=== PATIENT | female | born 1955 | race Caucasian/White ===

== ENCOUNTER 2018-01-06 14:58 | Outpatient (REF) | payer MEDICARE, SELFPAY ==
[2018-01-06 20:01] LABS: Cholesterol 143 mg/dL (50-200); HDL Cholesterol 53 mg/dL (40-60); LDL CHOLESTEROL 66 mg/dL (<100); TSH (W/Ref FT4) 0.36 uIU/mL (0.358-3.74); Triglyceride 160 mg/dL (30-150)
== END 2018-01-06 15:18 ==
LOC: NCHCN 14:58
PROVIDERS: PCP Family Medicine; Visit Provider Family Medicine
DX: E10.65 Type 1 diabetes mellitus with hyperglycemia (principal); E78.5 Hyperlipidemia, unspecified; E03.9 Hypothyroidism, unspecified
CPT/HCPCS: 80061; 83721; 84443

== ENCOUNTER 2018-04-26 16:31 | Outpatient (REF) | payer MEDICARE, SELFPAY ==
--- NOTE | 2018-04-26 14:45 | PAPFT_PTH ---
PATIENT: Roxann Baxter LOC: [facility] U#:[id number] AGE/SX: 62/F ROOM: RE04/26/[address]: Nayla Miramontes : 1955 BED: DIS: 04/26/2018 SPEC #: [id number] RECD: 04/26/18 18:27 STATUS: STAN RERajeev #: [id number] VINCE: 04/26/18 14:[address]: Nayla Miramontes [facility] Cytology RECD BY: Gale Funk Tissues: 1 - CX/ENDOCX FOR PAP SMEARS Procedures: PAP THIN PREP/UVM Screening HPV DNA PROBE Comments: [id number]
[2018-04-26 19:37] LABS: HCT 41.3 % (36.0-46.0); HGB 13.7 g/dL (12.0-15.5); Mean Corp. HGB Concentration 33.2 g/dL (32.0-36.0); Mean Corpuscular Hemoglobin 30.4 pg (27.0-33.0); Mean Corpuscular Volume 91.8 fL (80-95); Mean Platelet Volume 9.7 fL (8.0-11.0); Platelet Count 239 x1000/uL (130-400); White Blood Cell Count 5.14 k/cumm (4.4-10.8)
[2018-04-26 20:08] LABS: ALT 24 U/L (12-78); AST 19 U/L (15-37); Albumin 3.8 g/dL (3.4-5.0); Alkaline Phosphatase 52 U/L (46-116); Anion Gap 3.8 mmol/L (3-11); BUN 10 mg/dL (7-18); Bilirubin, Total 0.8 mg/dL (0.2-1.0); CO2 32.2 mmol/L (21.0-32.0); CREATININE 0.87 mg/dL (0.55-1.02); Calcium 8.8 mg/dL (8.5-10.1); Chloride 100 mmol/L (98-107); Ferritin 62 ng/mL (8-388); Folate 12.4 ng/mL (8.6-20.0); Glucose 245 mg/dL (70-100); Potassium 4.1 mmol/L (3.5-5.1); Sodium 136 mmol/L (136-145); TSH (W/Ref FT4) 1.43 uIU/mL (0.358-3.74); Total Protein 7.5 g/dL (6.4-8.2); Vitamin B12 714 pg/mL (193-986)
== END 2018-04-26 16:51 ==
LOC: NCHCN 16:31
PROVIDERS: PCP Family Medicine; Visit Provider Family Medicine
DX: I10 Essential (primary) hypertension (principal); D64.9 Anemia, unspecified; E10.65 Type 1 diabetes mellitus with hyperglycemia; G25.81 Restless legs syndrome; E03.9 Hypothyroidism, unspecified; Z12.4 Encounter for screening for malignant neoplasm of cervix; Z11.51 Encounter for screening for human papillomavirus (HPV)
CPT/HCPCS: 80053; 85027; 88142; 82607; 82728; 82746; 84443; 87624

== ENCOUNTER 2018-05-11 00:34 | Outpatient (CLI) | payer MEDICARE, SELFPAY ==
--- NOTE | 2018-05-11 16:32 | DI.MAMMO_ITS ---
SYMPTOM/DIAGNOSIS: SCREENING, Z12.39 MAMMOGRAMS: Mammograms were interpreted according to the usual protocol including computer analysis with CAD system, tomosynthesis and C view imaging. Comparison is made with exams from [id number]. The breasts are composed of scattered fibroglandular densities, breast density, Category B. No suspicious masses or suspicious microcalcifications are seen. There has been no significant change. IMPRESSION: Category 1, negative mammogram. Yearly screening mammography is recommended. [facility] ASSESSMENT OF FINDINGS: Negative. Category 1. Patient will receive a letter notifying them of these results. BI-RADS category B. There are scattered areas of fibroglandular density.
== END 2018-05-11 00:54 ==
PROVIDERS: PCP Family Medicine; Visit Provider Family Medicine
DX: Z12.31 Encounter for screening mammogram for malignant neoplasm of breast (principal)
CPT/HCPCS: 77063; 77067

== ENCOUNTER 2018-08-16 12:11 | Outpatient (REF) | payer MEDICARE, SELFPAY ==
[2018-08-16 13:50] LABS: COMMENT (LAB VIEW ONLY) 187.61 mg/dL; Microalb ug/mg Crea 6.3 ug/mg Cr
== END 2018-08-16 12:31 ==
LOC: NCHCN 12:11
PROVIDERS: PCP Family Medicine; Visit Provider Family Medicine
DX: E10.65 Type 1 diabetes mellitus with hyperglycemia (principal)
CPT/HCPCS: 82043; 82570

== ENCOUNTER 2019-04-05 18:25 | Outpatient (REF) | payer MEDICARE, SELFPAY ==
[2019-04-05 19:07] LABS: ALT 30 U/L (14-59); AST 23 U/L (15-37)
[2019-04-05 19:40] LABS: Hemoglobin A1C 8.8 % (3.8-5.6)
== END 2019-04-05 18:45 ==
LOC: NCHCN 18:25
PROVIDERS: PCP Family Medicine; Visit Provider Nurse Practitioner Psychiatric/Mental Health
DX: E10.65 Type 1 diabetes mellitus with hyperglycemia (principal); Z51.81 Encounter for therapeutic drug level monitoring
CPT/HCPCS: 83036; 84450; 84460

== ENCOUNTER 2019-11-04 18:05 | Outpatient (REF) | payer MEDICARE, SELFPAY ==
[2019-11-04 19:58] LABS: ALT 20 U/L (14-59); AST 18 U/L (15-37); Albumin 3.5 g/dL (3.4-5.0); Alkaline Phosphatase 49 U/L (46-116); Anion Gap 4.8 mmol/L (3-11); BUN 12 mg/dL (7-18); Bilirubin, Total 0.8 mg/dL (0.2-1.0); CO2 32.2 mmol/L (21.0-32.0); CREATININE 0.87 mg/dL (0.55-1.02); Chloride 102 mmol/L (98-107); Glucose 278 mg/dL (74-106); Potassium 4.9 mmol/L (3.5-5.1); Sodium 139 mmol/L (136-145); TSH (W/Ref FT4) 1.43 uIU/mL (0.36-3.74); Total Protein 6.5 g/dL (6.4-8.2)
[2019-11-04 19:59] LABS: COMMENT (LAB VIEW ONLY) 124.42 mg/dL; Microalb ug/mg Crea 15.8 ug/mg Cr
[2019-11-07 05:25] LABS: Vitamin D 25 Total 56.9 ng/ml (30-100)
== END 2019-11-04 18:25 ==
LOC: NCHCN 18:05
PROVIDERS: PCP Family Medicine; Visit Provider Family Medicine
DX: E10.65 Type 1 diabetes mellitus with hyperglycemia (principal); M54.5 Low back pain; E03.9 Hypothyroidism, unspecified; E55.9 Vitamin D deficiency, unspecified
CPT/HCPCS: 80053; 82306; 82043; 82570; 84443

== ENCOUNTER 2019-12-03 15:24 | Emergency (ER) | payer MEDICARE, SELFPAY ==
[2019-12-03 15:31] VITALS: BP 142/50; PULSE 72; RESP 16; TEMP 36.9; O2SAT 6
--- NOTE | 2019-12-03 15:49 | ED.GENADUL_ITS ---
Discharge Plan Disposition Patient Disposition: HOME Condition: Stable Discharge Details Chief Complaint: Orthopedic Clinical Impression: Sprain of fifth toe of right foot Primary Care Provider: Nayla Miramontes ED Provider: Albert Hurtado Home Meds and New Rx's Prescriptions: Continued polyethylene glycol 3350 [Miralax] 17 GM powder in packet 17 gm PO PRN PRNRF: 0 magnesium hydroxide [Milk of Magnesia] 400 MG/5 ML suspension 30 ml PO DAILY RF: 0 bisacodyl 10 MG suppository 10 mg RC PRN PRNRF: 0 celecoxib [Celebrex] 100 MG capsule 100 mg PO BID RF: 0 trimethobenzamide [Tigan] 300 MG capsule 300 mg PO QID RF: 0 Humalog U-100 Insulin 100 UNIT/1 ML cartridge RF: 0 cholecalciferol (vitamin D3) [Vitamin D3] 2,000 UNIT capsule 2,000 unit PO DAILY RF: 0 levothyroxine [Synthroid] 50 MCG tablet 175 mcg PO DAILY RF: 0 lisinopril 5 MG tablet 10 mg PO DAILY RF: 0 (DME) subcutaneous insulin pump [Insulin Pump OF1996] 1 EACH misc 1 units SQ DIRECTED RF: 0 gabapentin 400 MG capsule 600 mg PO DAILY RF: 0 Humalog U-100 Insulin 100 UNIT/ML cartridge 0 - 50 units SQ DIRECTED RF: 0 Glucagon Emergency Kit (human) 1 MG kit 1 mg IV PRN PRNRF: 0 Vitamin D3 (calcium cit-phos) 1 EACH tablet 2,000 units PO DAILY RF: 0 melatonin 3 MG tablet 9 mg PO HS RF: 0 ondansetron [Zofran ODT] 4 MG tablet,disintegrating 4 mg PO PRN PRNRF: 0 albuterol sulfate [ProAir HFA] 8.5 GM HFA aerosol inhaler 2 inh Inhalation Q4H PRN PRN (Reason: Wheezing) Qty: 1 RF: 0 Discharge Instructions Additional Instructions: Keep injured toe frida taped to adjacent toe to provide splinting. Minimize activities that cause pain. Please contact your primary care physician to arrange follow-up. Be sure to discuss results of your x-ray including incidentally noted peripheral arterial disease. Return to the ER for any worsening or new concerning symptoms. Referrals: Nayla Miramontes MD [Primary Care Provider] - Medical Decision Making 64-year-old female presents 1 day after stubbing her right fifth toe with pain and swelling. Tender at [facility]TP with bruising noted. Consider toe fracture versus sprain. Offered analgesic and patient declined. X-ray of the toe was reviewed and interpreted by radiology: No fracture or acute abnormality. Incidentally noted peripheral arterial disease. Results reviewed with the patient. Patient instructed to follow-up with PCP. Toe was frida taped to adjacent toe to provide splinting. HPI General Mode of arrival: ambulatory . Date/Time Provider Initiated Documentation: 12/03/19 15:45 . Limitations to Documentation: no limitations . Information obtained by: patient . HPI Narrative: 64-year-old female presents with chief complaint of toe pain. Pain is localized to right fifth toe. Patient notes yesterday she stubbed her toe when her foot slipped and impacted her car tire. Toe was throbbing this morning. She has associated discoloration of the toe and swelling. Pain is not worse with ambulation. Related Data Home Medications Medication Instructions Recorded Confirmed levothyroxine [Synthroid] 175 mcg PO DAILY 01/14/13 12/03/19 lisinopril 10 mg PO DAILY 01/14/13 12/03/19 subcutaneous insulin pump [Insulin 01/14/13 07/08/16 Pump [id number]] Glucagon Emergency Kit (human) 1 mg IV PRN PRN 01/18/13 12/03/19 Humalog U-100 Insulin 0 - 50 units SQ DIRECTED 01/18/13 12/03/19 Vitamin D3 (calcium cit-phos) 2,000 units PO DAILY 01/18/13 12/03/19 gabapentin 600 mg PO DAILY 01/18/13 12/03/19 melatonin 9 mg PO HS 09/27/13 12/03/19 ondansetron [Zofran ODT] 4 mg PO PRN PRN 09/27/13 12/03/19 Humalog U-100 Insulin 08/08/15 bisacodyl 10 mg RC PRN PRN supp.rect 08/08/15 12/03/19 celecoxib [Celebrex] 100 mg PO BID tab-cap 08/08/15 12/03/19 cholecalciferol (vitamin D3) 2,000 unit PO DAILY 08/08/15 12/03/19 [Vitamin D3] magnesium hydroxide [Milk of 30 ml PO DAILY ml 08/08/15 12/03/19 Magnesia] polyethylene glycol 3350 [Miralax] 17 gm PO PRN PRN gm 08/08/15 12/03/19 trimethobenzamide [Tigan] 300 mg PO QID tab-cap 08/08/15 12/03/19 albuterol sulfate [ProAir HFA] 2 inh INHALATION Q4H PRN PRN #1 07/12/16 12/03/19 [email or web address] Previous Rx's Medication Instructions Recorded albuterol sulfate [ProAir HFA] 2 inh INHALATION Q4H PRN PRN #1 07/12/16 [email or web address] Allergies Allergy/AdvReac Type Severity Reaction Status Date / Time No Known Allergies Allergy Unverified 12/03/19 15:34 General Stated Complaint: Orthopedic OLINDA: 4 Review of Systems Musculoskeletal Musculoskeletal: Reports as per HPI Integumentary/Breasts Skin/Breast: Reports other (No laceration) [facility] Surgical History section Social History Smoking/Tobacco Use Status: Former Tobacco Use Alcohol Intake: current Alcohol Intake frequency: holidays/special occasions only Drug use: Never Do you feel safe at home: Yes Do you feel safe in your relationship?: Yes Exam Const General: cooperative and no acute distress Neuro General: patient alert, patient awake and tone normal Extrem Right lower extremity: normal capillary refill and foot (Bruising 5th toe, mild swelling, no deformity) Details: tenderness Location: of another digit Location: the 5th digit (At [facility]TP and distally) Other: Right fifth: distal sensation intact distal motor intact Course Vital Signs Vital signs: Vital Signs Temperature 36.9 C 12/03/19 15:31 Pulse 72 12/03/19 15:31 Respiratory Rate 16 12/03/19 15:31 Blood Pressure 142/50 H 12/03/19 15:31 Pulse Oximetry 6 L 12/03/19 15:31 Temperature 36.9 C 12/03/19 15:31 Temperature Source Skin 12/03/19 15:31 Pulse 72 12/03/19 15:31 Respiratory Rate 16 12/03/19 15:31 Respiratory Effort Non-Labored 12/03/19 15:33 Blood Pressure 142/50 H 08/29/20 15:31 Blood Pressure Position Sitting 12/03/19 15:31 Pulse Oximetry 6 L 12/03/19 15:31 Oxygen Delivery Method Room Air 12/03/19 15:31 Oxygen Flow Rate 0 12/03/19 15:31 Pain Level 7 12/03/19 15:38
--- NOTE | 2019-12-03 15:55 | DI.RAD_ITS ---
EXAM: XR FOOT RT COMPLETE CLINICAL HISTORY: 5th toe. TECHNIQUE: 2D digital imaging was performed. COMPARISON: No exams were available for comparison FINDINGS: BONES: No acute fracture is present. No bony destructive lesion is seen. JOINTS: No dislocation present. SOFT TISSUE: Vascular calcification. IMPRESSION: No acute fracture or dislocation. DATA REPOSITORY: RADIATION DOSE DELIVERED:
--- NOTE | 2019-12-03 16:08 | DI.VRAD_ITS ---
PROCEDURE INFORMATION: Exam: XR Right Foot Complete Exam date and time: 12/03/2019 3:55 PM Age: 64 years old Clinical indication: Other: 5th toe; Additional info: Patient stubbed 5th toe on tire late yesterday. Pain, red and bruising on 5th toe TECHNIQUE: Imaging protocol: XR Right foot. Views: 3 or more views. COMPARISON: No relevant prior studies available. FINDINGS: Bones/joints: Normal mineralization and alignment. No fracture, degenerative spur, osseous erosion or other deformity. Soft tissues: Normal. Vasculature: Peripheral vascular calcification. IMPRESSION: No fracture or acute abnormality. Incidentally noted peripheral arterial disease. Dictated and Authenticated by: Gregg Boo MD. Ordering:LULA Price MD
== END 2019-12-03 16:36 | disposition home or self-care (01) ==
PROVIDERS: Emergency Provider Student in an Organized Health Care Education/Training Program; PCP Family Medicine
DX: S93.524A Sprain of metatarsophalangeal joint of right lesser toe(s), initial encounter (principal); W22.09XA Striking against other stationary object, initial encounter
CPT/HCPCS: 99283; 73630

== ENCOUNTER 2020-03-14 18:12 | Outpatient (REF) | payer MEDICARE, SELFPAY ==
[2020-03-17 10:00] LABS: COVID-19 RT-PCR Result NEGATIVE (Negative)
== END 2020-03-14 18:32 ==
LOC: NCHCN 18:12
PROVIDERS: PCP Family Medicine; Visit Provider Physician Assistant
DX: Z20.828 Contact with and (suspected) exposure to other viral communicable diseases (principal)
CPT/HCPCS: U0003

== ENCOUNTER 2020-05-02 16:36 | Outpatient (REF) | payer MEDICARE, SELFPAY ==
[2020-05-02 20:19] LABS: TSH (W/Ref FT4) 4.75 uIU/mL (0.36-3.74)
[2020-05-02 20:42] LABS: FREE T4 1.02 ng/dL (0.76-1.46)
== END 2020-05-02 16:56 ==
LOC: NCHCN 16:36
PROVIDERS: PCP Family Medicine; Visit Provider Family Medicine
DX: E03.9 Hypothyroidism, unspecified (principal)
CPT/HCPCS: 84439; 84443

== ENCOUNTER 2021-02-06 15:26 | Outpatient (REF) | payer MEDICARE, SELFPAY ==
[2021-02-08 14:24] LABS: COVID-19 RT-PCR UVMMC Result Negative (Negative)
== END 2021-02-06 15:27 | disposition home or self-care (01) ==
LOC: NCHCN 15:26
PROVIDERS: PCP Family Medicine; Visit Provider Family Medicine
DX: Z20.822 Contact with and (suspected) exposure to COVID-19 (principal); J06.9 Acute upper respiratory infection, unspecified
CPT/HCPCS: U0003; U0005

== ENCOUNTER → 2021-06-27 02:35 | Outpatient (CLI) | payer MEDICARE, SELFPAY | PROVIDERS: PCP Family Medicine; Visit Provider Family Medicine ==

== ENCOUNTER → 2021-09-06 00:02 | Outpatient (CLI) | payer MEDICARE, SELFPAY | PROVIDERS: PCP Family Medicine; Visit Provider Family Medicine ==

== ENCOUNTER 2021-11-01 17:48 | Outpatient (REF) | payer MEDICARE, SELFPAY | END 2021-11-01 17:49 | disposition home or self-care (01) | LOC: LBN 17:48 | PROVIDERS: PCP Family Medicine; Visit Provider Family Medicine ==

== ENCOUNTER → 2021-12-19 02:23 | Outpatient (CLI) | payer MEDICARE, SELFPAY ==
--- NOTE | 2021-12-19 | DI.DEXA_ITS ---
Exam(s) XR DEXA BONE DENSITY W/WO DAYANA EXAM: XR DEXA BONE DENSITY W/WO DAYANA CLINICAL HISTORY: SCREENING FOR OSTEOPOROSIS IN POSTMENOPAUSAL WOMAN, Z78.0 TECHNIQUE: COMPARISON: No exams were available for comparison FINDINGS: Lateral Spine Image: Unremarkable. No compression deformities identified. Left hip: Total T-Score: -0.4 Total Z-Score: 0.9 T- and Z-scores: Within normal limits. Lumbar Spine: Total T-Score: 0.2 Total Z-Score: 2.1 T- and Z-scores: Within normal limits. IMPRESSION: No evidence of osteoporosis.
== END ==
PROVIDERS: PCP Family Medicine; Visit Provider Family Medicine
DX: Z78.0 Asymptomatic menopausal state (principal); Z13.820 Encounter for screening for osteoporosis
CPT/HCPCS: 77080

== ENCOUNTER → 2021-12-20 00:45 | Outpatient (CLI) | payer MEDICARE, SELFPAY ==
--- NOTE | 2021-12-20 14:45 | DI.MAMMO_ITS ---
Exam(s) MAMMO SCREENING EXAM: MAMMO SCREENING CLINICAL HISTORY: SCREENING, Z12.39. TECHNIQUE: Bilateral full field digital CC and MLO mammographic images were obtained with 3D tomosyn thesis and utilizing computer aided detection (CAD). COMPARISON: Prior mammograms were reviewed, the most recent being May 2018. FINDINGS: There has been no significant change appearance and distribution of the fibroglandular tissue. Asymmetric tissue in both breasts remains unchanged from prior studies. There are no new spiculated masses nor malignant appearing microcalcification groups. There is no significant architectural distortion nor skin thickening-retraction. IMPRESSION: No radiographic evidence of malignancy. BI-RADS Category 1 - Negative Breast Density - Category B - Scattered areas of fibroglandular density Breast density Category C or D implies that the patient has dense breast tissue. Dense breast tissue can make it harder to find cancer on a mammogram. Dense breast tissue is also associated with an incr eased risk of breast cancer. This information about the result of the mammogram report was provided to the patient to raise their awareness. Use this report when you speak with the patient about their risks for breast cancer, which includes their family history. At that time, you may recommend additional screening tests (Ultrasoun d or MRI) as these tests may add significant information. A negative radiographic report should not delay biopsy if a dominant or clinically suspicious mass is present. Up to ten percent of cancers are not identified on mammography. A negative report may reinforce clinical impression. Adenosis and dense breasts may obscure an underlying neoplasm. False positive reports average 6 to 10%. Patient will receive a letter notifying them of these results.
== END ==
PROVIDERS: PCP Family Medicine; Visit Provider Family Medicine
DX: Z12.31 Encounter for screening mammogram for malignant neoplasm of breast (principal); R92.8 Other abnormal and inconclusive findings on diagnostic imaging of breast; Z78.0 Asymptomatic menopausal state
CPT/HCPCS: 77063; 77067

== ENCOUNTER 2022-01-03 15:18 | Outpatient (REF) | payer MEDICARE, SELFPAY ==
[2022-01-03 20:35] LABS: TSH (W/Ref FT4) 0.04 uIU/mL (0.36-3.74)
[2022-01-03 21:31] LABS: FREE T4 1.37 ng/dL (0.76-1.46)
[2022-01-06 10:20] LABS: HIV-1/2 Ag & Ab Screen Negative (Negative)
== END 2022-01-03 15:19 | disposition home or self-care (01) ==
LOC: NCHCN 15:18
PROVIDERS: PCP Family Medicine; Visit Provider Family Medicine
DX: E03.9 Hypothyroidism, unspecified (principal); Z11.4 Encounter for screening for human immunodeficiency virus [HIV]
CPT/HCPCS: 87389; 84439; 84443

== ENCOUNTER 2022-01-26 14:40 | Emergency (ER) | payer MEDICARE, SELFPAY ==
[2022-01-26 14:46] VITALS: BP 185/61; PULSE 78; RESP 22; TEMP 36.4; O2SAT 99
[2022-01-26 15:13] VITALS: RESP 20
[2022-01-26 15:14] LABS: Bilirubin Negative (Negative); Blood Negative (Negative); Clarity Clear (Clear); Glucose Negative (Negative); Ketones Negative (Negative); Leukocyte Esterase Negative (Negative); Nitrite Negative (Negative); Specific Gravity >= 1.030 (1.005-1.025); Urobilinogen 0.2 EU/dL (Up TO 0.2); pH 6.5 (5-8)
--- NOTE | 2022-01-26 15:15 | DI.RAD_ITS ---
Exam(s) XR PORTABLE CHEST AP EXAM: XR PORTABLE CHEST AP CLINICAL HISTORY: cough, confusion, + COv19. TECHNIQUE: 2D digital imaging was performed. COMPARISON: CR CHEST 2 VIEWS PA,LAT from 07/08/2016 FINDINGS: Single AP portable view. Heart size is upper normal. The mediastinum is not widened. Lungs are clear. No infiltrates nor obvious pleural effusions. Scoliosis again noted. IMPRESSION: No acute pulmonary findings on this single AP portable view of the chest. DATA REPOSITORY: RADIATION DOSE DELIVERED:
--- NOTE | 2022-01-26 15:18 | ED.GENADUL_ITS ---
Discharge Plan Disposition Patient Disposition: HOME Condition: Improving Discharge Details Clinical Impression: Viral syndrome, Acute dehydration Primary Care Provider: Nayla Miramontes ED Provider: Darryl Hope Home Meds and New Rx's Prescriptions: Continued polyethylene glycol 3350 [Miralax] 17 GM powder in packet 17 gm PO PRN PRN magnesium hydroxide [Milk of Magnesia] 400 MG/5 ML suspension 30 ml PO DAILY bisacodyl 10 MG suppository 10 mg RC PRN PRN Label Comments: pt has not used in a while 06/13/16 celecoxib [Celebrex] 100 MG capsule 100 mg PO BID trimethobenzamide [Tigan] 300 MG capsule 300 mg PO QID Label Comments: takes as PRN Humalog U-100 Insulin 100 UNIT/1 ML cartridge Label Comments: on pump cholecalciferol (vitamin D3) [Vitamin D3] 2,000 UNIT capsule 2,000 unit PO DAILY levothyroxine [Synthroid] 50 MCG tablet 175 mcg PO DAILY Label Comments: 01/18/13 per pt takes 150mcg mon,fri.JW lisinopril 5 MG tablet 10 mg PO DAILY (DME) subcutaneous insulin pump [Insulin Pump [id number]] 1 EACH misc 1 units SQ DIRECTED Label Comments: humalog insulin in pump- basal rate varies t/o the day. continous infusion with bolus based on sliding. gabapentin 400 MG capsule 600 mg PO DAILY Humalog U-100 Insulin 100 UNIT/ML cartridge 0 - 50 units SQ DIRECTED Label Comments: insulin is on a pump Glucagon Emergency Kit (human) 1 MG kit 1 mg IV PRN PRN Label Comments: 06/13/16- pt has never used. Vitamin D3 (calcium cit-phos) 1 EACH tablet 2,000 units PO DAILY melatonin 3 MG tablet 9 mg PO HS ondansetron [Zofran ODT] 4 MG tablet,disintegrating 4 mg PO PRN PRN albuterol sulfate [ProAir HFA] 8.5 GM HFA aerosol inhaler 2 inh Inhalation Q4H PRN PRN (Reason: Wheezing) Qty: 1 0RF Discharge Instructions Instructions: Dehydration (ED), Viral Syndrome (ED) Additional Instructions: Home to rest. Small, frequent sips of fluids to maintain hydration. May use the provided Zofran as needed for persistent nausea. Return to the ER for any acute concern Medical Decision Making This is a 66-year-old female who presents from home with greater than 1 week of cough, congestion, malaise, generalized weakness. She was diagnosed with COVID- 19 at home. She completed a 5 course of Paxlovid yesterday. Today she felt ge nerally confused and weak. She did not have any syncope but felt lightheadedness when arising from a seated position. She arrives to the ER with blood pressure 185/60, pulse of 78, 99% on room air a nd afebrile. Cough and few scattered rhonchi are noted during her exam. Differential diagnosis includes dehydration, electrolyte abnormalities, pneumonitis, recurrent COVID. Patient IV access established, given fluid bolus, antiemetic, acetaminophen. Laboratories noted white count 6, hematocrit 39, platelets 326. Chemistries reassuring, glucose 123, urinalysis shows specific gravity of 1.03. Chest x-ray without pulmonary infiltrate. Following fluids and medications patient has significant improvement. Her bedside COVID test was negative. Discussed with her findings and her improvement and response to therapy. She states that Zofran helped her nausea she would wish to have some for home. She is stable and improved HPI General Mode of arrival: ambulatory . Date/Time Provider Initiated Documentation: 01/26/22 14:48 . Limitations to Documentation: no limitations . Information obtained by: patient . History of Present Illness 66 year old F presents to the emergency department with the chief complaint of Can confused, weakness, persistent cough with COVID diagnosis last week, described as mild and moderate, and is localized to the head and chest. Patient reports no radiation. Patient started experiencing this day(s) and it has been intermittent. No relieving factors improve symptom(s), No exacerbating factors reported . Patient notes confusion, cough, fever/chills, loss of appetite, malaise, weakness and other (Diarrhea). Patient did receive the following treatments prior to arrival, none Related Data Home Medications Medication Instructions Recorded Confirmed levothyroxine 50 mcg tablet 175 mcg PO DAILY 01/14/13 12/03/19 (Synthroid) lisinopril 5 mg tablet 10 mg PO DAILY 01/14/13 12/03/19 subcutaneous insulin pump (Insulin 01/14/13 07/08/16 Pump [id number]) calcium b no.1-vit [id number] 2,000 units PO DAILY 01/18/13 12/03/19 120 mg-1,000 unit-10 mg tablet (Vitamin D3 (with calcium cit-phos)) gabapentin 400 mg capsule 600 mg PO DAILY 01/18/13 12/03/19 glucagon (human recombinant) 1 mg 1 mg IV PRN PRN 01/18/13 12/03/19 injection kit (Glucagon Emergency Kit (human-recomb)) insulin lispro 100 unit/mL 0 - 50 units SQ DIRECTED 01/18/13 12/03/19 subcutaneous cartridge (Humalog U-100 Insulin) melatonin 3 mg tablet 9 mg PO HS 09/27/13 12/03/19 ondansetron 4 mg disintegrating 4 mg PO PRN PRN 09/27/13 12/03/19 tablet (Zofran ODT) bisacodyl 10 mg rectal suppository 10 mg RC PRN PRN 08/08/15 12/03/19 celecoxib 100 mg capsule (Celebrex) 100 mg PO BID 08/08/15 12/03/19 cholecalciferol (vitamin D3) 50 2,000 unit PO DAILY 08/08/15 12/03/19 mcg (2,000 unit) capsule (Vitamin D3) insulin lispro 100 unit/mL 08/08/15 subcutaneous cartridge (Humalog U-100 Insulin) magnesium hydroxide 400 mg/5 mL 30 ml PO DAILY 08/08/15 12/03/19 oral suspension (Milk of Magnesia) polyethylene glycol 3350 17 gram 17 gm PO PRN PRN 08/08/15 12/03/19 oral powder packet (Miralax) trimethobenzamide 300 mg capsule 300 mg PO QID 08/08/15 12/03/19 (Tigan) albuterol sulfate 90 mcg/actuation 2 inh inhalation Q4H PRN PRN 07/12/16 12/03/19 aerosol inhaler (ProAir HFA) Wheezing ##1 Previous Rx's Medication Instructions Recorded albuterol sulfate 90 mcg/actuation 2 inh inhalation Q4H PRN PRN 07/12/16 aerosol inhaler (ProAir HFA) Wheezing ##1 Allergies Allergy/AdvReac Type Severity Reaction Status Date / Time No Known Allergies Allergy Unverified 01/26/22 14:57 General Stated Complaint: GenMedical OLINDA: 3 Review of Systems Narrative: See HPI, positive cough, malaise, weakness, lightheaded. No syncope. Nauseated without vomiting. [place] mildly confused at home. Sick systems were reviewed and otherwise negative. Patient finished a course of antiviral for her COVID. PFSH All Active Problems (Updated 01/26/22 @ 16:58 by Darryl Hope MD) Diabetic ketoacidosis (Acute) Type 1 diabetes mellitus (Acute) Psoriatic arthritis (Acute) Hypertension (Acute) Community acquired pneumonia (Acute) Depression (Acute) Microcytosis (Acute) Neuropathy (Acute) Acute purulent bronchitis (Acute) Viral syndrome (Acute) Acute dehydration (Acute) Surgical History section Social History Smoking/Tobacco Use Status: Never Smoking risk assessment performed?: Yes Alcohol Intake: current Alcohol Intake frequency: holidays/special occasions only Drug use: Never Do you feel safe at home: Yes Do you feel safe in your relationship?: Yes Exam Narrative Exam Narrative: GEN: awake, alert, oriented 3. Pleasant, well groomed, interactive. HEAD: Normocephalic, atraumatic ENT: Mucous membranes moist, oropharynx unremarkable, External ear exam unremarkable EYES: PERRL, EOMI NECK: Full ROM, no LISBETH, no menigismus CHEST/RESP: Nontender, few scattered rhonchi at the bases, otherwise clear to auscultation bilaterally, cough is noted during exam. CARDIOVASCULAR: RRR, no murmur, rub haydee. 2+ Rad pulse bilateral ABDOMEN: Soft, nontender, no mass. +Bowel sounds EXT: Full ROM, no edema, no rash Neuro: Grossly normal neurologic exam, conversant, interactive. Psych: Speech fluent, thoughts congruent, affect normal Course Vital Signs Vital signs: Vital Signs Temperature 36.4 C L 01/26/22 14:46 Pulse 78 01/26/22 14:46 Respiratory Rate 22 01/26/22 14:46 Blood Pressure 185/61 H 01/26/22 14:46 Pulse Oximetry 99 01/26/22 14:46 Temperature 36.4 C L 01/26/22 14:46 Temperature Source Temporal Artery Scan 01/26/22 14:46 Pulse 78 01/26/22 14:46 Respiratory Rate 20 01/26/22 15:13 Respiratory Effort 01/26/22 15:13 Respiratory Depth Normal 01/26/22 15:13 Respiratory Pattern Normal 01/26/22 15:13 Blood Pressure 185/61 H 01/26/22 14:46 Pulse Oximetry 99 01/26/22 14:46 Oxygen Delivery Method Room Air 01/26/22 14:46 Oxygen Flow Rate 0 01/26/22 14:46 Pain Level 5 01/26/22 14:46 Lab/Test Results Lab/Test Results: Laboratory Tests Range/Units 01/26/22 15:00 Urine Color (Yellow) Yellow Urine Clarity (Clear) Clear Urine pH (5-8) 6.5 Ur Specific [place] (1.005-1.025) >= 1.030 H Urine Protein (Negative) mg/dL 100 H Urine Ketones (Negative) mg/dL Negative Urine Blood (Negative) Negative Urine Nitrite (Negative) Negative Urine Bilirubin (Negative) Negative Urine Urobilinogen (Up TO 0.2) EU/dL 0.2 Ur Leukocyte Esterase (Negative) Negative Urine Glucose (Negative) mg/dL Negative
[2022-01-26 15:38] LABS: Abs Immature Grans 0.02 10^3/uL (0.0-0.06); Absolute Basophil Count 0.02 10^3/uL (0.0-0.2); Absolute Eosinophil Count 0.09 10^3/uL (0.0-0.7); Absolute Lymphocyte Count 1.51 10^3/uL (1.2-3.4); Absolute Neutrophil Count 4.13 10^3/uL (1.2-6.7); Basophils % 0.3; Eosinophils % 1.5; HCT 39.7 % (36.0-46.0); HGB 13.2 g/dL (11.2-15.7); Immature Grans % 0.3; Lymphocytes % 24.5; MCH 29.1 pg (27.0-33.0); MCHC 33.2 % (32.0-36.0); MCV 87 fL (80-95); MPV 8.7 fL (8.0-11.0); Monocytes % 6.5; Neutrophils % 66.9; Platelet Count 326 10^3/uL (130-400); RBC 4.54 10^6/uL (3.93-5.22); RDW 12.4 % (11.7-14.6); RDW-SD 39.5 fL; WBC 6.17 10^3/uL (4.4-10.8)
[2022-01-26] MEDS: Ondansetron 4 MG/2 ML VIAL IVP (15:50)
[2022-01-26 15:51] LABS: Bacteria Few HPF (Negative); C & S Indicated? No; Crystals Negative HPF (Negative); Epithelial Cells Few HPF (Negative); Mucus Negative (Negative); RBC 0-2 HPF (0-2); WBC 0-2 HPF (0-5)
[2022-01-26] MEDS: ACETAMINOPHEN 1,000 MG/100 ML BTL 400 MG IVPB (15:55)
[2022-01-26 16:04] LABS: ALT 36 U/L (14-59); AST 24 U/L (15-37); Albumin 3.7 g/dL (3.4-5.0); Alkaline Phosphatase 62 U/L (46-116); Anion Gap 6.7 mmol/L (3-11); BUN 18 mg/dL (7-18); Bilirubin, Total 0.3 mg/dL (0.2-1.0); CO2 31.3 mmol/L (21.0-32.0); CREATININE 0.8 mg/dL (0.55-1.02); Chloride 104 mmol/L (98-107); Estimated GFR 81.21 (mL/min/1.73m2); Glucose 123 mg/dL (74-106); Magnesium 1.8 mg/dL (1.8-2.4); Potassium 3.9 mmol/L (3.5-5.1); Sodium 142 mmol/L (136-145); Total Protein 7.3 g/dL (6.4-8.2)
[2022-01-26] MEDS: Normal Saline 1,000 ML 1000 ML IV (16:18)
--- NOTE | 2022-01-26 16:38 | DI.VRAD_ITS ---
PROCEDURE INFORMATION: Exam: XR Chest Exam date and time: 01/26/2022 3:49 PM Age: 66 years old Clinical indication: Patient HX: Cough, confusion, + cov19 TECHNIQUE: Imaging protocol: Radiologic exam of the chest. Views: 1 view. COMPARISON: CR CHEST 2 VIEWS PA,LAT 07/08/2016 9:37 PM FINDINGS: Lungs: Minor right lower lobe and left mid lung field ill-defined increased interstitial markings. Possibility of a mild interstitial pneumonitis such as that caused by COVID-19 can not be excluded. A CT chest without contrast would provide higher sensitivity evaluation if there is clinical indication for additional imaging. Pleural spaces: No pleural effusion. Heart/Mediastinum: Normal heart size. Bones/joints: Thoracic spine degeneration and moderate dextroscoliosis IMPRESSION: 1. Ill-defined mild increased interstitial markings right lower lobe and left mid lung field. Can not exclude vague ground-glass infiltrative features related to COVID-19 pneumonia. 2. No pleural effusion. 3. Dextroscoliosis of the thoracic spine. Dictated and Authenticated by: Jorgito Escobar MD. Ordering:JANICE Andrews MD
[2022-01-26 17:06] VITALS: BP 169/52; PULSE 96; RESP 12; O2SAT 98
== END 2022-01-26 17:18 | disposition home or self-care (01) ==
PROVIDERS: Emergency Provider Emergency Medicine; PCP Family Medicine
DX: B34.9 Viral infection, unspecified (principal); E86.0 Dehydration; Z86.16 Personal history of COVID-19; Z20.822 Contact with and (suspected) exposure to COVID-19
CPT/HCPCS: 36416; 80053; 82962; 96361; 96374; 96375; 99284; 71045; 81003; 81015; 83735; 85025; J0131; J2405

== ENCOUNTER 2022-05-12 15:51 | Outpatient (REF) | payer MEDICARE, SELFPAY ==
[2022-05-13 08:33] LABS: TSH (W/Ref FT4) 0.06 uIU/mL (0.36-3.74)
[2022-05-13 08:50] LABS: FREE T4 1.29 ng/dL (0.76-1.46)
== END 2022-05-12 15:52 | disposition home or self-care (01) ==
LOC: NCHCN 15:51
PROVIDERS: PCP Family Medicine; Visit Provider Family Medicine
DX: E03.9 Hypothyroidism, unspecified (principal)
CPT/HCPCS: 84439; 84443

== ENCOUNTER 2022-07-25 16:33 | Outpatient (REF) | payer MEDICARE, SELFPAY ==
[2022-07-25 18:16] LABS: Hemoglobin A1C 8.4 % (<5.7)
[2022-07-25 18:18] LABS: COMMENT (LAB VIEW ONLY) 102.13 mg/dL; Microalb ug/mg Crea 22.3 ug/mg Cr
[2022-07-25 18:24] LABS: FREE T4 1.02 ng/dL (0.76-1.46); TSH (W/Ref FT4) 3.53 uIU/mL (0.36-3.74)
== END 2022-07-25 16:34 | disposition home or self-care (01) ==
LOC: NCHCN 16:33
PROVIDERS: PCP Family Medicine; Visit Provider Family Medicine
DX: E03.9 Hypothyroidism, unspecified (principal); E10.65 Type 1 diabetes mellitus with hyperglycemia
CPT/HCPCS: 82043; 82570; 83036; 84439; 84443

== ENCOUNTER 2023-09-16 16:27 | Outpatient (REF) | payer MEDICARE, SELFPAY ==
[2023-09-16 19:56] LABS: HCT 42.9 % (36.0-46.0); MCH 29.9 pg (27.0-33.0); MCHC 32.6 % (32.0-36.0); MCV 92 fL (80-95); MPV 9.5 fL (8.0-11.0); Platelet Count 304 10^3/uL (130-400); RBC 4.68 10^6/uL (3.93-5.22); RDW 12.7 % (11.7-14.6); RDW-SD 42.3 fL; WBC 5.33 10^3/uL (4.4-10.8)
[2023-09-16 20:18] LABS: Anion Gap 4.8 mmol/L (3-11); BUN 19 mg/dL (7-18); CO2 34.2 mmol/L (21.0-32.0); CREATININE 1.1 mg/dL (0.55-1.02); Calcium 9.5 mg/dL (8.5-10.1); Chloride 104 mmol/L (98-107); Estimated GFR 54.73 (mL/min/1.73m2); Glucose 107 mg/dL (74-106); Potassium 4.7 mmol/L (3.5-5.1); Sodium 143 mmol/L (136-145); TSH (W/Ref FT4) 2.26 uIU/mL (0.36-3.74)
== END 2023-09-16 16:28 | disposition home or self-care (01) ==
LOC: NCHCN 16:27
PROVIDERS: PCP Family Medicine; Visit Provider Family Medicine
DX: E03.9 Hypothyroidism, unspecified (principal); I10 Essential (primary) hypertension
CPT/HCPCS: 80048; 85027; 84443

== ENCOUNTER → 2023-09-17 11:44 | Outpatient (CLI) | payer MEDICARE, SELFPAY ==
--- NOTE | 2023-09-17 | DI.US_ITS ---
Exam(s) US LOWER EXTREMITY VENOUS LT EXAM: US LOWER EXTREMITY VENOUS LT CLINICAL HISTORY: SWELLING LT LOWER LEG,R22.42 TECHNIQUE: Left lower extremity venous ultrasound performed using grayscale, color-flow, and spectra l Doppler analysis. COMPARISON: No exams were available for comparison FINDINGS: The left common femoral, femoral and popliteal veins demonstrate normal compressibility, augmentation , and color Doppler. The posterior tibial and peroneal veins are patent. The saphenofemoral junction is unremarkable. There is no evidence of a [place] cyst. The soft tissues are unremarkable. IMPRESSION: No evidence of a left lower extremity DVT. DATA REPOSITORY:
== END ==
PROVIDERS: PCP Family Medicine; Visit Provider Family Medicine
DX: R22.42 Localized swelling, mass and lump, left lower limb (principal)
CPT/HCPCS: 93971

== ENCOUNTER → 2023-09-28 20:01 | Outpatient (CLI) | payer MEDICARE, SELFPAY ==
--- NOTE | 2023-09-28 | DI.RAD_ITS ---
Exam(s) XR CHEST 2V PA LATERAL EXAM: XR CHEST 2V PA LATERAL CLINICAL HISTORY: COUGH X 11 DAYS, R05.9, SUBJECTIVE FEVERS, SHORTNESS OF BREATH TECHNIQUE: 2D digital imaging was performed of the chest. Two images were obtained. PA and lateral views were obtained. COMPARISON: CR,XR XR PORTABLE CHEST AP from 01/26/2022 FINDINGS: MEDIASTINUM: Normal. HEART: Normal. PULMONARY VASCULATURE: Normal. LUNGS: Clear. PLEURAL SPACE: No pleural effusion or pneumothorax. BONE:Within normal limits for the patient's age. There is a right convex thoracic scoliosis. OTHER FINDINGS:Normal. IMPRESSION: No acute pulmonary findings. DATA REPOSITORY: RADIATION DOSE DELIVERED:
== END ==
PROVIDERS: PCP Family Medicine; Visit Provider Nurse Practitioner Family
DX: R05.9 Cough, unspecified (principal); R06.02 Shortness of breath
CPT/HCPCS: 71046

== ENCOUNTER 2024-03-07 18:53 | Outpatient (REF) | payer MEDICARE, SELFPAY ==
--- OUTSIDE RECORDS SUMMARY | 2024-03-07 18:55 | XMS_ITS | Encounter Summary ---
Author Organization [facility] [place] [address] Care Team Providers Care Potato Peeler Name Role Phone Nayla Miramontes MD Primary Care Provider [phone] Encounter Details Date Type Department Care Team (Late Contact Info) Description 09/16/2022 Telephone [place] [phone] Alcides Bonilla MD [facility] [place] [address] Social History Tobacco Use Types Packs/Day Years Used Date Smoking Tobacco: Former Cigarettes Q uit: 05/06/1984 Smokeless Tobacco: Never Alcohol Use Standard Drinks/Week Comments Yes 3 (1 standard drink = 0.6 oz pur e alcohol) Sex and Gender Information Value Date Recorded Sex Assigned at Not on file Gender Identity Not on file Sexual Orientation Not on file documented as of this encounter Miscellaneous Notes * Telephone Encounter - Alcides Bonilla MD - 09/16/2022 10:54 AM EDT Called to go over scope results - left message documented in this encounter Plan of Treatment Upcoming Encounters Date Type Department Care Team (Late Contact Info) Description 05/17/2024 2:30 PM EST Office Visit [place] [phone] Alcides Bonilla MD [facility] [place] [address] 04/06/2049 9:00 AM EST Hospital Encounter [place] [phone] Harry Guerrero MD [facility] [place] [address] documented as of this encounter Visit Diagnoses Not on filedocumented in this encounter Care Teams Potato Peeler Relationship Specialty Start Date End Date Nayla Miramontes MD [facility] ANABELLA LÓPEZ [facility] [address] [place] [address] PCP - General Family Medicine 05/11/21 documented as of this encounter
--- OUTSIDE RECORDS SUMMARY | 2024-03-07 18:55 | XMS_ITS | Encounter Summary ---
Author Organization [facility] [place] [address] Care Team Providers Care Det[employer]er [employer]aceuticals Name Role Phone Nayla Miramontes MD Primary Care Provider [phone] Encounter Details Date Type Department Care Team (Late st Contact Info) Description 01/22/2024 3:00 PM EDT Office [place] [address] Lianet Price APRN [facility] [place] [address] Type 1 diabetes mellitus with hyperglycemia; Insulin pump in place Social History Tobacco Use Types Packs/Day Years Used Date Smoking Tobacco: Former Cigarettes Q uit: 05/06/1984 Smokeless Tobacco: Never Alcohol Use Standard Drinks/Week Comments Yes 3 (1 standard drink = 0.6 oz pur e alcohol) Sex and Gender Information Value Date Recorded Sex Assigned at Not on file Gender Identity Not on file Sexual Orientation Not on file documented as of this encounter Last Filed Vital Signs Vital Sign Reading Time Taken Comments Blood Pressure 150/48 01/22/2024 2:32 PM EDT Pulse 85 01/22/2024 2:32 PM EDT Temperature 36.3 ??C (97.4 ??F) 01/22/2024 2:32 PM ED T Respiratory Rate 16 01/22/2024 2:32 PM EDT Oxygen Saturation 97% 01/22/2024 2:32 PM EDT Inhaled Oxygen Concentration - - Weight 95.1 kg (209 lb 9.6 oz) 01/22/2024 2:32 P M EDT Height 167.6 cm (5' 6) 01/22/2024 2:32 PM EDT Body Mass Index 33.83 01/22/2024 2:32 PM EDT documented in this encounter Patient Instructions * Patient Instructions* Lianet Price APRN - 01/22/2024 3:00 PM EDT Current pump - change carb ratio at lunch to reduce lows post lunch 8 to 9. Dexcom G6 reordered again today. Gives flexibility for pump devices. Tandem Tslim with control IQ is tubing - contact company to re-start process - I will reach out to them and see if I can have someone walk you through the process. mail line [phone]. The traincarmencita Myers and she will train you when it arrive. Plan a visit with me 1-2 weeks after starting. Thyroid-125mcg on m, w, f, sat. 150 sun, Thursday, . Your PCP has been helping manage this. Talk with Dr. Hernandez about your weight and options. Go get labs 3L today or right before alyssa. Schedule 3 month follow-up to continue to work on pump start. documented in this encounter Progress Notes * Lianet Price APRN - 01/22/2024 3:00 PM EDT Images from the original note were not included. Name: Roxann Baxter : 1955 PCP: Nayla Miramontes MD Date: 01/22/24 Reason for visit: Roxann Baxter is a 68 y.o. year old female with Diabetes for follow-up [facility] endocrine clinic for diabetes services. This is a 68 yo female with type 1 diabetes Diagnosed age 16 and A1c generally above target. Notable medical comorbidities: hypothyroid (TSH currently in range with treatment), gastroparesis, proliferative retinopathy, HTN, psoriatic arthritis, BMI >30, depression. Last visit one year ago -She has been managing with samia and medtronic (warranty up) and she wouldlike to shift and we spent the visit looking at each of the devices and determining best fit. Prescribed dexcom today and may need durable medical good company but will wait to hear from pharmacy. Also provided tandem info for her to start process of new pump order. She plan to go on a tandem control IQ tslim pump. In the meantime, changes were made to her current settings to get more insulin with meals and less for correction. Patient was seen one year ago with me and no showed for November. Seen with Dr. Hernandez prior. Today Dexcom 6 getting [facility] drugs. Off for one month and using samia in between. Still interested in tandem pump. She says she Needs to figure out how to get it paid for. But she really wants to shift. She is interested in weight loss but has avoided GLP drugs in past with gastroporesis. Last 3 Hemoglobin A1Cs Lab Results Component Value Date HA1C 8.2 (H) 12/05/2022 HA1C 8.2 (H) 08/26/2022 HA1C 7.6 (H) 08/01/2021 Diabetes Diagnosis Date: 1972 Medication Regimen for Diabetes Care: Humalog in pump Pump Medtronic 630G pump. Started: she is unsure of date - several years ago She reports on a pump since 1997 or 1998 Using [employer] for supplies Sites: Basal rates: Midnight-4am: 0.6 units/hr 4am- 930am: 0.6 units/hr 930am-15:30 : 1.0 unit/hr 15:30-19:00: 1.2 units/hr 19:00-midnight: 1.2 units/hr Total basal- 21.9 Bolus doses: Sensitivity factor 35, insulin to carb 1: 8 Target- 100-130 Duration - 4hr TDD-45 50% in range Glucose Monitoring: Samia 2 Continous or 4 times daily Hypoglycemia Severe Hypoglycemia in Past: no Nasal glucagon some lows with pump site changes Hyperglycemia History of DKA: yes - [facility] in 2011. Flu. Induced coma. Diet Following type of diet: she says she needsto be 60 lbs overweight she reports Carb counting: Last visit with motion picture set grip:none reported Diet Recall: B- 2 pieces of toast No snack L- sandwhiches - cheese D-chicken noodle soup from scratch and salad GASTROPORESIS Exercise Used to work out in gym and free weights in . Arthritis after that and difficult. She reports knees hurt with walking. History of Diabetes Related Complications and Prevention Eyes: Last Eye Exam: 2023 and has another Mar 2024 History of Diabetes Retinopathy: yes proliferative retinopathy. Lasor done. She has glacoma now. Hypothyroidism -125mcg on m, w, f, sat. 150 sun, Thursday, . Managed by PCP. Latest Reference Range & Units 08/13/20 09:38 08/01/21 10:35 08/26/22 15:49 TSH 0.27 - 4.20 mcIU/mL 2.30 0.01 (L) 2.17 (L): Data is abnormally low Kidney function: Last urine microalbumin: Latest Reference Range & Units 02/06/20 09:33 08/01/21 10:37 08/26/22 16:12 Alb/Cr Ratio, Random 0 - 29 mcg/mg Cr 4 38 (H) 19 (H): Data is abnormally high Cardio: Patient heart attack in past: not reviewed Patient Vitals for the past 24 hrs: Last cholesterol: Latest Reference Range & Units 08/26/22 15:49 Chol, Total mg/dL 226 HDL mg/dL 99 Chol/HDL Ratio ratio 2.3 Triglycerides mg/dL 90 LDL Cholesterol mg/dL 109 Lipid Interpretation See Note Cholesterol medication: 40 mg statin GASTROPORESIS Feet: History of Neuropathy: no Flu shot - not available yet COVID Vaccination: yes. COVID positive in 2021 and plaxovid and helped. Past Medical History: Diagnosis Date Anxiety Arthritis Asthma Cortical cataract 05/05/2011 Diabetes mellitus GERD (gastroesophageal reflux disease) Hyperlipidemia Hypertension PDR (proliferative diabetic retinopathy) 05/25/2011 Skin disease Thyroid disease Medications 12/05/22 1121 Medication Sig Taking? meclizine (Antivert) 25 mg tablet glucagon (Baqsimi) 3 mg/actuation Steens, Non-Aerosol 1 each by Nasal route as needed (if uncocnsicous or seizure). Dexcom G6 Transmitter Device 1 each by Misc.(Non-Drug; Combo Route) route continuous. Change every 90 days. Dexcom G6 Sensor Device 1 each by Misc.(Non-Drug; Combo Route) route continuous. To be changed every 10 days. b complex vitamins Capsule Take 1 capsule by mouth daily. irbesartan (Avapro) 150 mg tablet levothyroxine (Synthroid) 150 mcg Tablet Take 1 tablet by mouth daily. Patient taking differently: Take 150 mcg by mouth daily. 125 mg on Mon, Wed, Fri and Sat 150 mg on , , and Thursday. desvenlafaxine succinate (PRISTIQ ORAL) Take 200 mg by mouth daily. trimethobenzamide (TIGAN) 300 mg Capsule Take by mouth 4 times daily as needed. Symbicort 160-4.5 mcg/actuation HFA Aerosol Inhaler as needed. gabapentin (Neurontin) 300 mg Capsule TK 2 CS PO TID mirtazapine (Remeron) 15 mg Tablet 45 mg as needed. busPIRone (BUSPAR) 5 mg Tablet Take 10 mg by mouth 3 times daily. Adalimumab (HUMIRA PEN) 40 mg/0.8 mL Pen Injector Kit Inject 0.8 mLs subcutaneously every 14 days. Patient not taking: Reported on 08/01/2021 insulin lispro (HUMALOG) Solution Inject 65 Units subcutaneously continuous. Continuous Via insulinpump melatonin 5 mg Tablet Take 10 mg by mouth nightly. magnesium citrate Solution Take 295 mLs by mouth 2 times daily as needed. Diabetic Supplies, Miscellan. [facility] DWO for Infusion sets faxed to [employer] insulin glargine (LANTUS) Solution Inject 10 Units subcutaneously 2 times daily. Needed for insulinpump failure Indications: type 1 diabetes mellitus atorvastatin (LIPITOR) 40 mg Tablet Take 40 mg by mouth daily. celecoxib (CELEBREX) 100 mg Capsule Take 100 mg by mouth 2 times daily. nefazodone (SERZONE) 100 mg Tablet Take 1 tablet by mouth 2 times daily. Patient not taking: Reported on 08/13/2020 Diabetic Supplies, Miscellan. [facility] Inject 1 each subcutaneously 4 times daily. Faxed pump and supply order to [employer] at [phone]. Dx Code: 250.01 Diabetic Supplies, Miscellan. [facility] faxed to [facility] bisacodyl (DULCOLAX) [address] 1 suppository rectally daily. Patient not taking: Reported on 08/13/2020 ondansetron (ZOFRAN-ODT) 8 mg Tablet, Rapid Dissolve Take 1 tablet by mouth every 8 hours as neededfor Nausea. Patient not taking: Reported on 08/26/2022 lisinopril (PRINIVIL;ZESTRIL) 20 mg Tablet Take 1 tablet by mouth daily. Patient not taking: Reported on 08/26/2022 MULTI-VITAMIN ORAL Take 1 tablet by mouth daily. Reported on 05/26/2016 Allergies Allergen Reactions Codeine Phosphate Nausea Only Propoxyphene N-Acetaminophen Nausea Only Family History Problem Relation Age of Onset Depression Father Mental Illness Father Alcohol Use Disorder Father Dementia Father Depression Sister Anxiety Disorder Sister Mental Illness Sister Alcohol Use Disorder Sister Alcohol Use Disorder Brother Diabetes Neg Hx Glaucoma Neg Hx Macular Degeneration Neg Hx Retinal Detachment Neg Hx Amblyopia Neg Hx Strabismus Neg Hx Colorectal Cancer Neg Hx Social History Social History Narrative Lives with , grandchild, great grandchild and Has 2 children she birthed. She has another child that is her grandchild - age 23. Son has diabetes also. College was pre-law. 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 ROS: General: Weight overweight BMI 33. HEENT: Vision as outlined above. Respiratory: Denies shortness of breath at rest. Cardiac: Denies recent chest pain. Gastrointestinal: ongoing gastroporesis. Urinary: Denies UTIs. No change in urinary symptoms. Extremities: Outlined in HPI. Endocrine: Outlined in HPI. Psych: she reports challenges at one point needing hospitalization but no hospitization of recent. OBJECTIVE BP 150/48 (BP Location (NBP): Right arm, Patient Position: Sitting, BP Cuff Sizes: Large Adult (32-43 cm)) Pulse 85 Temp 36.3 ??C (97.4 ??F) (Temporal) Resp 16 Ht 167.6 cm (5' 6) Wt 95.1 kg (209 lb 9.6 oz) LMP (LMP Unknown) SpO2 97% BMI 33.83 kg/m?? PHYSICAL EXAM: General: Alert and cooperative. Skin: No hypertrophy at sites. Skin normal texture and temperature. No results found for this or any previous visit (from the past 24 hour(s)). ASSESSMENT: 1. Type 1 diabetes mellitus with hyperglycemia Hemoglobin A1c U Albumin/Cre Ratio Comprehensive metabolic panel Non-fasting Lipid Panel (Reflex Direct LDL) TSH Vitamin D, 25-Hydroxy 2. Insulin pump in place This is a 68 yo female with type 1 diabetes Diagnosed age 16 and A1c generally above target. Notable medical comorbidities: hypothyroid (TSH currently in range with treatment), gastroparesis, proliferative retinopathy, HTN, psoriatic arthritis, BMI >30, depression. Today we re-prescribed her dexcom 6 so she is ready to shift pumps. She reports issues with understanding next steps and payment with new pump which she is trying to get tandem and now has been over one year since executing. Sent message to [employer] for helping her navigate the process. Additionally, she wants to loose weight and is intersted in GLP. She is meeting with Dr. Hernandez next week and we are focusing on pump today. Concerns of gastroporesis and use. I requested she talk with Dr. Hernandez. She will get her labs at that time also. PLAN: Current pump - change carb ratio at lunch to reduce lows post lunch 8 to 9. Dexcom G6 reordered again today. Gives flexibility for pump devices. [employer] with control IQ is tubing - contact company to re-start process - I will reach out to them and see if I can have someone walk you through the process. mail line [phone]. The olegcaden Lucia and she will train you when it arrive. Plan a visit with me 1-2 weeks after starting. Thyroid-125mcg on m, w, f, sat. 150 sun, Thursday, . Your PCP has been helping manage this. Talk with Dr. Hernandez about your weight and options. Go get labs 3L today or right before alyssa. Schedule 3 month follow-up to continue to work on pump start. Total time associated with visit: 45 min Lab order, prescriptions, face to face diabetes pump education, exam and documentation. CGM and interpretation completed today. Lianet Price, DNP, BEHAVIORAL INSTRUCTOR-BC, CDE Section of Endocrinology * Lianet Price APRN - 01/22/2024 3:00 PM EDT Images from the original note were not included. Patient: Roxann Baxter CGM 01/22/24 14 days of Continuous Glucose monitoring data was reviewed and interpreted today. Data was used to make recommendations to the diabetes regimen and care plan. Not at >70% goal. Most highs later inday.but she reports daily lows leading to higher numbers. documented in this encounter Plan of Treatment Upcoming Encounters Date Type Department Care Team (Late st Contact Info) Description 05/17/2024 2:30 PM EST Office [place] [address] Alcides Bonilla MD [facility] [place] [address] 04/06/2049 9:00 AM EST Hospital Encounter [place] [phone] Harry Guerrero MD [facility] [place] [address] Scheduled Orders Name Type Priority Associated Diagnoses Orde r Schedule Hemoglobin A1c Lab Routine Type 1 diabetes mellitus with hyperglycemia Expected: 01/22/2024, Expires: 04/23/2024 U Albumin/Cre Ratio Lab Routine Type 1 diabetes mellitus with hyperglycemia Expected: 01/22/2024 (Approximate), Expires: 04/23/2024 Comprehensive metabolic panel Non-fasting Lab Routine Type 1 diabetes mellitus with hyperglycemia Expected: 01/22/2024, Expires: 04/23/2024 Lipid Panel (Reflex Direct LDL) Lab Routine Type 1 diabetes mellitus with hyperglycemia Expected: 01/22/2024 (Approximate), Expires: 04/23/2024 TSH Lab Routine Type 1 diabetes mellitus with hyperglycemia Expected: 01/22/2024 (Approximate), Expires: 04/23/2024 Vitamin D, 25-Hydroxy Lab Routine Type 1 diabetes mellitus with hyperglycemia Expected: 01/22/2024, Expires: 07/22/2024 documented as of this encounter Visit Diagnoses Diagnosis Type 1 diabetes mellitus with hyperglycemia Type I (juvenile type) diabetes mellitus without mention of complication, not stated as uncontrolled Insulin pump in place Insulin pump status documented in this encounter Care Teams Detailer Pharmaceuticals Relationship Specialty Start Date End Date Nayla Miramontes MD [facility] ANABELLA LÓPEZ [address] [place] [address] PCP - General Family Medicine 05/11/21 documented as of this encounter
--- OUTSIDE RECORDS SUMMARY | 2024-03-07 18:55 | XMS_ITS | Encounter Summary ---
Author Organization [facility] [place] [address] Care Team Providers Care Supervisor Poultry Hatchery Name Role Phone Nayla Miramontes MD Primary Care Provider Encounter Details Date Type Department Care Team (Latest Contact Info) Description 12/05/2022 Travel Social History Tobacco Use Types Packs/Day Years Used Date Smoking Tobacco: Former Cigarettes Q uit: 05/06/1984 Smokeless Tobacco: Never Alcohol Use Standard Drinks/Week Comments Yes 3 (1 standard drink = 0.6 oz pur e alcohol) Sex and Gender Information Value Date Recorded Sex Assigned at Not on file Gender Identity Not on file Sexual Orientation Not on file documented as of this encounter Plan of Treatment Upcoming Encounters Date Type Department Care Team (Late st Contact Info) Description 05/17/2024 2:30 PM EST Office [place] [phone] Alcides Bonilla MD [facility] [place] [address] 04/06/2049 9:00 AM EST Hospital Encounter [place] [phone] Harry Guerrero MD [facility] [place] [address] documented as of this encounter Visit Diagnoses Not on filedocumented in this encounter Care Teams Supervisor Poultry Hatchery Relationship Specialty Start Date End Date Nayla Miramontes MD [address] ANABELLA LÓPEZ [facility] [address] [place] [address] PCP - General Family Medicine 05/11/21 documented as of this encounter
--- OUTSIDE RECORDS SUMMARY | 2024-03-07 18:55 | XMS_ITS | Encounter Summary ---
[place] [address] Care Team Providers Care Animal Taxonomist Name Role Phone Nayla Miramontes MD Primary Care Provider [phone] Reason for Visit * Reason Comments Specialty Pharmacy Review Humira Encounter Details Date Type Department Care Team (Late Contact Info) Description 12/31/2022 Specialty [place] [address] Keiry Arnett, GOLF BALL INSPECTOR Social History Tobacco Use Types Packs/Day Years Used Date Smoking Tobacco: Former Cigarettes Q uit: 05/06/1984 Smokeless Tobacco: Never Alcohol Use Standard Drinks/Week Comments Yes 3 (1 standard drink = 0.6 oz pur e alcohol) Sex and Gender Information Value Date Recorded Sex Assigned at Not on file Gender Identity Not on file Sexual Orientation Not on file documented as of this encounter Progress Notes * Keiry Arnett - 12/31/2022 11:59 PM EDT The [facility] has completed a benefits investigation for Roxann Baxter to review theireligibility to fill at [facility]. Per patient's medication list they are prescribed Humira and the patient's eligibility to fill at [facility] is pending further review at this time. Patient reported no longer taking. documented in this encounter Plan of Treatment Upcoming Encounters Date Type Department Care Team (Late st Contact Info) Description 05/17/2024 2:30 PM EST Office [place] [phone] Alcides Bonilla MD [facility] [place] [address] 04/06/2049 9:00 AM EST Hospital [place] [phone] Harry Guerrero MD [facility] [place] [address] documented as of this encounter Visit Diagnoses Not on filedocumented in this encounter Care Teams Animal Taxonomist Relationship Specialty Start Date End Date Nayla Miramontes MD [facility] ANABELLA LÓPEZ [facility] [address] [place] [address] PCP - General Family Medicine 05/11/21 documented as of this encounter
--- OUTSIDE RECORDS SUMMARY | 2024-03-07 18:55 | XMS_ITS | Encounter Summary ---
[place] [address] Care Team Providers Care Psychiatric Nurse Name Role Phone Nayla Miramontes MD Primary Care Provider [phone] Reason for Visit * Reason Onset Date Comments Pump/sensor 03/02/2024 Encounter Details Date Type Department Care Team (Late Contact Info) Description 03/02/2024 [place] [address] Rachna Espinosa Pump/sensor Social History Tobacco Use Types Packs/Day Years [...] encounter Miscellaneous Notes * Telephone Encounter - Rachna Espinosa - 03/02/2024 7:53 AM EST Documentation request received from [facility]. 01/22/24 office notes routed Fax number: [phone] documented in this encounter Plan of Treatment Upcoming Encounters Date Type Department Care Team (Late st Contact Info) Description 05/17/2024 2:30 PM EST Office [place] [address] Alcides Bonilla MD [facility] [place] [address] 04/06/2049 9:00 AM EST Hospital [place] [address] Harry Guerrero MD [facility] [place] [address] documented as of this encounter Visit Diagnoses Not on filedocumented in this encounter Care Teams Psychiatric Nurse Relationship Specialty Start Date End Date Nayla Miramontes MD [facility] ANABELLA LÓPEZ [address] [address] PCP - General Family Medicine 05/11/21 documented as of this encounter
--- OUTSIDE RECORDS SUMMARY | 2024-03-07 18:55 | XMS_ITS | Encounter Summary ---
Author Organization [facility] [place] [address] Care Team Providers Care Mechanical Design Technician Name Role Phone Nayla Miramontes MD Primary Care Provider [phone] Encounter Details Date Type Department Care Team (Late st Contact Info) Description 09/18/2022 Telephone [place] [phone] Alcides Bonilla MD [facility] [place] [address] Social History Tobacco Use Types Packs/Day Years [...] Telephone Encounter - Alcides Bonilla MD - 09/18/2022 9:42 AM EDT Left message documented in this encounter Plan of Treatment Upcoming Encounters Date Type Department Care Team (Late st Contact Info) Description 05/17/2024 2:30 PM EST Office [place] [phone] Alcides Bonilla MD [facility] [place] [address] 04/06/2049 9:00 AM EST Hospital Encounter [place] [address] Harry Guerrero MD [facility] [place] [address] documented as of this encounter Visit Diagnoses Not on filedocumented in this encounter Care Teams Mechanical Design Technician Relationship Specialty Start Date End Date Nayla Miramontes MD [facility] ANABELLA LÓPEZ [facility] [address] [place] [address] PCP - General Family Medicine 05/11/21 documented as of this encounter
--- OUTSIDE RECORDS SUMMARY | 2024-03-07 18:55 | XMS_ITS | Clinical Summary ---
Author Organization [facility] Address [facility] [place] [address] Care Team Providers Care Manager Pmo Name Role Phone Nayla Miramontes MD Primary Care Provider [phone] Allergies Active Allergy Reactions Criticality Noted Date Comments Codeine Phosphate Nausea Only Propoxyphene N-Acetaminophen Nausea Only Medications Medication Sig Dispensed Refills Start Date End Date Status MULTI-VITAMIN ORAL Take 1 tablet by mouth daily. Reported on 05/26/2016 Active lisinopril (PRINIVIL;ZESTRIL ) 20 mg Tablet Take 1 tablet by mouth daily. 30 tablet 12/08/2013 Active bisacodyl (DULCOLAX) 10 mg SuppositoryIndica tions:Other constipation Place 1 suppository rectally daily. 60 suppository 3 03/20/2015 Active Additional Information Patient not taking.Reported on 08/21/2022 Diabetic Supplies, Miscellan. [facility] faxed to [facility] 100 each 12 10/30/2015 Active Diabetic Supplies, Miscellan. [facility] Inject 1 each subcutaneously 4 times daily. Faxed pump and supply order to [employer] at [phone]. Dx Code: 250.01 100 each 12/21/2015 Active atorvastatin (LIPITOR) 40 mg Tablet Take 40 mg by mouth daily. 04/28/2016 Active celecoxib (CELEBREX) 100 mg Capsule Take 100 mg by mouth 2 times daily. 04/28/2016 Active insulin glargine (LANTUS) SolutionIndicatio ns:type 1 diabetes mellitus Inject 10 Units subcutaneously 2 times daily. Needed for insulin pump failure Indications: type 1 diabetes mellitus 10 mL 01/23/2017 Active Diabetic Supplies, 20/20 [employer]cellan. [facility] DWO for Infusion sets faxed to [facility]ne 100 each 12 02/01/2017 Active melatonin 5 mg Tablet Take 10 mg by mouth nightly. Active magnesium citrate Solution Take 295 mLs by mouth 2 times daily as needed. 590 mL 5 03/06/2017 Active insulin lispro (HUMALOG) Solution Inject 65 Units subcutaneously continuous. Continuous Via insulin pump 60 mL 3 06/23/2017 Active Adalimumab (HUMIRA PEN) 40 mg/0.8 mL Pen Injector Kit Inject 0.8 mLs subcutaneously every 14 days. 3 kit 3 05/14/2018 Active Additional Information Patient not taking.Reported on 08/01/2021 busPIRone (BUSPAR) 5 mg Tablet Take 10 mg by mouth 3 times daily. Active gabapentin (Neurontin) 300 mg Capsule TK 2 CS PO TID 01/18/2020 Active trimethobenzamide (TIGAN) 300 mg Capsule Take by mouth 4 times daily as needed. 08/08/2015 Active Symbicort 160-4.5 mcg/actuation HFA Aerosol Inhaler as needed. 05/02/2020 Active desvenlafaxine succinate (PRISTIQ ORAL) Take 200 mg by mouth daily. Active levothyroxine (Synthroid) 150 mcg Tablet Take 1 tablet by mouth daily. 90 tablet 3 08/05/2021 Active Additional Information Patient taking differently:150 mcg Oral DAILY,125 mg on Mon, Wed, Fri and Sat 150 mg on , , and Thursday., Reported on 12/05/2022 b complex vitamins Capsule Take 1 capsule by mouth daily. Active irbesartan (Avapro) 150 mg tablet 06/20/2022 Active meclizine (Antivert) 25 mg tablet 07/28/2022 Active glucagon (Baqsimi) 3 mg/actuation [place], Non-Aerosol 1 each by Nasal route as needed (if uncocnsicous or seizure). 2 each 1 12/05/2022 Active latanoprost (Xalatan) 0.005 % Drops 01/20/2024 Active Dexcom G6 Sensor Device 1 each by [facility].(Non-Drug; Combo Route) route continuous. To be changed every 10 days. 9 each 3 01/22/2024 Active Dexcom G6 Transmitter Device 1 each by Mis.(Non-Drug; Combo Route) route continuous. Change every 90 days. 1 each 3 01/22/2024 Active Active Problems Problem Noted Date Diagnosed Date Chronic pain of both knees 05/12/2018 Pain in both hands 05/12/2018 Osteoarthritis 05/12/2018 Chronic pain of both shoulders 05/12/2018 Morning joint stiffness 05/12/2018 Bilateral hip pain 05/12/2018 Fecal incontinence 03/09/2017 Morbid obesity 05/08/2016 MDD (major depressive disord er), recurrent episode, moderate 02/11/[address] 11/08/2015 Overview (11/08/2015): [employer] Pseudophakia of both eyes (OD - 10/17/14, OS - ) 11/01/2014 Urinary incontinence 08/22/2014 Diabetic retinopathy 05/19/2014 Vitreous hemorrhage of right eye 05/19/2014 IDDM (insulin dependent diabetes mellitus) 05/19 Dysphagia 07/25/2013 Chronic constipation 07/25/2013 PDR (proliferative diabetic retinopathy) 014 Scoliosis 08/13/2012 Chronic bilateral low back pain without sciatica 08/13/2012 Seborrheic keratosis 05/03/2012 Solar lentigo 05/03/2012 Xerosis cutis 05/03/2012 Pruritus 05/03/2012 Nuclear sclerosis 04/13/2012 Proliferative diabetic retin opathy of both eyes.-mild resolving bilateral vitreous hemorrhages.No traction. Good PRP. 04/13/2012 Psoriatic arthritis.currentl y on Hydroxychloroquine. No signs of hydroxychloroquine retinopathy. Recommend close followup. 04/13/2012 PDR (proliferative diabetic retinopathy) 012 Cortical cataract 05/05/2011 Retinal neovascularization of right eye 05/05/19 12 Vitreous hemorrhage of left eye 05/05/2011 PSC (posterior subcapsular cataract), bilateral 05/05/2011 Type 1 diabetes mellitus 05/05/2011 Reflux esophagitis 04/26/2011 Gastritis 04/26/2011 Anasarca 04/26/2011 DKA (diabetic ketoacidoses) 04/20/2011 Hypertension 03/08/2011 Hyperlipidemia 03/08/2011 Hypothyroidism 03/08/2011 Psoriasis 03/08/2011 Depression 03/08/2011 Iron deficiency 03/08/2011 Asthma 03/08/2011 Microcytic anemia 03/08/2011 GERD (gastroesophageal reflux disease) 1 Giron's esophagus 03/08/2011 Diabetic retinopathy associa rahul with type 1 diabetes mellitus 03/08/2011 Diabetes mellitus Overview (01/11/2011): Dx replacement utility run on deactivated IMO Dx [id number] Resolved Problems Problem Noted Date Diagnosed Date Resolved Date Shock 04/19/2011 04/25/2011 Psoriatic arthritis 03/08/2011 04/19/19 12 Encounters Date Type Department Care Team Description 03/02/2024 Telephone [place] [address] Espinosa, Rachna K Pump/sensor 02/26/2024 [place] [address] Lianet Price APRN 02/26/2024 Telephone Endocrinology [place] [address] Espinosa, Rachna K Pump/sensor 02/16/2024 Telephone Endocr[place]ology [place] [address] Espinosa, Rachna K Pump/sensor 02/02/2024 Telephone Endocrinology [place] [address] Espinosa, Rachna K Pump/sensor 01/22/2024 3:00 PM EDT Office Visit Endocr[place]ology [place] [address] Lianet Price, CYLINDER DEVALVER Type 1 diabetes mellitus with hyperglycemia; Insulin pump in place 01/22/2024 Travel from Last 3 Months Immunizations Name Administration Dates Next Due Influenza PF, Split 01/27/2017,01/04/2015 Influenza Trivalent w/Preservative 03/07/2014, Influenza Vaccine, Whole 02/17/2009 Family History Medical History Relation Comments Alcohol Use Disorder Brother Alcohol Use Disorder Father Dementia Father Depression Father Mental Illness Father Alcohol Use Disorder Sister Anxiety Disorder Sister Depression Sister Mental Illness Sister Amblyopia Neg Hx Colorectal Cancer Neg Hx Diabetes Neg Hx Glaucoma Neg Hx Macular Degeneration Neg Hx Retinal Detachment Neg Hx Strabismus Neg Hx Relation Status Comments Brother Father Sister Social History Tobacco Use Types Packs/Day Years Used Date Smoking Tobacco: Former Cigarettes Q uit: 05/06/1984 Smokeless Tobacco: Never Tobacco Cessation:Counseling Given: No Alcohol Use Standard Drinks/Week Comments Yes 3 (1 standard drink = 0.6 oz pur e alcohol) Sex and Gender Information Value Date Recorded Sex Assigned at Not on file Gender Identity Not on file Sexual Orientation Not on file Last Filed Vital Signs Vital Sign Reading [...] Mass Index 33.83 01/22/2024 2:32 PM EDT Plan of Treatment Upcoming Encounters Date Type Department Care Team (Late st Contact Info) Description 05/17/2024 2:30 PM EST Office [place] [address] Alcides Bonilla MD [facility] [place] [address] 04/06/2049 9:00 AM EST Hospital Encounter [place] [phone] Harry Guerrero MD [facility] [place] [address] Health Maintenance Due Date Last Done Comments CT Colonography 1955 FIT DNA 1955 FIT 1955 Sigmoidoscopy 1955 Pneumoccocal Vaccine: 65+ (1 of 2 - PCV) 09/02/1961 Tetanus/Diphtheria/Pertussis Vaccines (1 - Tdap) 09/02/1974 Breast Cancer Share Decision Needed 1995 Breast Cancer screening 1995 Zoster vaccine (1 of 2) 09/02/2005 Advance Directive 09/02/2010 RSV Vaccine (1 - Risk 60-74 years 1-dose series) 2015 DM Opthalmology Exam 02/13/2016 02/12/2015, 11/01/2014, 10/04/2014, Additional history exists Bone Density Scan 09/02/2020 DM Hemoglobin A1c 03/06/2023 12/05/2022, , 08/01/2021, Additional history exists DM Urine Microalbumin yearly 08/27/2023, 08/01/2021, 02/06/2020, Additional history exists Covid-19 Vaccine (1 - 2023-2 5 season) 2023 DM Creatinine yearly 12/06/2023 12/05/2022, 08/26/2022, 08/01/2021, Additional history exists Influenza (Flu) vaccine (1 o f 1 - Influenza standard series) 12/06/2023 01/27/2017, 01/04/2015, 03/07/2014, Additional history exists Colonoscopy 08/22/2027 08/21/2022, 08/04, 01/01/2018, Additional history exists Colorectal Cancer Screening 08/22/2027 Sigmoidoscopy (10 year) with FIT yearly 08/21/2032 08/21/2022, 08/21/2022, 01/01/2018, Additional history exists Hepatitis C Screening Completed 05/31/2018 Medical Devices Implanted Type Area Insole And Outsole Splitter Device Identifier Shelf Expiration Date Model / Serial / Lot Iol,[id number],21. 0 ([id number]) ([employer]) - [id number] Implanted:Qty: 1 on 09/26/2014 by Alexis Villalba MD at [facility] IMPLANTS Left: [employer] - [id number] 06/04/2019 SN60WF 21.0 / [id number] / Iol,Sn60wf,21. 0 ([id number]) ([employer]) - [id number] Implanted:Qty: 1 on 01/17/2015 by Alexis Villalba MD at [facility] IMPLANTS Right: [employer] - [id number] 11/04/2019 SN60WF 21.0 / [id number] / Procedures Procedure Name Priority Date/Time Associated Diagnosis Comments HEMOGLOBIN A1C Routine 12/05/2022 12:55 PM EDT Type 1 diabetes mellitus with hyperglycemia COMPREHENSIVE METABOLIC PANEL Routine 12/05/2022 12:55 PM EDT Type 1 diabetes mellitus with hyperglycemia U ALBUMIN/CRE RATIO Routine 08/26/2022 4 :12 PM EDT 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 COLONOSCOPY Routine 08/21/2022 11:19 AM EDT HEPATITIS C ANTIBODY Routine 05/31/2018 8:51 AM EST Chronic pain of both shoulders Osteoarthritis, unspecified osteoarthritis type, unspecified site Pain in both hands Morning joint stiffness Chronic pain of both knees Psoriatic arthritis.currently on Hydroxychloroquine. No signs of hydroxychloroquine retinopathy. Recommend close followup. Psoriasis from Last 3 Months or Most Recently Relevant to Health Maintenance Results * (ABNORMAL) Hemoglobin A1c (12/05/2022 12:55 PM EDT) Hemoglobin A1c 8.2(H) 4.3 - 5.6 % [facility] Comment: Reference Range: 4.3 - 5.6% 5.7 - 6.4% - Increased Risk of Developing Diabetes Mellitus >= 6.5% - Consistent with diagnosis of Diabetes Mellitus In the absence of hyperglycemia (i.e. plasma glucose > 200 mg/dL) or classic symptoms of hyperglycemia a repeat measurement of HbA1c should be performed on a separate sample to confirm the diagnosis. Diagnosis and Classification of Diabetes Mellitus, Diabetes Care 2013; 36: Suppl. 1, I23-35 Estimated Average Glucose 189 mg/dL [facility] Comment: eAG equivalents for HbA1c percentages: HbA1c(%) ?eAG(mg/dL) 6.0 ?126 6.5 ?140 7.0 ?154 7.5 ?169 8.0 ?183 8.5 ?197 9.0 ?212 9.5 ?226 10.0 ? 240 Limitations: The eAG calculation has not been validated on women, individuals below 18 years old and above 70 years old, and individuals with hemoglobinopathies. Additional resources are available on the ADA website. Rich MCDANIEL, Brenda J, Wallace R, et al. ??Translating the A1C assay into estimated average glucose values. ??Diabetes Care 2008:31(8):1767-5121. Blood 12/05/2022 12:5 5 PM EDT 12/05/2022 1:06 PM EDT Narrative Resulting Agency Comment Spec In Lab Lianet Price CYLINDER DEVALVER CHEMISTRY ORDER DAKSHA [facility] [place] [address] * (ABNORMAL) Comprehensive metabolic panel (non-fasting) (12/05/2022 12:55 PM EDT) Glucose 247(H) 65 - 199 mg/dL [facility] Comment:Diabetes: >=200 mg/d L plus symptoms Blood Urea Nitrogen 17 8 - 18 mg/dL [facility] Creatinine 0.76 0.70 - 1.20 mg/dL [facility] Sodium 141 135 - 145 mmol/L [facility] Potassium 5.5(H) 3.5 - 5.0 mmol/L [facility] Comment: Please note: ??Patients with WBC >100,000 may have falsely elevated Potassium levels. ??For accurate Potassium quantification in these patients send serum separator tube (gold top) for subsequent determinations. ??Contact the Clinical Chemistry Laboratory if there are any questions. Chloride 103 98 - 107 mmol/L [facility] Carbon Dioxide 30 22 - 31 mmol/L [facility] Anion Gap 8 5 - 15 mmol/L [facility] Calcium 9.6 8.5 - 10.5 mg/dL [facility] Protein, Total 7.4 6.1 - 8.0 g/dL [facility] Albumin 4.4 3.2 - 5.2 g/dL [facility] Aspartate Aminotransferase 16 0 - 30 unit/L [facility] Alanine Aminotransferase 17 0 - 30 unit/L [facility] Alkaline Phosphatase 71 35 - 105 unit/L [facility] Bilirubin, Total 0.4 0.2 - 1.3 mg/dL [facility] Est Glomerular Filtration Rate 86 >=60 mL/min/1. 73 m?? [facility] Comment: This patient's estimated GFR was calculated using the 2020 CKD-EPI equation. The estimated GFR can vary from the measured GFR by up to 30% in the absence of rapidly changing kidney function. Assessment of the estimated GFR is not appropriate when creatinine concentrations are rapidly changing. For clinical situations in which a more precise estimate of GFR is necessary, consider alternative methods of GFR estimation such as a 24-hour urine creatinine clearance. Assignment of CKD stage 1-5 for patients with an eGFR near the transition point between stages may be based on clinical assessment of muscle mass and symptoms in addition to eGFR. Blood 12/05/2022 12:5 5 PM EDT 12/05/2022 1:06 PM EDT Narrative Resulting Agency Comment Spec In Lab Lianet Price CYLINDER DEVALVER CHEMISTRY ORDER DAKSHA [facility] [place] [address] * U Albumin/Cre Ratio (08/26/2022 4:12 PM EDT) Albumin / Creatinin Ratio, Urine 19 0 - 29 mcg/mg Cr [facility] Comment: Reference Ranges: <30 mcg/mg: Normal 30-300 mcg/mg: Moderately increased albuminuria.* >300 mcg/mg: Severely increased albuminuria. * ACEI or ARB recommended if diabetic; suggested if BP>130/80 without diabetes ACEI or ARB strongly recommended if diabetic; recommended if BP>130/80 without diabetes Two of three specimens collected within a 3 to 6 month period should be abnormal before considering a patient to have albuminuria. Transient causes: exercise, fever, infection, CHF, marked hyperglycemia or hypertension. Persistent albuminuria indicates CKD and is an independent risk factor for ASCVD. ADA Standards of Medical Care in Diabetes-2016; KDIGO: Kidney International Supplements (2012) 2, 357? 362 Albumin, Urine 13.2 mg/L [facility] Creatinine, Urine 71 mg/dL [facility] Urine 08/26/2022 4:12 PM EDT 08/26/2022 5:01 PM EDT Narrative Resulting Agency Comment Spec In Lab Ariel Hernandez MD URINE ORDERABLES Performing Organization Address City/State/[facility] Co de Phone Number [facility] [place] [address] * COLONOSCOPY (08/21/2022 11:19 AM EDT) COLONOSCOPY [facility] Endoscopy Procedure Date: 08/21/2022 11:19 AM ? Patient Name: Roxann Baxter ? Date of : 1955 ? Age: 66 ? Order #: [id number] ? Instrument Name: Fanny Chan Scope ? Procedure: ? Colonoscopy Indications: ? Diarrhea Providers: ? Kayley Spence MD, Marilee Herbert, ? Bob Thacker MD: ?Nayla Miramontes MD Medicines: ? Midazolam 2.5 mg IV, Fentanyl 50 ? micrograms IV Complications: ? No immediate complications. Procedure: ? Pre-Anesthesia Assessment: ? - Prior to the procedure, a History ? and Physical was performed, and ? patient medications, allergies and ? sensitivities were reviewed. The ? patient's tolerance of previous ? anesthesia was reviewed. ? - The risks and benefits of the ? procedure and the sedation options ? and risks were discussed with the ? patient. All questions were ? answered and informed consent was ? obtained. ? The procedure, indications, ? benefits, risks and alternatives ? were explained to the patient. ? Specifically discussed were ? potential complications including, ? but not limited to, bleeding, ? perforation, infection, missing a ? cancer, and adverse medication ? reactions. The patient was placed ? in the left lateral decubitus ? position, and a digital rectal exam ? was performed. The Endoscope was ? inserted in the anus and under ? direct visualization, advanced to ? the terminal ileum. Careful ? inspection was made as the ? colonoscope was withdrawn. The ? colonoscopy was performed without ? difficulty. The patient tolerated ? the procedure well. The quality of ? the bowel preparation was fair. ? Findings: ? Multiple small and large-mouthed diverticula were ? found in the sigmoid colon and descending colon. ? Normal mucosa was found in the entire colon. Biopsies ? were taken with a cold forceps for histology. ? The terminal ileum appeared normal. ? Moderate Sedation: ? I was present during the intraservice time as ? documented by the sedation RN. Impression: ?- Preparation of the colon was fair. ? - Diverticulosis in the sigmoid ? colon and in the descending colon. ? - Normal mucosa in the entire ? examined colon. Biopsied. ? - The examined portion of the ileum ? was normal. Recommendation: ?Follow up in clinic as planned. ? Colonoscopy in 2018 had a better ? prep and was normal, based on that ? next screening would be in 2027 at ? which time one could consider ? screening colonoscopy or stool ? based colon cancer screening. ? Suggest propofol for future ? colonoscopy as she had signifcant ? discomfort with conscious sedation ? today and in 2018. ? Suggest Golytely for future preps. ? Attending Participation: ? I personally performed the entire procedure. ? I was present during the intraservice time as ? documented by the sedation RN. ? Kayley Spence MD 08/21/2022 12:11:43 PM This report has been signed electronically. Number of Addenda: 0 Note Initiated On: 08/21/2022 11:19 AM PROVATION 08/21/2022 11:1 9 AM EDT Nayla Miramontes MD GENERAL SURGICAL ORD ERABLES Performing Organization Address [facility] de Phone Number PROVATION * Hepatitis C Antibody (05/31/2018 8:51 AM EST) Hepatitis C Antibody Negative Negative [facility] Blood specimen (specimen) 05/31/2018 8:51 AM EST 05/31/2018 9:34 AM EST Narrative Resulting Agency Comment Spec In Lab Luis Haywood MD CHEMISTRY ORDERABLES Performing Organization Address [facility]/[place]IP [place] Number [place] [address] from Last 3 Months or Most Recently Relevant to Health Maintenance Advance Directives * Full Code (Latest Code Status on File) Date Activated Date Inactivated Comments 05/08/2016 2:05 PM 05/16/2016 4:59 PM Question Answer Comments Does patient have capacity to make decision: Yes * Full Code Date Activated Date Inactivated Comments 02/11/2016 9:02 PM 02/14/2016 3:23 PM Question Answer Comments Does patient have capacity to make decision: Yes * Full Code Date Activated Date Inactivated Comments 04/19/2011 8:06 PM 04/29/2011 4:51 PM Question Answer Comments Order Status: Initial Order Does patient have decision m aking capacity? Yes, Order is based on Patients wishes. Care Teams Manager Pmo Relationship Specialty Start Date End Date Nayla Miramontes MD [address] [place] [address] PCP - General Family Medicine 05/11/21
--- OUTSIDE RECORDS SUMMARY | 2024-03-07 18:55 | XMS_ITS | Encounter Summary ---
Author Organization [facility] [place] [address] Care Team Providers Care County Program Technician Name Role Phone Nayla Miramontes MD Primary Care Provider [phone] Reason for Visit * Reason Comments Specialty Pharmacy Review Humira Encounter Details Date Type Department Care Team (Late st Contact Info) Description 02/24/2023 Specialty [place] [address] Keiry Arnett, THERAPEUTIC SPECIALIST Social History Tobacco Use Types Packs/Day Years [...] as of this encounter Progress Notes * Kiery Arnett - 02/24/2023 11:59 PM EST [facility] has completed a benefits investigation for Roxann Baxter to review theireligibility to fill at [facility]. Per patient's medication list they are prescribed Humira and the patient's eligibility to fill at [facility] is pending further review at this time. Patient is no longer on targeted therapy. documented in this encounter Plan of Treatment Upcoming Encounters Date Type Department Care Team (Late st Contact Info) Description 05/17/2024 2:30 PM EST Office [place] [phone] Alcides Bonilla MD [facility] [place] [address] 04/06/2049 9:00 AM EST Hospital En[place] [phone] Harry Guerrero MD [facility] [place] [address] documented as of this encounter Visit Diagnoses Not on filedocumented in this encounter Care Teams County Program Technician Relationship Specialty Start Date End Date Nayla Miramontes MD [facility] [address] [facility] [address] [place] [address] PCP - General Family Medicine 05/11/21 documented as of this encounter
--- OUTSIDE RECORDS SUMMARY | 2024-03-07 18:55 | XMS_ITS | Encounter Summary ---
Author Organization [facility] [place] [address] Care Team Providers Care On Air Announcer Name Role Phone Nayla Miramontes MD Primary Care Provider [phone] Encounter Details Date Type Department Care Team (Latest Contact Info) Description 01/22/2024 Travel Social History Tobacco Use Types Packs/Day [...] 2:30 PM EST Office [place] [phone] Alcides Bonilla MD [facility] [place] [address] 04/06/2049 9:00 AM EST Hospital Encounter [place] [phone] Harry Guerrero MD [facility] [place] [address] documented as of this encounter Visit Diagnoses Not on filedocumented in this encounter Care Teams On Air Announcer Relationship Specialty Start Date End Date Nayla Miramontes MD [address] [facility] [address] [place] [address] PCP - General Family Medicine 05/11/21 documented as of this encounter
--- OUTSIDE RECORDS SUMMARY | 2024-03-07 18:55 | XMS_ITS | Encounter Summary ---
[place] [address] Care Team Providers Care Deputy Grand Jury Name Role Phone Nayla Miramontes MD Primary Care Provider [phone] Reason for Visit * Reason Onset Date Comments Pump/sensor 02/26/2024 Encounter Details Date Type Department Care Team (Late st Contact Info) Description 02/26/2024 [place] [phone] Rachna Espinosa Pump/sensor Social History Tobacco Use [...] encounter Miscellaneous Notes * Telephone Encounter - Velma Vargas - 03/01/2024 8:54 AM EST Statement of medical necessity and prescription order from [employer]. Filled out. 12/05/22 & 01/22/24 office notes routed Lianet Price will sign. Secretaries faxed and confirmed signed copy 02-26-24 * Telephone Encounter - Rachna Espinosa - 02/29/2024 9:31 AM EST Statement of medical necessity and prescription order from [employer]. Filled out. 12/05/22 & 01/22/24 office notes routed Lianet Price will sign. Secretaries will fax. * Telephone Encounter - Rachna Espinosa - 02/26/2024 10:18 AM EST Received SMN from [employer] Will complete as soon as possible documented in this encounter Plan of Treatment Upcoming Encounters Date Type Department Care Team (Late st Contact Info) Description 05/17/2024 2:30 PM EST Office [place] [address] Alcides Bonilla MD [facility] [place] [address] 04/06/2049 9:00 AM EST Hospital [place] [address] Harry Guerrero MD [facility] [place] [address] documented as of this encounter Visit Diagnoses Not on filedocumented in this encounter Care Teams Deputy Grand Jury Relationship Specialty Start Date End Date Nayla Miramontes MD [address] [place] [address] PCP - General Family Medicine 05/11/21 documented as of this encounter
--- OUTSIDE RECORDS SUMMARY | 2024-03-07 18:55 | XMS_ITS | Encounter Summary ---
Author Organization [facility] [place] [address] Care Team Providers Care Drill Runner Helper Name Role Phone Nayla Miramontes MD Primary Care Provider [phone] Encounter Details Date Type Department Care Team (Late st Contact Info) Description 09/18/2022 Telephone [place] [address] Alcides Bonilla MD [facility] [place] [address] Social History Tobacco Use Types Packs/Day Years [...] Encounter - Alcides Bonilla MD - 09/18/2022 9:54 AM EDT I called Roxann to go over recent test results. Her EGD colonoscopy did not show anything worrisome visually. Biopsies of the esophagus and stomachshowed mild nonspecific irritation Biopsies of the colon showed a few scattered lymphocytes but nothing indicative of microscopic colitis. She does take NSAIDs occasionally which could contribute to this finding and I told her that I do not think that she needs any specific follow-up for this finding unless a change in symptoms warrant this (such as onset of dramatic diarrhea that would be suggestive of microscopic colitis) Her esophageal manometry shows EGJ outflow obstruction. There is no evidence of intrinsic obstruction on the recent EGD. A prior fundoplication could cause this finding. I we will make arrangements for esophageal barium studies for further assessment We also reviewed the results of her recent anorectal manometry. This showed dyssynergic defecation and she is been referred to a local pelvic floor physical therapist We have plan follow-up in February If there are any questions in the interim please feel free to contact me Your sincerely Alcides Bonilla MD, FRCPC Section of Gastroenterology and Hepatology [facility] [place] [address] V: [phone] F: [phone] documented in this encounter Plan of Treatment Upcoming Encounters Date Type Department Care Team (Late st Contact Info) Description 05/17/2024 2:30 PM EST Office Visit [place] [address] Alcides Bonilla MD [facility] [place] [address] 04/06/2049 9:00 AM EST Hospital Encounter [place] [address] Harry Guerrero MD [facility] [place] [address] documented as of this encounter Visit Diagnoses Diagnosis Dysphagia, unspecified type documented in this encounter Care Teams Drill Runner Helper Relationship Specialty Start Date End Date Nayla Miramontes MD [address] [place] [address] PCP - General Family Medicine 05/11/21 documented as of this encounter
--- OUTSIDE RECORDS SUMMARY | 2024-03-07 18:55 | XMS_ITS | Encounter Summary ---
Author Organization [facility] [place] [address] Care Team Providers Care Contract Post Office Clerk Name Role Phone Nayla Miramontes MD Primary Care Provider [phone] Encounter Details Date Type Department Care Team (Late Contact Info) Description 12/11/2022 Orders [place] [phone] Lianet Price APRN [facility] [place] [address] Type 1 diabetes mellitus with hyperglycemia Social History Tobacco Use Types Packs/Day Years [...] 2:30 PM EST Office [place] [phone] Alcides Bonilla MD [facility] [place] [address] 04/06/2049 9:00 AM EST Hospital Encounter [place] [address] Harry Guerrero MD [facility] [place] [address] documented as of this encounter Visit Diagnoses Diagnosis Type 1 diabetes mellitus with hyperglycemia Type I (juvenile type) diabetes mellitus without mention of complication, not stated as uncontrolled documented in this encounter Care Teams Contract Post Office Clerk Relationship Specialty Start Date End Date Nayla Miramontes MD [address] [place] [address] [facility] [address] [place] [address] PCP - General Family Medicine 05/11/21 documented as of this encounter
--- OUTSIDE RECORDS SUMMARY | 2024-03-07 18:55 | XMS_ITS | Encounter Summary ---
Author Organization [facility] [place] [address] Care Team Providers Care Multi Sensor Operator Name Role Phone Nayla Miramontes MD Primary Care Provider [phone] Encounter Details Date Type Department Care Team (Late st Contact Info) Description 02/26/2024 Telephone [place] [address] Lianet Price APRN [facility] [place] [address] Social History Tobacco Use Types Packs/Day Years [...] encounter Miscellaneous Notes * Telephone Encounter - Payton Blanton RN - 02/26/2024 10:49 AM EST Copied from [facility] #[id number]. Topic: Specialty Dept CRMs - Generic Call >> Feb 25, 2024 10:28 AM Jn Valladares wrote: Specialist: Dr. Hernandez Relationship (if other than patient-full name): Annel[facility] Reason for Call: Annel states that they need the documentation and office notes that were faxed [employer] as well. Please fax to [phone] documented in this encounter Plan of Treatment Upcoming Encounters Date Type Department Care Team (Late st Contact Info) Description 05/17/2024 2:30 PM EST Office [place] [address] Alcides Bonilla MD [facility] [place] [address] 04/06/2049 9:00 AM EST Hospital Encounter [place] [address] Harry Guerrero MD [facility] [place] [address] documented as of this encounter Visit Diagnoses Not on filedocumented in this encounter Care Teams Multi Sensor Operator Relationship Specialty Start Date End Date Nayla Miramontes MD [facility] [address] [place] [address] PCP - General Family Medicine 05/11/21 documented as of this encounter
--- OUTSIDE RECORDS SUMMARY | 2024-03-07 18:55 | XMS_ITS | Encounter Summary ---
[place] [address] Care Team Providers Care Wire Insulator Name Role Phone Nayla Miramontes MD Primary Care Provider [phone] Reason for Visit * Reason Onset Date Comments Pump/sensor 02/16/2024 Encounter Details Date Type Department Care Team (Late st Contact Info) Description 02/16/2024 Telephone [place] [phone] Rachna Espinosa Pump/sensor Social History Tobacco Use [...] * Telephone Encounter - Rachna Espinosa - 02/16/2024 8:25 AM EST 01/22/24 office notes routed to [facility] Fax number: [phone] * Telephone Encounter - Rachna Espinosa - 02/16/2024 8:24 AM EST Copied from [facility] #[id number]. Topic: Specialty Dept CRMs - Form Status >> Feb 09, 2024 10:13 AM Shefali Herrera wrote: Form Status Request Specialist David Relationship (if other than patient-full name): Asley with [facility] Type of Form/Paperwork: Request for office notes and an Rx for a tandem pump How Was Form/Paperwork Given to Office: Faxed Date Form/Paperwork was Sent to Office: 02/04/2024 Patient Informed, completion of this request can take 5-7 business days. documented in this encounter Plan of Treatment Upcoming Encounters Date Type Department Care Team (Late st Contact Info) Description 05/17/2024 2:30 PM EST Office Visit [place] [phone] Alcides Bonilla MD [facility] [place] [address] 04/06/2049 9:00 AM EST Hospital Encounter [place] [address] Harry Guerrero MD [facility] [place] [address] documented as of this encounter Visit Diagnoses Not on filedocumented in this encounter Care Teams Wire Insulator Relationship Specialty Start Date End Date Nayla Miramontes MD [address] [place] [address] PCP - General Family Medicine 05/11/21 documented as of this encounter
--- OUTSIDE RECORDS SUMMARY | 2024-03-07 18:55 | XMS_ITS | Encounter Summary ---
[place] [address] Care Team Providers Care Journeyman Operator Assistant Name Role Phone Nayla Miramontes MD Primary Care Provider [phone] Reason for Visit * Reason Onset Date Comments Pump/sensor 02/02/2024 Encounter Details Date Type Department Care Team (Late st Contact Info) Description 02/02/2024 Telephone [place] [phone] Rachna Espinosa Pump/sensor Social History Tobacco Use [...] * Telephone Encounter - Rachna Espinosa - 02/15/2024 12:46 PM EST Statement of medical necessity and prescription order from [employer]. Filled out. C-peptide & glucose routed Lianet Price will sign. Secretaries will fax. * Telephone Encounter - Rachna Espinosa - 02/02/2024 10:28 AM EDT Received SMN from [employer] Will complete as soon as possible documented in this encounter Plan of Treatment Upcoming Encounters Date Type Department Care Team (Late st Contact Info) Description 05/17/2024 2:30 PM EST Office Visit [place] [address] Alcides Bonilla MD [facility] [place] [address] 04/06/2049 9:00 AM EST Hospital Encounter [place] [address] Harry Guerrero MD [facility] [place] [address] documented as of this encounter Visit Diagnoses Not on filedocumented in this encounter Care Teams Journeyman Operator Assistant Relationship Specialty Start Date End Date Nayla Miramontes MD [address] [place] [address] PCP - General Family Medicine 05/11/21 documented as of this encounter
--- OUTSIDE RECORDS SUMMARY | 2024-03-07 18:55 | XMS_ITS | Encounter Summary ---
Author Organization [facility] Address [facility] [place] [address] Care Team Providers Care Ad Terminal Makeup Operator Name Role Phone Nayla Miramontes MD Primary Care Provider [phone] Reason for Referral * Physical Therapy (Routine) - Closed Specialty Diagnoses / Procedures Referred By Franklin laird Referred To Contact Physical Medicine and Rehab Diagnoses Incontinence of feces, unspecified fecal incontinence type Alcides Bonilla MD [facility] [place] [address] Denis Amaya, PT [address] [address] Referral ID Status Reason Start Date Expiration Date V isits Requested Visits Authorized [id number] Closed Evaluate and Treat 09/05/2022 03/04/2023 12 12 Encounter Details Date Type Department Care Team (Late st Contact Info) Description 09/05/2022 Orders Only [place] [address] Alcides Bonilla MD [facility] [place] [address] Incontinence of feces, unspecified fecal incontinence type Social History Tobacco Use Types Packs/Day Years [...] 2:30 PM EST Office Visit [place] [address] Alcides Bonilla MD [facility] [place] [address] 04/06/2049 9:00 AM EST Hospital Encounter [place] [phone] Harry Guerrero MD [facility] [place] [address] Scheduled Referrals Name Type Priority Associated Diagnoses Orde r Schedule Referral to Physical Therapy Outpatient Referral Routine Incontinence of feces, unspecified fecal incontinence type Ordered: 09/05/2022 documented as of this encounter Visit Diagnoses Diagnosis Incontinence of feces, unspecified fecal incontinence type documented in this encounter Care Teams Ad Terminal Makeup Operator Relationship Specialty Start Date End Date Nayla Miramontes MD [address] [place] [address] PCP - General Family Medicine 05/11/21 documented as of this encounter
--- OUTSIDE RECORDS SUMMARY | 2024-03-07 18:55 | XMS_ITS | Encounter Summary ---
Author Organization [facility] [place] [address] Care Team Providers Care Web Development Instructor Name Role Phone Nayla Miramontes MD Primary Care Provider [phone] Encounter Details Date Type Department Care Team (Late Contact Info) Description 09/15/2022 Telephone [place] [address] Courtney Houston RN Social History Tobacco Use Types Packs/Day Years [...] encounter Miscellaneous Notes * Telephone Encounter - Courtney Houston RN - 09/15/2022 11:48 AM EDT Called pt back to discuss how she would order the Dexcom G7 system. Nurse explained [facility] then [facility] will contact us. documented in this encounter Plan of Treatment Upcoming Encounters Date Type Department Care Team (Late Contact Info) Description 05/17/2024 2:30 PM EST Office [place] [address] Alcides Bonilla MD [facility] [place] [address] 04/06/2049 9:00 AM EST Hospital En[place] [address] Harry Guerrero MD [facility] DR [place] [address] documented as of this encounter Visit Diagnoses Not on filedocumented in this encounter Care Teams Web Development Instructor Relationship Specialty Start Date End Date Nayla Miramontes MD [facility] [address] L[address] [facility] [address] [place] [address] PCP - General Family Medicine 05/11/21 documented as of this encounter
--- OUTSIDE RECORDS SUMMARY | 2024-03-07 18:55 | XMS_ITS | Encounter Summary ---
Author Organization [facility] [place] [address] Care Team Providers Care Harp Action Assembler Name Role Phone Nayla Miramontes MD Primary Care Provider [phone] Encounter Details Date Type Department Care Team (Late st Contact Info) Description 12/05/2022 11:20 AM EDT Office [place] [address] Lianet Price APRN [facility] [place] [address] Type 1 diabetes mellitus with hyperglycemia (Primary Dx); Hypothyroidism, unspecified type; Insulin pump in place Social History Tobacco [...] Sign Reading Time Taken Comments Blood Pressure 154/68 12/05/2022 11:09 AM EDT Pulse 82 12/05/2022 11:09 AM EDT Temperature 36.3 ??C (97.3 ??F) 12/05/2022 11:09 AM E DT Respiratory Rate 20 12/05/2022 11:09 AM EDT Oxygen Saturation 97% 12/05/2022 11:09 AM EDT Inhaled Oxygen Concentration - - Weight 92.7 kg (204 lb 6.4 oz) 12/05/2022 11:09 AM EDT Height 167.6 cm (5' 6) 12/05/2022 11:09 AM EDT Body Mass Index 32.99 12/05/2022 11:09 AM EDT documented in this encounter Patient Instructions * Patient Instructions* Lianet Price APRN - 12/05/2022 11:20 AM EDT Nice to meet you today. Setting changes- Carb ratio change from 10 to 8 - to help not goe as high post meal Change Sensitivity/correction from 25 to 35 - help not drop as much from high Continue Gastroporesis work-up. As far as pump and sensor- Tandem Tslim with control [employer] is tubing - contact company to start process - Madeline is the supervisor ticket sales [phone] or mail line [phone]. The color strainer is Lucia and she will train you when it arrive. Plan a visit with me 1-2 weeks after starting. We will order Dexcom G6 today. You may need to use supplier. We will send to pharmacy. Maybe we use[facility]park if needed. Get flu shot Get Lab done. Schedule routine follow-up in 3 months and sooner for pump start. Message me when you have a start date. documented in this encounter Progress Notes * Lianet Price APRN - 12/05/2022 11:20 AM EDT Images from the original note were not included. Name: Roxann Baxter : 1955 PCP: Nayla Miramontes MD Date: 12/05/22 Reason for visit: Roxann Baxter is a 67 y.o. year old female with Diabetes TYPE 1 referred by Nayla Miramontes for VISIT/FOLLOW UP to the [facility] endocrine clinic for diabetes services. Diagnosed with DM1 age 16 Notable medical comorbidities: hypothyroid, gastroparesis, proliferative retinopathy, HTN, psoriatic arthritis, BMI >30, depression. Would like new pump. Currently on medtronic and warranty is up. Using Samia and wants Dexcom- she reports there are many defective ones and she is tired of this. Tried Dexcom 7 and likes. Reports lows post correcting But some highs after meal. Issues with digestion. Last 3 Hemoglobin A1Cs Lab Results Component Value Date HA1C 8.2 (H) 12/05/2022 HA1C 8.2 (H) 08/26/2022 HA1C 7.6 (H) 08/01/2021 Diabetes Diagnosis Date: 1972 Medication Regimen for Diabetes Care: Humalog in pump Pump Medtronic 630G pump. Started: she is unsure of date - several years ago She reports on a pump since 1997 or 1998 Using [employer] for supplies Sites: Basal rates: Midnight-4am: 0.6 units/hr 4am- 930am: 0.6 units/hr 930am-15:30 : 1.0 unit/hr 15:30-19:00: 1.2 units/hr 19:00-midnight: 1.2 units/hr Total basal- 21.9 Bolus doses: Sensitivity factor 25, insulin to carb 1: 10 Target- 100-130 Glucose Monitoring: Samia 2 Continous or 4 times daily Hypoglycemia Severe Hypoglycemia in Past: no Has not had glucagona nd ordered nasal toay. Hyperglycemia [facility] of [facility]: [facility]. Flu. Induced coma. Diet Following type of diet: she says she needsto be 60 lbs overweight she reports Carb counting: Last visit with ironer hand:none reported Diet Recall: B-2 eggs, slice of toast with smart balance, L- tuna sandwich D-crackers with hummus Exercise Used to work out in gym and free weights in s. Arthritis after that and difficult. She reports knees hurt with walking. History of Diabetes Related Complications and Prevention Eyes: Last Eye Exam: History of Diabetes Retinopathy: yesproliferative retinopathy Hypothyroidism Latest Reference Range & Units 08/13/20 09:38 [...] Patient Vitals for the past 24 hrs: Temp Pulse Resp BP SpO2 12/05/22 1109 36.3 ??C (97.3 ??F) 82 20 154/68 97 % Last cholesterol: Latest Reference Range & Units [...] Sig Taking? meclizine (Antivert) 25 mg tablet Yes b complex vitamins Capsule Take 1 capsule by mouth daily. Yes irbesartan (Avapro) 150 mg tablet Yes levothyroxine (Synthroid) 150 mcg Tablet Take 1 tablet by mouth daily. Patient taking differently: Take 150 mcg by mouth daily. 125 mg on Mon, Thu, Thu and Sat 150 mg on , , and Thursday. Yes desvenlafaxine succinate (PRISTIQ ORAL) Take 200 mg by mouth daily. Yes gabapentin (Neurontin) 300 mg Capsule TK 2 CS PO TID Yes busPIRone (BUSPAR) 5 mg Tablet Take 10 mg by mouth 3 times daily. Yes insulin lispro (HUMALOG) Solution Inject 65 Units subcutaneously continuous. Continuous Via insulinpump Yes melatonin 5 mg Tablet Take 10 mg by mouth nightly. Yes magnesium citrate Solution Take 295 mLs by mouth 2 times daily as needed. Yes Diabetic Supplies, Miscellan. [facility] for Infusion sets faxed to [facility] Yes insulin glargine (LANTUS) Solution Inject 10 Units subcutaneously 2 times daily. Needed for insulinpump failure Indications: type 1 diabetes mellitus Yes atorvastatin (LIPITOR) 40 mg Tablet Take 40 mg by mouth daily. Yes Diabetic Supplies, Miscellan. [facility] Inject 1 each subcutaneously 4 times daily. Faxed pump and supply order to [employer] at [phone]. Dx Code: 250.01 Yes Diabetic Supplies, Miscellan. [facility] Yes MULTI-VITAMIN ORAL Take 1 tablet by mouth daily. Reported on 05/26/2016 Yes trimethobenzamide (TIGAN) 300 mg Capsule Take by mouth 4 times daily as needed. Symbicort 160-4.5 mcg/actuation HFA Aerosol Inhaler as needed. mirtazapine (Remeron) 15 mg Tablet 45 mg as needed. Adalimumab (HUMIRA PEN) 40 mg/0.8 mL Pen Injector Kit Inject 0.8 mLs subcutaneously every 14 days. Patient not taking: Reported on 08/01/2021 celecoxib (CELEBREX) 100 mg Capsule Take 100 mg by mouth 2 times daily. nefazodone (SERZONE) 100 mg Tablet Take 1 tablet by mouth 2 times daily. Patient not taking: Reported on 08/13/2020 bisacodyl (DULCOLAX) [address] 1 suppository rectally daily. Patient not taking: Reported on 08/13/2020 ondansetron (ZOFRAN-ODT) 8 mg Tablet, Rapid Dissolve Take 1 tablet by mouth every 8 hours as neededfor Nausea. Patient not taking: Reported on 08/26/2022 lisinopril (PRINIVIL;ZESTRIL) 20 mg Tablet Take 1 tablet by mouth daily. 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 ROS: General: Weight unchanged HEENT: Vision as outlined above. Respiratory: Denies shortness of breath at rest. Cardiac: Denies recent chest pain. Gastrointestinal: ongoing issues with bowel movements. Urinary: Denies UTIs. No change in urinary symptoms. Extremities: Outlined in HPI. Endocrine: Outlined in HPI. OBJECTIVE BP 154/68 (BP Location (NBP): Right arm, Patient Position: Sitting, BP Cuff Sizes: Large Adult (32-43 cm)) Pulse 82 Temp 36.3 ??C (97.3 ??F) (Temporal) Resp 20 Ht 167.6 cm (5' 6) Wt 92.7 kg (204 lb 6.4 oz) LMP (LMP Unknown) SpO2 97% BMI 32.99 kg/m?? PHYSICAL EXAM: General: Alert and cooperative. Skin: No hypertrophy at injection sites. Skin normal texture and temperature. LABS: Recent Results (from the past 24 hour(s)) Comprehensive metabolic panel (non-fasting) Result Value Ref Range Glucose Lvl 247 (H) 65 - 199 mg/dL BUN 17 8 - 18 mg/dL Creatinine 0.76 0.70 - 1.20 mg/dL Sodium 141 135 - 145 mmol/L Potassium 5.5 (H) 3.5 - 5.0 mmol/L Chloride 103 98 - 107 mmol/L CO2 30 22 - 31 mmol/L Anion Gap 8 5 - 15 mmol/L Calcium 9.6 8.5 - 10.5 mg/dL Total Protein 7.4 6.1 - 8.0 g/dL Albumin 4.4 3.2 - 5.2 g/dL AST 16 0 - 30 unit/L ALT 17 0 - 30 unit/L Alk Phos 71 35 - 105 unit/L Total Bilirubin 0.4 0.2 - 1.3 mg/dL Estimated GFR 86 >=60 mL/min/1.73 m?? TSH Result Value Ref Range TSH 1.64 0.27 - 4.20 mcIU/mL Hemoglobin A1c Result Value Ref Range Hemoglobin A1C 8.2 (H) 4.3 - 5.6 % Est Avg Gluc 189 mg/dL ASSESSMENT: 1. Type 1 diabetes mellitus with hyperglycemia Hemoglobin A1c Comprehensive metabolic panel (non-fasting) Comprehensive metabolic panel (non-fasting) Hemoglobin A1c 2. Hypothyroidism, unspecified type TSH TSH 3. Insulin pump in place This is a 67 yo female with type 1 diabetes Diagnosed age 16 and A1c is above target at 8.2%. Notable medical comorbidities: hypothyroid (TSH currently in range with treatment), gastroparesis, proliferative retinopathy, HTN, psoriatic arthritis, BMI >30, depression. She has been managing with Profilepasser and Easy Pairings (warranty up) and she would like to shift and we spent the visit looking at each of the devices and determining best fit. Prescribed dexcom today and may need durable medical good company but will wait to hear from pharmacy. Also provided tandem info for her to start process of newpump order. She plan to go on a tandem control IQ tslim pump. In the meantime, changes were made toher current settings to get more insulin with meals and less for correction. I am recommending this patient get get new Dexcom device G6 compatible with tandem pump . Patient is on an insulin pump: Diagnosis: Diabetes Mellitus Patient performs SMBG at least 4x per day Patient administers insulin via an insulin pump Patient frequently adjusts meal time insulin doses Patient needs a therapeutic CGM I plan to see this pt every 6 months following this initial prescription of the CGM to assess adherence to their CGM regimen and diabetes treatment plan. PLAN: Nice to meet you today. Setting changes- Carb ratio change from 10 to 8 - to help not goe as high post meal Change Sensitivity/correction from 25 to 35 - help not drop as much from high Continue Gastroporesis work-up. As far as pump and sensor- Tandem Tslim with control [employer] is tubing - contact company to start process - Madeline is the supervisor ticket sales [phone] or mail line [phone]. The color strainer is Lucia and she will train you when it arrive. Plan a visit with me 1-2 weeks after starting. We will order Dexcom G6 today. You may need to use supplier. We will send to pharmacy. Maybe we use[employer] if needed. Get flu shot Get Lab done. Schedule routine follow-up in 3 months and sooner for pump start. Message me when you have a start date. POST VISIT FOLLOW-up - requested patient repeat pottasium. Restrict high pottasium foods. Total time associated with visit: 50 min This includes review of all pumps and CGM and pump process in our clinic, exam, time with patient in exam room, lab order, lab review and documentation, prescriptions. CGM interpretation completed in this visit. Lianet Price, BRAN, INDUSTRIAL GREEN SYSTEMS DESIGNER-BC, CDE Section of Endocrinology * Lianet Price APRN - 12/05/2022 11:20 AM EDT Images from the original note were not included. Patient: Roxann Baxter Date of interpretation: 12/05/2022 CGM 14 days of Continuous Glucose monitoring data was reviewed and interpreted today. Data was used to make recommendations to the diabetes regimen and care plan. Higher post meals and low post corrections. documented in this encounter Plan of Treatment Upcoming Encounters Date Type Department Care Team (Late st Contact Info) Description 05/17/2024 2:30 PM EST Office [place] [address] Alcides Bonilla MD [facility] [place] [address] 04/06/2049 9:00 AM EST Hospital Encounter [place] [address] Harry Guerrero MD [facility] DR GASTROENTER[place] [address] documented as of this encounter Procedures Procedure Name Priority Date/Time Associated Diagnosis Comments TSH Routine 12/05/2022 12:55 PM EDT Hypothyroidism, unspecified type HEMOGLOBIN A1C Routine 12/05/2022 12:55 PM EDT Type 1 diabetes mellitus with hyperglycemia COMPREHENSIVE METABOLIC PANEL Routine 12/05/2022 12:55 PM EDT Type 1 diabetes mellitus with hyperglycemia documented in this encounter Results * (ABNORMAL) Comprehensive metabolic panel (non-fasting) (12/05/2022 12:55 PM EDT) Glucose 247(H) 65 - 199 mg/dL [facility] Comment:Diabetes: >=200 mg/d L plus symptoms Blood Urea Nitrogen 17 8 - 18 mg/dL [facility] Creatinine 0.76 0.70 - 1.20 mg/dL [facility] Sodium 141 135 - 145 mmol/L [facility] Potassium 5.5(H) 3.5 - 5.0 mmol/L [facility] Comment: Please note: ??Patients with WBC >100,000 may have falsely elevated Potassium levels. ??For accurate Potassium quantification in these patients send serum separator tube (gold top) for subsequent determinations. ??Contact the Clinical Chemistry Laboratory if there are any questions. Chloride 103 98 - 107 mmol/L [facility] Carbon Dioxide 30 22 - 31 mmol/L [facility] Anion Gap 8 5 - 15 mmol/L [facility] Calcium 9.6 8.5 - 10.5 mg/dL [facility] Protein, Total 7.4 6.1 - 8.0 g/dL [facility] Albumin 4.4 3.2 - 5.2 g/dL [facility] Aspartate Aminotransferase 16 0 - 30 unit/L [facility] Alanine Aminotransferase 17 0 - 30 unit/L [facility] Alkaline Phosphatase 71 35 - 105 unit/L [facility] Bilirubin, Total 0.4 0.2 - 1.3 mg/dL [facility] Est Glomerular Filtration Rate 86 >=60 mL/min/1. 73 m?? [facility] Comment: This patient's estimated GFR [...] Agency Comment Spec In Lab Lianet Price JEEPER OPERATOR CHEMISTRY ORDER DAKSHA Performing Organization Address [facility] Co de Phone Number [facility] [place] [address] * TSH (12/05/2022 12:55 PM EDT) Thyroid Stimulating Hormone 1.64 0.27 - 4.20 mcIU/mL [facility] Comment: Reference Interval (mcIU/mL): Females: ??First Trimester: 0.23-3.88 ??Second Trimester: 0.22-3.90 ??Third Trimester: 0.44-4.66 Blood 12/05/2022 12:5 5 PM EDT 12/05/2022 1:06 PM EDT Narrative Resulting Agency Comment Spec In Lab Lianet Price JEEPER OPERATOR CHEMISTRY ORDER DAKSHA Performing Organization Address [facility] de Phone Number [facility] [place] [address] * (ABNORMAL) Hemoglobin A1c (12/05/2022 12:55 PM EDT) Hemoglobin A1c 8.2(H) 4.3 - 5.6 % [facility] Comment: Reference Range: 4.3 - [...] Mellitus, Diabetes Care 2013; 36: Suppl. 1, S67-74 Estimated Average Glucose 189 mg/dL [facility] Comment: eAG equivalents for HbA1c [...] into estimated average glucose values. ??Diabetes Care 2008:31(8):6478-7727. Blood 12/05/2022 12:5 5 PM EDT 12/05/2022 1:06 PM EDT Narrative Resulting Agency Comment Spec In Lab Lianet Price JEEPER OPERATOR CHEMISTRY ORDER DAKSHA [facility] [place] [address] documented in this encounter Visit Diagnoses Diagnosis Type 1 diabetes mellitus with hyperglycemia- Primary Type I (juvenile type) diabetes mellitus without mention of complication, not stated as uncontrolled Hypothyroidism, unspecified type Insulin pump in place Insulin pump status documented in this encounter Care Teams Harp Action Assembler Relationship Specialty Start Date End Date Nayla Miramontes MD [address] [place] [address] PCP - General Family Medicine 05/11/21 documented as of this encounter
--- OUTSIDE RECORDS SUMMARY | 2024-03-07 18:55 | XMS_ITS | Encounter Summary ---
Author Organization [facility] [place] [address] Care Team Providers Care Global Head Advertiser Solutions Name Role Phone Nayla Miramontes MD Primary Care Provider [phone] Reason for Visit * Reason Comments Specialty Pharmacy Review Humira Encounter Details Date Type Department Care Team (Late st Contact Info) Description 10/08/2022 Specialty [place] [phone] Keiyr Arnett, THERMAL CUTTING TRACER MACHINE OPERATOR Social History Tobacco Use Types Packs/Day Years [...] 2:30 PM EST [place] [phone] Alcides Bonilla MD [facility] [place] [address] 04/06/2049 9:00 AM EST Hospital [place] [phone] Harry Guerrero MD [facility] [place] [address] documented as of this encounter Visit Diagnoses Not on filedocumented in this encounter Care Teams Global Head Advertiser Solutions Relationship Specialty Start Date End Date Nayla Miramontes MD [address] [facility] [address] [place] [address] PCP - General Family Medicine 05/11/21 documented as of this encounter
--- OUTSIDE RECORDS SUMMARY | 2024-03-07 18:56 | XMS_ITS | Encounter Summary ---
Author Organization [facility] [place] [address] Care Team Providers Care Computer Application Developer Name Role Phone Nayla Miramontes MD Primary Care Provider [phone] Reason for Visit * Reason Onset Date Comments Bumped Appointment 08/12/2019 Encounter Details Date Type Department Care Team (Late st Contact Info) Description 08/12/2019 [place] [address] Ary Huston [facility] [place] [address] Bumped Appointment Social History Tobacco Use Types Packs/Day Years Used Date Smoking Tobacco: Former Cigarettes Q uit: 05/06/1984 Smokeless Tobacco: Never Alcohol Use Standard Drinks/Week Comments No 0 (1 standard drink = 0.6 oz pur e alcohol) once a year Sex and Gender Information Value Date Recorded Sex Assigned at Not on file Gender Identity Not on file Sexual Orientation Not on file documented as of this encounter Miscellaneous Notes * Telephone Encounter - Vesna Martínez - 08/16/2019 12:11 PM EDT RSC 09/01/19. * Telephone Encounter - Vesna Martínez - 08/12/2019 3:32 PM EDT Appt BMP 2x due to PHC. Pt to call [facility] appt on 08/22/19 appt emilie Huston for a RADHA. Appts avail Wk of 08/14 and 08/22-Sat 08/27/19 per pt choice. documented in this encounter Plan of Treatment Upcoming Encounters Date Type Department Care Team (Late st Contact Info) Description 05/17/2024 2:30 PM EST Office [place] [phone] Alcides Bonilla MD [facility] [place] [address] 04/06/2049 9:00 AM EST Hospital Encounter [place] [phone] Harry Guerrero MD [facility] [address] [place] [address] documented as of this encounter Visit Diagnoses Not on filedocumented in this encounter Care Teams Computer Application Developer Relationship Specialty Start Date End Date Nayla Miramontes MD [facility] [address] [place] [address] PCP - General 05/21/11 05/10/21 documented as of this encounter
--- OUTSIDE RECORDS SUMMARY | 2024-03-07 18:56 | XMS_ITS | Encounter Summary ---
Author Organization [facility] Address [facility] [place] [address] Care Team Providers Care Can Filling Machine Operator Name Role Phone Nayla Miramontes MD Primary Care Provider [phone] Reason for Visit * Reason Comments Specialty Pharmacy Review Humira 40mg/0. 8ml PNKT Encounter Details Date Type Department Care Team (Late st Contact Info) Description 08/01/2021 Specialty [place] [phone] Briana Coleman, [facility] Social History Tobacco Use Types Packs/Day Years [...] 2:30 PM EST Office [place] [phone] Alcides Bonilla MD [facility] [place] [address] 04/06/2049 9:00 AM EST Hospital Encounter [place] [address] Harry Guerrero MD [facility] [address] [place] [address] documented as of this encounter Visit Diagnoses Not on filedocumented in this encounter Care Teams Can Filling Machine Operator Relationship Specialty Start Date End Date Nayla Miramontes MD [facility] [address] [facility] [address] [place] [address] PCP - General Family Medicine 05/11/21 documented as of this encounter
--- OUTSIDE RECORDS SUMMARY | 2024-03-07 18:56 | XMS_ITS | Encounter Summary ---
Author Organization [facility] [place] [address] Care Team Providers Care Network Intelligence Analyst Name Role Phone Nayla Miramontes MD Primary Care Provider [phone] Encounter Details Date Type Department Care Team (Latest Contact Info) Description 08/26/2022 Travel Social History Tobacco Use Types Packs/Day [...] 2:30 PM EST Office [place] [phone] Alcides Bonilla MD [facility] [place] [place] [address] 04/06/2049 9:00 AM EST Hospital En[place] [phone] Harry Guerrero MD [facility] [place] [address] documented as of this encounter Visit Diagnoses Not on filedocumented in this encounter Care Teams Network Intelligence Analyst Relationship Specialty Start Date End Date Nayla Miramontes MD [address] [facility] 1 [place] [address] PCP - General Family Medicine 05/11/21 documented as of this encounter
--- OUTSIDE RECORDS SUMMARY | 2024-03-07 18:56 | XMS_ITS | Encounter Summary ---
Author Organization [facility] [place] [address] Care Team Providers Care Form Carpenter Name Role Phone Nayla Miramontes MD Primary Care Provider [phone] Encounter Details Date Type Department Care Team (Late st Contact Info) Description 03/10/2022 Notes [place] [address] Radha Decker APRN [facility] [place] [address] Social History Tobacco Use Types Packs/Day Years [...] as of this encounter Progress Notes * Radha Decker APRN - 03/10/2022 11:33 AM EST Endoscopy Triage Review Please schedule as ordered by Dr. Irene Decker APRN documented in this encounter Plan of Treatment Upcoming Encounters Date Type Department Care Team (Late st Contact Info) Description 05/17/2024 2:30 PM EST Office [place] [address] Alicdes Bonilla MD [facility] [place] [address] 04/06/2049 9:00 AM EST Hospital Encounter Gastroenterology at [place] [phone] Harry Guerrero MD [facility] [place] [address] documented as of this encounter Visit Diagnoses Not on filedocumented in this encounter Care Teams Form Carpenter Relationship Specialty Start Date End Date Nayla Miramontes MD [facility] [address] [facility] [address] [place] [address] PCP - General Family Medicine 05/11/21 documented as of this encounter
--- OUTSIDE RECORDS SUMMARY | 2024-03-07 18:56 | XMS_ITS | Encounter Summary ---
[place] [address] Care Team Providers Care Storage Specialist Name Role Phone Nayla Miramontes MD Primary Care Provider [phone] Reason for Referral * Consultation (Routine) - Closed Specialty Diagnoses / Procedures Referred By Franklin t Referred To Contact Endocrinology Diagnoses Poor control type I diabetes mellitus Nayla Miramontes MD [address] [place] [address] [facility] [address] [place] [phone] Referral ID Status Reason Start Date Expiration Date V isits Requested Visits Authorized [id number] Closed Consult, Test & Treat PCP Updated and/or Approved 01/09/2022 01/09/2023 6 6 Encounter Details Date Type Department Care Team (Latest Contact Info) Description 01/09/2022 Transcribe Orders eDH Incoming Referrals [phone] Nayla Miramontes MD [address] [place] [address] Poor control type I diabetes mellitus Social History Tobacco Use Types Packs/Day Years [...] 2:30 PM EST Office [place] [phone] Alcides Bonilla MD [facility] [place] [address] 04/06/2049 9:00 AM EST Hospital Encounter Gastroenterology at [place] [phone] Harry Guerrero MD [facility] [place] [address] Scheduled Referrals Name Type Priority Associated Diagnoses Order Schedule Referral to Endocrinology Outpatient Referral Routine Poor control type I diabetes mellitus Ordered: 01/09/2022 documented as of this encounter Visit Diagnoses Diagnosis Poor control type I diabetes mellitus Type I (juvenile type) diabetes mellitus without mention of complication, uncontrolled documented in this encounter Care Teams Storage Specialist Relationship Specialty Start Date End Date Nayla Miramontes MD [address] [place] [address] PCP - General Family Medicine 05/11/21 documented as of this encounter
--- OUTSIDE RECORDS SUMMARY | 2024-03-07 18:56 | XMS_ITS | Encounter Summary ---
Author Organization Formerly [facility] [place] [address] Care Team Providers Care Management Liaison Name Role Phone Nayla Miramontes MD Primary Care Provider [phone] Encounter Details Date Type Department Care Team (Late st Contact Info) Description 07/22/2022 Telephone [place] [phone] Gage July Social History Tobacco Use Types Packs/Day Years [...] encounter Miscellaneous Notes * Telephone Encounter - Gage July - 07/22/2022 11:14 AM EDT Roxann Baxter [id number] Diagnosis/Indication: diarrhea and dyspepsia - needs pediatric colonoscope Please review patient chart to confirm if previous Endoscopy procedure was performed within system. If yes, take note of Anesthesia type used. If previous procedure found, and with MAC/propofol Anesthesia support was used, schedule this procedure with Anesthesia and skip the Anesthesia portion of questions. If not performed within system, not performed at all, or performed with IVCS, ask Anesthesia questions. SCHEDULING QUESTIONS (ask all patient these questions) 1. Have you ever had a/an Upper Endoscopy & Colonoscopy before? Yes: Date 01/01/2018 If yes, did you have any problems with the procedure (such as waking up during the procedure, pain or difficulties afterwards, etc.)? No What type of sedation was used: IV Conscious Sedation 2. Do you take any blood thinners or have you been diagnosed with a bleeding disorder that increases your risk of bleeding with procedures? No 3. Do you have a Pacemaker or Defibrillator device? If yes, send pool message to Cardiology with patient information and date or procedure. No 4. Are you a diabetic? If yes, call PCP/managing provider to discuss use of prep and any questions or concerns related to. Yes: Controlled by diet or medication? Both 5. Do you take any iron supplements or vitamins that contain iron? No 6. Do you have a preference regarding the gender of your provider? No ANESTHESIA QUESTIONS (YES to any question, please book with Anesthesia support) 7. Have you ever been diagnosed with Pulmonary Hypertension and/or Congential Heart Disease? No 8. Have you been diagnosed with A-Fib (atrial fibrillation) that is NOT being well controled with medications? No 9. Have you ever had an allergic or adverse reaction to Fentanyl or Versed? No 10. Have you had a problem with sedation or anesthesia? (Waking up during procedure, extreme confusion after, etc.) No 11. Do you have a diagnosis of Obstructive Sleep Apnea that requires the use of a c-pap machine? No 12. Do you use an oxygen tank at home? No 13. Do you use a rescue inhaler more than twice per day? (COPD, severe asthma) No 14. Do you experience breathing problems when you lay flat for a period of time? No 15. Do you take prescription narcotic pain medications, including suboxone or methodone? No SCHEDULING CONFIRMATIONS: Please note any and all parts of your conversation with the patient here. 16. We offer all new patients an opportunity to have an appointment with one of our associate care providers to learn more about your upcoming procedure, ask questions and get answers. These appointments are offered via telehealth. Would you be interested in scheduling this appointment? (Only ask if NEW referral patient; skip this question if [facility] provider ordered the procedure.) No 17. Is there any other information or concerns you would like to us to share with your care team inrelation to your upcoming scheduled procedure? No 18. You must have a responsible green party who will drive you to your procedure, stay on campus for the entire duration of your procedure, and drive you home from your procedure. Who will likely be your courtesy car driver for the procedure? Estimated body mass index is 31.62 kg/m?? as calculated from the following: Height as of 08/01/21: 167.6 cm (5' 6). Weight as of 08/01/21: 88.9 kg (195 lb 14.4 oz). Age:66 y.o. documented in this encounter Plan of Treatment Upcoming Encounters Date Type Department Care Team (Late st Contact Info) Description 05/17/2024 2:30 PM EST Office [place] [phone] Alcides Bonilla MD [facility] [place] [address] 04/06/2049 9:00 AM EST Hospital Encounter [place] [address] Harry Guerrero MD [facility] [place] [address] documented as of this encounter Visit Diagnoses Not on filedocumented in this encounter Care Teams Management Liaison Relationship Specialty Start Date End Date Nayla Miramontes MD [address] [place] [address] PCP - General Family Medicine 05/11/21 documented as of this encounter
--- OUTSIDE RECORDS SUMMARY | 2024-03-07 18:56 | XMS_ITS | Encounter Summary ---
Author Organization [facility] [place] [address] Care Team Providers Care Carousel Operator Name Role Phone Nayla Miramontes MD Primary Care Provider [phone] Reason for Visit * Reason Onset Date Comments Bumped Appointment 06/22/2019 Encounter Details Date Type Department Care Team (Late st Contact Info) Description 06/22/2019 [place] [address] Ary Huston OD [facility] [address] Bumped Appointment Social History Tobacco Use Types [...] * Telephone Encounter - Vesna Martínez - 07/07/2019 10:55 AM EDT Called pt: RSC BMP due to PHC appt on 06/29/19 RADHA appt w Robel to 08/22/19. Pt to RSC if uncomfortable w date when time grows closer. * Telephone Encounter - Kimmy Thompson COA - 06/22/2019 3:56 PM EDT Left msg canceled appt for Thu06/29/2019 documented in this encounter Plan of Treatment Upcoming Encounters Date Type Department Care Team (Late st Contact Info) Description 05/17/2024 2:30 PM EST Office [place] [address] Alcides Bonilla MD [facility] [place] [address] 04/06/2049 9:00 AM EST Hospital En[place] [phone] Harry Guerrero MD [facility] [place] [address] documented as of this encounter Visit Diagnoses Not on filedocumented in this encounter Care Teams Carousel Operator Relationship Specialty Start Date End Date Nayla Miramontes MD [facility] [address] [place] [address] PCP - General 05/21/11 05/10/21 documented as of this encounter
--- OUTSIDE RECORDS SUMMARY | 2024-03-07 18:56 | XMS_ITS | Encounter Summary ---
Author [facility] [place] [address] Care Team Providers Care Clip Baker Name Role Phone Nayla Miramontes MD Primary Care Provider [phone] Reason for Visit * Diagnostic Test (Routine) - Closed Specialty Diagnoses / Procedures Referred By Franklin laird Referred To Contact Gastroenterology Diagnoses Dysphagia, unspecified type BUMP 18 HREM dysphagia Procedures High Resolution Esophageal Manometry PRG UNLISTED DIAGNOSTIC GASTROENTEROLOGY PROCEDURE PRG ESOPHAGEAL MOTILITY STUDY PRG GERD TST W NASAL IMPEDENCE ELECTROD BUMP 11/21 HREM dysphagia Alcides Bonilla MD [facility] [place] [address] [facility] [address] [place] [address] Referral ID Status Reason Start Date Expiration Date V isits Requested Visits Authorized [id number] Closed Test Only 08/01/2021 08/01/2022 1 1 Encounter Details Date Type Department Care Team (Latest Contact Info) Description 08/04/2022 2:00 PM EDT Procedure [place] [address] Dysphagia, unspecified type Social History Tobacco Use Types Packs/Day [...] as of this encounter Progress Notes * Dionna Richard RN - 08/04/2022 2:00 PM EDT A description of the esophageal manometry procedure was provided to the patient. All questions wereanswered and the patient verbalized understanding. The HREM catheter was placed via the left naris without difficulty. The esophageal manometry procedure was performed and the catheter was removed. The patient tolerated the procedure well. * Alcides Bonilla MD - 08/04/2022 2:00 PM EDT Images from the original note were not included. HIGH-RESOLUTION ESOPHAGEAL MANOMETRY PROCEDURE NOTE Patient: Roxann Baxter [address]: [address] [place] [id number] : 1955 Date of service: 08/04/2022 Indication: Dysphagia Procedure: The patient arrived after an overnight fast. After verbal consent, a Ginny motility catheter with 36 circumferential sensors on 1 cm spacing with impedance sensors was inserted transnasally after application of topical anesthesia to the nasal passage. The catheter was positioned so that at least 2distal sensors were in the stomach and 2 proximal sensors were located above the UES. A 3-5 minute a cclimation period was provided followed by 10 wet swallows of 5 cc of water while supine. Normal values while supine: Upper esophageal sphincter residual pressure: < 12 mmHg Upper esophageal sphincter relaxation duration: > 480 msec Distal contractile integral (DCI): > 450 and < 8,000 mmHg x cm x s Distal latency time: > 4.5 sec Integrated EGJ relaxation pressure (IRP): < 15 mmHg Normal EGJ resting pressure (respiratory mean): 15-34 mmHg Findings: - Upper Esophageal Sphincter: normal mean residual pressure and relaxation duration - Body: 0% of swallows failed. 0% of swallows had premature contractions with shortened distal latency time. The remaining 100% of swallows were peristaltic, includin% of swallows with hypercontractility, 40% of swallows with weak peristalsis, and 10% of swallows with large breaks (>5 cm) in the 20mmHg isocontour line. - Esophagogastric Junction: Midpoint located 38 cm from the nares, and proximal extent located at 36 cm. The lower esophageal sphincter is located at the same level as the crural diaphragm. Normal resting pressure (mean 40 mmHg) and elevated IRP in 70% of swallows (median 17.8 mmHg). - Bolus transit: Liquid boluses cleared in 50% of swallows. - Five subsequent upright swallows: Integrated relaxation pressure: 13 mmHg (normal <12 mmHg) - Multiple rapid swallows: Peristaltic reserve: reduced (ratio of post-multiple rapid swallow DCI to median DCI on 10 supine swallows is <1.0) Deglutitive inhibition: normal deglutitive inhibition (DCI <100 mmHg*s*cm) during the maneuver Integrated relaxation pressure: 7 mmHg (normal <12 mmHg) - Rapid drink challenge: Esophageal body contractility: normal deglutitive inhibition (DCI <100 mmHg*s*cm) during the maneuver Integrated relaxation pressure: 0 mmHg (normal <12 mmHg) Outreach Specialist swallow: Impressions based on Houston Classification v4.0: EGJ outflow obstruction as a manometry finding of unclear significance without evidence of esophageal dysmotility, per Houston 4.0. There are no features of hypercontractility or compartmental pressurization to support clinically significant EGJ outflow obstruction on this otherwise normal study. and The IRP normalizes to 0 mmHg on at least one provocative maneuver, thereby not consistent with clinically significant EGJ outflow obstruction. If the patient has dysphagia and/or chest pain, consider upper endoscopy and/or double contrast barium esophagram to exclude structural causes such as subtle peptic stricture or Schatzki ring or eosinophilic esophagitis, if not already performed. In the a bsence of dysphagia and/or chest pain, this is not a clinically significant finding per Houston 4.0. *These findings assume that mechanical obstruction has been ruled out. Alcides Bonilla MD, [facility] Section of Gastroenterology and Hepatology [facility] [place] [address] [address] V: [phone] F: [phone] CC/EC: Nayla Miramontes MD [facility] [address] [address] documented in this encounter Plan of Treatment Upcoming Encounters Date Type Department Care Team (Late st Contact Info) Description 05/17/2024 2:30 PM EST Office [place] [address] Alcides Bonilla MD [facility] DR [place] [address] 04/06/2049 9:00 AM EST Hospital Encounter [place] [phone] Harry Guerrero MD [facility] DR GASTROENTEROLOGY [place] [address] documented as of this encounter Visit Diagnoses Diagnosis Dysphagia, unspecified type documented in this encounter Care Teams Clip Baker Relationship Specialty Start Date End Date Nayla Miramontes MD [address] [place] [address] PCP - General Family Medicine 05/11/21 documented as of this encounter
--- OUTSIDE RECORDS SUMMARY | 2024-03-07 18:56 | XMS_ITS | Encounter Summary ---
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 ??For accurate Potassium quantification in these patients send serum separator tube (gold top) for subsequent determinations. ??Contact the Clinical Chemistry Laboratory if there are any questions. Chloride 104 98 - 107 mmol/L [facility] Carbon Dioxide 30 22 - 31 mmol/L [facility] Anion Gap 7 5 - 15 mmol/L [facility] Calcium 9.3 8.5 - 10.5 mg/dL [facility] Est Glomerular Filtration Rate 75 >=60 mL/min/1. 73 m?? [facility] Comment: This patient? s estimated glomerular filtration rate (eGFR) is between 75 mL/min/1.73 m2 (patients with less muscle mass) and 86 mL/min/1.73 m2 (patients with more muscle mass) as determined by the CKD-EPI equation. Assessment of eGFR is not appropriate when creatinine concentrations are rapidly changing. For clinical decisions where creatinine clearance will affect therapy, a 24-hour urine creatinine clearance may be advised. Assignment of CKD stage 1 - 5 for patients with an eGFR near the transition point between stages may be based on clinical assessment of muscle mass and symptoms in addition to eGFR. Blood specimen (specimen) 08/13/2020 9:34 AM EDT 08/13/2020 9:46 AM EDT Narrative Resulting Agency Comment Spec In Lab Gloria Pimentel MD CHEMISTRY ORDERABLES [facility] [place] [address] * (ABNORMAL) Hemoglobin A1c (08/13/2020 9:34 AM EDT) Hemoglobin A1c 9.4(H) 4.3 - 5.6 % [facility] Comment: Reference Range: 4.3 - 5.6% [...] Mellitus, Diabetes Care 2013; 36: Suppl. 1, X68-75 Estimated Average Glucose 223 mg/dL [facility] Comment: eAG equivalents for HbA1c percentages: [...] into estimated average glucose values. ??Diabetes Care 2008:31(8):8378-9258. 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
--- OUTSIDE RECORDS SUMMARY | 2024-03-07 18:56 | XMS_ITS | Encounter Summary ---
Author Organization [facility] [place] [address] Care Team Providers Care Operations Planner Name Role Phone Nayla Miramontes MD Primary Care Provider [phone] Encounter Details Date Type Department Care Team (Latest Contact Info) Description 07/08/2021 1:45 PM EDT Office [place] [address] Ariel Hernandez MD [facility] [place] [address] Type 1 diabetes mellitus with proliferative retinopathy [...] Sign Reading Time Taken Comments Blood Pressure 134/67 07/08/2021 1:37 PM EDT Pulse 90 07/08/2021 1:37 PM EDT Temperature 36.3 ??C (97.4 ??F) 07/08/2021 1:37 PM ED T Respiratory Rate - - Oxygen Saturation 99% 07/08/2021 1:37 PM EDT Inhaled Oxygen Concentration - - Weight 86.8 kg (191 lb 6.4 oz) 07/08/2021 1:37 P M EDT Height 167.6 cm (5' 6) 07/08/2021 1:37 PM EDT Body Mass Index 30.89 07/08/2021 1:37 PM EDT documented in this encounter Patient Instructions * Patient Instructions* Ariel Hernandez MD - 07/08/2021 2:05 PM EDT Fasting labs at [facility] Increase carb ratio with dinner (4p-8pm) documented in this encounter Progress Notes * Ariel Hernandez MD - 07/08/2021 1:45 PM EDT Ms. Roxann Baxter is an 65 y.o. female who presents for ongoing care of Diabetes type [address] Pimentel, has also seen Molly Funez CLIP WRAPPER in past Last A1c 08/2020 was 9.4% Interval history: Diagnosed with DM1 age 40 Notable medical comorbidities: hypothyroid, gastroparesis, proliferative retinopathy, HTN, psoriatic arthritis, BMI >30 Unfortunately today she tells me that she had to leave her home quickly and actually forgot her pump. She has not upgraded her pump since the last visit and believes it is the 630G. She uses the freestyle samia CGM system and checks glucose 5 times daily or more. When she arrived, her glucose on samia was 320 mg/dL she feels well. She has not taken insulin in 2-3 hours She believes that her overall glycemic control is usually fairly good. She does note a problem withpost dinner hypergylcemia (she eats an early dinner) that might be worsened to some extent by a bedtime snack (strawberries, triscuit). She does cover the snack with insulin but tells me the snack/insulin administration is done with a some nervousness about overnight hypoglycemia. She typicaly boluses after a meal given her known gastroparesis. She is not familiar with using the extended bolus function. She believes her pump settings are unchanged since the last visit: Current DM meds Regimen: Medtronic 630G pump. ?? Basal rates: ?? 12 AM 0.575 ?? 4 AM 0.575 ?? 9:30a 0.700 ?? 3:30p 0.825 19:00 0.775 Bolus doses: Sensitivity factor 30, insulin to carb 1: 12 changes sets every 3 days. Eye doctor: being seen soon at [facility] for known retinopathy Feet: No problems Covid vaccine status: getting second booster soon Current Outpatient Medications: ??? trimethobenzamide (TIGAN) 300 mg Capsule, Take by mouth 4 times daily as needed., Disp: , Rfl: ??? Symbicort 160-4.5 mcg/actuation HFA Aerosol Inhaler, as needed., Disp: , Rfl: ??? levothyroxine (SYNTHROID) 175 mcg Tablet, Take 175 mcg by mouth daily., Disp: , Rfl: ??? gabapentin (Neurontin) 300 mg Capsule, TK 2 CS PO TID, Disp: , Rfl: ??? mirtazapine (Remeron) 15 mg Tablet, 45 mg nightly., Disp: , Rfl: ??? busPIRone (BUSPAR) 5 mg Tablet, Take 10 mg by mouth 3 times daily., Disp: , Rfl: ??? Adalimumab (HUMIRA PEN) 40 mg/0.8 mL Pen Injector Kit, Inject 0.8 mLs subcutaneously every 14 days. (Patient not taking: Reported on 05/31/2018), Disp: 3 kit, Rfl: 3 ??? insulin lispro (HUMALOG) Solution, Inject 65 Units subcutaneously continuous. Continuous Via insulin pump, Disp: 60 mL, Rfl: 3 ??? melatonin 5 mg Tablet, Take 5 mg by mouth nightly., Disp: , Rfl: ??? magnesium citrate Solution, Take 295 mLs by mouth 2 times daily as needed. (Patient not taking:Reported on 08/13/2020), Disp: 590 mL, Rfl: 5 ??? sodium phosphates (FLEET) Enema, Place 1 Bottle rectally once as needed for Constipation for upto 1 dose. (Patient not taking: Reported on 08/13/2020), Disp: 135 mL, Rfl: 3 ??? Diabetic Supplies, Miscellan. Misc, [facility] for Infusion sets faxed to [facility], Disp: 100 each, Rfl: 12 ??? insulin glargine (LANTUS) Solution, Inject 10 Units subcutaneously 2 times daily. Needed for insulin pump failure Indications: type 1 diabetes mellitus (Patient not taking: Reported on 05/12/2018),Disp: 10 mL, Rfl: 0 ??? atorvastatin (LIPITOR) 40 mg Tablet, Take 40 mg by mouth daily., Disp: , Rfl: ??? celecoxib (CELEBREX) 100 mg Capsule, Take 100 mg by mouth 2 times daily., Disp: , Rfl: ??? nefazodone (SERZONE) 100 mg Tablet, Take 1 tablet by mouth 2 times daily. (Patient not taking: Reported on 08/13/2020), Disp: 30 tablet, Rfl: 0 ??? Diabetic Supplies, Miscellan. [facility], Inject 1 each subcutaneously 4 times daily. [phone]. Dx Code: 250.01, Disp: 100 each, Rfl: 12 ??? Diabetic Supplies, Miscellan. [facility] faxed to [facility], Disp: 100 each, Rfl: 12 ??? bisacodyl (DULCOLAX) 10 mg Suppository, Place 1 suppository rectally daily. (Patient not taking: Reported on 08/13/2020), Disp: 60 suppository, Rfl: 3 ??? ondansetron (ZOFRAN-ODT) 8 mg Tablet, Rapid Dissolve, Take 1 tablet by mouth every 8 hours as needed for Nausea. (Patient not taking: Reported on 08/13/2020), Disp: 20 tablet, Rfl: 11 ??? lisinopril (PRINIVIL;ZESTRIL) 20 mg Tablet, Take 1 tablet by mouth daily., Disp: 30 tablet, Rfl: ??? MULTI-VITAMIN ORAL, Take 1 tablet by mouth daily. Reported on 05/26/2016, Disp: , Rfl: Past Medical History: Diagnosis Date ??? Anxiety ??? Arthritis ??? Asthma ??? Cortical cataract 05/05/2011 ??? Diabetes mellitus ??? GERD (gastroesophageal reflux disease) ??? Hyperlipidemia ??? Hypertension ??? PDR (proliferative diabetic retinopathy) 05/25/2011 ??? Skin disease ??? Thyroid disease Patient Active Problem List Diagnosis ??? Chronic pain of both knees ??? Pain in both hands ??? Osteoarthritis ??? Chronic pain of both shoulders ??? Morning joint stiffness ??? Bilateral hip pain ??? Fecal incontinence ??? Morbid obesity ??? MDD (major depressive disorder), recurrent episode, moderate ??? Presence of insulin pump Overview Note: Medtronic ??? Pseudophakia of both eyes (OD - 10/17/14, OS - 09/26/14) ??? Urinary incontinence ??? Diabetic retinopathy ??? Vitreous hemorrhage of right eye ??? IDDM (insulin dependent diabetes mellitus) ??? Dysphagia ??? Chronic constipation ??? PDR (proliferative diabetic retinopathy) ??? Scoliosis ??? Chronic bilateral low back pain without sciatica ??? Seborrheic keratosis ??? Solar lentigo ??? Xerosis cutis ??? Pruritus ??? Nuclear sclerosis ??? Proliferative diabetic retinopathy of both eyes.-mild resolving bilateral vitreous hemorrhages.No traction. Good PRP. ??? Psoriatic arthritis.currently on Hydroxychloroquine. No signs of hydroxychloroquine retinopathy. Recommend close followup. ??? PDR (proliferative diabetic retinopathy) Overview Note: ??? Cortical cataract ??? Retinal neovascularization of right eye ??? Vitreous hemorrhage of left eye ??? PSC (posterior subcapsular cataract), bilateral Overview Note: ??? Type 1 diabetes mellitus ??? Reflux esophagitis Overview Note: ??? Gastritis ??? Anasarca Overview Note: ??? DKA (diabetic ketoacidoses) Overview Note: ??? Hypertension Overview Note: ??? Hyperlipidemia ??? Hypothyroidism ??? Psoriasis ??? Depression ??? Iron deficiency ??? Asthma ??? Microcytic anemia ??? GERD (gastroesophageal reflux disease) Overview Note: ??? Giron's esophagus ??? Diabetic retinopathy associated with type 1 diabetes mellitus ??? Diabetes mellitus Overview Note: Dx replacement utility run on deactivated IMO Dx [id number] Physical Exam: BP 134/67 Pulse 90 Temp 36.3 ??C (97.4 ??F) Ht 167.6 cm (5' 6) Wt 86.8 kg (191 lb 6.4 oz) LMP (LMP Unknown) SpO2 99% BMI 30.89 kg/m?? General: no acute distress, pleasant, sitting comfortably Face: wearing mask Neck: no supraclavicular fat pads; trachea midline Respiratory: symmetrical chest expansion, breathing comfortably on room air Cardiovascular: 2+ DP pulses, regular rhythm Musculoskeletal: moving all 4 extremities normally; normal female musculature Skin: normal temperature/texture, no foot wounds Neurological: no tremors; normal sensation on feet to 10g monofilament Psychological: alert/oriented to person, place, time; normal affect; memory intact; normal judgement/insight Radiology Studies: Laboratory Data: Assessment / Plan: 1) Diabetes Mellitus Type 1, uncontrolled with hyperglycemia We discussed that it is critically important that patients with DM1 have insulin at all times to prevent DKA which was especially a danger given her glucose >300. I recommended a one time shot of lantus in clinic, and restarting her pump the next day. She strongly wished to avoid this so she could restart her pump when she got home. I therefore recommended a shot of humalog before leaving the clinic. Based on her reported ISF, 8 units should be sufficient to lower the glucose <200. She was made aware that she would need to resume the pump before the 4 hour action time of humalog wears off. She did have a ride home in case her glycemic control was to worsen during that timeframe. Unfortunately, I did not have the pump data in front of me to suggest significant changes but it appeared clear to me based on the samia that her CR with dinner is insufficient. I suggested intensifying this from 1:12 to 1:10 and she was agreeable to this. I also suggested that she consider upgrading her pump because it is >4 years old.She strongly prefers staying with [employer] so I recommended contacting the rep to discuss this and also reviewing how to use the extended bolus feature on the pump to better account for her gastroparesis Labs: she will get routine labs drawn soon at [facility] 2) hypothyroid: check TSH soon at [facility] to see if levothyroxine dose is adequate Please do not hesitate to contact me with questions Time statement: I spent 30 total minutes on this visit today. The time was spent face to face with the patient, on chart review and documentation, ordering labs/studies and coordination of care Return to clinic 3-4 months to see Lianet Price NP. She is does not have availability then (bryanna had staff departures recently making every 3 month visits difficult to schedule), it may be necessary for her to see her PCP at that time for medicare pump check in visit, and either or Lianet in 6 months Ariel Hernandez MD [employer] Tube Cutterweight loss counselor Endocrinology Section [facility] * Airel Hernandez MD - 07/08/2021 1:45 PM EDT Continuous Glucose Monitoring (CGM) Interpretation I reviewed 72 hours + of 265 [employer] Samia CGM data. There is a trend for postdinner hyperglycemia that is recurrent Last 14 days averages: MN-6a 174 [id number] Noon-6 188 6p-MN 223 * Courtney Houston RN - 07/08/2021 1:45 PM EDT Nurse gave pt 8 units Humalog to left arm. Out of clinic stock documented in this encounter Plan of Treatment Upcoming Encounters Date Type Department Care Team (Late st Contact Info) Description 05/17/2024 2:30 PM EST Office [place] [address] Alcides Bonilla MD [facility] [place] [address] 04/06/2049 9:00 AM EST Hospital [place] [address] Harry Guerrero MD [facility] [place] [address] documented as of this encounter Results * (ABNORMAL) U Albumin/Cre Ratio (08/01/2021 10:37 AM EDT) Albumin / Creatinin Ratio, Urine 38(H) 0 - 29 mcg/mg Cr [facility] Comment: Reference Ranges: <30 mcg/mg: [...] Supplements (2012) 2, 357? 362 Albumin, Urine 15.8 mg/L [facility] Creatinine, Urine 42 mg/dL [facility] Urine 08/01/2021 10:3 7 AM EDT 08/01/2021 10:55 AM EDT Narrative Resulting Agency Comment Spec In Lab Ariel Hernandez MD URINE ORDERABLES [facility] [place] [address] * Lipid Panel (Reflex Direct LDL) (08/01/2021 10:35 AM EDT) Cholesterol, Total 220 mg/dL [facility] Comment: Lower Risk: <200 mg/dL Average Risk: 200-239 mg/dL Higher Risk: >lr=839 mg/dL Triglyceride 112 mg/dL [facility] Comment: Average Risk/Lower Risk: <150 mg/dL Borderline High Risk: 150-199 mg/dL High Risk: 200-499 mg/dL Very High Risk: >eh=697 mg/dL HDL Cholesterol 86 mg/dL [facility] Comment: Males: ?? Higher Risk: <40 mg/dL Females: ?? Higher Risk: <50 mg/dL LDL Cholesterol 112 mg/dL [facility] Comment: Lowest Risk: <100 mg/dL Lower Risk: 100-129 mg/dL Borderline High Risk: 130-159 mg/dL High Risk: 160-189 mg/dL Very High Risk: >ic=580 mg/dL Cholesterol/HDL Ratio 2.6 ratio [facility] Lipid Interpretation See Note [facility] Comment: Lipid management should be guided by a patient? s ASCVD risk, goals and preferences. ACC/AHA Guidelines recommend high intensity statin if clinical ASCVD or LDL greater than or equal to 190 mg/dL. http://[email or web address].com.com/EAK-FRV-Fyyexivqt Adults aged 40-75 with LDL 70-189 mg/dL should have their 10 year ASCVD risk estimated with the ACC/AHA ASCVD risk jewelry estimator http://tools.acc.org/KFOPA-Ibha-Lxansaedk/ Statin should be discussed if risk greater than or equal to 7.5% in non-diabetics. With diabetes, moderate intensity statin is recommended if risk less than 7.5%, high intensity if risk greater than or equal to 7.5%. Annual lipid monitoring on statins is not necessary. Evaluate secondary causes of Triglycerides greater than 500 mg/dL or LDL greater than 190 mg/dL: See table 6 of ACC/AHA Guideline. Lifestyle modification is a critical component of ASCVD risk reduction. Blood 08/01/2021 10:3 5 AM EDT 08/01/2021 10:53 AM EDT Narrative Resulting Agency Comment Spec In Lab Ariel Hernandez MD CHEMISTRY ORDERABLE S [facility] [place] [address] * Creatinine (08/01/2021 10:35 AM EDT) Creatinine 0.73 0.70 - 1.20 mg/dL [facility] Est Glomerular Filtration Rate 86 >=60 mL/min/1. 73 m?? [facility] Comment: This patient? s estimated glomerular filtration rate (eGFR) is between 86 mL/min/1.73 m2 (patients with less muscle mass) and 100 mL/min/1.73 m2 (patients with more muscle mass) [...] and symptoms in addition to eGFR. Blood 08/01/2021 10:3 5 AM EDT 08/01/2021 10:53 AM EDT Narrative Resulting Agency Comment Spec In Lab Ariel Hernandez MD CHEMISTRY ORDERABLE S Performing Organization Address [facility] Co de Phone Number [facility] [place] [address] * Potassium (08/01/2021 10:35 AM EDT) Potassium 4.2 3.5 - 5.0 mmol/L [facility] Comment: Please note: ??Patients with WBC >100,000 may have falsely elevated Potassium levels. ??For accurate Potassium quantification in these patients send serum separator tube (gold top) for subsequent determinations. ??Contact the Clinical Chemistry Laboratory if there are any questions. Blood 08/01/2021 10:3 5 AM EDT 08/01/2021 10:53 AM EDT Narrative Resulting Agency Comment Spec In Lab Ariel Hernandez MD CHEMISTRY ORDERABLE S Performing Organization Address [facility] Co de Phone Number [facility] [place] [address] * (ABNORMAL) Hemoglobin A1c (08/01/2021 10:35 AM EDT) Hemoglobin A1c 7.6(H) 4.3 - 5.6 % [facility] Comment: Reference Range: 4.3 - [...] Mellitus, Diabetes Care 2013; 36: Suppl. 1, V35-53 Estimated Average Glucose 171 mg/dL [facility] Comment: eAG equivalents for HbA1c [...] into estimated average glucose values. ??Diabetes Care 2008:31(8):3367-1399. Blood 08/01/2021 10:3 5 AM EDT 08/01/2021 10:53 AM EDT Narrative Resulting Agency Comment Spec In Lab Ariel Hernandez MD CHEMISTRY ORDERABLE S [facility] [place] [address] documented in this encounter Visit Diagnoses Diagnosis 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 documented in this encounter Administered Medications Inactive Administered Medications - up to 3 most recent administrations Medication Order MAR Action Action Date Dose Rate Site insulin lispro (HumaLOG;Admelog) (100 unit/mL) subcutaneous injection vial 8 Units 8 Units, Subcutaneous, ONCE, 1 dose, On Thu07/08/21 at 1415, Routine Given 07/08/2021 2:06 PM EDT 8 Units Left Arm documented in this encounter Care Teams Operations Planner Relationship Specialty Start Date End Date Nayla Miramontes MD [facility] [address] [place] [address] PCP - General Family Medicine 05/11/21 documented as of this encounter
--- OUTSIDE RECORDS SUMMARY | 2024-03-07 18:56 | XMS_ITS | Encounter Summary ---
Author Organization [facility] Address [facility] [place] [address] Care Team Providers Care Fleet Salesperson Name Role Phone Nayla Miramontes MD Primary Care Provider [phone] Reason for Visit * Diagnostic Test (Routine) - Closed Specialty Diagnoses / Procedures Referred By Franklin laird Referred To Contact Gastroenterology Diagnoses Incontinence of feces, unspecified fecal incontinence type BUMP 11/21 ARM for fecal incontinence Procedures High Definition Anal Manometry ARM for fecal incontinence Alcides Bonilla MD [facility] [place] [address] [facility] [place] [address] [place] [address] Referral ID Status Reason Start Date Expiration Date V isits Requested Visits Authorized [id number] Closed Consult, Test & Treat 08/01/2021 08/01/2022 1 1 Encounter Details Date Type Department Care Team (Latest Contact Info) Description 08/04/2022 3:00 PM EDT Procedure [place] [address] Incontinence of feces, unspecified fecal incontinence type [...] as of this encounter Progress Notes * Pamela Saleh RN - 08/04/2022 3:00 PM EDT A description of the anal manometry procedure was provided to the patient. All questions were answered and the patient verbalized understanding. After performing a digital rectal exam, the HRAM probe was placed in the rectum without difficulty and the procedure was performed. After removal of the probe, an anorectal balloon expulsion catheterwas placed in the rectum for continuation of the study. Patient is unable to expel balloon in 2 minutes while in sitting position. Balloon is removed, study ends. The patient tolerated the procedure well. * Alcides Bonilla MD - 08/04/2022 3:00 PM EDT Re: Roxann Baxter Reg No:[id number] : 1955 Date of Service: 08/04/2022 ANORECTAL MANOMETRY w/BALLOON EXPULSION Referring provider:Alcides Bonilla Dear: Dr. Bonilla We had the pleasure of performing a high resolution anorectal manometry on your patient in the GI Motility Laboratory at [facility]. CLINICAL HISTORY AND INDICATION As you know, she is a 66 y.o. female with complaints of fecal incontinence RESULTS Resting sphincter pressure (NL Value: Males 70-100, Females 70-90) : 19 mmHg Max squeeze pressure (NL Value: Males 240-300, Females 160-200) : 144 mmHg Squeeze duration: poor (sustaining at least 50% of the difference between maximum squeeze and resting pressures for fewer than 5 seconds). Rectoanal inhibitory reflex: present at 60 ccs balloon distention Response to coughing: normal (cough elicits a pressure greater than or equal to double the resting pressure). Dyssynergia evident on push maneuvers. 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 Resting anal sphincter pressure reflecting internal sphincter function was weak. Maximum squeeze pressures reflecting external sphincter function were weak. Rectal sensation was normal. Alcides Bonilla MD, FRCPC Section of Gastroenterology and Hepatology [facility] [place] [address] V: [phone] F: [phone] CC/EC: MD [address] [place] [address] documented in this encounter Plan of Treatment Upcoming Encounters Date Type Department Care Team (Late st Contact Info) Description 05/17/2024 2:30 PM EST Office Visit [place] [address] Alcides Bonilla MD [facility] [place] [address] 04/06/2049 9:00 AM EST Hospital Encounter [place] [address] Harry Guerrero MD [facility] [place] [address] documented as of this encounter Visit Diagnoses Diagnosis Incontinence of feces, unspecified fecal incontinence type documented in this encounter Care Teams Fleet Salesperson Relationship Specialty Start Date End Date Nayla Miramontes MD [address] [place] [address] PCP - General Family Medicine 05/11/21 documented as of this encounter
--- OUTSIDE RECORDS SUMMARY | 2024-03-07 18:56 | XMS_ITS | Encounter Summary ---
Author Organization [facility] [place] [address] Care Team Providers Care Pharmacy Innovation Assistant Name Role Phone Nayla Miramontes MD Primary Care Provider [phone] Encounter Details Date Type Department Care Team (Late Contact Info) Description 05/02/2019 Telephone Endocrinology at [facility] [place] [place] [address] Tyler Self RN Social History Tobacco Use Types Packs/Day [...] encounter Miscellaneous Notes * Telephone Encounter - Tyler Self RN - 05/02/2019 3:32 PM EST Received voicemail from [employer] wanting to confirm that we are the correct office to send [employer] fax requests to. Presumably they want to send us a request. Return phone: [phone]. [phone] Acct#: [id number] documented in this encounter Plan of Treatment Upcoming Encounters Date Type Department Care Team (Late Contact Info) Description 05/17/2024 2:30 PM EST Office Visit [place] [address] Alcides Bonilla MD [facility] [place] [address] 04/06/2049 9:00 AM EST Hospital Encounter [place] [address] Harry Guerrero MD [facility] DR [place]STROENTER[place] [address] documented as of this encounter Visit Diagnoses Not on filedocumented in this encounter Care Teams Pharmacy Innovation Assistant Relationship Specialty Start Date End Date Nayla Miramontes MD [address] [facility] [address] [place] [address] PCP - General 05/21/11 05/10/21 documented as of this encounter
--- OUTSIDE RECORDS SUMMARY | 2024-03-07 18:56 | XMS_ITS | Encounter Summary ---
[place] [address] Care Team Providers Care House Mother Name Role Phone Nayla Miramontes MD Primary Care Provider [phone] Reason for Visit * Reason Onset Date Comments Bumped Appointment 09/05/2019 Encounter Details Date Type Department Care Team (Late Contact Info) Description 09/05/2019 Telephone [place] [phone] Marry Cedeño Bumped Appointment Social History Tobacco Use Types [...] encounter Miscellaneous Notes * Telephone Encounter - Marry Crow - 09/05/2019 1:47 PM EDT Left message to reschedule bumped appointment. documented in this encounter Plan of Treatment Upcoming Encounters Date Type Department Care Team (Late st Contact Info) Description 05/17/2024 2:30 PM EST Office [place] [phone] Alcides Bonilla MD [facility] [place] [address] 04/06/2049 9:00 AM EST Hospital Encounter [place] [address] Harry Guerrero MD [facility] [place] [address] documented as of this encounter Visit Diagnoses Not on filedocumented in this encounter Care Teams House Mother Relationship Specialty Start Date End Date Nayla Miramontes MD [facility] ANABELLA LÓPEZ [facility] [address] [place] [address] PCP - General 05/21/11 05/10/21 documented as of this encounter
--- OUTSIDE RECORDS SUMMARY | 2024-03-07 18:56 | XMS_ITS | Encounter Summary ---
Author Organization [facility] [place] [address] Care Team Providers Care Replanting Machine Crew Name Role Phone Nayla Miramontes MD Primary Care Provider [phone] Reason for Visit * Reason Comments Follow-up Encounter Details Date Type Department Care Team (Late st Contact Info) Description 11/29/2018 10:30 AM EDT Office [place] [address] Roseanne Kay APRN [facility] [address] 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, unspecified retinopathy severity Social History Tobacco Use Types Packs/Day Years [...] Sign Reading Time Taken Comments Blood Pressure 122/57 11/29/2018 11:19 AM EDT Pulse 73 11/29/2018 11:19 AM EDT Temperature - - Respiratory Rate 18 11/29/2018 11:19 AM EDT Oxygen Saturation 95% 11/29/2018 11:19 AM EDT Inhaled Oxygen Concentration - - Weight 78 kg (172 lb) 11/29/2018 11:19 AM EDT Height 167.6 cm (5' 6) 11/29/2018 11:19 AM EDT Body Mass Index 27.76 11/29/2018 11:19 AM EDT documented in this encounter Patient Instructions * Patient Instructions* Roseanne Kay APRN - 11/29/2018 10:30 AM EDT Baqsimi Is nasal glucagon Dr Deleon , payment collector in [facility] Schedule dilated eye exam documented in this encounter Progress Notes * Roseanne Kay APRN - 11/29/2018 10:30 AM EDT Office visit note from Roxann Baxter. Date of visit 11/29/2018 Reason for visit: Follow-up type I DM with complication of retinopathy. Also, depression, hypothyroidism, hypertension, hyperlipidemia. Brief history: States she is having trouble with managing her depression. Takes medication and has counseling. Diabetes regimen: Medtronic 630G pump. Basal rates: 12 AM 0.675, 4 AM 0.675, 9:30=.7, 15:30=.825, 19:00=.75 total basal 17.25 bolus doses: Sensitivity factor 30, insulin to carb 12 changes sets every 3 days. States glucose levels have been high recently and was disappointed that hemoglobin A1c was 9% recently at PCP office Date of diagnosis of diabetes: At age 40 SBGM: 4 times a day. Reason for higher frequency testing is that patient has hypoglycemia unawareness Past Medical History: Diagnosis Date ??? Anxiety ??? Arthritis ??? Asthma ??? Cortical cataract 05/05/2011 ??? Diabetes mellitus ??? GERD (gastroesophageal reflux disease) ??? Hyperlipidemia ??? Hypertension ??? PDR (proliferative diabetic retinopathy) 05/25/2011 ??? Skin disease ??? Thyroid disease Review of systems: Takes medication for her emotional health. Has counseling. States her 44-year-old son will be moving back in with them for a short while. Discusses some higher stress with her 19-year-old granddaughter and 3-year-old great grandson who live with them. Is followed by affiliate marketing coordinator for GI symptoms. States she needs to wear depends. Has joint pains. All 12 systems reviewed and negative except as noted Physical exam: Appearance: She appears in good health. Blood pressure 122/57. Weight 172 pounds. She has lost 15 pounds since previous visit with this provider. Eyes: Scars noted with greenlight exam. Neck: No thyromegaly or lymphadenopathy. Heart: Regular rate and rhythm. Lungs are clear to auscult ation. Feet: Skin is normal, pulses are normal. Neuro: Normal sensation to 10 G's of pressure No labs were done today since hemoglobin A1c was done recently at PCP office Impression and plan: DM type I in suboptimal control with hypoglycemia unawareness and retinopathy.Gave her Medicare durable medical equipment numbers to call for refills of [employer] marquise CGMS sensor kits. Using CGMS will help her manage glucose levels without increasing frequency of hypoglycemia. Hypothyroidism: Will check TSH at next visit. She states she would like to be able to alternate appointments with endocrinology and with Dr. Miramontes. She knows that Medicare requires office visits every 90 days related to using an insulin pump. Will schedule an appointment in 90 days at endocrinology but if she follows up with PCP and PCP manages the pump for the next visit, that may be acceptable. [facility]. This was a 34-minute office visit with 24 minutes spent counseling [id number] with patientin the management of glucose levels, reviewing prevention and treatment of hypoglycemia and discussing the importance of taking care of her emotional health. documented in this encounter Plan of Treatment Upcoming Encounters Date Type Department Care Team (Late st Contact Info) Description 05/17/2024 2:30 PM EST Office [place] [address] Alcides Bonilla MD [facility] [place] [address] 04/06/2049 9:00 AM EST Hospital Encounter [place] [address] Harry Guerrero MD [facility] 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
--- OUTSIDE RECORDS SUMMARY | 2024-03-07 18:56 | XMS_ITS | Encounter Summary ---
Author Organization [facility] [place] [address] Care Team Providers Care Temporary Office Assistant Name Role Phone Nayla Miramontes MD Primary Care Provider [phone] Encounter Details Date Type Department Care Team (Late st Contact Info) Description 08/12/2021 Telephone [place] [phone] Celia Bellamy Social History Tobacco Use Types Packs/Day Years [...] encounter Miscellaneous Notes * Telephone Encounter - Celia Bellamy - 08/20/2021 9:27 AM EDT GES scheduled for 09/11/21 * Telephone Encounter - Celia Bellamy - 08/12/2021 11:12 AM EDT Left message for patient to contact the office for scheduling. Dr Bonilla would like the patient scheduled for a GES and stool studies per his EOD list 08/01/21. Orders in for an EGD/Baylis ARM/HREM scheduled for 11/21/21 HBT scheduled for 08/28/21 documented in this encounter Plan of Treatment Upcoming Encounters Date Type Department Care Team (Late st Contact Info) Description 05/17/2024 2:30 PM EST Office Visit [place] [phone] Alcides Bonilla MD [facility] [place] [address] 04/06/2049 9:00 AM EST Hospital Encounter [place] [phone] Harry Guerrero MD [facility] DR [place] [address] documented as of this encounter Visit Diagnoses Not on filedocumented in this encounter Care Teams Temporary Office Assistant Relationship Specialty Start Date End Date Nayla Miramontes MD [facility] ANABELLA PEARSON [address] [place] [address] PCP - General Family Medicine 05/11/21 documented as of this encounter
--- OUTSIDE RECORDS SUMMARY | 2024-03-07 18:56 | XMS_ITS | Encounter Summary ---
[place] [address] Care Team Providers Care Market Research Assistant Name Role Phone Nayla Miramontes MD Primary Care Provider [phone] Reason for Visit * Reason Onset Date Comments Pump/sensor 06/24/2018 Encounter Details Date Type Department Care Team (Late st Contact Info) Description 06/24/2018 Telephone [place] [phone] Rachna Espinosa Pump/sensor Social History Tobacco Use [...] * Telephone Encounter - Rachna Espinosa - 07/30/2018 9:07 AM EDT Confirmed 07/12 * Telephone Encounter - Rachna Espinosa - 06/24/2018 3:21 PM EDT CGM with physician's order received from [facility]. Filled out. Office note printed Dr. Pimentel will sign in Roseanne Kay's absence. I will fax. documented in this encounter Plan of Treatment Upcoming Encounters Date Type Department Care Team (Late st Contact Info) Description 05/17/2024 2:30 PM EST Office [place] [phone] Alcides Bonilla MD [facility] [place] [address] 04/06/2049 9:00 AM EST Hospital En[place] [address] Harry Guerrero MD [facility] [place] [address] documented as of this encounter Visit Diagnoses Not on filedocumented in this encounter Care Teams Market Research Assistant Relationship Specialty Start Date End Date Nayla Miramontes MD [facility] [address] [place] [address] PCP - General 05/21/11 05/10/21 documented as of this encounter
--- OUTSIDE RECORDS SUMMARY | 2024-03-07 18:56 | XMS_ITS | Encounter Summary ---
Author Organization [facility] [place] [address] Care Team Providers Care Jet Inspector Name Role Phone Nayla Miramontes MD Primary Care Provider [phone] Encounter Details Date Type Department Care Team (Late st Contact Info) Description 05/24/2019 Telephone [place] [phone] Brionna Ballard RN Social History Tobacco Use Types Packs/Day [...] encounter Miscellaneous Notes * Telephone Encounter - Miller Agustin RN - 05/26/2019 2:[address] Castanon I would definitely recommend she push the fiber. Metamucil (psyllium). The no sugar added version without artifical sweeteners (such as Metamucil Free). Start at 1 teaspoon daily for 1 week, then 2 teaspoons daily for one week, then maintain one Tablespoon (3 teaspoons) daily afterward. Can slowly increase to 2 tablespoons daily. Agree with imodium in the morning, starting with 1 to 2 tablets Happy to see her back Called patient and relayed above. Patient says she stopped fiber supplement completely and started imodium and it's working. Confirmed that the fiber tablets she's taking are store brand psyllium capsules with no sugar or artificial sweeteners. Recommended she restart fiber capsules at a low dose and titrate upwards again with the goal of notneeding imodium. She Can call us with an update if diarrhea returns. Will have secretaries call herto schedule f/u with Dr. Castanon. The patient indicates understanding of these issues and agrees with the plan. * Telephone Encounter - Brionna Ballard RN - 05/24/2019 2:56 PM EST TC from pt requesting call back. TC to pt. Spoke with pt. Pt reports that she has stool incontinence; however, the last few weeks she has noted that her stool incontinence does not involve urgency sensation; I can't even tell it's happening until it's happening. Pt is concerned because amount of stool is more copious. Stool ranges from liquid to formed. Pt continues to take 10 x fiber tablets a day. Pt DENIES: bloody stool. Pt reports no other symptoms. Reviewed pt's chart and related exert from pt's last office visit with Dr. Castanon on 06/23/2019: (4) If symptoms persist after a few weeks, try adding 1 or 2 imodium the first bowel movement of the day; Pt states that she has not tried Immodium yet and so she will have her pick some up and shewill try it. She will update us to let us know if this helps her symptoms. Pt would like to have an appointment with Dr. Castanon to discuss further. (this encounter forwarded to secretaries (high priority) to contact pt and schedule for Dr. Castanon's next available. This encounter also forwarded to Dr. Castanon to review and advise). documented in this encounter Plan of Treatment Upcoming Encounters Date Type Department Care Team (Late st Contact Info) Description 05/17/2024 2:30 PM EST Office [place] [address] Alcides Bonilla MD [facility] [place] [address] 04/06/2049 9:00 AM EST Hospital Encounter [place] [address] Harry Guerrero MD [facility] [place] [address] documented as of this encounter Visit Diagnoses Not on filedocumented in this encounter Care Teams Jet Inspector Relationship Specialty Start Date End Date Nayla Miramontes MD [facility]Z [facility] [address] [place] [address] PCP - General 05/21/11 05/10/21 documented as of this encounter
--- OUTSIDE RECORDS SUMMARY | 2024-03-07 18:56 | XMS_ITS | Encounter Summary ---
Author Organization [facility] Address [facility] [place] [address] Care Team Providers Care French Folding Machine Operator Name Role Phone Nayla Miramontes MD Primary Care Provider Encounter Details Date Type Department Care Team (Late Contact Info) Description 08/13/2020 9:45 AM EDT Laboratory Appointment Lab [address] [place] [phone] Social History Tobacco Use Types Packs/Day Years [...] 2:30 PM EST Office [place] [phone] Alcides Bonilla MD [facility] [place] [address] 04/06/2049 9:00 AM EST Hospital [place] [phone] Harry Guerrero MD [facility] [place] [address] documented as of this encounter Procedures Procedure Name Priority Date/Time Associated Diagnosis Comments TSH CASCADE Routine 08/13/2020 9:38 AM EDT documented in this encounter Results * TSH [place] (08/13/2020 9:38 AM EDT) Thyroid Stimulating Hormone 2.30 0.27 - 4.20 mcIU/mL [facility] Blood specimen (specimen) Venous Draw / Unknown 08/13/2020 9:38 AM EDT 08/13/2020 9:46 AM EDT Narrative Resulting Agency Comment Spec In Lab Nayla Miramontes MD CHEMISTRY ORDERABLES [facility] [place] [address] documented in this encounter Visit Diagnoses Not on filedocumented in this encounter Care Teams French Folding Machine Operator Relationship Specialty Start Date End Date Nayla Miramontes MD [facility] ANABELLA PEARSON [address] [place] [address] PCP - General 05/21/11 05/10/21 documented as of this encounter
--- OUTSIDE RECORDS SUMMARY | 2024-03-07 18:56 | XMS_ITS | Encounter Summary ---
Author Organization [facility] [place] [address] Care Team Providers Care Dressmaker Or Tailor Name Role Phone Nayla Miramontes MD Primary Care Provider [phone] Encounter Details Date Type Department Care Team (Latest Contact Info) Description 08/26/2022 2:15 PM EDT Office [place] [address] Ariel Hernandez MD [facility] [place] [address] Hypothyroidism, unspecified type; Type 1 diabetes mellitus [...] Sign Reading Time Taken Comments Blood Pressure 141/65 08/26/2022 2:34 PM EDT Pulse 76 08/26/2022 2:05 PM EDT Temperature 36.4 ??C (97.5 ??F) 08/26/2022 2:05 PM ED T Respiratory Rate - - Oxygen Saturation 99% 08/26/2022 2:05 PM EDT Inhaled Oxygen Concentration - - Weight 90.9 kg (200 lb 6.4 oz) 08/26/2022 2:05 P M EDT Height 167.6 cm (5' 6) 08/26/2022 2:05 PM EDT Body Mass Index 32.35 08/26/2022 2:05 PM EDT documented in this encounter Patient Instructions * Patient Instructions* Ariel Hernandez MD - 08/26/2022 2:15 PM EDT Pump changes Midnight-4am: 0.6 units/hr 4am- 930am: 0.6 units/hr 930am-15:30 : 1.0 unit/hr 15:30-19:00: 1.2 units/hr 19:00-midnight: 1.2 units/hr We placed the dexcom today, please download the kimi and clarity kimi documented in this encounter Progress Notes * Ariel Hernandez MD - 08/26/2022 2:15 PM EDT Ms. Roxann Baxter is an 66 y.o. female who presents for ongoing care of Diabetes type [address] Pimentel, has also seen Molly Funez NP in past. Saw me last in July 2021 Plan at last visit: 1) Diabetes Mellitus Type 1, uncontrolled with hyperglycemia ?? We discussed that it is critically important [...] control was to worsen during that timeframe. ?? Unfortunately, I did not have the pump data in front of me to suggest significant changes but it appeared clear to me based on the samia that her CR with dinner is insufficient. I suggested intensifying this from 1:12 to 1:10 and she was agreeable to this. ?? I also suggested that she consider upgrading her pump because it is >4 years old.She strongly prefers staying with medtronic so I recommended contacting the rep to discuss this and also reviewing how to use the extended bolus feature on the pump to better account for her gastroparesis ?? Labs: she will get routine labs drawn soon at [facility] ? 2) hypothyroid: check TSH soon at [facility] to see if levothyroxine dose is adequate ?? Interval history: Diagnosed with DM1 age 40 Notable medical comorbidities: hypothyroid, gastroparesis, proliferative retinopathy, HTN, psoriatic arthritis, BMI >30 Today she tells me that she was not able to upgrade to a new pump. She is interested in exploring this option, and also getting new sensor because of adhesive problems with Samia 2.0. She notices hyperglycemia that typically is a bigger issue as the day goes on, not so much with fasting. She did intensify her CR but this did not substantially improve her sugars She has been dealing with chronic depression as well that has been difficult to control. She is notsuicidal, and has no plans for self harm. She does not miss insulin boluses with meals. She generally has three meals daily Breakfast: toast, 2 eggs, all bran cereal. [place] milk Lunch: tuna Dinner: chicken breast and salad She is concerned about weight gain and difficulty losing weight despite efforts of increased physical activity and diet optimization Current DM meds Regimen: Medtronic 630G pump. ?? Basal rates: ?? 12 AM 0.575 ?? 4 AM 0.575 ?? 9:30a 0.800 ?? 3:30p 0.9 19:00 0.9 Bolus doses: Sensitivity factor 30, insulin to carb 1: 10 Eye doctor: has known retinopathy. Being seen in September for followup Feet: No problems other than nail fungus. She plans to see podiatry consult to address this. Takes gabapentin for peripheral neuropathy CV risk reduction: takes atorvastatin, irbesartan Current Outpatient Medications: ??? levothyroxine (Synthroid) 150 mcg Tablet, Take 1 tablet by mouth daily., Disp: 90 tablet, Rfl: 3 ??? desvenlafaxine succinate (PRISTIQ ORAL), Take 75 mg by mouth daily., Disp: , Rfl: ??? trimethobenzamide (TIGAN) 300 mg Capsule, Take by mouth 4 times daily as needed., Disp: , Rfl: ??? Symbicort 160-4.5 mcg/actuation HFA Aerosol Inhaler, as needed., Disp: , Rfl: ??? gabapentin (Neurontin) 300 [...] 14 days. (Patient not taking: Reported on 08/01/2021), Disp: 3 kit, Rfl: 3 ??? insulin lispro (HUMALOG) Solution, Inject 65 Units subcutaneously continuous. Continuous Via insulin pump, Disp: 60 mL, Rfl: 3 ??? melatonin 5 mg Tablet, Take 5 mg by mouth nightly., Disp: , Rfl: ??? magnesium citrate Solution, Take 295 mLs by mouth 2 times daily as needed. (Patient not taking:Reported on 07/08/2021), Disp: 590 mL, Rfl: 5 ??? sodium phosphates (FLEET) Enema, Place 1 Bottle rectally once as needed for Constipation for upto 1 dose. (Patient not taking: Reported on 08/13/2020), Disp: 135 mL, Rfl: 3 ??? Diabetic Supplies, [facility] for Infusion sets faxed to [facility], Disp: 100 each, Rfl: 12 ??? insulin [...] tablet, Rfl: 0 ??? Diabetic Supplies, [facility], Inject 1 each subcutaneously 4 times daily. [facility] [phone]. Dx Code: 250.01, Disp: 100 each, Rfl: 12 ??? Diabetic Supplies, [facility]. [facility] faxed to [facility], Disp: 100 each, Rfl: 12 ??? bisacodyl (DULCOLAX) 10 mg Suppository, Place 1 suppository rectally daily. (Patient not taking: Reported on 08/13/2020), Disp: 60 suppository, Rfl: 3 ??? ondansetron (ZOFRAN-ODT) 8 mg Tablet, Rapid Dissolve, Take 1 tablet by mouth every 8 hours as needed for Nausea., Disp: 20 tablet, Rfl: 11 ??? lisinopril [...] ??? Presence of insulin pump [facility] ??? Pseudophakia of both eyes (OD - [...] Note: Dx replacement utility run on deactivated [employer] Dx [id number] Physical Exam: BP 141/65 Pulse 76 Temp 36.4 ??C (97.5 ??F) (Temporal) Ht 167.6 cm (5' 6) Wt 90.9 kg (200 lb 6.4 oz) LMP (LMP Unknown) SpO2 99% BMI 32.35 kg/m?? BP improved with recheck General: no acute distress, pleasant, sitting comfortably Face: wearing mask Neck: no supraclavicular fat pads; trachea midline Respiratory: symmetrical chest expansion, breathing comfortably on room air Cardiovascular: 2+ DP pulses Musculoskeletal: moving all 4 extremities normally; normal female musculature Skin: normal temperature/texture, no foot wounds Neurological: no tremors; normal sensation on feet to 10g monofilament Psychological: alert/oriented to person, place, time; normal affect; memory intact; normal judgement/insight Radiology Studies: Laboratory Data: Assessment / Plan: 1) Diabetes Mellitus Type 1, uncontrolled with hyperglycemia Her basal rates as discordant with her CR and ISF which are more intensive. I recommended basal rate increases to bring the total daily dose closer to 24 units total. Changes were: Pump changes Midnight-4am: 0.6 units/hr 4am- 930am: 0.6 units/hr 930am-15:30 : 1.0 unit/hr 15:30-19:00: 1.2 units/hr 19:00-midnight: 1.2 units/hr We placed the dexcom today, please download the kimi and clarity kimi. Provided dexcom G7 sample. Rod let us know if she would like Rx to be switched from samia to these Provided information for her to start looking into ominpod and t slim pump options BP improved significantly on recheck, continue to monitor Check routine labs today Orders Placed This Encounter Procedures ??? TSH ??? Hemoglobin A1c ??? Lipid Panel (Reflex Direct LDL) ??? Creatinine ??? U Albumin/Cre Ratio 2) hypothyroid: check TSH now to ensure levothyroxine dose is appropriate 3) BMI >30: we discussed possibly starting GLP1r agonist but this would carry risk of worsening her known gastroparesis. Also discussed metformin to improve insulin sensitivity and facilitate weight loss, but this would carry side effect possibly of GI upset. Defer possibly starting these medicines for right now, until her followup with GI later this year for reassessment of gastroparesis. Please do not hesitate to contact me with questions Time statement: I spent 50 total minutes on this visit today. The time was spent face to face with the patient, on chart review and documentation, ordering labs/studies and coordination of care Followup: 3-4 months with Fannie Hernandez MD Gallery Or Museum Attendantsynthetic resin operator Endocrinology Section [facility] documented in this encounter Plan of Treatment Upcoming Encounters Date Type Department Care Team (Late st Contact Info) Description 05/17/2024 2:30 PM EST Office [place] [address] Alcides Bonilla MD [facility] [place] [address] 04/06/2049 9:00 AM EST Hospital Encounter Gastroenterology at [facility] [place] [address] Harry Guerrero MD [facility] 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 362 Albumin, Urine 13.2 mg/L [facility] Creatinine, Urine 71 mg/dL [facility] Urine 08/26/2022 4:12 PM EDT 08/26/2022 5:01 PM EDT Narrative Resulting Agency Comment Spec In Lab Ariel Hernandez MD URINE ORDERABLES Performing Organization Address City/[facility] Co de Phone Number [facility] [place] [address] * Creatinine (08/26/2022 3:49 PM EDT) Creatinine 0.78 0.70 - 1.20 mg/dL [facility] Est Glomerular Filtration Rate 84 >=60 mL/min/1. 73 m?? [facility] Comment: This patient's estimated GFR [...] and symptoms in addition to eGFR. Blood 08/26/2022 3:49 PM EDT 08/26/2022 4:28 PM EDT Narrative Resulting Agency Comment Spec In Lab Ariel Hernandez MD CHEMISTRY ORDERABLE S Performing Organization Address City/[facility]/ZIP Co de Phone Number [facility] [place] [address] * Lipid Panel (Reflex Direct LDL) (08/26/2022 3:49 PM EDT) Cholesterol, Total 226 mg/dL [facility] Comment: Lower Risk: <200 mg/dL Average Risk: 200-239 mg/dL Higher Risk: >pk=713 mg/dL Triglyceride 90 mg/dL [facility] Comment: Average Risk/Lower Risk: <150 mg/dL Borderline High Risk: 150-199 mg/dL High Risk: 200-499 mg/dL Very High Risk: >re=031 mg/dL HDL Cholesterol 99 mg/dL [facility] Comment: Males: ?? Higher Risk: <40 mg/dL Females: ?? Higher Risk: <50 mg/dL LDL Cholesterol 109 mg/dL [facility] Comment: Lowest Risk: <100 mg/dL Lower Risk: 100-129 mg/dL Borderline High Risk: 130-159 mg/dL High Risk: 160-189 mg/dL Very High Risk: >cw=489 mg/dL Cholesterol/HDL Ratio 2.3 ratio [facility] Lipid Interpretation See Note [facility] Comment: Lipid management should be guided by a patient? s ASCVD risk, goals and preferences. ACC/AHA Guidelines recommend high intensity statin if clinical ASCVD or LDL greater than or equal to 190 mg/dL. [email or web address] Adults aged 40-75 with LDL 70-189 mg/dL should have their 10 year ASCVD risk estimated with the ACC/AHA ASCVD risk construction cost estimator http://tools.acc.org/RMLMQ-Kipq-Yvjqzssex/ Statin should be discussed if risk greater [...] critical component of ASCVD risk reduction. Blood 08/26/2022 3:49 PM EDT 08/26/2022 4:28 PM EDT Narrative Resulting Agency Comment Spec In Lab Ariel Hernandez MD CHEMISTRY ORDERABLE S [facility] [place] [address] * (ABNORMAL) Hemoglobin A1c (08/26/2022 3:49 PM EDT) Hemoglobin A1c 8.2(H) 4.3 - 5.6 % [facility] Comment: Reference Range: 4.3 - [...] Mellitus, Diabetes Care 2013; 36: Suppl. 1, S77-67 Estimated Average Glucose 190 mg/dL [facility] Comment: eAG equivalents for HbA1c [...] into estimated average glucose values. ??Diabetes Care 2008:31(8):9620-7230. Blood 08/26/2022 3:49 PM EDT 08/26/2022 4:28 PM EDT Narrative Resulting Agency Comment Spec In Lab Ariel Hernandez MD CHEMISTRY ORDERABLE S [facility] [place] [address] * TSH (08/26/2022 3:49 PM EDT) Thyroid Stimulating Hormone 2.17 0.27 - 4.20 mcIU/mL [facility] Comment: Reference Interval (mcIU/mL): Females: ??First Trimester: 0.23-3.88 ??Second Trimester: 0.22-3.90 ??Third Trimester: 0.44-4.66 Blood 08/26/2022 3:49 PM EDT 08/26/2022 4:28 PM EDT Narrative Resulting Agency Comment Spec In Lab Ariel Hernandez MD CHEMISTRY ORDERABLE S [facility] [place] [address] documented in this encounter Visit Diagnoses Diagnosis Hypothyroidism, unspecified type 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
--- OUTSIDE RECORDS SUMMARY | 2024-03-07 18:56 | XMS_ITS | Encounter Summary ---
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, unspecified retinopathy severity; Hypothyroidism, unspecified type Social History Tobacco Use Types [...] Sign Reading Time Taken Comments Blood Pressure 117/57 02/06/2020 9:53 AM EST Pulse 67 02/06/2020 9:53 AM EST Temperature 37.1 ??C (98.8 ??F) 02/06/2020 9:53 AM ES T Respiratory Rate - - Oxygen Saturation 98% 02/06/2020 9:53 AM EST Inhaled Oxygen Concentration - - Weight 77.8 kg (171 lb 9.6 oz) 02/06/2020 9:53 A M EST Height 167.6 cm (5' 6) 02/06/2020 9:53 AM EST Body Mass Index 27.7 02/06/2020 9:53 AM EST documented in this encounter Patient Instructions * Patient Instructions* Molly Funez APRN - 02/06/2020 10:00 AM EST Follow up to make your eye appointment Call to set up podiatry exam with Dr. Merida in [place] -Monitoring: to check BGs fasting in am, before each meal and at bedtime. Target FBG 90-140 pre-meal during daytime 90-150 1-2 h post meal below 180 Target A1c 7% for this patient. --Diet and exercise: low fat/controlled carb diet & exercise as tolerated to keep weight down. --Prevention: follow up with eye exam --F/U lab for: A1C in 3 months --RTC: Next visit in 3 months. (Quick draw lab before visit with us on the same day). documented in this encounter Progress Notes * Molly Funez APRN - 02/06/2020 10:00 AM EST Date of Visit: 02/06/2020 Reason for Visit: Follow-up diabetes Brief History: Roxann Baxter is a 64 y.o. female with PMH significant for T1DM with complication ofretinopathy, hypothyroidism, HTN, HLD, and depression. Diabetes managed with Medtronic 630G pump. She reports she has made some adjustments to pump settings due to continuity manager lows to 49, these do wake her. She does not use CGM, too expensive. She presents today for diabetes follow up management and to provide a review of residential diabetes care. She reports her fasting BGs 125 -130, she feels she is not always managing her diabetes well due to her depression. Under a lot of stress with election, currently changing psych meds, still cares for her grandaughter and great grand child in her home, remains in counseling. Diabetes History: Roxann Baxter diabetes diagnosed age 40. Most recent A1C: Recent Labs 02/06/20 0933 HA1C 8.7* Regimen: Medtronic 630G pump. Previous Basal rates: 12 AM 0.675, (decreased today to 0.575) 4 AM 0.675, (decreased today to 0.575) 9:30=0.700 15:30=0.825, (increased to 0.850) 19:00=0.750 ( increased to 0.775) total basal 16.51 bolus doses: Sensitivity factor 30, insulin to carb 1: 12 changes sets every 3 days. Glucose Monitoring: Glucose test strip brand:Contour Number tests prescribed per day:3 to 4 x a day when she is functioning well Justification for testing > 3x a day prevent severe hyperglycemia, widely fluctuating BS, overnight hypoglycemia Insulin administration site: abdomen, pump Compliance with insulin: good Hypoglycemia awareness: had a period of unawareness though the last few years has awareness Warning signs: wakes, I can just tell BG testing > than 5 if having hypoglycemia occurrances Episodes of hypoglycemia 3 - 4 times a week. Frequency of episodes needing assistance: 3 to 4 years ago Medical Alert bracelet: Duration of need: lifetime Pump/Sensor information: Model: MM 670, Frequency of set changes: Every 3 Days Sensor: no CGM Plan from previous visit note: 11/29/2018 Impression and plan: DM type I in suboptimal control with hypoglycemia unawareness and retinopathy.Gave her Medicare durable medical equipment numbers to call for refills of [employer] CGMS sensor kits. Using CGMS will help her manage glucose levels without increasing frequency of hypoglycemia. ?? Hypothyroidism: Will check TSH at next visit. ?? She states she would like to be [...] need to send office visit notes to Yvonne. This was a 34-minute office visit with 24 minutes spent counseling [id number] with patientin the management of glucose levels, reviewing prevention and treatment of hypoglycemia and discussing the importance of taking care of her emotional health. Current Medications: Medications 02/06/20 0955 Medication Sig Taking? gabapentin (Neurontin) 300 mg Capsule TK 2 CS PO TID Yes mirtazapine (Remeron) 15 mg Tablet TAKE 1 2 (ONE HALF) TABLET BY MOUTH EVERY DAY AT BEDTIME FOR 3 DAYS THEN INCREASE TO 1 FULL TABLET AT BEDTIME Yes busPIRone (BUSPAR) 5 mg Tablet Take 5 mg by mouth. 5 mg am/ 10 mg qhs Yes levothyroxine (SYNTHROID) 150 mcg Tablet Take 150 mcg by mouth daily. Yes insulin lispro (HUMALOG) Solution Inject 65 Units subcutaneously continuous. Continuous Via insulinpump Yes melatonin 5 mg Tablet Take 5 mg by mouth nightly. Yes magnesium citrate Solution Take 295 mLs by mouth 2 times daily as needed. Yes sodium phosphates (FLEET) Enema Place 1 Bottle rectally once as needed for Constipation for up to 1dose. Yes Diabetic Supplies, [facility]. [facility] [place] for Infusion sets faxed to [facility] Yes atorvastatin (LIPITOR) 40 mg Tablet Take 40 mg by mouth daily. Yes nefazodone (SERZONE) 100 mg Tablet Take 1 tablet by mouth 2 times daily. Patient taking differently: Take 250 mg by mouth 2 times daily. Yes Diabetic Supplies, [facility]. [facility] Inject 1 each subcutaneously 4 times daily. Faxed pump and supply order to [employer] at [phone]. Dx Code: 250.01 Yes Diabetic Supplies, Miscellan. [facility] [place] faxed to [facility] Yes bisacodyl (DULCOLAX) [address] 1 suppository rectally daily. Yes ondansetron (ZOFRAN-ODT) 8 mg Tablet, Rapid Dissolve Take 1 tablet by mouth every 8 hours as neededfor Nausea. Yes lisinopril (PRINIVIL;ZESTRIL) 20 mg Tablet Take 1 tablet by mouth daily. Yes MULTI-VITAMIN ORAL Take 1 tablet by mouth daily. Reported on 05/26/2016 Yes Adalimumab (HUMIRA PEN) 40 mg/0.8 mL Pen Injector Kit Inject 0.8 mLs subcutaneously every 14 days. Patient not taking: Reported on 05/31/2018 insulin glargine (LANTUS) Solution Inject 10 Units subcutaneously 2 times daily. Needed for insulinpump failure Indications: type 1 diabetes mellitus Patient not taking: Reported on 05/12/2018 celecoxib (CELEBREX) 100 mg Capsule Take 100 mg by mouth 2 times daily. Has met with RD? Carb counts Counts carbs 3 meals/day * Breakfast: none today, normally special K with almond milk, coffee * Lunch soup sometimes with bread, sometimes 1/2 a peanut butter sandwich * Dinner: This is the biggest meal, crock pot roast, carrots, potatoes mushrooms * Drinks: rare * snacks: trouble with this Exercises: not a lot, does some walking Diabetes Prevention: Last eye exam: Not up to date with Covid, has not been rescheduled Last urine protein measurement: Lab Results Component Value Date MICROALBUR 6.5 02/06/2020 Last Kidney function: Lab Results Component Value Date CREATININE 1.14 02/06/2020 Last lipid panel: Lipid Panel Lab Results Component Value Date CHLPL 161 05/16/2015 HDL 69 05/16/2015 CHOLHDL 2.3 05/16/2015 LDLDIRECT 81 02/06/2020 Regular camp director: would like a referral Special shoes: no Flu vaccine: up to date Pneumovax and Prevnar: Kidney protection On RYAN-I or ARB: yes Heart protection On low dose ASA: On Statin: yes Dental visits regular: not up to date Diabetes Complications Review: Eyes: + retinopathy, no history of laser therapy and/or injections Kidneys: No history of microalbuminuria, proteinuria, decreased kidney function, CKD, dialysis or kidney transplant Feet: Normal shape, no history of foot ulcers, positive for numbness/tingling, no previous decreased sensation to monofilament testing, no prior amputations, no prescription inserts or shoes Autonomic: No history of gastroparesis, problems emptying bladder, inability to detect hypoglycemia, or tachycardia Cardiac: No chest pain with exertion, no SOB with walking one flight of stairs or at rest, No history of CAD, cardiac stents, cardiac bypass surgery,CHF, PVD, CVA ROS: (+) for (-) for Constitutional: + intentional weight changes, no fevers, chills, fatigue, never has slept well Endocrine: No increased thirst or urination, heat/cold intolerance Eyes: No recent vision changes ENT: No dysphagia, dental issues Cardiovascular: No chest pain, palpitations Respiratory: No wheezing , shortness of breath GI: No nausea, vomiting, diarrhea, constipation : No frequent urinary tract infections, dysuria, hematuria Neurological: No weakness or numbness, dizziness Skin/Feet: No current diabetic foot ulcers/open area, no darkening of skin or skin changes Allergies Allergies Allergen Reactions ??? Codeine Phosphate Nausea Only ??? Propoxyphene N-Acetaminophen Nausea Only Social History: Social History Tobacco Use ??? Smoking status: Former Smoker Types: Cigarettes Quit date: 05/06/1984 Years since quittin.7 ??? Smokeless tobacco: Never Used Substance Use Topics ??? Alcohol use: No Comment: once a year ??? Drug use: No Family History: Family History Problem Relation Age of Onset ??? Depression Father ??? Mental Illness Father ??? Alcohol Use Disorder Father ??? Dementia Father ??? Depression Sister ??? Anxiety Disorder Sister ??? Mental Illness Sister ??? Alcohol Use Disorder Sister ??? Alcohol Use Disorder Brother ??? Diabetes Neg Hx ??? Glaucoma Neg Hx ??? Macular Degeneration Neg Hx ??? Retinal Detachment Neg Hx ??? Amblyopia Neg Hx ??? Strabismus Neg Hx ??? Colorectal Cancer Neg Hx Physical Exam: BP 117/57 Pulse 67 Temp 37.1 ??C (98.8 ??F) Ht 167.6 cm (5' 6) Wt 77.8 kg (171 lb 9.6 oz) LMP (LMP Unknown) SpO2 98% BMI 27.70 kg/m?? Appearance: pleasant, NAD, AAOx3, speaking in clear sentences HEENT: PERRLA Respiratory: breathing non-labored on RA Skin: No acanthosis nigricans, no rashes or bruising, no open areas or redness bilateral feet Lower extremities: No peripheral edema Feet: shape is normal, skin is dry, nails are painted though she states they have fungus, distal cap refill wnl pulses in feet : dorsalis pedis-weak posterior tibial-yes Neuro: appreciation of 10 g of pressure is present, gait is normal, moving all extremities. Grosslynon-focal Labs: Recent Results (from the past 24 hour(s)) U Albumin/Cre Ratio Result Value Ref Range Alb/Cr Ratio, Random 4 0 - 29 mcg/mg Cr U Albumin Conc, Random 6.5 mg/L U Creatinine 152 mg/dL Basic Metabolic Panel (non-fasting) Result Value Ref Range Glucose Lvl 61 (L) 65 - 199 mg/dL BUN 14 8 - 18 mg/dL Creatinine 1.14 0.70 - 1.20 mg/dL Sodium 142 135 - 145 mmol/L Potassium 4.1 3.5 - 5.0 mmol/L Chloride 104 98 - 107 mmol/L CO2 29 22 - 31 mmol/L Anion Gap 9 5 - 15 mmol/L Calcium 9.0 8.5 - 10.5 mg/dL eGFR 51 (L) >=60 mL/min/1.73 m?? eGFR 59 (L) >=60 mL/min/1.73 m?? Hemoglobin A1c Result Value Ref Range Hemoglobin A1C 8.7 (H) 4.3 - 5.6 % Est Avg Gluc 204 mg/dL TSH Result Value Ref Range TSH 0.91 0.27 - 4.20 mcIU/mL LDL Cholesterol, Direct Result Value Ref Range LDL Chol Direct 81 mg/dL Assessment: Patient is a 64 y.o. female with PMH significant for T1DM, A1C today 8.7%. Diabetes is currently suboptimally controlled. Other labs reviewed with patient today, TSH wnl. Patient has a good understanding of diabetes and potential complications of poor blood glucose control though fears her depression interferes with her ability to manage her blood sugars well. Review of her basal rates today indicates that she has actually not made any changes to her pump since her visit last year. Changes weremade today to her basal settings to prevent the morning low blood sugars that she reports. Decreased insulin 0.575 u/hr between MN and 0930, increased to 0.85 u/hr 3129-0119 and 0.775 1900 to [place], where she seems to consistently have elevated blood sugars. Review of her [employer] report indicates that she does not log her blood sugars frequently, checking on average 1.3X a day and is not bolusing on certain days to cover her meals. This is evident in the disparity noted in her daily basal dosing(65%) vs bolus dosing (35%). It is clear that she would benefit from the addition of CGM if this isfinancially possible. She agrees to follow up in 3 months to repeat A1C, sooner with any concerns. Plan: --Medications: --Monitoring: to check BGs fasting in am, before each meal and at bedtime. Log these BGs for reviewso that we can make changes to pump settings for better control. Target FBG 90-140 pre-meal during daytime 90-150 1-2 h post meal below 180 Target A1c 7% for this patient. --Patient will bring pump for download to next visit --Diet and exercise: low fat/controlled carb diet & exercise as tolerated to keep weight down. --Prevention: update eye exam and schedule with podiatry as discussed. --F/U lab for: A1C in 3 months --RTC: Next visit in 3 months. (Quick draw lab before visit with us on the same day). This was a 40 minute appointment. I have reviewed the plan outlined above with the patient and patient has verbalized understanding. All questions were answered with greater than 35 minutes of this 40 minute appointment spent in counseling on medications, proper use of insulin and changes to her pump settings, exercise recommendations, recognition and management of hypoglycemia, and the benefits of CGM. documented in this encounter Plan of Treatment Upcoming Encounters Date Type Department Care Team (Late st Contact Info) Description 05/17/2024 2:30 PM EST Office Visit [place] [address] Alcides Bonilla MD [facility] [place] [address] 04/06/2049 9:00 AM EST Hospital Encounter [place] [address] Harry Guerrero MD [facility] [place] [address] documented as of this encounter Results * U Albumin/Cre Ratio (02/06/2020 9:33 AM EST) Albumin / Creatinin Ratio, Urine 4 0 - 29 mcg/mg Cr [facility] Comment: Reference Ranges: <30 mcg/mg: [...] Supplements (2012) 2, 357? 362 Albumin, Urine 6.5 mg/L [facility] Creatinine, Urine 152 mg/dL [facility] Urine specimen (specimen) 02/06/2020 9:33 AM EST 02/06/2020 9:39 AM EST Narrative Resulting Agency Comment Spec In Lab Gloria Pimentel MD URINE ORDERABLES [facility] [place] [address] * (ABNORMAL) Basic Metabolic Panel (non-fasting) (02/06/2020 9:33 AM EST) Glucose 61(L) 65 - 199 mg/dL [facility] Comment:Diabetes: >=200 mg/d L plus symptoms Blood Urea Nitrogen 14 8 - 18 mg/dL [facility] Creatinine 1.14 0.70 - 1.20 mg/dL [facility] Sodium 142 135 - 145 mmol/L [facility] Potassium 4.1 3.5 - 5.0 mmol/L [facility] Comment: Please note: ??Patients with WBC >100,000 may have falsely elevated Potassium levels. ??For accurate Potassium quantification in these patients send serum separator tube (gold top) for subsequent determinations. ??Contact the Clinical Chemistry Laboratory if there are any questions. Chloride 104 98 - 107 mmol/L [facility] Carbon Dioxide 29 22 - 31 mmol/L [facility] Anion Gap 9 5 - 15 mmol/L [facility] Calcium 9.0 8.5 - 10.5 mg/dL [facility] Est Glomerular Filtration Rate 51(L) >=60 mL/min/1. 73 m?? [facility] Comment: The eGFR was calculated using the CKD-EPI equation. As with all creatinine based estimates of kidney function, eGFR values calculated with the CKD-EPI equation are not accurate in patients with acute kidney failure, extremes of body mass or the acutely ill. [email or web address] eGFR 59(L) >=60 mL/min/1. 73 m?? [facility] Comment: The eGFR was calculated using the CKD-EPI equation. As with all creatinine based estimates of kidney function, eGFR values calculated with the CKD-EPI equation are not accurate in patients with acute kidney failure, extremes of body mass or the acutely ill. [email or web address] Blood specimen (specimen) 02/06/2020 9:33 AM EST 02/06/2020 9:38 AM EST Narrative Resulting Agency Comment Spec In Lab Gloria Pimentel MD CHEMISTRY ORDERABLES [facility] [place] [address] * (ABNORMAL) Hemoglobin A1c (02/06/2020 9:33 AM EST) Hemoglobin A1c 8.7(H) 4.3 - 5.6 % [facility] Comment: Reference Range: 4.3 - [...] Mellitus, Diabetes Care 2013; 36: Suppl. 1, L67-72 Estimated Average Glucose 204 mg/dL [facility] Comment: eAG equivalents for HbA1c [...] into estimated average glucose values. ??Diabetes Care 2008:31(8):8727-2471. Blood specimen (specimen) 02/06/2020 9:33 AM EST 02/06/2020 9:38 AM EST Narrative Resulting Agency Comment Spec In Lab Gloria Pimentel MD CHEMISTRY ORDERABLES Performing Organization Address [facility] de Phone Number [facility] [place] [address] * TSH (02/06/2020 9:33 AM EST) Thyroid Stimulating Hormone 0.91 0.27 - 4.20 mcIU/mL [facility] Blood specimen (specimen) 02/06/2020 9:33 AM EST 02/06/2020 9:38 AM EST Narrative Resulting Agency Comment Spec In Lab Gloria Pimentel MD CHEMISTRY ORDERABLES Performing Organization Address [facility] de Phone Number [facility] [place] [address] * LDL Cholesterol, Direct (02/06/2020 9:33 AM EST) LDL Cholesterol, Direct 81 mg/dL [facility] Comment: Lowest Risk: <100 mg/dL Lower Risk: 100-129 mg/dL Borderline High Risk: 130-159 mg/dL High Risk: 160-189 mg/dL Very High Risk: >dt=214 mg/dL Blood specimen (specimen) 02/06/2020 9:33 AM EST 02/06/2020 9:38 AM EST Narrative Resulting Agency Comment Spec In Lab Gloria Pimentel MD CHEMISTRY ORDERABLES [facility] [place] [address] documented in this encounter Visit Diagnoses Diagnosis 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
--- OUTSIDE RECORDS SUMMARY | 2024-03-07 18:56 | XMS_ITS | Encounter Summary ---
[place] [address] Care Team Providers Care Jewel Staker Name Role Phone Nayla Miramontes MD Primary Care Provider Reason for Visit * Reason Onset Date Comments Pump/sensor 06/07/2018 Encounter Details Date Type Department Care Team (Late st Contact Info) Description 06/07/2018 [place] [phone] Rachna Espinosa Pump/sensor Social History Tobacco Use [...] * Telephone Encounter - Rachna Espinosa - 06/16/2018 12:56 PM EDT Confirmed / * Telephone Encounter - Rachna Espinosa - 06/07/2018 8:07 AM EST Medicare DWO order form for Anshul Gracia will send to [facility] Medical 2 office notes and insurance/demp page printed Roseanne Kay signed documented in this encounter Plan of Treatment Upcoming Encounters Date Type Department Care Team (Late st Contact Info) Description 05/17/2024 2:30 PM EST Office [place] [address] Alcides Bonilla MD [facility] [place] [address] 04/06/2049 9:00 AM EST Hospital [place] [phone] Harry Guerrero MD [facility] [place] [address] documented as of this encounter Visit Diagnoses Not on filedocumented in this encounter Care Teams Jewel Staker Relationship Specialty Start Date End Date Nayla Miramontes MD [facility] ANABELLA [address] [place] [address] PCP - General 05/21/11 05/10/21 documented as of this encounter
--- OUTSIDE RECORDS SUMMARY | 2024-03-07 18:56 | XMS_ITS | Encounter Summary ---
Author Organization [facility] [place] [address] Care Team Providers Care Director Of Medical Staff Services Name Role Phone Nayla Miramontes MD Primary Care Provider [phone] Encounter Details Date Type Department Care Team (Late st Contact Info) Description 06/22/2019 [place] [phone] Ary Huston OD [facility] [place] [address] Social History Tobacco Use Types Packs/Day Years [...] 2:30 PM EST Office [place] [phone] Alcides Bonilla MD [facility] [place] [address] 04/06/2049 9:00 AM EST Hospital Encounter [place] [address] Harry Guerrero MD [facility] [place] [address] documented as of this encounter Visit Diagnoses Not on filedocumented in this encounter Care Teams Director Of Medical Staff Services Relationship Specialty Start Date End Date Nayla Miramontes MD [facility] ANABELLA LÓPEZ [facility] [address] [place] [address] PCP - General 05/21/11 05/10/21 documented as of this encounter
--- OUTSIDE RECORDS SUMMARY | 2024-03-07 18:56 | XMS_ITS | Encounter Summary ---
[place] [address] Care Team Providers Care Dust Sampler Name Role Phone Nayla Miramontes MD Primary Care Provider [phone] Reason for Visit * Reason Onset Date Comments Pump/sensor 08/23/2018 Encounter Details Date Type Department Care Team (Late st Contact Info) Description 08/23/2018 Telephone [place] [phone] Rachna Espinosa Pump/sensor Social History Tobacco Use [...] * Telephone Encounter - Rachna Espinosa - 08/26/2018 4:21 PM EDT Confirmed 08/24 * Telephone Encounter - Rachna Espinosa - 08/23/2018 9:59 AM EDT CGM with physician's order received from [facility] Medical. Filled out. Roseanne Kay will sign. I will fax. documented in this encounter Plan of Treatment Upcoming Encounters Date Type Department Care Team (Late st Contact Info) Description 05/17/2024 2:30 PM EST Office [place] [address] Alcides Bonilla MD [facility] [place] [address] 04/06/2049 9:00 AM EST Hospital Encounter [place] [phone] Harry Guerrero MD [facility] [place] [address] documented as of this encounter Visit Diagnoses Not on filedocumented in this encounter Care Teams Dust Sampler Relationship Specialty Start Date End Date Nayla Miramontes MD [facility] ANABELLA LÓPEZ [facility] [address] [place] [address] PCP - General 05/21/11 05/10/21 documented as of this encounter
--- OUTSIDE RECORDS SUMMARY | 2024-03-07 18:56 | XMS_ITS | Encounter Summary ---
Author Organization [facility] [place] [address] Care Team Providers Care Major Account Representative Name Role Phone Nayla Miramontes MD Primary Care Provider [phone] Encounter Details Date Type Department Care Team (Late Contact Info) Description 05/24/2019 Telephone [place] [address] Rosa Elena Dodd Social History Tobacco Use Types Packs/Day Years [...] encounter Miscellaneous Notes * Telephone Encounter - Rosa Elena Dodd - 05/24/2019 1:55 PM EST Roxann is a former patient of Dr Boston. She saw Dr. Haywood once, last 2018. She does not want to see him again but would like to see someone else. Okay to schedule with anyone else? documented in this encounter Plan of Treatment Upcoming Encounters Date Type Department Care Team (Late st Contact Info) Description 05/17/2024 2:30 PM EST Office Visit [place] [address] Alcides Bonilla MD [facility] [place] [address] 04/06/2049 9:00 AM EST Hospital Encounter [place] [address] Harry Guerrero MD [facility] [place] [address] documented as of this encounter Visit Diagnoses Not on filedocumented in this encounter Care Teams Major Account Representative Relationship Specialty Start Date End Date Nayla Miramontes MD [facility] ANABELLA LÓPEZ [address] [address] PCP - General 05/21/11 05/10/21 documented as of this encounter
--- OUTSIDE RECORDS SUMMARY | 2024-03-07 18:56 | XMS_ITS | Encounter Summary ---
Author Organization [facility] Romel [facility] [address] Care Team Providers Care Ditch Repairer Name Role Phone Nayla Miramontes MD Primary Care Provider [phone] Encounter Details Date Type Department Care Team (Late Contact Info) Description 11/11/2019 Telephone [place] [address] Pollo Bryan Social History Tobacco Use Types Packs/Day Years [...] encounter Miscellaneous Notes * Telephone Encounter - Pollo Bryan - 11/11/2019 9:51 AM EDT Left vm to flor a f/u appt with a new provider. Please attach new referral. documented in this encounter Plan of Treatment Upcoming Encounters Date Type Department Care Team (Late st Contact Info) Description 05/17/2024 2:30 PM EST Office [place] [address] [facility] [place] [address] 04/06/2049 9:00 AM EST Hospital Encounter [place] [address] [facility] [place] [address] documented as of this encounter Visit Diagnoses Not on filedocumented in this encounter Care Teams Ditch Repairer Relationship Specialty Start Date End Date Nayla Miramontes MD [facility] ANABELLA LÓPEZ [facility] [address] [place] [address] PCP - General 05/21/11 05/10/21 documented as of this encounter
--- OUTSIDE RECORDS SUMMARY | 2024-03-07 18:56 | XMS_ITS | Encounter Summary ---
Author Organization [facility] [place] [address] Care Team Providers Care Registered Radiologic Technologist Name Role Phone Nayla Miramontes MD Primary Care Provider [phone] Encounter Details Date Type Department Care Team (Latest Contact Info) Description 08/13/2020 10:30 AM EDT Office Visit [place] [address] 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; Hypothyroidism, unspecified type Social History Tobacco Use [...] Sign Reading Time Taken Comments Blood Pressure 127/51 08/13/2020 9:55 AM EDT Pulse 67 08/13/2020 9:55 AM EDT Temperature 36.1 ??C (97 ??F) 08/13/2020 9:55 AM EDT Respiratory Rate - - Oxygen Saturation 99% 08/13/2020 9:55 AM EDT Inhaled Oxygen Concentration - - Weight 86.8 kg (191 lb 6.4 oz) 08/13/2020 9:55 A M EDT Height 167.6 cm (5' 6) 08/13/2020 9:55 AM EDT Body Mass Index 30.89 08/13/2020 9:55 AM EDT documented in this encounter Progress Notes * Gloria Pimentel MD - 08/13/2020 10:30 AM EDT Date of Visit: 08/13/20 Reason for Visit: DM type 1 HPI: Roxann Baxter is a 64 y.o. female with hypothyroidism and type 1 diabetes mellitus c/b retinopathy, presenting for follow-up of these issues. She uses a Medtronic 630G insulin pump. Her last diabetes visit in our clinic was in Feb 2020 with Molly Funez APRN, who adjusted her basal rates as follows: MN 0.675 --> 0.575 4:00a 0.675 --> 0.575 9:30a 0.700 --> no change 3:30p 0.825 --> 0.850 7:00p 0.750 --> 0.775 Plan was for follow-up in 3 months; she is here today for this planned visit. Diabetes History: DM type 1 diagnosed age 40. Most recent A1c: 9.4% (08/13/20), 8.7% (Feb 2020) Regimen: Medtronic 630G pump. Basal rates: 12 AM 0.575 4 AM 0.575 9:30a 0.700 3:30p 0.825 19:00 0.775 Bolus doses: Sensitivity [...] testing > than 5 if having hypoglycemia occurrences Episodes of hypoglycemia 3 - 4 times a week. Frequency of episodes needing assistance: 3 to 4 years ago Duration of need: lifetime Pump/Sensor information: Model: MM 670, Frequency of set changes: Every 3 Days Sensor: no CGM Diet: Has met with RD? Carb counts Counts carbs 3 meals/day * Breakfast: none today, normally special K with almond milk, coffee * Lunch soup sometimes with bread, sometimes 1/2 a peanut butter sandwich * Dinner: This is the biggest meal, crock pot roast, carrots, potatoes mushrooms * Drinks: rare * snacks: trouble with this Exercises: not a lot, does some walking Diabetes Complications Review: Eyes: + retinopathy, no history of laser therapy and/or injections, overdue for eye exam due to covid pandemic Kidneys: No history of microalbuminuria, proteinuria, decreased kidney function, CKD, dialysis or kidney transplant Component Latest Ref Rng & Units 02/06/2020 Alb/Cr Ratio, Random 0 - 29 mcg/mg Cr 4 U Albumin Conc, Random mg/L 6.5 U Creatinine mg/dL 152 Component Latest Ref Rng & Units 02/06/2020 Estimated GFR >=60 mL/min/1.73 m?? 51 (L) Feet: Normal shape, no history of foot ulcers, positive for numbness/tingling,no prior amputations,no prescription inserts or shoes. Sensation to monofilament intact (last checked Feb 2020) Autonomic: No history of gastroparesis, problems emptying bladder, inability to detect hypoglycemia, or tachycardia Cardiac: No chest pain with exertion, no SOB with walking one flight of stairs or at rest, No history of CAD, cardiac stents, cardiac bypass surgery,CHF, PVD, CVA. On statin. Lipid Panel Lab Results Component Value Date CHLPL 161 05/16/2015 HDL 69 05/16/2015 CHOLHDL 2.3 05/16/2015 LDLDIRECT 81 02/06/2020 Physical Exam: Gen: NAD, AAOx3, speaking full sentences, calm very pleasant demeanor Eyes: EOMI, anicteric sclerae ENT: no hoarseness Neck: no visible thyromegaly Pulm: good air movement, easy respirations MSK: 5/5 strength in upper and lower extremities Neuro: normal gait, no tremor, no focal findings Component Latest Ref Rng & Units 08/13/2020 Glucose Lvl 65 - 199 mg/dL 196 BUN 8 - 18 mg/dL 20 (H) Creatinine 0.70 - 1.20 mg/dL 0.83 Sodium 135 - 145 mmol/L 141 Potassium 3.5 - 5.0 mmol/L 4.4 Chloride 98 - 107 mmol/L 104 CO2 22 - 31 mmol/L 30 Anion Gap 5 - 15 mmol/L 7 Calcium 8.5 - 10.5 mg/dL 9.3 Estimated GFR >=60 mL/min/1.73 m?? 75 Hemoglobin A1C 4.3 - 5.6 % 9.4 (H) Est Avg Gluc mg/dL 223 TSH 0.27 - 4.20 mcIU/mL 2.30 Assessment: 64 y.o. female with DM type 1, although goal A1c would be 7.0% ideally, realistically her gastroparesis will make it difficult to achieve such tight control, aiming for 8.0% range. She is above goal today, and pump download is showing BG in the high 100s - mid 200s mostly, occasional 300-400s. She seems to be fairly compliant with boluses, but has gained weight, in part because of her relatively new anti-depressant (mirtazapine) which is well known to be an appetite stimulant. This has likely increased her insulin requirement a bit, and also likely has some mismatching due to gastroparesis, which will inevitably need to be handled with correction. H Plan: 1. DM type 1 - increased insulin requirement, likely related to weight gain. Her antidepressant mirtazapine is a notorious appetite stimulant. Unfortunately cannot add a GLP-1 agonist to her insulin regimen because she has gastroparesis and GLP-1 agonist would make it worse. Basal rates: 12 AM 0.575 --> 0.625 4 AM 0.575 --> 0.625 9:30a 0.700 --> 0.750 3:30p 0.825 --> 0.875 19:00 0.775 --> 0.825 Bolus CR 1:12 --> 1:10g SF 1:30 --> 1:25 mg/dL above 120 mg/dL --to see rheumatology nurse in the near future, overdue. 2. Hypothyroidism - TSH is euthyroid today on LT4 175 mcg daily. 3. Follow-up - 3 months, will transition to Dr. Darryl Barrera since I am leaving [facility] soon. Labs 1 hour prior. Total time spent on visit Including face to face time with patient, documentation and placing orders was 40 minutes. GLORIA PIMENTEL MD Website Designerbatch room technician Section of Endocrinology [facility] documented in this encounter Plan of Treatment Upcoming Encounters Date Type Department Care Team (Late st Contact Info) Description 05/17/2024 2:30 PM EST Office Visit [place] [phone] [facility] [place] [address] 04/06/2049 9:00 AM EST Hospital Encounter [place] [phone] [facility] [place] [address] documented as of this encounter Results * (ABNORMAL) Basic Metabolic Panel (non-fasting) (08/13/2020 9:34 AM EDT) [facility] Signature Glucose 196 65 - 199 mg/dL [facility] Comment:Diabetes: >=200 mg/d L plus symptoms Blood Urea Nitrogen 20(H) 8 - 18 mg/dL [facility] Creatinine 0.83 0.70 - 1.20 mg/dL [facility] Sodium 141 135 - 145 mmol/L [facility] Potassium 4.4 3.5 - 5.0 mmol/L [facility] Comment: Please note: ??Patients with WBC >100,000 may have falsely elevated Potassium levels. ??For accurate Potassium quantification in these patients send serum separator tube (gold top) for subsequent determinations. ??Contact the Clinical Chemistry Laboratory if there are any questions. Chloride 104 98 - 107 mmol/L [facility] Carbon Dioxide 30 22 - 31 mmol/L [facility] Anion Gap 7 5 - 15 mmol/L [facility] Calcium 9.3 8.5 - 10.5 mg/dL [facility] Est Glomerular Filtration Rate 75 >=60 mL/min/1. 73 m?? [facility] Comment: This patient? s estimated [...] In Lab Gloria Pimentel MD CHEMISTRY ORDERABLES [facility] [place] [id number] * (ABNORMAL) Hemoglobin A1c (08/13/2020 9:34 AM EDT) Hemoglobin A1c 9.4(H) 4.3 - 5.6 % [facility] Comment: Reference Range: 4.3 - [...] 36: Suppl. 1, S67-74 Estimated Average Glucose 223 mg/dL [facility] Comment: eAG equivalents for HbA1c [...] into estimated average glucose values. ??Diabetes Care 2008:31(8):1341-4877. 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
--- OUTSIDE RECORDS SUMMARY | 2024-03-07 18:56 | XMS_ITS | Encounter Summary ---
Author Organization [facility] [place] [address] Care Team Providers Care Game Warden Name Role Phone Nayla Miramontes MD Primary Care Provider [phone] Reason for Visit * Reason Onset Date Comments Appointment 03/08/2021 Encounter Details Date Type Department Care Team (Late Contact Info) Description 03/08/2021 Tele[place] [phone] Toña Morse I Appointment Social History Tobacco Use Types Packs/Day [...] encounter Miscellaneous Notes * Telephone Encounter - Toña Brothers I - 03/08/2021 8:50 AM EST Unable to contact patient to schedule from referral. Letter sent and referral closed documented in this encounter Plan of Treatment Upcoming Encounters Date Type Department Care Team (Late Contact Info) Description 05/17/2024 2:30 PM EST Office [place] [phone] Alcides Bonilla MD [facility] [place] [address] 04/06/2049 9:00 AM EST Hospital [place] [address] Harry Guerrero MD [facility] DR [place] [address] documented as of this encounter Visit Diagnoses Not on filedocumented in this encounter Care Teams Game Warden Relationship Specialty Start Date End Date Nayla Miramontes MD [facility] ANABELLA LÓPEZ [facility] [address] [place] [address] PCP - General 05/21/11 05/10/21 documented as of this encounter
--- OUTSIDE RECORDS SUMMARY | 2024-03-07 18:56 | XMS_ITS | Encounter Summary ---
Author Organization [facility] Address [facility] [place] [address] Care Team Providers Care Chief Scientist Name Role Phone Nayla Miramontes MD Primary Care Provider [phone] Reason for Visit * Reason Comments Follow-up Encounter Details Date Type Department Care Team (Late st Contact Info) Description 06/22/2018 9:00 AM EDT Office Visit [place] [address] Anastasiia Castanon MD [facility] [place] [address] Incontinence of feces, unspecified fecal incontinence type; Chronic diarrhea Social History Tobacco Use Types Packs/Day Years [...] Sign Reading Time Taken Comments Blood Pressure 132/61 06/22/2018 9:12 AM EDT Pulse 67 06/22/2018 9:12 AM EDT Temperature - - Respiratory Rate - - Oxygen Saturation - - Inhaled Oxygen Concentration - - Weight 84.6 kg (186 lb 9.6 oz) 06/22/2018 9:12 A M EDT Height 167.6 cm (5' 6) 06/22/2018 9:12 AM EDT Body Mass Index 30.12 06/22/2018 9:12 AM EDT documented in this encounter Patient Instructions * Patient Instructions* Anastasiia Castanon MD - 06/22/2018 9:00 AM EDT (1) Start Psyllium this helps bind water: If you buy the capsules (Equate brand), start with 2 per day for 1 week. Then increase to 4 per day. Alternative - powder. Similar, start with one serving and then increase gradually to minimize gas. (2) Eliminate lactose (3) Cut back coffee to 1 per day (4) If after a few weeks, you are still having troubles with loose stools and leakage, start 1 or 2imodium after your first bowel movement. Adjust this as needed to reduce diarrhea and leakage during the day (5) If needed, try a suppository in the morning after breakfast to help get all the stool out Send me a note via portal in 4 weeks ! 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 She is s/p a fundoplication and paraesophageal hernia repair in May 2016. She is from [place] and [facility] in [place], [place]. See visit note 03/2017 for full hx. Interval follow-up Bowels are so messed up. Wearing depends. Has a BM in diaper and doesn't realize it, variable to small amounts (tbsp) to larger amount. Consistency is semi-formed/loose, mushy. Has the urge to go sometimes and can make it but will have some incontinence. She is having daily bowel movements. 4x/time rough estimate. [place] type 6. Sensation of incomplete emptying. No straining. Small amounts come out only. Has lots of abdominal pain around the time she's having bowel movements. No incontinence overnight with bowels. Similar problems with urination; better with this than her bowels, however, No bowel routine. Gets up around 8:30-9:00am. Has cereal with milk (whole), a croissant & fake butter. Turns on the news - this is aggravating. Coffee (2 cups/day) in the AM. Not necessarily after eating. No blood in the stools. No change in weight. No change in DM meds. A1c ~ 8 juvencio. Off Humira - can't afford it. No insurance for meds. Not on fiber at this point. Caused a lot of bloating in the past when constipated. ROS: Constitutional: weight stable Psych: depression PAST MEDICAL HISTORY: ?? Psoriatic arthritis ?? Psoriasis ?? Diabetes mellitus I, on insulin pump, poorly controlled (Hba1c = 9.3) ?? Diabetic ketoacidosis ?? Diabetic gastroparesis ?? Proliferative diabetic retinopathy ?? Vitreous hemorrhage of both eyes ?? Hypothyroidism ?? GERD ?? Hypertension ?? Hyperlipidemia ?? Severe esophageal dilatation with non emptying of the esophagus (07/2013) Esophageal dysmotility (07/2013) ?? Large hiatal hernia (07/2013), s/p laparoscopic repair with fundoplasty (05/2016) Asthma ?? Severe iron deficiency ?? Microcytic anemia ?? Vitamin D deficiency ?? H/o gastric ulcer with perforation ?? Severe leftward lumbar scoliosis at L2-L3 (26 degrees) (05/2012) ?? Giron's esophagus ?? Large hiatus hernia (04/2011) ?? Reflux esophagitis (04/2011) ?? Proliferative diabetic retinopathy (L worse than R) ?? 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 Major depressive disorder with suicidal ideation ?? S/p x once ?? S/p laser treatment of diabetic retinopathy ?? RECENT TESTING 1. EGD 04/27/12: revealed a 5 cm hiatal hernia, food in the stomach, irregular Z- line at 33 cm. Giron's identified in biopsies; no dysplasia. 2. Small bowel follow-through 08/03/13: esophageal dilation; poor emptying of the esophagus; large hiatal hernia, otherwise normal. 3. Gastric emptying study 09/01/13: revealed that 50% remained at two hours, 17% remained at four hours. 4. Colonoscopy 09/23/13: poor preparation of the colon. 5. Colonoscopy 01/10/14: normal terminal ileum, no polyps, biopsies showed evidence of melanosis coli. Multiple large and small left-sided diverticula. 6. Barium swallow 01/17/14: poor emptying of the esophagus at one, two and five minutes. 7. High-resolution esophageal manometry 02/01/14: normal LES resting pressure, incomplete LES relaxation, normal UES resting pressure and relaxation, severe, ineffective esophageal motility given that only 2 of 11 swallows were peristaltic. 8. High-resolution esophageal manometry 09/05/14: hypotensive LES, normal LES relaxation, normal UES resting pressure and relaxation, severe ineffective esophageal motility. 9. EGD 01/01/16: tortuous esophagus, normal duodenum. Biopsies did not show evidence of celiac disease. Approximately 8 cm hiatal hernia; severe esophagitis. Biopsies of GE junction showed inflammation but no evidence of Giron's. 10. Barium swallow 02/13/16: tortuous esophagus, no evidence of obstruction, large hiatal hernia without evidence of paraesophageal component. Some reflux noted. Thirteen-mm barium tablet passed easily into the stomach. 11. Colonoscopy 12/2017 - diverticulosis in the sigmoid colon, no source for iron deficiency ?? MEDICATION/DIET TRIALS 1. Nexium - helps reflux. 2. Zofran - some help with nausea. 3. Tigan - some help with nausea. 4. MiraLAX - some help with constipation. 5. Amitiza - helps constipation. 6. Linaclotide - caused severe diarrhea. 7. Bethanechol - no significant help with dysphagia. Current Outpatient Medications: ??? busPIRone (BUSPAR) 5 mg Tablet, Take 5 mg by mouth. 5 mg am/ 10 mg qhs, Disp: , Rfl: ??? levothyroxine (SYNTHROID) 150 mcg Tablet, Take 150 mcg by mouth daily., Disp: , Rfl: ??? insulin lispro (HUMALOG) Solution, Inject 65 Units subcutaneously continuous. Continuous Via insulin pump, Disp: 60 mL, Rfl: 3 ??? melatonin 5 mg Tablet, Take 5 mg by mouth nightly., Disp: , Rfl: ??? Diabetic Supplies, [facility]fusion sets faxed to [facility], Disp: 100 each, Rfl: 12 ??? atorvastatin (LIPITOR) 40 mg Tablet, Take 40 mg by mouth daily., Disp: , Rfl: ??? celecoxib (CELEBREX) 100 mg Capsule, Take 100 mg by mouth 2 times daily., Disp: , Rfl: ??? nefazodone (SERZONE) 100 mg Tablet, Take 1 tablet by mouth 2 times daily. (Patient taking differently: Take 250 mg by mouth 2 times daily.), Disp: 30 tablet, Rfl: 0 ??? Diabetic Supplies, [facility] Inject 1 each subcutaneously 4 times daily. Faxed pump and supply order to [facility] at [phone]. Dx Code: 250.01, Disp: 100 each, Rfl: 12 ??? Diabetic Supplies, Miscellan. [facility] faxed to [facility], Disp: 100 each, Rfl: 12 ??? bisacodyl (DULCOLAX) 10 mg Suppository, Place 1 suppository rectally daily. (Patient taking differently: Place 10 mg rectally as needed.), Disp: 60 suppository, Rfl: 3 ??? ondansetron (ZOFRAN-ODT) 8 mg Tablet, Rapid Dissolve, Take 1 tablet by mouth every 8 hours as needed for Nausea., Disp: 20 tablet, Rfl: 11 ??? lisinopril (PRINIVIL;ZESTRIL) 20 mg Tablet, Take 1 tablet by mouth daily., Disp: 30 tablet, Rfl: ??? MULTI-VITAMIN ORAL, Take 1 tablet by mouth daily. Reported on 05/26/2016, Disp: , Rfl: ??? Adalimumab (HUMIRA PEN) 40 mg/0.8 mL Pen Injector Kit, Inject 0.8 mLs subcutaneously every 14 days. (Patient not taking: Reported on 05/31/2018), Disp: 3 kit, Rfl: 3 ??? magnesium citrate Solution, Take 295 mLs by mouth 2 times daily as needed. (Patient not taking:Reported on 05/31/2018), Disp: 590 mL, Rfl: 5 ??? sodium phosphates (FLEET) Enema, Place 1 Bottle rectally once as needed for Constipation for upto 1 dose. (Patient not taking: Reported on 05/31/2018), Disp: 135 mL, Rfl: 3 ??? insulin glargine (LANTUS) Solution, Inject 10 Units subcutaneously 2 times daily. Needed for insulin pump failure Indications: type 1 diabetes mellitus (Patient not taking: Reported on 05/12/2018),Disp: 10 mL, Rfl: 0 Allergies Allergen Reactions ??? Codeine Phosphate Nausea Only ??? Propoxyphene N-Acetaminophen Nausea Only Past Surgical History: Procedure Laterality Date ??? CATARACT REMOVAL Left 09/26/2014 Dr Villalba ??? CATARACT REMOVAL 01/17/2015 OD - Dr Villalba ??? FINGER SURGERY ??? PRO COLONOSCOPY, DIAGNOSTIC 09/13/2013 COLONOSCOPY, DIAGNOSTIC performed by Marie Zamora MD at [facility] ENDOSCOPY ??? PRO COLONOSCOPY, DIAGNOSTIC 01/10/2014 COLONOSCOPY, DIAGNOSTIC performed by Marie Zamora MD at [facility] ENDOSCOPY ??? PRO COLONOSCOPY, DIAGNOSTIC N/A 01/01/2018 COLONOSCOPY, DIAGNOSTIC performed by Anastasiia Castanon MD at [facility] ENDOSCOPY ??? PRO LAPAROSCOPY, SURG, REPAIR PARAESOPHAGEAL HERNIA, W/O IMPLANTATION OF MESH N/A 05/08/2016 LAPAROSCOPIC PARAESOPHAGEAL HERNIA REPAIR W/FUNDOPLASTY, W/O MESH (WRVU 26.6) performed by Sonja Chavez MD at [facility] MAIN OR ??? PRO UPPER GI ENDOSCOPY, BIOPSY 04/27/2012 UPPER GASTROINTESTINAL ENDOSCOPY,WITH BIOPSY SINGLE OR MULTIPLE performed by Luis Bucio MD [facility] ENDOSCOPY ??? PRO UPPER GI ENDOSCOPY, BIOPSY N/A 01/01/2016 EGD WITH BIOPSY performed by Giuseppe Caban MD at [facility] ENDOSCOPY ??? PRO UPPER GI ENDOSCOPY, DIAGNOSTIC N/A 04/24/2014 EGD, UPPER GI ENDOSCOPY performed by Harry Guerrero MD at [facility] ENDOSCOPY ??? PRO VITRECTOMY,FOCAL LASER RX RETINA 05/16/2013 OS VITRECTOMY, PARS PLANA, LASER performed by Dany Young MD at [facility] MAIN OR ??? RETINAL LASER SURGERY ??? UPPER GI ENDOSCOPY, EXAM 04/25/2011 UPPER GI ENDOSCOPY performed by MARIA DEL CARMEN BOB at [facility] ENDOSCOPY Social History Socioeconomic History ??? Marital status: Spouse name: Not on file ??? Number of children: Not on file ??? Years of education: Not on file ??? Highest education level: Not on file Occupational History ??? Not on file Social Needs ??? Financial resource strain: Not on file ??? Food insecurity: Worry: Not on file Inability: Not on file ??? Transportation needs: Medical: Not on file Non-medical: Not on file Tobacco Use ??? Smoking status: Former Smoker Types: Cigarettes Last attempt to quit: 05/06/1984 Years since quittin.1 ??? Smokeless tobacco: Never Used Substance and Sexual Activity ??? Alcohol use: No Comment: once a year ??? Drug use: No ??? Sexual activity: Not Currently Partners: Male control/protection: Abstinence Lifestyle ??? Physical activity: Days per week: Not on file Minutes per session: Not on file ??? Stress: Not on file Relationships ??? Social connections: Talks on phone: Not on file Gets together: Not on file Attends hinduism service: Not on file Active member of club or organization: Not on file Attends meetings of clubs or organizations: Not on file Relationship status: Not on file ??? Intimate partner violence: Fear of current or ex partner: Not on file Emotionally abused: Not on file Physically abused: Not on file Forced sexual activity: Not on file Other Topics Concern ??? Do You live alone? Not Asked ??? Tobacco in Home Not Asked Social History Narrative ??? Not on file Family History Problem Relation Age of Onset ??? Depression Father ??? Mental Illness Father ??? Alcohol Abuse Father ??? Dementia Father ??? Depression Sister ??? Anxiety Disorder Sister ??? Mental Illness Sister ??? Alcohol Abuse Sister ??? Alcohol Abuse Brother ??? Diabetes Neg Hx ??? Glaucoma Neg Hx ??? Macular Degeneration Neg Hx ??? Retinal Detachment Neg Hx ??? Amblyopia Neg Hx ??? Strabismus Neg Hx ??? Colorectal Cancer Neg Hx BP 132/61 Pulse 67 Ht 167.6 cm (5' 6) Wt 84.6 kg (186 lb 9.6 oz) LMP (LMP Unknown) BMI 30.12 kg/m?? Physical exam: Constitutional: Well appearing, NAD, AAO x 3 Gastrointestinal: soft, NT, ND Rectal exam: stool around opening and in vault that is loose; moderately weak resting tone Data: As above Impression: 62 yo female with IDDM type 1 x 40+ years c/b retinopathy and neuropathy, psoriasis with psoriatic arthritis, refractory GERD with esophagitis and esophageal dysmotility s/p fundoplication with repair of paraesophageal hernia 05/2016, mild gastroparesis and chronic constipation kindly presents for follow-up. Symptoms are having a significant impact on her QOL and contributing to depression. I tried to be supportive and let her know we would continue to work on this. She's dealing with non-bloody diarrheal stools and fecal incontinence that is both passive and urge-related. Very weak IAS likely 2/2 to diabetes. Suspect dysmotility (overflow from constipation/functional), possible diabetic diarrhea 2/2to this and autonomic neuropathy as well as bacterial imbalance (overgrowth). Emphasized bulking the stools/trying to improve consistency to maximize control. Plan discussed with patient: (1) Start Psyllium: 2 per day for 1 week. Then increase to 4 per day. Alternative - powder. Similar, start with one serving and then increase gradually. If too much gas/bloating, we can try an alternate fiber (Citrucel or Benefiber) (2) Eliminate lactose (3) Cut back coffee to 1 per day (4) If symptoms persist after a few weeks, try adding 1 or 2 imodium the first bowel movement of the day; consider lomotil (5) If needed, try a suppository in the morning after breakfast to help evacuation (7) Consider course abx; limited by cost but may try flagyl (8) Consider 10 to 20mg of dicyclomine TID given associated cramps (9) She asked about surgery/procedures; I think we need to address her bowel habits and stool consistency prior to considering these options. Further evaluation of the pelvic floor with ARM-BET or MRI pelvis may be helpful at some point if no improvement. Encouraged her to follow-up with me via portal in 4 weeks and schedule office visit for 3-6 mo. Total visit time: 30 minutes Counseling time: Greater than 15 minutes of this 30 minute face to face visit were spent in direct counseling and coordination of care for the above issues. The risks, benefits and alternatives were discussed with the patient who understands and agrees with above. Anastasiia Castanon MD 06/22/18 documented in this encounter Plan of Treatment Upcoming Encounters Date Type Department Care Team (Late st Contact Info) Description 05/17/2024 2:30 PM EST Office Visit [place] [address] Alcides Bonilla MD [facility] [place] [address] 04/06/2049 9:00 AM EST Hospital Encounter [place] [phone] Harry Guerrero MD [facility] [place] [address] documented as of this encounter Visit Diagnoses Diagnosis Incontinence of feces, unspecified fecal incontinence type Chronic diarrhea Diarrhea documented in this encounter Care Teams Chief Scientist Relationship Specialty Start Date End Date Nayla Miramontes MD [facility] [address] [place] [address] PCP - General 05/21/11 05/10/21 documented as of this encounter
--- OUTSIDE RECORDS SUMMARY | 2024-03-07 18:56 | XMS_ITS | Encounter Summary ---
Author Organization [facility] [place] [address] Care Team Providers Care Condenser Setter Name Role Phone Nayla Miramontes MD Primary Care Provider [phone] Encounter Details Date Type Department Care Team (Late st Contact Info) Description 04/25/2019 Telephone Endocrinology at [facility] [place] [phone] Tyler Self RN Social History Tobacco Use [...] Telephone Encounter - Tyler Self RN - 04/25/2019 11:21 AM EST Returned call to Tamanna and left voicemail relaying message from Dr Antonio. * Telephone Encounter - Tyler Self RN - 04/25/2019 11:08 AM EST Received voicemail from Tamanna at [facility]. Pt is waiting on order for insulin pump infusion sets. They would like to bridge with Lantus insulin and wonder how many units she should take per day. Pt seems to think she should be taking 15 units. Tamanna return phone: [phone] ext. [phone] documented in this encounter Plan of Treatment Upcoming Encounters Date Type Department Care Team (Late st Contact Info) Description 05/17/2024 2:30 PM EST Office [place] [phone] Alcides Bonilla MD [facility] [place] [address] 04/06/2049 9:00 AM EST Hospital Encounter [place] [phone] Harry Guerrero MD [facility] [place] [address] documented as of this encounter Visit Diagnoses Not on filedocumented in this encounter Care Teams Condenser Setter Relationship Specialty Start Date End Date Nayla Miramontes MD [facility] A[address]BELLA L[address]PEZ [facility] [address] [place] [address] PCP - General 05/21/11 05/10/21 documented as of this encounter
--- OUTSIDE RECORDS SUMMARY | 2024-03-07 18:56 | XMS_ITS | Encounter Summary ---
Author Organization [facility] [place] [address] Care Team Providers Care Jewel Lathe Operator Name Role Phone Nayla Miramontes MD Primary Care Provider [phone] Encounter Details Date Type Department Care Team (Late Contact Info) Description 12/06/2020 [place] [phone] Janessa Piper RN Social History Tobacco Use Types Packs/Day [...] encounter Miscellaneous Notes * Telephone Encounter - Janessa Piper RN - 12/06/2020 1:48 PM EDT Left 2nd message on secure nurse triage line stating that lantus would be an appropriate alternative for long acting insulin levemir due to insurance coverage issues. I also asked for the PCP office to return our call to let us know if the patient is only receiving This prescription as back-up insulin for pump failure or if the patient is not using their insulin pump. documented in this encounter Plan of Treatment Upcoming Encounters Date Type Department Care Team (Late st Contact Info) Description 05/17/2024 2:30 PM EST [place] [phone] Alcides Bonilla MD [facility] [place] [address] 04/06/2049 9:00 AM EST Hospital [place] [phone] Harry Guerrero MD [facility] [place] [address] documented as of this encounter Visit Diagnoses Not on filedocumented in this encounter Care Teams Jewel Lathe Operator Relationship Specialty Start Date End Date Nayla Miramontes MD [facility] ANABELLA LÓPEZ [facility] [address] [place] [address] PCP - General 05/21/11 05/10/21 documented as of this encounter
--- OUTSIDE RECORDS SUMMARY | 2024-03-07 18:56 | XMS_ITS | Encounter Summary ---
Author Organization [facility] [place] [address] Care Team Providers Care Devulcanizer Charger Name Role Phone Nayla Miramontes MD Primary Care Provider [phone] Encounter Details Date Type Department Care Team (Latest Contact Info) Description 08/03/2022 Travel Social History Tobacco Use Types Packs/Day [...] 2:30 PM EST Office [place] [phone] Alcides Bonilla MD [facility] [place] [address] 04/06/2049 9:00 AM EST Hospital Encounter [place] [phone] Harry Guerrero MD [facility] [place] [address] documented as of this encounter Visit Diagnoses Not on filedocumented in this encounter Care Teams Devulcanizer Charger Relationship Specialty Start Date End Date Nayla Miramontes MD [facility] ANABELLA LÓPEZ [facility] [address] [place] [address] PCP - General Family Medicine 05/11/21 documented as of this encounter
--- OUTSIDE RECORDS SUMMARY | 2024-03-07 18:56 | XMS_ITS | Encounter Summary ---
Author Organization [facility] [place] [address] Care Team Providers Care College Dean Name Role Phone Nayla Miramontes MD Primary Care Provider [phone] Reason for Visit * Auth/Cert (Routine) Specialty Diagnoses / Procedures Referred By Franklin laird Referred To Contact Diagnoses diarrhea and dyspepsia - needs pediatric colonoscope Procedures PRO UPPER GI ENDOSCOPY, DIAGNOSTIC PRO COLONOSCOPY, DIAGNOSTIC EGD, UPPER GI ENDOSCOPY (WRVU 2.09) COLONOSCOPY, DIAGNOSTIC (WRVU 3.26) Giuseppe Caban MD [facility] [place] [address] [facility] Referral ID Status Reason Start Date Expiration Date Visits Re quested Visits Authorized [id number] 1 1 Encounter Details Date Type Department Care Team (Late st Contact Info) Description 08/21/2022 11:00 AM EDT - 08/21/2022 12:00 PM EDT Surgery [place] [address] Kayley Spence MD [facility] [place] [address] EGD WITH BIOPSY (WRVU 2.39) Social History Tobacco Use Types Packs/Day Years [...] Sign Reading Time Taken Comments Blood Pressure 185/105 08/21/2022 12:00 PM EDT Pulse 71 08/21/2022 12:00 PM EDT Temperature 36.5 ??C (97.7 ??F) 08/21/2022 10:30 AM E DT Respiratory Rate 15 08/21/2022 12:00 PM EDT Oxygen Saturation 96% 08/21/2022 12:00 PM EDT Inhaled Oxygen Concentration - - Weight 90.7 kg (200 lb) 08/21/2022 10:30 AM EDT Height 167.6 cm (5' 6) 08/21/2022 10:30 AM EDT Body Mass Index 32.28 08/21/2022 10:30 AM EDT documented in this encounter Medications at Time of Discharge Medication Sig Dispensed Refills Start Date End Date meclizine (Antivert) 25 mg tablet 07/28/2022 irbesartan (Avapro) 150 mg tablet 06/20/2022 levothyroxine (Synthroid) 150 mcg Tablet Take 1 tablet by mouth daily. 90 tablet 3 08/05/2021 desvenlafaxine succinate (PRISTIQ ORAL) Take 200 mg by mouth daily. trimethobenzamide (TIGAN) 300 mg Capsule Take by mouth 4 times daily as needed. 08/08/2015 Symbicort 160-4.5 mcg/actuation HFA Aerosol Inhaler as needed. 05/02/2020 gabapentin (Neurontin) 300 mg Capsule TK 2 CS PO TID 01/18/2020 busPIRone (BUSPAR) 5 mg Tablet Take 10 mg by mouth 3 times daily. Adalimumab (HUMIRA PEN) 40 mg/0.8 mL Pen Injector Kit Inject 0.8 mLs subcutaneously every 14 days. 3 kit 3 05/14/2018 insulin lispro (HUMALOG) Solution Inject 65 Units subcutaneously continuous. Continuous Via insulin pump 60 mL 3 06/23/2017 melatonin 5 mg Tablet Take 10 mg by mouth nightly. magnesium citrate Solution Take 295 mLs by mouth 2 times daily as needed. 590 mL 5 03/06/2017 Diabetic Supplies, Miscellan. [facility] DWO for Infusion sets faxed to [employer] 100 each 12 02/01/2017 insulin glargine (LANTUS) SolutionIndications :type 1 diabetes mellitus Inject 10 Units subcutaneously 2 times daily. Needed for insulin pump failure Indications: type 1 diabetes mellitus 10 mL 01/23/2017 atorvastatin (LIPITOR) 40 mg Tablet Take 40 mg by mouth daily. 04/28/2016 celecoxib (CELEBREX) 100 mg Capsule Take 100 mg by mouth 2 times daily. 04/28/2016 Diabetic Supplies, Miscellan. [facility] Inject 1 each subcutaneously 4 times daily. Faxed pump and supply order to [employer] at [phone]. Dx Code: 250.01 100 each 12 12/21/2015 Diabetic Supplies, Miscellan. [facility] MNF faxed to [facility] 100 each 12 10/30/2015 bisacodyl (DULCOLAX) 10 mg SuppositoryIndicati ons:Other constipation Place 1 suppository rectally daily. 60 suppository 3 03/20/2015 lisinopril (PRINIVIL;ZESTRIL) 20 mg Tablet Take 1 tablet by mouth daily. 30 tablet 12/08/2013 MULTI-VITAMIN ORAL Take 1 tablet by mouth daily. Reported on 05/26/2016 mirtazapine (Remeron) 15 mg Tablet 45 mg as needed. 02/01/2020 01/22/2024 sodium phosphates (FLEET) Enema Place 1 Bottle rectally once as needed for Constipation for up to 1 dose. 135 mL 3 03/06/2017 08/26/2022 nefazodone (SERZONE) 100 mg Tablet Take 1 tablet by mouth 2 times daily. 30 tablet 02/14/2016 01/22/2024 ondansetron (ZOFRAN-ODT) 8 mg Tablet, Rapid DissolveIndications :N&V (nausea and vomiting) Take 1 tablet by mouth every 8 hours as needed for Nausea. 20 tablet 11 11/15/2014 01/22/2024 documented as of this encounter H&P Notes * Kayley Spence MD - 08/21/2022 10:53 AM EDT Gastroenterology and Hepatology Pre-Procedure History and Physical Exam Procedure: Colonoscopy: EGD Indication: diarrhea, hx Giron's, dyspepsia Patient Active Problem List Diagnosis Code ??? Diabetes mellitus E11.9 ??? Hypertension I10 ??? Hyperlipidemia E78.5 ??? Hypothyroidism E03.9 ??? Psoriasis L40.9 ??? Depression F32.A ??? Iron deficiency E61.1 ??? Asthma J45.909 ??? Microcytic anemia D50.9 ??? GERD (gastroesophageal reflux disease) K21.9 ??? Giron's esophagus K22.70 ??? Diabetic retinopathy associated with type 1 diabetes mellitus E10.319 ??? DKA (diabetic ketoacidoses) E11.10 ??? Reflux esophagitis K21.00 ??? Gastritis K29.70 ??? Anasarca R60.1 ??? Cortical cataract H26.9 ??? 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 Vitreous hemorrhage of left eye H43.12 ??? PSC (posterior subcapsular cataract), bilateral [id number] ??? Type 1 diabetes mellitus E10.9 ??? PDR (proliferative diabetic retinopathy) E11.3599 ??? Nuclear sclerosis H25.10 ??? Proliferative diabetic retinopathy of both eyes.-mild resolving bilateral vitreous hemorrhages.No traction. Good PRP. E11.3593 ??? Psoriatic arthritis.currently on Hydroxychloroquine. No signs of hydroxychloroquine retinopathy. Recommend close followup. L40.50 ??? Seborrheic keratosis L82.1 ??? Solar lentigo L81.4 ??? Xerosis cutis L85.3 ??? Pruritus L29.9 ??? Scoliosis M41.9 ??? Chronic bilateral low back pain without sciatica M54.50, G89.29 ??? Dysphagia R13.10 ??? Chronic constipation K59.09 ??? PDR (proliferative diabetic retinopathy) E11.3599 ??? Diabetic retinopathy E11.319 ??? Vitreous hemorrhage of right eye H43.11 ??? IDDM (insulin dependent diabetes mellitus) [id number] ??? Urinary incontinence R32 ??? Pseudophakia of both eyes (OD - 15, OS - 09/26/14) Z96.1 ??? Presence of insulin pump Z96.41 ??? MDD (major depressive disorder), recurrent episode, moderate F33.1 ??? Morbid obesity E66.01 ??? Fecal incontinence R15.9 ??? Chronic pain of both knees M25.561, M25.562, G89.29 ??? Pain in both hands M79.641, M79.642 ??? Osteoarthritis M19.90 ??? Chronic pain of both shoulders M25.511, G89.29, M25.512 ??? Morning joint stiffness M25.60 ??? Bilateral hip pain M25.551, M25.552 EXAM: HEENT: Airway examined, oropharynx clear Mallampati Score: II (soft palate, uvula, fauces visible) LUNGS: Clear to auscultation HEART: Regular rate and rhythm, normal S1, S2 ABDOMEN: Normal bowel sounds, soft, non tender, non distended, A/P Proceed with the planned endoscopic procedure. ASA 2 - Patient with mild systemic disease with no functional limitations Sedation Plan: moderate (conscious sedation) Risks and benefits of the procedure explained to the patient. Consent signed. documented in this encounter Plan of Treatment Upcoming Encounters Date Type Department Care Team (Late st Contact Info) Description 05/17/2024 2:30 PM EST Office Visit [place] [address] Alcides Bonilla MD [facility] [place] [address] 04/06/2049 9:00 AM EST Hospital Encounter [place] [address] Harry Guerrero MD [facility] DR GASTROENTER[place] [address] documented as of this encounter Procedures Procedure Name Priority Date/Time Associated Diagnosis Comments POCT GLUCOSE Routine 08/21/2022 12:12 PM EDT SPECIMEN TO PATHOLOGY Routine 08/21/2022 12:06 PM EDT SPECIMEN TO PATHOLOGY Routine 08/21/2022 11:46 AM EDT SPECIMEN TO PATHOLOGY Routine 08/21/2022 11:42 AM EDT SURGICAL PATHOLOGY REPORT Routine 08/21/2022 11:40 AM EDT Colonoscopy, Biopsy ([id number]) 08/21/2022 11:27 AM EDT Irritable bowel syndrome with both constipation and diarrhea Functional dyspepsia Upper Gi Endoscopy, Biopsy ([id number]) 08/21/2022 11:27 AM EDT Irritable bowel syndrome with both constipation and diarrhea Functional dyspepsia POCT GLUCOSE Routine 08/21/2022 10:51 AM EDT POCT GLUCOSE Routine 08/21/2022 10:40 AM EDT documented in this encounter Results * POCT Glucose (08/21/2022 12:12 PM EDT) Glucose, POC 184 65 - 199 mg/dL [facility] Comment: Supplemental ranges: <140 mg/dL before meals <180 mg/dL all other times of the day Blood 08/21/2022 12:1 2 PM EDT 08/21/2022 12:12 PM EDT Kayley Spence MD POINT OF CARE TEST O RDERARADHA [facility] [place] [address] * Specimen to Pathology (08/21/2022 12:06 PM EDT) AP Specimen 08/21/2022 12:0 6 PM EDT 08/21/2022 12:06 PM EDT Narrative [facility] - 08/21/2022 12:06 PM EDT Specimen requisition ordered. ??Separate Pathology report to follow Kayley Spence MD PATHOLOGY/[place] [address] * Specimen to Pathology (08/21/2022 11:46 AM EDT) AP Specimen 08/21/2022 11:4 6 AM EDT 08/21/2022 11:46 AM EDT Narrative [facility] - 08/21/2022 11:46 AM EDT Specimen requisition ordered. ??Separate Pathology report to follow Kayley Spence MD PATHOLOGY/CYTOLOGY O JESSICA Performing Organization Address [facility] [place] [place] [address] * Specimen to Pathology (08/21/2022 11:42 AM EDT) AP Specimen 08/21/2022 11:4 2 AM EDT 08/21/2022 11:42 AM EDT Narrative [facility] - 08/21/2022 11:42 AM EDT Specimen requisition ordered. ??Separate Pathology report to follow Kayley Spence MD PATHOLOGY/CYTOLOGY O JESSICA Performing Organization Address [facility] [place] [address] * Surgical Pathology Report (08/21/2022 11:40 AM EDT) Final Diagnosis [id number] ? Location: 4T; EA10; A The signing pathologist has (i) examined the relevant preparation(s) for the specimen(s) and (ii) rendered or confirmed the diagnosis(es). . ?Surgical Pathology DIAGNOSIS A - Gastric ??biopsies, biopsy: - Gastric antral and body type mucosa with chronic inactive gastritis. - No h. pylori like microorganisms seen. B - Distal esophagus biopsies, biopsy (Multiple): - ??Squamocolumnar junctional mucosa (cardia type) with mild chronic inflammation. There is no evidence of intestinal metaplasia. Note: Deep levels are examined. C - Non targeted biopsies, biopsy (Multiple): - ??Colonic mucosa with focal increased intraepithelial lymphocytes, see comment. Comment: Current biopsies are characterized by an inflammatory cell infiltrate in the lamina propria and focally increased intraepithelial lymphocytes, therefore still fall short of fulfilling ?? morphologic criteria for lymphocytic colitis. Clinical follow up is ??recommended. Electronically signed by: ?Neftali GUO, Regulo Verified: ??09/05/2022 9:38 ?? Pathologist Performed at: ??-[facility] [place]ology, [place] [address] Doping Supervisor: Delbert Faye MD, FCAP, ??CLIA Certificate: [id number] SPECIMEN(S) SUBMITTED A - Gastric ??biopsies, biopsy (1) B - Distal esophagus biopsies, biopsy (Multiple) C - Non targeted biopsies, biopsy (Multiple) CLINICAL INFORMATION 66-year-old Hx of Giron's and gastroparesis. SPECIMEN PROCESSING A - Labeled/Fixative: Gastric biopsies, formalin. Quantity/Size: Six, ranging from 0.2-0.3 cm. Tissue Description: Soft, brandon-pink tissues. Sections/Processin g: Submitted en toto ??in 2 cassettes labeled A1-A2. B - Labeled/Fixative: Distal esophagus biopsies, formalin. Quantity/Size: Two, each 0.3 cm. Tissue Description: Soft, brandon-pink tissues. Sections/Processin g: Submitted en toto ??in 1 cassette labeled B1. C - Labeled/Fixative: Non-targeted biopsies, formalin. Quantity/Size: Multiple, ranging from 0.2-0.4 cm. Tissue Description: Soft, brandon-pink tissues. Sections/Processin g: Submitted en toto ??in 2 cassettes labeled C1-C2. ??jnr 09/05/2022 9:38 AM EDT [facility] GI Biopsy 08/21/2022 11:4 0 AM EDT 08/21/2022 11:40 AM EDT GI Biopsy 08/21/2022 11:4 0 AM EDT 08/21/2022 11:40 AM EDT GI Biopsy 08/21/2022 11:4 0 AM EDT 08/21/2022 11:40 AM EDT Kayley Spence MD PATHOLOGY/CYTOLOGY O RDKATHY Performing Organization Address [facility] Co de Phone Number [facility] [place] [address] [facility] [place] [address] * POCT Glucose (08/21/2022 10:51 AM EDT) Glucose, POC 99 65 - 199 mg/dL [facility] Comment: Supplemental ranges: <140 mg/dL before meals <180 mg/dL all other times of the day Blood 08/21/2022 10:5 1 AM EDT 08/21/2022 10:51 AM EDT Kayley Spence MD POINT OF CARE TEST O RDERARADHA Performing Organization Address [facility] Co de Phone Number [facility] [place] [address] * (ABNORMAL) POCT Glucose (08/21/2022 10:40 AM EDT) Glucose, POC 59(L) 65 - 199 mg/dL [facility] Comment: Supplemental ranges: <140 mg/dL before meals <180 mg/dL all other times of the day Blood 08/21/2022 10:4 0 AM EDT 08/21/2022 10:40 AM EDT Kayley Spence MD POINT OF CARE TEST O JESSICA Performing Organization Address [facility] Co de Phone Number [facility] [place] [address] documented in this encounter Visit Diagnoses Diagnosis Irritable bowel syndrome with both constipation and diarrhea Functional dyspepsia Dyspepsia and other specified disorders of function of stomach documented in this encounter Administered Medications Inactive Administered Medications - up to 3 most recent administrations Medication Order MAR Action Action Date Dose Rate Site benzocaine (Hurricane One) 20% spray (restricted to katherin-procedural use) ONCE PRN, Starting on Cristina 08/21/22 at 1129, Until Cristina 08/21/22 at 1614, Intra-Operative (Intra-Procedure) Given 08/21/2022 11:29 AM EDT 1 spray fentaNYL (pf) (50 mcg/mL) multi-dose injection ONCE PRN, Starting on Cristina 08/21/22 at 1131, Until Cristina 08/21/22 at 1614, Intra-Operative (Intra-Procedure), Routine Given 08/21/2022 11:54 AM EDT 25 mcg Given 08/21/2022 11:51 AM EDT 25 mcg Given 08/21/2022 11:34 AM EDT 50 mcg midazolam (pf) (Versed) (1 mg/mL) multi-dose injection ONCE PRN, Starting on Cristina 08/21/22 at 1131, Until Cristina 08/21/22 at 1614, Intra-Operative (Intra-Procedure), Routine Given 08/21/2022 12:00 PM EDT 0.5 mg Given 08/21/2022 11:54 AM EDT 1 mg Given 08/21/2022 11:48 AM EDT 1 mg documented in this encounter Active and Recently Administered Medications Times are shown in EDT. PRN Medication Order 08/19/2022 08/20/2022 08/21/2022 benzocaine (Hurricane One) 20% spray (restricted to katherin-procedural use) (CANCELED) ONCE PRN, Starting on Cristina 08/21/22 at 1129, Until Cristina 08/21/22 at 1614, Intra-Operative (Intra-Procedure) 1129 (Given - Provid er: Marilee Herbert RN) fentaNYL (pf) (50 mcg/mL) multi-dose injection (CANCELED) ONCE PRN, Starting on Cristina 08/21/22 at 1131, Until Cristina 08/21/22 at 1614, Intra-Operative (Intra-Procedure), Routine 1131 (Given - Provid er: Marilee Herbert RN)1134 (Given - Provider: Marilee Herbert RN)1151 (Given - Provider: Marilee Herbert RN)1154 (Given - Provider: Marilee Herbert RN) midazolam (pf) (Versed) (1 mg/mL) multi-dose injection (CANCELED) ONCE PRN, Starting on Cristina 08/21/22 at 1131, Until Cristina 08/21/22 at 1614, Intra-Operative (Intra-Procedure), Routine 1131 (Given - Provid er: Marilee Herbert, ELSA)1134 (Given - Provider: Marilee Herbert RN)1138 (Given - Provider: Marilee Herbert RN)1148 (Given - Provider: Marilee Herbert RN - Comment: 1st colo dose)1154 (Given - Provider: Marilee Herbert RN)1200 (Given - Provider: Marilee Herbert RN) documented in this encounter Care Teams College Dean Relationship Specialty Start Date End Date Nayla Miramontes MD [facility] [address] [address] PCP - General Family Medicine 05/11/21 documented as of this encounter
--- OUTSIDE RECORDS SUMMARY | 2024-03-07 18:56 | XMS_ITS | Encounter Summary ---
[place] [address] Care Team Providers Care Steam And Power Supervisor Name Role Phone Nayla Miramontes MD Primary Care Provider [phone] Reason for Visit * Reason Onset Date Comments Pump/sensor 05/09/2019 Encounter Details Date Type Department Care Team (Late st Contact Info) Description 05/09/2019 Telephone [place] [phone] Rachna Espinosa Pump/sensor Social History Tobacco Use [...] * Telephone Encounter - Rachna Espinosa - 05/27/2019 3:38 PM EST Confirmed 05/09 * Telephone Encounter - Rachna Espinosa - 05/09/2019 12:04 PM EST Received DWO for CGM for Yvonne from patient's PCP. 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 Will fax to Yvonne documented in this encounter Plan of Treatment Upcoming Encounters Date Type Department Care Team (Late st Contact Info) Description 05/17/2024 2:30 PM EST Office Visit [place] [phone] Alcides Bonilla MD [facility] [place] [address] 04/06/2049 9:00 AM EST Hospital Encounter [place] [phone] Harry Guerrero MD [facility] DR [place] [address] documented as of this encounter Visit Diagnoses Not on filedocumented in this encounter Care Teams Steam And Power Supervisor Relationship Specialty Start Date End Date Nayla Miramontes MD [facility] [address] [place] [address] PCP - General 05/21/11 05/10/21 documented as of this encounter
--- OUTSIDE RECORDS SUMMARY | 2024-03-07 18:56 | XMS_ITS | Encounter Summary ---
Author Organization [facility] [address] Care Team Providers Care Truss Driver Helper Name Role Phone Nayla Miramontes MD Primary Care Provider [phone] Encounter Details Date Type Department Care Team (Late st Contact Info) Description 12/05/2020 Telephone [place] [phone] Janessa Piper RN Social History Tobacco Use [...] encounter Miscellaneous Notes * Telephone Encounter - aJnessa Piper RN - 12/05/2020 10:[address] Miramontes office to relay message from Dr. Funez that lantus would be a proper substitutionfor levemir for insurance purposes. Asked if this is just for backup as the patient is using an insulin pump or if the patient is currently using pens, and left our return number for the nurse to letus know. * Telephone Encounter - Janessa Piper RN - 12/05/2020 10:19 AM EDT Images from the original note were not included. Molly Funez, Janessa Li, RN Caller: Unspecified (Today, 9:17 AM) I think this patient is on a pump? So long acting is only for back up? Will you confirm? Lantus would be fine. If she is using injections we may need to do a little education but it seems this might only be back up? - thanks for checking on this - gk * Telephone Encounter - Janessa Piper RN - 12/05/2020 9:40 AM EDT Cristhian HUNTER for Nayla Miramontes called stating Dr. Miramontes wants to double check with endocrinology to see ifit is OK for patient to take a different long acting insulin as they received a letter stating the patients insurance will not cover levemir. Covered medications include lantus solostar and toujeo. Looking for a call back with guidance on insulin. Cristhian's phone number: [phone] ext [phone] documented in this encounter Plan of Treatment Upcoming Encounters Date Type Department Care Team (Late st Contact Info) Description 05/17/2024 2:30 PM EST Office [place] [phone] Alcides Bonilla MD [facility] [place] [address] 04/06/2049 9:00 AM EST Hospital Encounter [place] [phone] Harry Guerrero MD [facility] [place] [address] documented as of this encounter Visit Diagnoses Not on filedocumented in this encounter Care Teams Truss Driver Helper Relationship Specialty Start Date End Date Nayla Miramontes MD [address] [facility] [address] [place] [address] PCP - General 05/21/11 05/10/21 documented as of this encounter
--- OUTSIDE RECORDS SUMMARY | 2024-03-07 18:56 | XMS_ITS | Encounter Summary ---
Author Organization [facility] Address [facility] [place] [address] Care Team Providers Care Oil Refiner Name Role Phone Nayla Miramontes MD Primary Care Provider [phone] Reason for Visit * Auth/Cert (Routine) Specialty Diagnoses / Procedures Referred By Franklin laird Referred To Contact Diagnoses diarrhea and dyspepsia - needs pediatric colonoscope Procedures PRO UPPER GI ENDOSCOPY, DIAGNOSTIC PRO COLONOSCOPY, DIAGNOSTIC EGD, UPPER GI ENDOSCOPY (WRVU 2.09) COLONOSCOPY, DIAGNOSTIC (WRVU 3.26) Giuseppe Caban MD [facility] [place] [address] [facility] Referral ID Status Reason Start Date Expiration Date Visits Re quested Visits Authorized [id number] 1 1 Encounter Details Date Type Department Care Team (Latest Contact Info) Description 08/21/2022 9:46 AM EDT - 08/21/2022 2:14 PM EDT Hospital [place] [address] Kayley Spence MD [facility] [place] [place] [address] Discharge Disposition: Home Social History Tobacco Use Types Packs/Day Years [...] Sign Reading Time Taken Comments Blood Pressure 130/57 08/21/2022 12:30 PM EDT Pulse 71 08/21/2022 12:05 PM EDT Temperature 36.5 ??C (97.7 ??F) 08/21/2022 10:30 AM E DT Respiratory Rate 19 08/21/2022 12:30 PM EDT Oxygen Saturation 99% 08/21/2022 12:30 PM EDT Inhaled Oxygen Concentration - - [...] 590 mL 5 03/06/2017 Diabetic Supplies, Miscellan. [facility] DWO for Infusion sets faxed to [employer] each 12 02/01/2017 insulin glargine (LANTUS) SolutionIndications :type 1 diabetes mellitus Inject 10 Units subcutaneously 2 times daily. Needed for insulin pump failure Indications: type 1 diabetes mellitus 10 mL 01/23/2017 atorvastatin (LIPITOR) 40 mg Tablet Take 40 mg by mouth daily. 04/28/2016 celecoxib (CELEBREX) 100 mg Capsule Take 100 mg by mouth 2 times daily. 04/28/2016 Diabetic Supplies, Miscellan. [facility] Inject 1 each subcutaneously 4 times daily. Faxed pump and supply order to [employer] at [phone]. Dx Code: 250.01 100 each 12 12/21/2015 Diabetic Supplies, Miscellan. [facility] MNF [facility] 100 each 12 10/30/2015 bisacodyl (DULCOLAX) [...] H43.12 ??? PSC (posterior subcapsular cataract), bilateral [id number] ??? Type 1 diabetes mellitus E10.9 ??? [...] H43.11 ??? IDDM (insulin dependent diabetes mellitus) [id number] ??? Urinary incontinence R32 ??? Pseudophakia of [...] 2:30 PM EST Office [place] [address] Alcides Bonilla MD [facility] [place] [address] 04/06/2049 9:00 AM EST Hospital [place] [address] Harry Guerrero MD [facility] DR GASTROENTER[place] [address] documented as of this encounter Procedures Procedure Name Priority Date/Time Associated Diagnosis Comments POCT GLUCOSE Routine 08/21/2022 12:12 PM EDT SPECIMEN TO PATHOLOGY Routine 08/21/2022 12:06 PM EDT SPECIMEN TO PATHOLOGY Routine 08/21/2022 11:46 AM EDT SPECIMEN TO PATHOLOGY Routine 08/21/2022 11:42 AM EDT SURGICAL PATHOLOGY REPORT Routine 08/21/2022 11:40 AM EDT Colonoscopy, Biopsy ([id number]) 08/21/2022 11:27 AM EDT Irritable bowel syndrome with both constipation and diarrhea Functional dyspepsia Upper Gi Endoscopy, Biopsy ([id number]) 08/21/2022 11:27 AM EDT Irritable bowel syndrome with both constipation and diarrhea Functional dyspepsia POCT GLUCOSE Routine 08/21/2022 10:51 AM EDT POCT GLUCOSE Routine 08/21/2022 10:40 AM EDT documented in this encounter Results * POCT Glucose (08/21/2022 12:12 PM EDT) Glucose, POC 184 65 - 199 mg/dL [facility] Comment: Supplemental ranges: <140 mg/dL before meals <180 mg/dL all other times of the day Blood 08/21/2022 12:1 2 PM EDT 08/21/2022 12:12 PM EDT Kayley Spence MD POINT OF CARE TEST O RDERABLES [facility] [place] [address] * Specimen to Pathology (08/21/2022 12:06 PM EDT) AP Specimen 08/21/2022 12:0 6 PM EDT 08/21/2022 12:06 PM EDT Narrative [facility] - 08/21/2022 12:06 PM EDT Specimen requisition ordered. ??Separate Pathology report to follow Kayley Spence MD PATHOLOGY/CYTOLOGY O RDERABLES [facility] [place] [address] * Specimen to Pathology (08/21/2022 11:46 AM EDT) AP Specimen 08/21/2022 11:4 6 AM EDT 08/21/2022 11:46 AM EDT Narrative [facility] - 08/21/2022 11:46 AM EDT Specimen requisition ordered. ??Separate Pathology report to follow Kayley Spence MD PATHOLOGY/CYTOLOGY O JESSICA Performing Organization Address [facility] de Phone Number [facility] [place] [address] * Specimen to Pathology (08/21/2022 11:42 AM EDT) AP Specimen 08/21/2022 11:4 2 AM EDT 08/21/2022 11:42 AM EDT Narrative [facility] - 08/21/2022 11:42 AM EDT Specimen requisition ordered. ??Separate Pathology report to follow Kayley Spence MD PATHOLOGY/CYTOLOGY O JESSICA Performing Organization Address [facility] de Phone Number [facility] [place] [address] * Surgical Pathology Report (08/21/2022 11:40 AM EDT) Final Diagnosis [id number] ? Location: 4T; EA10; A The signing [...] follow up is ??recommended. Electronically signed by: ?Regulo Lindsay MD Verified: ??09/05/2022 9:38 ?? Pathologist Performed at: ??-[facility] Dept. of Pathology, [place] [address] Internal Medicine Veterinary Technician: Delbert Faye MD, FCAP, ??CLIA Certificate: [id number] SPECIMEN(S) SUBMITTED A - Gastric ??biopsies, biopsy [...] labeled C1-C2. ??jnr 09/05/2022 9:38 AM EDT [facility] GI Biopsy 08/21/2022 11:4 0 AM EDT 08/21/2022 11:40 AM EDT GI Biopsy 08/21/2022 11:4 0 AM EDT 08/21/2022 11:40 AM EDT GI Biopsy 08/21/2022 11:4 0 AM EDT 08/21/2022 11:40 AM EDT Kayley Spence MD PATHOLOGY/CYTOLOGY O RDERABLES Performing Organization Address City/[facility] Co de Phone Number [facility] [place] [address] [facility] [place] [address] * POCT Glucose (08/21/2022 10:51 AM EDT) Glucose, POC 99 65 - 199 mg/dL [facility] Comment: Supplemental ranges: <140 mg/dL before meals <180 mg/dL all other times of the day Blood 08/21/2022 10:5 1 AM EDT 08/21/2022 10:51 AM EDT Kayley Spence MD POINT OF CARE TEST O RDERABLES Performing Organization Address [facility] Co de Phone Number [facility] [place] [address] * (ABNORMAL) POCT Glucose (08/21/2022 10:40 AM EDT) Glucose, POC 59(L) 65 - 199 mg/dL [facility] Comment: Supplemental ranges: <140 mg/dL before meals <180 mg/dL all other times of the day Blood 08/21/2022 10:4 0 AM EDT 08/21/2022 10:40 AM EDT Kayley Spence MD POINT OF CARE TEST O RDERARADHA Performing Organization Address [facility] Co de Phone Number [facility] [place] [address] documented in this encounter Visit Diagnoses Not on filedocumented in this encounter Active and Recently Administered Medications Times are shown in EDT. PRN Medication Order 08/19/2022 08/20/2022 08/21/2022 benzocaine (Hurricane One) 20% spray (restricted to katherin-procedural use) (CANCELED) ONCE PRN, Starting on Cristina 08/21/22 at 1129, Until Cristina 08/21/22 at 1614, Intra-Operative (Intra-Procedure) 1129 (Given - Provid er: Marilee P Putorti, RN) fentaNYL (pf) (50 mcg/mL) multi-dose injection [...] Herbert RN)1134 (Given - Provider: Marilee Herbert RN)1138 (Given - Provider: Marilee Herbert RN)1148 (Given - Provider: Marilee Herbert RN - Comment: 1st colo dose)1154 (Given - Provider: Marilee Herbert RN)1200 (Given - Provider: Marilee Herbert RN) documented in this encounter Care Teams Oil Refiner Relationship Specialty Start Date End Date Nayla Miramontes MD [address] [place] [address] PCP - General Family Medicine 05/11/21 documented as of this encounter
--- OUTSIDE RECORDS SUMMARY | 2024-03-07 18:56 | XMS_ITS | Encounter Summary ---
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 HC TISSUE TRANSGLUTAMINASE AB Routine 08/01/2021 10:35 AM EDT Irritable bowel syndrome with both constipation and diarrhea T4, FREE Routine 08/01/2021 10:35 AM EDT HC POTASSIUM Routine 08/01/2021 10:35 AM EDT 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 HC HEMOGLOBIN A1C Routine 08/01/2021 10: 35 AM EDT 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 362 Albumin, Urine 15.8 mg/L [facility] Creatinine, Urine 42 mg/dL [facility] Urine 08/01/2021 10:3 7 AM EDT 08/01/2021 10:55 AM EDT Narrative Resulting Agency Comment Spec In Lab Ariel Hernandez MD URINE ORDERABLES [facility] [place] [address] * T4, free (08/01/2021 10:35 AM EDT) Free T4 1.52 0.93 - 1.70 ng/dL [facility] Comment: Reference Interval (ng/dL): Females: ??First Trimester: 0.97-1.68 ??Second Trimester: 0.77-1.51 ??Third Trimester: 0.77-1.49 Blood 08/01/2021 10:3 5 AM EDT 08/01/2021 11:10 AM EDT Narrative Resulting Agency Comment Spec In Lab Alcides Bonilla MD CHEMISTRY ORDERABLES [facility] [place] [address] * (ABNORMAL) TSH [place] (08/01/2021 10:35 AM EDT) Thyroid Stimulating Hormone 0.01(L) 0.27 - 4.20 mcIU/mL [facility] Comment: Reference Interval (mcIU/mL): Females: ??First Trimester: 0.23-3.88 ??Second Trimester: 0.22-3.90 ??Third Trimester: 0.44-4.66 Blood 08/01/2021 10:3 5 AM EDT 08/01/2021 10:53 AM EDT Narrative Resulting Agency Comment Spec In Lab Alcides Bonilla MD CHEMISTRY ORDERABLES Performing Organization Address City/[facility]/ZIP Co de Phone Number [facility] [place] [address] * IgA (08/01/2021 10:35 AM EDT) IgA 285 70 - 400 mg/dL [facility] Blood 08/01/2021 10:3 5 AM EDT 08/01/2021 10:53 AM EDT Narrative Resulting Agency Comment Spec In Lab Alcides Bonilla MD CHEMISTRY ORDERABLES Performing Organization Address City/[facility]/ZIP Co de Phone Number [facility] [place] [address] * IgG (08/01/2021 10:35 AM EDT) Immunoglobulin G 1,084 700 - 1,600 mg/dL [facility] Comment: Pediatric Reference Intervals obtained from the Caliper Reference Interval project. http://www.sickkids.ca/caliperproject/index.html Blood 08/01/2021 10:3 5 AM EDT 08/01/2021 10:53 AM EDT Narrative Resulting Agency Comment Spec In Lab Alcides Bonilla MD CHEMISTRY ORDERABLES Performing Organization Address City/[facility]/ZIP Co de Phone Number [facility] [place] [address] * Tissue transglutaminase, IgA (08/01/2021 10:35 AM EDT) TTG IgA Ab 0.8 0.1 - 10.0 u/ml [facility] Comment: Negative = <7 U/mL Equivocal = 7-10 U/mL Positive = >10 U/mL Blood 08/01/2021 10:3 5 AM EDT 08/01/2021 1:58 PM EDT Narrative Resulting Agency Comment Spec In Lab Alcides Bonilla MD IMMUNOLOGY ORDERABLE S [facility] [address] * (ABNORMAL) Hemoglobin A1c (08/01/2021 10:35 AM EDT) Pathologist [facility] Hemoglobin A1c 7.6(H) 4.3 - 5.6 % [facility] Comment: Reference Range: 4.3 - [...] Mellitus, Diabetes Care 2013; 36: Suppl. 1, S67-30 Estimated Average Glucose 171 mg/dL [facility] Comment: eAG equivalents for HbA1c [...] into estimated average glucose values. ??Diabetes Care 2008:31(8):2200-8764. Blood 08/01/2021 10:3 5 AM EDT 08/01/2021 10:53 AM EDT Narrative Resulting Agency Comment Spec In Lab Ariel Hernandez MD CHEMISTRY ORDERABLE S Performing Organization Address [facility] Co de Phone Number [facility] [address] * Potassium (08/01/2021 10:35 AM EDT) Potassium 4.2 3.5 - 5.0 mmol/L [facility] Comment: Please note: ??Patients with [...] MD CHEMISTRY ORDERABLE S Performing Organization Address [facility] Co de Phone Number [facility] [place] [address] * Creatinine (08/01/2021 10:35 AM EDT) Creatinine 0.73 0.70 - 1.20 mg/dL [facility] Est Glomerular Filtration Rate 86 >=60 mL/min/1. 73 m?? [facility] Comment: This patient? s estimated [...] Lab Ariel Hernandez MD CHEMISTRY ORDERABLE S [facility] [place] [address] * Lipid Panel (Reflex Direct LDL) (08/01/2021 10:35 AM EDT) Cholesterol, Total 220 mg/dL [facility] Comment: Lower Risk: <200 mg/dL Average Risk: 200-239 mg/dL Higher Risk: >lx=898 mg/dL Triglyceride 112 mg/dL [facility] Comment: Average Risk/Lower Risk: <150 mg/dL Borderline High Risk: 150-199 mg/dL High Risk: 200-499 mg/dL Very High Risk: >hd=365 mg/dL HDL Cholesterol 86 mg/dL [facility] Comment: Males: ?? Higher Risk: <40 mg/dL Females: ?? Higher Risk: <50 mg/dL LDL Cholesterol 112 mg/dL [facility] Comment: Lowest Risk: <100 mg/dL Lower Risk: 100-129 mg/dL Borderline High Risk: 130-159 mg/dL High Risk: 160-189 mg/dL Very High Risk: >ir=104 mg/dL Cholesterol/HDL Ratio 2.6 ratio [facility] Lipid Interpretation See Note [facility] Comment: Lipid management should be guided by a patient? s ASCVD risk, goals and preferences. ACC/AHA Guidelines recommend high intensity statin if clinical ASCVD or LDL greater than or equal to 190 mg/dL. 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
--- OUTSIDE RECORDS SUMMARY | 2024-03-07 18:56 | XMS_ITS | Encounter Summary ---
Author Organization [facility] Address [facility] [place] [address] Care Team Providers Care Hand Stonecutter Name Role Phone Nayla Miramontes MD Primary Care Provider [phone] Encounter Details Date Type Department Care Team (Latest Contact Info) Description 02/06/2020 9:05 AM EST Laboratory Appointment Lab [address] [place] [phone] Type 1 diabetes mellitus with retinopathy of [...] 2:30 PM EST Office [place] [address] [facility] [place] [address] 04/06/2049 9:00 AM EST Hospital [place] [address] [facility] [place] [address] documented as of this encounter Procedures Procedure Name Priority Date/Time Associated Diagnosis Comments HC CREATININE - NON BLOOD Routine 02/06/2020 9:33 AM EST Type 1 diabetes mellitus with retinopathy of both eyes without macular edema, unspecified retinopathy severity HC THYROID STIMULATING HORMONE, SERUM STAT 02/06/2020 9:33 AM EST Hypothyroidism, unspecified type HC LDL CHOLESTEROL, DIRECT STAT 02/06/2020 9:33 AM EST Type 1 diabetes mellitus with retinopathy of both eyes without macular edema, unspecified retinopathy severity HC HEMOGLOBIN A1C STAT 02/06/2020 9:3 3 AM EST Type 1 diabetes mellitus with retinopathy of both eyes without macular edema, unspecified retinopathy severity HC VENIPUNCTURE STAT 02/06/2020 9:33 AM EST Type 1 diabetes mellitus with retinopathy of both eyes without macular edema, unspecified retinopathy severity documented in this encounter Results * LDL Cholesterol, Direct (02/06/2020 9:33 AM EST) LDL Cholesterol, Direct 81 mg/dL [facility] Comment: Lowest Risk: <100 mg/dL Lower Risk: 100-129 mg/dL Borderline High Risk: 130-159 mg/dL High Risk: 160-189 mg/dL Very High Risk: >hr=034 mg/dL Blood specimen (specimen) 02/06/2020 9:33 AM EST 02/06/2020 9:38 AM EST Narrative Resulting Agency Comment Spec In Lab Gloria Pimentel MD CHEMISTRY ORDERABLES [facility] [place] [address] * TSH (02/06/2020 9:33 AM EST) Thyroid Stimulating Hormone 0.91 0.27 - 4.20 mcIU/mL [facility] Blood specimen (specimen) 02/06/2020 9:33 AM EST 02/06/2020 9:38 AM EST Narrative Resulting Agency Comment Spec In Lab Gloria Pimentel MD CHEMISTRY ORDERABLES [facility] [place] [address] * (ABNORMAL) Hemoglobin A1c (02/06/2020 9:33 AM EST) Hemoglobin A1c 8.7(H) 4.3 - 5.6 % [facility] Comment: Reference Range: 4.3 [...] Mellitus, Diabetes Care 2013; 36: Suppl. 1, S67-71 Estimated Average Glucose 204 mg/dL [facility] Comment: eAG equivalents for [...] into estimated average glucose values. ??Diabetes Care 2008:31(8):1748-6003. Blood specimen (specimen) 02/06/2020 9:33 AM EST 02/06/2020 9:38 AM EST Narrative Resulting Agency Comment Spec In Lab Gloria Pimentel MD CHEMISTRY ORDERABLES [facility] [place] [address] * (ABNORMAL) Basic Metabolic Panel (non-fasting) (02/06/2020 9:33 AM EST) Glucose 61(L) 65 - 199 mg/dL [facility] Comment:Diabetes: >=200 mg/d L plus symptoms Blood Urea Nitrogen 14 8 - 18 mg/dL [facility] Creatinine 1.14 0.70 - 1.20 mg/dL [facility] Sodium 142 135 - 145 mmol/L [facility] Potassium 4.1 3.5 - 5.0 mmol/L [facility] Comment: Please note: ??Patients with WBC >100,000 may have falsely elevated Potassium levels. ??For accurate Potassium quantification in these patients send serum separator tube (gold top) for subsequent determinations. ??Contact the Clinical Chemistry Laboratory if there are any questions. Chloride 104 98 - 107 mmol/L [facility] Carbon Dioxide 29 22 - 31 mmol/L [facility] Anion Gap 9 5 - 15 mmol/L [facility] Calcium 9.0 8.5 - 10.5 mg/dL [facility] Est Glomerular Filtration Rate 51(L) >=60 mL/min/1. 73 m?? [facility] Comment: The eGFR was calculated using the CKD-EPI equation. As with all creatinine based estimates of kidney function, eGFR values calculated with the CKD-EPI equation are not accurate in patients with acute kidney failure, extremes of body mass or the acutely ill. http://Go!Foton/DHnkf eGFR 59(L) >=60 mL/min/1. 73 m?? [facility] Comment: The eGFR was calculated using the CKD-EPI equation. As with all creatinine based estimates of kidney function, eGFR values calculated with the CKD-EPI equation are not accurate in patients with acute kidney failure, extremes of body mass or the acutely ill. http://Go!Foton/DHnkf Blood specimen (specimen) 02/06/2020 9:33 AM EST 02/06/2020 9:38 AM EST Narrative Resulting Agency Comment Spec In Lab Gloria Pimentel MD CHEMISTRY ORDERABLES [facility] [place] [address] * U Albumin/Cre Ratio (02/06/2020 9:33 AM EST) Albumin / Creatinin Ratio, Urine 4 0 - 29 mcg/mg Cr [facility] Comment: Reference Ranges: <30 mcg/mg: Normal [...] 2, 357? 362 Albumin, Urine 6.5 mg/L [facility] Creatinine, Urine 152 mg/dL [facility] Urine specimen (specimen) 02/06/2020 9:33 AM EST 02/06/2020 9:39 AM EST Narrative Resulting Agency Comment Spec In Lab Gloria Pimentel MD URINE ORDERABLES [facility] [place] [address] documented in this encounter Visit Diagnoses Diagnosis Type 1 diabetes mellitus with retinopathy of both eyes without macular edema, unspecified retinopathy severity Hypothyroidism, unspecified type documented in this encounter Care Teams Hand Stonecutter Relationship Specialty Start Date End Date Nayla Miramontes MD [facility] ANABELLA [address] [place] [address] PCP - General 05/21/11 05/10/21 documented as of this encounter
--- OUTSIDE RECORDS SUMMARY | 2024-03-07 18:56 | XMS_ITS | Encounter Summary ---
Author Organization Counts Include [facility] Address [facility] [place] [address] Care Team Providers Care Curb Setter Name Role Phone Nayla Miramontes MD Primary Care Provider [phone] Reason for Visit * Consultation (Routine) - Closed Specialty Diagnoses / Procedures Referred By Franklin laird Referred To Contact Gastroenterology Diagnoses Type 2 diabetes mellitus with diabetic autonomic (poly)neuropathy Hough's esophagus without dysplasia ,Motility- GERD /hough's esophagus w/o dysplasia -gastroparesis- Last EGD ws 2015 (saw Dr. Guerrero previously) Nayla Miramontes MD [facility] ANABELLA LÓPEZ [address] [address] [facility] [address] [place] [address] Referral ID Status Reason Start Date Expiration Date V isits Requested Visits Authorized [id number] Closed Consult, Test & Treat Connection Center PCP Updated and/or Approved 05/08/2021 11/05/2021 1 1 Encounter Details Date Type Department Care Team (Late st Contact Info) Description 08/01/2021 9:00 AM EDT Office [place] [address] Alcides Bonilla MD [facility] [place] [address] Irritable bowel syndrome with both constipation and diarrhea; Incontinence of feces, unspecified fecal incontinence type; Gastroparesis; Functional dyspepsia; Dysphagia, unspecified type; Gastroesophageal reflux disease, unspecified whether esophagitis present Social History Tobacco Use Types Packs/Day Years [...] Sign Reading Time Taken Comments Blood Pressure 169/94 08/01/2021 9:02 AM EDT Pulse 84 08/01/2021 9:02 AM EDT Temperature - - Respiratory Rate - - Oxygen Saturation - - Inhaled Oxygen Concentration - - Weight 88.9 kg (195 lb 14.4 oz) 08/01/2021 9:02 AM EDT Height 167.6 cm (5' 6) 08/01/2021 9:02 AM EDT Body Mass Index 31.62 08/01/2021 9:02 AM EDT documented in this encounter Progress Notes * Alcides Bonilla MD - 08/01/2021 9:00 AM EDT Chief Complaint: Roxann Baxter is a 65 y.o. patient referred for consultation by Dr. Miramontes for Hough's esophagus and gastroparesis. Referred for specialized motility evaluation. History of Present Illness: 65 y.o. female with past medical history of diabetes mellitus type 1 with known peripheral neuropathy and retinopathy depression with prior suicide attempt, migraine, lap toupee paraesophageal hernia repair May 2016, anxiety disorder, alcohol abuse in remission, hypertension insomnia, dyslipidemia, psoriatic arthritis, hypothyroidism, restless leg syndrome, gastric ulcer with perforation, , She has been followed by a variety of [facility] GI providers in the past. Last seen by Dr. Castanon in June 2018 History of diabetes mellitus type 1 diagnosed 49 years ago with history of poor glycemic control. Known peripheral neuropathy and retinopathy. She is followed by endocrinology (Dr. Hernandez). A1c's are still very elevated (usually above 9) -last A1c 9.07 Aug 2020 Her main concern is her gastroparesis and the challenges adjusting her insulin dosage due to unpredictable gastric emptying. Chronic dyspepsia symptoms with early satiety and post-prandial fullness. Symptoms pretty minimal and not progressive. Minimal bloating and upper abdominal pain. Rare nausea but no vomiting or dry heaves/retching. Chronic intermittent esophageal dysphagia for solids including transient obstruction sensation - worsened with fundoplication. Possibly slowly progressive. Typically a few times per week. No heartburn or regurgitation since fundoplication. Chronically altered bowel movements - predominantly diarrhea now. Prior constipation and prior alternating BM. Currently 4-6 loose bowel movements per day, associated urgency, generalized lower abdominal pain and bloating. Episodic urge incontinence and fecal leakage - 4x per week - she wears protective undergarments. No blood in stools or melena. Appetite stable and weight increasing over time by 25 lbs Rare NSAID usage She has had considerable GI evaluation in the past. Summary of testing as per Dr. Castanon's notes asfollows: 1. EGD 04/27/12: revealed a 5 cm hiatal hernia, food in the stomach, irregular Z-line at 33 cm. ??Hough's identified in biopsies; no dysplasia. 2. Small bowel follow-through 08/03/13: esophageal dilation; poor emptying of the esophagus; large hiatal hernia, otherwise normal. 3. Gastric emptying study 09/01/13: revealed that 50% remained at two hours, 17% remained at four hours. 4. Colonoscopy 09/23/13: poor preparation of the colon. 5. Colonoscopy 01/10/14: normal terminal ileum, no polyps, biopsies showed evidence of melanosis coli. ??Multiple large and small left-sided diverticula. 6. Barium [...] severe ineffective esophageal motility. 9. EGD 01/01/16: ??tortuous esophagus, normal duodenum. ??Biopsies did not show evidence of celiac disease. ??Approximately 8 cm hiatal hernia; severe esophagitis. ??Biopsies of GE junction showed inflammation but no evidence of Hough's. 10. Barium swallow 02/13/16: tortuous esophagus, no evidence of obstruction, large hiatal hernia without evidence of paraesophageal component. ??Some reflux noted. ??Thirteen-mm barium tablet passed easily into the stomach. 11. Colonoscopy 12/2017 - diverticulosis in the sigmoid colon, no source for iron deficiency Current Regimen: Buspirone 10 mg in a.m. and 5 mg in p.m. (for depression) Gabapentin for neuropathy Zofran prn Psyllium husk capsules 12 per day Imodium 2 mg OD Past Therapies: 1. Nexium -??helps reflux. 2. Zofran -??some help with nausea. 3. Tigan -??some help with nausea. 4. MiraLAX -??some help with constipation. 5. Amitiza -??helps constipation. 6. Linaclotide -??caused severe diarrhea. 7. Bethanechol -??no significant help with dysphagia.?? 8. Bisacodyl as needed 9. Mirtazapine for depression - weight gain 10. Meclizine 25 mg as needed Review of systems: 14-system ROS reviewed and negative except as above Medications: Outpatient Medications Prior to Visit Medication Sig Dispense Refill ??? desvenlafaxine succinate (PRISTIQ ORAL) Take 75 mg by mouth daily. ??? Symbicort 160-4.5 mcg/actuation HFA Aerosol Inhaler as needed. ??? levothyroxine (SYNTHROID) 175 mcg Tablet Take 175 mcg by mouth daily. ??? gabapentin (Neurontin) 300 mg Capsule TK 2 CS PO TID ??? busPIRone (BUSPAR) 5 mg Tablet Take 10 mg by mouth 3 times daily. ??? insulin lispro (HUMALOG) Solution Inject 65 Units subcutaneously continuous. Continuous Via insulin pump 60 mL 3 ??? melatonin 5 mg Tablet Take 5 mg by mouth nightly. ??? Diabetic Supplies, Miscellan. [facility] for Infusion sets faxed to [facility] 100 each 12 ??? atorvastatin (LIPITOR) 40 mg Tablet Take 40 mg by mouth daily. ??? Diabetic Supplies, Miscellan. [facility] Inject 1 each subcutaneously 4 times daily. Faxed pump and supply order to [employer] at [phone]. Dx Code: 250.01 100 each 12 ??? Diabetic Supplies, Miscellan. [facility] MNF faxed to [facility] 100 each 12 ??? ondansetron (ZOFRAN-ODT) 8 mg Tablet, Rapid Dissolve Take 1 tablet by mouth every 8 hours as needed for Nausea. 20 tablet 11 ??? lisinopril (PRINIVIL;ZESTRIL) 20 mg Tablet Take 1 tablet by mouth daily. 30 tablet ??? MULTI-VITAMIN ORAL Take 1 tablet by mouth daily. Reported on 05/26/2016 ??? trimethobenzamide (TIGAN) 300 mg Capsule Take by mouth 4 times daily as needed. ??? mirtazapine (Remeron) 15 mg Tablet 45 mg nightly. ??? Adalimumab (HUMIRA PEN) 40 mg/0.8 mL Pen Injector Kit Inject 0.8 mLs subcutaneously every 14 days. (Patient not taking: Reported on 08/01/2021) 3 kit 3 ??? magnesium citrate Solution Take 295 mLs by mouth 2 times daily as needed. (Patient not taking: No sig reported) 590 mL 5 ??? sodium phosphates (FLEET) Enema Place 1 Bottle rectally once as needed for Constipation for up to 1 dose. (Patient not taking: No sig reported) 135 mL 3 ??? insulin glargine (LANTUS) Solution Inject 10 Units subcutaneously 2 times daily. Needed for insulin pump failure Indications: type 1 diabetes mellitus (Patient not taking: No sig reported) 10 mL 0 ??? celecoxib (CELEBREX) 100 mg Capsule Take 100 mg by mouth 2 times daily. ??? nefazodone (SERZONE) 100 mg Tablet Take 1 tablet by mouth 2 times daily. (Patient not taking: No sig reported) 30 tablet 0 ??? bisacodyl (DULCOLAX) [address] 1 suppository rectally daily. (Patient not taking:No sig reported) 60 suppository 3 No facility-administered medications prior to visit. Allergies: is allergic to codeine phosphate and propoxyphene n-acetaminophen. Past Medical History: has a past medical history of Anxiety, Arthritis, Asthma, Cortical cataract (05/05/2011), Diabetes mellitus, GERD (gastroesophageal reflux disease), Hyperlipidemia, Hypertension,PDR (proliferative diabetic retinopathy) (05/25/2011), Skin disease, and Thyroid disease. Past Surgical History: has a past surgical history that includes Upper Gi Endoscopy, Exam (27947) (04/25/2011); Upper Gi Endoscopy, Biopsy (40266) (04/27/2012); retinal laser surgery; Vitrectomy, FocalLaser Rx Retina (54900) (05/16/2013); Finger surgery; Colonoscopy, Diagnostic (60078) (09/13/2013); Co lonoscopy, Diagnostic (35162) (01/10/2014); Upper GI Endoscopy, Diagnostic (20095) (N/A, 04/24/2014);Cataract removal (Left, 09/26/2014); Cataract removal (01/17/2015); Upper Gi Endoscopy, Biopsy (87140) (N/A, 01/01/2016); Laparscopy Repair Paraesophageal Hernia Incl Fundoplasty W/O Mesh (63245) (N/A,05/08/2016); and Colonoscopy, Diagnostic (83312) (N/A, 01/01/2018). Family History: family history includes Alcohol Use Disorder in her brother, father, and sister; Anxiety Disorder in her sister; Dementia in her father; Depression in her father and sister; Mental Illness in her father and sister. denies family history of colon cancer, IBD, or celiac disease in mother father or other family members Social History: reports that she quit smoking about 37 years ago. Her smoking use included cigarettes. She has never used smokeless tobacco. She reports that she does not drink alcohol and does not use drugs. Physical Exam: VITAL SIGNS: BP (!) 169/94 (BP Location (NBP): Left arm, Patient Position: Sitting, BP Cuff Sizes: Adult (25-34 cm)) Pulse 84 Ht 167.6 cm (5' 6) Wt 88.9 kg (195 lb 14.4 oz) LMP (LMP Unknown) BMI 31.62 kg/m?? BMI: Body mass index is 31.62 kg/m??. Gen: nad, normal body habitus Eyes: no scleral icterus CV: rrr, no m/r/g, radial pulse 2+, no pedal edema Pulm: ctab, normal respiratory effort GI: soft without masses, nontender, nondistended, normoactive bowel sounds, no hernias Skin: warm, dry, no rashes, no induration Neurologic: intact to light touch Psych: appropriate affect, a+ox3 Questionnaire: GI New Clinic Responses 08/01/2021 In general, health is: Poor Physical health 14 Mental health 20 Poor physical and mental health kept from usual activities 14 CDC Healthy Day Score 30 FBDSI Score 106 (Moderate illness) Days absent from work 3 Days worked shorter hours 3 Days less productive No Typical hours scheduled to work 40 Hours worked per week 40 IBS Severity Score 130 (Mild IBS) VSI Score 65 (Within normal range) GAD7 Total Score 7 (Mild Anxiety) PHQ-9 Total Score 16 (Moderately Severe Depression) Minutes to fall asleep 60 # of hours of sleep per night 6 BRIDGETTE Score 13 (Subthreshold insomnia) Overall relief from GI symptoms No Laboratory studies, imaging, and procedures (my review of prior records): See above Assessment/Plan: Ms. Baxter is a 65 y.o. patient with past medical history of diabetes mellitus type 1 with known peripheral neuropathy and retinopathy depression with prior suicide attempt, migraine, lap toupee paraesophageal hernia repair May 2016, anxiety disorder, alcohol abuse in remission, hypertension insomnia, dyslipidemia psoriatic arthritis, hypothyroidism, restless leg syndrome, gastric ulcer withperforation, Her GI issues are as follows: #Chronic heartburn and regurgitation consistent with GERD. Controlled since fundoplication #Chronic esophageal dysphagia -unclear if this is due to structural cause such as stricture versus esophageal motility disorder. Fundoplication likely contributing but was present prior to surgery. Possible element of diabetic autonomic neuropathy contributing. #Chronic dyspepsia symptoms consistent with functional dyspepsia postprandial distress subtype (PDS). Documented element of delayed gastric emptying on GES in 2013. Likely element of diabetic autonomic neuropathy contributing. Ongoing suboptimal glycemic control but appreciate difficulties adjusting insulin with variable gastric emptying. No weight loss. #Chronic altered bowel pattern with associated abdominal discomfort and bloating consistent with IBS - historically constipation predominant (IBS-C) but diarrhea predominant (IBS-D) for at least last3 years. Associated incontinence - urge and fecal leakage. Likely element of diabetic autonomic neuropathy contributing. Possible SIBO. Note that last colonoscopy preceded diarrhea and no random biops ies taken at that time. We should rule out microscopic colitis. No recent celiac testing. Recommendations: We discussed GI functional/motility disorders in depth today including pathophysiology, expected course, impact and treatment categories We also discussed realistic goals (with emphasis on improved quality of life) and patient responsibilities. Please see the patient handout for recommendations on general treatment measures including lifestyle, dietary, and non-prescription pharmacologic options. We discussed diabetic gastroparesis/diabetic autonomic neuropathy including pathogenesis, prognosis, and lifestyle, dietary and pharmacologic treatment options. I emphasized the importance of glycemic control. Continue to work with endocrinology for glycemic control. I will arrange a comprehensive evaluation of the structure and function of the patient's GI tract including the following investigations +/- referrals: EGD and Colonoscopy with esophageal, gastric, duodenal, and colonic biopsies Bloodwork - anti-TTG, TSH Stool studies - O+P, C.difficile, fecal elastase Esophageal high resolution manometry Anorectal manometry Hydrogen breath test GES I will arrange a follow-up appointment with motility DIRECT SALES CONSULTANT after the above investigations to review the results and consolidate the diagnosis. Please note that generally specific treatment recommendations will not be discussed at that time. An additional follow-up appointment with a motility DIRECT SALES CONSULTANT will be scheduled after this appointment to discuss specific recommendations for management. Patients should continue to work on general measures provided in our handout while awaiting this appointment. We also discussed the consultative nature of the [facility] GI motility program. The patient should continue to work with their PCP +/- local GI as the primary point(s) of contact for urgent issues, medication refills and adjustments as needed for continuity of care purposes in between visits to ourcenter based on the recommendations above. Recommend PCP to refer to local GI if patient does not have a local GI currently. Yearly or bi-yearly visits with a member of the motility team may be available for co-management purposes depending upon the specific circumstances of the patient's medical condition. Alcides Bonilla MD [facility] [place] [address] documented in this encounter Plan of Treatment Upcoming Encounters Date Type Department Care Team (Late st Contact Info) Description 05/17/2024 2:30 PM EST Office [place] [address] Alcides Bonilla MD [facility] [place] [address] 04/06/2049 9:00 AM EST Hospital [place] [address] Harry Guerrero MD [facility] [address] [place] [address] Scheduled Orders Name Type Priority Associated Diagnoses Orde r Schedule ENDOSCOPY CASE REQUEST: EGD, UPPER GI ENDOSCOPY, COLONOSCOPY, DIAGNOSTIC Procedures Routine Irritable bowel syndrome with both constipation and diarrhea Functional dyspepsia Ordered: 08/01/2021 documented as of this encounter Results * Tissue transglutaminase, IgA (08/01/2021 10:35 AM EDT) [facility] TTG IgA Ab 0.8 0.1 - 10.0 u/ml [facility] Comment: Negative = <7 U/mL Equivocal = 7-10 U/mL Positive = >10 U/mL Blood 08/01/2021 10:3 5 AM EDT 08/01/2021 1:58 PM EDT Narrative Resulting Agency Comment Spec In Lab Alcides Bonilla MD IMMUNOLOGY ORDERABLE S [facility] [place] [address] * IgG (08/01/2021 10:35 AM EDT) [facility] Immunoglobulin G 1,084 700 - 1,600 mg/dL [facility] Comment: Pediatric Reference Intervals obtained from the Caliper Reference Interval project. http://www.sickkids.ca/caliperproject/index.html Blood 08/01/2021 10:3 5 AM EDT 08/01/2021 10:53 AM EDT Narrative Resulting Agency Comment Spec In Lab Alcides Bonilla MD CHEMISTRY ORDERABLES [facility] [place] [address] * IgA (08/01/2021 10:35 AM EDT) IgA 285 70 - 400 mg/dL [facility] Blood 08/01/2021 10:3 5 AM EDT 08/01/2021 10:53 AM EDT Narrative Resulting Agency Comment Spec In Lab Alcides Bonilla MD CHEMISTRY ORDERABLES Performing Organization Address [facility] Co de Phone Number [facility] [place] [address] * (ABNORMAL) TSH [place] (08/01/2021 10:35 AM EDT) Thyroid Stimulating Hormone 0.01(L) 0.27 - 4.20 mcIU/mL [facility] Comment: Reference Interval (mcIU/mL): Females: ??First Trimester: 0.23-3.88 ??Second Trimester: 0.22-3.90 ??Third Trimester: 0.44-4.66 Blood 08/01/2021 10:3 5 AM EDT 08/01/2021 10:53 AM EDT Narrative Resulting Agency Comment Spec In Lab Alcides Bonilla MD CHEMISTRY ORDERABLES Performing Organization Address [facility] Co de Phone Number [facility] [place] [address] documented in this encounter Visit Diagnoses Diagnosis Irritable bowel syndrome with both constipation and diarrhea Incontinence of feces, unspecified fecal incontinence type Gastroparesis Functional dyspepsia Dyspepsia and other specified disorders of function of stomach Dysphagia, unspecified type Gastroesophageal reflux disease, unspecified whether esophagitis present documented in this encounter Care Teams Curb Setter Relationship Specialty Start Date End Date Nayla Miramontes MD [address] [place] [address] PCP - General Family Medicine 05/11/21 documented as of this encounter
--- OUTSIDE RECORDS SUMMARY | 2024-03-07 18:56 | XMS_ITS | Encounter Summary ---
Author Organization [facility] [place] [address] Care Team Providers Care Contract Implementation Analyst Name Role Phone Nayla Miramontes MD Primary Care Provider [phone] Encounter Details Date Type Department Care Team (Late st Contact Info) Description 09/04/2022 Telephone [place] [phone] Nick Ayoub RN Social History Tobacco Use Types Packs/Day [...] encounter Miscellaneous Notes * Telephone Encounter - Nick Ayoub RN - 09/04/2022 4:32 PM EDT Notified by principal secretary, Nadiya, that patient was in the line returning this writers call. Discussed below with patient who is agreeable. Patient states that she would want to have the Pelvic Floor PT done in [facility], patient will call that office to make sure that they have a Pelvic senior design engineering specialist and will then call our office or send a [employer] message with the name of the office that she would like us to send the referral to. * Telephone Encounter - Nick Ayoub RN - 09/04/2022 2:08 PM EDT Call made to patient after receiving below message from Dr. Bonilla. Was unable to reach patient viaphone, left a generic message asking patient to return call to the office. Alcides Bonilla MD sent to [facility] Gastro Motility Progress Clerk; [facility] Gastro Motility Nurse This patient had abnormalities on their recent anorectal manometry testing but does not have scheduled follow-up with me in the near future Can we please touch base with them to see if they would be interested in a referral to pelvic floorphysiotherapy and if so where would they prefer? I can put the referral in for them. Can we arrange routine follow-up with me too? Thank you Alcides documented in this encounter Plan of Treatment Upcoming Encounters Date Type Department Care Team (Late st Contact Info) Description 05/17/2024 2:30 PM EST Office [place] [address] Alcides Bonilla MD [facility] [place] [address] 04/06/2049 9:00 AM EST Hospital En[place] [address] Harry Guerrero MD [facility] [place] [address] documented as of this encounter Visit Diagnoses Not on filedocumented in this encounter Care Teams Contract Implementation Analyst Relationship Specialty Start Date End Date Nayla Miramontes MD [address] [place] [address] PCP - General Family Medicine 05/11/21 documented as of this encounter
--- OUTSIDE RECORDS SUMMARY | 2024-03-07 18:57 | XMS_ITS | Encounter Summary ---
Author Organization [facility] Address [facility] [place] [address] Care Team Providers Care Sales Hunter Name Role Phone Nayla Miramontes MD Primary Care Provider [phone] Reason for Visit * Reason Onset Date Comments Medication Refill 01/30/2017 Encounter Details Date Type Department Care Team (Late st Contact Info) Description 01/30/2017 [place] [phone] Alyssa Brown LNA Social History Tobacco Use Types Packs/Day Years [...] 2:30 PM EST Office [place] [address] Alcides Bonilla MD [facility] [place] [address] 04/06/2049 9:00 AM EST Hospital [place] [address] Harry Guerrero MD [facility] [place] [address] documented as of this encounter Visit Diagnoses Not on filedocumented in this encounter Care Teams Sales Hunter Relationship Specialty Start Date End Date Nayla Miramontes MD [facility] ANABELLA LÓPEZ [facility] [address] [place] [address] PCP - General 05/21/11 05/10/21 documented as of this encounter
--- OUTSIDE RECORDS SUMMARY | 2024-03-07 18:57 | XMS_ITS | Encounter Summary ---
Author Organization Formerly [facility] [place] [address] Care Team Providers Care Mender Hand Name Role Phone Nayla Miramontes MD Primary Care Provider [phone] Encounter Details Date Type Department Care Team (Late st Contact Info) Description 10/13/2016 Telephone [place] [address] Gloria Pimentel MD [facility] [place] [address] Social History Tobacco Use Types Packs/Day Years [...] encounter Miscellaneous Notes * Telephone Encounter - Gloria Pimentel MD - 10/13/2016 12:25 PM EDT Contacted by Dr. Maloney from outside hospital regarding pt having presented with BG in the 400s this AM and mild DKA. She was treated with an insulin gtt for a few hours, and BG down to 98, now off gtt, but has + serum ketones and Ag in 16. Dr. Maloney wondered if she needs to be admitted considering how good she looks and pH WNL at 7.3. I advised that considering that she still has an AG and +seru m ketones, admitting her for additional treatment on the insulin gtt until the AG closes would be the safest course of action, as she does not appear to be out of DKA at present and it could worsen. He will proceed with admitting the patient. GLORIA PIMENTEL MD Geriatric Case Managerinsulation foreman Section of Endocrinology [facility] [place] documented in this encounter Plan of Treatment Upcoming Encounters Date Type Department Care Team (Late st Contact Info) Description 05/17/2024 2:30 PM EST Office [place] [address] Alcides Bonilla MD [facility] [place] [address] 04/06/2049 9:00 AM EST Hospital [place]counter [place] [address] Harry Guerrero MD [facility] [place] [address] documented as of this encounter Visit Diagnoses Not on filedocumented in this encounter Care Teams Mender Hand Relationship Specialty Start Date End Date Nayla Miramontes MD [facility] [address] [place] [address] PCP - General 05/21/11 05/10/21 documented as of this encounter
--- OUTSIDE RECORDS SUMMARY | 2024-03-07 18:57 | XMS_ITS | Encounter Summary ---
Author Organization [facility] Address [facility] [place] [address] Care Team Providers Care Advanced Solutions Architect Name Role Phone Nayla Miramontes MD Primary Care Provider [phone] Reason for Visit * Reason Comments Arthritis Encounter Details Date Type Department Care Team (Latest Contact Info) Description 05/12/2018 12:30 PM EST Office [place] [address] Luis Haywood MD [facility] [place] [address] Chronic pain of both shoulders; Osteoarthritis, unspecified osteoarthritis type, unspecified site; Pain in both hands; Morning joint stiffness; Chronic pain of both knees; Psoriatic arthritis.currently on Hydroxychloroquine. No signs of hydroxychloroquine retinopathy. Recommend close followup.; Psoriasis; Chronic bilateral low back pain without sciatica; Bilateral hip pain; Ankylosing spondylitis of multiple sites in spine Social History Tobacco Use Types Packs/Day Years [...] Sign Reading Time Taken Comments Blood Pressure 140/62 05/12/2018 12:03 PM EST Pulse 83 05/12/2018 12:03 PM EST Temperature 37.4 ??C (99.4 ??F) 05/12/2018 12:[address] Respiratory Rate - - Oxygen Saturation 97% 05/12/2018 12:03 PM EST Inhaled Oxygen Concentration - - Weight 83.9 kg (185 lb) 05/12/2018 12:03 PM EST Height 167.6 cm (5' 6) 05/12/2018 12:03 PM EST Body Mass Index 29.86 05/12/2018 12:03 PM EST documented in this encounter Progress Notes * Luis Haywood MD - 05/12/2018 12:30 PM EST Rheumatology Follow-Up Note Rheumatology History: ?? Ps and PsA ?? She had elevated blood sugar from steroids ?? She is taking just tylenol 1000 at night and celebrex ?? Last on humara 18 months ago ?? She has been of mtx will ing to try Interval History: Roxann Baxter is a 62 y.o. female who presents today for evaluation of PsA. Reports bilateral shoulder pain worse on the right > left. Possible swelling warmth, worse at night when laying on the side. It wakes her up in the middle of the night. She had injections of th left shoulder int he past that cause demarcus Blood sugar to rise and had to be admitted. She has bilateral knee pain daily. Chronic lower back pain that does not wakes her up at night, worsens through out the day, no red flags and does not alternate side. She has been referred to PT but has not gone yet. Recentchange in her right pinky duputyne like contracture. No other swollen, red or warm joint She is on gabapentin 4tabs Qpm Pm and 2 tabs AM and lunch. She tylenol as needed with Celebrex daily Denies , fatigue, fever, weight loss, Achilles tendonitis, plantar fasciitis, diffuse tendonitis, hip pain, chest wall pain and eye pain and gi symptoms ROS: General (-)fevers, (-)chills, (-)night sweats, (-)wt loss/gain. HEENT (-)head trauma, (-)vision change, (-)tinnitus, (-)epistaxis, (-)sore throat, (-)bleeding gums, (-)oral ulcers, (-)dry eyes, (-)dry mouth, (- )dysphagia, (-)GERD, (-)photo sensitivity, (-)Hair loss, (-)vertigo CVS (-)chest pain, (-)palpitations, (-)pedal edema, (-)PND, (-)orthopnea. Pulm (-)shortness of breath, (-)ARAMBULA, (-)wheezes, (-)cough, (-)pleuritic pain GI (-)N/V, (-)abdominal pain, (-)emesis, (-)hematemesis, (-)hematochezia, (- )change in appetite (-)hematuria, (-)dysuria, (-)frequency, (-)nocturia, (-)genital ulcers MS (-)muscle weakness, (-)paralysis, (-)joint pain, (-)hx of arthritis Endo (-)thyroid disorders, (-)diabetes, (-)temperature intolerance. Neuro (-)focal weakness, (-)paresthesias, (-)gait instability. Skin (-)Raynaud's, ulcers Psych (-) mood disorder. Past Medical History: Diagnosis Date ??? Anxiety ??? Arthritis ??? Asthma ??? Cortical cataract 05/05/2011 ??? Diabetes mellitus ??? GERD (gastroesophageal reflux disease) ??? Hyperlipidemia ??? Hypertension ??? PDR (proliferative diabetic retinopathy) 05/25/2011 ??? Skin disease ??? Thyroid disease Patient Active Problem List Diagnosis Date Noted ??? Chronic pain of both knees 05/12/2018 ??? Pain in both hands 05/12/2018 ??? Osteoarthritis 05/12/2018 ??? Chronic pain of both shoulders 05/12/2018 ??? Morning joint stiffness 05/12/2018 ??? Bilateral hip pain 05/12/2018 ??? Fecal incontinence 03/09/2017 ??? Morbid obesity 05/08/2016 ??? MDD (major depressive disorder), recurrent episode, moderate 02/11/2016 ??? Presence of insulin pump 11/08/2015 ??? Pseudophakia of both eyes (OD - 10/17/14, OS - 09/26/14) 11/01/2014 ??? Urinary incontinence 08/22/2014 ??? Diabetic retinopathy 05/19/2014 ??? Vitreous hemorrhage of right eye 05/19/2014 ??? IDDM (insulin dependent diabetes mellitus) 05/19/2014 ??? Dysphagia 07/25/2013 ??? Chronic constipation 07/25/2013 ??? PDR (proliferative diabetic retinopathy) 07/25/2013 ??? Scoliosis 08/13/2012 ??? Chronic bilateral low back pain without sciatica 08/13/2012 ??? Seborrheic keratosis 05/03/2012 ??? Solar lentigo 05/03/2012 ??? Xerosis cutis 05/03/2012 ??? Pruritus 05/03/2012 ??? Nuclear sclerosis 04/13/2012 ??? Proliferative diabetic retinopathy of both eyes.-mild resolving bilateral vitreous hemorrhages.No traction. Good PRP. 04/13/2012 ??? Psoriatic arthritis.currently on Hydroxychloroquine. No signs of hydroxychloroquine retinopathy. Recommend close followup. 04/13/2012 ??? PDR (proliferative diabetic retinopathy) 05/25/2011 ??? Cortical cataract 05/05/2011 ??? Retinal neovascularization of right eye 05/05/2011 ??? Vitreous hemorrhage of left eye 05/05/2011 ??? PSC (posterior subcapsular cataract), bilateral 05/05/2011 ??? Type 1 diabetes mellitus 05/05/2011 ??? Reflux esophagitis 04/26/2011 ??? Gastritis 04/26/2011 ??? Anasarca 04/26/2011 ??? DKA (diabetic ketoacidoses) 04/20/2011 ??? Hypertension 03/08/2011 ??? Hyperlipidemia 03/08/2011 ??? Hypothyroidism 03/08/2011 ??? Psoriasis 03/08/2011 ??? Depression 03/08/2011 ??? Iron deficiency 03/08/2011 ??? Asthma 03/08/2011 ??? Microcytic anemia 03/08/2011 ??? GERD (gastroesophageal reflux disease) 03/08/2011 ??? Giron's esophagus 03/08/2011 ??? Diabetic retinopathy associated with type 1 diabetes mellitus 03/08/2011 ??? Diabetes mellitus Past Surgical History: Procedure Laterality Date ??? CATARACT REMOVAL Left 09/26/2014 Dr Villalba ??? CATARACT REMOVAL 01/17/2015 OD - Dr Villalba ??? FINGER SURGERY ??? PRO COLONOSCOPY, DIAGNOSTIC 09/13/2013 COLONOSCOPY, DIAGNOSTIC performed by Marie Zamora MD at [facility] ENDOSCOPY ??? PRO COLONOSCOPY, DIAGNOSTIC 01/10/2014 COLONOSCOPY, DIAGNOSTIC performed by Marie Zamora MD at [facility] ENDOSCOPY ??? PRO COLONOSCOPY, DIAGNOSTIC N/A 01/01/2018 COLONOSCOPY, DIAGNOSTIC performed by Anastasiia Castanon MD at [facility] ENDOSCOPY ??? PRO LAPAROSCOPY, SURG, REPAIR PARAESOPHAGEAL HERNIA, W/O IMPLANTATION OF MESH N/A 05/08/2016 LAPAROSCOPIC PARAESOPHAGEAL HERNIA REPAIR W/FUNDOPLASTY, W/O MESH (WRVU 26.6) performed by Sonja Chavez MD at [facility] MAIN OR ??? PRO UPPER GI ENDOSCOPY, BIOPSY 04/27/2012 UPPER GASTROINTESTINAL ENDOSCOPY,WITH BIOPSY SINGLE OR MULTIPLE performed by Luis Bucio MD formerly [facility] ENDOSCOPY ??? PRO UPPER GI ENDOSCOPY, BIOPSY N/A 01/01/2016 EGD WITH BIOPSY performed by Giuseppe Caban MD at [facility] ENDOSCOPY ??? PRO UPPER GI ENDOSCOPY, DIAGNOSTIC N/A 04/24/2014 EGD, UPPER GI ENDOSCOPY performed by Harry Guerrero MD at [facility] ENDOSCOPY ??? PRO VITRECTOMY,FOCAL LASER RX RETINA 05/16/2013 OS VITRECTOMY, PARS PLANA, LASER performed by Dany Young MD at [facility] MAIN OR ??? RETINAL LASER SURGERY ??? UPPER GI ENDOSCOPY, EXAM 04/25/2011 UPPER GI ENDOSCOPY performed by MARIA DEL CARMEN BOB at [facility] ENDOSCOPY Family History Problem Relation Age of Onset [...] Neg Hx ??? Colorectal Cancer Neg Hx Social History Socioeconomic History ??? Marital status: Spouse name: None ??? Number of children: None ??? Years of education: None ??? Highest education level: None Social Needs ??? Financial resource strain: None ??? Food insecurity - worry: None ??? Food insecurity - inability: None ??? Transportation needs - medical: None ??? Transportation needs - non-medical: None Occupational History ??? None Tobacco Use ??? Smoking status: Former Smoker Types: Cigarettes Last attempt to quit: 05/06/1984 Years since quittin.0 ??? Smokeless tobacco: Never Used Substance and Sexual Activity ??? Alcohol use: No Comment: once a year ??? Drug use: No ??? Sexual activity: Not Currently Partners: Male control/protection: Abstinence Other Topics Concern ??? Do You live alone? Not Asked ??? Tobacco in Home Not Asked Social History Narrative ??? None Current Outpatient Medications Medication Sig Dispense Refill ??? levothyroxine (SYNTHROID) 150 mcg Tablet Take 150 mcg by mouth daily. ??? insulin lispro (HUMALOG) Solution Inject 65 Units subcutaneously continuous. Continuous Via insulin pump 60 mL 3 ??? melatonin 5 mg Tablet Take 15 mg by mouth nightly. ??? sodium phosphates (FLEET) Enema Place 1 Bottle rectally once as needed for Constipation for up to 1 dose. 135 mL 3 ??? Diabetic Supplies, [facility] [place] sets faxed to [employer] 100 each 12 ??? atorvastatin (LIPITOR) 40 mg Tablet Take 40 mg by mouth daily. ??? nefazodone (SERZONE) 100 mg Tablet Take 1 tablet by mouth 2 times daily. (Patient taking differently: Take 250 mg by mouth 2 times daily.) 30 tablet 0 ??? Diabetic Supplies, [facility] [place]ject 1 each subcutaneously 4 times daily. Faxed pump and supply order to [employer] at [phone]. Dx Code: 250.01 100 each 12 ??? Diabetic Supplies, Miscellan. [facility] faxed to [facility] 100 each 12 ??? bisacodyl (DULCOLAX) [address] 1 suppository rectally daily. (Patient taking differently: Place 10 mg rectally as needed.) 60 suppository 3 ??? ondansetron (ZOFRAN-ODT) 8 mg Tablet, Rapid Dissolve Take 1 tablet by mouth every 8 hours as needed for Nausea. 20 tablet 11 ??? lisinopril (PRINIVIL;ZESTRIL) 20 mg Tablet Take 1 tablet by mouth daily. 30 tablet ??? MULTI-VITAMIN ORAL Take 1 tablet by mouth daily. Reported on 05/26/2016 ??? Adalimumab (HUMIRA PEN) 40 mg/0.8 mL Pen Injector Kit Inject 0.8 mLs subcutaneously every 14 days. (Patient not taking: Reported on 05/12/2018) 6 kit 3 ??? magnesium citrate Solution Take 295 mLs by mouth 2 times daily as needed. (Patient not taking: Reported on 05/12/2018) 590 mL 5 ??? insulin glargine (LANTUS) Solution Inject 10 Units subcutaneously 2 times daily. Needed for insulin pump failure Indications: type 1 diabetes mellitus (Patient not taking: Reported on 05/12/2018) 10 mL 0 ??? celecoxib (CELEBREX) 100 mg Capsule Take 100 mg by mouth 2 times daily. No current facility-administered medications for this visit. Current Outpatient Medications on File Prior to Visit Medication Sig Dispense Refill ??? levothyroxine (SYNTHROID) 150 mcg Tablet Take 150 mcg by mouth daily. ??? insulin lispro (HUMALOG) Solution Inject 65 Units subcutaneously continuous. Continuous Via insulin pump 60 mL 3 ??? melatonin 5 mg Tablet Take 15 mg by mouth nightly. ??? sodium phosphates (FLEET) Enema Place 1 Bottle rectally once as needed for Constipation for up to 1 dose. 135 mL 3 ??? Diabetic Supplies, [facility] [place]fusion sets faxed to [employer] 100 each 12 ??? atorvastatin (LIPITOR) 40 mg Tablet Take 40 mg by mouth daily. ??? nefazodone (SERZONE) 100 mg Tablet Take 1 tablet by mouth 2 times daily. (Patient taking differently: Take 250 mg by mouth 2 times daily.) 30 tablet 0 ??? Diabetic Supplies, [facility] [place]ject 1 each subcutaneously 4 times daily. Faxed pump and supply order to [employer] at [phone]. Dx Code: 250.01 100 each 12 ??? Diabetic Supplies, [facility]. [facility] faxed to [facility] 100 each 12 ??? bisacodyl (DULCOLAX) [address] 1 suppository rectally daily. (Patient taking differently: Place 10 mg rectally as needed.) 60 suppository 3 ??? ondansetron (ZOFRAN-ODT) 8 mg Tablet, Rapid Dissolve Take 1 tablet by mouth every 8 hours as needed for Nausea. 20 tablet 11 ??? lisinopril (PRINIVIL;ZESTRIL) 20 mg Tablet Take 1 tablet by mouth daily. 30 tablet ??? MULTI-VITAMIN ORAL Take 1 tablet by mouth daily. Reported on 05/26/2016 ??? Adalimumab (HUMIRA PEN) 40 mg/0.8 mL Pen Injector Kit Inject 0.8 mLs subcutaneously every 14 days. (Patient not taking: Reported on 05/12/2018) 6 kit 3 ??? magnesium citrate Solution Take 295 mLs by mouth 2 times daily as needed. (Patient not taking: Reported on 05/12/2018) 590 mL 5 ??? [DISCONTINUED] busPIRone (BUSPAR) 10 mg Tablet Take 10 mg by mouth 2 times daily. ??? insulin glargine (LANTUS) Solution Inject 10 Units subcutaneously 2 times daily. Needed for insulin pump failure Indications: type 1 diabetes mellitus (Patient not taking: Reported on 05/12/2018) 10 mL 0 ??? celecoxib (CELEBREX) 100 mg Capsule Take 100 mg by mouth 2 times daily. ??? [DISCONTINUED] levothyroxine (SYNTHROID) 175 mcg Tablet Take 150 mcg by mouth daily. ??? [DISCONTINUED] polyethylene glycol (MIRALAX) 17 gram/dose Powder Take 34 g by mouth 2 times daily. (Patient not taking: Reported on 05/12/2018) 255 g 3 No current facility-administered medications on file prior to visit. Allergies Allergen Reactions ??? Codeine Phosphate Nausea Only ??? Propoxyphene N-Acetaminophen Nausea Only PAST MEDICAL HISTORY:? Psoriatic arthritis ?? Psoriasis ?? Diabetes mellitus [...] ?? S/p laser treatment of diabetic retinopathy ? MEDICATIONS:? I reviewed pt's medication entries on electronic record. ? ALLERGIES:? Codeine (vomiting) ?? Propoxyphene N-acetaminophen (ulcer) ? SOCIAL HISTORY:? Cigarettes: 2 ppd x 12 years (quit in 1984). ??Alcohol: Rare alcohol use. ??Pt denied any use of illicit drugs. ??She was , with two children. ??Her granddaughter of leukemia in June 2010. ??She was living with her family. 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 ??She was currently applying for disability. ? FAMILY HISTORY:?Mother - Hypertension, hyperlipidemia, hypothyroidism; of cardiac aneurysm at the age of 48. ?? Father - Stroke x two; of a brain tumor at the age of 82. ? PHYSICAL EXAMINATION:? Physical Exam: BP 140/62 Pulse 83 Temp 37.4 ??C (99.4 ??F) Ht 167.6 cm (5' 6) Wt 83.9 kg (185 lb) LMP (LMP Unknown) SpO2 97% BMI 29.86 kg/m?? 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 Cardiovascular: RR, (-)murmurs, rubs, or gallops. Lungs: Clear to auscultation bilaterally. (-)R/R/W Abdomen: Soft, non tender, non distended, + bowel sounds, no hepatosplenomegaly. Neuro: Alert and oriented x3. Cranial nerves II through XII grossly intact. - Strength 5/5 throughout, -Sensation to light touch is grossly normal throughout. DTRs are 2+ throughout. Toes down going bilaterally. Skin: (-)ulcers, (-)rash \ Vascular: Pulses are equal in all extremities. MSK Back: Non tender over the spine and costovertebral angles bilaterally. (+)Ledy lRight Extremities Shoulders :reduced ROM Elbows:FROM, (-)pain, (-)nodules Wrists: FROM, no swelling, non-tender Hands: No synovitis, no MCP compression tenderness, full claw and fist Hips: FROM, (-) fader (-ledy) Knees: (-)effusions, non-tender ROM Ankles: FROM, non-tender, no swelling Feet: no MTP compression tenderness Spine, shoulders, elbows, wrists, fingers, hips, knees and ankles; no active swelling, tenderness or synovitis at any joint. No soft tissue nodules. Labs: Studies: Assessment: Roxann Baxter is a 62 y.o. female who presents today with Ps and Psoriatic arthritis off humara for18 months reports some inflammatory like joint symtoms. Could not afford Humara will consider MTX for the interim and reapply to or pharmacy to see if we get better coverage. Shoulder pain OA, inflam arthritis such as PsA or adheisve capsulitis steriod sensative do to DM resulting in high BS. Plan or Recommendations: Cont clebrex,, Tylenol, and gabapentin We will get x-rays and blood work to evaluate for worsening plantar arthropathy. We will communicate with our pharmacy team about getting patient back on Humira she is failed to NSAIDs and based on history may have inflammatory back disease which DMARD have no clinical indicationfor such as methotrexate. Orders Placed This Encounter Procedures ??? XR Shoulder Bilat (Generic) ??? XR Knee 3 Views Bilat ??? XR Hand Min 3 views Bilat (Generic) ? ? XR Pelvis w AP & Lat Hip Bilat ??? XR Lumbar Spine 2 Or 3 Views (Generic) ??? CRP, acute inflammation ??? Comprehensive metabolic panel (non-fasting) ??? Sedimentation rate ??? CBC (with Diff) ??? HIV Screen, 4th Generation ??? QuantiFERON-TB Gold ??? Hepatitis B Surface Antibody ??? Hepatitis C Antibody ??? Hepatitis B Surface Antigen ??? Hepatitis B Core Antibody, Total ??? HLA-B27 documented in this encounter Plan of Treatment Upcoming Encounters Date Type Department Care Team (Late st Contact Info) Description 05/17/2024 2:30 PM EST Office [place] [id number] Alcides Bonilla MD [facility] [place] [address] 04/06/2049 9:00 AM EST Hospital [place] [address] Harry Guerrero MD [facility] [place] [address] documented as of this encounter Results * HLA-B27 (05/31/2018 8:51 AM EST) HLA-B27 Negative [facility] HLA B27 Interpretation HLA B27 antigen was not detected. Method: Flow Cytometry Reference: 1.Mickey DA, Juarez FD, Angelina Jimenez, et al: Ankylosing spondylitis and HLA-27. Lancet 1973;1:904-907 2.Faye J, Kim EM: HLA-B27 typing by use of flow cytofluorometr y. Clin Chem 1987;33:1619-1 623 [facility] White Blood Cell 4.8 4.0 - 9.5 x10(3)/m cL [facility] Blood specimen (specimen) 05/31/2018 8:51 AM EST 05/31/2018 9:34 AM EST Narrative Resulting Agency Comment Spec In Lab Luis Haywood MD HEMATOLOGY ORDERABLE S [facility] [place] [address] * Hepatitis B Core Antibody, Total (05/31/2018 8:51 AM EST) Hepatitis B Core Antibody Negative Negative [facility] Blood specimen (specimen) 05/31/2018 8:51 AM EST 05/31/2018 9:34 AM EST Narrative Resulting Agency Comment Spec In Lab Luis Haywood MD CHEMISTRY ORDERABLES Performing Organization Address [facility] Co de Phone Number [facility] [place] [address] * Hepatitis B Surface Antigen (05/31/2018 8:51 AM EST) Hepatitis B Surface Antigen Negative Negative [facility] Blood specimen (specimen) 05/31/2018 8:51 AM EST 05/31/2018 9:34 AM EST Narrative Resulting Agency Comment Spec In Lab Luis Haywood MD CHEMISTRY ORDERABLES Performing Organization Address [facility] Co de Phone Number [facility] [place] [address] * Hepatitis C Antibody (05/31/2018 8:51 AM EST) Hepatitis C Antibody Negative Negative [facility] Blood specimen (specimen) 05/31/2018 8:51 AM EST 05/31/2018 9:34 AM EST Narrative Resulting Agency Comment Spec In Lab Luis Haywood MD CHEMISTRY ORDERABLES Performing Organization Address [facility] de Phone Number [facility] [place] [address] * Hepatitis B Surface Antibody (05/31/2018 8:51 AM EST) Hepatitis B Surface Antibody, Quantitative 3.5 IU/L [facility] Comment: HepB Surface Ab Quant: Unvaccinated: < 8.5 IU/L Vaccinated: > 11.5 IU/L Hepatitis B Surface Antibody Negative [facility] Comment: Patient is presumed to be not vaccinated or immune to HBV infection. Expected Results: Vaccinated: Positive Unvaccinated: Negative Blood specimen (specimen) 05/31/2018 8:51 AM EST 05/31/2018 9:34 AM EST Narrative Resulting Agency Comment Spec In Lab Luis Haywood MD CHEMISTRY ORDERABLES [facility] [place] [address] * QuantiFERON-TB Gold (05/31/2018 8:51 AM EST) Quantiferon Nil 0.140 IU/mL [facility] QFT TB Ag1-Nil -0.020 IU/mL [facility] QFT TB Ag2-Nil -0.010 IU/mL [facility] Quantiferon Mitogen-Nil 9.980 IU/mL [facility] Quantiferon-TB Gold Negative Negative [facility] Quantiferon Tb Interp M. tuberculosis infection NOT likely A negative specimen should have a TB1 Ag minus Nil value and TB2 Ag minus Nil value of less than 0.35 IU/mL OR a TB1 Ag minus Nil or TB2 Ag minus Nil value greater than or equal to 0.35 IU/mL AND a TB Ag minus Nil value from the same tube of less than 25% of the Nil value. A negative specimen must also have a mitogen minus Nil value greater than or equal to 0.5 IU/mL. A negative QFT-Plus result does not preclude the possibility of M. tuberculosis infection. False negative results can occur due to stage of infection (specimen obtained prior to the development of immune response), co-morbid conditions which affect immune function, or other immunological factors. [facility] Comment: The performance of the QFT-Plus assay has not been extensively evaluated with specimens from the following individuals: Individuals who have impaired or altered immune functions, such as those who have HIV infection or AIDS, those who have transplantation managed with immunosuppressive treatment or others who receive immunosuppressive drugs (e.g., corticosteroids, methotrexate, azathioprine, cancer chemotherapy), those who have other clinical conditions, such as diabetes, silicosis, chronic renal failure, and hematological disorders (e.g., leukemia and lymphomas), or those with other specific malignancies (e.g., carcinoma of the head or neck and lung). Individuals younger than age 17 years women. Diagnosis of, or the exclusion of tuberculosis disease, and assessment of Latent Tuberculosis Infection (LTBI) requires a combination of epidemiological, historical, Medical and diagnostic findings that should be taken into account when interpreting QFT-Plus results. Blood specimen (specimen) 05/31/2018 8:51 AM EST 06/01/2018 7:19 AM EST Narrative Resulting Agency Comment Spec In Lab Luis Haywood MD CHEMISTRY ORDERABLES Performing Organization Address [facility] Co de Phone Number [facility] [place] [address] * HIV Screen, 4th Generation (05/31/2018 8:51 AM EST) Pathologist [facility] HIV Ab/Ag Screen Negative Negative [facility] Comment: This 4th Generation HIV test screens for the presence of the HIV-1 p24 antigen as well as antibodies reactive against HIV-1 and HIV-2. A negative screen does not rule out an acute HIV infection. If acute HIV infection is suspected, testing should be repeated in 2 - 3 weeks or HIV nucleic acid testing performed. Blood specimen (specimen) 05/31/2018 8:51 AM EST 05/31/2018 9:34 AM EST Narrative Resulting Agency Comment Spec In Lab Luis Haywood MD CHEMISTRY ORDERABLES Performing Organization Address [facility] Co de Phone Number [facility] [place] [address] * Sedimentation rate (05/31/2018 8:51 AM EST) Sedimentation Rate Automated 7 0 - 20 mm/hr [facility] Blood specimen (specimen) 05/31/2018 8:51 AM EST 05/31/2018 9:34 AM EST Narrative Resulting Agency Comment Spec In Lab Luis Haywood MD HEMATOLOGY ORDERABLE S Performing Organization Address City/[facility] Co de Phone Number [facility] [place] [address] * (ABNORMAL) Comprehensive metabolic panel (non-fasting) (05/31/2018 8:51 AM EST) Glucose 251(H) 65 - 199 mg/dL [facility] Comment:Diabetes: >=200 mg/d L plus symptoms Blood Urea Nitrogen 10 8 - 18 mg/dL [facility] Creatinine 0.69(L) 0.70 - 1.20 mg/dL [facility] Sodium 139 135 - 145 mmol/L [facility] Potassium 4.4 3.5 - 5.0 mmol/L [facility] Comment: Please note: ??Patients with WBC >100,000 may have falsely elevated Potassium levels. ??For accurate Potassium quantification in these patients send serum separator tube (gold top) for subsequent determinations. ??Contact the Clinical Chemistry Laboratory if there are any questions. Chloride 101 98 - 107 mmol/L [facility] Carbon Dioxide 26 22 - 31 mmol/L [facility] Anion Gap 12 5 - 15 mmol/L [facility] Calcium 8.6 8.5 - 10.5 mg/dL [facility] Protein, Total 6.3 6.1 - 8.0 gm/dL [facility] Albumin 3.8 3.2 - 5.2 gm/dL [facility] Aspartate Aminotransferase 14 0 - 30 unit/L [facility] Alanine Aminotransferase 12 0 - 30 unit/L [facility] Alkaline Phosphatase 40 40 - 104 unit/L [facility] Bilirubin, Total 0.6 0.2 - 1.3 mg/dL [facility] Est Glomerular Filtration Rate 93 >=60 mL/min/1. 73 m?? [facility] Comment: The eGFR was calculated using the CKD-EPI equation. As with all creatinine based estimates of kidney function, eGFR values calculated with the CKD-EPI equation are not accurate in patients with acute kidney failure, extremes of body mass or the acutely ill. http://xPeerient/DHMCnkf eGFR 108 >=60 mL/min/1. 73 m?? [facility] Comment: The eGFR was calculated using the CKD-EPI equation. As with all creatinine based estimates of kidney function, eGFR values calculated with the CKD-EPI equation are not accurate in patients with acute kidney failure, extremes of body mass or the acutely ill. http://[email or web address]/DHMCnkf Blood specimen (specimen) 05/31/2018 8:51 AM EST 05/31/2018 9:34 AM EST Narrative Resulting Agency Comment Spec In Lab Luis Haywood MD CHEMISTRY ORDERABLES Performing Organization Address City/[facility] Co de Phone Number [facility] [place] [address] * CRP, acute inflammation (05/31/2018 8:51 AM EST) C-Reactive Protein 0.6 <=4.9 mg/L [facility] Blood specimen (specimen) 05/31/2018 8:51 AM EST 05/31/2018 9:34 AM EST Narrative Resulting Agency Comment Spec In Lab Luis Haywood MD CHEMISTRY ORDERABLES Performing Organization Address [facility] Co de Phone Number [facility] [place] [address] documented in this encounter Visit Diagnoses Diagnosis Chronic pain of both shoulders Pain in joint, shoulder region Osteoarthritis, unspecified osteoarthritis type, unspecified site Pain in both hands Morning joint stiffness Stiffness of joint, not elsewhere classified, unspecified site Chronic pain of both knees Psoriatic arthritis.currently on Hydroxychloroquine. No signs of hydroxychloroquine retinopathy. Recommend close followup. Psoriatic arthropathy Psoriasis Other psoriasis Chronic bilateral low back pain without sciatica Bilateral hip pain Pain in joint, pelvic region and thigh Ankylosing spondylitis of multiple sites in spine Ankylosing spondylitis documented in this encounter Care Teams Advanced Solutions Architect Relationship Specialty Start Date End Date Nayla Miramontes MD [address] [place] [address] PCP - General 05/21/11 05/10/21 documented as of this encounter
--- OUTSIDE RECORDS SUMMARY | 2024-03-07 18:57 | XMS_ITS | Encounter Summary ---
Author Organization Counts Include [facility] Address [facility] [place] [address] Care Team Providers Care Dental Hygienist Name Role Phone Nayla Miramontes MD Primary Care Provider [phone] Encounter Details Date Type Department Care Team (Latest Contact Info) Description 01/01/2018 12:28 PM EDT - 01/01/2018 3:53 PM EDT Hospital En[place] [address] Anastasiia Castanon MD [facility] [place] [address] Discharge Disposition: Home Social History Tobacco Use [...] Sign Reading Time Taken Comments Blood Pressure 130/95 01/01/2018 3:20 PM EDT Pulse 73 01/01/2018 2:35 PM EDT Temperature - - Respiratory Rate 16 01/01/2018 3:28 PM EDT Oxygen Saturation 100% 01/01/2018 2:35 PM EDT Inhaled Oxygen Concentration - - Weight - - Height - - Body Mass Index - - documented in this encounter Discharge Instructions * Discharge Instructions* Qi Villa, RN - 01/01/2018 3:04 PM EDT Colonoscopy What to expect after the procedure You may feel a little more gassy or bloated than usual. This is normal. You should expect the return of normal bowel function in the 2 to 3 days. Activity Because of the sedation that you received your judgement and reaction time are effected ?? Go home and rest quietly for the remainder of the day. You may resume your normal activities tomorrow. ?? Change from one position to the next slowly. You may lose your balance unexpectedly ?? Be careful on stairs, as you may be unsteady on your feet FOR THE NEXT 24 HRS ?? DO NOT DRIVE OR OPERATE ANY MACHINERY ?? DO NOT DRINK ALCOHOLIC BEVERAGES ?? DO NOT SIGN LEGAL DOCUMENTS ?? If you are a smoker: DO NOT SMOKE WHILE YOU ARE ALONE Diet ?? Start by eating small portions of foods that ordinarily will not upset your stomach . Avoid gas producing foods for the next few days ?? Be gentle with what you choose to start with ?? Drink plenty of fluids ( unless your doctor has told you not to). IV SITE-- slight redness, or tenderness is normal. You can use warm compresses if you become concerned. If the tenderness +/or redness increases or foul drainage and a red streak occurs, please contact your PCP immediately When shoud you call for help? Call 911 anytime you think you may need emergency care. For example If you pass out ( loss of consciousness) If you pass maroon or bloody stools If you have severe belly pain Call your doctor now or seek immediate medical care If your stools are black and tarlike If your stools have streaks of blood, but you did not have a biopsy or any polyps removed If you have belly pain, or your belly is swollen and firm If you vomit If you have a fever If you are very dizzy Watch closely for changes in your health, and be sure to contact your doctor if you have any problems Your doctor will let you know when you will need your next colonoscopy. The results of your test and your risk for colorectal cancer will help your doctor decide how often you need to be checked. Thursday-Thursday Same Day Endo [phone] 7a-8p Otherwise contact [phone] and ask to speak to the nursing tech leather production worker Follow up care is a metcalf part of your treatment and safety. Be sure to make and go to all appointments, and call your doctor if you are having problems. Discharge instructions reviewed with patient who expresses understanding documented in this encounter Medications at Time of Discharge Medication Sig Dispensed Refills Start Date End Date trimethobenzamide (TIGAN) 300 mg Capsule Take by mouth 4 times daily as needed. 08/08/2015 insulin lispro (HUMALOG) Solution Inject 65 Units subcutaneously continuous. Continuous Via insulin pump 60 mL 3 06/23/2017 melatonin 5 mg Tablet Take 10 mg by mouth nightly. magnesium citrate Solution Take 295 mLs by mouth 2 times daily as needed. 590 mL 5 03/06/2017 Diabetic Supplies, Miscellan. [facility] DWO for Infusion sets faxed to [employer] 100 each 12 02/01/2017 insulin glargine (LANTUS) SolutionIndications :type 1 diabetes mellitus Inject 10 Units subcutaneously 2 times daily. Needed for insulin pump failure Indications: type 1 diabetes mellitus 10 mL 01/23/2017 atorvastatin (LIPITOR) 40 mg Tablet Take 40 mg by mouth daily. 04/28/2016 celecoxib (CELEBREX) 100 mg Capsule Take 100 mg by mouth 2 times daily. 04/28/2016 Diabetic Supplies, Miscellan. [facility] Inject 1 each subcutaneously 4 times daily. Faxed pump and supply order to [employer] at [phone]. Dx Code: 250.01 100 each 12 12/21/2015 Diabetic Supplies, Miscellan. [facility] MNF faxed to [facility] 100 each 12 10/30/2015 bisacodyl (DULCOLAX) 10 mg SuppositoryIndicati ons:Other constipation Place 1 suppository rectally daily. 60 suppository 3 03/20/2015 lisinopril (PRINIVIL;ZESTRIL) 20 mg Tablet Take 1 tablet by mouth daily. 30 tablet 12/08/2013 MULTI-VITAMIN ORAL Take 1 tablet by mouth daily. Reported on 05/26/2016 Adalimumab (HUMIRA PEN) 40 mg/0.8 mL Pen Injector Kit Inject 0.8 mLs subcutaneously every 14 days. 6 kit 3 03/13/2017 05/12/2018 sodium phosphates (FLEET) Enema Place 1 Bottle rectally once as needed for Constipation for up to 1 dose. 135 mL 3 03/06/2017 08/26/2022 busPIRone (BUSPAR) 10 mg Tablet Take 10 mg by mouth 2 times daily. 05/12/2018 nefazodone (SERZONE) 100 mg Tablet Take 1 tablet by mouth 2 times daily. 30 tablet 02/14/2016 01/22/2024 levothyroxine (SYNTHROID) 175 mcg Tablet Take 150 mcg by mouth daily. 05/12/2018 polyethylene glycol (MIRALAX) 17 gram/dose Powder Take 34 g by mouth 2 times daily. 255 g 3 07/24/2015 05/12/2018 ondansetron (ZOFRAN-ODT) 8 mg Tablet, Rapid DissolveIndications :N&V (nausea and vomiting) Take 1 tablet by mouth every 8 hours as needed for Nausea. 20 tablet 11 11/15/2014 01/22/2024 documented as of this encounter H&P Notes * Anastasiia Castanon MD - 01/01/2018 1:48 PM EDT Patient Name: Roxann Baxter Patient Age: 62 y.o. Birthdate: 1955 Admit date: 01/01/2018 Attending Physician: Anastasiia Castanon MD Gastroenterology and Hepatology Pre-Procedure History and Physical Exam Procedure: Colonoscopy: Indication: iron deficiency, constipation and fecal incontinence Patient Active Problem List Diagnosis Code ??? Diabetes mellitus E11.9 ??? Hypertension I10 ??? Hyperlipidemia E78.5 ??? Hypothyroidism E03.9 ??? Psoriasis L40.9 ??? Depression F32.9 ??? Iron deficiency E61.1 ??? Asthma J45.909 ??? Microcytic anemia D50.9 ??? GERD (gastroesophageal reflux disease) K21.9 ??? Giron's esophagus K22.70 ??? Diabetic retinopathy associated with type 1 diabetes mellitus E10.319 ??? DKA (diabetic ketoacidoses) E13.10 ??? Reflux esophagitis K21.0 ??? Gastritis K29.70 ??? Anasarca R60.1 ??? Cortical cataract H26.9 ??? 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 Vitreous hemorrhage of left eye H43.12 ??? PSC (posterior subcapsular cataract), bilateral [id number] ??? Type 1 diabetes mellitus E10.9 ??? [...] Pruritus L29.9 ??? Scoliosis M41.9 ??? Chronic low back pain M54.5, G89.29 ??? Dysphagia R13.10 ??? Chronic constipation K59.09 ??? PDR (proliferative diabetic retinopathy) E11.3599 ??? Diabetic retinopathy E11.319 ??? Vitreous hemorrhage of right eye H43.11 ??? IDDM (insulin dependent diabetes mellitus) E11.9, Z79.4 ??? Urinary incontinence R32 ??? Pseudophakia of both eyes (OD - 15, OS - 15) Z96.1 ??? Presence of insulin pump Z96.41 ??? MDD (major depressive disorder), recurrent episode, moderate F33.1 ??? Morbid obesity E66.01 ??? Fecal incontinence R15.9 EXAM: HEENT: Airway examined, oropharynx clear Mallampati [...] 2:30 PM EST Office [place] [id number] Alcides Bonilla MD [facility] [place] [address] 04/06/2049 9:00 AM EST Hospital En[place] [address] Harry Guerrero MD [facility] [place] [address] documented as of this encounter Procedures Procedure Name Priority Date/Time Associated Diagnosis Comments COLONOSCOPY, DIAGNOSTIC (WRVU 3.26) 01/01/2018 1:55 PM EDT Iron deficiency Incontinence of feces, unspecified fecal incontinence type COLONOSCOPY Routine 01/01/2018 1:40 PM EDT POCT FINGERSTICK GLUCOSE Routine 01/01/2018 documented in this encounter Results * COLONOSCOPY (01/01/2018 1:40 PM EDT) COLONOSCOPY [facility] Endoscopy Procedure Date: 01/01/2018 1:40 PM ? Patient Name: Roxann Baxter ? Date of : 1955 ? Age: 62 ? Order #: [id number] ? Instrument Name: [id number] ? Procedure: ? Colonoscopy Indications: ? Iron deficiency anemia Providers: ? Anastasiia Castanon MD, Alcides Alexis ? ELSA Resendiz, Mana Frenchar Referring : ?Nayla Miramontes MD Medicines: ? Midazolam 4 mg IV, Fentanyl 150 ? micrograms IV Complications: ? No immediate complications. Procedure: ? The procedure, indications, benefits, ? risks and alternatives were explained ? to the patient. Specifically ? discussed were potential ? complications including, but not ? limited to, bleeding, perforation, ? infection, missing a cancer, and ? adverse medication reactions. The ? patient was placed in the left ? lateral decubitus position, and a ? digital rectal exam was performed. ? The Colonoscope was inserted in the ? anus and under direct visualization, ? advanced to the terminal ileum, with ? identification of the appendiceal ? orifice and IC valve. Careful ? inspection was made as the ? colonoscope was withdrawn. The ? colonoscopy was somewhat difficult ? due to multiple diverticula in the ? colon. Successful completion of the ? procedure was aided by increasing the ? dose of sedation medication. The ? patient tolerated the procedure well. ? The quality of the bowel preparation ? was good after extensive washing. The ? quality of the bowel preparation was ? evaluated using the BBPS ([place] ? Bowel Preparation Scale) with scores ? of: Right Colon = 2 (minor amount of ? residual staining, small fragments of ? stool and/or opaque liquid, but ? mucosa seen well), Transverse Colon = ? 2 (minor amount of residual staining, ? small fragments of stool and/or ? opaque liquid, but mucosa seen well) ? and Left Colon = 2 (minor amount of ? residual staining, small fragments of ? stool and/or opaque liquid, but ? mucosa seen well). The total BBPS ? score equals 6. Withdrawal time was ? 21 minutes. ? Findings: ? The perianal and digital rectal examinations were ? normal. ? The terminal ileum appeared normal. ? A few small-mouthed diverticula were found in the ? sigmoid colon. There was significant hypertrophy of ? the mucosal folds with mild loss of vascularity and ? erythema in this segment . ? The retroflexed view of the distal rectum and anal ? verge was normal and showed no anal or rectal ? abnormalities. ? Moderate Sedation: ? Moderate (conscious) sedation was administered by the ? endoscopy nurse and supervised by the endoscopist. ? The following parameters were monitored: oxygen ? saturation, heart rate, blood pressure, and response ? to care. Impression: ?- The examined portion of the ileum ? was normal. ? - Diverticulosis in the sigmoid colon ? with hypertrophic mucosal folds. ? - The distal rectum and anal verge ? are normal on retroflexion view. ? - No specimens collected. ? - No source for iron deficiency seen. Recommendation: ?- Resume bowel regimen: High fiber. ? Citrucel (fiber) daily. ? - Consider a repeat colonoscopy in 10 ? years for screening (would use ? pediatric colonoscope). ? - Follow-up with PCP per routine and ? in GI clinic as planned. ? Attending Participation: ? I personally performed the entire procedure. ? Dr. Anastasiia Castanon __ Anastasiia Castanon MD 01/01/2018 2:50:32 PM Number of Addenda: 0 Note Initiated On: 01/01/2018 1:40 PM [facility] 01/01/2018 1:40 PM EDT Nayla Miramontes MD GENERAL SURGICAL ORD ERABLES [facility] * POCT Fingerstick Glucose (01/01/2018) Glucose, POC 146 60 - 199 mg/dl 01/01/2018 Anastasiia Csatanon MD POINT OF CARE TEST O RDERABLES documented in this encounter Visit Diagnoses Not on filedocumented in this encounter Active and Recently Administered Medications Times are shown in EDT. PRN Medication Order 12/30/2017 12/31/2017 01/01/2018 fentaNYL 50 mcg/mL multi-dose injection (CANCELED) ONCE PRN, Starting on Thu01/01/18 at 1400, Until Thu01/01/18 at 1753, Intra-Operative (Intra-Procedure), Routine 1400 (Given - Provid er: Alcides Resendiz RN)1404 (Given - Provider: Alcides Resendiz RN)1406 (Given - Provider: Alcides Resendiz RN)1411 (Given - Provider: Alcides Resendiz RN)1417 (Given - Provider: Alcides Resendiz RN) midazolam (PF) (VERSED) 1 mg/mL multi-dose injection (CANCELED) ONCE PRN, Starting on Thu01/01/18 at 1400, Until Thu01/01/18 at 1753, Intra-Operative (Intra-Procedure), Routine 1400 (Given - Provid er: Alcides Resendiz RN)1401 (Given - Provider: Alcides Resendiz RN)1404 (Given - Provider: Alcides Resendiz RN)1406 (Given - Provider: Alcides Resendiz RN)1411 (Given - Provider: Alcides Resendiz RN)1417 (Given - Provider: Alcides Resendiz RN) documented in this encounter Care Teams Dental Hygienist Relationship Specialty Start Date End Date Nayla Miramontes MD [facility] [address] [place] [address] PCP - General 05/21/11 05/10/21 documented as of this encounter
--- OUTSIDE RECORDS SUMMARY | 2024-03-07 18:57 | XMS_ITS | Encounter Summary ---
[place] [address] Care Team Providers Care Sodder Name Role Phone Nayla Miramontes MD Primary Care Provider [phone] Reason for Visit * Reason Onset Date Comments Pump/sensor 07/14/2017 Encounter Details Date Type Department Care Team (Late st Contact Info) Description 07/14/2017 Telephone [place] [address] Kaya Capps RN Pump/sensor Social History Tobacco Use Types Packs/Day [...] encounter Miscellaneous Notes * Telephone Encounter - Kaya Capps RN - 07/14/2017 12:34 PM EDT Chart notes from recent visit faxed to [facility] with confirmation receipt received documented in this encounter Plan of Treatment Upcoming Encounters Date Type Department Care Team (Late Contact Info) Description 05/17/2024 2:30 PM EST Office [place] [address] Alcides Bonilla MD [facility] [place] [place] [address] 04/06/2049 9:00 AM EST Hospital Encounter [place] [address] Harry Guerrero MD [facility] [place] [address] documented as of this encounter Visit Diagnoses Not on filedocumented in this encounter Care Teams Sodder Relationship Specialty Start Date End Date Nayla Miramontes MD [facility] ANABELLA L[address]PEZ [facility] [address] [place] [address] PCP - General 05/21/11 05/10/21 documented as of this encounter
--- OUTSIDE RECORDS SUMMARY | 2024-03-07 18:57 | XMS_ITS | Encounter Summary ---
Author Organization [facility] Address [facility] [place] [address] Care Team Providers Care Delivery Person Name Role Phone Nayla Miramontes MD Primary Care Provider [phone] Encounter Details Date Type Department Care Team (Latest Contact Info) Description 06/12/2016 1:54 PM EST - 06/12/2016 11:59 PM [facility] Hospital Encounter XRay at [address] [place] [address] Darryl Burgos MD [facility] [address] Chronic pain in left shoulder Discharge Disposition: Home Social History Tobacco Use [...] on file documented as of this encounter Medications at Time of Discharge Medication Sig Dispensed Refills Start Date End Date trimethobenzamide (TIGAN) 300 mg Capsule Take by mouth 4 times daily as needed. 08/08/2015 atorvastatin (LIPITOR) 40 mg Tablet Take 40 mg by mouth daily. 04/28/2016 celecoxib (CELEBREX) 100 mg Capsule Take 100 mg by mouth 2 times daily. 04/28/2016 Diabetic Supplies, Miscellan. Misc Inject 1 each subcutaneously 4 times daily. Faxed pump and supply order to [employer] at [phone]. Dx Code: 250.01 100 each 12 12/21/2015 Diabetic Supplies, Trendslidecellan. [facility] MNF faxed to [facility] 100 each 12 10/30/2015 bisacodyl (DULCOLAX) 10 mg SuppositoryIndicati ons:Other constipation Place 1 suppository rectally daily. 60 suppository 3 03/20/2015 lisinopril (PRINIVIL;ZESTRIL) 20 mg Tablet Take 1 tablet by mouth daily. 30 tablet 12/08/2013 MULTI-VITAMIN ORAL Take 1 tablet by mouth daily. Reported on 05/26/2016 gabapentin (NEURONTIN) 300 mg Capsule Take 1 capsule by mouth 3 times daily. 90 capsule 11 03/04/2016 03/04/2017 Adalimumab (HUMIRA PEN) 40 mg/0.8 mL Pen Injector Kit Inject 0.8 mLs subcutaneously every 14 days. 4 kit 1 02/26/2016 01/27/2017 nefazodone (SERZONE) 100 mg Tablet Take 1 tablet by mouth 2 times daily. 30 tablet 02/14/2016 01/22/2024 Diabetic Supplies, Miscellan. [facility] C[facility] faxed to [employer]. 600 each 3 12/21/2015 01/27/2017 levothyroxine (SYNTHROID) 175 mcg Tablet Take 150 mcg by mouth daily. 05/12/2018 polyethylene glycol (MIRALAX) 17 gram/dose Powder Take 34 g by mouth 2 times daily. 255 g 3 07/24/2015 05/12/2018 ondansetron (ZOFRAN-ODT) 8 mg Tablet, Rapid DissolveIndications :N&V (nausea and vomiting) Take 1 tablet by mouth every 8 hours as needed for Nausea. 20 tablet 11 11/15/2014 01/22/2024 insulin lispro (HUMALOG) injection Inject 65 Units subcutaneously continuous. Via insulin pump 06/23/2017 insulin glargine (LANTUS) 100 unit/mL vial injectionIndication s:type 1 diabetes mellitus Inject 18 Units subcutaneously daily. 1 vial = 10ml = 1,000 units Indications: Type 1 Diabetes Mellitus 10 mL 5 04/29/2011 01/23/2017 melatonin 3 mg Tab Take 9 mg by mouth nightly. 03/06/2017 documented as of this encounter Plan of Treatment Upcoming Encounters Date Type Department Care Team (Late st Contact Info) Description 05/17/2024 2:30 PM EST Office [place] [phone] Alcides Bonilla MD [facility] [place] [address] 04/06/2049 9:00 AM EST Hospital Encounter [place] [phone] Harry Guerrero MD [facility] [place] [address] documented as of this encounter Procedures Procedure Name Priority Date/Time Associated Diagnosis Comments XR JOINT ASPIRATION - LARGE JOINT LEFT Routine 06/12/2016 3:45 PM EST Chronic pain in left shoulder documented in this encounter Results * XR Fluoro Guided Joint Injection Large Left (06/12/2016 3:45 PM EST) Anatomical Region Laterality Modality Left Radio Fluoroscop y Impressions 06/12/2016 4:13 PM EST Uneventful left glenohumeral joint injection under fluoroscopy. Resident/ Fellow: None present Attending: Dr. Tunde Davidson Procedure performed by Marcia Thornton APRN. There was no radiology attending present for this procedure. Narrative 06/12/2016 4:13 PM EST HISTORY: persistent left shoulder pain. ??Please perform IA steroid injection of the left shoulder LEFT SHOULDER JOINT INJECTION UNDER FLUOROSCOPY TECHNIQUE: After an extensive conversation with the patient regarding risks and benefits, oral and written consent were obtained. ??A pre- procedural time-out was performed as per [facility] protocol. The patient was placed supine on the fluoroscopic table. ??The skin overlying the left shoulder joint was prepped and draped in the usual aseptic manner. 1% Lidocaine was used to achieve local anesthesia. Under fluoroscopic guidance, 22 gauge spinal needle was advanced into the joint space. ??Small amount of contrast (Omnipaque 300, 2 mL) injected to document needle placement. ??A mixture of Ropivacaine and triamcinolone acetonide was injected. All needles removed at end of procedure. FINDINGS: 1. ??Small amount of injected contrast in the glenohumeral joint space. 2. ??PAIN SCORE: ??Before: 10/13 ??After: 04/15 3. Fluoroscopy time: 0.28 minutes 4. Medications: ??Lidocaine 1% - <5 ml, for subcutaneous anesthesia ??Ropivacaine HCL ??0.5% - 3 ml ??Triamciolone Acetonide ??- 40 mg COMPLICATIONS: ??None immediate. POST-PROCEDURE CARE: Information regarding monitor of infection, post- procedural pain and management of steroid flare were reviewed with patient. Procedure Note Marcia Thornton APRN - 06/12/2016 HISTORY: persistent left shoulder pain. Please perform IA steroidinjection of the left shoulder LEFT SHOULDER JOINT INJECTION UNDER FLUOROSCOPY TECHNIQUE: After an extensive conversation with the patient regardingrisks and benefits, oral and written consent were obtained. A pre- proceduraltime-out was performed as per [facility] protocol. The patient was placed supine on the fluoroscopic table. The skinoverlying the left shoulder joint was prepped and draped in the usual aseptic manner.1% Lidocaine was used to achieve local anesthesia. Under fluoroscopicguidance, 22 gauge spinal needle was advanced into the joint space. Small amount ofcontrast (Omnipaque 300, 2 mL) injected to document needle placement. A mixtureof Ropivacaine and triamcinolone acetonide was injected. All needles removedat end of procedure. FINDINGS: 1. Small amount of injected contrast in the glenohumeral joint space. 2. PAIN SCORE: Before: 10 After: 04/15 3. Fluoroscopy time: 0.28 minutes 4. Medications: Lidocaine 1% - <5 ml, for subcutaneous anesthesia Ropivacaine HCL 0.5% - 3 ml Triamciolone Acetonide - 40 mg COMPLICATIONS: None immediate. POST-PROCEDURE CARE: Information regarding monitor of infection, post- procedural pain and management of steroid flare were reviewed withpatient. IMPRESSION Uneventful left glenohumeral joint injection under fluoroscopy. Resident/ Fellow: None present Attending: Dr. Tunde Davidson Procedure performed by Marcia Thornton APRN. There was no radiologyattending present for this procedure. Darryl Burgos MD IMG FLUORO ORDERABLE S documented in this encounter Visit Diagnoses Diagnosis Chronic pain in left shoulder Pain in joint, shoulder region documented in this encounter Administered Medications Inactive Administered Medications - up to 3 most recent administrations Medication Order MAR Action Action Date Dose Rate Site iohexol (OMNIPAQUE) 300 mg/mL solution 3 mL 3 mL, Intra-articular, ONCE, 1 dose, On Cristina 06/12/16 at 1600, Warning Vesicant/Irritant Medication , Routine Given 06/12/2016 3:30 PM EST 3 mLs ROpivacaine (PF) 5 mg/mL (0.5 %) 4 mL with triamcinolone acetonide 40 mg injection Intra-articular, ONCE, 1 dose, On Cristina 06/12/16 at 1545 Given 06/12/2016 3:35 PM EST documented in this encounter Care Teams Delivery Person Relationship Specialty Start Date End Date Nayla Miramontes MD [address] [place] [address] PCP - General 05/21/11 05/10/21 documented as of this encounter
--- OUTSIDE RECORDS SUMMARY | 2024-03-07 18:57 | XMS_ITS | Encounter Summary ---
Author Organization [facility] [place] [address] Care Team Providers Care Caramel Candy Maker Name Role Phone Nayla Miramontes MD Primary Care Provider [phone] Reason for Visit * Reason Onset Date Comments Other 03/16/2017 MAP - Applicatio n to Patient Encounter Details Date Type Department Care Team ([facility] Contact Info) Description 03/16/2017 [place] [address] Esha Morse Other (MAP - Application to Patient) Social History Tobacco Use Types Packs/Day Years [...] encounter Miscellaneous Notes * Telephone Encounter - Esha Morse - 03/16/2017 9:54 AM EST MAP - Application to Patient Per patient request I mailed letter with the application for Nancy [employer]) to Ms. Baxter for her to complete, sign, and return to me with proof of income. I will follow through with the applicationonce everything is returned to me. [phone] documented in this encounter Plan of Treatment Upcoming Encounters Date Type Department Care Team ([facility] Contact Info) Description 05/17/2024 2:30 PM EST Office [place] [address] Alcides Bonilla MD [facility] [place] [address] 04/06/2049 9:00 AM EST Hospital Encounter [place] [phone] Harry Guerrero MD [facility] [place] [address] documented as of this encounter Visit Diagnoses Not on filedocumented in this encounter Care Teams Caramel Candy Maker Relationship Specialty Start Date End Date Nayla Miramontes MD [address] [facility] [address] [place] [address] PCP - General 05/21/11 05/10/21 documented as of this encounter
--- OUTSIDE RECORDS SUMMARY | 2024-03-07 18:57 | XMS_ITS | Encounter Summary ---
Author Organization [facility] Address [facility] [place] [address] Care Team Providers Care Disk Grinder Name Role Phone Nayla Miramontes MD Primary Care Provider [phone] Encounter Details Date Type Department Care Team (Latest Contact Info) Description 03/09/2017 2:37 PM EST - 03/09/2017 11:59 PM [facility] Hospital Encounter XRay at [address] [place] [address] Anastasiia Castanon MD [facility] [place] [address] Chronic constipation; Incontinence of feces, unspecified fecal incontinence type; Iron deficiency Discharge Disposition: Home Social History Tobacco Use [...] mouth 4 times daily as needed. 08/08/2015 melatonin 5 mg Tablet Take 10 mg by mouth nightly. magnesium citrate Solution Take 295 mLs by mouth 2 times daily as needed. 590 mL 5 03/06/2017 Diabetic Supplies, Miscellan. [facility] DWO for Infusion sets faxed to [employer] 100 each 12 02/01/2017 insulin glargine (LANTUS) SolutionIndications :type 1 diabetes mellitus Inject 10 Units subcutaneously 2 times daily. Needed for insulin pump failure Indications: type 1 diabetes mellitus 10 mL 01/23/2017 atorvastatin (LIPITOR) 40 mg Tablet Take 40 mg by mouth daily. 04/28/2016 celecoxib (CELEBREX) 100 mg Capsule Take 100 mg by mouth 2 times daily. 04/28/2016 Diabetic Supplies, Miscellan. [facility] Inject 1 each subcutaneously 4 times daily. Faxed pump and supply order to [employer] at [phone]. Dx Code: 250.01 100 each 12 12/21/2015 Diabetic Supplies, Miscellan. [facility] [place] faxed to [facility] 100 each 12 10/30/2015 bisacodyl (DULCOLAX) 10 mg SuppositoryIndicati ons:Other constipation Place 1 suppository rectally daily. 60 suppository 3 03/20/2015 lisinopril (PRINIVIL;ZESTRIL) 20 mg Tablet Take 1 tablet by mouth daily. 30 tablet 12/08/2013 MULTI-VITAMIN ORAL Take 1 tablet by mouth daily. Reported on 05/26/2016 polyethylene glycol-electrolytes (PEG 3350-ELECTROLYTES) 420 gram Recon SolnIndications:Inc ontinence of feces, unspecified fecal incontinence type,Iron deficiency Take 4,000 mLs by mouth once for 1 dose. 4000 mL 03/10/2017 03/10/2017 sodium phosphates (FLEET) Enema Place 1 Bottle [...] Units subcutaneously continuous. Via insulin pump 06/23/2017 documented as of this encounter Plan of Treatment Upcoming Encounters Date Type Department Care Team (Late st Contact Info) Description 05/17/2024 2:30 PM EST Office [place] [phone] Alcides Bonilla MD [facility] [place] [address] 04/06/2049 9:00 AM EST Hospital Encounter [place] [phone] Harry Guerrero MD [facility] [place] [address] documented as of this encounter Procedures Procedure Name Priority Date/Time Associated Diagnosis Comments XR ABDOMEN 1 VIEW Routine 03/09/2017 3:1 0 PM EST Chronic constipation Incontinence of feces, unspecified fecal incontinence type Iron deficiency documented in this encounter Results * XR Abdomen 1 view (Generic) (03/09/2017 3:10 PM EST) Anatomical Region Laterality Modality Abdomen N/A Digital Radiogra phy Impressions 03/09/2017 5:23 PM EST Small to moderate stool burden. No evidence of obstruction. Narrative 03/09/2017 5:23 PM EST EXAMINATION: XR ABDOMEN 1 VIEW (GENERIC) CLINICAL HISTORY: diabetes with hx of constipation, now with diarrhea - evaluate for stool burden ? of overflow diarrhea TECHNIQUE: 2 views of the abdomen COMPARISON: Facility Practice Specialist from 02/11/2016 FINDINGS: There is a small to moderate amount of contrast seen in the ascending and transverse colon and a very small amount seen in the region of descending colon. Scattered small bowel air is seen. There is no evidence of obstruction. Free air cannot be excluded on this supine film. Rotoscoliosis and degenerative changes seen. Procedure Note Rae Riddle MD - 03/09/2017 EXAMINATION: XR ABDOMEN 1 VIEW (GENERIC) CLINICAL HISTORY: diabetes with hx of constipation, now with diarrhea -evaluate for stool burden ? of overflow diarrhea TECHNIQUE: 2 views of the abdomen COMPARISON: Facility Practice Specialist from 02/11/2016 FINDINGS: There is a small to moderate amount of contrast seen in the ascendingand transverse colon and a very small amount seen in the region of descendingcolon. Scattered small bowel air is seen. There is no evidence of obstruction.Free air cannot be excluded on this supine film. Rotoscoliosis and degenerativechanges seen. IMPRESSION Small to moderate stool burden. No evidence of obstruction. 5:23 PM Anastasiia Castanon MD IMG DX ORDERABLES documented in this encounter Visit Diagnoses Diagnosis Chronic constipation Unspecified constipation Incontinence of feces, unspecified fecal incontinence type Iron deficiency Iron deficiency anemia, unspecified documented in this encounter Care Teams Disk Grinder Relationship Specialty Start Date End Date Nayla Miramontes MD [facility] [address] [place] [address] PCP - General 05/21/11 05/10/21 documented as of this encounter
--- OUTSIDE RECORDS SUMMARY | 2024-03-07 18:57 | XMS_ITS | Encounter Summary ---
Author Organization [facility] Address [facility] [place] [address] Care Team Providers Care Transplant Rn Name Role Phone Nayla Miramontes MD Primary Care Provider [phone] Reason for Visit * Reason Comments Follow-up Encounter Details Date Type Department Care Team (Late st Contact Info) Description 05/26/2016 3:20 PM EST Office Visit [place] [address] Darryl Burgos MD [facility] [place] [address] Chronic pain in left shoulder Social History Tobacco Use Types Packs/Day Years [...] Sign Reading Time Taken Comments Blood Pressure 120/55 05/26/2016 2:58 PM EST Pulse 71 05/26/2016 2:58 PM EST Temperature 36.7 ??C (98 ??F) 05/26/2016 2:58 PM EST Respiratory Rate 18 05/26/2016 2:58 PM EST Oxygen Saturation 98% 05/26/2016 2:58 PM EST Inhaled Oxygen Concentration - - Weight 86.6 kg (191 lb) 05/26/2016 2:58 PM EST Height 167.6 cm (5' 5.98) 05/26/2016 2:58 PM ES T Body Mass Index 30.85 05/26/2016 2:58 PM EST documented in this encounter Patient Instructions * Patient Instructions* Darryl Burgos MD - 05/26/2016 3:20 PM EST 1) Resume every other week Humira, 40 mg for now. ?? 2) Continue twice daily Celebrex for now. 3) Refer to Interventional Radiology for left shoulder injection. 4) Return to follow up in three months. documented in this encounter Progress Notes * Darryl Burgos MD - 05/26/2016 3:20 PM EST REASON FOR VISIT: Follow up for psoriatic arthritis and psoriasis. ? INTERVAL HISTORY: ?? The pt was a 60-year-old female, who returned for a follow up of psoriatic arthritis and psoriasis. The pt noted that since her last visit on February 11, 2016, she was off every other week adalimumab for immunosuppression of her psoriatic arthritis and psoriasis due to her recent hiatal hernia repair surgery on May 082016. She had not resumed adalimumab since the surgery. She felt that her overall neck pain, back pain, and joint pain remained stable while off adalimumab. She did complain of worsening left shoulder pain and decreased range of motion of the left shoulder. Otherwise, she had no fever, chest pain, dyspnea, dysuria, headache, easy bruising, rash, nausea, or richard ydipsia. Her depression had significantly improved after she was put on trazodone during her hospitalization at [facility] on February 102015. ? PAST MEDICAL HISTORY: ?? Psoriatic arthritis ?? [...] S/p laser treatment of diabetic retinopathy ? MEDICATIONS: ?? I reviewed pt's medication entries on electronic record. ? ALLERGIES: ?? Codeine (vomiting) ?? Propoxyphene N-acetaminophen (ulcer) ? SOCIAL HISTORY: ?? Cigarettes: 2 ppd x 12 years (quit in 1984). Alcohol: Rare alcohol use. Pt denied any use of illicit drugs. She was , with two children. Her granddaughter of leukemia in June 2010. She was living with her family. 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 She was currently applying for disability. ? FAMILY HISTORY: ?? ?Mother - Hypertension, hyperlipidemia, hypothyroidism; of cardiac aneurysm at the age of 48. ?? Father - Stroke x two; of a brain tumor at the age of 82. ?? ? PHYSICAL EXAMINATION: ?? Vitals 05/26/2016 SYSTOLIC 120 DIASTOLIC 55 PULSE 71 TEMPERATURE 98 RESPIRATIONS 18 Height (Northern Irish) 5' 5.98 Height (Metric) 167.6 cm Weight (Northern Irish) 191 lbs Weight (Metric) 86.637 kg BODY MASS INDEX 30.85 kg/m2 Pulse Oximetry 98 General - Alert, co-operative, no apparent distress, oriented x 3. ?? HEENT - PERRL, EOMI bilaterally, conjunctiva pink, no sclerae icterus or malar rash. Skin - Smooth and intact, + dysmorphic toe nails, + mild psoriatic lesions on both forearms; no telangiectasia on skin or at all nail margins, sclerodactyly, or bruises. ?? Neuro - + Left eye blind; no motor function deficit. ?? Psych - Affect normal. ? IMPRESSION : ?? 1) Psoriatic arthritis and 2) psoriasis in a 60-year-old female. The pt's psoriatic arthritis and psoriasis was under poor control when she was off adalimumab and Celebrex. She previously failed methotrexate due to inadequate efficacy and worsening nausea. The pt will resume every other week adalimumab injection for immunosuppression. She will be referred to the Interventional Radiologyfor an intra-articular joint injection of the left shoulder with corticosteroid. ? 3) Severe leftward lumbar scoliosis at L2-L3 (26 degrees). The pt's back pain is related to both severe leftward lumbar scoliosis at L2-L3 (26 degrees) and inflammatory back disease. She will focus on symptomatic control with Celebrex for now. She will also need to resume adalimumab for immunosuppression. ? RECOMMENDATIONS: ?? 1) Resume every other week Humira, 40 mg for now. ?? 2) Continue twice daily Celebrex for now. 3) Refer to Interventional Radiology for left shoulder injection. 4) Return to follow up in three months. ? Darryl Burgos MD, PhD documented in this encounter Plan of Treatment Upcoming Encounters Date Type Department Care Team (Late st Contact Info) Description 05/17/2024 2:30 PM EST Office Visit [place] [address] Alcides Bonilla MD [facility] [place] [address] 04/06/2049 9:00 AM EST Hospital Encounter [place] [phone] Harry Guerrero MD [facility] DR [place] [address] documented as of this encounter Results * XR Fluoro Guided [...] pre- procedural time-out was performed as per [facility] protocol. The patient was placed supine on [...] glenohumeral joint space. 2. ??PAIN SCORE: ??Before: 10 ??After: 04/15 3. Fluoroscopy time: 0.28 minutes [...] A pre- proceduraltime-out was performed as per [facility] protocol. The patient was placed supine on [...] glenohumeral joint space. 2. PAIN SCORE: Before: 7/10 After: 04/15 3. Fluoroscopy time: 0.28 minutes [...] left shoulder Pain in joint, shoulder region Chronic pain in left shoulder Pain in joint, shoulder region documented in this encounter Care Teams Transplant Rn Relationship Specialty Start Date End Date Nayla Miramontes MD [address] [place] [address] PCP - General 05/21/11 05/10/21 documented as of this encounter
--- OUTSIDE RECORDS SUMMARY | 2024-03-07 18:57 | XMS_ITS | Encounter Summary ---
Author Organization [facility] [place] [address] Care Team Providers Care Wax Ball Knock Out Worker Name Role Phone Nayla Miramontes MD Primary Care Provider [phone] Encounter Details Date Type Department Care Team (Late st Contact Info) Description 10/17/2016 1:30 PM EDT Office [place] [address] Gloria Pimentel MD [facility] [place] [address] Uncontrolled type 1 diabetes mellitus with other specified complication Social History Tobacco Use Types Packs/Day Years [...] Sign Reading Time Taken Comments Blood Pressure 139/57 10/17/2016 1:20 PM EDT Pulse 73 10/17/2016 1:20 PM EDT Temperature - - Respiratory Rate - - Oxygen Saturation - - Inhaled Oxygen Concentration - - Weight 82.1 kg (181 lb) 10/17/2016 1:20 PM EDT Height 165.1 cm (5' 5) 10/17/2016 1:20 PM EDT Body Mass Index 30.12 10/17/2016 1:20 PM EDT documented in this encounter Progress Notes * Gloria Pimentel MD - 10/17/2016 1:30 PM EDT Endocrinology Clinic Follow-up Visit Reason for Visit: DM type 1, urgent post-hospital follow-up s/p episode of mild DKA HISTORY OF PRESENT ILLNESS: Ms. Roxann Baxter is a 61 y.o. year old lady with history significant for psoriatic arthritis and DM type 1 whom I recently saw for diabetes follow-up 2 weeks ago, at which time she was having variable BG level, sometimes at goal but sometimes spiking to 500-600s, not having hypoglycemia however. She had had a POCT A1c 1 month ago in the 7% range, but in the last couple of weeks has had more frequent BG spikes into the 200s and as high as >600 one time, for reasons unclear to her, but she was feeling like perhaps a psoriatic arthritis flare may be coming on, which has resulted in worsened diabetes control in the past. Also, she struggles with gastroparesis and it was possible that mismatching of her insulin bolus and food transit/absorption may be playing a role. 5 days ago, on 10/13/16, she was admitted to [facility] with a bout of mild DKA which was treated briefly with an insulin gtt and some insulin pump settings were changed. At time of discharge from the hospital, she was arranged for an urgent follow-up with me, which is why she presents today. She was doing fine, but all of the sudden on Thu evening and Thursday BG started getting high to the 500s no apparent reason, had nausea, occasional loose stools but didn't seem to be an illness. Checked ketones which were positive. She tried to used injectable insulin (15 units of short acting at a time). In addition, used pump, changed insulin vial, changed insulin in the reservoir, changed pump site, changed set. Was able to get her BG down this way, but needed to andre it with the injectable short acting insulin and kept rising. Had eaten nonsweetened cottage cheese, tomato throughout all of this. During the hospital stay upon contact with me, i advised increasing her CF from 1:30 to 1:15, and her basal rates were also increased as follows. CR was not changed. Current pump settings MN 0.75 4a 0.875 9:30a 0.900 3:30p 0.950 7p 0.725 CR 1:12 CF 1:15 (increased from 1:30 at my suggestion during hospialization) Since being back at home her FSBG have been as follows: Noon today 281 (has not yet eaten lunch) Pre-B today 92 (only ate cheese for breakfast - 75% fat free [place]) 3h post-D yest 134 Pre-D test 215 Fasting yest 101 11:30p 2d ago 167 Bedtime 9p 214 (corrected with insulin) immed post-D 2d ago 168 Pre-dinner 118 Post lunch 156 Pre-lunch 144 PAST MEDICAL HISTORY: Patient Active Problem List Diagnosis Date Noted ??? Morbid obesity 05/08/2016 ??? MDD (major depressive disorder), recurrent episode, moderate 02/11/2016 ??? Presence of insulin pump 11/08/2015 ??? Pseudophakia of both eyes (OD - 10/17/14, OS - 09/26/14) 11/01/2014 ??? Urinary incontinence 08/22/2014 ??? Diabetic retinopathy 05/19/2014 ??? Vitreous hemorrhage of right eye 05/19/2014 ??? IDDM (insulin dependent diabetes mellitus) 05/19/2014 ??? Dysphagia 07/25/2013 ??? Constipation 07/25/2013 ??? PDR (proliferative diabetic retinopathy) 07/25/2013 ??? Scoliosis 08/13/2012 ??? Chronic low back pain 08/13/2012 ??? Seborrheic keratosis 05/03/2012 ??? Solar [...] 1 diabetes mellitus 03/08/2011 ??? Diabetes mellitus MEDICATIONS: Medications 10/17/16 1332 Medication Sig Taking? atorvastatin (LIPITOR) 40 mg Tablet Yes celecoxib (CELEBREX) 100 mg Capsule Yes gabapentin (NEURONTIN) 300 mg Capsule Take 1 capsule by mouth 3 times daily. Yes Adalimumab (HUMIRA PEN) 40 mg/0.8 mL Pen Injector Kit Inject 0.8 mLs subcutaneously every 14 days. Yes nefazodone (SERZONE) 100 mg Tablet Take 1 tablet by mouth 2 times daily. Yes Diabetic Supplies, [facility]iscellan. [facility] Inject 1 each subcutaneously 4 times daily. [facility] [phone]. Dx Code: 250.01 Yes Diabetic Supplies, Miscellan. [facility] faxed to [employer]. Yes levothyroxine (SYNTHROID) 175 mcg Tablet Take 175 mcg by mouth daily. Yes Diabetic Supplies, Miscellan. [facility] Yes polyethylene glycol (MIRALAX) 17 gram/dose Powder Take 34 g by mouth 2 times daily. Yes bisacodyl (DULCOLAX) [address] 1 suppository rectally daily. Patient taking differently: Place 10 mg rectally as needed. Yes ondansetron (ZOFRAN-ODT) 8 mg Tablet, Rapid Dissolve Take 1 tablet by mouth every 8 hours as neededfor Nausea. Yes lisinopril (PRINIVIL;ZESTRIL) 20 mg Tablet Take 1 tablet by mouth daily. Yes insulin lispro (HUMALOG) injection Inject 65 Units subcutaneously continuous. Via insulin pump Yes insulin glargine (LANTUS) 100 unit/mL vial injection Inject 18 Units subcutaneously daily. 1 vial =10ml = 1,000 units Indications: Type 1 Diabetes Mellitus Yes melatonin 3 mg Tab Take 9 mg by mouth nightly. Yes MULTI-VITAMIN ORAL Take 1 tablet by mouth daily. Reported on 05/26/2016 Yes ALLERGIES: Allergies Allergen Reactions ??? Codeine Phosphate Nausea Only ??? Propoxyphene N-Acetaminophen Nausea Only SOCIAL HISTORY: History Smoking Status ??? Former Smoker ??? Types: Cigarettes ??? Quit date: 05/06/1984 Smokeless Tobacco ??? Never Used FAMILY HISTORY: Family History Relation Problem Age of Onset ??? Father Alcohol Abuse Dementia Depression Mental Illness ??? Sister Alcohol Abuse Anxiety Disorder Depression Mental Illness ??? Brother Alcohol Abuse ??? Neg Hx Amblyopia Diabetes Glaucoma Macular Degeneration Retinal Detachment Strabismus REVIEW OF SYSTEMS: All 12 systems reviewed and negative except as noted per HPI. PHYSICAL EXAM: Vitals Office Visit from 10/17/2016 in Endocrinology Weight - Scale 82.1 kg (181 lb) Height 165.1 cm (5' 5) BSA (Calculated - sq m) 1.94 sq meters BMI (Calculated) 30.2 Heart Rate 73 BP 139/57 Gen: NAD, AAOx3, speaking full sentences, calm pleasant demeanor, mildly overweight habitus ASSESSMENT: 61 yo F with DM type 1 s/p recent bout of mild DKA, basal rates and CF increased following that and seems to be controlling her BG much better. PLAN: --continue current pump settings - seem to be working better. --has tried CGM in the past - insurance has not covered it however. 25 min of this 40 min face to face visit was spent in counseling the patient on DM mgmt. GLORIA PIMENTEL MD [employer] training coordinator Section of Endocrinology [facility] documented in this encounter Plan of Treatment Upcoming Encounters Date Type Department Care Team (Late st Contact Info) Description 05/17/2024 2:30 PM EST Office [place] [address] Alcides Bonilla MD [facility] [place] [address] 04/06/2049 9:00 AM EST Hospital Encounter [place] [address] Harry Guerrero MD [facility] DR [place] [address] documented as of this encounter Visit Diagnoses Diagnosis Uncontrolled type 1 diabetes mellitus with other specified complication documented in this encounter Care Teams Wax Ball Knock Out Worker Relationship Specialty Start Date End Date Nayla Miramontes MD [facility] ANABELLA LÓPEZ [address] [place] [address] PCP - General 05/21/11 05/10/21 documented as of this encounter
--- OUTSIDE RECORDS SUMMARY | 2024-03-07 18:57 | XMS_ITS | Encounter Summary ---
Author Organization [facility] [place] [address] Care Team Providers Care Mailing Machine Assistant Name Role Phone Nayla Miramontes MD Primary Care Provider [phone] Encounter Details Date Type Department Care Team (Late st Contact Info) Description 02/20/2017 [place] [address] Lili Simmons LPN Social History Tobacco Use Types Packs/Day Years [...] encounter Miscellaneous Notes * Telephone Encounter - Lili Simmons LPN - 02/20/2017 9:51 AM EST RTC to Roxann who reports that she is having flare in shoulder. She does want to have a steroid injection in her shoulder as recommended by Dr Burgos. States that the last steroid injection that she had made her blood sugar go up and she landed in the hospital. In the meantime she is wondering if there is something else she can take for the pain. She is also scheduled to see Dr Burgos on March 06. Please advise. +++++++++++++++++++++++++ Claire, Please advise her to either use Tylenol or ibuprofen because she is allergic to different narcotics. I need to know which shoulder before I can write a referral for her to get the injection. ??Since she is on two different insulin, she will need to check her sugar level after her shoulder injection and adjust lispro accordingly. Thanks ++++++++++++++++++++++++++ I have called and left the above message. documented in this encounter Plan of Treatment Upcoming Encounters Date Type Department Care Team (Late st Contact Info) Description 05/17/2024 2:30 PM EST Office Visit Gastroenterology at [place] [phone] Alcides Bonilla MD [facility] [place] [address] 04/06/2049 9:00 AM EST Hospital En[place] [address] Harry Guerrero MD [facility] [place] [address] documented as of this encounter Visit Diagnoses Not on filedocumented in this encounter Care Teams Mailing Machine Assistant Relationship Specialty Start Date End Date Nayla Miramontes MD J[address] [place] [address] PCP - General 05/21/11 05/10/21 documented as of this encounter
--- OUTSIDE RECORDS SUMMARY | 2024-03-07 18:57 | XMS_ITS | Encounter Summary ---
Author Organization [facility] [place] [address] Care Team Providers Care Cephalometric Technician Name Role Phone Nayla Miramontes MD Primary Care Provider [phone] Reason for Visit * Reason Comments Follow Up Surgery Encounter Details Date Type Department Care Team (Latest Contact Info) Description 06/09/2016 3:00 PM EST Office [place] [address] Sonja Chavez MD [facility] GENERAL [place] [address] Gastroesophageal reflux disease, esophagitis presence not specified Social History Tobacco Use Types Packs/Day Years [...] Sign Reading Time Taken Comments Blood Pressure - - Pulse - - Temperature - - Respiratory Rate - - Oxygen Saturation - - Inhaled Oxygen Concentration - - Weight 85 kg (187 lb 8 oz) 06/09/2016 2:59 PM ES T Height - - Body Mass Index 30.28 05/26/2016 2:58 PM EST documented in this encounter Progress Notes * Lou Maxwell MD - 06/09/2016 3:00 PM EST Clinic Note CHIEF COMPLAINT: Post-op follow up HPI: Roxann Baxter, 60 y.o. female, with HTN, HLD, hypothyroidism, and type I DM who is s/p lap toupet paraesophageal hernia repair and here for her one month follow up. Her recovery has gone well. She has no more heartburn and stopped taking PPI. This is a big change since surgery. She has had heartburn for 12 years. She has no issues with swallowing, however she is still very cautious with what she eats. Since surgery, she has continued on a liquid and soft diet. She denies nausea, vomiting, fever, chills, chest pain, or diarrhea. REVIEW OF SYSTEMS: complete 10 system ROS performed with pertinent findings below. PMH/PSH: Past Medical History: Diagnosis Date ??? Anxiety ??? Arthritis ??? Asthma ??? Cortical cataract 05/05/2011 ??? Diabetes mellitus ??? GERD (gastroesophageal reflux disease) ??? Hyperlipidemia ??? Hypertension ??? PDR (proliferative diabetic retinopathy) 05/25/2011 ??? Skin disease ??? Thyroid disease Past Surgical History: Procedure Laterality Date ??? CATARACT REMOVAL Left 09/26/2014 Dr Villalba ??? CATARACT REMOVAL 01/17/2015 OD - Dr Villalba ??? FINGER SURGERY ??? PRO COLONOSCOPY, DIAGNOSTIC 09/13/2013 COLONOSCOPY, DIAGNOSTIC performed by Marie Zamora MD at [facility] ENDOSCOPY ??? PRO COLONOSCOPY, DIAGNOSTIC 01/10/2014 COLONOSCOPY, DIAGNOSTIC performed by Marie Zamora MD at [facility] ENDOSCOPY ??? PRO LAPAROSCOPY, SURG, REPAIR PARAESOPHAGEAL HERNIA, W/O IMPLANTATION OF MESH N/A 05/08/2016 LAPAROSCOPIC PARAESOPHAGEAL HERNIA REPAIR W/FUNDOPLASTY, W/O MESH (WRVU 26.6) performed by Sonja Chavez MD at [facility] MAIN OR ??? PRO UPPER GI ENDOSCOPY, BIOPSY 04/27/2012 UPPER GASTROINTESTINAL ENDOSCOPY,WITH BIOPSY SINGLE OR MULTIPLE performed by Luis Bucio MD [facility] ENDOSCOPY ??? PRO UPPER GI ENDOSCOPY, BIOPSY N/A 01/01/2016 EGD WITH BIOPSY performed by Giuseppe Caban MD at [facility] ENDOSCOPY ??? PRO UPPER GI ENDOSCOPY, DIAGNOSTIC N/A 04/24/2014 EGD, UPPER GI ENDOSCOPY performed by Harry Guerrero MD at [facility] ENDOSCOPY ??? PRO VITRECTOMY,FOCAL LASER RX RETINA 05/16/2013 OS VITRECTOMY, PARS PLANA, LASER performed by Dany Young MD at [facility] MAIN OR ??? RETINAL LASER SURGERY ??? UPPER GI ENDOSCOPY, EXAM 04/25/2011 UPPER GI ENDOSCOPY performed by MARIA DEL CARMEN BOB at [facility] ENDOSCOPY MEDICATIONS: Current Outpatient Prescriptions on File Prior to Visit Medication Sig Dispense Refill ??? atorvastatin (LIPITOR) 40 mg Tablet ??? celecoxib (CELEBREX) 100 mg Capsule ??? gabapentin (NEURONTIN) 300 mg Capsule Take 1 capsule by mouth 3 times daily. 90 capsule 11 ??? Adalimumab (HUMIRA PEN) 40 mg/0.8 mL Pen Injector Kit Inject 0.8 mLs subcutaneously every 14 days. 4 kit 1 ??? nefazodone (SERZONE) 100 mg Tablet Take 1 tablet by mouth 2 times daily. 30 tablet 0 ??? Diabetic Supplies, Miscellan. [facility] Inject 1 each subcutaneously 4 times daily. Faxed pump and supply order to [employer] at [phone]. Dx Code: 250.01 100 each 12 ??? Diabetic Supplies, Miscellan. [facility] CGM faxed to [employer]. 600 each 3 ??? levothyroxine (SYNTHROID) 175 mcg Tablet Take 175 mcg by mouth daily. ??? Diabetic Supplies, Miscellan. [facility] faxed to [facility] 100 each 12 ??? polyethylene glycol (MIRALAX) 17 gram/dose Powder Take 34 g by mouth 2 times daily. 255 g 3 ??? bisacodyl (DULCOLAX) [address] 1 suppository rectally daily. (Patient taking differently: Place 10 mg rectally as needed.) 60 suppository 3 ??? ondansetron (ZOFRAN-ODT) 8 mg Tablet, Rapid Dissolve Take 1 tablet by mouth every 8 hours as needed for Nausea. 20 tablet 11 ??? lisinopril (PRINIVIL;ZESTRIL) 20 mg Tablet Take 1 tablet by mouth daily. 30 tablet ??? insulin lispro (HUMALOG) injection Inject 65 Units subcutaneously continuous. Via insulin pump ??? insulin glargine (LANTUS) 100 unit/mL vial injection Inject 18 Units subcutaneously daily. 1 vial = 10ml = 1,000 units Indications: Type 1 Diabetes Mellitus 10 mL 5 ??? melatonin 3 mg Tab Take 9 mg by mouth nightly. ??? MULTI-VITAMIN ORAL Take 1 tablet by mouth daily. Reported on 05/26/2016 No current facility-administered medications on file prior to visit. ALLERGIES: Allergies Allergen Reactions ??? Codeine Phosphate Nausea Only ??? Propoxyphene N-Acetaminophen Nausea Only FAMILY HISTORY: Family History Problem Relation Age of Onset [...] Amblyopia Neg Hx ??? Strabismus Neg Hx SOCIAL HISTORY: Social History Social History ??? Marital status: Spouse name: N/A ??? Number of children: N/A ??? Years of education: N/A Occupational History ??? Not on file. Social History Main Topics ??? Smoking status: Former Smoker Types: Cigarettes Quit date: 05/06/1984 ??? Smokeless tobacco: Never Used ??? Alcohol use No Comment: once a year ??? Drug use: No ??? Sexual activity: Not Currently Partners: Male control/ protection: Abstinence Other Topics Concern ??? Not on file Social History Narrative PHYSICAL EXAM: VITALS: There were no vitals filed for this visit. Physical Exam Constitutional: She is oriented to person, place, and time. She appears well- developed and well-nourished. No distress. Eyes: Conjunctivae are normal. Pupils are equal, round, and reactive to light. No scleral icterus. Cardiovascular: Normal rate, regular rhythm and normal heart sounds. Pulmonary/Chest: Effort normal and breath sounds normal. Abdominal: Soft. She exhibits no distension and no mass. There is no tenderness. There is no rebound and no guarding. Port sites well healed Neurological: She is alert and oriented to person, place, and time. Skin: Skin is warm and dry. Psychiatric: She has a normal mood and affect. LABS: None IMAGING: Xr Fluoro Barium SwallowResult Date: 05/13/2016 FINDINGS: Logistics Tech radiograph demonstrates partially imaged nonobstructive bowel gas pattern. There isairless lung in the left base, likely representing atelectasis and postsurgical change. The esophagus distends well. No contrast extravasation is seen with water-soluble contrast or thin barium. The g astroesophageal junction is narrow, compatible with fundoplication wrap. Primary and secondary peristaltic waves do not clear the esophagus. Tertiary waves are noted throughout the esophagus. The esophagus clears slowly in upright positioning via gravity The airless lung in the left lung base limits identification of the exact position of the gastroesophageal junction, however no recurrent hiatalhernia is identified. Impression: 1. No evidence of leak. 2. Marked esophageal dysmotility. ASSESSMENT: 60 y.o., female, with HTN, HLD, hypothyroidism, and type I DM who is s/p lap toupet paraesophageal hernia repair. She returns one month following lap toupet paraesophageal hernia repair. Overall, she has recovered well. Her heartburn and regurgitation are completely gone and she is off medications. She has no significant problems with dysphagia or inability to belch. Her wound sites are well healed without signs of infection or hernia. Overall, she is doing very well and she knows to contact us if further problems develop. Lou Maxwell MD 06/09/2016 * Sonja Chavez MD - 06/09/2016 3:00 PM EST Ms. Baxter returns one month following her laparoscopic paraesophageal hernia repair and fundoplication. Overall, she has recovered well. Her heartburn and regurgitation are completely gone and she is off medications. She has no significant problems with dysphagia or inability to belch. Her wound sites are well healed without signs of infection or hernia. Overall, she is doing very well and she knows to contact me if further problems develop. documented in this encounter Plan of Treatment Upcoming Encounters Date Type Department Care Team (Late st Contact Info) Description 05/17/2024 2:30 PM EST Office [place] [address] Alcides Bonilla MD [facility] DR GASTROENTER[place] [address] 04/06/2049 9:00 AM EST Hospital En[place] [address] Harry Guerrero MD [facility] DR GASTROENTEROLOGY [place] [address] documented as of this encounter Visit Diagnoses Diagnosis Gastroesophageal reflux disease, esophagitis presence not specified documented in this encounter Care Teams Cephalometric Technician Relationship Specialty Start Date End Date Nayla Miramontes MD [employer] ANABELLA LÓPEZ [facility] [address] [place] [address] PCP - General 05/21/11 05/10/21 documented as of this encounter
--- OUTSIDE RECORDS SUMMARY | 2024-03-07 18:57 | XMS_ITS | Encounter Summary ---
Author Organization [facility] [place] [address] Care Team Providers Care Speech Pathologist Name Role Phone Nayla Miramontes MD Primary Care Provider [phone] Encounter Details Date Type Department Care Team (Late st Contact Info) Description 03/13/2017 Orders Only Rheumatology at [place] [phone] Darryl Burgos MD [facility] RHEUMATOLOGY DEPT. [place], [place] [id number] Social History Tobacco Use Types Packs/Day Years [...] 2:30 PM EST Office [place] [address] Alcides Bonilla MD [facility] [place] [address] 04/06/2049 9:00 AM EST Hospital [place] [address] Harry Guerrero MD [facility] DR [place] [address] documented as of this encounter Visit Diagnoses Not on filedocumented in this encounter Care Teams Speech Pathologist Relationship Specialty Start Date End Date Nayla Miramontes MD [address] [place] [address] [facility] [address] [place] [address] PCP - General 05/21/11 05/10/21 documented as of this encounter
--- OUTSIDE RECORDS SUMMARY | 2024-03-07 18:57 | XMS_ITS | Encounter Summary ---
Author Organization [facility] [place] [address] Care Team Providers Care Drawer Liner Name Role Phone Nayla Miramontes MD Primary Care Provider [phone] Reason for Visit * Reason Onset Date Comments Other 05/25/2017 Medication Sisi tance Program-Walk IN-Appl to pt, Appl to , Appl to Co Encounter Details Date Type Department Care Team (Late st Contact Info) Description 05/25/2017 Telephone Care Management [facility] [place] [phone] Ann Barr Other (Medication Assistance Program-Walk IN-Appl to pt, Appl to , Appl to Co) Social History Tobacco Use Types Packs/Day Years [...] encounter Miscellaneous Notes * Telephone Encounter - Ann Barr - 05/25/2017 4:10 PM EST Medication Assistance Program-Walk IN-Appl to pt, Appl to , Appl to Co Roxann came into [facility] today-requested assistance with cost of Humira. Pt completed her section. Pt brought Dr section to Darryl Burgos and returned it to our office. I received the application and prescription for a 90-day supply of Humira. I had them faxed to [employer]. [id number] documented in this encounter Plan of Treatment Upcoming Encounters Date Type Department Care Team (Late st Contact Info) Description 05/17/2024 2:30 PM EST Office Visit [place] [phone] [facility] [place] [address] 04/06/2049 9:00 AM EST Hospital Encounter [place] [phone] [facility] [place] [address] documented as of this encounter Visit Diagnoses Not on filedocumented in this encounter Care Teams Drawer Liner Relationship Specialty Start Date End Date Nayla Miramontes MD [facility] ANABELLA LÓPEZ [address] [place] [address] PCP - General 05/21/11 05/10/21 documented as of this encounter
--- OUTSIDE RECORDS SUMMARY | 2024-03-07 18:57 | XMS_ITS | Encounter Summary ---
Author Organization [facility] Address [facility] [place] [address] Care Team Providers Care Principal Gifts Officer Name Role Phone Nayla Miramontes MD Primary Care Provider [phone] Reason for Visit * Reason Comments Follow-up Encounter Details Date Type Department Care Team (Late st Contact Info) Description 03/09/2017 1:00 PM EST Office [place] [address] Anastasiia Castanon MD [facility] [place] [address] Chronic constipation; Incontinence of feces, unspecified fecal incontinence type; Iron deficiency Social History Tobacco Use Types Packs/Day Years [...] Sign Reading Time Taken Comments Blood Pressure 118/98 03/09/2017 12:41 PM EST Pulse 76 03/09/2017 12:41 PM EST Temperature - - Respiratory Rate - - Oxygen Saturation - - Inhaled Oxygen Concentration - - Weight 84.2 kg (185 lb 9.6 oz) 03/09/2017 12:41 PM EST Height 167.6 cm (5' 6) 03/09/2017 12:41 PM EST Body Mass Index 29.96 03/09/2017 12:41 PM EST documented in this encounter Patient Instructions * Patient Instructions* Anastasiia Castanon MD - 03/09/2017 1:00 PM EST (1) Blood tests today (2) Abdominal X ray ---> I will send you a message in my DH (if constipated will do a clean out and try to get amitiza again) (3) Start fiber: Citrucel (use the regular) start 1 serving in the morning to try bulk up the stool (4) Possible test for bacterial balance (overgrowth) - breath test breathing into a tube - try an antibiotic like flagyl (5) Possible test of the muscles of the pelvic floor (6) Possible colonoscopy repeat documented in this encounter Progress Notes * Anastasiia Castanon MD - 03/09/2017 1:00 PM EST GI New Patient Visit PCP: Nayla Miramontes MD Referring provider: same as above Last GI visit date: 03/04/2016 Reason for visit: Patient's primary concern today: HPI This is a 61 year old female with a PMHx of GERD with erosive esophagitis, 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 She is s/p a fundoplication and paraesophageal hernia repair in May 2016. She is from [place] and [facility] in [place], [place]. Patient Active Problem List Diagnosis Code ??? [...] H43.12 ??? PSC (posterior subcapsular cataract), bilateral [id number] ??? Type 1 diabetes mellitus E10.9 ??? [...] ??? Pseudophakia of both eyes (OD - 10/17/15, OS - 09/26/15) Z96.1 ??? Presence of insulin pump Z96.41 ??? MDD (major depressive disorder), recurrent episode, moderate F33.1 ??? Morbid obesity E66.01 ??? Fecal incontinence R15.9 I have been constipated for 1 month. Was on Amitiza, but lost her insurance. Currently on Medicare. Tried to get part D but spend down was very high. Getting medication through [facility]. Amitiza did help; switched to 2 tablets in the AM and BID miralax, better evacuation. In February 2016 had to start cutting back due to insurance loss, but was still having a BM every day or every other day, bristol type 3-4. Easy to pass; not straining. About a month ago bowel sx changed. Had about 10 days without a BM. Lower abdomen pain, cramping. Camped out on the toilet, but no BM. Unclear trigger. No travel, change in routine, diet or new medications Around this time had a psoriatic arthritis flare; was taking higher doses of NSAIDs. Then started laxatives, 2 bottles of Mg citrate - resulted in brown liquid. Has used MOM, suppositories, Mg citrate. Not sure what to do. Tried an enema and Mg citrate x 1 over the weekend. This resulted in diarrhea for a few hours. Paoli type 5 to 7 stools. No melena or hematochezia currently. One episode of BRBPR in November x 1 when having diarrhea/fever/nausea x 2 days, has not had any since. Worried about fecal impaction. Taking miralax once a day in the morning C/o fecal incontinence x 2 years, worsening. Clear liquid, copious amounts, throughout the day and overnight. Depends get soaked. No incontinence of formed stool. Sometimes has awareness (urge), but often times just comes out. Has passive fecal incontinence, overnight. Also has urinary incontinence. Thyroid function monitored by endocrine Debi on med list - rarely uses this Drinks coffee day No metformin Grandfather with? Stomach ca With respect to her reflux problems, she has been doing great. No heartburn or acid reflux. No medications. Dysphagia is better, but still a chronic problem. She has to chew her food very well and keep food moist. Eats slowly. If she eats too fast, food has gotten stuck. Some nausea; infrequent retching. No vomiting. Feels she needs a psychiatrist. Meds aren't working as well as when they first started. Helping to raise her grandson. DIET Coffee- 1-2 cups in the morning Breakfast/Lunch - cream of wheat Lunch - crackers/cheese Dinner - pork chop, potatoes, spinach Snacks - popcorn, lays No sorbitol Rare soda RECENT TESTING 1. EGD 04/27/12: revealed a [...] barium tablet passed easily into the stomach. ?? MEDICATION/DIET TRIALS 1. Nexium - helps reflux. 2. Zofran - some help with nausea. 3. Tigan - some help with nausea. 4. MiraLAX - some help with constipation. 5. Amitiza - helps constipation. 6. Linaclotide - caused severe diarrhea. 7. Bethanechol - no significant help with dysphagia. Current Outpatient Prescriptions: ??? melatonin 5 mg Tablet, Take 15 mg by mouth nightly., Disp: , Rfl: ??? magnesium citrate Solution, Take 295 mLs by mouth 2 times daily as needed., Disp: 590 mL, Rfl: 5 ??? sodium phosphates (FLEET) Enema, Place 1 Bottle rectally once as needed for Constipation for upto 1 dose., Disp: 135 mL, Rfl: 3 ??? Diabetic Supplies, Miscellan. [facility], O for Infusion sets faxed to Yvonne, Disp: 100 each, Rfl: 12 ??? busPIRone (BUSPAR) 10 mg Tablet, Take 10 mg by mouth 2 times daily., Disp: , Rfl: ??? insulin glargine (LANTUS) Solution, Inject 10 Units subcutaneously 2 times daily. Needed for insulin pump failure Indications: type 1 diabetes mellitus, Disp: 10 mL, Rfl: 0 ??? atorvastatin (LIPITOR) 40 mg Tablet, Take 40 mg by mouth daily., Disp: , Rfl: ??? celecoxib (CELEBREX) 100 mg Capsule, Take 100 mg by mouth 2 times daily., Disp: , Rfl: ??? nefazodone (SERZONE) 100 mg Tablet, Take 1 tablet by mouth 2 times daily., Disp: 30 tablet, Rfl: 0 ??? Diabetic Supplies, Miscellan. [facility], Inject 1 each subcutaneously 4 times daily. Faxed pump and supply order to [employer] at [phone]. Dx Code: 250.01, Disp: 100 each, Rfl: 12 ??? levothyroxine (SYNTHROID) 175 mcg Tablet, Take 175 mcg by mouth daily., Disp: , Rfl: ??? Diabetic Supplies, Miscellan. [facility] faxed to [facility], Disp: 100 each, Rfl: 12 ??? polyethylene glycol (MIRALAX) 17 gram/dose Powder, Take 34 g by mouth 2 times daily. (Patient taking differently: Take by mouth 3 times daily.), Disp: 255 g, Rfl: 3 ??? bisacodyl (DULCOLAX) 10 mg Suppository, Place [...] mouth daily., Disp: 30 tablet, Rfl: ??? insulin lispro (HUMALOG) injection, Inject 65 Units subcutaneously continuous. Via insulin pump, Disp: , Rfl: ??? MULTI-VITAMIN ORAL, Take 1 tablet by mouth daily. Reported on 05/26/2016, Disp: , Rfl: ??? Adalimumab (HUMIRA PEN) 40 mg/0.8 mL Pen Injector Kit, Inject 0.8 mLs subcutaneously every 14 days., Disp: 6 kit, Rfl: 3 Allergies Allergen Reactions ??? Codeine Phosphate Nausea Only ??? Propoxyphene N-Acetaminophen Nausea Only PAST MEDICAL HISTORY: ?? Psoriatic arthritis ?? [...] S/p laser treatment of diabetic retinopathy ?? Past Surgical History: Procedure Laterality Date ??? CATARACT REMOVAL Left 09/26/2014 Dr Villalba ??? CATARACT REMOVAL 01/17/2015 OD - Dr Villalba ??? FINGER SURGERY ??? PRO COLONOSCOPY, DIAGNOSTIC 09/13/2013 COLONOSCOPY, DIAGNOSTIC performed by Marie Zamora MD at [facility] ENDOSCOPY ??? PRO COLONOSCOPY, DIAGNOSTIC 01/10/2014 COLONOSCOPY, DIAGNOSTIC performed by Marie Zamora MD at [facility] ENDOSCOPY ??? PRO LAPAROSCOPY, SURG, REPAIR PARAESOPHAGEAL HERNIA, W/O IMPLANTATION OF MESH N/A 05/08/2016 LAPAROSCOPIC PARAESOPHAGEAL HERNIA REPAIR W/FUNDOPLASTY, W/O MESH (WRVU 26.6) performed by Sonja Chavez MD at [facility] MAIN OR ??? PRO UPPER GI ENDOSCOPY, BIOPSY 04/27/2012 UPPER GASTROINTESTINAL ENDOSCOPY,WITH BIOPSY SINGLE OR MULTIPLE performed by Luis Bucio MD [facility] ENDOSCOPY ??? PRO UPPER GI ENDOSCOPY, BIOPSY N/A 01/01/2016 EGD WITH BIOPSY performed by Giuseppe Caban MD at [facility] ENDOSCOPY ??? PRO UPPER GI ENDOSCOPY, DIAGNOSTIC N/A 04/24/2014 EGD, UPPER GI ENDOSCOPY performed by Harry Guerrero MD at [facility] ENDOSCOPY ??? PRO VITRECTOMY,FOCAL LASER RX RETINA 05/16/2013 OS VITRECTOMY, PARS PLANA, LASER performed by Dany Young MD at [facility] MAIN OR ??? RETINAL LASER SURGERY ??? UPPER GI ENDOSCOPY, EXAM 04/25/2011 UPPER GI ENDOSCOPY performed by MARIA DEL CARMEN BOB at [facility] ENDOSCOPY Social History Social History ??? Marital status: [...] ??? Not on file Social History Narrative Family History Problem Relation Age of Onset [...] Neg Hx ??? Colorectal Cancer Neg Hx Review of Systems Constitutional: No fevers/chills, night sweats; c/o poor appetite and fatigue Eyes: No scleral icterus; no vision in left eye Ears/Nose/Throat: No oral ulcers, sore throat, hoarseness, dysphagia or odynophagia Cardiovascular: No chest pain, palpitations or lower extremity edema Respiratory: No cough, wheezing or shortness of breath Gastrointestinal: See HPI Genitourinary: C/o urinary incontinence Neurologic: C/o numbness or tingling, poor insomnia Psychiatric: C/o severe depression Skin/Integumentary: Psoriasis Musculoskeletal: H/o chronic joint pain Endocrine: No cold or heat intolerance Hematologic/Lymphatic: No easy bleeding, bruising, lumps or bumps The remainder of ROS are negative except as above. BP (!) 118/98 Pulse 76 Ht 167.6 cm (5' 6) Wt 84.2 kg (185 lb 9.6 oz) LMP (LMP Unknown) BMI 29.96 kg/m2 Physical exam: Constitutional: Well appearing, NAD, AAO x 3 Eyes: anicteric sclera Mouth/Throat: MMM, no erythema, oral ulcers, exudates or lesions Neck: supple, no cervical LAD, no thyromegaly Cardiovascular: S1, S2, RRR no m/r/g, no peripheral edema Respiratory: CTABL no w/r/r Gastrointestinal: soft, diffuse mild abdominal tenderness, ND, +BS, insulin pump present Rectal exam: grossly intact sensation, mild to moderately weak resting tone, able to augment squeeze voluntarily, no visible hemorrhoids or fissures or tenderness, no stool in the vault, adequate push maneuver with relaxation of the external sphincter Neurologic: CN 2-12 grossly intact Psychiatric: pleasant, judgement and insight intact Skin: no jaundice Data: As above Impression: 61 yo female with IDDM type 1 x 40+ years c/b retinopathy and neuropathy, psoriasis with psoriatic arthritis, refractory GERD with esophagitis and esophageal dysmotility s/p fundoplication with repair of paraesophageal hernia 05/2016, mild gastroparesis and chronic constipation kindly presents for follow-up. Fortunately she has had great results from anti-reflux surgery and her primaryproblem at this time is with changes in her bowel habits described as constipation (by which she means infrequent stools requiring laxative use that results in loose stools) along with progressive fecal incontinence of loose, watery stool and clear liquid that is often passive. Rectal exam shows weakness of the IAS but no fecal impaction. She is up to date with screening colonoscopy (3 years ago)but prep was only fair. Possible overflow diarrhea and incontinence. Consider diabetic diarrhea 2/2 to autonomic neuropathy, dysmotility and bacterial imbalance (overgrowth). Also consider pancreatic exocrine insufficiency,though this is much less common. Prior testing negative for celiac disease. Suspect weakness of IASand decreased sensation 2/2 to diabetes. Plan: (1) Blood tests today: CBC, CRP, ferritin, iron/TIBC, folate, B12 (2) Abdominal X ray to evaluate stool burden: Likely plan for bowel clean-out before resuming a bowel regimen (3) Start fiber: Citrucel (use the regular) start 1 serving in the morning to try bulk up the stool (4) If incontinence persists, will try daily suppository or enema after breakfast (5) Consider breath test for SIBO (6) Consider colonoscopy (7) Anticipate we will proceed with ARM + BET depending on response to the above Follow up in 3 months. The risks, benefits and alternatives were discussed with the patient who understands and agrees with above. Anastasiia Castanon MD 03/14/17 documented in this encounter Plan of Treatment Upcoming Encounters Date Type Department Care Team (Late st Contact Info) Description 05/17/2024 2:30 PM EST Office [place] [address] Alcides Bonilla MD [facility] [place] [address] 04/06/2049 9:00 AM EST Hospital Encounter [place] [address] Harry Guerrero MD [facility] [place] [address] Scheduled Orders Name Type Priority Associated Diagnoses Orde r Schedule COLONOSCOPY Procedures Routine Incontinence of feces, unspecified fecal incontinence type Iron deficiency Ordered: 03/10/2017 documented as of this encounter Procedures Procedure Name Priority Date/Time Associated Diagnosis Comments CRP, ACUTE INFLAMMATION Routine 03/09/2017 2:27 PM EST Chronic constipation Incontinence of feces, unspecified fecal incontinence type Iron deficiency HEMOGRAM Routine 03/09/2017 2:27 PM EST Chronic constipation Incontinence of feces, unspecified fecal incontinence type Iron deficiency DIFFERENTIAL, AUTOMATED Routine 03/09/2017 2:27 PM EST Chronic constipation Incontinence of feces, unspecified fecal incontinence type Iron deficiency IRON AND TIBC Routine 03/09/2017 2:27 PM EST Chronic constipation Incontinence of feces, unspecified fecal incontinence type Iron deficiency CBC (WITH DIFF) Routine 03/09/2017 2:27 PM EST Chronic constipation Incontinence of feces, unspecified fecal incontinence type Iron deficiency FOLATE, SERUM Routine 03/09/2017 2:27 PM EST Chronic constipation Incontinence of feces, unspecified fecal incontinence type Iron deficiency FERRITIN Routine 03/09/2017 2:27 PM EST Chronic constipation Incontinence of feces, unspecified fecal incontinence type Iron deficiency VITAMIN B12 Routine 03/09/2017 2:27 PM EST Chronic constipation Incontinence of feces, [...] TECHNIQUE: 2 views of the abdomen COMPARISON: [employer] from 02/11/2016 FINDINGS: There is a small [...] TECHNIQUE: 2 views of the abdomen COMPARISON: [employer] from 02/11/2016 FINDINGS: There is a small [...] PM Anastasiia Castanon MD IMG DX ORDERABLES * Differential, Automated (03/09/2017 2:27 PM EST) Neutrophil % 44.5 % [facility] Neutrophil Absolute 2.23 1.70 - 6.10 x10(3)/[facility] Lymph % 46.3 % [facility] Lymphocytes Abs 2.3 0.9 - 3.2 x10(3)/[facility] Monocyte % 5.6 % [facility] Monocyte Abs 0.3 0.3 - 0.9 x10(3)/[facility] Eos % 2.6 % [facility] Eosinophils Abs 0.1 0.0 - 0.4 x10(3)/[facility] Basophil % 0.8 % [facility] Baso Absolute 0.0 0.0 - 0.1 x10(3)/[facility] Immature Gran % 0.20 % [facility] Comment: Immature granulocytes(IG's)percentage and absolute count will include metamyelocytes, myelocytes, and promyelocytes. Blood smears from CBCs yielding IG's will be scanned manually for concordance. If this scan disagrees with the automated IG or if promyelocytes are noted, a manual differential will be performed. Immature Gran Absolute 0.01 0.00 - 0.04 x10(3)/[facility] Blood specimen (specimen) 03/09/2017 2:27 PM EST 03/09/2017 2:31 PM EST Narrative Resulting Agency Comment Spec In Lab Anastasiia Castanon MD HEMATOLOGY ORDERABLE S [facility] [place] [address] * Hemogram (03/09/2017 2:27 PM EST) [facility] White Blood Cell 5.0 4.0 - 9.5 x10(3)/[facility] Red Blood Cell 4.37 4.00 - 5.21 x10(6)/[facility] Hemoglobin 12.7 11.7 - 15.5 gm/dL [facility] Hematocrit 38.6 35.7 - 45.8 % [facility] Mean Cell Volume 88.3 82.6 - 94.4 fL [facility] Mean Cell Hemoglobin 29.1 27.1 - 32.0 pg [facility] Mean Cell Hemoglobin Concentration 32.9 31.7 - 35.0 gm/dL [facility] Platelet 242 145 - 357 x10(3)/[facility] RDW Standard Deviation 42.5 37.0 - 46.0 [facility] RDW coefficient of variation 13.0 11.5 - 14.1 % [facility] Mean Platelet Volume 8.8 7.6 - 12.9 fL [facility] NRBC% auto 0.0 % [facility] NRBC Absolute 0.000 0.000 - 0.000 x10(3)/[facility] Blood specimen (specimen) 03/09/2017 2:27 PM EST 03/09/2017 2:31 PM EST Narrative Resulting Agency Comment Spec In Lab Anastasiia Castanon MD HEMATOLOGY ORDERABLE S [facility] [place] [address] * CRP, acute inflammation (03/09/2017 2:27 PM EST) [facility] C-Reactive Protein 2.0 <=4.9 mg/L [facility] Blood specimen (specimen) 03/09/2017 2:27 PM EST 03/09/2017 2:31 PM EST Narrative Resulting Agency Comment Spec In Lab Anastasiia Castanon MD CHEMISTRY ORDERABLES Performing Organization Address [facility] Co de Phone Number [facility] [place] [address] * Folate, serum (03/09/2017 2:27 PM EST) [facility] Folate 7.9 4.8 - 24.2 ng/mL [facility] Blood specimen (specimen) 03/09/2017 2:27 PM EST 03/09/2017 2:31 PM EST Narrative Resulting Agency Comment Spec In Lab Anastasiia Castanon MD CHEMISTRY ORDERABLES Performing Organization Address [facility] Co de Phone Number [facility] [place] [address] * Vitamin B12 (03/09/2017 2:27 PM EST) [facility] Vitamin B12 406 232 - 1,245 pg/mL [facility] Comment: Please note: Effective 03/04/2017, the reference interval and the lower limit of detection for Vitamin B12 have been updated due to a new reagent formulation. Blood specimen (specimen) 03/09/2017 2:27 PM EST 03/09/2017 2:31 PM EST Narrative Resulting Agency Comment Spec In Lab Anastasiia Castanon MD CHEMISTRY ORDERABLES Performing Organization Address City/[facility] Co de Phone Number [facility] [place] [address] * Iron and TIBC (03/09/2017 2:27 PM EST) [facility] Iron 61 30 - 150 mcg/dL [facility] TIBC 258 250 - 450 mcg/dL [facility] Iron Saturation 24 20 - 50 % [facility] Blood specimen (specimen) 03/09/2017 2:27 PM EST 03/09/2017 2:31 PM EST Narrative Resulting Agency Comment Spec In Lab Anastasiia Castanon MD CHEMISTRY ORDERABLES Performing Organization Address [facility] Co de Phone Number [facility] [place] [address] * (ABNORMAL) Ferritin (03/09/2017 2:27 PM EST) Ferritin 26(L) 30 - 400 ng/mL [facility] Comment: Pediatric reference ranges not verified at [facility], interpret with caution. Reference ranges for females greater than 50 years of age approach values for men, i.e., 30-400 ng/mL. Blood specimen (specimen) 03/09/2017 2:27 PM EST 03/09/2017 2:31 PM EST Narrative Resulting Agency Comment Spec In Lab Anastasiia Castanon MD CHEMISTRY ORDERABLES Performing Organization Address [facility] Co de Phone Number [facility] [place] [address] documented in this encounter Visit Diagnoses Diagnosis Chronic constipation Unspecified constipation Incontinence of feces, unspecified fecal incontinence type Iron deficiency Iron deficiency anemia, unspecified Chronic constipation Unspecified constipation Incontinence of feces, unspecified fecal incontinence type Iron deficiency Iron deficiency anemia, unspecified documented in this encounter Care Teams Principal Gifts Officer Relationship Specialty Start Date End Date Nayla Miramontes MD [facility] [address] [place] [address] PCP - General 05/21/11 2 documented as of this encounter
--- OUTSIDE RECORDS SUMMARY | 2024-03-07 18:57 | XMS_ITS | Encounter Summary ---
Author Organization [facility] [place] [address] Care Team Providers Care X Ray Service Technician Name Role Phone Nayla Miramontes MD Primary Care Provider [phone] Encounter Details Date Type Department Care Team (Late st Contact Info) Description 01/27/2017 Notes Only Endocrinology at [facility] [place] [id number] Alyssa Brown LNA Social History Tobacco Use [...] as of this encounter Progress Notes * Alyssa Brown CMA - 01/27/2017 10:46 AM EDT Called [facility] to get the prescription for this patient taken care of they informed me the order was canceled due to non visit and I gave them a verbal letting them know that that was not the case and to fax us the paperwork for her since she was in the office today.paperwork should be faxed to today. documented in this encounter Plan of Treatment Upcoming Encounters Date Type Department Care Team (Late st Contact Info) Description 05/17/2024 2:30 PM EST Office Visit [place] [address] Alcides Bonilla MD [facility] [place] [place] [address] 04/06/2049 9:00 AM EST Hospital Encounter [place] [address] Harry Guerrero MD [facility] [place] [address] documented as of this encounter Visit Diagnoses Not on filedocumented in this encounter Care Teams X Ray Service Technician Relationship Specialty Start Date End Date Nayla Miramontes MD [facility] ANABELLA LÓPEZ [facility] [address] [place] [address] PCP - General 05/21/11 05/10/21 documented as of this encounter
--- OUTSIDE RECORDS SUMMARY | 2024-03-07 18:57 | XMS_ITS | Encounter Summary ---
Author Organization [facility] [place] [address] Care Team Providers Care Composite Boat Builder Name Role Phone Nayla Miramontes MD Primary Care Provider [phone] Encounter Details Date Type Department Care Team (Late Contact Info) Description 03/06/2017 [place]phone [place] [address] Lili Simmons LPN Social History [...] Telephone Encounter - Lili Simmons LPN - 03/06/2017 12:53 PM EST RX's sent to pt's PCP per Dr Burgos. documented in this encounter Plan of Treatment Upcoming Encounters Date Type Department Care Team (Late Contact Info) Description 05/17/2024 2:30 PM EST Office [place] [address] Alcides Bonilla MD [facility] [place] [address] 04/06/2049 9:00 AM EST Hospital Encounter [place] [address] Harry Guerrero MD [facility] [place] [address] documented as of this encounter Visit Diagnoses Not on filedocumented in this encounter Care Teams Composite Boat Builder Relationship Specialty Start Date End Date Nayla Miramontes MD [facility] [address] [facility] [address] [place] [address] PCP - General 05/21/11 05/10/21 documented as of this encounter
--- OUTSIDE RECORDS SUMMARY | 2024-03-07 18:57 | XMS_ITS | Encounter Summary ---
Author Organization [facility] [place] [address] Care Team Providers Care Hris Analyst Name Role Phone Nayla Miramontes MD Primary Care Provider [phone] Encounter Details Date Type Department Care Team (Latest Contact Info) Description 05/31/2018 8:30 AM EST Laboratory Appointment Lab [address] [place] [id number] Osteoarthritis, unspecified osteoarthritis type, unspecified site; Morning joint stiffness; Psoriatic arthritis.currently on Hydroxychloroquine. No signs of hydroxychloroquine retinopathy. Recommend close followup.; Psoriasis; Ankylosing spondylitis of multiple sites in spine ; Chronic pain of both shoulders; Pain in both hands; Chronic pain of both knees; Chronic bilateral low back pain without sciatica; Bilateral hip pain; Type 1 diabetes mellitus with proliferative retinopathy [...] [place] [address] Alcides Bonilla MD [facility] [place] [address] 04/06/2049 9:00 AM EST Hospital Encounter Gastroenterology at [address] [place] [address] Harry Guerrero MD [facility] [place] [address] documented as of this encounter Procedures Procedure Name Priority Date/Time Associated Diagnosis Comments CRP, ACUTE INFLAMMATION Routine 05/31/2018 8:51 AM EST Osteoarthritis, unspecified osteoarthritis type, unspecified site Morning joint stiffness Psoriatic arthritis.currently on Hydroxychloroquine. No signs of hydroxychloroquine retinopathy. Recommend close followup. Psoriasis QUANTIFERON-TB GOLD Routine 05/31/2018 8 :51 AM EST Chronic pain of both shoulders Osteoarthritis, unspecified osteoarthritis type, unspecified site Pain in both hands Morning joint stiffness Chronic pain of both knees Psoriatic arthritis.currently on Hydroxychloroquine. No signs of hydroxychloroquine retinopathy. Recommend close followup. Psoriasis HEMOGRAM Routine 05/31/2018 8:51 AM EST Osteoarthritis, unspecified osteoarthritis type, unspecified site Morning joint stiffness Psoriatic arthritis Psoriasis DIFFERENTIAL, AUTOMATED Routine 05/31/2018 8:51 AM EST Osteoarthritis, unspecified osteoarthritis type, unspecified site Morning joint stiffness Psoriatic arthritis Psoriasis HLA-B27 Routine 05/31/2018 8:51 AM EST Ankylosing spondylitis of multiple sites in spine Chronic pain of both shoulders Osteoarthritis, unspecified osteoarthritis type, unspecified site Pain in both hands Morning joint stiffness Chronic pain of both knees Psoriatic arthritis.currently on Hydroxychloroquine. No signs of hydroxychloroquine retinopathy. Recommend close followup. Psoriasis Chronic bilateral low back pain without sciatica Bilateral hip pain HEPATITIS C ANTIBODY Routine 05/31/2018 8:51 AM EST Chronic pain of both shoulders Osteoarthritis, unspecified osteoarthritis type, unspecified site Pain in both hands Morning joint stiffness Chronic pain of both knees Psoriatic arthritis.currently on Hydroxychloroquine. No signs of hydroxychloroquine retinopathy. Recommend close followup. Psoriasis HEPATITIS B CORE ANTIBODY, TOTAL Routine 05/31/2018 8:51 AM EST Chronic pain of both shoulders Osteoarthritis, unspecified osteoarthritis type, unspecified site Pain in both hands Morning joint stiffness Chronic pain of both knees Psoriatic arthritis.currently on Hydroxychloroquine. No signs of hydroxychloroquine retinopathy. Recommend close followup. Psoriasis HIV SCREEN, 4TH GENERATION ([facility]/CGP/APD/NLH) Routine 05/31/2018 8:51 AM EST Chronic pain of both shoulders Osteoarthritis, unspecified osteoarthritis type, unspecified site Pain in both hands Morning joint stiffness Chronic pain of both knees Psoriatic arthritis.currently on Hydroxychloroquine. No signs of hydroxychloroquine retinopathy. Recommend close followup. Psoriasis HEPATITIS B SURFACE ANTIBODY Routine 05/31/2018 8:51 AM EST Chronic pain of both shoulders Osteoarthritis, unspecified osteoarthritis type, unspecified site Pain in both hands Morning joint stiffness Chronic pain of both knees Psoriatic arthritis.currently on Hydroxychloroquine. No signs of hydroxychloroquine retinopathy. Recommend close followup. Psoriasis HEPATITIS B SURFACE ANTIGEN Routine 05/31/2018 8:51 AM EST Chronic pain of both shoulders Osteoarthritis, unspecified osteoarthritis type, unspecified site Pain in both hands Morning joint stiffness Chronic pain of both knees Psoriatic arthritis.currently on Hydroxychloroquine. No signs of hydroxychloroquine retinopathy. Recommend close followup. Psoriasis SEDIMENTATION RATE Routine 05/31/2018 8: 51 AM EST Osteoarthritis, unspecified osteoarthritis type, unspecified site Morning joint stiffness Psoriatic arthritis.currently on Hydroxychloroquine. No signs of hydroxychloroquine retinopathy. Recommend close followup. Psoriasis CBC (WITH DIFF) Routine 05/31/2018 8:51 AM EST Osteoarthritis, unspecified osteoarthritis type, unspecified site Morning joint stiffness Psoriatic arthritis.currently on Hydroxychloroquine. No signs of hydroxychloroquine retinopathy. Recommend close followup. 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 No signs of hydroxychloroquine retinopathy. Recommend close followup. 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 documented in this encounter Results * Differential, Automated (05/31/2018 8:51 AM EST) Neutrophil % 36.9 % [facility] Neutrophil Absolute 1.79 1.70 - 6.10 x10(3)/[facility] Lymph % 52.8 % [facility] Lymphocytes Abs 2.6 0.9 - 3.2 x10(3)/[facility] Monocyte % 6.8 % [facility] Monocyte Abs 0.3 0.3 - 0.9 x10(3)/[facility] Eos % 2.5 % [facility] Eosinophils Abs 0.1 0.0 - 0.4 x10(3)/[facility] Basophil % 0.8 % [facility] Baso Absolute 0.0 0.0 - 0.1 x10(3)/[facility] Immature Gran % 0.20 % [facility] Comment: Immature granulocytes(IG's)percentage and absolute count will include metamyelocytes, myelocytes, and promyelocytes. Blood smears from CBCs yielding IG's will be scanned manually for concordance. If this scan disagrees with the automated IG or if promyelocytes are noted, a manual differential will be performed. Immature Gran Absolute 0.01 0.00 - 0.04 x10(3)/[facility] Blood specimen (specimen) 05/31/2018 8:51 AM EST 05/31/2018 9:34 AM EST Narrative Resulting Agency Comment Spec In Lab Luis Haywood MD HEMATOLOGY ORDERABLE S [facility] [place] [address] * Hemogram (05/31/2018 8:51 AM EST) White Blood Cell 4.8 4.0 - 9.5 x10(3)/[facility] Red Blood Cell 4.08 4.00 - 5.21 x10(6)/[facility] Hemoglobin 12.3 11.7 - 15.5 gm/dL [facility] Hematocrit 37.5 35.7 - 45.8 % [facility] Mean Cell Volume 91.9 82.6 - 94.4 fL [facility] Mean Cell Hemoglobin 30.1 27.1 - 32.0 pg [facility] Mean Cell Hemoglobin Concentration 32.8 31.7 - 35.0 gm/dL [facility] Platelet 255 145 - 357 x10(3)/[facility] RDW Standard Deviation 41.5 37.0 - [address].0 [facility] RDW coefficient of variation 12.3 11.5 - 14.1 % [facility] Mean Platelet Volume 9.0 7.6 - 12.9 [facility] NRBC% auto 0.0 % [facility] NRBC Absolute 0.000 0.000 - 0.000 x10(3)/[facility] Blood specimen (specimen) 05/31/2018 8:51 AM EST 05/31/2018 9:34 AM EST Narrative Resulting Agency Comment Spec In Lab Luis Haywood MD HEMATOLOGY ORDERABLE S [facility] [place] [address] * (ABNORMAL) Hemoglobin A1c (05/31/2018 8:51 AM EST) Hemoglobin A1c 8.3(H) 4.3 - 5.6 % [facility] Comment: Reference Range: [...] 36: Suppl. 1, S67-74 Estimated Average Glucose 192 mg/dL [facility] Comment: eAG equivalents [...] into estimated average glucose values. ??Diabetes Care 2008:31(8):8680-3583. Blood specimen (specimen) 05/31/2018 8:51 AM EST 05/31/2018 9:34 AM EST Narrative Resulting Agency Comment Spec In Lab Roseanne E Bilotta TRAVEL MANAGER CHEMISTRY ORDERABLE S Performing Organization Address City/[facility] Co de Phone Number [facility] [place] [address] * LDL Cholesterol, Direct (05/31/2018 8:51 AM EST) LDL Cholesterol, Direct 81 mg/dL [facility] Comment: Lowest Risk: <100 mg/dL Lower Risk: 100-129 mg/dL Borderline High Risk: 130-159 mg/dL High Risk: 160-189 mg/dL Very High Risk: >qe=486 mg/dL Blood specimen (specimen) 05/31/2018 8:51 AM EST 05/31/2018 9:34 AM EST Narrative Resulting Agency Comment Spec In Lab Roseanne E Bilotta TRAVEL MANAGER CHEMISTRY ORDERABLE S Performing Organization Address [facility] Co de Phone Number [facility] [place] [address] * TSH (05/31/2018 8:51 AM EST) Thyroid Stimulating Hormone 1.27 0.27 - 4.20 mlU/ML [facility] Blood specimen (specimen) 05/31/2018 8:51 AM EST 05/31/2018 9:34 AM EST Narrative Resulting Agency Comment Spec In Lab Roseanne E Bilotta TRAVEL MANAGER CHEMISTRY ORDERABLE S Performing Organization Address [facility] Co de Phone Number [facility] [place] [address] * CRP, acute inflammation (05/31/2018 8:51 AM EST) C-Reactive Protein 0.6 <=4.9 mg/L [facility] Blood specimen (specimen) 05/31/2018 8:51 AM EST 05/31/2018 9:34 AM EST Narrative Resulting Agency Comment Spec In Lab Luis Haywood MD CHEMISTRY ORDERABLES [facility] [place] [address] * (ABNORMAL) Comprehensive metabolic panel (non-fasting) (05/31/2018 8:51 AM EST) Glucose 251(H) 65 - 199 mg/dL [facility] Comment:Diabetes: >=200 mg/d L plus symptoms Blood Urea Nitrogen 10 8 - 18 mg/dL [facility] Creatinine 0.69(L) 0.70 - 1.20 mg/dL [facility] Sodium 139 135 - 145 mmol/L [facility] Potassium 4.4 3.5 - 5.0 mmol/L [facility] Comment: Please note: ??Patients with WBC >100,000 may have falsely elevated Potassium levels. ??For accurate Potassium quantification in these patients send serum separator tube (gold top) for subsequent determinations. ??Contact the Clinical Chemistry Laboratory if there are any questions. Chloride 101 98 - 107 mmol/L [facility] Carbon Dioxide 26 22 - 31 mmol/L [facility] Anion Gap 12 5 - 15 mmol/L [facility] Calcium 8.6 8.5 - 10.5 mg/dL [facility] Protein, Total 6.3 6.1 - 8.0 gm/dL [facility] Albumin 3.8 3.2 - 5.2 gm/dL [facility] Aspartate Aminotransferase 14 0 - 30 unit/L [facility] Alanine Aminotransferase 12 0 - 30 unit/L [facility] Alkaline Phosphatase 40 40 - 104 unit/L [facility] Bilirubin, Total 0.6 0.2 - 1.3 mg/dL [facility] Est Glomerular Filtration Rate 93 >=60 mL/min/1. 73 m?? [facility] Comment: The eGFR was calculated using the CKD-EPI equation. As with all creatinine based estimates of kidney function, eGFR values calculated with the CKD-EPI equation are not accurate in patients with acute kidney failure, extremes of body mass or the acutely ill. http://[employer]/[facility] eGFR 108 >=60 mL/min/1. 73 m?? [facility] Comment: The eGFR was calculated using the CKD-EPI equation. As with all creatinine based estimates of kidney function, eGFR values calculated with the CKD-EPI equation are not accurate in patients with acute kidney failure, extremes of body mass or the acutely ill. http://[employer]/[facility] Blood specimen (specimen) 05/31/2018 8:51 AM EST 05/31/2018 9:34 AM EST Narrative Resulting Agency Comment Spec In Lab Luis Haywood MD CHEMISTRY ORDERABLES Performing Organization Address [facility] Co de Phone Number [facility] [place] [address] * Sedimentation rate (05/31/2018 8:51 AM EST) Pathologist [facility] Sedimentation Rate Automated 7 0 - 20 mm/hr [facility] Blood specimen (specimen) 05/31/2018 8:51 AM EST 05/31/2018 9:34 AM EST Narrative Resulting Agency Comment Spec In Lab Luis Haywood MD HEMATOLOGY ORDERABLE S Performing Organization Address [facility] Co de Phone Number [facility] [place] [address] * HIV Screen, 4th Generation (05/31/2018 8:51 AM EST) Pathologist [facility] HIV Ab/Ag Screen Negative Negative [facility] Comment: This 4th Generation HIV test [...] In Lab Luis Haywood MD CHEMISTRY ORDERABLES [facility] [place] [address] * QuantiFERON-TB Gold (05/31/2018 8:51 AM EST) Quantiferon Nil 0.140 IU/mL [facility] QFT TB Ag1-Nil -0.020 IU/mL [facility] QFT TB Ag2-Nil -0.010 IU/mL [facility] Quantiferon Mitogen-Nil 9.980 IU/mL [facility] Quantiferon-TB Gold Negative Negative [facility] Quantiferon Tb Interp M. tuberculosis infection [...] affect immune function, or other immunological factors. [facility] Comment: The performance of the QFT-Plus [...] Haywood MD CHEMISTRY ORDERABLES Performing Organization Address [facility] de Phone Number [facility] [place] [address] * Hepatitis B Surface Antibody (05/31/2018 8:51 AM EST) Hepatitis B Surface Antibody, Quantitative 3.5 IU/L [facility] Comment: HepB Surface Ab Quant: Unvaccinated: < 8.5 IU/L Vaccinated: > 11.5 IU/L Hepatitis B Surface Antibody Negative [facility] Comment: Patient is presumed to be not vaccinated or immune to HBV infection. Expected Results: Vaccinated: Positive Unvaccinated: Negative Blood specimen (specimen) 05/31/2018 8:51 AM EST 05/31/2018 9:34 AM EST Narrative Resulting Agency Comment Spec In Lab Luis Haywood MD CHEMISTRY ORDERABLES Performing Organization Address [facility] Co de Phone Number [facility] [place] [address] * Hepatitis C Antibody (05/31/2018 8:51 AM EST) Hepatitis C Antibody Negative Negative [facility] Blood specimen (specimen) 05/31/2018 8:51 AM EST 05/31/2018 9:34 AM EST Narrative Resulting Agency Comment Spec In Lab Luis Haywood MD CHEMISTRY ORDERABLES Performing Organization Address [facility] Co de Phone Number [facility] [place] [address] * Hepatitis B Surface Antigen (05/31/2018 8:51 AM EST) Hepatitis B Surface Antigen Negative Negative [facility] Blood specimen (specimen) 05/31/2018 8:51 AM EST 05/31/2018 9:34 AM EST Narrative Resulting Agency Comment Spec In Lab Luis Haywood MD CHEMISTRY ORDERABLES Performing Organization Address [facility] Co de Phone Number [facility] [place] [address] * Hepatitis B Core Antibody, Total (05/31/2018 8:51 AM EST) Hepatitis B Core Antibody Negative Negative [facility] Blood specimen (specimen) 05/31/2018 8:51 AM EST 05/31/2018 9:34 AM EST Narrative Resulting Agency Comment Spec In Lab Luis Haywood MD CHEMISTRY ORDERABLES Performing Organization Address [facility] de Phone Number [facility] [place] [address] * HLA-B27 (05/31/2018 8:51 AM EST) HLA-B27 Negative [facility] HLA B27 Interpretation HLA B27 antigen was not detected. Method: Flow Cytometry Reference: 1.Mickey DA, Larry VARGAS, Angelina A, et al: Ankylosing spondylitis and HLA-27. Lancet 1973;1:904-907 2.Faye J, Kim EM: HLA-B27 typing by use of flow cytofluorometr y. Clin Chem 1987;33:1619-1 623 [facility] White Blood Cell 4.8 4.0 - 9.5 x10(3)/m cL [facility] Blood specimen (specimen) 05/31/2018 8:51 AM EST 05/31/2018 9:34 AM EST Narrative Resulting Agency Comment Spec In Lab Luis Haywood MD HEMATOLOGY ORDERABLE S Performing Organization Address [facility] Co de Phone Number [facility] [place] [phone] * U Albumin/Cre Ratio (05/31/2018 8:49 AM EST) Albumin / Creatinin Ratio, Urine 13 0 - 29 mcg/mg Cr [facility] Comment: Reference Ranges: [...] Supplements (2012) 2, 357? 362 Albumin, Urine 13.9 mg/L [facility] Creatinine, Urine 106 mg/dL [facility] Urine specimen (specimen) 05/31/2018 8:49 AM EST 05/31/2018 9:31 AM EST Narrative Resulting Agency Comment Spec In Lab Roseanne Kay APRN URINE ORDERABLES Performing Organization Address [facility] Co de Phone Number [facility] [place] [phone] documented in this encounter Visit Diagnoses Diagnosis Osteoarthritis, unspecified osteoarthritis type, unspecified site Morning joint stiffness Stiffness of joint, not elsewhere classified, unspecified site Psoriatic arthritis.currently on Hydroxychloroquine. No signs of hydroxychloroquine retinopathy. Recommend close followup. 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
--- OUTSIDE RECORDS SUMMARY | 2024-03-07 18:57 | XMS_ITS | Encounter Summary ---
Author Organization Formerly [facility] [place] [address] Care Team Providers Care Construction Trades Contractor Name Role Phone Nayla Miramontes MD Primary Care Provider [phone] Encounter Details Date Type Department Care Team (Late st Contact Info) Description 02/20/2017 [place] [phone] Nadiya Montalvo LPN Social History Tobacco Use Types Packs/Day [...] Telephone Encounter - Gloria Pimentel MD - 02/26/2017 6:26 PM EST If her BG are still running under 80 after cutting back a notch on her basal rates, she should cut back another notch on all her basal rates. * Telephone Encounter - Nadiya Montalvo LPN - 02/25/2017 11:33 AM EST No response from patient. Nurse called again at which time message from Dr Pimentel was read to her. Patient agrees with plan of care and states FBG's have been 45-70 * Telephone Encounter - Nadiya Montalvo LPN - 02/20/2017 4:27 PM EST Images from the original note were not included. Roxann Baxter?? Female, 61 y.o., 1955 Weight: 83 kg (183 lb) Home: PCP: Nayla Miramontes MD myD-H: Active Next Appt: 03/06/2017 ?? Message Received: Today ? Gloria Pimentel MD Isham, Gail, LPN ? Hi Nadiya, may you give Roxann a call to find out how low her morning blood sugars have been? Please also let her know to cut back a notch on her overnight and morning basal rates on her pump (sounds like she is back to using it since seeing Roseanne a couple weeks ago). Thanks so much! Gloria ? Previous Messages ?? ----- Message ----- ? From: Rachna Espinosa ? Sent: 02/18/2017 ?? 3:37 PM ? To: Gloria Pimentel MD, [facility] Nurse Dr. Graham - [phone] A1c 8.5 Patient's morning blood sugars have been very low. ??So eats a lot and takes glucose replacements. ??She was wondering if there needed to be changes in her basal rates. ? Called patient. No answer. Message left on home v/m for patient to r/c to nurse at which time abovemessage from Dr Pimentel will be read to her. documented in this encounter Plan of Treatment Upcoming Encounters Date Type Department Care Team (Late st Contact Info) Description 05/17/2024 2:30 PM EST Office Visit Gastroenterology at [place] [phone] Alcides Bonilla MD [facility] [place] [address] 04/06/2049 9:00 AM EST Hospital Encounter Gastroenterology at [place] [phone] Harry Guerrero MD [facility] [place] [address] documented as of this encounter Visit Diagnoses Not on filedocumented in this encounter Care Teams Construction Trades Contractor Relationship Specialty Start Date End Date Nayla Miramontes MD [facility] [address] [place] [address] PCP - General 05/21/11 05/10/21 documented as of this encounter
--- OUTSIDE RECORDS SUMMARY | 2024-03-07 18:57 | XMS_ITS | Encounter Summary ---
Author Organization [facility] Address [facility] [place] [address] Care Team Providers Care Strawberry Grower Name Role Phone Nayla Miramontes MD Primary Care Provider [phone] Reason for Visit * Reason Comments Follow-up Encounter Details Date Type Department Care Team ([facility] st Contact Info) Description 05/25/2017 9:20 AM EST Office [place] [address] Darryl Burgos MD [facility] [place] [address] Psoriasis; Psoriatic arthritis Social History Tobacco Use Types Packs/Day Years [...] Sign Reading Time Taken Comments Blood Pressure 139/59 05/25/2017 9:25 AM EST Pulse 62 05/25/2017 9:25 AM EST Temperature 36.6 ??C (97.9 ??F) 05/25/2017 9:25 AM ES T Respiratory Rate - - Oxygen Saturation 99% 05/25/2017 9:25 AM EST Inhaled Oxygen Concentration - - Weight 85.8 kg (189 lb 3.2 oz) 05/25/2017 9:25 A M EST Height 167.6 cm (5' 6) 05/25/2017 9:25 AM EST Body Mass Index 30.54 05/25/2017 9:25 AM EST documented in this encounter Patient Instructions * Patient Instructions* Darryl Burgos MD - 05/25/2017 9:20 AM EST 1) Resume??every other week Humira, 40 mg. ?? 2) Continue twice daily Celebrex for now. 3) Return to follow up in three months. documented in this encounter Progress Notes * Darryl Burgos MD - 05/25/2017 9:20 AM EST REASON FOR VISIT: Follow up for psoriatic arthritis and psoriasis. ? INTERVAL HISTORY:? The pt was a 61-year-old female, who returned for a follow up of psoriatic arthritis and psoriasis. ??The pt noted that since her last visit on March 06, 2017, she had not resumed adalimumab for immunosuppression of her psoriatic arthritis and psoriasis due to insurance issues. ??She felt that her overall neck pain, back pain, and joint pain remained largely stable??while off??adalimumab. ??She did complain of worsening left shoulder pain and decreased range of motion of the left shoulder. ??Otherwise, she had no fever, chest pain, dyspnea, dysuria, nausea, headache, easy bruising, rash, or polydipsia. She did complain of persistent and difficult to treat depression. PAST MEDICAL HISTORY:? Psoriatic arthritis ?? Psoriasis [...] her family. 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 ??She was currently applying for disability. ? FAMILY HISTORY:?Mother - Hypertension, hyperlipidemia, hypothyroidism; of cardiac aneurysm at the age of 48. ?? Father - Stroke x two; of a brain tumor at the age of 82. ? PHYSICAL EXAMINATION:? Vitals 05/25/2017 SYSTOLIC 139 DIASTOLIC 59 PULSE 62 TEMPERATURE 97.9 Height (Vincentian) 5' 6 Height (Metric) 167.6 cm Weight (Vincentian) 189 lbs 3 oz Weight (Metric) 85.821 kg BODY MASS INDEX 30.54 kg/m2 Pulse Oximetry 99 General - Alert, co-operative, no apparent distress, oriented x 3. ?? HEENT - Conjunctiva pink and non-injected, no sclerae icterus or malar rash. Neuro - + Left eye blind; no motor function deficit. ?? Psych - Affect normal. ? IMPRESSION??:? 1) Psoriatic arthritis and 2) psoriasis in a 61-year-old female. ??The pt's psoriatic arthritis and psoriasis was under poor control when she was off adalimumab and Celebrex. ??She previously failed methotrexate due to inadequate efficacy and worsening nausea. ??She is not an ideal candidate for intra- articular joint injection of the left shoulder with corticosteroid due to her [id number]. She will continue Celebrex for symptomatic control for now. The pt was instructed to follow up with Patient Care Management about seeking help for resuming every other week adalimumab injection. ? 3) Severe leftward lumbar scoliosis at L2-L3 (26 degrees). ??The pt's back pain is related to both severe leftward lumbar scoliosis at L2-L3 (26 degrees) and inflammatory back disease. ??She will focus on symptomatic control with Celebrex for now. ??She will also need to resume adalimumab for immunosuppression. ? RECOMMENDATIONS:? 1) Resume??every other week Humira, 40 mg. ?? 2) Continue twice daily Celebrex for now. 3) Return to follow up in three months. ? Darryl Burgos MD, PhD documented in this encounter Plan of Treatment Upcoming Encounters Date Type Department Care Team (Late st Contact Info) Description 05/17/2024 2:30 PM EST Office Visit Gastroenterology at [place] [phone] Alcides Bonilla MD [facility] [place] [address] 04/06/2049 9:00 AM EST Hospital En[place] [address] Harry Guerrero MD [facility] DR GASTROENTER[place] [address] documented as of this encounter Visit Diagnoses Diagnosis Psoriasis Other psoriasis Psoriatic arthritis Psoriatic arthropathy documented in this encounter Care Teams Strawberry Grower Relationship Specialty Start Date End Date Nayla Miramontes MD [facility] [address] [place] [address] PCP - General 05/21/11 05/10/21 documented as of this encounter
--- OUTSIDE RECORDS SUMMARY | 2024-03-07 18:57 | XMS_ITS | Encounter Summary ---
Author Organization [facility] [place] [address] Care Team Providers Care Academic Support Assistant Name Role Phone Nayla Miramontes MD Primary Care Provider [phone] Encounter Details Date Type Department Care Team (Latest Contact Info) Description 05/31/2018 9:30 AM EST Office [place] [address] Roseanne Kay [facility] [place] [address] Type 1 diabetes mellitus with proliferative retinopathy [...] Sign Reading Time Taken Comments Blood Pressure 134/40 05/31/2018 9:05 AM EST Pulse 98 05/31/2018 9:05 AM EST Temperature - - Respiratory Rate - - Oxygen Saturation - - Inhaled Oxygen Concentration - - Weight 84.9 kg (187 lb 3.2 oz) 05/31/2018 9:05 A M EST Height 167.6 cm (5' 6) 05/31/2018 9:05 AM EST Body Mass Index 30.21 05/31/2018 9:05 AM EST documented in this encounter Patient Instructions * Patient Instructions* Roseanne Kay APRN - 05/31/2018 9:30 AM EST Lowered basal rates at 12AM & 4AM to 0.625 If still having low glucose fasting in AM then loweragain to 0.60 Skin cream to feet documented in this encounter Progress Notes * Roseanne Kay APRN - 05/31/2018 9:30 AM EST Office visit note for Roxann Baxter. Date of visit 05/31/2018 Reason for visit: Follow-up type I DM with complication of retinopathy. Also, hypothyroidism, hypertension, depression, hyperlipidemia Brief history: Discusses some emotional stress with her social situation. Takes care of her great grandchild. Diabetes regimen: Medtronic 630G pump. Basal rates: 12 AM 0.675, 4 AM 0.675, 9:30, 0.7, 3:30 PM 0.825, 7 PM 0.75 total basal 17.25 Bolus settings: SF=30 Target glucose 150 Has been having some hypoglycemia reactions overnight and fasting in AM Date of diagnosis of diabetes: At age 40 SBGM: 4 times a day for the previous 60 days and years before that. Reason for higher frequency testing is that patient has hypoglycemia unawareness Past Medical History: Diagnosis Date ??? Anxiety ??? Arthritis ??? Asthma ??? Cortical cataract 05/05/2011 ??? Diabetes mellitus ??? GERD (gastroesophageal reflux disease) ??? Hyperlipidemia ??? Hypertension ??? PDR (proliferative diabetic retinopathy) 05/25/2011 ??? Skin disease ??? Thyroid disease Review of systems: Takes medication for depression. Is followed by building superintendent for GI symptoms. Extremities has joint pains. Has urinary incontinence and bowel incontinence Physical exam: Appearance: She appears in good health. Blood pressure 134/40. Weight is the same 187 pounds. Eyes: Scars noted with greenlight exam. Neck: No thyromegaly or lymphadenopathy. Heart: Regular rate and rhythm. Lungs are clear to auscultation. Feet: Skin is normal, pulses are normal. Neuro: Normal sensation to 10 G's of pressure She agrees to go to the lab for hemoglobin A1c. At time of dictation hemoglobin A1c 8.3% Impression and plan: DM type I with complication of retinopathy. Advised to lower basal rate at 12 AM To .625 and at 4 AM to .625. Gave her freestyle marquise CGMS system. Taught sensor kit insertion technique which patient did correctly to right upper arm. Will send order for 14-day sensor kits to [facility] where she gets her pump supplies. Hypothyroidism: She is at the correct hormone replacement dose. 24-hour meal plan was reviewed. Breakfast was yogurt and a half a banana evening meal was meatloaf, a third of a cup of potato and broccoli. Return to office in 90 days. Will check hemoglobin A1c. This was a 39-minute office visit with 28 minutes spent counseling [id number] with patient management glucose levels, starting freestyle marquise CGM S which will be helpful to avoid hypoglycemia and avoid severe hyperglycemia and lowered to basal rates to avoid hypoglycemia Recent Results (from the past 72 hour(s)) U Albumin/Cre Ratio Result Value Ref Range Alb/Cr Ratio, Random 13 0 - 29 mcg/mg Cr U Albumin Conc, Random 13.9 mg/L U Creatinine 106 mg/dL HLA-B27 Result Value Ref Range HLA-B27 Negative HLA-B27 Interp HLA B27 antigen was not detected. Method: Flow Cytometry Reference: 1.Mickey DA, Larry VARGAS, Angelina Jimenez, et al: Ankylosing spondylitis and HLA-27. Lancet 1973;1:904-907 2.Faye J, Kim EM: HLA-B27 typing by use of flow cytofluorometry. Clin Chem 1987;33:0672-1288 WBC 4.8 4.0 - 9.5 x10(3)/mcL Hepatitis B Core Antibody, Total Result Value Ref Range Hep B Core Ab Negative Negative Hepatitis B Surface Antigen Result Value Ref Range HepB Surface Ag Negative Negative Hepatitis C Antibody Result Value Ref Range Hepatitis C Ab Negative Negative Hepatitis B Surface Antibody Result Value Ref Range HepB Surface Ab Quant 3.5 IU/L HepB Surface Ab Negative HIV Screen, 4th Generation Result Value Ref Range HIV-1/2 Ab and Ag Negative Negative Sedimentation rate Result Value Ref Range Sed Rate 7 0 - 20 mm/hr Comprehensive metabolic panel (non-fasting) Result Value Ref Range Glucose Lvl 251 (H) 65 - 199 mg/dL BUN 10 8 - 18 mg/dL Creatinine 0.69 (L) 0.70 - 1.20 mg/dL Sodium 139 135 - 145 mmol/L Potassium 4.4 3.5 - 5.0 mmol/L Chloride 101 98 - 107 mmol/L CO2 26 22 - 31 mmol/L Anion Gap 12 5 - 15 mmol/L Calcium 8.6 8.5 - 10.5 mg/dL Total Protein 6.3 6.1 - 8.0 gm/dL Albumin 3.8 3.2 - 5.2 gm/dL AST 14 0 - 30 unit/L ALT 12 0 - 30 unit/L Alk Phos 40 40 - 104 unit/L Total Bilirubin 0.6 0.2 - 1.3 mg/dL eGFR 93 >=60 mL/min/1.73 m?? eGFR 108 >=60 mL/min/1.73 m?? CRP, acute inflammation Result Value Ref Range CRP 0.6 <=4.9 mg/L TSH Result Value Ref Range TSH 1.27 0.27 - 4.20 mlU/ML LDL Cholesterol, Direct Result Value Ref Range LDL Chol Direct 81 mg/dL Hemoglobin A1c Result Value Ref Range Hemoglobin A1C 8.3 (H) 4.3 - 5.6 % Est Avg Gluc 192 mg/dL Hemogram Result Value Ref Range WBC 4.8 4.0 - 9.5 x10(3)/mcL RBC 4.08 4.00 - 5.21 x10(6)/mcL Hemoglobin 12.3 11.7 - 15.5 gm/dL Hematocrit 37.5 35.7 - 45.8 % MCV 91.9 82.6 - 94.4 fL MCH 30.1 27.1 - 32.0 pg MCHC 32.8 31.7 - 35.0 gm/dL Platelets 255 145 - 357 x10(3)/mcL RDWSD 41.5 37.0 - 46.0 fL RDWCV 12.3 11.5 - 14.1 % MPV 9.0 7.6 - 12.9 fL nRBC % Auto 0.0 % nRBC Abs Auto 0.000 0.000 - 0.000 x10(3)/mcL Differential, Automated Result Value Ref Range Neutrophils % 36.9 % Neutr Abs (ANC) 1.79 1.70 - 6.10 x10(3)/mcL Lymphocytes % 52.8 % Lymphocytes Abs 2.6 0.9 - 3.2 x10(3)/mcL Monocytes % 6.8 % Monocyte Abs 0.3 0.3 - 0.9 x10(3)/mcL Eosinophils % 2.5 % Eosinophils Abs 0.1 0.0 - 0.4 x10(3)/mcL Basophils % 0.8 % Basophils Abs 0.0 0.0 - 0.1 x10(3)/mcL Immature Gran % 0.20 % Ros Gran Abs 0.01 0.00 - 0.04 x10(3)/mcL documented in this encounter Plan of Treatment Upcoming Encounters Date Type Department Care Team (Late st Contact Info) Description 05/17/2024 2:30 PM EST Office [place] [phone] Alcides Bonilla MD [facility] [place] [address] 04/06/2049 9:00 AM EST Hospital En[place] [phone] Harry Guerrero MD [facility] [place] [address] documented as of this encounter Results * TSH (05/31/2018 8:51 AM EST) Thyroid Stimulating Hormone 1.27 0.27 - 4.20 mlU/ML [facility] Blood specimen (specimen) 05/31/2018 8:51 AM EST 05/31/2018 9:34 AM EST Narrative Resulting Agency Comment Spec In Lab Roseanne Kay APRN CHEMISTRY ORDERABLE S [facility] [place] [address] * LDL Cholesterol, Direct (05/31/2018 8:51 AM EST) LDL Cholesterol, Direct 81 mg/dL [facility] Comment: Lowest Risk: <100 mg/dL Lower Risk: 100-129 mg/dL Borderline High Risk: 130-159 mg/dL High Risk: 160-189 mg/dL Very High Risk: >eq=720 mg/dL Blood specimen (specimen) 05/31/2018 8:51 AM EST 05/31/2018 9:34 AM EST Narrative Resulting Agency Comment Spec In Lab Roseanne Kay APRN CHEMISTRY ORDERABLE S [facility] [place] [address] * (ABNORMAL) Hemoglobin A1c (05/31/2018 8:51 AM EST) Hemoglobin A1c 8.3(H) 4.3 - 5.6 % [facility] Comment: Reference Range: 4.3 - [...] Mellitus, Diabetes Care 2013; 36: Suppl. 1, S67-89 Estimated Average Glucose 192 mg/dL [facility] Comment: eAG equivalents for HbA1c [...] into estimated average glucose values. ??Diabetes Care 2008:31(8):7006-5253. Blood specimen (specimen) 05/31/2018 8:51 AM EST 05/31/2018 9:34 AM EST Narrative Resulting Agency Comment Spec In Lab Roseanne Kay APRN CHEMISTRY ORDERABLE S [facility] [place] [address] * U Albumin/Cre Ratio (05/31/2018 8:49 AM EST) Albumin / Creatinin Ratio, Urine 13 0 - 29 mcg/mg Cr [facility] Comment: Reference Ranges: <30 mcg/mg: [...] 2, 357? 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
--- OUTSIDE RECORDS SUMMARY | 2024-03-07 18:57 | XMS_ITS | Encounter Summary ---
Author Organization [facility] [place] [address] Care Team Providers Care Suspension Cord Tier Name Role Phone Nayla Miramontes MD Primary Care Provider [phone] Reason for Visit * Reason Onset Date Comments Medication Refill 01/23/2017 Encounter Details Date Type Department Care Team (Late st Contact Info) Description 01/23/2017 [place] [address] Gloria Pimentel MD [facility] [place] [address] Social History Tobacco Use Types Packs/Day Years [...] 2:30 PM EST Office [place] [phone] Alcides Bonilla MD [facility] [place] [address] 04/06/2049 9:00 AM EST Hospital En[place] [address] Harry Guerrero MD [facility] [place] [address] documented as of this encounter Visit Diagnoses Not on filedocumented in this encounter Care Teams Suspension Cord Tier Relationship Specialty Start Date End Date Nayla Miramontes MD [facility] [address] L[address]PE[address] [facility] [address] [place] [address] PCP - General 05/21/11 05/10/21 documented as of this encounter
--- OUTSIDE RECORDS SUMMARY | 2024-03-07 18:57 | XMS_ITS | Encounter Summary ---
Author Organization [facility] [place] [address] Care Team Providers Care Human Services Case Manager Name Role Phone Nayla Miramontes MD Primary Care Provider [phone] Encounter Details Date Type Department Care Team (Late st Contact Info) Description 01/23/2017 Telephone [place] [phone] Nadiya Montalvo LPN Social History Tobacco Use [...] encounter Miscellaneous Notes * Telephone Encounter - Nadiya Montalvo LPN - 01/23/2017 3:51 PM EDT R/c to patient for the last 2 months been trying to get infusion sets Has been off pump for 72 Is taking Novolog and Lantus 10U twice that she was taking prior to going on pump. Per patient she now needs to get pump supplies from [employer] who she spoke to 72 hours ago and again today. Per Barbara Brown she has not received fax from [employer]. Patient agrees to call [employer] again and also asked that Rx for lantus go to [facility]. Call transferred to legal administrative secretary to schedule f/u as she is now on Medicare. documented in this encounter Plan of Treatment Upcoming Encounters Date Type Department Care Team (Late st Contact Info) Description 05/17/2024 2:30 PM EST Office Visit [place] [phone] Alcides Bonilla MD [facility] [place] [place] [address] 04/06/2049 9:00 AM EST Hospital Encounter [place] [address] Harry Guerrero MD [facility] [place] [address] documented as of this encounter Visit Diagnoses Not on filedocumented in this encounter Care Teams Human Services Case Manager Relationship Specialty Start Date End Date Nayla Miramontes MD [address] [place] [address] PCP - General 05/21/11 05/10/21 documented as of this encounter
--- OUTSIDE RECORDS SUMMARY | 2024-03-07 18:57 | XMS_ITS | Encounter Summary ---
Author Organization [facility] [place] [address] Care Team Providers Care Equestrian Trainer Name Role Phone Nayla Miramontes MD Primary Care Provider [phone] Reason for Visit * Reason Comments Diabetes Encounter Details Date Type Department Care Team ([facility] st Contact Info) Description 06/23/2017 11:00 AM EDT Office [place] [address] Roseanne Kay [facility] [place] [address] Type 1 diabetes mellitus with retinopathy of [...] Sign Reading Time Taken Comments Blood Pressure 107/66 06/23/2017 10:53 AM EDT Pulse 74 06/23/2017 10:53 AM EDT Temperature - - Respiratory Rate - - Oxygen Saturation - - Inhaled Oxygen Concentration - - Weight 85.4 kg (188 lb 3.2 oz) 06/23/2017 10:53 AM EDT Height 167.6 cm (5' 6) 06/23/2017 10:53 AM EDT Body Mass Index 30.38 06/23/2017 10:53 AM EDT documented in this encounter Patient Instructions * Patient Instructions* Roseanne Kay APRN - 06/23/2017 11:00 AM EDT Due for annual dilated eye exam Call [facility] for supplies documented in this encounter Progress Notes * Roseanne Kay APRN - 06/23/2017 11:00 AM EDT Office visit note from Roxann Baxter. Date of visit 06/23/2017 Reason for visit follow-up type I DM with complication of retinopathy. Also, depression, hypothyroidism, hypertension, hyperlipdemia. Brief history: Presents and states she is frustrated with the Medicare requirement that she has to have an appointment every 90 days. States she is tired of having diabetes for 45 years which is evenmore of a struggle because of the depression. Diabetes regimen: MiniMed 630G pump. Basal rates: 12 AM 0.675 4 AM 0.725 9:30 =.9 7 PM 0.725 total basal 19.05 Bolus doses insulin to carb 1-12, correction factor 15, target glucose 100-130. Active insulin 4 hours SBGM. 4 times a day. Reason for higher frequency testing is to avoid severe hypoglycemia and avoid severe hyperglycemia. She has hypoglycemia unawareness Past medical history: Depression, urinary incontinence, diabetic retinopathy, vitreous hemorrhage of right eye, dysphagia, constipation, scoliosis, chronic low back pain, seborrheic keratosis, psoriatic arthritis, type I DM diagnosed at age 16, DKA, reflux esophagitis, gastritis, hypertension, hyperlipidemia, hypothyroidism, psoriasis, iron deficiency, asthma, Giron's esophagus. Review of systems: Takes medication for depression. At home is her , granddaughter and greatgrandson. Eyes: She is due for a follow-up appointment with nursing associate. No recent headaches orchest pain or shortness of breath. GI symptoms vary. Has follow-up with forming tube selector. Extremities: Has some joint pains. Other: Wears depends for urinary incontinence and bowel incontinence. Physical exam: Appearance: She appears in good health. Blood pressure 107/66. Weight 188 pounds. Eyes: Scars noted with greenlight exam. Neck: No thyromegaly or lymphadenopathy. Heart: Regular rate rhythm. Lungs are clear to auscultation. Feet: Skin is normal, pulses are normal. Neuro: Normal sensation to 10 G's of pressure Impression and plan: DM type I with complication of retinopathy. Will change sensitivity factor to 30 to avoid low glucose levels after giving a bolus. Requested refill of insulin. Prescription was done and printed and given to her for her local pharmacy. Hypothyroidism :she is at the correct hormone replacement dose. Family history: Sister has had cervical, skin and breast cancer. Return to office in 90 days. Will check hemoglobin A1c and other labs that she is due for. This wasa 38 minute office visit with 27 minutes spent counseling [id number] with patient in the management of glucose levels, reviewing prevention and treatment of hypoglycemia, changing sensitivity factor to 30. Patient will call her pump supplier today. Patient did not go to lab today. Called patient and advised to go to lab before endocrinology appointments. Will fax lab orders for today's visit to PCP office documented in this encounter Plan of Treatment Upcoming Encounters Date Type Department Care Team (Late st Contact Info) Description 05/17/2024 2:30 PM EST Office [place] [address] Alcides Bonilla MD [facility] [place] [address] 04/06/2049 9:00 AM EST Hospital En[place] [address] Harry Guerrero MD [facility] [place] [address] documented as of this encounter Visit Diagnoses Diagnosis Type 1 diabetes mellitus with retinopathy of both eyes without macular edema, unspecified retinopathy severity documented in this encounter Care Teams Equestrian Trainer Relationship Specialty Start Date End Date Nayla Miramontes MD [address] [place] [address] PCP - General 05/21/11 05/10/21 documented as of this encounter
--- OUTSIDE RECORDS SUMMARY | 2024-03-07 18:57 | XMS_ITS | Encounter Summary ---
Author Organization [facility] [place] [address] Care Team Providers Care Fiber Optic Technician Name Role Phone Nayla Miramontes MD Primary Care Provider [phone] Encounter Details Date Type Department Care Team (Late Contact Info) Description 06/23/2017 Notes [place] [address] Roxann Han, ELSA Social History Tobacco Use Types Packs/Day Years [...] as of this encounter Progress Notes * Roxann Han, ELSA - 06/23/2017 1:18 PM EDT Faxed lab orders to Dr. Miramontes' office per Roseanne Kay's request 06/23/17. documented in this encounter Plan of Treatment Upcoming Encounters Date Type Department Care Team (Late st Contact Info) Description 05/17/2024 2:30 PM EST Office [place] [address] Alcides Bonilla MD [facility] [place] [address] 04/06/2049 9:00 AM EST Hospital En[place] [address] Harry Guerrero MD [facility] [place] [address] documented as of this encounter Visit Diagnoses Not on filedocumented in this encounter Care Teams Fiber Optic Technician Relationship Specialty Start Date End Date Nayla Miramontes MD [facility] [address] [facility] [address] [place] [address] PCP - General 05/21/11 05/10/21 documented as of this encounter
--- OUTSIDE RECORDS SUMMARY | 2024-03-07 18:57 | XMS_ITS | Encounter Summary ---
Author Organization [facility] [place] [address] Care Team Providers Care Brewery Worker Name Role Phone Nayla Miramontes MD Primary Care Provider [phone] Encounter Details Date Type Department Care Team (Late st Contact Info) Description 05/17/2016 Telephone [place] [phone] Jen Lester MD [facility] [place] [address] Social History Tobacco Use Types Packs/Day Years [...] encounter Miscellaneous Notes * Telephone Encounter - Jen Lester - 05/17/2016 5:33 PM EST Called by Ms. Baxter's home pharmacy. Her erythromycin script will cost $700, and the pharmacy alsoexpressed concerns about interactions with various meds, including her statin. She did tolerate themedication while in house but as she had not yet picked up the prescription she has not taken it for >24H. Discussed with team. Will defer recommendations for reglan or other pro-motility agent. documented in this encounter Plan of Treatment Upcoming Encounters Date Type Department Care Team (Late st Contact Info) Description 05/17/2024 2:30 PM EST Office [place] [address] Alcides Bonilla MD [facility] [place] [address] 04/06/2049 9:00 AM EST Hospital [place] [address] Harry Guerrero MD [facility] [place] [address] documented as of this encounter Visit Diagnoses Not on filedocumented in this encounter Care Teams Brewery Worker Relationship Specialty Start Date End Date Nayla Miramontes MD [facility] [address] [place] [address] PCP - General 05/21/11 05/10/21 documented as of this encounter
--- OUTSIDE RECORDS SUMMARY | 2024-03-07 18:57 | XMS_ITS | Encounter Summary ---
Author Organization [facility] Address [facility] [place] [address] Care Team Providers Care Imaging Scheduler Name Role Phone Nayla Miramontes MD Primary Care Provider [phone] Encounter Details Date Type Department Care Team (Late st Contact Info) Description 01/01/2018 2:00 PM EDT - 01/01/2018 3:00 PM EDT Surgery [place] [address] Anastasiia Castanon MD [facility] [place] [address] COLONOSCOPY, DIAGNOSTIC (WRVU 3.26) Social History Tobacco Use Types Packs/Day Years [...] Sign Reading Time Taken Comments Blood Pressure 158/129 01/01/2018 2:35 PM EDT Pulse 73 01/01/2018 2:35 PM EDT Temperature - - Respiratory Rate 11 01/01/2018 2:35 PM EDT Oxygen Saturation 100% 01/01/2018 2:35 PM EDT Inhaled Oxygen Concentration - - Weight - - Height - - Body Mass Index - - documented in this encounter Discharge Instructions * Discharge Instructions* Qi Villa RN - 01/01/2018 3:04 PM EDT Colonoscopy [...] to be checked. Thursday-Thursday Same Day Endo [phone] Otherwise contact [phone] and ask to speak to the creative specialist director of public relations Follow up care is a metcalf part [...] 590 mL 5 03/06/2017 Diabetic Supplies, Miscellan. [facility] DWO for Infusion sets faxed to [employer] 100 each 12 02/01/2017 insulin glargine (LANTUS) SolutionIndications :type 1 diabetes mellitus Inject 10 Units subcutaneously 2 times daily. Needed for insulin pump failure Indications: type 1 diabetes mellitus 10 mL 01/23/2017 atorvastatin (LIPITOR) 40 mg Tablet Take 40 mg by mouth daily. 04/28/2016 celecoxib (CELEBREX) 100 mg Capsule Take 100 mg by mouth 2 times daily. 04/28/2016 Diabetic Supplies, Miscellan. [facility] Inject 1 each subcutaneously 4 times daily. Faxed pump and supply order to [employer] at [phone]. Dx Code: 250.01 100 each 12 12/21/2015 Diabetic Supplies, Miscellan. [facility] MNF faxed to [employer] 100 each 12 10/30/2015 bisacodyl (DULCOLAX) 10 [...] H43.12 ??? PSC (posterior subcapsular cataract), bilateral [id number] ??? Type 1 diabetes mellitus E10.9 ??? [...] 2:30 PM EST Office [place] [address] Alcides Bonilla MD [facility] [place] [address] 04/06/2049 9:00 AM EST Hospital Encounter [place] [address] Harry Guerrero MD [facility] [place] [address] documented as of this encounter Procedures Procedure Name Priority Date/Time Associated Diagnosis Comments COLONOSCOPY, DIAGNOSTIC (WRVU 3.26) 01/01/2018 1:55 PM EDT Iron deficiency Incontinence of feces, unspecified fecal incontinence type COLONOSCOPY Routine 01/01/2018 1:40 PM EDT POCT FINGERSTICK GLUCOSE Routine 01/01/2018 documented in this encounter Results * COLONOSCOPY (01/01/2018 1:40 PM EDT) [facility] Signature COLONOSCOPY [facility] Endoscopy Procedure Date: 01/01/2018 1:40 PM ? Patient Name: Roxann Baxter ? Date of : 1955 ? Age: 62 ? Order #: [id number] ? Instrument Name: [id number] ? Procedure: ? Colonoscopy Indications: ? Iron [...] preparation was ? evaluated using the BBPS ([place]ubero ? Bowel Preparation Scale) with scores ? [...] 146 60 - 199 mg/dl 01/01/2018 Anastasiia Castanon MD POINT OF CARE TEST O RDERABLES documented in this encounter Visit Diagnoses Diagnosis Iron deficiency Iron deficiency anemia, unspecified Incontinence of feces, unspecified fecal incontinence type documented in this encounter Administered Medications Inactive Administered Medications - up to 3 most recent administrations Medication Order MAR Action Action Date Dose Rate Site fentaNYL 50 mcg/mL multi-dose injection ONCE PRN, Starting on Thu01/01/18 at 1400, Until Thu01/01/18 at 1753, Intra-Operative (Intra-Procedure), Routine Given 01/01/2018 2:17 PM EDT 25 mcg Right Arm Given 01/01/2018 2:11 PM EDT 25 mcg Ri ght Arm Given 01/01/2018 2:06 PM EDT 25 mcg Ri ght Arm midazolam (PF) (VERSED) 1 mg/mL multi-dose injection ONCE PRN, Starting on Thu01/01/18 at 1400, Until Thu01/01/18 at 1753, Intra-Operative (Intra-Procedure), Routine Given 01/01/2018 2:17 PM EDT 0.5 mg Right Arm Given 01/01/2018 2:11 PM EDT 0.5 mg Ri ght Arm Given 01/01/2018 2:06 PM EDT 0.5 mg Ri ght Arm documented in this encounter Active and Recently [...] RN) documented in this encounter Care Teams Imaging Scheduler Relationship Specialty Start Date End Date Nayla Miramontes MD [facility] [address] [facility] [address] [place] [address] PCP - General 05/21/11 05/10/21 documented as of this encounter
--- OUTSIDE RECORDS SUMMARY | 2024-03-07 18:57 | XMS_ITS | Encounter Summary ---
Author Organization [facility] Address [facility] [place] [address] Care Team Providers Care Bill Peddler Name Role Phone Nayla Miramontes MD Primary Care Provider Reason for Visit * Reason Comments Follow-up Encounter Details Date Type Department Care Team ([facility] st Contact Info) Description 03/06/2017 9:40 AM EST Office [place] [address] Darryl Burgos MD [facility] [place] [address] Psoriasis; Psoriatic arthritis Social History Tobacco Use [...] Sign Reading Time Taken Comments Blood Pressure 135/55 03/06/2017 9:07 AM EST Pulse 71 03/06/2017 9:07 AM EST Temperature 36.9 ??C (98.5 ??F) 03/06/2017 9:07 AM ES T Respiratory Rate - - Oxygen Saturation 95% 03/06/2017 9:07 AM EST Inhaled Oxygen Concentration - - Weight 82.6 kg (182 lb) 03/06/2017 9:07 AM EST Height 167.6 cm (5' 6) 03/06/2017 9:07 AM EST Body Mass Index 29.38 03/06/2017 9:07 AM EST documented in this encounter Patient Instructions * Patient Instructions* Darryl Burgos MD - 03/06/2017 9:40 AM EST 1) Resume every other week Humira, 40 mg. ?? 2) Continue twice daily Celebrex for now. 3) Return to follow up in three months. ?? documented in this encounter Progress Notes * Darryl Burgos MD - 03/06/2017 9:40 AM EST REASON FOR VISIT: Follow up for psoriatic arthritis and psoriasis. ? INTERVAL HISTORY: ?? The pt was a 61-year-old female, who returned for a follow up of psoriatic arthritis and psoriasis. The pt noted that since her last visit on March 25, 2017, she had not resumed adalimumab for immunosuppression of her psoriatic arthritis and psoriasis due to insurance issues. She felt that her overall neck pain, back pain, and joint pain remained largely stable while off adalimumab. She did complain of worsening left shoulder pain and decreased range of motion of the left shoulder.Otherwise, she had no fever, chest pain, dyspnea, dysuria, headache, easy bruising, rash, polydipsia, or psychosis. She did complain of severe constipation and mucus in stool. PAST MEDICAL HISTORY: ?? Psoriatic arthritis ?? [...] with her family. 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 She was currently applying for disability. ? FAMILY HISTORY: ?? ?Mother - Hypertension, hyperlipidemia, hypothyroidism; of cardiac aneurysm at the age of 48. ?? Father - Stroke x two; of a brain tumor at the age of 82. ?? ? PHYSICAL EXAMINATION: ?? Vitals 03/06/2017 SYSTOLIC 135 DIASTOLIC 55 PULSE 71 TEMPERATURE 98.5 Height (Monegasque) 5' 6 Height (Metric) 167.6 cm Weight (Monegasque) 182 lbs Weight (Metric) 82.555 kg BODY MASS INDEX 29.38 kg/m2 Pulse Oximetry 99 General - Alert, co-operative, no apparent distress, oriented x 3. ?? HEENT - PERRL, EOMI bilaterally, conjunctiva pink, no sclerae icterus or malar rash. Extremities - Upper extremities: + Decrease in range of motion of the left shoulder on abduction due to pain; no signs of synovitis, soft tissue swelling, or joint effusion; no clubbing, cyanosis, oredema. Skin - Smooth and intact, + dysmorphic toe nails, + mild psoriatic lesions on both forearms; no telangiectasia on skin or at all nail margins, sclerodactyly, or bruises. ?? Neuro - + Left eye blind; no motor function deficit. ?? Psych - Affect normal. ? IMPRESSION : ?? 1) Psoriatic arthritis and 2) psoriasis in a 61-year-old female. The pt's psoriatic arthritis and psoriasis was under poor control when she was off adalimumab and Celebrex. She previously failed methotrexate due to inadequate efficacy and worsening nausea. The pt was instructed to follow up [...] 1) Resume every other week Humira, 40 mg. ?? 2) Continue twice daily Celebrex for now. 3) Return to follow up in three months. ? Darryl Burgos MD, PhD documented in this encounter Plan of Treatment Upcoming Encounters Date Type Department Care Team (Late st Contact Info) Description 05/17/2024 2:30 PM EST Office Visit Gastroenterology at [place] [phone] Alcides Bonilla MD [facility] [place] [address] 04/06/2049 9:00 AM EST Hospital Encounter [place] [address] Harry Guerrero MD [facility] [place] [address] documented as of this encounter Visit Diagnoses Diagnosis Psoriasis Other psoriasis Psoriatic arthritis Psoriatic arthropathy documented in this encounter Care Teams Bill Peddler Relationship Specialty Start Date End Date Nayla Miramontes MD [facility] [address] [address] PCP - General 05/21/11 05/10/21 documented as of this encounter
--- OUTSIDE RECORDS SUMMARY | 2024-03-07 18:57 | XMS_ITS | Encounter Summary ---
Author Organization [facility] [place] [address] Care Team Providers Care Green Pipefitter Name Role Phone Nayla Miramontes MD Primary Care Provider [phone] Reason for Visit * Reason Comments Diabetes Encounter Details Date Type Department Care Team ([facility] st Contact Info) Description 01/27/2017 10:00 AM EDT Office [place] [address] Roseanne Kay [facility] [place] [address] Type 1 diabetes mellitus with retinopathy of [...] Sign Reading Time Taken Comments Blood Pressure 133/54 01/27/2017 9:47 AM EDT Pulse 73 01/27/2017 9:47 AM EDT Temperature - - Respiratory Rate - - Oxygen Saturation - - Inhaled Oxygen Concentration - - Weight 83 kg (183 lb) 01/27/2017 9:47 AM EDT Height 167.6 cm (5' 6) 01/27/2017 9:47 AM EDT Body Mass Index 29.54 01/27/2017 9:47 AM EDT documented in this encounter Patient Instructions * Patient Instructions* Roseanne Kay APRN - 01/27/2017 10:00 AM EDT Call [employer] Then call [phone] if endocrinology has to do something Other supply co is [facility] [phone] documented in this encounter Progress Notes * Roseanne Kay APRN - 01/27/2017 10:00 AM EDT REASON FOR VISIT: Followup type 1 DM. BRIEF HISTORY: Presents and states she has been removed from medicaid. Has medicare. Pump supplier is [employer], which is new to patient. States she is having a lot of trouble getting her supplies. Has run out of Quick-sets and is here to see what she needs to do to be able to get her supplies from [employer]. Has had to stop using the pump. DIABETES REGIMEN: Lantus 8-10 units twice a day, Humalog up to 8 units 3 times a day. When she resumes the pump she plans to use the pump settings that were reviewed from October 17, [address] Gloria Pimentel. SBGM 6 times a day. Reason for higher frequency testing is to avoid severe hypoglycemia and avoid severe hyperglycemia. She has hypoglycemia unawareness. PAST MEDICAL HISTORY: Depression, urinary incontinence, diabetic retinopathy, vitreus hemorrhage of right eye, dysphagia, constipation, scoliosis, chronic low back pain, seborrheic keratosis, psoriatic arthritis, type 1 DM diagnosed at age 16, DKA, reflux esophagitis, gastritis, hypertension, hyperlipidemia, hypothyroidism, psoriasis, iron deficiency, asthma, Giron's esophagus. REVIEW OF SYSTEMS: Depression and mood: Is very frustrated with having to stop the pump because of lack of Quick-sets. Eyes followed closely by hearing aid technician. No recent headaches or chest pain or shortness of breath. GI: Symptoms vary. Extremities: Has some joint pains. Takes celebrex. Other: States she is getting more forgetful. PHYSICAL EXAM: Appearance: She appears in good health. Eyes: Scars noted with green light exam. Neck: No thyromegaly or lymphadenopathy. Heart: Regular rate, rhythm. Lungs are clear to auscultation. Feet: Skin is normal. Pulses are normal. Neuro: Normal sensation to 10 g of pressure. Blood pressure 133/54. Weight 183 pounds. She had a hospital admission earlier this year for mild DKA. IMPRESSION AND PLAN: DM type 1 with complication of retinopathy. COMMERCIAL CONSTRUCTION ESTIMATOR spoke with Violeta and she is going to call [employer] again today. She called them yesterday. Advised patient to call [employer] today to determine what is the problem with filling her pump supplies. Needs to have followup visits every 90 days per medicare while using an insulin pump. Return to office in 90 days. Will check hemoglobin A1c. Hypothyroidism. Will recheck TSH in 90 days. This was a 38 minute office visit with 27 minutes spent counseling [id number] with patient in the management of glucose levels, trying to determine if endocrinology can help patient get pump supplies in a timely manner. Reviewed the importance of rotating injection sites. Immunization up date, flu vaccine given. Patient could not remember if she has had a flu vaccine yet this fall. documented in this encounter Plan of Treatment Upcoming Encounters Date Type Department Care Team (Late st Contact Info) Description 05/17/2024 2:30 PM EST Office [place] [address] Alcides Bonilla MD [facility] [place] [address] 04/06/2049 9:00 AM EST Hospital En[place] [address] Harry Guerrero MD [facility] [place] [address] documented as of this encounter Visit Diagnoses Diagnosis Type 1 diabetes mellitus with retinopathy of both eyes without macular edema, unspecified retinopathy severity documented in this encounter Care Teams Green Pipefitter Relationship Specialty Start Date End Date Nayla Miramontes MD [address] [place] [address] PCP - General 05/21/11 05/10/21 documented as of this encounter
--- OUTSIDE RECORDS SUMMARY | 2024-03-07 18:57 | XMS_ITS | Encounter Summary ---
[place] [address] Care Team Providers Care Media Producer Name Role Phone Nayla Miramontes MD Primary Care Provider [phone] Reason for Visit * Reason Onset Date Comments Results 03/17/2017 Encounter Details Date Type Department Care Team ([facility] Contact Info) Description 03/17/2017 Telephone [place] [phone] Miller Agustin, RN Results Social History Tobacco Use Types Packs/Day Years [...] Telephone Encounter - Miller Agustin RN - 03/17/2017 2:38 PM EST Patient sent two [employer] messages by Dr. Castanon. Message unread. Left patient message to check her [employer] account or call clinic to discuss recent test results and recommendations. documented in this encounter Plan of Treatment Upcoming Encounters Date Type Department Care Team (Late Contact Info) Description 05/17/2024 2:30 PM EST Office Visit [place] [address] Alcides Bonilla MD [facility] [place] [address] 04/06/2049 9:00 AM EST Hospital Encounter [place] [address] Harry Guerrero MD [facility] [address] [place] [address] documented as of this encounter Visit Diagnoses Not on filedocumented in this encounter Care Teams Media Producer Relationship Specialty Start Date End Date Nayla Miramontes MD [facility] ANABELLA LÓPEZ [address] [place] [address] PCP - General 05/21/11 05/10/21 documented as of this encounter
--- OUTSIDE RECORDS SUMMARY | 2024-03-07 18:57 | XMS_ITS | Encounter Summary ---
Author Organization [facility] [place] [address] Care Team Providers Care Solar Process Engineer Name Role Phone Nayla Miramontes MD Primary Care Provider [phone] Encounter Details Date Type Department Care Team (Late st Contact Info) Description 05/12/2018 [place] [phone] Luis Haywood MD [facility] [place] [address] Social History Tobacco Use Types Packs/Day Years [...] 2:30 PM EST Office [place] [address] Alcides Bonilla MD [facility] [place] [address] 04/06/2049 9:00 AM EST Hospital Encounter [place] [address] Harry Guerrero MD [facility] DR [place] [address] documented as of this encounter Visit Diagnoses Not on filedocumented in this encounter Care Teams Solar Process Engineer Relationship Specialty Start Date End Date Nayla Miramontes MD [facility] ANABELLA LÓPEZ [address] [address] PCP - General 05/21/11 05/10/21 documented as of this encounter
--- OUTSIDE RECORDS SUMMARY | 2024-03-07 18:57 | XMS_ITS | Encounter Summary ---
Author Organization [facility] [place] [address] Care Team Providers Care Process Manufacturing Engineer Name Role Phone Nayla Miramontes MD Primary Care Provider [phone] Reason for Visit * Reason Comments Diabetes Encounter Details Date Type Department Care Team (Latest Contact Info) Description 06/12/2016 10:00 AM EST Office Visit Endocrinology at [facility] [place] [address] Hazel Calderon, [facility] [place] [address] Uncontrolled type 1 diabetes mellitus with hyperglycemia Social History [...] Sign Reading Time Taken Comments Blood Pressure 156/60 06/12/2016 9:54 AM EST Pulse 66 06/12/2016 9:54 AM EST Temperature - - Respiratory Rate - - Oxygen Saturation 99% 06/12/2016 9:54 AM EST Inhaled Oxygen Concentration - - Weight 84.8 kg (187 lb) 06/12/2016 9:54 AM EST Height 167.6 cm (5' 5.98) 06/12/2016 9:54 AM ES T Body Mass Index 30.2 06/12/2016 9:54 AM EST documented in this encounter Patient Instructions * Patient Instructions* Hazel Oshea LD - 06/12/2016 10:00 AM EST Goals Test BG fasting right when you wake up. Breakfast: 2 days per week- oatmeal 2 days per week 2 eggs with toast 2 days per week yogurt with cinnamon and applesauce 1 day per week special k with protein Lunch: consider making more of your own soup Dinner: Meat, veg and protein Consider adding a vegetable at both lunch and dinner to avoid over eating other food groups 5 veg per day 2 fruits per day 3oz protein at lunch and dinner Consider Feng'Chi or Yoga classes for beginners Treatment of Low Blood Sugar (Hypoglycemia) If your BG is lower than 70, you are likely to feel shaky, sweaty and lightheaded. This is a signalthat your body needs more sugar. The RULE of 15: Check BG, if it is lower than 70 mg/dL treat with 15 grams of carb quickly by eating or drinking a straight sugar carb, such as: 4 ounces fruit juice or regular (not diet) soda 6 lifesavers 1 small box of raisins 4 glucose tablets (~15 gm of glucose) Sit and rest and you should feel better within 15 minutes. After waiting 15 minutes recheck BG. If your BG is still not >70 mg/dL repeat the treatment. Drinking too much juice at once can then cause hyperglycemia. If your BG is very low <50, you can double the amount above or take 30 gm of glucose gel/tablets. *Avoid having a candy bar or cookie for treatment of a low as the other ingredients will take a longer time to bring the BG up. Once you are feeling better, try to determine why your BG was so low. Common causes of hypoglycemiainclude skipping a meal, lots of exercise, too much insulin or any combination of these things. Understanding the cause my help you to avoid another low BG in the future. Call your doctor for blood sugars less than 80 or greater than 300 twice in one day to have your insulin doses adjusted. [facility] Endocrine clinic office documented in this encounter Progress Notes * Hazel Oshea LD - 06/12/2016 10:00 AM EST Images from the original note were not included. Diabetes and Nutrition Note Goals Goals Test BG fasting right when you wake up. Breakfast: 2 days per week- oatmeal 2 days per week 2 eggs with toast 2 days per week yogurt with cinnamon and applesauce 1 day per week special k with protein Lunch: consider making more of your own soup Dinner: Meat, veg and protein Consider adding a vegetable at both lunch and dinner to avoid over eating other food groups 5 veg per day 2 fruits per day 3oz protein at lunch and dinner Consider Feng'Chi or Yoga classes for beginners Treatment of Low Blood Sugar (Hypoglycemia) If your BG is lower than 70, you are likely to feel shaky, sweaty and lightheaded. This is a signalthat your body needs more sugar. The RULE of 15: Check BG, if it is lower than 70 mg/dL treat with 15 grams of carb quickly by eating or drinking a straight sugar carb, such as: 4 ounces fruit juice or regular (not diet) soda 6 lifesavers 1 small box of raisins 4 glucose tablets (~15 gm of glucose) Sit and rest and you should feel better within 15 minutes. After waiting 15 minutes recheck BG. If your BG is still not >70 mg/dL repeat the treatment. Drinking too much juice at once can then cause hyperglycemia. If your BG is very low <50, you can double the amount above or take 30 gm of glucose gel/tablets. *Avoid having a candy bar or cookie for treatment of a low as the other ingredients will take a longer time to bring the BG up. Once you are feeling better, try to determine why your BG was so low. Common causes of hypoglycemiainclude skipping a meal, lots of exercise, too much insulin or any combination of these things. Understanding the cause my help you to avoid another low BG in the future. Call your doctor for blood sugars less than 80 or greater than 300 twice in one day to have your insulin doses adjusted. [facility] Endocrine clinic office Assessment Roxann Baxter is a 60 y.o. female here today with T1DM. Pt still struggling with BGs. Recent Labs 02/13/16 0702 10/30/15 1039 HA1C 9.4* 10.2* BP 156/60 Pulse 66 Ht 167.6 cm (5' 5.98) Wt 84.8 kg (187 lb) LMP (LMP Unknown) SpO2 99% BMI 30.2 kg/m2 Pt lost 30 pounds over time Pt hasn't had heart burn in a long time Pt has gastroparesis Pt says when she eats something it gets in stomach and slows down or even stops and therefor she has to time her insulin just right to avoid a high and low BG after eating. Pt recently released from hospital. Pt had a surgery for hyatal hernia Pt will feel hungry but when she goes to eat something she won't eat that much. Pt is watching fats and fried foods. Diet: Breakfast: Hot cereal-multigrain oatmeal type cereal pt puts salt and smart balance Lunch: Soup- tomato soup, pacific organic Dunner: snuff grinder, mac and cheese 3/4 cup, Has trouble getting around and standing for a long period of time Bread is hard for her Pt drinks smoothies - gives a bolus for that yogurt and fruit, glucerna shakes with yogurt Will start cooking for family again Not eating veggies Discussed carb counting and proper use of insulin pump, discussed exercise, treating hypo and controlin BG Pt needs to test BG more and change infusion site as orderd. 30 min MNT documented in this encounter Plan of Treatment Upcoming Encounters Date Type Department Care Team (Late st Contact Info) Description 05/17/2024 2:30 PM EST Office [place] [address] Alcides Bonilla MD [facility] [place] [address] 04/06/2049 9:00 AM EST Hospital [place] [phone] Harry Guerrero MD [facility] [place] [address] documented as of this encounter Visit Diagnoses Diagnosis Uncontrolled type 1 diabetes mellitus with hyperglycemia documented in this encounter Care Teams Process Manufacturing Engineer Relationship Specialty Start Date End Date Nayla Miramontes MD Jale[facility] [address] [place] [address] PCP - General 05/21/11 05/10/21 documented as of this encounter
--- OUTSIDE RECORDS SUMMARY | 2024-03-07 18:57 | XMS_ITS | Encounter Summary ---
Author Organization [facility] [place] [address] Care Team Providers Care Pasteurizing Supervisor Name Role Phone Nayla Miramontes MD Primary Care Provider [phone] Encounter Details Date Type Department Care Team (Late st Contact Info) Description 10/01/2016 4:00 PM EDT Office [place] [address] Gloria Pimentel MD [facility] [place] [address] Uncontrolled type 1 diabetes mellitus with retinopathy, macular edema presence unspecified, unspecified laterality, unspecified retinopathy severity; Hypothyroidism, unspecified type Social [...] Sign Reading Time Taken Comments Blood Pressure 119/42 10/01/2016 3:43 PM EDT Pulse 80 10/01/2016 3:43 PM EDT Temperature - - Respiratory Rate - - Oxygen Saturation - - Inhaled Oxygen Concentration - - Weight 81.2 kg (179 lb) 10/01/2016 3:43 PM EDT Height 165.1 cm (5' 5) 10/01/2016 3:43 PM EDT Body Mass Index 29.79 10/01/2016 3:43 PM EDT documented in this encounter Progress Notes * Gloria Pimentel MD - 10/01/2016 4:00 PM EDT Endocrinology Clinic Follow-up Visit Reason for Visit: Follow-up of Diabetes Mellitus Type 1 HISTORY OF PRESENT ILLNESS: Ms. Roxann Baxter is a 61 y.o. year old lady with history significant for psoriatic arthritis [place]. Burgos's [place] [facility] DM type 1 and hypothyroidism Had fundoplication in May [address] [facility]. Had a good weight loss recently, in part due to a soft dietpost-op, lost 3 pant sizes. Also still has gastroparesis issues, but better than prior to her surgery. Acid reflex is better. Went into DKA after getting steroid injection into L shoulder - was hospitalized at [facility] for that. Was hospitalized again in early July 2016 with DKA in the setting of a febrile URI. For the past 1 week, BG have been high despite bolusing for everything she eats. Had a BG of 600 a couple days ago, managed to bring it down, didn't have ketones at the time. Fasting this AM was 200s, which is unusual for her. Just changed her pump set, insulin in reservoir is fresh, keeps them in the fridge. Has been feeling more achy this week as well - she is worried she might be starting to mendoza ve a psoriatic arthritis flare. Pain has been interfering with her sleep as well. PCP checked TFTs 1 month ago - she reports she was told it was WNL. I do not have these results today. Date of Diagnosis: 43 years ago (dx age 16). ?? Last HgbA1c: reports 7%-range at PCP office 1 month ago, 9.4% (today, 05/16/15), 10.0% (01/2015) ?? Current Diabetes Medication regimen: humalog insulin pump - now has the Medtronic 630G, but without the CGM due to insurance not covering. Basal - MN 0.600 4a 0.650 --> 0.675 9:30a 0.825 3:30p 0.850 7p 0.750 Bolus - CR 1:12g, CF 1:25 above 130 mg/dL. ?? FSBG regimen: 4-7x/day 10/01 200 9a 356 11a 09/30 cheerios 321 11a (2h p) 222 10p 09/29 278 9a 331 4p 09/28 Omelet + toast 105 12p 279 8p 09/27 Cream of wheat 174 12p 116 5p 201 10p 09/26 277 12p 279 2p 87 6p 93 9p 09/25 168 11a 532 2p 600 4p 545 5p 417 7p 305 8p 103 11p Hypoglycemia: frequent, last was a couple days ago 52 mg/dL. Has been as low as 40mg/dL. No syncopefor the past year though. ?? Diet Smoking: quit in 1984. ?? History of complications 1) Nephropathy - Um:cr <3 (05/16/15) , sCr 0.9 (today, 05/16/15) 2) Neuropathy - no n/t in feet. 3) Retinopathy - Last ophtho evaluation 4) CV disease - LDL 88 (06/2014) PAST MEDICAL HISTORY: Patient Active Problem List [...] mellitus 03/08/2011 ??? Diabetes mellitus MEDICATIONS: Medications 10/01/16 1549 Medication Sig Taking? atorvastatin (LIPITOR) 40 mg Tablet Yes celecoxib (CELEBREX) 100 mg Capsule Yes gabapentin (NEURONTIN) 300 mg Capsule Take 1 capsule by mouth 3 times daily. Yes Adalimumab (HUMIRA PEN) 40 mg/0.8 mL Pen Injector Kit Inject 0.8 mLs subcutaneously every 14 days. Yes nefazodone (SERZONE) 100 mg Tablet Take 1 tablet by mouth 2 times daily. Yes Diabetic Supp[place] [facility] [place] 1 each subcutaneously 4 times daily. [phone]. Dx Code: 250.01 Yes Diabetic Supplies, [place]. [facility] [place] [employer]. Yes levothyroxine (SYNTHROID) 175 mcg Tablet Take 175 mcg by mouth daily. Yes Diabetic Supplies, Miscellan. [facility] Yes polyethylene glycol (MIRALAX) 17 gram/dose Powder [...] HPI. PHYSICAL EXAM: Vitals Office Visit from 10/01/2016 in Endocrinology Weight - Scale 81.2 kg (179 lb) Height 165.1 cm (5' 5) BSA (Calculated - sq m) 1.93 sq meters BMI (Calculated) 29.8 Heart Rate 80 BP 119/42 Gen: NAD, AAOx3, speaking full sentences, calm pleasant demeanor, slightly overweight habitus Foot exam: no wounds or sores ASSESSMENT: 61 yo F with DM type 1 and hypothyroidism, BG levels have been variable lately, sometimes at goal but sometimes spiking to 500-600s, not having hypoglycemia however. Reports a POCT A1c 1 month ago in the 7% range, but in the last couple of weeks has had more frequent BG spikes into the 200s and as high as >600 one time, for reasons unclear to her. She feels like a psoriatic arthritis flare may be coming on, which could be a reason for the worsened control. Also, gastroparesis-related mismatching of her insulin bolus and food transit/absorption may be playing a role here. Sometimes her bolus works very well, however, as recently as 3-4 days ago, and her correction factor seemsto fix her high blood sugars fairly effectively, so changing her bolus settings does not seem appropriate. For her fasting blood sugars, we are missing some checks, but for the ones that she has done, she has seemed to run in the 200s lately, so I will go ahead and increase her 4a-9:30am basal rateby one notch (0.650 --> 0.675 units/hr) today. I do think she needs more frequent diabetes follow-up; she got a bit lost to follow-up for some reason since her last visit with me over a year ago. I will have her follow-up every 3 months in the near future, until we get her diabetes under better control. In regards to her hypothyroidism, she reports a recent TFT check by her PCP 1 month ago being WNL, but that result is not currently available to me. She is clinically euthyroid-appearing however, so she can continue on her current LT4 dose, but I will plan to check a TSH level at her next appointment with us. PLAN: 1. DM type 1 MN 0.600 --> no change 4a 0.650 --> 0.675 9:30a 0.825 --> no change 3:30p 0.850 --> no change 7p 0.750 --> no change Continue CR 1:12g and CF 1:25mg/dL above 130. 2. Hypothyroidism - continue current LT4 dose. Will check TSH next visit 3. Follow-up - in 3 months with Roseanne Kay APRN and in 6 months with myself. Labs 1 hour prior to each appt. 25 min of this 40 min face to face visit was spent in counseling the patient on DM mgmt. GLORIA PIMENTEL MD Lead Mechanical Engineercuff folder Section of Endocrinology [facility] documented in this encounter Plan of Treatment Upcoming Encounters Date Type Department Care Team (Late st Contact Info) Description 05/17/2024 2:30 PM EST Office [place] [address] Alcides Bonilla MD [facility] [place] [address] 04/06/2049 9:00 AM EST Hospital En[place] [address] Harry Guerrero MD [facility] [place] [address] documented as of this encounter Visit Diagnoses Diagnosis Uncontrolled type 1 diabetes mellitus with retinopathy, macular edema presence unspecified, unspecified laterality, unspecified retinopathy severity Hypothyroidism, unspecified type documented in this encounter Care Teams Pasteurizing Supervisor Relationship Specialty Start Date End Date Nayla Miramontes MD [facility] ANABELLA LÓPEZ [facility] [address] [place] [address] PCP - General 05/21/11 05/10/21 documented as of this encounter
--- OUTSIDE RECORDS SUMMARY | 2024-03-07 18:57 | XMS_ITS | Encounter Summary ---
[place] [address] Care Team Providers Care Automatic Dispenser Mechanic Name Role Phone Nayla Miramontes MD Primary Care Provider [phone] Encounter Details Date Type Department Care Team (Late st Contact Info) Description 05/17/2018 Notes [place] [phone] Esha Morse Social History Tobacco Use Types Packs/Day Years [...] as of this encounter Progress Notes * Esha Morse - 05/17/2018 3:14 PM EST MAP - Application to Patient Per specialty pharmacy referral, I mailed letter with the application for Humira (Abbvie) to Ms. Baxter for her to complete, sign, and return to me with proof of income. I will follow through with the application once everything is returned to me. [phone] documented in this encounter Plan of Treatment Upcoming Encounters Date Type Department Care Team (Late st Contact Info) Description 05/17/2024 2:30 PM EST Office [place] [address] Alcides Bonilla MD [facility] [place] [address] 04/06/2049 9:00 AM EST Hospital [place] [address] Harry Guerrero MD [facility] DR [place]STRO[place] [address] documented as of this encounter Visit Diagnoses Not on filedocumented in this encounter Care Teams Automatic Dispenser Mechanic Relationship Specialty Start Date End Date Nayla Miramontes MD [facility] ANABELLA LÓPEZ [facility] [address] [place] [address] PCP - General 05/21/11 05/10/21 documented as of this encounter
--- OUTSIDE RECORDS SUMMARY | 2024-03-07 18:58 | XMS_ITS | Encounter Summary ---
Author Organization [facility] Address [facility] [place] [address] Care Team Providers Care Customer Associate Name Role Phone Nayla Miramontes MD Primary Care Provider [phone] Reason for Visit * Auth/Cert Specialty Diagnoses / Procedures Referred By Franklin laird Referred To Contact Diagnoses Morbid obesity PARAESOPHAGEAL HERNIA Procedures PRO LAPAROSCOPY, SURG, REPAIR PARAESOPHAGEAL HERNIA, W/O IMPLANTATION OF MESH LAPAROSCOPIC PARAESOPHAGEAL HERNIA REPAIR W/FUNDOPLASTY, W/O MESH MODIFIER, HIATAL HERNIA Referral ID Status Reason Start Date Expiration Date Visits Re quested Visits Authorized [id number] 1 1 Encounter Details Date Type Department Care Team (Latest Contact Info) Description 05/08/2016 8:54 AM [facility] - 05/16/2016 2:59 PM [facility] Encounter [address] [place] [address] Sonja Perez MD [facility] [place] [address] Morbid obesity due to excess calories Discharge Disposition: Home with VNA Social History Tobacco Use Types Packs/Day Years [...] Sign Reading Time Taken Comments Blood Pressure 107/56 05/16/2016 11:22 AM EST Pulse 65 05/12/2016 3:49 AM EST Temperature 36.9 ??C (98.4 ??F) 05/16/2016 1 1:22 AM EST Respiratory Rate 18 05/16/2016 11:2 2 AM EST Oxygen Saturation 95% 05/16/2016 11: 22 AM EST Inhaled Oxygen Concentration - - Weight 87.5 kg (192 lb 12.8 oz) 05/08/2016 9:11 AM EST Height 167.6 cm (5' 6) 05/08/2016 9:11 AM EST Body Mass Index 31.12 05/08/2016 9:11 AM EST documented in this encounter Discharge Summaries * Kristina Wood MD - 05/16/2016 10:42 AM EST Inpatient - Discharge Summary Patient Name: Roxann Baxter Patient Age: 60 y.o. Birthdate: 1955 Admit date: 05/08/2016 Discharge date and time: 05/16/2016 Attending Physician: Sonja Perez MD Primary Diagnosis: Morbid obesity Secondary Diagnosis: Active Hospital Problems Diagnosis ??? Morbid obesity Resolved Hospital Problems Diagnosis Date Resolved No resolved problems to display. Active Non-Hospital Problems Diagnosis ??? MDD (major depressive disorder), recurrent episode, moderate ??? Presence of insulin pump ??? Pseudophakia of both eyes (OD - 10/17/14, OS - 09/26/14) ??? Urinary incontinence ??? Diabetic retinopathy ??? Vitreous hemorrhage of right eye ??? IDDM (insulin dependent diabetes mellitus) ??? Dysphagia ??? Constipation ??? PDR (proliferative diabetic retinopathy) ??? Scoliosis ??? Chronic low back pain ??? Seborrheic keratosis ??? Solar lentigo ??? Xerosis cutis ??? Pruritus ??? Nuclear sclerosis ??? Proliferative diabetic retinopathy of both eyes.-mild resolving bilateral vitreous hemorrhages.No traction. Good PRP. ??? Psoriatic arthritis.currently on Hydroxychloroquine. No signs of hydroxychloroquine retinopathy. Recommend close followup. ??? PDR (proliferative diabetic retinopathy) ??? Cortical cataract ??? Retinal neovascularization of right eye ??? Vitreous hemorrhage of left eye ??? PSC (posterior subcapsular cataract), bilateral ??? Type 1 diabetes mellitus ??? Reflux esophagitis ??? Gastritis ??? Anasarca ??? DKA (diabetic ketoacidoses) ??? Hypertension ??? Hyperlipidemia ??? Hypothyroidism ??? Psoriasis ??? Depression ??? Iron deficiency ??? Asthma ??? Microcytic anemia ??? GERD (gastroesophageal reflux disease) ??? Giron's esophagus ??? Diabetic retinopathy associated with type 1 diabetes mellitus ??? Diabetes mellitus HPI: From Dr. Perez H&P: 60 y.o. female, Body mass index is 33.27 kg/(m^2)., with Type I DM on continuous insulin via pump,who is known to Dr. Perez since 2013. She initially presented for evaluation of severe GERD with esophagitis, as well as a moderate sized Hiatal Hernia, and her extensive workup and symptomatology aresuggestive of both severe GERD (with esophagitis, non-dysplastic Giron's, and Type I HH, possibleparaesophageal component), as well as esophageal dysmotility and mild gastroparesis. ? Her surgical options were reviewed at her last visits, including anti-reflux surgery (fundoplication) with hiatal hernia repair, or gastric bypass surgery. She has since attended the introductory Bariatric Information session to explore the scope of the bariatric program and the lifestyle alterations that are involved after gastric bypass surgery. She returns to us for further discussion of her clinical picture and to finalize surgical decision making regarding her GERD. ? At this visit she endorses continous symptoms of acid reflux despite sleeping on a ramp and BID PPI. She is interested in surgical intervention and after attending the Bariatric Information session, feels like the discussion often does not pertain to her because her reasons for choosing a laparoscopic gastric bypass would be different (GERD v obesity). Operations/Major Procedures: Operations: 05/08/2016 Surgeon(s) and Role: * Sonja Perez MD - Primary * TemoMinerva jin MD: Procedure(s): LAPAROSCOPIC PARAESOPHAGEAL HERNIA REPAIR W/FUNDOPLASTY, W/O MESH (WRVU 26.6) MODIFIER, HIATAL HERNIA Operative Findings: Approximately one-third of the stomach was in the chest, which was reduced with gentle traction. Hospital Course: Roxann Baxter was taken to the operating room where the above procedures were performed. She tolerated the operation well and without complication. She was admitted post-operatively for clinical monitoring and further management. She was slow to progress post-operatively and had issues with controlling her blood glucose levels (she is a type I diabetic). She also had persistent nausea and at one point dysphagia. A barium swallow revealed no leak and evidence of dysmotility. She was started on erythromycin which improved her motility and nausea. She also was restarted on a home psychiatric medication and this significantly improved her affect. By POD 8, she was back on her insulin pump with adequate control, tolerating her post-asia diet, having bowel movements, voiding spontaneously and otherwise stable for discharge to home. Pending Lab Data at Discharge: None Condition at Discharge: Stable Important Studies and Lab Data: Labs: Recent Results (from the past 24 hour(s)) POCT Glucose Result Value Ref Range POC Glucose 239 (H) 65 - 199 mg/dL POCT Glucose Result Value Ref Range POC Glucose 182 65 - 199 mg/dL POCT Glucose Result Value Ref Range POC Glucose 140 65 - 199 mg/dL POCT Glucose Result Value Ref Range POC Glucose 98 65 - 199 mg/dL POCT Glucose Result Value Ref Range POC Glucose 92 65 - 199 mg/dL POCT Glucose Result Value Ref Range POC Glucose 183 65 - 199 mg/dL Studies: Xr Fluoro Barium Swallow Result Date: 05/13/2016 EXAMINATION: XR FLUORO BARIUM SWALLOW CLINICAL HISTORY: Pt is s/p paraesophageal hernia repair withtoupet fundoplicaion now c/o dysphagia TECHNIQUE: Computer Systems Software Architect radiograph of the upper abdomen was obtained. Single contrast esophagram was performed with water-soluble contrast (Omnipaque 300) followed by thin barium. Fluoroscopic spot images and radiographs were obtained in multiple projections. Fluoroscopic time: 1.63 minutes COMPARISON: Multiple prior exams, most recently 02/11/2016 esophagram FINDINGS: Computer Systems Software Architect radiograph demonstrates partially imaged nonobstructive bowel gas pattern. There is airless lung in the left base, likely representing atelectasis and postsurgical change. The esophagus distends well. No contrast extravasation is seen with water-soluble contrast or thin barium. The gastroesophageal junction is narrow, compatible with fundoplication wrap. Primary and secondary peristalticwaves do not clear the esophagus. Tertiary waves are noted throughout the esophagus. The esophagus clears slowly in upright positioning via gravity The airless lung in the left lung base limits identi fication of the exact position of the gastroesophageal junction, however no recurrent hiatal herniais identified. 1. No evidence of leak. 2. Marked esophageal dysmotility. I have personally reviewed the image(s) and the residents interpretation and agree with the findings, Jorgito Jones at 05/13/2016 3:01 PM Exam: Temp: [36.9 ??C (98.4 ??F)-37.4 ??C (99.3 ??F)] Heart Rate: -- Resp: [16-18] BP: (107-139)/(45-95) SpO2: [93 %-97 %] Heart Rate from SPO2: [72 bpm-84 bpm] I/O last 3 completed shifts: In: 2660 [P.O.:2660] Out: 1900 [Urine:1900] I/O this shift: In: 320 [P.O.:320] Out: 300 [Urine:300] Physical Exam: General: NAD, A&Ox3, resting in bed HEENT: NC/AT CVS: RRR, no m/r/g Pulm: CTAB, no wheezes or rhonchi, breathing comfortably on RA Abd: soft, appropriately tender, port sites c/d/i with steri-strips and bandaids, obese, non-distended Ext: warm and well perfused Neuro: Grossly intact, nonfocal, moving all four extremities spontaneously. Discharge to: Home Discharge Conditions/Prognosis: Stable Discharge Medications: Your Medications New Medications Dose Details erythromycin 200 mg/5 mL Susr Commonly known as: EES Take 5 mLs by mouth 3 times daily (with meals). 200 mg Quantity: 500 mL Refills: 0 oxyCODONE 5 mg/5 mL Soln Commonly known as: ROXICODONE Take 5-10 mLs by mouth every 4 hours as needed for Pain. 5-10 mg Quantity: 200 mL Refills: 0 Continued medications with new dosing Dose Details bisacodyl 10 mg Supp Commonly known as: DULCOLAX Place 1 suppository rectally daily. What changed: - when to take this - reasons to take this 10 mg Quantity: 60 suppository Refills: 3 celecoxib 100 mg Cap Commonly known as: CeleBREX What changed: Another medication with the same name was removed. Continue taking this medication, and follow the directions you see here. Refills: 0 esomeprazole 40 mg Cpdr Commonly known as: NexIUM Take 1 capsule by mouth daily for 7 days. What changed: when to take this 40 mg Quantity: 7 capsule Refills: 0 Continued medications, unchanged Dose Details Adalimumab 40 mg/0.8 mL Pnkt Commonly known as: HUMIRA PEN Inject 0.8 mLs subcutaneously every 14 days. 40 mg Quantity: 4 kit Refills: 1 atorvastatin 40 mg Tab Commonly known as: LIPITOR Refills: 0 bethanechol 10 mg Tab Commonly known as: URECHOLINE Take 1 tablet by mouth 3 times daily. 10 mg Quantity: 90 tablet Refills: 3 * Diabetic Supplies, Miscellan. Misc [place] MNF faxed to [facility] Quantity: 100 each Refills: 12 * Diabetic Supplies, Miscellan. Misc Inject 1 each subcutaneously 4 times daily. Faxed pump and supply order to [employer] at [phone]. Dx Code: 250.01 1 each Quantity: 100 each Refills: 12 * Diabetic Supplies, Miscellan. Misc CGM faxed to [employer]. Quantity: 600 each Refills: 3 gabapentin 300 mg Cap Commonly known as: NEURONTIN Take 1 capsule by mouth 3 times daily. 300 mg Quantity: 90 capsule Refills: 11 insulin glargine Soln Commonly known as: LANTUS Inject 18 Units subcutaneously daily. 1 vial = 10ml = 1,000 units Indications: Type 1 Diabetes Mellitus 18 Units Quantity: 10 mL Refills: 5 insulin lispro Soln Commonly known as: humaLOG Inject 65 Units subcutaneously continuous. Via insulin pump 65 Units Refills: 0 levothyroxine 175 mcg Tab Commonly known as: SYNTHROID Take 175 mcg by mouth daily. 175 mcg Refills: 0 lisinopril 20 mg Tab Commonly known as: PRINIVIL;ZESTRIL Take 1 tablet by mouth daily. 20 mg Quantity: 30 tablet Refills: 0 melatonin 3 mg Tab Take 9 mg by mouth nightly. 9 mg Refills: 0 MULTI-VITAMIN ORAL Take 1 tablet by mouth daily. 1 tablet Refills: 0 nefazodone 100 mg Tab Commonly known as: SERZONE Take 1 tablet by mouth 2 times daily. 100 mg Quantity: 30 tablet Refills: 0 ondansetron 8 mg Tbdl Commonly known as: ZOFRAN-ODT Take 1 tablet by mouth every 8 hours as needed for Nausea. 8 mg Quantity: 20 tablet Refills: 11 polyethylene glycol 17 gram/dose Powd Commonly known as: MIRALAX Take 34 g by mouth 2 times daily. 34 g Quantity: 255 g Refills: 3 * Notice: This list has 3 medication(s) that are the same as other medications prescribed for you. Read the directions carefully, and ask your doctor or other care provider to review them with you. STOPPED Medications lubiprostone 24 mcg Cap Commonly known as: AMITIZA metoclopramide 10 mg Tab Commonly known as: REGLAN Updated Allergies/ADRs: Allergies Allergen Reactions ??? Codeine Phosphate Nausea Only ??? Propoxyphene N-Acetaminophen Nausea Only Follow-up Recommendations for Providers: Please see Ms. Baxter within 1 week post-operatively to assess glucose management as she is now on a full liquid diet in her immediate post-operative period s/p a toupet fundoplication. PCP: Nayla Miramontes MD Scheduled Appointments: Future Appointments Date Time Provider Department Center 06/02/2016 11:00 AM Darryl Burgos MD [facility] 06/09/2016 3:00 PM Sonja Perez MD [facility] 06/12/2016 10:00 AM Hazel Oshea LD [facility] End[facility] Outpatient Services/Studies: Referral to Home Health - at DISCHARGE Scheduling Instructions: DOCUMENTATION FOR VNA SERVICES (INCLUDING THOSE PATIENTS WITH MEDICARE COVERAGE REQUIRING HOME VNA SERVICES AND/OR HOSPICE SERVICES) PATIENT'S LOCATION: Roxann Baxter [address] [place] [id number] (home) Cell: No relevant phone numbers on file. Solar Photovoltaic Electrician's Name: Self In discussion with the attending physician, it is certified that this patient is under their care and that they, or a Nurse Practitioner,Clinical Nurse specialist or Physician Refrigeration Repair Supervisor who is working directly with them, had a face to face encounter that meets the physician face to face encounter requirements with this patient on 05/16/2016 The encounter with the patient was in whole, or in part, for the following medical condition, whichis the primary reason for home health care services: Morbid obesity In discussion with the provider, it is certified that, based on their findings, the following services are medically necessary for home health services. To provide the following care/treatments with the clinical findings supporting the need for services as follows: HOME CARE ORDERS: RN ORDERS:Assess wound or incision, vital signs, cardiopulmonary status, nutrition, hydration, elimination, meds effectiveness and management; reinforce education re health issues PT ORDERS: Continue rehab for endurance, gait stability and strength with mobility and transfers. Home safety evaluation. Home exercise program if appropriate. OT: assess and continue rehab for managing ADL's. HOME HEALTH CARE AGENCY: [facility]. PHONE: [phone] FAX: [phone] Start of care: 05/19/16 FOR MEDICARE ONLY: (please delete this section if not Medicare) In discussion with the attending physician, it is certified that the clinical findings support thatthis patient is homebound because absences from home require considerable and taxing effort due to:deconditioned due to surgery Please note that any additional orders needs or changes will need to be obtained from this patient's PCP: MD Jaleel Dooley [address] / [facility] [id number] All [facility] agencies which cover the area of patient's residence have been reviewed, either verbally constantine writing, and patient/family have chosen the home health care agency noted Question Response Notes Agency name and contact information [facility] Patient location post discharge home What services are requested Registered Nurse What services are requested Physical Therapy Start date 05/19/2016 Responsible MD post discharge contact info PCP & Dr Perez Instructions Given to Patient at Discharge: An After Visit Summary was printed and given to the patient. Patient Instructions Discharge Instructions CALL YOUR PHYSICIAN IF: ??? You have a fever greater than 101 degrees F, or you have shaking chills ? ? You have diarrhea or vomiting for >24 hours ??? You have had no bowel movements or have difficulty passing flatus ??? You have worsening pain, not controlled with your pain medication. ??? You develop redness, swelling, or new drainage from your wound. PHONE NUMBERS ?? [phone] during normal business hours - identify yourself and your surgeon. ?? [phone] outside normal business hours - Ask for General Surgery resident furniture rental consultant. ?? [phone] on weekends/holidays - Ask for General Surgery resident furniture rental consultant. Follow up: You will have a surgical followup appointment with SONJA Luz in 4 weeks at the [facility] Outpatient [facility] ([address], [facility]). The appointment details scheduled will be mailed to you. If you do not hear from [facility] within 5 daysof your discharge, Please call [phone] to confirm your appointment. Future Appointments Date Time Provider Department Center 06/02/2016 11:00 AM Darryl Burgos MD [facility] 06/09/2016 3:00 PM Sonja Perez [facility] 06/12/2016 10:00 AM Hazel Oshea LD [facility] Diet: Please stick to your post-Asia full liquid diet. Wound Care: You may shower as per usual and let water run over your incision. You may remove the band-aids. Do not scrub the wound vigorously. You may wash the incision area gently with soap that does not contain chemical fragrance or dyes. Pat the incision area dry with a clean, dry towel. You should keep the wound open to air if there is no drainage. Leave steri strips in place until they fall off, usually in 7-14 days. If they do not fall off by then, please remove manually. Do not soak your wound or submerge under water (no baths, pools or hot tubs) until the incision hashealed, as this may lead to infection. Do not use creams, lotions or ointments on the wound, as this can interfere with proper wound healing. See follow-up appointments below for removal of sutures/mariano. Activity: Take it easy for two weeks. Remember, If it hurts, don't do it. Restrain from heavy lifting (>15 lbs) for at least 4 weeks. You may lift what is comfortable to lift with one arm. Walking is always beneficial after abdominal surgery. You should be walking every day after surgery. Take several slow, short walks each day for the first two weeks, and gradually increase your distance. We recommend walking at least 4 times daily. Discuss return to work or school with your surgeon at your followup visit. Driving Restrictions: No driving a vehicle or operating heavy machinery if you are too sore from surgery to enter or exit your vehicle comfortably, or if you are too sore to easily check your blind spot. No driving a vehicle or operating heavy machinery while using prescription pain medications which can cloud your judgment and slow your response time. Constipation Surgery and anesthesia can cause constipation. Narcotic pain medications also contribute to constipation. Notify your doctor if you have not had a bowel movement for 5days after surgery. Natural constipation remedies include increasing dietary fiber as well as prune and prune juice consumption. Stool softeners, such as Colace or mild laxatives, such as Milk of Magnesia, Sennakot, or Ducolax tabs can also help with your constipation. Pain Management: Some incisional soreness can be expected. Take your pain medication only as needed and as prescribed. Taper the use of pain medication as pain lessens. You may take Tylenol and/or Ibuprofen for pain, and you may also use these over the counter medication to adjunct your prescription pain medications. However, you must be aware of the following important precautions. If you are taking Tylenol, you should not take more than 4000mg of acetaminophen (Tylenol) in 24 hours. If you have been given a prescription containing acetaminophen, please be aware that this is the active drug in Tylenol. You cannot take more than 4000mg of acetaminophen in 24 hours. If you have been given a prescription for Toradol, be aware that this is an NSAID, the same class of drugs as ibuprofen. These medications are cumulative, and can erode the stomach lining when taken in excess. Do not take NSAIDs on an empty stomach. If you have been given a prescription for narcotic pain medication, please use this medication as prescribed. While taking narcotic pain medications, you should not drive as these medications may slow your reaction time. *It is important to heed the following when taking narcotic pain medication: Using narcotic pain medications (such as Percocet, Vicodin, Oxycodone or Dilaudid) may cause addiction. Addiction can occur in anyone. Read all instructions that come with your medication. Take your medication exactly as prescribed. Taking more than the prescribed amount or combining narcotics with alcohol or other drugs can causeyou to stop breathing resulting in coma, brain damage, or . Narcotic pain medication can slow reaction time, cause drowsiness, or cloud judgment. Do not drive or operative heavy machinery while taking narcotic pain medication. Narcotic pain medications are at risk of being diverted by anyone with access to your home. Narcotics should be stored in a secure manner, such as a locked cabinet. Unused opioids should be disposed of according to the label or patient information. CALL YOUR PHYSICIAN IF: ??? You have a fever greater than 101 degrees F, or you have shaking chills ? ? You have diarrhea or vomiting for >24 hours ??? You have had no bowel movements or have difficulty passing flatus ??? You have worsening pain, not controlled with your pain medication. ??? You develop redness, swelling, or new drainage from your wound. PHONE NUMBERS [phone] during normal business hours - identify yourself and your surgeon. [phone] outside normal business hours - Ask for General Surgery resident furniture rental consultant. [phone] on weekends and all holidays - Ask for General Surgery resident furniture rental consultant. Your surgeon may not be Direct Service Professional, especially during the night or on weekends, so be ready to describe yourself and your surgery when you call. CC: Nayla Miramontes MD General Instructions 1) CONTINUE TAKING NEXIUM with intention to taper to OFF. ?? Take Nexium 40mg by mouth once a day (open capsule onto slippery food like apple sauce, or mix with warm water) for 1 week ?? Take Nexium 40mg by mouth every other day for 1 week ?? Stop taking Nexium altogether by 2 weeks after discharge from hospital. 2) CONTINUE TAKING ERYTHROMYCIN SOLUTION. ?? Take 200mg (1 packet - dissolve in water or pour over a slippery food like apple sauce) before every meal. ?? Continue this every day until you see your SURGEON in follow up ~ approximately two weeks from Discharge Insulin pump to be managed by patient. Please make an appointment to see your PCP within the next week to check in on your glucose management. Signed: KRISTINA WOOD MD 05/16/2016 documented in this encounter Discharge Instructions * Discharge Instructions* Kristina Wood MD - 05/16/2016 10:42 AM EST 1) CONTINUE TAKING NEXIUM with intention to taper to OFF. ?? Take Nexium 40mg by mouth once a day (open capsule onto slippery food like apple sauce, or mix with warm water) for 1 week ?? Take Nexium 40mg by mouth every other day for 1 week ?? Stop taking Nexium altogether by 2 weeks after discharge from hospital. 2) CONTINUE TAKING ERYTHROMYCIN SOLUTION. ?? Take 200mg (1 packet - dissolve in water or pour over a slippery food like apple sauce) before every meal. ?? Continue this every day until you see your SURGEON in follow up ~ approximately two weeks from Discharge Insulin pump to be managed by patient. Please make an appointment to see your PCP within the next week to check in on your glucose management. * Patient Instructions* Kristina Wood MD - 05/15/2016 6:05 AM EST Discharge Instructions CALL YOUR PHYSICIAN IF: ??? You have a fever greater than 101 degrees F, or you have shaking chills ? ? You have diarrhea or vomiting for >24 hours ??? You have had no bowel movements or have difficulty passing flatus ??? You have worsening pain, not controlled with your pain medication. ??? You develop redness, swelling, or new drainage from your wound. PHONE NUMBERS ?? [phone] during normal business hours - identify yourself and your surgeon. ?? [phone] outside normal business hours - Ask for General Surgery resident furniture rental consultant. ?? [phone] on weekends/holidays - Ask for General Surgery resident furniture rental consultant. Follow up: You will have a surgical followup appointment with SONJA Luz in 4 weeks at the [facility] ([address], [facility]). The appointment details scheduled will be mailed to you. If you do not hear from [facility] within 5 daysof your discharge, Please call [phone] to confirm your appointment. Future Appointments Date Time Provider Department Center 06/02/2016 11:00 AM Darryl Burgos MD [facility] 06/09/2016 3:00 PM Sonja Perez MD [facility] Surg [facility] 06/12/2016 10:00 AM Hazel Oshea LD [facility] Endo [facility] Diet: Please stick to your post-Asia full liquid diet. Wound Care: You may shower as per usual and let water run over your incision. You may remove the band-aids. Do not scrub the wound vigorously. You may wash the incision area gently with soap that does not contain chemical fragrance or dyes. Pat the incision area dry with a clean, dry towel. You should keep the wound open to air if there is no drainage. Leave steri strips in place until they fall off, usually in 7-14 days. If they do not fall off by then, please remove manually. Do not soak your wound or submerge under water (no baths, pools or hot tubs) until the incision hashealed, as this may lead to infection. Do not use creams, lotions or ointments on the wound, as this can interfere with proper wound healing. See follow-up appointments below for removal of sutures/mariano. Activity: Take it easy for two weeks. Remember, If it hurts, don't do it. Restrain from heavy lifting (>15 lbs) for at least 4 weeks. You may lift what is comfortable to lift with one arm. Walking is always beneficial after abdominal surgery. You should be walking every day after surgery. Take several slow, short walks each day for the first two weeks, and gradually increase your distance. We recommend walking at least 4 times daily. Discuss return to work or school with your surgeon at your followup visit. Driving Restrictions: No driving a vehicle or operating heavy machinery if you are too sore from surgery to enter or exit your vehicle comfortably, or if you are too sore to easily check your blind spot. No driving a vehicle or operating heavy machinery while using prescription pain medications which can cloud your judgment and slow your response time. Constipation Surgery and anesthesia can cause constipation. Narcotic pain medications also contribute to constipation. Notify your doctor if you have not had a bowel movement for 5days after surgery. Natural constipation remedies include increasing dietary fiber as well as prune and prune juice consumption. Stool softeners, such as Colace or mild laxatives, such as Milk of Magnesia, Sennakot, or Ducolax tabs can also help with your constipation. Pain Management: Some incisional soreness can be expected. Take your pain medication only as needed and as prescribed. Taper the use of pain medication as pain lessens. You may take Tylenol and/or Ibuprofen for pain, and you may also use these over the counter medication to adjunct your prescription pain medications. However, you must be aware of the following important precautions. If you are taking Tylenol, you should not take more than 4000mg of acetaminophen (Tylenol) in 24 hours. If you have been given a prescription containing acetaminophen, please be aware that this is the active drug in Tylenol. You cannot take more than 4000mg of acetaminophen in 24 hours. If you have been given a prescription for Toradol, be aware that this is an NSAID, the same class of drugs as ibuprofen. These medications are cumulative, and can erode the stomach lining when taken in excess. Do not take NSAIDs on an empty stomach. If you have been given a prescription for narcotic pain medication, please use this medication as prescribed. While taking narcotic pain medications, you should not drive as these medications may slow your reaction time. *It is important to heed the following when taking narcotic pain medication: Using narcotic pain medications (such as Percocet, Vicodin, Oxycodone or Dilaudid) may cause addiction. Addiction can occur in anyone. Read all instructions that come with your medication. Take your medication exactly as prescribed. Taking more than the prescribed amount or combining narcotics with alcohol or other drugs can causeyou to stop breathing resulting in coma, brain damage, or . Narcotic pain medication can slow reaction time, cause drowsiness, or cloud judgment. Do not drive or operative heavy machinery while taking narcotic pain medication. Narcotic pain medications are at risk of being diverted by anyone with access to your home. Narcotics should be stored in a secure manner, such as a locked cabinet. Unused opioids should be disposed of according to the label or patient information. CALL YOUR PHYSICIAN IF: ??? You have a fever greater than 101 degrees F, or you have shaking chills ? ? You have diarrhea or vomiting for >24 hours ??? You have had no bowel movements or have difficulty passing flatus ??? You have worsening pain, not controlled with your pain medication. ??? You develop redness, swelling, or new drainage from your wound. PHONE NUMBERS [phone] during normal business hours - identify yourself and your surgeon. [phone] outside normal business hours - Ask for General Surgery resident furniture rental consultant. [phone] on weekends and all holidays - Ask for General Surgery resident furniture rental consultant. Your surgeon may not be Direct Service Professional, especially during the night or on weekends, so be ready to describe yourself and your surgery when you call. CC: Nayla Miramontes MD documented in this encounter Medications at Time of Discharge Medication Sig Dispensed Refills Start Date End Date trimethobenzamide (TIGAN) 300 mg Capsule Take by mouth 4 times daily as needed. 08/08/2015 atorvastatin (LIPITOR) 40 mg Tablet Take 40 mg by mouth daily. 04/28/2016 celecoxib (CELEBREX) 100 mg Capsule Take 100 mg by mouth 2 times daily. 04/28/2016 Diabetic Supplies, Miscellan. [facility] Inject 1 each subcutaneously 4 times daily. Faxed pump and supply order to [employer] at [phone]. Dx Code: 250.01 100 each 12/21/2015 Diabetic Supplies, Miscellan. [facility] faxed to [facility] 100 each 12 10/30/2015 bisacodyl (DULCOLAX) 10 mg SuppositoryIndicatio ns:Other constipation Place 1 suppository rectally daily. 60 suppository 3 03/20/2015 lisinopril (PRINIVIL;ZESTRIL) 20 mg Tablet Take 1 tablet by mouth daily. 30 tablet 12/08/2013 MULTI-VITAMIN ORAL Take 1 tablet by mouth daily. Reported on 05/26/2016 esomeprazole (NEXIUM) 40 mg Capsule, Delayed Release(E.C.) Take 1 capsule by mouth daily for 7 days. 7 capsule 05/16/2016 7 oxyCODONE (ROXICODONE) 5 mg/5 mL Solution Take 5-10 mLs by mouth every 4 hours as needed for Pain. 200 mL 05/16/2016 7 erythromycin (EES) 200 mg/5 mL Suspension for Reconstitution Take 5 mLs by mouth 3 times daily (with meals). 500 mL 05/16/2016 7 gabapentin (NEURONTIN) 300 mg Capsule Take 1 capsule by mouth 3 times daily. 90 capsule 11 03/04/2016 7 Adalimumab (HUMIRA PEN) 40 mg/0.8 mL Pen Injector Kit Inject 0.8 mLs subcutaneously every 14 days. 4 kit 1 02/26/2016 7 nefazodone (SERZONE) 100 mg Tablet Take 1 tablet by mouth 2 times daily. 30 tablet 02/14/2016 4 Diabetic Supplies, Miscellan. Misc [facility]GM faxed to [employer]. 600 each 3 12/21/2015 7 levothyroxine (SYNTHROID) 175 mcg Tablet Take 150 mcg by mouth daily. 9 polyethylene glycol (MIRALAX) 17 gram/dose Powder Take 34 g by mouth 2 times daily. 255 g 3 07/24/2015 9 bethanechol (URECHOLINE) 10 mg Tablet Take 1 tablet by mouth 3 times daily. 90 tablet 3 07/12/2015 7 ondansetron (ZOFRAN-ODT) 8 mg Tablet, Rapid DissolveIndications: N&V (nausea and vomiting) Take 1 tablet by mouth every 8 hours as needed for Nausea. 20 tablet 11 11/15/2014 4 insulin lispro (HUMALOG) injection Inject 65 Units subcutaneously continuous. Via insulin pump 8 insulin glargine (LANTUS) 100 unit/mL vial injectionIndications :type 1 diabetes mellitus Inject 18 Units subcutaneously daily. 1 vial = 10ml = 1,000 units Indications: Type 1 Diabetes Mellitus 10 mL 5 04/29/2011 7 melatonin 3 mg Tab Take 9 mg by mouth nightly. 7 documented as of this encounter Progress Notes * Kaya Alexander RN - 05/16/2016 1:28 PM EST Office of Care Management (OCM) / Wind Power Project Manager(CM) Plan for patient to go home today with VNA with PT. CM will have human resources officer send referral to [facility]. PHONE: [phone] FAX: [phone] for VNA & PT services. Kaya Alexander RN Case Manager Pager [phone] * Ignacio Marquis PT - 05/16/2016 12:32 PM EST Physical Therapy Note Patient profile: 60 y.o. female with HTN, HLD, hypothyroidism, and type I DM who is s/p lap toupet paraesophageal hernia repair on y.o. female with HTN, HLD, hypothyroidism, and type I DM who iss/p lap toupet paraesophageal hernia repair on 05/08 Interval History: pt going home today. All dressed. Precautions/Special Considerations: none Subjective: I'll do the stairs. Yes, I feel weak but I think I just need to move more. My will be with me when I am on the stairs. Objective: Treatment today included stairs as described below. Pt was able to walk with walker independently. Ind with all transfers. She is slow, but safe on level. Up and down 6 steps with rail and close cg. Her will be with her on the stairs until sheis stronger. Recommend VNA PT at home to progress strength. All inpt PT goals met. Patient status, treatment, and mobility recommendations discussed with nursing. Discharge Recommendations: Home with and VNA PT. Total time spent with patient: 15 minutes fm Total timed interventions: 15 minutes IGNACIO MARQUIS PT Pager: [phone] Physical Therapy Rehabilitation Department * Danyelle James RN - 05/16/2016 11:02 AM EST Pt d/c to home per md order. Patient AOx4 hrr, lung sounds clear, no n/v sob or chest pain at time of discharge. +bs, 05/16/16, voiding clear yellow urine. Patient ambulating independently with walkerat this time. Pain well controlled with oxycodone. All LDA's removed. All belongings home with patient. Prescriptions given to patient, all discharge instructions reviewed with patient. All questionsanswered. Please see flowsheet for full assessment. Danyelle James RN * Kristina Wood MD - 05/16/2016 10:25 AM EST INPATIENT DAILY PROGRESS NOTE Patient Name: Roxann Baxter Patient Age: 60 y.o. Birthdate: 1955 Admit date: 05/08/2016 Attending Physician: Sonja Perez MD ID: Roxann Baxter is a 60 y.o. female with HTN, HLD, hypothyroidism, and type I DM who is 8 Days Post-Op s/p lap toupet paraesophageal hernia repair Recent events/symptoms: - Pt managing insulin pump well - No reported nausea in past 24hours O: Last value Range last 24hrs Temperature Temp: 37.4 ??C (99.3 ??F) Temp: [36.9 ??C (98.4 ??F)-37.4 ??C (99.3 ??F)] Heart Rate Heart Rate: 65 Heart Rate: -- Blood Pressure BP: (!) 124/95 (RN notified) BP: (113-139)/(45-95) Respiratory Rate Resp: 16 Resp: [16-18] SpO2 SpO2: 94 % SpO2: [93 %-97 %] Body mass index is 31.12 kg/(m^2). BMI diagnosis: obese 05/15 0701 - 05/16 0700 In: 2420 [P.O.:2420] Out: 1300 [Urine:1300] Post-[place] Full Liquid diet Full Liquid; 60/60/75 CHO counting level 2 Intake/Output Summary (Last 24 hours) at 05/16/16 1025 Last data filed at 05/16/16 0934 Gross per 24 hour Intake 1940 ml Output 850 ml Net 1090 ml Physical Exam: General: NAD, A&Ox3, resting in bed HEENT: NC/AT CVS: RRR, no m/r/g Pulm: CTAB, no wheezes or rhonchi, breathing comfortably on RA Abd: soft, appropriately tender, port sites c/d/i with steri-strips and bandaids, obese, non-distended Ext: warm and well perfused Neuro: Grossly intact, nonfocal, moving all four extremities spontaneously. Recent Labs 05/15/1651905/14/16 0530 WBC 4.6 5.3 HGB 8.9* 9.2* HCT 29.0* 29.6* PLATELET 354 344 Recent Labs 05/15/1651905/14/16 0530 NA 142 142 K 4.2 4.5 CL 102 101 CO2 32* 32* BUN 9 8 CREATININE 0.79 0.73 GLUCOSE 82 112 CALCIUM 8.6 8.6 MAGNESIUM 0.87 0.89 PHOS 3.5 3.3 New Studies: None Consults: Endo: PLAN: BG checks every 4 hours on [facility] POC monitor. ? Patient managed insulin pump Medications: Mini med insulin pump Total daily basal: 19.375 units 0000 0.700 units/hour 0400 0.750 units/hour 0930 0.825 units/hour 1530 0.850 units/hour 1900 0.850 units/hour ? I:C of 1u:12grams of cars CF: 25 PT/OT: Ok for home w/ assist ASSESSMENT: Roxann Baxter is a 60 y.o. female 8 Days Post-Op s/p lap toupet paraesophageal hernia repair with slow progression post-operatively, however has significantly improved once restarted homepsych medication and started erythromycin. Pt is meeting criteria for discharge to home. PLAN BY SYSTEM - Will plan for discharge early this afternoon: - ALL meds crushed or liquid - Insulin pump to be managed by patient - will need close follow up with PCP Code status: Full KRISTINA WOOD MD 05/16/2016 General Surgery p.[phone] * Gonsalo Yanez RN - 05/16/2016 12:10 AM EST Pt did not administer coverage for BG at 1933 for 182 Pt did not administer coverage for BG At 0000 for 140 * Sidra Luzmaria L, STEEL RIGGER - 05/15/2016 10:15 AM EST Follow Up Diabetes Consult Patient Interview Roxann's BG levels were on the low side overnight. She reports she is feeling better She has had no difficulty with her pump. Objective Temp: [36.7 ??C (98.1 ??F)-37.2 ??C (99 ??F)] Heart Rate: -- Resp: [18] BP: (104-141)/(64-66) SpO2: [90 %-98 %] Heart Rate from SPO2: [69 bpm-73 bpm] Current Regimen BG checks every 4 hours on [facility] POC monitor. ?? Patient managed insulin pump Medications: Mini med insulin pump Total daily basal: 19.375 units 0000 0.700 units/hour 0400 0.750 units/hour 0930 0.825 units/hour 1530 0.850 units/hour 1900 0.850 units/hour ? I:C of 1u:12grams of cars CF: 25 Recent Glucose Levels Recent Labs 05/15/16 0815 05/15/16 0731 05/15/16 0331 05/15/16 0028 05/15/16 0000 05/14/16 2337 05/14/16 1902 05/14/16 1555 05/14/16 1349 05/14/16 1129 05/14/16 0715 05/14/16 0342 POCGLU 88 63* 86 79 65 68 95 166 294* 256* 80 171 ASSESSMENT Patient is a 60 y.o. female with PMH significant for DM-1 (Last A1C of 9.4%) who was admitted on 05/08/2016 for POD 2 s/p laparoscopic Toupet fundoplication and paraesophageal hernia repair. Diabetes suboptimally controlled and complicated by recent surgery and current hospitalization. Currently withvariability of blood glucose levels while hospitalized requiring adjustment of insulin regimen and DM medications. Her low BG levels indicates her basal setting are too high covering more than her basal requirements. I have decreased her midnight, 4 am and 7 PM settings. PLAN BG checks every 4 hours on [facility] POC monitor. ?? Patient managed insulin pump Medications: Mini med insulin pump 0000 0.65 units/hour 0400 0.70 units/hour 0930 0.825 units/hour 1530 0.850 units/hour 1900 0.75 units/hour ? I:C of 1u:12grams of cars CF: 25 Luzmaria Valente APRN [facility] Endocrinology Diabetes Management Pager [phone] 20 minutes of this 35 minute visit was spent with the patient in counseling on diabetes and treatment plan, reviewing all glucose and insulin data as well as relevant laboratory results with the patient, and coordination of care on the inpatient unit including nursing and primary team. * Kristina Wood MD - 05/15/2016 7:36 AM EST INPATIENT DAILY PROGRESS NOTE Patient Name: Roxann Baxter Patient Age: 60 y.o. Birthdate: 1955 Admit date: 05/08/2016 Attending Physician: Sonja Perez MD ID: Roxann Baxter is a 60 y.o. female with HTN, HLD, hypothyroidism, and type I DM who is 7 Days Post-Op s/p lap toupet paraesophageal hernia repair Recent events/symptoms: - Restarted on insulin pump - did well managing independently - Restarted on home nefazodone with improvement in affect and nausea - Improvement in nausea w/ erythromycin O: Last value Range last 24hrs Temperature Temp: 36.7 ??C (98.1 ??F) Temp: [36.7 ??C (98.1 ??F)-37.2 ??C (99 ??F)] Heart Rate Heart Rate: 65 Heart Rate: -- Blood Pressure BP: 141/66 BP: (104-146)/(64-80) Respiratory Rate Resp: 18 Resp: [18] SpO2 SpO2: 98 % SpO2: [90 %-98 %] Body mass index is 31.12 kg/(m^2). BMI diagnosis: obese 05/14 0701 - 05/15 07 In: 1140 [P.O.:1140] Out: 1125 [Urine:1125] Post-[place] Full Liquid diet Full Liquid; 60/60/75 CHO counting level 2 Intake/Output Summary (Last 24 hours) at 05/15/16 0736 Last data filed at 05/15/16 0004 Gross per 24 hour Intake 1140 ml Output 1125 ml Net 15 ml Physical Exam: General: NAD, A&Ox3, resting in bed HEENT: NC/AT CVS: RRR, no m/r/g Pulm: CTAB, no wheezes or rhonchi, breathing comfortably on RA Abd: soft, appropriately tender, port sites c/d/i with steri-strips, obese, non-distended Ext: warm and well perfused Neuro: Grossly intact, nonfocal, moving all four extremities spontaneously. Recent Labs 05/15/16 0520 05/14/16 0530 05/13/16 0522 WBC 4.6 5.3 4.7 HGB 8.9* 9.2* 9.1* HCT 29.0* 29.6* 29.9* PLATELET 354 344 308 Recent Labs 05/15/16 0520 05/14/16 0530 05/13/16 0522 NA 142 142 143 K 4.2 4.5 4.2 CL 102 101 103 CO2 32* 32* 33* BUN 9 8 6* CREATININE 0.79 0.73 0.63* GLUCOSE 82 112 69 CALCIUM 8.6 8.6 8.7 MAGNESIUM 0.87 0.89 0.76 PHOS 3.5 3.3 3.8 New Studies: None Consults: Endo: PLAN: Pt to start using insulin pump independently 1. Lantus 12 units - keep afternoon dosing to help with transition back to pump 2. Novolog custom sliding scale for BG>140 with CF 30 3. Meal-associated Novolog 0-7 units tid ac (or 1unit: 12 gm carb ratio for each meal PT/OT: pending - will need input for dispo planning ASSESSMENT: Roxann Baxter is a 60 y.o. female 7 Days Post-Op s/p lap toupet paraesophageal hernia repair with slow progression post-operatively, however with significant improvements in past 24hours since restarting home nefazodone and starting erythromycin. Pt is now starting to meet criteria for discharge and so we will order PT/OT eval as she is deconditioned. PLAN BY SYSTEM N: Gabapentin 300mg TID, Toradol 15mg Q6, melatonin PRN, ativan PRN, zofran PRN, compazine/phenergan PRN, oxycodone PRN, home nefazodone. CV: Labetalol PRN, lisinopril 20mg QD Pulm: IS GI: Post-[place] Full liquid diet w/ CCII, erythromycin for motility /FE: MARVIN, will discontinue labs as they have been stable, adding magnesium supplementation ID: Nystatin s/s Heme: SQH, SCDs Endo: synthroid 175mcg Qam, type I DM - managed by DM team - pt is now managing pump independently DISPO: Floor, will need inpatient services for at least 24hours anticipate discharge earliest tomorrow Code status: Full KRISTINA WOOD MD 05/15/2016 General Surgery p.[phone] ER * Roxann Bustos RN - 05/14/2016 6:50 PM EST Diabetes Clinical Nurse Specialist Mrs. Baxter reports ~ 45 year Hx type 1 diabetes, treated with an insulin pump for the last ~ 20 years. She resumed the use of her pump this afternoon and her glucose initially climbed to the high-200's but now is back to the mid-100's. She voices an excellent understanding of her diabetes and her other health conditions that have an effect on her glycemic control. She was most generous in sharing her story and answering questions of my PA student. ER * Kristina Wood MD - 05/14/2016 12:38 PM EST INPATIENT DAILY PROGRESS NOTE Patient Name: Roxann Baxter Patient Age: 60 y.o. Birthdate: 1955 Admit date: 05/08/2016 Attending Physician: Sonja Perez MD ID: Roxann Baxter is a 60 y.o. female with HTN, HLD, hypothyroidism, and type I DM who is 6 Days Post-Op s/p lap toupet paraesophageal hernia repair Recent events/symptoms: - Hyperglycemic o/n - Swallow study - dysmotility, no leak O: Last value Range last 24hrs Temperature Temp: (Q8 hour vitals) Temp: [37 ??C (98.6 ??F)-37.2 ??C (99 ??F)] Heart Rate Heart Rate: 65 Heart Rate: -- Blood Pressure BP: 146/80 BP: (110-146)/(64-80) Respiratory Rate Resp: 18 Resp: [16-18] SpO2 SpO2: 100 % SpO2: [94 %-100 %] Body mass index is 31.12 kg/(m^2). BMI diagnosis: obese 05/13 700 - 05/14 07 In: 240 [P.O.:240] Out: 1500 [Urine:1500] [place] Full Liquid diet Full Liquid; 60/60/75 CHO counting level 2 Intake/Output Summary (Last 24 hours) at 05/14/16 1238 Last data filed at 05/14/16 1200 Gross per 24 hour Intake 480 ml Output 1500 ml Net -1020 ml Physical Exam: General: NAD, A&Ox3, resting in bed HEENT: NC/AT CVS: RRR, no m/r/g Pulm: CTAB, no wheezes or rhonchi, breathing comfortably on RA Abd: soft, appropriately tender, port sites c/d/i with steri-strips, obese, non-distended Ext: warm and well perfused Neuro: Grossly intact, nonfocal, moving all four extremities spontaneously. Recent Labs 05/14/16 0530 05/13/16 0522 05/12/16 0508 WBC 5.3 4.7 4.6 HGB 9.2* 9.1* 9.3* HCT 29.6* 29.9* 31.0* PLATELET 344 308 284 Recent Labs 05/14/16 0530 05/13/16 0522 05/12/16 0508 NA 142 143 143 K 4.5 4.2 4.0 CL 101 103 102 CO2 32* 33* 32* BUN 8 6* 7* CREATININE 0.73 0.63* 0.65* GLUCOSE 112 69 64* CALCIUM 8.6 8.7 8.6 MAGNESIUM 0.89 0.76 0.87 PHOS 3.3 3.8 4.4 New Studies: Barium swallow: 1. No evidence of leak. 2. Marked esophageal dysmotility. Consults: Endo: PLAN: Pt to start using insulin pump independently 1. Lantus 12 units - keep afternoon dosing to help with transition back to pump 2. Novolog custom sliding scale for BG>140 with CF 30 3. Meal-associated Novolog 0-7 units tid ac (or 1unit: 12 gm carb ratio for each meal ASSESSMENT: Roxann Baxter is a 60 y.o. female 6 Days Post-Op s/p lap toupet paraesophageal hernia repair with slow progression post-operatively. Pt has continued nausea but this seems to be improvingwith erythromicin. Also, we will restart home psych medication - nefazodone. PLAN BY SYSTEM N: Gabapentin 300mg TID, Toradol 15mg Q6, melatonin PRN, ativan PRN, zofran PRN, oxycodone PRN, restart nefazodone. CV: Labetalol PRN, lisinopril 20mg QD Pulm: IS GI: [place] Full liquid diet w/ CCII, erythromicin for motility /FE: MARVIN ID: Nystatin s/s Heme: SQH, SCDs Endo: synthroid 175mcg Qam, type I DM - managed by DM team DISPO: Floor, will need inpatient services for at least 24hours Code status: Full KRISTINA WOOD MD 05/14/2016 General Surgery p.[phone] * Luzmaria Valente, STEEL RIGGER - 05/14/2016 11:42 AM EST Follow Up Diabetes Consult Patient Interview Roxann ate breakfast around 10 am, tolerated well. Objective Temp: [37 ??C (98.6 ??F)-37.2 ??C (99 ??F)] Heart Rate: -- Resp: [16-18] BP: (110-146)/(64-80) SpO2: [94 %-100 %] Heart Rate from SPO2: [71 bpm-85 bpm] Current Regimen 1. Lantus 12 units - keep afternoon dosing to help with transition back to pump 2. Novolog custom sliding scale for BG>140 with CF 30 3. Meal-associated Novolog 0-7 units tid ac (or 1unit: 12 gm carb ratio for each meal ?? Recent Glucose Levels Recent Labs 05/14/16 1129 05/14/16 0715 05/14/16 0342 05/14/16 0209 05/14/16 0011 05/13/16 1903 05/13/16 1601 05/13/16 1116 05/13/16 0717 05/13/16 0408 05/13/16 0112 05/12/16 2352 POCGLU 256* 80 171 195 303* 204* 174 143 88 71 83 79 ASSESSMENT Patient is a 60 y.o. female with PMH significant for DM-1 (Last A1C of 9.4%) who was admitted on 05/08/2016 for POD 2 s/p laparoscopic Toupet fundoplication and paraesophageal hernia repair. Diabetes suboptimally controlled and complicated by recent surgery and current hospitalization. Currently withvariability of blood glucose levels while hospitalized requiring adjustment of insulin regimen and DM medications. Roxann is ready to use her own insulin pump. Last dose of lantus was 2/7 at 12 noon at 11 AM we resumed her pump. The only change made was to decrease her basal rate to 0.750 from 0.800 from 4 am to 9:30 am since she had been waking in the 50s around 7 am when she was using her pump. PLAN BG checks every 4 hours on [facility] POC monitor. Patient managed insulin pump Medications: Mini med insulin pump Total daily basal: 19.375 units 0000 0.700 units/hour 0400 0.750 units/hour 0930 0.825 units/hour 1530 0.850 units/hour 1900 0.850 units/hour ?? I:C of 1u:12grams of cars CF: 25 Luzmaria Valente APRN [facility] Endocrinology Diabetes Management Pager [phone] minutes of this 35 minute visit was spent with the patient in counseling on diabetes and treatment plan, reviewing all glucose and insulin data as well as relevant laboratory results with the patient, and coordination of care on the inpatient unit including nursing and primary team. * Tico Pool Barbara - 05/14/2016 10:23 AM EST Nutrition Services - Follow-up Note Roxann Baxter : 1955 AGE: 60 y.o. Patient Active Problem List Diagnosis Date Noted ??? Hospital-Morbid obesity 05/08/2016 ??? MDD (major depressive disorder), recurrent episode, moderate 02/11/2016 ??? Presence of insulin pump 11/08/2015 ??? Pseudophakia of both eyes (OD - 10/17/14, OS - 09/26/14) 11/01/2014 Chronic ??? Urinary incontinence 08/22/2014 ??? Diabetic retinopathy 05/19/2014 ??? Vitreous hemorrhage of right eye 05/19/2014 ??? IDDM (insulin dependent diabetes mellitus) 05/19/2014 ??? Dysphagia 07/25/2013 ??? Constipation 07/25/2013 ??? PDR (proliferative diabetic retinopathy) 07/25/2013 ??? Scoliosis 08/13/2012 ??? Chronic low back pain 08/13/2012 ??? Seborrheic keratosis 05/03/2012 Chronic ??? Solar lentigo 05/03/2012 ??? Xerosis cutis 05/03/2012 ??? Pruritus 05/03/2012 ??? Nuclear sclerosis 04/13/2012 ??? Proliferative diabetic retinopathy of both eyes.-mild resolving bilateral vitreous hemorrhages.No traction. Good PRP. 04/13/2012 Chronic ??? Psoriatic arthritis.currently on Hydroxychloroquine. No signs of hydroxychloroquine retinopathy. Recommend close followup. 04/13/2012 Chronic ??? PDR (proliferative diabetic retinopathy) 05/25/2011 ??? [...] 1 diabetes mellitus 03/08/2011 ??? Diabetes mellitus Reason for Nutrition Intervention: Follow-up Diet Order: Full liquid, [place], CHO2 Appetite: Fair Food allergies: NKFA Chewing/Swallowing difficulty: none Ht Readings from Last 3 Encounters: 05/08/16 167.6 cm (5' 6) 03/04/16 167.6 cm (5' 5.98) 02/11/16 167.6 cm (5' 5.98) Wt Readings from Last 3 Encounters: 05/08/16 87.5 kg (192 lb 12.8 oz) 03/11/16 93.4 kg (206 lb) 03/04/16 92.8 kg (204 lb 9.6 oz) Body mass index is 31.12 kg/(m^2). Assessment: Patient denies further need for nutrition education. She reported a fair appetite without difficulty chewing or swallowing. Pt stated that she had woken up late this morning, reordered pt's breakfast. She is tolerating current diet without nausea or vomiting. Added boost glucose shakes with meals, per requested chocolate flavor. Pt had no further questions at this time. Contact information has been provided. Encouraged pt to contact Food and Nutrition services with any questions that may arise. Nutrition Plan: Continue current diet. Recommend Daily Multi Vitamins. Boost Glucose Control 3x/day. Encourage good po intake. Monitor weight. Support and encouragement provided. Nutrition services to follow weekly thru hospital course unless consulted in the interim. ANETA Viramontes * Minerva Plascencia MD - 05/13/2016 5:07 PM EST MIS SERVICE - DAILY PROGRESS NOTE DOA: 05/08/2016 : 1955 LOS: 5 BED: [id number] ATTG: Sonja Perez MD SUBJECTIVE Roxann Baxter is a 60 y.o. female who is 5 Days Post-Op from laparoscopic Toupet fundoplication andparaesophageal hernia repair 24 Hour Interval Events / Pt Complaints ?? Severe episode of PONV yesterday afternoon ?? Hypoglycemic in AM - basal rate decreased again per DM consult Active Hospital Problems ?? IDDM, type I ?? Postop as above Relevant PMH / PSH ?? DM I, IDDM ?? Hypothyroidism ?? HTN, HLD, asthma, anxiety OBJECTIVE VITALS Vitals: 05/12/16 2307 05/13/16 0410 05/13/16 0801 05/13/16 1104 BP: 147/61 150/66 148/68 176/82 BP Location (NBP): Left arm Left arm Pulse: Resp: 18 18 17 Temp: 37.2 ??C (99 ??F) 36.9 ??C (98.4 ??F) 36.8 ??C (98.2 ??F) 36.6 ??C (97.9 ??F) TempSrc: Oral Oral Oral Oral SpO2: 95% 100% 98% 98% Weight: Height: 05/12 0701 - 05/13 0700 In: 480 [P.O.:480] Out: 2300 [Urine:2300] EXAM AOx3, NAD S1S2+, RRR CTAB, no WRR Abdomen - Incisions cdi x5 lap Soft, nd, mildly ttp Extremities - no edema bilaterally DIET Post-Asia Full Liquid diet Full Liquid LABS Last 3 wbc, hgb, hct plt Recent Labs 05/13/16 0522 05/12/16 0508 05/11/16 0554 WBC 4.7 4.6 4.4 HGB 9.1* 9.3* 8.5* HCT 29.9* 31.0* 27.6* PLATELET 308 284 255 Last 3 Lytes Recent Labs 05/13/16 0522 05/12/16 0508 05/11/16 0554 NA 143 143 139 K 4.2 4.0 4.2 CL 103 102 99 CO2 33* 32* 32* BUN 6* 7* 11 CREATININE 0.63* 0.65* 0.72 Last 3 LFTs Recent Labs 02/12/16 1606 10/30/15 1039 07/24/15 1117 AST 26 28 18 ALT 26 40* 14 ALKPHOS 60 61 69 BILITOT 0.5 0.5 0.5 BILIDIR 0.1 0.1 0.1 Last Ca, Mg, Phos Recent Labs 05/13/16 0522 CALCIUM 8.7 PHOS 3.8 Last 3 HgbA1C Recent Labs 02/13/16 0702 10/30/15 1039 07/24/15 1117 HA1C 9.4* 10.2* 9.7* STUDIES No results found. MEDS/IVF/DIET ??? insulin glargine 12 Units Subcutaneous Q24H ??? insulin lispro 1-5 Units Subcutaneous Q4H NAYANA ? ? erythromycin 250 mg Oral 4 Times Daily WC & HS ??? pantoprazole 20 mg Intravenous BID ??? insulin lispro 0-7 Units Subcutaneous TID WC ??? ketorolac 15 mg Intravenous Q6H NAYANA ??? nystatin 500,000 Units Oral 4 Times Daily ??? gabapentin 300 mg Oral TID ??? lisinopril 20 mg Oral Daily ??? melatonin 9 mg Oral Nightly ??? levothyroxine 175 mcg Oral Daily ??? sodium chloride 0.9 % 5 mL Intravenous BID ??? heparin (porcine) 5,000 Units Subcutaneous Q8H NAYANA dextrose 50% 12.5-25 g Q1H PRN Or glucagon (human recombinant) 1 mg Q1H PRN labetalol 20 mg Q2H PRN BUpivacaine-EPINEPHrine Once PRN sodium chloride 0.9 % 5-20 mL Q1 Min PRN lidocaine 0.3 mL Once PRN ondansetron 4 mg Q8H PRN Or ondansetron 4 mg Q8H PRN LORazepam 0.5 mg Q4H PRN oxyCODONE 5-10 mg Q4H PRN ASSESSMENT/PLAN Roxann Baxter is a 60 y.o. female who is 5 Days Post-Op s/p Toupet fundoplication and large paraesophageal hernia repair ?? Continued PONV ?? NPO for barium study this AM ?? Continue nystatin for possible candidal esophageal irritation ?? Continue RISS; defer to Endo / Diabetes team recommendations ?? Will start 1) erythromycin 2) protonix for acid rebound phenomenon as well * Toydonita Luzmaria L, [employer]GER - 05/13/2016 12:01 PM EST Images from the original note were not included. Follow Up Diabetes Consult Patient Interview Roxann is still nauseas and having some vomiting. She is NPO for barium swallow today. She would liketo wait until she is feeling better to resume her insulin pump. She had low fasting BG this AM and late last night. Objective Temp: [36.6 ??C (97.9 ??F)-37.2 ??C (99 ??F)] Heart Rate: -- Resp: [16-19] BP: (136-176)/(61-82) SpO2: [95 %-100 %] Heart Rate from SPO2: [69 bpm-75 bpm] Current Regimen 1. Lantus 15 units now - keep afternoon dosing to help with transition back to pump 2. Novolog custom sliding scale for BG>140 with CF 30 3. Meal-associated Novolog 0-7 units tid ac (or 1unit: 12 gm carb ratio for each meal Recent Glucose Levels Recent Labs 05/13/16 1116 05/13/16 0717 05/13/16 0408 05/13/16 0112 05/12/16 2352 05/12/16 2312 05/12/16 1913 05/12/16 1537 05/12/16 1127 05/12/16 0727 05/12/16 0653 05/12/16 0625 POCGLU 143 88 71 83 79 52* 182 221* 226* 125 68 57* ASSESSMENT Patient is a 60 y.o. female with PMH significant for DM-1 (Last A1C of 9.4%) who was admitted on 05/08/2016 for POD 2 s/p laparoscopic Toupet fundoplication and paraesophageal hernia repair. Diabetes suboptimally controlled and complicated by recent surgery and current hospitalization. Currently withvariability of blood glucose levels while hospitalized requiring adjustment of insulin regimen and DM medications. We discussed decreasing her basal insulin. In addition will decrease her sliding scale as her low BG was just 3 hours after correction given. PLAN 1. Lantus 12 units - keep afternoon dosing to help with transition back to pump 2. Novolog custom sliding scale for BG>140 with CF 30 3. Meal-associated Novolog 0-7 units tid ac (or 1unit: 12 gm carb ratio for each meal Luzmaria Valente APRN [facility] Endocrinology Diabetes Management Pager [phone] minutes of this 35 minute visit was spent with the patient in counseling on diabetes and treatment plan, reviewing all glucose and insulin data as well as relevant laboratory results with the patient, and coordination of care on the inpatient unit including nursing and primary team. * Kristina Wood MD - 05/13/2016 8:39 AM EST INPATIENT DAILY PROGRESS NOTE Patient Name: Roxann Baxter Patient Age: 60 y.o. Birthdate: 1955 Admit date: 05/08/2016 Attending Physician: Sonja Perez MD ID: Roxann Baxter is a 60 y.o. female with HTN, HLD, hypothyroidism, and type I DM who is 5 Days Post-Op s/p lap toupet paraesophageal hernia repair Recent events/symptoms: - Hypoglycemic again o/n - Continues to have dysphagia O: Last value Range last 24hrs Temperature Temp: 36.6 ??C (97.9 ??F) Temp: [36.6 ??C (97.9 ??F)-37.2 ??C (99 ??F)] Heart Rate Heart Rate: 65 Heart Rate: -- Blood Pressure BP: 176/82 BP: (137-176)/(61-82) Respiratory Rate Resp: 19 Resp: [17-19] SpO2 SpO2: 98 % SpO2: [95 %-100 %] Body mass index is 31.12 kg/(m^2). BMI diagnosis: obese 05/12 07 - 05/13 07 In: 480 [P.O.:480] Out: 2300 [Urine:2300] Post-Asia Full Liquid diet Full Liquid; 60/60/75 CHO counting level 2 Intake/Output Summary (Last 24 hours) at 05/13/16 1839 Last data filed at 05/13/16 1600 Gross per 24 hour Intake 240 ml Output 2400 ml Net -2160 ml Physical Exam: General: NAD, A&Ox3, resting in bed, appears anxious HEENT: NC/AT CVS: RRR, no m/r/g Pulm: CTAB, no wheezes or rhonchi, breathing comfortably on 2LNC Abd: soft, appropriately tender, port sites c/d/i with bandaids over steri- strips, obese, non-distended Ext: warm and well perfused Neuro: Grossly intact, nonfocal, moving all four extremities spontaneously. Recent Labs 05/13/16 0522 05/12/16 0508 05/11/16 0554 WBC 4.7 4.6 4.4 HGB 9.1* 9.3* 8.5* HCT 29.9* 31.0* 27.6* PLATELET 308 284 255 Recent Labs 05/13/16 0522 05/12/16 0508 05/11/16 0554 NA 143 143 139 K 4.2 4.0 4.2 CL 103 102 99 CO2 33* 32* 32* BUN 6* 7* 11 CREATININE 0.63* 0.65* 0.72 GLUCOSE 69 64* 99 CALCIUM 8.7 8.6 8.3* MAGNESIUM 0.76 0.87 0.74 PHOS 3.8 4.4 3.5 New Studies: Barium swallow: 1. No evidence of leak. 2. Marked esophageal dysmotility. Consults: Endo: PLAN 1. Lantus 12 units - keep afternoon dosing to help with transition back to pump 2. Novolog custom sliding scale for BG>140 with CF 30 3. Meal-associated Novolog 0-7 units tid ac (or 1unit: 12 gm carb ratio for each meal ASSESSMENT: Roxann Baxter is a 60 y.o. female 5 Days Post-Op s/p lap toupet paraesophageal hernia repair with slow progression post-operatively. Pt has continued pain and dysphagia with barium swallow showing dysmotility. PLAN BY SYSTEM N: Gabapentin 300mg TID, Toradol 15mg Q6, melatonin PRN, ativan PRN, zofran PRN, oxycodone PRN CV: Labetalol PRN, lisinorip 20mg QD Pulm: IS GI: Post-Saia Full liquid diet w/ CCII /FE: MARVIN ID: Nystatin s/s Heme: SQH, SCDs Endo: synthroid 175mcg Qam, type I DM - managed by DM team DISPO: Floor, will need inpatient services for at least 24hours Code status: Full KRISTINA WOOD MD 05/13/2016 General Surgery [phone] * Kristina Wood MD - 05/12/2016 5:19 PM EST INPATIENT DAILY PROGRESS NOTE Patient Name: Roxann Baxter Patient Age: 60 y.o. Birthdate: 1955 Admit date: 05/08/2016 Attending Physician: Sonja Perez MD ID: Roxann Baxter is a 60 y.o. female with HTN, HLD, hypothyroidism, and type I DM who is 4 Days Post-Op s/p lap toupet paraesophageal hernia repair Recent events/symptoms: - Hypoglycemic episode this am with concomitant nausea - Decreased PO intake - says she feels things are getting 'stuck' O: Last value Range last 24hrs Temperature Temp: 37.1 ??C (98.8 ??F) Temp: [36.9 ??C (98.4 ??F)-37.2 ??C (99 ??F)] Heart Rate Heart Rate: 65 Heart Rate: [65-71] Blood Pressure BP: 136/63 BP: (136-172)/(63-79) Respiratory Rate Resp: 16 Resp: [16-20] SpO2 SpO2: 95 % SpO2: [95 %-98 %] Body mass index is 31.12 kg/(m^2). BMI diagnosis: obese 05/11 0701 - 05/12 0700 In: 960 [P.O.:960] Out: 1525 [Urine:1525] Post-Asia Full Liquid diet Full Liquid; 60/60/75 CHO counting level 2 Intake/Output Summary (Last 24 hours) at 05/12/16 1720 Last data filed at 05/12/16 1605 Gross per 24 hour Intake 840 ml Output 1425 ml Net -585 ml Physical Exam: General: NAD, A&Ox3, resting in bed, appears anxious HEENT: NC/AT CVS: RRR, no m/r/g Pulm: CTAB, no wheezes or rhonchi, breathing comfortably on 2LNC Abd: soft, appropriately tender, port sites c/d/i with bandaids over steri- strips, obese, non-distended Ext: warm and well perfused Neuro: Grossly intact, nonfocal, moving all four extremities spontaneously. Recent Labs 05/12/16 0508 05/11/16 0554 05/10/16 1122 WBC 4.6 4.4 4.4 HGB 9.3* 8.5* 8.7* HCT 31.0* 27.6* 28.6* PLATELET 284 255 240 Recent Labs 05/12/16 0508 05/11/16 0554 05/10/16 1122 NA 143 139 138 K 4.0 4.2 3.9 CL 102 99 99 CO2 32* 32* 27 BUN 7* 11 11 CREATININE 0.65* 0.72 0.68* GLUCOSE 64* 99 125 CALCIUM 8.6 8.3* 7.7* MAGNESIUM 0.87 0.74 0.76 PHOS 4.4 3.5 2.7 Consults: Endo: PLAN 1. Lantus 15 units now - keep afternoon dosing to help with transition back to pump 2. Novolog custom sliding scale for BG>140 with CF 30 3. Meal-associated Novolog 0-7 units tid ac (or 1unit: 12 gm carb ratio for each meal ASSESSMENT: Roxann Baxter is a 60 y.o. female 4 Days Post-Op s/p lap toupet paraesophageal hernia repair with slow progression post-operatively. Pt has continued pain and dysphagia with swallowing and having difficulty managing insulin (endocrine actively involved). PLAN BY SYSTEM N: Gabapentin 300mg TID, Toradol 15mg Q6, melatonin PRN, ativan PRN, zofran PRN, oxycodone PRN CV: Labetalol PRN, lisinorip 20mg QD Pulm: IS GI: Post-Asia Full liquid diet, may consider swallow study if symptoms persist /FE: MARVIN ID: Nystatin s/s Heme: SQH, SCDs Endo: synthroid 175mcg Qam, type I DM - managed by DM team DISPO: Floor, will need inpatient services for at least 24hours Code status: Full KRISTINA WOOD MD 05/12/2016 General Surgery [phone] * Luzmaria Valente, STEEL [employer]GER - 05/12/2016 9:05 AM EST Images from the original note were not included. Follow Up Diabetes Consult Patient Interview Roxann is still not feeling well, would like to stay on basal bolus today. Had some lows on current plan. Objective Temp: [36.9 ??C (98.4 ??F)-37.3 ??C (99.1 ??F)] Heart Rate: [65-71] Resp: [16-20] BP: (138-172)/(68-82) SpO2: [77 %-98 %] Heart Rate from SPO2: [65 bpm-79 bpm] Current Regimen 1. Lantus 18 units now - please note that this was ordered around 11:30 am -but primary team for some reason had discontinued all my orders and now I have reordered this -->scheduled to be given at 1:45pm. 2. Novolog custom sliding scale for BG>140 with CF 15 3. Meal-associated Novolog 0-7 units tid ac (or 1unit: 12 gm carb ratio for each meal Recent Glucose Levels Recent Labs 05/12/16 0727 05/12/16 0653 05/12/16 0625 05/12/16 0347 05/11/16 2345 05/11/16 1901 05/11/16 1541 05/11/16 1353 05/11/16 1142 05/11/16 0758 05/11/16 0349 05/10/16 2358 POCGLU 125 68 57* 79 79 83 176 220* 255* 90 71 109 ASSESSMENT Patient is a 60 y.o. female with PMH significant for DM-1 (Last A1C of 9.4%) who was admitted on 05/08/2016 for POD 2 s/p laparoscopic Toupet fundoplication and paraesophageal hernia repair. Diabetes suboptimally controlled and complicated by recent surgery and current hospitalization. Currently withvariability of blood glucose levels while hospitalized requiring adjustment of insulin regimen and DM medications. Hypoglycemia clearly due to basal insulin as no rapid acting given >12 hours before lows. A correction factor of 15 is quite strong for someone sensitive to insulin so will reduce both. PLAN 1. Lantus 15 units now - keep afternoon dosing to help with transition back to pump 2. Novolog custom sliding scale for BG>140 with CF 30 3. Meal-associated Novolog 0-7 units tid ac (or 1unit: 12 gm carb ratio for each meal Luzmaria Valente APRN [facility] Endocrinology Diabetes Management Pager [phone] minutes of this 35 minute visit was spent with the patient in counseling on diabetes and treatment plan, reviewing all glucose and insulin data as well as relevant laboratory results with the patient, and coordination of care on the inpatient unit including nursing and primary team. * Sabra Ash MD - 05/11/2016 1:51 PM EST Images from the original note were not included. Diabetes Management Team - Inpatient Progress Note Patient is doing ok this morning. She had an episode with BG of 71mg/dl and had felt symptoms of hypoglcyemia with some vision changes. She does not feel ready today to restart her pump. She is on full liquid diet but as per nurse, it is hard for them to give her meal-associated insulin coverages as she tends to graze off of certain foods available on the floors (juices/pudding, etc). FSBG: Diet: Post Asia full liquid diet Current inpatient DM meds: Lantus 20 units x 1 dose yesterday Sensitive SSI Meal associated insulin 1:12 g Exam: BP 171/82 (BP Location (NBP): Left arm) Pulse 73 Temp 37.3 ??C (99.1 ??F) (Oral) Resp 16 Ht 167.6 cm (5' 6) Wt 87.5 kg (192 lb 12.8 oz) LMP (LMP Unknown) SpO2 (!) 84% BMI 31.12 kg/m2 Pleasant, conversant, NAD Labs: Lab Results Component Value Date Sodium 139 05/11/2016 Potassium 4.2 05/11/2016 Chloride 99 05/11/2016 CO2 32 (H) 05/11/2016 BUN 11 05/11/2016 Creatinine 0.72 05/11/2016 Glucose Lvl 99 05/11/2016 CBC Lab Results Component Value Date WBC 4.4 05/11/2016 Hemoglobin 8.5 (L) 05/11/2016 Hematocrit 27.6 (L) 05/11/2016 Platelets 255 05/11/2016 Assessment: Patient is a 60 y.o. female with PMH significant for DM-1 (Last A1C of 9.4%) who was admitted on 05/08/2016 for POD 2 s/p laparoscopic Toupet fundoplication and paraesophageal hernia repair. Diabetes suboptimally controlled and complicated by recent surgery and current hospitalization. Currently withvariability of blood glucose levels while hospitalized requiring adjustment of insulin regimen and DM medications. Patient does not wish to resume her home insulin pump regimen today, will hold off until tomorrow. She was symptomatic with a fasting BG of 71 this AM, thus we will decrease her Lantus dose to 18 units today and continue all else. ?? She will likely have some high BG as her meal-associated insulin has been difficult to cover as nurse gives report that patient has been grazing off of foods that can be found on the floor - such as pudding/juices, etc. Plan: 1. Lantus 18 units now (one time order again as tomorrow we will likely transition her onto her insulin pump). 2. Novolog sensitive sliding scale 3. Meal-associated Novolog 0-7 units tid ac (or 1unit: 12 gm carb ratio for each meal. ?? FDC diabetes care: Medications - Outpatient treatment regimen recommendations pending based on the hospital course. Monitoring - continue BG tid ac & hs Diet - low fat/low carb diet Exercise - weight-bearing exercise 30 min/day, as tolerated ?? I have discussed this case with the attending physician, Dr. Pimentel, who was fully involved in the formulation of the plan mentioned above. ?? Thank you, Sabra Ash MD Endocrinology Fellow, PGY-4 05/11/2016 Associated attestation - Archie Pimentel MD - 05/11/2016 3:00 PM EST I saw this patient with Dr. Ash. I reviewed the metcalf portions of the history and physical exam, and reviewed pertinent lab data. I answered all patient questions. I was involved in all medical decision making and agree with this plan. ARCHIE PIMENTEL MD Customer Account Administratorcork slabs sawyer Section of Endocrinology [facility] * Nereyda Ha RN - 05/11/2016 12:00 PM EST Reports received from ELSA Balbuena from [facility]. Patient transferred to floor via wheelchair. A&O X4, VSS, Assessment complete, see doc flow. Alarms on and activated, call mills within reach. Will continue to monitor. * Minerva Plascencia MD - 05/10/2016 12:06 PM EST MIS SERVICE - DAILY PROGRESS NOTE DOA: 05/08/2016 : 1955 LOS: 2 BED: 503/503-A ATTG: Sonja Perez MD LEAH Baxter is a 60 y.o. female who is 2 Days Post-Op from laparoscopic Toupet fundoplication andparaesophageal hernia repair 24 Hour Interval Events / Pt Complaints ?? Significant PONV, improving ?? BS well controlled on moderate RISS Active Hospital Problems ?? IDDM, type I ?? Postop as above Relevant PMH / PSH ?? DM I, IDDM ?? Hypothyroidism ?? HTN, HLD, asthma, anxiety OBJECTIVE VITALS Vitals: 05/09/16 2000 05/10/16 0000 05/10/16 0400 05/10/16 0831 BP: 121/51 105/45 122/47 117/49 BP Location (NBP): Right arm Right arm Right arm Right arm Pulse: 72 61 68 75 Resp: 18 20 20 18 Temp: 36.7 ??C (98.1 ??F) 36.9 ??C (98.4 ??F) 37.1 ??C (98.8 ??F) 37.3 ??C (99.1 ??F) TempSrc: Tympanic Tympanic Tympanic Tympanic SpO2: 98% 97% 97% 90% Weight: Height: 05/09 0701 - 05/10 0700 In: 48 [I.V.:48] Out: 350 [Urine:350] EXAM AOx3, NAD S1S2+, RRR CTAB, no WRR Abdomen - Incisions cdi x5 lap Soft, nd, mildly ttp Extremities - no edema bilaterally DIET Post-Asia Full Liquid diet Full Liquid LABS Last 3 wbc, hgb, hct plt Recent Labs 05/10/16 1122 05/09/16 0534 02/11/16 2157 WBC 4.4 5.1 6.7 HGB 8.7* 9.5* 11.0* HCT 28.6* 30.6* 36.7 PLATELET 240 230 338 Last 3 Lytes Recent Labs 05/10/16 1122 05/09/16 0534 02/11/16 2157 NA 138 136 139 K 3.9 3.9 4.3 CL 99 98 97* CO2 27 26 27 BUN 11 15 16 CREATININE 0.68* 0.72 0.98 Last 3 LFTs Recent Labs 02/12/16 1606 10/30/15 1039 07/24/15 1117 AST 26 28 18 ALT 26 40* 14 ALKPHOS 60 61 69 BILITOT 0.5 0.5 0.5 BILIDIR 0.1 0.1 0.1 Last Ca, Mg, Phos Recent Labs 05/10/16 1122 CALCIUM 7.7* PHOS 2.7 Last 3 HgbA1C Recent Labs 02/13/16 0702 10/30/15 1039 07/24/15 1117 HA1C 9.4* 10.2* 9.7* STUDIES No results found. MEDS/IVF/DIET ??? insulin lispro 1-4 Units Subcutaneous Q4H NAYANA ??? insulin lispro 0-7 Units Subcutaneous TID WC ??? insulin glargine 20 Units Subcutaneous Once ??? ketorolac 15 mg Intravenous Q6H NAYANA ??? magnesium oxide 400 mg Oral BID ??? nystatin 500,000 Units Oral 4 Times Daily ??? gabapentin 300 mg Oral TID ??? lisinopril 20 mg Oral Daily ??? melatonin 9 mg Oral Nightly ??? levothyroxine 175 mcg Oral Daily ??? sodium chloride 0.9 % 5 mL Intravenous BID ??? heparin (porcine) 5,000 Units Subcutaneous Q8H NAYANA dextrose 50% 12.5-25 g Q1H PRN Or glucagon (human recombinant) 1 mg Q1H PRN BUpivacaine-EPINEPHrine Once PRN sodium chloride 0.9 % 5-20 mL Q1 Min PRN lidocaine 0.3 mL Once PRN ondansetron 4 mg Q8H PRN Or ondansetron 4 mg Q8H PRN LORazepam 0.5 mg Q4H PRN oxyCODONE 5-10 mg Q4H PRN ASSESSMENT/PLAN Roxann Baxter is a 60 y.o. female who is 2 Days Post-Op s/p Toupet fundoplication and large paraesophageal hernia repair ?? Doing well with PONV improvement ?? Encourage [place] full liquids and PO hydration ?? Continue nystatin for possible candidal esophageal irritation ?? Continue RISS; change to postprandial corrections * Jen Lester - 05/09/2016 2:03 PM EST INPATIENT DAILY PROGRESS NOTE Patient Name: Roxann Baxter Patient Age: 60 y.o. Birthdate: 1955 Admit date: 05/08/2016 Attending Physician: Sonja Perez MD ID: Roxann Baxter is a 60 y.o. female 1 Day Post-Op s/p lap paraesophageal hernia repair. 24hr events/Subjective: -ESTEBAN overnight -Pain well controlled with dPCA -Blood sugars well controlled on Q2H SS -Voiding adequately O: Last value Range last 24hrs Temperature Temp: 36.8 ??C (98.2 ??F) Temp: [36.3 ??C (97.3 ??F)-37.7 ??C (99.9 ??F)] Heart Rate Heart Rate: 73 Heart Rate: [67-79] Blood Pressure BP: 91/46 BP: (91-167)/(46-68) Respiratory Rate Resp: 18 Resp: [10-18] SpO2 SpO2: 90 % SpO2: [90 %-100 %] 2L NC BMI Body mass index is 31.12 kg/(m^2). 05/08 0701 - 05/09 0700 In: 2178.2 [I.V.:2178.2] Out: 468 [Urine:450] Post-Asia Clear Liquid diet Clear Liquid Post-Asia Full Liquid diet Full Liquid Physical Exam: General: NAD, A&Ox3, resting in bed, cooperative HEENT: EOMI, anicteric sclerae CVS: RRR, no m/r/g Pulm: CTAB, no wheezes or rhonchi Abd: soft, non-tender, non-distended. Lap incision sites c/d/i. Skin: warm, dry Ext: well perfused, no edema Neuro: Grossly intact, nonfocal, moving all four extremities spontaneously. Recent Labs 05/09/16 0534 WBC 5.1 HGB 9.5* HCT 30.6* PLATELET 230 Recent Labs 05/09/16 0534 NA 136 K 3.9 CL 98 CO2 26 BUN 15 CREATININE 0.72 GLUCOSE 189 CALCIUM 7.9* MAGNESIUM 0.60* PHOS 3.8 ASSESSMENT: Roxann Baxter is a 60 y.o. female s/p lap paraesophageal hernia repair. She was somewhat tired this AM but HDS. Throughout the morning she has increased PO intake slowly. Will attempt to advance along the pathway today. PLAN -Home gabapentin, synthroid, lisinopril -Toradol, Oxycodone PRN -Stage I CLD --> Stage II Fulls -HLIV (resume IVF if poor PO intake) -[facility] DISPO: Floor status Code status: Full code JEN LESTER MD PGY 2 General Surgery MIS [id number] * Tico Pool - 05/09/2016 10:00 AM EST Nutrition Services - Education Note Roxann Baxter : 1955 AGE: 60 y.o. MedDx/PMHx: [place] Reason for Nutrition Intervention: Consult Diet Order: [place] Appetite: poor Food allergies: NKFA Ht Readings from Last 3 Encounters: 05/08/16 167.6 cm (5' 6) 03/04/16 167.6 cm (5' 5.98) 02/11/16 167.6 cm (5' 5.98) Wt Readings from Last 3 Encounters: 05/08/16 87.5 kg (192 lb 12.8 oz) 03/11/16 93.4 kg (206 lb) 03/04/16 92.8 kg (204 lb 9.6 oz) Body mass index is 31.12 kg/(m^2). Education: [place] dietary guidelines. Verbalized good understanding. Education material, with means of contact provided. Assessment: Patient verbalized good understanding of [place] guidelines. Highly recommended to follow foods allowed/foods not allowed list. Encouraged pt to include a supplement drink into diet onceat home for additional calories and protein Pt stated that she will be doing Glucerna shakes at home, coupons provided. I have provided contact information in case any further questions should arise. Nutrition Plan: Diet: [place] Encourage good po intake. Monitor weight. Support and encouragement provided. Nutrition services to follow weekly thru hospital course unless consulted in the interim. ANETA Viramontes * Elham Randhawa RN - 05/08/2016 6:44 PM EST Tool Trouble Shooter assumed care of pt upon transfer from PACU. Pt with active nausea and small <5mL emesis upon arrival to floor. Ativan given per JUN for nausea. Pt with some relief. Assessment and vitals done per doc flow. Pt orientated to room and call light. Per MD would like finger sticks checked Q2 hours and will update insulin orders as well. 1845: Pt with increased nausea and after attempting to take in some PO. Nausea meds given per JUN. Pt requesting to wait on PO meds until nausea has passed. Please see MAR and doc flow for additional information. * Ann Keating RN - 05/08/2016 3:38 PM EST S/p lap hernia repair for GERD fs covered with 8 units SQ q 2 hour Blood sugars due at 1630 has pnt's insulin pump Will remain on coverage q 2 hrs until seen by endocrine Began post op retching Resolved with scop patch Compazine IV And repositoning FACILITY MANAGER for pain Shoulders more than surgical pain Incontinent of urine Twice in OR Once post op Residual was 275 * Yanira Chavez RN - 05/08/2016 1:51 PM EST 1340: Pt arrived from OR s/p paraesophageal hernia repair. Pt placed on monitor and all alarms set per pt needs, ID band all safety checks completed. Report received from anes and surgical service. Airway unsupported and stable on simplemask 6L. Pt remains somnolent, arouses easily to voice. Pt reports some nausea on arrival. Blood glucose checked, pt will have to re access insulin pump. 5x lap sites, all c/d/i with bandaids. 1400: nausea increased, phenergan given. Report to Dalila HUNTER documented in this encounter H&P Notes * Sonja Perez MD - 05/08/2016 10:20 AM EST Patient Name: Roxann Baxter Patient Age: 60 y.o. Birthdate: 1955 Admit date: 05/08/2016 Attending Physician: Sonja Perez MD Roxann Baxter is a 60 y.o. female, Body mass index is 33.27 kg/(m^2)., with Type I DM on continuous insulin via pump, who is known to Dr. Perez since 2013. She initially presented for evaluation of severe GERD with esophagitis, as well as a moderate sized Hiatal Hernia, and her extensive workup and symptomatology are suggestive of both severe GERD (with esophagitis, non-dysplastic Giron's, and Type I HH, possible paraesophageal component), as well as esophageal dysmotility and mild gastroparesis. ?? Her surgical options were reviewed at her last visits, including anti-reflux surgery (fundoplication) with hiatal hernia repair, or gastric bypass surgery. She has since attended the introductory Bariatric Information session to explore the scope of the bariatric program and the lifestyle alterations that are involved after gastric bypass surgery. She returns to us for further discussion of her clinical picture and to finalize surgical decision making regarding her GERD. ?? At this visit she endorses continous symptoms of acid reflux despite sleeping on a ramp and BID PPI. She is interested in surgical intervention and after attending the Bariatric Information session, feels like the discussion often does not pertain to her because her reasons for choosing a laparoscopic gastric bypass would be different (GERD v obesity). ?? Symptoms: ?? Hx of reflux x20+ years, of which she has been on a PPI [id number], ?? Reflux symptoms breath through often, despite taking omeprazole currently 40mg BID and sleeping with ramp ?? Hx of waking up with acid in the mouth, now sleeps on a ramp but still is awoken at night with reflux ?? Chronic cough, stimulated by acid ?? Hx of dysphagia, with globus, feeling of sticking in the throat, now takes small bites, chews them fine, multi small meals ?? Hx of regurgitation of ingested foodstuffs ?? Early satiety and post-prandial fullness ?? Denies: SOB, formal emesis, hemetemesis ?? Workup ?? 02/2016 - Barium - Moderately large hiatal hernia with a paraesophageal component; GE junction above diaphragm. There is no obstruction between the herniated portion and the remainder of the stomach. ?? 12/2015 - EGD - Tortuous esophagus, mod severe reflux and erosive esophagitis (BX = nondysplastic Barretts, active and chronic inflammation, foveolar hyperplasia), Large 8-10cm HH, poss twist/para component. Erythema antrum (BX = gastritis, foveolar hyperplasia).Duodenal mucosa (BX = no celiac disease, nl villous architecture). High-resolution esophageal manometry 09/05/14: hypotensive LES, normal LES relaxation, normal UES resting pressure and relaxation, severe ineffective esophageal motility. ? PMHx DM I, with PDretinopathy; hx of DKA Poorly controlled glucose, A1C = 9.4 (02/2016); 10.2 (10/2015); 9.7 (07/2015) HTN, HLD Hypothyroidism GERD with esophagitis and Barretts Fecal incontinence and constipation Iron deficiency anemia Diabetic retinopathy, cataracts, retinal neovascularization, vitreous hemorrhage of eye, Anxiety, depression ?? PSHx EGD (multiple) Retinal surgery Vitrectomy Finger surgery Cataract removal ?? Exam: Mildly obese No apparent distress. PERRLA, EOMI Supple neck Chest clear, no WRR S1S2 no MRG Abdomen soft ND NT Extremity and Neuro exams are grossly normal. documented in this encounter Miscellaneous Notes * Plan of Care - Christy Rawls OT - 05/16/2016 1:08 PM EST Problem: Patient Care Overview Goal: Plan of Care Review Outcome: Ongoing (Interventions Implemented as Appropriate) 05/16/16 1258 Plan of Care Review Progress improving Coping/Psychosocial Plan Of Care Reviewed With patient Occupational Therapy Evaluation Subjective: I have concerns about how I am going to manage at home, my and 16 year old daughter are useless. Pertinent History of Current Problem: 60 y.o. female with HTN, HLD, hypothyroidism, and type I DM who is s/p lap toupet paraesophageal hernia repair on y.o. female with HTN, HLD, hypothyroidism,and type I DM who is s/p lap toupet paraesophageal hernia repair on 05/08 Active Non-Hospital Problems Diagnosis ??? MDD (major depressive disorder), recurrent episode, moderate ??? Presence of insulin pump ??? Pseudophakia of both eyes (OD - 10/17/14, OS - 09/26/14) ??? Urinary incontinence ??? Diabetic retinopathy ??? Vitreous hemorrhage of right eye ??? IDDM (insulin dependent diabetes mellitus) ??? Dysphagia ??? Constipation ??? PDR (proliferative diabetic retinopathy) ??? Scoliosis ??? Chronic low back pain ??? Seborrheic keratosis ??? Solar lentigo ??? Xerosis cutis ??? Pruritus ??? Nuclear sclerosis ??? Proliferative diabetic retinopathy of both eyes.-mild resolving bilateral vitreous hemorrhages.No traction. Good PRP. ??? Psoriatic arthritis.currently on Hydroxychloroquine. No signs of hydroxychloroquine retinopathy. Recommend close followup. ??? PDR (proliferative diabetic retinopathy) ??? Cortical cataract ??? Retinal neovascularization of right eye ??? Vitreous hemorrhage of left eye ??? PSC (posterior subcapsular cataract), bilateral ??? Type 1 diabetes mellitus ??? Reflux esophagitis ??? Gastritis ??? Anasarca ??? DKA (diabetic ketoacidoses) ??? Hypertension ??? Hyperlipidemia ??? Hypothyroidism ??? Psoriasis ??? Depression ??? Iron deficiency ??? Asthma ??? Microcytic anemia ??? GERD (gastroesophageal reflux disease) ??? Giron's esophagus ??? Diabetic retinopathy associated with type 1 diabetes mellitus ??? Diabetes mellitus Precautions/Restrictions: fall Precautions Comments: insulin pump Social History: Lives with her and 16 year old daughter (who has an ). 2 story home, walk in shower with seat main floor. Functional status prior to admit: ADLs: Independent Functional mobility: Independent but history offalls. Assessment: Patient presents with impaired ability to perform daily activities and functional mobility secondary to surgical incision, pain, history of falls, has history of psoriatic arthritis, an insulin pump with difficulty managing intake. and daughter are unable to provide the assist patient may need. While patient was able to dress herself with supervision, her mobility appears a bit unsteady, advised PT. Discussed having a home safety evaluation and home health aid upon dischargehome, anticipates discharge today. Therapy Frequency: evaluation only (Patient anticipates being discharged today) Anticipated Equipment Needs at Discharge: shower chair Anticipated Discharge Disposition: home with home health, home safety evaluation, home health aid. Staff Recommendations: ?? Encourage out of bed activity and participation in daily self-care tasks Christy Rawls OT/L Pager [phone] Occupational Therapist Rehabilitation Department Goal: Discharge Needs Assessment Outcome: Ongoing (Interventions Implemented as Appropriate) 05/16/16 7278 Discharge Needs Assessment Concerns To Be Addressed basic needs concerns;coping/stress concerns Community Agency Name(s) Recommend home safety evaluation, home health aide. * Plan of Care - Gonsalo Yanez RN - 05/16/2016 6:31 AM EST Problem: Patient Care Overview Goal: Plan of Care Review Outcome: Ongoing (Interventions Implemented as Appropriate) ?? 05/09/16 0407 05/14/161953 Plan of Care Review Progress progress towards functional goals is fair -- Coping/Psychosocial Plan Of Care Reviewed With -- patient ? OUTCOME EVALUATION NOTE: ? OUTCOME SUMMARY: ? No complaints throughout night. 1 dose of oxycodone needed before bed with great affect. Slept wellthroughout night. Incisions are CDI with steristrips. ? PLAN MOVING FORWARD: ? Increased mobility ? INDIVIDUALIZED FALL PREVENTION INTERVENTIONS: ? Patient-specific fall risk factors per assessment: [current deficits]: Lightheaded, narcotic ? Assistance [level of assistance required for transfers and ambulation]: Standby ? Supervision [direct monitoring required during toileting and ADLs]: Standby ? Surveillance [continuous indirect monitoring]: Masimo, purposeful rounding ? Patient-specific fall prevention interventions for sensory deficits provided, if applicable: [X] Yes ? CPG GOAL OUTCOME EVALUATION: ? Goal: Individualization & Mutuality Outcome: Ongoing (Interventions Implemented as Appropriate) ?? 05/11/16 1800 Mutuality/Individual Preferences What Anxieties, Fears or Concerns Do You Have About Your Health or Care? not really What Questions Do You Have About Your Health or Care? nope What Information Would Help Us Give You More Personalized Care? nope ?? Goal: Fall Prevention-Safe Patient Handling Outcome: Ongoing (Interventions Implemented as Appropriate) ?? 05/11/16 1446 05/14/161953 Musculoskeletal Interventions Muscle Strengthening activity/mobility promoted;mobility in bed promoted -- Daily Care Interventions Self-Care Promotion -- independence encouraged;BADL personal objects within reach [place] Fall Risk History of Falling -- 0 Secondary Diagnosis -- 15 Ambulatory Aids -- 0 Intravenous Therapy/Heparin/Saline Lock -- 20 Gait/Transferring -- 0 Mental Status -- 0 Score -- 35 OTHER [place] Fall Risk -- Med Restraint Interventions Safety Promotion/Fall Prevention -- nonskid shoes/slippers when out of bed;muscle strengthening facilitated;fall prevention program maintained;safety round/check completed Positioning Body Position -- independent ?? Goal: Infection Control Outcome: Ongoing (Interventions Implemented as Appropriate) ?? 05/14/16 195 Safety Interventions Isolation Precautions standard precautions maintained Infection Prevention environmental surveillance performed;rest/sleep promoted Coping Strategies Supportive Measures active listening utilized ?? Goal: Discharge Needs Assessment Outcome: Ongoing (Interventions Implemented as Appropriate) ?? 05/09/16 0407 05/11/16 1800 Discharge Needs Assessment Concerns To Be Addressed no discharge needs identified -- Readmission Within The Last 30 Days no previous admission in last 30 days -- Equipment Needed After Discharge none -- Discharge Disposition home or self-care -- Current Health Anticipated Changes Related to Illness none -- Activity/Self Care Review of Systems Equipment Currently Used at Home none -- Living Environment Transportation Available -- car;family or friend will provide ?? Goal: Interdisciplinary Rounds/Family Conf Outcome: Ongoing (Interventions Implemented as Appropriate) ?? 05/14/16 0526 Interdisciplinary Rounds/Family Conf Participants nursing;patient;physician * Plan of Care - Luis Alvarado - 05/15/2016 2:00 PM EST Problem: Patient Care Overview Goal: Plan of Care Review Outcome: Ongoing (Interventions Implemented as Appropriate) Physical Therapy Assessment Treatment Number: 1 Pt seen for skilled PT session, including evaluation. Please see the Rehab Evaluation Summaries report for objective data and specifics of today???s session. Pt tolerated today's session well. Generally comes across as not confident she can do much, but in actuality did well. She will need to demons trate ability to performs stairs which I do NOT anticipate will be a problem. She already has a walker at home and could be indep using it today if she were at home. Patient presents with decreased activity tolerance/willingness, and will benefit from PT to address his/her deficits. Anticipate homewith general support of family and no ongoing PT needs at d/c. Pertinent History of Current Problem: 60 y.o. female with HTN, HLD, hypothyroidism, and type I DM who is s/p lap toupet paraesophageal hernia repair on 2 Staff Mobility Recommendations: OOB and amb with assist while here, using walker Precautions/Restrictions: other (see comments) Precautions Comments: insulin pump Anticipated Physical Therapy Frequency: 2-3 times/wk Anticipated Discharge Disposition: home with assist Luis Alvarado PT Pager [phone] Inpatient Physical Therapy Problem: Acute Rehab Services Goal & Intervention Plan Goal: Gait Training Goal Stand Alone Therapy Goal Outcome: Ongoing (Interventions Implemented as Appropriate) 05/15/16 1356 Gait Training Goal Gait Training Goal, Date Established 05/15/16 Gait Training Goal, Time to Achieve 2 days Gait Training Goal, Hettinger Level independent Gait Training Goal, Assist Device walker, rolling (if necessary) Gait Training Goal, Distance to Achieve 150 ft Goal: Physical Therapy Goal Stand Alone Therapy Goal Outcome: Ongoing (Interventions Implemented as Appropriate) 05/15/16 1356 Physical Therapy Goal PT Goal, Date Established 05/15/16 PT Goal, Time to Achieve 2 days PT Goal, Het[place]er Level supervision required PT Goal, Additional Goal negotiate flight of stairs with rail Goal: Goal Transfer Training Stand Alone Therapy Goal Outcome: Ongoing (Interventions Implemented as Appropriate) 05/15/16 1356 Goal Transfer Training Transfer Training Goal, Date Established 05/15/16 Transfer Training Goal, Time to Achieve 2 days Transfer Training Goal, Activity Type all transfers Transfer Train Goal, Hettinger Level independent * Plan of Care - Luis Orourke RN - 05/15/2016 4:11 AM EST Problem: Patient Care Overview Goal: Plan of Care Review Outcome: Ongoing (Interventions Implemented as Appropriate) 05/09/16 0407 05/14/16 1954 Plan of Care Review Progress progress towards functional goals is fair -- Coping/Psychosocial Plan Of Care Reviewed With -- patient OUTCOME EVALUATION NOTE: OUTCOME SUMMARY: Roxann had a better night. Nausea much better this shift, has not needed any PRN medications for nausea. Monitoring glucose q4 - needed juice x2 for hypoglycemia at midnight. Denies pain. PLAN MOVING FORWARD: Activity as tolerated. Monitor for pain/nausea. Monitor glucose. INDIVIDUALIZED FALL PREVENTION INTERVENTIONS: Patient-specific fall risk factors per assessment: [current deficits]: Lightheaded Assistance [level of assistance required for transfers and ambulation]: Standby Supervision [direct monitoring required during toileting and ADLs]: Standby Surveillance [continuous indirect monitoring]: Masimo, purposeful rounding, call mills in reach Patient-specific fall prevention interventions for sensory deficits provided, if applicable: [X] Yes CPG GOAL OUTCOME EVALUATION: Goal: Individualization & Mutuality Outcome: Ongoing (Interventions Implemented as Appropriate) 05/11/16 1800 Mutuality/Individual Preferences What Anxieties, Fears or Concerns Do You Have About Your Health or Care? not really What Questions Do You Have About Your Health or Care? nope What Information Would Help Us Give You More Personalized Care? nope Goal: Fall Prevention-Safe Patient Handling Outcome: Ongoing (Interventions Implemented as Appropriate) 05/11/16 1446 05/14/16 1954 Musculoskeletal Interventions Muscle Strengthening activity/mobility promoted;mobility in bed promoted -- Daily Care Interventions Self-Care Promotion -- independence encouraged;BADL personal objects within reach [place] Fall Risk History of Falling -- 0 Secondary Diagnosis -- 15 Ambulatory Aids -- 0 Intravenous Therapy/Heparin/Saline Lock -- 20 Gait/Transferring -- 0 Mental Status -- 0 Score -- 35 OTHER [place] Fall Risk -- Med Restraint Interventions Safety Promotion/Fall Prevention -- nonskid shoes/slippers when out of bed;muscle strengthening facilitated;fall prevention program maintained;safety round/check completed Positioning Body Position -- independent Goal: Infection Control Outcome: Ongoing (Interventions Implemented as Appropriate) 05/14/16 1954 Safety Interventions Isolation Precautions standard precautions maintained Infection Prevention environmental surveillance performed;rest/sleep promoted Coping Strategies Supportive Measures active listening utilized Goal: Discharge Needs Assessment Outcome: Ongoing (Interventions Implemented as Appropriate) 05/09/16 0407 05/11/16 1800 Discharge Needs Assessment Concerns To Be Addressed no discharge needs identified -- Readmission Within The Last 30 Days no previous admission in last 30 days -- Equipment Needed After Discharge none -- Discharge Disposition home or self-care -- Current Health Anticipated Changes Related to Illness none -- Activity/Self Care Review of Systems Equipment Currently Used at Home none -- Living Environment Transportation Available -- car;family or friend will provide Goal: Interdisciplinary Rounds/Family Conf Outcome: Ongoing (Interventions Implemented as Appropriate) 05/14/16 0526 Interdisciplinary Rounds/Family Conf Participants nursing;patient;physician * Plan of Care - Luis Orourke RN - 05/14/2016 5:35 AM EST Problem: Patient Care Overview Goal: Plan of Care Review Outcome: Ongoing (Interventions Implemented as Appropriate) 05/09/16 0407 05/13/162000 Plan of Care Review Progress progress towards functional goals is fair -- Coping/Psychosocial Plan Of Care Reviewed With -- patient OUTCOME EVALUATION NOTE: OUTCOME SUMMARY: Roxann had another shift plagued with nausea, despite zofran and ativan use. MD Cruz notified, added phenergan which provided relief. Continues to desat on RA while sleeping, needing 2L NC to maintain O2. PLAN MOVING FORWARD: Nausea control. Encourage activity/IS use. INDIVIDUALIZED FALL PREVENTION INTERVENTIONS: Patient-specific fall risk factors per assessment: [current deficits]: Nausea with activity Assistance [level of assistance required for transfers and ambulation]: Standby Supervision [direct monitoring required during toileting and ADLs]: Standby Surveillance [continuous indirect monitoring]: Masimo, purposeful rounding, call mills in reach Patient-specific fall prevention interventions for sensory deficits provided, if applicable: [X] Yes CPG GOAL OUTCOME EVALUATION: Goal: Individualization & Mutuality Outcome: Ongoing (Interventions Implemented as Appropriate) 05/11/16 1800 Mutuality/Individual Preferences What Anxieties, Fears or Concerns Do You Have About Your Health or Care? not really What Questions Do You Have About Your Health or Care? nope What Information Would Help Us Give You More Personalized Care? nope Goal: Fall Prevention-Safe Patient Handling Outcome: Ongoing (Interventions Implemented as Appropriate) 05/11/16 1446 05/12/16 0332 05/13/162000 Musculoskeletal Interventions Muscle Strengthening activity/mobility promoted;mobility in bed promoted -- -- Daily Care Interventions Self-Care Promotion -- independence encouraged -- [place] Fall Risk History of Falling -- -- 0 Secondary Diagnosis -- -- 15 Ambulatory Aids -- -- 0 Intravenous Therapy/Heparin/Saline Lock -- -- 20 Gait/Transferring -- -- 0 Mental Status -- -- 0 Score -- -- 35 OTHER [place] Fall Risk -- -- Med Restraint Interventions Safety Promotion/Fall Prevention -- -- fall prevention program maintained;nonskid shoes/slippers when out of bed;safety round/check completed Positioning Body Position -- -- -- 05/14/16 0344 Musculoskeletal Interventions Muscle Strengthening -- Daily Care Interventions Self-Care Promotion -- [place] Fall Risk History of Falling -- Secondary Diagnosis -- Ambulatory Aids -- Intravenous Therapy/Heparin/Saline Lock -- Gait/Transferring -- Mental Status -- Score -- OTHER [place] Fall Risk -- Restraint Interventions Safety Promotion/Fall Prevention -- Positioning Body Position independent Goal: Infection Control Outcome: Ongoing (Interventions Implemented as Appropriate) 05/13/162000 Safety Interventions Isolation Precautions standard precautions maintained Infection Prevention environmental surveillance performed;rest/sleep promoted Coping Strategies Supportive Measures active listening utilized Goal: Discharge Needs Assessment Outcome: Ongoing (Interventions Implemented as Appropriate) 05/09/16 04005/11/16 1800 Discharge Needs Assessment Concerns To Be Addressed no discharge needs identified -- Readmission Within The Last 30 Days no previous admission in last 30 days -- Equipment Needed After Discharge none -- Discharge Disposition home or self-care -- Current Health Anticipated Changes Related to Illness none -- Activity/Self Care Review of Systems Equipment Currently Used at Home none -- Living Environment Transportation Available -- car;family or friend will provide Goal: Interdisciplinary Rounds/Family Conf Outcome: Ongoing (Interventions Implemented as Appropriate) 05/14/16 0526 Interdisciplinary Rounds/Family Conf Participants nursing;patient;physician * Plan of Care - Nereyda Ha RN - 05/13/2016 3:27 PM EST Problem: Patient Care Overview Goal: Plan of Care Review Outcome: Ongoing (Interventions Implemented as Appropriate) 05/09/1640605/13/16 0900 Plan of Care Review Progress progress towards functional goals is fair -- Coping/Psychosocial Plan Of Care Reviewed With -- patient OUTCOME EVALUATION NOTE: OUTCOME SUMMARY: Roxann had a busy day. Pain managed with current regimen. Ambulated to bathroom a couple times, but reports nausea with movement; zofran and ativan given with good relief; continues to ask when she won't be nauseous anymore. NPO this morning for a barium swallow, patient asked why she couldn't have anything to eat or drink, education given. Dressings c/d/i. In good spirits, will continue to monitor. PLAN MOVING FORWARD: Pain management, Nausea management, Blood glucose management, Ambulation, Encourage IS, NPO INDIVIDUALIZED FALL PREVENTION INTERVENTIONS: Patient-specific fall risk factors per assessment: [current deficits]: Pain, Narcotics, Intermittent nausea, Generalized weakness Assistance [level of assistance required for transfers and ambulation]: SBA Supervision [direct monitoring required during toileting and ADLs]: Eyes on Surveillance [continuous indirect monitoring]: Purposeful rounding, Call mills within reach Patient-specific fall prevention interventions for sensory deficits provided, if applicable: Yes CPG GOAL OUTCOME EVALUATION: Goal: Individualization & Mutuality Outcome: Ongoing (Interventions Implemented as Appropriate) 05/11/16 1800 Mutuality/Individual Preferences What Anxieties, Fears or Concerns Do You Have About Your Health or Care? not really What Questions Do You Have About Your Health or Care? nope What Information Would Help Us Give You More Personalized Care? nope Goal: Fall Prevention-Safe Patient Handling Outcome: Ongoing (Interventions Implemented as Appropriate) 05/11/16 1446 05/12/16 0332 05/13/16 0900 Musculoskeletal Interventions Muscle Strengthening activity/mobility promoted;mobility in bed promoted -- -- Daily Care Interventions Self-Care Promotion -- independence encouraged -- Newberry Fall Risk History of Falling -- -- 0 Secondary Diagnosis -- -- 15 Ambulatory Aids -- -- 0 Intravenous Therapy/Heparin/Saline Lock -- -- 20 Gait/Transferring -- -- 0 Mental Status -- -- 0 Score -- -- 35 OTHER Newberry Fall Risk -- -- Med Restraint Interventions Safety Promotion/Fall Prevention -- -- activity supervised;fall prevention program maintained;muscle strengthening facilitated;nonskid shoes/slippers when out of bed;safety round/check completed Positioning Body Position -- -- independent Goal: Infection Control Outcome: Ongoing (Interventions Implemented as Appropriate) 05/13/16 0900 Safety Interventions Isolation Precautions standard precautions maintained Infection Prevention rest/sleep promoted Coping Strategies Supportive Measures active listening utilized;relaxation techniques promoted;self-care encouraged;verbalization of feelings encouraged Goal: Discharge Needs Assessment Outcome: Ongoing (Interventions Implemented as Appropriate) 05/09/16 0407 05/11/16 1800 Discharge Needs Assessment Concerns To Be Addressed no discharge needs identified -- Readmission Within The Last 30 Days no previous admission in last 30 days -- Equipment Needed After Discharge none -- Discharge Disposition home or self-care -- Current Health Anticipated Changes Related to Illness none -- Activity/Self Care Review of Systems Equipment Currently Used at Home none -- Living Environment Transportation Available -- car;family or friend will provide Goal: Interdisciplinary Rounds/Family Conf Outcome: Ongoing (Interventions Implemented as Appropriate) 05/13/16 1518 Interdisciplinary Rounds/Family Conf Participants patient;nursing * Plan of Care - Marybeth Panda RN - 05/12/2016 11:20 PM EST 80ml of orange juice given for CBG of 52-pt. Asymptomatic 100ml of apple juice given for CBG of 71 * Plan of Care - Luis Orourke RN - 05/12/2016 4:34 PM EST Problem: Patient Care Overview Goal: Plan of Care Review Outcome: Ongoing (Interventions Implemented as Appropriate) 05/09/16 0407 05/12/16 0917 Plan of Care Review Progress progress towards functional goals is fair -- Coping/Psychosocial Plan Of Care Reviewed With -- patient OUTCOME EVALUATION NOTE: OUTCOME SUMMARY: Roxann had a rough morning and afternoon. Frequent nausea but only dry heaving as a result. See MAR for med administration for nausea control. BP this morning was 172/68. Team made aware, added PRN IV options for BP control due to inability to take PO meds. Nausea improved late afternoon/early evening, pt was able to get OOB and ambulate to the bathroom without return of symptoms. Appetite has been poor today, no breakfast and minimal lunch eaten. Hypoglycemic this morning, drank juice and improved. Seen by endocrinology, see their note regarding care and recommendations. PLAN MOVING FORWARD: Pain and nausea control. Monitor tolerance of diet. Activity as tolerated. INDIVIDUALIZED FALL PREVENTION INTERVENTIONS: Patient-specific fall risk factors per assessment: [current deficits]: Pain, narcotics Assistance [level of assistance required for transfers and ambulation]: Standby Supervision [direct monitoring required during toileting and ADLs]: Standby Surveillance [continuous indirect monitoring]: Masimo, purposeful rounding, call mills in reach Patient-specific fall prevention interventions for sensory deficits provided, if applicable: [X] Yes - glasses CPG GOAL OUTCOME EVALUATION: Goal: Fall Prevention-Safe Patient Handling Outcome: Ongoing (Interventions Implemented as Appropriate) 05/11/16 1446 05/12/16 0332 05/12/16 0917 Musculoskeletal Interventions Muscle Strengthening activity/mobility promoted;mobility in bed promoted -- -- Daily Care Interventions Self-Care Promotion -- independence encouraged -- Newberry Fall Risk History of Falling -- -- 0 Secondary Diagnosis -- -- 15 Ambulatory Aids -- -- 0 Intravenous Therapy/Heparin/Saline Lock -- -- 20 Gait/Transferring -- -- 10 Mental Status -- -- 0 Score -- -- 45 OTHER Newberry Fall Risk -- -- High Restraint Interventions Safety Promotion/Fall Prevention -- -- activity supervised;fall prevention program maintained;muscle strengthening facilitated;nonskid shoes/slippers when out of bed;safety round/check completed Positioning Body Position -- -- -- 05/12/16 1539 Musculoskeletal Interventions Muscle Strengthening -- Daily Care Interventions Self-Care Promotion -- Newberry Fall Risk History of Falling -- Secondary Diagnosis -- Ambulatory Aids -- Intravenous Therapy/Heparin/Saline Lock -- Gait/Transferring -- Mental Status -- Score -- OTHER Newberry Fall Risk -- Restraint Interventions Safety Promotion/Fall Prevention -- Positioning Body Position independent Goal: Infection Control Outcome: Ongoing (Interventions Implemented as Appropriate) 05/12/16 0917 Safety Interventions Isolation Precautions standard precautions maintained Infection Prevention environmental surveillance performed;rest/sleep promoted Coping Strategies Supportive Measures active listening utilized Goal: Discharge Needs Assessment Outcome: Ongoing (Interventions Implemented as Appropriate) 05/09/16 0407 05/11/16 1800 Discharge Needs Assessment Concerns To Be Addressed no discharge needs identified -- Readmission Within The Last 30 Days no previous admission in last 30 days -- Equipment Needed After Discharge none -- Discharge Disposition home or self-care -- Current Health Anticipated Changes Related to Illness none -- Activity/Self Care Review of Systems Equipment Currently Used at Home none -- Living Environment Transportation Available -- car;family or friend will provide Goal: Interdisciplinary Rounds/Family Conf Outcome: Ongoing (Interventions Implemented as Appropriate) 05/12/16 1626 Interdisciplinary Rounds/Family Conf Participants nursing;patient;physician * Plan of Care - Lou Martell RN - 05/12/2016 3:35 AM EST Problem: Skin Integrity Impairment, Risk/Actual (Adult) Goal: Identify Related Risk Factors and Signs and Symptoms Related risk factors and signs and symptoms are identified upon initiation of Human Response Clinical Practice Guideline (CPG) Outcome: Outcome (s) achieved Date Met: 05/12/16 05/09/16 0407 Skin Integrity Impairment, Risk/Actual Skin Integrity Impairment, Risk/Actual: Related Risk Factors surgery/procedure Goal: Skin Integrity/Wound Healing Patient will demonstrate the desired outcomes by discharge/transition of care. Outcome: Ongoing (Interventions Implemented as Appropriate) 05/11/16 0749 Skin Integrity Impairment, Risk/Actual (Adult) Skin Integrity/Wound Healing making progress toward outcome Problem: Patient Care Overview Goal: Plan of Care Review Outcome: Ongoing (Interventions Implemented as Appropriate) 05/09/16 0407 05/11/16 193 Plan of Care Review Progress progress towards functional goals is fair -- Coping/Psychosocial Plan Of Care Reviewed With -- patient OUTCOME EVALUATION NOTE: OUTCOME SUMMARY: Roxann had an OK night. Pain adequately controlled, pt reporting increased pain with activity. Deniesnausea, tolerating full liquid diet. IS use encouraged, pt reaching between 500-700. Sleeping between care PLAN MOVING FORWARD: Encourage activity, pain control, monitor blood sugars INDIVIDUALIZED FALL PREVENTION INTERVENTIONS: Patient-specific fall risk factors per assessment: [current deficits]: Pain, narcotics, general weakness Assistance [level of assistance required for transfers and ambulation]: 1 assist Supervision [direct monitoring required during toileting and ADLs]: Arms reach Surveillance [continuous indirect monitoring]: Purposeful rounding, call mills within reach, room near unit station, bed alarm Patient-specific fall prevention interventions for sensory deficits provided, if applicable: Nonskid footwear, lights adjusted, room free from clutter CPG GOAL OUTCOME EVALUATION: Goal: Individualization & Mutuality Outcome: Ongoing (Interventions Implemented as Appropriate) 05/11/16 1800 Mutuality/Individual Preferences What Anxieties, Fears or Concerns Do You Have About Your Health or Care? not really What Questions Do You Have About Your Health or Care? nope What Information Would Help Us Give You More Personalized Care? nope Goal: Fall Prevention-Safe Patient Handling Outcome: Ongoing (Interventions Implemented as Appropriate) 05/11/16 1446 05/11/16 1933 05/12/16 0332 Musculoskeletal Interventions Muscle Strengthening activity/mobility promoted;mobility in bed promoted -- -- Daily Care Interventions Self-Care Promotion -- -- independence encouraged Newberry Fall Risk History of Falling -- 0 -- Secondary Diagnosis -- 15 -- Ambulatory Aids -- 0 -- Intravenous Therapy/Heparin/Saline Lock -- 20 -- Gait/Transferring -- 10 -- Mental Status -- 0 -- Score -- 45 -- OTHER Newberry Fall Risk -- High -- Restraint Interventions Safety Promotion/Fall Prevention -- activity supervised;nonskid shoes/slippers when out of bed;safety round/check completed -- Positioning Body Position -- independent -- Goal: Infection Control Outcome: Ongoing (Interventions Implemented as Appropriate) 05/11/16 1933 Safety Interventions Isolation Precautions standard precautions maintained Infection Prevention rest/sleep promoted Coping Strategies Supportive Measures active listening utilized;counseling provided;verbalization of feelings encouraged;self-care encouraged;problem solving facilitated;positive reinforcement provided Goal: Discharge Needs Assessment Outcome: Ongoing (Interventions Implemented as Appropriate) 05/09/16 0407 05/11/16 1800 Discharge Needs Assessment Concerns To Be Addressed no discharge needs identified -- Readmission Within The Last 30 Days no previous admission in last 30 days -- Equipment Needed After Discharge none -- Discharge Disposition home or self-care -- Current Health Anticipated Changes Related to Illness none -- Activity/Self Care Review of Systems Equipment Currently Used at Home none -- Living Environment Transportation Available -- car;family or friend will provide * Plan of Care - Nereyda Ha RN - 05/11/2016 3:32 PM EST Problem: Patient Care Overview Goal: Plan of Care Review Outcome: Ongoing (Interventions Implemented as Appropriate) 05/09/16 0407 05/11/16 1200 Plan of Care Review Progress progress towards functional goals is fair -- Coping/Psychosocial Plan Of Care Reviewed With -- patient OUTCOME EVALUATION NOTE: OUTCOME SUMMARY: Roxann had an okay day. Pain managed with current regimen and states that her pain is minimal at rest. Patient reported nausea upon arrival to floor, stating the wheelchair ride made her feel sick, zofran given X1 with good effect. She reported more nausea around 1400, compazine ordered and given X1 with good effect. Resting between care. Family supportive and attentive to patient this afternoon. In good spirits, will continue to monitor. PLAN MOVING FORWARD: Pain management, Encourage ambulation, Encourage IS, Blood glucose management, Transition to insulin pump tomorrow INDIVIDUALIZED FALL PREVENTION INTERVENTIONS: Patient-specific fall risk factors per assessment: [current deficits]: Pain, Narcotics, Nausea, Generalized weakness Assistance [level of assistance required for transfers and ambulation]: SBA Supervision [direct monitoring required during toileting and ADLs]: Eyes on Surveillance [continuous indirect monitoring]: Purposeful rounding, Call mills within reach Patient-specific fall prevention interventions for sensory deficits provided, if applicable: Yes CPG GOAL OUTCOME EVALUATION: Goal: Fall Prevention-Safe Patient Handling Outcome: Ongoing (Interventions Implemented as Appropriate) 05/11/16 1200 05/11/16 1446 Musculoskeletal Interventions Muscle Strengthening -- activity/mobility promoted;mobility in bed promoted Newberry Fall Risk History of Falling 0 -- Secondary Diagnosis 15 -- Ambulatory Aids 0 -- Intravenous Therapy/Heparin/Saline Lock 20 -- Gait/Transferring 0 -- Mental Status 0 -- Score 35 -- OTHER Newberry Fall Risk Med -- Restraint Interventions Safety Promotion/Fall Prevention activity supervised;fall prevention program maintained;muscle strengthening facilitated;nonskid shoes/slippers when out of bed;safety round/check completed -- Positioning Body Position independent -- Goal: Infection Control Outcome: Ongoing (Interventions Implemented as Appropriate) 05/11/16 1200 Safety Interventions Isolation Precautions standard precautions maintained Infection Prevention rest/sleep promoted Coping Strategies Supportive Measures active listening utilized;relaxation techniques promoted;self-care encouraged;verbalization of feelings encouraged Goal: Discharge Needs Assessment Outcome: Ongoing (Interventions Implemented as Appropriate) 05/09/16 0407 Discharge Needs Assessment Concerns To Be Addressed no discharge needs identified Readmission Within The Last 30 Days no previous admission in last 30 days Equipment Needed After Discharge none Discharge Disposition home or self-care Current Health Anticipated Changes Related to Illness none Activity/Self Care Review of Systems Equipment Currently Used at Home none Living Environment Transportation Available car;family or friend will provide Goal: Interdisciplinary Rounds/Family Conf Outcome: Ongoing (Interventions Implemented as Appropriate) 05/11/16 1446 Interdisciplinary Rounds/Family Conf Participants patient;nursing * Plan of Care - Delaney Morse RN - 05/11/2016 8:05 AM EST Problem: Patient Care Overview Goal: Plan of Care Review Outcome: Ongoing (Interventions Implemented as Appropriate) 05/09/16 0407 05/10/166 Plan of Care Review Progress progress towards functional goals is fair -- Coping/Psychosocial Plan Of Care Reviewed With -- patient OUTCOME EVALUATION NOTE: OUTCOME SUMMARY: Vital signs for past 24 H Temp: [36.7 ??C (98.1 ??F)-37.6 ??C (99.7 ??F)] Heart Rate: [68-78] Resp: [16-20] BP: (116-144)/(46-65) SpO2: [89 %-98 %] Heart Rate from SPO2: [71 bpm-76 bpm] A&O x4, strengths 5/5 for all, PERRL, VSS, pain managed moderately effectively per pt report with oxycodone and Toradol. Systems WNL. Patient is talkative and frequently c/o severe pain and requests medications. Patient mobilizing well OOB to BR. Patient sleeping between care. PLAN MOVING FORWARD: Continue to monitor patient progress with treatment. INDIVIDUALIZED FALL PREVENTION INTERVENTIONS : Pt at RISK OF FALLS. Patient-specific fall risk factors per assessment: [current deficits]: Mobility : standby assist Diagnosis: lap paraesophageal hernia repair Restrictions: clear liquid diet to be full liquid today. Problems: arthritis, GERD Assistance [level of assistance required for transfers and ambulation]: SBA Supervision [direct monitoring required during toileting and ADLs]: Monitoring during toileting andADLs eyes on Surveillance [continuous indirect monitoring]: Bed locked in low position, call mills within reach, Hourly rounding by RN/BROKER ASSISTANT. Close to nurse's station. Bed alarm / Chair alarm. Patient-specific fall prevention interventions for sensory deficits provided, if applicable: [X] Yes CPG GOAL OUTCOME EVALUATION: * Consult Note - Sabra Ash MD - 05/10/2016 1:03 PM EST Images from the original note were not included. Diabetes Management Team Inpatient Consult Date of Consultation: 05/10/2016 Consult Requested by: Surgery Reason for Consultation: Roxann Baxter is a 60 y.o. female with PMH significant for type 1 DM and hypothyroidism who was admitted on 05/08/2016 currently POD 2 s/p laparoscopic Toupet fundoplication and paraesophageal hernia repair. We are being consulted to assist with diabetes management and to provide a review of [facility] diabetes care. Diabetes History: Roxann Baxter has had diabetes since 1973, she was 16 years old. Has history of DKA in the past Current outpatient diabetes regimen: Medications: Mini med insulin pump Total daily basal: 19.375 units 0000 0.700 units/hour 0400 0.800 units/hour 0930 0.825 units/hour 1530 0.850 units/hour 1900 0.850 units/hour I:C of 1u:12grams of cars CF: 25 Monitoring is done 4-5 times a day Most recent HA1c was done on 02/13/16 and was 9.4%, suggesting an average glucose of 223 mg/dL for the past 6-8 weeks. Trouble with hypoglycemia She states that in the mornings, she has been waking up with low BG around low 50s otherwise during the day time, she is fine. Diabetes Complications Status: Eyes: retinopathy Kidneys: None Feet: None Sensory: None Autonomic: Gastroparesis Cardiac: None Current Hospital Diabetes Care: Medications: Humalog sliding scale q 4 hrs Monitoring: q 4 hrs Diet: [place] full liquid diet ROS: Constitutional: No recent weight change Endocrine: No increased thirst or urination Eyes: No recent vision change ENT: No dysphagia, dental issues Cardiovascular: No chest pain Respiratory: No wheezing , shortness of breath GI: +reflux : No frequent urinary tract infections Neurological: No weakness or numbness PMH Past Medical History Diagnosis Date ??? Anxiety ??? Arthritis ??? Asthma ??? Cortical cataract 05/05/2011 ??? Diabetes mellitus ??? GERD (gastroesophageal reflux disease) ??? Hyperlipidemia ??? Hypertension ??? PDR (proliferative diabetic retinopathy) 05/25/2011 ??? Skin disease ??? Thyroid disease Current Hospital Medications: ??? insulin lispro 2-8 Units Subcutaneous TID AC ??? ketorolac 15 mg Intravenous Q6H NAYANA ??? magnesium oxide 400 mg Oral BID ??? nystatin 500,000 Units Oral 4 Times Daily ??? gabapentin 300 mg Oral TID ??? lisinopril 20 mg Oral Daily ??? melatonin 9 mg Oral Nightly ??? levothyroxine 175 mcg Oral Daily ??? sodium chloride 0.9 % 5 mL Intravenous BID ??? heparin (porcine) 5,000 Units Subcutaneous Q8H NAYANA Allergy: Allergies Allergen Reactions ??? Codeine Phosphate Nausea Only ??? Propoxyphene N-Acetaminophen Nausea Only Social history: Social History Substance Use Topics ??? Smoking status: Former Smoker Types: Cigarettes Quit date: 05/06/1984 ??? Smokeless tobacco: Never Used ??? Alcohol use No Comment: once a year Family history: Family History Problem Relation Age of Onset [...] Amblyopia Neg Hx ??? Strabismus Neg Hx Vitals Last value Range last 24 hrs Temperature Temp: 36.7 ??C (98.1 ??F) Temp: [36.7 ??C (98.1 ??F)-37.3 ??C (99.1 ??F)] Heart Rate Heart Rate: 78 Heart Rate: [61-78] Blood Pressure BP: 123/49 BP: (98-123)/(45-51) Respiratory Rate Resp: 18 Resp: [16-20] SpO2 SpO2: 98 % SpO2: [90 %-98 %] Physical Exam: Gen: Pleasant, female, NAD, lying comfortably in bed HEENT- PERRLA, EOMi b/l Neck- supple, no goiter, no lymphadenopathy Lungs - CTAB Heart - +s1, s2 Extremities - no c/c/e b/l LE Neuro- AAOX4, sensation intact FSBG: Assessment: Patient is a 60 y.o. female with PMH significant for DM-1 (Last A1C of 9.4%) who was admitted on 05/08/2016 for POD 2 s/p laparoscopic Toupet fundoplication and paraesophageal hernia repair. Diabetes suboptimally controlled and complicated by recent surgery and current hospitalization. Currently withvariability of blood glucose levels while hospitalized requiring adjustment of insulin regimen and DM medications. Patients with type 1 diabetes should always have a basal insulin on board (a true basal insulin regimen would NOT change dependent on whether or not patient is NPO). She was left without a basal insulin which lead her to receive correctional insulin almost 4 hours, totaling 24 units yesterday. At home, she is on insulin pump with mini med with settings as outlined in HPI. She is too tired to handle her pump today and so we will place her on a basal/bolus regimen as per her pump settings. I haveonly ordered a one time Lantus dose as I do not want her to receive her next Lantus dose until we have evaluated her in the morning tomorrow as we may be able to switch her to insulin pump therapy mid- afternoon time. Plan: 1. Lantus 20 units now - please note that this was ordered around 11:30 am -but primary team for some reason had discontinued all my orders and now I have reordered this -->scheduled to be given at 1:45pm. 2. Novolog custom sliding scale for BG>140 with CF 15 3. Meal-associated Novolog 0-7 units tid ac (or 1unit: 12 gm carb ratio for each meal) I have taken the liberty of placing these above orders twice now, if it becomes discontinued again, I will leave it up to primary team's discretion on reordering as these are our recommendations. 4. Spoke to Dr. Plascencia regarding above recommendations. [facility] diabetes care: Medications - Outpatient treatment regimen recommendations pending based on the hospital course. Monitoring - continue BG tid ac & hs Diet - low fat/low carb diet Exercise - weight-bearing exercise 30 min/day, as tolerated I have discussed this case with the attending physician, Dr. Pimentel, who was fully involved in the formulation of the plan mentioned above. Thank you for allowing us to provide care for your patient Sabra Ash MD Endocrinology Fellow, PGY-4 05/10/2016 Associated attestation - Archie Pimentel MD - 05/10/2016 5:50 PM EST I saw this patient with Dr. Ash. I reviewed the metcalf portions of the history and physical exam, and reviewed pertinent lab data. I answered all patient questions. I was involved in all medical decision making and agree with this plan. ARCHIE PIMENTEL MD Customer Account Administratorcork slabs sawyer Section of Endocrinology [facility] [place] * Plan of Care - Delaney Morse RN - 05/10/2016 7:49 AM EST Problem: Patient Care Overview Goal: Plan of Care Review Outcome: Ongoing (Interventions Implemented as Appropriate) 05/09/16 0407 05/09/162044 Plan of Care Review Progress progress towards functional goals is fair -- Coping/Psychosocial Plan Of Care Reviewed With -- patient OUTCOME EVALUATION NOTE: OUTCOME SUMMARY: Vital signs for past 24 H Temp: [36.7 ??C (98.1 ??F)-37.7 ??C (99.9 ??F)] Heart Rate: [61-79] Resp: [16-20] BP: (91-130)/(45-51) SpO2: [90 %-98 %] Heart Rate from SPO2: -- A&O x4, strengths 5/5 for all, PERRL, VSS, pain managed well with scheduled toradol and prn oxycodone. Patient sleeping lightly between care during night. Systems WNL. Patient needs encouragementto get OOB. PLAN MOVING FORWARD: Continue to monitor patient progress with treatment. Monitor patient response to pain management. INDIVIDUALIZED FALL PREVENTION INTERVENTIONS : Pt at RISK OF FALLS. Patient-specific fall risk factors per assessment: [current deficits]: Mobility : one assist, Diagnosis: lap paraesophageal hernia repair Restrictions: clear liquid diet to be full liquid today. Problems: arthritis, GERD Assistance [level of assistance required for transfers and ambulation]: 1 assist, Supervision [direct monitoring required during toileting and ADLs]: Monitoring during toileting andADLs arms reach Surveillance [continuous indirect monitoring]: Bed locked in low position, call mills within reach, Hourly rounding by RN/BROKER ASSISTANT. Close to nurse's station. Bed alarm / Chair alarm. Patient-specific fall prevention interventions for sensory deficits provided, if applicable: [X] Yes CPG GOAL OUTCOME EVALUATION: * Plan of Care - Delaney Morse RN - 05/10/2016 7:40 AM EST Problem: Patient Care Overview Goal: Interdisciplinary Rounds/Family Conf 05/10/16 0739 Interdisciplinary Rounds/Family Conf Participants nursing;patient;physician * Initial Assessments - Rosa Arreaga RN - 05/09/2016 9:09 AM EST Office of Care Management Initial Assessment Rosa Arreaga RN reviewed record and discussed patient with Care Team. Source of Information: Patient Introduced self/reviewed role; services accepted. Reason for Hospitalization: Postoperative diagnosis: PARAESOPHAGEAL HERNIA ?? Procedure(s): LAPAROSCOPIC PARAESOPHAGEAL HERNIA REPAIR W/FUNDOPLASTY, W/O MESH (WRVU 26.6) MODIFIER, HIATAL HERNIA ?? Past Medical History Diagnosis Date ??? Anxiety ??? Arthritis ??? Asthma ??? Cortical cataract 05/05/2011 ??? Diabetes mellitus ??? GERD (gastroesophageal reflux disease) ??? Hyperlipidemia ??? Hypertension ??? PDR (proliferative diabetic retinopathy) 05/25/2011 ??? Skin disease ??? Thyroid disease Hospitalizations Within the Past 30 Days: No Anticipated Length Of Stay (If known): 2 days Current Decision-Making Capacity: A/O X4 Advance Care Planning: None on file in [facility] Current Coping/Education/Information Needs: Doing well and questions being answered. Does not want to fill out at this time. Current Functional Ability: standby assist Functional Status Prior to Admission: Independent Home Environment: House Social & Family Supports/Community Resources: Lives with and brother Behavioral Health History: Yes- hospitalized here for pysch in February Substance Use/Abuse: rarely, non-smoker no illicit drugs Other Pertinent/Service Specific Information: No Health/Prescription Coverage: Primary Insurance: Medicare Secondary Insurance: no Prescription Coverage: Express scripts [facility] Other: Primary Care Provider: aNyla Miramontes MD [phone] Patient/Caregiver Goals of Treatment: Unsure Potential Needs for Transition of Care: Rehab/SNF: No Home Health: No DME: No Dialysis: No Community Resources: No Transportation: to transport Other: Anticipated Barriers to Discharge/Special Considerations: No Plan: DC home when medically ready for discharge. A member of the Care Management team will continue to monitor progress, follow for continuity of care and assist with transition of care planning. Rosa Arreaga RN, BSN, [facility] [employer] Project Manager [facility] pager#[phone] * Plan of Care - Wilian Zafar RN - 05/09/2016 4:16 AM EST Problem: Skin Integrity Impairment, Risk/Actual (Adult) Goal: Identify Related Risk Factors and Signs and Symptoms Related risk factors and signs and symptoms are identified upon initiation of Human Response Clinical Practice Guideline (CPG) Outcome: Ongoing (Interventions Implemented as Appropriate) 05/09/16406 Skin Integrity Impairment, Risk/Actual Skin Integrity Impairment, Risk/Actual: Related Risk Factors surgery/procedure OUTCOME EVALUATION NOTE: OUTCOME SUMMARY: Patient somewhat sleepy at start of shift but was easy to arouse. Patient stated pain well controlled with FACILITY MANAGER. Patient was able to ambulate later from bed to bathroom with one assist and minimal concerns. Blood sugar levels also improved from previous shift and continue q2hr coverage. Patient surgical sites are CDI and otherwise benign. Patient is otherwise stable and VS within acceptable limits. PLAN MOVING FORWARD: Continue to monitor patient post operatively, treat pain with FACILITY MANAGER and prn meds, discharge home whenmedically cleared. INDIVIDUALIZED FALL PREVENTION INTERVENTIONS: Patient-specific fall risk factors per assessment: [current deficits]: Weakness, medical devices. Assistance [level of assistance required for transfers and ambulation]: Patient is one assist out of bed. Supervision [direct monitoring required during toileting and ADLs]: Patient may be left unsupervised for ADLs. Surveillance [continuous indirect monitoring]: Purposeful rounding and continuous pulse oximetry (Maismo). Patient-specific fall prevention interventions for sensory deficits provided, if applicable: [X] N/A CPG GOAL OUTCOME EVALUATION: Goal: Skin Integrity/Wound Healing Patient will demonstrate the desired outcomes by discharge/transition of care. Outcome: Ongoing (Interventions Implemented as Appropriate) 05/09/16406 Skin Integrity Impairment, Risk/Actual (Adult) Skin Integrity/Wound Healing making progress toward outcome Problem: Patient Care Overview Goal: Plan of Care Review Outcome: Ongoing (Interventions Implemented as Appropriate) 05/08/16 1843 02/03/17 0407 Plan of Care Review Progress -- progress towards functional goals is fair Coping/Psychosocial Plan Of Care Reviewed With patient -- Goal: Fall Prevention-Safe Patient Handling Outcome: Ongoing (Interventions Implemented as Appropriate) 05/08/16 1843 05/09/16 0300 [place] Fall Risk History of Falling 0 -- Secondary Diagnosis 15 -- Ambulatory Aids 0 -- Intravenous Therapy/Heparin/Saline Lock 20 -- Gait/Transferring 0 -- Mental Status 0 -- Score 35 -- OTHER [place] Fall Risk Med -- Restraint Interventions Safety Promotion/Fall Prevention activity supervised;safety round/check completed;nonskid shoes/slippers when out of bed;fall prevention program maintained;toileting scheduled -- Positioning Body Position -- independent Goal: Infection Control Outcome: Ongoing (Interventions Implemented as Appropriate) 05/08/16 184 Safety Interventions Isolation Precautions standard precautions maintained Infection Prevention rest/sleep promoted Coping Strategies Supportive Measures active listening utilized;problem solving facilitated Goal: Discharge Needs Assessment Outcome: Ongoing (Interventions Implemented as Appropriate) 05/09/16 040 Discharge Needs Assessment Concerns To Be Addressed no discharge needs identified Readmission Within The Last 30 Days no previous admission in last 30 days Equipment Needed After Discharge none Discharge Disposition home or self-care Current Health Anticipated Changes Related to Illness none Activity/Self Care Review of Systems Equipment Currently Used at Home none Living Environment Transportation Available car;family or friend will provide Goal: Interdisciplinary Rounds/Family Conf 05/09/16406 Interdisciplinary Rounds/Family Conf Participants patient;nursing * Op Note - Sonja Perez MD - 05/08/2016 1:32 PM EST [facility] Operative Note Patient Name: Roxann Baxter : [id number] MR#: [id number] Case Date: 05/08/2016 Surgeon: Surgeon(s) and Role: * Sonja Perez MD - Primary * Minerva Plascencia MD No qualified resident available to assist Preoperative diagnosis: PARAESOPHAGEAL HERNIA Postoperative diagnosis: PARAESOPHAGEAL HERNIA Procedure(s): LAPAROSCOPIC PARAESOPHAGEAL HERNIA REPAIR W/FUNDOPLASTY, W/O MESH (WRVU 26.6) MODIFIER, HIATAL HERNIA Anesthesia: General Estimated Blood Loss: 4 ml Specimens removed during surgery: None Drains: Surgical Closure: Primary Closure - closure of ALL tissue levels during the original surgery regardless of wires, wickes, drains, or other devices extruding through the incision Disposition: awakened from anesthesia, extubated and taken to the recovery room in a stable condition, having suffered no apparent untoward event. Condition: doing well without problems (Please see the Surgical Encounter Summary for any Implant and Specimen details pertinent to this patient.) Indications: This 60 y.o. female presented with a history of gastroesophageal reflux symptoms and investigations revealed a large paraesophageal hernia. We discussed in the office the risks and benefits of surgical repair and also the small, but significant risk of gastric volvulus, etc., with a paraesophageal hernia. The patient agreed to have this done laparoscopically with informed consent. Procedure: Under general anesthesia and endotracheal intubation, the patient was prepped and drapedin the supine position with the legs abducted. After team time out, the abdomen was entered with anOptiview trocar approximately 15.0-cm below the xiphoid to the left of midline. The abdominal cavity was insufflated with CO2 to a pressure of 15 mmHg. A 45-degree telescope was inserted and under direct vision 2 5.0-mm ports were placed in the left upper quadrant and 2 in the right upper quadrant at 10.0-cm along the costal margin, at 15.0-cm along the right costal margin, and 25.0-cm along the left costal margin. Approximately one-third of the stomach was in the chest, which was reduced with gentle traction. The dissection was started along the left vin and the sac was from the crural edge and inverted. Sharp and blunt dissection was used to completely invert the sac and eventually the posterior aspect of the esophagus was identified and encircled with a [place] drain. This was used for furthertraction in the entire crura and the paraesophageal area was freed of any adhesions in the sac. Thesac was removed using the harmonic scalpel. The short gastric vessels were then divided along the greater curve starting at a point approximately 10.0-cm along the greater curve and working upwards. Several posterior branches were also taken down. The defect was then closed with multiple interrupted pledgetted 0 Surgilon sutures placed behind the esophagus. A 60 [place] bougie was placed and the mobilized fundus was brought around the esophagus posteriorly. A 2.0-cm loose, floppy 280 degree fundoplication was created using interrupted 2-0 Surgilon sutures on the esophagus and fundus. Full-thickness bites of the fundus on both sides of the esophagus were taken, as well as partial- thickness bites of the esophageal wall anteriorly. Care was taken not to entrap the vagus nerve. The 60 [place] bougie was then removed and the [place] removed. All areas were copiously irrigated with saline to ensure adequate hemostasis. The ports were then removed under direct vision and skin sites were all closed with running subcuticular 4-0 suture followed by Steri-Strips and Band-Aids. The patient returned to the recovery room in stable condition. Sponge and instrument counts were correct. Specimen sent to pathology: Attestation: Case Date: 05/08/2016 I performed this procedure without the involvement of a resident. SONJA PEREZ MD 05/08/2016 documented in this encounter Plan of Treatment Upcoming Encounters Date Type Department Care Team (Late st Contact Info) Description 05/17/2024 2:30 PM EST Office [place] [address] Alcides Bonilla MD [facility] [place] [address] 04/06/2049 9:00 AM EST Hospital [place] [address] Harry Guerrero MD [facility] [address] [facility]STR[facility] [address] documented as of this encounter Procedures Procedure Name Priority Date/Time Associated Diagnosis Comments OPERATIONS SUPPORT COORDINATOR SCAN 05/17/2016 12:00 AM EST POCT GLUCOSE Routine 05/16/2016 11:20 AM EST POCT GLUCOSE Routine 05/16/2016 7:12 AM EST POCT GLUCOSE Routine 05/16/2016 3:52 AM EST POCT GLUCOSE Routine 05/16/2016 12:05 AM EST POCT GLUCOSE Routine 05/15/2016 7:33 PM EST POCT GLUCOSE Routine 05/15/2016 4:25 PM EST POCT GLUCOSE Routine 05/15/2016 11:27 AM EST POCT GLUCOSE Routine 05/15/2016 8:15 AM EST POCT GLUCOSE Routine 05/15/2016 7:31 AM EST HEMOGRAM Routine 05/15/2016 5:20 AM EST PHOSPHORUS Routine 05/15/2016 5:20 AM EST MAGNESIUM Routine 05/15/2016 5:20 AM EST BASIC METABOLIC PANEL Routine 05/15/2016 5:20 AM EST POCT GLUCOSE Routine 05/15/2016 3:31 AM EST POCT GLUCOSE Routine 05/15/2016 12:28 AM EST POCT GLUCOSE Routine 05/15/2016 12:00 AM EST POCT GLUCOSE Routine 05/14/2016 11:37 PM EST POCT GLUCOSE Routine 05/14/2016 7:02 PM EST POCT GLUCOSE Routine 05/14/2016 3:55 PM EST POCT GLUCOSE Routine 05/14/2016 1:49 PM EST POCT GLUCOSE Routine 05/14/2016 11:29 AM EST POCT GLUCOSE Routine 05/14/2016 7:15 AM EST HEMOGRAM Routine 05/14/2016 5:30 AM EST PHOSPHORUS Routine 05/14/2016 5:30 AM EST MAGNESIUM Routine 05/14/2016 5:30 AM EST BASIC METABOLIC PANEL Routine 05/14/2016 5:30 AM EST POCT GLUCOSE Routine 05/14/2016 3:42 AM EST POCT GLUCOSE Routine 05/14/2016 2:09 AM EST POCT GLUCOSE Routine 05/14/2016 12:11 AM EST POCT GLUCOSE Routine 05/13/2016 7:03 PM EST POCT GLUCOSE Routine 05/13/2016 4:01 PM EST XR FLUORO BARIUM SWALLOW (SINGLE CONTRAST) Routine 05/13/2016 2:08 PM EST POCT GLUCOSE Routine 05/13/2016 11:16 AM EST POCT GLUCOSE Routine 05/13/2016 7:17 AM EST HEMOGRAM Routine 05/13/2016 5:22 AM EST PHOSPHORUS Routine 05/13/2016 5:22 AM EST MAGNESIUM Routine 05/13/2016 5:22 AM EST BASIC METABOLIC PANEL Routine 05/13/2016 5:22 AM EST POCT GLUCOSE Routine 05/13/2016 4:08 AM EST POCT GLUCOSE Routine 05/13/2016 1:12 AM EST POCT GLUCOSE Routine 05/12/2016 11:52 PM EST POCT GLUCOSE Routine 05/12/2016 11:12 PM EST POCT GLUCOSE Routine 05/12/2016 7:13 PM EST POCT GLUCOSE Routine 05/12/2016 3:37 PM EST POCT GLUCOSE Routine 05/12/2016 11:27 AM EST POCT GLUCOSE Routine 05/12/2016 7:27 AM EST POCT GLUCOSE Routine 05/12/2016 6:53 AM EST POCT GLUCOSE Routine 05/12/2016 6:25 AM EST HEMOGRAM Routine 05/12/2016 5:08 AM EST PHOSPHORUS Routine 05/12/2016 5:08 AM EST MAGNESIUM Routine 05/12/2016 5:08 AM EST BASIC METABOLIC PANEL Routine 05/12/2016 5:08 AM EST POCT GLUCOSE Routine 05/12/2016 3:47 AM EST POCT GLUCOSE Routine 05/11/2016 11:45 PM EST POCT GLUCOSE Routine 05/11/2016 7:01 PM EST POCT GLUCOSE Routine 05/11/2016 3:41 PM EST POCT GLUCOSE Routine 05/11/2016 1:53 PM EST POCT GLUCOSE Routine 05/11/2016 11:42 AM EST POCT GLUCOSE Routine 05/11/2016 7:58 AM EST HEMOGRAM Routine 05/11/2016 5:54 AM EST PHOSPHORUS Routine 05/11/2016 5:54 AM EST MAGNESIUM Routine 05/11/2016 5:54 AM EST BASIC METABOLIC PANEL Routine 05/11/2016 5:54 AM EST POCT GLUCOSE Routine 05/11/2016 3:49 AM EST POCT GLUCOSE Routine 05/10/2016 11:58 PM EST POCT GLUCOSE Routine 05/10/2016 7:58 PM EST POCT GLUCOSE Routine 05/10/2016 6:07 PM EST POCT GLUCOSE Routine 05/10/2016 4:28 PM EST POCT GLUCOSE Routine 05/10/2016 11:45 AM EST HEMOGRAM STAT 05/10/2016 11:22 AM EST PHOSPHORUS STAT 05/10/2016 11:22 AM EST MAGNESIUM STAT 05/10/2016 11:22 AM EST BASIC METABOLIC PANEL STAT 05/10/2016 11:22 AM EST POCT GLUCOSE Routine 05/10/2016 9:53 AM EST POCT GLUCOSE Routine 05/10/2016 7:39 AM EST POCT GLUCOSE Routine 05/10/2016 6:02 AM EST POCT GLUCOSE Routine 05/10/2016 4:07 AM EST POCT GLUCOSE Routine 05/10/2016 2:13 AM EST POCT GLUCOSE Routine 05/10/2016 12:09 AM EST POCT GLUCOSE Routine 05/09/2016 10:13 PM EST POCT GLUCOSE Routine 05/09/2016 7:59 PM EST POCT GLUCOSE Routine 05/09/2016 5:10 PM EST POCT GLUCOSE Routine 05/09/2016 4:29 PM EST POCT GLUCOSE Routine 05/09/2016 2:16 PM EST POCT GLUCOSE Routine 05/09/2016 11:20 AM EST POCT GLUCOSE Routine 05/09/2016 8:07 AM EST POCT GLUCOSE Routine 05/09/2016 6:05 AM EST SCAN, PERIPHERAL BLOOD Routine 7 5:34 AM EST HEMOGRAM Routine 05/09/2016 5:34 AM EST PHOSPHORUS Routine 05/09/2016 5:34 AM EST MAGNESIUM Routine 05/09/2016 5:34 AM EST BASIC METABOLIC PANEL Routine 05/09/2016 5:34 AM EST POCT GLUCOSE Routine 05/09/2016 4:28 AM EST POCT GLUCOSE Routine 05/09/2016 2:09 AM EST POCT GLUCOSE Routine 05/09/2016 12:12 AM EST POCT GLUCOSE Routine 05/08/2016 10:07 PM EST POCT GLUCOSE Routine 05/08/2016 8:16 PM EST POCT GLUCOSE Routine 05/08/2016 6:55 PM EST POCT GLUCOSE Routine 05/08/2016 4:30 PM EST POCT GLUCOSE Routine 05/08/2016 1:42 PM EST POCT GLUCOSE Routine 05/08/2016 11:46 AM EST MODIFIER, HIATAL HERNIA 05/08/19 10:48 AM EST PARAESOPHAGEAL HERNIA LAPAROSCOPIC PARAESOPHAGEAL HERNIA REPAIR W/FUNDOPLASTY, W/O MESH (WRVU 26.6) 05/08/2016 10:48 AM EST PARAESOPHAGEAL HERNIA documented in this encounter Results * SCAN DOC: OPERATIONS SUPPORT COORDINATOR (05/17/2016 12:00 AM EST) Anatomical Region Laterality Modality Other Scanning Provider MEDIA MGR SCAN EXT O RDR/RSLT * POCT Glucose (05/16/2016 11:20 AM EST) Glucose, POC 183 65 - 199 mg/dL [facility] Comment: Supplemental ranges: <140 mg/dL before meals <180 mg/dL all other times of the day Blood specimen (specimen) 05/16/2016 11:20 AM EST 05/16/2016 11:20 AM EST Sonja Perez MD POINT OF CARE TEST O RDERARADHA Performing Organization Address City/[facility]/ZIP Co de Phone Number [facility] [place] [address] * POCT Glucose (05/16/2016 7:12 AM EST) Glucose, POC 92 65 - 199 mg/dL [facility] Comment: Supplemental ranges: <140 mg/dL before meals <180 mg/dL all other times of the day Blood specimen (specimen) 05/16/2016 7:12 AM EST 05/16/2016 7:12 AM EST Sonja Perez MD POINT OF CARE TEST O RDERARADHA Performing Organization Address City/[facility]/ZIP Co de Phone Number [facility] [place] [address] * POCT Glucose (05/16/2016 3:52 AM EST) Glucose, POC 98 65 - 199 mg/dL [facility] Comment: Supplemental ranges: <140 mg/dL before meals <180 mg/dL all other times of the day Blood specimen (specimen) 05/16/2016 3:52 AM EST 05/16/2016 3:52 AM EST Sonja Perez MD POINT OF CARE TEST O JESSICA Performing Organization Address [facility] Co de Phone Number [facility] [place] [address] * POCT Glucose (05/16/2016 12:05 AM EST) Glucose, POC 140 65 - 199 mg/dL [facility] Comment: Supplemental ranges: <140 mg/dL before meals <180 mg/dL all other times of the day Blood specimen (specimen) 05/16/2016 12:05 AM EST 05/16/2016 12:05 AM EST Sonja Perez MD POINT OF CARE TEST Renetta LOPEZ Performing Organization Address [facility] Co de Phone Number [facility] [place] [address] * POCT Glucose (05/15/2016 7:33 PM EST) Glucose, POC 182 65 - 199 mg/dL [facility] Comment: Supplemental ranges: <140 mg/dL before meals <180 mg/dL all other times of the day Blood specimen (specimen) 05/15/2016 7:33 PM EST 05/15/2016 7:33 PM EST Sonja Perez MD POINT OF CARE TEST Renetta LOPEZ Performing Organization Address [facility] Co de Phone Number [facility] [place] [address] * (ABNORMAL) POCT Glucose (05/15/2016 4:25 PM EST) Glucose, POC 239(H) 65 - 199 mg/dL [facility] Comment: Supplemental ranges: <140 mg/dL before meals <180 mg/dL all other times of the day Blood specimen (specimen) 05/15/2016 4:25 PM EST 05/15/2016 4:25 PM EST Sonja Perez MD POINT OF CARE TEST O JESSICA Performing Organization Address [facility] Co de Phone Number [facility] [place] [address] * POCT Glucose (05/15/2016 11:27 AM EST) Glucose, POC 198 65 - 199 mg/dL [facility] Comment: Supplemental ranges: <140 mg/dL before meals <180 mg/dL all other times of the day Blood specimen (specimen) 05/15/2016 11:27 AM EST 05/15/2016 11:27 AM EST Sonja Perez MD POINT OF CARE TEST O JESSICA Performing Organization Address [facility] Co de Phone Number [facility] [place] [address] * POCT Glucose (05/15/2016 8:15 AM EST) Glucose, POC 88 65 - 199 mg/dL [facility] Comment: Supplemental ranges: <140 mg/dL before meals <180 mg/dL all other times of the day Blood specimen (specimen) 05/15/2016 8:15 AM EST 05/15/2016 8:15 AM EST Sonja Perez MD POINT OF CARE TEST O JESSICA Performing Organization Address [facility] Co de Phone Number [facility] [place] [address] * (ABNORMAL) POCT Glucose (05/15/2016 7:31 AM EST) Glucose, POC 63(L) 65 - 199 mg/dL [facility] Comment: Supplemental ranges: <140 mg/dL before meals <180 mg/dL all other times of the day Blood specimen (specimen) 05/15/2016 7:31 AM EST 05/15/2016 7:31 AM EST Sonja Perez MD POINT OF CARE TEST O RDERABLES Performing Organization Address [facility] Phone Number [facility] [place] [address] * Phosphorus (05/15/2016 5:20 AM EST) Phosphorus 3.5 2.5 - 4.5 mg/dL [facility] Blood specimen (specimen) 05/15/2016 5:20 AM EST 05/15/2016 5:28 AM EST Narrative Resulting Agency Comment Spec In Lab Minerva Plascencia MD CHEMISTRY ORDERABL ES Performing Organization Address [facility] Phone Number [facility] [place] [address] * Magnesium (05/15/2016 5:20 AM EST) Magnesium 0.87 0.69 - 1.07 mmol/L [facility] Blood specimen (specimen) 05/15/2016 5:20 AM EST 05/15/2016 5:28 AM EST Narrative Resulting Agency Comment Spec In Lab Minerva Plascencia MD CHEMISTRY ORDERABL ES Performing Organization Address [facility] Phone Number [facility] [place] [address] * (ABNORMAL) Basic Metabolic Panel (non-fasting) (05/15/2016 5:20 AM EST) Glucose 82 65 - 199 mg/dL [facility] Comment:Diabetes: >=200 mg/d L plus symptoms Blood Urea Nitrogen 9 8 - 18 mg/dL [facility] Creatinine 0.79 0.70 - 1.20 mg/dL [facility] Comment: Please note that the pediatric reference intervals supplied above were not validated at [facility]. Results from pediatric patients should be interpreted in conjunction to the patient's age, height and muscle mass. Sodium 142 135 - 145 mmol/L [facility] Potassium 4.2 3.5 - 5.0 mmol/L [facility] Comment: Please note: ??Patients with WBC >100,000 may have falsely elevated Potassium levels. ??For accurate Potassium quantification in these patients send serum separator tube (gold top) for subsequent determinations. ??Contact the Clinical Chemistry Laboratory if there are any questions. Chloride 102 98 - 107 mmol/L [facility] Carbon Dioxide 32(H) 22 - 31 mmol/L [facility] Anion Gap 8 5 - 15 mmol/L [facility] Calcium 8.6 8.5 - 10.5 mg/dL [facility] Est Glomerular Filtration Rate >60 >=60 [facility] Comment: This estimated GFR (eGFR) value was calculated using the MDRD equation which has been validated on patients between the ages of 18 and 70. The MDRD should not be used to assess kidney function in patients < 18 years of age or in patients with extremes of body mass, or in patients with acute kidney failure. This value should be multiplied by 1.2 for patients. For further information please copy and paste the following links into your internet browser. [email or web address] Blood specimen (specimen) 05/15/2016 5:20 AM EST 05/15/2016 5:28 AM EST Narrative Resulting Agency Comment Spec In Lab Minerva Plascencia MD CHEMISTRY ORDERABL ES [facility] [place] [address] * (ABNORMAL) Hemogram (05/15/2016 5:20 AM EST) White Blood Cell 4.6 4.0 - 9.5 x10(3)/mc L [facility] Red Blood Cell 3.85(L) 4.00 - 5.21 x10(6)/mc L [facility] Hemoglobin 8.9(L) 11.7 - 15.5 gm/dL [facility] LABORATORY Hematocrit 29.0(L) 35.7 - 45.8 % [facility] Mean Cell Volume 75.3(L) 82.6 - 94.4 fL [facility] Mean Cell Hemoglobin 23.1(L) 27.1 - 32.0 pg [facility] Mean Cell Hemoglobin Concentration 30.7(L) 31.7 - 35.0 gm/dL [facility] Platelet 354 145 - 357 x10(3)/mc L [facility] RDW Standard Deviation 46.9(H) 37.0 - 46.0 [facility] LABORATORY RDW coefficient of variation 17.4(H) 11.5 - 14.1 % [facility] Mean Platelet Volume 9.5 7.6 - 12.9 [facility] LABORATORY NRBC% auto 0.0 % [facility] NRBC Absolute 0.000 0.000 - 0.000 x10(3)/mc L [facility] Blood specimen (specimen) 05/15/2016 5:20 AM EST 05/15/2016 5:28 AM EST Narrative Resulting Agency Comment Spec In Lab Minerva Plascencia MD HEMATOLOGY ORDERAB LES [facility] [place] [address] * POCT Glucose (05/15/2016 3:31 AM EST) Glucose, POC 86 65 - 199 mg/dL [facility] Comment: Supplemental ranges: <140 mg/dL before meals <180 mg/dL all other times of the day Blood specimen (specimen) 05/15/2016 3:31 AM EST 05/15/2016 3:31 AM EST Sonja Perez MD POINT OF CARE TEST O JESSICA Performing Organization Address [facility] Co de Phone Number [facility] [place] [address] * POCT Glucose (05/15/2016 12:28 AM EST) Glucose, POC 79 65 - 199 mg/dL [facility] Comment: Supplemental ranges: <140 mg/dL before meals <180 mg/dL all other times of the day Blood specimen (specimen) 05/15/2016 12:28 AM EST 05/15/2016 12:28 AM EST Sonja Perez MD POINT OF CARE TEST O JESSICA Performing Organization Address [facility] Co de Phone Number [facility] [place] [address] * POCT Glucose (05/15/2016 12:00 AM EST) Glucose, POC 65 65 - 199 mg/dL [facility] Comment: Supplemental ranges: <140 mg/dL before meals <180 mg/dL all other times of the day Blood specimen (specimen) 05/15/2016 05/15/2016 12:00 AM EST Sonja Perez MD POINT OF CARE TEST Renetta LOPEZ Performing Organization Address [facility] Co de Phone Number [facility] [place] [address] * POCT Glucose (05/14/2016 11:37 PM EST) Glucose, POC 68 65 - 199 mg/dL [facility] Comment: Supplemental ranges: <140 mg/dL before meals <180 mg/dL all other times of the day Blood specimen (specimen) 05/14/2016 11:37 PM EST 05/14/2016 11:37 PM EST Sonja Perez MD POINT OF CARE TEST O RDERARADHA Performing Organization Address [facility] de Phone Number [facility] [place] [address] * POCT Glucose (05/14/2016 7:02 PM EST) Glucose, POC 95 65 - 199 mg/dL [facility] Comment: Supplemental ranges: <140 mg/dL before meals <180 mg/dL all other times of the day Blood specimen (specimen) 05/14/2016 7:02 PM EST 05/14/2016 7:02 PM EST Sonja Perez MD POINT OF CARE TEST O JESSICA Performing Organization Address [facility] Phone Number [facility] [place] [address] * POCT Glucose (05/14/2016 3:55 PM EST) Glucose, POC 166 65 - 199 mg/dL [facility] Comment: Supplemental ranges: <140 mg/dL before meals <180 mg/dL all other times of the day Blood specimen (specimen) 05/14/2016 3:55 PM EST 05/14/2016 3:55 PM EST Sonja Perez MD POINT OF CARE TEST O JESSICA Performing Organization Address [facility] de Phone Number [facility] [place] [address] * (ABNORMAL) POCT Glucose (05/14/2016 1:49 PM EST) Glucose, POC 294(H) 65 - 199 mg/dL [facility] Comment: Supplemental ranges: <140 mg/dL before meals <180 mg/dL all other times of the day Blood specimen (specimen) 05/14/2016 1:49 PM EST 05/14/2016 1:49 PM EST Sonja Perez MD POINT OF CARE TEST O RDERARADHA Performing Organization Address [facility]/ZIP Co de Phone Number [facility] [place] [address] * (ABNORMAL) POCT Glucose (05/14/2016 11:29 AM EST) Glucose, POC 256(H) 65 - 199 mg/dL [facility] Comment: Supplemental ranges: <140 mg/dL before meals <180 mg/dL all other times of the day Blood specimen (specimen) 05/14/2016 11:29 AM EST 05/14/2016 11:29 AM EST Sonja Perez MD POINT OF CARE TEST O RDERABLES Performing Organization Address [facility] Phone Number [facility] [place] [address] * POCT Glucose (05/14/2016 7:15 AM EST) Glucose, POC 80 65 - 199 mg/dL [facility] Comment: Supplemental ranges: <140 mg/dL before meals <180 mg/dL all other times of the day Blood specimen (specimen) 05/14/2016 7:15 AM EST 05/14/2016 7:15 AM EST Sonja Perez MD POINT OF CARE TEST O RDERABLES Performing Organization Address [facility] de Phone Number [facility] [place] [address] * Phosphorus (05/14/2016 5:30 AM EST) Phosphorus 3.3 2.5 - 4.5 mg/dL [facility] Blood specimen (specimen) 05/14/2016 5:30 AM EST 05/14/2016 5:40 AM EST Narrative Resulting Agency Comment Spec In Lab Minerva Plascencia MD CHEMISTRY ORDERABL ES Performing Organization Address [facility] Co de Phone Number [facility] [place] [address] * Magnesium (05/14/2016 5:30 AM EST) Magnesium 0.89 0.69 - 1.07 mmol/L [facility] Blood specimen (specimen) 05/14/2016 5:30 AM EST 05/14/2016 5:40 AM EST Narrative Resulting Agency Comment Spec In Lab Minerva Plascencia MD CHEMISTRY ORDERABL ES [facility] [place] [address] * (ABNORMAL) Basic Metabolic Panel (non-fasting) (05/14/2016 5:30 AM EST) Pathologist [facility] Glucose 112 65 - 199 mg/dL [facility] Comment:Diabetes: >=200 mg/d L plus symptoms Blood Urea Nitrogen 8 8 - 18 mg/dL [facility] Creatinine 0.73 0.70 - 1.20 mg/dL [facility] Comment: Please note that the pediatric reference intervals supplied above were not validated at [facility]. Results from pediatric patients should be interpreted in conjunction to the patient's age, height and muscle mass. Sodium 142 135 - 145 mmol/L [facility] Potassium 4.5 3.5 - 5.0 mmol/L [facility] Comment: Please note: ??Patients with WBC >100,000 may have falsely elevated Potassium levels. ??For accurate Potassium quantification in these patients send serum separator tube (gold top) for subsequent determinations. ??Contact the Clinical Chemistry Laboratory if there are any questions. Chloride 101 98 - 107 mmol/L [facility] Carbon Dioxide 32(H) 22 - 31 mmol/L [facility] Anion Gap 9 5 - 15 mmol/L [facility] Calcium 8.6 8.5 - 10.5 mg/dL [facility] Est Glomerular Filtration Rate >60 >=60 [facility] Comment: This estimated GFR (eGFR) value was calculated using the MDRD equation which has been validated on patients between the ages of 18 and 70. The MDRD should not be used to assess kidney function in patients < 18 years of age or in patients with extremes of body mass, or in patients with acute kidney failure. This value should be multiplied by 1.2 for patients. For further information please copy and paste the following links into your internet browser. [email or web address] Blood specimen (specimen) 05/14/2016 5:30 AM EST 05/14/2016 5:40 AM EST Narrative Resulting Agency Comment Spec In Lab Minerva Plascencia MD CHEMISTRY ORDERABL ES [facility] [place] [address] * (ABNORMAL) Hemogram (05/14/2016 5:30 AM EST) White Blood Cell 5.3 4.0 - 9.5 x10(3)/mc L [facility] Red Blood Cell 3.97(L) 4.00 - 5.21 x10(6)/mc L [facility] Hemoglobin 9.2(L) 11.7 - 15.5 gm/dL [facility] Hematocrit 29.6(L) 35.7 - 45.8 % [facility] Mean Cell Volume 74.6(L) 82.6 - 94.4 fL [facility] Mean Cell Hemoglobin 23.2(L) 27.1 - 32.0 pg [facility] Mean Cell Hemoglobin Concentration 31.1(L) 31.7 - 35.0 gm/dL [facility] Platelet 344 145 - 357 x10(3)/mc L [facility] RDW Standard Deviation 45.9 37.0 - 46.0 fL [facility] RDW coefficient of variation 17.2(H) 11.5 - 14.1 % [facility] Mean Platelet Volume 9.5 7.6 - 12.9 fL [facility] NRBC% auto 0.0 % [facility] NRBC Absolute 0.000 0.000 - 0.000 x10(3)/mc L [facility] Blood specimen (specimen) 05/14/2016 5:30 AM EST 05/14/2016 5:40 AM EST Narrative Resulting Agency Comment Spec In Lab Minerva Plascencia MD HEMATOLOGY ORDERAB LES Performing Organization Address City/[facility]/ZIP Co de Phone Number [facility] [place] [address] * POCT Glucose (05/14/2016 3:42 AM EST) Glucose, POC 171 65 - 199 mg/dL [facility] Comment: Supplemental ranges: <140 mg/dL before meals <180 mg/dL all other times of the day Blood specimen (specimen) 05/14/2016 3:42 AM EST 05/14/2016 3:42 AM EST Sonja Perez MD POINT OF CARE TEST O RDERARADHA Performing Organization Address [facility] Co de Phone Number [facility] [place] [address] * POCT Glucose (05/14/2016 2:09 AM EST) Glucose, POC 195 65 - 199 mg/dL [facility] Comment: Supplemental ranges: <140 mg/dL before meals <180 mg/dL all other times of the day Blood specimen (specimen) 05/14/2016 2:09 AM EST 05/14/2016 2:09 AM EST Sonja Perez MD POINT OF CARE TEST O RDERABLES Performing Organization Address City/[facility] Co de Phone Number [facility] [place] [address] * (ABNORMAL) POCT Glucose (05/14/2016 12:11 AM EST) Glucose, POC 303(H) 65 - 199 mg/dL [facility] Comment: Supplemental ranges: <140 mg/dL before meals <180 mg/dL all other times of the day Blood specimen (specimen) 05/14/2016 12:11 AM EST 05/14/2016 12:11 AM EST Sonja Perez MD POINT OF CARE TEST O JESSICA Performing Organization Address [facility] Co de Phone Number [facility] [place] [address] * (ABNORMAL) POCT Glucose (05/13/2016 7:03 PM EST) Glucose, POC 204(H) 65 - 199 mg/dL [facility] Comment: Supplemental ranges: <140 mg/dL before meals <180 mg/dL all other times of the day Blood specimen (specimen) 05/13/2016 7:03 PM EST 05/13/2016 7:03 PM EST Sonja Perez MD POINT OF CARE TEST Renetta LOPEZ Performing Organization Address [facility] Co de Phone Number [facility] [place] [address] * POCT Glucose (05/13/2016 4:01 PM EST) Glucose, POC 174 65 - 199 mg/dL [facility] Comment: Supplemental ranges: <140 mg/dL before meals <180 mg/dL all other times of the day Blood specimen (specimen) 05/13/2016 4:01 PM EST 05/13/2016 4:01 PM EST Sonja Perez MD POINT OF CARE TEST Renetta LOPEZ Performing Organization Address [facility] Co de Phone Number [facility] [place] [address] * XR Fluoro Barium Swallow (05/13/2016 2:08 PM EST) Anatomical Region Laterality Modality N/A Radio Fluoroscop y Impressions 05/13/2016 3:01 PM EST 1. ??No evidence of leak. 2. ??Marked esophageal dysmotility. I have personally reviewed the image(s) and the residents interpretation and agree with the findings, Jorgito Jones at 05/13/2016 3:01 PM Narrative 05/13/2016 3:01 PM EST EXAMINATION: XR FLUORO BARIUM SWALLOW CLINICAL HISTORY: Pt is s/p paraesophageal hernia repair with toupet fundoplicaion now c/o dysphagia TECHNIQUE: Computer Systems Software Architect radiograph of the upper abdomen was obtained. Single contrast esophagram was performed with water-soluble contrast (Omnipaque 300) followed by thin barium. Fluoroscopic spot images and radiographs were obtained in multiple projections. Fluoroscopic time: 1.63 minutes COMPARISON: Multiple prior exams, most recently 02/11/2016 esophagram FINDINGS: Computer Systems Software Architect radiograph demonstrates partially imaged nonobstructive bowel gas pattern. There is airless lung in the left base, likely representing atelectasis and postsurgical change. The esophagus distends well. No contrast extravasation is seen with water-soluble contrast or thin barium. The gastroesophageal junction is narrow, compatible with fundoplication wrap. Primary and secondary peristaltic waves do not clear the esophagus. Tertiary waves are noted throughout the esophagus. The esophagus clears slowly in upright positioning via gravity The airless lung in the left lung base limits identification of the exact position of the gastroesophageal junction, however no recurrent hiatal hernia is identified. Procedure Note Jorgito Jones MD - 05/13/2016 EXAMINATION: XR FLUORO BARIUM SWALLOW CLINICAL HISTORY: Pt is s/p paraesophageal hernia repair with toupet fundoplicaion now c/o dysphagia TECHNIQUE: Computer Systems Software Architect radiograph of the upper abdomen was obtained. Singlecontrast esophagram was performed with water-soluble contrast (Omnipaque 300)followed by thin barium. Fluoroscopic spot images and radiographs were obtained inmultiple projections. Fluoroscopic time: 1.63 minutes COMPARISON: Multiple prior exams, most recently 02/11/2016 esophagram FINDINGS: Computer Systems Software Architect radiograph demonstrates partially imaged nonobstructive bowel gaspattern. There is airless lung in the left base, likely representing atelectasisand postsurgical change. The esophagus distends well. No contrast extravasation is seen with water-soluble contrast or thin barium. The gastroesophageal junction isnarrow, compatible with fundoplication wrap. Primary and secondary peristalticwaves do not clear the esophagus. Tertiary waves are noted throughout theesophagus. The esophagus clears slowly in upright positioning via gravity The airless lung in the left lung base limits identification of theexact position of the gastroesophageal junction, however no recurrent hiatalhernia is identified. IMPRESSION 1. No evidence of leak. 2. Marked esophageal dysmotility. I have personally reviewed the image(s) and the residents interpretationand agree with the findings, Jorgito Jones at 05/13/2016 3:01 PM Sonja Perez MD IMG FLUORO ORDERABLE S * POCT Glucose (05/13/2016 11:16 AM EST) Glucose, POC 143 65 - 199 mg/dL [facility] Comment: Supplemental ranges: <140 mg/dL before meals <180 mg/dL all other times of the day Blood specimen (specimen) 05/13/2016 11:16 AM EST 05/13/2016 11:16 AM EST Sonja Perez MD POINT OF CARE TEST O RDERABLES Performing Organization Address [facility]/ZIP Co de Phone Number [facility] [place] [address] * POCT Glucose (05/13/2016 7:17 AM EST) Glucose, POC 88 65 - 199 mg/dL [facility] Comment: Supplemental ranges: <140 mg/dL before meals <180 mg/dL all other times of the day Blood specimen (specimen) 05/13/2016 7:17 AM EST 05/13/2016 7:17 AM EST Sonja Perez MD POINT OF CARE TEST O RDERABLES Performing Organization Address City/[facility]/ZIP Co de Phone Number [facility] [place] [address] * Phosphorus (05/13/2016 5:22 AM EST) Phosphorus 3.8 2.5 - 4.5 mg/dL [facility] Blood specimen (specimen) 05/13/2016 5:22 AM EST 05/13/2016 5:33 AM EST Narrative Resulting Agency Comment Spec In Lab Minerva Plascencia MD CHEMISTRY ORDERABL ES Performing Organization Address [facility] Co de Phone Number [facility] [address] * Magnesium (05/13/2016 5:22 AM EST) Magnesium 0.76 0.69 - 1.07 mmol/L [facility] Blood specimen (specimen) 05/13/2016 5:22 AM EST 05/13/2016 5:33 AM EST Narrative Resulting Agency Comment Spec In Lab Minerva Plascencia MD CHEMISTRY ORDERABL ES Performing Organization Address [facility] Co de Phone Number [facility] [place] [address] * (ABNORMAL) Basic Metabolic Panel (non-fasting) (05/13/2016 5:22 AM EST) Glucose 69 65 - 199 mg/dL [facility] Comment:Diabetes: >=200 mg/d L plus symptoms Blood Urea Nitrogen 6(L) 8 - 18 mg/dL [facility] Creatinine 0.63(L) 0.70 - 1.20 mg/dL [facility] Comment: Please note that the pediatric reference intervals supplied above were not validated at [facility]. Results from pediatric patients should be interpreted in conjunction to the patient's age, height and muscle mass. Sodium 143 135 - 145 mmol/L [facility] Potassium 4.2 3.5 - 5.0 mmol/L [facility] Comment: Please note: ??Patients with WBC >100,000 may have falsely elevated Potassium levels. ??For accurate Potassium quantification in these patients send serum separator tube (gold top) for subsequent determinations. ??Contact the Clinical Chemistry Laboratory if there are any questions. Chloride 103 98 - 107 mmol/L [facility] Carbon Dioxide 33(H) 22 - 31 mmol/L [facility] Anion Gap 7 5 - 15 mmol/L [facility] Calcium 8.7 8.5 - 10.5 mg/dL [facility] Est Glomerular Filtration Rate >60 >=60 [facility] Comment: This estimated GFR (eGFR) value was calculated using the MDRD equation which has been validated on patients between the ages of 18 and 70. The MDRD should not be used to assess kidney function in patients < 18 years of age or in patients with extremes of body mass, or in patients with acute kidney failure. This value should be multiplied by 1.2 for patients. For further information please copy and paste the following links into your internet browser. [email or web address] Blood specimen (specimen) 05/13/2016 5:22 AM EST 05/13/2016 5:33 AM EST Narrative Resulting Agency Comment Spec In Lab Minerva Plascencia MD CHEMISTRY ORDERABL ES [facility] [place] [address] * (ABNORMAL) Hemogram (05/13/2016 5:22 AM EST) White Blood Cell 4.7 4.0 - 9.5 x10(3)/mc L [facility] Red Blood Cell 3.98(L) 4.00 - 5.21 x10(6)/mc L [facility] Hemoglobin 9.1(L) 11.7 - 15.5 gm/dL [facility] Hematocrit 29.9(L) 35.7 - 45.8 % [facility] Mean Cell Volume 75.1(L) 82.6 - 94.4 fL [facility] Mean Cell Hemoglobin 22.9(L) 27.1 - 32.0 pg [facility] Mean Cell Hemoglobin Concentration 30.4(L) 31.7 - 35.0 gm/dL [facility] Platelet 308 145 - 357 x10(3)/mc L [facility] RDW Standard Deviation 45.8 37.0 - 46.0 fL [facility] RDW coefficient of variation 17.2(H) 11.5 - 14.1 % [facility] Mean Platelet Volume 9.5 7.6 - 12.9 fL [facility] NRBC% auto 0.0 % [facility] NRBC Absolute 0.000 0.000 - 0.000 x10(3)/mc L [facility] Blood specimen (specimen) 05/13/2016 5:22 AM EST 05/13/2016 5:33 AM EST Narrative Resulting Agency Comment Spec In Lab Minerva Plascencia MD HEMATOLOGY ORDERAB LES Performing Organization Address City/[facility]/ZIP Co de Phone Number [facility] [place] [address] * POCT Glucose (05/13/2016 4:08 AM EST) Glucose, POC 71 65 - 199 mg/dL [facility] Comment: Supplemental ranges: <140 mg/dL before meals <180 mg/dL all other times of the day Blood specimen (specimen) 05/13/2016 4:08 AM EST 05/13/2016 4:08 AM EST Sonja Perez MD POINT OF CARE TEST O RDERABLES Performing Organization Address City/[facility]/ZIP Co de Phone Number [facility] [place] [address] * POCT Glucose (05/13/2016 1:12 AM EST) Glucose, POC 83 65 - 199 mg/dL [facility] Comment: Supplemental ranges: <140 mg/dL before meals <180 mg/dL all other times of the day Blood specimen (specimen) 05/13/2016 1:12 AM EST 05/13/2016 1:12 AM EST Sonja Perez MD POINT OF CARE TEST O RDKATHY Performing Organization Address [facility] Co de Phone Number [facility] [place] [address] * POCT Glucose (05/12/2016 11:52 PM EST) Glucose, POC 79 65 - 199 mg/dL [facility] Comment: Supplemental ranges: <140 mg/dL before meals <180 mg/dL all other times of the day Blood specimen (specimen) 05/12/2016 11:52 PM EST 05/12/2016 11:52 PM EST Sonja Perez MD POINT OF CARE TEST O JESSICA Performing Organization Address [facility] Co de Phone Number [facility] [place] [address] * (ABNORMAL) POCT Glucose (05/12/2016 11:12 PM EST) Glucose, POC 52(Critica l) 65 - 199 mg/dL [facility] Comment: Supplemental ranges: <140 mg/dL before meals <180 mg/dL all other times of the day Blood specimen (specimen) 05/12/2016 11:12 PM EST 05/12/2016 11:12 PM EST Sonja Perez MD POINT OF CARE TEST O LUPISERARADHA Performing Organization Address [facility] Co de Phone Number [facility] [place] [address] * POCT Glucose (05/12/2016 7:13 PM EST) Glucose, POC 182 65 - 199 mg/dL [facility] Comment: Supplemental ranges: <140 mg/dL before meals <180 mg/dL all other times of the day Blood specimen (specimen) 05/12/2016 7:13 PM EST 05/12/2016 7:13 PM EST Sonja Perez MD POINT OF CARE TEST O JESSICA Performing Organization Address [facility] Co de Phone Number [facility] [place] [address] * (ABNORMAL) POCT Glucose (05/12/2016 3:37 PM EST) Glucose, POC 221(H) 65 - 199 mg/dL [facility] Comment: Supplemental ranges: <140 mg/dL before meals <180 mg/dL all other times of the day Blood specimen (specimen) 05/12/2016 3:37 PM EST 05/12/2016 3:37 PM EST Sonja Perez MD POINT OF CARE TEST Renetta LOPEZ Performing Organization Address [facility] de Phone Number [facility] [place] [address] * (ABNORMAL) POCT Glucose (05/12/2016 11:27 AM EST) Glucose, POC 226(H) 65 - 199 mg/dL [facility] Comment: Supplemental ranges: <140 mg/dL before meals <180 mg/dL all other times of the day Blood specimen (specimen) 05/12/2016 11:27 AM EST 05/12/2016 11:27 AM EST Sonja Perez MD POINT OF CARE TEST O JESSICA Performing Organization Address [facility] Phone Number [facility] [place] [address] * POCT Glucose (05/12/2016 7:27 AM EST) Glucose, POC 125 65 - 199 mg/dL [facility] Comment: Supplemental ranges: <140 mg/dL before meals <180 mg/dL all other times of the day Blood specimen (specimen) 05/12/2016 7:27 AM EST 05/12/2016 7:27 AM EST Sonja Perez MD POINT OF CARE TEST O JESSICA Performing Organization Address [facility] Co de Phone Number [facility] [place] [address] * POCT Glucose (05/12/2016 6:53 AM EST) Glucose, POC 68 65 - 199 mg/dL [facility] Comment: Supplemental ranges: <140 mg/dL before meals <180 mg/dL all other times of the day Blood specimen (specimen) 05/12/2016 6:53 AM EST 05/12/2016 6:53 AM EST Sonja Perez MD POINT OF CARE TEST O JESSICA Performing Organization Address [facility] Co de Phone Number [facility] [place] [address] * (ABNORMAL) POCT Glucose (05/12/2016 6:25 AM EST) Glucose, POC 57(L) 65 - 199 mg/dL [facility] Comment: Supplemental ranges: <140 mg/dL before meals <180 mg/dL all other times of the day Blood specimen (specimen) 05/12/2016 6:25 AM EST 05/12/2016 6:25 AM EST Sonja Perez MD POINT OF CARE TEST O JESSICA Performing Organization Address [facility] Co de Phone Number [facility] [place] [address] * Phosphorus (05/12/2016 5:08 AM EST) Phosphorus 4.4 2.5 - 4.5 mg/dL [facility] Blood specimen (specimen) 05/12/2016 5:08 AM EST 05/12/2016 5:19 AM EST Narrative Resulting Agency Comment Spec In Lab Minerva Plascencia MD CHEMISTRY ORDERABL ES Performing Organization Address [facility] Co de Phone Number [facility] [place] [address] * Magnesium (05/12/2016 5:08 AM EST) Magnesium 0.87 0.69 - 1.07 mmol/L [facility] Blood specimen (specimen) 05/12/2016 5:08 AM EST 05/12/2016 5:19 AM EST Narrative Resulting Agency Comment Spec In Lab Minerva Plascencia MD CHEMISTRY ORDERABL ES Performing Organization Address [facility] Co de Phone Number [facility] [place] [place] [address] * (ABNORMAL) Basic Metabolic Panel (non-fasting) (05/12/2016 5:08 AM EST) Pathologist [facility] Glucose 64(L) 65 - 199 mg/dL [facility] Comment:Diabetes: >=200 mg/d L plus symptoms Blood Urea Nitrogen 7(L) 8 - 18 mg/dL [facility] Creatinine 0.65(L) 0.70 - 1.20 mg/dL [facility] Comment: Please note that the pediatric reference intervals supplied above were not validated at [facility]. Results from pediatric patients should be interpreted in conjunction to the patient's age, height and muscle mass. Sodium 143 135 - 145 mmol/L [facility] Potassium 4.0 3.5 - 5.0 mmol/L [facility] Comment: Please note: ??Patients with WBC >100,000 may have falsely elevated Potassium levels. ??For accurate Potassium quantification in these patients send serum separator tube (gold top) for subsequent determinations. ??Contact the Clinical Chemistry Laboratory if there are any questions. Chloride 102 98 - 107 mmol/L [facility] Carbon Dioxide 32(H) 22 - 31 mmol/L [facility] Anion Gap 9 5 - 15 mmol/L [facility] Calcium 8.6 8.5 - 10.5 mg/dL [facility] Est Glomerular Filtration Rate >60 >=60 [facility] Comment: This estimated GFR (eGFR) value was calculated using the MDRD equation which has been validated on patients between the ages of 18 and 70. The MDRD should not be used to assess kidney function in patients < 18 years of age or in patients with extremes of body mass, or in patients with acute kidney failure. This value should be multiplied by 1.2 for patients. For further information please copy and paste the following links into your internet browser. [email or web address] Blood specimen (specimen) 05/12/2016 5:08 AM EST 05/12/2016 5:19 AM EST Narrative Resulting Agency Comment Spec In Lab Minerva Plascencia MD CHEMISTRY ORDERABL ES [facility] [place] [id number] * (ABNORMAL) Hemogram (05/12/2016 5:08 AM EST) White Blood Cell 4.6 4.0 - 9.5 x10(3)/mc L [facility] Red Blood Cell 4.17 4.00 - 5.21 x10(6)/mc L [facility] Hemoglobin 9.3(L) 11.7 - 15.5 gm/dL [facility] Hematocrit 31.0(L) 35.7 - 45.8 % [facility] Mean Cell Volume 74.3(L) 82.6 - 94.4 fL [facility] Mean Cell Hemoglobin 22.3(L) 27.1 - 32.0 pg [facility] Mean Cell Hemoglobin Concentration 30.0(L) 31.7 - 35.0 gm/dL [facility] Platelet 284 145 - 357 x10(3)/mc L [facility] RDW Standard Deviation 45.5 37.0 - 46.0 fL [facility] RDW coefficient of variation 17.0(H) 11.5 - 14.1 % [facility] Mean Platelet Volume 9.0 7.6 - 12.9 fL [facility] NRBC% auto 0.0 % [facility] NRBC Absolute 0.000 0.000 - 0.000 x10(3)/mc L [facility] Blood specimen (specimen) 05/12/2016 5:08 AM EST 05/12/2016 5:19 AM EST Narrative Resulting Agency Comment Spec In Lab Minerva Plascencia MD HEMATOLOGY ORDERAB LES Performing Organization Address [facility] Co de Phone Number [facility] [place] [place] [address] * POCT Glucose (05/12/2016 3:47 AM EST) Glucose, POC 79 65 - 199 mg/dL [facility] Comment: Supplemental ranges: <140 mg/dL before meals <180 mg/dL all other times of the day Blood specimen (specimen) 05/12/2016 3:47 AM EST 05/12/2016 3:47 AM EST Sonja Perez MD POINT OF CARE TEST O RDERABLES Performing Organization Address City/[facility]/ZIP Co de Phone Number [facility] [place] [place] [address] * POCT Glucose (05/11/2016 11:45 PM EST) Glucose, POC 79 65 - 199 mg/dL [facility] Comment: Supplemental ranges: <140 mg/dL before meals <180 mg/dL all other times of the day Blood specimen (specimen) 05/11/2016 11:45 PM EST 05/11/2016 11:45 PM EST Sonja Perez MD POINT OF CARE TEST O JESSICA Performing Organization Address [facility] Co de Phone Number [facility] [place] [address] * POCT Glucose (05/11/2016 7:01 PM EST) Glucose, POC 83 65 - 199 mg/dL [facility] Comment: Supplemental ranges: <140 mg/dL before meals <180 mg/dL all other times of the day Blood specimen (specimen) 05/11/2016 7:01 PM EST 05/11/2016 7:01 PM EST Sonja Perez MD POINT OF CARE TEST O JESSICA Performing Organization Address [facility] de Phone Number [facility] [place] [address] * POCT Glucose (05/11/2016 3:41 PM EST) Glucose, POC 176 65 - 199 mg/dL [facility] Comment: Supplemental ranges: <140 mg/dL before meals <180 mg/dL all other times of the day Blood specimen (specimen) 05/11/2016 3:41 PM EST 05/11/2016 3:41 PM EST Sonja Perez MD POINT OF CARE TEST Renetta LOPEZ Performing Organization Address [facility] de Phone Number [facility] [place] [address] * (ABNORMAL) POCT Glucose (05/11/2016 1:53 PM EST) Glucose, POC 220(H) 65 - 199 mg/dL [facility] Comment: Supplemental ranges: <140 mg/dL before meals <180 mg/dL all other times of the day Blood specimen (specimen) 05/11/2016 1:53 PM EST 05/11/2016 1:53 PM EST Sonja Perez MD POINT OF CARE TEST O RDERABLES Performing Organization Address [facility] Co de Phone Number [facility] [place] [address] * (ABNORMAL) POCT Glucose (05/11/2016 11:42 AM EST) Glucose, POC 255(H) 65 - 199 mg/dL [facility] Comment: Supplemental ranges: <140 mg/dL before meals <180 mg/dL all other times of the day Blood specimen (specimen) 05/11/2016 11:42 AM EST 05/11/2016 11:42 AM EST Sonja Perez MD POINT OF CARE TEST O RDERABLES Performing Organization Address [facility] Phone Number [facility] [place] [address] * POCT Glucose (05/11/2016 7:58 AM EST) Glucose, POC 90 65 - 199 mg/dL [facility] Comment: Supplemental ranges: <140 mg/dL before meals <180 mg/dL all other times of the day Blood specimen (specimen) 05/11/2016 7:58 AM EST 05/11/2016 7:58 AM EST Sonja Perez MD POINT OF CARE TEST O RDERABLES Performing Organization Address [facility] de Phone Number [facility] [place] [address] * Phosphorus (05/11/2016 5:54 AM EST) Phosphorus 3.5 2.5 - 4.5 mg/dL [facility] Blood specimen (specimen) Venous Draw / Unknown 05/11/2016 5:54 AM EST 05/11/2016 5:58 AM EST Narrative Resulting Agency Comment Spec In Lab Minerva Plascencia MD CHEMISTRY ORDERABL ES Performing Organization Address [facility] Co de Phone Number [facility] [place] [address] * Magnesium (05/11/2016 5:54 AM EST) Magnesium 0.74 0.69 - 1.07 mmol/L [facility] Blood specimen (specimen) Venous Draw / Unknown 05/11/2016 5:54 AM EST 05/11/2016 5:58 AM EST Narrative Resulting Agency Comment Spec In Lab Minerva Plascencia MD CHEMISTRY ORDERABL ES [facility] [place] [address] * (ABNORMAL) Basic Metabolic Panel (non-fasting) (05/11/2016 5:54 AM EST) Glucose 99 65 - 199 mg/dL [facility] Comment:Diabetes: >=200 mg/d L plus symptoms Blood Urea Nitrogen 11 8 - 18 mg/dL [facility] Creatinine 0.72 0.70 - 1.20 mg/dL [facility] Comment: Please note that the pediatric reference intervals supplied above were not validated at [facility]. Results from pediatric patients should be interpreted in conjunction to the patient's age, height and muscle mass. Sodium 139 135 - 145 mmol/L [facility] Potassium 4.2 3.5 - 5.0 mmol/L [facility] Comment: Please note: ??Patients with WBC >100,000 may have falsely elevated Potassium levels. ??For accurate Potassium quantification in these patients send serum separator tube (gold top) for subsequent determinations. ??Contact the Clinical Chemistry Laboratory if there are any questions. Chloride 99 98 - 107 mmol/L [facility] Carbon Dioxide 32(H) 22 - 31 mmol/L [facility] Anion Gap 8 5 - 15 mmol/L [facility] Calcium 8.3(L) 8.5 - 10.5 mg/dL [facility] Est Glomerular Filtration Rate >60 >=60 [facility] Comment: This estimated GFR (eGFR) value was calculated using the MDRD equation which has been validated on patients between the ages of 18 and 70. The MDRD should not be used to assess kidney function in patients < 18 years of age or in patients with extremes of body mass, or in patients with acute kidney failure. This value should be multiplied by 1.2 for patients. For further information please copy and paste the following links into your internet browser. [email or web address] Blood specimen (specimen) 05/11/2016 5:54 AM EST 05/11/2016 5:58 AM EST Narrative Resulting Agency Comment Spec In Lab Minerva Plascencia MD CHEMISTRY ORDERABL ES [facility] [place] [id number] * (ABNORMAL) Hemogram (05/11/2016 5:54 AM EST) White Blood Cell 4.4 4.0 - 9.5 x10(3)/mc L [facility] Red Blood Cell 3.73(L) 4.00 - 5.21 x10(6)/mc L [facility] Hemoglobin 8.5(L) 11.7 - 15.5 gm/dL [facility] Hematocrit 27.6(L) 35.7 - 45.8 % [facility] Mean Cell Volume 74.0(L) 82.6 - 94.4 fL [facility] Mean Cell Hemoglobin 22.8(L) 27.1 - 32.0 pg [facility] Mean Cell Hemoglobin Concentration 30.8(L) 31.7 - 35.0 gm/dL [facility] Platelet 255 145 - 357 x10(3)/mc L [facility] RDW Standard Deviation 45.8 37.0 - 46.0 fL [facility] RDW coefficient of variation 17.1(H) 11.5 - 14.1 % [facility] Mean Platelet Volume 9.3 7.6 - 12.9 fL [facility] NRBC% auto 0.0 % [facility] NRBC Absolute 0.000 0.000 - 0.000 x10(3)/mc L [facility] Blood specimen (specimen) 05/11/2016 5:54 AM EST 05/11/2016 5:58 AM EST Narrative Resulting Agency Comment Spec In Lab Minerva Plascencia MD HEMATOLOGY ORDERAB LES Performing Organization Address City/[facility]/ZIP Co de Phone Number [facility] [place] [address] * POCT Glucose (05/11/2016 3:49 AM EST) Glucose, POC 71 65 - 199 mg/dL [facility] Comment: Supplemental ranges: <140 mg/dL before meals <180 mg/dL all other times of the day Blood specimen (specimen) 05/11/2016 3:49 AM EST 05/11/2016 3:49 AM EST Sonja Perez MD POINT OF CARE TEST O RDERABLES Performing Organization Address [facility]/ZIP Co de Phone Number [facility] [place] [address] * POCT Glucose (05/10/2016 11:58 PM EST) Glucose, POC 109 65 - 199 mg/dL [facility] Comment: Supplemental ranges: <140 mg/dL before meals <180 mg/dL all other times of the day Blood specimen (specimen) 05/10/2016 11:58 PM EST 05/10/2016 11:58 PM EST Sonja Perez MD POINT OF CARE TEST O RDERABLES Performing Organization Address City/[facility]/ZIP Co de Phone Number [facility] [place] [address] * POCT Glucose (05/10/2016 7:58 PM EST) Glucose, POC 181 65 - 199 mg/dL [facility] Comment: Supplemental ranges: <140 mg/dL before meals <180 mg/dL all other times of the day Blood specimen (specimen) 05/10/2016 7:58 PM EST 05/10/2016 7:58 PM EST Sonja Perez MD POINT OF CARE TEST O JESSICA Performing Organization Address [facility] Co de Phone Number [facility] [place] [address] * (ABNORMAL) POCT Glucose (05/10/2016 6:07 PM EST) Glucose, POC 241(H) 65 - 199 mg/dL [facility] Comment: Supplemental ranges: <140 mg/dL before meals <180 mg/dL all other times of the day Blood specimen (specimen) 05/10/2016 6:07 PM EST 05/10/2016 6:07 PM EST Sonja Perez MD POINT OF CARE TEST O JESSICA Performing Organization Address [facility] Phone Number [facility] [place] [address] * (ABNORMAL) POCT Glucose (05/10/2016 4:28 PM EST) Glucose, POC 268(H) 65 - 199 mg/dL [facility] Comment: Supplemental ranges: <140 mg/dL before meals <180 mg/dL all other times of the day Blood specimen (specimen) 05/10/2016 4:28 PM EST 05/10/2016 4:28 PM EST Sonja Perez MD POINT OF CARE TEST Renetta LOPEZ Performing Organization Address [facility] Co de Phone Number [facility] [place] [address] * POCT Glucose (05/10/2016 11:45 AM EST) Pathologist [facility] Glucose, POC 138 65 - 199 mg/dL [facility] Comment: Supplemental ranges: <140 mg/dL before meals <180 mg/dL all other times of the day Blood specimen (specimen) 05/10/2016 11:45 AM EST 05/10/2016 11:45 AM EST Sonja Perez MD POINT OF CARE TEST O RDERABLES Performing Organization Address [facility] Co de Phone Number [facility] [place] [address] * Phosphorus (05/10/2016 11:22 AM EST) [facility] Phosphorus 2.7 2.5 - 4.5 mg/dL [facility] Blood specimen (specimen) 05/10/2016 11:22 AM EST 05/10/2016 11:34 AM EST Narrative Resulting Agency Comment Spec In Lab Minerva Plascencia MD CHEMISTRY ORDERABL ES Performing Organization Address [facility] Phone Number [facility] [place] [address] * Magnesium (05/10/2016 11:22 AM EST) [facility] Magnesium 0.76 0.69 - 1.07 mmol/L [facility] Blood specimen (specimen) 05/10/2016 11:22 AM EST 05/10/2016 11:34 AM EST Narrative Resulting Agency Comment Spec In Lab Minerva Plascencia MD CHEMISTRY ORDERABL ES Performing Organization Address [facility] Phone Number [facility] [place] [address] * (ABNORMAL) Basic Metabolic Panel (non-fasting) (05/10/2016 11:22 AM EST) [facility] Glucose 125 65 - 199 mg/dL [facility] Comment:Diabetes: >=200 mg/d L plus symptoms Blood Urea Nitrogen 11 8 - 18 mg/dL [facility] Creatinine 0.68(L) 0.70 - 1.20 mg/dL [facility] Comment: Please note that the pediatric reference intervals supplied above were not validated at [facility]. Results from pediatric patients should be interpreted in conjunction to the patient's age, height and muscle mass. Sodium 138 135 - 145 mmol/L [facility] Potassium 3.9 3.5 - 5.0 mmol/L [facility] Comment: Please note: ??Patients with WBC >100,000 may have falsely elevated Potassium levels. ??For accurate Potassium quantification in these patients send serum separator tube (gold top) for subsequent determinations. ??Contact the Clinical Chemistry Laboratory if there are any questions. Chloride 99 98 - 107 mmol/L [facility] Carbon Dioxide 27 22 - 31 mmol/L [facility] Anion Gap 12 5 - 15 mmol/L [facility] Calcium 7.7(L) 8.5 - 10.5 mg/dL [facility] Est Glomerular Filtration Rate >60 >=60 [facility] Comment: This estimated GFR (eGFR) value was calculated using the MDRD equation which has been validated on patients between the ages of 18 and 70. The MDRD should not be used to assess kidney function in patients < 18 years of age or in patients with extremes of body mass, or in patients with acute kidney failure. This value should be multiplied by 1.2 for patients. For further information please copy and paste the following links into your internet browser. [email or web address] Blood specimen (specimen) 05/10/2016 11:22 AM EST 05/10/2016 11:34 AM EST Narrative Resulting Agency Comment Spec In Lab Minerva Plascencia MD CHEMISTRY ORDERABL ES [facility] [place] [address] * (ABNORMAL) Hemogram (05/10/2016 11:22 AM EST) Pathologist [facility] White Blood Cell 4.4 4.0 - 9.5 x10(3)/[facility] Red Blood Cell 3.85(L) 4.00 - 5.21 x10(6)/[facility] Hemoglobin 8.7(L) 11.7 - 15.5 gm/dL [facility] Hematocrit 28.6(L) 35.7 - 45.8 % [facility] Mean Cell Volume 74.3(L) 82.6 - 94.4 [facility] Mean Cell Hemoglobin 22.6(L) 27.1 - 32.0 pg [facility] Mean Cell Hemoglobin Concentration 30.4(L) 31.7 - 35.0 gm/dL [facility] Platelet 240 145 - 357 x10(3)/[facility] RDW Standard Deviation 46.5(H) 37.0 - 46.0 [facility] RDW coefficient of variation 17.3(H) 11.5 - 14.1 % [facility] Mean Platelet Volume 9.1 7.6 - 12.9 [facility] NRBC% auto 0.0 % [facility] NRBC Absolute 0.000 0.000 - 0.000 x10(3)/[facility] Blood specimen (specimen) 05/10/2016 11:22 AM EST 05/10/2016 11:34 AM EST Narrative Resulting Agency Comment Spec In Lab Minerva Plascencia MD HEMATOLOGY ORDERAB LES [facility] [place] [address] * POCT Glucose (05/10/2016 9:53 AM EST) Pathologist [facility] Glucose, POC 125 65 - 199 mg/dL [facility] Comment: Supplemental ranges: <140 mg/dL before meals <180 mg/dL all other times of the day Blood specimen (specimen) 05/10/2016 9:53 AM EST 05/10/2016 9:53 AM EST Sonja Perez MD POINT OF CARE TEST O JESSICA Performing Organization Address [facility] Co de Phone Number [facility] [place] [address] * POCT Glucose (05/10/2016 7:39 AM EST) Glucose, POC 160 65 - 199 mg/dL [facility] Comment: Supplemental ranges: <140 mg/dL before meals <180 mg/dL all other times of the day Blood specimen (specimen) 05/10/2016 7:39 AM EST 05/10/2016 7:39 AM EST Sonja Perez MD POINT OF CARE TEST O JESSICA Performing Organization Address [facility] Co de Phone Number [facility] [place] [address] * POCT Glucose (05/10/2016 6:02 AM EST) Glucose, POC 186 65 - 199 mg/dL [facility] Comment: Supplemental ranges: <140 mg/dL before meals <180 mg/dL all other times of the day Blood specimen (specimen) 05/10/2016 6:02 AM EST 05/10/2016 6:02 AM EST Sonja Perez MD POINT OF CARE TEST O JESSIAC Performing Organization Address [facility] Co de Phone Number [facility] [place] [address] * POCT Glucose (05/10/2016 4:07 AM EST) Glucose, POC 129 65 - 199 mg/dL [facility] Comment: Supplemental ranges: <140 mg/dL before meals <180 mg/dL all other times of the day Blood specimen (specimen) 05/10/2016 4:07 AM EST 05/10/2016 4:07 AM EST Sonja Perez MD POINT OF CARE TEST Renetta LOPEZ Performing Organization Address [facility] Co de Phone Number [facility] [place] [address] * POCT Glucose (05/10/2016 2:13 AM EST) Glucose, POC 78 65 - 199 mg/dL [facility] Comment: Supplemental ranges: <140 mg/dL before meals <180 mg/dL all other times of the day Blood specimen (specimen) 05/10/2016 2:13 AM EST 05/10/2016 2:13 AM EST Sonja Perez MD POINT OF CARE TEST Renetta LOPEZ Performing Organization Address [facility] Co de Phone Number [facility] [place] [address] * POCT Glucose (05/10/2016 12:09 AM EST) Glucose, POC 106 65 - 199 mg/dL [facility] Comment: Supplemental ranges: <140 mg/dL before meals <180 mg/dL all other times of the day Blood specimen (specimen) 05/10/2016 12:09 AM EST 05/10/2016 12:09 AM EST Sonja Perez MD POINT OF CARE TEST Renetta LOPEZ Performing Organization Address [facility] Co de Phone Number [facility] [place] [address] * POCT Glucose (05/09/2016 10:13 PM EST) Glucose, POC 172 65 - 199 mg/dL [facility] Comment: Supplemental ranges: <140 mg/dL before meals <180 mg/dL all other times of the day Blood specimen (specimen) 05/09/2016 10:13 PM EST 05/09/2016 10:13 PM EST Sonja Perez MD POINT OF CARE TEST O JESSICA Performing Organization Address [facility] de Phone Number [facility] [place] [address] * POCT Glucose (05/09/2016 7:59 PM EST) Glucose, POC 181 65 - 199 mg/dL [facility] Comment: Supplemental ranges: <140 mg/dL before meals <180 mg/dL all other times of the day Blood specimen (specimen) 05/09/2016 7:59 PM EST 05/09/2016 7:59 PM EST Sonja Perez MD POINT OF CARE TEST O JESSICA Performing Organization Address [facility] Phone Number [facility] [place] [address] * POCT Glucose (05/09/2016 5:10 PM EST) Glucose, POC 114 65 - 199 mg/dL [facility] Comment: Supplemental ranges: <140 mg/dL before meals <180 mg/dL all other times of the day Blood specimen (specimen) 05/09/2016 5:10 PM EST 05/09/2016 5:10 PM EST Sonja Perez MD POINT OF CARE TEST O JESSICA Performing Organization Address [facility] Phone Number [facility] [place] [address] * POCT Glucose (05/09/2016 4:29 PM EST) Glucose, POC 125 65 - 199 mg/dL [facility] Comment: Supplemental ranges: <140 mg/dL before meals <180 mg/dL all other times of the day Blood specimen (specimen) 05/09/2016 4:29 PM EST 05/09/2016 4:29 PM EST Sonja Perez MD POINT OF CARE TEST O JESSICA Performing Organization Address [facility] Co de Phone Number [facility] [place] [address] * POCT Glucose (05/09/2016 2:16 PM EST) Glucose, POC 188 65 - 199 mg/dL [facility] Comment: Supplemental ranges: <140 mg/dL before meals <180 mg/dL all other times of the day Blood specimen (specimen) 05/09/2016 2:16 PM EST 05/09/2016 2:16 PM EST Sonja Perez MD POINT OF CARE TEST O JESSICA Performing Organization Address [facility] Co de Phone Number [facility] [place] [address] * POCT Glucose (05/09/2016 11:20 AM EST) Glucose, POC 176 65 - 199 mg/dL [facility] Comment: Supplemental ranges: <140 mg/dL before meals <180 mg/dL all other times of the day Blood specimen (specimen) 05/09/2016 11:20 AM EST 05/09/2016 11:20 AM EST Sonja Perez MD POINT OF CARE TEST Renetta LOPEZ Performing Organization Address [facility] Co de Phone Number [facility] [place] [address] * POCT Glucose (05/09/2016 8:07 AM EST) Glucose, POC 132 65 - 199 mg/dL [facility] Comment: Supplemental ranges: <140 mg/dL before meals <180 mg/dL all other times of the day Blood specimen (specimen) 05/09/2016 8:07 AM EST 05/09/2016 8:07 AM EST Sonja Perez MD POINT OF CARE TEST O RDERABLES Performing Organization Address [facility] Co de Phone Number [facility] [place] [address] * POCT Glucose (05/09/2016 6:05 AM EST) Glucose, POC 164 65 - 199 mg/dL [facility] Comment: Supplemental ranges: <140 mg/dL before meals <180 mg/dL all other times of the day Blood specimen (specimen) 05/09/2016 6:05 AM EST 05/09/2016 6:05 AM EST Sonja Perez MD POINT OF CARE TEST O RDERABLES Performing Organization Address [facility] de Phone Number [facility] [place] [address] * Scan, Peripheral Blood (05/09/2016 5:34 AM EST) Plat estimate Normal [facility] RBC Morphology Abnormal [facility] Microcyte 1-5 /HPF [facility] Blood specimen (specimen) 05/09/2016 5:34 AM EST 05/09/2016 6:07 AM EST Narrative Resulting Agency Comment Spec In Lab Minerva Plascencia MD HEMATOLOGY ORDERAB LES Performing Organization Address [facility] Co de Phone Number [facility] [place] [address] * Phosphorus (05/09/2016 5:34 AM EST) Phosphorus 3.8 2.5 - 4.5 mg/dL [facility] Blood specimen (specimen) 05/09/2016 5:34 AM EST 05/09/2016 6:07 AM EST Narrative Resulting Agency Comment Spec In Lab Minerva Plascencia MD CHEMISTRY ORDERABL ES Performing Organization Address [facility] Co de Phone Number [facility] [place] [address] * (ABNORMAL) Magnesium (05/09/2016 5:34 AM EST) Magnesium 0.60(L) 0.69 - 1.07 mmol/L [facility] Blood specimen (specimen) 05/09/2016 5:34 AM EST 05/09/2016 6:07 AM EST Narrative Resulting Agency Comment Spec In Lab Minerva Plascencia MD CHEMISTRY ORDERABL ES [facility] [address] [place] [address] * (ABNORMAL) Basic Metabolic Panel (non-fasting) (05/09/2016 5:34 AM EST) Glucose 189 65 - 199 mg/dL [facility] Comment:Diabetes: >=200 mg/d L plus symptoms Blood Urea Nitrogen 15 8 - 18 mg/dL [facility] Creatinine 0.72 0.70 - 1.20 mg/dL [facility] Comment: Please note that the pediatric reference intervals supplied above were not validated at [facility]. Results from pediatric patients should be interpreted in conjunction to the patient's age, height and muscle mass. Sodium 136 135 - 145 mmol/L [facility] Potassium 3.9 3.5 - 5.0 mmol/L [facility] Comment: Please note: ??Patients with WBC >100,000 may have falsely elevated Potassium levels. ??For accurate Potassium quantification in these patients send serum separator tube (gold top) for subsequent determinations. ??Contact the Clinical Chemistry Laboratory if there are any questions. Chloride 98 98 - 107 mmol/L [facility] Carbon Dioxide 26 22 - 31 mmol/L [facility] Anion Gap 12 5 - 15 mmol/L [facility] Calcium 7.9(L) 8.5 - 10.5 mg/dL [facility] Est Glomerular Filtration Rate >60 >=60 [facility] Comment: This estimated GFR (eGFR) value was calculated using the MDRD equation which has been validated on patients between the ages of 18 and 70. The MDRD should not be used to assess kidney function in patients < 18 years of age or in patients with extremes of body mass, or in patients with acute kidney failure. This value should be multiplied by 1.2 for patients. For further information please copy and paste the following links into your internet browser. [email or web address] Blood specimen (specimen) 05/09/2016 5:34 AM EST 05/09/2016 6:07 AM EST Narrative Resulting Agency Comment Spec In Lab Minerva Plascencia MD CHEMISTRY ORDERABL ES [facility] [place] [address] * (ABNORMAL) Hemogram (05/09/2016 5:34 AM EST) White Blood Cell 5.1 4.0 - 9.5 x10(3)/mc L [facility] Red Blood Cell 4.16 4.00 - 5.21 x10(6)/mc L [facility] Hemoglobin 9.5(L) 11.7 - 15.5 gm/dL [facility] Hematocrit 30.6(L) 35.7 - 45.8 % [facility] Mean Cell Volume 73.6(L) 82.6 - 94.4 fL [facility] Mean Cell Hemoglobin 22.8(L) 27.1 - 32.0 pg [facility] Mean Cell Hemoglobin Concentration 31.0(L) 31.7 - 35.0 gm/dL [facility] Platelet 230 145 - 357 x10(3)/mc L [facility] RDW Standard Deviation 46.0 37.0 - 46.0 fL [facility] RDW coefficient of variation 17.4(H) 11.5 - 14.1 % [facility] Mean Platelet Volume 9.8 7.6 - 12.9 fL [facility] NRBC% auto 0.0 % [facility] NRBC Absolute 0.000 0.000 - 0.000 x10(3)/mc L [facility] Blood specimen (specimen) 05/09/2016 5:34 AM EST 05/09/2016 6:07 AM EST Narrative Resulting Agency Comment Spec In Lab Minerva Plascencia MD HEMATOLOGY ORDERAB LES [facility] [place] [place] [address] * POCT Glucose (05/09/2016 4:28 AM EST) Glucose, POC 171 65 - 199 mg/dL [facility] Comment: Supplemental ranges: <140 mg/dL before meals <180 mg/dL all other times of the day Blood specimen (specimen) 05/09/2016 4:28 AM EST 05/09/2016 4:28 AM EST Sonja Perez MD POINT OF CARE TEST O RDERARADHA Performing Organization Address [facility]/ZIP Co de Phone Number [facility] [place] [address] * POCT Glucose (05/09/2016 2:09 AM EST) Glucose, POC 95 65 - 199 mg/dL [facility] Comment: Supplemental ranges: <140 mg/dL before meals <180 mg/dL all other times of the day Blood specimen (specimen) 05/09/2016 2:09 AM EST 05/09/2016 2:09 AM EST Sonja Perez MD POINT OF CARE TEST O RDERARADHA Performing Organization Address City/[facility]/ZIP Co de Phone Number [facility] [place] [address] * POCT Glucose (05/09/2016 12:12 AM EST) Glucose, POC 127 65 - 199 mg/dL [facility] Comment: Supplemental ranges: <140 mg/dL before meals <180 mg/dL all other times of the day Blood specimen (specimen) 05/09/2016 12:12 AM EST 05/09/2016 12:12 AM EST Sonja Perez MD POINT OF CARE TEST Renetta LOPEZ Performing Organization Address [facility] Co de Phone Number [facility] [place] [address] * POCT Glucose (05/08/2016 10:07 PM EST) Glucose, POC 142 65 - 199 mg/dL [facility] Comment: Supplemental ranges: <140 mg/dL before meals <180 mg/dL all other times of the day Blood specimen (specimen) 05/08/2016 10:07 PM EST 05/08/2016 10:07 PM EST Sonja Perez MD POINT OF CARE TEST O JESSICA Performing Organization Address [facility] Co de Phone Number [facility] [place] [address] * POCT Glucose (05/08/2016 8:16 PM EST) Glucose, POC 156 65 - 199 mg/dL [facility] Comment: Supplemental ranges: <140 mg/dL before meals <180 mg/dL all other times of the day Blood specimen (specimen) 05/08/2016 8:16 PM EST 05/08/2016 8:16 PM EST Sonja Perez MD POINT OF CARE TEST O JESSICA Performing Organization Address [facility] Co de Phone Number [facility] [place] [address] * POCT Glucose (05/08/2016 6:55 PM EST) Glucose, POC 158 65 - 199 mg/dL [facility] Comment: Supplemental ranges: <140 mg/dL before meals <180 mg/dL all other times of the day Blood specimen (specimen) 05/08/2016 6:55 PM EST 05/08/2016 6:55 PM EST Sonja Perez MD POINT OF CARE TEST O JESSICA Performing Organization Address [facility]/ZIP Co de Phone Number [facility] [place] [address] * (ABNORMAL) POCT Glucose (05/08/2016 4:30 PM EST) Glucose, POC 235(H) 65 - 199 mg/dL [facility] Comment: Supplemental ranges: <140 mg/dL before meals <180 mg/dL all other times of the day Blood specimen (specimen) 05/08/2016 4:30 PM EST 05/08/2016 4:30 PM EST Sonja Perez MD POINT OF CARE TEST Renetta LOPEZ Performing Organization Address [facility] Co de Phone Number [facility] [place] [address] * (ABNORMAL) POCT Glucose (05/08/2016 1:42 PM EST) Glucose, POC 245(H) 65 - 199 mg/dL [facility] Comment: Supplemental ranges: <140 mg/dL before meals <180 mg/dL all other times of the day Blood specimen (specimen) 05/08/2016 1:42 PM EST 05/08/2016 1:42 PM EST Sonja Perez MD POINT OF CARE TEST O JESSICA Performing Organization Address [facility] Co de Phone Number [facility] [place] [address] * POCT Glucose (05/08/2016 11:46 AM EST) Glucose, POC 143 65 - 199 mg/dL [facility] Comment: Supplemental ranges: <140 mg/dL before meals <180 mg/dL all other times of the day Blood specimen (specimen) 05/08/2016 11:46 AM EST 05/08/2016 11:46 AM EST Sonja Perez MD POINT OF CARE TEST O JESSICA [facility] [place] [address] documented in this encounter Visit Diagnoses Diagnosis Morbid obesity- Primary Morbid obesity due to excess calories documented in this encounter Admitting Diagnoses Diagnosis Morbid obesity documented in this encounter Administered Medications Inactive Administered Medications - up to 3 most recent administrations Medication Order MAR Action Action Date Dose Rate Site atorvastatin (LIPITOR) tablet 40 mg 40 mg, Oral, EVERY EVENING, First dose on Thu05/14/16 at 1700, Until Discontinued, Routine Given 05/15/2016 5:39 PM EST 40 mg Given 05/14/2016 5:03 PM EST 40 mg barium sulfate (EZPAQUE) oral suspension 30 mL 30 mL, Oral, ONCE, 1 dose, On Thu05/13/16 at 1430, Routine Given 05/13/2016 1:45 PM EST 30 mLs calcium gluconate 1g in sodium chloride 0.9% 100mL 1 g, Intravenous, EVERY HOUR, 2 doses, First dose on Thu05/09/16 at 1530, Last dose on Thu05/09/16 at 1600, Administer over 60 Minutes, Warning Vesicant/Irritant Medication Given 05/09/2016 3:30 PM EST 1 g 100 mL/hr celecoxib (CeleBREX) capsule 100 mg 100 mg, Oral, 2 TIMES DAILY, First dose (after last reorder) on Thu05/16/16 at 1115, Until Discontinued, Routine Given 05/16/2016 12:37 PM EST 100 mg dextrose 50% injection 25-50 mL 25-50 mL (12.5-25 g), Intravenous, EVERY 1 HOUR PRN, Starting on Thu05/14/16 at 1122, Until Thu05/16/16 at 1659, Low blood sugar, For BG 50-70: 120 mL Juice or Regular (not diet) soda OR 12.5 gram (25 mL) Dextrose 50% IV OR, if no IV access, 1 mg Glucagon IM. Recheck BG in 30 minutes. May repeat juice, dextrose or glucagon once per episode For BG less than 50: 240 mL Juice or Regular (not diet) soda OR 25 grams (50 mL) Dextrose 50% IV OR, if no IV access, 1 mg Glucagon IM. Recheck BG in 30 minutes. May repeat juice, dextrose, or glucagon once per episode. To avoid extravasation, push Dextrose 50% SLOWLY (3 mL over 1 minute) in a patent, running IV, preferably a central line. For persistent hypoglycemia, consider longer-acting treatment for the duration of the active insulin., Routine erythromycin (EES) 250 mg/6.25 mL oral suspension 250 mg 250 mg, Oral, 4 TIMES DAILY WITH MEALS & NIGHTLY, First dose on Thu05/13/16 at 1730, Until Discontinued, STAT Given 05/13/2016 9:54 PM EST 250 mg Given 05/13/2016 6:30 PM EST 250 mg erythromycin (EES) 250 mg/6.25 mL oral suspension 250 mg 250 mg, Oral, 3 TIMES DAILY WITH MEALS, First dose (after last modification) on Thu05/14/16 at 1200, Until Discontinued, Please give BEFORE MEALS, Routine Given 05/16/2016 11:40 AM EST 250 mg Given 05/16/2016 8:53 AM EST 250 mg Given 05/15/2016 5:39 PM EST 250 mg gabapentin (NEURONTIN) capsule 300 mg 300 mg, Oral, 3 TIMES DAILY, First dose on Thu05/08/16 at 1630, Until Discontinued, Routine Given 05/16/2016 8:53 AM EST 300 mg Given 05/15/2016 9:41 PM EST 300 mg Given 05/15/2016 2:52 PM EST 300 mg glucagon (human recombinant) injection 1 mg 1 mg, Intramuscular, EVERY 1 HOUR PRN, Low blood sugar, Starting on Thu05/14/16 at 1122, Until Thu05/16/16 at 1659, For BG 50-70: 120 mL Juice or Regular (not diet) soda OR 12.5 gram (25 mL) Dextrose 50% IV OR, if no IV access, 1 mg Glucagon IM. Recheck BG in 30 minutes. May repeat juice, dextrose or glucagon once per episode For BG less than 50: 240 mL Juice or Regular (not diet) soda OR 25 grams (50 mL) Dextrose 50% IV OR, if no IV access, 1 mg Glucagon IM. Recheck BG in 30 minutes. May repeat juice, dextrose, or glucagon once per episode. To avoid extravasation, push Dextrose 50% SLOWLY (3 mL over 1 minute) in a patent, running IV, preferably a central line. For persistent hypoglycemia, consider longer-acting treatment for the duration of the active insulin. heparin (porcine) subcutaneous injection 5,000 Units 5,000 Units, Subcutaneous, EVERY 8 HOURS SCHEDULED, First dose on Thu05/08/16 at 1630, Until Discontinued, Routine Given 05/16/2016 5:55 AM EST 5,000 Units Right Lower Quadrant Given 05/15/2016 9:41 PM EST 5,000 Units L eft Lower Quadrant Given 05/15/2016 2:52 PM EST 5,000 Units HYDROmorphone (DILAUDID) 1 mg/mL FACILITY MANAGER 50 mL Intravenous, FACILITY MANAGER ONLY, Starting on Thu05/08/16 at 1430, Until Thu05/09/16 at 1437, Recovery (Recovery-Hospital Unit) New Syringe/Cartridge 05/08/2016 2:14 PM EST 50 mg HYDROmorphone (DILAUDID) syringe 0.2-0.4 mg 0.2-0.4 mg, Intravenous, EVERY 5 MIN PRN, Pain, Starting on Thu05/08/16 at 1323, Until Cristina 05/08/16 at 1554, For moderate pain (4-6) give: 0.2 mg every 5 minute prn For severe pain (7-10) give: 0.4 mg every 5 minutes prn Maximum dose: 4 mg per hour Hold for respiratory rate less than 10 per minute., PACU Recovery Given 05/08/2016 2:13 PM EST 0.4 mg insulin glargine (LANTUS) VIAL injection 12 Units 12 Units, Subcutaneous, EVERY 24 HOURS, First dose (after last modification) on Thu05/13/16 at 1230, Until Discontinued, Routine Given 05/13/2016 12:11 PM EST 12 Units insulin glargine (LANTUS) VIAL injection 15 Units 15 Units, Subcutaneous, EVERY 24 HOURS, First dose on Thu05/12/16 at 1230, Until Discontinued, Routine Given 05/12/2016 12:36 PM EST 15 Units insulin glargine (LANTUS) VIAL injection 18 Units 18 Units, Subcutaneous, ONCE, 1 dose, On Thu05/11/16 at 1400, Routine Given 05/11/2016 1:56 PM EST 18 Units insulin glargine (LANTUS) VIAL injection 20 Units 20 Units, Subcutaneous, ONCE, 1 dose, On Thu05/10/16 at 1345, Routine Given 05/10/2016 2:32 PM EST 20 Units insulin lispro (humaLOG) VIAL injection 0-7 Units 0-7 Units, Subcutaneous, 3 TIMES DAILY WITH MEALS, First dose (after last reorder) on Thu05/10/16 at 1700, Until Discontinued, MEAL ASSOCIATED Give 1 unit for every 12 grams carbohydrate. Hold if not eating, Routine Given 05/12/2016 6:04 PM EST 1 Units insulin lispro (humaLOG) VIAL injection 1-4 Units 1-4 Units, Subcutaneous, EVERY 4 HOURS SCHEDULED, First dose (after last reorder) on Thu05/10/16 at 1600, Until Discontinued, CORRECTION BOLUS Sensitive to insulin lean patient or total daily dose of all insulin needed to achieve glycemic control less than 30 units BG 140 - 160 Give 1 unit BG 161 - 200 Give 2 units BG 201 - 240 Give 3 units BG greater than 240, give 4 units and recheck BG in 2 hours. If BG remains greater than 240, repeat 4 units (no more than three times) & call for new basal insulin orders. If less than 240 after two hours, give no insulin and resume prior schedule., Routine Given 05/12/2016 8:03 PM EST 2 Units Given 05/12/2016 3:52 PM EST 3 Units Given 05/12/2016 11:50 AM EST 3 Units insulin lispro (humaLOG) VIAL injection 1-5 Units 1-5 Units, Subcutaneous, EVERY 4 HOURS SCHEDULED, First dose (after last modification) on Thu05/13/16 at 1215, Until Discontinued, CORRECTION BOLUS Custom BG 150 - 180 Give 1 units BG 181 - 210 Give 2 units BG 211 - 240 Give 3 units BG 241 - 270 Give 4 units BG greater than 270, give 5 units and recheck BG in 2 hours. If BG remains GREATER THAN 270, GIVE 5 units (no more than two times) & call for new basal insulin orders. If less than 270 after two hours, give no insulin and resume prior schedule., Routine Given 05/14/2016 3:45 AM EST 1 Units Given 05/14/2016 12:14 AM EST 5 Units Given 05/13/2016 7:57 PM EST 2 Units insulin lispro (humaLOG) VIAL injection 2-8 Units 2-8 Units, Subcutaneous, 3 TIMES DAILY BEFORE MEALS, First dose on Cristina 05/08/16 at 1420, Until Discontinued, CORRECTION BOLUS Moderate BG 140 - 160 Give 2 units BG 161 - 200 Give 4 units BG 201 - 240 Give 6 units BG greater than 240, give 8 units and recheck BG in 2 hours. If BG remains greater than 240, repeat 8 units (no more than three times) & call for new basal insulin orders. If less than 240 after two hours, give no insulin and resume prior schedule., Routine Given 05/08/2016 2:24 PM EST 8 Units insulin lispro (humaLOG) VIAL injection 2-8 Units 2-8 Units, Subcutaneous, EVERY 2 HOURS, First dose (after last modification) on [facility] 05/08/16 at 2000, Until Discontinued, CORRECTION BOLUS Moderate BG 140 - 160 Give 2 units BG 161 - 200 Give 4 units BG 201 - 240 Give 6 units BG greater than 240, give 8 units and recheck BG in 2 hours. If BG remains greater than 240, repeat 8 units (no more than three times) & call for new basal insulin orders. If less than 240 after two hours, give no insulin and resume prior schedule., Routine Given 05/10/2016 7:56 AM EST 2 Units Given 05/10/2016 6:13 AM EST 4 Units Given 05/09/2016 10:15 PM EST 4 Units INSULIN PUMP (PATIENT OWN) Subcutaneous, ONCE PRN, Other, No Documentation Needed on JUN. This is Placeholder Medication., Starting on Thu05/14/16 at 1122, 1 dose, Until Thu05/16/16 at 1659, Patient to administer per own pump. Before discontinuing the pump, obtain an order for an administer subcutaneous basal insulin., Medication Name: lispro (Humalog) iohexol (OMNIPAQUE) 300 mg/mL solution 80 mL 80 mL, Oral, ONCE, 1 dose, On Thu05/13/16 at 1430, Warning Vesicant/Irritant Medication , Routine Given 05/13/2016 1:45 PM EST 80 mLs ketorolac (TORADOL) injection 15 mg 15 mg, Intravenous, EVERY 6 HOURS SCHEDULED, 34 doses, First dose on Thu05/09/16 at 0830, Last dose on 05/17/16 at 1500, Routine Given 05/16/2016 8:53 AM EST 15 mg Given 05/15/2016 9:41 PM EST 15 mg Given 05/15/2016 2:52 PM EST 15 mg labetalol (NORMODYNE,TRANDATE) injection 20 mg 20 mg, Intravenous, ONCE, 1 dose, On Thu05/12/16 at 0930, Routine Given 05/12/2016 9:54 AM EST 20 mg lactated ringers infusion 1,000 mL 1,000 mL, at 100 mL/hr, Intravenous, CONTINUOUS, Starting on Cristina 05/08/16 at 1430, Until Thu05/09/16 at 1437, Recovery (Recovery-Hospital Unit) New Bag 05/09/2016 1:36 AM EST 1,000 mLs 100 mL/hr New Bag 05/08/2016 2:23 PM EST 1,000 mLs 100 mL/hr lactated ringers infusion 1,000 mL 1,000 mL, at 100 mL/hr, Intravenous, CONTINUOUS, Starting on Cristina 05/08/16 at 0945, Until Cristina 05/08/16 at 1554, Day of Surgery (Day of Procedure) New Bag 05/08/2016 9:31 AM EST 1,000 mLs 100 mL/hr levothyroxine (SYNTHROID) tablet 175 mcg 175 mcg, Oral, DAILY, First dose on Thu05/09/16 at 0600, Until Discontinued, Routine Given 05/16/2016 5:52 AM EST 175 mcg Given 05/15/2016 6:12 AM EST 175 mcg Given 05/14/2016 6:04 AM EST 175 mcg lisinopril (PRINIVIL;ZESTRIL) tablet 20 mg 20 mg, Oral, DAILY, First dose on Cristina 05/08/16 at 1800, Until Discontinued, Routine Given 05/16/2016 8:53 AM EST 20 mg Given 05/15/2016 8:20 AM EST 20 mg Given 05/14/2016 10:04 AM EST 20 mg LORazepam (ATIVAN) injection 0.5 mg 0.5 mg, Intravenous, EVERY 4 HOURS PRN, Starting on Thu05/08/16 at 1607, Until Thu05/16/16 at 0909, Anxiety, Nausea, Vomiting, HOLD FOR RR <12; HOLD FOR SOMNOLENCE, Routine Given 05/13/2016 9:3 1 PM EST 0.5 mg Given 05/13/2016 10:54 AM EST 0.5 mg Given 05/12/2016 7:52 PM EST 0.5 mg LORazepam (ATIVAN) injection 0.5 mg 0.5 mg, Intravenous, ONCE, 1 dose, On Thu05/13/16 at 1100, Prior to barium swallow study, Routine Given 05/13/2016 1:14 PM EST 0.5 mg magnesium oxide (MAG-OX) tablet 400 mg 400 mg, Oral, 2 TIMES DAILY, 2 doses, First dose on Thu05/09/16 at 2100, Last dose on Thu05/10/16 at 0900, CRUSH WELL, Routine Given 05/10/2016 9:29 AM EST 400 mg magnesium oxide (MAG-OX) tablet 400 mg 400 mg, Oral, 2 TIMES DAILY, First dose on Thu05/15/16 at 0900, Until Discontinued, Routine Given 05/16/2016 8:53 AM EST 400 mg Given 05/15/2016 9:41 PM EST 400 mg Given 05/15/2016 11:07 AM EST 400 mg magnesium sulfate 2 g in sterile water 50 mL 2 g, Intravenous, ONCE, 1 dose, On Thu05/09/16 at 0700, Administer over 120 Minutes Given 05/09/2016 7:48 AM EST 2 g 25 mL/hr L eft Arm magnesium sulfate 2 g in sterile water 50 mL 2 g, Intravenous, ONCE, 1 dose, On Thu05/13/16 at 0800, Administer over 120 Minutes Given 05/13/2016 9:35 AM EST 2 g 25 mL/hr melatonin tablet 9 mg 9 mg, Oral, NIGHTLY, First dose on Thu05/08/16 at 2100, Until Discontinued, Routine Given 05/15/2016 9:41 PM EST 9 mg Given 05/14/2016 9:18 PM EST 9 mg Given 05/13/2016 9:37 PM EST 9 mg nefazodone (SERZONE) tablet 100 mg 100 mg, Oral, 2 TIMES DAILY, First dose on Thu05/14/16 at 0900, Until Discontinued, Routine Given 05/16/2016 8:54 AM EST 100 mg Given 05/15/2016 9:41 PM EST 100 mg Given 05/15/2016 8:20 AM EST 100 mg nystatin (MYCOSTATIN) 100,000 unit/mL oral suspension 500,000 Units 500,000 Units, Oral, 4 TIMES DAILY, First dose on Thu05/09/16 at 1700, Until Discontinued, Routine Given 05/13/2016 9:54 PM EST 500,000 Units Given 05/13/2016 4:02 PM EST 500,000 Units Given 05/13/2016 12:11 PM EST 500,000 Units ondansetron (ZOFRAN) injection 4 mg 4 mg, Intravenous, EVERY 8 HOURS PRN, Starting on Cristina 05/08/16 at 1607, Until Thu05/16/16 at 0908, Nausea, May repeat times one in 30 minutes if ineffective. If multiple antiemetics are ordered, use ondanstron first, Recovery (Recovery-Hospital Unit) Given 05/14/2016 1:40 PM EST 4 mg Given 05/13/2016 5:48 PM EST 4 mg Given 05/13/2016 9:58 AM EST 4 mg ondansetron (ZOFRAN) tablet 4 mg 4 mg, Oral, EVERY 8 HOURS PRN, Starting on Cristina 05/08/16 at 1607, Until Thu05/16/16 at 0908, Nausea, Vomiting, If multiple antiemetics are ordered, use ondansetron first. PO Preferred. If patient unable to take PO, may give IV if ordered. May repeat times one in 45 minutes if ineffective., Recovery (Recovery-Hospital Unit), Routine Given 05/10/2016 12:50 PM EST 4 mg oxyCODONE (ROXICODONE) 5 mg/5 mL solution 5-10 mg 5-10 mg, Oral, EVERY 4 HOURS PRN, Starting on Cristina 05/08/16 at 1607, Until Thu05/16/16 at 1659, Pain, Routine Given 05/15/2016 9:41 PM EST 5 mg Given 05/13/2016 8:03 PM EST 10 mg Given 05/13/2016 5:11 AM EST 5 mg pantoprazole (PROTONIX) injection 20 mg 20 mg, Intravenous, 2 TIMES DAILY, First dose on Thu05/13/16 at 2100, Until Discontinued Given 05/15/2016 8:19 AM EST 20 mg Given 05/14/2016 9:17 PM EST 20 mg Given 05/14/2016 10:07 AM EST 20 mg pantoprazole (PROTONIX) injection 20 mg 20 mg, Intravenous, 2 TIMES DAILY, First dose on Cristina 05/15/16 at 2200, Until Discontinued Given 05/15/2016 9:56 PM EST 20 mg prochlorperazine (COMPAZINE) injection 10 mg 10 mg, Intravenous, EVERY 6 HOURS PRN, Starting on Cristina 05/08/16 at 1607, Until 05/10/16 at 1015, Nausea, Vomiting, If multiple antiemetics are ordered, use ondansetron first. If ondansetron ineffective use prochlorperazine. , Recovery (Recovery-Hospital Unit), Routine Given 05/08/2016 6:40 PM EST 10 mg prochlorperazine (COMPAZINE) injection 10 mg 10 mg, Intravenous, ONCE PRN, 1 dose, Starting on 05/11/16 at 1328, Until 05/11/16 at 1332, Nausea, Routine Given 05/11/2016 1:32 PM EST 10 mg prochlorperazine (COMPAZINE) injection 10 mg 10 mg, Intravenous, ONCE PRN, 1 dose, Starting on 05/12/16 at 0952, Until 05/12/16 at 1149, Nausea, Routine Given 05/12/2016 11:49 AM EST 10 mg prochlorperazine (COMPAZINE) injection 10 mg 10 mg, Intravenous, EVERY 6 HOURS PRN, Starting on 05/14/16 at 0754, Until Thu05/16/16 at 0908, Nausea, Routine Given 05/14/2016 3:18 PM EST 10 mg promethazine (PHENERGAN) injection 12.5 mg 12.5 mg, Intravenous, EVERY 30 MIN PRN, Nausea, Starting on Cristina 05/08/16 at 1348, 2 doses, Until Cristina 05/08/16 at 1554, VESICANT - Dilute with a minimum of 10 mL saline. LARGE VEIN only. Inject over 10 minutes into the farthest port of a running IV infusion. Remain with the patient and STOP infusion immediately if patient reports burning. Avoid extravasation. If multiple antiemetics are ordered, use ondansetron first and if ineffective use prochlorperazine second and if ineffective use promethazine., PACU Recovery Given 05/08/2016 2:07 PM EST 12.5 mg promethazine (PHENERGAN) injection 6.25 mg 6.25 mg, Intravenous, EVERY 6 HOURS PRN, Nausea, Starting on Thu05/13/16 at 2320, Until Thu05/14/16 at 0754, VESICANT - Dilute with a minimum of 10 mL saline. LARGE VEIN only. Inject over 10 minutes into the farthest port of a running IV infusion. Remain with the patient and STOP infusion immediately if patient reports burning. Avoid extravasation. Given 05/13/2016 11:39 PM EST 6.25 mg scopolamine (TRANSDERM-SCOP) 1.5 mg (1 mg over 3 days) patch 1 patch 1 patch, Transdermal, ONCE, 1 dose, On Cristina 05/08/16 at 1430, Recovery (Recovery-Hospital Unit), Routine Patch Applied 05/08/2016 2:30 PM EST 1 patch 01- Ear Behind (Left) sodium chloride 0.9 % flush 5 mL 5 mL, Intravenous, 2 TIMES DAILY, First dose on Cristina 05/08/16 at 2100, Until Discontinued, Recovery (Recovery-Hospital Unit), Routine Given 05/16/2016 8:57 AM EST 5 mLs Given 05/15/2016 9:52 PM EST 5 mLs Given 05/15/2016 9:00 AM EST 5 mLs sodium chloride 0.9 % flush 5-20 mL 5-20 mL, Intravenous, EVERY 1 MIN PRN, Starting on Cristina 05/08/16 at 1607, Until Thu05/16/16 at 1659, flush, Flush pertains to all indwelling lines. Flush per protocol found in the job aid using the link provided on this medication record., Recovery (Recovery-Hospital Unit), Routine Given 05/10/2016 9:27 PM EST 20 mLs Given 05/09/2016 9:14 PM EST 20 mLs Given 05/09/2016 8:59 PM EST 8 mLs documented in this encounter Active and Recently Administered Medications Times are shown in EST. Scheduled Medication Order 05/14/2016 05/15/2016 05/16/2016 atorvastatin (LIPITOR) tablet 40 mg 40 mg, Oral, EVERY EVENING, First dose on Thu05/14/16 at 1700, Until Discontinued, Routine 1703 (Given - Provider: Delaney Feng RN) 1739 (Given - Provider: Delaney Feng RN) celecoxib (CeleBREX) capsule 100 mg 100 mg, Oral, 2 TIMES DAILY, First dose (after last reorder) on Thu05/16/16 at 1115, Until Discontinued, Routine 1237 (Given - Provider: Danyelle James, ELSA) erythromycin (EES) 250 mg/6.25 mL oral suspension 250 mg 250 mg, Oral, 3 TIMES DAILY WITH MEALS, First dose (after last modification) on Thu05/14/16 at 1200, Until Discontinued, Please give BEFORE MEALS, Routine 1150 (Given - Provider: Delaney Feng RN)1703 (Given - Provider: Delaney Feng RN) 0820 (Given - Provider: Delaney Feng RN)1216 (Given - Provider: Delaney Feng RN)1739 (Given - Provider: Delaney Feng RN) 0853 (Given - Provider: Danyelle James, ELSA)1140 (Given - Provider: Danyelle James, ELSA) gabapentin (NEURONTIN) capsule 300 mg 300 mg, Oral, 3 TIMES DAILY, First dose on Thu05/08/16 at 1630, Until Discontinued, Routine 1006 (Given - Provider: Delaney Feng RN)1517 (Given - Provider: Delaney Feng RN)2118 (Given - Provider: Luis Orourke, ELSA) 0820 (Given - Provider: Delaney Feng, ELSA)1452 (Given - Provider: Delaney Feng, ELSA)2141 (Given - Provider: Gonsalo Yanez RN) 0853 (Given - Provider: Danyelle James RN) heparin (porcine) subcutaneous injection 5,000 Units 5,000 Units, Subcutaneous, EVERY 8 HOURS SCHEDULED, First dose on Thu05/08/16 at 1630, Until Discontinued, Routine 0604 (Given - Provider: Luis Orourke RN)1400 (Given - Provider: Delaney Feng RN - Comment: not reading multiple barcodes.)211 (Given - Provider: Luis Orourke RN) 0613 (Given - Provider: Luis Orourke RN)1452 (Given - Provider: Delaney Feng, ELSA)2141 (Given - Provider: Gonsalo Yanez, RN) 0555 (Given - Provider: Gonsalo Yanez, RN)1400 (Due) insulin lispro (humaLOG) VIAL injection 1-5 Units (CANCELED)(Linked Group 1) 1-5 Units, Subcutaneous, EVERY 4 HOURS SCHEDULED, First dose (after last modification) on Thu05/13/16 at 1215, Until Discontinued, CORRECTION BOLUS Custom BG 150 - 180 Give 1 units BG 181 - 210 Give 2 units BG 211 - 240 Give 3 units BG 241 - 270 Give 4 units BG greater than 270, give 5 units and recheck BG in 2 hours. If BG remains GREATER THAN 270, GIVE 5 units (no more than two times) & call for new basal insulin orders. If less than 270 after two hours, give no insulin and resume prior schedule., Routine 0014 (Given - Provider: Luis Orourke RN - Comment: cbg 303)0345 (Given - Provider: Luis Orourke RN - Comment: cbg 171)0800 (Not Given - Provider: Delaney Feng RN - Reason: Order parameters not met - Comment: FS 80) ketorolac (TORADOL) injection 15 mg (CANCELED) 15 mg, Intravenous, EVERY 6 HOURS SCHEDULED, 34 doses, First dose on Thu05/09/16 at 0830, Last dose on Thu05/17/16 at 1500, Routine 0345 (Not Given - Provider: Luis Orourke RN - Reason: Patient/family refused)1005 (Given - Provider: Delaney Feng, ELSA - Comment: lower back, upper back, shoulder area improving)1500 (Given - Provider: Delaney Feng, ELSA)2118 (Given - Provider: Luis Orourke RN) 0300 (Not Given - Provider: Luis Orourke RN - Reason: See comment - Comment: pt sleeping)0819 (Given - Provider: Delaney Feng RN)1452 (Given - Provider: Delaney Feng RN)2141 (Given - Provider: Gonsalo Yanez RN) 0300 (Not Given - Provider: Gonsalo Yanez RN - Reason: Patient/family refused)0853 (Given - Provider: Danyelle James RN) levothyroxine (SYNTHROID) tablet 175 mcg 175 mcg, Oral, DAILY, First dose on Thu05/09/16 at 0600, Until Discontinued, Routine 0604 (Given - Provider: Luis Orourke RN) 0612 (Given - Provider: Luis Orourke RN) 0552 (Given - Provider: Gonsalo Yanez RN) lisinopril (PRINIVIL;ZESTRIL) tablet 20 mg 20 mg, Oral, DAILY, First dose on Thu05/08/16 at 1800, Until Discontinued, Routine 1004 (Given - Provider: Delaney Feng RN) 08 (Given - Provider: Delaney Feng RN) 0853 (Given - Provider: Danyelle James RN) magnesium oxide (MAG-OX) tablet 400 mg 400 mg, Oral, 2 TIMES DAILY, First dose on Thu05/15/16 at 0900, Until Discontinued, Routine 1107 (Given - Provider: Delaney Feng RN - Comment: med not available)214 (Given - Provider: Gonsalo Yanez RN) 0853 (Given - Provider: Danyelle James RN) melatonin tablet 9 mg 9 mg, Oral, NIGHTLY, First dose on Thu05/08/16 at 2100, Until Discontinued, Routine 211 (Given - Provider: Luis Orourke RN) 214 (Given - Provider: Gonsalo Yanez RN) nefazodone (SERZONE) tablet 100 mg 100 mg, Oral, 2 TIMES DAILY, First dose on Thu05/14/16 at 0900, Until Discontinued, Routine 1006 (Given - Provider: Delaney Feng RN)2118 (Given - Provider: Luis Orourke RN) 0820 (Given - Provider: Delaney Feng RN)214 (Given - Provider: Gonsalo Yanez RN) 0854 (Given - Provider: Danyelle James RN) pantoprazole (PROTONIX) injection 20 mg (CANCELED) 20 mg, Intravenous, 2 TIMES DAILY, First dose on Thu05/13/16 at 2100, Until Discontinued 1007 (Given - Provider: Delaney Feng RN)2117 (Given - Provider: Luis Orourke, ELSA) 0819 (Given - Provider: Delaney Feng RN)2100 (Not Given - Provider: Gonsalo Yanez, ELSA - Reason: Contraindicated) pantoprazole (PROTONIX) injection 20 mg (CANCELED) 20 mg, Intravenous, 2 TIMES DAILY, First dose on Cristina 05/15/16 at 2200, Until Discontinued 2155 (Given - Provider: Gonsalo Yanez, ELSA) sodium chloride 0.9 % flush 5 mL 5 mL, Intravenous, 2 TIMES DAILY, First dose on Thu05/08/16 at 2100, Until Discontinued, Recovery (Recovery-Hospital Unit), Routine 1007 (Given - Provider: Delaney Feng RN)212 (Given - Provider: Luis Orourke RN) 0900 (Given - Provider: Delaney Feng RN)215 (Given - Provider: Gonsalo Yanez, ELSA) 0857 (Given - Provider: Danyelle James, ELSA) PRN Medication Order 05/14/2016 05/15/2016 05/16/2016 dextrose 50% injection 25-50 mL(Linked Group 2) 25-50 mL (12.5-25 g), Intravenous, EVERY 1 HOUR PRN, Starting on Thu05/14/16 at 1122, Until Thu05/16/16 at 1659, Low blood sugar, For BG 50-70: 120 mL Juice or Regular (not diet) soda OR 12.5 gram (25 mL) Dextrose 50% IV OR, if no IV access, 1 mg Glucagon IM. Recheck BG in 30 minutes. May repeat juice, dextrose or glucagon once per episode For BG less than 50: 240 mL Juice or Regular (not diet) soda OR 25 grams (50 mL) Dextrose 50% IV OR, if no IV access, 1 mg Glucagon IM. Recheck BG in 30 minutes. May repeat juice, dextrose, or glucagon once per episode. To avoid extravasation, push Dextrose 50% SLOWLY (3 mL over 1 minute) in a patent, running IV, preferably a central line. For persistent hypoglycemia, consider longer-acting treatment for the duration of the active insulin., Routine glucagon (human recombinant) injection 1 mg(Linked Group 2) 1 mg, Intramuscular, EVERY 1 HOUR PRN, Low blood sugar, Starting on Thu05/14/16 at 1122, Until Thu05/16/16 at 1659, For BG 50-70: 120 mL Juice or Regular (not diet) soda OR 12.5 gram (25 mL) Dextrose 50% IV OR, if no IV access, 1 mg Glucagon IM. Recheck BG in 30 minutes. May repeat juice, dextrose or glucagon once per episode For BG less than 50: 240 mL Juice or Regular (not diet) soda OR 25 grams (50 mL) Dextrose 50% IV OR, if no IV access, 1 mg Glucagon IM. Recheck BG in 30 minutes. May repeat juice, dextrose, or glucagon once per episode. To avoid extravasation, push Dextrose 50% SLOWLY (3 mL over 1 minute) in a patent, running IV, preferably a central line. For persistent hypoglycemia, consider longer-acting treatment for the duration of the active insulin. INSULIN PUMP (PATIENT OWN) Subcutaneous, ONCE PRN, Other, No Documentation Needed on JUN. This is Placeholder Medication., Starting on Thu05/14/16 at 1122, 1 dose, Until Thu05/16/16 at 1659, Patient to administer per own pump. Before discontinuing the pump, obtain an order for an administer subcutaneous basal insulin., Medication Name: lispro (Humalog) lidocaine (XYLOCAINE) 10 mg/mL (1 %) injection 3 mg 3 mg (0.3 mL), Subcutaneous, ONCE PRN, 1 dose, Starting on Cristina 05/08/16 at 1607, Until Thu05/16/16 at 1659, for discomfort with PIV insertion, Recovery (Recovery-Hospital Unit), Routine ondansetron (ZOFRAN) injection 4 mg (CANCELED)(Linked Group 3) 4 mg, Intravenous, EVERY 8 HOURS PRN, Starting on Thu05/08/16 at 1607, Until Thu05/16/16 at 0908, Nausea, May repeat times one in 30 minutes if ineffective. If multiple antiemetics are ordered, use ondanstron first, Recovery (Recovery-Hospital Unit) 1340 (Given - Provider: Delaney Feng, ELSA) ondansetron (ZOFRAN-ODT) oral disintegrating tablet 8 mg 8 mg, Oral, EVERY 8 HOURS PRN, Starting on Thu05/16/16 at 0849, Until Thu05/16/16 at 1659, Nausea, Routine oxyCODONE (ROXICODONE) 5 mg/5 mL solution 5-10 mg 5-10 mg, Oral, EVERY 4 HOURS PRN, Starting on Thu05/08/16 at 1607, Until Thu05/16/16 at 1659, Pain, Routine 2141 (Given - Provider: Gonsalo Yanez RN) prochlorperazine (COMPAZINE) injection 10 mg (CANCELED) 10 mg, Intravenous, EVERY 6 HOURS PRN, Starting on Thu05/14/16 at 0754, Until Thu05/16/16 at 0908, Nausea, Routine 1518 (Given - Provider: Delaney Feng RN) sodium chloride 0.9 % flush 5-20 mL 5-20 mL, Intravenous, EVERY 1 MIN PRN, Starting on Thu05/08/16 at 1607, Until Thu05/16/16 at 1659, flush, Flush pertains to all indwelling lines. Flush per protocol found in the job aid using the link provided on this medication record., Recovery (Recovery-Hospital Unit), Routine Linked Groups Order Group 1: POCT Fingerstick Glucose (CANCELED) Routine, EVERY 4 HOURS, First occurrence on Thu05/13/16 at 1200, Until Specified, Consider choosing EVERY 4 HOURS as frequency for: - Type 1 Diabetes - At least 24 hours after coming off an insulin drip - At least 24 hours after admission for DKA - Hypoglycemia unawareness - Patients who are otherwise unstable Select the same frequency for the correction bolus insulin order And insulin lispro (humaLOG) VIAL injection 1-5 Units (CANCELED)Jump to med 1-5 Units, Subcutaneous, EVERY 4 HOURS SCHEDULED, First dose (after last modification) on Thu05/13/16 at 1215, Until Discontinued, CORRECTION BOLUS Custom BG 150 - 180 Give 1 units BG 181 - 210 Give 2 units BG 211 - 240 Give 3 units BG 241 - 270 Give 4 units BG greater than 270, give 5 units and recheck BG in 2 hours. If BG remains GREATER THAN 270, GIVE 5 units (no more than two times) & call for new basal insulin orders. If less than 270 after two hours, give no insulin and resume prior schedule., Routine Group 2: dextrose 50% injection 25-50 mLJump to med 25-50 mL (12.5-25 g), Intravenous, EVERY 1 HOUR PRN, Starting on Thu05/14/16 at 1122, Until Thu05/16/16 at 1659, Low blood sugar, For BG 50-70: 120 mL Juice or Regular (not diet) soda OR 12.5 gram (25 mL) Dextrose 50% IV OR, if no IV access, 1 mg Glucagon IM. Recheck BG in 30 minutes. May repeat juice, dextrose or glucagon once per episode For BG less than 50: 240 mL Juice or Regular (not diet) soda OR 25 grams (50 mL) Dextrose 50% IV OR, if no IV access, 1 mg Glucagon IM. Recheck BG in 30 minutes. May repeat juice, dextrose, or glucagon once per episode. To avoid extravasation, push Dextrose 50% SLOWLY (3 mL over 1 minute) in a patent, running IV, preferably a central line. For persistent hypoglycemia, consider longer-acting treatment for the duration of the active insulin., Routine Or glucagon (human recombinant) injection 1 mgJump to med 1 mg, Intramuscular, EVERY 1 HOUR PRN, Low blood sugar, Starting on Thu05/14/16 at 1122, Until Thu05/16/16 at 1659, For BG 50-70: 120 mL Juice or Regular (not diet) soda OR 12.5 gram (25 mL) Dextrose 50% IV OR, if no IV access, 1 mg Glucagon IM. Recheck BG in 30 minutes. May repeat juice, dextrose or glucagon once per episode For BG less than 50: 240 mL Juice or Regular (not diet) soda OR 25 grams (50 mL) Dextrose 50% IV OR, if no IV access, 1 mg Glucagon IM. Recheck BG in 30 minutes. May repeat juice, dextrose, or glucagon once per episode. To avoid extravasation, push Dextrose 50% SLOWLY (3 mL over 1 minute) in a patent, running IV, preferably a central line. For persistent hypoglycemia, consider longer-acting treatment for the duration of the active insulin. Group 3: ondansetron (ZOFRAN) tablet 4 mg (CANCELED) 4 mg, Oral, EVERY 8 HOURS PRN, Starting on Cristina 05/08/16 at 1607, Until Thu05/16/16 at 0908, Nausea, Vomiting, If multiple antiemetics are ordered, use ondansetron first. PO Preferred. If patient unable to take PO, may give IV if ordered. May repeat times one in 45 minutes if ineffective., Recovery (Recovery-Hospital Unit), Routine Or ondansetron (ZOFRAN) injection 4 mg (CANCELED)Jump to med 4 mg, Intravenous, EVERY 8 HOURS PRN, Starting on Cristina 05/08/16 at 1607, Until Thu05/16/16 at 0908, Nausea, May repeat times one in 30 minutes if ineffective. If multiple antiemetics are ordered, use ondanstron first, Recovery (Recovery- Hospital Unit) documented in this encounter Care Teams Customer Associate Relationship Specialty Start Date End Date Nayla Miramontes MD [facility] ANABELLA [address] [place] [address] PCP - General 05/21/11 05/10/21 documented as of this encounter
[2024-03-07 18:59] LABS: ALT 32 U/L (14-59); AST 25 U/L (15-37); Albumin 3.5 g/dL (3.4-5.0); Alkaline Phosphatase 97 U/L (46-116); BUN 16 mg/dL (7-18); Bilirubin, Total 0.37 mg/dL (0.2-1.0); CREATININE 1.1 mg/dL (0.55-1.02); Calcium 8.6 mg/dL (8.5-10.1); Chloride 102 mmol/L (98-107); Estimated GFR 54.73 (mL/min/1.73m2); Glucose 315 mg/dL (74-106); Sodium 140 mmol/L (136-145); Total Protein 7.4 g/dL (6.4-8.2)
--- OUTSIDE RECORDS SUMMARY | 2024-03-07 18:59 | XMS_ITS | Encounter Summary ---
[facility] Address [facility] [place] [address] Care Team Providers Care Film And Video Graphics Designer Name Role Phone Nayla Miramontes MD Primary Care Provider [phone] Reason for Visit * Reason Onset Date Comments Medication Refill 02/26/2016 Encounter Details Date Type Department Care Team (Late st Contact Info) Description 02/26/2016 Refill [place] [phone] Lili Simmons, WANG Social History Tobacco Use Types Packs/Day Years [...] 2:30 PM EST Office Visit [place] [address] Alcides Bonilla MD [facility] [address] 04/06/2049 9:00 AM EST Hospital Encounter [place] [address] Harry Guerrero MD [facility] [place] [address] documented as of this encounter Visit Diagnoses Not on filedocumented in this encounter Care Teams Film And Video Graphics Designer Relationship Specialty Start Date End Date Nayla Miramontes MD [facility] ANABELLA LÓPEZ [facility] [address] [place] [address] PCP - General 05/21/11 05/10/21 documented as of this encounter
--- OUTSIDE RECORDS SUMMARY | 2024-03-07 18:59 | XMS_ITS | Encounter Summary ---
Author Organization [facility] [place] [address] Care Team Providers Care Racking Technician Name Role Phone Nayla Miramontes MD Primary Care Provider [phone] Encounter Details Date Type Department Care Team (Late st Contact Info) Description 11/23/2015 Telephone Endocrinology at [facility] [place] [phone] Hazel Calderon [facility] [place] [address] Social History Tobacco Use Types Packs/Day Years [...] encounter Miscellaneous Notes * Telephone Encounter - Hazel Oshea LD - 11/23/2015 4:24 PM EDT Called pt to see who she dropped sensor off with? There was an envelope in my mailbox and i'm not sure who put it there. The pt was instructed to mail the device back but it ended up in my mailbox. Device is very expensive so i'm trying to trouble shoot to see who she gave the envelope to and how it got in my mailbox outside my door to avoid devices being lost. Looking for a call back from pt explaining so we can make things better in the future. documented in this encounter Plan of Treatment Upcoming Encounters Date Type Department Care Team (Late st Contact Info) Description 05/17/2024 2:30 PM EST Office [place] [phone] Alcides Bonilla MD [facility] [place] [address] 04/06/2049 9:00 AM EST Hospital En[place] [phone] Harry Guerrero MD [facility] [place] [address] documented as of this encounter Visit Diagnoses Not on filedocumented in this encounter Care Teams Racking Technician Relationship Specialty Start Date End Date Nayla Miramontes MD [facility] [address] [place] [address] PCP - General 05/21/11 05/10/21 documented as of this encounter
--- OUTSIDE RECORDS SUMMARY | 2024-03-07 18:59 | XMS_ITS | Encounter Summary ---
[place] [address] Care Team Providers Care Manager Of Distribution Name Role Phone Nayla Miramontes MD Primary Care Provider [phone] Reason for Visit * Reason Onset Date Comments Other 11/01/2015 Follow Up Encounter Details Date Type Department Care Team (Late st Contact Info) Description 11/01/2015 [place] [id number] Lyubov Hutton RN Other (Follow Up) Social History Tobacco Use Types Packs/Day Years [...] encounter Miscellaneous Notes * Telephone Encounter - Lyubov Hutton RN - 11/01/2015 3:48 PM EDT I spoke with Roxann and she states she is seeing Endocrinology next week. Will forward message to Endocrinology as well. * Telephone Encounter - Lyubov Hutton RN - 11/01/2015 3:46 PM EDT ----- Message from Darryl Burgos MD sent at 10/31/2015 2:35 PM EDT ----- Hi, Could you please let this pt know that her Hba1c is actually getting worse, and has increased to 10.2? She needs to f/u with her vest front presser for better managing her diabetes? Thanks Darryl documented in this encounter Plan of Treatment Upcoming Encounters Date Type Department Care Team (Late st Contact Info) Description 05/17/2024 2:30 PM EST Office [place] [address] Alcides Bonilla MD [facility] [place] [address] 04/06/2049 9:00 AM EST Hospital Encounter [place] [phone] Harry Guerrero MD [facility] [place] [address] documented as of this encounter Visit Diagnoses Not on filedocumented in this encounter Care Teams Manager Of Distribution Relationship Specialty Start Date End Date Nayla Miramontes MD [facility] [address] [place] [address] PCP - General 05/21/11 05/10/21 documented as of this encounter
--- OUTSIDE RECORDS SUMMARY | 2024-03-07 18:59 | XMS_ITS | Encounter Summary ---
Author Organization [facility] Address [facility] [place] [address] Care Team Providers Care Cashier Assistant Name Role Phone Nayla Miramontes MD Primary Care Provider [phone] Encounter Details Date Type Department Care Team (Late st Contact Info) Description 01/01/2016 11:30 AM EDT - 01/01/2016 12:00 PM EDT Surgery [place] [address] Giuseppe Caban MD [facility] [place] [address] EGD WITH BIOPSY (WRVU 2.39) Social History [...] Sign Reading Time Taken Comments Blood Pressure 78/54 01/01/2016 12:00 PM EDT Pulse 62 01/01/2016 12:00 PM EDT Temperature - - Respiratory Rate 11 01/01/2016 12:00 PM EDT Oxygen Saturation 100% 01/01/2016 12:00 PM EDT Inhaled Oxygen Concentration - - Weight 93.9 kg (207 lb) 01/01/2016 11:24 AM EDT Height 167.6 cm (5' 6) 01/01/2016 11:24 AM EDT Body Mass Index 33.41 01/01/2016 11:24 AM EDT documented in this encounter Discharge Instructions * Discharge Instructions* Dread Cerna, RN - 01/01/2016 12:34 PM EDT You may have received medication before and/or during your procedure which effects judgement and reaction time. Do not drive, operate machinery, drink alcoholic beverages, or make important decisions for 24 hours. Be careful on stairs, as you may be unsteady on your feet. You may eat a regular diet as tolerated. Do not smoke if you are alone. IV site -- slight redness or tenderness is normal. You may use a warm compress. If tenderness and redness increases or foul drainage occurs please contact your M.D. Please call [phone] before 5 pm with problems, questions or concerns. After 5pm call [phone] and ask to speak with the nipping machine operator regional liaison. Discharge instructions reviewed with patient who expresses understanding. * Attachments The following attachments cannot be sent through Care Everywhere. * EGD (UPPER ENDOSCOPY) : POST-OP (YORUBA) documented in this encounter Medications at Time of Discharge Medication Sig Dispensed Refills Start Date End Date trimethobenzamide (TIGAN) 300 mg Capsule Take by mouth 4 times daily as needed. 08/08/2015 Diabetic Supplies, Miscellan. [facility] Inject 1 each subcutaneously 4 times daily. Faxed pump and supply order to [employer] at [phone]. Dx Code: 250.01 100 each 12 12/21/2015 Diabetic Supplies, Miscellan. [facility] faxed to [facility] 100 each 12 10/30/2015 bisacodyl (DULCOLAX) 10 mg SuppositoryIndicati ons:Other constipation Place 1 suppository rectally daily. 60 suppository 3 03/20/2015 lisinopril (PRINIVIL;ZESTRIL) 20 mg Tablet Take 1 tablet by mouth daily. 30 tablet 12/08/2013 MULTI-VITAMIN ORAL Take 1 tablet by mouth daily. Reported on 05/26/2016 CELECOXIB (CELEBREX ORAL) Take by mouth. 05/14/2016 Diabetic Supplies, Miscellan. [facility] CGM faxed to [employer]. 600 each 3 12/21/2015 01/27/2017 levothyroxine (SYNTHROID) 175 mcg Tablet Take 150 mcg by mouth daily. 05/12/2018 Adalimumab (HUMIRA PEN) 40 mg/0.8 mL Pen Injector Kit Inject 0.8 mLs subcutaneously every 14 days. 1 kit 5 07/26/2015 02/26/2016 metoclopramide (REGLAN) 10 mg TabletIndications:G astroparesis due to secondary diabetes Take 1 tablet by mouth every 6 hours. 120 tablet 1 07/24/2015 05/16/2016 polyethylene glycol (MIRALAX) 17 gram/dose Powder Take 34 g by mouth 2 times daily. 255 g 3 07/24/2015 05/12/2018 bethanechol (URECHOLINE) 10 mg Tablet Take 1 tablet by mouth 3 times daily. 90 tablet 3 07/12/2015 05/26/2016 lubiprostone (AMITIZA) 24 mcg Capsule Take 1 capsule by mouth 2 times daily (with meals). 60 capsule 11 07/12/2015 05/16/2016 esomeprazole (NEXIUM) 40 mg Capsule, Delayed Release(E.C.) Take 1 capsule by mouth 2 times daily (before meals). 60 capsule 11 06/06/2015 05/16/2016 trimethobenzamide (TIGAN) 300 mg CapsuleIndications: N&V (nausea and vomiting) Take 1 capsule by mouth 4 times daily as needed. 90 capsule 12 11/15/2014 02/11/2016 ondansetron (ZOFRAN-ODT) 8 mg Tablet, Rapid DissolveIndications :N&V (nausea and vomiting) Take 1 tablet by mouth every 8 hours as needed for Nausea. 20 tablet 11 11/15/2014 01/22/2024 imipramine (TOFRANIL) 10 mg Tablet Take 1 tablet by mouth nightly. After one week, take one tablet twice per day and increase to three times per day if not too tiring. 90 tablet 1 08/22/2014 02/14/2016 busPIRone (BUSPAR) 5 mg Tablet Take 5 mg by mouth 2 times daily. 02/11/2016 escitalopram oxalate (LEXAPRO) 20 mg Tablet Take 60 mg by mouth daily. 02/11/2016 insulin lispro (HUMALOG) injection Inject 65 Units subcutaneously continuous. Via insulin pump 06/23/2017 insulin glargine (LANTUS) 100 unit/mL vial injectionIndication s:type 1 diabetes mellitus Inject 18 Units subcutaneously daily. 1 vial = 10ml = 1,000 units Indications: Type 1 Diabetes Mellitus 10 mL 5 04/29/2011 01/23/2017 melatonin 3 mg Tab Take 9 mg by mouth nightly. 03/06/2017 documented as of this encounter H&P Notes * Giuseppe Caban MD - 01/01/2016 11:49 AM EDT Patient Name: Roxann Baxter Patient Age: 60 y.o. Birthdate: 1955 Admit date: 01/01/2016 Attending Physician: Giuseppe Caban MD Gastroenterology & Hepatology Pre-Procedure History and Physical Planned Procedure: EGD: Indication: follow-up of Huogh's from 2012 Patient Active Problem List Diagnosis Code ??? Diabetes mellitus E11.9 ??? Hypertension I10 ??? Hyperlipidemia E78.5 ??? Hypothyroidism E03.9 ??? Psoriasis L40.9 ??? Depression F32.9 ??? Iron deficiency E61.1 ??? Asthma J45.909 ??? Microcytic anemia D50.9 ??? GERD (gastroesophageal reflux disease) K21.9 ??? Hough's esophagus K22.70 ??? Diabetic retinopathy associated with type 1 diabetes mellitus E10.319 ??? DKA (diabetic ketoacidoses) E13.10 ??? Reflux esophagitis K21.0 ??? Gastritis K29.70 ??? Anasarca R60.1 ??? Cortical cataract H26.9 ??? 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 Vitreous hemorrhage of left eye H43.12 ??? PSC (posterior subcapsular cataract), bilateral H26.8 ??? Type 1 diabetes mellitus E10.9 ??? PDR (proliferative diabetic retinopathy) E11.359 ??? Nuclear sclerosis H25.10 ??? Proliferative diabetic retinopathy of both eyes.-mild resolving bilateral vitreous hemorrhages.No traction. Good PRP. E11.359 ??? Psoriatic arthritis.currently on Hydroxychloroquine. No signs of hydroxychloroquine retinopathy. Recommend close followup. L40.50 ??? Seborrheic keratosis L82.1 ??? Solar lentigo L81.4 ??? Xerosis cutis L85.3 ??? Pruritus L29.9 ??? Scoliosis M41.9 ??? Chronic low back pain M54.5, G89.29 ??? Dysphagia R13.10 ??? Constipation K59.00 ??? PDR (proliferative diabetic retinopathy) E11.359 ??? Diabetic retinopathy E11.319 ??? Vitreous hemorrhage of right eye H43.11 ??? IDDM (insulin dependent diabetes mellitus) E11.9, Z79.4 ??? Urinary incontinence R32 ??? Pseudophakia of both eyes (OD - 10/17/14, OS - 09/26/14) Z96.1 ??? Presence of insulin pump Z96.41 Medications: Reviewed in EDH Allergies Allergen Reactions ??? Codeine Phosphate Nausea Only ??? Propoxyphene N-Acetaminophen Nausea Only Social History/Family History: Reviewed in EDH. No changes Exam: Vitals: 01/01/16 1124 BP: 147/65 Pulse: 66 Resp: 16 GEN: NAD, AAOX3 HEENT: NC/AT dryMM, anicteric Chest: CTAB Heart: RRR, nl s1, s2 Abdomen: normal bowel sounds, soft, non tender Assessment and Plan: Proceed with EGD: ASA Grade: ASA 2 - Patient with mild systemic disease with no functional limitations Mallampati: II (soft palate, uvula, fauces visible) Sedation plan: Moderate Conscious sedation Risks and benefits of the procedure were discussed with the patient. Consent has been signed. documented in this encounter Plan of Treatment Upcoming Encounters Date Type Department Care Team (Late st Contact Info) Description 05/17/2024 2:30 PM EST Office Visit [place] [address] Alcides Bonilla MD [facility] [place] [address] 04/06/2049 9:00 AM EST Hospital Encounter [place] [address] Harry Guerrero MD [facility] [place] [address] documented as of this encounter Procedures Procedure Name Priority Date/Time Associated Diagnosis Comments SURGICAL PATHOLOGY REPORT Routine 01/01/2016 12:37 PM EDT SPECIMEN TO PATHOLOGY Routine 01/01/2016 12:37 PM EDT SPECIMEN TO PATHOLOGY Routine 01/01/2016 12:37 PM EDT SPECIMEN TO PATHOLOGY Routine 01/01/2016 12:37 PM EDT EGD WITH BIOPSY (WRVU 2.39) 01/01/2016 11:56 AM EDT BARRETTS FOLLOW UP POCT GLUCOSE Routine 01/01/2016 11:48 AM EDT documented in this encounter Results * Surgical Pathology Report (01/01/2016 12:37 PM EDT) Final Diagnosis [id number] ? Location: 4T; EA12; A The signing pathologist has (i) examined the relevant preparation(s) for the specimen(s) and (ii) rendered or confirmed the diagnosis(es). . ?Surgical Pathology DIAGNOSIS A - Duodenum, biopsy: Duodenal mucosa within normal limits, including preserved villous architecture. B - Gastric erythema, biopsy: Gastric fundic and antral gland mucosa with chronic nonspecific gastritis and foveolar hyperplasia. No H. pylori-like microorganism is seen. C - GE junction, biopsy: Squamous esophageal and cardiac mucosa with rare metaplastic goblet cells, active and chronic inflammation and foveolar hyperplasia. No dysplasia is seen. Electronically signed by: ??Ag GUO, Mariella Verified: ??01/03/2016 ?Pathologist CLINICAL INFORMATION Specimen Submitted: A - Duodenum, villous blunting rule out celiac B - gastric erythema and scattered erosions C - GE junction, ulcer and short tongue of hough ?? 's Clinical History: Reflux and the GERD, F/U of Hough ??'s Clinical Diagnosis: Same SPECIMEN PROCESSING A - Labeled/Fixative: Duodenum, formalin. Quantity/Size: Four, averaging 0.4 cm. Tissue Description: ??Soft, brandon-pink tissue ??. Sections/Processi ng: (T1) B - Labeled/Fixative: Gastric erythema, formalin. Quantity/Size: Five, 0.3-0.4 cm. Tissue Description: ??Soft, brandon-pink tissue ??. Sections/Processi ng: (T1) C - Labeled/Fixative: GE junction, formalin. Quantity/Size: Three, 0.2-0.3 cm. Tissue Description: ??Soft, brandon-pink tissue ??. Sections/Processi ng: (T1) ??ejr 01/03/2016 10:01 PM EDT [facility] GI Biopsy 01/01/2016 12:3 7 PM EDT 01/01/2016 12:37 PM EDT GI Biopsy 01/01/2016 12:3 7 PM EDT 01/01/2016 12:37 PM EDT GI Biopsy 01/01/2016 12:3 7 PM EDT 01/01/2016 12:37 PM EDT Giuseppe Caban MD PATHOLOGY/CYTOLOG Y ORDERABLES [facility] [place] [address] * Specimen to Pathology (surgical or derm) (01/01/2016 12:37 PM EDT) AP Specimen 01/01/2016 12:3 7 PM EDT 01/01/2016 12:37 PM EDT Narrative [facility] - 01/01/2016 12:37 PM EDT Specimen requisition ordered. ??Separate Pathology report to follow Giuseppe Caban MD PATHOLOGY/CYTOLOG Y ORDERABLES Performing Organization Address [facility] Co de Phone Number [facility] [place] [address] * Specimen to Pathology (surgical or derm) (01/01/2016 12:37 PM EDT) AP Specimen 01/01/2016 12:3 7 PM EDT 01/01/2016 12:37 PM EDT Narrative [facility] - 01/01/2016 12:37 PM EDT Specimen requisition ordered. ??Separate Pathology report to follow Giuseppe Caban MD PATHOLOGY/CYTOLOG Y ORDERABLES Performing Organization Address [facility] Co de Phone Number [facility] [place] [address] * Specimen to Pathology (surgical or derm) (01/01/2016 12:37 PM EDT) AP Specimen 01/01/2016 12:3 7 PM EDT 01/01/2016 12:37 PM EDT Narrative [facility] - 01/01/2016 12:37 PM EDT Specimen requisition ordered. ??Separate Pathology report to follow Giuseppe Caban MD PATHOLOGY/CYTOLOG Y ORDERABLES Performing Organization Address [facility] Co de Phone Number [facility] [place] [address] * POCT Glucose (01/01/2016 11:48 AM EDT) Glucose, POC 127 65 - 199 mg/dL [facility] Comment: Supplemental ranges: <140 mg/dL before meals <180 mg/dL all other times of the day Blood specimen (specimen) Capillary / Unknown 01/01/2016 11:48 AM EDT 01/01/2016 11:48 AM EDT Narrative Resulting Agency Comment Spec In Lab Giuseppe Caban MD POINT OF CARE DONN T ORDERABLES Performing Organization Address City/[facility]/ZIP Co de Phone Number [facility] [place] [address] documented in this encounter Visit Diagnoses Not on filedocumented in this encounter Administered Medications Inactive Administered Medications - up to 3 most recent administrations Medication Order MAR Action Action Date Dose Rate Site benzocaine (TOPEX) 20 % oral spray ONCE PRN, Starting on Thu01/01/16 at 1200, Until Thu01/01/16 at 1518, Intra-Operative (Intra-Procedure) Given 01/01/2016 12:00 PM EDT 2 each fentaNYL 50 mcg/mL multi-dose injection ONCE PRN, Starting on Thu01/01/16 at 1158, Until Thu01/01/16 at 1518, Intra-Operative (Intra-Procedure), Routine Given 01/01/2016 12:04 PM EDT 25 mcg Given 01/01/2016 12:01 PM EDT 50 mcg Given 01/01/2016 11:58 AM EDT 50 mcg midazolam (PF) (VERSED) 1 mg/mL multi-dose injection ONCE PRN, Starting on Thu01/01/16 at 1158, Until Thu01/01/16 at 1518, Intra-Operative (Intra-Procedure), Routine Given 01/01/2016 12:04 PM EDT 0.5 mg Given 01/01/2016 12:01 PM EDT 1 mg Given 01/01/2016 11:58 AM EDT 1 mg documented in this encounter Active and Recently Administered Medications Times are shown in EDT. PRN Medication Order 12/30/2015 12/31/2015 01/01/2016 benzocaine (TOPEX) 20 % oral spray (CANCELED) ONCE PRN, Starting on Thu01/01/16 at 1200, Until Thu01/01/16 at 1518, Intra-Operative (Intra-Procedure) 1200 (Given - Provid er: Dany Garnett RN) fentaNYL 50 mcg/mL multi-dose injection (CANCELED) ONCE PRN, Starting on Thu01/01/16 at 1158, Until Thu01/01/16 at 1518, Intra-Operative (Intra-Procedure), Routine 1158 (Given - Provid er: Dany Garnett RN)1201 (Given - Provider: Dany Garnett RN)1204 (Given - Provider: Dany Garnett RN) midazolam (PF) (VERSED) 1 mg/mL multi-dose injection (CANCELED) ONCE PRN, Starting on Thu01/01/16 at 1158, Until Thu01/01/16 at 1518, Intra-Operative (Intra-Procedure), Routine 1158 (Given - Provid er: Dany Garnett RN)1201 (Given - Provider: Dany Garnett RN)1204 (Given - Provider: Dany Garnett RN) documented in this encounter Care Teams Cashier Assistant Relationship Specialty Start Date End Date Nayla Miramontes MD [address] [facility] [address] [place] [address] PCP - General 05/21/11 05/10/21 documented as of this encounter
--- OUTSIDE RECORDS SUMMARY | 2024-03-07 18:59 | XMS_ITS | Encounter Summary ---
Author Organization [facility] Address [facility] [place] [address] Care Team Providers Care Golf [employer] Weigher Name Role Phone Nayla Miramontes MD Primary Care Provider [phone] Reason for Referral * Diagnostic Test (Routine) - Closed Specialty Diagnoses / Procedures Referred By Franklin laird Referred To Contact Radiology Diagnoses Dysphagia, unspecified type Hiatal hernia Procedures XR Fluoro Barium Swallow Giuseppe Caban MD [facility] [address] Referral ID Status Reason Start Date Expiration Date V isits Requested Visits Authorized [id number] Closed Specialty Service Requested 01/25/2016 01/24/2017 1 1 Encounter Details Date Type Department Care Team (Late st Contact Info) Description 01/25/2016 Orders [place] [address] Giuseppe Caban MD [facility] [address] Dysphagia, unspecified type; Hiatal hernia Social History Tobacco Use Types Packs/Day Years [...] 2:30 PM EST Office [place] [address] Alcides Bonilla MD [facility] [place] [address] 04/06/2049 9:00 AM EST Hospital En[place] [phone] Harry Guerrero MD [facility] [place] [address] documented as of this encounter Results * XR Fluoro Barium Swallow (02/11/2016 12:12 PM EST) Anatomical Region Laterality Modality N/A Radio Fluoroscop y Impressions 02/13/2016 11:25 AM EST 1. Moderately large hiatal hernia with no paraesophageal component and the GE junction above the level of the diaphragm. There is no obstruction between the herniated portion and the remainder of the stomach. I have personally reviewed the image(s) and the residents interpretation and agree with the findings, Jorgito Jones at 02/13/2016 11:25 AM Narrative 02/13/2016 11:25 AM EST EXAMINATION: XR FLUORO BARIUM SWALLOW CLINICAL HISTORY: dysphagia, hiatal hernia on EGD, rule out torsion or paraesophageal hernia TECHNIQUE: Double contrast barium swallow per the department protocol. Multiple fluoroscopic spot images of the esophagus and stomach were obtained after administration of thick and thin barium. A 13 mm barium pill was administered in the upright position. Fluoroscopy time 1 minute 24 seconds. COMPARISON: None FINDINGS: The patient was able to swallow barium without difficulty. The esophagus is tortuous but normal in caliber, no mass or stricture is seen. There is normal esophageal motility. A large hiatal hernia is visualized without a paraesophageal component. The gastroesophageal junction is above the diaphragm and patent. ??No obstruction is seen between the herniated portion and the remainder of the stomach. Intermittent gastroesophageal reflux is seen. Rapid sequence imaging of the pharynx shows prompt emptying of the barium from the oral cavity to the hypopharynx into the esophagus without narrowing or focal compression from the cricopharyngeus. No evidence of aspiration. A 13 mm barium tablet passes readily into the distal stomach. Procedure Note Jorgito Jones MD - 02/13/2016 EXAMINATION: XR FLUORO BARIUM SWALLOW CLINICAL HISTORY: dysphagia, hiatal hernia on EGD, rule out torsion or paraesophageal hernia TECHNIQUE: Double contrast barium swallow per the department protocol.Multiple fluoroscopic spot images of the esophagus and stomach were obtainedafter administration of thick and thin barium. A 13 mm barium pill wasadministered in the upright position. Fluoroscopy time 1 minute 24 seconds. COMPARISON: None FINDINGS: The patient was able to swallow barium without difficulty. The esophagusis tortuous but normal in caliber, no mass or stricture is seen. There isnormal esophageal motility. A large hiatal hernia is visualized without a paraesophageal component. The gastroesophageal junction is above thediaphragm and patent. No obstruction is seen between the herniated portion andthe remainder of the stomach. Intermittent gastroesophageal reflux is seen. Rapid sequence imaging of the pharynx shows prompt emptying of the bariumfrom the oral cavity to the hypopharynx into the esophagus without narrowing orfocal compression from the cricopharyngeus. No evidence of aspiration. A 13 mmbarium tablet passes readily into the distal stomach. IMPRESSION 1. Moderately large hiatal hernia with no paraesophageal component and theGE junction above the level of the diaphragm. There is no obstruction betweenthe herniated portion and the remainder of the stomach. I have personally reviewed the image(s) and the residents interpretationand agree with the findings, Jorgito Jones at 02/13/2016 11:25 AM Giuseppe Caban MD IMG FLUORO ORDERA BLES documented in this encounter Visit Diagnoses Diagnosis Dysphagia, unspecified type Hiatal hernia Diaphragmatic hernia without mention of obstruction or gangrene Dysphagia, unspecified type Hiatal hernia Diaphragmatic hernia without mention of obstruction or gangrene documented in this encounter Care Teams Golf [employer] Weigher Relationship Specialty Start Date End Date Nayla Miramontes MD [facility] [address] [place] [address] PCP - General 05/21/11 2 documented as of this encounter
--- OUTSIDE RECORDS SUMMARY | 2024-03-07 18:59 | XMS_ITS | Encounter Summary ---
Author Organization Replaced By [facility] Address [facility] Romel lantigua [place] [id number] Care Team Providers Care Social Media Developer Name Role Phone Nayla Miramontes MD Primary Care Provider [phone] Reason for Visit * Reason Comments Follow-up * Consultation (Routine) - Closed Specialty Diagnoses / Procedures Referred By Franklin laird Referred To Contact General Surgery Diagnoses hiatal hernia Procedures f/u to discuss surgery Giuseppe Caban MD [facility] [place] [address] Sonja Chavez MD [facility] [place] [address] Referral ID Status Reason Start Date Expiration Date Visits Re quested Visits Authorized [id number] Closed 01/25/2016 01/24/2017 1 1 Encounter Details Date Type Department Care Team (Late st Contact Info) Description 03/11/2016 10:40 AM EST Office [place] [address] Sonja Chavez MD [facility] [place] [address] Reflux esophagitis Social History Tobacco Use Types Packs/Day Years [...] - Inhaled Oxygen Concentration - - Weight 93.4 kg (206 lb) 03/11/2016 10:28 AM EST Height - - Body Mass Index 33.27 03/04/2016 3:09 PM EST documented in this encounter Progress Notes * Minerva Plascencia MD - 03/11/2016 10:40 AM EST Roxann Baxter is a 60 y.o. female, Body mass index is 33.27 kg/(m^2)., with Type I DM on continuous insulin via pump, who is known to Dr. Chavez since 2013. She initially presented for evaluation of severe GERD with esophagitis, as well as a moderate sized Hiatal Hernia, and her extensive workup and symptomatology are suggestive of both severe GERD (with esophagitis, non-dysplastic Giron's, and Type I HH, possible paraesophageal component), as well as esophageal dysmotility and mild gastroparesis. Her surgical options were reviewed at her [...] finalize surgical decision making regarding her GERD. At this visit she endorses continous symptoms of acid reflux despite sleeping on a ramp and BID PPI. She is interested in surgical intervention and after attending the Bariatric Information session, feels like the discussion often does not pertain to her because her reasons for choosing a laparoscopic gastric bypass would be different (GERD v obesity). Symptoms: ?? Hx of reflux x20+ years, of which she has been on a PPI [id number], ?? Reflux symptoms breath through often, despite [...] foodstuffs ?? Early satiety and post-prandial fullness Denies: SOB, formal emesis, hemetemesis Workup 02/2016 - Barium - Moderately large hiatal hernia with no paraesophageal component; GE junction above diaphragm. There is no obstruction between the herniated portion and the remainder of the stomach. 12/2015 - EGD - Tortuous esophagus, mod severe reflux and erosive esophagitis (BX = nondysplastic Barretts, active and chronic inflammation, foveolar hyperplasia), Large 8-10cm HH, poss twist/para component. Erythema antrum (BX = gastritis, foveolar hyperplasia).Duodenal mucosa (BX = no celiac disease, nl villous architecture). 09/2014 - HROEM- Hypotensive LES, severe esophagal motility using both standard and Haywood v 3.0 classification. 01/2014 - Barium - increasing height barium column 1min => 2min => 5min, demonstrative of reflux. Incomplete emptying of esophagus, air-fluid level, tapered narrowing at GE junction. Suggestive of achalasia. 01/2014 - HROEM - Incomplete relaxation of LES; severe esophogeal motility bordering on motor failure (2/11 swallows were partially peristaltic) - evolving achalasia ? 08/2013 - GES - 58% after 1hr, 17% at 4 hours (delayed emptying mildly) 07/2013 - HROEM - Unable to identify LES pressure / relaxation. Motor failure of body of the esophagus. 07/2013 - SBFT Severe dilation of esophagus, non emptying of esophagus, esophageal dysmotility, and large hiatal hernia. Findings compatible with esophageal achalasia 04/2012 - EGD - [place] Bar[place] (BX= non dysplastic Barretts ), hiatal hernia, multiple gastric polyps (BX = gastric fundic gland polyps) Food in the stomach likely due to diabetic gastroparesis PMHx DM I, with PDretinopathy; hx of DKA Poorly controlled glucose, A1C = 9.4 (02/2016); 10.2 (10/2015); 9.7 (07/2015) HTN, HLD Hypothyroidism GERD with esophagitis and Barretts Fecal incontinence and constipation Iron deficiency anemia Diabetic retinopathy, cataracts, retinal neovascularization, vitreous hemorrhage of eye, Anxiety, depression PSHx EGD (multiple) Retinal surgery Vitrectomy Finger surgery Cataract removal Exam: Mildly obese No apparent distress. PERRLA, EOMI Supple neck Chest clear, no WRR S1S2 no MRG Abdomen soft ND NT Extremity and Neuro exams are grossly normal. Assessment: Roxann Baxter is a 60 y.o. female Body mass index is 33.27 kg/(m^2). with longstanding history of progressive GERD and document dysmotility as well as a moderate sized HH, type I, possible paraesophageal component. While there was mention of achalasia during past workup, most recent barium swallow Feb 2016 reveals normal esophageal motility and a large hiatal hernia. Gastroesophageal reflux is alsoseen. A tablet passes readily into the distal stomach. We discussed both surgical options (fundiplication with HH repair) and rouxY gastric bypass in great detail and explained how each procedure reaches the goal of acid control and treatment of GERD. Given these findings, and given the fact there is no added advantage of a gastric bypass (BMI <35; no type II DM - she is type I), the patient, in concordance with our opinion seemed to prefer optingfor a laparoscopic fundoplication anti-reflux procedure with hiatal hernia repair. She understands that she is at higher risk for dysphagia post fundoplication given her documented dysmotility. Her gastroparesis was quantified as relatively mild in 2014 GES, however, this may also complicate her postoperative success, and we discussed what our approach would be to address this should be a problem. She was consented for anti-reflux surgery and will schedule the operation. Dr. Chavez was present for evaluation and counseling and formulation of this plan. * Sonja Chavez MD - 03/11/2016 10:40 AM EST I have seen the patient and reviewed Dr. Plascencia's above history and I agree with the details as written. The assessment and plan were formulated in discussion with me and I agree with them as documented. documented in this encounter Plan of Treatment Upcoming Encounters Date Type Department Care Team (Late st Contact Info) Description 05/17/2024 2:30 PM EST Office [place] [address] Alcides Bonilla MD [facility] [place] [address] 04/06/2049 9:00 AM EST Hospital [place] [address] Harry Guerrero MD [facility] [place] [address] documented as of this encounter Visit Diagnoses Diagnosis Reflux esophagitis documented in this encounter Care Teams Social Media Developer Relationship Specialty Start Date End Date Nayla Miramontes MD [facility] [address] [facility] [address] [place] [address] PCP - General 05/21/11 05/10/21 documented as of this encounter
--- OUTSIDE RECORDS SUMMARY | 2024-03-07 18:59 | XMS_ITS | Encounter Summary ---
Author Organization [facility] Address [facility] [place] [address] Care Team Providers Care Pediatric Clinical Nurse Specialist Name Role Phone Nayla Miramontes MD Primary Care Provider [phone] Encounter Details Date Type Department Care Team (Late Contact Info) Description 11/02/2015 Telephone Endocrinology at [place] [phone] Alyssa Brown LNA Social History Tobacco Use [...] 2:30 PM EST Office [place] [phone] Alcides Bonilla MD [facility] [address] 04/06/2049 9:00 AM EST Hospital Encounter [place] [phone] Harry Guerrero MD [facility] [place] [address] documented as of this encounter Visit Diagnoses Not on filedocumented in this encounter Care Teams Pediatric Clinical Nurse Specialist Relationship Specialty Start Date End Date Nayla Miramontes MD [address] [address] [place] [address] PCP - General 05/21/11 05/10/21 documented as of this encounter
--- OUTSIDE RECORDS SUMMARY | 2024-03-07 18:59 | XMS_ITS | Encounter Summary ---
Author Organization [facility] [place] [address] Care Team Providers Care Concrete Pipe Maker Name Role Phone Nayla Miramontes MD Primary Care Provider [phone] Reason for Visit * Auth/Cert Specialty Diagnoses / Procedures Referred By Franklin laird Referred To Contact Diagnoses Morbid obesity PARAESOPHAGEAL HERNIA Procedures PRO LAPAROSCOPY, SURG, REPAIR PARAESOPHAGEAL HERNIA, W/O IMPLANTATION OF MESH LAPAROSCOPIC PARAESOPHAGEAL HERNIA REPAIR W/FUNDOPLASTY, W/O MESH MODIFIER, HIATAL HERNIA Referral ID Status Reason Start Date Expiration Date Visits Re quested Visits Authorized [id number] 1 1 Encounter Details Date Type Department Care Team (Late st Contact Info) Description 05/08/2016 10:48 AM EST Anesthesia Event [place] [address] Jeanette Barajas MD [facility] [place] [address] Puma Maurice CRNA [facility] [place] [address] Anesthesia Record Procedure Summary Procedure Name Responsible Anesthesiologist Anesthesia Start Time Anesthesia Stop Time LAPAROSCOPIC PARAESOPHAGEAL HERNIA REPAIR W/FUNDOPLASTY, W/O MESH (WRVU 26.6) (Abdomen) Jeanette Barajas MD 05/08/16 1048 05/08/16 1348 Events Date Time Event Comment 05/08/2016 1012 1048 AN Verify 1048 Start 1049 An Start Data 1055 An Induction 1057 An Intubation 1100 Anesthesia Ready 1125 Procedure Start 1159 Break/Relief In SIERRA COLES MD 1222 Break/Relief Out 1246 Quick Note 60 Lithuanian bougi e passed orally under direct surgical observation. No complications noted. 1333 Extubation/LMA Out 1333 an stop data 1348 Recovery or ICU Handoff Lynda ent care was transferred to the destination unit staff after review of the patient's medical history, current anesthetic/surgical status and plan, according to the Provider Handoff Checklist. 1348 Stop Meds Name Total Midazolam 2 mg fentaNYL 200 mcg Propofol 150 mg Rocuronium 60 mg ePHEDrine 10 mg Ondansetron 8 mg Neostigmine 4 mg Glycopyrrolate 0.6 mg Succinylcholine 120 mg ceFAZolin (ANCEF) 2g in dextrose 5% 50 m L 2 g heparin (porcine) subcutaneous injection 5,000 Units 5,000 Units Ketorolac 15 mg Lactated Ringers 700 mL * Agents Name O2 Air N2O Sevoflurane (et) * Blood No blood administrations on file. Lines, Drains, and Airways Type Details Placement Removal Incision 05/16/13; eye; still in system from 2013; 05/15/16; 22505/16/13 0000 by Roxann Ridley RN 05/15/16 2253 by Gonsalo Yanez RN Incision 09/26/14; eye; 12/02 (LDA cleanup utility RA#[id number]); 1715 (LDA cleanup utility RA#[id number]) 09/26/14 0000 by Sarika Ryder 12/02/21 1715 by Marcellus Alvarez Incision 05/08/16; abdomen; laparoscopic punctures (specify); Multiple trocar sites.; 12/02/21 (LDA cleanup utility RA#[id number]); 1715 (LDA cleanup utility RA#[id number]) 05/08/16 0000 by Sierra Calderon RN 12/02/21 1715 by Marcellus Alvarez (RETIRED) Peripheral IV Line - Single Lumen 05/08/16; 0854; metacarpal vein (top of hand), right; outside hospital; lumen/catheter not patent; 05/10/16; 204505/08/1654 by Delaney Morse RN 05/10/162045 by Delaney Morse, ELSA (RETIRED) Peripheral IV Line - Single Lumen 05/08/16; 929; metacarpal vein (top of hand), left; [id number] catheter system; 20 gauge, 1 in length; intradermal injection, tolerated well, age-appropriate response; 1; metacarpal vein (top of hand), right; red; 05/10/16; 211905/08/16929 by Nadya Phillips RN 05/10/162119 by Dalila Kaba RN ETT Mask Ventilation: Ea sy (1); ETT Type: Cuffed, Oral; ETT Size: 7 mm; Mac Blade: 3; Indirect: Video; Notes: Asleep, Pre-O2, Cricoid Pressure, Stylette, RSI; Attempts: 1; Laryngoscopy Grade: 1; ETT Placement Verified By: Auscultation, Capnometry, Visual; Secured at Teeth: 22 cm; Inserted by: HERON HUNTER under supervision of JOHNNY Maurice and MD Karl; Removal Date: 05/08/16; Removal Time: 1333 05/08/16 1102 by Puma Maurice CRNA 05/08/16 1333 by Puma Maurice CRNA documented in this encounter Social History Tobacco Use Types Packs/Day Years [...] on file documented as of this encounter OR Notes * Anesthesia Postprocedure Evaluation - Jeanette Barajas MD - 05/08/2016 3:02 PM EST [facility] [place]esthesiology Post-procedure Note Patient: Roxann Baxter Procedure Summary Date Anesthesia Start Anesthesia Stop Room / Location 05/08/16 1048 1348 [facility] OR 12 / [facility] OR Procedure Diagnosis Surgeon Responsible Provider LAPAROSCOPIC PARAESOPHAGEAL HERNIA REPAIR W/FUNDOPLASTY, W/O MESH (WRVU 26.6) (N/A Abdomen); MODIFIER, HIATAL HERNIA (N/A Abdomen) (PARAESOPHAGEAL HERNIA ) Sonja Chavez MD Procopio, Marcia A, MD All Anesthesia Providers: Anesthesiologist: Jeanette Barajas MD AUTOMOTIVE LOT ATTENDANT: Puma Maurice CRNA Last (1hr) Vitals: BP 144/46 (05/08/16 1410) Temp Pulse 67 (05/08/16 1410) Resp 12 (05/08/16 1410) SpO2 99 % (05/08/16 1410) [facility] Level of Consciousness: Awake and Alert Pain Management: Satisfactory Analgesia PONV: None Cardiovascular Status: At Baseline and Hemodynamically Stable Respiratory Status: Supplemental O2 (NC or FM) Postoperative Fluid Status: Intravascular EUvolemia Possible Anesthetic Complications: NONE apparent at time of evaluation Final Primary Anesthesia Type: General (The anesthetic type performed was the same as planned.) Comments: Initially vomiting was an issue and we treated it with phenergan and scop patch with goodresult. JEANETTE BARAJAS MD * Anesthesia Preprocedure Evaluation - Jeanette Barajas MD - 05/08/2016 10:08 AM EST Pre-Anesthesia Evaluation for: Roxann Baxter a 60 y.o. female. Procedure(s): LAPAROSCOPIC PARAESOPHAGEAL HERNIA REPAIR W/FUNDOPLASTY, W/O MESH (WRVU 26.6) MODIFIER, HIATAL HERNIA Patient Active Problem List Diagnosis ??? MDD (major depressive disorder), recurrent episode, moderate ??? Presence of insulin pump [employer] ??? Pseudophakia of both eyes (OD [...] type 1 diabetes mellitus ??? Diabetes mellitus Dx replacement utility run on deactivated IMO Dx [id number] Past Medical History Diagnosis Date ??? Anxiety ??? Arthritis ??? Asthma ??? Cortical cataract 05/05/2011 ??? Diabetes mellitus ??? GERD (gastroesophageal reflux disease) ??? Hyperlipidemia ??? Hypertension ??? PDR (proliferative diabetic retinopathy) 05/25/2011 ??? Skin disease ??? Thyroid disease Past Surgical History Procedure Laterality Date ??? Upper gi endoscopy, exam 04/25/2011 UPPER GI ENDOSCOPY performed by MARIA DEL CARMEN BOB at [facility] ENDOSCOPY ??? Pro upper gi endoscopy, biopsy 04/27/2012 UPPER GASTROINTESTINAL ENDOSCOPY,WITH BIOPSY SINGLE OR MULTIPLE performed by Luis Bucio MD [facility] ENDOSCOPY ??? Retinal laser surgery ??? Pro vitrectomy,focal laser rx retina 05/16/2013 OS VITRECTOMY, PARS PLANA, LASER performed by Dany Young MD at [facility] MAIN OR ??? Finger surgery ??? Pro colonoscopy, diagnostic 09/13/2013 COLONOSCOPY, DIAGNOSTIC performed by Marie Zamora MD at [facility] ENDOSCOPY ??? Pro colonoscopy, diagnostic 01/10/2014 COLONOSCOPY, DIAGNOSTIC performed by Marie Zamora MD at [facility] ENDOSCOPY ??? Pro upper gi endoscopy, diagnostic N/A 04/24/2014 EGD, UPPER GI ENDOSCOPY performed by Harry Guerrero MD at [facility] ENDOSCOPY ??? Cataract removal Left 09/26/2014 Dr Villalba ??? Cataract removal 01/17/2015 OD - Dr Villalba ??? Pro upper gi endoscopy, biopsy N/A 01/01/2016 EGD WITH BIOPSY performed by Giuseppe Caban MD at [facility] ENDOSCOPY Social History Substance Use Topics ??? Smoking status: Former Smoker Types: Cigarettes Quit date: 05/06/1984 ??? Smokeless tobacco: Never Used ??? Alcohol use No Comment: once a year History Drug Use No Allergies Allergen Reactions ??? Codeine Phosphate Nausea Only ??? Propoxyphene N-Acetaminophen Nausea Only Medications: MAR and/or home medications have been reviewed. Physical Exam: Vitals: 05/08/16 0911 BP: 113/53 Pulse: 65 Temp: 36.8 ??C (98.2 ??F) There is no height or weight on file to calculate BMI. Height: 167.6 cm (5' 6) Airway Assessment: Mallampati: II TM distance: >3 FB Neck ROM: full Cardiovascular Assessment: Pulmonary Assessment: Dental Assessment: - normal exam Misc Assessment: Patient is wearing No contact(s). IV access: Peripheral line Anesthesia Plan: ASA 3 general, with a(n) intravenous induction 60 year old female with multiple medical problems presents for lap paraesophageal hernia repair. DM1 for 40 years with retinopathy, gastroparesis. Insulin pump in place with basal rate .82u per hour. Plan to remove pump prior to surgery and use insulin pump with frequent BS checks intra-op HTN. No history of IL or stroke Asthma well controlled and not on meds GERD poorly controlled Major depressive disorder in the past NPO after MN Allergies as listed above FS this morning 177 Plan RSI/GETA. Grade 1 intubation with glide last time. Region - Other Informed Consent: Anesthetic plan and risks discussed with patient. Plan discussed with AUTOMOTIVE LOT ATTENDANT. PAT Staff Note documented in this encounter Plan of Treatment Upcoming Encounters Date Type Department Care Team (Late st Contact Info) Description 05/17/2024 2:30 PM EST Office [place] [address] Alcides Bonilla MD [facility] [place] [address] 04/06/2049 9:00 AM EST Hospital Encounter Gastroenterology at [facility] [place] [phone] Harry Guerrero MD [facility] [place] [address] documented as of this encounter Visit Diagnoses Not on filedocumented in this encounter Administered Medications Inactive Administered Medications - up to 3 most recent administrations Medication Order MAR Action Action Date Dose Rate Site ceFAZolin (ANCEF) 2g in dextrose 5% 50 mL 2 g, Intravenous, EVERY 3 HOURS, 1 dose, First dose on Cristina 05/08/16 at 0945, Administer over 30 Minutes, Day of Surgery (Day of Procedure), Indication for (Active or Suspected): Prophylaxis Given 05/08/2016 11:00 AM EST 2 g ePHEDrine 5 mg/mL multi-dose injection PRN, Starting on Cristina 05/08/16 at 1112, Until Cristina 17 at 1348, Anesthesia Intra-op, Routine Given 05/08/2016 11:12 AM EST 10 mg fentaNYL 50 mcg/mL multi-dose injection PRN, Starting on Cristina 17 at 1055, Until Cristina 217 at 1348, Pain, Anesthesia Intra-op, Routine Given 05/08/2016 11:50 AM EST 50 mcg Given 05/08/2016 11:30 AM EST 50 mcg Given 05/08/2016 11:22 AM EST 50 mcg glycopyrrolate (ROBINUL) multi-dose injection PRN, Starting on Cristina 17 at 1323, Until Cristina 217 at 1348, Anesthesia Intra-op, Routine Given 05/08/2016 1:23 PM EST 0.6 mg heparin (porcine) subcutaneous injection 5,000 Units 5,000 Units, Subcutaneous, ONCE, 1 dose, On Cristina 17 at 0945, Day of Surgery (Day of Procedure), Routine Given 05/08/2016 11:00 AM EST 5,000 U nits ketorolac (TORADOL) injection PRN, Starting on Cristina 05/08/16 at 1343, Until Cristina 17 at 1349, Pain, Anesthesia Intra-op, Routine Given 05/08/2016 1:43 PM EST 15 mg lactated ringers infusion CONTINUOUS PRN, Starting on Cristina 217 at 1048, Until Cristina 17 at 1348, Anesthesia Intra-op New Bag 05/08/2016 10:48 AM EST midazolam (PF) (VERSED) 1 mg/mL multi-dose injection PRN, Starting on Cristina 217 at 1048, Until Cristina 05/08/16 at 1348, Sleep, Anesthesia Intra-op, Routine Given 05/08/2016 10:48 AM EST 2 mg neostigmine (PROSTIGMINE) multi-dose injection PRN, Starting on Cristina 217 at 1323, Until Cristina 05/08/16 at 1348, Anesthesia Intra-op, Routine Given 05/08/2016 1:23 PM EST 4 mg ondansetron (ZOFRAN) injection PRN, Starting on Cristina 217 at 1323, Until Cristina 05/08/16 at 1348, Nausea, Anesthesia Intra-op, Routine Given 05/08/2016 1:23 PM EST 8 mg propofol (DIPRIVAN) 10 mg/mL bolus injection (Anesthesia) PRN, Starting on Cristina 217 at 1055, Until Cristina 17 at 1348, Anesthesia Intra-op Given 05/08/2016 10:55 AM EST 150 mg rocuronium (ZEMURON) multi-dose injection PRN, Starting on Cristina 17 at 1055, Until Cristina 17 at 1348, Anesthesia Intra-op, Routine Given 05/08/2016 11:32 AM EST 10 mg Given 05/08/2016 11:22 AM EST 20 mg Given 05/08/2016 10:55 AM EST 30 mg succinylcholine (ANECTINE) injection PRN, Starting on Cristina 17 at 1055, Until Cristina 17 at 1348, Anesthesia Intra-op, Routine Given 05/08/2016 10:55 AM EST 120 mg documented in this encounter Care Teams Concrete Pipe Maker Relationship Specialty Start Date End Date Nayla Miramontes MD [address] [place] [address] PCP - General 05/21/11 05/10/21 documented as of this encounter
--- OUTSIDE RECORDS SUMMARY | 2024-03-07 18:59 | XMS_ITS | Encounter Summary ---
Author Organization [facility] Address [facility] [place] [address] Care Team Providers Care Roller Helper Name Role Phone Nayla Miramontes MD Primary Care Provider [phone] Reason for Referral * Diagnostic Test (Routine) - Closed Specialty Diagnoses / Procedures Referred By Franklin laird Referred To Contact Radiology Diagnoses Dysphagia, unspecified type Hiatal hernia Procedures XR Fluoro Barium Swallow Giuseppe Caban MD [facility] [place] [address] Referral ID Status Reason Start Date Expiration Date V isits Requested Visits Authorized [id number] Closed Specialty Service Requested 01/25/2016 01/24/2017 1 1 Reason for Visit * Auth/Cert Specialty Diagnoses / Procedures Referred By Franklin laird Referred To Contact Diagnoses MDD (major depressive disorder), recurrent episode, moderate MDD Referral ID Status Reason Start Date Expiration Date Visits Re quested Visits Authorized [id number] 1 1 Encounter Details Date Type Department Care Team (Late st Contact Info) Description 02/11/2016 10:42 AM EST - 02/11/2016 4:44 PM EST Hospital Encounter XRay at [address] [place] [address] Giuseppe Caban MD [facility] [place] [address] Dysphagia, unspecified type; Hiatal hernia Discharge Disposition: Home Social History Tobacco Use [...] daily as needed. 08/08/2015 Diabetic Supplies, [facility]. [facility] [place] 1 each subcutaneously 4 times daily. Faxed pump and supply order to [employer] at [phone]. Dx Code: 250.01 100 each 12 12/21/2015 Diabetic Supplies, Miscellan. [facility] MNF faxed to [facility] 100 each 12 10/30/2015 bisacodyl (DULCOLAX) 10 mg SuppositoryIndicati ons:Other constipation Place 1 suppository rectally daily. 60 suppository 3 03/20/2015 lisinopril (PRINIVIL;ZESTRIL) 20 mg Tablet Take 1 tablet by mouth daily. 30 tablet 12/08/2013 MULTI-VITAMIN ORAL Take 1 tablet by mouth daily. Reported on 05/26/2016 nefazodone (SERZONE) 100 mg Tablet Take 1 tablet by mouth 2 times daily. 30 tablet 02/14/2016 01/22/2024 CELECOXIB (CELEBREX ORAL) Take by mouth. 05/14/2016 Diabetic Supplies, [facility]isc[facility]an. [facility] each 3 12/21/2015 01/27/2017 levothyroxine (SYNTHROID) [...] (before meals). 60 capsule 11 06/06/2015 05/16/2016 ondansetron (ZOFRAN-ODT) 8 mg Tablet, Rapid DissolveIndications [...] too tiring. 90 tablet 1 08/22/2014 02/14/2016 insulin lispro (HUMALOG) injection Inject 65 Units [...] 2:30 PM EST Office [place] [address] Alcides Bonilla MD [facility] [address] 04/06/2049 9:00 AM EST Hospital Encounter [place] [address] Harry Guerrero MD [facility] [place] [address] documented as of this encounter Procedures Procedure Name Priority Date/Time Associated Diagnosis Comments XR FLUORO BARIUM SWALLOW (SINGLE CONTRAST) Routine 02/11/2016 12:12 PM EST Dysphagia, unspecified type Hiatal hernia documented in this encounter Results * XR Fluoro Barium [...] obstruction or gangrene documented in this encounter Administered Medications Inactive Administered Medications - up to 3 most recent administrations Medication Order MAR Action Action Date Dose Rate Site barium sulfate (E-Z DISK) tablet 700 mg 700 mg, Oral, ONCE, 1 dose, On Thu02/11/16 at 1245, Routine Given 02/11/2016 12:45 PM EST 700 mg barium sulfate (E-Z-HD) 98 % oral suspension 50 mL 50 mL, Oral, ONCE, 1 dose, On 02/11/16 at 1245, Routine Given 02/11/2016 12:45 PM EST 50 mLs barium sulfate (EZPAQUE) oral suspension 50 mL 50 mL, Oral, ONCE, 1 dose, On 02/11/16 at 1245, Routine Given 02/11/2016 12:45 PM EST 50 mLs documented in this encounter Care Teams Roller Helper Relationship Specialty Start Date End Date Nayla Miramontes MD [address] [facility] 1 [place] [address] PCP - General 05/21/11 05/10/21 documented as of this encounter
--- OUTSIDE RECORDS SUMMARY | 2024-03-07 18:59 | XMS_ITS | Encounter Summary ---
Author Organization [facility] [place] [address] Care Team Providers Care Commercial Loan Officer Name Role Phone Nayla Miramontes MD Primary Care Provider [phone] Reason for Visit * Reason Comments Diabetes Encounter Details Date Type Department Care Team ([facility] st Contact Info) Description 11/08/2015 8:00 AM EDT Office Visit Endocrinology at [place] [address] Hazel Calderon, [facility] [address] Diabetes mellitus type 1, uncontrolled; Presence of insulin pump Social History Tobacco Use Types Packs/Day Years [...] Sign Reading Time Taken Comments Blood Pressure 126/58 11/08/2015 7:55 AM EDT Pulse 63 11/08/2015 7:55 AM EDT Temperature - - Respiratory Rate - - Oxygen Saturation - - Inhaled Oxygen Concentration - - Weight 94.1 kg (207 lb 6.4 oz) 11/08/2015 7:55 A M EDT Height 167.6 cm (5' 6) 11/08/2015 7:55 AM EDT Body Mass Index 33.48 11/08/2015 7:55 AM EDT documented in this encounter Patient Instructions * Patient Instructions* Hazel Oshea LD - 11/08/2015 8:00 AM EDT Mail back ipro sensor and transmitter documented in this encounter Progress Notes * Hazel Oshea LD - 11/08/2015 8:00 AM EDT Diabetes Education and iPro2 Continuous Glucose Monitoring System Education Visit High [employer] Mathematics Teacher/Dietitian: ANNIKA Wright RDN Roxann Baxter is a 60 y.o. female with type 1 diabetes in poor control. Has Retinopathy, gastroparesis, arthritis. The trial today is to help the pt have better control of diabetes to lower her A1c. Recent Labs 10/30/15 1039 07/24/15 1117 05/16/15 1335 HA1C 10.2* 9.7* 9.4* Date of diagnosis: 1972 DIABETES REGIMEN: Medtronic Pump- Pt reminded to change infusion set every 3 days- pt is not currently doing this. Pt is here for a 30 minute diabetes education session. The Pt will be trialing an iPro2 Continuous Glucose Monitoring System. The sensor was inserted and the transmitter was placed. S/N: [id number] Pt agrees to keep track of food intake, insulin doses and blood sugars on a written log while wearing the sensor continuously for seven days. Pt will return the iPro2 Sensor kit by mailing it in and the information will be downloaded and given to the Endocrinology diabetes provider. We reviewed: ??? iPro2 CGM measures Interstitial Fluid Glucose monitoring which is not the same as blood glucosemonitoring ??? How to calibrate glucose sensor with 4 x per day BG monitoring ??? Need to do calibration no further apart than 12 hours for accuracy ??? Need to use consistent BG meter for all calibrations Pt needs these results for insurance. This was a 30 minute education session. documented in this encounter Plan of Treatment Upcoming Encounters Date Type Department Care Team (Late st Contact Info) Description 05/17/2024 2:30 PM EST Office [place] [address] Alcides Bonilla MD [facility] [place] [address] 04/06/2049 9:00 AM EST Hospital Encounter Gastroenterology at [place] [phone] Harry Guerrero MD [facility] [place] [address] documented as of this encounter Visit Diagnoses Diagnosis Diabetes mellitus type 1, uncontrolled Type I (juvenile type) diabetes mellitus without mention of complication, uncontrolled Presence of insulin pump Insulin pump status documented in this encounter Care Teams Commercial Loan Officer Relationship Specialty Start Date End Date Nayla Miramontes MD [facility] [address] L[address]PEZ [facility] 1 [place] [address] PCP - General 05/21/11 05/10/21 documented as of this encounter
--- OUTSIDE RECORDS SUMMARY | 2024-03-07 18:59 | XMS_ITS | Encounter Summary ---
Author Organization [facility] [place] [address] Care Team Providers Care Teacher Early Childhood Development Name Role Phone Nayla Miramontes MD Primary Care Provider [phone] Encounter Details Date Type Department Care Team (Late st Contact Info) Description 11/08/2015 8:30 AM EDT Procedure [place] [address] Lianet Betancourt, [facility] [place] [address] Psoriatic arthritis Social History Tobacco Use Types [...] as of this encounter Progress Notes * Lianet Betancourt, - 11/08/2015 8:30 AM EDT Pt referred from Dr Burgos for evaluation ongoing disease activity. P twith psoriatic arthritis on Humira and celebrex. She feels her hands occ bother her, and shoulders/upper back/knees are the worst. Rheumatology Musculoskeletal Ultrasound Report Date of service: 11/08/2015 Indication for Exam: Assess for ongoing disease activity in patient with PsA B-mode ultrasound is performed utilizing an 8-18 mHz linear probe. Static real- time views in longitudinal and transverse (short axis) orientation were obtained. Images are available on the Rheumatology Image Tobacco Drier Operator Archive. Images were completed of the 2nd, 3rd and 5th mcps and pips bl according to USSONAR protocol. The 2nd mcps bl showed very mild synovial thickening without doppler signal, the 3rd mcp on the left was normal and the right showed chronic synovial thickening. She had small osteophytes present in pips of the 2nd and 3rd. the r 5th pip was difficult to assess given deformity, but showed no effusion, but had joint space narrowing and possible erosion (but was unable to confirm in two perpendicular views due to the deformity.). Flexor tendons are intact with no tenosynovial fluid or distension. Dynamic testing shows normal motion of the flexor tendon. No evidence of dactylitis. Impression: synovial hypertrophy without active synovitis documented in this encounter Plan of Treatment Upcoming Encounters Date Type Department Care Team (Late st Contact Info) Description 05/17/2024 2:30 PM EST Office [place] [address] Alcides Bonilla MD [facility] [place] [address] 04/06/2049 9:00 AM EST Hospital Encounter [place] [address] Harry Guerrero MD [facility] [place] [address] documented as of this encounter Visit Diagnoses Diagnosis Psoriatic arthritis Psoriatic arthropathy documented in this encounter Care Teams Teacher Early Childhood Development Relationship Specialty Start Date End Date Nayla Miramontes MD [address] [place] [address] PCP - General 05/21/11 05/10/21 documented as of this encounter
--- OUTSIDE RECORDS SUMMARY | 2024-03-07 18:59 | XMS_ITS | Encounter Summary ---
Author Organization [facility] Address [facility] [place] [address] Care Team Providers Care Heel Builder Machine Name Role Phone Nayla Miramontes MD Primary Care Provider [phone] Reason for Visit * Reason Onset Date Comments Medication Refill 12/20/2015 Encounter Details Date Type Department Care Team (Late st Contact Info) Description 12/20/2015 Refill [place] [phone] Alyssa Brown LNA Social History Tobacco Use [...] 2:30 PM EST Office Visit [place] [phone] Alcides Bonilla MD [facility] [place] [address] 04/06/2049 9:00 AM EST Hospital Encounter [place] [address] Harry Guerrero MD [facility] [place] [address] documented as of this encounter Visit Diagnoses Not on filedocumented in this encounter Care Teams Heel Builder Machine Relationship Specialty Start Date End Date Nayla Miramontes MD [facility] [address] L[address] [facility] 1 [place] [address] PCP - General 05/21/11 05/10/21 documented as of this encounter
--- OUTSIDE RECORDS SUMMARY | 2024-03-07 18:59 | XMS_ITS | Encounter Summary ---
Author Organization [facility] Address [facility] [place] [address] Care Team Providers Care Heavy Duty Press Operator Name Role Phone Nayla Miramontes MD Primary Care Provider [phone] Encounter Details Date Type Department Care Team (Latest Contact Info) Description 11/08/2015 7:50 AM EDT Laboratory [place] [phone] Diabetes mellitus with background retinopathy Social History Tobacco Use Types Packs/Day Years [...] 2:30 PM EST Office [place] [phone] Alcides Bonilla MD [facility] [place] [address] 04/06/2049 9:00 AM EST Hospital Encounter [place] [address] Harry Guerrero MD [facility] [place] [address] documented as of this encounter Procedures Procedure Name Priority Date/Time Associated Diagnosis Comments C-PEPTIDE Routine 11/08/2015 7:52 AM EDT Diabetes mellitus with background retinopathy GLUCOSE, FASTING Routine 11/08/2015 7:52 AM EDT Diabetes mellitus with background retinopathy documented in this encounter Results * (ABNORMAL) Glucose, fasting (11/08/2015 7:52 AM EDT) Glucose Fasting 153(H) 65 - 99 mg/dL [facility] Comment: ?Fasting* Glucose Interpretive Criteria Normal ?65-99 mg/dL Impaired Fasting glucose ?100-125 mg/dL Consistent with Diabetes Mellitus ? >or= 126 mg/dL *Fasting is defined as no caloric intake for at least 8 hours In the absence of unequivocal hyperglycemia a plasma glucose value of >or= 126 mg/dL should be repeated on a subsequent day. Diagnosis and Classification of Diabetes Mellitus, Position Statement from the [place] [employer]. ??Diabetes Care, Volume 33, Supplement 1, Apr 2009 Blood specimen (specimen) 11/08/2015 7:52 AM EDT 11/08/2015 7:55 AM EDT Narrative Resulting Agency Comment Spec In Lab Darryl Barrera MD CHEMISTRY ORDERABLES [facility] [place] [address] * (ABNORMAL) C-peptide (11/08/2015 7:52 AM EDT) Pathologist [facility] C-Peptide <0.1(L) 1.1 - 4.4 ng/mL [facility] Comment: Test Performed by: [address] [address] [employer] Developer: Sean Jiménez II, M.D., Ph.D. Blood specimen (specimen) 11/08/2015 7:52 AM EDT 11/08/2015 9:18 AM EDT Narrative Resulting Agency Comment Spec In Lab Darryl Barrera MD CHEMISTRY ORDERABLES Performing Organization Address City/State/RUST Co de Phone Number [facility] [place] [address] documented in this encounter Visit Diagnoses Diagnosis Diabetes mellitus with background retinopathy documented in this encounter Care Teams Heavy Duty Press Operator Relationship Specialty Start Date End Date Nayla Miramontes MD [facility] [address] [place] [address] PCP - General 05/21/11 05/10/21 documented as of this encounter
--- OUTSIDE RECORDS SUMMARY | 2024-03-07 18:59 | XMS_ITS | Encounter Summary ---
Author Organization [facility] [place] [address] Care Team Providers Care Hot Baller Name Role Phone Nayla Miramontes MD Primary Care Provider [phone] Reason for Visit * Reason Comments Follow-up * Auth/Cert Specialty Diagnoses / Procedures Referred By Franklin laird Referred To Contact Diagnoses MDD (major depressive disorder), recurrent episode, moderate MDD Referral ID Status Reason Start Date Expiration Date Visits Re quested Visits Authorized [id number] 1 1 Encounter Details Date Type Department Care Team (Late st Contact Info) Description 02/11/2016 3:00 PM EST Office [place] [phone] Darryl Burgos MD [facility] [place] [address] Psoriatic arthritis; Severe episode of recurrent major depressive disorder, without psychotic features Social History Tobacco Use Types Packs/Day Years [...] Sign Reading Time Taken Comments Blood Pressure 134/55 02/11/2016 2:36 PM EST Pulse 83 02/11/2016 2:36 PM EST Temperature 36.8 ??C (98.2 ??F) 02/11/2016 2:36 PM ES T Respiratory Rate 18 02/11/2016 2:36 PM EST Oxygen Saturation 99% 02/11/2016 2:36 PM EST Inhaled Oxygen Concentration - - Weight 94.8 kg (209 lb) 02/11/2016 2:36 PM EST Height 167.6 cm (5' 6) 02/11/2016 2:36 PM EST Body Mass Index 33.73 02/11/2016 2:36 PM EST documented in this encounter Patient Instructions * Patient Instructions* Darryl Burgos MD - 02/11/2016 3:00 PM EST 1) Continue every other week Humira, 40 mg for now. ?? 2) Continue twice daily Celebrex for now. 3) Transfer to ED at [facility] now. 4) Return to follow up in three months. documented in this encounter Progress Notes * Darryl Burgos MD - 02/11/2016 3:00 PM EST REASON FOR VISIT: Follow up for psoriatic arthritis and psoriasis. ? INTERVAL HISTORY: ?? The pt was a 60-year-old female, who returned for a follow up of psoriatic arthritis and psoriasis. The pt noted that since her last visit on October 30, 2015, she continued to be on every other week adalimumab for immunosuppression of her psoriatic arthritis and psoriasis. She felt that her overall neck pain, back pain, and joint pain was stable while on adalimumab. She denied any joint swelling or significant stiffness. Otherwise, she had no chest pain, dyspnea, dysuria, headache, easybruising, rash, nausea, or polydipsia. She did complain of acid reflux and chronic fatigue. She also felt that her depression had significantly progressed after she ran out of the script for Lexapro about two months ago. She felt that Lexapro had lost its efficacy even before she ran of the script for it. She had an appointment with her primary care physician to discuss about treatment options for her poorly controlled depression in ten days. ?? PAST MEDICAL HISTORY: ?? Psoriatic arthritis ?? Psoriasis ?? Diabetes mellitus I, on insulin pump, poorly controlled (Hba1c = 9.3) ?? Diabetic ketoacidosis ?? Diabetic gastroparesis ?? Proliferative diabetic retinopathy ?? Vitreous hemorrhage of both eyes ?? Hypothyroidism ?? GERD ?? Hypertension ?? Hyperlipidemia ?? Severe esophageal dilatation with non emptying of the esophagus (07/2013) ?? Esophageal dysmotility (07/2013) ?? Large hiatal hernia (07/2013) ?? Asthma ?? Severe iron deficiency ?? Microcytic [...] with her family. 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 She was currently applying for disability. ? FAMILY HISTORY: ?? ?Mother - Hypertension, hyperlipidemia, hypothyroidism; of cardiac aneurysm at the age of 48. ?? Father - Stroke x two; of a brain tumor at the age of 82. ?? ? PHYSICAL EXAMINATION: ?? Vitals 02/11/2016 SYSTOLIC 134 DIASTOLIC 61 PULSE 84 TEMPERATURE 98.8 RESPIRATIONS 16 Height (Yemeni) 5' 5.984 Height (Metric) 167.6 cm Weight (Yemeni) 203 lbs Weight (Metric) 92.08 kg BODY MASS INDEX 32.78 kg/m2 Pulse Oximetry 99 General - Alert, [...] motor function deficit. ?? Psych - Affect depressed, labile, and teary. ? IMPRESSION : ?? 1) Psoriatic arthritis and 2) psoriasis in a 60-year-old female. The pt's psoriatic arthritis and psoriasis was under poor control when she was off adalimumab and Celebrex. S he previously failed methotrexate due to inadequate efficacy and worsening nausea. The pt will continue every other week adalimumab injection and twice daily Celebrex for immunosuppression for now. She will be considered to increase the dose of adalimumab. ? 3) Severe leftward lumbar scoliosis at L2-L3 (26 degrees). The pt's back pain is related to both severe leftward lumbar scoliosis at L2-L3 (26 degrees) and inflammatory back disease. She will focus on symptomatic control with Celebrex for now. She will also need to resume adalimumab for immunosuppression. ?? 4) Poorly controlled major depressive disorder. The pt's major depressive disorder was under poor control after she ran out of a script for Lexapro two months ago. On the day of visit, the pt's affect reflected her poorly controlled depression. I had a discussion with the pt about immediate psychiatric attention at the ED at [facility]. The pt agreed to be transferred to the ED at [facility] for further evaluation. ? RECOMMENDATIONS: ?? 1) Continue every other week Humira, 40 mg for now. ?? 2) Continue twice daily Celebrex for now. 3) Transfer to ED at [facility] now. 4) Return to follow up in three months. ? Darryl Burgos MD, PhD documented in this encounter Plan of Treatment Upcoming Encounters Date Type Department Care Team (Late st Contact Info) Description 05/17/2024 2:30 PM EST Office [place] [address] Alcides Bonilla MD [facility] [place] [address] 04/06/2049 9:00 AM EST Hospital Encounter [place] [address] Harry Guerrero MD [facility] DR [place] [address] documented as of this encounter Visit Diagnoses Diagnosis Psoriatic arthritis Psoriatic arthropathy Severe episode of recurrent major depressive disorder, without psychotic features documented in this encounter Care Teams Hot Baller Relationship Specialty Start Date End Date Nayla Miramontes MD [facility] A[address]BELLA LÓPEZ [facility] 1 [place] [address] PCP - General 05/21/11 05/10/21 documented as of this encounter
--- OUTSIDE RECORDS SUMMARY | 2024-03-07 18:59 | XMS_ITS | Encounter Summary ---
Author Organization [facility] [place] [address] Care Team Providers Care Director Trade Name Role Phone Nayla Miramontes MD Primary Care Provider [phone] Encounter Details Date Type Department Care Team (Late Contact Info) Description 04/30/2016 Telephone [place] [phone] Hazel Calderon [place] [facility] [place] [address] Social History Tobacco Use Types Packs/Day Years [...] Telephone Encounter - Hazel Oshea LD - 04/30/2016 1:58 PM EST Calling pt to check in from when we previously did the cgm download to see if it cost her any moneyto have the procedure. Pt says she never received a bill because she had medicare and medicaid. documented in this encounter Plan of Treatment Upcoming Encounters Date Type Department Care Team (Late Contact Info) Description 05/17/2024 2:30 PM EST Office [place] [address] Alcides Bonilla MD [facility] [place] [address] 04/06/2049 9:00 AM EST Hospital Encounter [place] [address] Harry Guerrero MD [facility] [place] [address] documented as of this encounter Visit Diagnoses Not on filedocumented in this encounter Care Teams Director Trade Relationship Specialty Start Date End Date Nayla Miramontes MD [facility] A[address]LLA L[address]PEZ [address] [place] [address] PCP - General 05/21/11 05/10/21 documented as of this encounter
--- OUTSIDE RECORDS SUMMARY | 2024-03-07 18:59 | XMS_ITS | Encounter Summary ---
Author Organization [facility] [place] [address] Care Team Providers Care Resource Manager Name Role Phone Nayla Miramontes MD Primary Care Provider [phone] Encounter Details Date Type Department Care Team (Late Contact Info) Description 01/31/2016 Telephone [place] [address] Nadiya Montalvo LPN Social History Tobacco Use [...] Telephone Encounter - Nadiya Montalvo LPN - 01/31/2016 10:47 AM EDT Message on endo nurse line from [facility] signed by Ebony Quintero was not dated. Will fax form back that needs to be dated and initialed. documented in this encounter Plan of Treatment Upcoming Encounters Date Type Department Care Team (Late st Contact Info) Description 05/17/2024 2:30 PM EST Office [place] [address] Alcides Bonilla MD [facility] [place] [address] 04/06/2049 9:00 AM EST Hospital [place] [phone] Harry Guerrero MD [facility] [address] [place] [address] documented as of this encounter Visit Diagnoses Not on filedocumented in this encounter Care Teams Resource Manager Relationship Specialty Start Date End Date Nayla Miramontes MD [facility]NABELLA LÓPEZ [facility] [address] [place] [address] PCP - General 05/21/11 05/10/21 documented as of this encounter
--- OUTSIDE RECORDS SUMMARY | 2024-03-07 18:59 | XMS_ITS | Encounter Summary ---
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 EVALUATION: Goal: Individualization & Mutuality Outcome: Ongoing (Interventions Implemented as Appropriate) 02/12/16 1335 Individualization Patient Specific Goals MEDICATION REVIEW, START ON ANTIDEPRESSENT Mutuality/Individual Preferences What Anxieties, Fears or Concerns Do You Have About Your Health or Care? HAS PRIOR EXPERIENCE WITH IMR What Questions Do You Have About Your Health or Care? WORRIED ABOUT ELEVATED BLOOD SUGARS What Information Would Help Us Give You More Personalized Care? I DON'T KNOW Goal: Fall Prevention-Safe Patient Handling Outcome: Ongoing (Interventions Implemented as Appropriate) 02/12/16 2300 02/13/16 0003 Restraint Interventions Safety Promotion/Fall Prevention -- fall prevention program maintained;nonskid shoes/slippers when out of bed Positioning Body Position -- independent Activity and Safety Assistive Device -- None Newberry Fall Risk History of Falling 0 -- Secondary Diagnosis 15 -- Ambulatory Aids 0 -- Intravenous Therapy/Heparin/Saline Lock 0 -- Gait/Transferring 0 -- Mental Status 0 -- Score 15 -- OTHER Newberry Fall Risk Low -- Musculoskeletal Interventions Muscle Strengthening -- activity/mobility promoted Goal: Infection Control Outcome: Ongoing (Interventions Implemented as Appropriate) 02/13/16 0003 Safety Interventions Isolation Precautions standard precautions maintained Infection Prevention rest/sleep promoted Coping Strategies Supportive Measures verbalization of feelings encouraged;active listening utilized Goal: Discharge Needs Assessment Outcome: Ongoing (Interventions Implemented as Appropriate) 02/13/16 0003 Discharge Needs Assessment Concerns To Be Addressed mental health concerns;coping/stress concerns Problem: Depression (Adult,Obstetrics,Pediatric) Goal: Identify Related Risk Factors and Signs and Symptoms Related risk factors and signs and symptoms are identified upon initiation of Human Response Clinical Practice Guideline (CPG) Outcome: Ongoing (Interventions Implemented as Appropriate) 02/13/162 Depression Related Risk Factors (Depression) history of depression;medical comorbidity;psychosocial factor Signs and Symptoms (Depression) overwhelmed Goal: Establish/Maintain Self-Care Routine Patient will demonstrate the desired outcomes by discharge/transition of care. Outcome: Ongoing (Interventions Implemented as Appropriate) 02/13/162 Depression (Adult,Obstetrics,Pediatric) Establish/Maintain Self-Care Routine making progress toward outcome Goal: Improved/Stable Mood Patient will demonstrate the desired outcomes by discharge/transition of care. Outcome: Ongoing (Interventions Implemented as Appropriate) 02/13/162 Depression (Adult,Obstetrics,Pediatric) Improved/Stable Mood making progress toward outcome * Plan of Care - Nitish Ruiz RN - 02/12/2016 1:58 PM EST Problem: Patient Care Overview Goal: Plan of Care Review Outcome: Ongoing (Interventions Implemented as Appropriate) OUTCOME EVALUATION NOTE: OUTCOME SUMMARY: PT AWAKE AT THE START OF SHIFT BS 312 BEFORE BREAKFAST AT 07:30 RECEIVED 12 UNITS LISPRO COVERAGE WELL 12 UNIT SCHEDULED DOSE. ATE MEAL OFFERED VARIOUS COMPLAINTS CONCERNING THE FOOD. PT MET WITH DIABETIC NURSE AND DIABETIC APNP. BS RECHECKED AT 272 AT 0930 . PT BACK ON HER INSULIN PUMP AT 1000 . MET WITH TREATMENT TEAM, REVIEWED GOALS FOR ADMISSION ,AGREES TO START SERZONE. BS 166 AT 1130 .PT DENIES S/I, DEPRESSION 7, ANXIETY 7,DENIES PAIN, S/I,H/I, ENCOURAGED TO ATTEND AFTERNOON GROUPS. PLAN MOVING FORWARD: Discharge planning, medication management/ education, goal setting, groups , INDIVIDUALIZED FALL PREVENTION INTERVENTIONS: Patient-specific fall risk factors per assessment: [current deficits]: LOW Assistance [level of assistance required for transfers and ambulation]: INDEPENDENT Supervision [direct monitoring required during toileting and ADLs]: INDEPENDENT Surveillance [continuous indirect monitoring]: 30 minute safety checks, purposeful rounding Patient-specific fall prevention interventions for sensory deficits provided, if applicable: [X] N/A CPG GOAL OUTCOME EVALUATION: * Consult Note - Toydonita Luzmariaemily Sharma APRN - 02/12/2016 10:01 AM EST Diabetes Management Team Inpatient Consult Date of Consultation: 02/12/2016 Consult Requested by: Dr Mathis psychiatry Reason for Consultation: Roxann Alexandre is a 60 y.o. female with PMH significant for type 1 DM, vitreous hemorrhage OU, psoriatic arthritis, MDD, hypothyroidism, HTN, HLD and gastroparesis who was admitted on 02/11/2016 currently being treated for depression with suicidal ideation. We are being consulted to assist with diabetes management and to provide a review of [facility] diabetes care. Diabetes History: Roxann Alexandre has had diabetes since 1972. She was 16 years old at diagnosis, states she recalls having difficulty seeing, went to the hospital and was diagnosed with Type 1 diabetes and was in DKA, spent 2 days in the hospital. She has used an insulin pump for many years. She gives meal associated bolus after she eats due to slowed absorption of food due to gastroparesis. She was recently treated for bronchitis (3 weeks duration) and her BG levels were all over the place when she was sick. Prior to her illness she reports good control of BG levels. Current outpatient diabetes regimen: Medications: Medtronic Insulin Pump Pump: Insulin Type humalog Basal Settings: 00:00 0.70 units per hour 04:00 0.80 units per hour 09:30 0.825 units per hour 15:30 0.85 units per hour 19:00 0.85 units per hour Total Daily Basal 19.375 Bolus Settings: I:C ratio 12 Correction Factor 25 Monitoring is done 4-6 times a day Most recent HA1c was done on 10/30/15 and was 10.2%, suggesting an average glucose of 246 mg/dL for the previous 6-8 weeks.Will recheck Typical diet is: frequent small meals and 1-2 snacks a day Breakfast- 1/2 cup grits or oatmeal Lunch- 1/2 sandwich or salad Supper- yogurt or fruit Snacks- triscuit crackers Typical exercise regimen is none Trouble with hypoglycemia had been good until 3 weeks of bronchitis then had both highs and lows Diabetes Complications Status: Eyes: retinopathy Kidneys: None Feet: None Sensory: None Autonomic: Gastroparesis Cardiac: None Current Hospital Diabetes Care: Medications: Novolog resistant sliding scale both q 4 hrs and 2 times daily Monitoring: q 4 hrs Diet: level 3 carb control ROS: Constitutional: No recent weight change Endocrine: No increased thirst or urination Eyes: No recent vision change ENT: No dysphagia, dental issues Cardiovascular: No chest pain Respiratory: No wheezing , shortness of breath GI: No nausea, vomiting, diarrhea, constipation : No frequent urinary tract infections Neurological: No weakness or numbness Skin/Feet: No current diabetic foot ulcers/open area PMH Past Medical History Diagnosis Date ??? Anxiety ??? Arthritis ??? Asthma ??? Cortical cataract 05/05/2011 ??? Diabetes mellitus ??? GERD (gastroesophageal reflux disease) ??? Hyperlipidemia ??? Hypertension ??? PDR (proliferative diabetic retinopathy) 05/25/2011 ??? Skin disease ??? Thyroid disease Current Hospital Medications: ??? bethanechol 10 mg Oral TID ??? pantoprazole 40 mg Oral BID AC ??? levothyroxine 175 mcg Oral Daily ??? lisinopril 20 mg Oral Daily ??? melatonin 9 mg Oral Nightly ??? insulin lispro 3-12 Units Subcutaneous TID AC ??? insulin lispro 3-12 Units Subcutaneous Q4H NAYANA ??? multivitamin 1 tablet Oral Daily Infusions: PRN: hydrOXYzine, traZODone, dextrose 50% OR glucagon (human recombinant) Allergy: Allergies Allergen Reactions ??? Codeine Phosphate [...] value Range last 24 hrs Temperature Temp: 36.6 ??C (97.9 ??F) Temp: [36.6 ??C (97.9 ??F)-37.1 ??C (98.8 ??F)] Heart Rate Heart Rate: 92 Heart Rate: [83-92] Blood Pressure BP: 125/64 BP: (125-135)/(55-73) Respiratory Rate Resp: 16 Resp: [16-18] SpO2 SpO2: 98 % SpO2: [94 %-100 %] Physical Exam: Gen: NAD, talking in clear sentences. Sitting on bed comfortably HEENT: no LAD, oral mucus membranes moist no obvious inflammation Heart: RRR, no murmurs. Radial pulses +2. Lungs: CTAB, breathing non-labored. No wheezes or rhonchi. Good aeration Abd: Soft, non-distended, non-tender x4 quadrants, +bs SKIN: No open areas or redness to both feet Neuro: Moving all extremities. Grossly non-focal Labs: Recent Labs 02/11/162156 WBC 6.7 HGB 11.0* HCT 36.7 PLATELET 338 NEUTROABS 3.06 Recent Labs 02/11/162156 NA 139 K 4.3 CL 97* CO2 27 BUN 16 CREATININE 0.98 GLUCOSE 251* Recent Labs 02/11/167 CALCIUM 9.2 No results for input(s): PROT, ALBUMIN, AST, ALT, ALKPHOS, BILITOT, BILIDIR in the last 168 hours. No results for input(s): INR, PT, PTT in the last 72 hours. No results for input(s): TROPONINT, CK in the last 168 hours. Recent Labs 02/11/16 2157 GLUCOSE 251* Assessment: Patient is a 60 y.o. years old female with PMH significant for DM (Last A1C of 10.2) who was admitted on 02/11/2016 for depression and suicidal ideation . Diabetes suboptimally controlled and complicated by recent illness, depression and hospitalization. Currently with variability of blood glucose levels while hospitalized requiring adjustment of insulin regimen and DM medications. She is at high risk for DKA with no basal insulin on board. Please give minimum of 1/2 basal dose (currently 19) 2 - 4 hours prior to removing insulin pump in the future. Another option would be initiating insulin IV infusion at time of pump removal. Since a person with Type 1 diabetes is unable toproduce endogenous insulin a basal insulin is required at all times to prevent DKA. We resumed her insulin pump this AM. She states she has no intentions of using insulin or her pump to commit suicide. Discussed with primary team who are in agreement. Plan: Patient managed insulin Pump settings are above. [facility] diabetes care: Medications - Outpatient treatment regimen recommendations pending based on the hospital course. Monitoring - continue BG tid ac & hs Diet - low fat/low carb diet Exercise - weight-bearing exercise 30 min/day, as tolerated Thank you for allowing us to provide care for your patient Luzmaria Valente APRN Endocrinology Pager [phone] * Initial Assessments - Ade Hollins - 02/12/2016 7:57 AM EST Initial Patient Assessment ADE HOLLINS RN reviewed record and discussed patient with Care Team on 02/12/2016. Introduced/reviewed role; services accepted. Roxann Alexandre is a 60 y.o. year old female (1955) presenting to [address] [place] [address] for treatment with MDD (major depressive disorder), recurrent episode, moderate [F33.1] Anticipated Length Of Stay (If known): unknown Patient/Caregiver Goals of Treatment: get on something that will help me cope Source of Information: Pt supplied/corraborated REASON for HOSPITALIZATION: stabilization in context of multiple medical and psychosocial stressors Medical/Behavioral Health History: has Diabetes mellitus; Hypertension; Hyperlipidemia; Hypothyroidism; Psoriasis; Depression; Iron deficiency; Asthma; Microcytic anemia; GERD (gastroesophageal reflux disease); Giron's esophagus; Diabetic retinopathy associated with type 1 diabetes mellitus; DKA (diabetic ketoacidoses); Reflux esophagitis; Gastritis; Anasarca; Cortical cataract; Retinal neovascularization of right eye; Vitreous hemorrhage of left eye; PSC (posterior subcapsular cataract), bilateral; Type 1 diabetes mellitus; PDR (proliferative diabetic retinopathy); Nuclear sclerosis; Proliferative diabetic retinopathy of both eyes.-mild resolving bilateral vitreous hemorrhages.No traction. Good PRP.; Psoriatic arthritis.currently on Hydroxychloroquine. No signs of hydroxychloroquine retinopathy. Recommend close followup.; Seborrheic keratosis; Solar lentigo; Xerosis cutis; Pruritus; Scoliosis; Chronic low back pain; Dysphagia; Constipation; PDR (proliferative diabetic retinopathy);Diabetic retinopathy; Vitreous hemorrhage of right eye; IDDM (insulin dependent diabetes mellitus);Urinary incontinence; Pseudophakia of both eyes (OD - 10/17/14, OS - 09/26/14); Presence of insulin pump; and MDD (major depressive disorder), recurrent episode, moderate on her problem list. Current treaters: Wilmer in private practice Hospitalizations Within the Past 30 Days: none known PERTINENT INFO FROM H & P: Roxann Alexandre is a 60yo woman [facility] with worsening depression and SI. She has been seen by a psychiatrist in the past, but recently has been covered by her PCP. She was being treated with escitalopram 60mg that worked for a while, but she stopped it a few months ago due to decreased benefit. She feels that by coming off the me dication, and new life stressors her depression is getting worse. When asked about her PTSD, she became tearful retelling the story about her granddaughter passing due to leukemia. Her other granddaughter that lives with her also recently had a child, and she stated that with that, and financial stress things are becoming more difficult for her. She believes she would not act on her thoughts of suicide, but is experiencing more distress from these thoughts. Her who is here with her alsofeels that things have been getting worse for her. They both feel that she would benefit from inpatient hospitalization to help with her mood, and to re-establish with a psychiatrist. She has been on multiple medications in the past for her mood, and has been seen by the mood disorder clinic. Lab work will be collected, but could consider starting a nefazodone, or retrying sertraline to help withher depression and PTSD. ADVANCE DIRECTIVES: <no information> Information provided as needed HEALTH /PRESCRIPTION COVERAGE: Current Effective Coverage: Payor/Plan Subscr Sex Relation Sub. Ins. ID Effective Group Num 1. [place]ARE - [place]* ROXANN ALEXANDRE 1955 Female [id number] [birth year][address] [place] [address] [facility] 2. MEDICAID [place] -* ROXANN ALEXANDRE 1955 Female Self [id number] [birth year] [address], [place] [employer] Prescription Coverage: [place] Medicaid Confirmed Preferred Pharmacy: [facility] - [place], [place] - [address] [facility] [address] [facility] [id number] [facility] - [place], [place] - [address] [facility] [address] [facility] [address] HOME ENVIRONMENT / SOCIAL & FAMILY SUPPORTS/COMMUNITY RESOURCES:(living situation, family constellation, Caregivers, current use & knowledge of community resources, etc.) Extended Emergency Contact Information Primary Emergency Contact: Eyal Garner Address: [address] [place] [phone] [place] [address] Relation: Spouse With current and granddaughter and great granddaughter PRIMARY CARE PHYSICIAN: MD Jaleel Dooley DR LILI 1 / [facility] [id number] MENTAL HEALTH PRESCRIBER: PCP at this time Current Decision-Making Capacity: (Level of Alertness/Orientation, dementia/ cognitive deficit, if patient is a minor - assess parent/guardian, etc.) Able to consent to or refuse care. CURRENT PATIENT & FAMILY EDUCATION, COPING NEEDS: (Address patient/family satisfaction with care to date, understanding of current status and plan of care, need for family meeting, need for building architectural designer, etc.) Pt has coping skills, reports having difficulty applying them. Functional Status Prior to Admission: Able to perform ADLs/IADLs independently Current Functional Ability: (use of assistive devices, working with PT/OT, etc.) Able to perform ADLs/IADLs independently Anticipated Barriers to Discharge/Special Considerations: (Financial/underinsured, behavioral, lackof needed support/access to community resources, current substance abuse, homelessness, etc.) None noted Potential Needs for Transition of Care: Home Health: na Any special transportation needed at D/C to [address] [place] [phone]? no Rehab/SNF: na New community resources referrals needed? Unclear at this time PLAN: PCM will continue to monitor progress, follow for continuity of care and assist with transition of care planning while hospitalized. ADE HOLLINS RN BSN [facility] PAGER: [phone] * Plan of Care - Ade Hollins - 02/12/2016 7:53 AM EST MULTIDISCIPLINARY TREATMENT PLAN Todays Date: 02/12/2016 Patient: Roxann Alexandre Admit Date: 02/11/2016 8:37 PM CODE STATUS:Full Code Initial date of care plan. __02/12/16_ Update Q7 days Next Kin:Extended Emergency Contact Information Primary Emergency Contact: Eyal Garner Address: [address] [place] [phone] [facility] Relation: Spouse Working Diagnosis: MDD (major depressive disorder), recurrent episode, moderate [F33.1] PATIENT'S REASON FOR HOSPITALIZATION (his or her own words) 1. is disturbed by suicidal thoughts, and wants help.?? STRENGTHS STRESSORS TARGET SYMPTOMS 1. Supportive Medical comorbidities SI 2. Parenting a grandchild anger 3. Medication inefficacy GOALS 1 Stabilize target symptoms and improve understanding of illness 2 Work with Patient Developer Advocate to create and implement aftercare plan 3 Medication optimization 4 Groups for education, skill building and support 5 Complete Relapse Plan prior to discharge PHYSICIAN INTERVENTIONS ACTIVITY INTERVENTIONS 1. Continued psychiatric evaluation 1. Behavioral Activation Communication Program 2. Med management/Brief therapy 2. Therapeutic groups & activities 3. Diagnostic/Medical testing/Labs 3. NURSING INTERVENTIONS PCM & SW INTERVENTIONS 1. Purposeful rounding 1. Facilitate communication with family 2. See Nursing care plan 2. Facilitate communication with providers 3. 3. Assist with discharge planning The multidisciplinary team reviewed falls prevention plan with me. I have worked with my treatment team and agree with the plan above. PATIENT SIGNATURE DATE: Roxann Alexandre PRINT NAME: SIGNATURE: DATE: RESIDENT PHYSICIAN ATTENDING PHYSICIAN LAURIE AYOUB NURSING PATIENT GAS PUMPING STATION SUPERVISOR Ade PATEN [facility] THERAPIST INDUSTRIAL RELATIONS SPECIALIST Lili Esparza [facility] * Plan of Care - Blayne Islas RN - 02/11/2016 9:51 PM EST Problem: Patient Care Overview Goal: Plan of Care Review 02/11/16 2151 Coping/Psychosocial Plan Of Care Reviewed With patient Plan of Care Review Progress no change Comments: . OUTCOME EVALUATION NOTE: OUTCOME SUMMARY: Pt expressed that she is here to manage her depression and suicidal tendencies. Rates Anxiety 4, Depression 8 and denies SI/HI d/t not having an active plan but considers her thoughts on shooting herself to be invasive and common this week. FSBG 210. PLAN MOVING FORWARD: Medical management. INDIVIDUALIZED FALL PREVENTION INTERVENTIONS: Patient-specific fall risk factors per assessment: [current deficits]: Stable gait Assistance [level of assistance required for transfers and ambulation]: indep Supervision [direct monitoring required during toileting and ADLs]: indep Surveillance [continuous indirect monitoring]: Q30 min checks Patient-specific fall prevention interventions for sensory deficits provided, if applicable: [X] N/A CPG GOAL OUTCOME EVALUATION: documented in this encounter Plan of Treatment Upcoming Encounters Date Type Department Care Team (Late st Contact Info) Description 05/17/2024 2:30 PM EST Office [place] [phone] Alcides Bonilla MD [facility] [place] [address] 04/06/2049 9:00 AM EST Hospital En[place] [phone] Harry Guerrero MD [facility] [address] [place] [address] Scheduled Referrals Name Type Priority Associated Diagnoses Orde r Schedule Referral to Endocrinology Outpatient Referral Routine 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 Ordered: 02/14/2016 documented as of this encounter Procedures Procedure Name Priority Date/Time Associated Diagnosis Comments POCT GLUCOSE Routine 02/14/2016 12:13 PM EST POCT GLUCOSE Routine 02/14/2016 7:36 AM EST POCT GLUCOSE Routine 02/13/2016 8:06 PM EST POCT GLUCOSE Routine 02/13/2016 4:35 PM EST POCT GLUCOSE Routine 02/13/2016 12:08 PM EST POCT GLUCOSE Routine 02/13/2016 7:38 AM EST HEMOGLOBIN A1C Routine 02/13/2016 7:02 AM EST POCT GLUCOSE Routine 02/13/2016 5:09 AM EST POCT GLUCOSE Routine 02/13/2016 12:09 AM EST POCT GLUCOSE Routine 02/12/2016 7:49 PM EST HEPATIC FUNCTION PANEL Routine 02/12/2016 4:06 PM EST POCT GLUCOSE Routine 02/12/2016 3:37 PM EST POCT GLUCOSE Routine 02/12/2016 11:32 AM EST POCT GLUCOSE Routine 02/12/2016 9:31 AM EST POCT GLUCOSE Routine 02/12/2016 7:47 AM EST POCT GLUCOSE Routine 02/12/2016 2:29 AM EST URINALYSIS WITH REFLEX CULTURE Routine 02/11/2016 10:09 PM EST URINE CULTURE Routine 02/11/2016 10:09 PM EST SCAN, PERIPHERAL BLOOD Routine 02/11/2016 9:57 PM EST HEMOGRAM Routine 02/11/2016 9:57 PM EST DIFFERENTIAL, AUTOMATED Routine 02/11/2016 9:57 PM EST VITAMIN D, 25-HYDROXY Routine 02/11/2016 9:57 PM EST CBC (WITH DIFF) Routine 02/11/2016 9:57 PM EST TSH Routine 02/11/2016 9:57 PM EST FOLATE, SERUM Routine 02/11/2016 9:57 PM EST VITAMIN B12 Routine 02/11/2016 9:57 PM EST BASIC METABOLIC PANEL Routine 02/11/2016 9:57 PM EST POCT GLUCOSE Routine 02/11/2016 9:33 PM EST documented in this encounter Results * (ABNORMAL) POCT Glucose (02/14/2016 12:13 PM EST) Glucose, POC 226(H) 65 - 199 mg/dL [facility] Comment: Supplemental ranges: <140 mg/dL before meals <180 mg/dL all other times of the day Blood specimen (specimen) 02/14/2016 12:13 PM EST 02/14/2016 12:13 PM EST Laurie Ayoub MD POINT OF CARE TEST O RDERABLES [facility] [place] [address] * POCT Glucose (02/14/2016 7:36 AM EST) Glucose, POC 137 65 - 199 mg/dL [facility] Comment: Supplemental ranges: <140 mg/dL before meals <180 mg/dL all other times of the day Blood specimen (specimen) 02/14/2016 7:36 AM EST 02/14/2016 7:36 AM EST Laurie Ayoub MD POINT OF CARE TEST O RDERABLES Performing Organization Address [facility] Co de Phone Number [facility] [place] [address] * (ABNORMAL) POCT Glucose (02/13/2016 8:06 PM EST) Glucose, POC 251(H) 65 - 199 mg/dL [facility] Comment: Supplemental ranges: <140 mg/dL before meals <180 mg/dL all other times of the day Blood specimen (specimen) 02/13/2016 8:06 PM EST 02/13/2016 8:06 PM EST Laurie Ayoub MD POINT OF CARE TEST O RDERARADHA Performing Organization Address [facility] Co de Phone Number [facility] [place] [address] * (ABNORMAL) POCT Glucose (02/13/2016 4:35 PM EST) Glucose, POC 297(H) 65 - 199 mg/dL [facility] Comment: Supplemental ranges: <140 mg/dL before meals <180 mg/dL all other times of the day Blood specimen (specimen) 02/13/2016 4:35 PM EST 02/13/2016 4:35 PM EST Laurie Ayoub MD POINT OF CARE TEST O RDERARADHA Performing Organization Address [facility] Co de Phone Number [facility] [place] [place] [address] * POCT Glucose (02/13/2016 12:08 PM EST) Glucose, POC 165 65 - 199 mg/dL [facility] Comment: Supplemental ranges: <140 mg/dL before meals <180 mg/dL all other times of the day Blood specimen (specimen) 02/13/2016 12:08 PM EST 02/13/2016 12:08 PM EST Laurie Ayoub MD POINT OF CARE TEST O RDERARADHA Performing Organization Address City/[facility]/ZIP Co de Phone Number [facility] [place] [place] [address] * (ABNORMAL) POCT Glucose (02/13/2016 7:38 AM EST) Glucose, POC 208(H) 65 - 199 mg/dL [facility] Comment: Supplemental ranges: <140 mg/dL before meals <180 mg/dL all other times of the day Blood specimen (specimen) 02/13/2016 7:38 AM EST 02/13/2016 7:38 AM EST Laurie Ayoub MD POINT OF CARE TEST O JESSICA Performing Organization Address [facility] Co de Phone Number [facility] [place] [address] * (ABNORMAL) Hemoglobin A1c (02/13/2016 7:02 AM EST) Pathologist [facility] Hemoglobin A1c 9.4(H) 4.3 - 5.6 % [facility] Comment: Reference Range: 4.3 [...] Mellitus, Diabetes Care 2013; 36: Suppl. 1, U87-38 Estimated Average Glucose 223 mg/dL [facility] Comment: eAG equivalents for HbA1c percentages: HbA1c(%) ?eAG(mg/dL) 6.0 ?126 6.5 ?140 7.0 ?154 7.5 ?169 8.0 ?183 8.5 ?197 9.0 ?212 9.5 ?226 10.0 ? 240 Limitations: The eAG calculation has not been validated on women, individuals below 18 years old and above 70 years old, and individuals with hemoglobinopathies. Additional resources are available on the ADA website: http://[employer]/DHMCadacalc Rich MCDANIEL, Brenda J, Wallace R, et al. ??Translating the A1C assay into estimated average glucose values. ??Diabetes Care 2008:31(8):2782-1230. Blood specimen (specimen) 02/13/2016 7:02 AM EST 02/13/2016 7:12 AM EST Narrative Resulting Agency Comment Spec In Lab Shreyas Pollack MD CHEMISTRY ORDERAB LES Performing Organization Address [facility] de Phone Number [facility] [place] [address] * POCT Glucose (02/13/2016 5:09 AM EST) Glucose, POC 188 65 - 199 mg/dL [facility] Comment: Supplemental ranges: <140 mg/dL before meals <180 mg/dL all other times of the day Blood specimen (specimen) 02/13/2016 5:09 AM EST 02/13/2016 5:09 AM EST Laurie Ayoub MD POINT OF CARE TEST O RDERABLES Performing Organization Address [facility] Co de Phone Number [facility] [place] [address] * POCT Glucose (02/13/2016 12:09 AM EST) Glucose, POC 171 65 - 199 mg/dL [facility] Comment: Supplemental ranges: <140 mg/dL before meals <180 mg/dL all other times of the day Blood specimen (specimen) 02/13/2016 12:09 AM EST 02/13/2016 12:09 AM EST Laurie Ayoub MD POINT OF CARE TEST O JESSICA Performing Organization Address [facility] de Phone Number [facility] [place] [address] * POCT Glucose (02/12/2016 7:49 PM EST) Glucose, POC 181 65 - 199 mg/dL [facility] Comment: Supplemental ranges: <140 mg/dL before meals <180 mg/dL all other times of the day Blood specimen (specimen) 02/12/2016 7:49 PM EST 02/12/2016 7:49 PM EST Laurie Ayoub MD POINT OF CARE TEST O JESSICA Performing Organization Address [facility] Co de Phone Number [facility] [place] [address] * Hepatic Function Panel (02/12/2016 4:06 PM EST) Pathologist [facility] Protein, Total 7.0 6.1 - 8.0 gm/dL [facility] Albumin 3.9 3.2 - 5.2 gm/dL [facility] Aspartate Aminotransferase 26 0 - 30 unit/L [facility] Alanine Aminotransferase 26 0 - 30 unit/L [facility] Alkaline Phosphatase 60 40 - 104 unit/L [facility] Bilirubin, Total 0.5 0.2 - 1.3 mg/dL [facility] Bilirubin, Direct 0.1 0.0 - 0.3 mg/dL [facility] Blood specimen (specimen) 02/12/2016 4:06 PM EST 02/12/2016 4:11 PM EST Narrative Resulting Agency Comment Spec In Lab Laurie Ayoub MD CHEMISTRY ORDERABLES Performing Organization Address [facility] de Phone Number [facility] [place] [address] * POCT Glucose (02/12/2016 3:37 PM EST) Glucose, POC 178 65 - 199 mg/dL [facility] Comment: Supplemental ranges: <140 mg/dL before meals <180 mg/dL all other times of the day Blood specimen (specimen) 02/12/2016 3:37 PM EST 02/12/2016 3:37 PM EST Laurie Ayoub MD POINT OF CARE TEST O RDERARADHA Performing Organization Address [facility] Phone Number [facility] [place] [address] * POCT Glucose (02/12/2016 11:32 AM EST) Glucose, POC 166 65 - 199 mg/dL [facility] Comment: Supplemental ranges: <140 mg/dL before meals <180 mg/dL all other times of the day Blood specimen (specimen) 02/12/2016 11:32 AM EST 02/12/2016 11:32 AM EST Narrative Authorizing Provider Result Flavia Ayoub MD POINT OF CARE TEST O RDERARADHA Performing Organization Address [facility] Phone Number [facility] [place] [address] * (ABNORMAL) POCT Glucose (02/12/2016 9:31 AM EST) Glucose, POC 272(H) 65 - 199 mg/dL [facility] Comment: Supplemental ranges: <140 mg/dL before meals <180 mg/dL all other times of the day Blood specimen (specimen) 02/12/2016 9:31 AM EST 02/12/2016 9:31 AM EST Narrative Authorizing Provider Result Flavia Ayoub MD POINT OF CARE TEST O RDERARADHA Performing Organization Address [facility]/State/ZIP Co de Phone Number [facility] [place] [address] * (ABNORMAL) POCT Glucose (02/12/2016 7:47 AM EST) Glucose, POC 312(H) 65 - 199 mg/dL [facility] Comment: Supplemental ranges: <140 mg/dL before meals <180 mg/dL all other times of the day Blood specimen (specimen) 02/12/2016 7:47 AM EST 02/12/2016 7:47 AM EST Laurie Ayoub MD POINT OF CARE TEST O RDERABLES Performing Organization Address [facility]/ZIP Co de Phone Number [facility] [place] [address] * POCT Glucose (02/12/2016 2:29 AM EST) Glucose, POC 122 65 - 199 mg/dL [facility] Comment: Supplemental ranges: <140 mg/dL before meals <180 mg/dL all other times of the day Blood specimen (specimen) 02/12/2016 2:29 AM EST 02/12/2016 2:29 AM EST Sean Taylor MD POINT OF CARE TEST ORDERABLES Performing Organization Address [facility] Co de Phone Number [facility] [place] [place] [address] * Urine culture (02/11/2016 10:09 PM EST) Urine Culture No growth (Less than 1,000 cfu/ml). [facility] Urine specimen obtained by clean catch procedure (specimen) 02/11/2016 10:09 PM EST 02/11/2016 11:01 PM EST Narrative Resulting Agency Comment Spec In Lab Sean Taylor MD MICROBIOLOGY - GENERAL ORDERABLES Performing Organization Address City/[facility]/ZIP Co de Phone Number [facility] [place] [address] * (ABNORMAL) Urinalysis with reflex Culture (02/11/2016 10:09 PM EST) Glucose, Urine Dipstick >=500(Critic al) Negative mg/dL [facility] Comment: Urinalysis result NOT critical without a combination of Glucose greater than or equal to 500mg/dl AND Ketones greater than or equal to 80mg/dl. Protein, Urine Dipstick Negative Negative mg/dL [facility] Bilirubin, Urine Dipstick Negative Negative mg/dL [facility] Comment: Clinical correlation required for positive Urine Bilirubin results as false positive may occur with some drugs and drug related products. If a false positive is suspected a serum total bilirubin should be considered if clinically indicated. Urobilinogen, Urine Dipstick Normal Normal mg/dL [facility] pH, Urn (dipstick) 6.0 5.0 - 8.0 [facility] Blood, Urine Dipstick Negative Negative mg/dL [facility] Ketone, Urine Dipstick 5(A) Negative mg/dL [facility] Nitrite, Urine Dipstick Negative Negative [facility] Leukocytes, Urine Dipstick Small(A) Negative [facility] Appearance, Urine Dipstick Clear Clear [facility] Specific [place] Urine Automated 1.026 1.002 - 1.030 [facility] Color, Urine Dipstick Yellow Yellow [facility] RBC, Urine 3 0 - 4 /HPF [facility] WBC, Urine 13(H) 0 - 5 /HPF [facility] Bacteria, Urine Rare(A) None /HPF [facility] Squamous Epithelial Cells, Urine 8(H) <=4 /HPF [facility] Reflex to Culture Yes [facility] Urine specimen obtained by clean catch procedure (specimen) 02/11/2016 10:09 PM EST 02/11/2016 10:14 PM EST Narrative Resulting Agency Comment Spec In Lab Sean Taylor MD URINE ORDERAB LES Performing Organization Address City/[facility]/ZIP Co de Phone Number [facility] [place] [address] * Scan, Peripheral Blood (02/11/2016 9:57 PM EST) Pathologist [facility] Plat estimate Normal [facility] RBC Morphology Abnormal [facility] Microcyte 1-5 /HPF [facility] Blood specimen (specimen) 02/11/2016 9:57 PM EST 02/11/2016 10:17 PM EST Narrative Resulting Agency Comment Spec In Lab Sean Taylor MD HEMATOLOGY OR DERABLES Performing Organization Address City/[facility]/ZIP Co de Phone Number [facility] [place] [address] * Differential, Automated (02/11/2016 9:57 PM EST) [facility] Neutrophil % 45.5 % [facility] Neutrophil Absolute 3.06 1.70 - 6.10 x10(3)/[facility] Lymph % 44.3 % [facility] Lymphocytes Abs 3.0 0.9 - 3.2 x10(3)/[facility] Monocyte % 6.9 % [facility] Monocyte Abs 0.5 0.3 - 0.9 x10(3)/[facility] Eos % 2.4 % [facility] Eosinophils Abs 0.2 0.0 - 0.4 x10(3)/[facility] Basophil % 0.6 % [facility] Baso Absolute 0.0 0.0 - 0.1 x10(3)/[facility] Immature Gran % 0.30 % [facility] Comment: Immature granulocytes(IG's)percentage and absolute count will include metamyelocytes, myelocytes, and promyelocytes. Blood smears from CBCs yielding IG's will be scanned manually for concordance. If this scan disagrees with the automated IG or if promyelocytes are noted, a manual differential will be performed. Immature Gran Absolute 0.02 0.00 - 0.04 x10(3)/[facility] Blood specimen (specimen) 02/11/2016 9:57 PM EST 02/11/2016 10:17 PM EST Narrative Resulting Agency Comment Spec In Lab Sean Taylor MD HEMATOLOGY OR DERABLES Performing Organization Address City/State/[facility] Co de Phone Number [facility] [place] [address] * (ABNORMAL) Hemogram (02/11/2016 9:57 PM EST) White Blood Cell 6.7 4.0 - 9.5 x10(3)/[facility] Red Blood Cell 4.95 4.00 - 5.21 x10(6)/[facility] Hemoglobin 11.0(L) 11.7 - 15.5 gm/dL [facility] Hematocrit 36.7 35.7 - 45.8 % [facility] Mean Cell Volume 74.1(L) 82.6 - 94.4 fL [facility] Mean Cell Hemoglobin 22.2(L) 27.1 - 32.0 pg [facility] Mean Cell Hemoglobin Concentration 30.0(L) 31.7 - 35.0 gm/dL [facility] Platelet 338 145 - 357 x10(3)/[facility] LAB[facility] RDW Standard Deviation 46.1(H) 37.0 - 46.0 [facility] RDW coefficient of variation 17.2(H) 11.5 - 14.1 % [facility] Mean Platelet Volume 9.4 7.6 - 12.9 fL [facility] NRBC% auto 0.0 % [facility] NRBC Absolute 0.000 0.000 - 0.000 x10(3)/[facility] Blood specimen (specimen) 02/11/2016 9:57 PM EST 02/11/2016 10:17 PM EST Narrative Resulting Agency Comment Spec In Lab Sean Taylor MD HEMATOLOGY OR DERABLES Performing Organization Address [facility] Co de Phone Number [facility] [place] [address] * (ABNORMAL) Vitamin D, 25-Hydroxy (02/11/2016 9:57 PM EST) Vitamin D Total 25 OH 27(L) 30 - 100 ng/mL [facility] Comment: Deficient <10 ng/mL Insufficient 10 to 29 ng/mL Sufficient 30 to 100 ng/mL Potential Intoxication >100 ng/mL According to the [place] National Osteoporosis Foundation, Vitamin D concentrations >30 ng/mL are sufficient to protect bone health. ??The National Kidney Foundation has similarly stated that patients with Vitamin D concentrations <30ng/mL should be considered to be insufficient or deficient. http://[employer]/[facility] – SHAWNEEnatlkidneyfoundation http://[employer]/DHVitD [employer] Vitamin D Immunoassay detects both 25-OH Vitamin D2 and 25-OH Vitamin D3, but only a total Vitamin D concentration is reported. Blood specimen (specimen) 02/11/2016 9:57 PM EST 02/11/2016 10:17 PM EST Narrative Resulting Agency Comment Spec In Lab Sean Taylor MD CHEMISTRY ORD ERABLES Performing Organization Address [facility] Co de Phone Number [facility] [place] [address] * Vitamin B12 (02/11/2016 9:57 PM EST) Vitamin B12 899 207 - 974 pg/mL [facility] Blood specimen (specimen) 02/11/2016 9:57 PM EST 02/11/2016 10:17 PM EST Narrative Resulting Agency Comment Spec In Lab Sean Taylor MD CHEMISTRY ORD ERABLES Performing Organization Address City/[facility]/ZIP Co de Phone Number [facility] [place] [address] * Folate, serum (02/11/2016 9:57 PM EST) [facility] Folate 8.5 4.8 - 24.2 ng/mL [facility] Blood specimen (specimen) 02/11/2016 9:57 PM EST 02/11/2016 10:17 PM EST Narrative Resulting Agency Comment Spec In Lab Sean Taylor MD CHEMISTRY ORD ERABLES Performing Organization Address [facility] Co de Phone Number [facility] [place] [address] * TSH (02/11/2016 9:57 PM EST) [facility] Thyroid Stimulating Hormone 1.49 0.27 - 4.20 mcIU/mL [facility] Blood specimen (specimen) 02/11/2016 9:57 PM EST 02/11/2016 10:17 PM EST Narrative Resulting Agency Comment Spec In Lab Sean Taylor MD CHEMISTRY ORD ERABLES Performing Organization Address [facility] Co de Phone Number [facility] [place] [address] * (ABNORMAL) Basic Metabolic Panel (non-fasting) (02/11/2016 9:57 PM EST) [facility] Glucose 251(H) 65 - 199 mg/dL [facility] Comment:Diabetes: >=200 mg/d L plus symptoms Blood Urea Nitrogen 16 8 - 18 mg/dL [facility] Creatinine 0.98 0.70 - 1.20 mg/dL [facility] Comment: Please note that the pediatric reference intervals supplied above were not validated at [facility]. Results from pediatric patients should be interpreted in conjunction to the patient's age, height and muscle mass. Sodium 139 135 - 145 mmol/L [facility] Potassium 4.3 3.5 - 5.0 mmol/L [facility] Comment: Please note: ??Patients with WBC >100,000 may have falsely elevated Potassium levels. ??For accurate Potassium quantification in these patients send serum separator tube (gold top) for subsequent determinations. ??Contact the Clinical Chemistry Laboratory if there are any questions. Chloride 97(L) 98 - 107 mmol/L [facility] Carbon Dioxide 27 22 - 31 mmol/L [facility] Anion Gap 15 5 - 15 mmol/L [facility] Calcium 9.2 8.5 - 10.5 mg/dL [facility] Est Glomerular Filtration Rate 58(L) >=60 [facility] Comment: This estimated GFR (eGFR) [...] the following links into your internet browser. http://[employer]/DHnkdep http://[employer]/DHMCnkf Blood specimen (specimen) 02/11/2016 9:57 PM EST 02/11/2016 10:17 PM EST Narrative Resulting Agency Comment Spec In Lab Sean Taylor MD CHEMISTRY ORD ERABLES [facility] [place] [address] * (ABNORMAL) POCT Glucose (02/11/2016 9:33 PM EST) Glucose, POC 210(H) 65 - 199 mg/dL [facility] Comment: Supplemental ranges: <140 mg/dL before meals <180 mg/dL all other times of the day Blood specimen (specimen) 02/11/2016 9:33 PM EST 02/11/2016 9:33 PM EST Sean Taylor MD POINT OF CARE TEST ORDERABLES [facility] [place] [place] [address] documented in this encounter Visit Diagnoses Diagnosis 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 MDD (major depressive disorder), recurrent episode, moderate Major depressive disorder, recurrent episode, moderate documented in this encounter Admitting Diagnoses Diagnosis MDD (major depressive disorder), recurrent episode, moderate Major depressive disorder, recurrent episode, moderate documented in this encounter Administered Medications Inactive Administered Medications - up to 3 most recent administrations Medication Order MAR Action Action Date Dose Rate Site bethanechol (URECHOLINE) tablet 10 mg 10 mg, Oral, 3 TIMES DAILY, First dose on Thu02/11/16 at 2200, Until Discontinued, Routine Given 02/14/2016 8:50 AM EST 10 mg Given 02/13/2016 8:13 PM EST 10 mg Given 02/13/2016 2:46 PM EST 10 mg calcium carbonate (TUMS) chewable tablet 500 mg 500 mg, Oral, DAILY PRN, Starting on Thu02/12/16 at 1642, Until Thu02/13/16 at 0944, Heartburn, Routine Given 02/12/2016 8:36 PM EST 500 mg calcium carbonate (TUMS) chewable tablet 500 mg 500 mg, Oral, 2 TIMES DAILY PRN, Starting on Thu02/13/16 at 0945, Until Thu02/14/16 at 1523, Heartburn, Routine dextrose 50% injection 25-50 mL 25-50 mL (12.5-25 g), Intravenous, EVERY 1 HOUR PRN, Starting on Thu02/12/16 at 1004, Until Thu02/14/16 at 1523, Low blood sugar, For BG 50-70: 120 [...] insulin., Routine glucagon (human recombinant) injection 1 mg 1 mg, Intramuscular, EVERY 1 HOUR PRN, Low blood sugar, Starting on Thu02/12/16 at 1004, Until Thu02/14/16 at 1523, For BG 50-70: 120 mL Juice or [...] for the duration of the active insulin. hydrOXYzine (ATARAX) tablet 25 mg 25 mg, Oral, 3 TIMES DAILY PRN, Starting on Thu02/11/16 at 2105, Until Thu02/14/16 at 1523, Anxiety, Routine Given 02/13/2016 8:00 AM EST 25 mg insulin lispro (humaLOG) VIAL injection 20-40 Units 20-40 Units, Subcutaneous, DAILY, First dose on Thu02/12/16 at 1030, Until Discontinued, Patient to administer per own pump. Before discontinuing the pump, obtain an order for an administer subcutaneous basal insulin., Routine Given 02/14/2016 9:00 AM EST 40 Units Given 02/13/2016 9:00 AM EST 40 Units Given 02/12/2016 10:30 AM EST 40 Units insulin lispro (humaLOG) VIAL injection 3-12 Units 3-12 Units, Subcutaneous, 3 TIMES DAILY BEFORE MEALS, First dose on Thu02/11/16 at 2130, Until Discontinued, CORRECTION BOLUS Resistant to insulin obese patient and TDD (total daily dose of all insulin needed to achieve glycemic control) greater than 60 units BG 140 - 160 Give 3 units BG 161 - 200 Give 6 units BG 201 - 240 Give 9 units BG greater than 240, give 12 units and recheck BG in 2 hours. If BG remains greater than 240, repeat 12 units (no more than three times) & call for new basal insulin orders. If less than 240 after two hours, give no insulin and resume prior schedule., Routine Given 02/12/2016 7:59 AM EST 12 Units Given 02/11/2016 10:30 PM EST 9 Units insulin lispro (humaLOG) VIAL injection 3-12 Units 3-12 Units, Subcutaneous, EVERY 4 HOURS SCHEDULED, First dose on Thu02/11/16 at 2130, Until Discontinued, CORRECTION BOLUS Resistant to insulin obese patient and TDD (total daily dose of all insulin needed to achieve glycemic control) greater than 60 units BG 140 - 160 Give 3 units BG 161 - 200 Give 6 units BG 201 - 240 Give 9 units BG greater than 240, give 12 units and recheck BG in 2 hours. If BG remains greater than 240, repeat 12 units (no more than three times) & call for new basal insulin orders. If less than 240 after two hours, give no insulin and resume prior schedule., Routine Given 02/12/2016 7:58 AM EST 12 Units levothyroxine (SYNTHROID) tablet 175 mcg 175 mcg, Oral, DAILY, First dose on Thu02/12/16 at 0900, Until Discontinued, Routine Given 02/14/2016 8:50 AM EST 175 mcg Given 02/13/2016 8:00 AM EST 175 mcg Given 02/12/2016 9:12 AM EST 175 mcg lisinopril (PRINIVIL;ZESTRIL) tablet 20 mg 20 mg, Oral, DAILY, First dose on Thu02/12/16 at 0900, Until Discontinued, Routine Given 02/14/2016 8:51 AM EST 20 mg Given 02/13/2016 8:31 AM EST 20 mg Given 02/12/2016 9:12 AM EST 20 mg melatonin tablet 9 mg 9 mg, Oral, NIGHTLY, First dose on Thu02/11/16 at 2130, Until Discontinued, Routine Given 02/13/2016 8:13 PM EST 9 mg Given 02/12/2016 8:35 PM EST 9 mg Given 02/11/2016 10:05 PM EST 9 mg multivitamin (THERAGRAN) tablet 1 tablet 1 tablet, Oral, DAILY, First dose on Thu02/12/16 at 0900, Until Discontinued Given 02/14/2016 8:51 AM EST 1 tablet Given 02/13/2016 8:00 AM EST 1 tablet Given 02/12/2016 9:12 AM EST 1 tablet nefazodone (SERZONE) tablet 100 mg 100 mg, Oral, 2 TIMES DAILY, First dose (after last modification) on Thu02/14/16 at 0900, Until Discontinued, Routine Given 02/14/2016 8:52 AM EST 100 mg nefazodone (SERZONE) tablet 50 mg 50 mg, Oral, 2 TIMES DAILY, First dose on Thu02/12/16 at 2100, Until Discontinued, Routine Given 02/13/2016 8:14 PM EST 50 mg Given 02/13/2016 8:01 AM EST 50 mg Given 02/12/2016 8:36 PM EST 50 mg pantoprazole (PROTONIX) tablet 40 mg 40 mg, Oral, 2 TIMES DAILY BEFORE MEALS, First dose on Thu02/12/16 at 0730, Until Discontinued, Please convert to formulary, , Therapeutic interchange from esomprazole, Routine Given 02/14/2016 8:52 AM EST 40 mg Given 02/13/2016 4:21 PM EST 40 mg Given 02/13/2016 8:00 AM EST 40 mg senna-docusate (PERICOLACE) 8.6-50 mg per tablet 1 tablet 1 tablet, Oral, 2 TIMES DAILY PRN, Starting on Thu02/12/16 at 1642, Until Thu02/14/16 at 1523, Constipation, Routine Given 02/12/2016 8:38 PM EST 1 tablet traZODone (DESYREL) tablet 50 mg 50 mg, Oral, NIGHTLY PRN, Starting on Thu02/11/16 at 2105, Until Thu02/14/16 at 1523, Sleep, Routine Given 02/13/2016 8:13 PM EST 50 mg documented in this encounter Active and Recently Administered Medications Times are shown in EST. Scheduled Medication Order 02/12/2016 02/13/2016 02/14/2016 bethanechol (URECHOLINE) tablet 10 mg 10 mg, Oral, 3 TIMES DAILY, First dose on Thu02/11/16 at 2200, Until Discontinued, Routine 0912 (Given - Provider: Nitish Ruiz RN)1408 (Given - Provider: Nitish Ruiz RN)2035 (Given - Provider: Nahed Shields RN) 0800 (Given - Provider: Nayla Pillai)1446 (Given - Provider: Nayla Pillai)2013 (Given - Provider: Nayla Pillai) 0850 (Given - Provider: Adi Addison, ELSA) insulin lispro (humaLOG) VIAL injection 20-40 Units 20-40 Units, Subcutaneous, DAILY, First dose on Thu02/12/16 at 1030, Until Discontinued, Patient to administer per own pump. Before discontinuing the pump, obtain an order for an administer subcutaneous basal insulin., Routine 1030 (Given - Provider: Nahed Shields RN - Comment: via pt's pump. Pump restarted 1000) 0900 (Given - Provider: Nayla Pillai - Comment: patient administerds own via pump) 0900 (Given - Provider: Adi Addison RN) insulin lispro (humaLOG) VIAL injection 3-12 Units (CANCELED)(Linked Group 1) 3-12 Units, Subcutaneous, 3 TIMES DAILY BEFORE MEALS, First dose on Thu02/11/16 at 2130, Until Discontinued, CORRECTION BOLUS Resistant to insulin obese patient and TDD (total daily dose of all insulin needed to achieve glycemic control) greater than 60 units BG 140 - 160 Give 3 units BG 161 - 200 Give 6 units BG 201 - 240 Give 9 units BG greater than 240, give 12 units and recheck BG in 2 hours. If BG remains greater than 240, repeat 12 units (no more than three times) & call for new basal insulin orders. If less than 240 after two hours, give no insulin and resume prior schedule., Routine 0759 (Given - Provider: Nitish Ruiz RN) insulin lispro (humaLOG) VIAL injection 3-12 Units (CANCELED)(Linked Group 2) 3-12 Units, Subcutaneous, EVERY 4 HOURS SCHEDULED, First dose on Thu02/11/16 at 2130, Until Discontinued, CORRECTION BOLUS Resistant to insulin obese patient and TDD (total daily dose of all insulin needed to achieve glycemic control) greater than 60 units BG 140 - 160 Give 3 units BG 161 - 200 Give 6 units BG 201 - 240 Give 9 units BG greater than 240, give 12 units and recheck BG in 2 hours. If BG remains greater than 240, repeat 12 units (no more than three times) & call for new basal insulin orders. If less than 240 after two hours, give no insulin and resume prior schedule., Routine 0000 (Not Given - Provider: Gab Rolon RN - Reason: See comment - Comment: Duplicate order)0234 (Not Given - Provider: Gab Rolon RN - Reason: Order parameters not met)0400 (Not Given - Provider: Gab Rolon RN - Reason: See comment - Comment: Duplicate order)0758 (Given - Provider: Nitish Ruiz RN) levothyroxine (SYNTHROID) tablet 175 mcg 175 mcg, Oral, DAILY, First dose on Thu02/12/16 at 0900, Until Discontinued, Routine 911 (Given - Provider: Nitish Ruiz RN) 0800 (Given - Provider: Nayla iPllai) 0850 (Given - Provider: Adi Addison RN) lisinopril (PRINIVIL;ZESTRIL) tablet 20 mg 20 mg, Oral, DAILY, First dose on Thu02/12/16 at 0900, Until Discontinued, Routine 911 (Given - Provider: Nitish Ruiz RN) 0831 (Given - Provider: Nayla Pillai) 0851 (Given - Provider: Adi Addison RN) melatonin tablet 9 mg 9 mg, Oral, NIGHTLY, First dose on Thu02/11/16 at 2130, Until Discontinued, Routine 2034 (Given - Provider: Nahed Shields RN) 2012 (Given - Provider: Nayla Pillai) multivitamin (THERAGRAN) tablet 1 tablet 1 tablet, Oral, DAILY, First dose on Thu02/12/16 at 0900, Until Discontinued 911 (Given - Provider: Nitish Ruiz RN) 0800 (Given - Provider: Nayla Pillai) 0851 (Given - Provider: Adi Addison RN) nefazodone (SERZONE) tablet 100 mg 100 mg, Oral, 2 TIMES DAILY, First dose (after last modification) on Thu02/14/16 at 0900, Until Discontinued, Routine 08 (Given - Provider: Adi Addison, ELSA) nefazodone (SERZONE) tablet 50 mg (CANCELED) 50 mg, Oral, 2 TIMES DAILY, First dose on Thu02/12/16 at 2100, Until Discontinued, Routine 2035 (Given - Provider: Nahed Shields RN) 08 (Given - Provider: Nayla Pillai)2013 (Given - Provider: Nayla Pillai) pantoprazole (PROTONIX) tablet 40 mg 40 mg, Oral, 2 TIMES DAILY BEFORE MEALS, First dose on Thu02/12/16 at 0730, Until Discontinued, Please convert to formulary, , Therapeutic interchange from esomprazole, Routine 0811 (Given - Provider: Nitish Ruiz RN)1636 (Given - Provider: Nahed Shields RN) 0800 (Given - Provider: Nayla Pillai)1621 (Given - Provider: Nayla Pillai) 0852 (Given - Provider: Adi Addison RN) PRN Medication Order 02/12/2016 02/13/2016 02/14/2016 calcium carbonate (TUMS) chewable tablet 500 mg (CANCELED) 500 mg, Oral, DAILY PRN, Starting on Thu02/12/16 at 1642, Until Thu02/13/16 at 0944, Heartburn, Routine 2035 (Given - Provider: Nahed Shields RN) calcium carbonate (TUMS) chewable tablet 500 mg 500 mg, Oral, 2 TIMES DAILY PRN, Starting on Thu02/13/16 at 0945, Until Thu02/14/16 at 1523, Heartburn, Routine dextrose 50% injection 25-50 mL(Linked Group 3) 25-50 mL (12.5-25 g), Intravenous, EVERY 1 HOUR PRN, Starting on Thu02/12/16 at 1004, Until Thu02/14/16 at 1523, Low blood sugar, For BG 50-70: 120 [...] glucagon (human recombinant) injection 1 mg(Linked Group 3) 1 mg, Intramuscular, EVERY 1 HOUR PRN, Low blood sugar, Starting on Thu02/12/16 at 1004, Until Thu02/14/16 at 1523, For BG 50-70: 120 mL Juice or [...] for the duration of the active insulin. hydrOXYzine (ATARAX) tablet 25 mg 25 mg, Oral, 3 TIMES DAILY PRN, Starting on 02/11/16 at 2105, Until Cristina 02/14/16 at 1523, Anxiety, Routine 0800 (Given - Provider: Nayla Pillai) senna-docusate (PERICOLACE) 8.6-50 mg per tablet 1 tablet 1 tablet, Oral, 2 TIMES DAILY PRN, Starting on Thu02/12/16 at 1642, Until Thu02/14/16 at 1523, Constipation, Routine 2038 (Given - Provider: Nahed Shields RN) traZODone (DESYREL) tablet 50 mg 50 mg, Oral, NIGHTLY PRN, Starting on Thu02/11/16 at 2105, Until Thu02/14/16 at 1523, Sleep, Routine 2012 (Given - Provider: Nayla Pillai) Linked Groups Order Group 1: POCT Fingerstick Glucose (CANCELED) Routine, 4 TIMES DAILY BEFORE MEALS & AT BEDTIME, First occurrence on Thu02/11/16 at 2200, Until Specified, Consider choosing FOUR TIMES A DAY BEFORE MEALS AND AT BEDTIME as frequency for: Patients who have a good hypoglycemia awareness. And insulin lispro (humaLOG) VIAL injection 3-12 Units (CANCELED)Jump to med 3-12 Units, Subcutaneous, 3 TIMES DAILY BEFORE MEALS, First dose on Thu02/11/16 at 2130, Until Discontinued, CORRECTION BOLUS Resistant to insulin obese patient and TDD (total daily dose of all insulin needed to achieve glycemic control) greater than 60 units BG 140 - 160 Give 3 units BG 161 - 200 Give 6 units BG 201 - 240 Give 9 units BG greater than 240, give 12 units and recheck BG in 2 hours. If BG remains greater than 240, repeat 12 units (no more than three times) & call for new basal insulin orders. If less than 240 after two hours, give no insulin and resume prior schedule., Routine Group 2: POCT Fingerstick Glucose (CANCELED) Routine, EVERY 4 HOURS, First occurrence on Thu02/12/16 at 0000, Until Specified, Consider choosing EVERY 4 HOURS as frequency for: - Type 1 Diabetes - At least 24 hours after coming off an insulin drip - At least 24 hours after admission for DKA - Hypoglycemia unawareness - Patients who are otherwise unstable Select the same frequency for the correction bolus insulin order And insulin lispro (humaLOG) VIAL injection 3-12 Units (CANCELED)Jump to med 3-12 Units, Subcutaneous, EVERY 4 HOURS SCHEDULED, First dose on Thu02/11/16 at 2130, Until Discontinued, CORRECTION BOLUS Resistant to insulin obese patient and TDD (total daily dose of all insulin needed to achieve glycemic control) greater than 60 units BG 140 - 160 Give 3 units BG 161 - 200 Give 6 units BG 201 - 240 Give 9 units BG greater than 240, give 12 units and recheck BG in 2 hours. If BG remains greater than 240, repeat 12 units (no more than three times) & call for new basal insulin orders. If less than 240 after two hours, give no insulin and resume prior schedule., Routine Group 3: dextrose 50% injection 25-50 mLJump to med 25-50 mL (12.5-25 g), Intravenous, EVERY 1 HOUR PRN, Starting on Thu02/12/16 at 1004, Until Cristina 02/14/16 at 1523, Low blood sugar, For BG 50-70: 120 [...] HOUR PRN, Low blood sugar, Starting on Thu02/12/16 at 1004, Until Cristina 02/14/16 at 1523, For BG 50-70: 120 mL Juice or [...] for the duration of the active insulin. documented in this encounter Care Teams Waxer Floor Relationship Specialty Start Date End Date Nayla Miramontes MD [facility] [address] [place] [address] PCP - General 05/21/11 05/10/21 documented as of this encounter
--- OUTSIDE RECORDS SUMMARY | 2024-03-07 18:59 | XMS_ITS | Encounter Summary ---
Author Organization Formerly [facility] [place] [address] Care Team Providers Care Manager Bakery Name Role Phone Nayla Miramontes MD Primary Care Provider [phone] Encounter Details Date Type Department Care Team (Latest Contact Info) Description 11/23/2015 Unscheduled Encounter Endocrinology at [facility] [place] [address] Hazel Calderon [facility] [place] [address] Diabetes mellitus type 1, uncontrolled Social History Tobacco Use Types Packs/Day Years [...] as of this encounter Progress Notes * Hazel Oshea LD - 11/23/2015 6:34 PM EDT Images from the original note were not included. Medtronic Continuous Glucose Monitoring System CGMS iPro2 Evaluation Pt dropped off sensor Below is the results and interpretation for the 7 day trial wear of the iPro2 CGM Diagnosis: Type 1 DM Endocrinology Team: Roseanne Simon APRN and Dr. Gloria Pimentel Diabetes Medications: pump medtronic paradigm revel 523 Reason for Evaluation: pt needs the CGM in order to get a new pump and possibly sensor Date of study: nov 07- nov 13 2015 Trial snapshot: Daily Overlay: SICK BOTH DAYS ABOVE AND 1 DAY BELOW Nov, , Problems Identified: 1) Pt on occasion tests her BG and then 30 mins - 1 hr later she will eat but not test her BG again. Wonder why she isn't testing right before eating? Pt does go high twice after eating on these occasions 2) On 2 occasions pt treated a low BG with frosting and went from 58 to 254 the other time 50- 349 3) Looks like pt has a high peak from 4pm - 3am slowly starts to rise in the afternoon and over night and then comes back to normal right before 3am. On two occasions pt does have low SG overnight 4) in general pt is not eating very healthy: a lot of pasta type dishes, grain type foods, glucernaand dessert type foods. I didn't see much mention of fruit, protein and veggies. Looks like grains are her main portion of her meal for breakfast lunch and dinner: cereal or pancakes at breakfast, mac and cheese, crackers or pasta at lunch/dinner Basal/Bolus split: 50/50 Eating habits: poor- see above Exercise: none documented in her log Illness: sick first 3 days Recent Labs 10/30/15 1039 07/24/15 1117 05/16/15 1335 HA1C 10.2* 9.7* 9.4* Reviewed By: ANNIKA Wright RDN Time Spent: 1 hour * Roseanne Simon APRN - 11/23/2015 6:34 PM EDT Recommend to lower basal rate at 12 AM to .7 units to avoid glucose levels below 110 during night. Try your best not to over treat low glucose levels. Try to keep 15gm of carbohydrates available such as 4 glucose tablets and try to wait 15 min to recheck glucose level. Try to test glucose right before eating to match insulin bolus with food intake better (and correction dose) documented in this encounter Miscellaneous Notes * Addendum Note - Roseanne Simon APRN - 11/28/2015 1:09 PM EDTAddended by: ROSEANNE SIMON on: 11/28/2015 01:09 PM Modules accepted: Level of Service documented in this encounter Plan of Treatment Upcoming Encounters Date Type Department Care Team (Late st Contact Info) Description 05/17/2024 2:30 PM EST Office Visit Gastroenterology at [place] [phone] Alcides Bonilla MD [facility] [place] [address] 04/06/2049 9:00 AM EST Hospital En[place] [phone] Harry Guerrero MD [facility] [place] [address] documented as of this encounter Visit Diagnoses Diagnosis Diabetes mellitus type 1, uncontrolled Type I (juvenile type) diabetes mellitus without mention of complication, uncontrolled documented in this encounter Care Teams Manager Bakery Relationship Specialty Start Date End Date Nayla Miramontes MD [facility] [address] [place] [address] PCP - General 05/21/11 05/10/21 documented as of this encounter
--- OUTSIDE RECORDS SUMMARY | 2024-03-07 18:59 | XMS_ITS | Encounter Summary ---
Author Organization [facility] Address [facility] [place] [address] Care Team Providers Care Stone Setter Apprentice Name Role Phone Nayla Miramontes MD Primary Care Provider [phone] Reason for Visit * Reason Comments Follow-up Encounter Details Date Type Department Care Team (Latest Contact Info) Description 03/04/2016 3:00 PM EST Office [place] [address] Harry Guerrero MD [facility] [place] [address] Gastroesophageal reflux disease, esophagitis presence not specified; Dysphagia, unspecified type; DM gastroparesis; Chronic constipation Social History Tobacco Use Types Packs/Day Years [...] Sign Reading Time Taken Comments Blood Pressure 149/65 03/04/2016 3:09 PM EST Pulse 78 03/04/2016 3:09 PM EST Temperature - - Respiratory Rate - - Oxygen Saturation - - Inhaled Oxygen Concentration - - Weight 92.8 kg (204 lb 9.6 oz) 03/04/2016 3:09 P M EST Height 167.6 cm (5' 5.98) 03/04/2016 3:09 PM ES T Body Mass Index 33.04 03/04/2016 3:09 PM EST documented in this encounter Progress Notes * Harry Guerrero MD - 03/04/2016 3:00 PM EST NEW GI CONSULTATION Roxann Baxter Female, 60 y.o., 1955 , SR None PCP: Nayla Miramontes MD DIRECTOR FIELD SERVICES: NONE TIME SPENT WITH PATIENT I spent 65 minutes reviewing extensive medical and surgical notes at the time of the patient's visit. The entire 65-minute visit was spent in [id number] counseling and coordination of care regarding the issue outlined below. HISTORY OF PRESENT ILLNESS This is a very nice 60-year-old woman whom I am asked to see in consultation regarding a variety ofGI issues. The first issue is that of NALINI. The patient has had reflux symptoms for more than 10 years. She wason prescription medications in the past, although apparently her insurance company will no longer pay for prescription PPIs. She is currently using [id number] Prevacid or Nexium or Prilosec twice daily taken correctly before breakfast and before dinner. A recent upper endoscopy on 01/01/16 revealed a slightly irregular Z-line and evidence of severe esophagitis. Biopsies showed evidence of inflammation, but no evidence of Giron's esophagus. The second issue is that of a history of balloon expulsion study; this was diagnosed on upper endoscopy in April 2012. There was no evidence of dysplasia. However, recent endoscopy with biopsies did not confirm this diagnosis. The third issue is that of dysphagia. She describes difficulty with solid foods, especially if theyare dry. Liquids and soft foods go down easily; her weight is stable. We reviewed her last two endoscopies showing a tortuous esophagus but no evidence of obstruction. A recent barium swallow did notshow any evidence of obstruction. Two separate high-resolution esophageal manometry studies have been shown clear evidence of severe, ineffective esophageal motility bordering on motor failure. I suspect that this is due to her diabetes. She currently is taking bethanechol, which has been shown to help some patients in two small studies; however, she is not quite sure if it has improved any of her symptoms. The next issue is that of gastroparesis. A four-hour, solid-phase gastric emptying scan showed a mild delay in gastric emptying with 17% remaining in the stomach two years ago. Recently, she has not had any problems with nausea or vomiting. In the past, she has used Zofran on a p.r.n. basis and Tigan on a p.r.n. basis with good benefit. The last issue is that of constipation; she has struggled with this off and on for years. She is currently taking 2 full capfuls of MiraLAX twice daily along with 24 mcg of Amitiza twice daily. On this regimen, she is having loose, liquid, mucousy stools throughout the day. A trial of linaclotide caused severe diarrhea. Smooth Move tea did not help. A colonoscopy approximately two years ago did not show any evidence of obstruction. We reviewed some ways to improve her symptoms today. ON FURTHER GI REVIEW She has never had documented hepatitis or pancreatitis. Her weight is stable. OVERALL HEALTH A 10-point review of systems was performed and pertinent positives include her diabetes, which dates back to 1972; she has known hypothyroidism; she has psoriasis; psoriatic arthritis; and osteoarthritis. She was recently hospitalized for severe depression. She has hypertension and elevated lipids.She suffers from anxiety. ALLERGIES/ADR 1. Codeine. 2. Propoxyphene. MEDICATIONS See eD-H; reviewed. PAST MEDICAL HISTORY 1. Diabetes; onset 1972. On insulin since 1972; associated retinopathy. 2. Obesity. 3. Hypertension. 4. Elevated lipids. 5. Asthma. 6. Depression. 7. Anxiety. 8. Hypothyroidism. 9. Vitamin D deficiency. 10. Lumbar scoliosis. 11. NALINI. 12. Severe, ineffective esophageal motility. 13. Constipation. 14. Chronic back pain. 15. Restless legs syndrome. PAST SURGICAL HISTORY section. SOCIAL HISTORY for 25 years. 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 Daughter age 16. Grandson age 8 months. HABITS No tobacco, no alcohol. FAMILY HISTORY Noncontributory. RECENT TESTING 1. EGD 04/27/12: revealed a [...] barium tablet passed easily into the stomach. MEDICATION/DIET TRIALS 1. Nexium - helps reflux. 2. Zofran - some help with nausea. 3. Tigan - some help with nausea. 4. MiraLAX - some help with constipation. 5. Amitiza - helps constipation. 6. Linaclotide - caused severe diarrhea. 7. Bethanechol - no significant help with dysphagia. PHYSICAL EXAM See eD-H for vital signs and weight. IMPRESSION/RECOMMENDATIONS 1. Follow up with PCP as scheduled as scheduled. 2. Follow up with systems support specialist as scheduled. 3. Follow up with psychiatrist and counselor as scheduled, especially given recent hospital stay for depression. 4. For dysphagia due to ineffective esophageal motility, lifestyle modifications emphasized. Stop bethanechol, as she is not convinced it is helping. No other medication trials for this, as no medication helps the esophagus work well in all patients. In addition, bethanechol may be worsening her constipation. 5. Mild gastroparesis. Focus on small, frequent, low-fat meals. Use Zofran or Tigan on a p.r.n. basis. 6. NALINI. Lifestyle modifications. Use OTC PPI one-half hour before breakfast and one-half hour before dinner. 7. Constipation. Use 2 full capfuls of MiraLAX between dinner and bedtime. The following morning after coffee, take 2 Amitiza at once (48 mcg) followed by breakfast and 30 to 45 minutes later, routine, scheduled bathroom time. 8. No specialized tests have been scheduled. 9. The patient has a followup appointment with Dr. Chavez in approximately seven days to discuss surgery for her large hiatal hernia. 10. Although not mentioned above, she describes intermittent back pain and restless legs symptoms. This was better on gabapentin in the past. This was stopped recently, although she has noted that off the gabapentin both symptoms are worse. I have faxed in a prescription to have her start gabapentin at 300 mg each night and, over the next month, slowly increase to a 300 mg t.i.d. schedule. I willlet her follow up with her PCP for her restless legs syndrome and back pain. Harry Guerrero, PhD, MD senior sql database developer, [employer] Chief, Section of Gastroenterology and Hepatology Former[facility] [place] [id number] V: [phone] F: [phone] FLEX/meenakshi EC/CC: PCP - staff msg copy 03/12/16 [facility] Ui Designer - staff msg copy 03/12/16 documented in this encounter Plan of Treatment Upcoming Encounters Date Type Department Care Team (Late st Contact Info) Description 05/17/2024 2:30 PM EST Office [place] [address] Alcides Bonilla MD [facility] [place] [id number] 04/06/2049 9:00 AM EST Hospital Encounter [place] [address] Harry Guerrero MD [facility] [place] [address] documented as of this encounter Visit Diagnoses Diagnosis Gastroesophageal reflux disease, esophagitis presence not specified Dysphagia, unspecified type DM gastroparesis Type II or unspecified type diabetes mellitus with neurological manifestations, not stated as uncontrolled Chronic constipation Unspecified constipation documented in this encounter Care Teams Stone Setter Apprentice Relationship Specialty Start Date End Date Nayla Miramontes MD [address] [place] [address] [facility] [address] [place] [address] PCP - General 05/21/11 05/10/21 documented as of this encounter
--- OUTSIDE RECORDS SUMMARY | 2024-03-07 18:59 | XMS_ITS | Encounter Summary ---
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 [place] [address] Uncontrolled type 1 diabetes mellitus with hyperglycemia [...] on file documented as of this encounter Patient Instructions * Patient Instructions* Hazel Oshea LD - 03/10/2016 9:00 AM EST Congratulations on getting started with the 630G Medtronic Pump. Please let us know if you have any questions. As always you can call the Medtronic help line to ask any questions regarding the pump You can always call this office 24 hours a day there is an technical professional acquisition cost estimator Please call me Thursday of this week and Thursday as a part of the pump protocol documented in this encounter Progress Notes * Hazel Oshea LD - 03/10/2016 9:00 AM EST Images from the original note were not included. 630G Medtronic Pump Start Group/Individual Training Instructions: Congratulations on getting started with the 630G Medtronic Pump. Please let us know if you have any questions. As always you can call the Medtronic help line to ask any questions regarding the pump You can always call this office 24 hours a day there is an technical professional acquisition cost estimator Please call me Thursday of this and Thursday as a part of the pump protocol [employer] Present: Daysi Holliday Roxann Baxter is a 60 y.o. female is here today to start a new insulin pump therapy regimen. Pt formerly on last version of the medtronic pump. Pt has Type 1 DM in poor control. Recent Labs 02/13/16 0702 10/30/15 1039 07/24/15 1117 HA1C 9.4* 10.2* 9.7* Lipid Panel Lab Results Component Value Date CHLPL 161 05/16/2015 HDL 69 05/16/2015 CHOLHDL 2.3 05/16/2015 LDLDIRECT 88 06/19/2014 Pump Training: Basic Features Pt demonstrated understanding of: Button functions, battery type/insertion, startup wizard, home screen, pump unlock/sleep mode, status bar icons, status screens, menu review, audio options, display options, used device options to connect pump and meter. Basal Set up Pt has demonstrated ability to: Setup a basal pattern, review and save, set multiple basal rates within a pattern, change basal rates within a pattern, set max basal: units, start temp basal (if needed), suspend delivery, resume delivery, appropriate times to manually suspend. Bolus Set up Pt verbalized understanding of: Bolus Wizard calculator and set up, active insulin, using bolus wizard calculator (BG and Carb, BG only, Carb only), Max Bolus ____ units, using manual bolus. Infusion Set: Pt Demonstrated the ability to: Fill and change infusion set with minimal assistance. Pt verbalized understanding of infusion set change frequency 3 days and why. Verbalized importance of site rotation. Checking Blood Glucose: Pt instructed and verbalized BG needs to be checked a minimum of 4x per day. Reviewed importance ofusing Contour Next Link meter as the meter. Safety Pt has verbalized understanding of: Hypoglycemia, hyperglycemia, DKA prevention, treating BGs that are above 250mg/dL, treating hypoglycemia (RULE of 15 reviewed) Alerts and Alarms Pt has verbalized understanding of: Notification light, audio indication, display icon, steps to take to address and alert or alarm [employer] Discussed value of using [employer] Personal software at home and the ability to connect to our office. Pt referred to instructions for sign-up and upload Additional Topics: Discussed removal for X-ray, CT scan and MRI. Discussed back up plan, discussed belt clip and skins. Discussed sick day guidelines. Settings: Were taken from pts pump see copy of pts report below. Verified all settings entered were correct, all settings entered on settings guide for pts reference. Alarms Set: none Low reservoir: 15 units Set change: 3 days Dual/Square wave bolus: on Bolus Speed: Standard Active insulin from practice bolus has been cleared. Training Time: 3 hours No Charge Visit documented in this encounter Plan of Treatment Upcoming Encounters Date Type Department Care Team (Late st Contact Info) Description 05/17/2024 2:30 PM EST Office [place] [address] Alcides Bonilla MD [facility] [place] [address] 04/06/2049 9:00 AM EST Hospital [place] [address] Harry Guerrero MD [facility] 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
--- OUTSIDE RECORDS SUMMARY | 2024-03-07 18:59 | XMS_ITS | Encounter Summary ---
Author Organization [facility] Address [facility] [place] [address] Care Team Providers Care Wafer Fab Technician Name Role Phone Nayla Miramontes MD Primary Care Provider [phone] Encounter Details Date Type Department Care Team (Late st Contact Info) Description 01/01/2016 10:26 AM EDT - 01/01/2016 1:18 PM EDT Hospital Encounter [place] [address] Giuseppe Caban MD [facility] [place] [address] Discharge Disposition: Home Social History Tobacco Use [...] Sign Reading Time Taken Comments Blood Pressure 116/61 01/01/2016 12:33 PM EDT Pulse 68 01/01/2016 12:33 PM EDT Temperature - - Respiratory Rate 16 01/01/2016 12:33 PM EDT Oxygen Saturation 91% 01/01/2016 12:33 PM EDT Inhaled Oxygen Concentration - - Weight 93.9 kg (207 lb) 01/01/2016 11:24 AM EDT Height 167.6 cm (5' 6) 01/01/2016 11:24 AM EDT Body Mass Index 33.41 01/01/2016 11:24 AM EDT documented in this encounter Discharge Instructions * Discharge Instructions* Dread Cerna RN - 01/01/2016 12:34 PM EDT You [...] occurs please contact your M.D. Please call [phone] before 5 pm with problems, questions or concerns. After 5pm call [phone] and ask to speak with the special day class teacher field identification specialist. Discharge instructions reviewed with patient who expresses understanding. * Attachments The following attachments cannot be sent through Care Everywhere. * EGD (UPPER ENDOSCOPY) : POST-OP (MONGOLIAN) documented in this encounter Medications at Time of Discharge Medication Sig Dispensed Refills Start Date End Date trimethobenzamide (TIGAN) 300 mg Capsule Take by mouth 4 times daily as needed. 08/08/2015 Diabetic Supplies, Miscellan. [facility] Inject 1 each subcutaneously 4 times daily. Faxed pump and supply order to [employer] at [phone]. Dx Code: 250.01 100 each 12 12/21/2015 Diabetic Supplies, Miscellan. [facility] faxed to [facility] 100 each 12 10/30/2015 bisacodyl (DULCOLAX) 10 mg SuppositoryIndicati ons:Other constipation Place 1 suppository rectally daily. 60 suppository 3 03/20/2015 lisinopril (PRINIVIL;ZESTRIL) 20 mg Tablet Take 1 tablet by mouth daily. 30 tablet 12/08/2013 MULTI-VITAMIN ORAL Take 1 tablet by mouth daily. Reported on 05/26/2016 CELECOXIB (CELEBREX ORAL) Take by mouth. 05/14/2016 Diabetic Supplies, Miscellan. [facility] CGM faxed to [employer]. 600 each 3 12/21/2015 01/27/2017 levothyroxine (SYNTHROID) [...] Physical Planned Procedure: EGD: Indication: follow-up of [facility] from 2012 Patient Active Problem List Diagnosis [...] 2:30 PM EST Office [place] [address] Alcides Bonilla MD [facility] [place] [address] 04/06/2049 9:00 AM EST Hospital En[place] [address] Harry Guerrero MD [facility] [place] [address] documented as of this encounter Procedures Procedure [...] Report (01/01/2016 12:37 PM EDT) Final Diagnosis [id number] ? Location: 4T; EA12; A The signing [...] ng: (T1) ??ejr 01/03/2016 10:01 PM EDT [facility] GI Biopsy 01/01/2016 12:3 7 PM EDT 01/01/2016 12:37 PM EDT GI Biopsy 01/01/2016 12:3 7 PM EDT 01/01/2016 12:37 PM EDT GI Biopsy 01/01/2016 12:3 7 PM EDT 01/01/2016 12:37 PM EDT Giuseppe Caban MD PATHOLOGY/CYTOLOG Y ORDERABLES [facility] [place] [address] * Specimen to Pathology (surgical or derm) (01/01/2016 12:37 PM EDT) AP Specimen 01/01/2016 12:3 7 PM EDT 01/01/2016 12:37 PM EDT Narrative [facility] - 01/01/2016 12:37 PM EDT Specimen requisition ordered. ??Separate Pathology report to follow Giuseppe Caban MD PATHOLOGY/CYTOLOG Y ORDERABLES Performing Organization Address [facility]/ZIP Co de Phone Number [facility] [place] [address] * Specimen to Pathology (surgical or derm) (01/01/2016 12:37 PM EDT) AP Specimen 01/01/2016 12:3 7 PM EDT 01/01/2016 12:37 PM EDT Narrative [facility] - 01/01/2016 12:37 PM EDT Specimen requisition ordered. ??Separate Pathology report to follow Giuseppe Caban MD PATHOLOGY/CYTOLOG Y ORDERABLES Performing Organization Address [facility] Co de Phone Number [facility] [place] [address] * Specimen to Pathology (surgical or derm) (01/01/2016 12:37 PM EDT) AP Specimen 01/01/2016 12:3 7 PM EDT 01/01/2016 12:37 PM EDT Narrative [facility] - 01/01/2016 12:37 PM EDT Specimen requisition ordered. ??Separate Pathology report to follow Giuseppe Caban MD PATHOLOGY/CYTOLOG Y ORDERABLES Performing Organization Address [facility] Co de Phone Number [facility] [place] [address] * POCT Glucose (01/01/2016 11:48 AM EDT) Glucose, POC 127 65 - 199 mg/dL [facility] Comment: Supplemental ranges: <140 mg/dL before meals <180 mg/dL all other times of the day Blood specimen (specimen) Capillary / Unknown 01/01/2016 11:48 AM EDT 01/01/2016 11:48 AM EDT Narrative Resulting Agency Comment Spec In Lab Giuseppe Caban MD POINT [place] [address] documented in this encounter Visit Diagnoses Not [...] RN) documented in this encounter Care Teams Wafer Fab Technician Relationship Specialty Start Date End Date Nayla Miramontes MD [facility] [address] [place] [address] PCP - General 05/21/11 05/10/21 documented as of this encounter
--- OUTSIDE RECORDS SUMMARY | 2024-03-07 18:59 | XMS_ITS | Encounter Summary ---
Author Organization [facility] Address [facility] [place] [address] Care Team Providers Care Restaurant District Manager Name Role Phone Nayla Miramontes MD Primary Care Provider [phone] Reason for Visit * Auth/Cert Specialty Diagnoses / Procedures Referred By Franklin laird Referred To Contact Diagnoses Morbid obesity PARAESOPHAGEAL HERNIA Procedures PRO LAPAROSCOPY, SURG, REPAIR PARAESOPHAGEAL HERNIA, W/O IMPLANTATION OF MESH LAPAROSCOPIC PARAESOPHAGEAL HERNIA REPAIR W/FUNDOPLASTY, W/O MESH MODIFIER, HIATAL HERNIA Referral ID Status Reason Start Date Expiration Date Visits Re quested Visits Authorized [id number] 1 1 Encounter Details Date Type Department Care Team (Late st Contact Info) Description 05/08/2016 10:28 AM EST - 05/08/2016 1:26 PM EST Surgery [place] [address] Sonja Perez MD [facility] [place] [address] LAPAROSCOPIC PARAESOPHAGEAL HERNIA REPAIR W/FUNDOPLASTY, W/O MESH (WRVU 26.6) Social History Tobacco Use Types Packs/Day Years [...] Perez MD - Primary * Minerva Plascencia MD: Procedure(s): LAPAROSCOPIC PARAESOPHAGEAL HERNIA REPAIR W/FUNDOPLASTY, [...] repair withtoupet fundoplicaion now c/o dysphagia TECHNIQUE: Federal Appellate Clerk radiograph of the upper abdomen was obtained. Single contrast esophagram was performed with water-soluble contrast (Omnipaque 300) followed by thin barium. Fluoroscopic spot images and radiographs were obtained in multiple projections. Fluoroscopic time: 1.63 minutes COMPARISON: Multiple prior exams, most recently 02/11/2016 esophagram FINDINGS: Federal Appellate Clerk radiograph demonstrates partially imaged nonobstructive bowel gas [...] tablet Refills: 3 * Diabetic Supplies, Miscellan. [facility] MNF faxed to [facility] Quantity: 100 each Refills: 12 * Diabetic Supplies, Miscellan. [facility] Inject 1 each subcutaneously 4 times daily. Faxed pump and supply order to [employer] at [phone]. Dx Code: 250.01 1 each Quantity: 100 each Refills: 12 * Diabetic Supplies, Miscellan. [facility] CGM faxed to [employer]. Quantity: 600 each Refills: 3 gabapentin 300 [...] AND/OR HOSPICE SERVICES) PATIENT'S LOCATION: Roxann Baxter [address] [place] [phone] (home) Cell: No relevant phone numbers on file. Stapler Coil Unit's Name: Self In discussion with the attending physician, it is certified that this patient is under their care and that they, or a Nurse Practitioner,Clinical Nurse specialist or Physician Business Intern who is working directly with them, had [...] for managing ADL's. HOME HEALTH CARE AGENCY: [facility]. PHONE: [phone] FAX: [phone] Start of care: 05/19/16 FOR MEDICARE ONLY: [...] this patient's PCP: MD Jaleel Dooley DR / [facility] [address] All [facility] agencies which cover the area of patient's residence have been reviewed, either verbally constantine writing, and patient/family have chosen the home health care agency noted Question Response Notes Agency name and contact information [facility] Patient location post discharge home What [...] drainage from your wound. PHONE NUMBERS ?? [phone] during normal business hours - identify yourself and your surgeon. ?? [phone] outside normal business hours - Ask for General Surgery resident women's health care nurse practitioner. ?? [phone] on weekends/holidays - Ask for General Surgery resident women's health care nurse practitioner. Follow up: You will have a surgical followup appointment with SONJA Luz in 4 weeks at the General Surgery Outpatient Clinic ([address], [facility]). The appointment details scheduled will be mailed to you. If you do not hear from [facility] within 5 daysof your discharge, Please call [phone] to confirm your appointment. Future Appointments Date Time Provider Department Center 06/02/2016 11:00 AM Darryl Burgos MD [facility] 06/09/2016 3:00 PM Sonja Perez MD [facility] 06/12/2016 10:00 AM [facility] [...] new drainage from your wound. PHONE NUMBERS [phone] during normal business hours - identify yourself and your surgeon. [phone] outside normal business hours - Ask for General Surgery resident women's health care nurse practitioner. [phone] on weekends and all holidays - Ask for General Surgery resident women's health care nurse practitioner. Your surgeon may not be Sales Representative Facility Services, especially during the night or on weekends, [...] drainage from your wound. PHONE NUMBERS ?? [phone] during normal business hours - identify yourself and your surgeon. ?? [phone] outside normal business hours - Ask for General Surgery resident women's health care nurse practitioner. ?? [phone] on weekends/holidays - Ask for General Surgery resident women's health care nurse practitioner. Follow up: You will have a surgical followup appointment with SONJA Luz in 4 weeks at the General Surgery Outpatient Clinic ([address], [facility]). The appointment details scheduled will be mailed to you. If you do not hear from [facility] within 5 daysof your discharge, Please call [phone] to confirm your appointment. Future Appointments Date [...] new drainage from your wound. PHONE NUMBERS [phone] during normal business hours - identify yourself and your surgeon. [phone] outside normal business hours - Ask for General Surgery resident women's health care nurse practitioner. [phone] on weekends and all holidays - Ask for General Surgery resident women's health care nurse practitioner. Your surgeon may not be Sales Representative Facility Services, especially during the night or on weekends, [...] 2 times daily. 04/28/2016 Diabetic Supplies, Miscellan. [facility] Inject 1 each subcutaneously 4 times daily. Faxed pump and supply order to [employer] at [phone]. Dx Code: 250.01 100 each 12 12/21/2015 Diabetic Supplies, Miscellan. [facility] faxed to [facility] 100 each 12 10/30/2015 bisacodyl (DULCOLAX) 10 [...] Diabetic Supplies, Miscellan. Misc CGM faxed to [employer]. 600 each 3 12/21/2015 7 levothyroxine (SYNTHROID) [...] of this encounter Progress Notes * Kaya Alexander, RN - 05/16/2016 1:28 PM EST Office of Care Management (OCM) / Manager Distribution Center(CM) Plan for patient to go home today with VNA with PT. CM will have resource conservationist send referral to [facility]. PHONE: [phone] FAX: [phone] for VNA & PT services. Kaya Alexander RN Case Manager Pager [phone] * Ignacio Marquis PT - 05/16/2016 12:32 [...] interventions: 15 minutes IGNACIO MARQUIS PT Pager: [phone] Physical Therapy Rehabilitation Department * Danyelle James [...] is 31.12 kg/(m^2). BMI diagnosis: obese 05/15 700 - 05/16 07 In: 2420 [P.O.:2420] Out: 1300 [Urine:1300] Post-Asia [...] moving all four extremities spontaneously. Recent Labs 05/15/1651905/14/16529 WBC 4.6 5.3 HGB 8.9* 9.2* HCT 29.0* 29.6* PLATELET 354 344 Recent Labs 05/15/1651905/14/16529 NA 142 142 K 4.2 4.5 CL 102 101 CO2 32* 32* BUN 9 8 CREATININE 0.79 0.73 GLUCOSE 82 112 CALCIUM 8.6 8.6 MAGNESIUM 0.87 0.89 PHOS 3.5 3.3 New Studies: None Consults: Endo: PLAN: BG checks every 4 hours on [facility] POC monitor. ? Patient managed insulin pump [...] Full KRISTINA WOOD MD 05/16/2016 General Surgery p.3180 * Gonsalo Yanez RN - 05/16/2016 12:10 AM EST Pt did not administer coverage for BG at 1933 for 182 Pt did not administer coverage for BG At 0000 for 140 * Luzmaria Valente APRN - 05/15/2016 10:15 AM EST Follow Up [...] Regimen BG checks every 4 hours on [facility] POC monitor. ?? Patient managed insulin pump [...] PLAN BG checks every 4 hours on [facility] POC monitor. ?? Patient managed insulin pump Medications: Mini med insulin pump 0000 0.65 units/hour 0400 0.70 units/hour 0930 0.825 units/hour 1530 0.850 units/hour 1900 0.75 units/hour ? I:C of 1u:12grams of cars CF: 25 Luzmaria Valente APRN [facility] Endocrinology Diabetes Management Pager [phone] 20 minutes of this 35 minute visit [...] is 31.12 kg/(m^2). BMI diagnosis: obese 05/14 700 - 05/15 07 In: 1140 [P.O.:1140] Out: 1125 [Urine:1125] Post-Asai Full Liquid diet Full Liquid; 60/60/75 CHO [...] moving all four extremities spontaneously. Recent Labs 05/14/1630 05/13/16 0522 05/12/16 0508 WBC 5.3 4.7 [...] 05/14/2016 General Surgery p.3180 * Luzmaria Valente, STUDENT SERVICES REPRESENTATIVE - 05/14/2016 11:42 AM EST Follow Up [...] PLAN BG checks every 4 hours on [facility] POC monitor. Patient managed insulin pump Medications: Mini med insulin pump Total daily basal: 19.375 units 0000 0.700 units/hour 0400 0.750 units/hour 0930 0.825 units/hour 1530 0.850 units/hour 1900 0.850 units/hour ?? I:C of 1u:12grams of cars CF: 25 Luzmaria Valente APRN [facility] Endocrinology Diabetes Management Pager [phone] 20 minutes of this 35 minute visit was spent with the patient in counseling on diabetes and treatment plan, reviewing all glucose and insulin data as well as relevant laboratory results with the patient, and coordination of care on the inpatient unit including nursing and primary team. * Tico Pool - 05/14/2016 10:23 AM EST Nutrition Services [...] Left arm Pulse: Resp: 18 18 17 19 Temp: 37.2 ??C (99 ??F) 36.9 ??C [...] for acid rebound phenomenon as well * Sidra Luzmaria L, STUDENT SERVICES REPRESENTATIVE - 05/13/2016 12:01 PM EST Images from [...] ratio for each meal Luzmaria Valente APRN [facility] Endocrinology Diabetes Management Pager [phone] 20 minutes of this 35 minute visit [...] is 31.12 kg/(m^2). BMI diagnosis: obese 05/12 0701 - 05/13 0700 In: 480 [P.O.:480] Out: 2300 [Urine:2300] Post-Asia [...] IS GI: Post-Asia Full liquid diet w/ CCII /FE: MARVIN [...] is 31.12 kg/(m^2). BMI diagnosis: obese 05/11 700 - 05/12 07 In: 960 [P.O.:960] Out: 1525 [Urine:1525] Post-Asia [...] 05/12/2016 General Surgery p.3180 * Luzmaria Valente, STUDENT SERVICES REPRESENTATIVE - 05/12/2016 9:05 AM EST Images from [...] ratio for each meal Luzmaria Valente APRN [facility] Endocrinology Diabetes Management Pager [phone] 20 minutes of this 35 minute visit [...] (!) 84% BMI 31.12 kg/m2 Pleasant, conversant, NILESH Labs: Lab Results Component Value Date Sodium [...] gm carb ratio for each meal. ?? assisted diabetes care: Medications - Outpatient treatment regimen [...] agree with this plan. ARCHIE PIMENTEL MD Rigger Helpercompany truck driver Section of Endocrinology [facility] * Nereyda Ha RN - 05/11/2016 12:00 PM EST Reports received from ELSA Balbuena from [facility]. Patient transferred to floor via wheelchair. A&O X4, VSS, Assessment complete, see doc flow. Alarms on and activated, call mills within reach. Will continue to monitor. * Minerva Plascencia MD - 05/10/2016 12:06 PM EST MIS SERVICE - DAILY PROGRESS NOTE DOA: 05/08/2016 : 1955 LOS: 2 BED: 503/503-A ATTG: Sonja Perez MD SUBJECTIVE Roxann Baxter [...] -HLIV (resume IVF if poor PO intake) -[facility] DISPO: Floor status Code status: Full code [...] Randhawa RN - 05/08/2016 6:44 PM EST Emergency Care Attendant assumed care of pt upon transfer from [...] with scop patch Compazine IV And repositoning INDUSTRIAL REGISTERED NURSE for pain Shoulders more than surgical pain [...] which she has been on a PPI [id number], ?? Reflux symptoms breath through often, despite [...] 16 year old daughter (who has an infant). 2 story home, walk in shower with [...] daily self-care tasks Christy Rawls OT/L Pager [phone] Occupational Therapist Rehabilitation Department Goal: Discharge Needs Assessment Outcome: Ongoing (Interventions Implemented as Appropriate) 05/16/16 1258 Discharge Needs Assessment Concerns To Be Addressed [...] Ongoing (Interventions Implemented as Appropriate) ?? 05/14/16 1954 Safety Interventions Isolation Precautions standard [...] s/p lap toupet paraesophageal hernia repair on 2/ Staff Mobility Recommendations: OOB and amb with assist while here, using walker Precautions/Restrictions: other (see comments) Precautions Comments: insulin pump Anticipated Physical Therapy Frequency: 2-3 times/wk Anticipated Discharge Disposition: home with assist Luis Alvarado, JEVON Pager [phone] Inpatient Physical Therapy Problem: Acute Rehab Services Goal & Intervention Plan Goal: Gait Training Goal Stand Alone Therapy Goal Outcome: Ongoing (Interventions Implemented as Appropriate) 05/15/16 1356 Gait Training Goal Gait Training Goal, Date Established 05/15/16 Gait Training Goal, Time to Achieve 2 days Gait Training Goal, [place] Level independent Gait Training Goal, Assist Device walker, rolling (if necessary) Gait Training Goal, Distance to Achieve 150 ft Goal: Physical Therapy Goal Stand Alone Therapy Goal Outcome: Ongoing (Interventions Implemented as Appropriate) 05/15/16 1356 Physical Therapy Goal PT Goal, Date Established 05/15/16 PT Goal, Time to Achieve 2 days PT Goal, [place] Level supervision required PT Goal, Additional Goal negotiate flight of stairs with rail Goal: Goal Transfer Training Stand Alone Therapy Goal Outcome: Ongoing (Interventions Implemented as Appropriate) 05/15/16 1356 Goal Transfer Training Transfer Training Goal, Date Established 05/15/16 Transfer Training Goal, Time to Achieve 2 days Transfer Training Goal, Activity Type all transfers Transfer Train Goal, [place] Level independent * Plan of Care - [...] Ongoing (Interventions Implemented as Appropriate) 05/09/16 0407 05/10/162125 Plan of Care Review Progress progress towards [...] call mills within reach, Hourly rounding by RN/DRIVE TESTER. Close to nurse's station. Bed alarm / [...] management and to provide a review of [facility] diabetes care. Diabetes History: Roxann Baxter has had diabetes since 1972, she was 16 years old. Has history [...] tract infections Neurological: No weakness or numbness [facility] Past Medical History Diagnosis Date ??? Anxiety [...] Spoke to Dr. Plascencia regarding above recommendations. oil heaterman diabetes care: Medications - Outpatient treatment regimen recommendations pending based on the hospital course. Monitoring - continue BG tid ac & hs Diet - low fat/low carb diet Exercise - weight-bearing exercise 30 min/day, as tolerated I have discussed this case with the attending physician, Dr. Pimentle, who was fully involved in the formulation [...] agree with this plan. ARCHIE PIMENTEL MD Rigger Helpercompany truck driver Section of Endocrinology [facility] * Plan of Care - Delaney Morse [...] call mills within reach, Hourly rounding by RN/DRIVE TESTER. Close to nurse's station. Bed alarm / [...] no Prescription Coverage: Express scripts [facility] Other: Primary Care Provider: Nayla Miramontes MD [phone] Patient/Caregiver Goals of Treatment: Unsure Potential Needs [...] of care planning. Rosa Arreaga RN, BSN, [facility] Manager Distribution Center [facility] [phone] pager#[phone] * Plan of Care - Wilian Zafar RN - 05/09/2016 4:16 AM EST Problem: Skin Integrity Impairment, Risk/Actual (Adult) Goal: Identify Related Risk Factors and Signs and Symptoms Related risk factors and signs and symptoms are identified upon initiation of Human Response Clinical Practice Guideline (CPG) Outcome: Ongoing (Interventions Implemented as Appropriate) 05/09/16 0407 Skin Integrity Impairment, Risk/Actual Skin Integrity Impairment, Risk/Actual: Related Risk Factors surgery/procedure OUTCOME EVALUATION NOTE: OUTCOME SUMMARY: Patient somewhat sleepy at start of shift but was easy to arouse. Patient stated pain well controlled with INDUSTRIAL REGISTERED NURSE. Patient was able to ambulate later from bed to bathroom with one assist and minimal concerns. Blood sugar levels also improved from previous shift and continue q2hr coverage. Patient surgical sites are CDI and otherwise benign. Patient is otherwise stable and VS within acceptable limits. PLAN MOVING FORWARD: Continue to monitor patient post operatively, treat pain with INDUSTRIAL REGISTERED NURSE and prn meds, discharge home whenmedically cleared. [...] care. Outcome: Ongoing (Interventions Implemented as Appropriate) 05/09/16 0407 Skin Integrity Impairment, Risk/Actual (Adult) Skin Integrity/Wound Healing making progress toward outcome Problem: Patient Care Overview Goal: Plan of Care Review Outcome: Ongoing (Interventions Implemented as Appropriate) 02184205/09/16406 Plan of Care Review Progress -- progress towards functional goals is fair Coping/Psychosocial Plan Of Care Reviewed With patient -- Goal: Fall Prevention-Safe Patient Handling Outcome: Ongoing (Interventions Implemented as Appropriate) 05/08/16184205/09/16 0300 [place] Fall Risk History of Falling [...] Control Outcome: Ongoing (Interventions Implemented as Appropriate) 05/08/161842 Safety Interventions Isolation Precautions standard precautions maintained Infection Prevention rest/sleep promoted Coping Strategies Supportive Measures active listening utilized;problem solving facilitated Goal: Discharge Needs Assessment Outcome: Ongoing (Interventions Implemented as Appropriate) 05/09/16406 Discharge Needs Assessment Concerns To Be Addressed [...] Perez MD - 05/08/2016 1:32 PM EST [facility] Operative Note Patient Name: Roxann Baxter : [id number] MR#: [id number] Case Date: 05/08/2016 Surgeon: Surgeon(s) and Role: [...] esophagus was identified and encircled with a Shala drain. This was used for furthertraction in [...] sutures placed behind the esophagus. A 60 Burmese bougie was placed and the mobilized fundus [...] to entrap the vagus nerve. The 60 Burmese bougie was then removed and the [place] removed. All areas were copiously irrigated with [...] 2:30 PM EST Office [place] [address] Alcides Bonilla MD [facility] [place] [address] 04/06/2049 9:00 AM EST Hospital Encounter [place] [address] Harry Guerrero MD [facility] [place] [address] documented as of this encounter Procedures Procedure Name Priority Date/Time Associated Diagnosis Comments SAW MAKER SCAN 05/17/2016 12:00 AM EST POCT GLUCOSE [...] in this encounter Results * SCAN DOC: SAW MAKER (05/17/2016 12:00 AM EST) Anatomical Region Laterality Modality Other Scanning Provider MEDIA MGR SCAN EXT O RDR/RSLT * POCT Glucose (05/16/2016 11:20 AM EST) Glucose, POC 183 65 - 199 mg/dL [facility] Comment: Supplemental ranges: <140 mg/dL before meals <180 mg/dL all other times of the day Blood specimen (specimen) 05/16/2016 11:20 AM EST 05/16/2016 11:20 AM EST Sonja Perez MD POINT OF CARE TEST O JESSICA [facility] [place] [address] * POCT Glucose (05/16/2016 7:12 AM EST) Glucose, POC 92 65 - 199 mg/dL [facility] Comment: Supplemental ranges: <140 mg/dL before meals <180 mg/dL all other times of the day Blood specimen (specimen) 05/16/2016 7:12 AM EST 05/16/2016 7:12 AM EST Sonja Perez MD POINT OF CARE TEST O JESSICA [facility] [place] [address] * POCT Glucose (05/16/2016 3:52 AM EST) Glucose, POC 98 65 - 199 mg/dL [facility] Comment: Supplemental ranges: <140 mg/dL before meals <180 mg/dL all other times of the day Blood specimen (specimen) 05/16/2016 3:52 AM EST 05/16/2016 3:52 AM EST Sonja Perez MD POINT OF CARE TEST Renetta LOPEZ Performing Organization Address [facility] Co de Phone Number [facility] [place] [address] * POCT Glucose (05/16/2016 12:05 AM EST) Glucose, POC 140 65 - 199 mg/dL [facility] Comment: Supplemental ranges: <140 mg/dL before meals <180 mg/dL all other times of the day Blood specimen (specimen) 05/16/2016 12:05 AM EST 05/16/2016 12:05 AM EST Sonja Perez MD POINT OF CARE TEST Renetta LOPEZ Performing Organization Address [facility] Co de Phone Number [facility] [place] [address] * POCT Glucose (05/15/2016 7:33 PM EST) Glucose, POC 182 65 - 199 mg/dL [facility] Comment: Supplemental ranges: <140 mg/dL before meals <180 mg/dL all other times of the day Blood specimen (specimen) 05/15/2016 7:33 PM EST 05/15/2016 7:33 PM EST Sonja Perez MD POINT OF CARE TEST Renetta LOPEZ Performing Organization Address [facility] Co de Phone Number [facility] [place] [address] * (ABNORMAL) POCT Glucose (05/15/2016 4:25 PM EST) Glucose, POC 239(H) 65 - 199 mg/dL [facility] Comment: Supplemental ranges: <140 mg/dL before meals <180 mg/dL all other times of the day Blood specimen (specimen) 05/15/2016 4:25 PM EST 05/15/2016 4:25 PM EST Sonja Perez MD POINT OF CARE TEST O JESSICA Performing Organization Address [facility] Co de Phone Number [facility] [place] [address] * POCT Glucose (05/15/2016 11:27 AM EST) Glucose, POC 198 65 - 199 mg/dL [facility] Comment: Supplemental ranges: <140 mg/dL before meals <180 mg/dL all other times of the day Blood specimen (specimen) 05/15/2016 11:27 AM EST 05/15/2016 11:27 AM EST Sonja Perez MD POINT OF CARE TEST O JESSICA Performing Organization Address [facility] Co de Phone Number [facility] [place] [address] * POCT Glucose (05/15/2016 8:15 AM EST) Glucose, POC 88 65 - 199 mg/dL [facility] Comment: Supplemental ranges: <140 mg/dL before meals <180 mg/dL all other times of the day Blood specimen (specimen) 05/15/2016 8:15 AM EST 05/15/2016 8:15 AM EST Sonja Perze MD POINT OF CARE TEST O JESSICA Performing Organization Address [facility] de Phone Number [facility] [place] [address] * (ABNORMAL) POCT Glucose (05/15/2016 7:31 AM EST) Glucose, POC 63(L) 65 - 199 mg/dL [facility] Comment: Supplemental ranges: <140 mg/dL before meals <180 mg/dL all other times of the day Blood specimen (specimen) 05/15/2016 7:31 AM EST 05/15/2016 7:31 AM EST Sonja Perez MD POINT OF CARE TEST O RDERABLES Performing Organization Address [facility] Co de Phone Number [facility] [place] [address] * Phosphorus (05/15/2016 5:20 AM EST) Phosphorus 3.5 2.5 - 4.5 mg/dL [facility] Blood specimen (specimen) 05/15/2016 5:20 AM EST 05/15/2016 5:28 AM EST Narrative Resulting Agency Comment Spec In Lab Minerva Plascencia MD CHEMISTRY ORDERABL ES Performing Organization Address [facility] de Phone Number [facility] [place] [address] * Magnesium (05/15/2016 5:20 AM EST) Magnesium 0.87 0.69 - 1.07 mmol/L [facility] Blood specimen (specimen) 05/15/2016 5:20 AM EST 05/15/2016 5:28 AM EST Narrative Resulting Agency Comment Spec In Lab Minerva Plascencia MD CHEMISTRY ORDERABL ES Performing Organization Address [facility] Phone Number [facility] [place] [address] * (ABNORMAL) Basic Metabolic Panel (non-fasting) (05/15/2016 5:20 AM EST) Glucose 82 65 - 199 mg/dL [facility] Comment:Diabetes: >=200 mg/d L plus symptoms Blood Urea Nitrogen 9 8 - 18 mg/dL [facility] Creatinine 0.79 0.70 - 1.20 mg/dL [facility] Comment: Please note that the pediatric reference intervals supplied above were not validated at [facility]. Results from pediatric patients should be interpreted in conjunction to the patient's age, height and muscle mass. Sodium 142 135 - 145 mmol/L [facility] Potassium 4.2 3.5 - 5.0 mmol/L [facility] Comment: Please note: ??Patients with WBC >100,000 may have falsely elevated Potassium levels. ??For accurate Potassium quantification in these patients send serum separator tube (gold top) for subsequent determinations. ??Contact the Clinical Chemistry Laboratory if there are any questions. Chloride 102 98 - 107 mmol/L [facility] Carbon Dioxide 32(H) 22 - 31 mmol/L [facility] Anion Gap 8 5 - 15 mmol/L [facility] Calcium 8.6 8.5 - 10.5 mg/dL [facility] Est Glomerular Filtration Rate >60 >=60 [facility] Comment: This estimated GFR (eGFR) value [...] the following links into your internet browser. [email or web address] Blood specimen (specimen) 05/15/2016 5:20 AM EST 05/15/2016 5:28 AM EST Narrative Resulting Agency Comment Spec In Lab Minerva Plascencia MD CHEMISTRY ORDERABL ES [facility] [place] [address] * (ABNORMAL) Hemogram (05/15/2016 5:20 AM EST) White Blood Cell 4.6 4.0 - 9.5 x10(3)/mc L [facility] Red Blood Cell 3.85(L) 4.00 - 5.21 x10(6)/[facility] LABORATORY Hemoglobin 8.9(L) 11.7 - 15.5 gm/dL [facility] Hematocrit 29.0(L) 35.7 - 45.8 % [facility] Mean Cell Volume 75.3(L) 82.6 - 94.4 fL [facility] Mean Cell Hemoglobin 23.1(L) 27.1 - 32.0 pg [facility] Mean Cell Hemoglobin Concentration 30.7(L) 31.7 - 35.0 gm/dL [facility] Platelet 354 145 - 357 x10(3)/[facility] LABORATORY RDW Standard Deviation 46.9(H) 37.0 - 46.0 fL [facility] RDW coefficient of variation 17.4(H) 11.5 - 14.1 % [facility] Mean Platelet Volume 9.5 7.6 - 12.9 [facility] LABORATORY NRBC% auto 0.0 % [facility] NRBC Absolute 0.000 0.000 - 0.000 x10(3)/[facility] LABORATORY Blood specimen (specimen) 05/15/2016 5:20 AM EST 05/15/2016 5:28 AM EST Narrative Resulting Agency Comment Spec In Lab Minerva Plascencia MD HEMATOLOGY ORDERAB LES [facility] [place] [address] * POCT Glucose (05/15/2016 3:31 AM EST) Glucose, POC 86 65 - 199 mg/dL [facility] Comment: Supplemental ranges: <140 mg/dL before meals <180 mg/dL all other times of the day Blood specimen (specimen) 05/15/2016 3:31 AM EST 05/15/2016 3:31 AM EST Sonja Perez MD POINT OF CARE TEST O JESSICA Performing Organization Address [facility] de Phone Number [facility] [place] [address] * POCT Glucose (05/15/2016 12:28 AM EST) Glucose, POC 79 65 - 199 mg/dL [facility] Comment: Supplemental ranges: <140 mg/dL before meals <180 mg/dL all other times of the day Blood specimen (specimen) 05/15/2016 12:28 AM EST 05/15/2016 12:28 AM EST Sonja Perez MD POINT OF CARE TEST Renetta LOPEZ Performing Organization Address [facility] Phone Number [facility] [place] [address] * POCT Glucose (05/15/2016 12:00 AM EST) Glucose, POC 65 65 - 199 mg/dL [facility] Comment: Supplemental ranges: <140 mg/dL before meals <180 mg/dL all other times of the day Blood specimen (specimen) 05/15/2016 05/15/2016 12:00 AM EST Sonja Perez MD POINT OF CARE TEST Renetta LOPEZ Performing Organization Address [facility] de Phone Number [facility] [place] [address] * POCT Glucose (05/14/2016 11:37 PM EST) Glucose, POC 68 65 - 199 mg/dL [facility] Comment: Supplemental ranges: <140 mg/dL before meals <180 mg/dL all other times of the day Blood specimen (specimen) 05/14/2016 11:37 PM EST 05/14/2016 11:37 PM EST Sonja Perez MD POINT OF CARE TEST O JESSICA Performing Organization Address [facility] Co de Phone Number [facility] [place] [address] * POCT Glucose (05/14/2016 7:02 PM EST) Glucose, POC 95 65 - 199 mg/dL [facility] Comment: Supplemental ranges: <140 mg/dL before meals <180 mg/dL all other times of the day Blood specimen (specimen) 05/14/2016 7:02 PM EST 05/14/2016 7:02 PM EST Sonja Perez MD POINT OF CARE TEST Renetta LOPEZ Performing Organization Address [facility] Co de Phone Number [facility] [place] [address] * POCT Glucose (05/14/2016 3:55 PM EST) Glucose, POC 166 65 - 199 mg/dL [facility] Comment: Supplemental ranges: <140 mg/dL before meals <180 mg/dL all other times of the day Blood specimen (specimen) 05/14/2016 3:55 PM EST 05/14/2016 3:55 PM EST Sonja Perez MD POINT OF CARE TEST Renetta LOPEZ Performing Organization Address [facility] Co de Phone Number [facility] [place] [address] * (ABNORMAL) POCT Glucose (05/14/2016 1:49 PM EST) Glucose, POC 294(H) 65 - 199 mg/dL [facility] Comment: Supplemental ranges: <140 mg/dL before meals <180 mg/dL all other times of the day Blood specimen (specimen) 05/14/2016 1:49 PM EST 05/14/2016 1:49 PM EST Sonja Perez MD POINT OF CARE TEST O RDERABLES Performing Organization Address [facility] Co de Phone Number [facility] [place] [address] * (ABNORMAL) POCT Glucose (05/14/2016 11:29 AM EST) Glucose, POC 256(H) 65 - 199 mg/dL [facility] Comment: Supplemental ranges: <140 mg/dL before meals <180 mg/dL all other times of the day Blood specimen (specimen) 05/14/2016 11:29 AM EST 05/14/2016 11:29 AM EST Sonja Perez MD POINT OF CARE TEST O RDERARADHA Performing Organization Address [facility] de Phone Number [facility] [place] [address] * POCT Glucose (05/14/2016 7:15 AM EST) Glucose, POC 80 65 - 199 mg/dL [facility] Comment: Supplemental ranges: <140 mg/dL before meals <180 mg/dL all other times of the day Blood specimen (specimen) 05/14/2016 7:15 AM EST 05/14/2016 7:15 AM EST Sonja Perez MD POINT OF CARE TEST O RDERABLES Performing Organization Address [facility] de Phone Number [facility] [place] [address] * Phosphorus (05/14/2016 5:30 AM EST) Phosphorus 3.3 2.5 - 4.5 mg/dL [facility] Blood specimen (specimen) 05/14/2016 5:30 AM EST 05/14/2016 5:40 AM EST Narrative Resulting Agency Comment Spec In Lab Minerva Plascencia MD CHEMISTRY ORDERABL ES Performing Organization Address [facility] Co de Phone Number [facility] [place] [address] * Magnesium (05/14/2016 5:30 AM EST) Magnesium 0.89 0.69 - 1.07 mmol/L [facility] Blood specimen (specimen) 05/14/2016 5:30 AM EST 05/14/2016 5:40 AM EST Narrative Resulting Agency Comment Spec In Lab Minerva Plascencia MD CHEMISTRY ORDERABL ES [facility] [place] [address] * (ABNORMAL) Basic Metabolic Panel (non-fasting) (05/14/2016 5:30 AM EST) Glucose 112 65 - 199 mg/dL [facility] Comment:Diabetes: >=200 mg/d L plus symptoms Blood Urea Nitrogen 8 8 - 18 mg/dL [facility] Creatinine 0.73 0.70 - 1.20 mg/dL [facility] Comment: Please note that the pediatric reference intervals supplied above were not validated at [facility]. Results from pediatric patients should be interpreted in conjunction to the patient's age, height and muscle mass. Sodium 142 135 - 145 mmol/L [facility] Potassium 4.5 3.5 - 5.0 mmol/L [facility] Comment: Please note: ??Patients with WBC >100,000 may have falsely elevated Potassium levels. ??For accurate Potassium quantification in these patients send serum separator tube (gold top) for subsequent determinations. ??Contact the Clinical Chemistry Laboratory if there are any questions. Chloride 101 98 - 107 mmol/L [facility] Carbon Dioxide 32(H) 22 - 31 mmol/L [facility] Anion Gap 9 5 - 15 mmol/L [facility] Calcium 8.6 8.5 - 10.5 mg/dL [facility] Est Glomerular Filtration Rate >60 >=60 [facility] Comment: This estimated GFR (eGFR) value [...] the following links into your internet browser. [email or web address] Blood specimen (specimen) 05/14/2016 5:30 AM EST 05/14/2016 5:40 AM EST Narrative Resulting Agency Comment Spec In Lab Minerva Plascencia MD CHEMISTRY ORDERABL ES [facility] [place] [address] * (ABNORMAL) Hemogram (05/14/2016 5:30 AM EST) White Blood Cell 5.3 4.0 - 9.5 x10(3)/mc L [facility] Red Blood Cell 3.97(L) 4.00 - 5.21 x10(6)/mc L [facility] Hemoglobin 9.2(L) 11.7 - 15.5 gm/dL [facility] Hematocrit 29.6(L) 35.7 - 45.8 % [facility] Mean Cell Volume 74.6(L) 82.6 - 94.4 fL [facility] Mean Cell Hemoglobin 23.2(L) 27.1 - 32.0 pg [facility] Mean Cell Hemoglobin Concentration 31.1(L) 31.7 - 35.0 gm/dL [facility] Platelet 344 145 - 357 x10(3)/mc L [facility] RDW Standard Deviation 45.9 37.0 - 46.0 fL [facility] RDW coefficient of variation 17.2(H) 11.5 - 14.1 % [facility] Mean Platelet Volume 9.5 7.6 - 12.9 fL [facility] NRBC% auto 0.0 % [facility] NRBC Absolute 0.000 0.000 - 0.000 x10(3)/mc L [facility] Blood specimen (specimen) 05/14/2016 5:30 AM EST 05/14/2016 5:40 AM EST Narrative Resulting Agency Comment Spec In Lab Minerva Plascencia MD HEMATOLOGY ORDERAB LES [facility] [place] [address] * POCT Glucose (05/14/2016 3:42 AM EST) Glucose, POC 171 65 - 199 mg/dL [facility] Comment: Supplemental ranges: <140 mg/dL before meals <180 mg/dL all other times of the day Blood specimen (specimen) 05/14/2016 3:42 AM EST 05/14/2016 3:42 AM EST Sonja Perez MD POINT OF CARE TEST O RDERARADHA Performing Organization Address [facility]/ZIP Co de Phone Number [facility] [place] [address] * POCT Glucose (05/14/2016 2:09 AM EST) Glucose, POC 195 65 - 199 mg/dL [facility] Comment: Supplemental ranges: <140 mg/dL before meals <180 mg/dL all other times of the day Blood specimen (specimen) 05/14/2016 2:09 AM EST 05/14/2016 2:09 AM EST Sonja Perez MD POINT OF CARE TEST O RDERARADHA Performing Organization Address City/[facility]/ZIP Co de Phone Number [facility] [place] [address] * (ABNORMAL) POCT Glucose (05/14/2016 12:11 AM EST) Glucose, POC 303(H) 65 - 199 mg/dL [facility] Comment: Supplemental ranges: <140 mg/dL before meals <180 mg/dL all other times of the day Blood specimen (specimen) 05/14/2016 12:11 AM EST 05/14/2016 12:11 AM EST Sonja Perez MD POINT OF CARE TEST O JESSICA Performing Organization Address City/[facility] Co de Phone Number [facility] [place] [address] * (ABNORMAL) POCT Glucose (05/13/2016 7:03 PM EST) Glucose, POC 204(H) 65 - 199 mg/dL [facility] Comment: Supplemental ranges: <140 mg/dL before meals <180 mg/dL all other times of the day Blood specimen (specimen) 05/13/2016 7:03 PM EST 05/13/2016 7:03 PM EST Sonja Perez MD POINT OF CARE TEST O JESSICA Performing Organization Address [facility] Co de Phone Number [facility] [place] [address] * POCT Glucose (05/13/2016 4:01 PM EST) Glucose, POC 174 65 - 199 mg/dL [facility] Comment: Supplemental ranges: <140 mg/dL before meals <180 mg/dL all other times of the day Blood specimen (specimen) 05/13/2016 4:01 PM EST 05/13/2016 4:01 PM EST Sonja Perez MD POINT OF CARE TEST O JESSICA Performing Organization Address [facility] Co de Phone Number [facility] [place] [address] * XR Fluoro Barium Swallow (05/13/2016 2:08 [...] with toupet fundoplicaion now c/o dysphagia TECHNIQUE: [employer] radiograph of the upper abdomen was obtained. Single contrast esophagram was performed with water-soluble contrast (Omnipaque 300) followed by thin barium. Fluoroscopic spot images and radiographs were obtained in multiple projections. Fluoroscopic time: 1.63 minutes COMPARISON: Multiple prior exams, most recently 02/11/2016 esophagram FINDINGS: [employer] radiograph demonstrates partially imaged nonobstructive bowel gas [...] with toupet fundoplicaion now c/o dysphagia TECHNIQUE: [employer] radiograph of the upper abdomen was obtained. Singlecontrast esophagram was performed with water-soluble contrast (Omnipaque 300)followed by thin barium. Fluoroscopic spot images and radiographs were obtained inmultiple projections. Fluoroscopic time: 1.63 minutes COMPARISON: Multiple prior exams, most recently 02/11/2016 esophagram FINDINGS: [employer] Clerk radiograph demonstrates partially imaged nonobstructive bowel gaspattern. [...] Glucose, POC 143 65 - 199 mg/dL [facility] Comment: Supplemental ranges: <140 mg/dL before meals <180 mg/dL all other times of the day Blood specimen (specimen) 05/13/2016 11:16 AM EST 05/13/2016 11:16 AM EST Sonja Perez MD POINT OF CARE TEST O JESSICA Performing Organization Address [facility]/ZIP Co de Phone Number [facility] [place] [address] * POCT Glucose (05/13/2016 7:17 AM EST) Glucose, POC 88 65 - 199 mg/dL [facility] Comment: Supplemental ranges: <140 mg/dL before meals <180 mg/dL all other times of the day Blood specimen (specimen) 05/13/2016 7:17 AM EST 05/13/2016 7:17 AM EST Sonja Perez MD POINT OF CARE TEST O RDERARADHA [facility] [place] [address] * Phosphorus (05/13/2016 5:22 AM EST) Phosphorus 3.8 2.5 - 4.5 mg/dL [facility] Blood specimen (specimen) 05/13/2016 5:22 AM EST 05/13/2016 5:33 AM EST Narrative Resulting Agency Comment Spec In Lab Minerva Plascencia MD CHEMISTRY ORDERABL ES Performing Organization Address [facility] Co de Phone Number [facility] [place] [address] * Magnesium (05/13/2016 5:22 AM EST) Pathologist [facility] Magnesium 0.76 0.69 - 1.07 mmol/L [facility] Blood specimen (specimen) 05/13/2016 5:22 AM EST 05/13/2016 5:33 AM EST Narrative Resulting Agency Comment Spec In Lab Minerva Plascencia MD CHEMISTRY ORDERABL ES Performing Organization Address [facility] Co de Phone Number [facility] [place] [address] * (ABNORMAL) Basic Metabolic Panel (non-fasting) (05/13/2016 5:22 AM EST) Glucose 69 65 - 199 mg/dL [facility] Comment:Diabetes: >=200 mg/d L plus symptoms Blood Urea Nitrogen 6(L) 8 - 18 mg/dL [facility] Creatinine 0.63(L) 0.70 - 1.20 mg/dL [facility] Comment: Please note that the pediatric reference intervals supplied above were not validated at [facility]. Results from pediatric patients should be interpreted in conjunction to the patient's age, height and muscle mass. Sodium 143 135 - 145 mmol/L [facility] Potassium 4.2 3.5 - 5.0 mmol/L [facility] Comment: Please note: ??Patients with WBC >100,000 may have falsely elevated Potassium levels. ??For accurate Potassium quantification in these patients send serum separator tube (gold top) for subsequent determinations. ??Contact the Clinical Chemistry Laboratory if there are any questions. Chloride 103 98 - 107 mmol/L [facility] Carbon Dioxide 33(H) 22 - 31 mmol/L [facility] Anion Gap 7 5 - 15 mmol/L [facility] Calcium 8.7 8.5 - 10.5 mg/dL [facility] Est Glomerular Filtration Rate >60 >=60 [facility] Comment: This estimated GFR (eGFR) value [...] the following links into your internet browser. [email or web address] Blood specimen (specimen) 05/13/2016 5:22 AM EST 05/13/2016 5:33 AM EST Narrative Resulting Agency Comment Spec In Lab Minerva Plascencia MD CHEMISTRY ORDERABL ES [facility] [place] [address] * (ABNORMAL) Hemogram (05/13/2016 5:22 AM EST) White Blood Cell 4.7 4.0 - 9.5 x10(3)/mc L [facility] Red Blood Cell 3.98(L) 4.00 - 5.21 x10(6)/mc L [facility] Hemoglobin 9.1(L) 11.7 - 15.5 gm/dL [facility] Hematocrit 29.9(L) 35.7 - 45.8 % [facility] Mean Cell Volume 75.1(L) 82.6 - 94.4 fL [facility] Mean Cell Hemoglobin 22.9(L) 27.1 - 32.0 pg [facility] Mean Cell Hemoglobin Concentration 30.4(L) 31.7 - 35.0 gm/dL [facility] Platelet 308 145 - 357 x10(3)/mc L [facility] RDW Standard Deviation 45.8 37.0 - 46.0 fL [facility] RDW coefficient of variation 17.2(H) 11.5 - 14.1 % [facility] Mean Platelet Volume 9.5 7.6 - 12.9 [facility] LABORATORY NRBC% auto 0.0 % [facility] NRBC Absolute 0.000 0.000 - 0.000 x10(3)/mc L [facility] Blood specimen (specimen) 05/13/2016 5:22 AM EST 05/13/2016 5:33 AM EST Narrative Resulting Agency Comment Spec In Lab Minerva Plascencia MD HEMATOLOGY ORDERAB LES [facility] [place] [address] * POCT Glucose (05/13/2016 4:08 AM EST) Glucose, POC 71 65 - 199 mg/dL [facility] Comment: Supplemental ranges: <140 mg/dL before meals <180 mg/dL all other times of the day Blood specimen (specimen) 05/13/2016 4:08 AM EST 05/13/2016 4:08 AM EST Sonja Perez MD POINT OF CARE TEST O RDERABLES [facility] [place] [address] * POCT Glucose (05/13/2016 1:12 AM EST) Glucose, POC 83 65 - 199 mg/dL [facility] Comment: Supplemental ranges: <140 mg/dL before meals <180 mg/dL all other times of the day Blood specimen (specimen) 05/13/2016 1:12 AM EST 05/13/2016 1:12 AM EST Sonja Perez MD POINT OF CARE TEST O JESSICA Performing Organization Address [facility]/ZIP Co de Phone Number [facility] [place] [address] * POCT Glucose (05/12/2016 11:52 PM EST) Glucose, POC 79 65 - 199 mg/dL [facility] Comment: Supplemental ranges: <140 mg/dL before meals <180 mg/dL all other times of the day Blood specimen (specimen) 05/12/2016 11:52 PM EST 05/12/2016 11:52 PM EST Sonja Perez MD POINT OF CARE TEST O JESSICA Performing Organization Address [facility] Co de Phone Number [facility] [place] [address] * (ABNORMAL) POCT Glucose (05/12/2016 11:12 PM EST) Glucose, POC 52(Critica l) 65 - 199 mg/dL [facility] Comment: Supplemental ranges: <140 mg/dL before meals <180 mg/dL all other times of the day Blood specimen (specimen) 05/12/2016 11:12 PM EST 05/12/2016 11:12 PM EST Sonja Perez MD POINT OF CARE TEST O JESSICA Performing Organization Address [facility] Co de Phone Number [facility] [place] [address] * POCT Glucose (05/12/2016 7:13 PM EST) Glucose, POC 182 65 - 199 mg/dL [facility] Comment: Supplemental ranges: <140 mg/dL before meals <180 mg/dL all other times of the day Blood specimen (specimen) 05/12/2016 7:13 PM EST 05/12/2016 7:13 PM EST Sonja Perez MD POINT OF CARE TEST O JESSICA Performing Organization Address [facility] Co de Phone Number [facility] [place] [address] * (ABNORMAL) POCT Glucose (05/12/2016 3:37 PM EST) Glucose, POC 221(H) 65 - 199 mg/dL [facility] Comment: Supplemental ranges: <140 mg/dL before meals <180 mg/dL all other times of the day Blood specimen (specimen) 05/12/2016 3:37 PM EST 05/12/2016 3:37 PM EST Sonja Perez MD POINT OF CARE TEST Renetta LOPEZ Performing Organization Address [facility] Co de Phone Number [facility] [place] [address] * (ABNORMAL) POCT Glucose (05/12/2016 11:27 AM EST) Glucose, POC 226(H) 65 - 199 mg/dL [facility] Comment: Supplemental ranges: <140 mg/dL before meals <180 mg/dL all other times of the day Blood specimen (specimen) 05/12/2016 11:27 AM EST 05/12/2016 11:27 AM EST Sonja Perez MD POINT OF CARE TEST O JESSICA Performing Organization Address [facility] Co de Phone Number [facility] [place] [address] * POCT Glucose (05/12/2016 7:27 AM EST) Glucose, POC 125 65 - 199 mg/dL [facility] Comment: Supplemental ranges: <140 mg/dL before meals <180 mg/dL all other times of the day Blood specimen (specimen) 05/12/2016 7:27 AM EST 05/12/2016 7:27 AM EST Sonja Perez MD POINT OF CARE TEST O JESSICA Performing Organization Address [facility] Co de Phone Number [facility] [place] [address] * POCT Glucose (05/12/2016 6:53 AM EST) Glucose, POC 68 65 - 199 mg/dL [facility] Comment: Supplemental ranges: <140 mg/dL before meals <180 mg/dL all other times of the day Blood specimen (specimen) 05/12/2016 6:53 AM EST 05/12/2016 6:53 AM EST Sonja Perez MD POINT OF CARE TEST O JESSICA Performing Organization Address [facility] Co de Phone Number [facility] [place] [address] * (ABNORMAL) POCT Glucose (05/12/2016 6:25 AM EST) Glucose, POC 57(L) 65 - 199 mg/dL [facility] Comment: Supplemental ranges: <140 mg/dL before meals <180 mg/dL all other times of the day Blood specimen (specimen) 05/12/2016 6:25 AM EST 05/12/2016 6:25 AM EST Sonja Perez MD POINT OF CARE TEST O JESSICA Performing Organization Address [facility] Co de Phone Number [facility] [place] [address] * Phosphorus (05/12/2016 5:08 AM EST) Phosphorus 4.4 2.5 - 4.5 mg/dL [facility] Blood specimen (specimen) 05/12/2016 5:08 AM EST 05/12/2016 5:19 AM EST Narrative Resulting Agency Comment Spec In Lab Minerva Plascencia MD CHEMISTRY ORDERABL ES Performing Organization Address [facility] Co de Phone Number [facility] [place] [address] * Magnesium (05/12/2016 5:08 AM EST) Pathologist [facility] Magnesium 0.87 0.69 - 1.07 mmol/L [facility] Blood specimen (specimen) 05/12/2016 5:08 AM EST 05/12/2016 5:19 AM EST Narrative Resulting Agency Comment Spec In Lab Minerva Plascencia MD CHEMISTRY ORDERABL ES Performing Organization Address [facility] de Phone Number [facility] [place] [address] * (ABNORMAL) Basic Metabolic Panel (non-fasting) (05/12/2016 5:08 AM EST) Glucose 64(L) 65 - 199 mg/dL [facility] Comment:Diabetes: >=200 mg/d L plus symptoms Blood Urea Nitrogen 7(L) 8 - 18 mg/dL [facility] Creatinine 0.65(L) 0.70 - 1.20 mg/dL [facility] Comment: Please note that the pediatric reference intervals supplied above were not validated at [facility]. Results from pediatric patients should be interpreted in conjunction to the patient's age, height and muscle mass. Sodium 143 135 - 145 mmol/L [facility] Potassium 4.0 3.5 - 5.0 mmol/L [facility] Comment: Please note: ??Patients with WBC >100,000 may have falsely elevated Potassium levels. ??For accurate Potassium quantification in these patients send serum separator tube (gold top) for subsequent determinations. ??Contact the Clinical Chemistry Laboratory if there are any questions. Chloride 102 98 - 107 mmol/L [facility] Carbon Dioxide 32(H) 22 - 31 mmol/L [facility] Anion Gap 9 5 - 15 mmol/L [facility] Calcium 8.6 8.5 - 10.5 mg/dL [facility] Est Glomerular Filtration Rate >60 >=60 [facility] Comment: This estimated GFR (eGFR) value [...] the following links into your internet browser. [email or web address] Blood specimen (specimen) 05/12/2016 5:08 AM EST 05/12/2016 5:19 AM EST Narrative Resulting Agency Comment Spec In Lab Minerva Plascencia MD CHEMISTRY ORDERABL ES [facility] [place] [address] * (ABNORMAL) Hemogram (05/12/2016 5:08 AM EST) White Blood Cell 4.6 4.0 - 9.5 x10(3)/mc L [facility] Red Blood Cell 4.17 4.00 - 5.21 x10(6)/mc L [facility] Hemoglobin 9.3(L) 11.7 - 15.5 gm/dL [facility] Hematocrit 31.0(L) 35.7 - 45.8 % [facility] Mean Cell Volume 74.3(L) 82.6 - 94.4 fL [facility] Mean Cell Hemoglobin 22.3(L) 27.1 - 32.0 pg [facility] Mean Cell Hemoglobin Concentration 30.0(L) 31.7 - 35.0 gm/dL [facility] Platelet 284 145 - 357 x10(3)/mc L [facility] RDW Standard Deviation 45.5 37.0 - 46.0 fL [facility] RDW coefficient of variation 17.0(H) 11.5 - 14.1 % [facility] Mean Platelet Volume 9.0 7.6 - 12.9 fL [facility] NRBC% auto 0.0 % [facility] NRBC Absolute 0.000 0.000 - 0.000 x10(3)/mc L [facility] Blood specimen (specimen) 05/12/2016 5:08 AM EST 05/12/2016 5:19 AM EST Narrative Resulting Agency Comment Spec In Lab Minerva Plascencia MD HEMATOLOGY ORDERAB LES Performing Organization Address [facility] Co de Phone Number [facility] [place] [address] * POCT Glucose (05/12/2016 3:47 AM EST) Glucose, POC 79 65 - 199 mg/dL [facility] Comment: Supplemental ranges: <140 mg/dL before meals <180 mg/dL all other times of the day Blood specimen (specimen) 05/12/2016 3:47 AM EST 05/12/2016 3:47 AM EST Sonja Perez MD POINT OF CARE TEST O RDERABLES Performing Organization Address [facility]/ZIP Co de Phone Number [facility] [place] [address] * POCT Glucose (05/11/2016 11:45 PM EST) Glucose, POC 79 65 - 199 mg/dL [facility] Comment: Supplemental ranges: <140 mg/dL before meals <180 mg/dL all other times of the day Blood specimen (specimen) 05/11/2016 11:45 PM EST 05/11/2016 11:45 PM EST Sonja Perez MD POINT OF CARE TEST O JESSICA Performing Organization Address [facility] Co de Phone Number [facility] [place] [address] * POCT Glucose (05/11/2016 7:01 PM EST) Glucose, POC 83 65 - 199 mg/dL [facility] Comment: Supplemental ranges: <140 mg/dL before meals <180 mg/dL all other times of the day Blood specimen (specimen) 05/11/2016 7:01 PM EST 05/11/2016 7:01 PM EST Sonja Perez MD POINT OF CARE TEST O JESSICA Performing Organization Address [facility] Co de Phone Number [facility] [place] [address] * POCT Glucose (05/11/2016 3:41 PM EST) Glucose, POC 176 65 - 199 mg/dL [facility] Comment: Supplemental ranges: <140 mg/dL before meals <180 mg/dL all other times of the day Blood specimen (specimen) 05/11/2016 3:41 PM EST 05/11/2016 3:41 PM EST Sonja Perez MD POINT OF CARE TEST O JESSICA Performing Organization Address [facility] Co de Phone Number [facility] [place] [address] * (ABNORMAL) POCT Glucose (05/11/2016 1:53 PM EST) Glucose, POC 220(H) 65 - 199 mg/dL [facility] Comment: Supplemental ranges: <140 mg/dL before meals <180 mg/dL all other times of the day Blood specimen (specimen) 05/11/2016 1:53 PM EST 05/11/2016 1:53 PM EST Sonja Perez MD POINT OF CARE TEST O RDERABLES Performing Organization Address [facility] de Phone Number [facility] [place] [address] * (ABNORMAL) POCT Glucose (05/11/2016 11:42 AM EST) Glucose, POC 255(H) 65 - 199 mg/dL [facility] Comment: Supplemental ranges: <140 mg/dL before meals <180 mg/dL all other times of the day Blood specimen (specimen) 05/11/2016 11:42 AM EST 05/11/2016 11:42 AM EST Sonja Perez MD POINT OF CARE TEST O RDERABLES Performing Organization Address [facility] Phone Number [facility] [place] [address] * POCT Glucose (05/11/2016 7:58 AM EST) Glucose, POC 90 65 - 199 mg/dL [facility] Comment: Supplemental ranges: <140 mg/dL before meals <180 mg/dL all other times of the day Blood specimen (specimen) 05/11/2016 7:58 AM EST 05/11/2016 7:58 AM EST Sonja Perez MD POINT OF CARE TEST O RDERABLES Performing Organization Address [facility] Phone Number [facility] [place] [address] * Phosphorus (05/11/2016 5:54 AM EST) Phosphorus 3.5 2.5 - 4.5 mg/dL [facility] Blood specimen (specimen) Venous Draw / Unknown 05/11/2016 5:54 AM EST 05/11/2016 5:58 AM EST Narrative Resulting Agency Comment Spec In Lab Minerva Plascencia MD CHEMISTRY ORDERABL ES Performing Organization Address [facility]/ZIP Co de Phone Number [facility] [place] [address] * Magnesium (05/11/2016 5:54 AM EST) [facility] Magnesium 0.74 0.69 - 1.07 mmol/L [facility] Blood specimen (specimen) Venous Draw / Unknown 05/11/2016 5:54 AM EST 05/11/2016 5:58 AM EST Narrative Resulting Agency Comment Spec In Lab Minerva Plascencia MD CHEMISTRY ORDERABL ES [facility] [place] [address] * (ABNORMAL) Basic Metabolic Panel (non-fasting) (05/11/2016 5:54 AM EST) [facility] Glucose 99 65 - 199 mg/dL [facility] Comment:Diabetes: >=200 mg/d L plus symptoms Blood Urea Nitrogen 11 8 - 18 mg/dL [facility] Creatinine 0.72 0.70 - 1.20 mg/dL [facility] Comment: Please note that the pediatric reference intervals supplied above were not validated at [facility]. Results from pediatric patients should be interpreted in conjunction to the patient's age, height and muscle mass. Sodium 139 135 - 145 mmol/L [facility] Potassium 4.2 3.5 - 5.0 mmol/L [facility] Comment: Please note: ??Patients with WBC >100,000 may have falsely elevated Potassium levels. ??For accurate Potassium quantification in these patients send serum separator tube (gold top) for subsequent determinations. ??Contact the Clinical Chemistry Laboratory if there are any questions. Chloride 99 98 - 107 mmol/L [facility] Carbon Dioxide 32(H) 22 - 31 mmol/L [facility] Anion Gap 8 5 - 15 mmol/L [facility] Calcium 8.3(L) 8.5 - 10.5 mg/dL [facility] Est Glomerular Filtration Rate >60 >=60 [facility] Comment: This estimated GFR (eGFR) value [...] the following links into your internet browser. [email or web address] Blood specimen (specimen) 05/11/2016 5:54 AM EST 05/11/2016 5:58 AM EST Narrative Resulting Agency Comment Spec In Lab Minerva Plascencia MD CHEMISTRY ORDERABL ES [facility] [place] [address] * (ABNORMAL) Hemogram (05/11/2016 5:54 AM EST) White Blood Cell 4.4 4.0 - 9.5 x10(3)/mc L [facility] Red Blood Cell 3.73(L) 4.00 - 5.21 x10(6)/mc L [facility] Hemoglobin 8.5(L) 11.7 - 15.5 gm/dL [facility] Hematocrit 27.6(L) 35.7 - 45.8 % [facility] Mean Cell Volume 74.0(L) 82.6 - 94.4 fL [facility] Mean Cell Hemoglobin 22.8(L) 27.1 - 32.0 pg [facility] Mean Cell Hemoglobin Concentration 30.8(L) 31.7 - 35.0 gm/dL [facility] Platelet 255 145 - 357 x10(3)/mc L [facility] RDW Standard Deviation 45.8 37.0 - 46.0 fL [facility] RDW coefficient of variation 17.1(H) 11.5 - 14.1 % [facility] Mean Platelet Volume 9.3 7.6 - 12.9 fL [facility] NRBC% auto 0.0 % [facility] NRBC Absolute 0.000 0.000 - 0.000 x10(3)/mc L [facility] Blood specimen (specimen) 05/11/2016 5:54 AM EST 05/11/2016 5:58 AM EST Narrative Resulting Agency Comment Spec In Lab Minerva Plascencia MD HEMATOLOGY ORDERAB LES [facility] [place] [address] * POCT Glucose (05/11/2016 3:49 AM EST) Glucose, POC 71 65 - 199 mg/dL [facility] Comment: Supplemental ranges: <140 mg/dL before meals <180 mg/dL all other times of the day Blood specimen (specimen) 05/11/2016 3:49 AM EST 05/11/2016 3:49 AM EST Sonja Perez MD POINT OF CARE TEST O RDERARADHA Performing Organization Address City/[facility]/ZIP Co de Phone Number [facility] [place] [address] * POCT Glucose (05/10/2016 11:58 PM EST) Glucose, POC 109 65 - 199 mg/dL [facility] Comment: Supplemental ranges: <140 mg/dL before meals <180 mg/dL all other times of the day Blood specimen (specimen) 05/10/2016 11:58 PM EST 05/10/2016 11:58 PM EST Sonja Perez MD POINT OF CARE TEST O RDERARADHA [facility] [place] [address] * POCT Glucose (05/10/2016 7:58 PM EST) Glucose, POC 181 65 - 199 mg/dL [facility] Comment: Supplemental ranges: <140 mg/dL before meals <180 mg/dL all other times of the day Blood specimen (specimen) 05/10/2016 7:58 PM EST 05/10/2016 7:58 PM EST Sonja Perez MD POINT OF CARE TEST O JESSICA Performing Organization Address City/[facility]/ZIP Co de Phone Number [facility] [place] [address] * (ABNORMAL) POCT Glucose (05/10/2016 6:07 PM EST) Glucose, POC 241(H) 65 - 199 mg/dL [facility] Comment: Supplemental ranges: <140 mg/dL before meals <180 mg/dL all other times of the day Blood specimen (specimen) 05/10/2016 6:07 PM EST 05/10/2016 6:07 PM EST Sonja Perez MD POINT OF CARE TEST O JESSICA Performing Organization Address [facility] Co de Phone Number [facility] [place] [address] * (ABNORMAL) POCT Glucose (05/10/2016 4:28 PM EST) Glucose, POC 268(H) 65 - 199 mg/dL [facility] Comment: Supplemental ranges: <140 mg/dL before meals <180 mg/dL all other times of the day Blood specimen (specimen) 05/10/2016 4:28 PM EST 05/10/2016 4:28 PM EST Sonja Perez MD POINT OF CARE TEST O JESSICA Performing Organization Address City/[facility] Co de Phone Number [facility] [place] [address] * POCT Glucose (05/10/2016 11:45 AM EST) Glucose, POC 138 65 - 199 mg/dL [facility] Comment: Supplemental ranges: <140 mg/dL before meals <180 mg/dL all other times of the day Blood specimen (specimen) 05/10/2016 11:45 AM EST 05/10/2016 11:45 AM EST Sonja Perez MD POINT OF CARE TEST O RDERABLES Performing Organization Address [facility] Co de Phone Number [facility] [place] [address] * Phosphorus (05/10/2016 11:22 AM EST) Pathologist [facility] Phosphorus 2.7 2.5 - 4.5 mg/dL [facility] Blood specimen (specimen) 05/10/2016 11:22 AM EST 05/10/2016 11:34 AM EST Narrative Resulting Agency Comment Spec In Lab Minerva Plascencia MD CHEMISTRY ORDERABL ES Performing Organization Address [facility] Phone Number [facility] [place] [address] * Magnesium (05/10/2016 11:22 AM EST) Magnesium 0.76 0.69 - 1.07 mmol/L [facility] Blood specimen (specimen) 05/10/2016 11:22 AM EST 05/10/2016 11:34 AM EST Narrative Resulting Agency Comment Spec In Lab Minerva Plascencia MD CHEMISTRY ORDERABL ES Performing Organization Address [facility] Phone Number [facility] [place] [address] * (ABNORMAL) Basic Metabolic Panel (non-fasting) (05/10/2016 11:22 AM EST) Glucose 125 65 - 199 mg/dL [facility] Comment:Diabetes: >=200 mg/d L plus symptoms Blood Urea Nitrogen 11 8 - 18 mg/dL [facility] Creatinine 0.68(L) 0.70 - 1.20 mg/dL [facility] Comment: Please note that the pediatric reference intervals supplied above were not validated at [facility]. Results from pediatric patients should be interpreted in conjunction to the patient's age, height and muscle mass. Sodium 138 135 - 145 mmol/L [facility] Potassium 3.9 3.5 - 5.0 mmol/L [facility] Comment: Please note: ??Patients with WBC >100,000 may have falsely elevated Potassium levels. ??For accurate Potassium quantification in these patients send serum separator tube (gold top) for subsequent determinations. ??Contact the Clinical Chemistry Laboratory if there are any questions. Chloride 99 98 - 107 mmol/L [facility] Carbon Dioxide 27 22 - 31 mmol/L [facility] Anion Gap 12 5 - 15 mmol/L [facility] Calcium 7.7(L) 8.5 - 10.5 mg/dL [facility] Est Glomerular Filtration Rate >60 >=60 [facility] Comment: This estimated GFR (eGFR) value [...] the following links into your internet browser. [email or web address] Blood specimen (specimen) 05/10/2016 11:22 AM EST 05/10/2016 11:34 AM EST Narrative Resulting Agency Comment Spec In Lab Minerva Plascencia MD CHEMISTRY ORDERABL ES [facility] [place] [address] * (ABNORMAL) Hemogram (05/10/2016 11:22 AM EST) Pathologist [facility] White Blood Cell 4.4 4.0 - 9.5 x10(3)/[facility] LABORATORY Red Blood Cell 3.85(L) 4.00 - 5.21 x10(6)/[facility]ORY Hemoglobin 8.7(L) 11.7 - 15.5 gm/dL [facility] Hematocrit 28.6(L) 35.7 - 45.8 % [facility] Mean Cell Volume 74.3(L) 82.6 - 94.4 fL [facility] Mean Cell Hemoglobin 22.6(L) 27.1 - 32.0 pg [facility] Mean Cell Hemoglobin Concentration 30.4(L) 31.7 - 35.0 gm/dL [facility] Platelet 240 145 - 357 x10(3)/[facility] LABORATORY RDW Standard Deviation 46.5(H) 37.0 - 46.0 [facility] LABORATORY RDW coefficient of variation 17.3(H) 11.5 - 14.1 % [facility] Mean Platelet Volume 9.1 7.6 - 12.9 [facility] LABORATORY NRBC% auto 0.0 % [facility] NRBC Absolute 0.000 0.000 - 0.000 x10(3)/[facility] LAB[facility]ATORY Blood specimen (specimen) 05/10/2016 11:22 AM EST 05/10/2016 11:34 AM EST Narrative Resulting Agency Comment Spec In Lab Minerva Plascencia MD HEMATOLOGY ORDERAB LES [facility] [place] [address] * POCT Glucose (05/10/2016 9:53 AM EST) Pathologist [facility] Glucose, POC 125 65 - 199 mg/dL [facility] Comment: Supplemental ranges: <140 mg/dL before meals <180 mg/dL all other times of the day Blood specimen (specimen) 05/10/2016 9:53 AM EST 05/10/2016 9:53 AM EST Sonja Perez MD POINT OF CARE TEST O JESSICA Performing Organization Address [facility] Co de Phone Number [facility] [place] [address] * POCT Glucose (05/10/2016 7:39 AM EST) Glucose, POC 160 65 - 199 mg/dL [facility] Comment: Supplemental ranges: <140 mg/dL before meals <180 mg/dL all other times of the day Blood specimen (specimen) 05/10/2016 7:39 AM EST 05/10/2016 7:39 AM EST Sonja Perez MD POINT OF CARE TEST O JESSICA Performing Organization Address [facility] Co de Phone Number [facility] [place] [address] * POCT Glucose (05/10/2016 6:02 AM EST) Glucose, POC 186 65 - 199 mg/dL [facility] Comment: Supplemental ranges: <140 mg/dL before meals <180 mg/dL all other times of the day Blood specimen (specimen) 05/10/2016 6:02 AM EST 05/10/2016 6:02 AM EST Sonja Perez MD POINT OF CARE TEST O JESSICA Performing Organization Address [facility] Co de Phone Number [facility] [place] [address] * POCT Glucose (05/10/2016 4:07 AM EST) Glucose, POC 129 65 - 199 mg/dL [facility] Comment: Supplemental ranges: <140 mg/dL before meals <180 mg/dL all other times of the day Blood specimen (specimen) 05/10/2016 4:07 AM EST 05/10/2016 4:07 AM EST Sonja Perez MD POINT OF CARE TEST O JESSICA Performing Organization Address [facility] Co de Phone Number [facility] [place] [address] * POCT Glucose (05/10/2016 2:13 AM EST) Glucose, POC 78 65 - 199 mg/dL [facility] Comment: Supplemental ranges: <140 mg/dL before meals <180 mg/dL all other times of the day Blood specimen (specimen) 05/10/2016 2:13 AM EST 05/10/2016 2:13 AM EST Sonja Perez MD POINT OF CARE TEST O JESSICA Performing Organization Address [facility] Co de Phone Number [facility] [place] [address] * POCT Glucose (05/10/2016 12:09 AM EST) Glucose, POC 106 65 - 199 mg/dL [facility] Comment: Supplemental ranges: <140 mg/dL before meals <180 mg/dL all other times of the day Blood specimen (specimen) 05/10/2016 12:09 AM EST 05/10/2016 12:09 AM EST Sonja Perez MD POINT OF CARE TEST O JESSICA Performing Organization Address [facility] Co de Phone Number [facility] [place] [address] * POCT Glucose (05/09/2016 10:13 PM EST) Glucose, POC 172 65 - 199 mg/dL [facility] Comment: Supplemental ranges: <140 mg/dL before meals <180 mg/dL all other times of the day Blood specimen (specimen) 05/09/2016 10:13 PM EST 05/09/2016 10:13 PM EST Sonja Perez MD POINT OF CARE TEST Renetta LOPEZ Performing Organization Address [facility] Co de Phone Number [facility] [place] [address] * POCT Glucose (05/09/2016 7:59 PM EST) Glucose, POC 181 65 - 199 mg/dL [facility] Comment: Supplemental ranges: <140 mg/dL before meals <180 mg/dL all other times of the day Blood specimen (specimen) 05/09/2016 7:59 PM EST 05/09/2016 7:59 PM EST Sonja Perez MD POINT OF CARE TEST Renetta LOPEZ Performing Organization Address [facility] Co de Phone Number [facility] [place] [address] * POCT Glucose (05/09/2016 5:10 PM EST) Glucose, POC 114 65 - 199 mg/dL [facility] Comment: Supplemental ranges: <140 mg/dL before meals <180 mg/dL all other times of the day Blood specimen (specimen) 05/09/2016 5:10 PM EST 05/09/2016 5:10 PM EST Sonja Perez MD POINT OF CARE TEST Renetta LOPEZ Performing Organization Address [facility] Co de Phone Number [facility] [place] [address] * POCT Glucose (05/09/2016 4:29 PM EST) Glucose, POC 125 65 - 199 mg/dL [facility] Comment: Supplemental ranges: <140 mg/dL before meals <180 mg/dL all other times of the day Blood specimen (specimen) 05/09/2016 4:29 PM EST 05/09/2016 4:29 PM EST Sonja Perez MD POINT OF CARE TEST O RDKATHY Performing Organization Address [facility] de Phone Number [facility] [place] [address] * POCT Glucose (05/09/2016 2:16 PM EST) Glucose, POC 188 65 - 199 mg/dL [facility] Comment: Supplemental ranges: <140 mg/dL before meals <180 mg/dL all other times of the day Blood specimen (specimen) 05/09/2016 2:16 PM EST 05/09/2016 2:16 PM EST Sonja Perez MD POINT OF CARE TEST O JESSICA Performing Organization Address [facility] Phone Number [facility] [place] [address] * POCT Glucose (05/09/2016 11:20 AM EST) Glucose, POC 176 65 - 199 mg/dL [facility] Comment: Supplemental ranges: <140 mg/dL before meals <180 mg/dL all other times of the day Blood specimen (specimen) 05/09/2016 11:20 AM EST 05/09/2016 11:20 AM EST Sonja Perez MD POINT OF CARE TEST O JESSICA Performing Organization Address [facility] de Phone Number [facility] [place] [address] * POCT Glucose (05/09/2016 8:07 AM EST) Glucose, POC 132 65 - 199 mg/dL [facility] Comment: Supplemental ranges: <140 mg/dL before meals <180 mg/dL all other times of the day Blood specimen (specimen) 05/09/2016 8:07 AM EST 05/09/2016 8:07 AM EST Sonja Perez MD POINT OF CARE TEST O RDERABLES Performing Organization Address [facility] de Phone Number [facility] [place] [address] * POCT Glucose (05/09/2016 6:05 AM EST) Glucose, POC 164 65 - 199 mg/dL [facility] Comment: Supplemental ranges: <140 mg/dL before meals <180 mg/dL all other times of the day Blood specimen (specimen) 05/09/2016 6:05 AM EST 05/09/2016 6:05 AM EST Sonja Perez MD POINT OF CARE TEST O RDERABLES Performing Organization Address [facility] Number [facility] [place] [address] * Scan, Peripheral Blood (05/09/2016 5:34 AM EST) Plat estimate Normal [facility] RBC Morphology Abnormal [facility] Microcyte 1-5 /HPF [facility] Blood specimen (specimen) 05/09/2016 5:34 AM EST 05/09/2016 6:07 AM EST Narrative Resulting Agency Comment Spec In Lab Minerva Plascencia MD HEMATOLOGY ORDERAB LES Performing Organization Address [facility] Phone Number [facility] [place] [address] * Phosphorus (05/09/2016 5:34 AM EST) Phosphorus 3.8 2.5 - 4.5 mg/dL [facility] Blood specimen (specimen) 05/09/2016 5:34 AM EST 05/09/2016 6:07 AM EST Narrative Resulting Agency Comment Spec In Lab Minerva Plascencia MD CHEMISTRY ORDERABL ES Performing Organization Address [facility] Co de Phone Number [facility] [place] [address] * (ABNORMAL) Magnesium (05/09/2016 5:34 AM EST) Pathologist [facility] Magnesium 0.60(L) 0.69 - 1.07 mmol/L [facility] Blood specimen (specimen) 05/09/2016 5:34 AM EST 05/09/2016 6:07 AM EST Narrative Resulting Agency Comment Spec In Lab Minerva Plascencia MD CHEMISTRY ORDERABL ES [facility] [place] [address] * (ABNORMAL) Basic Metabolic Panel (non-fasting) (05/09/2016 5:34 AM EST) Pathologist [facility] Glucose 189 65 - 199 mg/dL [facility] Comment:Diabetes: >=200 mg/d L plus symptoms Blood Urea Nitrogen 15 8 - 18 mg/dL [facility] Creatinine 0.72 0.70 - 1.20 mg/dL [facility] Comment: Please note that the pediatric reference intervals supplied above were not validated at [facility]. Results from pediatric patients should be interpreted in conjunction to the patient's age, height and muscle mass. Sodium 136 135 - 145 mmol/L [facility] Potassium 3.9 3.5 - 5.0 mmol/L [facility] Comment: Please note: ??Patients with WBC >100,000 may have falsely elevated Potassium levels. ??For accurate Potassium quantification in these patients send serum separator tube (gold top) for subsequent determinations. ??Contact the Clinical Chemistry Laboratory if there are any questions. Chloride 98 98 - 107 mmol/L [facility] Carbon Dioxide 26 22 - 31 mmol/L [facility] Anion Gap 12 5 - 15 mmol/L [facility] Calcium 7.9(L) 8.5 - 10.5 mg/dL [facility] Est Glomerular Filtration Rate >60 >=60 [facility] Comment: This estimated GFR (eGFR) value [...] the following links into your internet browser. [email or web address] Blood specimen (specimen) 05/09/2016 5:34 AM EST 05/09/2016 6:07 AM EST Narrative Resulting Agency Comment Spec In Lab Minerva Plascencia MD CHEMISTRY ORDERABL ES [facility] [place] [address] * (ABNORMAL) Hemogram (05/09/2016 5:34 AM EST) White Blood Cell 5.1 4.0 - 9.5 x10(3)/mc L [facility] Red Blood Cell 4.16 4.00 - 5.21 x10(6)/mc L [facility] Hemoglobin 9.5(L) 11.7 - 15.5 gm/dL [facility] Hematocrit 30.6(L) 35.7 - 45.8 % [facility] Mean Cell Volume 73.6(L) 82.6 - 94.4 fL [facility] Mean Cell Hemoglobin 22.8(L) 27.1 - 32.0 pg [facility] Mean Cell Hemoglobin Concentration 31.0(L) 31.7 - 35.0 gm/dL [facility] Platelet 230 145 - 357 x10(3)/mc L [facility] RDW Standard Deviation 46.0 37.0 - 46.0 fL [facility] RDW coefficient of variation 17.4(H) 11.5 - 14.1 % [facility] Mean Platelet Volume 9.8 7.6 - 12.9 fL [facility] NRBC% auto 0.0 % [facility] NRBC Absolute 0.000 0.000 - 0.000 x10(3)/mc L [facility] Blood specimen (specimen) 05/09/2016 5:34 AM EST 05/09/2016 6:07 AM EST Narrative Resulting Agency Comment Spec In Lab Minerva Plascencia MD HEMATOLOGY ORDERAB LES Performing Organization Address City/[facility]/ZIP Co de Phone Number [facility] [place] [address] * POCT Glucose (05/09/2016 4:28 AM EST) Glucose, POC 171 65 - 199 mg/dL [facility] Comment: Supplemental ranges: <140 mg/dL before meals <180 mg/dL all other times of the day Blood specimen (specimen) 05/09/2016 4:28 AM EST 05/09/2016 4:28 AM EST Sonja Perez MD POINT OF CARE TEST O RDERABLES Performing Organization Address [facility]/ZIP Co de Phone Number [facility] [place] [address] * POCT Glucose (05/09/2016 2:09 AM EST) Glucose, POC 95 65 - 199 mg/dL [facility] Comment: Supplemental ranges: <140 mg/dL before meals <180 mg/dL all other times of the day Blood specimen (specimen) 05/09/2016 2:09 AM EST 05/09/2016 2:09 AM EST Sonja Perez MD POINT OF CARE TEST O RDERABLES Performing Organization Address City/[facility]/ZIP Co de Phone Number [facility] [place] [address] * POCT Glucose (05/09/2016 12:12 AM EST) Glucose, POC 127 65 - 199 mg/dL [facility] Comment: Supplemental ranges: <140 mg/dL before meals <180 mg/dL all other times of the day Blood specimen (specimen) 05/09/2016 12:12 AM EST 05/09/2016 12:12 AM EST Sonja Perez MD POINT OF CARE TEST O JESSICA Performing Organization Address City/[facility]/ZIP Co de Phone Number [facility] [place] [address] * POCT Glucose (05/08/2016 10:07 PM EST) Glucose, POC 142 65 - 199 mg/dL [facility] Comment: Supplemental ranges: <140 mg/dL before meals <180 mg/dL all other times of the day Blood specimen (specimen) 05/08/2016 10:07 PM EST 05/08/2016 10:07 PM EST Sonja Perez MD POINT OF CARE TEST O JESSICA Performing Organization Address [facility]/ZIP Co de Phone Number [facility] [place] [address] * POCT Glucose (05/08/2016 8:16 PM EST) Glucose, POC 156 65 - 199 mg/dL [facility] Comment: Supplemental ranges: <140 mg/dL before meals <180 mg/dL all other times of the day Blood specimen (specimen) 05/08/2016 8:16 PM EST 05/08/2016 8:16 PM EST Sonja Perez MD POINT OF CARE TEST O JESSICA Performing Organization Address City/[facility]/ZIP Co de Phone Number [facility] [place] [address] * POCT Glucose (05/08/2016 6:55 PM EST) Glucose, POC 158 65 - 199 mg/dL [facility] Comment: Supplemental ranges: <140 mg/dL before meals <180 mg/dL all other times of the day Blood specimen (specimen) 05/08/2016 6:55 PM EST 05/08/2016 6:55 PM EST Sonja Perez MD POINT OF CARE TEST O JESSICA Performing Organization Address City/[facility] Co de Phone Number [facility] [place] [address] * (ABNORMAL) POCT Glucose (05/08/2016 4:30 PM EST) Glucose, POC 235(H) 65 - 199 mg/dL [facility] Comment: Supplemental ranges: <140 mg/dL before meals <180 mg/dL all other times of the day Blood specimen (specimen) 05/08/2016 4:30 PM EST 05/08/2016 4:30 PM EST Sonja Perez MD POINT OF CARE TEST O JESSICA Performing Organization Address [facility] Co de Phone Number [facility] [place] [address] * (ABNORMAL) POCT Glucose (05/08/2016 1:42 PM EST) Glucose, POC 245(H) 65 - 199 mg/dL [facility] Comment: Supplemental ranges: <140 mg/dL before meals <180 mg/dL all other times of the day Blood specimen (specimen) 05/08/2016 1:42 PM EST 05/08/2016 1:42 PM EST Sonja Perez MD POINT OF CARE TEST O JESSICA Performing Organization Address [facility] Co de Phone Number [facility] [place] [address] * POCT Glucose (05/08/2016 11:46 AM EST) Glucose, POC 143 65 - 199 mg/dL [facility] Comment: Supplemental ranges: <140 mg/dL before meals <180 mg/dL all other times of the day Blood specimen (specimen) 05/08/2016 11:46 AM EST 05/08/2016 11:46 AM EST Sonja Perez MD POINT OF CARE TEST O RDERABLES [facility] [place] [address] documented in this encounter Visit Diagnoses Not on filedocumented in this encounter Admitting Diagnoses Diagnosis Morbid [...] Given 05/14/2016 5:03 PM EST 40 mg BUpivacaine-EPINEPHrine 0.25 %-1:200,000 injection ONCE PRN, Starting on Thu05/08/16 at 1323, Until Thu05/16/16 at 1659, Intra-Operative (Intra-Procedure), Routine Given 05/08/2016 1:23 PM EST 15 mLs 19- Surgical Site celecoxib (CeleBREX) capsule 100 mg 100 mg, [...] Given 05/15/2016 2:52 PM EST 5,000 Units INSULIN PUMP (PATIENT OWN) Subcutaneous, ONCE PRN, Other, No Documentation Needed on JUN. This is Placeholder Medication., Starting on Thu05/14/16 at 1122, 1 dose, Until Thu05/16/16 at 1659, Patient to administer per own pump. Before discontinuing the pump, obtain an order for an administer subcutaneous basal insulin., Medication Name: lispro (Humalog) levothyroxine (SYNTHROID) tablet 175 mcg 175 mcg, Oral, DAILY, First dose on Thu05/09/16 at 0600, Until Discontinued, Routine Given 05/16/2016 5:52 AM EST 175 mcg Given 05/15/2016 6:12 AM EST 175 mcg Given 05/14/2016 6:04 AM EST 175 mcg lisinopril (PRINIVIL;ZESTRIL) tablet 20 mg 20 mg, Oral, DAILY, First dose on Thu05/08/16 at 1800, Until Discontinued, Routine Given 05/16/2016 8:53 AM EST 20 mg Given 05/15/2016 8:20 AM EST 20 mg Given 05/14/2016 10:04 AM EST 20 mg magnesium oxide (MAG-OX) tablet 400 mg 400 mg, Oral, 2 TIMES DAILY, First dose on Thu05/15/16 at 0900, Until Discontinued, Routine Given 05/16/2016 8:53 AM EST 400 mg Given 05/15/2016 9:41 PM EST 400 mg Given 05/15/2016 11:07 AM EST 400 mg melatonin tablet 9 mg 9 mg, [...] Given 05/15/2016 8:20 AM EST 100 mg oxyCODONE (ROXICODONE) 5 mg/5 mL solution 5-10 mg 5-10 mg, Oral, EVERY 4 HOURS PRN, Starting on Cristina 05/08/16 at 1607, Until Thu05/16/16 at 1659, Pain, Routine Given 05/15/2016 9:41 PM EST 5 mg Given 05/13/2016 8:03 PM EST 10 mg Given 05/13/2016 5:11 AM EST 5 mg sodium chloride 0.9 % flush 5 mL [...] Discontinued, Routine 1237 (Given - Provider: Danyelle James RN) erythromycin (EES) 250 mg/6.25 mL oral suspension [...] RN) 0820 (Given - Provider: Delaney Feng RN)1452 (Given - Provider: Delaney Feng, ELSA)2141 (Given - Provider: Gonsalo Yanez, ELSA) 0853 (Given - Provider: Danyelle James, ELSA) heparin (porcine) subcutaneous injection 5,000 Units 5,000 Units, Subcutaneous, EVERY 8 HOURS SCHEDULED, First dose on Thu05/08/16 at 1630, Until Discontinued, Routine 0604 (Given - Provider: Luis Orourke RN)1400 (Given - Provider: Delaney Feng RN - Comment: not reading multiple barcodes.)211 (Given - Provider: Luis Orourke RN) 0613 (Given - Provider: Luis Orourke RN)1452 (Given - Provider: Delaney Feng RN)2141 (Given - Provider: Gonsalo Yanez, ELSA) 0555 (Given - Provider: Gonsalo Yanez, ELSA)1400 (Due) insulin lispro (humaLOG) VIAL injection 1-5 [...] Reason: Patient/family refused)1005 (Given - Provider: Delaney Feng RN - Comment: lower back, upper back, shoulder area improving)1500 (Given - Provider: Delaney Feng RN)2118 (Given - Provider: Luis Orourke RN) 0300 (Not Given - Provider: Luis Orourke RN - Reason: See comment - Comment: pt sleeping)0819 (Given - Provider: Delaney Feng RN)1452 (Given - Provider: Delaney Feng RN)2141 (Given - Provider: Gonsalo Yanez, ELSA) 0300 (Not Given - Provider: Gonsalo Yanez, ELSA - Reason: Patient/family refused)0853 (Given - Provider: [...] 1004 (Given - Provider: Delaney Feng RN) 0820 (Given - Provider: Delaney Feng RN) 0853 (Given - Provider: Danyelle James, ELSA) magnesium oxide (MAG-OX) tablet 400 mg 400 mg, Oral, 2 TIMES DAILY, First dose on Thu05/15/16 at 0900, Until Discontinued, Routine 1107 (Given - Provider: Delaney Feng RN - Comment: med not available)214 (Given - Provider: Gonsalo Yanez RN) 0853 (Given - Provider: Danyelle James RN) melatonin tablet 9 mg 9 mg, Oral, NIGHTLY, First dose on Thu05/08/16 at 2100, Until Discontinued, Routine 2117 (Given - Provider: Luis Orourke RN) 214 [...] Delaney Feng RN)2117 (Given - Provider: Luis Orourke RN) 0819 (Given - Provider: Delaney Feng RN)2099 (Not Given - Provider: Gonsalo Yanez RN - Reason: Contraindicated) pantoprazole (PROTONIX) injection 20 mg (CANCELED) 20 mg, Intravenous, 2 TIMES DAILY, First dose on Thu05/15/16 at 2200, Until Discontinued 2155 (Given - Provider: Gonsalo Yanez, RN) sodium chloride 0.9 % flush 5 mL 5 mL, Intravenous, 2 TIMES DAILY, First dose on Cristina 05/08/16 at 2100, Until Discontinued, Recovery (Recovery-Hospital Unit), Routine 1007 (Given - Provider: Delaney Feng, RN)2123 (Given - Provider: Luis Orourke, RN) 0900 (Given - Provider: Delaney Feng, RN)215 (Given - Provider: Gonsalo Yanez, RN) 0857 (Given - Provider: Danyelle James, ELSA) [...] Subcutaneous, ONCE PRN, 1 dose, Starting on Thu05/08/16 at 1607, Until Thu05/16/16 at 1659, for [...] (Recovery-Hospital Unit) 1340 (Given - Provider: Delaney Feng RN) ondansetron (ZOFRAN-ODT) oral disintegrating tablet 8 mg 8 mg, Oral, EVERY 8 HOURS PRN, Starting on Thu05/16/16 at 0849, Until Thu05/16/16 at 1659, Nausea, Routine oxyCODONE (ROXICODONE) 5 mg/5 mL solution 5-10 mg 5-10 mg, Oral, EVERY 4 HOURS PRN, Starting on Thu05/08/16 at 1607, Until Thu05/16/16 at 1659, Pain, Routine 2141 (Given - Provider: Gonsalo Yanez, ELSA) prochlorperazine (COMPAZINE) injection 10 mg (CANCELED) 10 [...] HOUR PRN, Low blood sugar, Starting on 05/14/16 at 1122, Until Thu05/16/16 at 1659, For [...] Unit) documented in this encounter Care Teams Restaurant District Manager Relationship Specialty Start Date End Date Nayla Miramontes MD [facility] ANABELLA [address]AR[address] [place] [address] PCP - General 05/21/11 05/10/21 documented as of this encounter
--- OUTSIDE RECORDS SUMMARY | 2024-03-07 18:59 | XMS_ITS | Encounter Summary ---
Author Organization [facility] [place] [address] Care Team Providers Care Business Process Analyst Name Role Phone Nayla Miramontes MD Primary Care Provider [phone] Reason for Visit * Reason Comments Depression * Auth/Cert Specialty Diagnoses / Procedures Referred By Contac t Referred To Contact Diagnoses MDD (major depressive disorder), recurrent episode, moderate MDD Referral ID Status Reason Start Date Expiration Date Visits Re quested Visits Authorized [id number] 1 1 Encounter Details Date Type Department Care Team (Late st Contact Info) Description 02/11/2016 4:45 PM EST - 02/11/2016 8:22 PM [facility] Emergency [place] [address] Fer Sparrow MD [facility] [address] [place] [address] Other depression; Depression with suicidal ideation Discharge Disposition: Psych Hospital/Distinct Part of Hospital Social History Tobacco Use Types Packs/Day Years [...] Sign Reading Time Taken Comments Blood Pressure 134/61 02/11/2016 3:57 PM EST Pulse 84 02/11/2016 3:57 PM EST Temperature 37.1 ??C (98.8 ??F) 02/11/2016 3:57 PM ES T Respiratory Rate 16 02/11/2016 3:57 PM EST Oxygen Saturation 100% 02/11/2016 3:57 PM EST Inhaled Oxygen Concentration - - Weight - - Height - - Body Mass Index - - documented in this encounter Medications at Time of Discharge Medication Sig Dispensed Refills Start Date End Date trimethobenzamide (TIGAN) 300 mg Capsule Take by mouth 4 times daily as needed. 08/08/2015 Diabetic Supplies, [facility]. [facility] Inject 1 each subcutaneously 4 times daily. Faxed pump and supply order to [employer] at [phone]. Dx Code: 250.01 100 each 12 12/21/2015 Diabetic Supplies, [facility]. [facility] MNF faxed to [facility] 100 each 12 10/30/2015 bisacodyl (DULCOLAX) 10 [...] Take by mouth. 05/14/2016 Diabetic Supplies, [facility]. [facility] CGM faxed to [employer]. 600 each 3 12/21/2015 01/27/2017 levothyroxine (SYNTHROID) [...] nightly. 03/06/2017 documented as of this encounter ED Notes * Rosa Elena Thompson RN - 02/11/2016 6:54 PM EST Patient is sitting with at bedside. Denies any current needs. Pending plan to see Psych forfurther evaluation. * Fer Sparrow MD - 02/11/2016 5:58 PM EST Chief Complaint Patient presents with ??? Depression HPI : Presents to the emergency department because of worsening depression. He has been worsening over the past month. His a long history of depression and had been on Lexapro. She stopped this approximately a month ago. The patient's usual psychiatrist has left her area and she currently has no psychiatric follow-up. The patient has been having increasing difficulties with her granddaughter who s he is raised as her daughter. She has a 7-month-old great-granddaughter. The patient has been having increasing suicidal thoughts although she has no specific plan. She states that if she had access to a gun she would probably use it. She has significant medical problems including diabetes, severe Giron's esophagus, hypertension and asthma. She had a severe bronchitis last month but that appears to have resolved. She has no recent fever, chills, vomiting, urinary symptoms or abdominal pain. Allergies Allergen Reactions ??? Codeine Phosphate Nausea Only ??? Propoxyphene N-Acetaminophen Nausea Only Review of Systems Constitutional: Positive for activity change and fatigue. Negative for appetite change, chills, diaphoresis, fever and unexpected weight change. HENT: Negative for congestion and rhinorrhea. Eyes: Negative. Respiratory: Negative for cough and shortness of breath. Cardiovascular: Positive for leg swelling. Negative for chest pain. Gastrointestinal: Negative for abdominal pain, diarrhea, nausea and vomiting. Genitourinary: Negative. Musculoskeletal: Positive for arthralgias. Skin: Negative. Neurological: Negative for headaches. Hematological: Does not bruise/bleed easily. Psychiatric/Behavioral: Positive for decreased concentration, dysphoric mood, sleep disturbance andsuicidal ideas. Negative for agitation, behavioral problems, confusion, hallucinations and self-injury. The patient is nervous/anxious. The patient is not hyperactive. Physical Exam Constitutional: She is oriented to person, place, and time. She appears well- developed and well-nourished. No distress. HENT: Head: Normocephalic. Mouth/Throat: No oropharyngeal exudate. Eyes: Conjunctivae and EOM are normal. Pupils are equal, round, and reactive to light. Neck: Normal range of motion. Neck supple. No thyromegaly present. Cardiovascular: Normal rate, regular rhythm and normal heart sounds. Exam reveals no gallop and no friction rub. No murmur heard. Pulmonary/Chest: Effort normal and breath sounds normal. Abdominal: Soft. She exhibits no distension. There is no tenderness. Musculoskeletal: She exhibits no edema or tenderness. Lymphadenopathy: She has no cervical adenopathy. Neurological: She is alert and oriented to person, place, and time. Skin: Skin is warm and dry. No rash noted. She is not diaphoretic. Psychiatric: Her speech is normal and behavior is normal. Her mood appears anxious. Thought contentis not paranoid and not delusional. She exhibits a depressed mood. She expresses suicidal ideation.She expresses no homicidal ideation. She expresses no suicidal plans and no homicidal plans. Nursing note and vitals reviewed. Procedures MDM ED Course: The patient presents to the emergency department because of worsening depression. We have asked the psychiatry service to evaluate the patient. They felt the patient warranted admission totir service. The patient has no acute medical issues. ED Course Fer Sparrow MD 02/11/162055 * Mara Lea RN - 02/11/2016 5:14 PM EST MD at bedside evaluating patient currently. Pt offered food and water. Blankets also offered for optimum comfort documented in this encounter Miscellaneous Notes * ED Triage - Gale Jorge RN - 02/11/2016 3:58 PM EST Depression, gradual onset over the past couple of weeks Denies any precipitating event Lexapro was stopped about a month ago because it wasn't working and patient has not taken any otherantidepressant Feeling suicidal in the past week and worse over the weekend Does not have a specific plan, but has thoughts of overdosing and shooting herself if she could afford to buy a gun Minimal eye contact documented in this encounter Plan of Treatment Upcoming Encounters Date Type Department Care Team (Late st Contact Info) Description 05/17/2024 2:30 PM EST Office [place] [address] Alcides Bonilla MD [facility] [place] [address] 04/06/2049 9:00 AM EST Hospital [place] [address] Harry Guerrero MD [facility] DR GASTROENTER[place] [address] documented as of this encounter Visit Diagnoses Diagnosis Other depression Depression with suicidal ideation documented in this encounter Care Teams Business Process Analyst Relationship Specialty Start Date End Date Nayla Miramontes MD [facility] ANABELLA LÓPEZ [facility] [address] [place] [address] PCP - General 05/21/11 05/10/21 documented as of this encounter
--- OUTSIDE RECORDS SUMMARY | 2024-03-07 19:00 | XMS_ITS | Encounter Summary ---
Author Organization [facility] [place] [address] Care Team Providers Care Shingle Cutter Name Role Phone Nayla Miramontes MD Primary Care Provider [phone] Reason for Visit * Reason Onset Date Comments Medication Refill 05/22/2015 Encounter Details Date Type Department Care Team (Late st Contact Info) Description 05/22/2015 Ref[place] [address] Gloria Pimentel MD [facility] [place] [address] Social History Tobacco Use Types Packs/Day Years [...] 2:30 PM EST Office [place] [phone] Alcides Bonilla MD [facility] [place] [address] 04/06/2049 9:00 AM EST Hospital Encounter [place] [address] Harry Guerrero MD [facility] DR [place] [address] documented as of this encounter Visit Diagnoses Not on filedocumented in this encounter Care Teams Shingle Cutter Relationship Specialty Start Date End Date Nayla Miramontes MD [facility] [address] [facility] [address] [place] [address] PCP - General 05/21/11 05/10/21 documented as of this encounter
--- OUTSIDE RECORDS SUMMARY | 2024-03-07 19:00 | XMS_ITS | Encounter Summary ---
Author Organization [facility] [place] [address] Care Team Providers Care Beer Runner Name Role Phone Nayla Miramontes MD Primary Care Provider [phone] Encounter Details Date Type Department Care Team (Late st Contact Info) Description 10/30/2015 Orders [place] [phone] Roseanne Kay APRN [facility] [place] [address] Diabetes mellitus with background retinopathy Social History [...] 2:30 PM EST Office [place] [phone] Alcides Bonilla MD [facility] [place] [address] 04/06/2049 9:00 AM EST Hospital Encounter [place] [address] Harry Guerrero MD [facility] DR [place] [address] documented as of this encounter Results * (ABNORMAL) Glucose, fasting (11/08/2015 7:52 AM EDT) [facility] Glucose Fasting 153(H) 65 - 99 mg/dL [facility] Comment: ?Fasting* Glucose Interpretive Criteria [...] of Diabetes Mellitus, Position Statement from the [place] [employer]. ??Diabetes Care, Volume 33, Supplement 1, Apr 2009 Blood specimen (specimen) 11/08/2015 7:52 AM EDT 11/08/2015 7:55 AM EDT Narrative Resulting Agency Comment Spec In Lab Darryl Barrera MD CHEMISTRY ORDERABLES [facility] [place] [address] * (ABNORMAL) C-peptide (11/08/2015 7:52 AM EDT) [facility] C-Peptide <0.1(L) 1.1 - 4.4 ng/mL [facility] Comment: Test Performed by: [address] [address] Newsperson: Sean Jiménez II, M.D., Ph.D. Blood specimen (specimen) 11/08/2015 7:52 AM EDT 11/08/2015 9:18 AM EDT Narrative Resulting Agency Comment Spec In Lab Darryl Barrera MD CHEMISTRY ORDERABLES [facility] [place] [address] documented in this encounter Visit Diagnoses Diagnosis Diabetes mellitus with background retinopathy documented in this encounter Care Teams Beer Runner Relationship Specialty Start Date End Date Nayla Miramontes MD [facility] [address] [place] [address] PCP - General 05/21/11 05/10/21 documented as of this encounter
--- OUTSIDE RECORDS SUMMARY | 2024-03-07 19:00 | XMS_ITS | Encounter Summary ---
Author Organization [facility] [place] [address] Care Team Providers Care Founder & Ceo Name Role Phone Nayla Miramontes MD Primary Care Provider [phone] Reason for Visit * Reason Comments Hiatal Hernia Encounter Details Date Type Department Care Team (Latest Contact Info) Description 12/05/2014 11:00 AM EDT Follow-[place] [address] Sonja Chavez MD [facility] [place] [address] Gastroesophageal reflux disease with esophagitis Discharge Disposition: Home Social History Tobacco Use [...] Sign Reading Time Taken Comments Blood Pressure 128/64 12/05/2014 11:09 AM EDT Pulse 83 12/05/2014 11:09 AM EDT Temperature 36.7 ??C (98.1 ??F) 12/05/2014 11:09 AM E DT Respiratory Rate 20 12/05/2014 11:09 AM EDT Oxygen Saturation 100% 12/05/2014 11:09 AM EDT Inhaled Oxygen Concentration - - Weight 93 kg (205 lb) 12/05/2014 11:09 AM EDT Height 162.6 cm (5' 4) 12/05/2014 11:09 AM EDT Body Mass Index 35.19 12/05/2014 11:09 AM EDT documented in this encounter Progress Notes * Sonja Chavez MD - 12/05/2014 6:25 PM EDT Seen in follow up after her repeat manometry which is more suggestive of reflux with esophageal motor failure. Her LES is hypotensive with relaxation. She continues to have both heartburn as well as dysphagia. I am a bit reluctant to give her a fundoplication with so much dysphagia. I think this is best treated by gastric bypass for the following reasons: 1. It will give her very good reflux control without significantly affecting her ability to swallow. 2. It will result in some weight loss which will likely benefit her diabetes to some extent but also improve her hypertension, hyperlipidemia and GERD. 3. She sounds by history like she may have sleep apnea which if shown to be true on further testingshould also improve. 4. Her current BMI is almost 36, given these co-morbidities, she qualifies for this procedure basedon NIH criteria even though the main indication is to treat her GERD I have asked her to attend an educational seminar this week to get her started towards this surgerybetter informed. documented in this encounter Plan of Treatment Upcoming Encounters Date Type Department Care Team (Late st Contact Info) Description 05/17/2024 2:30 PM EST Office [place] [address] Alcides Bonilla MD [facility] [place] [address] 04/06/2049 9:00 AM EST Hospital Encounter [place] [phone] Harry Guerrero MD [facility] [place] [address] documented as of this encounter Visit Diagnoses Diagnosis Gastroesophageal reflux disease with esophagitis documented in this encounter Care Teams Founder & Ceo Relationship Specialty Start Date End Date Nayla Miramontes MD [address] [facility] [address] [place] [address] PCP - General 05/21/11 05/10/21 documented as of this encounter
--- OUTSIDE RECORDS SUMMARY | 2024-03-07 19:00 | XMS_ITS | Encounter Summary ---
Author Organization [facility] [place] [address] Care Team Providers Care Pulper Operator Name Role Phone Nayla Mriamontes MD Primary Care Provider Encounter Details Date Type Department Care Team (Late st Contact Info) Description 06/06/2015 Refill Gastroenterology at [facility] [place] [phone] Qi Britton RN Social History Tobacco Use Types Packs/Day [...] encounter Miscellaneous Notes * Telephone Encounter - Qi Britton RN - 06/06/2015 4:29 PM EST Patient called to report that she has been constipated for 5 days. Has not had a bowel movement for4 days. Taking Miralax BID, Amitiza 24 BID. Only using MOM prn, and did not get her domperidone filled yet as prescribed. Instructed her to take the MOM as advised by Tamanna Nguyen 30-60cc per day. She will start that today and look into getting her Domperidone. Will call next week with an update. documented in this encounter Plan of Treatment Upcoming Encounters Date Type Department Care Team (Late st Contact Info) Description 05/17/2024 2:30 PM EST Office Visit Gastroenterology at [place] [phone] Alcides Bonilla MD [facility] [place] [address] 04/06/2049 9:00 AM EST Hospital Encounter [place] [phone] Harry Guerrero MD [facility] [place] [address] documented as of this encounter Visit Diagnoses Not on filedocumented in this encounter Care Teams Pulper Operator Relationship Specialty Start Date End Date Nayla Miramontes MD [facility] [address] [facility] [address] [place] [address] PCP - General 05/21/11 05/10/21 documented as of this encounter
--- OUTSIDE RECORDS SUMMARY | 2024-03-07 19:00 | XMS_ITS | Encounter Summary ---
Author Organization [facility] [place] [address] Care Team Providers Care Community Health Program Coordinator Name Role Phone Nayla Miramontes MD Primary Care Provider [phone] Encounter Details Date Type Department Care Team (Late st Contact Info) Description 08/20/2015 Telephone [place] [phone] Jaye Sanchez Social History Tobacco Use Types Packs/Day Years [...] encounter Miscellaneous Notes * Telephone Encounter - Jaye Sanchez - 08/20/2015 1:14 PM EDT PA for celecoxib approved from 08/20/2015 to 11/20/2015. PA #[id number] Continued approvals are contingent upon a positive response. Include office notes re: positive response with next PA. * Telephone Encounter - Jaye Sanchez - 08/20/2015 11:32 AM EDT PA for Celbrex sent via [facility] to [place] [employer]. documented in this encounter Plan of Treatment Upcoming Encounters Date Type Department Care Team (Late st Contact Info) Description 05/17/2024 2:30 PM EST Office [place] [address] Alcides Bonilla MD [facility] [place] [address] 04/06/2049 9:00 AM EST Hospital Encounter [place] [phone] Harry Guerrero MD [facility] [place] [address] documented as of this encounter Visit Diagnoses Not on filedocumented in this encounter Care Teams Community Health Program Coordinator Relationship Specialty Start Date End Date Nayla Miramontes MD [facility] [address] [place] [address] PCP - General 05/21/11 05/10/21 documented as of this encounter
--- OUTSIDE RECORDS SUMMARY | 2024-03-07 19:00 | XMS_ITS | Encounter Summary ---
Author Organization [facility] [place] [address] Care Team Providers Care Business Development Consultant Name Role Phone Nayla Miramontes MD Primary Care Provider [phone] Reason for Visit * Reason Comments Follow-up Encounter Details Date Type Department Care Team ([facility] st Contact Info) Description 11/15/2014 9:00 AM EDT Follow-Up Gastroenterology at [facility] [place] [address] Tamanna Nguyen, RONNIE [facility] [address] Gastroparesis; N&V (nausea and vomiting) Discharge Disposition: Home Social History Tobacco Use [...] Sign Reading Time Taken Comments Blood Pressure 133/61 11/15/2014 9:13 AM EDT Pulse 82 11/15/2014 9:13 AM EDT Temperature - - Respiratory Rate - - Oxygen Saturation - - Inhaled Oxygen Concentration - - Weight 93 kg (205 lb) 11/15/2014 9:13 AM EDT Height 165.1 cm (5' 5) 11/15/2014 9:13 AM EDT Body Mass Index 34.11 11/15/2014 9:13 AM EDT documented in this encounter Patient Instructions * Patient Instructions* Tamanna Nguyen APRN - 11/15/2014 9:25 AM EDT 1. Gastroparesis: Domperidone 10 mg every 8 hour before meals. Refer to Domperidone instruction sheet to order the medication 2. Zofran ODT 8 mg every 8 hours as needed 3. Tigan 300 mg every 8 hours as needed 4. Nexium 40 mg twice a day 5. Difficulty swallowing~ineffective esophageal motility: Bethanechol 10 mg every 8 hours before meals 6. Constipation: Amitiza 24 mcg twice a day 7. Constipation: MiraLax 17 grams twice a day 8. Constipation: Milk of magnesia 30-60 ml daily as needed 9. Call or email with an update in 2-3 weeks 10. Schedule a follow up appointment with Dr Chavez 11. Follow up 4-6 months Tamanna Nguyen APRN [phone] documented in this encounter Progress Notes * Tamanna Nguyen APRN - 11/15/2014 9:02 AM EDT Subjective: Patient ID: Roxann Baxter is a 59 y.o. woman who presents for follow up of her gastrointestinal symptoms. Of note, patient was 10 minutes for 30 minute follow up appointment and did my best within the remaining time frame. GI Problem List: 1. GERD/Giron's esophagus: --EGD 04/27/2012:The Z-line was variable and was found 33 cm from the incisors; a 5 cm hiatus herniawas present; multiple pedunculated and sessile polyps with no stigmata of recent bleeding were found in the gastric body; duodenum was normal; food (residue) was found in the gastric body. Bx: gastric fundic gland polyp. Esophagus: Giron's esophagus but no dysplasia. 2. Gastroparesis: --GES 09/01/2013: two hours: 58% remains in the stomach (normal <60%); four hours: 17% remains inthe stomach (normal <10%) --SBFT 08/03/2013: Severe esophageal dilatation with non emptying of the esophagus, esophageal dysmotility with large hiatal hernia. 3. Dysphagia: --HROEM 09/05/14: 1. Hypotensive LES. 2. Normal LES relaxation. 3. Normal UES resting pressure. 4. Normal UES relaxation. 5. Severe, ineffective esophageal motility using both standard classification and [place] v3.0 classification. --HROEM 02/01/2014: 1. Normal LES resting pressure. 2. Incomplete LES relaxation. 3. Normal UES resting pressure. 4. Normal UES relaxation. 5. Severe, ineffective esophageal motility bordering on motor failure given that only 2 of 11 swallows were partially peristaltic. --Barium swallow 01/17/14: 1. Incomplete emptying of the esophagus at 1,2,5 mins, persistent air-fluid level within the esophagus in the upright position and tapered narrowing of the GE junction; these findings are consistent with achalasia. 2. Unwitnessed, but probable gastroesophageal reflux, given the increasing amounts of barium within the esophagus on the 1, 2, 5 minute films. --OEM 08/02/2013: 1. Unable to accurately identify LES resting pressure and relaxation; normal UES resting pressure and motor failure in the body of the esophagus. 4. Constipation: --Colonoscopy 01/10/14: Perianal examination was normal.Multiple small and large- mouthed diverticulawere found in the recto-sigmoid colon, in the sigmoid colon and in the descending colon. The mucosa vascular pattern in the entire colon was decreased throughout the colon. There was also lack of colonic folds seen. The terminal ileum appeared normal. No additional abnormalities were found on retroflexion. Bx: Colonic mucosa with melanosis coli. --Colonoscopy 09/13/2013: preparation of the colon was inadequate. The rectum, sigmoid colon, descending colon, transverse colon, ascending colon and cecum are normal. HPI Comments: Her HROEM showed1. Hypotensive LES; 2. Normal LES relaxation; 3. Normal UES resting pressure; 4. Normal UES relaxation; 5. Severe, ineffective esophageal motility using both standard classification and [place] v3.0 classification. She was started on Bethanechol 5 mg TID but has noted no benefit. She reports that the dysphagia remains unchanged. It occurs with both solids or liquids. She is tolerating solid foods but will drinkGlucerna shake x 1 per day. She tries to not eat too late since it exacerbates her reflux symptoms and will wake up at night secondary to regurgitation. Intermittent cough when she lays down. No sore throat or hoarseness. She reports that GERD symptoms are predominantly controlled on Nexium 40 mg BID. Admits to periodicbreakthrough symptoms, which tends to be worse at night. Intermittent nausea and vomiting. States that symptoms are worse when in the car. Will use Zofran or Tigan prn. She reports that gastroparesis remains unchanged despite dietary modifications. She continues to experience early satiety and postprandial fullness. She did not order Domperidone. She reports having a bowel movement every day but stools are small pellet like. States that bowel habits are more regular when she uses Amitiza 24 mcg BID and MiraLax 17 grams qhs. She would like to schedule a f/u appt with Dr Chavez to discuss gastric bypass. Weight gain of 5 lbs. Remainder of ROS unremarkable. Review of Systems Respiratory: Negative. Cardiovascular: Negative. Gastrointestinal: Positive for nausea, vomiting and constipation. Negative for abdominal pain, diarrhea, blood in stool, abdominal distention, anal bleeding and rectal pain. See HPI Endocrine: Negative. H/o DM I and hypothyroidism. Allergic/Immunologic: Negative. Neurological: Negative. Hematological: Negative. Psychiatric/Behavioral: Negative. Allergies Allergen Reactions ??? Codeine Phosphate Nausea Only ??? Propoxyphene N-Acetaminophen Nausea Only Current Outpatient Prescriptions on File Prior to Visit Medication Sig Dispense Refill ??? esomeprazole (NEXIUM) 40 mg Capsule, Delayed Release(E.C.) Take 40 mg by mouth 2 times daily (before meals). ??? lubiprostone (AMITIZA) 24 mcg Capsule Take 1 capsule by mouth 2 times daily (with meals). 60 capsule 6 ??? imipramine (TOFRANIL) 10 mg Tablet Take 1 tablet by mouth nightly. After one week, take one tablet twice per day and increase to three times per day if not too tiring. 90 tablet 1 ??? Domperidone, Bulk, Powder 10 mg by [facility].(Non-Drug; Combo Route) route 3 times daily (before meals). 500 g 11 ??? prazosin (MINIPRESS) 1 mg Capsule Take 1 capsule nightly. While nightmares persist and you do NOT have symptoms of low blood pressure, increase dose by 1 capsule every 1-2 nights, up to a maximumof 8 capsules nightly. 60 capsule 0 ??? Diabetic Supplies, Miscellan. Misc Form faxed to [employer] for pump/diabetic supplies. 600 each3 ??? levothyroxine (SYNTHROID) 175 mcg Tablet Take 175 mcg by mouth daily. Takes 1 tablet 2 days/week ??? busPIRone (BUSPAR) 5 mg Tablet Take 5 mg by mouth 2 times daily. ??? Adalimumab (HUMIRA PEN) 40 mg/0.8 mL Pen Injector Kit Inject 0.8 mLs subcutaneously every 14 days. 3 kit 3 ??? diphenhydrAMINE/aluminum-magnesium hydroxide/lidocaine (BMX) 1:1:1 Oral Suspension Take 5-10 mLs by mouth 3 times daily as needed. 250 mL 2 ??? escitalopram oxalate (LEXAPRO) 20 mg Tablet Take 60 mg by mouth daily. ??? lisinopril (PRINIVIL;ZESTRIL) 20 mg Tablet Take 1 tablet by mouth daily. 30 tablet ??? insulin lispro (HUMALOG) injection Inject 65 Units subcutaneously continuous. Via insulin pump ??? gabapentin (NEURONTIN) 300 mg capsule Take 3 capsules by mouth nightly. Take 300 mg every morning and 600 mg at bedtime 180 capsule 3 ??? bisacodyl (DULCOLAX) [address] 1 suppository rectally daily. 60 suppository 3 ??? Diabetic Supplies, Miscellan. Misc Inject 1 each subcutaneously 4 times daily. Faxed pump and supply order to [employer] at [phone]. Dx Code: 250.01 100 each 12 ??? cyclobenzaprine (FLEXERIL) 5 mg tablet Take 5 mg in the morning and 10 mg at bedtime. 270 tablet 4 ??? celecoxib (CELEBREX) 100 mg capsule Take 1 capsule by mouth 2 times daily. 120 capsule 3 ??? levothyroxine (SYNTHROID) 150 mcg tablet Take 150 mcg by mouth. 5 times a week. ??? tolterodine (DETROL) 2 mg tablet Take 2 mg by mouth 2 times daily. ??? insulin glargine (LANTUS) 100 unit/mL vial injection Inject 18 Units subcutaneously daily. 1 vial = 10ml = 1,000 units Indications: Type 1 Diabetes Mellitus 10 mL 5 ??? melatonin 3 mg Tab Take 3 mg by mouth nightly. ??? MULTI-VITAMIN ORAL Take 1 tablet by mouth daily. No current facility-administered medications on file prior to visit. Past Medical History Diagnosis Date ??? Diabetes mellitus ??? Thyroid disease ??? Skin disease ??? GERD (gastroesophageal reflux disease) ??? Hyperlipidemia ??? Hypertension ??? Anxiety ??? Asthma ??? Cortical cataract 05/05/2011 ??? PDR (proliferative diabetic retinopathy) 05/25/2011 Past Surgical History Procedure Laterality Date ??? Upper gi endoscopy, exam 04/25/2011 UPPER GI ENDOSCOPY performed by MARIA DEL CARMEN BOB at [facility] ENDOSCOPY ??? Pro upper gi endoscopy, biopsy 04/27/2012 UPPER GASTROINTESTINAL ENDOSCOPY,WITH BIOPSY SINGLE OR MULTIPLE performed by Luis Bucio MD [facility] ENDOSCOPY ??? Retinal laser surgery ??? Vitrectomy,focal laser rx retina 05/16/2013 OS VITRECTOMY, PARS PLANA, LASER performed by Dany Young MD at [facility] MAIN OR ??? Finger surgery ??? Pro colonoscopy, diagnostic 09/13/2013 COLONOSCOPY, DIAGNOSTIC performed by Marie Zamora MD at [facility] ENDOSCOPY ??? Pro colonoscopy, diagnostic 01/10/2014 COLONOSCOPY, DIAGNOSTIC performed by Marie Zamora MD at [facility] ENDOSCOPY ??? Pro upper gi endoscopy, diagnostic N/A 04/24/2014 EGD, UPPER GI ENDOSCOPY performed by Harry Guerrero MD at [facility] ENDOSCOPY ??? Remv cataract extracap,insert lens Left 09/26/2014 CATARACT EXTRACTION, EXTRACAPSULAR, W/ LENS INSERTION performed by Alexis Villalba MD at [facility] OSC ??? Cataract removal Left 09/26/2014 Dr Villalba Vital Signs: BP 133/61; P 82; Wt 205 lbs; Ht 5'6; BMI: 34.2 Objective: Physical Exam Constitutional: She is oriented to person, place, and time. She appears well- developed and well-nourished. No distress. Eyes: Pupils are equal, round, and reactive to light. Neurological: She is alert and oriented to person, place, and time. Skin: Skin is warm and dry. No rash noted. She is not diaphoretic. No erythema. No pallor. Psychiatric: She has a normal mood and affect. Her behavior is normal. Judgment and thought contentnormal. Vitals reviewed. Assessment and Plan: 1. Dysphagia: increase Bethanechol to 10 mg TID before meals. Instructed patient to call or email with an update in 2-3 weeks. 2. Gastroparesis: re-discussed starting Domperidone 10 mg TID before meals and instruction sheet provided to patient with numbers to order the medication. She can use Zofran ODT and/or Tigan 300 mg QID prn. Continue with gastroparesis diet and eating smaller more frequent 5-6 low fat meals per day. 3. Giron's esophagus/GERD: continue Nexium 40 mg BID. GERD diet and lifestyle modifications. Consider Briones ph study. 4. Constipation: Amitiza 24 mcg BID and MiraLax 17 grams BID. She can use MOM 30-60 ml qd prn. Consider anal manometry. Consider PT referral pending oam results. Consider Linaclotide 145-290 mcg qam. I did my best to answer all of her questions. The following plan was formulated. Plan: 1. Domperidone 10 mg TID before meals 2. Zofran ODT 8 mg TID prn 3. Tigan 300 mg TID prn; consider Marinol 2.5-5 mg BID-TID 4. Nexium 40 mg BID 5. Bethanechol 10 mg TID before meals 6. Amitiza 24 mcg BID; consider Linaclotide 145-290 mcg qam 7. MiraLax 17 grams BID 8. MOM 30-60 ml qd prn 9. Call or email with an update in 2-3 weeks 10. Schedule a follow up appointment with Dr Chavez 11. Follow up 4-6 months Patient understands and is agreeable to the above plan. Written instructions provided. Tamanna Nguyen APRN Section of Gastroenterology [place] [address] documented in this encounter Plan of Treatment Upcoming Encounters Date Type Department Care Team (Late st Contact Info) Description 05/17/2024 2:30 PM EST Office Visit [place] [address] Alcides Bonilla MD [facility] [place] [place] [address] 04/06/2049 9:00 AM [facility] Hospital Encounter [place] [phone] Harry Guerrero MD [facility] [place] [address] documented as of this encounter Visit Diagnoses Diagnosis Gastroparesis N&V (nausea and vomiting) Nausea with vomiting documented in this encounter Care Teams Business Development Consultant Relationship Specialty Start Date End Date Nayla Miramontes MD [address] [place] [address] PCP - General 05/21/11 05/10/21 documented as of this encounter
--- OUTSIDE RECORDS SUMMARY | 2024-03-07 19:00 | XMS_ITS | Encounter Summary ---
Author Organization [facility] [place] [address] Care Team Providers Care Satellite Tv Technician Name Role Phone Nayla Miramontes MD Primary Care Provider [phone] Reason for Visit * Reason Onset Date Comments Medication Refill 07/26/2015 Encounter Details Date Type Department Care Team (Late st Contact Info) Description 07/26/2015 Refill [place] [phone] Darryl Burgos MD [facility] [place] [address] Social History Tobacco Use Types Packs/Day Years [...] 2:30 PM EST Office Visit [place] [phone] Alcides Bonilla MD [facility] [place] [address] 04/06/2049 9:00 AM EST Hospital Encounter [place] [address] Harry Guerrero MD [facility] [place] [address] documented as of this encounter Visit Diagnoses Not on filedocumented in this encounter Care Teams Satellite Tv Technician Relationship Specialty Start Date End Date Nayla Miramontes MD [facility] [address] [facility] [address] [place] [address] PCP - General 05/21/11 05/10/21 documented as of this encounter
--- OUTSIDE RECORDS SUMMARY | 2024-03-07 19:00 | XMS_ITS | Encounter Summary ---
Author Organization [facility] Address [facility] [place] [address] Care Team Providers Care Digital Camera Technician Name Role Phone Nayla Miramontes MD Primary Care Provider [phone] Reason for Visit * Reason Comments Diabetes Encounter Details Date Type Department Care Team ([facility] st Contact Info) Description 01/04/2015 1:00 PM EDT Office [place] [address] Radha Booker MD [facility] [place] [address] Diabetes mellitus type 1, uncontrolled Social History [...] Sign Reading Time Taken Comments Blood Pressure 126/59 01/04/2015 1:54 PM EDT Pulse 84 01/04/2015 1:54 PM EDT Temperature - - Respiratory Rate - - Oxygen Saturation - - Inhaled Oxygen Concentration - - Weight 93.9 kg (207 lb) 01/04/2015 1:54 PM EDT Height 162.6 cm (5' 4) 01/04/2015 1:54 PM EDT Body Mass Index 35.53 01/04/2015 1:54 PM EDT documented in this encounter Progress Notes * Radha Booker MD - 01/02/2015 3:35 PM EDT PRIMARY CARE PROVIDER: Nayla Miramontes MD CC: Here for type 1 DM Date of Dx: 1970 Dx Code: 250.03 Regimen ____ oral agents only ____ basal insulin _x___ insulin/pump Diagnosis codes 250.03 _x__ Type 1 250.02 ____Type 2 Glucose test strip brand: bayer contour Number of Tests prescribed per day ___ 2 ___ 3 ___ 4 _x__ 5-8 ___>8 Prescriber: _ MD vladislav Dove_BARBARA Tenorio _ Jamey Quinonez MD _ Corinne Pollack MD _ Aric Booker MD Justification for more than 3 tests a day ____ prevent severe hypoglycemia ____ prevent severe hyperglycemia ____ widely fluctuating blood sugars ____ overnight hypoglycemia Duration of need ___ lifetime until ___/___/___ Last Hga1c 10, 01/18; 9.5, 06/18; 9.3, 11/17 Regimen: MiniMed pump basal rates 12 a.m., 0.725; 4 a.m., 0.775; 9:30 0.725; 3:30 0.75; 7 p.m., 0.75; total basal 17.9, total daily doses range from 39 to 55 units. Bolus: 1:12 insulin to carb ratio for breakfast, lunch and dinner. Insulin sensitivity 30. BG target 100-130. Insulin action 4hrs. Complications: dentist-yrs; eyes-PDR, s/p PDR- last visit spring 2014, cataract left 09/18; Cr-0.94,06/18; ma- 15, 06/18; neuropathy-gastroparesis- Plastic And Reconstructive Surgeon considering gastric bypass, no peripheral neuropathy ; CAD- no; lipids- TChol- 163 , HDL- 67, LDL-88, 06/18 DM health maintenance: beta ron- no; ASA- no ; RYAN/ARB-lisinopril 10 ; statin-no ; flu shot-2014; pneomovax- ; smoking-no ; TSH-2.72, 11/17 on levothyroxine 150 x 5 days, 75 x 2 days It has been about a year since her last visit. Ms. Baxter has continued to have problems with her gastroparesis and is in the midst of GI evaluation and they are considering a gastric bypass to help with the gastroparesis. She does have type 1 diabetes, so even after gastric bypass she will need to continue on daily insulin and she understands that. Currently, blood sugars are running high, fastings 150 to 200, after breakfast about the same, by lunch 200 to 210, after lunch 300, by after supper 200 to 250. No hypoglycemia. Exercise is limited. She has arthritis, osteoarthritis, and psoriatic arthritis with a lot of back pain and knee pain, so does not exercise regularly. DIET: For breakfast, she usually has cereal, for lunch half a sandwich and some soup, in the afternoon chips or Pretzels, and for supper usually meat and vegetable meal and evening snack a cheese steak or some cereal. Complication evaluation is up-to-date. PAST MEDICAL HISTORY: Type 1 diabetes complicated by autonomic neuropathy with gastroparesis and proliferative diabetic retinopathy, psoriatic arthritis on Humira, hypertension, hyperlipidemia, depression, asthma, iron deficiency anemia, GERD, stress urinary bladder incontinence, hiatal hernia, constipation, and hypothyroidism. PAST SURGICAL HISTORY: Vitrectomy. Current Outpatient Prescriptions Medication Sig Dispense Refill ??? bethanechol (URECHOLINE) 10 mg Tablet Take 1 tablet by mouth 3 times daily. 90 tablet 3 ??? trimethobenzamide (TIGAN) 300 mg Capsule Take 1 capsule by mouth 4 times daily as needed. 90 capsule 12 ??? ondansetron (ZOFRAN-ODT) 8 mg Tablet, Rapid Dissolve Take 1 tablet by mouth every 8 hours as needed for Nausea. 20 tablet 11 ??? esomeprazole (NEXIUM) 40 mg Capsule, Delayed [...] ??? Domperidone, Bulk, Powder 10 mg by [facility].(Non-Drug; Combo Route) route 3 times daily (before meals). 500 g 11 ??? Diabetic Supplies, Miscellan. [facility] Form faxed to [employer] for pump/diabetic supplies. 600 each3 ??? levothyroxine [...] 60 suppository 3 ??? Diabetic Supplies, Miscellan. [facility] Inject 1 each subcutaneously 4 times daily. Faxed pump and supply order to [employer] at [phone]. Dx Code: 250.01 100 each 12 ??? [...] by mouth daily. No current facility-administered medications for this visit. Allergies Allergen Reactions ??? Codeine Phosphate Nausea Only ??? Propoxyphene N-Acetaminophen Nausea Only SOCIAL HISTORY: Unemployed, . Her is retired. She is on disability. She quit smoking in 1984, nondrinker. COMPLETE REVIEW OF SYSTEMS: She had some palpitations in November, was seen in the emergency room. Symptoms resolved and felt some might be related to her gastric reflux. She continues to have a lot of nausea and vomiting and occasional constipation. She has arthritis with pain, particularly in the knees and low back. The remainder of the review of systems is negative. On physical exam, blood pressure 126/59, pulse 84, and weight 207. In general, she is a well-developed woman, in no acute distress. Her skin is smooth, warm, and dry. On neurologic exam, she has good light touch sensation to the monofilament. Psych: Mood and affect appropriate. LABORATORY TESTS: Hemoglobin A1c 10%. IMPRESSION/PLAN: Roxann Baxter is a 59-year-old woman with long-standing type 1 diabetes whose blood sugar is poorly controlled. She takes a lot more bolus insulin than basal insulin and overall blood sugars are just running high. We are going to increase her basal rates, midnight 0.725, 4:00 a.m. 0.875, 9:30 a.m. 0.825, 3:30 p.m. 0.85, 7:00 p.m. 0.85 and we will adjust her insulin sensitivity to 25 since her correction does not always seem to work for her. We will have her return to see Dr. Pimentel in about four months. She will get hemoglobin A1c, creatinine, microalbumin, lipids, and TSH in the [facility] lab. documented in this encounter Plan of Treatment Upcoming Encounters Date Type Department Care Team (Late st Contact Info) Description 05/17/2024 2:30 PM EST Office [place] [phone] Alcides Bonilla MD [facility] [place] [address] 04/06/2049 9:00 AM EST Hospital Encounter [place] [phone] Harry Guerrero MD [facility] DR GASTROENTEROLOGY DEPT. [place], [place] [address] documented as of this encounter Results * Microalbumin, urine, random (05/16/2015 2:08 PM EST) Creatinine, Urine 95 mg/dL ARANZA MOON MILLENNIUM Albumin, Urine <3.0 mg/L ISABEL R MILLENNIUM Albumin / Creatinin Ratio, Urine <3 mcg/mg Cr CERNER MILLENNIUM Comment: Reference Range* Random collection (mcg/mg creatinine) Normal ?<30 Microalbuminuria ?? 30 - 300 Clinical Albuminuria ?? >300 *[place] Diabetes Association. Diabetic Nephropathy. Diabetes Care 1997;(Suppl 1):S24-S27 Exercise within 24 hour, infection, fever, CHF, marked hyperglycemia, and marked hypertension may elevate urinary albumin excretion over baseline values. Urine specimen (specimen) 05/16/2015 2:08 PM EST 05/16/2015 2:14 PM EST Narrative Resulting Agency Comment Spec In Lab Radha Booker MD URINE ORDERABLES [facility]ERMAGDALENA EVANSI[facility] * HDL/Cholesterol Profile (05/16/2015 1:35 PM EST) Cholesterol, Total 161 <=199 mg/dL CERNER MILLENNIUM Comment: Recommendations of the NCEP Adult Treatment Panel for the following risk cutoff thresholds for the [place] population: Desirable: <200 mg/dL Borderline High: 200-239 mg/dL High: > or = 240 mg/dL HDL Cholesterol 69 >=40 mg/dL CER NER MILLENNIUM Comment: Reference range: ??Low HDL: ?? < 40 mg/dL ??Normal: ?40-60 mg/dL ??Desirable: > 60 mg/dL MARIANA 2001; 285(19):4374-5237 Cholesterol/HDL Ratio 2.3 ratio CERNER MILLENNIUM Comment: A Cholesterol to HDL ratio below 4:1 is desirable. ??Studies suggest that increased CAD risk occurs at ratios above 5 for females and above 6 for men. ? [place] Heart Association ??(http://www.americanheart.org) ? Uma Int Med, 1994; 121:641 ? AM J Med, 1998; 105(1A):48S Blood specimen (specimen) 05/16/2015 1:35 PM EST 05/16/2015 1:42 PM EST Narrative Resulting Agency Comment Spec In Lab Radha Booker MD CHEMISTRY ORDERAB LES Performing Organization Address [facility] Co de Phone Number [facility] * (ABNORMAL) TSH (05/16/2015 1:35 PM EST) Thyroid Stimulating Hormone 16.77(H) 0.27 - 4.20 mcIU/mL [facility] Blood specimen (specimen) 05/16/2015 1:35 PM EST 05/16/2015 1:42 PM EST Narrative Resulting Agency Comment Spec In Lab Radha Booker MD CHEMISTRY ORDERAB LES Performing Organization Address [facility] Co de Phone Number [facility] * Creatinine (05/16/2015 1:35 PM EST) Creatinine 0.90 0.70 - 1.20 mg/dL CERNER MILLENNIUM Comment: Please note that the pediatric reference intervals supplied above were not validated at [facility]. Results from pediatric patients should be interpreted in conjunction to the patient's age, height and muscle mass. Est Glomerular Filtration Rate >60 >=60 CERNER MILLENNIUM Comment: This estimated GFR (eGFR) value was [...] the following links into your internet browser. [email or web address] Blood specimen (specimen) 05/16/2015 1:35 PM EST 05/16/2015 1:42 PM EST Narrative Resulting Agency Comment Spec In Lab Radha Booker MD CHEMISTRY ORDERAB LES [facility] * (ABNORMAL) Hemoglobin A1c (05/16/2015 1:35 PM EST) Hemoglobin A1c 9.4(H) 4.3 - 5.6 % [facility] Comment: Reference Range: 4.3 - 5.6% 5.7 - 6.4% - Increased Risk of Developing Diabetes Mellitus 6.5% - Consistent with diagnosis of Diabetes Mellitus In the absence of hyperglycemia (i.e. plasma glucose > 200 mg/dL) or classic symptoms of hyperglycemia a repeat measurement of HbA1c should be performed on a separate sample to confirm the diagnosis. Diagnosis and Classification of Diabetes Mellitus, Diabetes Care 2013; 36: Suppl. 1, S67-74 Estimated Average Glucose 223 mg/dL [facility] Comment: eAG equivalents for HbA1c percentages: HbA1c(%) ?eAG(mg/dL) 6.0 ?126 6.5 ?140 7.0 ?154 7.5 ?169 8.0 ?183 8.5 ?197 9.0 ?212 9.5 ?226 10.0 ? 240 Limitations: The eAG calculation has not been validated on women, individuals below 18 years old and above 70 years old, and individuals with hemoglobinopathies. Additional resources are available on the ADA website: [email or web address].charming [email or web address] Rich MCDANIEL, Brenda J, aWllace R, et al. ??Translating the A1C assay into estimated average glucose values. ??Diabetes Care 2008:31(8):6535-3788. Blood specimen (specimen) 05/16/2015 1:35 PM EST 05/16/2015 1:42 PM EST Narrative Resulting Agency Comment Spec In Lab Radha Booker MD CHEMISTRY ORDERAB LES [facility] documented in this encounter Visit Diagnoses Diagnosis Diabetes mellitus type 1, uncontrolled Type I (juvenile type) diabetes mellitus without mention of complication, uncontrolled documented in this encounter Care Teams Digital Camera Technician Relationship Specialty Start Date End Date Nayla Miramontes MD [address] [place] [address] PCP - General 05/21/11 05/10/21 documented as of this encounter
--- OUTSIDE RECORDS SUMMARY | 2024-03-07 19:00 | XMS_ITS | Encounter Summary ---
Author Organization [facility] Address [facility] [place] [address] Care Team Providers Care Dismantler Name Role Phone Nayla Miramontes MD Primary Care Provider [phone] Reason for Visit * Reason Comments Post Op 1 mo ck s/p CE/IOL O D Encounter Details Date Type Department Care Team (Late st Contact Info) Description 02/12/2015 2:30 PM EST [place] [address] Alexis Villalba MD [facility] [place] [address] S/P cataract extraction and insertion of intraocular lens, right; Pseudophakia of both eyes (OD - 01/17/15, OS - 09/26/14) Social History Tobacco Use Types Packs/Day Years [...] as of this encounter Progress Notes * Alexis Villalba MD - 02/12/2015 2:05 PM EST Assessment/Plan: 1. 1 month s/p CE/IOL OD Doing well with normal post-op appearance, off drops 2. PCIOL OS 3. IDDM with involuted PDR s/p PRP [facility] [employer] Rx written. Counselled re safety and possible PCO in future. Follow up: With Dr. Herrera in 3 months. documented in this encounter Plan of Treatment Upcoming Encounters Date Type Department Care Team (Late st Contact Info) Description 05/17/2024 2:30 PM EST Office Visit Gastroenterology at [place] [phone] Alcides Bonilla MD [facility] [place] [address] 04/06/2049 9:00 AM EST Hospital Encounter Gastroenterology at [place] [phone] Harry Guerrero MD [facility] [place] [address] documented as of this encounter Visit Diagnoses Diagnosis S/P cataract extraction and insertion of intraocular lens, right Pseudophakia of both eyes (OD - 01/17/15, OS - 09/26/14) Lens replaced by other means documented in this encounter Care Teams Dismantler Relationship Specialty Start Date End Date Nayla Miramontes MD [address] [place] [address] PCP - General 05/21/11 05/10/21 documented as of this encounter
--- OUTSIDE RECORDS SUMMARY | 2024-03-07 19:00 | XMS_ITS | Encounter Summary ---
[place] [address] Care Team Providers Care Neonatal Nurse Name Role Phone Nayla Miramontes MD Primary Care Provider [phone] Reason for Visit * Reason Onset Date Comments Other 07/26/2015 results Encounter Details Date Type Department Care Team (Late st Contact Info) Description 07/26/2015 Telephone [place] [address] Carmela Hyde RN Other (results) Social History Tobacco Use Types Packs/Day Years [...] encounter Miscellaneous Notes * Telephone Encounter - Carmela Hyde RN - 07/26/2015 3:02 PM EDT ) Could you please let the pt know that her Hb a1c is still 9.7, so she needs to increase her insulin pump? 2) Her TSH level is still very high, so if she is taking the doses according to our medication record, she would increase the dose to daily 175 mcg. ? 3) Please confirm that she has started Humira. ? Thanks ? Darryl Called Roxann and let her know Dr. Burgos would like her to follow up with Endocrinology regarding elevated A1c and TSH. Asked if she has started Humira, she says she has not. She says last time she was on it rx had to go through a specialty pharmacy. Told her Dr. Burgos sent rx to [facility], but [facility]. documented in this encounter Plan of Treatment Upcoming Encounters Date Type Department Care Team (Late st Contact Info) Description 05/17/2024 2:30 PM EST Office Visit [place] [address] Alcides Bonilla MD [facility] [place] [address] 04/06/2049 9:00 AM EST Hospital Encounter [place] [address] Harry Guerrero MD [facility] [place] [address] documented as of this encounter Visit Diagnoses Not on filedocumented in this encounter Care Teams Neonatal Nurse Relationship Specialty Start Date End Date Nayla Miramontes MD [facility] [address] [place] [address] PCP - General 05/21/11 05/10/21 documented as of this encounter
--- OUTSIDE RECORDS SUMMARY | 2024-03-07 19:00 | XMS_ITS | Encounter Summary ---
Author Organization [facility] [place] [address] Care Team Providers Care Internet Marketing Manager Name Role Phone Nayla Miramontes MD Primary Care Provider [phone] Encounter Details Date Type Department Care Team (Late st Contact Info) Description 05/16/2015 2:30 PM EST Office [place] [address] Gloria Pimentel MD [facility] [place] [address] Hypothyroidism, unspecified type Social History Tobacco Use [...] Sign Reading Time Taken Comments Blood Pressure 130/59 05/16/2015 2:34 PM EST Pulse 90 05/16/2015 2:34 PM EST Temperature - - Respiratory Rate - - Oxygen Saturation - - Inhaled Oxygen Concentration - - Weight 95.7 kg (211 lb) 05/16/2015 2:34 PM EST Height 167.6 cm (5' 6) 05/16/2015 2:34 PM EST Body Mass Index 34.06 05/16/2015 2:34 PM EST documented in this encounter Progress Notes * Gloria Pimentel MD - 05/16/2015 2:57 PM EST Endocrinology Clinic Follow-up Visit Reason for Visit: Follow-up of Diabetes Mellitus Type 1 and hypothyroidism HISTORY OF PRESENT ILLNESS: Ms. Roxann Baxter is a 59 y.o. year old lady with history significant for DM type 1 c/b retinopathy, gastroparesis and achalasia, and hypothyroidism Was in ER 2.5 weeks ago for severe constipation (no bm for 2 weeks). TSH 16.77 today Weight has fluctuated in relation to stool issues. No salt cravings. Date of Diagnosis: 43 years ago (dx age 16). Last HgbA1c: 9.4% (today, 05/16/15), 10.0% (01/2015) Current Diabetes Medication regimen: humalog insulin pump Basal - MN - 4a 0.725, 4a - 9:30am 0.875, 9:30am - 3:30p 0.825, 3:30p - MN 0.850. 19.5 units/24hr. Bolus - CR 1:12g, CF 1:25 above 130 mg/dL. FSBG regimen: 4-7x/day -- running 160s-170s pre meal. Fasting 130s. Highest BG early evening couple hours after meal. Often mismatches meal due to gastroparesis. Hypoglycemia: frequent, last was a couple days ago 52 mg/dL. Has been as low as 40mg/dL. No syncopefor the past year though. Smoking: quit in 1984. History of complications 1) Nephropathy - Um:cr <3 (05/16/15) , sCr 0.9 (today, 05/16/15) 2) Neuropathy - no n/t in feet. 3) Retinopathy - Last ophtho evaluation 4) CV disease - LDL 88 (06/2014) PAST MEDICAL HISTORY: Patient Active Problem List Diagnosis Date Noted ??? Pseudophakia of both eyes (OD - [...] mellitus 03/08/2011 ??? Diabetes mellitus MEDICATIONS: Medications 05/16/15 1456 Medication Sig Taking? linaclotide (LINZESS) 145 mcg Capsule Take 1 capsule by mouth daily. Yes esomeprazole (NEXIUM) 40 mg Capsule, Delayed Release(E.C.) Take 1 capsule by mouth 2 times daily (before meals). Yes bisacodyl (DULCOLAX) [address] 1 suppository rectally daily. Yes bethanechol (URECHOLINE) 10 mg Tablet Take 1 tablet by mouth 3 times daily. Yes imipramine (TOFRANIL) 10 mg Tablet Take 1 tablet by mouth nightly. After one week, take one tablet twice per day and increase to three times per day if not too tiring. Yes Domperidone, Bulk, Powder 10 mg by Misc.(Non-Drug; Combo Route) route 3 times daily (before meals).Yes Diabetic Supplies, Miscellan. Misc Form faxed to [facility] for pump/diabetic supplies. Yes levothyroxine (SYNTHROID) 175 mcg Tablet Take 175 mcg by mouth daily. Takes 1 tablet 2 days/week Yes busPIRone (BUSPAR) 5 mg Tablet Take 5 mg by mouth 2 times daily. Yes escitalopram oxalate (LEXAPRO) 20 mg Tablet Take 60 mg by mouth daily. Yes lisinopril (PRINIVIL;ZESTRIL) 20 mg Tablet Take 1 tablet by mouth daily. Yes insulin lispro (HUMALOG) injection Inject 65 Units subcutaneously continuous. Via insulin pump Yes gabapentin (NEURONTIN) 300 mg capsule Take 3 capsules by mouth nightly. Take 300 mg every morning and 600 mg at bedtime Yes Diabetic Supplies, Miscellan. Misc Inject 1 each subcutaneously 4 times daily. Faxed pump and supply order to [facility] at [phone]. Dx Code: 250.01 Yes cyclobenzaprine (FLEXERIL) 5 mg tablet Take 5 mg in the morning and 10 mg at bedtime. Yes levothyroxine (SYNTHROID) 150 mcg tablet Take 150 mcg by mouth. 5 times a week. Yes melatonin 3 mg Tab Take 9 mg by mouth nightly. Yes MULTI-VITAMIN ORAL Take 1 tablet by mouth daily. Yes Adalimumab (HUMIRA PEN) 40 mg/0.8 mL Pen Injector Kit Inject 0.8 mLs subcutaneously every 14 days. trimethobenzamide (TIGAN) 300 mg Capsule Take 1 capsule by mouth 4 times daily as needed. ondansetron (ZOFRAN-ODT) 8 mg Tablet, Rapid Dissolve Take 1 tablet by mouth every 8 hours as neededfor Nausea. diphenhydrAMINE/aluminum-magnesium hydroxide/lidocaine (BMX) 1:1:1 Oral Suspension Take 5-10 mLs bymouth 3 times daily as needed. insulin glargine (LANTUS) 100 unit/mL vial injection Inject 18 Units subcutaneously daily. 1 vial =10ml = 1,000 units Indications: Type 1 Diabetes Mellitus ALLERGIES: Allergies Allergen Reactions ??? Codeine Phosphate Nausea Only ??? Propoxyphene N-Acetaminophen Nausea Only SOCIAL HISTORY: History Smoking status ??? Former Smoker ??? Quit date: 05/06/1984 Smokeless tobacco ??? Never Used FAMILY HISTORY: Family History [...] HPI. PHYSICAL EXAM: Vitals Office Visit from 05/16/2015 in Endocrinology Weight - Scale 95.709 kg (211 lb) Height 167.6 cm (5' 6) BSA (Calculated - sq m) 2.11 sq meters BMI (Calculated) 34.1 Heart Rate 90 BP 130/59 mmHg Gen: NAD, AAOx3, speaking full sentences, calm pleasant demeanor, truncally obese habitus Skin: warm and dry Eyes: PERRL, EOMI, anicteric sclerae without injection, no proptosis or lid lag ENT: moist oral mucosa Neck: no thyromegaly, no thyroid nodules, no lymphadenopathy Pulm: CTAB, no stridor Cardiac: reg s1s2, no m/r/g GI: abdomen soft, NT, ND, normoactive bowel sounds, no hepatomegaly MSK: 5/5 strength in all muscle groups of the upper and lower extremities, no LE edema Neuro: 2+ biceps and patellar DTRs, no clonus, no delay of the relaxation phase, no tremor. Foot exam: normal sensation to monofilament, very dry skin ASSESSMENT/PLAN: 1. DM type 1 - A1c is better, but having mismatches of prandial insulin with meals due to severe gastroparesis, which probably accounts for the high a1c and hypoglycemic episodes. She says her glucose excursions have not gotten any worse since her basal rates were increased by Dr. Booker 3 months ago, so I willhave her continue those settings. To try to ameliorate her glucose control i advised her to take boluses after she eats and try to see how long she should wait after eating before taking her insulin. Already under the care of a fly rail operator for the gastroparesis; may have a gastric bypass forthis in the near future. She has used a CGM in the past; she didn't like it, she felt the timing was off. Lotion on feet nightly. 2. Gretchen's hypothyroidism - --free t4 added on to today's specimen was WNL at 1.01, so her elevated TSH may be elevated from malabsorption of LT4 during constpiation episode. Will plan to recheck TFTs in another 4-6 weeks, which would be 6-8 weeks since her hospitalization (ie resolution of the episode), which would allow her levothyroxine to have re-equilibrated in her system. 3. Follow-up - [id number]. 25 min of this 40 min face to face visit was spent in counseling the patient about diabetes management. GLORIA PIMENTEL MD Production Administrative Assistantcigar maker Section of Endocrinology [facility] documented in this encounter Plan of Treatment Upcoming Encounters Date Type Department Care Team (Late st Contact Info) Description 05/17/2024 2:30 PM EST Office [place] [address] Alcides Bonilla MD [facility] [place] [address] 04/06/2049 9:00 AM EST Hospital Encounter [place] [address] Harry Guerrero MD [facility] DR [place] [address] documented as of this encounter Visit Diagnoses Diagnosis Hypothyroidism, unspecified type documented in this encounter Care Teams Internet Marketing Manager Relationship Specialty Start Date End Date Nayla Miramontes MD Jale[facility] PEARSON [address] [place] [address] PCP - General 2/15/12 2/4/22 documented as of this encounter
--- OUTSIDE RECORDS SUMMARY | 2024-03-07 19:00 | XMS_ITS | Encounter Summary ---
Author Organization [facility] [place] [address] Care Team Providers Care Nurse'S Assistant Name Role Phone Nayla Miramontes MD Primary Care Provider [phone] Reason for Visit * Reason Onset Date Comments Advice Only 04/17/2015 Encounter Details Date Type Department Care Team (Late st Contact Info) Description 04/17/2015 Telephone [place] [phone] Miller Agustin, top taper machine Only Social History Tobacco Use Types Packs/Day Years [...] Miscellaneous Notes * Telephone Encounter - Miller Agusitn, RN - 04/17/2015 1:40 PM EST Patient reports that she was in the ED yesterday (04/16/15) for what she thought might be the flu. States that she had nausea, lower back pain, and diarrhea starting on Friday 04/14 and went to [facility] ED. States that she had a CT and an x-ray and was told that she was nearly impacted. Was put on a liquid diet and was advised to call her dramatic director. Last BM was on 04/14, but this wasa small liquid amount. Last real bowel movement was on 04/12/15 I don't know how that happened. I thought I was going to the bathroom. Per Tamanna Nguyen's last f/u note Constipation: Amitiza 24 mcg BID and restart MiraLax 17 grams qd-BID. She can use MOM 30-60 ml qd prn. Consider anal manometry. Consider PT referral pending oam results. Consider Linaclotide 145- 290 mcg qam. Previously to ED visit was having a bowel movement daily or every other day. Was taking Amitiza 24 mcg BID daily, but no miralax. Has not taken any MOM in the last week. Did take 2 caps miralax yesterday and 1 cap so far today along with regular Amitiza. Advised patient to continue with Amitiza 24 mcg BID and miralax 17 g BID. Patient should take 60 mlMOM today and again tomorrow if no bowel movement in morning. Advised patient to call tomorrow afternoon with an update. The patient indicates understanding of these issues and agrees with the plan. documented in this encounter Plan of Treatment Upcoming Encounters Date Type Department Care Team (Late st Contact Info) Description 05/17/2024 2:30 PM EST Office [place] [address] Alcides Bonilla MD [facility] [place] [address] 04/06/2049 9:00 AM EST Hospital En[place] [address] Harry Guerrero MD [facility] [place] [address] documented as of this encounter Visit Diagnoses Not on filedocumented in this encounter Care Teams Nurse'S Assistant Relationship Specialty Start Date End Date Nayla Miramontes MD [facility] ANABELLA PEARSON [address] [place] [id number] PCP - General 05/21/11 05/10/21 documented as of this encounter
--- OUTSIDE RECORDS SUMMARY | 2024-03-07 19:00 | XMS_ITS | Encounter Summary ---
Author Organization [facility] [address] Care Team Providers Care Community Placement Worker Name Role Phone Nayla Miramontes MD Primary Care Provider [phone] Encounter Details Date Type Department Care Team (Late Contact Info) Description 12/20/2014 Telephone [place] [phone] Tahira Villanueva, RN Social History Tobacco Use Types Packs/Day [...] encounter Miscellaneous Notes * Telephone Encounter - Tahira Villanueva RN - 12/20/2014 8:52 AM EDT Received paperwork form [employer] that patient is now medicare part B eligible meaning that in order to continue to get her pump supplies she must have a c- peptide with fasting blood glucose drawn. Chart reviewed and no c-peptide done previously. Placed call to Roxann to let her know, no answer left message to call back. documented in this encounter Plan of Treatment Upcoming Encounters Date Type Department Care Team (Late Contact Info) Description 05/17/2024 2:30 PM EST Office Visit [place] [address] Alcides Bonilla MD [facility] [place] [address] 04/06/2049 9:00 AM EST Hospital Encounter [place] [address] Harry Guerrero MD [facility] DR GASTROENTER[place] [address] documented as of this encounter Visit Diagnoses Not on filedocumented in this encounter Care Teams Community Placement Worker Relationship Specialty Start Date End Date Nayla Miramontes MD [facility] ANABELLA LÓPEZ [address] [place] [address] PCP - General 05/21/11 05/10/21 documented as of this encounter
--- OUTSIDE RECORDS SUMMARY | 2024-03-07 19:00 | XMS_ITS | Encounter Summary ---
Author Organization [facility] [place] [address] Care Team Providers Care Organisation And Methods Analyst Name Role Phone Nayla Miramontes MD Primary Care Provider [phone] Reason for Visit * Reason Onset Date Comments Medication Refill 10/30/2015 Encounter Details Date Type Department Care Team (Late st Contact Info) Description 10/30/2015 Ref[place] [phone] Alyssa Brown LNA Social History Tobacco Use [...] 2:30 PM EST Office [place] [phone] Alcides Bonilla MD [facility] [place] [address] 04/06/2049 9:00 AM EST Hospital En[place] [address] Harry Guerrero MD [facility] [place] [address] documented as of this encounter Visit Diagnoses Not on filedocumented in this encounter Care Teams Organisation And Methods Analyst Relationship Specialty Start Date End Date Nayla Miramontes MD [facility] ANABELLA LÓPEZ [facility] [address] [place] [address] PCP - General 05/21/11 05/10/21 documented as of this encounter
--- OUTSIDE RECORDS SUMMARY | 2024-03-07 19:00 | XMS_ITS | Encounter Summary ---
Author Organization [facility] [place] [address] Care Team Providers Care Nursing Information Systems Coordinator Name Role Phone Nayla Miramontes MD Primary Care Provider [phone] Reason for Visit * Reason Onset Date Comments Medication Refill 07/12/2015 Amitiza and Be thanechol Encounter Details Date Type Department Care Team (Late Contact Info) Description 07/10/2015 Refill [place] [address] Laila Flores MA GASTROENTEROLOGY DEPT Social History Tobacco Use Types Packs/Day Years [...] encounter Miscellaneous Notes * Telephone Encounter - Laila Flores MA - 07/12/2015 10:19 AM EDT Received voicemail refill request for Amitiza and Bethanechol. Left voicemail requesting medication verification. (Our records indicate Ms. Baxter is taking Linzess not Amitiza.) documented in this encounter Plan of Treatment Upcoming Encounters Date Type Department Care Team (Late Contact Info) Description 05/17/2024 2:30 PM EST Office [place] [phone] Alcides Bonilla MD [facility] DR GASTROENTER[place] [address] 04/06/2049 9:00 AM EST Hospital Encounter [place] [phone] Harry Guerrero MD [facility] DR GASTROENTEROLOGY [place] [address] documented as of this encounter Visit Diagnoses Not on filedocumented in this encounter Care Teams Nursing Information Systems Coordinator Relationship Specialty Start Date End Date Nayla Miramontes MD [facility] ANABELLA LÓPEZ [facility] [address] [place] [address] PCP - General 05/21/11 05/10/21 documented as of this encounter
--- OUTSIDE RECORDS SUMMARY | 2024-03-07 19:00 | XMS_ITS | Encounter Summary ---
Author Organization [facility] [place] [address] Care Team Providers Care Extraction Supervisor Name Role Phone Nayla Miramontes MD Primary Care Provider [phone] Encounter Details Date Type Department Care Team (Late st Contact Info) Description 11/01/2015 [place] [phone] Nadiya Montalvo LPN Social History Tobacco Use [...] Telephone Encounter - Nadiya Montalvo LPN - 11/01/2015 2:54 PM EDT Message on endo nurse line from Dionna culp [facility] diabetes still need current office note within 90 days, C-peptide with FBG, 72 hour CGM trial and form needs to be refaxed with medicaid ID# for Machelle Kay APRN. ext [phone] Forward to Kaya Capps RN documented in this encounter Plan of Treatment Upcoming Encounters Date Type Department Care Team (Late st Contact Info) Description 05/17/2024 2:30 PM EST Office [place] [address] Alcides Bonilla MD [facility] [place] [address] 04/06/2049 9:00 AM EST Hospital En[place] [phone] Harry Guerrero MD [facility] [place] [address] documented as of this encounter Visit Diagnoses Not on filedocumented in this encounter Care Teams Extraction Supervisor Relationship Specialty Start Date End Date Nayla Miramontes MD [facility] ANABELLA LÓPEZ [facility] [address] [place] [address] PCP - General 05/21/11 05/10/21 documented as of this encounter
--- OUTSIDE RECORDS SUMMARY | 2024-03-07 19:00 | XMS_ITS | Encounter Summary ---
Author Organization [facility] [place] [address] Care Team Providers Care Manager Membership Name Role Phone Nayla Miramontes MD Primary Care Provider [phone] Encounter Details Date Type Department Care Team (Late st Contact Info) Description 05/01/2015 Telephone Rheumatology at [place] [phone] Daysi Page Social History Tobacco Use Types Packs/Day Years [...] encounter Miscellaneous Notes * Telephone Encounter - Daysi Page - 05/01/2015 2:26 PM EST FAXED NEFTALI PA * Telephone Encounter - Daysi Page - 05/01/2015 2:22 PM EST FAXED PA FOR STELARA TO [facility] documented in this encounter Plan of Treatment Upcoming Encounters Date Type Department Care Team (Late st Contact Info) Description 05/17/2024 2:30 PM EST Office [place] [address] Alcides Bonilla MD [facility] [place] [address] 04/06/2049 9:00 AM EST Hospital En[place] [phone] Harry Guerrero MD [facility] [place] [address] documented as of this encounter Visit Diagnoses Not on filedocumented in this encounter Care Teams Manager Membership Relationship Specialty Start Date End Date Nayla Miramontes MD [facility] ANABELLA LÓPEZ [email or web address] [address] [place] [address] PCP - General 05/21/11 05/10/21 documented as of this encounter
--- OUTSIDE RECORDS SUMMARY | 2024-03-07 19:00 | XMS_ITS | Encounter Summary ---
Author Organization [facility] [place] [address] Care Team Providers Care Casing Splitter Name Role Phone Nayla Miramontes MD Primary Care Provider [phone] Reason for Visit * Reason Comments Follow-up Encounter Details Date Type Department Care Team (Latest Contact Info) Description 07/24/2015 11:30 AM EDT Office Visit Gastroenterology at [facility] [place] [address] Tamanna Nguyen, TRANSPORTATION MAINTENANCE SPECIALIST [facility] [place] [address] Gastroparesis due to secondary diabetes Social History Tobacco Use Types Packs/Day Years [...] Sign Reading Time Taken Comments Blood Pressure 137/69 07/24/2015 11:28 AM EDT Pulse 78 07/24/2015 11:28 AM EDT Temperature - - Respiratory Rate - - Oxygen Saturation - - Inhaled Oxygen Concentration - - Weight 96.6 kg (213 lb) 07/24/2015 11:28 AM EDT Height 167.6 cm (5' 6) 07/24/2015 11:28 AM EDT Body Mass Index 34.38 07/24/2015 11:28 AM EDT documented in this encounter Patient Instructions * Patient Instructions* Tamanna Nguyen APRN - 07/24/2015 11:49 AM EDT 1. Reglan 10 mg every 6 hours and contact the office if any side effects experienced. Call the office or your primary care provider with an update in 2 weeks 2. Recommend eating smaller more frequent 5-6 low fat meals per day 3. Tigan 300 mg every 6 hours as needed 4. Zofran ODT 8 mg every 8 hours as needed 5. Amitiza 24 mcg twice a day 6. Miralax 34 grams twice a day 7. Smooth Move Tea before bedtime 8. Consider Meclizine 12.5-25 mg every 8 hours as needed; use for treatment of your motion sickness 9. Nexium 40 mg twice a day 10. Transfer care to Dr Yolanda Nguyen TRANSPORTATION MAINTENANCE SPECIALIST [phone] documented in this encounter Progress Notes * Tamanna Nguyen APRN - 07/23/2015 9:18 PM EDT Subjective: Patient ID: Roxann Baxter is a 59 y.o. woman who presents for follow up of her gastrointestinal symptoms. GI Problem List: 1. GERD/Giron's esophagus: --EGD [...] esophageal motility using both standard classification and [place] v3.0 classification. --HROEM 02/01/2014: 1. Normal LES [...] colon and cecum are normal. HPI Comments: She reports no change with regards to symptoms. She admits to not purchasing the Domperidone as instructed at last GI visits. She endorses intermittent nausea and vomiting. It is unpredictable and worse if she overeats. She takes Zofran or Tigan as needed with some benefit. She reports early satiety and postprandial fullness after every meal. Intermittent upper abdominal discomfort. She reports that GERD symptoms are predominantly controlled on Nexium 40 mg BID but admits to breakthrough GERD symptoms at night a few times per week. She continues to avoid eating late at night since it exacerbates her reflux symptoms. She admits to waking up at night secondary to regurgitation. She reports having to sleep upright. She reports that the dysphagia to both solids and liquids remains unchanged. She has not noted muchbenefit with taking Bethanechol 10 mg TID. She reports intermittent cough but no sore throat or hoarseness. She reports present to local ER for evaluation of her constipation. She had gone without a bowel movement for 2 weeks. She underwent a bowel clean out per GI recommendations with improvement. She reports no further episodes of severe constipation. She is currently having a formed to hard formed bowel movement every 3-4 days. She takes Amitiza 24mcg BID and Miralax 17 grams qam and 34 grams qhs. She takes MOM 2 tbsp 3-4 times per week with good results. She reports intermittent straining and incomplete evacuation. No melena, hematochezia, rectal or anal pain. Weight 213 lbs. Remainder of ROS unremarkable. Review of [...] to Visit Medication Sig Dispense Refill ??? bethanechol (URECHOLINE) 10 mg Tablet Take 1 tablet by mouth 3 times daily. 90 tablet 3 ??? lubiprostone (AMITIZA) 24 mcg Capsule Take 1 capsule by mouth 2 times daily (with meals). 60 capsule 11 ??? esomeprazole (NEXIUM) 40 mg Capsule, Delayed Release(E.C.) Take 1 capsule by mouth 2 times daily (before meals). 60 capsule 11 ??? Diabetic Supplies, [facility]. [facility] [employer] for pump/diabetic supplies. 600 each3 ??? Adalimumab (HUMIRA PEN) 40 mg/0.8 mL Pen Injector Kit Inject 0.8 mLs subcutaneously every 14 days. 6 kit 3 ??? linaclotide (LINZESS) 145 mcg Capsule Take 1 capsule by mouth daily. 30 capsule 6 ??? bisacodyl (DULCOLAX) [address] 1 suppository rectally daily. 60 suppository 3 ??? trimethobenzamide (TIGAN) 300 mg Capsule Take 1 capsule by mouth 4 times daily as needed. 90 capsule 12 ??? ondansetron (ZOFRAN-ODT) 8 mg Tablet, Rapid Dissolve Take 1 tablet by mouth every 8 hours as needed for Nausea. 20 tablet 11 ??? imipramine (TOFRANIL) 10 mg Tablet Take 1 tablet by mouth nightly. After one week, take one tablet twice per day and increase to three times per day if not too tiring. 90 tablet 1 ??? Domperidone, Bulk, Powder 10 mg by [facility].(Non-Drug; Combo Route) route 3 times daily (before meals). 500 g 11 ??? levothyroxine (SYNTHROID) 175 mcg Tablet Take 175 mcg by mouth daily. Takes 1 tablet 2 days/week ??? busPIRone (BUSPAR) 5 mg Tablet Take 5 mg by mouth 2 times daily. ??? diphenhydrAMINE/aluminum-magnesium hydroxide/lidocaine (BMX) 1:1:1 Oral Suspension [...] mg at bedtime 180 capsule 3 ??? Diabetic Supplies, Miscellan. [facility] Inject 1 each subcutaneously 4 times daily. Faxed pump and supply order to [employer] at [phone]. Dx Code: 250.01 100 each 12 ??? cyclobenzaprine (FLEXERIL) 5 mg tablet Take 5 mg in the morning and 10 mg at bedtime. 270 tablet 4 ??? levothyroxine (SYNTHROID) 150 mcg tablet Take 150 mcg by mouth. 5 times a week. ??? insulin glargine (LANTUS) 100 unit/mL vial [...] by MARIA DEL CARMEN BOB at [facility] ENDOSCOPY ??? Pro upper gi endoscopy, biopsy 04/27/2012 UPPER GASTROINTESTINAL ENDOSCOPY,WITH BIOPSY SINGLE OR MULTIPLE performed by Luis Bucio MD [facility] ENDOSCOPY ??? Retinal laser surgery ??? Pro vitrectomy,focal laser rx retina 05/16/2013 OS VITRECTOMY, PARS PLANA, LASER performed by Dany Young MD at [facility] MAIN OR ??? Finger surgery ??? Pro colonoscopy, diagnostic 09/13/2013 COLONOSCOPY, DIAGNOSTIC performed by Marie Zamora MD at [facility] ENDOSCOPY ??? Pro colonoscopy, diagnostic 01/10/2014 COLONOSCOPY, DIAGNOSTIC performed by Marie Zamora MD at [facility] ENDOSCOPY ??? Pro upper gi endoscopy, diagnostic N/A 04/24/2014 EGD, UPPER GI ENDOSCOPY performed by Harry Guerrero MD at [facility] ENDOSCOPY ??? Cataract removal Left 09/26/2014 Dr Villalba ??? Cataract removal 01/17/2015 OD - Dr Villalba Vital Signs: BP 137/69; P 78; Wt 213 lbs; Ht 5'6; BMI: 34.5 Objective: Physical Exam Constitutional: She is oriented to person, place, and time. She appears well- developed and well-nourished. No distress. Eyes: Pupils are equal, round, and reactive to light. Abdominal: Soft. Bowel sounds are normal. She exhibits no distension and no mass. There is no tenderness. There is no rebound and no guarding. No hepatosplenomegaly. No succussion splash. No epigastric bruit. Genitourinary: Rectal exam deferred. Neurological: She is alert and oriented to person, place, and time. Skin: Skin is warm and dry. No rash noted. She is not diaphoretic. No erythema. No pallor. Psychiatric: She has a normal mood and affect. Her behavior is normal. Judgment and thought contentnormal. Vitals reviewed. Assessment and Plan: 1. Dysphagia: she has noted no benefit with taking Bethanechol 10 mg TID before meals and recommendstopping. If symptoms worsen then consider repeating the HROEM. 2. Gastroparesis: she has not ordered the Domperidone as recommended at several GI appointments. Recommend Reglan 10 mg QID. Reviewed the side effects and mechanism of action of Reglan. If she experiences side effects then consider Erythromycin or Domperidone. She can use Zofran ODT and/or Tigan 300 mg QID prn. Continue with gastroparesis diet and eating smaller more frequent 5-6 low fat meals per day. 3. Giron's esophagus/GERD: her breakthrough reflux symptoms are most likely d/t severe ineffective esophageal motility and mild gastroparesis. Discussed working on gastroparesis and hopefully her symptoms will improve. If no benefit then recommend Briones ph study on Nexium 40 mg qd and repeat HROEM. Continue Nexium 40 mg BID. GERD diet and lifestyle modifications. 4. Constipation: recommend Amitiza 24 mcg BID, Miralax 34 grams BID and Smooth Move Tea qhs. She can use MOM 30-60 ml qd prn. Consider anal manometry. Consider PT referral pending oam results. Consider Linaclotide 145-290 mcg qam. I did my best to answer all of her questions. The following plan was formulated. Plan: 1. Reglan 10 mg every 6 hours and contact the office if any side effects experienced. 2. Instructed patient the GI office or Dr Miramontes with an update in 2 weeks since I will not be able to f/u with her 3. Recommend eating smaller more frequent 5-6 low fat meals per day 4. Tigan 300 mg every 6 hours prn 5. Zofran ODT 8 mg every 8 hours prn 6. Amitiza 24 mcg BID 7. Miralax 34 grams BID 8. Smooth Move Tea qhs 9. Consider Meclizine 12.5-25 mg TID prn; use for treatment of motion sickness 10. Nexium 40 mg BID 11. Follow up with PCP in 2-3 months re: evaluate Reglan and gastroparesis. 12. Transfer care to Dr Guerrero and schedule GIF with his next available appointment Patient understands and is agreeable to the above plan. Written instructions provided. Tamanna Nguyen APRN Section of Gastroenter[place] [address] documented in this encounter Plan of Treatment Upcoming Encounters Date Type Department Care Team (Late st Contact Info) Description 05/17/2024 2:30 PM EST Office [place] [phone] [facility] [place] [place] [address] 04/06/2049 9:00 AM EST Hospital Encounter [place] [address] [facility] [place] [address] documented as of this encounter Visit Diagnoses Diagnosis Gastroparesis due to secondary diabetes Secondary diabetes mellitus with neurological manifestations, not stated as uncontrolled, or unspecified documented in this encounter Care Teams Casing Splitter Relationship Specialty Start Date End Date Nayla Miramontes MD [facility] ANABELLA [address] [place] [address] PCP - General 05/21/11 05/10/21 documented as of this encounter
--- OUTSIDE RECORDS SUMMARY | 2024-03-07 19:00 | XMS_ITS | Encounter Summary ---
[place] [address] Care Team Providers Care Surface Lay Out Technician Name Role Phone Nayla Miramontes MD Primary Care Provider [phone] Reason for Visit * Reason Onset Date Comments Prior Authorization 05/01/2015 Celebrex Encounter Details Date Type Department Care Team (Late Contact Info) Description 05/01/2015 Tele[place] [address] Lyubov Hutton vice president talent management (Celebrex ) Social History Tobacco Use Types Packs/Day Years [...] Telephone Encounter - Lyubov Hutton RN - 05/01/2015 11:43 AM EST PA received and clinical portion filled in and last office notes and labs provided to be submitted with PA. documented in this encounter Plan of Treatment Upcoming Encounters Date Type Department Care Team (Late Contact Info) Description 05/17/2024 2:30 PM EST Office [place] [address] Alcides Bonilla MD [facility] [place] [address] 04/06/2049 9:00 AM EST Hospital En[place] [phone] Harry Guerrero MD [facility] DR [place] [address] documented as of this encounter Visit Diagnoses Not on filedocumented in this encounter Care Teams Surface Lay Out Technician Relationship Specialty Start Date End Date Nayla Miramontes MD [facility] ANABELLA LÓPEZ [facility] [address] [place] [address] PCP - General 05/21/11 05/10/21 documented as of this encounter
--- OUTSIDE RECORDS SUMMARY | 2024-03-07 19:00 | XMS_ITS | Encounter Summary ---
Author Organization [facility] [place] [address] Care Team Providers Care Director Of Sustainable Design Name Role Phone Nayla Miramontes MD Primary Care Provider [phone] Encounter Details Date Type Department Care Team (Late st Contact Info) Description 03/20/2015 10:00 AM EST Office Visit Gastroenterology at [facility] [place] [address] Tamanna Nguyen, [employer] [place] [address] Other constipation Social History Tobacco Use Types Packs/Day [...] Sign Reading Time Taken Comments Blood Pressure 125/59 03/20/2015 10:06 AM EST Pulse 83 03/20/2015 10:06 AM EST Temperature - - Respiratory Rate - - Oxygen Saturation - - Inhaled Oxygen Concentration - - Weight 99.3 kg (219 lb) 03/20/2015 10:06 AM EST Height 167.6 cm (5' 6) 03/20/2015 10:06 AM EST Body Mass Index 35.35 03/20/2015 10:06 AM EST documented in this encounter Patient Instructions * Patient Instructions* Tamanna Nguyen APRN - 03/20/2015 10:20 AM EST 1. Domperidone 10 mg TID before meals 2. Zofran ODT 8 mg TID prn 3. Tigan 300 mg TID prn; consider Marinol 2.5-5 mg BID-TID 4. Nexium 40 mg BID 5. Bethanechol 10 mg TID before meals 6. Amitiza 24 mcg BID; consider Linaclotide 145-290 mcg qam 7. MiraLax 17 grams qd-BID 8. MOM 30-60 ml qd prn 9. Call or email with an update in 2-3 weeks 10. Instructed patient to contact Dr Chavez regarding the next stop re: gastric bypass 11. Follow up 4-6 months Tamanna Nguyen APRN [phone] documented in this encounter Progress Notes * Tamanna Nguyen APRN - 03/20/2015 7:53 AM EST Subjective: Patient ID: Roxann Baxter is a [...] esophageal motility using both standard classification and [place] v3.0 classification. --HROEM 02/01/2014: 1. Normal LES [...] cecum are normal. HPI Comments: She reports that the dysphagia to both solids and liquids remains unchanged. She finds Bethanechol 10 mg TID somewhat effective but symptoms are not completely improved. She is tolerating solid foods but will drink Glucerna shake x 1-2 per day. She continues to avoid eating late at night since it exacerbates her reflux symptoms. She admits towaking up at night secondary to regurgitation. She reports that GERD symptoms are predominantly controlled on Nexium 40 mg BID but admits to breakthrough GERD symptoms at night a few times per week. She meet with Dr Chavez who recommend bariatric surgery for treatment of her GERD symptoms given her severe IEM and co-morbities. She reports constant cough. No sore throat or hoarseness. Intermittent nausea and vomiting qod. It is unpredictable. She reports taking Zofran or Tigan prn with some benefit. She follows the gastroparesis diet. Early satiety and postprandial fullness remainunchanged. She has not ordered the Domperidone. She reports having a bowel movement every day. Some days stools are formed and other days they are will be pellet like. She uses Amitiza 24 mcg BID. She reports intermittent straining and incomplete evacuation. Weight gain of 9 lbs over the past 2 months. Remainder of ROS unremarkable. Review of Systems [...] ??? Domperidone, Bulk, Powder 10 mg by Misc.(Non-Drug; Combo Route) route 3 times daily (before meals). 500 g 11 ??? Diabetic Supplies, Miscellan. Misc Form faxed to [employer] for pump/diabetic supplies. 600 each3 ??? levothyroxine [...] daily. Faxed pump and supply order to [employer] at [phone]. Dx Code: 250.01 100 each 12 ??? [...] performed by MARIA DEL CARMEN BOB at [facility] ENDOSCOPY ??? Pro upper gi endoscopy, biopsy 04/27/2012 UPPER GASTROINTESTINAL ENDOSCOPY,WITH BIOPSY SINGLE OR MULTIPLE performed by Luis Bucio MD [facility] ENDOSCOPY ??? Retinal laser surgery ??? Pro vitrectomy,focal laser rx retina 05/16/2013 OS VITRECTOMY, PARS PLANA, LASER performed by Dany Young MD at [facility] MAIN OR ??? Finger surgery ??? Pro colonoscopy, diagnostic 09/13/2013 COLONOSCOPY, DIAGNOSTIC performed by Marie Zamora MD at [facility] ENDOSCOPY ??? Pro colonoscopy, diagnostic 01/10/2014 COLONOSCOPY, DIAGNOSTIC performed by Marie Zamora MD at [facility] ENDOSCOPY ??? Pro upper gi endoscopy, diagnostic N/A 04/24/2014 EGD, UPPER GI ENDOSCOPY performed by Harry Guerrero MD at [facility] ENDOSCOPY ??? Cataract removal Left 09/26/2014 Dr Villalba ??? Cataract removal 01/17/2015 OD - Dr Villalba Vital Signs: BP 125/59; P 83; Wt 219 lbs; Ht 5'6; BMI: 35.4 Objective: Physical Exam Constitutional: She is oriented [...] Vitals reviewed. Assessment and Plan: 1. Dysphagia: Bethanechol to 10 mg TID before meals. Warm liquids before meals. 2. Gastroparesis: recommend she order and start Domperidone 10 mg QID before meals. Instruction sheet provided to patient with numbers to order the medication. She can use Zofran ODT and/or Tigan 300mg QID prn. Continue with gastroparesis diet and eating smaller more frequent 5-6 low fat meals perday. 3. Giron's esophagus/GERD: continue Nexium 40 mg BID. Recommend Zantac 300 mg qhs but consider stopping once she start Domperidone. Recommend she contact Dr Farias's office regarding gastric bypass. GERD diet and lifestyle modifications. Consider Briones ph study. 4. Constipation: Amitiza 24 mcg BID and restart [...] 145-290 mcg qam 7. MiraLax 17 grams qd-BID 8. MOM 30-60 ml qd prn 9. Call or email with an update in 2-3 weeks 10. Instructed patient to contact Dr Chavez regarding the next stop re: gastric bypass 11. Follow up 3 months Patient understands and is agreeable to the above plan. Written instructions provided. Tamanna Nguyen APRN Section of Gastroenterology and Hepatology [place], [place] [phone] documented in this encounter Plan of Treatment Upcoming Encounters Date Type Department Care Team (Late st Contact Info) Description 05/17/2024 2:30 PM EST Office [place] [address] Alcides Bonilla MD [facility] [place] [address] 04/06/2049 9:00 AM EST Hospital [place] [address] Harry Guerrero MD [facility] [place] [address] documented as of this encounter Visit Diagnoses Diagnosis Other constipation documented in this encounter Care Teams Director Of Sustainable Design Relationship Specialty Start Date End Date Nayla Miramontes MD [facility] ANABELLA LÓPEZ [facility] [address] [place] [address] PCP - General 05/21/11 05/10/21 documented as of this encounter
--- OUTSIDE RECORDS SUMMARY | 2024-03-07 19:00 | XMS_ITS | Encounter Summary ---
[place] [address] Care Team Providers Care Weasand Trimmer Name Role Phone Nayla Miramontes MD Primary Care Provider Reason for Visit * Reason Onset Date Comments Prior Authorization 04/20/2015 Encounter Details Date Type Department Care Team (Late st Contact Info) Description 04/20/2015 Telephone [place] [phone] Lluvia Dey CMA GASTROENTEROLOGY DEPT Prior Authorization Social History Tobacco Use Types Packs/Day Years [...] encounter Miscellaneous Notes * Telephone Encounter - Lluvia Dey CMA - 04/20/2015 2:55 PM EST Prior Auth Medication name/dose/directions: inzess 145 mcg QD Pharmacy Name and phone number: [facility] pharmacy [phone] Insurance name and phone number: [place] [phone] Insurance ID number: [id number] Faxed to health plan on: 04/20/2014 Medications tried and failed: amitiza, miralax, dulcolax, benefiber Health plan decision: Pending documented in this encounter Plan of Treatment Upcoming Encounters Date Type Department Care Team (Late st Contact Info) Description 05/17/2024 2:30 PM EST Office [place] [address] Alcides Bonilla MD [facility] [place] [address] 04/06/2049 9:00 AM EST Hospital Encounter [place] [phone] Harry Guerrero MD [facility] [place] [address] documented as of this encounter Visit Diagnoses Not on filedocumented in this encounter Care Teams Weasand Trimmer Relationship Specialty Start Date End Date Nayla Miramontes MD [facility] ANABELLA PEAR[address] [place] [address] PCP - General 05/21/11 05/10/21 documented as of this encounter
--- OUTSIDE RECORDS SUMMARY | 2024-03-07 19:00 | XMS_ITS | Encounter Summary ---
[place] [address] Care Team Providers Care Computerized Table Cutter Name Role Phone Nayla Miramontes MD Primary Care Provider [phone] Reason for Visit * Reason Onset Date Comments Prior Authorization 09/13/2015 Encounter Details Date Type Department Care Team (Late st Contact Info) Description 09/13/2015 Telephone [place] [address] Lluvia Dey CMA GASTROENTEROLOGY DEPT Prior Authorization [...] Telephone Encounter - Lluvia Dey CMA - 09/13/2015 2:31 PM EDT Medication Prior Authorization 4L Gastroenterology / [place] [address] Subscriber Insurance: [place] Physician: Harry Guerrero Return Pharmacy: [facility] Medication Requested: Amitiza Strength: 24 mcg Frequency: BID Disp.: 60 Refills: 11 Currently taking: yes Diagnosis for this medication: Chronic constipation ICD-10 code: K59.09 Prior medications trialed in this patient: Benefiber, miralax, metamucil, citracel, milk of magnesia, amitiza 8 mcg, ex-lax Medication: Outcome/Adverse Reactions: treatment failure Decision: Approved Tracking number/ Effective date: Start: 09/13/2015 End: 09/12/2016 documented in this encounter Plan of Treatment Upcoming Encounters Date Type Department Care Team (Late st Contact Info) Description 05/17/2024 2:30 PM EST Office Visit [place] [address] Alcides Bonilla MD [facility] [place] [address] 04/06/2049 9:00 AM EST Hospital Encounter Gastroenterology at [place] [phone] Harry Guerrero MD [facility] [place] [address] documented as of this encounter Visit Diagnoses Not on filedocumented in this encounter Care Teams Computerized Table Cutter Relationship Specialty Start Date End Date Nayla Miramontes MD [facility] [address] [place] [address] PCP - General 05/21/11 05/10/21 documented as of this encounter
--- OUTSIDE RECORDS SUMMARY | 2024-03-07 19:00 | XMS_ITS | Encounter Summary ---
[place] [address] Care Team Providers Care Continuous Still Operator Name Role Phone Nayla Miramontes MD Primary Care Provider [phone] Reason for Visit * Reason Onset Date Comments Prior Authorization 05/01/2015 CELISAIAHREX PA FAXED TO [facility] Encounter Details Date Type Department Care Team (Late st Contact Info) Description 05/01/2015 [place] [address] Daysi Page Prior Authorization (CELEBREX PA FAXED TO [facility]) Social History Tobacco Use Types Packs/Day Years [...] * Telephone Encounter - Daysi Page - 05/02/2015 10:17 AM EST [place] MEDICAID DENIED CELECOXIB - PATIENT TO GET INFORMATION ON OTHER INSURANCE (MEDICARE) documented in this encounter Plan of Treatment Upcoming Encounters Date Type Department Care Team (Late st Contact Info) Description 05/17/2024 2:30 PM EST Office [place] [address] Alcides Bonilla MD [facility] [place] [address] 04/06/2049 9:00 AM EST Hospital Encounter [place] [phone] Harry Guerrero MD [facility] DR GASTROENTER[place] [address] documented as of this encounter Visit Diagnoses Not on filedocumented in this encounter Care Teams Continuous Still Operator Relationship Specialty Start Date End Date Nayla Miramontes MD [facility] [address] [facility] [place] [address] [place] [address] PCP - General 05/21/11 05/10/21 documented as of this encounter
--- OUTSIDE RECORDS SUMMARY | 2024-03-07 19:00 | XMS_ITS | Encounter Summary ---
Author Organization [facility] [place] [address] Care Team Providers Care Assignment Clerk Name Role Phone Nayla Miramontes MD Primary Care Provider [phone] Reason for Visit * Reason Comments Follow-up Encounter Details Date Type Department Care Team (Late st Contact Info) Description 07/24/2015 10:00 AM EDT Office [place] [address] Darryl Burgos MD [facility] [place] [address] Psoriatic arthritis; Other specified hypothyroidism; Vitamin D deficiency; Diabetes mellitus type 2, uncontrolled Social History Tobacco Use Types Packs/Day [...] * Patient Instructions* Darryl Burgos MD - 07/25/2015 8:51 PM EDT 1) Resume every other week Humira, 40 mg. 2) Resume twice daily Celebrex. 3) Check labs today. 4) Return to follow up in three months. documented in this encounter Progress Notes * Darryl Burgos MD - 07/24/2015 10:31 AM EDT REASON FOR VISIT: Follow up for psoriatic arthritis and psoriasis. INTERVAL HISTORY: The pt was a 59-year-old female, who returned for a follow up of psoriatic arthritis and psoriasis. The pt noted that since her last visit on Apr 30, 2015, she continued to be off adalimumab and Celebrex for immunosuppression of her psoriatic arthritis and psoriasis due to insurance issues. She felt that her overall neck pain, back pain, and joint pain had deteriorated significantly since she was off adalimumab and Celebrex. Overall, the joint pain was worst in her knees. She also complained of bilateral knee joint swelling, particularly the left knee. Otherwise, she had no fever, chest pain, dyspnea, dysuria, headache, easy bruising, rash, or polydipsia. She did complain of a multitude of gastrointestinal symptoms due to diabetic gastroparesis and chronic constipation. PAST MEDICAL HISTORY: Psoriatic arthritis Psoriasis Diabetes mellitus I, on insulin pump, poorly controlled (Hba1c = 9.3) Diabetic ketoacidosis Diabetic gastroparesis Proliferative diabetic retinopathy Vitreous hemorrhage of both eyes Hypothyroidism GERD Hypertension Hyperlipidemia Severe esophageal dilatation with non emptying of the esophagus (07/2013) Esophageal dysmotility (07/2013) Large hiatal hernia (07/2013) Asthma Severe iron deficiency Microcytic anemia Vitamin D deficiency H/o gastric ulcer with perforation Severe leftward lumbar scoliosis at L2-L3 (26 degrees) (05/2012) Giron's esophagus Large hiatus hernia (04/2011) Reflux esophagitis (04/2011) Proliferative diabetic retinopathy (L worse than R) 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 ALLERGIES: Codeine (vomiting) Propoxyphene N-acetaminophen (ulcer) SOCIAL HISTORY: Cigarettes: 2 ppd x 12 years (quit in 1984). Alcohol: Rare alcohol use. Pt denied any use of illicit drugs. She was , with two children. Her granddaughter of leukemia in June 2010. She was living with her family. 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 She was currently applying for disability. FAMILY HISTORY: ?Mother - Hypertension, hyperlipidemia, hypothyroidism; of cardiac aneurysm at the age of 48. Father - Stroke x two; of a brain tumor at the age of 82. ? PHYSICAL EXAMINATION: Vitals 07/24/2015 SYSTOLIC 137 DIASTOLIC 69 PULSE 78 Height (Sierra Leonean) 5' 6 Height (Metric) 167.6 cm Weight (S[place] Leonean) 213 lbs Weight (Metric) 96.616 kg BODY MASS INDEX 34.4 kg/m2 General - Alert, co-operative, no apparent distress, oriented x 3. HEENT - PERRL, EOMI bilaterally, conjunctiva pink, no sclerae icterus or malar rash. Neck - + Decrease in range of motion of the neck on flexion and lateral rotation to both sides; + posterior cervical spinal tenderness on palpation. Heart - Regular rate and rhythm, normal S1 and S2; no murmurs, rubs, and gallop. Lungs - Symmetric, no respiratory distress; clear to auscultation bilaterally. Abdomen - Soft, non-tender, non-distended, bowel sound present; + insulin pump in place. Back - Erect, FROM; + diffuse lumbosacral spinal tenderness; no paraspinal tenderness on palpation. Extremities - Upper extremities: FROM of all joints, + right fifth finger in permanent flexion position; + joint tenderness of both shoulders at the acromioclavicular areas on palpation and range of motion; + bilateral 2nd and 3rd MCP and PIP joint discomfort on palpation; + synovitis of bilateral 2nd and 3rd MCP and PIP joints; no joint effusion; + soft tissue swelling of right 5th finger; no clubbing, cyanosis, or edema. Lower extremities: Slight decrease in range of motion of left knee due to pain and swelling; + bilateral knee joint tenderness on palpation; no signs of synovitis or soft tissue swelling; + small right knee joint effusion; + moderate size right knee joint effusion; no clubbing or cyanosis, + trace pitting edema of the left lower leg. Skin - Smooth and intact, + dysmorphic toe nails, + mild psoriatic lesions on both forearms; no telangiectasia on skin or at all nail margins, sclerodactyly, or bruises. Neuro - + Left eye blind; no motor function deficit. Psych - Normal affect. PROCEDURE NOTE: A verbal consent was obtained from the pt for an aspiration of the left knee and intra-articular joint injection of bilateral knees with corticosteroid. The risks and benefits of the procedure were explained to the pt prior to the procedure. The pt's identity was confirmed by asking the pt to repeat her name and date of . The pt was prepped in a sterile manner. A total of 5 c.c. of clear yellow fluid was aspirated from the left knee by the lateral approach. A total of 40 mg of medrol and 1ml of 1% xylocaine was injected into both knees by lateral approach via 25-gauge needles. The sitesof the needle insertion was covered with a sterile band aid at the end of the procedure. There wereno complications associated with the procedure. IMPRESSION : 1) Psoriatic arthritis and 2) psoriasis in a 59-year-old female. The pt's psoriatic arthritis and psoriasis was under poor control since she discontinued adalimumab and Celebrex. She previously failed methotrexate due to inadequate efficacy and worsening nausea. On the day of visit, she received an intra-articular joint injection of both knees with corticosteroid. The pt will resume every other week adalimumab injection and twice daily Celebrex for immunosuppression. She will check labs today. 3) Right knee osteoarthritis and instability. The pt's worsening right knee pain and instability ismultifactorial, i.e. Poorly controlled psoriatic arthritis, osteoarthritis, and multiple structuraldefects. She will be considered for a orthopedic consult after she optimizes immunosuppressive therapy for her psoriatic arthritis. Meanwhile, she will focus on symptomatic pain control with adalimumab and Celebrex. 4) Severe leftward lumbar scoliosis at L2-L3 (26 degrees). The pt's severe back pain is related to both severe leftward lumbar scoliosis at L2-L3 (26 degrees) and inflammatory back disease. She will focus on symptomatic control with Celebrex for now. She will also need to resume adalimumab for immunosuppression. RECOMMENDATIONS: 1) Resume every other week Humira, 40 mg. 2) Resume twice daily Celebrex. 3) Check labs today. 4) Return to follow up in three months. ? Darryl Burgos MD, PhD documented in this encounter Plan of Treatment Upcoming Encounters Date Type Department Care Team (Late st Contact Info) Description 05/17/2024 2:30 PM EST Office [place] [address] Alcides Bonilla MD [facility] [place] [address] 04/06/2049 9:00 AM EST Hospital Encounter [place] [phone] Harry Guerrero MD [facility] [place] [address] documented as of this encounter Procedures Procedure Name Priority Date/Time Associated Diagnosis Comments VITAMIN D, 25-HYDROXY Routine 07/24/2015 11:17 AM EDT Vitamin D deficiency SEDIMENTATION RATE Routine 07/24/2015 11 :17 AM EDT Psoriatic arthritis CRP, CARDIAC RISK (HS CRP) Routine 07/24/2015 11:17 AM EDT Psoriatic arthritis TSH Routine 07/24/2015 11:17 AM EDT Psoriatic arthritis Other specified hypothyroidism HEMOGLOBIN A1C Routine 07/24/2015 11:17 AM EDT Diabetes mellitus type 2, uncontrolled COMPREHENSIVE METABOLIC PANEL Routine 07/24/2015 11:17 AM EDT Psoriatic arthritis documented in this encounter Results * (ABNORMAL) Hemoglobin A1c (07/24/2015 11:17 AM EDT) Hemoglobin A1c 9.7(H) 4.3 - 5.6 % [facility] Mellitus, Diabetes Care 2013; 36: Suppl. 1, O77-23 Estimated Average Glucose 232 mg/dL [facility] [...] resources are available on the ADA website: http://Soup.io.com/DHMCadacalc Rich MCDANIEL, Brenda J, Wallace R, et al. ??Translating the A1C assay into estimated average glucose values. ??Diabetes Care 2008:31(8):3507-6038. Blood specimen (specimen) 07/24/2015 11:17 AM EDT 07/24/2015 11:34 AM EDT Narrative Resulting Agency Comment Spec In Lab Darryl Burgos MD CHEMISTRY ORDERABLES [facility] [place] [address] * High Sensitivity CRP (07/24/2015 11:17 AM EDT) C-Reactive Protein High Sensitivity 3.5 mg/L [facility] Comment: Interpretations: 1) For accurate cardiac risk assessment, the average of 2 values >2 weeks apart should be obtained (ref 1&2). A value >10 mg/L indicates an inflammatory condition, concentrations >10 mg/L should not be used for cardiac risk assessment. ?<1.0 mg/L: low risk ?1.0 - 3.0 mg/L: moderate risk ?>3.0 mg/L: high risk groups for future cardiovascular events 2) The general reference range of apparently healthy individuals using this test is <5.0 mg/L (derived from the test package insert) References: 1. Shiva CHEEMA et. al. ??AHA/CDC Scientific Statement: Markers of Inflammation and Cardiovascular Disease. ??Circulation 2003; 107:499-511 2. Leif PM. ??Clinical applications of C-reactive protein for cardiovascular disease detection and prevention. ??Circulation 2003; 107:363-369 Blood specimen (specimen) 07/24/2015 11:17 AM EDT 07/24/2015 11:34 AM EDT Narrative Resulting Agency Comment Spec In Lab Darryl Burgos MD CHEMISTRY ORDERABLES [facility] [place] [place] [address] * (ABNORMAL) VIT D Total Evaluation (07/24/2015 11:17 AM EDT) Vitamin D Total 25 OH 28(L) 30 - 100 ng/mL [facility] Comment: Deficient <10 ng/mL Insufficient 10 to 29 ng/mL Sufficient 30 to 100 ng/mL Potential Intoxication >100 ng/mL According to the US National Osteoporosis Foundation, Vitamin D concentrations >30 ng/mL are sufficient to protect bone health. ??The National Kidney Foundation has similarly stated that patients with Vitamin D concentrations <30ng/mL should be considered to be insufficient or deficient. http://Soup.io.AlgEvolve/DHnatlkidneyfoundation http://Dromadaire.com/DHCooperation TechnologyVitD The IDS iSYS Vitamin D Immunoassay detects both 25-OH Vitamin D2 and 25-OH Vitamin D3, but only a total Vitamin D concentration is reported. Blood specimen (specimen) 07/24/2015 11:17 AM EDT 07/24/2015 11:34 AM EDT Narrative Resulting Agency Comment Spec In Lab Darryl Burgos MD CHEMISTRY ORDERABLES Performing Organization Address [facility] Co de Phone Number [facility] [place] [place] [address] * (ABNORMAL) TSH (07/24/2015 11:17 AM EDT) Thyroid Stimulating Hormone 9.84(H) 0.27 - 4.20 mcIU/mL [facility] Blood specimen (specimen) 07/24/2015 11:17 AM EDT 07/24/2015 11:34 AM EDT Narrative Resulting Agency Comment Spec In Lab Darryl Burgos MD CHEMISTRY ORDERABLES Performing Organization Address [facility] Co de Phone Number [facility] [place] [place] [address] * Sedimentation rate (07/24/2015 11:17 AM EDT) Sedimentation Rate Automated 18 0 - 20 mm/hr [facility] Blood specimen (specimen) 07/24/2015 11:17 AM EDT 07/24/2015 11:34 AM EDT Narrative Resulting Agency Comment Spec In Lab Darryl Burgos MD HEMATOLOGY ORDERABLE S Performing Organization Address [facility] Co de Phone Number [facility] [place] [address] * (ABNORMAL) Comprehensive metabolic panel (non-fasting) (07/24/2015 11:17 AM EDT) Glucose 219(H) 65 - 199 mg/dL [facility] Comment:Diabetes: >=200 mg/d L plus symptoms Blood Urea Nitrogen 17 8 - 18 mg/dL [facility] Creatinine 0.97 0.70 - 1.20 mg/dL [facility] Comment: Please note that the pediatric reference intervals supplied above were not validated at [facility]. Results from pediatric patients should be interpreted in conjunction to the patient's age, height and muscle mass. Sodium 141 135 - 145 mmol/L [facility] Potassium 4.8 3.5 - 5.0 mmol/L [facility] Comment: Please note: ??Patients with WBC >100,000 may have falsely elevated Potassium levels. ??For accurate Potassium quantification in these patients send serum separator tube (gold top) for subsequent determinations. ??Contact the Clinical Chemistry Laboratory if there are any questions. Chloride 101 98 - 107 mmol/L [facility] Carbon Dioxide 31 22 - 31 mmol/L [facility] Anion Gap 9 5 - 15 mmol/L [facility] Calcium 9.2 8.5 - 10.5 mg/dL [facility] Protein, Total 7.1 6.1 - 8.0 gm/dL [facility] Albumin 4.0 3.2 - 5.2 gm/dL [facility] Aspartate Aminotransferase 18 0 - 30 unit/L [facility] Alanine Aminotransferase 14 0 - 30 unit/L [facility] Alkaline Phosphatase 69 40 - 104 unit/L [facility] Bilirubin, Total 0.5 0.2 - 1.3 mg/dL [facility] Bilirubin, Direct 0.1 0.0 - 0.3 mg/dL [facility] Est Glomerular Filtration Rate 59(L) >=60 [facility] Comment: This estimated GFR [...] the following links into your internet browser. http://Dromadaire.com/DHnkdep http://Dromadaire.com/DHMCnkf Blood specimen (specimen) 07/24/2015 11:17 AM EDT 07/24/2015 11:34 AM EDT Narrative Resulting Agency Comment Spec In Lab Darryl Burgos MD CHEMISTRY ORDERABLES Performing Organization Address City/State/[facility] Co de Phone Number [facility] [place] [address] documented in this encounter Visit Diagnoses Diagnosis Psoriatic arthritis Psoriatic arthropathy Other specified hypothyroidism Vitamin D deficiency Unspecified vitamin D deficiency Diabetes mellitus type 2, uncontrolled Type II or unspecified type diabetes mellitus without mention of complication, uncontrolled documented in this encounter Care Teams Assignment Clerk Relationship Specialty Start Date End Date Nayla Miramontes MD [address] [place] [address] PCP - General 05/21/11 2 documented as of this encounter
--- OUTSIDE RECORDS SUMMARY | 2024-03-07 19:00 | XMS_ITS | Encounter Summary ---
Author Organization [facility] Address [facility] [place] [address] Care Team Providers Care Bag Making Machine Tender Name Role Phone Nayla Miramontes MD Primary Care Provider [phone] Reason for Visit * Reason Comments Follow-up Encounter Details Date Type Department Care Team (Late st Contact Info) Description 04/30/2015 11:00 AM EST [place] [address] Darryl Burgos MD [facility] [place] [address] Psoriasis; Psoriatic arthritis Social History Tobacco Use [...] Sign Reading Time Taken Comments Blood Pressure 115/64 04/30/2015 10:54 AM EST Pulse 78 04/30/2015 10:54 AM EST Temperature 36.9 ??C (98.5 ??F) 04/30/2015 10:[address] Respiratory Rate - - Oxygen Saturation 99% 04/30/2015 10:54 AM EST Inhaled Oxygen Concentration - - Weight 94.8 kg (209 lb) 04/30/2015 10:54 AM EST Height 167.6 cm (5' 6) 04/30/2015 10:54 AM EST Body Mass Index 33.73 04/30/2015 10:54 AM EST documented in this encounter Patient Instructions * Patient Instructions* Darryl Burgos MD - 04/30/2015 8:33 PM EST 1) Resume every other week Humira, 40 mg. 2) Resume twice daily Celebrex. 3) Discontinue Neurontin and Flexeril. 4) Return to follow up in three months. documented in this encounter Progress Notes * Darryl Burgos MD - 04/30/2015 11:13 AM EST REASON FOR VISIT: Follow up for psoriatic arthritis and psoriasis. INTERVAL HISTORY: The pt was a 59-year-old female, who returned for a follow up of psoriatic arthritis and psoriasis. The pt noted that since her last visit on Nov 30, 2013, she was no longer on adalimumab and Celebrex for immunosuppression of her psoriatic arthritis and psoriasis. She had some issues withshipping of adalimumab to her, resulting in discontinuation of her adalimumab shipments. She was also no longer on Celebrex after she ran out of her last script. She felt that her overall neck pain, back pain, and joint pain had deteriorated significantly since she was off adalimumab and Celebrex. She was currently on bedtime Flexeril, 10 mg and daytime Flexeril, 5 mg for symptomatic control of he r muscle spasms. Otherwise, she had no fever, chest pain, dyspnea, dysuria, headache, easy bruising, rash, or polydipsia. She did complain of a multitude of gastrointestinal symptoms due to diabetic gastroparesis and chronic constipation. She was evaluated at the Neurology Clinic at [facility] for her memory deficit on Feb 09, 2014, and it was thought that her memory deficit was likely caused by multiple factors, including Flexeril and Neurontin use. PAST MEDICAL HISTORY: Psoriatic arthritis Psoriasis Diabetes [...] family. 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 She was currently applying for disability. FAMILY HISTORY: ?Mother - Hypertension, hyperlipidemia, hypothyroidism; of cardiac aneurysm at the age of 48. Father - Stroke x two; of a brain tumor at the age of 82. ? PHYSICAL EXAMINATION: Vitals 04/30/2015 SYSTOLIC 115 DIASTOLIC 64 PULSE 78 TEMPERATURE 98.5 Height (Martiniquais) 5' 6 Height (Metric) 167.6 cm Weight (Martiniquais) 209 lbs Weight (Metric) 94.802 kg BODY MASS INDEX 33.75 kg/m2 Pulse Oximetry 99 General - Alert, [...] Abdomen - Soft, non-tender, non-distended, bowel sound present. Back - Erect, FROM; + diffuse lumbosacral [...] 5th finger; no clubbing, cyanosis, or edema. Skin - Smooth and intact, + dysmorphic toe nails, + mild psoriatic lesions on both forearms; no telangiectasia on skin or at all nail margins, sclerodactyly, or bruises. Neuro - + Left eye blind; no motor function deficit. Psych - Normal affect. IMPRESSION : 1) Psoriatic arthritis and 2) psoriasis in a 59-year-old female. The pt's psoriatic arthritis and psoriasis was under poor control since she discontinued adalimumab and Celebrex. She previously failed methotrexate due to inadequate efficacy and worsening nausea. The pt will resume every other week adalimumab injection and twice daily Celebrex for immunosuppression. 3) Right knee osteoarthritis and instability. The pt's right knee pain and instability is related to osteoarthritis and multiple structural defects. She will be considered for a orthopedic consult after she optimizes immunosuppressive therapy for her psoriatic arthritis. Meanwhile, she will focus on symptomatic pain control with Celebrex. 4) Severe leftward lumbar scoliosis at L2-L3 (26 degrees). The pt's severe back pain is related to both severe leftward lumbar scoliosis at L2-L3 (26 degrees) and inflammatory back disease. She will focus on symptomatic control with Celebrex for now. She will also need to resume adalimumab for immunosuppression. 5) Frontotemporal and subcortical systems dysfunction. The pt was noted to have severe deficits in her memory, attention, executive function, and motor skills, suggestive of frontotemporal and subcortical systems dysfunction by neuropsychiatric evaluation. She will discontinue Flexeril and Neurontin per neurology recommendation. RECOMMENDATIONS: 1) Resume every other week Humira, 40 mg. 2) Resume twice daily Celebrex. 3) Discontinue Neurontin and Flexeril. 4) Return to follow up in three months. ? Darryl Burgos MD, PhD documented in this encounter Plan of Treatment Upcoming Encounters Date Type Department Care Team (Late st Contact Info) Description 05/17/2024 2:30 PM EST Office Visit Gastroenterology at [place] [phone] Alcides Bonilla MD [facility] [place] [address] 04/06/2049 9:00 AM EST Hospital Encounter Gastroenterology at [place] [phone] Harry Guerrero MD [facility] [place] [address] documented as of this encounter Visit Diagnoses Diagnosis Psoriasis Other psoriasis Psoriatic arthritis Psoriatic arthropathy documented in this encounter Care Teams Bag Making Machine Tender Relationship Specialty Start Date End Date Nayla Miramontes MD [address] [facility] [address] [place] [address] PCP - General 05/21/11 05/10/21 documented as of this encounter
--- OUTSIDE RECORDS SUMMARY | 2024-03-07 19:00 | XMS_ITS | Encounter Summary ---
Author Organization Formerly [facility] [place] [address] Care Team Providers Care Treatment Manager Name Role Phone Nayla Miramontes MD Primary Care Provider [phone] Reason for Visit * Reason Comments Follow-up Encounter Details Date Type Department Care Team (Late st Contact Info) Description 10/30/2015 9:40 AM EDT [place] [address] Darryl Burgos MD [facility] [place] [address] Psoriatic arthritis; Vitamin D deficiency; Other specified hypothyroidism; Diabetes mellitus type 2, uncomplicated; Gastroesophageal reflux disease without esophagitis Social History Tobacco Use Types Packs/Day [...] Sign Reading Time Taken Comments Blood Pressure 106/40 10/30/2015 9:35 AM EDT Pulse 67 10/30/2015 9:35 AM EDT Temperature 36.8 ??C (98.3 ??F) 10/30/2015 9:35 AM ED T Respiratory Rate 18 10/30/2015 9:35 AM EDT Oxygen Saturation 94% 10/30/2015 9:35 AM EDT Inhaled Oxygen Concentration - - Weight 94.8 kg (209 lb) 10/30/2015 9:35 AM EDT Height 167.6 cm (5' 6) 10/30/2015 9:35 AM EDT Body Mass Index 33.73 10/30/2015 9:35 AM EDT documented in this encounter Patient Instructions * Patient Instructions* Darryl Burgos MD - 10/30/2015 9:40 AM EDT 1) Continue every other week Humira, 40 mg. ?? 2) Continue twice daily Celebrex. ?? 3) Check labs today. 4) Return to follow up in three months. ?? documented in this encounter Progress Notes * Darryl Burgos MD - 10/30/2015 9:40 AM EDT REASON FOR VISIT: Follow up for psoriatic arthritis and psoriasis. ? INTERVAL HISTORY: ?? The pt was a 60-year-old female, who returned for a follow up of psoriatic arthritis and psoriasis. The pt noted that since her last visit on July 24, 2015, she had resumed every other week adalimumab for immunosuppression of her psoriatic arthritis and psoriasis. She felt that her overall neck pain, back pain, and joint pain had improved somewhat after she resumed adalimumab. Overall,the joint pain remained worst in her knees. The intra-articular joint injection of both knees with corticosteroid that she received after her last visit provided limited relief. Otherwise, she had chest pain, dyspnea, dysuria, headache, easy bruising, rash, or polydipsia. She did complain of diarrhea for the past five days, acid reflux, and chronic fatigue. ?? PAST MEDICAL HISTORY: ?? Psoriatic arthritis [...] with her family. 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 She was currently applying for disability. ? FAMILY HISTORY: ?? ?Mother - Hypertension, hyperlipidemia, hypothyroidism; of cardiac aneurysm at the age of 48. ?? Father - Stroke x two; of a brain tumor at the age of 82. ?? ? PHYSICAL EXAMINATION: ?? Vitals 10/30/2015 SYSTOLIC 106 DIASTOLIC 40 PULSE 67 TEMPERATURE 98.3 RESPIRATIONS 18 Height (Cypriot) 5' 6 Height (Metric) 167.6 cm Weight (Cypriot) 209 lbs Weight (Metric) 94.802 kg BODY MASS INDEX 33.73 kg/m2 Pulse Oximetry 94 General - Alert, co-operative, no apparent distress, [...] no motor function deficit. ?? Psych - Normal affect. ?? IMPRESSION : ?? 1) Psoriatic arthritis and 2) psoriasis in a 60-year-old female. The pt's psoriatic arthritis and psoriasis was under poor control when she was off adalimumab and Celebrex. She previously failed methotrexate due to inadequate efficacy and worsening nausea. The pt will continue every otherweek adalimumab injection and twice daily Celebrex for immunosuppression for now. She will be considered to increase the dose of adalimumab. She will check labs today. ?? 3) Severe leftward lumbar scoliosis at L2-L3 (26 degrees). The pt's back pain is related to both severe leftward lumbar scoliosis at L2-L3 (26 degrees) and inflammatory back disease. She will focus on symptomatic control with Celebrex for now. She will also need to resume adalimumab for immunosuppression. 4) GI symptoms. The pt has a history of multiple GI symptoms. She will undergo laboratory studies today. Treatment will focus on optimizing medical treatment for her underlying conditions, including diabetes mellitus I and hypothyroidism, etc. ?? RECOMMENDATIONS: ?? 1) Continue every other week Humira, 40 mg. ?? 2) Continue twice daily Celebrex. ?? 3) Check labs today. 4) Return to follow up in three months. ? Darryl Burgos MD, PhD documented in this encounter Plan of Treatment Upcoming Encounters Date Type Department Care Team (Late st Contact Info) Description 05/17/2024 2:30 PM EST [place] [address] Alcides Bonilla MD [facility] [place] [address] 04/06/2049 9:00 AM EST Hospital [place] [id number] Harry Guerrero MD [facility] [place]STROENTER[place] [address] documented as of this encounter Procedures Procedure Name Priority Date/Time Associated Diagnosis Comments URINALYSIS WITH REFLEX CULTURE Routine 10/30/2015 11:14 AM EDT Psoriatic arthritis URINE CULTURE Routine 10/30/2015 11:14 AM EDT HEMOGRAM Routine 10/30/2015 10:39 AM EDT Psoriatic arthritis DIFFERENTIAL, AUTOMATED Routine 10/30/2015 10:39 AM EDT Psoriatic arthritis VITAMIN D, 25-HYDROXY Routine 10/30/2015 10:39 AM EDT Vitamin D deficiency SEDIMENTATION RATE Routine 10/30/2015 10 :39 AM EDT Psoriatic arthritis CBC (WITH DIFF) Routine 10/30/2015 10:39 AM EDT Psoriatic arthritis H. PYLORI ANTIBODY, IGG Routine 10/30/2015 10:39 AM EDT Gastroesophageal reflux disease without esophagitis CRP, CARDIAC RISK (HS CRP) Routine 10/30/2015 10:39 AM EDT Psoriatic arthritis TSH Routine 10/30/2015 10:39 AM EDT Other specified hypothyroidism HEMOGLOBIN A1C Routine 10/30/2015 10:39 AM EDT Diabetes mellitus type 2, uncomplicated COMPREHENSIVE METABOLIC PANEL Routine 10/30/2015 10:39 AM EDT Psoriatic arthritis documented in this encounter Results * (ABNORMAL) Urine culture (10/30/2015 11:14 AM EDT) Urine Culture 10,000-49,000 cfu/ml mixed mucosal vania Note: Culture shows multiple bacterial species suggesting mucosal contamination. If symptoms continue to indicate urinary tract infection, submit a new specimen. (A) [facility] Urine specimen obtained by clean catch procedure (specimen) 10/30/2015 11:14 AM EDT 10/30/2015 12:23 PM EDT Narrative Resulting Agency Comment Spec In Lab Darryl Burgos MD MICROBIOLOGY - GENER AL ORDERABLES [facility] [place] [address] * (ABNORMAL) Urinalysis with reflex Culture (10/30/2015 11:14 AM EDT) Glucose, Urine Dipstick Negative Negative mg/dL [facility] Protein, Urine Dipstick Negative Negative mg/dL [facility] Bilirubin, Urine Dipstick Negative Negative mg/dL [facility] Comment: Clinical correlation required for positive Urine Bilirubin results as false positive may occur with some drugs and drug related products. If a false positive is suspected a serum total bilirubin should be considered if clinically indicated. Urobilinogen, Urine Dipstick Normal Normal mg/dL [facility] pH, Urn (dipstick) 5.0 5.0 - 8.0 [facility] Blood, Urine Dipstick Negative Negative mg/dL [facility] Ketone, Urine Dipstick Negative Negative mg/dL [facility] Nitrite, Urine Dipstick Negative Negative [facility] Leukocytes, Urine Dipstick Large(A) Negative [facility] Appearance, Urine Dipstick Hazy(A) Clear [facility] Specific [place] Urine Automated 1.018 1.002 - 1.030 [facility] Color, Urine Dipstick Yellow Yellow [facility] RBC, Urine <1 0 - 4 /HPF [facility] WBC, Urine 1 0 - 5 /HPF [facility] Bacteria, Urine Rare(A) None /HPF [facility] Squamous Epithelial Cells, Urine 3 <=4 /HPF [facility] Reflex to Culture Yes [facility] Urine specimen obtained by clean catch procedure (specimen) 10/30/2015 11:14 AM EDT 10/30/2015 11:28 AM EDT Narrative Resulting Agency Comment Spec In Lab Darryl Burgos MD URINE ORDERABLES [facility] [place] [address] * Differential, Automated (10/30/2015 10:39 AM EDT) Pathologist [facility] Neutrophil % 47.4 % [facility] Neutrophil Absolute 2.16 1.50 - 6.30 x10(3)/[facility] [place] [facility] Lymph % 39.0 % [facility] Lymphocytes Abs 1.8 1.0 - 3.6 x10(3)/[facility] Monocyte % 7.9 % [facility] Monocyte Abs 0.4 0.2 - 1.0 x10(3)/[facility] Eos % 4.6 % [facility] Eosinophils Abs 0.2 0.0 - 0.5 x10(3)/[facility] Basophil % 0.9 % [facility] Baso Absolute 0.0 0.0 - 0.2 x10(3)/[facility] Immature Gran % 0.20 % [facility] Comment: Immature granulocytes(IG's)percentage and absolute count will include metamyelocytes, myelocytes, and promyelocytes. Blood smears from CBCs yielding IG's will be scanned manually for concordance. If this scan disagrees with the automated IG or if promyelocytes are noted, a manual differential will be performed. Immature Gran Absolute 0.01 0.00 - 0.05 x10(3)/[facility] [place] [facility] Blood specimen (specimen) 10/30/2015 10:39 AM EDT 10/30/2015 10:47 AM EDT Narrative Resulting Agency Comment Spec In Lab Darryl Burgos MD HEMATOLOGY ORDERABLE S [facility] [place] [address] * (ABNORMAL) Hemogram (10/30/2015 10:39 AM EDT) [facility] White Blood Cell 4.6 4.0 - 10.0 x10(3)/ L [facility] Red Blood Cell 4.35 3.93 - 5.22 x10(6)/ L [facility] Hemoglobin 10.2(L) 11.2 - 15.7 gm/dL [facility] Hematocrit 33.8(L) 34.0 - 45.0 % [facility] Mean Cell Volume 77.7(L) 79.0 - 94.0 fL [facility] Mean Cell Hemoglobin 23.4(L) 26.6 - 32.2 pg [facility] Mean Cell Hemoglobin Concentration 30.2(L) 32.0 - 36.5 gm/dL [facility] Platelet 331 145 - 370 x10(3)/[facility] RDW Standard Deviation 41.7 35.0 - 46.0 fL [facility] RDW coefficient of variation 14.9(H) 10.9 - 14.4 % [facility] Mean Platelet Volume 9.8 9.0 - 12.0 fL [facility] NRBC% auto 0.0 % [facility] NRBC Absolute 0.000 0.000 - 0.012 x10(3)/[facility] Blood specimen (specimen) 10/30/2015 10:39 AM EDT 10/30/2015 10:47 AM EDT Narrative Resulting Agency Comment Spec In Lab Darryl Burgos MD HEMATOLOGY ORDERABLE S [facility] [place] [address] * H. pylori Antibody, IgG (10/30/2015 10:39 AM EDT) H pylori Ab Neg Neg [facility] Blood specimen (specimen) 10/30/2015 10:39 AM EDT 10/30/2015 1:59 PM EDT Narrative Resulting Agency Comment Spec In Lab Darryl Burgos MD IMMUNOLOGY ORDERABLE S [facility] [place] [address] * (ABNORMAL) Hemoglobin A1c (10/30/2015 10:39 AM EDT) Hemoglobin A1c 10.2(H) 4.3 - 5.6 % [facility] Comment: Reference Range: 4.3 - 5.6% 5.7 - 6.4% - Increased Risk of Developing Diabetes Mellitus >=6.5% - Consistent with diagnosis of Diabetes Mellitus In the absence of hyperglycemia (i.e. plasma glucose > 200 mg/dL) or classic symptoms of hyperglycemia a repeat measurement of HbA1c should be performed on a separate sample to confirm the diagnosis. Diagnosis and Classification of Diabetes Mellitus, Diabetes Care 2013; 36: Suppl. 1, S67-11 Estimated Average Glucose 246 mg/dL [facility] Comment: eAG equivalents for HbA1c percentages: HbA1c(%) ?eAG(mg/dL) 6.0 ?126 6.5 ?140 7.0 ?154 7.5 ?169 8.0 ?183 8.5 ?197 9.0 ?212 9.5 ?226 10.0 ? 240 Limitations: The eAG calculation has not been validated on women, individuals below 18 years old and above 70 years old, and individuals with hemoglobinopathies. Additional resources are available on the ADA website: [email or web address] Rich MCDANIEL, Brenda Ramirez, Wallace R, et al. ??Translating the A1C assay into estimated average glucose values. ??Diabetes Care 2008:31(8):7856-0846. Blood specimen (specimen) 10/30/2015 10:39 AM EDT 10/30/2015 10:47 AM EDT Narrative Resulting Agency Comment Spec In Lab Darryl Burgos MD CHEMISTRY ORDERABLES Performing Organization Address [facility] Co de Phone Number [facility] [place] [address] * High Sensitivity CRP (10/30/2015 10:39 AM EDT) C-Reactive Protein High Sensitivity 1.6 mg/L [facility] Comment: Interpretations: 1) For accurate [...] prevention. ??Circulation 2003; 107:363-369 Blood specimen (specimen) 10/30/2015 10:39 AM EDT 10/30/2015 10:47 AM EDT Narrative Resulting Agency Comment Spec In Lab Darryl Burgos MD CHEMISTRY ORDERABLES Performing Organization Address [facility] Co de Phone Number [facility] [place] [address] * TSH (10/30/2015 10:39 AM EDT) Thyroid Stimulating Hormone 2.63 0.27 - 4.20 mcIU/mL [facility] Blood specimen (specimen) 10/30/2015 10:39 AM EDT 10/30/2015 10:47 AM EDT Narrative Resulting Agency Comment Spec In Lab Darryl Burgos MD CHEMISTRY ORDERABLES Performing Organization Address City/[facility]/ZIP Co de Phone Number [facility] [place] [address] * (ABNORMAL) VIT D Total Evaluation (10/30/2015 10:39 AM EDT) Vitamin D Total 25 OH 28(L) 30 - 100 ng/mL [facility] Comment: Deficient <10 ng/mL Insufficient 10 to 29 ng/mL Sufficient 30 to 100 ng/mL Potential Intoxication >100 ng/mL According to the [place] National Osteoporosis Foundation, Vitamin D concentrations >30 ng/mL are sufficient to protect bone health. ??The National Kidney Foundation has similarly stated that patients with Vitamin D concentrations <30ng/mL should be considered to be insufficient or deficient. [email or web address] CITYnatlkidneyfoundation [email or web address] The [employer] iSYS Vitamin D Immunoassay detects both 25-OH Vitamin D2 and 25-OH Vitamin D3, but only a total Vitamin D concentration is reported. Blood specimen (specimen) 10/30/2015 10:39 AM EDT 10/30/2015 10:47 AM EDT Narrative Resulting Agency Comment Spec In Lab Darryl Burgos MD CHEMISTRY ORDERABLES Performing Organization Address City/[facility]/ZIP Co de Phone Number [facility] [place] [address] * Sedimentation rate (10/30/2015 10:39 AM EDT) Sedimentation Rate Automated 11 0 - 20 mm/hr [facility] Blood specimen (specimen) 10/30/2015 10:39 AM EDT 10/30/2015 10:47 AM EDT Narrative Resulting Agency Comment Spec In Lab Darryl Burgos MD HEMATOLOGY ORDERABLE S [facility] [place] [address] * (ABNORMAL) Comprehensive metabolic panel (non-fasting) (10/30/2015 10:39 AM EDT) Glucose 196 65 - 199 mg/dL [facility] Comment:Diabetes: >=200 mg/d L plus symptoms Blood Urea Nitrogen 14 8 - 18 mg/dL [facility] Creatinine 0.72 0.70 - 1.20 mg/dL [facility] Comment: Please note that the pediatric reference intervals supplied above were not validated at [facility]. Results from pediatric patients should be interpreted in conjunction to the patient's age, height and muscle mass. Sodium 139 135 - 145 mmol/L [facility] Potassium 4.7 3.5 - 5.0 mmol/L [facility] Comment: Please note: ??Patients with WBC >100,000 may have falsely elevated Potassium levels. ??For accurate Potassium quantification in these patients send serum separator tube (gold top) for subsequent determinations. ??Contact the Clinical Chemistry Laboratory if there are any questions. Chloride 100 98 - 107 mmol/L [facility] Carbon Dioxide 27 22 - 31 mmol/L [facility] Anion Gap 12 5 - 15 mmol/L [facility] Calcium 8.8 8.5 - 10.5 mg/dL [facility] Protein, Total 6.7 6.1 - 8.0 gm/dL [facility] Albumin 3.9 3.2 - 5.2 gm/dL [facility] Aspartate Aminotransferase 28 0 - 30 unit/L [facility] Alanine Aminotransferase 40(H) 0 - 30 unit/L [facility] Alkaline Phosphatase 61 40 - 104 unit/L [facility] Bilirubin, Total 0.5 0.2 - 1.3 mg/dL [facility] Bilirubin, Direct 0.1 0.0 - 0.3 mg/dL [facility] Est Glomerular Filtration Rate >60 >=60 [facility] Comment: This estimated GFR (eGFR) [...] the following links into your internet browser. [email or web address] [email or web address] Blood specimen (specimen) 10/30/2015 10:39 AM EDT 10/30/2015 10:47 AM EDT Narrative Resulting Agency Comment Spec In Lab Darryl Burgos MD CHEMISTRY ORDERABLES Performing Organization Address City/State/[facility] Co de Phone Number [facility] [place] [phone] documented in this encounter Visit Diagnoses Diagnosis Psoriatic arthritis Psoriatic arthropathy Vitamin D deficiency Unspecified vitamin D deficiency Other specified hypothyroidism Diabetes mellitus type 2, uncomplicated Type II or unspecified type diabetes mellitus without mention of complication, not stated as uncontrolled Gastroesophageal reflux disease without esophagitis Esophageal reflux documented in this encounter Care Teams Treatment Manager Relationship Specialty Start Date End Date Nayla Miramontes MD Jale[address] [place] [address] PCP - General 05/21/11 05/10/21 documented as of this encounter
--- OUTSIDE RECORDS SUMMARY | 2024-03-07 19:00 | XMS_ITS | Encounter Summary ---
Author Organization [facility] [place] [address] Care Team Providers Care Supervisor Fur Dressing Name Role Phone Nayla Miramontes MD Primary Care Provider [phone] Reason for Visit * Auth/Cert - Closed Specialty Diagnoses / Procedures Referred By Franklin laird Referred To Contact Diagnoses Cataract Procedures PRO REMV CATARACT EXTRACAP,INSERT LENS CATARACT EXTRACTION, EXTRACAPSULAR, W/ LENS INSERTION Referral ID Status Reason Start Date Expiration Date Visits Re quested Visits Authorized [id number] Closed 1 1 Encounter Details Date Type Department Care Team (Latest Contact Info) Description 01/17/2015 10:47 AM EDT - 01/17/2015 1:07 PM EDT Hospital Encounter [place] [address] Alexis iVllalba MD [facility] [place] [address] Age-related nuclear cataract of right eye Discharge Disposition: Home Social History Tobacco Use [...] Sign Reading Time Taken Comments Blood Pressure 126/63 01/17/2015 12:46 PM EDT Pulse 75 01/17/2015 12:46 PM EDT Temperature 36.3 ??C (97.3 ??F) 01/17/2015 12:46 PM E DT Respiratory Rate 16 01/17/2015 12:46 PM EDT Oxygen Saturation 100% 01/17/2015 12:46 PM EDT Inhaled Oxygen Concentration - - Weight 95.3 kg (210 lb) 01/17/2015 10:59 AM EDT Height 167.6 cm (5' 6) 01/17/2015 10:59 AM EDT Body Mass Index 33.89 01/17/2015 10:59 AM EDT documented in this encounter Discharge Instructions * Discharge Instructions* Judy Salazar RN - 01/17/2015 10:49 AM EDT Home Care Instructions after Cataract Surgery Do not remove the eye patch or shield, unless instructed to do so. Take it easy today. Avoid strenuous activities. Bring your eye drops and the Eye Care Kit with you to each visit after your surgery. Resume all your regular medicines. It is normal to have a scratchy sensation or mild pain in your eye. If you develop vomiting or severe pain not relieved with medication please call. Your appointment with Dr. Villalba is in the Eye Clinic Desk 4B tomorrow. You may have received medication before and/or during your procedure, which affect your judgement and reaction time therefore for the next 24 hours: You may be unsteady on your feet, be careful on stairs. Do not smoke if you are alone. Do not drink alcoholic beverages. Do not drive or operate any type of machinery. Do not make important legal decisions. If you are having any problems or additional concerns or questions please call: [phone] 8am to5pm. After 5pm, please call [phone] and ask for opthalmology MD convenience store manager. documented in this encounter Medications at Time of Discharge Medication Sig Dispensed Refills Start Date End Date lisinopril (PRINIVIL;ZESTRIL) 20 mg Tablet Take 1 tablet by mouth daily. 30 tablet 12/08/2013 MULTI-VITAMIN ORAL Take 1 tablet by mouth daily. Reported on 05/26/2016 CELECOXIB (CELEBREX ORAL) Take by mouth. 05/14/2016 bethanechol (URECHOLINE) 10 mg Tablet Take 1 tablet by mouth 3 times daily. 90 tablet 3 11/15/2014 07/12/2015 trimethobenzamide (TIGAN) 300 mg CapsuleIndications: N&V (nausea and vomiting) Take 1 capsule by mouth 4 times daily as needed. 90 capsule 12 11/15/2014 02/11/2016 ondansetron (ZOFRAN-ODT) 8 mg Tablet, Rapid DissolveIndications :N&V (nausea and vomiting) Take 1 tablet by mouth every 8 hours as needed for Nausea. 20 tablet 11 11/15/2014 01/22/2024 esomeprazole (NEXIUM) 40 mg Capsule, Delayed Release(E.C.) Take 40 mg by mouth 2 times daily (before meals). 03/20/2015 lubiprostone (AMITIZA) 24 mcg CapsuleIndications: Slow transit constipation Take 1 capsule by mouth 2 times daily (with meals). 60 capsule 6 09/13/2014 04/17/2015 imipramine (TOFRANIL) 10 mg Tablet Take 1 tablet by mouth nightly. After one week, take one tablet twice per day and increase to three times per day if not too tiring. 90 tablet 1 08/22/2014 02/14/2016 Domperidone, Bulk, PowderIndications:G astroparesis 10 mg by Misc.(Non-Drug; Combo Route) route 3 times daily (before meals). 500 g 11 08/01/2014 07/24/2015 Diabetic Supplies, Miscellan. Misc Form faxed to [employer] for pump/diabetic supplies. 600 each 3 07/03/2014 05/22/2015 levothyroxine (SYNTHROID) 175 mcg Tablet Take 175 mcg by mouth daily. Takes 1 tablet 2 days/week 10/30/2015 busPIRone (BUSPAR) 5 mg Tablet Take 5 mg by mouth 2 times daily. 02/11/2016 Adalimumab (HUMIRA PEN) 40 mg/0.8 mL Pen Injector Kit Inject 0.8 mLs subcutaneously every 14 days. 3 kit 3 03/14/2014 04/30/2015 diphenhydrAMINE/alu minum-magnesium hydroxide/lidocaine (BMX) 1:1:1 Oral SuspensionIndicatio ns:Dysphagia Take 5-10 mLs by mouth 3 times daily as needed. 250 mL 2 02/09/2014 11/08/2015 escitalopram oxalate (LEXAPRO) 20 mg Tablet Take 60 mg by mouth daily. 02/11/2016 insulin lispro (HUMALOG) injection Inject 65 Units subcutaneously continuous. Via insulin pump 06/23/2017 gabapentin (NEURONTIN) 300 mg capsule Take 3 capsules by mouth nightly. Take 300 mg every morning and 600 mg at bedtime 180 capsule 3 10/25/2013 07/25/2015 bisacodyl (DULCOLAX) 10 mg suppositoryIndicati ons:Constipation Place 1 suppository rectally daily. 60 suppository 3 08/15/2013 03/20/2015 Diabetic Supplies, Miscellan. MiscIndications:Typ e I (juvenile type) diabetes mellitus without mention of complication, not stated as uncontrolled Inject 1 each subcutaneously 4 times daily. Faxed pump and supply order to [employer] at [phone]. Dx Code: 250.01 100 each 12 08/08/2013 12/20/2015 cyclobenzaprine (FLEXERIL) 5 mg tablet Take 5 mg in the morning and 10 mg at bedtime. 270 tablet 4 07/25/2013 07/25/2015 celecoxib (CELEBREX) 100 mg capsule Take 1 capsule by mouth 2 times daily. 120 capsule 3 02/23/2013 04/30/2015 levothyroxine (SYNTHROID) 150 mcg tablet Take 150 mcg by mouth. 5 times a week. 11/08/2015 tolterodine (DETROL) 2 mg tablet Take 2 mg by mouth 2 times daily. 05/16/2015 insulin glargine (LANTUS) 100 unit/mL vial injectionIndication s:type 1 diabetes mellitus Inject 18 Units subcutaneously daily. 1 vial = 10ml = 1,000 units Indications: Type 1 Diabetes Mellitus 10 mL 5 04/29/2011 01/23/2017 melatonin 3 mg Tab Take 9 mg by mouth nightly. 03/06/2017 documented as of this encounter H&P Notes * Alexis Villalba MD - 01/17/2015 12:05 PM EDT Roxann Baxter reports no new symptoms or other change in her health since her preoperative history and physical exam was performed less than 30 days ago. Her exam reveals no significant changes. She isbreathing comfortably, without cyanosis or use of accessory muscles. Vital signs are within acceptable parameters. The eyes are quiet without discharge or other signs of active infection. The sedation plan was reviewed with Roxann Baxter and she expressed understanding and agreement. * Alexis Villalba MD - 01/17/2015 12:04 PM EDT See H&P from Nayla Miramontes documented in this encounter Miscellaneous Notes * Op Note - Alexis Villalba MD - 01/17/2015 12:44 PM EDT Pre-op diagnosis: Nuclear sclerotic cataract, right eye Post-op diagnosis: Same Surgeon: Alexis Villalba MD Name of procedure: Phacoemulsification of cataract with posterior chamber intraocular lens implant,right eye Anesthesia: Subtenons retrobulbar block, IV sedation Description of procedure: The right eye was marked preoperatively. A latex-free procedure was performed. The patient was brought into the operating suite, positioned in the supine position, and the patient's identity was verified by the surgeon and operative team. Monitors were placed by the brush maker machine. Topical anaesthetic was placed in the right eye. The patient's right eye was prepped with Betadine, including a drop of Betadine in the cul-de-sac. The eye was draped in the usual fashion for intraocular surgery, isolating the eyelashes from the surgical field. An open wire lid speculum was placed. The operating microscope was positioned. A buttonhole incision was made in conjunctiva and tenons capsule in the inferonasal quadrant. Bleeders cauterized. Subtenons retrobulbar anesthesia was administered through a cannula with 2.5cc of 2%lidocaine mixed with 0.75% bupivicaine. Adequate anesthesia was obtained. A superior conjunctival peritomy was made, followed by gentle hemostasis with eraser-tip bipolar cautery. A half-thickness scleral groove incision was made 1mm posterior to the limbus. The eye was entered at the 95 degree meridian with a 2.4mm keratome. A limbal stab incision was made at 2:00. Aqueous was exchanged for Provisc. A continuous curvilinear capsulorhexis was made with a cystotome. Thelens was loosened with hydrodissection. Viscoat was instilled to coat the corneal endothelium. The nucleus was emulsified with the phacoemulsification handpiece in a olnjeu-qhy-mojfljr fashion. Residual cortical material was removed with the automated irrigation/aspiration unit. The posterior capsule was polished. The capsular bag was inflated with viscoelastic. An Lenny Model SN60WF posterior chamber lens with a 6mm acrylic optic was inspected and found to be without defects, placed in the [place] III principal gifts officer cartridge, and injected into the capsular bag without difficulty. The lens was secure and well-centered. Viscoelastic was thoroughly removed with the irrigation/aspiration handpiece.The anterior chamber was filled with BSS to normal intraocular pressure. The wounds were checked for leakage and there was none. Conjunctiva was closed with cautery. One drop of Vigamox, Cosopt, and Maxitrol ointment were instilled, followed by a patch and shield over the operated eye. The patient was taken to [facility] in stable condition. Lens: Lenny SN60WF +21.0 diopter PCIOL EBL <1cc Specimen Removed: None (cataract emulsified, not saved as specimen) Drains: None Surgical Closure: Primary Complications: None Attestation: I performed this procedure without the involvement of a resident. documented in this encounter Plan of Treatment Upcoming Encounters Date Type Department Care Team (Late st Contact Info) Description 05/17/2024 2:30 PM EST Office Visit [place] [address] Alcides Bonilla MD [facility] [place] [address] 04/06/2049 9:00 AM EST Hospital Encounter [place] [phone] Harry Guerrero MD [facility] [place] [address] documented as of this encounter Procedures Procedure Name Priority Date/Time Associated Diagnosis Comments CATARACT EXTRACTION, EXTRACAPSULAR, W/ LENS INSERTION (WRVU 7.35) 01/17/2015 12:17 PM EDT Age-related nuclear cataract of right eye documented in this encounter Visit Diagnoses Diagnosis Age-related nuclear cataract of right eye Senile nuclear sclerosis documented in this encounter Administered Medications Inactive Administered Medications - up to 3 most recent administrations Medication Order MAR Action Action Date Dose Rate Site cyclopentolate (CYCLODRYL) 1 % ophthalmic solution 1 drop 1 drop, Right Eye, EVERY 5 MIN, 3 doses, First dose on Thu01/17/15 at 1115, Last dose on Thu01/17/15 at 1125, 1 drop to the operative eye every 5 minutes times 3. Start day of surgery, Day of Surgery (Day of Procedure), Routine Given 01/17/2015 11:29 AM EDT 1 drop Given 01/17/2015 11:23 AM EDT 1 drop Given 01/17/2015 11:12 AM EDT 1 drop ketorolac tromethamine (ACULAR) 0.5 % ophthalmic solution 1 drop 1 drop, Right Eye, ONCE, 1 dose, On Thu01/17/15 at 1115, 1 drop to the operative eye once, start on day of surgery, Day of Surgery (Day of Procedure), Routine Given 01/17/2015 11:20 AM EDT 1 drop lactated ringers infusion 1,000 mL 1,000 mL, at 100 mL/hr, Intravenous, CONTINUOUS, Starting on Thu01/17/15 at 1115, Until Thu01/17/15 at 1251, Day of Surgery (Day of Procedure) New Bag 01/17/2015 11:44 AM EDT 1,000 mLs 100 mL/hr moxifloxacin (VIGAMOX) 0.5 % ophthalmic solution 1 drop 1 drop, Right Eye, EVERY 5 MIN, 3 doses, First dose on Thu01/17/15 at 1115, Last dose on Thu01/17/15 at 1125, 1 drop to the operative eye every 5 minutes times 3. Start on the day of surgery., Day of Surgery (Day of Procedure), Routine Given 01/17/2015 11:43 AM EDT 1 drop Given 01/17/2015 11:26 AM EDT 1 drop Given 01/17/2015 11:14 AM EDT 1 drop PHENYLephrine (MYDFRIN) 2.5 % ophthalmic solution 1 drop 1 drop, Right Eye, EVERY 5 MIN, 3 doses, First dose on Thu01/17/15 at 1115, Last dose on Thu01/17/15 at 1125, 1 drop to the operative eye every 5 minutes times 3. Start on the day of surgery., Day of Surgery (Day of Procedure), Routine Given 01/17/2015 11:28 AM EDT 1 drop Given 01/17/2015 11:19 AM EDT 1 drop Given 01/17/2015 11:11 AM EDT 1 drop prednisoLONE acetate (PRED FORTE) 1 % ophthalmic suspension 1 drop 1 drop, Right Eye, ONCE, 1 dose, On Thu01/17/15 at 1115, 1 drop to the operative eye once, start on day of surgery, Day of Surgery (Day of Procedure), Routine Given 01/17/2015 11:17 AM EDT 1 drop documented in this encounter Active and Recently Administered Medications Times are shown in EDT. Scheduled Medication Order 01/15/2015 01/16/2015 01/17/2015 cyclopentolate (CYCLODRYL) 1 % ophthalmic solution 1 drop () 1 drop, Right Eye, EVERY 5 MIN, 3 doses, First dose on Thu01/17/15 at 1115, Last dose on Thu01/17/15 at 1125, 1 drop to the operative eye every 5 minutes times 3. Start day of surgery, Day of Surgery (Day of Procedure), Routine 1112 (Given - Provid er: Judy Salazar RN)1123 (Given - Provider: Judy Salazar RN)1129 (Given - Provider: Judy Salazar, ELSA) ketorolac tromethamine (ACULAR) 0.5 % ophthalmic solution 1 drop (COMPLETED) 1 drop, Right Eye, ONCE, 1 dose, On Thu01/17/15 at 1115, 1 drop to the operative eye once, start on day of surgery, Day of Surgery (Day of Procedure), Routine 1120 (Given - Provid er: Judy Salazar RN) moxifloxacin (VIGAMOX) 0.5 % ophthalmic solution 1 drop (COMPLETED) 1 drop, Right Eye, EVERY 5 MIN, 3 doses, First dose on Thu01/17/15 at 1115, Last dose on Thu01/17/15 at 1125, 1 drop to the operative eye every 5 minutes times 3. Start on the day of surgery., Day of Surgery (Day of Procedure), Routine 1114 (Given - Provid er: Judy Salazar RN)1126 (Given - Provider: Judy Salazar RN)1143 (Given - Provider: Judy Salazar RN) PHENYLephrine (MYDFRIN) 2.5 % ophthalmic solution 1 drop (COMPLETED) 1 drop, Right Eye, EVERY 5 MIN, 3 doses, First dose on Thu01/17/15 at 1115, Last dose on Thu01/17/15 at 1125, 1 drop to the operative eye every 5 minutes times 3. Start on the day of surgery., Day of Surgery (Day of Procedure), Routine 1111 (Given - Provid er: Judy Salazar RN)1119 (Given - Provider: Judy Salazar RN)1128 (Given - Provider: Judy Salazar RN) prednisoLONE acetate (PRED FORTE) 1 % ophthalmic suspension 1 drop (COMPLETED) 1 drop, Right Eye, ONCE, 1 dose, On Thu01/17/15 at 1115, 1 drop to the operative eye once, start on day of surgery, Day of Surgery (Day of Procedure), Routine 1117 (Given - Provid er: Judy Salazar RN) Continuous Medication Order 01/15/2015 01/16/2015 01/17/2015 lactated ringers infusion 1,000 mL (CANCELED) 1,000 mL, at 100 mL/hr, Intravenous, CONTINUOUS, Starting on Thu01/17/15 at 1115, Until Thu01/17/15 at 1251, Day of Surgery (Day of Procedure) 1144 (New Bag - Prov ider: Judy Salazar RN) PRN Medication Order 01/15/2015 01/16/2015 01/17/2015 midazolam (PF) (VERSED) 1 mg/mL multi-dose injection 0.5-2 mg (CANCELED) 0.5-2 mg, Intravenous, EVERY 5 MIN PRN, Starting on Thu01/17/15 at 1049, Until 10/14/15 at 1251, Sleep, Anxiety, Hold for delirium/agitation. (Maximum dose 5 mg)., Intra-Operative (Intra-Procedure), Routine 1218 (Given - Provid er: Judy Salazar, ELSA)1222 (Given - Provider: Judy Salazar, ELSA)1225 (Given - Provider: Judy Salazar, ELSA) documented in this encounter Care Teams Supervisor Fur Dressing Relationship Specialty Start Date End Date Nayla Miramontes MD [facility] [address] [facility] [address] [place] [address] PCP - General 05/21/11 05/10/21 documented as of this encounter
--- OUTSIDE RECORDS SUMMARY | 2024-03-07 19:00 | XMS_ITS | Encounter Summary ---
[facility] [place] [address] Care Team Providers Care Bessemer Regulator Name Role Phone Nayla Miramontes MD Primary Care Provider [phone] Reason for Visit * Auth/Cert - Closed Specialty Diagnoses / Procedures Referred By Franklin laird Referred To Contact Diagnoses Cataract Procedures PRO REMV CATARACT EXTRACAP,INSERT LENS CATARACT EXTRACTION, EXTRACAPSULAR, W/ LENS INSERTION Referral ID Status Reason Start Date Expiration Date Visits Re quested Visits Authorized [id number] Closed 1 1 Encounter Details Date Type Department Care Team (Late st Contact Info) Description 01/17/2015 12:00 PM EDT - 01/17/2015 12:40 PM EDT Surgery Out[place] [address] Alexis Villalba MD [facility] [place] [address] CATARACT EXTRACTION, EXTRACAPSULAR, W/ LENS INSERTION (WRVU 7.35) Social History Tobacco Use Types Packs/Day Years [...] Sign Reading Time Taken Comments Blood Pressure 125/62 01/17/2015 12:38 PM EDT Pulse 74 01/17/2015 12:38 PM EDT Temperature 36.3 ??C (97.3 ??F) 01/17/2015 10:59 AM E DT Respiratory Rate 12 01/17/2015 12:38 PM EDT Oxygen Saturation 100% 01/17/2015 12:38 PM EDT Inhaled Oxygen Concentration - - [...] or additional concerns or questions please call: [phone] 8am to5pm. After 5pm, please call [phone] and ask for opthalmology MD convenience recycle center tech. documented in this encounter Medications at Time [...] Diabetic Supplies, Miscellan. Misc Form faxed to [employer] for pump/diabetic supplies. 600 each 3 07/03/2014 [...] daily. Faxed pump and supply order to [employer] at [phone]. Dx Code: 250.01 100 each 12 08/08/2013 [...] operative team. Monitors were placed by the roll examiner. Topical anaesthetic was placed in the right [...] emulsified with the phacoemulsification handpiece in a [id number] fashion. Residual cortical material was removed with the automated irrigation/aspiration unit. The posterior capsule was polished. The capsular bag was inflated with viscoelastic. An Lenny Model SN60WF posterior chamber lens with a 6mm acrylic optic was inspected and found to be without defects, placed in the [place] III day worker cartridge, and injected into the capsular bag [...] 2:30 PM EST Office [place] [address] Alcides Bonilla MD [facility] [place] [address] 04/06/2049 9:00 AM EST Hospital [place] [address] Harry Guerrero MD [facility] [place] [address] documented as of this encounter Procedures Procedure Name Priority Date/Time Associated Diagnosis Comments CATARACT EXTRACTION, EXTRACAPSULAR, W/ LENS INSERTION (WRVU 7.35) 01/17/2015 12:17 PM EDT Age-related nuclear cataract of right eye documented in this encounter Visit Diagnoses Diagnosis Age-related nuclear cataract of right eye Senile nuclear sclerosis Age-related nuclear cataract of right eye Senile [...] 11:44 AM EDT 1,000 mLs 100 mL/hr midazolam (PF) (VERSED) 1 mg/mL multi-dose injection 0.5-2 mg 0.5-2 mg, Intravenous, EVERY 5 MIN PRN, Starting on Thu01/17/15 at 1049, Until Thu01/17/15 at 1251, Sleep, Anxiety, Hold for delirium/agitation. (Maximum dose 5 mg)., Intra-Operative (Intra-Procedure), Routine Given 01/17/2015 12:25 PM EDT 0.5 mg Given 01/17/2015 12:22 PM EDT 0.5 mg Given 01/17/2015 12:18 PM EDT 1 mg moxifloxacin (VIGAMOX) 0.5 % ophthalmic solution 1 [...] Judy Salazar RN)1129 (Given - Provider: Judy Salazar RN) ketorolac tromethamine (ACULAR) 0.5 % ophthalmic solution [...] PRN, Starting on Thu01/17/15 at 1049, Until Thu01/17/15 at 1251, Sleep, Anxiety, Hold for delirium/agitation. (Maximum dose 5 mg)., Intra-Operative (Intra-Procedure), Routine 1218 (Given - Provid er: Judy Salazar RN)1222 (Given - Provider: Judy Salazar RN)1225 (Given - Provider: Judy Salazar RN) documented in this encounter Care Teams Bessemer Regulator Relationship Specialty Start Date End Date Nayla Miramontes MD [address] [place] [address] PCP - General 05/21/11 05/10/21 documented as of this encounter
--- OUTSIDE RECORDS SUMMARY | 2024-03-07 19:00 | XMS_ITS | Encounter Summary ---
Author Organization Formerly [facility], Later [facility] Address [facility] [place] [address] Care Team Providers Care Supervisor Advertising Dispatch Clerks Name Role Phone Nayla Miramontes MD Primary Care Provider [phone] Encounter Details Date Type Department Care Team (Latest Contact Info) Description 05/16/2015 1:45 PM EST Laboratory [place] [phone] Diabetes mellitus type 1, uncontrolled Social History [...] 2:30 PM EST Office [place] [phone] Alcides Bonilla MD [facility] [place] [address] 04/06/2049 9:00 AM EST Hospital Encounter [place] [phone] Harry Guerrero MD [facility] [place] [address] documented as of this encounter Procedures Procedure Name Priority Date/Time Associated Diagnosis Comments U ALBUMIN/CRE RATIO STAT 05/16/2015 2 :08 PM EST Diabetes mellitus type 1, uncontrolled CREATININE STAT 05/16/2015 1:35 PM EST Diabetes mellitus type 1, uncontrolled TSH STAT 05/16/2015 1:35 PM EST Diabetes mellitus type 1, uncontrolled T4, FREE STAT 05/16/2015 1:35 PM EST HDL/CHOL PROFILE STAT 05/16/2015 1:35 PM EST Diabetes mellitus type 1, uncontrolled HEMOGLOBIN A1C STAT 05/16/2015 1:35 PM EST Diabetes mellitus type 1, uncontrolled documented in this encounter Results * Microalbumin, urine, random (05/16/2015 2:08 PM EST) Creatinine, Urine 95 mg/dL CE RED MILLENNIUM Albumin, Urine <3.0 mg/L ISABEL Webber MILLENNIUM Albumin / Creatinin Ratio, Urine <3 mcg/mg Cr JOHN MILLENNIUM Comment: Reference Range* Random collection (mcg/mg creatinine) Normal ?<30 Microalbuminuria ?? 30 - 300 Clinical Albuminuria ?? >300 *[place] Diabetes Association. Diabetic Nephropathy. Diabetes Care 1997;(Suppl 1):S24-S27 Exercise within 24 hour, infection, fever, CHF, marked hyperglycemia, and marked hypertension may elevate urinary albumin excretion over baseline values. Urine specimen (specimen) 05/16/2015 2:08 PM EST 05/16/2015 2:14 PM EST Narrative Resulting Agency Comment Spec In Lab Radha Booker MD URINE ORDERABLES [facility] * T4, free (05/16/2015 1:35 PM EST) Free T4 1.01 0.93 - 1.70 ng/dL [facility] Blood specimen (specimen) Venous Draw / Unknown 05/16/2015 1:35 PM EST 05/16/2015 1:49 PM EST Narrative Resulting Agency Comment Spec In Lab Radha Booker MD CHEMISTRY ORDERAB LES Performing Organization Address [facility] Co de Phone Number JOHN WALLERBANNERKP * HDL/Cholesterol Profile (05/16/2015 1:35 PM EST) Cholesterol, Total 161 <=199 mg/dL [facility] Comment: Recommendations of the NCEP Adult Treatment Panel for the following risk cutoff thresholds for the [place] population: Desirable: <200 mg/dL Borderline High: 200-239 mg/dL High: > or = 240 mg/dL HDL Cholesterol 69 >=40 mg/dL [facility] SRIDHARBANNERIUM Comment: Reference range: ??Low HDL: ?? < 40 mg/dL ??Normal: ?40-60 mg/dL ??Desirable: > 60 mg/dL MARIANA 2001; 285(19):6363-8420 Cholesterol/HDL Ratio 2.3 ratio [facility] SR[facility] Comment: A Cholesterol to HDL ratio below 4:1 is desirable. ??Studies suggest that increased CAD risk occurs at ratios above 5 for females and above 6 for men. ? [place] Heart Association ??(http://www.americanheart.org) ? Uma Int Med, 1994; 121:641 ? AM J Med, 1998; 105(1A):48S Blood specimen (specimen) 05/16/2015 1:35 PM EST 05/16/2015 1:42 PM EST Narrative Resulting Agency Comment Spec In Lab Radha Booker MD CHEMISTRY ORDERAB LES Performing Organization Address [facility] Co de Phone Number JOHN DE LEON * (ABNORMAL) TSH (05/16/2015 1:35 PM EST) Thyroid Stimulating Hormone 16.77(H) 0.27 - 4.20 mcIU/mL CERNER MILLENNIUM Blood specimen (specimen) 05/16/2015 1:35 PM EST 05/16/2015 1:42 PM EST Narrative Resulting Agency Comment Spec In Lab Radha Booker MD CHEMISTRY ORDERAB LES Performing Organization Address [facility] de Phone Number [facility] * Creatinine (05/16/2015 1:35 PM EST) Creatinine 0.90 0.70 - 1.20 mg/dL [facility] Comment: Please note that the pediatric reference intervals supplied above were not validated at [facility]. Results from pediatric patients should be interpreted in conjunction to the patient's age, height and muscle mass. Est Glomerular Filtration Rate >60 >=60 [facility] Comment: This estimated GFR (eGFR) value was [...] the following links into your internet browser. [email or web address] Blood specimen (specimen) 05/16/2015 1:35 PM EST 05/16/2015 1:42 PM EST Narrative Resulting Agency Comment Spec In Lab Radha Booker MD CHEMISTRY ORDERAB LES Performing Organization Address [facility] Co de Phone Number [facility] * (ABNORMAL) Hemoglobin A1c (05/16/2015 1:35 PM EST) Hemoglobin A1c 9.4(H) 4.3 - 5.6 % [facility] Comment: Reference Range: 4.3 - 5.6% [...] 1, S67-74 Estimated Average Glucose 223 mg/dL [facility] Comment: eAG equivalents for HbA1c percentages: HbA1c(%) ?eAG(mg/dL) 6.0 ?126 6.5 ?140 7.0 ?154 7.5 ?169 8.0 ?183 8.5 ?197 9.0 ?212 9.5 ?226 10.0 ? 240 Limitations: The eAG calculation has not been validated on women, individuals below 18 years old and above 70 years old, and individuals with hemoglobinopathies. Additional resources are available on the ADA website: http://[email or web address] [email or web address] Rich MCDANIEL, Brenda J, Wallace R, et al. ??Translating the A1C assay into estimated average glucose values. ??Diabetes Care 2008:31(8):7907-6548. Blood specimen (specimen) 05/16/2015 1:35 PM EST 05/16/2015 1:42 PM EST Narrative Resulting Agency Comment Spec In Lab Radha Booker MD CHEMISTRY ORDERAB LES [facility] documented in this encounter Visit Diagnoses Diagnosis Diabetes mellitus type 1, uncontrolled Type I (juvenile type) diabetes mellitus without mention of complication, uncontrolled documented in this encounter Care Teams Supervisor Advertising Dispatch Clerks Relationship Specialty Start Date End Date Nayla Miramontes MD [address] [place] [address] PCP - General 05/21/11 2 documented as of this encounter
--- OUTSIDE RECORDS SUMMARY | 2024-03-07 19:00 | XMS_ITS | Encounter Summary ---
Author Organization [facility] Address [facility] [place] [address] Care Team Providers Care Die Barber Name Role Phone Nayla Miramontes MD Primary Care Provider [phone] Reason for Visit * Reason Comments Post Op 1 day ck s/p CE/IOL OD Encounter Details Date Type Department Care Team (Late st Contact Info) Description 01/18/2015 12:45 PM EDT Office [place] [address] Alexis Villalba MD [facility] [place] [address] S/P cataract extraction and insertion of intraocular lens, right Social History Tobacco Use Types Packs/Day Years [...] Progress Notes * Alexis Villalba MD - 01/18/2015 11:20 AM EDT Assessment/Plan: 1. 1 day s/p cataract surgery OD Doing well with a normal post operative appearance except microhyphema. - Prednisolone acetate 1% 3x/d in operative eye - Moxifloxicin 3x/d in operative eye - Ketorolac 3x/d in operative eye - cyclogyl 3/0 - Post op precaution sheet reviewed and given to patient - no bend/lift/strain 2. PCIOL OS Follow up: - 1 week DMM, sooner as needed. - Refract (prelim), dilate prn documented in this encounter Plan of Treatment Upcoming Encounters Date Type Department Care Team (Late st Contact Info) Description 05/17/2024 2:30 PM EST Office [place] [phone] Alcides Bonilla MD [facility] [place] [address] 04/06/2049 9:00 AM EST Hospital Encounter Gastroenterology at [place] [phone] Harry Guerrero MD [facility] [address] [place] [address] documented as of this encounter Visit Diagnoses Diagnosis S/P cataract extraction and insertion of intraocular lens, right documented in this encounter Care Teams Die Barber Relationship Specialty Start Date End Date Nayla Miramontes MD [address] [place] [address] PCP - General 05/21/11 05/10/21 documented as of this encounter
--- OUTSIDE RECORDS SUMMARY | 2024-03-07 19:00 | XMS_ITS | Encounter Summary ---
Author Organization [facility] Address [facility] [place] [address] Care Team Providers Care Electric Melt Operator Name Role Phone Nayal Miramontes MD Primary Care Provider [phone] Reason for Visit * Reason Comments Post Op 1 week s/p CE IOL OD Encounter Details Date Type Department Care Team (Late st Contact Info) Description 01/26/2015 1:15 PM EDT Office [place] [address] Alexis Villalba MD [facility] [place] [address] S/P cataract extraction and insertion of intraocular [...] Progress Notes * Alexis Villalba MD - 01/26/2015 12:56 PM EDT Assessment/Plan: 1. 1 week s/p CE/IOL OD Doing well with normal postop appearance except AC cells (RBCs) Stop Vigamox drops Continue prednisolone and ketorolac drops 3x/day for 2 weeks and d/c 2. PCIOL OS 3. IDDM with PDR s/p PRP Presumed activity with VH evident Recommend visit with Dr. Herrera Follow up: 1 month DMM, for final postop visit and glasses Rx documented in this encounter Plan of Treatment Upcoming Encounters Date Type Department Care Team (Late st Contact Info) Description 05/17/2024 2:30 PM EST Office Visit [place] [phone] Alcides Bonilla MD [facility] [place] [address] 04/06/2049 9:00 AM EST Hospital Encounter [place] [phone] Harry Guerrero MD [facility] [place] [address] documented as of this encounter Visit Diagnoses Diagnosis S/P cataract extraction and insertion of intraocular lens, right documented in this encounter Care Teams Electric Melt Operator Relationship Specialty Start Date End Date Nayla Miramontes MD [facility] [address] [place] [address] PCP - General 05/21/11 05/10/21 documented as of this encounter
--- OUTSIDE RECORDS SUMMARY | 2024-03-07 19:00 | XMS_ITS | Encounter Summary ---
[place] [address] Care Team Providers Care Ticket Collector Name Role Phone Nayla Miramontes MD Primary Care Provider [phone] Reason for Visit * Reason Onset Date Comments Prior Authorization 07/06/2015 Encounter Details Date Type Department Care Team (Late st Contact Info) Description 07/06/2015 Telephone [place] [address] Lluvia Dey CMA GASTROENTEROLOGY DEPT Prior Authorization [...] Telephone Encounter - Lluvia Dey CMA - 07/06/2015 10:27 AM EDT Medication Prior Authorization 4L Gastroenterology / [place] [address] Subscriber Insurance: [place] Medicaid Physician: Tamanna Nguyen Return Pharmacy: [facility] Telephone Fax ??[phone] Medication Requested: Linzess Strength: 145 mcg Frequency: Daily Disp.: 30 Refills: 6 Currently taking: yes Diagnosis for this medication: Chronic Constipation ICD-10 code: K59.00 Prior medications trialed in this patient: amitiza, dulcolax, benefiber Medication: Outcome/Adverse Reactions: treatment failure Decision: Medication approved from 3 months. Continued approvals are contingent upon a positive response to therapy. Documented in the medical notes pertaining to the response in therapy documented in this encounter Plan of Treatment Upcoming Encounters Date Type Department Care Team (Late st Contact Info) Description 05/17/2024 2:30 PM EST Office [place] [phone] Alcides Bonilla MD [facility] [place] [address] 04/06/2049 9:00 AM EST Hospital Encounter [place] [phone] Harry Guerrero MD [facility] [place] [address] documented as of this encounter Procedures Procedure Name Priority Date/Time Associated Diagnosis Comments GI SCAN Routine 08/14/2015 documented in this encounter Results * Scan Doc: GI (08/14/2015) Lluvia Dey CMA MEDIA MGR SCAN EXT O RDR/RSLT documented in this encounter Visit Diagnoses Not on filedocumented in this encounter Care Teams Ticket Collector Relationship Specialty Start Date End Date Nayla Miramontes MD [address] [place] [address] PCP - General 05/21/11 05/10/21 documented as of this encounter
--- OUTSIDE RECORDS SUMMARY | 2024-03-07 19:00 | XMS_ITS | Encounter Summary ---
[place] [address] Care Team Providers Care Printing Technician Name Role Phone Nayla Miramontes MD Primary Care Provider [phone] Reason for Visit * Reason Onset Date Comments Prior Authorization 08/08/2015 Encounter Details Date Type Department Care Team (Late st Contact Info) Description 08/08/2015 Telephone [place] [phone] Rachna Espinosa Prior Authorization Social History Tobacco Use Types [...] * Telephone Encounter - Rachna Espinosa - 08/08/2015 8:32 AM EDT Medication Prior Authorization TORRES Medication name/dose/directions: HUMIRA 40MG/0.8ML - INJ 0.8ML SUBQ EVERY 14 DAYS Rationale for request: PSORIAS/PSORIATIC ARTHRITIS Health plan: [place]ICAID Authorizing sales representative rural power name: SARATH/SARAN Faxed to health plan on: 08/08/15 Health plan decision: Quantity approved: Authorization number: Start date: End date: Patient notified? Pharmacy notified? documented in this encounter Plan of Treatment Upcoming Encounters Date Type Department Care Team (Late st Contact Info) Description 05/17/2024 2:30 PM EST Office Visit [place] [address] Alcides Bonilla MD [facility] [place] [address] 04/06/2049 9:00 AM EST Hospital Encounter [place] [phone] Harry Guerrero MD [facility] DR GASTROENTER[place] [address] documented as of this encounter Visit Diagnoses Not on filedocumented in this encounter Care Teams Printing Technician Relationship Specialty Start Date End Date Nayla Miramontes MD [facility] [address] [place] [address] PCP - General 05/21/11 05/10/21 documented as of this encounter
--- OUTSIDE RECORDS SUMMARY | 2024-03-07 19:00 | XMS_ITS | Encounter Summary ---
Author Organization [facility] [place] [address] Care Team Providers Care Estimating Manager Name Role Phone Nayla Miramontes MD Primary Care Provider [phone] Encounter Details Date Type Department Care Team (Late st Contact Info) Description 08/09/2015 Tele[place] [phone] Jaye Sanchez Social History Tobacco Use Types [...] * Telephone Encounter - Jaye Sanchez - 08/14/2015 3:38 PM EDT Humira 40mg /0.8mL approved by [place] Medicaid from 08/13/2015 to 08/12/2016. PA# [id number] * Telephone Encounter - Jaye Sanchez - 08/09/2015 2:06 PM EDT PA [facility] to [employer] [employer] 08/08/15. documented in this encounter Plan of Treatment Upcoming Encounters Date Type Department Care Team (Late st Contact Info) Description 05/17/2024 2:30 PM EST Office [place] [phone] Alcides Bonilla MD [facility] [place] [address] 04/06/2049 9:00 AM EST Hospital Encounter [place] [phone] Harry Guerrero MD [facility] [place] [address] documented as of this encounter Visit Diagnoses Not on filedocumented in this encounter Care Teams Estimating Manager Relationship Specialty Start Date End Date Nayla Miramontes MD [facility] [address] [facility] [address] [place] [address] PCP - General 05/21/11 05/10/21 documented as of this encounter
--- OUTSIDE RECORDS SUMMARY | 2024-03-07 19:00 | XMS_ITS | Encounter Summary ---
Author Organization [facility] [place] [address] Care Team Providers Care Manager Industrial Name Role Phone Nayla Miramontes MD Primary Care Provider [phone] Encounter Details Date Type Department Care Team (Late st Contact Info) Description 04/17/2015 Orders Only [place] [phone] Tamanna Nguyen APRN [facility] [place] [address] Chronic constipation Social History Tobacco Use Types [...] 2:30 PM EST Office Visit [place] [phone] Alcides Bonilla MD [facility] [place] [address] 04/06/2049 9:00 AM EST Hospital Encounter [place] [address] Harry Guerrero MD [facility] DR GASTROENTEROLOG[place] [address] documented as of this encounter Visit Diagnoses Diagnosis Chronic constipation Unspecified constipation documented in this encounter Care Teams Manager Industrial Relationship Specialty Start Date End Date Nayla Miramontes MD [facility] [address] [place] [address] PCP - General 05/21/11 05/10/21 documented as of this encounter
--- OUTSIDE RECORDS SUMMARY | 2024-03-07 19:00 | XMS_ITS | Encounter Summary ---
Author Organization [facility] [address] Care Team Providers Care Car Body Mechanic Name Role Phone Nayla Miramontes MD Primary Care Provider [phone] Encounter Details Date Type Department Care Team (Late Contact Info) Description 10/11/2015 Telephone [place] [address] aThira Villanueva, RN Social History Tobacco Use Types [...] Telephone Encounter - Tahira Villanueva RN - 10/23/2015 4:02 PM EDT Error documented in this encounter Plan of Treatment Upcoming Encounters Date Type Department Care Team (Late Contact Info) Description 05/17/2024 2:30 PM EST Office [place] [phone] Alcides Bonilla MD [facility] [place] [address] 04/06/2049 9:00 AM EST Hospital Encounter [place] [address] Harry Guerrero MD [facility] [place] [address] documented as of this encounter Visit Diagnoses Not on filedocumented in this encounter Care Teams Car Body Mechanic Relationship Specialty Start Date End Date Nayla Miramontes MD [facility] [address] [place] [address] PCP - General 05/21/11 05/10/21 documented as of this encounter
--- OUTSIDE RECORDS SUMMARY | 2024-03-07 19:00 | XMS_ITS | Encounter Summary ---
[place] [address] Care Team Providers Care Computer Methods Analyst Name Role Phone Nayla Miramontes MD Primary Care Provider [phone] Reason for Visit * Reason Onset Date Comments Prior Authorization 04/03/2015 Encounter Details Date Type Department Care Team (Late st Contact Info) Description 04/03/2015 Tele[place] [phone] Lluvia Dey CMA GASTROENTEROLOGY DEPT Prior Authorization [...] Telephone Encounter - Lluvia Dey CMA - 04/03/2015 4:26 PM EST Prior Auth Medication name/dose/directions: esomeprazole 40 mg BID [facility] [phone] Insurance name and phone number: [place]icaid [phone] Insurance ID number: [id number] Faxed to health plan on: 04/03/2015 Medications tried and failed: esomeprazole 20 mg QD esomeprazole 40 mg QD lansoprazole Health plan decision: Awaiting decision documented in this encounter Plan of Treatment Upcoming Encounters Date Type Department Care Team (Late st Contact Info) Description 05/17/2024 2:30 PM EST Office [place] [phone] Alcides Bonilla MD [facility] [place] [address] 04/06/2049 9:00 AM EST Hospital En[place] [phone] Harry Guerrero MD [facility] [place] [address] documented as of this encounter Visit Diagnoses Not on filedocumented in this encounter Care Teams Computer Methods Analyst Relationship Specialty Start Date End Date Nayla Miramontes MD [facility] [address] [place] [address] PCP - General 05/21/11 05/10/21 documented as of this encounter
--- OUTSIDE RECORDS SUMMARY | 2024-03-07 19:00 | XMS_ITS | Encounter Summary ---
Author Organization [facility] [place] [address] Care Team Providers Care Checkering Machine Operator Name Role Phone Nayla Miramontes MD Primary Care Provider [phone] Encounter Details Date Type Department Care Team (Late st Contact Info) Description 10/31/2015 Telephone [place] [phone] Kaya Capps RN Social History Tobacco Use Types Packs/Day [...] Telephone Encounter - Kaya Capps RN - 10/31/2015 3:38 PM EDT T/C to [facility]. Phone message stated mailbox full so message left. * Telephone Encounter - Kaya Capps RN - 10/31/2015 3:38 PM EDT ----- Message from Darryl Burgos MD sent at 10/31/2015 2:35 PM EDT ----- Hi, Could you please let this pt know that her Hba1c is actually getting worse, and has increased to 10.2? She needs to f/u with her automatic centrifugal station operator for better managing her diabetes? Thanks Darryl documented in this encounter Plan of Treatment Upcoming Encounters Date Type Department Care Team (Late st Contact Info) Description 05/17/2024 2:30 PM EST Office Visit [place] [phone] Alcides Bonilla MD [facility] [place] [address] 04/06/2049 9:00 AM EST Hospital Encounter [place] [phone] Harry Guerrero MD [facility] [place] [address] documented as of this encounter Visit Diagnoses Not on filedocumented in this encounter Care Teams Checkering Machine Operator Relationship Specialty Start Date End Date Nayla Miramontes MD [facility] [address] [place] [address] PCP - General 05/21/11 05/10/21 documented as of this encounter
--- OUTSIDE RECORDS SUMMARY | 2024-03-07 19:00 | XMS_ITS | Encounter Summary ---
Author Organization [facility] [place] [address] Care Team Providers Care Workforce Management Manager Name Role Phone Nayla Miramontes MD Primary Care Provider [phone] Encounter Details Date Type Department Care Team (Late Contact Info) Description 08/13/2015 Notes Only Endocrinology at [facility] [place] [address] Hazel Calderon LD [facility] [place] [address] Social History Tobacco Use Types Packs/Day Years [...] Progress Notes * Hazel Oshea LD - 08/13/2015 5:11 PM EDT Received paperwork from [facility] diabetes for pump upgrade out of warranty date July 2015. Pt also has a couple cracks and every thing is worn off the black. Screen is scratched and worn, letteron buttons starting to fade. Will start the paperwork and have tg Kay Sign and Fax. documented in this encounter Plan of Treatment Upcoming Encounters Date Type Department Care Team (Late st Contact Info) Description 05/17/2024 2:30 PM EST Office Visit [place] [phone] Alcides Bonilla MD [facility] [place] [address] 04/06/2049 9:00 AM EST Hospital Encounter [place] [phone] Harry Guerrero MD [facility] [place] [address] documented as of this encounter Visit Diagnoses Not on filedocumented in this encounter Care Teams Workforce Management Manager Relationship Specialty Start Date End Date Nayla Miramontes MD [facility] [address] L[address] [facility] [address] [place] [address] PCP - General 05/21/11 05/10/21 documented as of this encounter
--- OUTSIDE RECORDS SUMMARY | 2024-03-07 19:00 | XMS_ITS | Encounter Summary ---
Author Organization [facility] [address] [place] [id number] Care Team Providers Care Linoleum Layer Apprentice Name Role Phone Nayla Miramontes MD Primary Care Provider [phone] Encounter Details Date Type Department Care Team (Late Contact Info) Description 10/25/2015 Telephone [place] [address] Hazel Calderon LD [facility] [place] [address] Social History Tobacco Use Types Packs/Day Years [...] Telephone Encounter - Hazel Oshea LD - 10/25/2015 2:09 PM EDT Pt would like to come in for 8am on 11/07 for the ipro CGM trial documented in this encounter Plan of Treatment Upcoming Encounters Date Type Department Care Team (Late st Contact Info) Description 05/17/2024 2:30 PM EST Office [place] [address] Alcides Bonilla MD [facility] [place] [address] 04/06/2049 9:00 AM EST Hospital Encounter [place] [address] Harry Guerrero MD [facility] [place] [address] documented as of this encounter Visit Diagnoses Not on filedocumented in this encounter Care Teams Linoleum Layer Apprentice Relationship Specialty Start Date End Date Nayla Miramontes MD [facility] L[facility]PE[address] [facility] [address] [place] [address] PCP - General 05/21/11 05/10/21 documented as of this encounter
--- OUTSIDE RECORDS SUMMARY | 2024-03-07 19:00 | XMS_ITS | Encounter Summary ---
Author Organization [facility] [place] [address] Care Team Providers Care Cooking Instructor Name Role Phone Nayla Miramontes MD Primary Care Provider [phone] Encounter Details Date Type Department Care Team (Late st Contact Info) Description 10/25/2015 Telephone Endocrinology at [facility] [place] [phone] Hazel Calderon LD [facility] [place] [address] Social History Tobacco Use Types Packs/Day Years [...] Encounter - Hazel Oshea LD - 10/25/2015 3:46 PM EDT Schedule for iPro2 CGM trial at 8am November 07 * Telephone Encounter - Hazel Oshea LD - 10/25/2015 1:30 PM EDT Recent Labs 07/24/15 1117 05/16/15 1335 01/04/15 1306 HA1C 9.7* 9.4* 10.0* documented in this encounter Plan of Treatment Upcoming Encounters Date Type Department Care Team (Late st Contact Info) Description 05/17/2024 2:30 PM EST Office [place] [phone] Alcides Bonilla MD [facility] [place] [address] 04/06/2049 9:00 AM EST Hospital Encounter [place] [phone] Harry Guerrero MD [facility] DR [place] [address] documented as of this encounter Visit Diagnoses Not on filedocumented in this encounter Care Teams Cooking Instructor Relationship Specialty Start Date End Date Nayla Miramontes MD [address] [place] [address] PCP - General 05/21/11 05/10/21 documented as of this encounter
--- OUTSIDE RECORDS SUMMARY | 2024-03-07 19:01 | XMS_ITS | Encounter Summary ---
Author Organization [facility] [place] [address] Care Team Providers Care Library Information Technician Name Role Phone Nayla Miramontes MD Primary Care Provider [phone] Encounter Details Date Type Department Care Team (Late st Contact Info) Description 08/21/2014 [place] [phone] Jojo Becker PA [facility] [place] [address] Social History Tobacco Use Types Packs/Day Years [...] EST Office [place] [phone] Alcides Bonilla MD [facility] [place] [address] 04/06/2049 9:00 AM EST Hospital Encounter [place] [address] Harry Guerrero MD [facility] DR [place]STRO[place] [address] documented as of this encounter Procedures Procedure Name Priority Date/Time Associated Diagnosis Comments FILM LIBRARY STORAGE ONLY ULTRASOUND STUDY Routine 08/21/2014 2:18 PM EDT documented in this encounter Results * Film Library- Storage only Ultrasound Study (08/21/2014 2:18 PM EDT) Anatomical Region Laterality Modality Other 08/21/2014 2:18 PM EDT Narrative 08/22/2014 2:18 PM EDT This is a Non-reportable exam Procedure Note LISA, UNSIGNED REPORT - 08/22/2014 This is a Non-reportable exam Jojo CORDOBA IM FILM LIBRARY ORD ERABLES documented in this encounter Visit Diagnoses Not on filedocumented in this encounter Care Teams Library Information Technician Relationship Specialty Start Date End Date Nayla Miramontes MD [facility] A[address]BELLA L[address]PEZ [facility] [address] [place] [address] PCP - General 05/21/11 05/10/21 documented as of this encounter
--- OUTSIDE RECORDS SUMMARY | 2024-03-07 19:01 | XMS_ITS | Encounter Summary ---
Author Organization [facility] [place] [address] Care Team Providers Care Talent Development Director Name Role Phone Nayla Miramontes MD Primary Care Provider [phone] Reason for Visit * Reason Onset Date Comments Medication Refill 07/03/2014 Encounter Details Date Type Department Care Team (Late st Contact Info) Description 07/03/2014 Refill [place] [address] Addie Alcantar MD [facility] [place] [address] Social History Tobacco Use Types Packs/Day Years [...] EST Office Visit [place] [phone] Alcides Bonilla MD [facility] [place] [address] 04/06/2049 9:00 AM EST Hospital Encounter [place] [address] Harry Guerrero MD [facility] [place] [address] documented as of this encounter Visit Diagnoses Not on filedocumented in this encounter Care Teams Talent Development Director Relationship Specialty Start Date End Date Nayla Miramontes MD [facility] [address] [place] [address] PCP - General Family Medicine 05/11/21 documented as of this encounter
--- OUTSIDE RECORDS SUMMARY | 2024-03-07 19:01 | XMS_ITS | Encounter Summary ---
Author Organization [facility] Address [facility] [place] [address] Care Team Providers Care Vp Packaging Name Role Phone Nayla Miramontes MD Primary Care Provider [phone] Reason for Visit * Reason Comments Post Op 1 month s/p CE IOL O S done 09/26/2014 Encounter Details Date Type Department Care Team (Late st Contact Info) Description 11/01/2014 10:30 AM EDT Office [place] [address] Alexis Villalba MD [facility] [place] [address] S/P cataract extraction and insertion of intraocular lens, right; Pseudophakia of both eyes (OD - 10/17/14, OS - 09/26/14) Discharge Disposition: Home Social History Tobacco Use [...] Progress Notes * Alexis Villalba MD - 11/01/2014 10:52 AM EDT Assessment/Plan: 1. 1 month s/p CE/IOL OS Doing well with normal post-op appearance, off drops 2. Cataract OD Surgery pending Jan 2015 Re-reviewed R/B/Alt to LAMBERTO, questions answered. She knows her vision may remain limite by retinopathy. 3. IDDM 4. Involuted PDR s/p PRP OU 5. Hx recurrent VH OD Follow up: Cataract surgery OS documented in this encounter Plan of Treatment Upcoming Encounters Date Type Department Care Team (Late st Contact Info) Description 05/17/2024 2:30 PM EST Office [place] [address] Alcides Bonilla MD [facility] [place] [address] 04/06/2049 9:00 AM EST Hospital Encounter Gastroenterology at [place] [phone] Harry Guerrero MD [facility] [place] [address] documented as of this encounter Visit Diagnoses Diagnosis S/P cataract extraction and insertion of intraocular lens, right Pseudophakia of both eyes (OD - 10/17/14, OS - 09/26/14) Lens replaced by other means documented in this encounter Care Teams Vp Packaging Relationship Specialty Start Date End Date Nayla Miramontes MD [address] [address] [place] [address] PCP - General 05/21/11 05/10/21 documented as of this encounter
--- OUTSIDE RECORDS SUMMARY | 2024-03-07 19:01 | XMS_ITS | Encounter Summary ---
Author Organization [facility] Address [facility] [place] [address] Care Team Providers Care Presetter Operator Name Role Phone Nayla Miramontes MD Primary Care Provider [phone] Reason for Visit * Reason Comments Urinary Incontinence Encounter Details Date Type Department Care Team (Late st Contact Info) Description 08/22/2014 2:00 PM EDT [place] [address] Jojo Becker PA [facility] [address] Unspecified urinary incontinence Discharge Disposition: Home Social History Tobacco Use [...] Sign Reading Time Taken Comments Blood Pressure 134/63 08/22/2014 1:25 PM EDT Pulse 87 08/22/2014 1:25 PM EDT Temperature - - Respiratory Rate 16 08/22/2014 1:25 PM EDT Oxygen Saturation - - Inhaled Oxygen Concentration - - Weight 92.1 kg (203 lb) 08/22/2014 1:25 PM EDT Height 166.4 cm (5' 5.5) 08/22/2014 1:25 PM EDT Body Mass Index 33.27 08/22/2014 1:25 PM EDT documented in this encounter Patient Instructions * Patient Instructions* Jojo Becker PA - 08/22/2014 2:51 PM EDT Behavioral Therapies The following foods may increase bladder overactivity and contribute to your lower urinary tract symptoms, as well as urinary incontinence. Please moderate in your diet: Alcohol, coffee, tea, citrus fruits and juices, tomatoes, spicy foods, sugar, honey, chocolate, onions, artificial sweeteners (especially nutrasweet), vinegar, aged or fermented foods, highly acidic foods Some fruits may contribute as well: apples, cantaloupe, strawberries, cranberries, grapes, guava, peaches, pineapples and plums Chamomile or peppermint teas are ok. Blueberry and pear juice are ok Please limit fluid to 64 oz per day, mostly water. Cut back on fluids after 6 pm (preferrably sips). If you have dry mouth, try sugar free candies, gum, or oral moisurizers (ie. Biotene) Timed void every 2 hours during the day, double void (take time to feel you empty fully) by gettingup and sitting back down, or changing position. Remember, the best time to void is PRIOR to having the urge. Move your bowels daily. Take a fiber supplement like metamucil, or you could try Miralax. Please use these per the recommendations on the back of the package. Kegels: 3 sets of 10, 3 times per day. Consciously tighten your pelvic floor prior to cough, laugh or sneeze to compress the urethra and minimize leakage Quick flicks: quick kegels to counteract urinary urgency and suppress bladder contractions. When you get the sense of urge, kegel 3-4 quick times. Wait for the urge to subside and then walk slowly tothe bathroom. Trial of physical therapy and biofeedback may be helpful for you Weight loss-has been shown to decrease the incidence of urinary incontinence. Tight Diabetes control [place] no more than 3 times per week. Void prior to and at least after intercourse. Keep a voiding diary of your symptoms (please see handout). Further Treatment Options Please see your primary care provider about your ongoing pain or health issues that are not urologic related. Consideration of a pessary and referral to Urogynecology or Gastroenterology. Consideration of medical therapies including: Anticholinergics (Detrol, Ditropan, Oxybutynin, Enablex, Vesicare, Sanctura, Toviaz) Mirabegron or off label use of Imipramine Regular dental care if you are taking anticholinergics We can consider PTNS (percutaneous tibial nerve stimulation) per our discussion. This requires 12 weekly therapies, each 30 minutes, to help minimize urgency and overactive bladder. You should not have a pacemaker/defibrillator or be to consider. We will discuss any neurologic or vascular/anticoagulation issues prior to starting this. You will need to fill out a 3 day voiding diary priorand after, as well as a weekly diary during therapy. You can continue PTNS therapy after the 12 initial therapies once your symptoms recur OFF therapy. We will consider urodynamics (bladder testing) if we are considering surgical therapies for your urgency/frequency of urination, or stress urinary incontinence. Estrogen replacement periurethrally if you do not have a history of estrogen related cancers. Please get a urine culture when you have an increase in urinary symptoms (burning, fever/chills, kidney pain, blood in your urine) so that we may fax an order to your local hospital or have you come here for a urine culture. This allows us to follow your urine culture results. If your cultures remain positive, we will do some additional testing. If you have intermittent infections that clear, we will consider antibiotic prophylaxis daily for 6months, postcoitally or self treatment. If your cultures remain negative, we will treat for presumptive IC or pelvic pain syndrome. Therapies would include amitriptyline, neurontin, atarax, feldene, NSAIDS (motrin), elmiron, elmiron instillations or cysto/hydrodistention Please call us to have a repeat urine culture done 2 days after you finish antibiotic therapy. Call us if you have blood in your urine that you can see at any time. If you have persistent urinary infections, we may onsider cranberry tablets or an antibiotic at bedtime to help prevent infections. documented in this encounter Progress Notes * Jojo Becker PA - 08/22/2014 2:02 PM EDT UROLOGY NEW PATIENT ASSESSMENT Patient Name: Roxann Hebert Patient Primary Care Provider: NAYLA MIRAMONTES MD Referring Provider: Same History of Present Illness: Roxann Hebert is an 58 y.o. year old woman, seen at the requestof Dr. Nayla Miramontes who presents for evaluation and assessment of urinary incontinence. Roxann used to have stress incontinence with URI only, but now wears pads all the time. Noted that inthe last couple of months, urinary incontinence has been getting worse. Has been buying Poise pads since April. Now wears one all of the time, frequently damp without realizing she has leaked. She wears 2 pads per day and 1 per night. She wet through her pad and wet the bed last night. Often wakes with wet pad in morning. No burning with urination. Does feel a pulling sensation in her groin sometimes. Usually feels that she has to push to empty her bladder. During the day urinates every 2-2.5 hours. Not always aware of incontinence. Does have urge incontinence, couple times per week. Drinks coffee in morning, 2 cups black. Drinks two bottles of water per day. Drinks flavored funes, maybe one per day, artificially sweetened. Drinks rare alcohol, 3x/year. Has had type 1 DM x 43 yrs. Worried about renal failure. Hgb A1c is high. No diabetic neuropathy. Normal vaginal sensation. Hypothyroid. Until 40s was only on Synthroid and insulin. Now with diabeticretinopathy, gastroparesis, arthritis and more medical problems including weight gain. She has features of stress incontinence with maneuvers including leakage with coughing, laughing, sneezing, lifting, straining, or bending over. She has features of urge incontinence and leaks without warning, leakage on her way to the toilet, when full. Her JARRED is worse than her UUI. No hx of UTIs x many years. Her bowels are constantly constipated. Taking Amitiza and Miralax which help. Sees [facility] at [facility]. Notes from Dr. Miramontes have been received and reviewed. ROS: Constitutional: No fevers, chills, +weight gain, excessive fatigue. HEENT: Denies new problems with vision or hearing, sore throat, hoarseness. Cardiovascular: Denies chest pain, palpitations, shortness of breath, ankle swelling, claudication. Respiratory: Denies cough, hemoptysis, wheeze. Gastrointestinal: Denies nausea, vomiting, abdominal pain, diarrhea, + constipation, blood per rectum. Neurological: Denies headaches, dizziness, double vision, weakness of one side of the body. Musculoskeletal: Denies bone pain, +joint pain - OA in knees, muscle weakness or myalgias. Heme/Lymph: Denies easy bleeding or bruising. Endocrine: see above Skin: Denies changing moles or rashes. Psych: Denies depression or anxiety. Past Medical History Diagnosis Date ??? Diabetes mellitus ??? Thyroid disease ??? Skin disease ??? GERD (gastroesophageal reflux disease) ??? Hyperlipidemia ??? Hypertension ??? Anxiety ??? Asthma ??? Cortical cataract 05/05/2011 ??? PDR (proliferative diabetic retinopathy) 05/25/2011 Past Surgical History Procedure Laterality Date ??? Upper gi endoscopy, exam 04/25/2011 UPPER GI ENDOSCOPY performed by MARIA DEL CARMEN BOB at [facility] ENDOSCOPY ??? Upper gi endoscopy, biopsy 04/27/2012 UPPER GASTROINTESTINAL ENDOSCOPY,WITH BIOPSY SINGLE OR MULTIPLE performed by Luis Bucio MD [facility] ENDOSCOPY ??? Retinal laser surgery ??? Vitrectomy,focal laser rx retina 05/16/2013 OS VITRECTOMY, PARS PLANA, LASER performed by Dany Young MD at [facility] MAIN OR ??? Finger surgery ??? Colonoscopy, diagnostic 09/13/2013 COLONOSCOPY, DIAGNOSTIC performed by Marie Zamora MD at [facility] ENDOSCOPY ??? Colonoscopy, diagnostic 01/10/2014 COLONOSCOPY, DIAGNOSTIC performed by Marie Zamora MD at [facility] ENDOSCOPY ??? Upper gi endoscopy, diagnostic N/A 04/24/2014 EGD, UPPER GI ENDOSCOPY performed by Harry Guerrero MD at [facility] ENDOSCOPY Family History Problem Relation Age of Onset ??? Diabetes Neg Hx ??? Glaucoma Neg Hx ??? Macular Degeneration Neg Hx ??? Retinal Detachment Neg Hx ??? Amblyopia Neg Hx ??? Strabismus Neg Hx ??? Depression Father ??? Mental Illness Father ??? Alcohol Abuse Father ??? Dementia Father ??? Depression Sister ??? Anxiety Disorder Sister ??? Mental Illness Sister ??? Alcohol Abuse Sister ??? Alcohol Abuse Brother History Social History ??? Marital Status: Spouse Name: N/A Number of Children: N/A ??? Years of Education: N/A Occupational History ??? Not on file. Social History Main Topics ??? Smoking status: Former Smoker Quit date: 05/06/1984 ??? Smokeless tobacco: Never Used ??? Alcohol Use: No Comment: once a year ??? Drug Use: No ??? Sexual Activity: Not on file Other Topics Concern ??? Not on file Social History Narrative OBJECTIVE FINDINGS: Vitals: Blood pressure 134/63, pulse 87, resp. rate 16, height 166.4 cm (5' 5.5), weight 92.08 kg (203 lb). Pleasant woman in no acute distress. Abdomen: The abdomen is soft, non tender with no masses. There is no hepatosplenomegaly. The bladder is not palpable. There is no CV angle tenderness. Pelvic: The external genitalia are normal with normal hair distribution and no lesions. The meatus is in a normal location with a normal configuration. There is/not mobility of the bladder neck. The urethra is nontender. There are no urethral masses. The patient does not leak in the supine positionwith a valsalva and with coughing. There is a Gr.0 cystocele and a Gr. 0 rectocele. There are no pelvic masses. The uterus vault ist well supported. Normal reported vaginal sensation. Rectal: deferred Musculoskeletal: grossly normal, normal gait Neurologic: grossly normal PVR with bladder scanner by my review: 0 cc. U/A by my review: +leuks, + glucose Ultrasound at [facility] 08/21/2014: 5 mm non-obstructing stone in right mid pole Urinalysis and culture sent to rule out UTI. Impression: Mixed urinary incontinence, with uncontrolled diabetes. Plan/Recommendations: ??? Discussed behavioral therapies including timed and double voiding, hydration with water, moderation of bladder irritants, moderation of bowels. Please see the behavioral handout. ??? Advised tighter glucose control. Poor blood sugar control may be contrbuting to her incontinence. ??? Discussed PT for pelvic floor therapy/stengthening exercises. Her PCP can advise her as to whomto use in the [facility] area. ??? Discussed medical therapies including anticholinergics, mirabegron and imipramine. Pros and cons/side effects discussed. ??? We discussed surgical therapies and UDS, including interstim, injectables and sling procedures,including procedures, pros/cons/risks ??? Will see her back in 4-6 weeks after a trial of imipramine 10 mg. Start once at night and titrate up to TID as tolerated. Asked patient to keep a voiding diary. documented in this encounter Plan of Treatment Upcoming Encounters Date Type Department Care Team (Late st Contact Info) Description 05/17/2024 2:30 PM EST Office [place] [address] Alcides Bonilla MD [facility] [place] [address] 04/06/2049 9:00 AM EST Hospital [place] [address] Harry Guerrero MD [facility] [place] [address] documented as of this encounter Procedures Procedure Name Priority Date/Time Associated Diagnosis Comments URINALYSIS WITH REFLEX CULTURE Routine 08/22/2014 3:09 PM EDT Unspecified urinary incontinence URINE CULTURE Routine 08/22/2014 3:09 PM EDT Unspecified urinary incontinence documented in this encounter Results * Urine culture Clean Catch Urine (08/22/2014 3:09 PM EDT) Urine Culture ? Patient Name: ROXANN HEBERT Ordered By: DELMA DENNEY III ? MR#: [id number] ?LOC: ??5B ? /Sex: ??1955 (58 years), ? Female ? PROCEDURE: Urine Culture ?SOURCE: T CC ? COLLECTED: 08/22/2014 15:09 ? STARTED: 08/22/2014 15:29 ? FINAL REPORT ? Final Report ? Verified:2014 15:07 ? 1,000-9,000 cfu/ml Gram Positive organisms , probable contaminant ? CERNER MILLENNIUM Urine specimen obtained by clean catch procedure (specimen) 08/22/2014 3:09 PM EDT 08/22/2014 3:29 PM EDT Narrative Resulting Agency Comment Spec In Lab Delma Denney III, MD MICROBIOLOGY - [facility] ORDERABLES CERMAGDALENA WALLERENNIUM * (ABNORMAL) Urinalysis with microscopic (08/22/2014 3:09 PM EDT) Glucose, Urine Dipstick 50(A) Negative mg/dL CERNER MILLENNIUM Protein, Urine Dipstick Negative Negative mg/dL CERNER MILLENNIUM Bilirubin, Urine Dipstick Negative Negative mg/dL CERNER MILLENNIUM Comment: Clinical correlation required for positive Urine Bilirubin results as false positive may occur with some drugs and drug related products. If a false positive is suspected a serum total bilirubin should be considered if clinically indicated. Urobilinogen, Urine Dipstick Normal Normal mg/dL CERNER MILLENNIUM pH, Urn (dipstick) 6.0 5.0 - 8.0 CERNER MILLENNIUM Blood, Urine Dipstick Negative Negative mg/dL CERNER MILLENNIUM Ketone, Urine Dipstick Negative Negative mg/dL CERNER MILLENNIUM Nitrite, Urine Dipstick Negative Negative CERNER MILLENNIUM Leukocytes, Urine Dipstick Trace(A) Negative mcL CERNER MILLENNIUM Appearance, Urine Dipstick Clear Clear CERNER MILLENNIUM Specific [place] Urine Automated 1.015 1.002 - 1.030 CERNER MILLENNIUM Color, Urine Dipstick Yellow Yellow CERNER MILLENNIUM RBC, Urine <1 0 - 4 /HPF CERNER MILLENNIUM WBC, Urine 1 0 - 5 /HPF CERNER MILLENNIUM Squamous Epithelial Cells, Urine <1 <=4 /HPF CERNER MILLENNIUM Urine specimen (specimen) 08/22/2014 3:09 PM EDT 08/22/2014 3:23 PM EDT Narrative Resulting Agency Comment Spec In Lab Delma Denney III, MD URINE ORDERABLES [facility] documented in this encounter Visit Diagnoses Diagnosis Unspecified urinary incontinence documented in this encounter Care Teams Presetter Operator Relationship Specialty Start Date End Date Nayla Miramontes MD [address] [place] [address] PCP - General 05/21/11 05/10/21 documented as of this encounter
--- OUTSIDE RECORDS SUMMARY | 2024-03-07 19:01 | XMS_ITS | Encounter Summary ---
Author Organization Formerly [facility] [place] [address] Care Team Providers Care Alarm Security Or Surveillance Monitor Name Role Phone Nayla Miramontes MD Primary Care Provider [phone] Encounter Details Date Type Department Care Team (Late st Contact Info) Description 09/26/2014 7:30 AM EDT - 09/26/2014 8:10 AM EDT Surgery [place] [address] Alexis Villalba MD [facility] [place] [address] CATARACT EXTRACTION, EXTRACAPSULAR, W/ LENS INSERTION (WRVU [...] Sign Reading Time Taken Comments Blood Pressure 111/66 09/26/2014 8:07 AM EDT Pulse 74 09/26/2014 8:07 AM EDT Temperature 36.2 ??C (97.2 ??F) 09/26/2014 8:07 AM ED T Respiratory Rate 16 09/26/2014 8:07 AM EDT Oxygen Saturation 94% 09/26/2014 8:07 AM EDT Inhaled Oxygen Concentration - - Weight 90.7 kg (200 lb) 09/26/2014 6:49 AM EDT Height 165.1 cm (5' 5) 09/26/2014 6:49 AM EDT Body Mass Index 33.28 09/26/2014 6:49 AM EDT documented in this encounter Discharge Instructions * Discharge Instructions* Delaney Jeronimo RN - 09/26/2014 6:32 AM EDT Home Care Instructions after Cataract [...] Villalba is in the Eye Clinic Desk tomorrow. You may have received medication before [...] or additional concerns or questions please call: [phone] 8am to5pm. After 5pm, please call [phone] and ask for opthalmology MD continuous improvement black belt. documented in this encounter Medications at Time of Discharge Medication Sig Dispensed Refills Start Date End Date lisinopril (PRINIVIL;ZESTRIL) 20 mg Tablet Take 1 tablet by mouth daily. 30 tablet 12/08/2013 MULTI-VITAMIN ORAL Take 1 tablet by mouth daily. Reported on 05/26/2016 CELECOXIB (CELEBREX ORAL) Take by mouth. 7 esomeprazole (NEXIUM) 40 mg Capsule, Delayed Release(E.C.) Take 40 mg by mouth 2 times daily (before meals). 5 lubiprostone (AMITIZA) 24 mcg CapsuleIndications:S low transit constipation Take 1 capsule by mouth 2 times daily (with meals). 60 capsule 6 09/13/2014 6 bethanechol (URECHOLINE) 5 mg Tablet Take 1 tablet by mouth 3 times daily. 90 tablet 3 09/13/2014 5 imipramine (TOFRANIL) 10 mg Tablet Take 1 tablet by mouth nightly. After one week, take one tablet twice per day and increase to three times per day if not too tiring. 90 tablet 1 08/22/2014 6 Domperidone, Bulk, PowderIndications:Ga stroparesis 10 mg by Misc.(Non-Drug; Combo Route) route 3 times daily (before meals). 500 g 11 08/01/2014 6 prazosin (MINIPRESS) 1 mg Capsule Take 1 capsule nightly. While nightmares persist and you do NOT have symptoms of low blood pressure, increase dose by 1 capsule every 1-2 nights, up to a maximum of 8 capsules nightly. 60 capsule 0 07/12/2014 5 Diabetic Supplies, Miscellan. Misc Form faxed to [employer] for pump/diabetic supplies. 600 each 3 07/03/2014 6 levothyroxine (SYNTHROID) 175 mcg Tablet Take 175 mcg by mouth daily. Takes 1 tablet 2 days/week 6 busPIRone (BUSPAR) 5 mg Tablet Take 5 mg by mouth 2 times daily. 6 Adalimumab (HUMIRA PEN) 40 mg/0.8 mL Pen Injector Kit Inject 0.8 mLs subcutaneously every 14 days. 3 kit 3 03/14/2014 6 diphenhydrAMINE/alum inum-magnesium hydroxide/lidocaine (BMX) 1:1:1 Oral SuspensionIndication s:Dysphagia Take 5-10 mLs by mouth 3 times daily as needed. 250 mL 2 02/09/2014 6 escitalopram oxalate (LEXAPRO) 20 mg Tablet Take 60 mg by mouth daily. 6 insulin lispro (HUMALOG) injection Inject 65 Units subcutaneously continuous. Via insulin pump 8 trimethobenzamide (TIGAN) 300 mg capsuleIndications:N &V (nausea and vomiting) Take 1 capsule by mouth 4 times daily as needed. 90 capsule 12 10/25/2013 5 ondansetron (ZOFRAN-ODT) 4 mg oral disintegrating tabletIndications:N& V (nausea and vomiting) Take 1 tablet by mouth every 8 hours as needed for Nausea. 20 tablet 12 10/25/2013 5 gabapentin (NEURONTIN) 300 mg capsule Take 3 capsules by mouth nightly. Take 300 mg every morning and 600 mg at bedtime 180 capsule 3 10/25/2013 6 bisacodyl (DULCOLAX) 10 mg suppositoryIndicatio ns:Constipation Place 1 suppository rectally daily. 60 suppository 3 08/15/2013 5 Diabetic Supplies, Miscellan. MiscIndications:Type I (juvenile type) diabetes mellitus without mention of complication, not stated as uncontrolled Inject 1 each subcutaneously 4 times daily. Faxed pump and supply order to [employer] at [phone]. Dx Code: 250.01 100 each 12 08/08/2013 6 cyclobenzaprine (FLEXERIL) 5 mg tablet Take 5 mg in the morning and 10 mg at bedtime. 270 tablet 4 07/25/2013 6 celecoxib (CELEBREX) 100 mg capsule Take 1 capsule by mouth 2 times daily. 120 capsule 3 02/23/2013 6 levothyroxine (SYNTHROID) 150 mcg tablet Take 150 mcg by mouth. 5 times a week. 6 tolterodine (DETROL) 2 mg tablet Take 2 mg by mouth 2 times daily. 6 insulin glargine (LANTUS) 100 unit/mL vial injectionIndications :type 1 diabetes mellitus Inject 18 Units subcutaneously daily. 1 vial = 10ml = 1,000 units Indications: Type 1 Diabetes Mellitus 10 mL 5 04/29/2011 7 melatonin 3 mg Tab Take 9 mg by mouth nightly. 7 documented as of this encounter H&P Notes * Alexis Villalba MD - 09/26/2014 7:11 AM EDT Roxann Baxter reports no new symptoms [...] and agreement. * Alexis Villalba MD - 09/26/2014 7:11 AM EDT See H&P from Nancy Abbasi documented in this encounter Miscellaneous Notes * Op Note - Alexis Villalba MD - 09/26/2014 8:04 AM EDT Pre-op diagnosis: Nuclear sclerotic cataract, left eye Post-op diagnosis: Same Surgeon: Alexis Villalba MD Name of procedure: Phacoemulsification of cataract with posterior chamber intraocular lens implant,left eye Anesthesia: Subtenons retrobulbar block, IV sedation Description of procedure: The left eye was marked preoperatively. A latex-free procedure was performed. The patient was brought into the operating suite, positioned in the supine position, and the patient's identity was verified by the surgeon and operative team. Monitors were placed by the heavy equipment service manager. Topical anaesthetic was placed in the left eye. The patient's left eye was prepped with Betadine, including a [...] emulsified with the phacoemulsification handpiece in a neycyy-maf-nnqribe fashion. Residual cortical material was removed with the automated irrigation/aspiration unit. The posterior capsule was polished. The capsular bag was inflated with viscoelastic. An Lenny Model [id number] posterior chamber lens with a 6mm acrylic optic was inspected and found to be without defects, placed in the Talmage III telephone order clerk room service cartridge, and injected into the capsular bag [...] 2:30 PM EST Office [place] [address] Alcides Bonilla MD [facility] [place] [address] 04/06/2049 9:00 AM EST Hospital Encounter [place] [address] Harry Guerrero MD [facility] DR [place] [address] documented as of this encounter Procedures Procedure Name Priority Date/Time Associated Diagnosis Comments CATARACT EXTRACTION, EXTRACAPSULAR, W/ LENS INSERTION (WRVU 7.35) 09/26/2014 7:32 AM EDT Combined forms of age-related cataract of both eyes documented in this encounter Visit Diagnoses Diagnosis Combined forms of age-related cataract of both eyes Other and combined forms of senile cataract Combined forms of age-related cataract of both eyes Other and combined forms of senile cataract documented in this encounter Administered Medications Inactive Administered Medications - up to 3 most recent administrations Medication Order MAR Action Action Date Dose Rate Site cyclopentolate (CYCLODRYL) 1 % ophthalmic solution 1 drop 1 drop, Left Eye, EVERY 5 MIN, 3 doses, First dose on Thu09/26/14 at 0700, Last dose on Thu09/26/14 at 0710, 1 drop to the operative eye every 5 minutes times 3. Start day of surgery, Day of Surgery (Day of Procedure), Routine Given 09/26/2014 7:10 AM EDT 1 drop Given 09/26/2014 7:05 AM EDT 1 drop Given 09/26/2014 7:00 AM EDT 1 drop ketorolac tromethamine (ACULAR) 0.5 % ophthalmic solution 1 drop 1 drop, Left Eye, ONCE, 1 dose, On Thu09/26/14 at 0700, 1 drop to the operative eye once, start on day of surgery, Day of Surgery (Day of Procedure), Routine Given 09/26/2014 7:00 AM EDT 1 drop lactated ringers infusion 1,000 mL 1,000 mL, at 100 mL/hr, Intravenous, CONTINUOUS, Starting on Thu09/26/14 at 0700, Until Thu09/26/14 at 1143, Day of Surgery (Day of Procedure) New Bag 09/26/2014 7:00 AM EDT 1,000 mLs 100 mL/hr midazolam (PF) (VERSED) 1 mg/mL injection 0.5-2 mg 0.5-2 mg, Intravenous, EVERY 5 MIN PRN, Starting on Thu09/26/14 at 0631, Until Thu09/26/14 at 1143, Sleep, Anxiety, For use in the Operating room (OR) or Outpatient Surgery Center (OSC) or Special Procedure room only with direct provider supervision and verbal order. Hold for delirium/agitation. (Maximum dose 5 mg)., Intra-Operative (Intra-Procedure), Routine Given 09/26/2014 7:28 AM EDT 2 mg moxifloxacin (VIGAMOX) 0.5 % ophthalmic solution 1 drop 1 drop, Left Eye, EVERY 5 MIN, 3 doses, First dose on Thu09/26/14 at 0700, Last dose on Thu09/26/14 at 0710, 1 drop to the operative eye every 5 minutes times 3. Start on the day of surgery., Day of Surgery (Day of Procedure), Routine Given 09/26/2014 7:10 AM EDT 1 drop Given 09/26/2014 7:05 AM EDT 1 drop Given 09/26/2014 7:00 AM EDT 1 drop PHENYLephrine (MYDFRIN) 2.5 % ophthalmic solution 1 drop 1 drop, Left Eye, EVERY 5 MIN, 3 doses, First dose on Thu09/26/14 at 0700, Last dose on Thu09/26/14 at 0710, 1 drop to the operative eye every 5 minutes times 3. Start on the day of surgery., Day of Surgery (Day of Procedure), Routine Given 09/26/2014 7:10 AM EDT 1 drop Given 09/26/2014 7:05 AM EDT 1 drop Given 09/26/2014 7:00 AM EDT 1 drop prednisoLONE acetate (PRED FORTE) 1 % ophthalmic suspension 1 drop 1 drop, Left Eye, ONCE, 1 dose, On Thu09/26/14 at 0700, 1 drop to the operative eye once, start on day of surgery, Day of Surgery (Day of Procedure), Routine Given 09/26/2014 7:00 AM EDT 1 drop documented in this encounter Active and Recently Administered Medications Times are shown in EDT. Scheduled Medication Order 09/24/2014 09/25/2014 09/26/2014 cyclopentolate (CYCLODRYL) 1 % ophthalmic solution 1 drop (COMPLETED) 1 drop, Left Eye, EVERY 5 MIN, 3 doses, First dose on Thu09/26/14 at 0700, Last dose on Thu09/26/14 at 0710, 1 drop to the operative eye every 5 minutes times 3. Start day of surgery, Day of Surgery (Day of Procedure), Routine 0700 (Given - Provid er: Delaney Jeronimo RN)0705 (Given - Provider: Delaney Jeronimo RN)0710 (Given - Provider: Delaney Jeronimo RN) ketorolac tromethamine (ACULAR) 0.5 % ophthalmic solution 1 drop (COMPLETED) 1 drop, Left Eye, ONCE, 1 dose, On Thu09/26/14 at 0700, 1 drop to the operative eye once, start on day of surgery, Day of Surgery (Day of Procedure), Routine 0700 (Given - Provid er: Delaney Jeronimo RN) moxifloxacin (VIGAMOX) 0.5 % ophthalmic solution 1 drop (COMPLETED) 1 drop, Left Eye, EVERY 5 MIN, 3 doses, First dose on Thu09/26/14 at 0700, Last dose on Thu09/26/14 at 0710, 1 drop to the operative eye every 5 minutes times 3. Start on the day of surgery., Day of Surgery (Day of Procedure), Routine 0700 (Given - Provid er: Delaney Jeronimo RN)0705 (Given - Provider: Delaney Jeronimo RN)0710 (Given - Provider: Delaney Jeronimo RN) PHENYLephrine (MYDFRIN) 2.5 % ophthalmic solution 1 drop (COMPLETED) 1 drop, Left Eye, EVERY 5 MIN, 3 doses, First dose on Thu09/26/14 at 0700, Last dose on Thu09/26/14 at 0710, 1 drop to the operative eye every 5 minutes times 3. Start on the day of surgery., Day of Surgery (Day of Procedure), Routine 0700 (Given - Provid er: Delaney Jeronimo RN)0705 (Given - Provider: Delaney Jeronimo RN)0710 (Given - Provider: Delaney Jeronimo RN) prednisoLONE acetate (PRED FORTE) 1 % ophthalmic suspension 1 drop (COMPLETED) 1 drop, Left Eye, ONCE, 1 dose, On Thu09/26/14 at 0700, 1 drop to the operative eye once, start on day of surgery, Day of Surgery (Day of Procedure), Routine 0700 (Given - Provid er: Delaney Jeronimo RN) Continuous Medication Order 09/24/2014 09/25/2014 09/26/2014 lactated ringers infusion 1,000 mL (CANCELED) 1,000 mL, at 100 mL/hr, Intravenous, CONTINUOUS, Starting on Thu09/26/14 at 0700, Until Thu09/26/14 at 1143, Day of Surgery (Day of Procedure) 0700 (New Bag - Prov ider: Delaney Jeronimo RN - Comment: kvo in pre op) PRN Medication Order 09/24/2014 09/25/2014 09/26/2014 midazolam (PF) (VERSED) 1 mg/mL injection 0.5-2 mg (CANCELED) 0.5-2 mg, Intravenous, EVERY 5 MIN PRN, Starting on Thu09/26/14 at 0631, Until Thu09/26/14 at 1143, Sleep, Anxiety, For use in the Operating room (OR) or Outpatient Surgery Center (OSC) or Special Procedure room only with direct provider supervision and verbal order. Hold for delirium/agitation. (Maximum dose 5 mg)., Intra-Operative (Intra-Procedure), Routine 0728 (Given - Provid er: Delaney Jeronimo RN) documented in this encounter Care Teams Alarm Security Or Surveillance Monitor Relationship Specialty Start Date End Date Nayla Miramontes MD [address] [place] [address] PCP - General 05/21/11 05/10/21 documented as of this encounter
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
--- OUTSIDE RECORDS SUMMARY | 2024-03-07 19:01 | XMS_ITS | Encounter Summary ---
Author Organization [facility] Address [facility] [place] [address] Care Team Providers Care Store Sales Manager Name Role Phone Nayla Miramontes MD Primary Care Provider [phone] Reason for Visit * Reason Comments Diabetes x 40 years pdr with prp ou, s/p vit hem ou,floaters, Cataract sent by sandra for eval Encounter Details Date Type Department Care Team (Late st Contact Info) Description 05/19/2014 9:30 AM EST Office [place] [address] Alexis Villalba MD [facility] [place] [address] Combined forms of age-related cataract of both eyes; Proliferative diabetic retinopathy of both eyes, without macular edema, associated with type 2 diabetes mellitus; Vitreous hemorrhage of right eye; IDDM (insulin dependent diabetes mellitus); Myopia with astigmatism and presbyopia, bilateral Discharge Disposition: Home Social History Tobacco Use [...] Progress Notes * Alexis Villalba MD - 05/19/2014 11:42 AM EST Assessment/Plan: Roxann Ceja is a 58 y.o. female with the following ophthalmic issues: 1. Cataracts OU - visually significant 2. IDDM with involuted PDR 3. Mild VH OD - followed by [facility] 4. Myopia/astigmatism/presbyopia OU Comment: She understands that her vision is compromised by the retinopathy and the cataracts, and that cataract surgery may improve her vision, but not back to normal. Discussed cataract surgery, process, recovery, Risks/Benefits/Alternatives, and the option of waiting. AAO cataract surgery pamphlet given to patient. Reviewed the chance of WORSE vision, damage to the eye, need for further treatment or surgery, possible need for strong glasses, imbalance between eyes, other problems possible. Lens options and refractive targets reviewed. Questions answered. Ortega Ceja expresses understanding, requests cataract surgery OU, OS first. Discussed option of presbyopic IOL to try to minimize need for glasses (not being used at [facility], butavailable elsewhere). Roxann Ceja declines presbyopic IOL and requests single vision IOL. Amount of astigmatism moderate OD: declines toric IOL Dominant eye: OD Refractive target: distance documented in this encounter Plan of Treatment Upcoming Encounters Date Type Department Care Team (Late st Contact Info) Description 05/17/2024 2:30 PM EST Office [place] [address] Alcides Bonilla MD [facility] [place] [address] 04/06/2049 9:00 AM EST Hospital Encounter [place] [address] Harry Guerrero MD [facility] [place] [address] documented as of this encounter Procedures Procedure Name Priority Date/Time Associated Diagnosis Comments CATARACT EXTRACTION, EXTRACAPSULAR, W/ LENS INSERTION Routine 05/19/2014 11:47 AM EST Combined forms of age-related cataract of both eyes documented in this encounter Results * [id number] CALC BY LASER [id number] EYES (08/09/2014 9:15 AM EDT) Anatomical Region Laterality Modality Other Narrative 08/09/2014 9:16 AM EDT POM reviewed. IOLMaster: ??good quality scans K's: ?? 0.75 D cyl OD, 0.50 D cyl OS See paper POM form for IOL calculations. Avg IOL-M K's ?? OD ?? 42.99 @ 092 / 43.77 @ 002>>>>>> ?OS ?? 43.72 @ 077 / 44.18 @ 167>>>>>> Target ?? OD ??-0.25 ?OS ??-0.25>>>>>> HWTW ?? OD 12.2 ? OS 12.1>>>>>> ACD ? OD 2.38 ? OS 2.47>>>>>> Axial Length ?? OD ??23.87 ??IOL-M ? OS ??23.64 Alexis Villalba MD OPHTHALMOLOGY SERVIC ES ORDERABLES documented in this encounter Visit Diagnoses Diagnosis Combined forms of age-related cataract of both eyes Other and combined forms of senile cataract Proliferative diabetic retinopathy of both eyes, without macular edema, associated with type 2 diabetes mellitus Vitreous hemorrhage of right eye Vitreous hemorrhage IDDM (insulin dependent diabetes mellitus) Type II or unspecified type diabetes mellitus without mention of complication, not stated as uncontrolled Myopia with astigmatism and presbyopia, bilateral Combined forms of age-related cataract of both eyes Other and combined forms of senile cataract documented in this encounter Care Teams Store Sales Manager Relationship Specialty Start Date End Date Nayla Miramontes MD [facility] [address] [place] [address] PCP - General 05/21/11 05/10/21 documented as of this encounter
--- OUTSIDE RECORDS SUMMARY | 2024-03-07 19:01 | XMS_ITS | Encounter Summary ---
Author Organization [facility] [place] [address] Care Team Providers Care Goring Cutter Name Role Phone Nayla Miramontes MD Primary Care Provider [phone] Reason for Visit * Reason Comments Follow-up Encounter Details Date Type Department Care Team ([facility] st Contact Info) Description 01/17/2014 10:40 AM EDT Follow-[place] [address] Sonja Chavez MD [facility] [place] [address] Dysphagia Discharge Disposition: Home Social History Tobacco Use [...] Sign Reading Time Taken Comments Blood Pressure 146/61 01/17/2014 10:09 AM EDT Pulse 81 01/17/2014 10:09 AM EDT Temperature - - Respiratory Rate 16 01/17/2014 10:09 AM EDT Oxygen Saturation 97% 01/17/2014 10:09 AM EDT Inhaled Oxygen Concentration - - Weight 88.5 kg (195 lb) 01/17/2014 10:09 AM EDT Height - - Body Mass Index 31.96 10/25/2013 1:45 PM EDT documented in this encounter Progress Notes * Sonja Chavez MD - 01/17/2014 5:33 PM EDT COPY: Nayla Miramontes M.D. Joy Sanders M.D. Patient's Record Ms. Ceja was seen in followup today with a timed barium swallow. Her result today is increasingly confusing. She complains of both heartburn and dysphagia and certainly on her upper GI there was a suggestion of possible achalasia. Her timed barium swallow today shows that initial passage of contrast at 1 minute but at 2 and 5 minutes there is a higher persistent column despite no further ingestion of barium. This would suggest that she actually refluxed this material and then has poor emptying. We talked further about some of the options for repair and whether manometry may be a feasible option with Toupet fundoplication versus an anterior reflux procedure which I am reluctant to do given her dysphagia. She is due for presentation at conference tomorrow and I will also discuss her case with Dr. Guerrero. I think it may be reasonable to attempt repeat manometry with high resolution to study her lower esophageal sphincter and also consider endoscopy with Botox injection. If she responds dramatically to Botox with an improvement in her symptoms this would suggest a senior care solution may be myotomy versus any other intervention. She is agreeable with this plan and will inform her as to the next step based on the decisions at conference. Thank you for allowing me to participate in her care. Kindest regards. documented in this encounter Plan of Treatment Upcoming Encounters Date Type Department Care Team (Late st Contact Info) Description 05/17/2024 2:30 PM EST Office [place] [address] Alcides Bonilla MD [facility] [place] [address] 04/06/2049 9:00 AM EST Hospital En[place] [address] Harry Guerrero MD [facility] [place] [address] documented as of this encounter Visit Diagnoses Diagnosis Dysphagia Dysphagia, unspecified documented in this encounter Care Teams Goring Cutter Relationship Specialty Start Date End Date Nayla Miramontes MD [employer] ANABELLA LÓPEZ [facility] [address] [place] [address] PCP - General 05/21/11 05/10/21 documented as of this encounter
--- OUTSIDE RECORDS SUMMARY | 2024-03-07 19:01 | XMS_ITS | Encounter Summary ---
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 After 5pm, please call [phone] and ask for opthalmology MD stone fabricator. documented in this encounter Medications at Time [...] Domperidone, Bulk, PowderIndications:Ga stroparesis 10 mg by Mis.(Non-Drug; Combo Route) route 3 times daily (before meals). 500 g 11 08/01/2014 6 prazosin (MINIPRESS) 1 mg Capsule Take 1 capsule nightly. While nightmares persist and you do NOT have symptoms of low blood pressure, increase dose by 1 capsule every 1-2 nights, up to a maximum of 8 capsules nightly. 60 capsule 0 07/12/2014 5 Diabetic Supplies, [facility]. [facility] [employer] for pump/diabetic supplies. 600 each 3 07/03/2014 [...] daily. Faxed pump and supply order to [employer] at [phone]. Dx Code: 250.01 100 each 12 08/08/2013 [...] operative team. Monitors were placed by the ep tech. Topical anaesthetic was placed in the left [...] emulsified with the phacoemulsification handpiece in a [id number] fashion. Residual cortical material was removed with the automated irrigation/aspiration unit. The posterior capsule was polished. The capsular bag was inflated with viscoelastic. An Lenny Model [id number] posterior chamber lens with a 6mm acrylic optic was inspected and found to be without defects, placed in the Freeman III explosive ordnance disposal manager cartridge, and injected into the capsular bag [...] 2:30 PM EST Office [place] [phone] Alcides Bonilla MD [facility] [place] [address] 04/06/2049 9:00 AM EST Hospital Encounter [place] [phone] Harry Guerrero MD [facility] [place] [address] documented as of this encounter Procedures Procedure [...] PRN, Starting on Thu09/26/14 at 0631, Until 6/23/15 at 1143, Sleep, Anxiety, For use in [...] drop, Left Eye, ONCE, 1 dose, On 09/26/14 at 0700, 1 drop to the operative eye once, start on day of surgery, Day of Surgery (Day of Procedure), Routine 0700 (Given - Provid er: Delaney Jeronimo RN) moxifloxacin (VIGAMOX) 0.5 % ophthalmic solution 1 drop (COMPLETED) 1 drop, Left Eye, EVERY 5 MIN, 3 doses, First dose on 09/26/14 at 0700, Last dose on Tu09/26/14 at 0710, 1 drop to the operative [...] 5 MIN, 3 doses, First dose on 09/26/14 at 0700, Last dose on 09/26/14 at 0710, 1 drop to the operative [...] drop, Left Eye, ONCE, 1 dose, On 09/26/14 at 0700, 1 drop to the operative [...] RN) documented in this encounter Care Teams Immersion Metalcleaner Relationship Specialty Start Date End Date Nayla Miramontes MD [facility] ANABELLA PEARSON [address] [place] [address] PCP - General 05/21/11 05/10/21 documented as of this encounter
--- OUTSIDE RECORDS SUMMARY | 2024-03-07 19:01 | XMS_ITS | Encounter Summary ---
Author Organization [facility] [place] [address] Care Team Providers Care Dba Developer Name Role Phone Nayla Miramontes MD Primary Care Provider [phone] Encounter Details Date Type Department Care Team (Late st Contact Info) Description 09/13/[address] [facility] [place] [address] Tamanna Nguyen APRN [facility] [place] [address] Social History Tobacco Use Types Packs/Day Years [...] encounter Miscellaneous Notes * Telephone Encounter - Tamanna Nguyen APRN - 09/13/2014 4:30 PM EDT Contacted Mrs Baxter with the results of her HROEM that revealed hypotensive LES, normal LES relaxation and severe IEM. She is taking Nexium 40 mg BID. Discussed trying Bethanechol 5 mg TID and call or email with an update in 7 days. Consider increasing to 10 mg TID. I did my best to answer all of her questions. documented in this encounter Plan of Treatment Upcoming Encounters Date Type Department Care Team (Late st Contact Info) Description 05/17/2024 2:30 PM EST Office [place] [address] Alcides Bonilla MD [facility] [place] [address] 04/06/2049 9:00 AM EST Hospital [place] [phone] Harry Guerrero MD [facility] [place] [address] documented as of this encounter Visit Diagnoses Diagnosis Slow transit constipation documented in this encounter Care Teams Dba Developer Relationship Specialty Start Date End Date Nayla Miramontes MD [facility] ANABELLA PEARSON [address] [place] [address] PCP - General 05/21/11 05/10/21 documented as of this encounter
--- OUTSIDE RECORDS SUMMARY | 2024-03-07 19:01 | XMS_ITS | Encounter Summary ---
Author Organization [facility] [place] [address] Care Team Providers Care Bar Examiner Name Role Phone Nayla Miramontes MD Primary Care Provider [phone] Reason for Referral * Consultation (Routine) - Closed Specialty Diagnoses / Procedures Referred By Franklin laird Referred To Contact Gastroenterology Diagnoses Dysphagia Tamanna Nguyen [facility] [place] [address] [facility] [address] [place] [address] Referral ID Status Reason Start Date Expiration Date V isits Requested Visits Authorized [id number] Closed Test Only 08/01/2014 08/01/2015 3 3 Reason for Visit * Reason Comments Follow-up Encounter Details Date Type Department Care Team (Late st Contact Info) Description 08/01/2014 1:00 PM EDT Follow-[place] [phone] Tamanna Nguyen [facility] [place] [address] Gastroparesis; Dysphagia Discharge Disposition: Home Social History Tobacco [...] Sign Reading Time Taken Comments Blood Pressure 129/59 08/01/2014 12:34 PM EDT Pulse 94 08/01/2014 12:34 PM EDT Temperature - - Respiratory Rate - - Oxygen Saturation - - Inhaled Oxygen Concentration - - Weight 91.4 kg (201 lb 9.6 oz) 08/01/2014 12:34 PM EDT Height 167.6 cm (5' 6) 08/01/2014 12:34 PM EDT Body Mass Index 32.54 08/01/2014 12:34 PM EDT documented in this encounter Patient Instructions * Patient Instructions* Tamanna Nguyen APRN - 08/01/2014 1:23 PM EDT 1. High resolution esophageal manometry and will contact you with the results 2. Prokinetic/nausea: Domperidone 10 mg every 8 hours before meals 3. Tigan 300 mg every 6 hours as needed 4. Zofran ODT 8 mg every 8 hours as needed 5. Gastroparesis diet and copy provided 6. Recommend eating smaller more frequent 5-6 low fat meals; liquid dinner and no food 4-5 hours before bedtime 7. Nexium 40 mg twice a day; take 30 minutes before breakfast and dinner on an empty stomach 8. MiraLax 17 grams before bedtime 9. Amitiza 24 mcg twice a day; if you run out of Amitiza then try Smooth Move Tea before bedtime 10. Follow up 3-4 months Tamanna Nguyen APRN documented in this encounter Progress Notes * Tamanna Nguyen APRN - 08/01/2014 12:50 PM EDT Subjective: Patient ID: Roxann Ceja is a 58 y.o. woman who presents for follow up [...] with large hiatal hernia. 3. Dysphagia: --HROEM 02/01/2014: 1. Normal LES resting pressure. [...] cecum are normal. HPI Comments: She reports calling this past winter to cancel the upper endoscopy for Botox injection secondary to weather and for some reason never heard back from our department to reschedule. She reports that the dysphagia remains unchanged. It occurs with both solids or liquids. She has been drinking more Glucerna shakes since she finds solid foods difficult to swallow. She tries to not eat too late [...] experience early satiety and postprandial fullness. She reports having a bowel movement every 3-4 days. States that bowel habits are more regular when she uses Amitiza 24 mcg BID, which she does not consistently. Has not used MiraLax. HbA1C 9. Weight gain. Remainder of ROS unremarkable. Review of Systems [...] to Visit Medication Sig Dispense Refill ??? prazosin (MINIPRESS) 1 mg Capsule Take 1 capsule nightly. While nightmares persist and you do NOT have symptoms of low blood pressure, increase dose by 1 capsule every 1-2 nights, up to a maximumof 8 capsules nightly. 60 capsule 0 ??? Diabetic Supplies, Miscellan. Misc Form faxed to [employer] for pump/diabetic supplies. 600 each3 ??? levothyroxine [...] daily. Faxed pump and supply order to [employer] at [phone]. Dx Code: 250.01 100 each 12 ??? [...] performed by MARIA DEL CARMEN BOB at [facility] ENDOSCOPY ??? Upper gi endoscopy, biopsy 04/27/2012 UPPER GASTROINTESTINAL ENDOSCOPY,WITH BIOPSY SINGLE OR MULTIPLE performed by Luis Bucio MD [facility] ENDOSCOPY ??? Retinal laser surgery ??? Vitrectomy,focal laser rx retina 05/16/2013 OS VITRECTOMY, PARS PLANA, LASER performed by Dany Young MD at [facility] MAIN OR ??? Finger surgery ??? Colonoscopy, diagnostic 09/13/2013 COLONOSCOPY, DIAGNOSTIC performed by Marie Zamora MD at [facility] ENDOSCOPY ??? Colonoscopy, diagnostic 01/10/2014 COLONOSCOPY, DIAGNOSTIC performed by Marie Zamora MD at [facility] ENDOSCOPY ??? Upper gi endoscopy, diagnostic N/A 04/24/2014 EGD, UPPER GI ENDOSCOPY performed by Harry Guerrero MD at [facility] ENDOSCOPY Vital Signs: BP129/59; P 94; Wt 201 lbs 9.6 oz; Ht 5'6 Objective: Physical Exam Constitutional: She is oriented to person, place, and time. She appears well- developed and well-nourished. No distress. Eyes: Pupils are equal, round, and reactive to light. Cardiovascular: Normal rate, regular rhythm, normal heart sounds and intact distal pulses. Exam reveals no gallop and no friction rub. No murmur heard. Pulmonary/Chest: Effort normal and breath sounds normal. No respiratory distress. She has no wheezes. She has no rales. She exhibits no tenderness. Abdominal: Soft. Bowel sounds are normal. She exhibits no distension and no mass. There is no tenderness. There is no rebound and no guarding. No hepatosplenomegaly. No succussion splash. No epigastric bruit. Neurological: She is alert and oriented to person, place, and time. No cranial nerve deficit. Skin: Skin is warm and dry. No rash noted. She is not diaphoretic. No erythema. No pallor. Psychiatric: She has a normal mood and affect. Her behavior is normal. Judgment and thought contentnormal. Vitals reviewed. Assessment and Plan: 1. Dysphagia: EGD with Botox was not performed. Discussed with Roxann that it would be reasonable to repeat the HROEM for motor failure of esophagus. She is amenable to this. Await results for further management. 2. Gastroparesis: discussed starting Domperidone 10 mg TID before meals. She can use Zofran ODT and/or Tigan 300 mg QID prn. Continue with gastroparesis diet and eating smaller more frequent 5-6 low fat meals per day. 3. Giron's esophagus/GERD: continue Nexium 40 mg BID. GERD diet and lifestyle modifications. Consider Briones ph study. 4. Constipation: Amitiza 24 mcg BID and MiraLax 17 grams qhs. Consider anal manometry. Consider PT referral pending oam results. Consider Linaclotide 145- 290 mcg qam. I did my best to answer all of her questions. The following plan was formulated. Plan: 1. High resolution esophageal manometry and will contact patient with the results 2. Domperidone 10 mg TID before meals 3. Tigan 300 mg QID prn 4. Zofran ODT 8 mg TID prn 5. Gastroparesis diet and copy provided 6. Recommend eating smaller more frequent 5-6 low fat meals; liquid dinner and no food 4-5 hours before bedtime 7. Nexium 40 mg BID; take 30 minutes before breakfast and dinner on an empty stomach 8. MiraLax 17 grams qhs 9. Amitiza 24 mcg BID 10. Follow up 3-4 months Patient understands and is agreeable to the above plan. Written instructions provided. Tamanna Nguyen APRN Section of Gastroenterology and Hepatology [place] [id number] documented in this encounter Plan of Treatment Upcoming Encounters Date Type Department Care Team (Late st Contact Info) Description 05/17/2024 2:30 PM EST Office [place] [address] Alcides Bonilla MD [facility] [place] [address] 04/06/2049 9:00 AM EST Hospital En[place] [address] Harry Guerrero MD [facility] [place] [address] Scheduled Referrals Name Type Priority Associated Diagnoses Order Schedule Referral to Gastroenterology Outpatient Referral Routine Dysphagia Ordered: 08/01/2014 documented as of this encounter Visit Diagnoses Diagnosis Gastroparesis Dysphagia Dysphagia, unspecified documented in this encounter Care Teams Bar Examiner Relationship Specialty Start Date End Date Nayla Miramontes MD [facility] ANABELLA LÓPEZ [facility] [address] [place] [address] PCP - General 05/21/11 05/10/21 documented as of this encounter
--- OUTSIDE RECORDS SUMMARY | 2024-03-07 19:01 | XMS_ITS | Encounter Summary ---
Author Organization [facility] Address [facility] [place] [address] Care Team Providers Care Medical Diagnostic Radiographer Name Role Phone Nayla Miramontes MD Primary Care Provider [phone] Encounter Details Date Type Department Care Team (Late st Contact Info) Description 01/10/2014 2:15 PM EDT - 01/10/2014 3:15 PM EDT [place] [address] Marie Venegas MD [facility] [place] [address] COLONOSCOPY, DIAGNOSTIC (WRVU 3.26) Social History Tobacco [...] Sign Reading Time Taken Comments Blood Pressure 130/72 01/10/2014 3:35 PM EDT Pulse 79 01/10/2014 3:35 PM EDT Temperature - - Respiratory Rate 18 01/10/2014 3:35 PM EDT Oxygen Saturation 96% 01/10/2014 3:35 PM EDT Inhaled Oxygen Concentration - - Weight - - Height - - Body Mass Index - - documented in this encounter Discharge Instructions * Discharge Instructions* [place], Beryl C, RN - 01/10/2014 3:36 PM EDT Colonoscopy What to expect after [...] often you need to be checked. Thursday-[facility] [phone] 8a-5p Same Day Endo [phone] 7a-8p Otherwise contact [phone] and ask to speak to the wool puller paper cone machine tender Follow up care is a metcalf part [...] 1 capsule by mouth 2 times daily for 90 days. 180 capsule 4 12/08/2013 4 insulin lispro (HUMALOG) injection Inject 65 Units subcutaneously continuous. Via insulin pump 8 trimethobenzamide (TIGAN) 300 mg capsuleIndications:N &V (nausea and vomiting) Take 1 capsule by mouth 4 times daily as needed. 90 capsule 12 10/25/2013 5 lubiprostone (AMITIZA) 24 mcg capsuleIndications:C onstipation Take 1 capsule by mouth 2 times daily (with meals). 60 capsule 6 10/25/2013 5 ondansetron (ZOFRAN-ODT) 4 mg oral [...] daily. Faxed pump and supply order to [employer] at [phone]. Dx Code: 250.01 100 each 12 08/08/2013 6 cyclobenzaprine (FLEXERIL) 5 mg tablet Take 5 mg in the morning and 10 mg at bedtime. 270 tablet 4 07/25/2013 6 adalimumab (HUMIRA) 40 mg/0.8 mL injection Inject 0.8 mLs subcutaneously every 14 days. 3.2 mL 4 07/25/2013 5 celecoxib (CELEBREX) 100 mg capsule Take 1 capsule by mouth 2 times daily. 120 capsule 3 02/23/2013 6 levothyroxine (SYNTHROID) 150 mcg tablet Take 150 mcg by mouth. 5 times a week. 6 levothyroxine (SYNTHROID) 75 mcg tablet Take 75 mcg by mouth. 2 x's a week 5 tolterodine (DETROL) 2 mg tablet Take 2 mg by mouth 2 times daily. 6 Diabetic Supplies, [employer]. MiscIndications:Diab etes mellitus 1 each by Misc.(Non-Drug; Combo Route) route 6 times daily. Diagnosis: 250.91 Change infusion sets every 3 days Manually fax to [employer] Diabetes 600 each 3 05/30/2011 5 insulin glargine (LANTUS) 100 unit/mL vial injectionIndications :type 1 diabetes mellitus Inject 18 Units subcutaneously daily. 1 vial = 10ml = 1,000 units Indications: Type 1 Diabetes Mellitus 10 mL 5 04/29/2011 7 melatonin 3 mg Tab Take 9 mg by mouth nightly. 7 documented as of this encounter H&P Notes * Marie Venegas MD - 01/10/2014 2:51 PM EDT Gastroenterology and Hepatology Pre-Procedure History and Physical Exam Procedure: Colonoscopy Indication: 58F with history of constipation, colonoscopy to rule out structural lesions. Patient Active Problem List Diagnosis Code ??? Diabetes mellitus 250.00 ??? Hypertension 401.9 ??? Hyperlipidemia 272.4 ??? Hypothyroidism 244.9 ??? Psoriasis 696.1 ??? Depression 311 ??? Iron deficiency 280.9 ??? Asthma 493.90 ??? Microcytic anemia 280.9 ??? GERD (gastroesophageal reflux disease) 530.81 ??? Giron's esophagus 530.85 ??? Diabetic retinopathy associated with type 1 diabetes mellitus 250.51, 362.01 ??? DKA (diabetic ketoacidoses) 250.10 ??? Reflux esophagitis 530.11 ??? Gastritis 535.50 ??? Anasarca 782.3 ??? Cortical cataract 366.8 ??? 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 Vitreous hemorrhage of left eye 379.23 ??? PSC (posterior subcapsular cataract), bilateral 366.9 ??? Type 1 diabetes mellitus 250.01 ??? PDR (proliferative diabetic retinopathy) 250.50, 362.02 ??? Nuclear sclerosis 366.16 ??? Proliferative diabetic retinopathy of both eyes.-mild resolving bilateral vitreous hemorrhages.No traction. Good PRP. 250.50, 362.02 ??? Psoriatic arthritis.currently on Hydroxychloroquine. No signs of hydroxychloroquine retinopathy. Recommend close followup. 696.0 ??? Seborrheic keratosis 702.19 ??? Solar lentigo 709.09 ??? Xerosis cutis 706.8 ??? Pruritus 698.9 ??? Scoliosis 737.30 ??? Chronic low back pain 724.2, 338.29 ??? Dysphagia 787.20 ??? Constipation 564.00 ??? PDR (proliferative diabetic retinopathy) 250.50, 362.02 EXAM: HEENT: Airway examined, oropharynx clear Mallampati Score: II (soft palate, uvula, fauces visible) LUNGS: Clear to auscultation HEART: Regular rate and rhythm, normal S1, S2 ABDOMEN: Normal bowel sounds, soft, non tender, non distended, A/P Proceed with the planned endoscopic procedure. ASA 2 - Patient with mild systemic disease with no functional limitations Risks and benefits of the procedure explained to the patient. Consent signed. documented in this encounter Miscellaneous Notes * Miscellaneous - Provider, Scanning - 01/10/2014 9:55 PM EDT * Miscellaneous - Provider, Scanning - 01/10/2014 5:19 PM EDT * OR Attestation - Marie Venegas MD - 01/10/2014 3:27 PM EDT Attestation: Case Date: 01/10/2014 As the attending physician, I personally performed the entire procedure. MARIE VENEGAS MD 01/10/2014 documented in this encounter Plan of Treatment Upcoming Encounters Date Type Department Care Team (Late st Contact Info) Description 05/17/2024 2:30 PM EST Office Visit Gastroenterology at [place] [phone] Alcides Bonilla MD [facility] [place] [address] 04/06/2049 9:00 AM EST Hospital [place] [address] Harry Guerrero MD [facility] [place] [address] documented as of this encounter Procedures Procedure Name Priority Date/Time Associated Diagnosis Comments POCT GLUCOSE Routine 01/10/2014 3:44 PM EDT SURGICAL PATHOLOGY REPORT Routine 01/10/2014 3:28 PM EDT SPECIMEN TO PATHOLOGY Routine 01/10/2014 3:28 PM EDT COLONOSCOPY, DIAGNOSTIC (WRVU 3.26) 01/10/2014 3:[address] scan, colon POCT GLUCOSE Routine 01/10/2014 2:54 PM EDT COLONOSCOPY Routine 01/10/2014 2:49 PM EDT documented in this encounter Results * (ABNORMAL) POCT Glucose (01/10/2014 3:44 PM EDT) Glucose, POC 244(H) 60 - 199 mg/dL [facility] Comment: Supplemental ranges: <140 mg/dL before meals <180 mg/dL all other times of the day Blood specimen (specimen) 01/10/2014 3:44 PM EDT 01/10/2014 3:44 PM EDT Marie Venegas MD POINT OF CARE TEST O RDERABLES [facility] * Surgical Pathology Report (01/10/2014 3:28 PM EDT) Final Diagnosis ? [facility] ? Provider: ?? MARIE VENEGAS ?Pt. Name: ?? ROXANN HEBERT ? Acc #: ?[id number] ?Pt. ? Col Date: ?? 01/10/2014 ? /Sex: ?1955,(58 years),Female ? Rec Date: ?? 01/10/2014 ? LOC: ?4T ? SURGICAL PATHOLOGY ? ---Pathologic Diagnosis--- ? 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 ? Cr-PX ? 01/11/14 ? AAS ? 01/11/14 Verified by: ? SurDelbert abraham MD ? Pathologist ? (Electronic Signature) ? The attending pathologist whose signature appears on this report has ? reviewed all diagnostic slides and has edited the gross and/or ? microscopic portion of the report in rendering the final pathologic ? diagnosis. ? ---Gross Description--- ? A - Labeled/Fixativ e: Colon BX, formalin. ? Quantity/Size: Multiple, ranging from 0.1-0.5 cm. ? Tissue Description: Soft, pink tissues. ? Sections/Proces sing: (T2) ??sns ? ---Clinical Information--- ? Specimen Submitted: ? A - Colon bx ? Clinical History: ? Atrophic appearing colon, decreased folds ? Clinical Diagnosis: ? Same 01/11/2014 10:45 AM EDT [facility] GI Biopsy 01/10/2014 3:28 PM EDT 01/10/2014 3:28 PM EDT Marie Venegas MD PATHOLOGY/CYTOLOGY O JESSICA Performing Organization Address [facility] Co de Phone Number JOHN DE LEON [facility] [place] [address] * Specimen to Pathology (surgical or derm) (01/10/2014 3:28 PM EDT) AP Specimen 01/10/2014 3:28 PM EDT 01/10/2014 3:28 PM EDT Narrative JOHN DE LEON - 01/10/2014 3:28 PM EDT Specimen requisition ordered. ??Separate Pathology report to follow Marie Venegas MD PATHOLOGY/CYTOLOGY O JESSICA Performing Organization Address [facility] Co de Phone Number JOHN DE LEON * (ABNORMAL) POCT Glucose (01/10/2014 2:54 PM EDT) Glucose, POC 247(H) 60 - 199 mg/dL [facility] Comment: Supplemental ranges: <140 mg/dL before meals <180 mg/dL all other times of the day Blood specimen (specimen) 01/10/2014 2:54 PM EDT 01/10/2014 2:54 PM EDT Marie Venegas MD POINT OF CARE TEST O RDERABLES [facility] * COLONOSCOPY (01/10/2014 2:49 PM EDT) COLONOSCOPY [facility] Endoscopy Patient Name: Roxann Hebert ? Procedure Date: 01/10/2014 2:49 PM ? Date of : 1955 ? Age: 58 ? Order #: [id number] ? Procedure: ? Colonoscopy Indications: ? Screening for colorectal malignant ? neoplasm Providers: ? Marie Venegas, Joleen Amor, RN, ? Gregg Anthony ? Reagan, Health Information Tech Referring MD: ?Nayla Miramontes MD Medicines: ? Midazolam 4 mg IV, Fentanyl 200 ? micrograms IV Complications: ? No immediate [...] with the ? patient. All questions were answered ? and informed consent was obtained. ? - Patient identification and proposed ? procedure were verified prior to the ? procedure by the physician and the ? nurse. The procedure was verified in ? the pre-procedure area in the ? procedure room. ? - Pre-procedure physical examination ? revealed no contraindications to ? sedation. ? - ASA Grade Assessment: II - A ? patient with mild systemic disease. ? - After reviewing the risks and ? benefits, the patient was deemed in ? satisfactory condition to undergo the ? procedure. ? - The anesthesia plan was to use ? moderate sedation/analgesia ? (conscious sedation). ? The procedure, indications, benefits, ? risks [...] direct visualization, ? advanced to the terminal ileum. ? Careful inspection was made as the ? colonoscope was withdrawn. The ? colonoscopy was performed without ? difficulty. The patient tolerated the ? procedure well. The quality of the ? bowel preparation was fair. ? Findings: ? Perianal examination was normal. ? Multiple small and large-mouthed diverticula were ? found in the recto-sigmoid colon, in the sigmoid ? colon and in the descending colon. ? The mucosa vascular pattern in the entire colon was ? decreased throughout the colon. There was also lack ? of colonic folds seen. Biopsied. ? The terminal ileum appeared normal. ? No additional abnormalities were found on ? retroflexion. ? Impression: ?- Diverticulosis in the left colon ? - Atrophic, decreased vascular ? pattern throughout the colon. ? Biopsied. ? - Normal terminal ileum. Recommendation: ?Follow up with Tamanna Nguyen to review ? pathology results ? I would repeat her colonoscopy in ? 5yrs given the fact that her right ? colon was not visualized adequately ? even with a lot of irrigation ? She needs a long prep with liquid ? diet and Miralax prep for a few days ? Marie Venegas Marie Venegas, 01/10/2014 3:34 PM This report has been signed electronically. Number of Addenda: 0 Note Initiated On: 01/10/2014 2:49 PM [employer] 01/10/2014 2:49 PM EDT Nayla Miramontes MD GENERAL SURGICAL ORD [facility] [place] [employer] documented in this encounter Visit Diagnoses Diagnosis Abnormal CT scan, colon Nonspecific (abnormal) findings on radiological and other examination of gastrointestinal tract documented in this encounter Administered Medications Inactive Administered Medications - up to 3 most recent administrations Medication Order MAR Action Action Date Dose Rate Site fentaNYL 50mcg/mL injection ONCE PRN, Starting on 01/10/14 at 1502, Until Thu01/10/14 at 1542, Pain, Intra-Operative (Intra-Procedure), Routine Given 01/10/2014 3:12 PM EDT 50 mcg Left Arm Given 01/10/2014 3:09 PM EDT 50 mcg Le ft Arm Given 01/10/2014 3:05 PM EDT 50 mcg Le ft Arm lactated ringers infusion 50 mL/hr, Intravenous, CONTINUOUS, Starting on e 01/10/14 at 1515, Until 01/10/14 at 1542, Endoscopy (Day of Procedure) New Bag 01/10/2014 3:15 PM EDT 50 mL/hr 50 mL/hr midazolam (PF) (VERSED) 1 mg/mL injection ONCE PRN, Starting on e 01/10/14 at 1502, Until 01/10/14 at 1542, Sleep, Intra-Operative (Intra-Procedure), Routine Given 01/10/2014 3:12 PM EDT 1 mg Left Arm Given 01/10/2014 3:09 PM EDT 1 mg Le ft Arm Given 01/10/2014 3:05 PM EDT 1 mg Le ft Arm documented in this encounter Active and Recently Administered Medications Times are shown in EDT. Continuous Medication Order 01/08/2014 01/09/2014 01/10/2014 lactated ringers infusion (CANCELED) 50 mL/hr, Intravenous, CONTINUOUS, Starting on 01/10/14 at 1515, Until 01/10/14 at 1542, Endoscopy (Day of Procedure) 1515 (New Bag - Prov ider: Mellisa Oro RN) PRN Medication Order 01/08/2014 01/09/2014 01/10/2014 fentaNYL 50mcg/mL injection (CANCELED) ONCE PRN, Starting on 01/10/14 at 1502, Until 01/10/14 at 1542, Pain, Intra-Operative (Intra-Procedure), Routine 1502 (Given - Provid er: Joleen Amor RN)1505 (Given - Provider: Joleen Amor RN)1509 (Given - Provider: Joleen Amor RN - Comment: daphnie)1512 (Given - Provider: Joleen Amor RN) midazolam (PF) (VERSED) 1 mg/mL injection (CANCELED) ONCE PRN, Starting on 01/10/14 at 1502, Until 01/10/14 at 1542, Sleep, Intra-Operative (Intra-Procedure), Routine 1502 (Given - Provid er: Joleen Amor RN)1505 (Given - Provider: Joleen Amor RN)1509 (Given - Provider: Joleen Amor RN - Comment: daphnie)1511 (Given - Provider: Joleen Amor RN) documented in this encounter Care Teams Medical Diagnostic Radiographer Relationship Specialty Start Date End Date Nayla Miramontes MD [facility] [address] [place] [address] PCP - General 05/21/11 05/10/21 documented as of this encounter
--- OUTSIDE RECORDS SUMMARY | 2024-03-07 19:01 | XMS_ITS | Encounter Summary ---
Author [facility] [place] [address] Care Team Providers Care Leather Belt Maker Name Role Phone Nayla Miramontes MD Primary Care Provider [phone] Reason for Visit * Reason Comments PDR 6 mo check PDR OU po st PRP OU Diabetes Cataract Encounter Details Date Type Department Care Team (Late st Contact Info) Description 02/17/2014 9:15 AM EST Follow-[place] [address] Sosa Hewitt MD PDR (proliferative diabetic retinopathy), type 2, without macular edema Discharge Disposition: Home Social History Tobacco Use [...] as of this encounter Progress Notes * Sosa Hewitt MD - 02/17/2014 10:57 AM EST 1. Cataracts are significant. Will refer for cataract evaluation to next available cataract surgeon. 2. PDR OU, totally involutional with full PRP. 3. OD resolving tractional vitreous hemorrhage. No therapy indicated. Plan: 1. To cataract MD in [address] Hewitt in 6 months. documented in this encounter Plan of Treatment Upcoming Encounters Date Type Department Care Team (Late st Contact Info) Description 05/17/2024 2:30 PM EST Office [place] [phone] Alcides Bonilla MD [facility] [place] [address] 04/06/2049 9:00 AM EST Hospital Encounter [place] [phone] Harry Guerrero MD [facility] DR [place] [address] documented as of this encounter Visit Diagnoses Diagnosis PDR (proliferative diabetic retinopathy), type 2, without macular edema documented in this encounter Care Teams Leather Belt Maker Relationship Specialty Start Date End Date Nayla Miramontes MD [facility] [address] [place] [address] PCP - General 05/21/11 05/10/21 documented as of this encounter
--- OUTSIDE RECORDS SUMMARY | 2024-03-07 19:01 | XMS_ITS | Encounter Summary ---
Author Organization [facility] [place] [address] Care Team Providers Care Game Tester Name Role Phone Nayla Miramontes MD Primary Care Provider [phone] Reason for Visit * Reason Comments Post Op 1 week s/p CE IOL OS done 09/26/2014 Encounter Details Date Type Department Care Team (Late st Contact Info) Description 10/04/2014 1:00 PM EDT Office [place] [address] Alexis Villalba MD [facility] [place] [address] S/P cataract extraction and insertion of intraocular lens, left; Age-related nuclear cataract of right eye Discharge [...] Progress Notes * Alexis Villalba MD - 10/04/2014 1:08 PM EDT Assessment/Plan: 1. 1 week s/p CE/IOL OS Doing well with normal postop appearance Stop Vigamox drops Continue prednisolone and ketorolac drops 3x/day for 2 weeks and d/c 2. Cataract OD - visually significant Re-reviewed R/B/Alt to cataract surgery, chance of complications, option of waiting. Lens options and refractive target reviewed. Questions answered. Ms. Baxter expresses understanding, requests cataract surgery OD. 3. IDDM with involuted PDR s/p PRP 4. Hx VH OD Follow up: Cataract surgery second eye, 2 weeks (10/17/14) documented in this encounter Plan of Treatment Upcoming Encounters Date Type Department Care Team (Late st Contact Info) Description 05/17/2024 2:30 PM EST Office Visit Gastroenterology at [place] [phone] Alcides Bonilla MD [facility] [place] [address] 04/06/2049 9:00 AM EST Hospital Encounter Gastroenterology at [place] [phone] Harry Guerrero MD [facility] [place] [address] documented as of this encounter Procedures Procedure Name Priority Date/Time Associated Diagnosis Comments CATARACT EXTRACTION, EXTRACAPSULAR, W/ LENS INSERTION Routine 10/04/2014 1:26 PM EDT Age-related nuclear cataract of right eye documented in this encounter Visit Diagnoses Diagnosis S/P cataract extraction and insertion of intraocular lens, left Age-related nuclear cataract of right eye Senile nuclear sclerosis documented in this encounter Care Teams Game Tester Relationship Specialty Start Date End Date Nayla Miramontes MD [facility] [address] [place] [address] PCP - General 05/21/11 05/10/21 documented as of this encounter
--- OUTSIDE RECORDS SUMMARY | 2024-03-07 19:01 | XMS_ITS | Encounter Summary ---
[place] [address] Care Team Providers Care Adult Basic Education Teacher Name Role Phone Nayla Miramontes MD Primary Care Provider [phone] Reason for Visit * Reason Onset Date Comments Medication Problem 07/27/2014 Amitiza Encounter Details Date Type Department Care Team (Late st Contact Info) Description 07/27/2014 Telephone [place] [phone] Laila Flores MA GASTROENTEROLOGY DEPT Medication Problem (Amitiza) Social History Tobacco Use Types Packs/Day Years [...] Telephone Encounter - Laila Flores MA - 07/27/2014 9:19 AM EDT Ms. Ceja called to let us know that Amitiza is no longer covered by her insurance. She asked if something else could be prescribed. Called her pharmacy to ask if they new what is formulary for Mr. Angus Garner's insurance. [facility] told me that her insurance is changing there formulary list every few months, and that we coulddo a prior authorization. I requested a faxed copy of the necessary information. documented in this encounter Plan of Treatment Upcoming Encounters Date Type Department Care Team (Late st Contact Info) Description 05/17/2024 2:30 PM EST Office Visit [place] [address] Alcides Bonilla MD [facility] [place] [address] 04/06/2049 9:00 AM EST Hospital Encounter [place] [phone] Harry Guerrero MD [facility] [place] [address] documented as of this encounter Visit Diagnoses Not on filedocumented in this encounter Care Teams Adult Basic Education Teacher Relationship Specialty Start Date End Date Nayla Miramontes MD [facility] [address] [place] [address] PCP - General 05/21/11 05/10/21 documented as of this encounter
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
--- OUTSIDE RECORDS SUMMARY | 2024-03-07 19:01 | XMS_ITS | Encounter Summary ---
Author Organization [facility] [place] [address] Care Team Providers Care Hat Sprayer Name Role Phone Nayla Miramontes MD Primary Care Provider [phone] Encounter Details Date Type Department Care Team (Latest Contact Info) Description 02/01/2014 10:00 AM EDT Procedure visit [place] [address] Chelsey Carlos APRN [facility] DR [place] [address] Dysphagia (Primary Dx) Social History Tobacco Use Types Packs/Day Years [...] as of this encounter Progress Notes * Chelsey Carlos RN - 02/01/2014 10:48 AM EDT High resolution manometry completed without difficulty. Pt d/c from lab without concerns. documented in this encounter Plan of Treatment Upcoming Encounters Date Type Department Care Team ( Contact Info) Description 05/17/2024 2:30 PM EST Office Visit [place] [address] Alcides Bonilla MD [facility] [place] [address] 04/06/2049 9:00 AM EST Hospital Encounter [place] [address] Harry Guerrero MD [facility] DR [place] [address] documented as of this encounter Visit Diagnoses Diagnosis Dysphagia- Primary Dysphagia, unspecified documented in this encounter Care Teams Hat Sprayer Relationship Specialty Start Date End Date Nayla Miramontes MD [facility] ANABELLA LÓPEZ [facility] [address] [place] [address] PCP - General 05/21/11 05/10/21 documented as of this encounter
--- OUTSIDE RECORDS SUMMARY | 2024-03-07 19:01 | XMS_ITS | Encounter Summary ---
Author Organization [facility] Address [facility] [place] [address] Care Team Providers Care Playroom Attendant Name Role Phone Nayla Miramontes MD Primary Care Provider [phone] Encounter Details Date Type Department Care Team (Latest Contact Info) Description 01/17/2014 9:29 AM EDT - 01/17/2014 11:59 PM EDT Hospital Encounter XRay at [address] [place] [address] CLINIC, Kamala Yang MD [facility] [place] [address] Hiatal hernia Discharge Disposition: Home Social History [...] daily. Faxed pump and supply order to [email or web address] at [phone]. Dx Code: 250.01 100 each 12 08/08/2013 [...] mouth 2 times daily. 6 Diabetic Supplies, Miscellan. MiscIndications:Diab etes mellitus 1 each by Misc.(Non-Drug; Combo Route) route 6 times daily. Diagnosis: 250.91 Change infusion sets every 3 days Manually fax to [email or web address] Diabetes 600 each 3 05/30/2011 5 insulin glargine (LANTUS) 100 unit/mL vial injectionIndications :type 1 diabetes mellitus Inject 18 Units subcutaneously daily. 1 vial = 10ml = 1,000 units Indications: Type 1 Diabetes Mellitus 10 mL 5 04/29/2011 7 melatonin 3 mg Tab Take 9 mg by mouth nightly. 7 documented as of this encounter Plan of Treatment Upcoming Encounters Date Type Department Care Team (Late st Contact Info) Description 05/17/2024 2:30 PM EST Office [place] [address] Alcides Bonilla MD [facility] [place] [address] 04/06/2049 9:00 AM EST Hospital En[place] [address] Harry Guerrero MD [facility] [place] [address] documented as of this encounter Procedures Procedure Name Priority Date/Time Associated Diagnosis Comments XR FLUORO BARIUM SWALLOW (SINGLE CONTRAST) Routine 01/17/2014 10:25 AM EDT Hiatal hernia documented in this encounter Results * XR Fluoro Barium swallow (01/17/2014 10:25 AM EDT) Anatomical Region Laterality Modality N/A Radiographic Michelle ging 01/17/2014 10:2 5 AM EDT Narrative 01/17/2014 11:17 PM EDT Examination BARIUM SWALLOW Clinical History Question of achalasia on SBFT. - Please perform timed barium swallow Comparison Small-bowel follow-through 08/03/2013 Technique Single-contrast barium esophagram was performed with and radiopaque ruler and intermittent fluoroscopic images at 1, 2, and 5 minutes to evaluate the esophagus. Total fluoroscopy time: 3 seconds Findings At 1 minute there was a small air contrast level in the distal esophagus. There was subsequent increasing height of the barium column at 2 and 5 minute spot images which is likely due to gastroesophageal reflux. No esophageal dilatation was noted. However, there was tapered narrowing of the gastroesophageal junction. ?? Impression ? 1. Incomplete emptying of the esophagus at 1,2,5 mins, persistent air-fluid level within the esophagus in the upright position and tapered narrowing of the GE junction; these findings are consistent with achalasia. ? 2. Unwitnessed, but probable gastroesophageal reflux, given the increasing amounts of barium within the esophagus on the 1, 2, 5 minute films. Film and interpretation reviewed by the attending Procedure Note Harika Oneil MD - 01/17/2014 Examination BARIUM SWALLOW Clinical History Question of achalasia on SBFT. - Please perform timed barium swallow Comparison Small-bowel follow-through 08/03/2013 Technique Single-contrast barium esophagram was performed with and radiopaque rulerand intermittent fluoroscopic images at 1, 2, and 5 minutes to evaluate the esophagus. Total fluoroscopy time: 3 seconds Findings At 1 minute there was a small air contrast level in the distal esophagus.There was subsequent increasing height of the barium column at 2 and 5 minutespot images which is likely due to gastroesophageal reflux. No esophagealdilatation was noted. However, there was tapered narrowing of the gastroesophageal junction. Impression 1. Incomplete emptying of the esophagus at 1,2,5 mins, persistent air-fluid level within the esophagus in the upright position and tapered narrowing of the GE junction; these findings are consistent withachalasia. 2. Unwitnessed, but probable gastroesophageal reflux, given theincreasing amounts of barium within the esophagus on the 1, 2, 5 minute films. Film and interpretation reviewed by the attending Kamala Ennis MD IMG FLUORO ORDERABL ES documented in this encounter Visit Diagnoses Diagnosis Hiatal hernia Diaphragmatic hernia without mention of obstruction or gangrene documented in this encounter Care Teams Playroom Attendant Relationship Specialty Start Date End Date Nayla Miramontes MD [address] [place] [address] [address] [place] [address] PCP - General 05/21/11 05/10/21 documented as of this encounter
--- OUTSIDE RECORDS SUMMARY | 2024-03-07 19:01 | XMS_ITS | Encounter Summary ---
Author Organization [facility] [place] [address] Care Team Providers Care Electrode Turner And Finisher Name Role Phone Nayla Miramontes MD Primary Care Provider [phone] Encounter Details Date Type Department Care Team (Latest Contact Info) Description 09/05/2014 9:00 AM EDT Procedure visit [place] [address] CLINIC, Gloria Victoria, RN Dysphagia Discharge Disposition: Home Social History Tobacco [...] as of this encounter Progress Notes * Gloria Haley RN - 09/05/2014 9:25 AM EDT HROEM performed via right nare and was well tolerated. documented in this encounter Plan of Treatment Upcoming Encounters Date Type Department Care Team (Late st Contact Info) Description 05/17/2024 2:30 PM EST Office Visit [place] [address] Alcides Bonilla MD [facility] [place] [address] 04/06/2049 9:00 AM EST Hospital Encounter [place] [address] Harry Guerrero MD [facility] [place] [address] documented as of this encounter Visit Diagnoses Diagnosis Dysphagia Dysphagia, unspecified documented in this encounter Care Teams Electrode Turner And Finisher Relationship Specialty Start Date End Date Nayla Miramontes MD [facility] ANABELLA LÓPEZ [facility] [address] [place] [address] PCP - General 05/21/11 05/10/21 documented as of this encounter
--- OUTSIDE RECORDS SUMMARY | 2024-03-07 19:01 | XMS_ITS | Encounter Summary ---
Author Organization [facility] [place] [address] Care Team Providers Care Advanced Practice Professional Name Role Phone Nayla Miramontes MD Primary Care Provider [phone] Reason for Visit * Reason Comments Medication Refill Encounter Details Date Type Department Care Team (Late st Contact Info) Description 03/13/2014 [place] [address] Darryl Burgos MD [facility] [place] [address] Social History Tobacco Use Types Packs/Day Years [...] 2:30 PM EST Office [place] [phone] Alcides Bonilla MD [facility] [place] [address] 04/06/2049 9:00 AM EST Hospital [place] [address] Harry Guerrero MD [facility] [place] [address] documented as of this encounter Visit Diagnoses Not on filedocumented in this encounter Care Teams Advanced Practice Professional Relationship Specialty Start Date End Date Nayla Miramontes MD [facility] ANABELLA LÓPEZ [facility] [address] [place] [address] PCP - General 05/21/11 05/10/21 documented as of this encounter
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
--- OUTSIDE RECORDS SUMMARY | 2024-03-07 19:01 | XMS_ITS | Encounter Summary ---
[place] [address] Care Team Providers Care Lockstitch Binder Name Role Phone Nayla Miramontes MD Primary Care Provider [phone] Reason for Visit * Reason Onset Date Comments Prior Authorization 08/02/2014 Encounter Details Date Type Department Care Team (Late st Contact Info) Description 08/02/2014 Telephone [place] [phone] Qi Britton RNecommerce analyst Social History Tobacco Use Types Packs/Day Years [...] Telephone Encounter - Lluvia Dey CMA - 08/03/2014 12:10 PM EDT Medication: amitiza 24 mcg BID Pharmacy & Phone#: [facility] [phone] Insurance & Phone #: [place] medicaid [id number] ID #: [id number] Trialed (dosage, frequency): dulcolax Miralax Amitiza 8mcg Benefiber Notes: medication has been approved from 08/02/2014 until 08/03/2015. Tracking# [id number] Prior authorization# [id number] * Telephone Encounter - Qi Britton RN - 08/02/2014 4:41 PM EDT Medication: amitiza 24 mcg BID Pharmacy & Phone#: [facility] [phone] Insurance & Phone #: [place] medicaid [id number] ID #: [id number] Trialed (dosage, frequency): dulcolax Miralax Amitiza 8mcg Benefiber Notes: faxed awaiting decision documented in this encounter Plan of Treatment Upcoming Encounters Date Type Department Care Team (Late st Contact Info) Description 05/17/2024 2:30 PM EST Office Visit [place] [address] Alcides Bonilla MD [facility] [place] [address] 04/06/2049 9:00 AM EST Hospital Encounter [place] [address] Harry Guerrero MD [facility] DR [place] [address] documented as of this encounter Visit Diagnoses Not on filedocumented in this encounter Care Teams Lockstitch Binder Relationship Specialty Start Date End Date Nayla Miramontes MD [facility] [address] [place] [address] PCP - General 05/21/11 05/10/21 documented as of this encounter
--- OUTSIDE RECORDS SUMMARY | 2024-03-07 19:01 | XMS_ITS | Encounter Summary ---
Author Organization [facility] [place] [address] Care Team Providers Care Manager [employer] Name Role Phone Nayla Miramontes MD Primary Care Provider [phone] Reason for Visit * Reason Comments Follow-up Encounter Details Date Type Department Care Team (Late st Contact Info) Description 02/09/2014 1:00 PM EST Follow-Up Gastroenterology at [facility] [place] [address] Tamanna Nguyen, RONNIE [facility] [place] [address] Dysphagia (Primary Dx); GI problem Discharge Disposition: Home Social History Tobacco Use [...] Sign Reading Time Taken Comments Blood Pressure 143/65 02/09/2014 12:35 PM EST Pulse 86 02/09/2014 12:35 PM EST Temperature - - Respiratory Rate - - Oxygen Saturation - - Inhaled Oxygen Concentration - - Weight 91.6 kg (202 lb) 02/09/2014 12:35 PM EST Height 167.6 cm (5' 6) 02/09/2014 12:35 PM EST Body Mass Index 32.6 02/09/2014 12:35 PM EST documented in this encounter Patient Instructions * Patient Instructions* Tamanna Nguyen APRN - 02/09/2014 1:21 PM EST 1. Amitiza 24 mcg twice a day with food 2. Miralax 34 grams (2 cap full) before bedtime 3. Milk of magnesia 30-60 ml daily as needed; use if no bowel movement after 2 days 4. Call or email with an update 3-4 weeks 5. Upper endoscopy with Botox and call with an update in 3-4 weeks 6. Nexium 40 mg twice a day on an empty stomach 30 minutes before breakfast and dinner 7. Gaviscon liquid as needed 8. BMX 5-10 ml every 8 hours as needed; use before meals 9. Soft to liquid diet until upper endoscopy 10. Follow up 3-4 months Tamanna Nguyen APRN [phone] documented in this encounter Progress Notes * Tamanna Nguyen APRN - 02/09/2014 1:06 PM EST Subjective: Patient ID: Roxann Ceja is a 58 y.o. woman who presents for follow up of her gastrointestinal symptoms. HPI Comments: She reports that dysphagia to solids and liquids remains unchanged. Will drink water to relieve the lodged food bolus. She was evaluated by Dr. Chavez on 12/08/13 (refer to notes in ed) who presented her case for review at GI/surgery conference. HROEM repeated to evaluate for evolving achalasia in light of 5 minute timebarium swallow that revealed findings suggestive of achalasia given incomplete emptying of esophagus at 1,2,[address] Chavez recommended EGD with Botox and if symptoms improved then consider surgery. She reports experiencing GERD breakthrough symptoms every other day despite taking Nexium 40 mg twice a day. She takes second Nexium dose before bedtime. Uses Tums prn with some relief. She reports that early satiety and post prandial fullness persist but slightly better with following gastroparesis diet. She reports experiencing nausea 1-2 times per week. Tends to worse when in the car due to motion sickness. Denies vomiting. She reports taking Tigan 300 mg once and may repeat as needed. She has not required Zofran for a while. No nocturnal symptoms. She reports that constipation is not better. She reports having a bowel movement once a week despite taking Amitiza 24 mcg BID and MiraLax 17 grams qhs. Stools are pellet like. No melena, hematochezia, rectal or anal pain. She denies abdominal pain or cramping. Periodic gas and bloating but less intense than it used to be. Weight gain. Remainder of ROS unremarkable. Review of Systems Constitutional: Positive for appetite change (See HPI). Negative for fever, chills, diaphoresis, activity change, fatigue and unexpected weight change. HENT: Positive for trouble swallowing (See HPI). Negative for congestion, dental problem, drooling,ear discharge, ear pain, facial swelling, hearing loss, mouth sores, nosebleeds, postnasal drip, rhinorrhea, sinus pressure, sneezing, sore throat, tinnitus and voice change. Respiratory: Negative. Cardiovascular: Negative. Gastrointestinal: See HPI Endocrine: Negative. H/o hypothyroidism and DM II. Neurological: Negative. Hematological: Negative. Psychiatric/Behavioral: Negative. Allergies Allergen Reactions ??? Codeine Phosphate Nausea Only ??? Propoxyphene N-Acetaminophen Nausea Only Current Outpatient Prescriptions on File Prior to Visit Medication Sig Dispense Refill ??? escitalopram oxalate (LEXAPRO) 20 mg Tablet Take 40 mg by mouth daily. ??? esomeprazole (NEXIUM) 40 mg Capsule, Delayed Release(E.C.) Take 1 capsule by mouth 2 times daily for 90 days. 180 capsule 4 ??? lisinopril (PRINIVIL;ZESTRIL) 20 mg Tablet Take [...] daily. Faxed pump and supply order to [employer] at [phone]. Dx Code: 250.01 100 each 12 ??? cyclobenzaprine (FLEXERIL) 5 mg tablet Take 5 mg in the morning and 10 mg at bedtime. 270 tablet 4 ??? adalimumab (HUMIRA) 40 mg/0.8 mL injection Inject 0.8 mLs subcutaneously every 14 days. 3.2 mL 4 ??? celecoxib (CELEBREX) 100 mg capsule Take 1 capsule by mouth 2 times daily. 120 capsule 3 ??? levothyroxine (SYNTHROID) 150 mcg tablet Take 150 mcg by mouth. 5 times a week. ??? levothyroxine (SYNTHROID) 75 mcg tablet Take 75 mcg by mouth. 2 x's a week ??? tolterodine (DETROL) 2 mg tablet Take 2 mg by mouth 2 times daily. ??? Diabetic Supplies, Miscellan. Misc 1 each by Misc.(Non-Drug; Combo Route) route 6 times daily. Diagnosis: 250.91 Change infusion sets every 3 days Manually fax to [employer] Diabetes 600 each 3 ??? insulin glargine (LANTUS) 100 unit/mL vial [...] performed by MARIA DEL CARMEN BOB at [facility] ENDOSCOPY ??? Upper gi endoscopy, biopsy 04/27/2012 UPPER GASTROINTESTINAL ENDOSCOPY,WITH BIOPSY SINGLE OR MULTIPLE performed by Luis Bucio MD [facility] ENDOSCOPY ??? Retinal laser surgery ??? Vitrectomy,focal laser rx retina 05/16/2013 OS VITRECTOMY, PARS PLANA, LASER performed by Dany Young MD at [facility] MAIN OR ??? Finger surgery ??? Colonoscopy, diagnostic 09/13/2013 COLONOSCOPY, DIAGNOSTIC performed by Marie Zamora MD at [facility] ENDOSCOPY ??? Colonoscopy, diagnostic 01/10/2014 COLONOSCOPY, DIAGNOSTIC performed by Marie Zamora MD at [facility] ENDOSCOPY History Social History ??? Marital Status: Spouse [...] ??? Not on file Social History Narrative Recent tests: HROEM 02/01/2014: 1. Normal LES resting pressure. 2. Incomplete LES relaxation. 3. Normal UES resting pressure. 4. Normal UES relaxation. 5. Severe, ineffective esophageal motility bordering on motor failure given that only 2 of 11 swallows were partially peristaltic. Colonoscopy 01/10/14: Perianal examination was normal.Multiple small and large- mouthed diverticulawere found in the recto-sigmoid colon, in the sigmoid colon and in the descending colon. The mucosa vascular pattern in the entire colon was decreased throughout the colon. There was also lack of colonic folds seen. The terminal ileum appeared normal. No additional abnormalities were found on retroflexion. Bx: Colonic mucosa with melanosis coli. Barium swallow 01/17/14: 1. Incomplete emptying of the esophagus at 1,2,5 mins, persistent air-fluid level within the esophagus in the upright position and tapered narrowing of the GE junction; these findings are consistent with achalasia. 2. Unwitnessed, but probable gastroesophageal reflux, given the increasing amounts of barium within the esophagus on the 1, 2, 5 minute films. Colonoscopy 09/13/2013: preparation of the colon was inadequate. The rectum, sigmoid colon, descending colon, transverse colon, ascending colon and cecum are normal. GES 09/01/2013: two hours: 58% remains in the stomach (normal <60%); four hours: 17% remains inthe stomach (normal <10%) SBFT 08/03/2013: Severe esophageal dilatation with non emptying of the esophagus, esophageal dysmotility with large hiatal hernia. OEM 08/02/2013: 1. Unable to accurately identify LES resting pressure and relaxation; normal UES resting pressure and motor failure in the body of the esophagus. EGD 04/27/2012:The Z-line was variable and was found 33 cm from the incisors, there was a possibleisland of Giron's esophagus; a 5 cm hiatus hernia was present; multiple pedunculated and sessile polyps with no stigmata of recent bleeding were found in the gastric body; duodenum was normal; food(residue) was found in the gastric body. Bx: gastric fundic gland polyp. Esophagus: positive for Giron's esophagus but no dysplasia. Vital Signs: BP 143/65; P 86; Wt 202 lbs; Ht 5'6 Objective: Physical Exam Constitutional: She is oriented to person, place, and time. She appears well- developed and well-nourished. No distress. HENT: Head: Normocephalic and atraumatic. Mouth/Throat: Oropharynx is clear and moist. No oropharyngeal exudate. Eyes: Right eye exhibits no discharge. Left eye exhibits no discharge. No scleral icterus. Cardiovascular: Normal rate, regular rhythm, normal heart sounds and intact distal pulses. Exam reveals no gallop and no friction rub. No murmur heard. Pulmonary/Chest: Effort normal and breath sounds normal. No respiratory distress. She has no wheezes. She has no rales. She exhibits no tenderness. Abdominal: Soft. Bowel sounds are normal. She exhibits no distension and no mass. There is no rebound and no guarding. Genitourinary: Rectal exam deferred. Neurological: She is alert and oriented to person, place, and time. No cranial nerve deficit. Skin: Skin is warm and dry. No rash noted. She is not diaphoretic. No erythema. No pallor. Psychiatric: She has a normal mood and affect. Her behavior is normal. Judgment and thought contentnormal. Vitals reviewed. Assessment and Plan: #Dysphagia: symptoms persist. Reviewed the results of HROEM that revealed normal LES resting pressure, incomplete LES relaxation and Severe, ineffective esophageal motility bordering on motor failuregiven that only 2 of 11 swallows were partially peristaltic. 5 minute timed swallow showed incomplete emptying of the esophagus at 1,2,5 mins, persistent air-fluid level within the esophagus in the upright position and tapered narrowing of the GE junction; these findings are consistent with achalasia. Discussed with Mrs Ceja that these findings raise the issue of evolving achalasia given incomplete LES relaxation and severe IEM bordering on motor failure. Explained to patient that these findings are most likely d/t long standing DM I. Appreciate Dr Chavez's recommendations. Recommend proceeding with EGD with Botox. If this provided relief then consider myotomy and will discuss with Dr. Chavez. She is amenable to this. #Gastroparesis: continue with gastroparesis diet and eat small more frequent 6-8 low fat meals per day. Tigan 300 mg QID prn and Zofran ODT4 mg TID prn. Consider Domperidone 10 mg TID. #GERD/Giron's esophagus: symptoms controlled on Nexium 40 mg BID. GERD diet and lifestyle modifications. Recommend eating smaller more frequent 6-8 low fat meals per day. #Constipation: discussed continuing with Amitiza 24 mcg BID in conjunction with MiraLax 34 grams qhs. Use MOM prn if no BM after two days. Consider trying Linaclotide 145-290 mcg qam. Consider anal manometry for question of pelvic floor dysfunction. Consider PT referral pending oam results. #Gas/bloating: somewhat improved. Consider HBT to r/o SIBO. Will re-evaluate at follow up visit. I did my best to answer all of her questions. The following plan was formulated. Plan: 1. Amitiza 24 mcg BID with food; consider Linaclotide 145-290 mcg qam 2. Miralax 34 grams qhs 3. MOM 30-60 ml qd prn; use if no bowel movement after 2 days 4. Call or email with an update 3-4 weeks 5. Upper endoscopy with Botox 6. Nexium 40 mg BID on an empty stomach 30 minutes before breakfast and dinner 7. Gaviscon liquid prn 8. BMX 5-10 ml TID prn; use before meals 9. Soft to liquid diet until upper endoscopy 10. Follow up 3-4 months Patient understands and is agreeable to the above plan. Written instructions provided. Tamanna Nguyen APRN Section of Gastroenterology [place] [address] documented in this encounter Plan of Treatment Upcoming Encounters Date Type Department Care Team (Late st Contact Info) Description 05/17/2024 2:30 PM EST Office Visit [place] [phone] Alcides Bonilla MD [facility] [place] [address] 04/06/2049 9:00 AM EST Hospital Encounter [place] [phone] Harry Guerrero MD [facility] [place] [address] Scheduled Orders Name Type Priority Associated Diagnoses Orde r Schedule UPPER GI ENDOSCOPY Procedures Routine Dysphagia Ordered: 02/09/2014 documented as of this encounter Visit Diagnoses Diagnosis Dysphagia- Primary Dysphagia, unspecified GI problem Other symptoms involving digestive system documented in this encounter Care Teams Manager University Relationship Specialty Start Date End Date Nayla Miramontes MD [facility] [address] [place] [address] PCP - General 05/21/11 05/10/21 documented as of this encounter
--- OUTSIDE RECORDS SUMMARY | 2024-03-07 19:01 | XMS_ITS | Encounter Summary ---
Author Organization [facility] [place] [address] Care Team Providers Care Weigh And Charge Worker Name Role Phone Nayla Miramontes MD Primary Care Provider [phone] Reason for Visit * Reason Comments Post Op 1 day ck s/p CE/IOL OS Encounter Details Date Type Department Care Team (Late st Contact Info) Description 09/27/2014 9:45 AM EDT Office [place] [address] Alexis Villalba MD [facility] [place] [address] S/P cataract extraction and insertion of intraocular lens, left Discharge Disposition: Home Social History Tobacco Use [...] Progress Notes * Alexis Villalba MD - 09/27/2014 8:19 AM EDT Assessment/Plan: 1. 1 day s/p cataract surgery OS Doing well with a normal post operative appearance. - Prednisolone acetate 1% 3x/d in operative eye - Moxifloxicin 3x/d in operative eye - Ketorolac 3x/d in operative eye - Post op precaution sheet reviewed and given to patient 2. Cataract OD Anticipate CE/IOL 3 weeks 3. IDDM with involuted PDR s/p PRP Follow up: - 1 week DMM, sooner as needed. - Refract (prelim), dilate prn, and consent 2nd eye surgery documented in this encounter Plan of Treatment Upcoming Encounters Date Type Department Care Team (Late st Contact Info) Description 05/17/2024 2:30 PM EST Office [place] [address] Alcides Bonilla MD [facility] [place] [address] 04/06/2049 9:00 AM EST Hospital Encounter [place] [phone] Harry Guerrero MD [facility] [address] [place] [address] documented as of this encounter Visit Diagnoses Diagnosis S/P cataract extraction and insertion of intraocular lens, left documented in this encounter Care Teams Weigh And Charge Worker Relationship Specialty Start Date End Date Nayla Miramontes MD [address] [place] [address] PCP - General 05/21/11 05/10/21 documented as of this encounter
--- OUTSIDE RECORDS SUMMARY | 2024-03-07 19:01 | XMS_ITS | Encounter Summary ---
Author Organization [facility] Romel lantigua [place] [id number] Care Team Providers Care Photographic Equipment Assembler Name Role Phone Nayla Miramontes MD Primary Care Provider [phone] Reason for Referral * Psychiatric (Routine) - Closed Specialty Diagnoses / Procedures Referred By Contac t Referred To Contact Psychiatry Diagnoses Major depressive disorder, recurrent episode, severe, without mention of psychotic behavior Dysthymia JERALD (generalized anxiety disorder) Seasonal affective disorder Daniel Hilario [facility] [place] [address] [facility] [place] [address] Referral ID Status Reason Start Date Expiration Date V isits Requested Visits Authorized [id number] Closed Consult, Test & Treat 01/30/2014 07/29/2014 1 1 Encounter Details Date Type Department Care Team (Late st Contact Info) Description 01/30/2014 11:50 AM EDT Office Visit Psychiatry [place] [address] Daniel Hilario [facility] [place] [address] Major depressive disorder, recurrent episode, severe, without mention of psychotic behavior (Primary Dx); Dysthymia; JERALD (generalized anxiety disorder); Seasonal affective disorder Social History Tobacco Use Types Packs/Day Years [...] Sign Reading Time Taken Comments Blood Pressure 139/62 01/30/2014 12:42 PM EDT Pulse 71 01/30/2014 12:42 PM EDT Temperature - - Respiratory Rate - - Oxygen Saturation - - Inhaled Oxygen Concentration - - Weight 88.5 kg (195 lb) 01/30/2014 12:42 PM EDT Height 166.4 cm (5' 5.5) 01/30/2014 12:42 PM ED T Body Mass Index 31.96 01/30/2014 12:42 PM EDT documented in this encounter Progress Notes * Iron Julien MD - 02/01/2014 4:38 PM EDT I have examined this patient, reviewed the records and discussed the case in detail with the Dr. Hilario. I agree with the findings, diagnoses and plan as described in his note. * Daniel Hilario DO - 01/30/2014 10:56 AM EDT Mood Disorders Service Department of Psychiatry Summary of Evaluation and Recommendations ROXANN CEJA, 1955 Date of Evaluation:01/30/2014 This patient was seen and discussed with teaching faculty Dr. Julien. Please see his note for additional details. IDENTIFYING DATA: ROXANN CEJA (1955) was referred by Nayla Miramontes for evaluation of Depression. HISTORY OF PRESENT ILLNESS: (eg, age of onset, number and duration of episodes, interepisode status, presence of seasonal variation). A 58yo female with a history of diagnoses of depression with psychosis (dx: 1981 at age 25), depression (gave at age 23: 1978) and anxiety presents for the eval of depression. Regarding mood, it's been quite normal until the age of 23 ( and had the first ). Got into a difficult relationship. In , gave a to her second son (no problem with the first child) and then developed depression where she felt like her son was not her son (felt like there was no ruggiero and no control over him). Denies having had any kind of eccentric beliefs (eg. Evil force, etc). Noted that her mood plummeted rapidly since the , which lasted about 6months. Then, everything was fine. Adds that there was a big conflict with the dad of the child; was an alcoholic. Also, pt notes that this was the first time she felt void within her, which has been lasting until these days. Then, 2 years later, pt became psychotic where she became paranoid and catatonic. Describes catatonic that she felt like her arms were tied to a chair. Could not distinguish between thinking or speaking out loud. Also, felt like she was able to read the thoughts of her (oftenbelittling in content). Nothing like towards other people (also very isolated at the time). Mood was very flat. This was when she put a loaded gun to her head threatening to kill herself. Was hospitalized and tried various antipsychotics. Also, turned out to be hypothyroid and started levothyroxine. Got better gradually and got back to euthymia. However, after a failed relationship (relationship after the first divorce), took overdose (no hospitalization). Even these days, admits to intermittent irrational thoughts. Afraid of brushing her teeth or going down to the basement. Denies idea of references, thought insertion/broadcasting, paranoia, hallucinations. PHQ9 today indicates severe depression (20 today). Has been on Lexapro for about 5 years. Believes that it's losing effect. Is interested in getting into psychotherapy (none since 2 years agoby her psychiatrist). Admits to anxiety (7/10 on average), muscle tension (osteoarthirits), sleep disturbance (related toguilt about her son, granddaughter, etc), concentration difficulty (eg. Reading newspaper, watching TV) after DKA coma in 2010, irritability (getting mad over nothing) frequently, restlessness (ashlyn, lately). Pt thinks that the above symptoms are worsened recently in the context of self-injurious act (cutting) of her granddaughter (14yo). Recent stressors include the deaths of granddaughter (leukemia), rarhco-jl-rme, father, disruptive behaviors of her granddaughter, her medical health (diabetes, arthritis, gastroparesis). There are times she just wants to Scream because she has not fully processed the deaths of her granddaughter, [id number], father (all within 3 years). Admits to chronic suicidal ideation, which started in her late 20s. Denies intent but ideation has always been in the background. Admits to chronic emptiness (void), which milka been fluctuating in its intensity since early 20s. Growing up, very little self-esteem. Always high anxiety as a child. Admits to moderate difficulty about relationships ashlyn. in the past. The first marriage was destructive and the relationship after that was toxic. The current relationship (close to 20 years) is comfortable. Denies life-threatening traumas of rape/violence/disaster, sissy, ritualistic behaviors, panic attacks (used to in the past in the context of fear of height, elevator). Denies possession of guns. PSYCHOMETRICS: PHQ9 Questionnaires Data (Clinic and Pt Entered): Today's value PHQ-9 QUESTIONNAIRE (AMB) 01/30/2014 PHQ - 9 Score (Clinic) 20 (Severe Depression) Little interest or pleasure (Clinic) More than half the days Down, depressed, hopeless (Clinic) More than half the days Trouble sleeping (Clinic) Nearly every day Tired or no energy (Clinic) More than half the days Irregular eating habit(Clinic) Nearly every day Feeling like a failure (Clinic) Nearly every day Trouble concentrating (Clinic) More than half the days Moving or speaking slowly (Clinic) Several Days Would be better off (Clinic) More than half the days How difficult are the problems (Clinic) Very difficult PAST PSYCHIATRIC HISTORY Hospitalization: - 1980: depression with psychosis; 1 month long hospitalization Outpatient: - Had 15-20 therapist all her life. Fired many because of no therapeutic alliance. - Were moderately helpful because there was someone who listens. But benefited some from CBT as well. - the most recent therapy was a few years ago. It ended as Dr. Leon Moody (psychiatrist) moved away. ECT: denies Prior medication trials: - Tried amitriptyline, imipramine, nomifensine, clomipramine, sertraline, citalopram, escitalopram,bupropion, quetiapine, venlafaxine, ziprasidone, aripiprazole, lithium since her 20s. - after having been on it for about 5 years, effective (eg. Venlafaxine, citalopram) pooped out - hated bupropion because it made her feel like crap - high blood glucose with antipsychotics Suicide attempts: - suicial gesturing - never physically harm herself but has put a loaded gun (Macka) to her head in . - pill overdose in in the context of relational difficulty; no hospitalization then. Substance abuse: - Denies any use including nicotine. - Tried alcohol, nicotine, cocaine, marijuana, opioid (never heroin), amphetamine, hallucinogens; the most recent one was with marijuana in PAST MEDICAL HISTORY - Patient Active Problem List Diagnosis ??? Dysphagia ??? Constipation ??? PDR (proliferative [...] utility run on deactivated IMO Dx [id number] ALLERGIES: Allergies Allergen Reactions ??? Codeine Phosphate Nausea Only ??? Propoxyphene N-Acetaminophen Nausea Only CURRENT MEDICATIONS: Current Outpatient Prescriptions on File Prior [...] daily. Faxed pump and supply order to [facility] at [phone]. Dx Code: 250.01 100 each 12 ??? adalimumab (HUMIRA) 40 mg/0.8 mL injection [...] sets every 3 days Manually fax to [facility] Diabetes 600 each 3 ??? insulin glargine (LANTUS) 100 unit/mL vial injection Inject 18 Units subcutaneously daily. 1 vial = 10ml = 1,000 units Indications: Type 1 Diabetes Mellitus 10 mL 5 ??? melatonin 3 mg Tab Take 3 mg by mouth nightly. ??? MULTI-VITAMIN ORAL Take 1 tablet by mouth daily. ??? cyclobenzaprine (FLEXERIL) 5 mg tablet Take 5 mg in the morning and 10 mg at bedtime. 270 tablet 4 FAMILY HISTORY: Family History Problem Relation Age [...] Alcohol Abuse Sister ??? Alcohol Abuse Brother SOCIAL HISTORY: - Born in [place] - Living in [facility] for the past 20 years. - - has 2 sons (39 and 34) - Lives with and granddaughter - In the process of applying for disability REVIEW OF SYSTEMS: MENTAL STATUS EXAM: Filed Vitals: 01/30/14 1242 BP: 139/62 Pulse: 71 Height: 166.4 cm (5' 5.5) Weight: 88.451 kg (195 lb) ? General Appearance/Behavior: good hygeine; calm and cooperative with interview ? Speech: coherent; normal rate, tone, and prosody ? Thought Process: linear, logical, and goal-directed ? Associations: intact ? Thought Content: Abnormal Thoughts and Perceptions:Denies Homicidality / Violent Thoughts: Denies Suicidality : Denies Hallucinations: Denies Delusions: Denies Obsessions: Denies ? Judgment and Insight: good judgment with good insight ? Mood & Affect: anxious with congruent, full affect ? Orientation: oriented to person, place, time ? Attention/Concentration: intact ? Memory: grossly intact ? Language: no unusual or inappropriate language ? Fund of Knowledge: appropriate for education IMPRESSIONS A 58yo female with a history of diagnoses of depression with psychosis, anxiety presents for long-term depression. It appears that she's suffering from a severe major depressive disorder without psychosis (PHQ9 of 20 which has been confirmed during the interview today). Given the characteristics ofher depressed mood, it's likely that she also has a persistent depressive disorder and is going thro ugh double depression currently. In addition, admits to seasonal component to her mood, seasonal light therapy is strongly recommended. Meanwhile, her anxiety has been prominent since her teenager years, raising the strong possibility of generalized anxiety disorder. Endorses muscle tension, restlessness, anxiety, irritability, sleepdisturbance, concentration disturbance. It's notable that some of the symptoms overlap with diabetes and its complications. Pt may respond most favorably to the combination treatments of anxiety and diabetes. Also, psychotherapy is strongly encouraged as well. Recent stressors include the deaths of her granddaughter, kklzcu-co-swo, father, disruptive behavior of her granddaughter (living together) and her medical condition. This is another area where psychotherapy is much needed. RECOMMENDATIONS: 1. For medication, 1. Consider further uptitration of escitalopram with QTc monitoring 2. Consider augmenting with buspirone, carbamazepine, lamotrigine, liothyronine, mirtazapine (careful monitoring of metabolic side effects), nefazodone. 3. Consider MAOIs (ideally to be done by psychiatrist) 2. Consider light box therapy/joel simulator for winter (cet.org) 3. Consider trazodone or low-dose doxepin (10mg) for sleep disturbance 4. Referral to psychotherapy 5. Referral to [facility] psychiatry (done by me) 6. Would recommend against benzodiazepines 7. Screening labs to include thyroid panel, B12, folate, CBC, CMP, iron studies if deemed appropriate. 8. We would be happy to see Roxann Ceja again if these recommendations prove not to be helpful, or if there are additional questions. Thank you for this interesting consultation. documented in this encounter Plan of Treatment Upcoming Encounters Date Type Department Care Team (Late st Contact Info) Description 05/17/2024 2:30 PM EST Office [place] [phone] Alcides Bonilla MD [facility] [place] [address] 04/06/2049 9:00 AM EST Hospital Encounter [place] [address] Harry Guerrero MD [facility] [address] [place] [address] Scheduled Referrals Name Type Priority Associated Diagnoses Order Schedule Referral to Psychiatry Outpatient Referral Routine Major depressive disorder, recurrent episode, severe, without mention of psychotic behavior Dysthymia JERALD (generalized anxiety disorder) Seasonal affective disorder Ordered: 01/30/2014 documented as of this encounter Visit Diagnoses Diagnosis Major depressive disorder, recurrent episode, severe, without mention of psychotic behavior- Primary Dysthymia Dysthymic disorder JERALD (generalized anxiety disorder) Generalized anxiety disorder Seasonal affective disorder Other specified episodic mood disorder documented in this encounter Care Teams Photographic Equipment Assembler Relationship Specialty Start Date End Date Nayla Miramontes MD [facility] [address] [place] [address] PCP - General 05/21/11 05/10/21 documented as of this encounter
--- OUTSIDE RECORDS SUMMARY | 2024-03-07 19:01 | XMS_ITS | Encounter Summary ---
Author Organization [facility] Address [facility] [place] [address] Care Team Providers Care Show Jumping Instructor Name Role Phone Nayla Miramontes MD Primary Care Provider Reason for Referral * Physical Therapy (Routine) - Closed by system - Referral Specialty Diagnoses / Procedures Referred By Contac t Referred To Contact Physical Therapy Diagnoses Muscular deconditioning Brenda Willoughby MD [facility] [place] [address] Referral ID Status Reason Start Date Expiration Date Visits Requested Visits Authorized [id number] Closed by system - Referral Evaluate and Treat 02/09/2014 08/08/2014 1 1 Encounter Details Date Type Department Care Team (Late st Contact Info) Description 02/09/2014 10:15 AM EST [place] [address] Brenda Willoughby MD [facility] [place] [address] Muscular deconditioning Discharge Disposition: Home Social History Tobacco Use [...] Time Taken Comments Blood Pressure 143/65 02/09/2014 10:14 AM EST Pulse 86 02/09/2014 10:14 AM EST Temperature - - Respiratory Rate - - Oxygen Saturation - - Inhaled Oxygen Concentration - - Weight 90.3 kg (199 lb) 02/09/2014 10:14 AM EST Height 167.6 cm (5' 6) 02/09/2014 10:14 AM EST Body Mass Index 32.12 02/09/2014 10:14 AM EST documented in this encounter Progress Notes * Brenda Willoughby MD - 02/09/2014 10:26 AM EST History of present illness: The patient is a 58 year old right handed female with a history of multiple medical problems who presents for evaluation of cognitive decline. The patient is seen in consultation at the request of Dr. Darryl Burgos. She reports that since an episode of DKA (during which she was in a diabetic coma for 5 days), she has had a decline in episodic memory: she frequently loses items around the home, demonstrates repetitive questioning, has difficulty following and/or remembering plots of movies, tv shows. No retrograde memory loss. She has frequent lapses in concentration and attention (loses her train of thought,wanders into a room and forgets why). She also notes that speech has become less fluent over the past several years. She frequent word finding difficulty and feels her speech is hesitant. She has difficulty with multitasking because she will get distracted or forget intentions while performing another task. She feels very distractible, has problems with attention and focus. She denies problems with objectrecognition, facial recognition, denies getting lost, difficulties with reasoning/judgement. She ismarkedly depressed and ruminates on the of her grand daughter. No delusions, hallucinations. No history of seizures or head injuries. Denies any fluctuations in consciousness/cognition, gait disturbances, difficulty with bowel or bladder, tremor, rigidity/stiffness, orthostasis, syncope. Denies sleep problems. No snoring, but sleep is very poor: she wakes frequently and has trouble going back to sleep. Feels fatigued, both mentally and physically, thoughout the day. Sleep is not restful. She underwent formal neuropsychological testing several months ago and it revealed difficulty withmemory, attention, executive function, and motor skills, suggestive of frontotemporal and subcortical systems dysfunction. Patient Active Problem List Diagnosis Code ??? [...] ??? PDR (proliferative diabetic retinopathy) 250.50, 362.02 History Social History ??? Marital Status: Spouse Name: N/A Number of Children: N/A ??? Years of Education: N/A Occupational History ??? Not on file. Social History Main Topics ??? Smoking status: Former Smoker Quit date: 05/06/1984 ??? Smokeless tobacco: Never Used ??? Alcohol Use: No Comment: once a year ??? Drug Use: No ??? Sexually Active: Other Topics Concern ??? Not on file Social History Narrative ??? No narrative on file Family History Problem Relation Age [...] Alcohol Abuse Sister ??? Alcohol Abuse Brother Allergies Allergen Reactions ??? Codeine Phosphate Nausea [...] daily. Faxed pump and supply order to [employer] at [phone]. Dx Code: 250.01 100 each 12 ??? [...] sets every 3 days Manually fax to [employer] Diabetes 600 each 3 ??? insulin glargine (LANTUS) 100 unit/mL vial injection Inject 18 Units subcutaneously daily. 1 vial = 10ml = 1,000 units Indications: Type 1 Diabetes Mellitus 10 mL 5 ??? melatonin 3 mg Tab Take 3 mg by mouth nightly. ??? MULTI-VITAMIN ORAL Take 1 tablet by mouth daily. ROS: a 12 pt ROS was conducted and is negative except that mentioned in HPI Physical Examination: General: NAD, well nourished Psychiatry: Mood and affect seemed appropriate today She had a very dry mouth which contributed to the perception of her slurring her words (she takes flexeril) CRANIAL NERVES: Visual marin are intact, extra-ocular movements intact, face and smile are symmetric. CEREBELLAR/COORDINATION/GAIT: gait is normal and steady, Normal fine motor movements in upper and lower extremities bilaterally. Impression and recommendations: 58 year old right handed female with a history of multiple medical problems who presents for evaluation of cognitive decline. Neuropsych testing revealed difficulty with memory, attention, executive function, and motor skills, suggestive of frontotemporal and subcortical systems dysfunction. I personally reviewed the brain MRI and it revealed very mild bilateral hippocampal atrophy, mild bilateral anterior temporal atrophy, mild to moderate bifrontal atrophy, and mild biparietal atrophy. Suspect that there are multiple etiologies for her memory loss, most notably her metabolic abnormalities (poorly controlled diabetes: hyper and hypoglycemia can affect the hippocampus and subcortical structures) and her mood disorder. Additionally, poor sleep, medications(neurontin, flexeril) can affect mentation. Non- pharmacologic methods of memory management and improvement were discussed extensively. We discussed the importance of external aids as memory guides (no tepads, iphones for note taking), the importance of habit and routine, as well as the importance ofdiet, exercise and continued social/cognitive stimulation. I would recommend that she receive physical therapy as she is quite inactive at baseline and has a good deal of pain from psoriatic arthritis that is preventing her from initiating her own exercise regimen. I provided her with an external re ferral so she can have this performed closer to home in [facility]. I also recommend a sleep study (not ordered today) given poor sleep maintenance, 30 lb weight gain, dry mouth in the morning. Recommend that she avoid flexeril. I agree with continued psychiatric care and management of her antidepressant regimen as her mood disorder likely contributes significantly to her cognitive problems. She should have repeat neuropsychological testing at one year to evaluate for further decline. Presently, I see nothing further I can contribute from a neurological perspective, as she is already receiving excellent medical and psychiatric care, but I am happy to see her back should any further questio ns or concerns arise. PCP or referring clinician can heck TSH and B12 with her next blood draw. documented in this encounter Plan of Treatment Upcoming Encounters Date Type Department Care Team (Late st Contact Info) Description 05/17/2024 2:30 PM EST Office [place] [address] Alcides Bonilla MD [facility] [place] [address] 04/06/2049 9:00 AM EST Hospital En[place] [phone] Harry Guerrero MD [facility] DR GASTROENTEROLOGY [place] [address] Scheduled Referrals Name Type Priority Associated Diagnoses Orde r Schedule Referral to Physical Therapy Outpatient Referral Routine Muscular deconditioning Ordered: 02/09/2014 documented as of this encounter Visit Diagnoses Diagnosis Muscular deconditioning Muscular wasting and disuse atrophy, not elsewhere classified documented in this encounter Care Teams Show Jumping Instructor Relationship Specialty Start Date End Date Nayla Miramontes MD [address] [facility] [place] [address] [place] [address] PCP - General 05/21/11 05/10/21 documented as of this encounter
--- OUTSIDE RECORDS SUMMARY | 2024-03-07 19:01 | XMS_ITS | Encounter Summary ---
Author Organization [facility] Address [facility] [place] [address] Care Team Providers Care Electronics Maintenance Technician Name Role Phone Nayla Miramontes MD Primary Care Provider [phone] Encounter Details Date Type Department Care Team (Latest Contact Info) Description 03/13/2014 10:14 AM EST - 03/13/2014 11:59 PM [facility] Hospital [place] [address] Radha Booker MD [facility] [place] [address] Type 1 diabetes mellitus with hypoglycemia and without coma Discharge Disposition: Home Social History Tobacco Use [...] CELECOXIB (CELEBREX ORAL) Take by mouth. 7 Adalimumab (HUMIRA PEN) 40 mg/0.8 mL [...] daily. Faxed pump and supply order to [facility] at [phone]. Dx Code: 250.01 100 each 12 08/08/2013 [...] sets every 3 days Manually fax to [facility] 600 each 3 05/30/2011 5 insulin [...] 2:30 PM EST Office Visit [place] [address] Alcides Bonilla MD [facility] [place] [address] 04/06/2049 9:00 AM EST Hospital Encounter [place] [phone] Harry Guerrero MD [facility] [place] [address] documented as of this encounter Procedures Procedure Name Priority Date/Time Associated Diagnosis Comments HEMOGLOBIN A1C STAT 03/13/2014 10:24 AM EST Type 1 diabetes mellitus with hypoglycemia and without coma documented in this encounter Results * (ABNORMAL) Hemoglobin A1c (03/13/2014 10:24 AM EST) Hemoglobin A1c 8.7(H) <=5.6 % ISABEL Webber [facility] Comment: Reference Range: 4.3 - 5.6% 5.7 [...] Mellitus, Diabetes Care 2013; 36: Suppl. 1, R87-50 Estimated Average Glucose 203 mg/dL [facility] Comment: eAG equivalents for HbA1c percentages: HbA1c(%) ?eAG(mg/dL) 6.0 ?126 6.5 ?140 7.0 ?154 7.5 ?169 8.0 ?183 8.5 ?197 9.0 ?212 9.5 ?226 10.0 ? 240 Limitations: The eAG calculation has not been validated on women, individuals below 18 years old and above 70 years old, and individuals with hemoglobinopathies. Additional resources are available on the ADA website: http://Filao.com/DHMCadacalc Rich MCDANIEL, Brenda J, Wallace R, et al. ??Translating the A1C assay into estimated average glucose values. ??Diabetes Care 2008:31(8):6798-5066. Blood specimen (specimen) 03/13/2014 10:24 AM EST 03/13/2014 10:32 AM EST Narrative Resulting Agency Comment Spec In Lab Radha Booker MD CHEMISTRY ORDERAB LES [facility] documented in this encounter Visit Diagnoses Diagnosis Type 1 diabetes mellitus with hypoglycemia and without coma Type I (juvenile type) diabetes mellitus with other specified manifestations, not stated as uncontrolled documented in this encounter Care Teams Electronics Maintenance Technician Relationship Specialty Start Date End Date Nayla Miramontes MD [address] [place] [address] PCP - General 05/21/11 05/10/21 documented as of this encounter
--- OUTSIDE RECORDS SUMMARY | 2024-03-07 19:01 | XMS_ITS | Encounter Summary ---
Author Organization [facility] [address] Care Team Providers Care Java J2Ee Application Developer Name Role Phone Nayla Fatima MD Primary Care Provider [phone] Encounter Details Date Type Department Care Team (Late st Contact Info) Description 02/01/2014 5:00 PM EDT Office [place] [address] Chelsey Carlos APRN [facility] [address] [place] [address] Harry Guerrero MD [facility] 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 METHODS Stationary esophageal manometry was performed with the ManoScan 360 ([employer])in a supervised setting after verbal consent and after topical anesthesia to the nares. This systemuses 36 individual circumferential solid state sensors spaced 1 cm apart. The outer diameter of theprobe is 4.2 mm. Length, resting pressure, pressure inversion point (PIP),and relaxation of the lower esophageal sphincter (LES) was measured. The high pressure zone of the upper esophageal sphincter(UES) was measured. Water swallows were provided after a 5 minute accommodation period to assess LES function and function of the esophageal body. FINDINGS LES (lower esophageal sphincter) Distal border of LES identified at 41 cm. Proximal border of LES identified at 37.5 cm. Basal pressure 30 mmHg. Water Swallows On 11 swallows, LES relaxation noted; residual pressure was 26 mmHg (normal is less than or equal to 13 mmHg or less). BODY OF ESOPHAGUS Water Swallows: 11 Transmitted (peristaltic): 0 Not Transmitted: 0 Simultaneous: 0 Poorly Propagated: 2 UES (upper esophageal sphincter) Identified at 19 cm and extended to 17 cm. UES resting pressure 41 mmHg; relaxation complete. IMPRESSION 1. Normal LES resting pressure. 2. Incomplete LES relaxation. 3. Normal UES resting pressure. 4. Normal UES relaxation. 5. Severe, ineffective esophageal motility bordering on motor failure given that only 2 of 11 swallows were partially peristaltic. RECOMMENDATION These findings raise the issue of evolving achalasia given incomplete LES relaxation and severe IEMbordering on motor failure. Although 2 swallows were partially peristaltic, they were quite weak. Arecent barium swallow on 01/17/14 showed incomplete emptying of the esophagus with tapering of the GE junction which raises the issue of evolving achalasia. Upper endoscopy in April 2012 did not show any evidence of mechanical obstruction. The patient will be contacted and, per prior discussions with Dr. Chavez and Ms. Tamanna Nguyen APRN, the patient will be scheduled for upper endoscopy with Botox injection of the esophagus. This approach is both therapeutic and diagnostic. Harry Guerrero, PhD, MD social media analyst Section of Gastroenterology and Hepatology [facility] [place] [address] V: [phone] F: [phone] FLEX/meenakshi CC/EC: PCP - staff msg copy 02/06/14 Sonja Chavez MD - staff msg copy 02/06/14 Tamanna Nguyen APRN - staff msg copy 02/06/14 Ning Artis - staff msg copy 02/06/14 documented in this encounter Plan of Treatment Upcoming Encounters Date Type Department Care Team (Late st Contact Info) Description 05/17/2024 2:30 PM EST Office [place] [address] Alcides Bonilla MD [facility] [place] [address] 04/06/2049 9:00 AM EST Hospital Encounter [place] [address] Harry Guerrero MD [facility] [place] [address] documented as of this encounter Visit Diagnoses Diagnosis Difficulty in swallowing- Primary Dysphagia, unspecified documented in this encounter Care Teams Java J2Ee Application Developer Relationship Specialty Start Date End Date Nayla Fatima MD [address] [place] [address] [address] [place] [address] PCP - General 05/21/11 05/10/21 documented as of this encounter
--- OUTSIDE RECORDS SUMMARY | 2024-03-07 19:01 | XMS_ITS | Encounter Summary ---
Author Organization [facility] [place] [address] Care Team Providers Care Network Relay Tester Name Role Phone Nayla Miramontes MD Primary Care Provider [phone] Encounter Details Date Type Department Care Team (Late st Contact Info) Description 02/14/2014 Telephone Gastroenterology at [facility] [place] [address] Tamanna Nguyen APR[place] [facility] [place] [address] Social History Tobacco Use Types Packs/Day Years [...] Telephone Encounter - Tamanna Nguyen APRN - 02/14/2014 3:22 PM EST Contacted Mrs Ceja regarding colonoscopy (refer to ed) and bowel regimen. She reports that bowel habits improved at this time. Having a BM qod. Stools are soft formed. Admits to straining and incomplete evacuation of stool. Recommend Dulcolax 10 mg [place] qod prn. Consider oam and referral to PT. documented in this encounter Plan of Treatment Upcoming Encounters Date Type Department Care Team (Late st Contact Info) Description 05/17/2024 2:30 PM EST Office [place] [address] Alcides Bonilla MD [facility] [place] [address] 04/06/2049 9:00 AM EST Hospital En[place] [address] Harry Guerrero MD [facility] [place] [address] documented as of this encounter Visit Diagnoses Not on filedocumented in this encounter Care Teams Network Relay Tester Relationship Specialty Start Date End Date Nayla Miramnotes MD [facility] [address] [place] [address] PCP - General 05/21/11 05/10/21 documented as of this encounter
--- OUTSIDE RECORDS SUMMARY | 2024-03-07 19:01 | XMS_ITS | Encounter Summary ---
Author Organization [facility] [place] [address] Care Team Providers Care Product Representative Name Role Phone Nayla Miramontes MD Primary Care Provider [phone] Encounter Details Date Type Department Care Team (Late st Contact Info) Description 09/05/2014 6:00 PM EDT Office [place] [address] Harry Guerrero MD [facility] 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 METHODS Stationary anorectal manometry was performed with the ManoScan 360 ([employer]) in a supervised setting after verbal consent. This system uses 256 individual circumferential solid state sensors spaced 1 cm apart. The outer diameter of the probe is 4.2 mm. Length, resting pressure, and relaxation of the lower anal sphincter were measured. The high pressure zone was measured. FINDINGS LES (lower esophageal sphincter) Distal border of LES identified at 35 cm. Proximal border of LES identified at 32 cm. Hiatal hernia present? Y, 3.4 cm Basal pressure respiratory mean pressure 7 mmHg. Residual mean pressure (integrated relaxation pressure) 0 mmHg. BODY OF ESOPHAGUS Water Swallows: 14 Failed: 79%. Panesophageal pressurization 7% Premature: 0% Rapid: 0% Transmitted (peristaltic): 14%. With large breaks: 0 %. With small breaks: 0%. DCI: [id number] (normal is 500 to 5000). Contractile front velocity: 1.9 cm/s. Intrabolus pressure (average maximum): 11.9 mmHg. Distal latency: 5.9. UES (upper esophageal sphincter) Identified at 18 cm and extended to 15.9 cm. UES resting pressure 34 mmHg; residual pressure 6 mmHg. IMPRESSION 1. Hypotensive LES. 2. Normal LES relaxation. 3. Normal UES resting pressure. 4. Normal UES relaxation. 5. Severe, ineffective esophageal motility using both standard classification and Kirkland v3.0 classification. Harry Guerrero, PhD, MD litigation manager, [employer] Chief, Section of Gastroenterology and Hepatology [facility] [place] [address] V: [phone] F: [phone] FLEX/meenakshi CC/EC: PCP - staff msg copy 09/11/14 Tamanna Nguyen APRN - staff msg copy 09/11/14 documented in this encounter Plan of Treatment Upcoming Encounters Date Type Department Care Team (Late st Contact Info) Description 05/17/2024 2:30 PM EST Office Visit G[place]ology [place] [address] Alcides Bonilla MD [facility] [place] [address] 04/06/2049 9:00 AM EST Hospital Encounter [place] [address] Harry Guerrero MD [facility] [place] [address] documented as of this encounter Visit Diagnoses Diagnosis Difficulty in swallowing Dysphagia, unspecified documented in this encounter Care Teams Product Representative Relationship Specialty Start Date End Date Nayla Miramontes MD [facility] [address] [place] [address] PCP - General 05/21/11 05/10/21 documented as of this encounter
--- OUTSIDE RECORDS SUMMARY | 2024-03-07 19:01 | XMS_ITS | Encounter Summary ---
Author Organization [facility] [place] [address] Care Team Providers Care Tattoo Identifier Name Role Phone Nayla Miramontes MD Primary Care Provider [phone] Reason for Visit * Reason Onset Date Comments Procedure 08/09/2014 Encounter Details Date Type Department Care Team (Latest Contact Info) Description 08/04/2014 3:00 PM EDT Clinical Support [place] [address] CLINIC, Ethan Aragon MD [facility] [place] [address] Combined forms of age-related cataract of both [...] as of this encounter Progress Notes * Ethan Rodriguez MD - 08/09/2014 9:17 AM EDT Please see procedure note for details. Ethan Rodriguez MD documented in this encounter Miscellaneous Notes * Addendum Note - Ethan Rodriguez MD - 08/09/2014 9:17 AM EDTAddended by: ETHAN RORDIGUEZ on: 08/09/2014 09:17 AM Modules accepted: Level of Service, SmartSet documented in this encounter Plan of Treatment Upcoming Encounters Date Type Department Care Team (Late st Contact Info) Description 05/17/2024 2:30 PM EST Office Visit [place] [phone] Alcides Bonilla MD [facility] [place] [address] 04/06/2049 9:00 AM EST Hospital Encounter [place] [address] Harry Guerrero MD [facility] DR [place] [address] documented as of this encounter Procedures Procedure Name Priority Date/Time Associated Diagnosis Comments [id number] CALC BY LASER INTERFEROMETRY - OU - BOTH EYES Routine 08/09/2014 9:15 AM EDT Combined forms of age-related cataract of both eyes documented in this encounter Results * [id number] CALC BY LASER [id number] EYES (08/09/2014 9:15 AM EDT) Anatomical Region [...] ?? OD ??23.87 ??IOL-M ? OS ??23.64 Ethan Rodriguez MD OPHTHALMOLOGY SERVIC ES ORDERABLES documented in this encounter Visit Diagnoses Diagnosis Combined forms of age-related cataract of both eyes Other and combined forms of senile cataract documented in this encounter Care Teams Tattoo Identifier Relationship Specialty Start Date End Date Nayla Miramontes MD [address] [place] [address] PCP - General 05/21/11 05/10/21 documented as of this encounter
--- OUTSIDE RECORDS SUMMARY | 2024-03-07 19:01 | XMS_ITS | Encounter Summary ---
Author Organization Formerly [facility] [place] [address] Care Team Providers Care Inspector Screen Printing Name Role Phone Nayla Miramontes MD Primary Care Provider [phone] Reason for Visit * Reason Comments Diabetes Encounter Details Date Type Department Care Team ([facility] st Contact Info) Description 03/13/2014 10:00 AM EST Office [place] [address] Roseanne Kay [facility] [address] ENDO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) Discharge Disposition: Home Social History Tobacco Use [...] Sign Reading Time Taken Comments Blood Pressure 126/55 03/13/2014 10:55 AM EST Pulse 83 03/13/2014 10:55 AM EST Temperature - - Respiratory Rate - - Oxygen Saturation - - Inhaled Oxygen Concentration - - Weight 90.7 kg (200 lb) 03/13/2014 10:55 AM EST Height 167.6 cm (5' 6) 03/13/2014 10:55 AM EST Body Mass Index 32.28 03/13/2014 10:55 AM EST documented in this encounter Patient Instructions * Patient Instructions* Roseanne Kay APRN - 03/13/2014 11:38 AM EST Count calories one day per week And daily physical activity As much as possible documented in this encounter Progress Notes * Roseanne Kay APRN - 03/13/2014 1:17 PM EST DATE OF VISIT: 03/13/2014 REASON FOR VISIT: Followup type 1 DM in continued poor control with widely fluctuating glucose levels. Has complications of retinopathy, neuropathy, and gastroparesis. BRIEF HISTORY: Presents and discusses that her glucose levels continue to be all over the place. States she has a planned Botox injection at the base of her Esophagus. She states the gastroparesis makes it very difficult to try to manage glucose levels. DATE OF DIAGNOSIS OF DIABETES: 1970. DIABETES REGIMEN: MiniMed Paradigm 523 pump. Basal rates 12 a.m., 0.7; 4 a.m., 0.775; 7:30, 0.7; 3:30, 0.75; 7 p.m., 0.75. Total basal 17.5. Target glucose 100 to 130. Insulin to carb 1:12. Correction factor 30. PREVENTION STRATEGIES: She does not take a statin. She is followed closely by the mica builder. Did have a flu vaccine. REVIEW OF SYSTEMS: Depression and Mood: States she will be receiving disability. She is frustrated with her weight. Wonders if she would be a candidate to take Belviq. Eyes: does the driving. Has poor vision, has complication of retinopathy. No recent headaches or chest pain or shortness of breath. GI Symptoms: Has appointment scheduled next month with medical fee clerk. Followed closely for gastroparesis. Extremities: Takes gabapentin for neuropathy. SBGM: Five to six times a day. Total daily dose of insulin, up to 42 units. PHYSICAL EXAMINATION: Appearance: She ambulates somewhat cautiously. She is overweight, pleasant and talkative with good eye contact. Weight 200 pounds, she has gained 5 pounds since January. Blood pressure 126/55. Eyes: Scars noted with green light exam. Neck: No thyromegaly or lymphadenopathy. Heart: Regular rate and rhythm. No murmurs. Lungs are clear to auscultation. Feet: Skin is dry. Pulses are normal. Neuro: Normal sensation to 10 g of pressure. LABORATORY DATA: Hemoglobin A1c 8.7%, previous was 9.3%. IMPRESSION AND PLAN: Diabetes mellitus type 1 with complications. The patient states she has been advised in the past that she most likely would not be able to lower her hemoglobin A1c closer to 7.0% because of the frequency of low glucose levels. She has needed assistance from a family member to manage glucose levels recently related to hypoglycemia. She did not find using the sensor helpful. Reviewed her 24-hour meal plan. She states she is on a soft diet. Breakfast is two slices of white toast with a small amount of Smart Balance margarine and small amount of marmalade. Morning snack is a Glucerna drink. Lunch is soup, occasionally is able to eat some crackers. Afternoon snack is applesauce. Evening meal was a milkshake. She states she makes a lot of milkshakes and yogurt shakes. PHYSICAL ACTIVITY: Not much related to pain in her shoulders. States she will be having physical therapy, which she has had in the past. The patient is frustrated with gaining 5 pounds since January. Unfortunately, she is not a candidate for weight loss medication at this time. She is working with a medical fee clerk for her gastroparesis and constipation. Blood pressure is at goal. Hypothyroidism, she is at the correct hormone replacement dose. Return to office in 90 days, will check hemoglobin A1c, CMP, HDL, DLDL, and microalbumin. She declines another appointment with NIRAV BAUGH at this time. The patient's past medical history is significant for severe DKA that left her Unresponsive. Recent Results (from the past 72 hour(s)) HEMOGLOBIN A1C Result Value Range Hemoglobin A1C 8.7 (*) <=5.6 % Est Avg Gluc 203 documented in this encounter Plan of Treatment Upcoming Encounters Date Type Department Care Team (Late st Contact Info) Description 05/17/2024 2:30 PM EST Office [place] [address] Alcides Bonilla MD [facility] [place] [place] [address] 04/06/2049 9:00 AM EST Hospital [place] [address] Harry Guerrero MD [facility] [address] GASTROENTER[place] [address] documented as of this encounter Results * Microalbumin, urine, random (06/19/2014 10:10 AM EDT) Creatinine, Urine 132 mg/dL CE RNER MILLENNIUM Albumin, Urine 20.4 mg/L CERNE R MILLENNIUM Albumin / Creatinin Ratio, Urine 15 mcg/mg Cr [facility]ILL[facility] Comment: Reference Range* Random collection (mcg/mg creatinine) Normal ?<30 Microalbuminuria ?? 30 - 300 Clinical Albuminuria ?? >300 *[place] Diabetes Association. Diabetic Nephropathy. Diabetes Care 1997;(Suppl 1):S24-S27 Exercise within 24 hour, infection, fever, CHF, marked hyperglycemia, and marked hypertension may elevate urinary albumin excretion over baseline values. Urine specimen (specimen) 06/19/2014 10:10 AM EDT 06/19/2014 10:32 AM EDT Narrative Resulting Agency Comment Spec In Lab Darryl Barrera MD URINE ORDERABLES [facility] * LDL Cholesterol, Direct (06/19/2014 9:55 AM EDT) LDL Cholesterol, Direct 88 <=99 mg/dL CERNER MILLENNIUM Comment: The National Cholesterol Education Program (NCEP) has set the following guidelines for LDL Cholesterol: Reference range: ?? Optimal: ?<100 mg/dL ?? Near Optimal/Above Optimal: ?? 100-129 mg/dL ?? Borderline high: ?130-159 mg/dL ?? High: ? 160-189 mg/dL ?? Very high: ?>au=395 mg/dL MARIANA 2001: 285(19):6653-2169 Blood specimen (specimen) 06/19/2014 9:55 AM EDT 06/19/2014 10:09 AM EDT Narrative Resulting Agency Comment Spec In Lab Darryl Barrera MD CHEMISTRY ORDERABLES [facility] * HDL/Cholesterol Profile (06/19/2014 9:55 AM EDT) Cholesterol, Total 163 <=199 mg/dL [facility] Comment: Recommendations of the NCEP Adult Treatment Panel for the following risk cutoff thresholds for the [place] population: Desirable: <200 mg/dL Borderline High: 200-239 mg/dL High: > or = 240 mg/dL HDL Cholesterol 67 >=40 mg/dL [facility] Comment: Reference range: ??Low HDL: ?? < 40 mg/dL ??Normal: ?40-60 mg/dL ??Desirable: > 60 mg/dL MARIANA 2001; 285(19):2118-7552 Cholesterol/HDL Ratio 2.4 ratio [facility] Comment: A Cholesterol to HDL ratio below 4:1 is desirable. ??Studies suggest that increased CAD risk occurs at ratios above 5 for females and above 6 for men. ? [employer] Association ??(http://www.americanheart.org) ? Uma Int Med, 1994; 121:641 ? AM J Med, 1998; 105(1A):48S Blood specimen (specimen) 06/19/2014 9:55 AM EDT 06/19/2014 10:09 AM EDT Narrative Resulting Agency Comment Spec In Lab Darryl Barrera MD CHEMISTRY ORDERABLES Performing Organization Address [facility] Co de Phone Number [facility] * (ABNORMAL) TSH (06/19/2014 9:55 AM EDT) Thyroid Stimulating Hormone 0.15(L) 0.27 - 4.20 mcIU/mL [facility] Blood specimen (specimen) 06/19/2014 9:55 AM EDT 06/19/2014 10:09 AM EDT Narrative Resulting Agency Comment Spec In Lab Darryl Barrera MD CHEMISTRY ORDERABLES Performing Organization Address [facility] Co de Phone Number [facility] * (ABNORMAL) Hemoglobin A1c (06/19/2014 9:55 AM EDT) Hemoglobin A1c 9.5(H) 4.3 - 5.6 % [facility] Comment: Reference Range: 4.3 - 5.6% [...] Mellitus, Diabetes Care 2013; 36: Suppl. 1, Z77-96 Estimated Average Glucose 226 mg/dL [facility] Comment: eAG equivalents for HbA1c percentages: HbA1c(%) ?eAG(mg/dL) 6.0 ?126 6.5 ?140 7.0 ?154 7.5 ?169 8.0 ?183 8.5 ?197 9.0 ?212 9.5 ?226 10.0 ? 240 Limitations: The eAG calculation has not been validated on women, individuals below 18 years old and above 70 years old, and individuals with hemoglobinopathies. Additional resources are available on the ADA website: [email or web address] Rich MCDANIEL, Bredna J, Wallace R, et al. ??Translating the A1C assay into estimated average glucose values. ??Diabetes Care 2008:31(8):0659-7607. Blood specimen (specimen) 06/19/2014 9:55 AM EDT 06/19/2014 10:09 AM EDT Narrative Resulting Agency Comment Spec In Lab Darryl Barrera MD CHEMISTRY ORDERABLES [facility] * (ABNORMAL) Comprehensive metabolic panel (non-fasting) (06/19/2014 9:55 AM EDT) [facility] Glucose 244(H) 60 - 199 mg/dL [facility] MILLENNI[facility] Comment:Diabetes: >=200 mg/d L plus symptoms Blood Urea Nitrogen 21(H) 8 - 18 mg/dL CERNER MILLENNIUM Creatinine 0.94 0.70 - 1.20 mg/dL [facility] MILLENNIUM Comment: Please note that the pediatric reference intervals supplied above were not validated at [facility]. Results from pediatric patients should be interpreted [...] the following links into your internet browser. 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
--- OUTSIDE RECORDS SUMMARY | 2024-03-07 19:01 | XMS_ITS | Encounter Summary ---
Author Organization [facility] [place] [address] Care Team Providers Care Associate Juvenile Court Judge Name Role Phone Nayla Miramontes MD Primary Care Provider [phone] Encounter Details Date Type Department Care Team (Late st Contact Info) Description 04/24/2014 Surgery [place] [address] Harry Guerrero MD [facility] [place] [address] EGD, UPPER GI ENDOSCOPY (WRVU 2.09) Social History Tobacco Use Types Packs/Day Years [...] of this encounter Progress Notes * Alexis Kincaid RN - 04/21/2014 12:21 PM EST ENDOSCOPY PATIENT HISTORY Name: ROXANN HEBERT : 1955 Age: 58 y.o. [address]: [address] [place] [phone] (home) Mobile: No relevant phone numbers on file. Referring Provider: Tamanna Nguyen Referral Procedure: EGD Sedation type: anesthesia Allergies: Allergies Allergen Reactions ??? Codeine Phosphate Nausea Only ??? Propoxyphene N-Acetaminophen Nausea Only Problem list: Patient Active Problem List Diagnosis Code ??? [...] ??? PDR (proliferative diabetic retinopathy) 250.50, 362.02 Past Medical History: Past Medical History Diagnosis Date ??? Diabetes mellitus ??? Thyroid disease ??? Skin disease ??? GERD (gastroesophageal reflux disease) ??? Hyperlipidemia ??? Hypertension ??? Anxiety ??? Asthma ??? Cortical cataract 05/05/2011 ??? PDR (proliferative diabetic retinopathy) 05/25/2011 Past Surgical History: Past Surgical History Procedure Laterality Date ??? Upper gi endoscopy, exam 04/25/2011 UPPER GI ENDOSCOPY performed by MARIA DEL CARMEN BOB at [facility] ENDOSCOPY ??? Upper gi endoscopy, biopsy 04/27/2012 UPPER GASTROINTESTINAL ENDOSCOPY,WITH BIOPSY SINGLE OR MULTIPLE performed by Luis Bucio MD [facility] ENDOSCOPY ??? Retinal laser surgery ??? Vitrectomy,focal laser rx retina 05/16/2013 OS VITRECTOMY, PARS PLANA, LASER performed by Dany Young MD at [facility] MAIN OR ??? Finger surgery ??? Colonoscopy, diagnostic 09/13/2013 COLONOSCOPY, DIAGNOSTIC performed by Marie Zamora MD at [facility] ENDOSCOPY ??? Colonoscopy, diagnostic 01/10/2014 COLONOSCOPY, DIAGNOSTIC performed by Marie Zamora MD at [facility] ENDOSCOPY Medications: Prior to Admission medications Medication Sig Start Date End Date Taking? Authorizing Provider Adalimumab (HUMIRA PEN) 40 mg/0.8 mL Pen Injector Kit Inject 0.8 mLs subcutaneously every 14 days. 03/14/14 Darryl Burgos MD diphenhydrAMINE/aluminum-magnesium hydroxide/lidocaine (BMX) 1:1:1 Oral Suspension Take 5-10 mLs bymouth 3 times daily as needed. 02/09/14 Tamanna Nguyen APRN escitalopram oxalate (LEXAPRO) 20 mg Tablet Take 60 mg by mouth daily. Provider, Historical lisinopril (PRINIVIL;ZESTRIL) 20 mg Tablet Take 1 tablet by mouth daily. 12/08/13 Radha Booker MD insulin lispro (HUMALOG) injection Inject 65 Units subcutaneously continuous. Via insulin pump Provider, Historical trimethobenzamide (TIGAN) 300 mg capsule Take 1 capsule by mouth 4 times daily as needed. 10/25/13 Tamanna Nguyen APRN lubiprostone (AMITIZA) 24 mcg capsule Take 1 capsule by mouth 2 times daily (with meals). 10/25/13 Tamanna Nguyen APRN ondansetron (ZOFRAN-ODT) 4 mg oral disintegrating tablet Take 1 tablet by mouth every 8 hours as needed for Nausea. 10/25/13 Tamanna Nguyen APRN gabapentin (NEURONTIN) 300 mg capsule Take 3 capsules by mouth nightly. Take 300 mg every morning and 600 mg at bedtime 10/25/13 Tamanna Nguyen APRN bisacodyl (DULCOLAX) [address] 1 suppository rectally daily. 08/15/13 Tamanna Nguyen APRN Diabetic Supplies, Miscellan. Misc Inject 1 each subcutaneously 4 times daily. Faxed pump and supply order to [employer] at [phone]. Dx Code: 250.01 08/08/13 Roseanne Kay APRN cyclobenzaprine (FLEXERIL) 5 mg tablet Take 5 mg in the morning and 10 mg at bedtime. 07/25/13 Darryl Burgos MD adalimumab (HUMIRA) 40 mg/0.8 mL injection Inject 0.8 mLs subcutaneously every 14 days. 07/25/13 Darryl Burgos MD celecoxib (CELEBREX) 100 mg capsule Take 1 capsule by mouth 2 times daily. 02/23/13 Darryl Burgos MD levothyroxine (SYNTHROID) 150 mcg tablet Take 150 mcg by mouth. 5 times a week. Provider, Historical levothyroxine (SYNTHROID) 75 mcg tablet Take 75 mcg by mouth. 2 x's a week Provider, Historical tolterodine (DETROL) 2 mg tablet Take 2 mg by mouth 2 times daily. Provider, Historical Diabetic Supplies, Miscellan. Misc 1 each by Misc.(Non-Drug; Combo Route) route 6 times daily. Diagnosis: 250.91 Change infusion sets every 3 days Manually fax to [employer] Diabetes 05/30/11 Yulisa Feng MD insulin glargine (LANTUS) 100 unit/mL vial injection Inject 18 Units subcutaneously daily. 1 vial =10ml = 1,000 units Indications: Type 1 Diabetes Mellitus 04/29/11 Odalis Ford APRN melatonin 3 mg Tab Take 3 mg by mouth nightly. Provider, Historical MULTI-VITAMIN ORAL Take 1 tablet by mouth daily. Provider, Historical documented in this encounter Plan of Treatment Upcoming Encounters Date Type Department Care Team (Late st Contact Info) Description 05/17/2024 2:30 PM EST Office Visit Gastroenterology at [facility] [place] [address] Alcides Bonilla MD [facility] [place] [place] [address] documented as of this encounter Procedures Procedure Name Priority Date/Time Associated Diagnosis Comments UPPER GI ENDOSCOPY Routine 08/21/2022 11 :19 AM EDT COLONOSCOPY Routine 08/21/2022 11:19 AM EDT UPPER GI ENDOSCOPY Routine 01/01/2016 11 :26 AM EDT EGD, UPPER GI ENDOSCOPY (WRVU 2.09) Dysphagia documented in this encounter Results * UPPER GI ENDOSCOPY (08/21/2022 11:19 AM EDT) UPPER GI ENDOSCOPY [facility] Endoscopy Procedure Date: 08/21/2022 11:19 AM ? Patient Name: Roxann Baxter ? N: [id number] ? Date of : 1955 ? Age: 66 ? Order #: [id number] ? Instrument Name: [id number] ? Procedure: ? Upper GI endoscopy Indications: ? Dyspepsia Providers: ? Kayley Spence MD, Marilee Herbert, ? Amber Yeager, Bob Calvo MD: ?Nayla Miramontes MD Medicines: ? Midazolam 3 mg IV, Fentanyl 100 ? micrograms IV, Benzocaine spray Complications: ? No immediate complications. Procedure: ? [...] cancer, and adverse medication ? reactions. The Endoscope was ? introduced through the mouth, and ? advanced to the third part of ? duodenum The upper GI endoscopy was ? accomplished without difficulty. ? The patient tolerated the procedure ? well. ? Findings: ? The Z-line was irregular. Biopsies were taken with a ? cold forceps for histology. ? Evidence of a Mckinley fundoplication was found in the ? cardia. ? Patchy mildly erythematous mucosa was found in the ? gastric fundus and in the gastric body. Biopsies were ? taken with a cold forceps for histology. ? The examined duodenum was normal. ? Moderate Sedation: ? I was present during the intraservice time as ? documented by the sedation RN. Impression: ?- Z-line irregular. Biopsied. ? - A Mckinley fundoplication was found. ? - Erythematous mucosa in the ? gastric fundus and gastric body. ? Biopsied. ? - Normal examined duodenum. Recommendation: ?- Await pathology results. ? Attending Participation: ? I personally performed the entire procedure. ? I was present during the intraservice time as ? documented by the sedation RN. ? Kayley Spence MD 08/21/2022 11:47:04 AM This report has been signed electronically. Number of Addenda: 0 Note Initiated On: 08/21/2022 11:19 AM PROVATION 08/21/2022 11:1 9 AM EDT Nayla Miramontes MD GENERAL SURGICAL ORD [facility] * COLONOSCOPY (08/21/2022 11:19 AM EDT) COLONOSCOPY [facility] Endoscopy Procedure Date: 08/21/2022 11:19 AM ? Patient Name: Roxann Baxter ? Date of : 1955 ? Age: 66 ? Order #: [id number] ? Instrument Name: Fanny Tacarlos Scope ? Procedure: ? Colonoscopy Indications: ? [...] ? today and in 2018. ? Suggest Nakia for future preps. ? Attending Participation: ? [...] MD GENERAL SURGICAL ORD ERABLES PROVATION * UPPER GI ENDOSCOPY (01/01/2016 11:26 AM EDT) Pathologist [facility] UPPER GI ENDOSCOPY [facility] Endoscopy Procedure Date: 01/01/2016 11:26 AM ? Patient Name: Roxann Baxter ? Date of : 1955 ? Age: 60 ? Order #: [id number] ? Instrument Name: [id number] ? Procedure: ? Upper GI endoscopy Indications: ? Dysphagia, Follow-up of Giron's ? esophagus, Surveillance for ? malignancy due to personal history of ? Giron's esophagus Patient Profile: ? This is a 60 year old female. Refer ? to note in patient chart for ? documentation of history and physical. Providers: ? Dany Richardson ? Cristel Garnett, Client Support Professional Referring MD: ?Nayla Miramontes MD Medicines: ? Midazolam 2.5 mg IV, Fentanyl 125 ? micrograms IV Complications: ? No immediate complications. Procedure: ? Pre-Anesthesia Assessment: ? - Prior to the procedure, a History ? and Physical was performed, and ? patient medications and allergies ? were reviewed. The patient is ? competent. The risks and benefits of ? the procedure and the sedation ? options and risks were discussed with ? the patient. All questions were ? answered and informed consent was ? obtained. Patient identification and ? proposed procedure were verified by ? the physician, the nurse and the ? household appliances service technician in the pre-procedure area ? in the procedure room. Mental Status ? Examination: alert and oriented. ? Airway Examination: normal ? oropharyngeal airway and neck ? mobility. Respiratory Examination: ? clear to auscultation. CV ? Examination: normal. Prophylactic ? Antibiotics: The patient does not ? require prophylactic antibiotics. ? Prior Anticoagulants: The patient has ? taken no previous anticoagulant or ? antiplatelet agents. ASA Grade ? Assessment: II - A patient with mild ? systemic disease. After reviewing the ? risks and benefits, the patient was ? deemed in satisfactory condition to ? undergo the procedure. The anesthesia ? plan was to use moderate sedation / ? analgesia (conscious sedation). ? Immediately prior to administration ? of medications, the patient was ? re-assessed for adequacy to receive ? sedatives. The heart rate, ? respiratory rate, oxygen saturations, ? blood pressure, adequacy of pulmonary ? ventilation, and response to care ? were monitored throughout the ? procedure. The physical status of the ? patient was re-assessed after the ? procedure. ? The procedure, indications, benefits, ? risks and alternatives were explained ? to the patient. Specifically ? discussed were potential ? complications including, but not ? limited to, bleeding, perforation, ? infection, missing a cancer, and ? adverse medication reactions. The ? Endoscope was introduced through the ? mouth, and advanced to the third part ? of duodenum. The patient tolerated ? the procedure well. The upper GI ? endoscopy was accomplished without ? difficulty. The patient tolerated the ? procedure fairly well. ? Findings: ? The examined esophagus was significantly tortuous. ? There is mucosal changes suggestive of Giron's with ? a variable Z-line and one ulcer as well as erythema ? with moderately severe esophagitis and some minimal ? oozing found 32 to 33 cm from the incisors. Biopsies ? were taken with a cold forceps for histology. Passage ? through the Z-line into the gastric cardia is ? tortuous and suggests possible rotation of hiatal ? hernia. ? An 8-10 cm hiatal hernia with tortuous GE junction ? and possible paraesophageal component to hernia was ? found. The proximal extent of the gastric folds (end ? of tubular esophagus) was approximately 32-33 cm from ? the incisors. The hiatal narrowing was 40 cm from the ? incisors. The Z-line was 32 cm from the incisors. ? Diffuse mildly erythematous mucosa without bleeding ? was found in the gastric antrum. Biopsies were taken ? with a cold forceps for histology. ? Decreased folds were found in the entire duodenum and ? flattening was found in the entire duodenum. Biopsies ? for histology were taken with a cold forceps for for ? evaluation of celiac disease. ? Impression: ?- Tortuous esophagus. ? - Moderately severe reflux and ? erosive esophagitis with variable ? Z-line and ulcer. Biopsied. ? - Large 8-10 cm hiatal hernia. Cannot ? exclude a twist or paraesophageal ? component of hernia. ? - Erythematous mucosa in the antrum. ? Biopsied. ? - Duodenal mucosal changes seen, rule ? out celiac disease. Biopsied. Recommendation: ?- Await pathology results. ? - Continue present medications ? including twice daily acid ron ? (Nexium). ? - Do an upper GI series at ? appointment to be scheduled. ? - Follow-up with Dr. Chavez in Surgery ? to discuss hernia repair vs gastric ? by-pass. ? - Follow an antireflux regimen. This ? includes: ? - Do not lie down for at least 3 to 4 ? hours after meals. ? - Raise the head of the bed 4 to 6 ? inches. ? - Decrease excess weight. ? - Avoid citrus juices and other ? acidic foods, alcohol, chocolate, ? mints, coffee and other caffeinated ? beverages, carbonated beverages, ? fatty and fried foods. ? - Avoid tight-fitting clothing. ? - Avoid cigarettes and other tobacco ? products. ? Attending Participation: ? I personally performed the entire procedure. ? _ Giuseppe Arsh, 01/01/2016 12:53:27 PM Number of Addenda: 0 Note Initiated On: 01/01/2016 11:26 AM [facility]ATION 01/01/2016 11:2 6 AM EDT Nayla Miramontes MD GENERAL SURGICAL ORD [facility] documented in this encounter Visit Diagnoses Diagnosis Dysphagia Dysphagia, unspecified documented in this encounter Care Teams Associate Juvenile Court Judge Relationship Specialty Start Date End Date Nayla Miramontes MD [facility] [address] [place] [address] PCP - General 05/21/11 05/10/21 documented as of this encounter
--- OUTSIDE RECORDS SUMMARY | 2024-03-07 19:02 | XMS_ITS | Encounter Summary ---
[place] [address] Care Team Providers Care Human Performance Consultant Name Role Phone Nayla Miramontes MD Primary Care Provider [phone] Reason for Visit * Reason Comments Prior Authorization Encounter Details Date Type Department Care Team (Late st Contact Info) Description 01/02/2014 Telephone [place] [address] Sierra Diaz, RN DEPT OF GASTROENTEROLOGY Prior Authorization Social History Tobacco Use Types [...] encounter Miscellaneous Notes * Telephone Encounter - Sierra Stoner RN - 01/02/2014 2:58 PM EDT Called patient and pharmacy regarding Nexium 40mg BID and Amitiza 24mcg BIDm Prior Authorizations. Both approved until 12/30/2014 documented in this encounter Plan of Treatment Upcoming Encounters Date Type Department Care Team (Late st Contact Info) Description 05/17/2024 2:30 PM EST Office Visit [place] [address] Alcides Bonilla MD [facility] [place] [address] 04/06/2049 9:00 AM EST Hospital Encounter [place] [address] Harry Guerrero MD [facility] [place] [address] documented as of this encounter Visit Diagnoses Not on filedocumented in this encounter Care Teams Human Performance Consultant Relationship Specialty Start Date End Date Nayla Miramontes MD [facility] [address] L[address]PEZ [facility] [address] [place] [address] PCP - General 05/21/11 05/10/21 documented as of this encounter
--- OUTSIDE RECORDS SUMMARY | 2024-03-07 19:02 | XMS_ITS | Encounter Summary ---
Author Organization [facility] [place] [address] Care Team Providers Care Theology Professor Name Role Phone Nayla Miramontes MD Primary Care Provider Encounter Details Date Type Department Care Team (Late Contact Info) Description 08/25/2013 Orders [place] [phone] Roseanne Kay APRN [facility] 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 [address] documented as of this encounter Results * TSH (11/14/2013 9:13 AM EDT) Thyroid Stimulating Hormone 2.72 0.27 - 4.20 mcIU/mL [facility] Blood specimen (specimen) 11/14/2013 9:13 AM EDT 11/14/2013 9:17 AM EDT Narrative Resulting Agency Comment Spec In Lab Darryl Barrera MD CHEMISTRY ORDERABLES [facility] * (ABNORMAL) Hemoglobin A1c (11/14/2013 9:13 AM EDT) Hemoglobin A1c 9.3(H) <=5.6 % ISABEL R MILLENNIUM Comment: Reference Range: 4.3 ? 5.6% 5.7 ? 6.4% - Increased Risk of Developing Diabetes [...] 36: Suppl. 1, S67-74 Estimated Average Glucose 220 mg/dL [facility] Comment: eAG equivalents for HbA1c percentages: HbA1c(%) ?eAG(mg/dL) 6.0 ?126 6.5 ?140 7.0 ?154 7.5 ?169 8.0 ?183 8.5 ?197 9.0 ?212 9.5 ?226 10.0 ? 240 Limitations: The eAG calculation has not been validated on women, individuals below 18 years old and above 70 years old, and individuals with hemoglobinopathies. Additional resources are available on the ADA website: http://Kudarom.Perfusix/DHMCadacalc Rich MCDANIEL, Brenda J, Wallace R, et al. ??Translating the A1C assay into estimated average glucose values. ??Diabetes Care 2008:31(8):6218-8560. 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
--- OUTSIDE RECORDS SUMMARY | 2024-03-07 19:02 | XMS_ITS | Encounter Summary ---
Author Organization [facility] [place] [address] Care Team Providers Care Dial Mounter Name Role Phone Nayla Miramontes MD Primary Care Provider [phone] Encounter Details Date Type Department Care Team (Late st Contact Info) Description 09/04/2013 Telephone Gastroenterology at [facility] [place] [address] Tamanna Nguyen APRN [facility] [place] [address] Social History Tobacco Use Types Packs/Day Years [...] Telephone Encounter - Tamanna Nguyen APRN - 09/04/2013 11:46 AM EDT Attempted to contact Mrs. Ceja regarding GES~mild delay 17%(normal <10%) at four hours. No answer and left a message with call back number. documented in this encounter Plan of Treatment Upcoming Encounters Date Type Department Care Team (Late st Contact Info) Description 05/17/2024 2:30 PM EST Office Visit [place] [address] Alcides Bonilla MD [facility] [place] [address] 04/06/2049 9:00 AM EST Hospital Encounter [place] [phone] Harry Guerrero MD [facility] DR GASTROENTER[place] [address] documented as of this encounter Visit Diagnoses Not on filedocumented in this encounter Care Teams Dial Mounter Relationship Specialty Start Date End Date Nayla Miramontes MD [facility] ANABELLA LÓPEZ [facility] [address] [place] [address] PCP - General 05/21/11 05/10/21 documented as of this encounter
--- OUTSIDE RECORDS SUMMARY | 2024-03-07 19:02 | XMS_ITS | Encounter Summary ---
Author Organization [facility] [place] [address] Care Team Providers Care Global Ceo Name Role Phone Nayla Miramontes MD Primary Care Provider [phone] Encounter Details Date Type Department Care Team (Late Contact Info) Description 12/30/2013 Telephone [place] [phone] Lluvia Dey CMA GASTROENTEROLOGY DEPT Social History Tobacco Use Types [...] 2:30 PM EST Office Visit [place] [phone] Alcides Bonilla MD [facility] [place] [address] 04/06/2049 9:00 AM EST Hospital Encounter [place] [phone] Harry Guerrero MD [facility] [place] [address] documented as of this encounter Visit Diagnoses Not on filedocumented in this encounter Care Teams Global Ceo Relationship Specialty Start Date End Date Nayla Miramontes MD [address] [place] [address] PCP - General 05/21/11 05/10/21 documented as of this encounter
--- OUTSIDE RECORDS SUMMARY | 2024-03-07 19:02 | XMS_ITS | Encounter Summary ---
Author Organization [facility] [place] [address] Care Team Providers Care Honing Machine Set Up Operator Tool Name Role Phone Nayla Miramontes MD Primary Care Provider [phone] Encounter Details Date Type Department Care Team (Late st Contact Info) Description 09/12/2013 Telephone Gastroenterology at [facility] [place] [address] Tamanna Nguyen APRN [facility] [place] [address] Social History Tobacco Use Types Packs/Day Years [...] Telephone Encounter - Tamanna Nguyen APRN - 09/12/2013 7:43 PM EDT Attempted to contact Mrs. Ceja re: GES~mild gastric delay but no answer and left a message with call back number. documented in this encounter Plan of Treatment Upcoming Encounters Date Type Department Care Team (Late st Contact Info) Description 05/17/2024 2:30 PM EST Office [place] [address] Alcides Bonilla MD [facility] [place] [address] 04/06/2049 9:00 AM EST Hospital [place] [address] Harry Guerrero MD [facility] [place] [address] documented as of this encounter Visit Diagnoses Not on filedocumented in this encounter Care Teams Honing Machine Set Up Operator Tool Relationship Specialty Start Date End Date Nayla Miramontes MD [facility] ANABELLA LÓPEZ [facility] [address] [place] [address] PCP - General 05/21/11 05/10/21 documented as of this encounter
--- OUTSIDE RECORDS SUMMARY | 2024-03-07 19:02 | XMS_ITS | Encounter Summary ---
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) Darryl Barrera MD [facility] [place] [address] [facility] [address] [place] [phone] Referral ID Status Reason Start Date Expiration Date V isits Requested Visits Authorized [id number] Closed Specialty Service Requested 08/26/2013 02/22/2014 1 1 Reason for Visit * Reason Comments Diabetes Encounter Details Date Type Department Care Team (Late st Contact Info) Description 08/25/2013 10:30 AM EDT Office [place] [address] Dionna Polanco LD [facility] 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 Is on MiniMed insulin pump - Paradigm 523 - Downloaded today. Had been followed for her pump therapy by Melisa Sales Basals: Mn - 0.7 4 - 0.775 7:30 - had been 0.95 and changed today to 0.8 because she is having lows in the morning 15:30 - 0.7 19:00 0.775 Total is 18.25 M= 12:1 CF= 25 and changed to 30 (many of her lows happen after correcting) Target: 95-130 target and changed to 100 - 130 Insulin Action time changed from 3 hours to 4 hours. She is not using her sensor as this older MiniMed sensor she did not find accurate. TDD is 40 units +/-10 units 49% basal 59% of boluses are for correction Changing infusion set every 5 days (this should be reviewed again at follow up) Nutrition Intake: She has been following a diet for gastroparesis given to her in GI. It is all processed food, low fiber. She is having constipation. I emphasized need for low fat also as this seems to have big impact on stomach emptying. I also gave her Diet Tips Sheet for Gastroparesis. Eating: Breakfast is 2 white toasts or yogurt or smoothie Lunch is cottage cheese and canned no sugar peaches Snack on pretzel and humus Dinner was chicken, asparagus and mashed instant potatoes. Drinking ICE and Glucerna. Weight is up as is HbA1c 9.1% She would benefit from new MiniMed Enlite sensor and 530G insulin pump with threshold suspend. She is checking BG on average 7 x a day with range of 5 - 10 times due to her hypoglycemia unawareness. They do have glucagon at home. I will look into a sensor for her and possible new pump 530G with threshold suspend. She will need more counseling for gastroparesis if diagnosed with more fiber to help eliminate constipation along with a better meal plan for better diabetes control and weight management. I will be in touch with her about this soon. Time Spent Diabetes Education/Medical Nutrition Therapy: 30 minutes documented in this encounter Plan of Treatment Upcoming Encounters Date Type Department Care Team (Late st Contact Info) Description 05/17/2024 2:30 PM EST Office [place] [address] Alcides Bonilla MD [facility] [place] [address] 04/06/2049 9:00 AM EST Hospital Encounter [place] [address] Harry Guerrero MD [facility] 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
--- OUTSIDE RECORDS SUMMARY | 2024-03-07 19:02 | XMS_ITS | Encounter Summary ---
Author Organization [facility] [place] [address] Care Team Providers Care Power And Recovery Supervisor Name Role Phone Nayla Miramontes MD Primary Care Provider [phone] Encounter Details Date Type Department Care Team (Latest Contact Info) Description 09/13/2013 1:54 PM EDT - 09/13/2013 4:30 PM EDT Hospital Encounter [place] [address] Harry Guerrero MD [facility] [place] [address] Kayley Spence MD [facility] [place] [address] Vivian Venegas MD [facility] [place] [address] Discharge Disposition: Home Social History Tobacco Use [...] Sign Reading Time Taken Comments Blood Pressure 131/72 09/13/2013 3:27 PM EDT Pulse 83 09/13/2013 3:27 PM EDT Temperature 36.2 ??C (97.2 ??F) 09/13/2013 2:20 PM ED T Respiratory Rate 14 09/13/2013 3:27 PM EDT Oxygen Saturation 100% 09/13/2013 3:27 PM EDT Inhaled Oxygen Concentration - - Weight 89.4 kg (197 lb) 09/13/2013 2:20 PM EDT Height - - Body Mass Index 32.28 09/01/2013 9:27 AM EDT documented in this encounter Discharge Instructions * Discharge Instructions* Abran Sims RN - 09/13/2013 3:29 PM EDT Colonoscopy What to expect after [...] you need to be checked. [facility] [phone] 8a-5p Same Day Endo [phone] 7a-8p Otherwise contact [phone] and ask to speak to the wool presser family reunification specialist Follow up care is a metcalf part of your treatment and safety. Be sure to make and go to all appointments, and call your doctor if you are having problems. Discharge instructions reviewed with patient who expresses understanding documented in this encounter Medications at Time of Discharge Medication Sig Dispensed Refills Start Date End Date MULTI-VITAMIN ORAL Take 1 tablet by mouth daily. Reported on 05/26/2016 CELECOXIB (CELEBREX ORAL) Take by mouth. 7 esomeprazole (NEXIUM) 40 mg capsule Take 40 mg by mouth 2 times daily. 4 polyethylene glycol (MIRALAX) 17 gram/dose powderIndications:Co nstipation Take 34 g by mouth daily for 30 days. 1020 g 6 08/15/2013 4 lubiprostone (AMITIZA) 24 mcg capsuleIndications:C onstipation Take 1 capsule by mouth 2 times daily (with meals). 60 capsule 6 08/15/2013 4 bisacodyl (DULCOLAX) 10 mg suppositoryIndicatio ns:Constipation Place 1 suppository rectally daily. 60 suppository 3 08/15/2013 5 Diabetic Supplies, Miscellan. MiscIndications:Type I (juvenile type) diabetes mellitus without mention of complication, not stated as uncontrolled Inject 1 each subcutaneously 4 times daily. Faxed pump and supply order to [employer] at [phone]. Dx Code: 250.01 100 each 12 08/08/2013 6 ondansetron (ZOFRAN-ODT) 4 mg oral disintegrating tabletIndications:N& V (nausea and vomiting) Take 1 tablet by mouth every 8 hours as needed for Nausea. 20 tablet 6 07/25/2013 4 trimethobenzamide (TIGAN) 300 mg capsuleIndications:N &V (nausea and vomiting) Take 1 capsule by mouth 3 times daily as needed. 90 capsule 6 07/25/2013 4 cyclobenzaprine (FLEXERIL) 5 mg tablet Take 5 mg in the morning and 10 mg at bedtime. 270 tablet 4 07/25/2013 6 gabapentin (NEURONTIN) 300 mg capsule Take 2 capsules by mouth nightly. 180 capsule 3 07/25/2013 4 adalimumab (HUMIRA) 40 mg/0.8 mL injection Inject [...] sets every 3 days Manually fax to [employer] [facility] 600 each 3 05/30/2011 5 insulin glargine (LANTUS) 100 unit/mL vial injectionIndications :type 1 diabetes mellitus Inject 18 Units subcutaneously daily. 1 vial = 10ml = 1,000 units Indications: Type 1 Diabetes Mellitus 10 mL 5 04/29/2011 7 lisinopril (PRINIVIL;ZESTRIL) 20 mg tablet Take 0.5 tablets by mouth daily. 04/29/2011 4 melatonin 3 mg Tab Take 9 mg by mouth nightly. 7 ESCITALOPRAM OXALATE (LEXAPRO ORAL) Take 40 mg by mouth daily. 4 insulin lispro (HUMALOG) 100 unit/mL injection Inject subcutaneously. 5-16 units 3 times daily and as needed 4 documented as of this encounter H&P Notes * Vivian Venegas MD - 09/13/2013 2:35 PM EDT Gastroenterology and Hepatology Pre-Procedure History and Physical Exam Procedure: Colonoscopy Indication: 58F with new change in her bowel movements, constipation. CT shows a transition point in her descending colon. No unintentional weight loss or anemia. Patient Active Problem List Diagnosis Code ??? [...] 362.02 EXAM: HEENT: Airway examined, oropharynx clear LUNGS: Clear to auscultation HEART: Regular rate and rhythm, normal S1, S2 ABDOMEN: Normal bowel sounds, soft, non tender, non distended, A/P Proceed with the planned endoscopic procedure. Risks and benefits of the procedure explained to the patient. Consent signed. documented in this encounter Miscellaneous Notes * Miscellaneous - Provider, Scanning - 09/13/2013 9:56 PM EDT * Miscellaneous - Provider, Scanning - 09/13/2013 5:42 PM EDT * OR Attestation - Vivian Venegas MD - 09/13/2013 3:11 PM EDT Attestation: Case Date: 09/13/2013 As the attending physician, I personally performed the entire procedure. VIVIAN VENEGAS MD 09/13/2013 documented in this encounter Plan of Treatment Upcoming Encounters Date Type Department Care Team (Late st Contact Info) Description 05/17/2024 2:30 PM EST Office Visit [place] [phone] Alcides Bonilal MD [facility] [place] [address] 04/06/2049 9:00 AM EST Hospital Encounter [place] [phone] Harry Guerrero MD [facility] [place] [address] documented as of this encounter Procedures Procedure Name Priority Date/Time Associated Diagnosis Comments COLONOSCOPY, DIAGNOSTIC (WRVU 3.26) 09/13/2013 2:[address] scan, colon COLONOSCOPY Routine 09/13/2013 2:29 PM EDT documented in this encounter Results * COLONOSCOPY (09/13/2013 2:29 PM EDT) COLONOSCOPY [facility] Endoscopy Patient Name: Roxann Parikh ? Procedure Date: 09/13/2013 2:29 PM ? Date of : 1955 ? Age: 58 ? Order #: [id number] ? Procedure: ? Colonoscopy Indications: ? Constipation Providers: ? Laurence Dumont ? Ethel, ELSA, Kary Dumont, ? Reimbursement Auditor Referring MD: ?Nayla Miramontes MD Medicines: ? [...] under direct visualization, ? advanced to the cecum, identified by ? appendiceal orifice & ileocecal ? valve. Careful inspection was made as ? the colonoscope was withdrawn. The ? patient tolerated the procedure well. ? The quality of the bowel preparation ? was inadequate. ? Findings: ? Perianal examination was normal. ? The rectum, sigmoid colon, descending colon, ? transverse colon, ascending colon and cecum appeared ? normal. ? Impression: ?- Preparation of the colon was ? inadequate. ? - The rectum, sigmoid colon, ? descending colon, transverse colon, ? ascending colon and cecum are normal. Recommendation: ?Cannot rule out mass due to poor ? visibility. ? She needs a repeat colonoscopy with ? prep over 2 days. Clear liquid diet ? day before starting prep. ? Propofol with next procedure ? Procedure Code(s): ?? --- Professional --- ? 23111, Colonoscopy, flexible, ? proximal to splenic flexure; ? diagnostic, with or without ? collection of specimen(s) by brushing ? or washing, with or without colon ? decompression (separate procedure) CPT (R) 2012 [employer]. All Rights Reserved. The codes documented in this report are preliminary and upon toddler nanny review may be revised to meet current compliance requirements. Vivian Venegas Vivian Venegas, 09/13/2013 3:17 PM This report has been signed electronically. Number of Addenda: 0 Note Initiated On: 09/13/2013 2:29 PM [employer]ATION 09/13/2013 2:29 PM EDT Nayla Miramontes MD GENERAL SURGICAL ORD ERABLES [employer]ATION documented in this encounter Visit Diagnoses Not on filedocumented in this encounter Administered Medications Inactive Administered Medications - up to 3 most recent administrations Medication Order MAR Action Action Date Dose Rate Site lactated ringers infusion 50 mL/hr, Intravenous, CONTINUOUS, Starting on Thu09/13/13 at 1430, Until Thu09/13/13 at 1916, Endoscopy (Day of Procedure) New Bag 09/13/2013 2:30 PM EDT 50 mL/hr 50 mL/hr documented in this encounter Active and Recently Administered Medications Times are shown in EDT. Continuous Medication Order 09/11/2013 09/12/2013 09/13/2013 lactated ringers infusion (CANCELED) 50 mL/hr, Intravenous, CONTINUOUS, Starting on Thu09/13/13 at 1430, Until Thu09/13/13 at 1916, Endoscopy (Day of Procedure) 1430 (New Bag - Prov ider: Charley Black RN) PRN Medication Order 09/11/2013 09/12/2013 09/13/2013 fentaNYL 50mcg/mL injection (CANCELED) ONCE PRN, Starting on Thu09/13/13 at 1451, Until Thu09/13/13 at 1916, Pain, Intra-Operative (Intra-Procedure), Routine 1451 (Given - Provid er: Laurence Davenport RN)1459 (Given - Provider: Laurence Davenport RN)1502 (Given - Provider: Laurence Davenport RN)1504 (Given - Provider: Laurence Davenport RN)1507 (Given - Provider: Laurence Davenport RN) midazolam (PF) (VERSED) 1 mg/mL injection (CANCELED) ONCE PRN, Starting on Thu09/13/13 at 1451, Until Thu09/13/13 at 1916, Sleep, Intra-Operative (Intra-Procedure), Routine 1451 (Given - Provid er: Laurence Davenport RN)1459 (Given - Provider: Laurence Davenport RN)1502 (Given - Provider: Laurence Davenport RN)1504 (Given - Provider: Laurence Davenport RN)1507 (Given - Provider: Laurence Davenport RN) documented in this encounter Care Teams Power And Recovery Supervisor Relationship Specialty Start Date End Date Nayla Miramontes MD [facility] A[address] [place] [address] PCP - General 05/21/11 05/10/21 documented as of this encounter
--- OUTSIDE RECORDS SUMMARY | 2024-03-07 19:02 | XMS_ITS | Encounter Summary ---
Author Organization [facility] [place] [address] Care Team Providers Care Haul Truck Driver Name Role Phone Nayla Miramontes MD Primary Care Provider [phone] Reason for Visit * Reason Onset Date Comments Medication Refill 08/08/2013 Encounter Details Date Type Department Care Team (Late st Contact Info) Description 08/08/2013 [place] [address] Roseanne Kay APRN [facility] [place] [address] Type I (juvenile type) diabetes mellitus without mention of complication, not stated as uncontrolled (Primary Dx) Social History Tobacco Use Types [...] encounter Miscellaneous Notes * Telephone Encounter - Garo Quintero RN - 08/08/2013 11:13 AM EDT Faxed refill form for pump and diabetic supplies to [employer]. documented in this encounter Plan of Treatment Upcoming Encounters Date Type Department Care Team (Late st Contact Info) Description 05/17/2024 2:30 PM EST Office [place] [phone] Alcides Bonilla MD [facility] [place] [address] 04/06/2049 9:00 AM EST Hospital En[place] [phone] Harry Guerrero MD [facility] [place] [address] documented as of this encounter Visit Diagnoses Diagnosis Type I (juvenile type) diabetes mellitus without mention of complication, not stated as uncontrolled- Primary documented in this encounter Care Teams Haul Truck Driver Relationship Specialty Start Date End Date Nayla Miramontes MD [facility] ANABELLA LÓPEZ [facility] [address] [place] [address] PCP - General 05/21/11 05/10/21 documented as of this encounter
--- OUTSIDE RECORDS SUMMARY | 2024-03-07 19:02 | XMS_ITS | Encounter Summary ---
Author Organization [facility] [place] [address] Care Team Providers Care Private Equity Associate Name Role Phone Nayla Miramontes MD Primary Care Provider [phone] Encounter Details Date Type Department Care Team (Late st Contact Info) Description 08/12/2013 Telephone [place] [phone] Sierra Diaz, RN DEPT OF GASTROENTEROLOGY Social History Tobacco Use Types Packs/Day Years [...] Telephone Encounter - Sierra Stoner RN - 08/12/2013 4:36 PM EDT Last BM two weeks ago. Nausea zofran SL twice per day Denies vomit,Denies fever Feels fullness, bloat, distention, only passing liquid. Several episodes of incontinence, is wearing adult brief. Has taken amitiza, MOM, exlax without results. Sent to [facility] ER for evalution, r/o obstruction. Pt verbalized understanding. documented in this encounter Plan of Treatment Upcoming Encounters Date Type Department Care Team (Late st Contact Info) Description 05/17/2024 2:30 PM EST Office Visit [place] [address] Alcides Bonilla MD [facility] [place] [address] 04/06/2049 9:00 AM EST Hospital Encounter [place] [phone] Harry Guerrero MD [facility] [place] [address] documented as of this encounter Visit Diagnoses Not on filedocumented in this encounter Care Teams Private Equity Associate Relationship Specialty Start Date End Date Nayla Miramontes MD [facility] ANABELLA LÓPEZ [facility] [address] [place] [address] PCP - General 05/21/11 05/10/21 documented as of this encounter
--- OUTSIDE RECORDS SUMMARY | 2024-03-07 19:02 | XMS_ITS | Encounter Summary ---
Author Organization [facility] [place] [address] Care Team Providers Care Custodial Services Manager Name Role Phone Nayla Miramontes MD Primary Care Provider [phone] Encounter Details Date Type Department Care Team (Late st Contact Info) Description 08/09/2013 Telephone Gastroenterology at [facility] [place] [address] Tamanna Nguyen APRN [facility] [address] Social History Tobacco Use Types Packs/Day Years [...] Telephone Encounter - Tamanna Nguyen APRN - 08/09/2013 9:02 AM EDT Contacted Mrs. 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 Discussed that results raise the possibility of Achalasia or connective tissue disorder. Recommend proceeding with 5 minute timed BS and lab work for connective tissue disorder. Will await results for further management. documented in this encounter Plan of Treatment Upcoming Encounters Date Type Department Care Team (Late st Contact Info) Description 05/17/2024 2:30 PM EST Office [place] [phone] Alcides Bonilla MD [facility] [place] [address] 04/06/2049 9:00 AM EST Hospital [place] [phone] Harry Guerrero MD [facility] [place] [address] documented as of this encounter Results * Hu Antibody (08/25/2013 9:20 AM EDT) HU Ab Neg Neg [facility] Comment: A negative Hu autoantibody does not rule out paraneoplasia as the cause of the sensory neuropathy/neuronopathy. Test performed by [employer], [address] [address] Blood specimen (specimen) 08/25/2013 9:20 AM EDT 08/25/2013 10:08 AM EDT Narrative Resulting Agency Comment Spec In Lab Harry Guerrero MD IMMUNOLOGY ORDERABLE S Performing Organization Address [facility] de Phone Number [facility] * Sedimentation rate (08/25/2013 9:20 AM EDT) Pathologist [facility] Sedimentation Rate Automated 11 0 - 20 mm/hr [facility] Blood specimen (specimen) 08/25/2013 9:20 AM EDT 08/25/2013 9:34 AM EDT Narrative Resulting Agency Comment Spec In Lab Harry Guerrero MD HEMATOLOGY ORDERABLE S Performing Organization Address [facility]/ZIP Co de Phone Number [facility] * Scl 70 Antibody (08/25/2013 9:20 AM EDT) Scl-70 Ab <0.2 <1.0 (Negative) U [facility] Comment: Test Performed by: [place] [address] Forest Fire Prevention Specialist: Gale Alcazar, Ph.D. Blood specimen (specimen) 08/25/2013 9:20 AM EDT 08/25/2013 12:01 PM EDT Narrative Resulting Agency Comment Spec In Lab Harry Guerrero MD LAB SEND OUT ORDERAB LES Performing Organization Address City/[facility]/ZIP Co de Phone Number [facility] * Smooth Muscle Antibody (08/25/2013 9:20 AM EDT) Sm Muscle Ab (AUGUST) Negative Negative [facility] Comment: Test Performed by: [address] [address] Forest Fire Prevention Specialist: Chase Johnson III, M.D. Blood specimen (specimen) 08/25/2013 9:20 AM EDT 08/25/2013 11:59 AM EDT Narrative Resulting Agency Comment Spec In Lab Harry Guerrero MD LAB SEND OUT ORDERAB LES Performing Organization Address City/[facility]/ZIP Co de Phone Number [facility] * Mitochondrial Antibody, M2 (08/25/2013 9:20 AM EDT) Mitochon Ab (AUGUST) <0.1 <0.1 (Negative) U [facility] Comment: Test Performed by: [address] [address] [employer] Prevention Specialist: Chase Johnson III, M.D. Blood specimen (specimen) 08/25/2013 9:20 AM EDT 08/25/2013 11:59 AM EDT Narrative Resulting Agency Comment Spec In Lab Harry Guerrero MD LAB SEND OUT ORDERAB LES Performing Organization Address City/[facility]/ZIP Co de Phone Number JOHN DE LEON * MAIRA (08/25/2013 9:20 AM EDT) MAIRA Neg Neg JOHN DE LEON Blood specimen (specimen) 08/25/2013 9:20 AM EDT 08/25/2013 12:03 PM EDT Narrative Resulting Agency Comment Spec In Lab Harry Guerrero MD LAB SEND OUT ORDERAB LES Performing Organization Address [facility] Co de Phone Number JOHN DE LEON documented in this encounter Visit Diagnoses Diagnosis Esophageal abnormality- Primary Unspecified disorder of esophagus documented in this encounter Care Teams Custodial Services Manager Relationship Specialty Start Date End Date Nayla Miramontes MD [facility] ANABELLA PEARSON [address] [place] [address] PCP - General 05/21/11 05/10/21 documented as of this encounter
--- OUTSIDE RECORDS SUMMARY | 2024-03-07 19:02 | XMS_ITS | Encounter Summary ---
Author Organization [facility] Address [facility] [place] [address] Care Team Providers Care Manager Library Name Role Phone Nayla Miramontes MD Primary Care Provider [phone] Encounter Details Date Type Department Care Team (Latest Contact Info) Description 01/10/2014 1:15 PM EDT - 01/10/2014 4:23 PM EDT Hospital Encounter [place] [address] Marie Venegas MD [facility] [address] [place] [address] Discharge Disposition: Home Social History Tobacco Use [...] this encounter Discharge Instructions * Discharge Instructions* Breyl Wade, RN - 01/10/2014 3:36 PM EDT Colonoscopy [...] you need to be checked. Thursday-Thursday Clinic [phone] 8a-5p Same Day Endo [phone] 7a-8p Otherwise contact [phone] and ask to speak to the draw frame operator rehabilitation caseworker Follow up care is a metcalf part [...] daily. Faxed pump and supply order to [employer] at [phone]. Dx Code: 250.01 100 each 12 08/08/2013 [...] PM EST Office Visit [place] [address] Alcides Bonilla MD [facility] [place] [address] 04/06/2049 9:00 AM EST Hospital Encounter [place] [address] Harry Guerrero MD [facility] [address] [place] [address] documented as of this encounter Procedures Procedure [...] Glucose, POC 244(H) 60 - 199 mg/dL [facility] Comment: Supplemental ranges: <140 mg/dL before meals <180 mg/dL all other times of the day Blood specimen (specimen) 01/10/2014 3:44 PM EDT 01/10/2014 3:44 PM EDT Marie Venegas MD POINT OF CARE TEST O RDERABLES [facility] * Surgical Pathology Report (01/10/2014 3:28 PM EDT) Final Diagnosis ? [facility] ? Provider: ?? MARIE VENEGAS ?Pt. Name: ?? ROXANN HEBERT ? Acc #: ?[id number] ?Pt. ? Col Date: ?? 01/10/2014 ? /Sex: ?1955,(58 years),Female ? Rec Date: ?? 01/10/2014 ? LOC: ?4T ? SURGICAL PATHOLOGY ? ---Pathologic Diagnosis--- ? 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 ? Cr-PX ? 01/11/14 ? AAS ? 01/11/14 Verified by: ? Suriawinata MD, Arief A ? Pathologist ? (Electronic Signature) ? The [...] Diagnosis: ? Same 01/11/2014 10:45 AM EDT [facility] GI Biopsy 01/10/2014 3:28 PM EDT 01/10/2014 3:28 PM EDT Marie Venegas MD PATHOLOGY/CYTOLOGY O JESSICA Performing Organization Address [facility] de Phone Number [facility] [place] [address] * Specimen to Pathology (surgical or derm) (01/10/2014 3:28 PM EDT) AP Specimen 01/10/2014 3:28 PM EDT 01/10/2014 3:28 PM EDT Narrative JOHN DE LEON - 01/10/2014 3:28 PM EDT Specimen requisition ordered. ??Separate Pathology report to follow Marie Venegas MD PATHOLOGY/CYTOLOGY O JESSICA Performing Organization Address [facility] Co de Phone Number JOHN DE LEON * (ABNORMAL) POCT Glucose (01/10/2014 2:54 PM EDT) Glucose, POC 247(H) 60 - 199 mg/dL [facility] Comment: Supplemental ranges: <140 mg/dL before meals <180 mg/dL all other times of the day Blood specimen (specimen) 01/10/2014 2:54 PM EDT 01/10/2014 2:54 PM EDT Marie Venegas MD POINT OF CARE TEST O JESSICA [facility] * COLONOSCOPY (01/10/2014 2:49 PM EDT) COLONOSCOPY [facility] Endoscopy Patient Name: Roxann Hebert ? Procedure Date: 01/10/2014 2:49 PM ? Date of : 1955 ? Age: 58 ? Order #: [id number] ? Procedure: ? Colonoscopy Indications: ? Screening for colorectal malignant ? neoplasm Providers: ? Marie Venegas, Joleen Amor, RN, ? Gregg Anthony ? Reagan, Title Clerk Automobile Referring MD: ?Nayla Miramontes MD Medicines: ? [...] prep for a few days ? Marie Thompson Reinakelly Marie Hrerera Reinakelly, 01/10/2014 3:34 PM This report has been [...] infusion 50 mL/hr, Intravenous, CONTINUOUS, Starting on Thu01/10/14 at 1515, Until Thu01/10/14 at 1542, Endoscopy (Day of Procedure) New Bag 01/10/2014 3:15 PM EDT 50 mL/hr 50 mL/hr documented in this encounter Active and Recently Administered Medications Times are shown in EDT. Continuous Medication Order 01/08/2014 01/09/2014 01/10/2014 lactated ringers infusion (CANCELED) 50 mL/hr, Intravenous, CONTINUOUS, Starting on Thu01/10/14 at 1515, Until Thu01/10/14 at 1542, Endoscopy (Day of Procedure) 1515 (New Bag - Prov ider: Mellisa Oro RN) PRN Medication Order 01/08/2014 01/09/2014 01/10/2014 fentaNYL 50mcg/mL injection (CANCELED) ONCE PRN, Starting on Thu01/10/14 at 1502, Until Thu01/10/14 at 1542, Pain, Intra-Operative (Intra-Procedure), Routine 1502 (Given - Provid er: Joleen Amor RN)1505 (Given - Provider: Joleen Amor RN)1509 (Given - Provider: Joleen Amor RN - Comment: daphnie)1512 (Given - Provider: Joleen Amor RN) midazolam (PF) (VERSED) 1 mg/mL injection (CANCELED) ONCE PRN, Starting on Thu01/10/14 at 1502, Until Thu01/10/14 at 1542, Sleep, Intra-Operative (Intra-Procedure), Routine 1502 (Given - Provid er: Joleen Amor RN)1505 (Given - Provider: Joleen Amor RN)1509 (Given - Provider: Joleen Amor RN - Comment: daphnie)1512 (Given - Provider: Joleen Amor RN) documented in this encounter Care Teams Manager Library Relationship Specialty Start Date End Date Nayla Miramontes MD [facility] [address] [place] [address] PCP - General 05/21/11 05/10/21 documented as of this encounter
--- OUTSIDE RECORDS SUMMARY | 2024-03-07 19:02 | XMS_ITS | Encounter Summary ---
Author Organization [facility] [place] [address] Care Team Providers Care Skating Rink Ice Maker Name Role Phone Nayla Miramontes MD Primary Care Provider [phone] Reason for Visit * Reason Comments Dietary Surveillance/counseling Encounter Details Date Type Department Care Team (Latest Contact Info) Description 09/01/2013 9:00 AM EDT Office Visit Gastroenterology at [facility] [place] [address] Janessa Regan, [place] [address] Gastroparesis (Primary Dx) Discharge Disposition: Home Social History [...] Sign Reading Time Taken Comments Blood Pressure 123/61 09/01/2013 9:27 AM EDT Pulse 87 09/01/2013 9:27 AM EDT Temperature - - Respiratory Rate - - Oxygen Saturation - - Inhaled Oxygen Concentration - - Weight 89.4 kg (197 lb) 09/01/2013 9:27 AM EDT Height 166.4 cm (5' 5.5) 09/01/2013 9:27 AM EDT Body Mass Index 32.28 09/01/2013 9:27 AM EDT documented in this encounter Progress Notes * Janessa Regan LD - 09/01/2013 9:32 AM EDT GI Nutrition-Initial Visi Patient Active Problem List Diagnosis Code ??? [...] (proliferative diabetic retinopathy) 250.50, 362.02 Past Medical History Diagnosis Date ??? Diabetes mellitus ??? Thyroid disease ??? Skin disease ??? GERD (gastroesophageal reflux disease) ??? Hyperlipidemia ??? Hypertension ??? Anxiety ??? Asthma ??? Cortical cataract 05/05/2011 ??? PDR (proliferative diabetic retinopathy) 05/25/2011 No results found for this basename: ALB:3 in the last 168 hours esomeprazole (NEXIUM) 40 mg capsule; lubiprostone (AMITIZA) 24 mcg capsule; bisacodyl (DULCOLAX) 10mg suppository; polyethylene glycol (MIRALAX) 17 gram/dose powder; Diabetic Supplies, Miscellan. Misc; ondansetron (ZOFRAN-ODT) 4 mg oral disintegrating tablet; trimethobenzamide (TIGAN) 300 mg capsule; cyclobenzaprine (FLEXERIL) 5 mg tablet; gabapentin (NEURONTIN) 300 mg capsule; adalimumab (HUMIRA) 40 mg/0.8 mL injection celecoxib (CELEBREX) 100 mg capsule; levothyroxine (SYNTHROID) 150 mcg tablet; levothyroxine (SYNTHROID) 75 mcg tablet; tolterodine (DETROL) 2 mg tablet; Diabetic Supplies, Miscellan. Misc; insulin glargine (LANTUS) 100 unit/mL vial injection; lisinopril (PRINIVIL;ZESTRIL) 20 mg tablet; melatonin 3mg Tab; ESCITALOPRAM OXALATE (LEXAPRO ORAL); insulin lispro (HUMALOG) 100 unit/mL injection; MULTI-VITAMIN ORAL No current facility-administered medications for this visit. lactated ringers infusion Weight history: Vitals 09/01/2013 08/25/2013 Height (Iranian) 5' 5.5 5' 5.984 Height (Metric) 166.4 cm 167.6 cm Weight (Iranian) 197 lbs 197 lbs 13 oz Weight (Metric) 89.359 kg 89.721 kg BODY MASS INDEX 32.27 kg/m2 31.94 kg/m2 Typical Day of Eating: tries to not eat after 7pm. Goes to bed ~11pm. Up at 8am; white toast with margarine spread or marmalade. May have a glucerna mid morning. L:unch is low fat cottage cheese and fruit. May have yogurt and strawberries for a snack. Dinner is a light fish or lean meat, with a carb and veggies. Bowel Habits: Constipation despite multiple laxatives each day-went 3 weeks without having a bowel movement. Social: Cannot work. Ongoing depression. A: Roxann comes today for nutrition management of gastroparesis. She is scheduled to have a gastric emptying study today. She says she had one done back in the 90s, but not since. She is a Type 1 Diabetic, and says she has been for 40 years. She has recently seen Dionna Polanco RD, JOSE ENRIQUEE here for ongoing management of her diabetes. Her typical day of eating is above. She has had to modify her diet to decrease her fiber intake as well as fat intake, both of which she has found very helpful in symptommanagement of gastroparesis. I encouraged her to continue to modify her eating as necessary, also considering small frequent meals and drinking the majority of her fluids between meals (which she currently does). I gave her additional references for eating with gastroparesis and a food shopping list. She would like a referral to Dr. Rich here in GI, as her depression and now fecal incontinence from chronic laxative requirements for chronic constipation are causing her to fear leaving her house. She is feeling overwhelmed by all of this. I told her I would see if Tamanna Nguyen APRN who she sees her in GI will make this referral for Her. 1. Small frequent meals (eat 5-6 small meals/day). 2. Glycemic control is essential. Continue to see Dionna. 3. Consistent carbs at each meal/snack 4. Low fat foods (higher fat liquids may be better tolerated and may help with glycemic control). 5. Low fiber to prevent bezoar formation as well as facilitate gastric emptying. 6. High protein. 7. Remain sitting/standing (don't lay down) for 1-2 hrs after eating or drinking. 8. Drink majority of liquids between meals. 9. Follow up with me prn. 10. Request referral to Dr. Rich. documented in this encounter Plan of Treatment Upcoming Encounters Date Type Department Care Team (Late st Contact Info) Description 05/17/2024 2:30 PM EST Office [place] [address] Alcides Bonilla MD [facility] [place] [address] 04/06/2049 9:00 AM EST Hospital Encounter [place] [address] Harry Guerrero MD [facility] [place] [address] documented as of this encounter Visit Diagnoses Diagnosis Gastroparesis- Primary documented in this encounter Care Teams Skating Rink Ice Maker Relationship Specialty Start Date End Date Nayla Miramontes MD [facility] ANABELLA LÓPEZ [facility] [address] [place] [address] PCP - General 05/21/11 05/10/21 documented as of this encounter
--- OUTSIDE RECORDS SUMMARY | 2024-03-07 19:02 | XMS_ITS | Encounter Summary ---
[place] [address] Care Team Providers Care Splunk Dashboard Developer Name Role Phone Nayla Miramontes MD Primary Care Provider [phone] Reason for Visit * Reason Onset Date Comments Prior Authorization 08/17/2013 Amitiza Encounter Details Date Type Department Care Team (Late st Contact Info) Description 08/17/2013 [place] [phone] Ning Jerome CMA Prior Authorization (Amijaciza) Social History Tobacco Use Types Packs/Day Years [...] encounter Miscellaneous Notes * Telephone Encounter - Ning Jerome CMA - 08/17/2013 3:51 PM EDT Medication: Amitiza Dosage: 24 mcg Frequency & Route: 1 po bid Insurance & Phone #: [place] medicaid [phone] ID #: [id number] Trialed (dosage, frequency): miralax, Amitiza 8 mcg Notes: PA approved for 3 months (11/15/13) documented in this encounter Plan of Treatment Upcoming Encounters Date Type Department Care Team (Late st Contact Info) Description 05/17/2024 2:30 PM EST Office Visit Gastroenterology at [place] [phone] Alcides Bonilla MD [facility] [place] [address] 04/06/2049 9:00 AM EST Hospital [place] [phone] Harry Guerrero MD [facility] DR [place] [address] documented as of this encounter Visit Diagnoses Not on filedocumented in this encounter Care Teams Splunk Dashboard Developer Relationship Specialty Start Date End Date Nayla Miramontes MD [facility] ANABELLA LÓPEZ [facility] [address] [place] [address] PCP - General 05/21/11 05/10/21 documented as of this encounter
--- OUTSIDE RECORDS SUMMARY | 2024-03-07 19:02 | XMS_ITS | Encounter Summary ---
Author Organization [facility] Address [facility] [place] [address] Care Team Providers Care Hard Metals Hand Engraver Name Role Phone Nayla Miramontes MD Primary Care Provider [phone] Encounter Details Date Type Department Care Team (Late st Contact Info) Description 09/13/2013 3:00 PM EDT - 09/13/2013 4:00 PM EDT Surgery [place] [address] Marie Venegas MD [facility] DR [place] [address] COLONOSCOPY, DIAGNOSTIC (WRVU 3.26) Social History Tobacco [...] you need to be checked. Thursday-Thursday Clinic [phone] 8a-5p Same Day Endo [phone] 7a-8p Otherwise contact [phone] and ask to speak to the claims investigator television audio engineer Follow up care is a metcalf part [...] daily. Faxed pump and supply order to [employer] at [phone]. Dx Code: 250.01 100 each 12 08/08/2013 [...] sets every 3 days Manually fax to [employer] Diabetes 600 each 3 05/30/2011 5 insulin [...] units 3 times daily and as needed 08/11/201 4 documented as of this encounter H&P Notes * Marie Venegas MD - 09/13/2013 2:35 PM EDT [...] 5:42 PM EDT * OR Attestation - Maire Venegas MD - 09/13/2013 3:11 PM EDT Attestation: Case Date: 09/13/2013 As the attending physician, I personally performed the entire procedure. MARIE VENEGAS MD 09/13/2013 documented in this encounter Plan of Treatment Upcoming Encounters Date Type Department Care Team (Late st Contact Info) Description 05/17/2024 2:30 PM EST Office Visit Gastroenterology at [place] [phone] Alcides Bonilla MD [facility] [place] [address] 04/06/2049 9:00 AM EST Hospital Encounter [place] [address] Harry Guerrero MD [facility] DR [place] [address] documented as of this encounter Procedures Procedure Name Priority Date/Time Associated Diagnosis Comments COLONOSCOPY, DIAGNOSTIC (WRVU 3.26) 09/13/2013 2:[address] scan, colon COLONOSCOPY Routine 09/13/2013 2:29 PM EDT documented in this encounter Results * COLONOSCOPY (09/13/2013 2:29 PM EDT) COLONOSCOPY [facility] Endoscopy Patient Name: Roxann Parikh ? Procedure Date: 09/13/2013 2:29 PM ? N: [id number] ? Date of : 1955 ? Age: 58 ? Order #: [id number] ? Procedure: ? Colonoscopy Indications: ? Constipation Providers: ? Laurence Dumont ? ELSA Davenport, Kary Dumont, ? Mental Health Director Referring MD: ?Nayla Miramontes MD Medicines: ? [...] Procedure Code(s): ?? --- Professional --- ? 66897, Colonoscopy, flexible, ? proximal to splenic flexure; ? diagnostic, with or without ? collection of specimen(s) by brushing ? or washing, with or without colon ? decompression (separate procedure) CPT (R) 2012 [employer]. All Rights Reserved. The codes documented in this report are preliminary and upon store facility technician review may be revised to meet current compliance requirements. Marie HerreraAddie Venegas Marie M Sera, 09/13/2013 3:17 PM This report has been [...] fentaNYL 50mcg/mL injection ONCE PRN, Starting on Thu09/13/13 at 1451, Until Thu09/13/13 at 1916, Pain, Intra-Operative (Intra-Procedure), Routine Given 09/13/2013 3:07 PM EDT 50 mcg Given 09/13/2013 3:04 PM EDT 25 mcg Given 09/13/2013 3:02 PM EDT 25 mcg lactated ringers infusion 50 mL/hr, Intravenous, CONTINUOUS, Starting on Thu09/13/13 at 1430, Until Thu09/13/13 at 1916, Endoscopy (Day of Procedure) New Bag 09/13/2013 2:30 PM EDT 50 mL/hr 50 mL/hr midazolam (PF) (VERSED) 1 mg/mL injection ONCE PRN, Starting on Thu09/13/13 at 1451, Until Thu09/13/13 at 1916, Sleep, Intra-Operative (Intra-Procedure), Routine Given 09/13/2013 3:07 PM EDT 1 mg Given 09/13/2013 3:04 PM EDT 0.5 mg Given 09/13/2013 3:02 PM EDT 0.5 mg documented in this encounter Active and [...] PRN, Starting on Thu09/13/13 at 1451, Until e 09/13/13 at 1916, Pain, Intra-Operative (Intra-Procedure), Routine 1451 [...] RN) documented in this encounter Care Teams Hard Metals Hand Engraver Relationship Specialty Start Date End Date Nayla Miramontes MD [facility] ANABELLA L[address]PEZ [address] [place] [address] PCP - General 05/21/11 05/10/21 documented as of this encounter
--- OUTSIDE RECORDS SUMMARY | 2024-03-07 19:02 | XMS_ITS | Encounter Summary ---
Author Organization [facility] Address [facility] [place] [address] Care Team Providers Care Potato Chip Sorter Name Role Phone Nayla Miramontes MD Primary Care Provider [phone] Encounter Details Date Type Department Care Team (Latest Contact Info) Description 08/25/2013 9:11 AM EDT - 08/25/2013 11:59 PM EDT [place] [address] Harry Guerrero MD [facility] [place] [address] Abdominal bloating; Constipation; Esophageal abnormality Discharge Disposition: Home Social History Tobacco Use [...] daily. Faxed pump and supply order to [employer] at [phone]. Dx Code: 250.01 100 each 12 08/08/2013 [...] sets every 3 days Manually fax to [employer] Diabetes 600 each 3 05/30/2011 5 insulin [...] needed 4 documented as of this encounter Plan of Treatment Upcoming Encounters Date Type Department Care Team (Late st Contact Info) Description 05/17/2024 2:30 PM EST Office [place] [address] Alcides Bonilla MD [facility] [place] [address] 04/06/2049 9:00 AM EST Hospital [place] [phone] Harry Guerrero MD [facility] [place] [address] documented as of this encounter Procedures Procedure Name Priority Date/Time Associated Diagnosis Comments SCL 70 ANTIBODY Routine 08/25/2013 9:20 AM EDT Esophageal abnormality HU ANTIBODY Routine 08/25/2013 9:20 AM EDT Esophageal abnormality MITOCHONDRIAL ANTIBODY, M2 Routine 08/25/2013 9:20 AM EDT Esophageal abnormality TISSUE TRANSGLUTAMINASE, IGA Routine 08/25/2013 9:20 AM EDT Abdominal bloating Constipation SMOOTH MUSCLE ANTIBODY Routine 4 9:20 AM EDT Esophageal abnormality SEDIMENTATION RATE Routine 08/25/2013 9: 20 AM EDT Esophageal abnormality MAIRA ANTIBODY SCREEN Routine 08/25/2013 9 :20 AM EDT Esophageal abnormality IGA Routine 08/25/2013 9:20 AM EDT Abdominal bloating Constipation documented in this encounter Results * Hu Antibody (08/25/2013 9:20 AM EDT) HU Ab Neg Neg [facility] [employer] [place] [facility] Comment: A negative Hu autoantibody does not rule out paraneoplasia as the cause of the sensory neuropathy/neuronopathy. Test performed by [employer], [place] [address] Blood specimen (specimen) 08/25/2013 9:20 AM EDT 08/25/2013 10:08 AM EDT Narrative Resulting Agency Comment Spec In Lab Harry Guerrero MD IMMUNOLOGY ORDERABLE S Performing Organization Address [facility] Co de Phone Number [employer] * Sedimentation rate (08/25/2013 9:20 AM EDT) Sedimentation Rate Automated 11 0 - 20 mm/hr [facility] Blood specimen (specimen) 08/25/2013 9:20 AM EDT 08/25/2013 9:34 AM EDT Narrative Resulting Agency Comment Spec In Lab Harry Guerrero MD HEMATOLOGY ORDERABLE S Performing Organization Address [facility] Co de Phone Number [facility] [employer] * Scl 70 Antibody (08/25/2013 9:20 AM EDT) Scl-70 Ab <0.2 <1.0 (Negative) U [facility] Comment: Test Performed by: [address], [place] [address] Digital Experience Manager: Gale Alcazar, Ph.D. Blood specimen (specimen) 08/25/2013 9:20 AM EDT 08/25/2013 12:01 PM EDT Narrative Resulting Agency Comment Spec In Lab Harry Guerrero MD LAB SEND OUT ORDERAB LES [facility] * Smooth Muscle Antibody (08/25/2013 9:20 AM EDT) Sm Muscle Ab (AUGUST) Negative Negative [facility] Comment: Test Performed by: [address] [address] Digital Experience Manager: Chase Johnson III, M.D. Blood specimen (specimen) 08/25/2013 9:20 AM EDT 08/25/2013 11:59 AM EDT Narrative Resulting Agency Comment Spec In Lab Harry Guerrero MD LAB SEND OUT ORDERAB LES Performing Organization Address [facility] Co de Phone Number [facility] * Mitochondrial Antibody, M2 (08/25/2013 9:20 AM EDT) Mitochon Ab (AUGUST) <0.1 <0.1 (Negative) U [facility] Comment: Test Performed by: [address] [address] Digital Experience Manager: Chase Johnson III, M.D. Blood specimen (specimen) 08/25/2013 9:20 AM EDT 08/25/2013 11:59 AM EDT Narrative Resulting Agency Comment Spec In Lab Harry Guerrero MD LAB SEND OUT ORDERAB LES Performing Organization Address City/[facility]/ZIP Co de Phone Number [facility] * MAIRA (08/25/2013 9:20 AM EDT) MAIRA Neg Neg [facility] Blood specimen (specimen) 08/25/2013 9:20 AM EDT 08/25/2013 12:03 PM EDT Narrative Resulting Agency Comment Spec In Lab Harry Guerrero MD LAB SEND OUT ORDERAB LES Performing Organization Address [facility] Co de Phone Number [facility] * IgA (08/25/2013 9:20 AM EDT) IgA 229 70 - 400 mg/dL [facility] Blood specimen (specimen) 08/25/2013 9:20 AM EDT 08/25/2013 9:34 AM EDT Narrative Resulting Agency Comment Spec In Lab Harry Guerrero MD CHEMISTRY ORDERABLES Performing Organization Address [facility] de Phone Number [facility] * Tissue transglutaminase, IgA (08/25/2013 9:20 AM EDT) TTG IgA Ab <4.0 <=3.9 u/ml [facility] Comment: Result Interpretation: Negative: ?<4 U/mL Weak Positive: ??4-10 U/mL Positive: ?>10 U/mL Blood specimen (specimen) 08/25/2013 9:20 AM EDT 08/25/2013 12:03 PM EDT Narrative Resulting Agency Comment Spec In Lab Harry Guerrero MD IMMUNOLOGY ORDERABLE S Performing Organization Address [facility] de Phone Number [facility] documented in this encounter Visit Diagnoses Diagnosis Abdominal bloating Flatulence, eructation, and gas pain Constipation Unspecified constipation Esophageal abnormality Unspecified disorder of esophagus documented in this encounter Care Teams Potato Chip Sorter Relationship Specialty Start Date End Date Nayla Miramontes MD [address] [place] [address] PCP - General 05/21/11 05/10/21 documented as of this encounter
--- OUTSIDE RECORDS SUMMARY | 2024-03-07 19:02 | XMS_ITS | Encounter Summary ---
Author Organization [facility] [place] [address] Care Team Providers Care Clinic Charge Nurse Name Role Phone Carmen Miramontes MD Primary Care Provider [phone] Reason for Visit * Reason Comments Establish Care Encounter Details Date Type Department Care Team (Late st Contact Info) Description 12/08/2013 9:20 AM EDT Office [place] [address] Sonja Chavez MD [facility] [place] [address] GERD (gastroesophageal reflux disease) (Primary Dx); Hiatal hernia Discharge Disposition: Home Social History [...] Sign Reading Time Taken Comments Blood Pressure 98/67 12/08/2013 9:50 AM EDT Pulse 74 12/08/2013 9:50 AM EDT Temperature 36.6 ??C (97.9 ??F) 12/08/2013 9:50 AM ED T Respiratory Rate 16 12/08/2013 9:50 AM EDT Oxygen Saturation 99% 12/08/2013 9:50 AM EDT Inhaled Oxygen Concentration - - Weight 88.5 kg (195 lb) 12/08/2013 9:50 AM EDT Height - - Body Mass Index 31.96 10/25/2013 1:45 PM EDT documented in this encounter Progress Notes * Sonja Chavez MD - 12/15/2013 8:16 AM EDT I have seen the patient and reviewed Dr. Ennis's above history and I agree with the details as written. The assessment and plan were formulated in discussion with me and I agree with them as documented. Pertinent History: Very complex history of gastroparesis, GERD and dysphagia. Unclear if this is all motility /achalasia issue or motor failure and GERD. Manometry of LES not obtainable. Timed barium swallow and presentation at multi-disciplinary conference for discussion prior to final decision re surgical repair. * Kamala Ennis MD - 12/08/2013 10:16 AM EDT Roxann Ceja is a 58 y.o. female with type 1 diabetes and gastroparesis referred by CARMEN DING MD for evaluation of symptomatic hiatal hernia and consideration for repair. She describes problems with reflux symptoms and regurgitation for many years. She describes early satiety and post prandial fullness. Her symptoms are the worst at night where she will frequently regurgitate food, vomit and cough, despite sleeping with a ramp. Additionally she frequently experiences heartburn despite taking Nexium once a day. Tums does provide some relief. She was diagnosed with gastroparesis, and does take Zofran periodically, however primarily obtains symptom improvement by vomiting. She takes in frequent small meals, and has particular difficulties if she eats after 5 pm. She describes longstanding difficulties with blood glucose control, with A1c of ~9, despite using an insulin pump. Additionally she has fecal incontinence and constipation. She has undergone multiple studies, including an EGD, Gastric emptying study, SBFT and manometry, results listed below. Past Medical History: Patient Active Problem List Diagnosis Code ??? [...] PDR (proliferative diabetic retinopathy) 250.50, 362.02 Past Surgical History Procedure Date ??? Upper gi endoscopy, exam 04/25/2011 UPPER GI ENDOSCOPY performed by MARIA DEL CARMEN BOB at [facility] ENDOSCOPY ??? Upper gi endoscopy, biopsy 04/27/2012 UPPER GASTROINTESTINAL ENDOSCOPY,WITH BIOPSY SINGLE OR MULTIPLE performed by Luis Bucio MD [facility] ENDOSCOPY ??? Retinal laser surgery ??? Vitrectomy,focal laser rx retina 05/16/2013 OS VITRECTOMY, PARS PLANA, LASER performed by Dany Young MD at [facility] MAIN OR ??? Finger surgery ??? Colonoscopy, diagnostic 09/13/2013 COLONOSCOPY, DIAGNOSTIC performed by Marie Zamora MD at [facility] ENDOSCOPY C section Medications: Current Outpatient Prescriptions on File Prior to Visit Medication Sig Dispense Refill ??? insulin lispro (HUMALOG) injection Inject 65 [...] mg at bedtime 180 capsule 3 ??? esomeprazole (NEXIUM) 40 mg capsule Take 1 capsule by mouth 2 times daily. 60 capsule 6 ??? bisacodyl (DULCOLAX) [address] 1 suppository rectally daily. 60 suppository 3 ??? Diabetic Supplies, Miscellan. Misc Inject 1 each subcutaneously 4 times daily. Faxed pump and supply order to [employer] at [phone]. Dx Code: 250.01 100 each 12 ??? [...] sets every 3 days Manually fax to [employer] Diabetes 600 each 3 ??? insulin glargine (LANTUS) 100 unit/mL vial injection Inject 18 Units subcutaneously daily. 1 vial = 10ml = 1,000 units Indications: Type 1 Diabetes Mellitus 10 mL 5 ??? lisinopril (PRINIVIL;ZESTRIL) 20 mg tablet Take 0.5 tablets by mouth daily. ??? melatonin 3 mg Tab Take 9 mg by mouth nightly. ??? MULTI-VITAMIN ORAL Take 1 tablet by mouth daily. Current Facility-Administered Medications on File Prior to Visit Medication Dose Route Frequency Provider Last Rate Last Dose ??? lactated ringers infusion Continuous PRN Roxann Rolon CRNA Allergies: Codeine phosphate and Propoxyphene n-acetaminophen Family History: Family History Problem Relation Age of Onset ??? Diabetes Neg Hx ??? Glaucoma Neg Hx ??? Macular Degeneration Neg Hx ??? Retinal Detachment Neg Hx ??? Amblyopia Neg Hx ??? Strabismus Neg Hx Social History: reports that she quit smoking about 29 years ago. She has never used smokeless tobacco. She reportsthat she does not drink alcohol or use illicit drugs. Review of systems is negative for any unexplained weight loss or weight gain. She denies any cough,chest pain or shortness on breath on exertion. She has no fevers, chills or night sweats. She denies headaches, dizziness, weakness, numbness or ataxia. Bowel and bladder elimination is normal. All other system reviews are negative. On physical examination, this is an overweight female. There is no scleral or skin icterus. Mucous membranes are moist and her pupils reactive. Her lungs are clear to auscultation. Heart is regular, rate, and rhythm and without murmurs. Her abdomen is obese, nontender and without palpable masses. She has an insulin pump in place. There is a well healed pfannensteil incision. Her extremity and neurological exam are grossly normal. Studies: EGD 04/27/12: Impression: - Z-line variable, 33 cm from the incisors. Possible islands of Giron's, this was biopsied. - Hiatus hernia. - Multiple gastric polyps. This was biopsied. - Food in the stomach likely due to diabetic gastroparesis - Normal examined duodenum. Recommendation: - Await pathology results. - Continue present medications. - Continue tight glucose control. Manometry 08/02/13: METHODS Stationary esophageal manometry was performed with the [employer] esophageal motility system utilizing the Polygram software with a 4-channel solid-state motility probe. The transducers are spaced 5 cm apart, and the distal transducer is circumferential, while the proximal three transducers are placed radially above it. Station pull-through technique is utilized to define the lower esophageal sphincter, whose resting tone is determined by the circumferential transducer. Wet swallows are performed in the body of the esophagus with the distal transducer placed 3 and 8 cm above the lower esophageal sphincter zone. The upper esophageal sphincter zone is discerned by station pull-through technique and measured using the circumferential transducer. LES (lower esophageal sphincter) Lower Border: 37 cm Upper Border: 34 cm We were unable to accurately identify resting pressure and relaxation. BODY OF ESOPHAGUS Water Swallows: 10 Peristaltic: 0 See tracing. UES (upper esophageal sphincter) Identified at 19 cm and extended to 17 cm. UES resting pressure 52 mmHg (normal=30-150 mmHg); relaxation complete. During this portion of the study there was no evidence of peristalsis in the proximal esophagus. IMPRESSION 1. Unable to accurately identify LES resting pressure and relaxation. 2. Normal UES resting pressure. 3. 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 RECOMMENDATION This finding raises the possibility of either achalasia or a connective tissue disorder. Alternatively, very long-standing diabetes can create a similar picture. A five-minute, timed barium swallow should be performed with careful attention paid to the GE junction to look for evidence of a classic ???bird???s beak.?? In addition, if symptoms persist, high-resolution esophageal manometry may be useful. This assumes, of course, that mechanical obstruction has been ruled out by upper endoscopy. SBFT 08/03/13: Impression Severe esophageal dilatation with non emptying of the esophagus, esophageal dysmotility with large hiatal hernia. These findings likely account for the patient's symptoms. Addendum Begins The below findings would be compatible with a esophageal achalasia. GES 09/01/13:Quantitative Analysis Two hours: 58% remains in the stomach (normal <60%) Four hours: 17% remains in the stomach (normal <10%) Impression Mildly delayed gastric emptying as above. CLS 09/13/13: Impression: - Preparation of the colon was inadequate. - The rectum, sigmoid colon, descending colon, transverse colon, ascending colon and cecum are normal. Recommendation: Cannot rule out mass due to poor visibility. She needs a repeat colonoscopy with prep over 2 days. Clear liquid diet day before starting prep. 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 Her SBFT and manometry also raised the possibility of achalasia or a connective tissue disorder, although her global dysmotilitymay instead be due to her longstanding diabetes. We discussed that surgical management in her is not straight forward, but could include a hiatal hernia repair with partial wrap or gastric bypass. Would first obtain timed barium swallow to evaluate the possibility of achalasia and discuss at GI/Surgery conference prior to making final surgical recommendations. -Provided a prescription to increase her Nexium to 40 BID -She will return to clinic after her timed barium swallow Patient seen and examined with Dr. Chavez, who agrees with assessment and plan. documented in this encounter Plan of Treatment Upcoming Encounters Date Type Department Care Team (Late st Contact Info) Description 05/17/2024 2:30 PM EST Office [place] [address] Alcides Bonilla MD [facility] DR [place] [address] 04/06/2049 9:00 AM EST Hospital Encounter [place] [address] Harry Guerrero MD [facility] DR GASTROENTEROLOGY [place] [address] documented as of this encounter Results * [...] documented in this encounter Visit Diagnoses Diagnosis GERD (gastroesophageal reflux disease)- Primary Esophageal reflux Hiatal hernia Diaphragmatic hernia without mention of obstruction or gangrene Hiatal hernia Diaphragmatic hernia without mention of obstruction or gangrene documented in this encounter Care Teams Clinic Charge Nurse Relationship Specialty Start Date End Date Carmen Miramontes MD [facility] [address] [place] [address] PCP - General 05/21/11 05/10/21 documented as of this encounter"
--- OUTSIDE RECORDS SUMMARY | 2024-03-07 19:02 | XMS_ITS | Encounter Summary ---
[place] [address] Care Team Providers Care Temperature Regulator Name Role Phone Nayla Miramontes MD Primary Care Provider [phone] Reason for Visit * Reason Onset Date Comments Prior Authorization 10/26/2013 HUMIRA-APPRO MARTIN Encounter Details Date Type Department Care Team ([facility] st Contact Info) Description 10/26/2013 [place] [address] Carlos Mohamud Prior Authorization (HUMIRA-APPROVED) Social History Tobacco Use Types Packs/Day Years [...] encounter Miscellaneous Notes * Telephone Encounter - Carlos Mckeon - 10/26/2013 11:53 AM EDT Medication Prior Authorization [facility]ATOLOGY [facility] Medication name/dose/directions: HUMIRA 40MG INJECT SQQ EVERY OTHER WEEK Rationale for request: PsA Health plan: [place] MEDICAID ID# [id number] Authorizing sales promotion representative name: APPROVAL FAXED TO OFFICE Faxed to health plan on: 09/26/13 Health plan decision: Approved Quantity approved: 06/03 Authorization number: Start date: 7/23/14 End date: 10/26/14 Patient notified? no Pharmacy notified? no documented in this encounter Plan of Treatment Upcoming Encounters Date Type Department Care Team (Late st Contact Info) Description 05/17/2024 2:30 PM EST Office [place] [address] Alcides Bonilla MD [facility] [place] [address] 04/06/2049 9:00 AM EST Hospital [place] [phone] Harry Guerrero MD [facility] [place] [address] documented as of this encounter Visit Diagnoses Not on filedocumented in this encounter Care Teams Temperature Regulator Relationship Specialty Start Date End Date Nayla Miramontes MD [facility] [address] [place] [address] PCP - General 05/21/11 05/10/21 documented as of this encounter
--- OUTSIDE RECORDS SUMMARY | 2024-03-07 19:02 | XMS_ITS | Encounter Summary ---
Author Organization [facility] [place] [address] Care Team Providers Care Prop Cutter Name Role Phone Nayla Miramonets MD Primary Care Provider [phone] Encounter Details Date Type Department Care Team (Late Contact Info) Description 01/02/2014 Notes Only Gastroenterology at [facility] [place] [address] Lluvia Dey CMA GASTROENTEROLOGY DEPT Social History [...] as of this encounter Progress Notes * Lluvia Dey CMA - 01/02/2014 12:52 PM EDT Prior Auth Medication name/dose/directions: Nexium 40 2x daily Rationale for request: Medication Prior Authorization: Nexium 40 Mg 2x daily Health plan: [place] medicaid Authorizing medical detail representative name: Lluvia Dey Faxed to health plan on: 01/02/2014 Health plan decision: Approved for one year documented in this encounter Plan of Treatment Upcoming Encounters Date Type Department Care Team (Late st Contact Info) Description 05/17/2024 2:30 PM EST Office [place] [address] Alcides Bonilla MD [facility] [place] [address] 04/06/2049 9:00 AM EST Hospital Encounter [place] [address] Harry Guerrero MD [facility] [place] [address] documented as of this encounter Visit Diagnoses Not on filedocumented in this encounter Care Teams Prop Cutter Relationship Specialty Start Date End Date Nayla Miramontes MD [address] [facility] [address] [place] [address] PCP - General 05/21/11 05/10/21 documented as of this encounter
--- OUTSIDE RECORDS SUMMARY | 2024-03-07 19:02 | XMS_ITS | Encounter Summary ---
Author Organization Formerly [facility] [place] [address] Care Team Providers Care Repairer Hairspring Name Role Phone Nayla Miramontes MD Primary Care Provider [phone] Reason for Visit * Reason Comments Diabetes Encounter Details Date Type Department Care Team ([facility] st Contact Info) Description 11/14/2013 9:30 AM EDT Office [place] [address] Radha Booker MD [facility] DR [place]IN[place] [address] Diabetes mellitus (Primary Dx) Discharge Disposition: Home Social History [...] Sign Reading Time Taken Comments Blood Pressure 138/81 11/14/2013 9:59 AM EDT Pulse 80 11/14/2013 9:59 AM EDT Temperature - - Respiratory Rate - - Oxygen Saturation - - Inhaled Oxygen Concentration - - Weight 89.1 kg (196 lb 6.4 oz) 11/14/2013 9:59 A M EDT Height - - Body Mass Index 32.19 10/25/2013 1:45 PM EDT documented in this encounter Patient Instructions * Patient Instructions* Addie Alcantar - 11/14/2013 11:21 AM EDT -We have intensified your blood sugar control from 7am to 7pm. We did not change your night-time insulin to avoid low's overnight -Your insulin to carb ratio is 1:12 for all meals -Make sure you take your meal insulin AFTER you eat. -Follow-up appointment with Adriana Kay in 3months documented in this encounter Progress Notes * Radha Booker MD - 11/14/2013 12:26 PM EDT I saw this patient with Dr. Alcantar . I reviewed the metcalf portions of the history and physical exam, and reviewed pertinent lab data. I answered all patient questions. I was involved in all medical decision making and agree with this plan. * Addie Alcantar - 11/14/2013 9:16 AM EDT Patient Name: Roxann Ceja Date of Appointment: 11/14/2013 Attending Physician: Radha Booker MD History of Presenting Illness: This is a 58 y.o. female patient with DM-1, here for follow-up today. She states she has difficultywith her blood sugars, which is affected by her gastroparesis, last BM 2wks ago. Now needs to wear a diaper because when the laxatives start to work, she develops fecal incontinence. Patient's pump settings haven't changed since last appointment with Adriana Kay. Covers her meals after eating d/t gastroparesis. After meals, does correct for hyperglycemia with bolus wizard. Did have a hypoglycemic episode requiring the assistance of others last night. Diabetes History: Initial diagnosis: DM-1, initially diagnosed at age 16. Has been on an insulin pump since 1998. Current outpatient regime includes: Patient does not know her insulin pump settings, uses her boluswizard. Basal insulin: 12am .7u, 4a .775u, 7:30am .80u, 3:30pm 0.7u, 7pm 0.775u. Total Basal dose 18.25u. Bolus: 1:12 insulin to carb ratio for breakfast, lunch. 1:10 for dinner. Insulin sensitivity 30. BGtarget 100-130. Insulin action 4hrs. Total daily insulin dose is 30-37. CBG monitorin-6 times daily. Averages 150-160. Most recent HA1c: 9.3 today, previously was 9.1 in August Typical diet: Seeing Dionna Polanco for dietary and diabetic education. Currently on a gastroparesis diet. Breakfast= cereal (low fiber). Lunch = cottage cheese, grape tomatoes, crackers. Dinner = salad, chicken or salmon. Snacks = canned fruit, yogurt, crackers. Eats frequent small snacks instead ofmeals. 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, +retinopathy since 1995 s/p photocoagulation Fasting CBG 195, 70, Pre-breakfast: not measured Post-breakfast: 176, 325, 255, Pre-lunch: 196, 73, 63, Post-lunch: 298, 235, 241, Pre-dinner: not measured Post-dinner: 302, 286, 297, 274, 366, 395, 133, Bedtime 99, 44 took a glucose shot then 72, 181, 182, 63 14 day average: 213 Diabetic Health Maintenance: Aspirin: - RYAN-inhibitor: + Beta-ron: - Statin: - Flu shot: + annual Pneumovax: + Smoking: quit Past Medical History: DM-1, as above Psoriatic arthritis HTN Hyperlipidemia Depression Asthma Fe-deficiency anemia GERD Constipation Hypothyroidism Hiatal hernia, now being evaluated for surgical repair. Social History: Alcohol use: - Cigarette use: Quit 1984, previously episodic socially Illicit drug use: - Family History: Mother: d/t [place] Father: d/t brain tumour age 82 Sister: 3 cancers - breast, cervical, skin MGF: pancreatic ca MGM: [place] d/t untreated rheumatic fever Allergies: Allergies Allergen Reactions ??? Codeine Phosphate Nausea Only ??? Propoxyphene N-Acetaminophen Nausea Only ROS: (+) for chronic constipation, +8lb weight gain. +feels hot moreso, (-) for Constitutional: No tiredness, recent weight change, no heat or cold intolerance Endocrine: No thyroid problems. No abnormal sweating or flushing. No galactorrhea or breast tenderness. Normal sexual desire. Integument: No excessive hair growth, balding, acne or oily skin. No ulcerations. No easily bruising. Neurological: No headache or weakness. No seizure, fainting or dizziness Eyes: No recent vision changes ENT: No dysphagia, dental issues Cardiovascular: No chest pain or palpitations Respiratory: No cough, wheezing, shortness of breath GI: Normal appetite. No nausea, vomiting, diarrhea, constipation : No frequent urinary tract infections or polyuria Musculoskeletal: No joint aches, muscle pain. No back pain Psychiatric: No depression, anxiety Vitals Last value Temperature Heart Rate Heart Rate: 80 Blood Pressure BP: 138/81 mmHg Respiratory Rate SpO2 Physical Exam: General appearance: pleasant female pt, appears stated age HEENT: anicteric, EOMI, MINOR, - lymphadenopathy, moist mucus membranes CVS: +S1, S2. - murmurs Pulm: clear to auscultation BL Abd: soft, non-tender, non-distended, +bowel sounds, no rebound or guarding Extremities: 2+ pulses peripherally, - edema, no wounds over feet Neurological: Non-focal Thyroid exam: - Tachycardia, lid lag, stare, proptosis, goiter, resting tremor, hyperreflexia, warm/moist/smooth skin, pre-tibial myxedema, thyroid acropachy(clubbing) Pertinent Laboratory Findings: Ref. Range 05/31/2013 14:26 08/25/2013 09:20 09/26/2013 14:08 11/14/2013 09:13 Hemoglobin A1C Latest Range: <=5.6 % 8.7 (H) 9.1 (H) 9.3 (H) Ref. Range 05/31/2013 14:26 Chol, Total Latest Range: <=199 mg/dL 163 HDL Latest Range: >=40 mg/dL 67 Chol/HDL Ratio No range found 2.4 LDL Chol Direct Latest Range: <=99 mg/dL 83 Ref. Range 05/31/2013 14:35 U Creatinine No range found 83 U Ran Malb Calc No range found 23 Assessment: This is a 58 y.o. year old female patient with Type-1 DM, on an insulin pump, complicated by gastroparesis. She is having predominantly hypergylcemic post- meal, and hypoglycemia appears to occur more-so prior to bed, and while fasting. I was unable to create a pump print-out today due to software issues, which will need to be done at the next appointment. Plan: -Pump settings were changed to increase basal rates as follows: 7:30AM - increase by 0.05 to 0.85u 3:30PM: increase by 0.05 to 0.75u -change to insulin-carb ratio 1:12 for all meals, which will essentially lower control in the evenings, to avoid future hypoglycemia prior to bedtime. -New pump settings are: Basal insulin: 12am .7u, 4a .775u, 7:30am .85u, 3:30pm 0.75u, 7pm 0.775u. Total Basal dose 18.85u. Bolus: 1:12 insulin to carb ratio for breakfast, lunch and dinner. Insulin sensitivity 30. BG target 100-130. Insulin action 4hrs. -Follow-up appointment with Adriana Kay in 3months -Patient has a glucagon pen, family members aware how to use it. This case has been discussed with Dr. Booker of Endocrinology. Addie Alcantar MD Endocrinology Fellow documented in this encounter Plan of Treatment Upcoming Encounters Date Type Department Care Team (Late st Contact Info) Description 05/17/2024 2:30 PM EST Office [place] [address] Alcides Bonilla MD [facility] [place] [address] 04/06/2049 9:00 AM EST Hospital Encounter [place] [phone] Harry Guerrero MD [facility] [place] [address] documented as of this encounter Visit Diagnoses Diagnosis Diabetes mellitus- Primary Type II or unspecified type diabetes mellitus without mention of complication, not stated as uncontrolled documented in this encounter Care Teams Repairer Hairspring Relationship Specialty Start Date End Date Nayla Miramontes MD [address] [place] [address] PCP - General 05/21/11 05/10/21 documented as of this encounter
--- OUTSIDE RECORDS SUMMARY | 2024-03-07 19:02 | XMS_ITS | Encounter Summary ---
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 7 insulin lispro (HUMALOG) injection Inject 65 Units subcutaneously continuous. Via insulin pump 8 polyethylene glycol (MIRALAX) 17 gram/dose powderIndications:Co nstipation Take 34 g by mouth daily for 30 days. 1020 g 6 10/25/2013 4 trimethobenzamide (TIGAN) 300 mg capsuleIndications:N &V [...] at bedtime 180 capsule 3 10/25/2013 6 esomeprazole (NEXIUM) 40 mg capsule Take 1 capsule by mouth 2 times daily. 60 capsule 6 10/25/2013 4 bisacodyl (DULCOLAX) 10 mg suppositoryIndicatio ns:Constipation Place 1 suppository rectally daily. 60 suppository 3 08/15/2013 5 Diabetic Supplies, Miscellan. MiscIndications:Type I (juvenile type) diabetes mellitus without mention of complication, not stated as uncontrolled Inject 1 each subcutaneously 4 times daily. Faxed pump and supply order to [facility] at [phone]. Dx Code: 250.01 100 each 12 08/08/2013 [...] mcg by mouth. 5 times a week. 08/04/201 6 levothyroxine (SYNTHROID) 75 mcg tablet Take 75 mcg by mouth. 2 x's a week 5 tolterodine (DETROL) 2 mg tablet Take 2 mg by mouth 2 times daily. 6 Diabetic Supplies, Miscellan. MiscIndications:Diab etes mellitus 1 each by Misc.(Non-Drug; Combo Route) route 6 times daily. Diagnosis: 250.91 Change infusion sets every 3 days Manually fax to [facility] Diabetes 600 each 3 05/30/2011 5 insulin [...] 2:30 PM EST Office [place] [phone] Alcides Bonilla MD [facility] [place] [place] [address] 04/06/2049 9:00 AM EST Hospital [place] [phone] Harry Guerrero MD [facility] 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 5.6% 5.7 [...] 1, S67-74 Estimated Average Glucose 220 mg/dL [facility] Comment: eAG equivalents for HbA1c percentages: HbA1c(%) ?eAG(mg/dL) 6.0 ?126 6.5 ?140 7.0 ?154 7.5 ?169 8.0 ?183 8.5 ?197 9.0 ?212 9.5 ?226 10.0 ? 240 Limitations: The eAG calculation has not been validated on women, individuals below 18 years old and above 70 years old, and individuals with hemoglobinopathies. Additional resources are available on the ADA website: http://Upverter.AccuNostics/DHMCadacalc Rich MCDANIEL, Brenda J, Wallace R, et al. ??Translating the A1C assay into estimated average glucose values. ??Diabetes Care 2008:31(8):3299-6444. 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
--- OUTSIDE RECORDS SUMMARY | 2024-03-07 19:02 | XMS_ITS | Encounter Summary ---
Author Organization [facility] [place] [address] Care Team Providers Care Ambulatory Care Name Role Phone Nayla Miramontes MD Primary Care Provider [phone] Encounter Details Date Type Department Care Team (Late Contact Info) Description 08/15/2013 Orders [place] [phone] Tamanna Nguyen APRN [facility] [place] [address] scan, colon (Primary Dx); Constipation; N&V (nausea and vomiting); Early satiety Social History Tobacco Use Types Packs/Day Years [...] 2:30 PM EST Office [place] [phone] Alcides Bonilla MD [facility] [place] [address] 04/06/2049 9:00 AM EST Hospital En[place] [address] Harry Guerrero MD [facility] DR GASTROENTEROLOGY [place] [address] Scheduled Orders Name Type Priority Associated Diagnoses Orde r Schedule COLONOSCOPY Procedures Routine Abnormal CT scan, colon Ordered: 08/15/2013 documented as of this encounter Results * NM gastric emptying scan (09/01/2013 3:01 PM EDT) Anatomical Region Laterality Modality Other 09/01/2013 3:01 PM EDT Narrative 09/01/2013 3:26 PM EDT Examination GASTRIC EMPTYING SCAN Clinical History N/V, r/o delayed gastric emptying, DM I Comparison Small-bowel follow-through 08/03/2013. No prior gastric emptying scans available for comparison. Technique A standard meal was labeled with 0.5 mCi of technetium-99m sulfur colloid and ingested. Images of the stomach were obtained in the anterior and posterior projections immediately thereafter and one, two, three, and four hours later. Findings Activity fills the stomach on the initial image. There is a small amount of activity seen in the small bowel at one hour. There is a small amount of activity present in the stomach at four hours. Quantitative Analysis Two hours: 58% remains in the stomach (normal <60%) Four hours: 17% remains in the stomach (normal <10%) Impression Mildly delayed gastric emptying as above. Procedure Note Lianet Calabrese MD - 09/01/2013 Examination GASTRIC EMPTYING SCAN Clinical History N/V, r/o delayed gastric emptying, DM I Comparison Small-bowel follow-through 08/03/2013. No prior gastric emptying scans available for comparison. Technique A standard meal was labeled with 0.5 mCi of technetium-99m sulfur colloidand ingested. Images of the stomach were obtained in the anterior andposterior projections immediately thereafter and one, two, three, and four hourslater. Findings Activity fills the stomach on the initial image. There is a small amountof activity seen in the small bowel at one hour. There is a small amount of activity present in the stomach at four hours. Quantitative Analysis Two hours: 58% remains in the stomach (normal <60%) Four hours: 17% remains in the stomach (normal <10%) Impression Mildly delayed gastric emptying as above. Harry Guerrero MD IMG NM ORDERABLES documented in this encounter Visit Diagnoses Diagnosis Abnormal CT scan, colon- Primary Nonspecific (abnormal) findings on radiological and other examination of gastrointestinal tract Constipation Unspecified constipation N&V (nausea and vomiting) Nausea with vomiting Early satiety N&V (nausea and vomiting) Nausea with vomiting Early satiety documented in this encounter Care Teams Ambulatory Care Relationship Specialty Start Date End Date Nayla Miramontes MD [facility] [address] [place] [address] PCP - General 05/21/11 05/10/21 documented as of this encounter
--- OUTSIDE RECORDS SUMMARY | 2024-03-07 19:02 | XMS_ITS | Encounter Summary ---
Author Organization [facility] [place] [address] Care Team Providers Care Spray Cementer Name Role Phone Nayla Miramontes MD Primary Care Provider [phone] Reason for Referral * Consultation (Routine) - Closed Specialty Diagnoses / Procedures Referred By Franklin laird Referred To Contact Endocrinology Diagnoses Type I (juvenile type) diabetes mellitus with neurological manifestations, uncontrolled(250.63) Radha Booker MD [facility] [place] [address] [facility] [address] [place] [id number] Referral ID Status Reason Start Date Expiration Date V isits Requested Visits Authorized [id number] Closed Specialty Service Requested 12/08/2013 06/06/2014 1 1 Reason for Visit * Reason Comments Diabetes Encounter Details Date Type Department Care Team (Late st Contact Info) Description 12/08/2013 1:00 PM EDT Office [place] [address] Dionna Polanco LD [facility] [place] [address] Type I (juvenile type) diabetes [...] Time Taken Comments Blood Pressure 98/67 12/08/2013 1:09 PM EDT from earlier appointment Pulse 74 12/08/2013 1:09 PM EDT Temperature - - Respiratory Rate - - Oxygen Saturation - - Inhaled Oxygen Concentration - - Weight 88.5 kg (195 lb) 12/08/2013 1:09 PM EDT from earlier appointment Height - - Body Mass Index 31.96 10/25/2013 1:45 PM EDT documented in this encounter Progress Notes * Dionna Polanco LD - 12/08/2013 1:55 PM EDT MiniMed Enlite Continuous Glucose Monitoring System Education Visit Laundry Washer/Dietitian: Dionna ROBLERO, RD, MS, CDE S: Roxann Ceja has 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 She ishere for a diabetes education session and will be trialing the MiniMed Enlite Continuous Glucose Monitoring System. She wears a [employer] MiniMed 523 insulin pump. Downloaded and results given to Dr. Booker O: Shaista inserted the sensor and hooked up the transmitter, started the sensor session, and was taught how to calibrate. Her low alert was set at 80 with repeat alarms. A: She has a good understanding of diabetes management and use of her insulin pump and the CGM. P: Roxann will wear the sensor continuously for six days and return the transmitter and loading checker by mail. She can download her pump/CGM via [employer] and I could give the report to her diabetes provider,Dr. Booker. This was a 30 minute education session. documented in this encounter Plan of Treatment Upcoming Encounters Date Type Department Care Team (Late st Contact Info) Description 05/17/2024 2:30 PM EST Office [place] [address] Alcides Bonilla MD [facility] [place] [address] 04/06/2049 9:00 AM EST Hospital En[place] [address] Harry Guerrero MD [facility] [place] [address] Scheduled Referrals Name Type Priority Associated Diagnoses Orde r Schedule Referral to Diabetic Education Outpatient Referral Routine Type I (juvenile type) diabetes mellitus with neurological manifestations, uncontrolled(250.63) Ordered: 12/08/2013 documented as of this encounter Visit Diagnoses Diagnosis Type I (juvenile type) diabetes mellitus with neurological manifestations, uncontrolled(250.63)- Primary Type I (juvenile type) diabetes mellitus with neurological manifestations, uncontrolled documented in this encounter Care Teams Spray Cementer Relationship Specialty Start Date End Date Nayla Miramontes MD [facility] [address] [facility] [address] [place] [address] PCP - General 05/21/11 05/10/21 documented as of this encounter
--- OUTSIDE RECORDS SUMMARY | 2024-03-07 19:02 | XMS_ITS | Encounter Summary ---
Author Organization [facility] [place] [address] Care Team Providers Care Concrete Mixing Plant Laborer Name Role Phone Nayla Miramontes MD Primary Care Provider [phone] Encounter Details Date Type Department Care Team (Late st Contact Info) Description 11/01/2013 Telephone Gastroenterology at [facility] [place] [address] Tamanna Nguyen APRN [facility] [place] [address] Social History Tobacco Use Types Packs/Day Years [...] Telephone Encounter - Tamanna Nguyen APRN - 11/01/2013 5:31 PM EDT Attempted to contact Mrs Ceja but she was unavailable and left a message with call back number. documented in this encounter Plan of Treatment Upcoming Encounters Date Type Department Care Team (Late st Contact Info) Description 05/17/2024 2:30 PM EST Office [place] [address] Alcides Bonilla MD [facility] [place] [address] 04/06/2049 9:00 AM EST Hospital Encounter Gastroenterology at [place] [phone] Harry Guerrero MD [facility] [place] [address] documented as of this encounter Visit Diagnoses Not on filedocumented in this encounter Care Teams Concrete Mixing Plant Laborer Relationship Specialty Start Date End Date Nayla Miramontes MD [facility] [address] [place] [address] PCP - General 05/21/11 05/10/21 documented as of this encounter
--- OUTSIDE RECORDS SUMMARY | 2024-03-07 19:02 | XMS_ITS | Encounter Summary ---
Author Organization [facility] [place] [address] Care Team Providers Care Endless Track Vehicle Supervisor Name Role Phone Nayla Miramontes MD Primary Care Provider [phone] Encounter Details Date Type Department Care Team (Late st Contact Info) Description 08/12/2013 Orders [place] [phone] Sonja Chavez MD [facility] [place] [address] Social History Tobacco Use Types Packs/Day Years [...] 2:30 PM EST Office [place] [address] Alcides Bonilla MD [facility] [address] 04/06/2049 9:00 AM EST Hospital Encounter [place] [address] Harry Guerrero MD [facility] [place] [address] documented as of this encounter Procedures Procedure Name Priority Date/Time Associated Diagnosis Comments FILM LIBRARY STORAGE ONLY CT ABDOMEN AND PELVIS Routine 08/12/2013 9:05 AM EDT documented in this encounter Results * Film Library- Storage only CT abdomen & pelvis (08/12/2013 9:05 AM EDT) Anatomical Region Laterality Modality Abdomen, Pelvis Other 08/12/2013 9:05 AM EDT Narrative 12/08/2013 9:11 AM EDT This is a Non-reportable exam Procedure Note 12/08/2013 This is a Non-reportable exam Sonja Chavez MD IM FILM LIBRARY ORD ERABLES documented in this encounter Visit Diagnoses Not on filedocumented in this encounter Care Teams Endless Track Vehicle Supervisor Relationship Specialty Start Date End Date Nayla Miramontes MD [facility] ANABELLA LÓPEZ [facility] [address] [place] [address] PCP - General 05/21/11 05/10/21 documented as of this encounter
--- OUTSIDE RECORDS SUMMARY | 2024-03-07 19:02 | XMS_ITS | Encounter Summary ---
Author Organization [facility] Address [facility] [place] [address] Care Team Providers Care Game Designer Name Role Phone Nayla Miramontes MD Primary Care Provider [phone] Encounter Details Date Type Department Care Team (Late st Contact Info) Description 12/08/2013 12:30 PM EDT Office Visit [place] [address] Dionna Polanco LD [facility] [place] [address] Radha Booker MD [facility] [place] [address] Type 1 diabetes mellitus with hypoglycemia and without coma (Primary Dx) Discharge Disposition: Home Social History [...] of this encounter Progress Notes * Radha Booker MD - 12/06/2013 8:32 PM EDT PRIMARY CARE PROVIDER: Valdemar Miramontes MD CC: Here for type 1 DM Date of Dx: 1970 Dx Code: 250.03 Regimen ____ oral agents only ____ basal insulin _x___ insulin/pump Diagnosis codes 250.03 _x__ Type 1 250.02 ____Type 2 Glucose test strip brand: bayer contour Number of Tests prescribed per day ___ 2 ___ 3 ___ 4 _x__ 5-8 ___>8 Prescriber: _ ALBERTINA Barrera MD x_BARBARA Tenorio _ Jamey Quinonez MD _ Corinne Pollack MD _ Aric Booker MD Justification for more than 3 tests a day ____ prevent severe hypoglycemia ____ prevent severe hyperglycemia ____ widely fluctuating blood sugars ____ overnight hypoglycemia Duration of need ___ lifetime until ___/___/___ Last Hga1c 9.3, 11/17 Regimen:Basal insulin: 12am .7u, 4a .775u, 7:30am .85u, 3:30pm 0.75u, 7pm 0.775u. Total Basal dose 18.85u. Bolus: 1:12 insulin to carb ratio for breakfast, lunch and dinner. Insulin sensitivity 30. BG target 100-130. Insulin action 4hrs. Complications: dentist-yrs- upcoming appt! ; eyes-PDR, s/p PDR- last visit spring 2013 ; Cr-0.87, 09/17 ; ma-23, 05/20 ; neuropathy-gastroparesis ; CAD-no ; lipids- TChol- 163 , HDL- 67, LDL-83, 05/20 DM health maintenance: beta ron- no; ASA- no ; RYAN/ARB-lisinopril 10 ; statin-no ; flu shot-2012 ; pneomovax- ; smoking-no ; TSH-2.72, 11/17 on levothyroxine 150 x 5 days, 75 x 2 days Since her last visit, Ms. Ceja has started taking her mealtime insulin after she eats and things are a little better, but blood sugars are still very erratic, range from 40 to 350 at anytime of day. On average, fasting sugars are around 240, after breakfast around 140, lunch about 180, after lunch about 180, supper 200, and evening 230. She does not feel her hypoglycemia, and has had some severe episodes of hypoglycemia unawareness in the past. EXERCISE: She is walking. DIET: For breakfast, she had a cup of cheerios. For lunch, some onion soup and a half chicken salad sandwich. Mid afternoon, Pretzel Thins. For supper, a half cup of Rotini pasta and tomato sauce. Evening snack, a cheese stick. She is trying to eat small amounts more frequently. She is still having a lot of GI symptoms with nausea and vomiting, early satiety, reflux with vomiting when she lies down at night and she has been seen in surgery clinic. They will evaluate to make sure she does not have esophageal stricture and then might consider what sounds like a Mckinley fundoplication to relieve a large hiatal hernia. She also has gastroparesis and is seen regularly in the GI clinic. OTHER COMPLICATIONS: She is status post panretinal photocoagulation for diabetic retinopathy and sees Dr. Hewitt and Dr. Young regularly. Renal function has been good. No symptoms of peripheral neuropathy, has gastroparesis. No cardiac disease. Lipids have been under good control. PAST MEDICAL HISTORY: Type 1 diabetes complicated by autonomic neuropathy with gastroparesis and proliferative diabetic retinopathy, psoriatic arthritis on Humira, hypertension, hyperlipidemia, depression, asthma, iron deficiency anemia, GERD, stress urinary bladder incontinence, hiatal hernia, constipation, and hypothyroidism. PAST SURGICAL HISTORY: Vitrectomy. Current Outpatient Prescriptions Medication Sig Dispense Refill ??? esomeprazole (NEXIUM) [...] daily. Faxed pump and supply order to [employer] at [phone]. Dx Code: 250.01 100 each 12 ??? [...] sets every 3 days Manually fax to [employer] Diabetes 600 each 3 ??? insulin glargine (LANTUS) 100 unit/mL vial injection Inject 18 Units subcutaneously daily. 1 vial = 10ml = 1,000 units Indications: Type 1 Diabetes Mellitus 10 mL 5 ??? melatonin 3 mg Tab Take 9 mg by mouth nightly. ??? MULTI-VITAMIN ORAL Take 1 tablet by mouth daily. Allergies Allergen Reactions ??? Codeine Phosphate Nausea Only ??? Propoxyphene N-Acetaminophen Nausea Only SOCIAL HISTORY: Unemployed, . Her is retired. She is applying for disability. She quit smoking in 1984, nondrinker. COMPLETE REVIEW OF SYSTEMS: Positive for GI symptoms, otherwise negative. PHYSICAL EXAMINATION: Blood pressure 98/67, pulse 74, weight 195 pounds. In general, she looks well. Her skin is smooth, warm and dry with hypertrophic toenails, but no ulcerations. Cardiovascular: 2+ pulses. No edema. On neurologic exam, she has decreased light touch sensation in the left great toe, otherwise light touch sensation was very good. Motor strength and tone are normal. Psych: Mood and affect are appropriate. LABORATORY TESTS: In November, hemoglobin A1c 9.3 and TSH 2.72. IMPRESSION: 1. Diabetes. Blood sugar control has been poor. She is wearing a glucose sensor now. If she finds her overnight blood sugars are consistently high without hypoglycemia, she will increase her overnight basal rates by 0.025 units per hour and we will see if any other patterns to wearing the sensor. 2. Hypothyroidism is well-compensated on her current levothyroxine. PLAN: Followup with Roseanne Kay in three months. We will check hemoglobin A1c at that time. documented in this encounter Plan of Treatment Upcoming Encounters Date Type Department Care Team (Late st Contact Info) Description 05/17/2024 2:30 PM EST Office Visit [place] [address] Alcides Bonilla MD [facility] [place] [address] 04/06/2049 9:00 AM EST Hospital Encounter [place] [address] Harry Guerrero MD [facility] DR [place] [address] documented as of this encounter Results * (ABNORMAL) Hemoglobin A1c (03/13/2014 10:24 AM EST) Hemoglobin A1c 8.7(H) <=5.6 % ISABEL Webber [facility] Comment: Reference Range: 4.3 - 5.6% [...] Mellitus, Diabetes Care 2013; 36: Suppl. 1, U77-73 Estimated Average Glucose 203 mg/dL [facility] Comment: eAG equivalents for HbA1c percentages: HbA1c(%) ?eAG(mg/dL) 6.0 ?126 6.5 ?140 7.0 ?154 7.5 ?169 8.0 ?183 8.5 ?197 9.0 ?212 9.5 ?226 10.0 ? 240 Limitations: The eAG calculation has not been validated on women, individuals below 18 years old and above 70 years old, and individuals with hemoglobinopathies. Additional resources are available on the ADA website: http://Joldit.com.com/DHMCadacalc Rich MCDANIEL, Brenda J, Wallace R, et al. ??Translating the A1C assay into estimated average glucose values. ??Diabetes Care 2008:31(8):8397-3325. Blood specimen (specimen) 03/13/2014 10:24 AM EST 03/13/2014 10:32 AM EST Narrative Resulting Agency Comment Spec In Lab Radha Booker MD CHEMISTRY ORDERAB LES [facility] documented in this encounter Visit Diagnoses Diagnosis Type 1 diabetes mellitus with hypoglycemia and without coma- Primary Type I (juvenile type) diabetes mellitus with other specified manifestations, not stated as uncontrolled documented in this encounter Care Teams Game Designer Relationship Specialty Start Date End Date Nayla Miramontes MD [address] [facility] [address] [place] [address] PCP - General 05/21/11 05/10/21 documented as of this encounter
--- OUTSIDE RECORDS SUMMARY | 2024-03-07 19:02 | XMS_ITS | Encounter Summary ---
[place] [address] Care Team Providers Care Packaging Clerk Name Role Phone Nayla Miramontes MD Primary Care Provider [phone] Encounter Details Date Type Department Care Team (Latest Contact Info) Description 09/01/2013 10:30 AM EDT - 09/01/2013 11:59 PM EDT Hospital Encounter [place] [phone] CLINIC, DR ROSAS N&V (nausea and vomiting); Early satiety Social [...] daily. Faxed pump and supply order to [employer] at [phone]. Dx Code: 250.01 100 each 12 08/08/2013 [...] sets every 3 days Manually fax to [facility] [employer] [facility] 600 each 3 05/30/2011 5 insulin [...] 2:30 PM EST Office [place] [address] Alcides Bonilla MD [facility] [place] [address] 04/06/2049 9:00 AM EST Hospital Encounter [place] [address] Harry Guerrero MD [facility] [place] [address] documented as of this encounter Procedures Procedure Name Priority Date/Time Associated Diagnosis Comments NM GASTRIC EMPTYING SCAN Routine 09/01/2013 3:01 PM EDT N&V (nausea and vomiting) Early satiety documented in this encounter Results * NM gastric emptying [...] documented in this encounter Visit Diagnoses Diagnosis N&V (nausea and vomiting) Nausea with vomiting Early satiety documented in this encounter Care Teams Packaging Clerk Relationship Specialty Start Date End Date Nayla Miramontes MD [facility] [address] [place] [address] PCP - General 05/21/11 05/10/21 documented as of this encounter
--- OUTSIDE RECORDS SUMMARY | 2024-03-07 19:02 | XMS_ITS | Encounter Summary ---
Author Organization [facility] [address] [place] [address] Care Team Providers Care Beveler Name Role Phone Nayla Miramontes MD Primary Care Provider [phone] Reason for Visit * Reason Comments Advice Only Encounter Details Date Type Department Care Team ([facility] st Contact Info) Description 08/15/2013 Telephone [place] [phone] Sierra Diaz, RN DEPT OF GASTROENTEROLOGY Advice Only Social History Tobacco Use Types Packs/Day [...] Telephone Encounter - Sierra Stoner RN - 08/15/2013 4:24 PM EDT Per Tamanna Nguyen, INDUSTRIAL MACHINE SYSTEM TECHNICIAN: Bowel clean out: clear liquids x 48 hours. Day 1: mag citrate Day 2: mag citrate Day Three : return to diabetic diet Amitiza 24mcg BID, miralax 2 cap fulls qhs. Dulcolax qod if no bm. Colonoscopy to rule out inflammation, stricture, narrowing or mass. Pt verbalized understanding. documented in this encounter Plan of Treatment Upcoming Encounters Date Type Department Care Team (Late st Contact Info) Description 05/17/2024 2:30 PM EST Office Visit Gastroenterology at [place] [phone] Alcides Bonilla MD [facility] [place] [address] 04/06/2049 9:00 AM EST Hospital Encounter [place] [phone] Harry Guerrero MD [facility] DR GASTROENTEROLOG[place] [address] documented as of this encounter Visit Diagnoses Not on filedocumented in this encounter Care Teams Beveler Relationship Specialty Start Date End Date Nyala Miramontes MD [facility] ANABELLA LÓPEZ [facility] [address] [place] [address] PCP - General 05/21/11 05/10/21 documented as of this encounter
--- OUTSIDE RECORDS SUMMARY | 2024-03-07 19:02 | XMS_ITS | Encounter Summary ---
Author Organization [facility] Address [facility] [place] [address] Care Team Providers Care Glued Wood Tester Name Role Phone Nayla Miramontes MD Primary Care Provider [phone] Reason for Visit * Reason Comments Results Encounter Details Date Type Department Care Team ([facility] Contact Info) Description 08/18/2013 10:00 AM EDT Office Visit Psychiatry [place] [address] Jann Givens, PhD [facility] [place] [address] Cognitive disorder (Primary Dx) Social History Tobacco Use Types [...] as of this encounter Progress Notes * Jann Givens, PhD - 08/22/2013 11:39 AM EDT CONFIDENTIAL FEEDBACK NOTE ON NEUROPSYCHOLOGICAL EVALUATION Patient's Name: Roxann Jimenez#: [id number] Date of Evaluation: 07/13/2013 Sex: Female Date of : 1955 Age: 57 years Education: 16+ years Date of Feedback: 08/18/2013 Lateral Dominance: Right-handed Referral Source: Darryl Burgos M.D. Mrs. Ceja and her received a 30-minute in person feedback session regarding the results of her [facility] neuropsychological evaluation. Findings and recommendations were reviewed. The results revealed difficulty with memory, attention, executive function, and motor skills. Mrs. Ceja noted that her cognitive problems largely began following an episode of diabetic ketoacidosis which resulted in a five day coma in April 2011. Thus, her current difficulties likely reflect ongoing residual symptoms related to this event. However, she has a number of vascular-related healthconditions, in addition to diabetes, which may be impacting her cognitive functioning as well. Furthermore, she endorsed elevated levels of affective distress, sleep difficulty, and daytime fatigue, all of which can adversely impact cognition. Mrs. Ceja and her understood the results of the evaluation and did not have any further questions at this time. Time was spent discussing recommendations provided in the original report. The full report is available for review in [facility]. They were encouraged to contact our office should further questions arise. Thank you for referring Mrs. Ceja for evaluation. Please contact us at [phone] if we canbe of further assistance. Lucia Ponce, Ph.D. Jann Givens, Ph.D. Neuropsychology Postdoctoral Fellow Clinical Neuropsychologist Flume Ride Operatorinternational recruiter This note was prepared by Lucia Ponce, Ph.D., Postdoctoral Fellow in Neuropsychology, under thesupervision of Jann Givens, Ph.D. documented in this encounter Plan of Treatment Upcoming Encounters Date Type Department Care Team (Late st Contact Info) Description 05/17/2024 2:30 PM EST Office [place] [address] Alcides Bonilla MD [facility] [place] [address] 04/06/2049 9:00 AM EST Hospital Encounter [place] [address] Harry Guerrero MD [facility] [place] [address] documented as of this encounter Visit Diagnoses Diagnosis Cognitive disorder- Primary Unspecified persistent mental disorders due to conditions classified elsewhere documented in this encounter Care Teams Glued Wood Tester Relationship Specialty Start Date End Date Nayla Miramontes MD [facility] ANABELLA LÓPEZ [facility] [address] [place] [address] PCP - General 05/21/11 05/10/21 documented as of this encounter
--- OUTSIDE RECORDS SUMMARY | 2024-03-07 19:02 | XMS_ITS | Encounter Summary ---
Author Organization [facility] [place] [address] Care Team Providers Care Client Experience Specialist Name Role Phone Nayla Miramontes MD Primary Care Provider [phone] Reason for Visit * Reason Comments Follow-up Encounter Details Date Type Department Care Team ([facility] st Contact Info) Description 09/26/2013 1:00 PM EDT [place] [address] Darryl Burgos MD [facility] [place] [address] Psoriatic arthritis; Psoriasis; Vitamin D deficiency Discharge Disposition: Home Social History Tobacco [...] Reading Time Taken Comments Blood Pressure 130/59 09/26/2013 1:15 PM EDT Pulse 89 09/26/2013 1:15 PM EDT Temperature 36.7 ??C (98 ??F) 09/26/2013 1:15 PM EDT Respiratory Rate - - Oxygen Saturation 99% 09/26/2013 1:15 PM EDT Inhaled Oxygen Concentration - - Weight 88.2 kg (194 lb 6.4 oz) 09/26/2013 1:15 P M EDT Height 166.2 cm (5' 5.43) 09/26/2013 1:15 PM ED T Body Mass Index 31.92 09/26/2013 1:15 PM EDT documented in this encounter Patient Instructions * Patient Instructions* Darryl Burgos MD - 09/26/2013 1:56 PM EDT 1) Start every other week Humira, 40 mg. 2) Continue Flexeril, 5 mg in the morning and 10 mg at bedtime. 3) Continue bedtime neurontin, 600 mg. 4) Check labs today. 5) Get MRI studies of the brain. 6) Return to follow up in two months. documented in this encounter Progress Notes * Darryl Burgos MD - 09/26/2013 1:39 PM EDT REASON FOR VISIT: Follow up for psoriatic arthritis and psoriasis. INTERVAL HISTORY: The pt was a 58-year-old female, who returned for a follow up of psoriatic arthritis and psoriasis. The pt noted that since her last visit on July 25, 2013, she continued to be on Celebrexfor pain control. She felt that her overall joint pain and back pain was poor control while on Celebrex. Overall, the pain was worst in her knees, followed by the back. She also complained of intermittent bilateral knee buckling, resulting in mechanical falls. She was currently on bedtime Flexeril,10 mg and daytime Flexeril, 5 mg for symptomatic control of her muscle spasms. She was also on bedtime Neurontin, 600 mg for symptomatic pain control. She felt that Neurontin provided some pain relief. Otherwise, she had no fever, chest pain, dyspnea, dysuria, headache, easy bruising, rash, or polydipsia. She did complain of persistent nausea and worsening poor memory. PAST MEDICAL HISTORY: Psoriatic arthritis Psoriasis Diabetes mellitus I, on insulin pump, poorly controlled (Hba1c = 8.5) Diabetic ketoacidosis Diabetic gastroparesis Proliferative diabetic retinopathy [...] with her family. 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 She was currently applying for disability. FAMILY HISTORY: ?Mother - Hypertension, hyperlipidemia, hypothyroidism; of cardiac aneurysm at the age of 48. Father - Stroke x two; of a brain tumor at the age of 82. ? PHYSICAL EXAMINATION: Vitals 09/26/2013 SYSTOLIC 130 DIASTOLIC 59 PULSE 89 TEMPERATURE 98 Height (Palestinian) 5' 5.433 Height (Metric) 166.2 cm Weight (Palestinian) 194 lbs 6 oz Weight (Metric) 88.179 kg BODY MASS INDEX 31.92 kg/m2 Pulse Oximetry 99 General - Alert, co-operative, no apparent distress, oriented x 3. HEENT - PERRL, EOMI bilaterally, conjunctiva pink, no sclerae icterus or malar rash. Heart - Regular rate and rhythm, normal [...] and PIP joint discomfort on palpation; + mild synovitis of bilateral 2nd and 3rd PIP joints; no joint effusion; + soft [...] Psoriatic arthritis and 2) psoriasis in a 58-year-old female. The pt's psoriatic arthritis and psoriasis was under poor control while on Celebrex alone. She previously failed to respond to methotrexate due to inadequate efficacy and worsening nausea. The pt will start every other week adalimumab injection for immunosuppression. 3) Right knee osteoarthritis and instability. The pt's right knee pain and instability is related to osteoarthritis and multiple structural defects. She will be considered for a orthopedic consult. Meanwhile, she will focus on symptomatic pain control. 4) Severe leftward lumbar scoliosis at L2-L3 (26 degrees). The pt's severe back pain is related to both severe leftward lumbar scoliosis at L2-L3 (26 degrees) and inflammatory back disease. She will focus on symptomatic control for now. She will need adalimumab for immunosuppression. Meanwhile, shewill continue Flexeril for symptomatic control. 5) Frontotemporal and subcortical systems dysfunction. The pt was noted to have severe deficits in her memory, attention, executive function, and motor skills, suggestive of frontotemporal and subcortical systems dysfunction. The pt was recommended to undergo imaging studies of the brain for further evaluation. She will also be considered for a Neurology consult pending on the imaging studies of the brain. She did not undergo MRI studies of the brain since her last visit. RECOMMENDATIONS: 1) Start every other week Humira, 40 mg. 2) Continue Flexeril, 5 mg in the morning and 10 mg at bedtime. 3) Continue bedtime Neurontin, 600 mg. 4) Check labs today. 5) Get MRI studies of the brain. 6) Return to follow up in two months. ? Darryl Burgos MD, PhD documented in this encounter Plan of Treatment Upcoming Encounters Date Type Department Care Team (Late st Contact Info) Description 05/17/2024 2:30 PM EST Office [place] [phone] Alcides Bonilla MD [facility] [place] [address] 04/06/2049 9:00 AM EST Hospital Encounter Gastroenterology [place] [phone] Harry Guerrero MD [facility] DR GASTROENTEROLOGY DEPT. [place], [place] [id number] documented as of this encounter Procedures Procedure Name Priority Date/Time Associated Diagnosis Comments URINALYSIS DIPSTICK Routine 09/26/2013 2 :13 PM EDT Psoriatic arthritis Psoriasis HEMOGRAM Routine 09/26/2013 2:08 PM EDT Psoriatic arthritis Psoriasis DIFFERENTIAL, AUTOMATED Routine 09/26/2013 2:08 PM EDT Psoriatic arthritis Psoriasis VITAMIN D, 25-HYDROXY Routine 09/26/2013 2:08 PM EDT Vitamin D deficiency SEDIMENTATION RATE Routine 09/26/2013 2: 08 PM EDT Psoriatic arthritis Psoriasis CBC (WITH DIFF) Routine 09/26/2013 2:08 PM EDT Psoriatic arthritis Psoriasis CRP, CARDIAC RISK (HS CRP) Routine 09/26/2013 2:08 PM EDT Psoriatic arthritis Psoriasis HEPATIC FUNCTION PANEL Routine 4 2:08 PM EDT Psoriatic arthritis Psoriasis BASIC METABOLIC PANEL Routine 09/26/2013 2:08 PM EDT Psoriatic arthritis Psoriasis documented in this encounter Results * (ABNORMAL) Urinalysis without microscopic (09/26/2013 2:13 PM EDT) [facility] Glucose, Urine Dipstick >1000(Critic al) Negative mg/dL CERNER MILLENNIUM Comment: Urinalysis result NOT critical without a combination of Glucose greater than 1000mg/dl AND Ketones greater than 80mg/dl. Protein, Urine Dipstick Negative mg/dL [facility] MILLENNIUM Bilirubin, Urine Dipstick Negative Negative mg/dL [facility] MILLENNIUM Comment: Clinical correlation required for positive Urine Bilirubin results as false positive may occur with some drugs and drug related products. If a false positive is suspected a serum total bilirubin should be considered if clinically indicated. Urobilinogen, Urine Dipstick Normal mg/dL [facility] MILLENNIUM pH, Urn (dipstick) 6.5 5.0 - 8.0 [facility] MILLENNIUM Blood, Urine Dipstick Negative mg/dL [facility] MILLENNIUM Ketone, Urine Dipstick Negative mg/dL [facility] MILLENNI[facility] Nitrite, Urine Dipstick Negative [facility] MILLENNIUM Leukocytes, Urine Dipstick Moderate mcL [facility] MILLENNI[facility] Appearance, Urine Dipstick Clear Clear C[facility] MILLENNIUM Specific [place] Urine Automated 1.022 1.002 - 1.030 [facility] MILLENNIUM Color, Urine Dipstick Yellow Yellow [facility] MILLENNIUM Urine specimen (specimen) 09/26/2013 2:13 PM EDT 09/26/2013 2:19 PM EDT Narrative Resulting Agency Comment Spec In Lab Darryl Burgos MD URINE ORDERABLES [facility] MILLENNIUM * Differential, Automated (09/26/2013 2:08 PM EDT) Pathologist [facility] Neutrophil % 58.9 34.0 - 71.0 % [facility] MILLENNIUM Neutrophil Absolute 4.06 1.50 - 6.30 x10(3)/mcL C[facility] MILLENNIUM Lymph % 31.6 19.0 - 53.0 % [facility] MILLENNIUM Lymphocytes Abs 2.2 1.0 - 3.6 x10(3)/mcL [facility] MILLENNIUM Monocyte % 5.9 4.0 - 13.0 % [facility] MILLENNIUM Monocyte Abs 0.4 0.2 - 1.0 x10(3)/mcL [facility] MILLENNIUM Eos % 2.9 0.0 - 7.0 % [facility] MILLENNIUM Eosinophils Abs 0.2 0.0 - 0.5 x10(3)/mcL [facility] MILLENNIUM Basophil % 0.6 0.0 - 2.0 % [facility] MILLENNIUM Baso Absolute 0.0 0.0 - 0.2 x10(3)/mcL [facility] MILLENNIUM Immature Gran % 0.10 0.00 - 0.66 % [facility]ER MILLENNIUM Comment: Immature granulocytes(IG's)percentage and absolute count will include metamyelocytes, myelocytes, and promyelocytes. Blood smears from CBCs yielding IG's will be scanned manually for concordance. If this scan disagrees with the automated IG or if promyelocytes are noted, a manual differential will be performed. Immature Gran Absolute 0.01 0.00 - 0.05 x10(3)/mcL [facility] MILLENNIUM Blood specimen (specimen) 09/26/2013 2:08 PM EDT 09/26/2013 2:19 PM EDT Narrative Resulting Agency Comment Spec In Lab Darryl Burgos MD HEMATOLOGY ORDERABLE S [facility] * Hemogram (09/26/2013 2:08 PM EDT) White Blood Cell 6.9 4.0 - 10.0 x10(3)/mcL CERNER MILLENNIUM Red Blood Cell 4.98 3.93 - 5.22 x10(6)/mcL [facility] MILLENNIUM Hemoglobin 14.3 11.2 - 15.7 gm/dL [facility] MILLENNIUM Hematocrit 43.1 34.0 - 45.0 % CERNER MILLENNIUM Mean Cell Volume 86.5 79.0 - 94.0 fL CERN[facility] MILLENNIUM Mean Cell Hemoglobin 28.7 26.6 - 32.2 pg CERNER MILLENNIUM Mean Cell Hemoglobin Concentration 33.2 32.0 - 36.5 gm/dL CERNER MILLENNIUM Platelet 354 145 - 370 x10(3)/mcL CERNER MILLENNIUM RDW Standard Deviation 40.8 35.0 - 46.0 fL CERNER MILLENNIUM RDW coefficient of variation 12.9 10.9 - 14.4 % CERNER MILLENNIUM Mean Platelet Volume 9.5 9.0 - 12.0 fL [facility] Blood specimen (specimen) 09/26/2013 2:08 PM EDT 09/26/2013 2:19 PM EDT Narrative Resulting Agency Comment Spec In Lab Darryl Burgos MD HEMATOLOGY ORDERABLE S Performing Organization Address [facility] de Phone Number [facility] * VIT D Total Evaluation (09/26/2013 2:08 PM EDT) Vitamin D Total 25 OH 47 30 - 100 ng/mL [facility] Comment: Deficient <10 ng/mL Insufficient 10 to 29 ng/mL Sufficient 30 to 100 ng/mL Potential Intoxication >100 ng/mL According to the [place] National Osteoporosis Foundation, Vitamin D concentrations >30 ng/mL are sufficient to protect bone health. ??The National Kidney Foundation has similarly stated that patients with Vitamin D concentrations <30ng/mL should be considered to be insufficient or deficient. http://Cl[employer]ak[employer]/[facility] H[facility]ETTAnatlkidneyfoundation http://Cloakware/DHVitD The IDS iSYS Vitamin D Immunoassay detects both 25-OH Vitamin D2 and 25-OH Vitamin D3, but only a total Vitamin D concentration is reported. Blood specimen (specimen) 09/26/2013 2:08 PM EDT 09/26/2013 2:19 PM EDT Narrative Resulting Agency Comment Spec In Lab Darryl Burgos MD CHEMISTRY ORDERABLES Performing Organization Address [facility] de Phone Number [facility] * High Sensitivity CRP (09/26/2013 2:08 PM EDT) C-Reactive Protein High Sensitivity 5.9 mg/L [facility] Comment: Interpretations: 1) For accurate cardiac risk [...] and Cardiovascular Disease. ??Circulation 2003; 107:499-511 2. Ridker PM. ??Clinical applications of C-reactive protein for cardiovascular disease detection and prevention. ??Circulation 2003; 107:363-369 Blood specimen (specimen) 09/26/2013 2:08 PM EDT 09/26/2013 2:19 PM EDT Narrative Resulting Agency Comment Spec In Lab Darryl Burgos MD CHEMISTRY ORDERABLES Performing Organization Address City/[facility] Co de Phone Number [facility]ER MILLENNIUM * Sedimentation rate (09/26/2013 2:08 PM EDT) Sedimentation Rate Automated 12 0 - 20 mm/hr [facility] MILLENNIUM Blood specimen (specimen) 09/26/2013 2:08 PM EDT 09/26/2013 2:19 PM EDT Narrative Resulting Agency Comment Spec In Lab Darryl Burgos MD HEMATOLOGY ORDERABLE S Performing Organization Address [facility] de Phone Number [facility]ER MILLENNIUM * Hepatic Function Panel (09/26/2013 2:08 PM EDT) Protein, Total 7.5 6.4 - 8.3 gm/dL CERNER MILLENNIUM Albumin 4.2 3.2 - 5.2 gm/dL [facility] MILLENNIUM Aspartate Aminotransferase 18 0 - 30 unit/L [facility] MILLENNIUM Alanine Aminotransferase 16 0 - 30 unit/L [facility]ER MILLENNIUM Alkaline Phosphatase 75 40 - 104 unit/L [facility]ER MILLENNIUM Bilirubin, Total 0.7 0.2 - 1.3 mg/dL [facility] MILLENNIUM Bilirubin, Direct 0.1 0.0 - 0.3 mg/dL [facility] MILLENNIUM Blood specimen (specimen) 09/26/2013 2:08 PM EDT 09/26/2013 2:19 PM EDT Narrative Resulting Agency Comment Spec In Lab Darryl Burgos MD CHEMISTRY ORDERABLES [facility]ERMAGDALENA DE LEON * (ABNORMAL) Basic Metabolic Panel (non-fasting) (09/26/2013 2:08 PM EDT) Glucose 253(H) 60 - 199 mg/dL [facility]ER MILLENNIUM Comment:Diabetes: >=200 mg/d L plus symptoms Blood Urea Nitrogen 18 8 - 18 mg/dL CERN[facility] MILLENNIUM Creatinine 0.87 0.70 - 1.20 mg/dL [facility]ERNER MILLENNIUM Comment: Please note that the pediatric reference intervals supplied above were not validated at [facility]. Results from pediatric patients should be interpreted in conjunction to the patient's age, height and muscle mass. Sodium 139 135 - 145 mmol/L CERNER MILLENNIUM Potassium 4.1 3.5 - 5.0 mmol/L [facility]ERN[facility] MILLENNIUM Comment: Please note: ??Patients with WBC >100,000 may have falsely elevated Potassium levels. ??For accurate Potassium quantification in these patients send serum separator tube (gold top) for subsequent determinations. ??Contact the Clinical Chemistry Laboratory if there are any questions. Chloride 99 98 - 107 mmol/L CERNER MILLENNIUM Carbon Dioxide 32(H) 22 - 31 mmol/L CERNER MILLENNIUM Anion Gap 8 5 - 15 mmol/L CERNER MILLENNIUM Calcium 9.8 8.5 - 10.5 mg/dL CERNER MILLENNIUM Est Glomerular Filtration Rate [...] the following links into your internet browser. http://Cloakware/DHnkdep http://Cloakware/[facility] HENRYETTAnkf Blood specimen (specimen) 09/26/2013 2:08 PM EDT 09/26/2013 2:19 PM EDT Narrative Resulting Agency Comment Spec In Lab Darryl Burgos MD CHEMISTRY ORDERABLES Performing Organization Address City/State/ZIP Co tn Phone Number [facility] documented in this encounter Visit Diagnoses Diagnosis Psoriatic arthritis Psoriatic arthropathy Psoriasis Other psoriasis Vitamin D deficiency Unspecified vitamin D deficiency documented in this encounter Care Teams Client Experience Specialist Relationship Specialty Start Date End Date Nayla Miramontes MD [address] [place] [address] PCP - General 05/21/11 05/10/21 documented as of this encounter
--- OUTSIDE RECORDS SUMMARY | 2024-03-07 19:02 | XMS_ITS | Encounter Summary ---
Author Organization [facility] [place] [address] Care Team Providers Care Yarn Finisher Name Role Phone Nayla Miramontes MD Primary Care Provider [phone] Encounter Details Date Type Department Care Team (Late st Contact Info) Description 08/12/2013 Orders [place] [phone] Sonja Chavez MD [facility] [place] [address] Social History Tobacco Use Types Packs/Day Years [...] 2:30 PM EST Office [place] [address] Alcides Bonilla MD [facility] [place] [address] 04/06/2049 9:00 AM EST Hospital Encounter [place] [address] Harry Guerrero MD [facility] DR GASTROENTEROLOGY [place] [address] documented as of this encounter Procedures Procedure Name Priority Date/Time Associated Diagnosis Comments FILM LIBRARY STORAGE ONLY DX ABDOMEN Routine 08/12/2013 9:05 AM EDT documented in this encounter Results * Film Library- Storage only DX Abdomen (08/12/2013 9:05 AM EDT) Anatomical Region Laterality Modality Other 08/12/2013 9:05 AM EDT Narrative 12/08/2013 9:09 AM EDT This is a Non-reportable exam Procedure Note 12/08/2013 This is a Non-reportable exam Sonja Chavez MD IM FILM LIBRARY ORD ERABLES documented in this encounter Visit Diagnoses Not on filedocumented in this encounter Care Teams Yarn Finisher Relationship Specialty Start Date End Date Nayla Miramontes MD [address] [place] [address] [facility] [address] [place] [address] PCP - General 05/21/11 05/10/21 documented as of this encounter
--- OUTSIDE RECORDS SUMMARY | 2024-03-07 19:02 | XMS_ITS | Encounter Summary ---
Author Organization [facility] [place] [address] Care Team Providers Care Dry Primer Powder Blender Name Role Phone Nayla Miramontes MD Primary Care Provider [phone] Reason for Referral * Consultation (Routine) - Closed Specialty Diagnoses / Procedures Referred By Franklin laird Referred To Contact Neurology Diagnoses Memory deficit Cognitive deficits Frontotemporal brain disease Darryl Burgos MD [facility] [place] [address] [facility] Neurology [address] [place] [id number] Referral ID Status Reason Start Date Expiration Date V isits Requested Visits Authorized [id number] Closed Consult, Test & Treat 12/03/2013 06/01/2014 1 1 Reason for Visit * Reason Comments Follow-up Encounter Details Date Type Department Care Team (Late st Contact Info) Description 11/30/2013 3:20 PM EDT [place] [address] Darryl Burgos MD [facility] [place] [address] Memory deficit; Cognitive deficits; Frontotemporal brain disease Discharge Disposition: Home Social History Tobacco Use [...] * Patient Instructions* Darryl Burgos MD - 12/03/2013 12:09 PM EDT 1) Start every other week Humira, 40 mg. 2) Continue Flexeril, 5 mg in the morning and 10 mg at bedtime. 3) Continue bedtime Neurontin, 600 mg. 4) Refer to Neurology Clinic. 5) Return to follow up in three months. documented in this encounter Progress Notes * Darryl Burgos MD - 11/30/2013 3:02 PM EDT REASON FOR VISIT: Follow up for psoriatic arthritis and psoriasis. INTERVAL HISTORY: The pt was a 58-year-old female, who returned for a follow up of psoriatic arthritis and psoriasis. The pt noted that since her last visit on September 26, 2013, she continued to be on Celebrex for pain control. She felt that her overall joint pain and back pain was poor control while on Celebrex. Overall, the pain was worst in her knees, followed by the back. She just received her adalimumab shipment about two and a half weeks ago, but she had yet started adalimumab injection. She was currently on bedtime Flexeril, 10 [...] of persistent nausea and worsening poor memory. MRI studies of the brain obtained on October 28, 2013 were normal. PAST MEDICAL HISTORY: Psoriatic arthritis Psoriasis Diabetes [...] family. 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 She was currently applying for disability. FAMILY HISTORY: ?Mother - Hypertension, hyperlipidemia, hypothyroidism; of cardiac aneurysm at the age of 48. Father - Stroke x two; of a brain tumor at the age of 82. ? PHYSICAL EXAMINATION: General - Alert, co-operative, no apparent distress, oriented x 3. HEENT - PERRL, EOMI bilaterally, conjunctiva pink, no sclerae icterus or malar rash. Neck - + Slight decrease in range of motion of the neck [...] while on Celebrex alone. She previously failed methotrexate due to inadequate [...] studies of the brain for further evaluation. Since her MRI studies of the brain were normal, she will be referred to Neurology Clinic for further evaluation. RECOMMENDATIONS: 1) Start every other week Humira, 40 mg. 2) Continue Flexeril, 5 mg in the morning and 10 mg at bedtime. 3) Continue bedtime Neurontin, 600 mg. 4) Refer to Neurology Clinic. 5) Return to follow up in three months. ? Darryl Burgos MD, PhD documented in this encounter Plan of Treatment Upcoming Encounters Date Type Department Care Team (Late st Contact Info) Description 05/17/2024 2:30 PM EST Office [place] [address] Alcides Bonilla MD [facility] [place] [address] 04/06/2049 9:00 AM EST Hospital En[place] [address] Harry Guerrero MD [facility] [place] [address] Scheduled Referrals Name Type Priority Associated Diagnoses Orde r Schedule Referral to Neurology Outpatient Referral Routine Memory deficit Cognitive deficits Frontotemporal brain disease Ordered: 12/03/2013 documented as of this encounter Visit Diagnoses Diagnosis Memory deficit Memory loss Cognitive deficits Unspecified persistent mental disorders due to conditions classified elsewhere Frontotemporal brain disease documented in this encounter Care Teams Dry Primer Powder Blender Relationship Specialty Start Date End Date Nayla Miramontes MD [facility] [address] [place] [address] PCP - General 05/21/11 05/10/21 documented as of this encounter
--- OUTSIDE RECORDS SUMMARY | 2024-03-07 19:02 | XMS_ITS | Encounter Summary ---
Author Organization [facility] Address [facility] [place] [address] Care Team Providers Care Electric Truck Operator Name Role Phone Nayla Fatima MD Primary Care Provider [phone] Encounter Details Date Type Department Care Team (Latest Contact Info) Description 10/28/2013 1:26 PM EDT - 10/28/2013 11:59 PM EDT Hospital [place] [address] CLINIC, Darryl Camejo MD [facility] DR RHE[place] [address] Memory deficit; Cognitive deficits Discharge Disposition: Home Social History Tobacco Use [...] CELECOXIB (CELEBREX ORAL) Take by mouth. 7 polyethylene glycol (MIRALAX) 17 gram/dose powderIndications:Co nstipation [...] daily. Faxed pump and supply order to [employer] at [phone]. Dx Code: 250.01 100 each 12 08/08/2013 [...] sets every 3 days Manually fax to [employer] Diabetes 600 each 3 05/30/2011 5 insulin glargine (LANTUS) 100 unit/mL vial injectionIndications :type 1 diabetes mellitus Inject 18 Units subcutaneously daily. 1 vial = 10ml = 1,000 units Indications: Type 1 Diabetes Mellitus 10 mL 5 04/29/2011 7 lisinopril (PRINIVIL;ZESTRIL) 20 mg tablet Take 0.5 tablets by mouth daily. 04/29/2011 4 melatonin 3 mg Tab Take 9 mg by mouth nightly. 7 insulin lispro (HUMALOG) 100 unit/mL injection Inject subcutaneously. 5-16 units 3 times daily and as needed 4 documented as of this encounter Progress Notes * Daisha Freeman RN - 10/27/2013 3:53 PM EDT VIR MRI PRE-SEDATION ASSESSMENT NOTE NAME: Roxann Ceja AGE: 58 y.o. : 1955 Female [phone] (home) No relevant phone numbers on file. PCP SPECIALTY SALES CONSULTANT NAYLA FATIMA MD None Allergies Allergen Reactions ??? Codeine Phosphate Nausea Only ??? Propoxyphene N-Acetaminophen Nausea Only Date/Time of call: October 27, 2013/3:53 PM/ PREVIOUS MRI SCAN? yes HEIGHT: 66 WEIGHT:194# SCHEDULED SCAN:MRI Brain wo SUBJECTIVE:I have used ativan before ASSESSMENT:Patient candidate for po medication PLAN:Ativan 1-2 mg per protocol PRIOR SCAN DATE/S SEDATION TYPE SUCCESSFUL 03-07-13 MRI knee Ativan 1mg. PO x2 Yes PT WILL ARRIVE 1 HR. BEFORE SCHEDULED SCAN AND HAVE A WAREHOUSE TRAFFIC SUPERVISOR AVAILABLE. PT STATED TO RN ANESTHESIOLOGY THAT THE SEDATION WAS EFFECTIVE FOR SCAN: Y N COMMENTS: This patient has been informed that they require a milk driver to drive them home after this procedure. In the absence of a milk driver, IR will not be able to perform this procedure and will need to reschedule. Pt verbalized understanding of these instructions during the pre-procedure education via phone. documented in this encounter Miscellaneous Notes * Miscellaneous - Provider, Joel - 11/24/2013 9:41 AM EDT documented in this encounter Plan of Treatment Upcoming Encounters Date Type Department Care Team (Late st Contact Info) Description 05/17/2024 2:30 PM EST Office Visit [place] [address] Alcides Bonilla MD [facility] [place] [address] 04/06/2049 9:00 AM EST Hospital Encounter [place] [address] Harry Guerrero MD [facility] DR GASTROENTEROLOGY [place] [address] documented as of this encounter Procedures Procedure Name Priority Date/Time Associated Diagnosis Comments MRI BRAIN WO CONTRAST Routine 10/28/2013 3:01 PM EDT documented in this encounter Results * MRI brain WO contrast (10/28/2013 3:01 PM EDT) Anatomical Region Laterality Modality Head Magnetic Resonan ce 10/28/2013 3:01 PM EDT Narrative 10/28/2013 5:16 PM EDT Examination MR Brain without Contrast Clinical History memory deficit, cognitive deficit Comparison None Technique MRI of the brain was performed without contrast ?? Findings There is no acute diffusion restriction. ??There are a few scattered foci of nonspecific T2 prolongation. ??There appears to be mild focal thickening of the right corpus callosum near the genu-body junction which may be secondary to the course of the anterior cerebral artery is branches. There is mild generalized parenchymal volume loss. ??No mass effect, midline shift or extra-axial collection. The ventricles are normal in size for age. ??Small mucous retention cyst in the left maxillary sinus. ??Mild mucosal thickening in the ethmoid air cells. ??The mastoid air cells are clear. The orbits are normal in appearance. ?? Impression Mild generalized parenchymal volume loss. Procedure Note Brandy Arriaga MD - 10/28/2013 Examination MR Brain without Contrast Clinical History memory deficit, cognitive deficit Comparison None Technique MRI of the brain was performed without contrast Findings There is no acute diffusion restriction. There are a few scattered fociof nonspecific T2 prolongation. There appears to be mild focal thickening ofthe right corpus callosum near the genu-body junction which may be secondaryto the course of the anterior cerebral artery is branches. There is mildgeneralized parenchymal volume loss. No mass effect, midline shift or extra-axial collection. The ventricles are normal in size for age. Small mucousretention cyst in the left maxillary sinus. Mild mucosal thickening in the ethmoidair cells. The mastoid air cells are clear. The orbits are normal inappearance. Impression Mild generalized parenchymal volume loss. Darryl Burgos MD IMG MRI ORDERABLES documented in this encounter Visit Diagnoses Diagnosis Memory deficit Memory loss Cognitive deficits Unspecified persistent mental disorders due to conditions classified elsewhere documented in this encounter Administered Medications Inactive Administered Medications - up to 3 most recent administrations Medication Order MAR Action Action Date Dose Rate Site LORazepam (ATIVAN) tablet 1 mg 1 mg, Oral, EVERY 30 MIN PRN, 2 doses, Starting on Thu10/28/13 at 0852, Until Thu10/28/13 at 1405, Anxiety, Angio/IR (Day of Procedure), Routine Given 10/28/2013 2:05 PM EDT 1 mg Given 10/28/2013 1:38 PM EDT 1 mg documented in this encounter Care Teams Electric Truck Operator Relationship Specialty Start Date End Date Nayla Fatima MD [facility] ANABELLA LÓPEZ [facility] [address] [place] [address] PCP - General 05/21/11 05/10/21 documented as of this encounter
--- OUTSIDE RECORDS SUMMARY | 2024-03-07 19:02 | XMS_ITS | Encounter Summary ---
Author Organization [facility] [place] [address] Care Team Providers Care Medical Oncology Physician Name Role Phone Nayla Miramontes MD Primary Care Provider [phone] Reason for Referral * Surgical (Routine) - Closed Specialty Diagnoses / Procedures Referred By Franklin laird Referred To Contact General Surgery Diagnoses Hiatal hernia Esophageal reflux Tamanna Nguyen COMPUTERIZED MILL MILL RECORDER [facility] [place] [address] Sonja Chavez MD [facility] [place] [address] Referral ID Status Reason Start Date Expiration Date V isits Requested Visits Authorized [id number] Closed Consult, Test & Treat 10/25/2013 04/23/2014 1 1 Reason for Visit * Reason Comments Follow-up Encounter Details Date Type Department Care Team (Late st Contact Info) Description 10/25/2013 2:00 PM EDT Follow-Up Gastroenterology at [facility] [place] [address] Tam[address] Nguyen [place] [address] N&V (nausea and vomiting); Constipation; Hiatal hernia; Esophageal reflux Discharge Disposition: Home Social History Tobacco Use [...] Sign Reading Time Taken Comments Blood Pressure 110/65 10/25/2013 1:45 PM EDT Pulse 88 10/25/2013 1:45 PM EDT Temperature - - Respiratory Rate - - Oxygen Saturation - - Inhaled Oxygen Concentration - - Weight 87.9 kg (193 lb 12.8 oz) 10/25/2013 1:45 PM EDT Height 166.4 cm (5' 5.5) 10/25/2013 1:45 PM EDT Body Mass Index 31.76 10/25/2013 1:45 PM EDT documented in this encounter Patient Instructions * Patient Instructions* Tamanna Nguyen APRN - 10/25/2013 2:17 PM EDT 1. Amitiza 24 mcg twice a day with food 2. MiraLax 34 grams (2 cap full) before bedtime 3. Milk of magnesia 30-60 ml daily as needed; use if no bowel movement after two days. 4. Call with an update in 2-3 weeks; consider Linaclotide 145 mcg every morning on an empty minutes before breakfast and samples provided 5. Nexium 40 mg twice a day; take on an empty stomach 30 minutes before breakfast and dinner 6. Continue to follow gastroparesis diet 7. Nausea: Zofran and Tigan as needed 8. Neurontin (gabapentin) 300 mg every morning and 600 mg at bedtime 9. Referral to surgeon for consultation for possible hiatal hernia repair 10. Consider participating in gastroparesis research at [facility] and information sent to Dr. Jean 11. Follow up 2 months Tamanna Nguyen APRN [phone] documented in this encounter Progress Notes * Tamanna Nguyen APRN - 10/25/2013 1:32 PM EDT Subjective: Patient ID: Roxann Ceja is a 58 y.o. woman who presents for follow up of her gastrointestinal symptoms. HPI Comments: Initial visit 07/25/2013: Mrs Ceja is a pleasant 57 year old woman with a history significant for DM I with complications of retinopathy and neuropathy and hypothyroidism who presents for consultation of gastroparesis symptoms. She reports experiencing early satiety and post prandial fullness. States it feels like food lays there. Admits to epigastric discomfort intermittently post prandially. Feels nauseous a couple of times per week. She reports vomiting undigested food she ate earlier that day. States that symptoms tend to worse in the evening. She wakes up frequently secondary to undigested food in her mouth. She reports eating smaller more frequent meals per day. Has decreased fiber intake secondary to difficulty digesting fiber since it makes her feel very full. Symptoms have been present for several months. She reports that GERD symptoms are not well controlled despite taking Nexium 20 mg qd. Experiences regurgitation and heartburn most days. Uses Tums daily with some relief. Admits to nocturnal symptoms. Upper endoscopy performed on 04/27/2012 revealed The Z-line was variable and was found 33 cm from the incisors, there was a possible island of Igron's esophagus; a 5 cm hiatus hernia was present; multiple pedunculated and sessile polyps with no stigmata of recent bleeding were found in the gastricbody; duodenum was normal; food (residue) was found in the gastric body. Bx: gastric fundic gland polyp. Esophagus: positive for Giron's esophagus but no dysplasia. She reports experiencing gas, bloating and distention every day. Unable to identify any specific triggers. She reports experiencing the sensation of both solids and liquids getting hung in chest. drinks water to relieve the sensation. Denies chocking or coughing immediately after swallowing. No nasal regurgitation. She reports experiencing constipation. States that longest a time without a bowel movement is a week. Currently taking Ex-lax every other day with some improvement but then experiences diarrhea. She reports that stools are pellet like but periodically has pellet like stool mixed with loose brown stool. Admits to straining and incomplete evacuation of stool. No blood in stool, rectal bleeding, rectal or anal pain. Weight gain of 10 lbs over the last 6 months. She reports that blood sugars fluctuates. No food allergies or intolerances. Remainder of ROS unremarkable. Interval Hx 10/25/2013: she reports that constipation had improved with taking Amitiza 24 mcg BID. Was a formed bowel movement every day until last week. Stools changed and hard formed. No blood in stool, rectal bleeding, rectal or anal pain. Has not had a bowel movement since Thursday. Tried suppository but experienced lower abdominal pain. She reports that early satiety and post prandial fullness. Continues to experience the sensation offood sitting in her stomach. Epigastric discomfort post prandial persist. Following the gastroparesis diet and eating smaller more frequent low fat meals per day. Continues to experience intermittent regurgitation and heartburn during the day despite taking Nexium 40 mg qd. Admits to waking up secondary to regurgitation most nights. Takes Tums prn. Rare nausea and vomiting. Reports vomiting 2-3 times per week. Has used Zofran 3-4 times in the past month with relief of symptoms. Weight stable. Remainder of ROS unremarkable. Review of Systems Constitutional: Positive for appetite change. Negative for fever, chills, diaphoresis, activity change, fatigue and unexpected weight change. HENT: Negative. Respiratory: Negative. Cardiovascular: Negative. Gastrointestinal: See HPI Musculoskeletal: Positive for back pain (H/o chronic low back pain. ). Negative for myalgias, jointswelling, arthralgias and gait problem. Skin: Negative. Neurological: Negative. Psychiatric/Behavioral: Negative. Allergies Allergen Reactions ??? Codeine Phosphate ??? Propoxyphene N-Acetaminophen Current Outpatient Prescriptions on File Prior to Visit Medication Sig Dispense Refill ??? esomeprazole (NEXIUM) 40 mg capsule Take 40 mg by mouth 2 times daily. ??? lubiprostone (AMITIZA) 24 mcg capsule Take 1 capsule by mouth 2 times daily (with meals). 60 capsule 6 ??? bisacodyl (DULCOLAX) [address] 1 suppository rectally daily. 60 suppository 3 ??? Diabetic Supplies, Miscellan. Misc Inject 1 each subcutaneously 4 times daily. Faxed pump and supply order to [employer] at [phone]. Dx Code: 250.01 100 each 12 ??? ondansetron (ZOFRAN-ODT) 4 mg oral disintegrating tablet Take 1 tablet by mouth every 8 hours as needed for Nausea. 20 tablet 6 ??? trimethobenzamide (TIGAN) 300 mg capsule Take 1 capsule by mouth 3 times daily as needed. 90 capsule 6 ??? cyclobenzaprine (FLEXERIL) 5 mg tablet Take 5 mg in the morning and 10 mg at bedtime. 270 tablet 4 ??? gabapentin (NEURONTIN) 300 mg capsule Take 2 capsules by mouth nightly. 180 capsule 3 ??? adalimumab (HUMIRA) 40 mg/0.8 mL injection [...] sets every 3 days Manually fax to [employer] Diabetes 600 each 3 ??? insulin glargine (LANTUS) 100 unit/mL vial injection Inject 18 Units subcutaneously daily. 1 vial = 10ml = 1,000 units Indications: Type 1 Diabetes Mellitus 10 mL 5 ??? lisinopril (PRINIVIL;ZESTRIL) 20 mg tablet Take 0.5 tablets by mouth daily. ??? melatonin 3 mg Tab Take 9 mg by mouth nightly. ??? ESCITALOPRAM OXALATE (LEXAPRO ORAL) Take 40 mg by mouth daily. ??? insulin lispro (HUMALOG) 100 unit/mL injection Inject subcutaneously. 5-16 units 3 times daily and as needed ??? MULTI-VITAMIN ORAL Take 1 tablet by mouth daily. Current Facility-Administered Medications on File Prior to Visit Medication Dose Route Frequency Provider Last Rate Last Dose ??? lactated ringers infusion Continuous PRN Roxann Rolon CRNA Recent tests: Colonoscopy 09/13/2013: preparation of the colon was [...] esophagus but no dysplasia. Vital Signs: BP 110/65; P 88; Wt 194 lbs; Ht 5'5.5 Objective: Physical Exam Vitals reviewed. Constitutional: She is oriented to person, place, and time. She appears well- developed and well-nourished. No distress. Neurological: She is alert and oriented to person, place, and time. Skin: She is not diaphoretic. Psychiatric: She has a normal mood and affect. Her behavior is normal. Judgment and thought contentnormal. Assessment and Plan: #Gastroparesis: continue with gastroparesis diet and eat small more frequent 6-8 low fat meals per day. Tigan 300 mg QID prn and Zofran ODT4 mg TID prn. Discussed considering participating in gastroparesis study at [facility] and she expressed an interest in participating. Will forward an email to Dr. Guerrero and Dr Jean. If she opts to not proceed with study then consider Erythromycin or Domperidone. #GERD/Giron's esophagus: remains symptomatic on Nexium 40 mg qd. Recommend increasing Nexium 40 mg BID. Question role of lg hiatal hernia and gastroparesis. Discussed proceeding with referral to surgery for consultation for possible repair hiatal hernia. She is amenable to this. Consider Briones ph study on Nexium to ensure that symptoms are well controlled. #Dysphagia: symptoms persist. SBFT revealed a severe esophageal dilatation with non emptying of theesophagus, esophageal dysmotility with large hiatal hernia. OEM: unable to identify LES relaxation/resting pressure, normal UES resting pressure/relaxation and motor failure in the body of the esophagus. Question role of large hiatal hernia with regards to esophageal motility vs achalasia. Will have Dr. Chavez review and await his recommendations. #Constipation: Amitiza 24 mcg BID in conjunction with MiraLax 34 grams qhs. Use MOM prn if no BM after two days. #Gas/bloating: question gastroparesis and SIBO. The majority of the visit was spent on her most bothersome symptoms. Consider HBT to r/o SIBO. Will re- evaluate at follow up visit. I did my best to answer all of her questions. The following plan was formulated. Plan: 1. Amitiza 24 mcg BID with food and call with an update in 2-3 weeks; consider Linaclotide 145-290 mcg qam 2. MiraLax 34 grams qhs 3. MOM 30-60 ml qd prn 4. Nexium 40 mg BID; take on an empty stomach 30 minutes before breakfast and dinner 5. Continue to follow gastroparesis diet 6. Zofran ODT 4 mg TID prn 7. Tigan 300 mg QID prn 8. Neurontin (gabapentin) 300 mg qam and 600 mg qhs 9. Referral to surgeon for consultation for possible repair of achalasia/lg hiatal hernia 10. Consider participating in gastroparesis research at [facility] 11. Follow up 2 months Patient understands and is agreeable to the above plan. Written instructions provided. Thank you for the referral, Tamanna Nguyen APRN Section of Gastroenterology [place] [address] documented in this encounter Plan of Treatment Upcoming Encounters Date Type Department Care Team (Late st Contact Info) Description 05/17/2024 2:30 PM EST Office [place] [address] Alcides Bonilla MD [facility] [place] [address] 04/06/2049 9:00 AM EST Hospital En[place] [address] Harry Guerrero MD [facility] [place] [address] Scheduled Referrals Name Type Priority Associated Diagnoses Orde r Schedule Referral to General Surgery Outpatient Referral Routine Hiatal hernia Esophageal reflux Ordered: 10/25/2013 documented as of this encounter Visit Diagnoses Diagnosis N&V (nausea and vomiting) Nausea with vomiting Constipation Unspecified constipation Hiatal hernia Diaphragmatic hernia without mention of obstruction or gangrene Esophageal reflux documented in this encounter Care Teams Medical Oncology Physician Relationship Specialty Start Date End Date Nayla Miramontes MD [facility] ANABELLA LÓPEZ [facility] [address] [place] [address] PCP - General 05/21/11 05/10/21 documented as of this encounter
--- OUTSIDE RECORDS SUMMARY | 2024-03-07 19:02 | XMS_ITS | Encounter Summary ---
Author Organization [facility] [place] [address] Care Team Providers Care Chilling Hood Operator Name Role Phone Nayla Miramontes MD Primary Care Provider [phone] Reason for Visit * Reason Comments Diabetes Encounter Details Date Type Department Care Team ([facility] st Contact Info) Description 08/25/2013 9:00 AM EDT Office Visit [place] [address] Roseanne Kay [facility] [place] [address] Type I (juvenile type) diabetes mellitus without mention of complication, uncontrolled; Hypothyroidism Discharge Disposition: Home Social History Tobacco [...] Sign Reading Time Taken Comments Blood Pressure 113/58 08/25/2013 10:02 AM EDT Pulse 86 08/25/2013 10:02 AM EDT Temperature - - Respiratory Rate - - Oxygen Saturation - - Inhaled Oxygen Concentration - - Weight 89.7 kg (197 lb 12.8 oz) 014 10:02 AM EDT Height 167.6 cm (5' 5.98) 08/25/2013 1 0:02 AM EDT Body Mass Index 31.94 08/25/2013 10:02 AM EDT documented in this encounter Patient Instructions * Patient Instructions* Roseanne Kay APRN - 08/25/2013 10:49 AM EDT Call PCP for letter Next appointment with Clinical Resource Coordinator and continue to schedule visits with Dionna Polanco until HGBA1C is closer to 7.5% (without frequent low glucose levels) documented in this encounter Progress Notes * Roseanne Kay APRN - 08/25/2013 12:10 PM EDT DATE OF VISIT: 08/25/2013 REASON FOR VISIT: 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 Also, followup hypothyroidism. BRIEF HISTORY: Presents and states constipation pains are terrible. Has been seen in the ER recently for help with managing the constipation. Is followed by gastroenterology at [facility] to help her manage that and to do further testing for gastroparesis. PAST MEDICAL HISTORY: Past medical history is significant for severe DKA in 2011 and was hospitalized and was unresponsive. PREVENTION STRATEGIES: She does take an RYAN inhibitor, is followed closely by sheriff officer. DIABETES REGIMEN: MiniMed insulin pump, basal rates 12 a.m., 0.7; 4 a.m., 0.775; 7:30, 0.95; 3:30 p.m., 0.7; 7 p.m., 0.775. Total basal 19.45. Total daily doses range from 30.65 to 65.85. REVIEW OF SYSTEMS: Depression and Mood: States she is waiting for letter from PCP to finish application for disability. Eyes: Has poor vision from left. No recent headaches or chest pain or shortness of breath. GI Symptoms: Followed by gastroenterology for constipation. Has further testing scheduled. Sleep pattern varies depending on amount of abdominal pain and bloating. Last BM was 08/22/2013. Extremities: Has some joint pains. PHYSICAL EXAMINATION: Appearance: She appears in good health. Weight 197 pounds. Pleasant and talkative with good eye contact. Blood pressure 113/58. Eyes: Scars noted with green light exam. Neck: No thyromegaly or lymphadenopathy. Heart: Regular rate and rhythm. No murmurs. Lungs are clear to auscultation. Feet: Skin is normal, pulses are normal. Neuro: Normal sensation to 10 g of pressure. LABORATORY TESTS: Hemoglobin A1c 9.1%. Previous was 8.7%. SBGM: Four times a day. DX CODE: 250.53. IMPRESSION AND PLAN: Diabetes mellitus type 1 with complications. Attempted to have less occurrences of hypoglycemia at previous office visit which has occurred. Family has not had to call rescue like they had to do in March and April. Has appointment later this a.m. with NIRAV BAUGH and will download pump data for adjustments to avoid hypoglycemia. Also, the patient used the sensor in the past, but did not find it accurate. Perhaps would benefit from Enlite sensor with automatic suspend to avoid severe hypoglycemia. Has appointment scheduled in December for followup with Dr. Booker. Will check hemoglobin A1c and TSH, hypothyroidism. TSH result is borderline low. This was a 34-minute office visit with 33 minutes spent counseling [id number] with patient in the management of glucose levels, reviewing prevention and treatment of hypoglycemia in the setting of hypoglycemia unawareness, advised the patient to pursue using Enlite sensor to see if it is more accurate for her than the previous sensor and encouraged her to contact PCP for letter for disability application. The patient states she definitely suffers from short term memory loss most likely r/t hx DKA and unresposiveness. Recent Results (from the past 72 hour(s)) HEMOGLOBIN A1C Component Value Range Hemoglobin A1C 9.1 (*) <=5.6 % Est Avg Gluc 214 TSH Component Value Range TSH 0.19 (*) 0.27 - 4.20 mcIU/mL TISSUE TRANSGLUTAMINASE, IGA Component Value Range TTG IgA Ab <4.0 <=3.9 u/ml IGA Component Value Range IgA 229 70 - 400 mg/dL MAIRA Component Value Range MAIRA Neg Neg SEDIMENTATION RATE Component Value Range Sed Rate 11 0 - 20 mm/hr documented in this encounter Plan of Treatment Upcoming Encounters Date Type Department Care Team (Late st Contact Info) Description 05/17/2024 2:30 PM EST Office Visit [place] [address] Alcides Bonilla MD [facility] [place] [address] 04/06/2049 9:00 AM EST Hospital Encounter [place] [address] Harry Guerrero MD [facility] [place] [address] documented as of this encounter Procedures Procedure Name Priority Date/Time Associated Diagnosis Comments TSH Routine 08/25/2013 9:20 AM EDT Hypothyroidism HEMOGLOBIN A1C Routine 08/25/2013 9:20 AM EDT Type I (juvenile type) diabetes mellitus without mention of complication, uncontrolled documented in this encounter Results * (ABNORMAL) TSH (08/25/2013 9:20 AM EDT) Thyroid Stimulating Hormone 0.19(L) 0.27 - 4.20 mcIU/mL JOHN DE [facility]ON Blood specimen (specimen) 08/25/2013 9:20 AM EDT 08/25/2013 9:34 AM EDT Narrative Resulting Agency Comment Spec In Lab Darryl Barrera MD CHEMISTRY ORDERABLES [facility] * (ABNORMAL) Hemoglobin A1c (08/25/2013 9:20 AM EDT) Hemoglobin A1c 9.1(H) <=5.6 % ISABEL DE LEON Comment: As of 2013 the methodology for Hemoglobin A1c testing has changed. This change is accompanied by a new interpretive statement and flags. Please review the new interpretive statement and contact Dr. Watson or Dr. Gloria with questions. Reference Range: 4.3 ? 5.6% 5.7 ? [...] 36: Suppl. 1, S67-74 Estimated Average Glucose 214 mg/dL [facility] Comment: eAG equivalents for HbA1c percentages: HbA1c(%) ?eAG(mg/dL) 6.0 ?126 6.5 ?140 7.0 ?154 7.5 ?169 8.0 ?183 8.5 ?197 9.0 ?212 9.5 ?226 10.0 ? 240 Limitations: The eAG calculation has not been validated on women, individuals below 18 years old and above 70 years old, and individuals with hemoglobinopathies. Additional resources are available on the ADA website: ??http://professional.diabetes.org/glucosecalculator.aspx Rich MCDANIEL, Brenda Ramirez, Wallace R, et al. ??Translating the A1C assay into estimated average glucose values. ??Diabetes Care 2008:31(8):9648-8351. Blood specimen (specimen) 08/25/2013 9:20 AM EDT 08/25/2013 9:34 AM EDT Narrative Resulting Agency Comment Spec In Lab Darryl Barrera MD CHEMISTRY ORDERABLES [facility] documented in this encounter Visit Diagnoses Diagnosis Type I (juvenile type) diabetes mellitus without mention of complication, uncontrolled Hypothyroidism Unspecified hypothyroidism documented in this encounter Care Teams Chilling Hood Operator Relationship Specialty Start Date End Date Nayla Miramontes MD [facility] A[address] [place] [address] PCP - General 05/21/11 05/10/21 documented as of this encounter
--- OUTSIDE RECORDS SUMMARY | 2024-03-07 19:02 | XMS_ITS | Encounter Summary ---
Author Organization [facility] [place] [address] Care Team Providers Care Movie Editor Name Role Phone Nayla Miramontes MD Primary Care Provider [phone] Encounter Details Date Type Department Care Team (Late st Contact Info) Description 12/30/2013 Notes [place] [address] Lluvia Dey CMA GASTROENTEROLOGY DEPT Social History [...] Progress Notes * Lluvia Dey CMA - 12/30/2013 4:27 PM EDT Prior Auth Medication name/dose/directions: Amitiza 24 mcg 1 cap 2 times daily Rationale for request: Medication Prior Authorization: amitiza Health plan: [place] medicare Authorizing environmental marketing representative name: Lluvia Dey Faxed to health plan on: 12/30/2013 Health plan decision: Approved for one year documented in this encounter Plan of Treatment Upcoming Encounters Date Type Department Care Team (Late st Contact Info) Description 05/17/2024 2:30 PM EST Office [place] [address] Alcides Bonilla MD [facility] [place] [address] 04/06/2049 9:00 AM EST Hospital [place] [address] Harry Guerrero MD [facility] [place] [address] documented as of this encounter Visit Diagnoses Not on filedocumented in this encounter Care Teams Movie Editor Relationship Specialty Start Date End Date Nayla Miramontes MD [facility] ANABELLA LÓPEZ [facility] [address] [place] [address] PCP - General 05/21/11 05/10/21 documented as of this encounter
--- OUTSIDE RECORDS SUMMARY | 2024-03-07 19:03 | XMS_ITS | Encounter Summary ---
Author Organization [facility] [place] [address] Care Team Providers Care Law Examiner Name Role Phone Nayla Miramontes MD Primary Care Provider [phone] Reason for Visit * Reason Comments PDR OU 3 month check Post Op PPV OS 05/16/2013 Encounter Details Date Type Department Care Team (Late st Contact Info) Description 07/25/2013 12:30 PM EDT [place] [address] Sosa Hewitt MD PDR (proliferative diabetic retinopathy), type 2, without macular edema (Primary Dx) Discharge Disposition: Home Social History [...] Progress Notes * Sosa Hewitt MD - 07/25/2013 1:36 PM EDT 1. Moderate cataracts OU. 2. Involutional PDR post PRP OU. Plan: TAMEKA test now, then rtc 6 months. TAMEKA OD 20/50 and OS 20/50 documented in this encounter Plan of Treatment Upcoming Encounters Date Type Department Care Team (Late st Contact Info) Description 05/17/2024 2:30 PM EST Office [place] [phone] Alcides Bonilla MD [facility] [place] [address] 04/06/2049 9:00 AM EST Hospital Encounter [place] [phone] Harry Guerrero MD [facility] [place] [address] documented as of this encounter Visit Diagnoses Diagnosis PDR (proliferative diabetic retinopathy), type 2, without macular edema- Primary documented in this encounter Care Teams Law Examiner Relationship Specialty Start Date End Date Nayla Miramontes MD [facility] ANABELLA LÓPEZ [facility] [address] [place] [address] PCP - General 05/21/11 05/10/21 documented as of this encounter
--- OUTSIDE RECORDS SUMMARY | 2024-03-07 19:03 | XMS_ITS | Encounter Summary ---
Author Organization [facility] [place] [address] Care Team Providers Care Chief Operator Name Role Phone Nayla Miramontes MD Primary Care Provider [phone] Encounter Details Date Type Department Care Team (Late st Contact Info) Description 08/03/2013 Telephone Gastroenterology at [facility] [place] [address] Tamanna Nguyen APRN [facility] [place] [address] Social History Tobacco Use Types Packs/Day Years [...] Telephone Encounter - Tamanna Nguyen APRN - 08/03/2013 4:42 PM EDT Contacted Mrs. Ceja regarding the results of her SBFT that revealed severe esophageal dilatation with non emptying of the esophagus, esophageal dysmotility with large hiatal hernia. Recommend awaiting results of her esophageal manometry for further management. Discussed considering referral to surgery pending oem results. Reasonable to cancel GES at this time given that the findings may likely account for her symptoms. She is amenable to this. She reports that constipation persist. Has not been able to get Amitiza from pharmacy for unknown reasons. Will email Sita Keane re: PA. In the interim, recommended that she increase Miralax to 2 cap full qhs and try Smooth move tea qhs or MOM 30 mg prn. She is amenable to this. documented in this encounter Plan of Treatment Upcoming Encounters Date Type Department Care Team (Late st Contact Info) Description 05/17/2024 2:30 PM EST Office Visit [place] [address] Alcides Bonilla MD [facility] [place] [address] 04/06/2049 9:00 AM EST Hospital Encounter [place] [address] Harry Guerrero MD [facility] [place] [address] documented as of this encounter Visit Diagnoses Not on filedocumented in this encounter Care Teams Chief Operator Relationship Specialty Start Date End Date Nayla Miramontes MD [facility] [address] [place] [address] PCP - General 05/21/11 05/10/21 documented as of this encounter
--- OUTSIDE RECORDS SUMMARY | 2024-03-07 19:03 | XMS_ITS | Encounter Summary ---
Author Organization [facility] [place] [address] Care Team Providers Care Medical Parasitologist Name Role Phone Nayla Miramontes MD Primary Care Provider Encounter Details Date Type Department Care Team (Late st Contact Info) Description 03/24/2013 10:00 AM EST Follow-Up Occupational Therapy at [address] [address] Trent Pierre, OT [facility] PHYSICAL MEDICINE & [place] [address] Jann Lopez MD [facility] [place] [address] Diabetes mellitus (Primary Dx) Discharge Disposition: Home [...] as of this encounter Progress Notes * Trent Pierre, OT - 03/24/2013 10:31 AM EST Images from the original note were not included. RESIDUAL FUNCTIONAL CAPACITY ASSESSMENT MUSCULOSKELETAL SYSTEM ADULT REFERRING PHYSICIAN: Jann Lopez MD DIAGNOSIS: 1. Diabetes mellitus TOTAL TIME OF TREATMENT: 75 minutes TIMED CODE TREATMENT TIME: 75 minutes physical performance tests and measures PURPOSE OF EVALUATION: This assessment provides objective data to the referring physician in the submission of medical documentation to [facility]. The entirety of this assessment should be copied into the referring physician's documentation and incorporated into the physician's assessment and impression.The information collected today is specific to [facility] functional residual capacity section1.00 Musculoskeletal System-Adult. HISTORY: Roxann Ceja was referred by Jann Lopez MD for a Residual Functional Capacity assessment in Rehab Medicine to provide objective data for application for [facility] disability. SUMMARY OF OBJECTIVE FINDINGS: Sitting tolerance: 30 minutes Comments: Difficulty standing up Dynamic standing tolerance: 25 minutes Comments: leaned against wall at times for support Maximum carbon grinder force: right 19 lbs left 16 lbs Comments: Fine motor coordination: unable to finish Prasad Small Parts Test. Comments: Having difficulty lining up the screw electric truck driver with pieces. Missing threaded holes at timeswhen doing starting screws Ambulation: She walked 283 ft in the 6 minute walk test needing to stop after 3 minutes of walking.This is 14% of expected for her age Comments: wide base of support and 2 loss of balance which she regained on her own Stairs: 24 steps Comments: used both rails Occasional lifting tolerance floor to knuckle: unable to lift from floor Comments: Occasional lifting tolerance 12 inches floor to knuckle: unable to lift at and occasional level Comments: Occasional lifting tolerance knuckle to shoulder: 8lbs Comments: loss of balance Occasional lifting tolerance overhead: unable to lift occasionally Comments: loss of balance Occasional carrying tolerance 30 ft: 3 lbs Comments: lost balance at 20 ft with 8 lb box Cognition: She scored 14/30 on the Andrei Cognitive Assessment (MOCA) with below 26 considered abnormal scroing. Significant memory deficits and slowed processing noted during the MOCA. She needed repetition of direction multiple times during material handling and fine coordination testing. Processing verbal directions was slow. When questioning orientation she was asked what town she was in and reported central standard time zone. She repeated information related to her disability case multiple times. She arrived 45 minutes late for her appointment not remembering where her visit was and arriving at occupational medicine. EFFORT: Overall test findings, in combination with clinical observations, suggest the presence of near full levels of physical effort on Roxann's behalf. The results of this evaluation give a reasonable estimate of her current abilities for the areas tested today. SUPPORTING DOCUMENTATION JAYJAY DYNAMOMETRY: Used to determine carbon grinder strength measured in lbs. RAPID ALTERNATING JAYJAY BOTTOM BUFFER TESTING (at setting #2 measured in lbs): Right 10 12 8 8 9 8 Left 13 11 12 11 9 8 PRASAD SMALL PARTS TEST (completed to assess fine motor coordination): Total Time Screws: 14 min Percentile Rating: Stopped the task due to difficultly with screwing in pieces unable to see what she was doing and feeling with her finger such that she finished 13 pieces. MUSCULOSKELETAL EVALUATION: A Brief Musculoskeletal evaluation was completed to ensure safety for material handling and mobility assessment. The patient presented with functional upper body and lower body range of motion exceptfor the following. Unabe to full extend her digits with flexion contracture of D5. Unable to flex digits to within 1 CM DPC. Shoulder flexion and abduction to 100 degrees. Unable to complete more than 20% of a squat with support. SIX MINUTE WALK TEST (used to assess mobility and endurance): Roxann Ceja walked 283 feet in 6 minutes with a predicted walking distance to be 2000 considering age and medical health. This is 14% of distance expected for age. STAIRS: Roxann Ceja climbed 24 steps using 2 rails. 2 loss of balance MATERIAL HANDLING: Weight/Force Isoinertial Lifting Protocol (safe lifting levels in pounds): Lifting Floor to knuckle Unable Lifting Knuckle to shoulder 18 lbs max 8 lbs occasiona Lifting Above head unable Carrying 30 ft Max 13 lbs losing balance PAIN RATINGS (rated on a 0 to 10 numeric scale): Task Pain Scale Comments At rest 5 Lower back and knees Jayjay carbon grinder testing 6 Prasad small parts test 5 Musculoskeletal evaluation 6 6 minute walk 6 Stairs 6 Material handling 6 MAXIMUM VOLUNTARY EFFORT TESTING: Effort testing is used to ensure the objective data acquired today represents a client's physical maximums. Multiple variables are used to provide objective report of full effort and are listed as follows: Competitive test performance: Presence of competitive test performance is indicated by observationssuch as accessory muscle firing during material handling, starting before the start command is given during a fine motor coordination task, or asking more details on directions of how to do a task Heart rate analysis Coefficient of variation with Ajyjay dynamometer: Three carbon grinder measurements are taken with each hand at each of the five carbon grinder positions, and a coefficient of variation is determined for each set of three. If more than three coefficients of variation out of the ten are over set cut points, then less than maximum effort is indicated. Score distribution of the measurements at each of the five carbon grinder positions of the Jayjay dynamometer for each hand is considered in determining effort. If maximum effort is used, a mills curve shape pattern of score distribution should be evident. Rapid carbon grinder testing with Jayjay dynamometer is compared to the five-stage carbon grinder testing. If any of therapid carbon grinder levels are more than 12 lbs above the highest carbon grinder of the five-stage carbon grinder testing then submaximal effort is indicated. RESULTS OF MAXIMUM VOLUNTARTY EFFORT TESTING: Competitive test performance: Assessment Observation Comments Jayjay dynamometry Stopping when pain level went to high Prasad small parts test Asking for time time to practice and voicing frustration with dropping pieces 6-Minute walk Dyspnea, Stairs dyspnea Material handling Biomechanical changes Heart rate (in beats per minute): Activity At rest or pre-activity Maximum Post-test 6-Minute walk 76 114 Stairs 114 Isoinertial protocol 102 102 BP at start 120/75 At end 130/70 Jayjay Dynamometry (Presence of the following characteristics are supportive to provision of full effort): Were there less than 3 coefficients of variation over the cut point? no Was a mills shaped curve evident between carbon grinder sizes? yes Was rapid carbon grinder testing within 20% of serial testing maximums? yes documented in this encounter Plan of Treatment Upcoming Encounters Date Type Department Care Team (Late st Contact Info) Description 05/17/2024 2:30 PM EST Office Visit [place] [phone] Alcides Bonilla MD [facility] [address] 04/06/2049 9:00 AM EST Hospital Encounter [place] [phone] Harry Guerrero MD [facility] [place] [address] documented as of this encounter Visit Diagnoses Diagnosis Diabetes mellitus- Primary Type II or unspecified type diabetes mellitus without mention of complication, not stated as uncontrolled documented in this encounter Care Teams Medical Parasitologist Relationship Specialty Start Date End Date Nayla Miramontes MD [facility] ANABELLA [address] [place] [address] PCP - General 05/21/11 05/10/21 documented as of this encounter
--- OUTSIDE RECORDS SUMMARY | 2024-03-07 19:03 | XMS_ITS | Encounter Summary ---
[place] [address] Care Team Providers Care Records Specialist Name Role Phone Nayla Miramontes MD Primary Care Provider [phone] Reason for Visit * Reason Onset Date Comments Blood Sugar Problem 06/20/2013 Encounter Details Date Type Department Care Team (Late st Contact Info) Description 06/20/2013 Telephone [place] [phone] Rae Long LPN Blood Sugar Problem Social History Tobacco Use Types Packs/Day Years [...] encounter Miscellaneous Notes * Telephone Encounter - Roseanne Kay APRN - 06/20/2013 5:33 PM EDT [facility] called pt and reviewed glucose results. Advised to lower 4AM basal rate to .7 units. If FBG still under 100 in few mornings, then lower again to .65 units Pt discusses slow digestion symptoms. Will refer pt to gastroenterology to review available treatments for gastroparesis. Also, she sts she plans to [facility] to [facility] ordering the 530G pump with elite sensor * Telephone Encounter - Rae Long LPN - 06/20/2013 3:58 PM EDT Roxann calls stating her BG has been erratic. States this weekend it was very high, into the 500's. Today it is very low. She is on a pump and bolusing what the pump said, though at lunch time did not for fear of extreme lows. Her BG today have ranged from 39-277. Message to Roseanne Kay, patient can be reached at [phone] documented in this encounter Plan of Treatment Upcoming Encounters Date Type Department Care Team (Late st Contact Info) Description 05/17/2024 2:30 PM EST Office [place] [address] Alcides Bonilla MD [facility] [place] [address] 04/06/2049 9:00 AM EST Hospital Encounter [place] [phone] Harry Guerrero MD [facility] [place] [address] documented as of this encounter Visit Diagnoses Not on filedocumented in this encounter Care Teams Records Specialist Relationship Specialty Start Date End Date Nayla Miramontes MD [address] [place] [address] PCP - General 05/21/11 05/10/21 documented as of this encounter
--- OUTSIDE RECORDS SUMMARY | 2024-03-07 19:03 | XMS_ITS | Encounter Summary ---
Author Organization [facility] [place] [address] Care Team Providers Care Marker Delivery Name Role Phone Nayla Miramontes MD Primary Care Provider [phone] Encounter Details Date Type Department Care Team (Late st Contact Info) Description 01/12/2013 Orders Only [place] [phone] Roseanne Kay APRN [facility] [address] [place] [address] Type I (juvenile type) diabetes mellitus without mention of complication, uncontrolled (Primary Dx) Social History Tobacco Use [...] 2:30 PM EST Office Visit [place] [phone] Alcides Bonilla MD [facility] [place] [address] 04/06/2049 9:00 AM EST Hospital Encounter Gastroenterology at [facility] [place] [address] Harry Guerrero MD [facility] [address] [place] [address] documented as of this encounter Results * Microalbumin, urine, random (01/12/2013 3:27 PM EDT) Creatinine, Urine 75 mg/dL [facility] Albumin, Urine <3.0 mg/L [facility] Comment:result rechecked-NM Albumin / Creatinin Ratio, Urine <4 mcg/mg Cr [facility] Comment: Reference Range* Random collection (mcg/mg creatinine) Normal ?<30 Microalbuminuria ?? 30 - 300 Clinical Albuminuria ?? >300 *[place] [employer]. Diabetic Nephropathy. Diabetes Care 1997;(Suppl 1):S24-S27 Exercise within 24 hour, infection, fever, CHF, marked hyperglycemia, and marked hypertension may elevate urinary albumin excretion over baseline values. Urine specimen (specimen) 01/12/2013 3:27 PM EDT 01/12/2013 3:42 PM EDT Narrative Resulting Agency Comment Spec In Lab Darryl Barrera MD URINE ORDERABLES [facility] * LDL Cholesterol, Direct (01/12/2013 3:03 PM EDT) LDL Cholesterol, Direct 86 <=99 mg/dL [facility] Comment: The National Cholesterol Education Program (NCEP) has set the following guidelines for LDL Cholesterol: Reference range: ?? Optimal: ?<100 mg/dL ?? Near Optimal/Above Optimal: ?? 100-129 mg/dL ?? Borderline high: ?130-159 mg/dL ?? High: ? 160-189 mg/dL ?? Very high: ?>ja=709 mg/dL MARIANA 2001: 285(19):6104-7429 Blood specimen (specimen) 01/12/2013 3:03 PM EDT 01/12/2013 3:11 PM EDT Narrative Resulting Agency Comment Spec In Lab Darryl Barrera MD CHEMISTRY ORDERABLES Performing Organization Address [facility] de Phone Number [facility] * HDL/Cholesterol Profile (01/12/2013 3:03 PM EDT) Cholesterol, Total 167 <=199 mg/dL [facility] Comment: Recommendations of the NCEP Adult Treatment Panel for the following risk cutoff thresholds for the [place] population: Desirable: <200 mg/dL Borderline High: 200-239 mg/dL High: > or = 240 mg/dL HDL Cholesterol 70 >=40 mg/dL [facility] Comment: Reference range: ??Low HDL: ?? < 40 mg/dL ??Normal: ?40-60 mg/dL ??Desirable: > 60 mg/dL MARIANA 2001; 285(19):9611-7892 Cholesterol/HDL Ratio 2.4 ratio [facility] Comment: A Cholesterol to HDL ratio below 4:1 is desirable. ??Studies suggest that increased CAD risk occurs at ratios above 5 for females and above 6 for men. ? [place] [employer] Association ??(http://www.americanheart.org) ? Uma Int Med, 1994; 121:641 ? AM J Med, 1998; 105(1A):48S Blood specimen (specimen) 01/12/2013 3:03 PM EDT 01/12/2013 3:11 PM EDT Narrative Resulting Agency Comment Spec In Lab Darryl Barrera MD CHEMISTRY ORDERABLES Performing Organization Address [facility] de Phone Number [facility] * TSH (01/12/2013 3:03 PM EDT) Thyroid Stimulating Hormone 1.08 0.27 - 4.20 mcIU/mL [facility] Blood specimen (specimen) 01/12/2013 3:03 PM EDT 01/12/2013 3:11 PM EDT Narrative Resulting Agency Comment Spec In Lab Darryl Barrera MD CHEMISTRY ORDERABLES [facility] * (ABNORMAL) Hemoglobin A1c (01/12/2013 3:03 PM EDT) Pathologist [facility] Hemoglobin A1c 8.5(H) 4.3 - 6.1 % [facility] Comment: The [place] Diabetes Association (ADA) has stated that HbA1c values >or= 6.5% are consistent with the diagnosis of diabetes mellitus. In the absence of hyperglycemia (i.e. plasma glucose > 200 mg/dL) or classic symptoms of hyperglycemia a repeat measurement of HbA1c should be performed on a separate sample to confirm the diagnosis. The ADA also considers an HbA1c value between 5.7% and 6.4% to be consistent with an increased risk of diabetes (prediabetes). Patients with an HbA1c value in this range should be counseled about their increased risk of progressing to diabetes. Reference: Position Statement: Standards of Medical Care in Diabetes 2013. Diabetes Care 2013:36;suppl 1:S11-S66. Estimated Average Glucose 197 mg/dL [facility] Comment: eAG equivalents for HbA1c percentages: HbA1c(%) ?eAG(mg/dL) 6.0 ?126 6.5 ?140 7.0 ?154 7.5 ?169 8.0 ?183 8.5 ?197 9.0 ?212 9.5 ?226 10.0 ? 240 Limitations: The eAG calculation has not been validated on women, individuals below 18 years old and above 70 years old, and individuals with hemoglobinopathies. Additional resources are available on the ADA website: ??http://professional.diabetes.org/glucosecalculator.aspx Rich MCDANIEL, Brenda J, Wallace R, et al. ??Translating the A1C assay into estimated average glucose values. ??Diabetes Care 2008:31(8):4761-2796. Blood specimen (specimen) 01/12/2013 3:03 PM EDT 01/12/2013 3:11 PM EDT Narrative Resulting Agency Comment Spec In Lab Darryl Barrera MD CHEMISTRY ORDERABLES Performing Organization Address City/State/ZIP Co tn Phone Number [facility] documented in this encounter Visit Diagnoses Diagnosis Type I (juvenile type) diabetes mellitus without mention of complication, uncontrolled- Primary documented in this encounter Care Teams Marker Delivery Relationship Specialty Start Date End Date Nayla Miramontes MD [address] [place] [address] PCP - General 05/21/11 05/10/21 documented as of this encounter
--- OUTSIDE RECORDS SUMMARY | 2024-03-07 19:03 | XMS_ITS | Encounter Summary ---
Author Organization [facility], Located Within [facility] [place] [address] Care Team Providers Care Industrial Real Estate Agent Name Role Phone Nayla Miramontes MD Primary Care Provider [phone] Reason for Visit * Reason Comments Diabetes Encounter Details Date Type Department Care Team (Late st Contact Info) Description 05/31/2013 2:30 PM EST Office [place] [address] [address] [facility] [place] [address] Type I (juvenile type) diabetes mellitus without [...] * Patient Instructions* Roseanne Kay APRN - 05/31/2013 3:29 PM EST Will order enlite sensor after hearing from rep Given letter from Dr Andrews for Dr Miramontes Lowered basal rate at 4pm to .7 units documented in this encounter Progress Notes * Roseanne Kay, SENIOR QUALITY ANALYST - 05/31/2013 5:29 PM EST DATE OF VISIT: 05/31/2013 REASON FOR VISIT: Followup type 1 DM in poor overall control with complications of retinopathy, neuropathy, possibly gastroparesis, and hypoglycemia unawareness. Also, followup hypothyroidism. BRIEF HISTORY: Had appointment earlier today with registered radiographer for psoriatic arthritis. DATE OF DIAGNOSIS OF DIABETES: 41 years ago. DIABETES REGIMEN: MiniMed insulin pump. Basal rates 12 a.m., 0.7; 4 a.m., 0.775; 7:30, 0.95; 4 p.m., 0.8; and 7 p.m., 0.775. Total daily doses range from 36.0 to 55.5. PREVENTION STRATEGIES: She does take an RYAN inhibitor. She is followed closely by the art class model. REVIEW OF SYSTEMS: Depression and mood: Takes medication for depression. Discusses her frustration with applying for disability. Discusses the challenges of recent laser treatment on her left eye, and also she has been researching gastroparesis, and she is certain she has it, she states she is always full. She is often nauseous. Discusses the constant fear of low glucose level. She has had three EMT assistance since previous office visit to endocrinology. No recent headaches or chest pain or shortness of breath. GI symptoms, often feels nauseous and often feels full. Sleep pattern varies. Extremities: Joint pains related to psoriatic arthritis. SBGM: Up to 10 times a day. DX CODE: 250.53. PHYSICAL EXAMINATION: Appearance: She appears tired. Left eye with redness of conjunctiva. She is overweight, 196 pounds today same as it was at previous office visit. Blood pressure 118/70. Eyes: Question of retinopathy by green light exam. Neck: No thyromegaly or lymphadenopathy. Heart: Regular rate and rhythm. No murmurs. Lungs are clear to auscultation. Feet: Skin is very dry. Pulses are present. Neuro: Normal sensation to 10 g of pressure. Hemoglobin A1c 8.6%, previous was 8.5%. IMPRESSION AND PLAN: Diabetes mellitus type 1 with complications. We will try to lessen frequency of hypoglycemia. We will lower 4 p.m. basal rate to 0.7. The patient needed assistance doing that. She was having difficulty seeing the settings on her pump. She did use a sensor on the past but found it very unreliable. Advised to consider using the Enlite Sensor. Will contact [employer] [facility] to pursue ordering that that has automatic shut-off for hypoglycemia. Called occupational medicine. Reviewed Dr. Jann Andrews's note from April. Gave the patient a copy and the next step for her is to have PCP, Dr. Nayla Miramontes, write latter to [facility]. Gave the patient copy of Dr. Andrews's note from April. Hypothyroidism: Followup after TSH result. The patient also states she is worried that she is getting more forgetful. Has not been driving for a year related to possible severe hypoglycemia. Return to office in August. Will check hemoglobin A1c, TSH, and CMP. Gastroparesis: She has been trying to eat smaller more frequent meals. Blood pressure is at goal. This was a 43 minute office visit counseling patient face to face in the management of glucose levels, prevention and treatment of hypoglycemia and calling occupational medicine and contacting [employer] [facility] for enlite sensor information Recent Results (from the past 72 hour(s)) COMPREHENSIVE METABOLIC PANEL (NON-FASTING) Component Value Range Glucose Lvl 152 60 - 199 mg/dL BUN 9 8 - 18 mg/dL Creatinine 0.92 0.70 - 1.20 mg/dL Sodium 141 135 - 145 mmol/L Potassium 4.5 3.5 - 5.0 mmol/L Chloride 102 98 - 107 mmol/L CO2 30 22 - 31 mmol/L Anion Gap 9 5 - 15 mmol/L Calcium 9.7 8.5 - 10.5 mg/dL Total Protein 7.3 6.4 - 8.3 gm/dL Albumin 4.3 3.2 - 5.2 gm/dL AST 22 0 - 30 unit/L ALT 19 0 - 30 unit/L Alk Phos 68 40 - 104 unit/L Total Bilirubin 0.7 0.2 - 1.3 mg/dL Bili, Direct 0.2 0.0 - 0.3 mg/dL Estimated GFR >60 >=60 HEMOGLOBIN A1C Component Value Range Hemoglobin A1C 8.7 (*) <=5.6 % Est Avg Gluc 203 TSH Component Value Range TSH 0.17 (*) 0.27 - 4.20 mcIU/mL VIT D TOTAL EVALUATION Component Value Range 25-OH Vit D Total 30 30 - 100 ng/mL HDL/CHOL PROFILE Component Value Range Chol, Total 163 <=199 mg/dL HDL 67 >=40 mg/dL Chol/HDL Ratio 2.4 LDL CHOLESTEROL, DIRECT Component Value Range LDL Chol Direct 83 <=99 mg/dL CBC (WITH DIFF) Component Value Range WBC 6.8 4.0 - 10.0 x10(3)/mcL RBC 4.81 3.93 - 5.22 x10(6)/mcL Hemoglobin 14.1 11.2 - 15.7 gm/dL Hematocrit 41.8 34.0 - 45.0 % MCV 86.9 79.0 - 94.0 fL MCH 29.3 26.6 - 32.2 pg MCHC 33.7 32.0 - 36.5 gm/dL Platelets 309 145 - 370 x10(3)/mcL RDWSD 41.5 35.0 - 46.0 fL RDWCV 13.0 10.9 - 14.4 % MPV 9.4 9.0 - 12.0 fL DIFFERENTIAL, AUTOMATED Component Value Range Neutrophils % 47.3 34.0 - 71.0 % Neutr Abs (ANC) 3.24 1.50 - 6.30 x10(3)/mcL Lymphocytes % 43.8 19.0 - 53.0 % Lymphocytes Abs 3.0 1.0 - 3.6 x10(3)/mcL Monocytes % 5.7 4.0 - 13.0 % Monocyte Abs 0.4 0.2 - 1.0 x10(3)/mcL Eosinophils % 2.3 0.0 - 7.0 % Eosinophils Abs 0.2 0.0 - 0.5 x10(3)/mcL Basophils % 0.9 0.0 - 2.0 % Basophils Abs 0.1 0.0 - 0.2 x10(3)/mcL Immature Gran % 0.00 0.00 - 0.66 % Ros Gran Abs 0.00 0.00 - 0.05 x10(3)/mcL MICROALBUMIN, URINE, RANDOM Component Value Range U Creatinine 83 U Ran Malb Conc 19.5 U Ran Malb Calc 23 documented in this encounter Plan of Treatment Upcoming Encounters Date Type Department Care Team (Late st Contact Info) Description 05/17/2024 2:30 PM EST Office Visit Gastroenterology at [facility] [place] [address] Alcides Bonilla MD [facility] DR [place]STRO[place] [address] 04/06/2049 9:00 AM EST Hospital Encounter Gastroenterology at [facility] [place] [id number] Harry Guerrero MD [facility] [place] [address] documented as of this encounter Procedures Procedure Name Priority Date/Time Associated Diagnosis Comments U ALBUMIN/CRE RATIO Routine 05/31/2013 2 :35 PM EST Type I (juvenile type) diabetes mellitus without mention of complication, uncontrolled DIFFERENTIAL, AUTOMATED Routine 05/31/2013 2:26 PM EST VITAMIN D, 25-HYDROXY Routine 05/31/2013 2:26 PM EST Type I (juvenile type) diabetes mellitus without mention of complication, uncontrolled CBC (WITH DIFF) Routine 05/31/2013 2:26 PM EST Type I (juvenile type) diabetes mellitus without mention of complication, uncontrolled TSH Routine 05/31/2013 2:26 PM EST Type I (juvenile type) diabetes mellitus without mention of complication, uncontrolled LDL CHOLESTEROL, DIRECT Routine 05/31/2013 2:26 PM EST Type I (juvenile type) diabetes mellitus without mention of complication, uncontrolled HDL/CHOL PROFILE Routine 05/31/2013 2:26 PM EST Type I (juvenile type) diabetes mellitus without mention of complication, uncontrolled HEMOGLOBIN A1C Routine 05/31/2013 2:26 PM EST Type I (juvenile type) diabetes mellitus without mention of complication, uncontrolled COMPREHENSIVE METABOLIC PANEL Routine 05/31/2013 2:26 PM EST Type I (juvenile type) diabetes mellitus without mention of complication, uncontrolled documented in this encounter Results * (ABNORMAL) TSH (08/25/2013 9:20 AM EDT) Thyroid Stimulating Hormone 0.19(L) 0.27 - 4.20 mcIU/mL JOHN DE LEON Blood specimen (specimen) 08/25/2013 9:20 AM EDT 08/25/2013 9:34 AM EDT Narrative Resulting Agency Comment Spec In Lab Darryl Barrera MD CHEMISTRY ORDERABLES [facility] * (ABNORMAL) Hemoglobin A1c (08/25/2013 9:20 AM [...] Mellitus, Diabetes Care 2013; 36: Suppl. 1, A12-40 Estimated Average Glucose 214 mg/dL [facility] Comment: eAG equivalents for HbA1c percentages: HbA1c(%) [...] into estimated average glucose values. ??Diabetes Care 2008:31(8):5619-3835. Blood specimen (specimen) 08/25/2013 9:20 AM EDT 08/25/2013 9:34 AM EDT Narrative Resulting Agency Comment Spec In Lab Darryl Barrera MD CHEMISTRY ORDERABLES Performing Organization Address [facility] Phone Number CERNER MILLENNIUM * Microalbumin, urine, random (05/31/2013 2:35 PM EST) Creatinine, Urine 83 mg/dL CE RNER MILLENNIUM Albumin, Urine 19.5 mg/L ISABEL Webber MILLENNIUM Albumin / Creatinin Ratio, Urine 23 mcg/mg Cr JOHN MILLENNIUM Comment: Reference Range* Random collection (mcg/mg creatinine) Normal ?<30 Microalbuminuria ?? 30 - 300 Clinical Albuminuria ?? >300 *[place] Diabetes Association. Diabetic Nephropathy. Diabetes Care 1997;(Suppl 1):S24-S27 Exercise within 24 hour, infection, fever, CHF, marked hyperglycemia, and marked hypertension may elevate urinary albumin excretion over baseline values. Urine specimen (specimen) 05/31/2013 2:35 PM EST 05/31/2013 2:44 PM EST Narrative Resulting Agency Comment Spec In Lab Darryl Barrera MD URINE ORDERABLES JOHN EVANSIUM * Differential, Automated (05/31/2013 2:26 PM EST) Neutrophil % 47.3 34.0 - 71.0 % CERNER MILLENNIUM Neutrophil Absolute 3.24 1.50 - 6.30 x10(3)/mcL CERNER MILLENNIUM Lymph % 43.8 19.0 - 53.0 % CERNER MILLENNIUM Lymphocytes Abs 3.0 1.0 - 3.6 x10(3)/mcL CERNER MILLENNIUM Monocyte % 5.7 4.0 - 13.0 % CERNER MILLENNIUM Monocyte Abs 0.4 0.2 - 1.0 x10(3)/mcL CERNER MILLENNIUM Eos % 2.3 0.0 - 7.0 % CERNER MILLENNIUM Eosinophils Abs 0.2 0.0 - 0.5 x10(3)/mcL CERNER MILLENNIUM Basophil % 0.9 0.0 - 2.0 % CERNER MILLENNIUM Baso Absolute 0.1 0.0 - 0.2 x10(3)/mcL CERNER MILLENNIUM Immature Gran % 0.00 0.00 - 0.66 % CERNER MILLENNIUM Comment: Immature granulocytes(IG's)percentage and absolute count will include metamyelocytes, myelocytes, and promyelocytes. Blood smears from CBCs yielding IG's will be scanned manually for concordance. If this scan disagrees with the automated IG or if promyelocytes are noted, a manual differential will be performed. Immature Gran Absolute 0.00 0.00 - 0.05 x10(3)/mcL CERNER MILLENNIUM Blood specimen (specimen) 05/31/2013 2:26 PM EST 05/31/2013 2:43 PM EST Darryl Barrera MD HEMATOLOGY ORDERABLE S JOHN DE LEON * CBC (with Diff) (05/31/2013 2:26 PM EST) White Blood Cell 6.8 4.0 - 10.0 x10(3)/mcL CERNER MILLENNIUM Red Blood Cell 4.81 3.93 - 5.22 x10(6)/mcL CERNER MILLENNIUM Hemoglobin 14.1 11.2 - 15.7 gm/dL CERNER MILLENNIUM Hematocrit 41.8 34.0 - 45.0 % CERNER MILLENNIUM Mean Cell Volume 86.9 79.0 - 94.0 fL CERNER MILLENNIUM Mean Cell Hemoglobin 29.3 26.6 - 32.2 pg CERNER MILLENNIUM Mean Cell Hemoglobin Concentration 33.7 32.0 - 36.5 gm/dL CERNER MILLENNIUM Platelet 309 145 - 370 x10(3)/mcL CERNER MILLENNIUM RDW Standard Deviation 41.5 35.0 - 46.0 fL CERNER MILLENNIUM RDW coefficient of variation 13.0 10.9 - 14.4 % CERNER MILLENNIUM Mean Platelet Volume 9.4 9.0 - 12.0 fL CERNER MILLENNIUM Blood specimen (specimen) 05/31/2013 2:26 PM EST 05/31/2013 2:43 PM EST Narrative Resulting Agency Comment Spec In Lab Darryl Barrera MD HEMATOLOGY ORDERABLE S [facility] * LDL Cholesterol, Direct (05/31/2013 2:26 PM EST) LDL Cholesterol, Direct 83 <=99 mg/dL CERNER [facility] Comment: The National Cholesterol Education Program (NCEP) has set the following guidelines for LDL Cholesterol: Reference range: ?? Optimal: ?<100 mg/dL ?? Near Optimal/Above Optimal: ?? 100-129 mg/dL ?? Borderline high: ?130-159 mg/dL ?? High: ? 160-189 mg/dL ?? Very high: ?>mg=111 mg/dL MARIANA 2001: 285(19):6725-3449 Blood specimen (specimen) 05/31/2013 2:26 PM EST 05/31/2013 2:43 PM EST Narrative Resulting Agency Comment Spec In Lab Darryl Barrera MD CHEMISTRY ORDERABLES Performing Organization Address [facility] de Phone Number [facility] * HDL/Cholesterol Profile (05/31/2013 2:26 PM EST) Cholesterol, Total 163 <=199 mg/dL [facility] Comment: Recommendations of the NCEP Adult Treatment Panel for the following risk cutoff thresholds for the [place] population: Desirable: <200 mg/dL Borderline High: 200-239 mg/dL High: > or = 240 mg/dL HDL Cholesterol 67 >=40 mg/dL [facility] Comment: Reference range: ??Low HDL: ?? < 40 mg/dL ??Normal: ?40-60 mg/dL ??Desirable: > 60 mg/dL MARIANA 2001; 285(19):9368-0258 Cholesterol/HDL Ratio 2.[address] [facility] Comment: A Cholesterol to HDL ratio below 4:1 is desirable. ??Studies suggest that increased CAD risk occurs at ratios above 5 for females and above 6 for men. ? [place] Heart Association ??(http://www.americanheart.org) ? Uma Int Med, 1994; 121:641 ? AM J Med, 1998; 105(1A):48S Blood specimen (specimen) 05/31/2013 2:26 PM EST 05/31/2013 2:43 PM EST Narrative Resulting Agency Comment Spec In Lab Darryl Barrera MD CHEMISTRY ORDERABLES Performing Organization Address [facility] de Phone Number [facility] * VIT D Total Evaluation (05/31/2013 2:26 PM EST) Vitamin D Total 25 OH 30 30 - 100 ng/mL [facility] Comment: Deficient <10 ng/mL Insufficient 10 to 29 ng/mL Sufficient 30 to 100 ng/mL Potential Intoxication >100 ng/mL According to the [place] National Osteoporosis Foundation, Vitamin D concentrations >30 ng/mL are sufficient to protect bone health. ??The National Kidney Foundation has similarly stated that patients with Vitamin D concentrations <30ng/mL should be considered to be insufficient or deficient. http://www.kidney.org/professionals/KDOQI/guidelines_bone/Guide7.htm http://www.nof.org/professionals/clinical-guidelines The IDS iSYS Vitamin D Immunoassay detects both 25-OH Vitamin D2 and 25-OH Vitamin D3, but only a total Vitamin D concentration is reported. Blood specimen (specimen) 05/31/2013 2:26 PM EST 05/31/2013 2:43 PM EST Narrative Resulting Agency Comment Spec In Lab Darryl Barrera MD CHEMISTRY ORDERABLES Performing Organization Address [facility] de Phone Number JOHN [facility] * (ABNORMAL) TSH (05/31/2013 2:26 PM EST) Thyroid Stimulating Hormone 0.17(L) 0.27 - 4.20 mcIU/mL JOHN DE LEON Blood specimen (specimen) 05/31/2013 2:26 PM EST 05/31/2013 2:43 PM EST Narrative Resulting Agency Comment Spec In Lab Darryl Barrera MD CHEMISTRY ORDERABLES Performing Organization Address [facility] de Phone Number JOHN [facility] * (ABNORMAL) Hemoglobin A1c (05/31/2013 2:26 PM EST) Hemoglobin A1c 8.7(H) <=5.6 % ISABEL DE LEON Comment: As [...] Mellitus, Diabetes Care 2013; 36: Suppl. 1, S67-99 Estimated Average Glucose 203 mg/dL [facility] Comment: eAG equivalents for HbA1c [...] into estimated average glucose values. ??Diabetes Care 2008:31(8):7052-4192. Blood specimen (specimen) 05/31/2013 2:26 PM EST 05/31/2013 2:43 PM EST Narrative Resulting Agency Comment Spec In Lab Darryl Barrera MD CHEMISTRY ORDERABLES [facility] * Comprehensive metabolic panel (non-fasting) (05/31/2013 2:26 PM EST) Glucose 152 60 - 199 mg/dL [facility] Comment:Diabetes: >=200 mg/d L plus symptoms Blood Urea Nitrogen 9 8 - 18 mg/dL [facility] Creatinine 0.92 0.70 - 1.20 mg/dL CERNER MILLENNIUM Comment: Please note that the pediatric reference intervals supplied above were not validated at [facility]. Results from pediatric patients should be interpreted in conjunction to the patient's age, height and muscle mass. Sodium 141 135 - 145 mmol/L CERNER MILLENNIUM Potassium 4.5 3.5 - 5.0 mmol/L CERNER MILLENNIUM Comment: Please note: ??Patients with WBC >100,000 may have falsely elevated Potassium levels. ??For accurate Potassium quantification in these patients send serum separator tube (gold top) for subsequent determinations. ??Contact the Clinical Chemistry Laboratory if there are any questions. Chloride 102 98 - 107 mmol/L CERNER MILLENNIUM Carbon Dioxide 30 22 - 31 mmol/L CERNER MILLENNIUM Anion Gap 9 5 - 15 mmol/L CERNER MILLENNIUM Calcium 9.7 8.5 - 10.5 mg/dL CERNER MILLENNIUM Protein, Total 7.3 6.4 - 8.3 gm/dL CERNER MILLENNIUM Albumin 4.3 3.2 - 5.2 gm/dL CERNER MILLENNIUM Aspartate Aminotransferase 22 0 - 30 unit/L CERNER MILLENNIUM Alanine Aminotransferase 19 0 - 30 unit/L CERNER MILLENNIUM Alkaline Phosphatase 68 40 - 104 unit/L CERNER MILLENNIUM Bilirubin, Total 0.7 0.2 - 1.3 mg/dL CERNER MILLENNIUM Bilirubin, Direct 0.2 0.0 - 0.3 mg/dL CERNER MILLENNIUM Est [...] the following links into your internet browser. http://www.nkdep.nih.gov/lab-evaluation.shtml http://www.kidney.org/professionals/ Blood specimen (specimen) 05/31/2013 2:26 PM EST 05/31/2013 2:43 PM EST Narrative Resulting Agency Comment Spec In Lab Darryl Barrera MD CHEMISTRY ORDERABLES [facility] documented in this encounter Visit Diagnoses Diagnosis Type I (juvenile type) diabetes mellitus without mention of complication, uncontrolled Hypothyroidism Unspecified hypothyroidism documented in this encounter Care Teams Industrial Real Estate Agent Relationship Specialty Start Date End Date Nayla Miramontes MD [address] [facility] [address] [place] [address] PCP - General 05/21/11 05/10/21 documented as of this encounter
--- OUTSIDE RECORDS SUMMARY | 2024-03-07 19:03 | XMS_ITS | Encounter Summary ---
Author Organization [facility] Address [facility] [place] [address] Care Team Providers Care Project Management Name Role Phone Nayla Miramontes MD Primary Care Provider [phone] Encounter Details Date Type Department Care Team (Latest Contact Info) Description 02/23/2013 4:53 PM EST - 02/23/2013 11:59 PM [facility] Encounter XRay at [address] [place] [address] Knee pain, bilateral; Knee instability Social History Tobacco Use Types Packs/Day Years [...] CELECOXIB (CELEBREX ORAL) Take by mouth. 05/14/2016 esomeprazole (NEXIUM) 20 mg capsule Take 20 mg by mouth every morning (before breakfast). 07/25/2013 celecoxib (CELEBREX) 100 mg capsule Take 1 capsule by mouth 2 times daily. 120 capsule 3 02/23/2013 04/30/2015 cyclobenzaprine (FLEXERIL) 5 mg tablet Take 2 tablets by mouth nightly. 180 tablet 4 02/23/2013 05/31/2013 levothyroxine (SYNTHROID) 150 mcg tablet Take 150 mcg by mouth. 5 times a week. 11/08/2015 levothyroxine (SYNTHROID) 75 mcg tablet Take 75 mcg by mouth. 2 x's a week 06/19/2014 tolterodine (DETROL) 2 mg tablet Take 2 mg by mouth 2 times daily. 05/16/2015 gabapentin (NEURONTIN) 400 mg capsule Take 1 capsule by mouth nightly. 60 capsule 3 05/10/2012 07/25/2013 ferrous sulfate 324 mg (65 mg iron) TbEC Take 324 mg by mouth daily. 08/25/2013 Diabetic Supplies, [employer]. MiscIndications:Jaleesa betes mellitus 1 each by Misc.(Non-Drug; Combo Route) route 6 times daily. Diagnosis: 250.91 Change infusion sets every 3 days Manually fax to [employer] [facility] 600 each 3 05/30/2011 07/03/2014 insulin glargine (LANTUS) 100 unit/mL vial injectionIndication s:type 1 diabetes mellitus Inject 18 Units subcutaneously daily. 1 vial = 10ml = 1,000 units Indications: Type 1 Diabetes Mellitus 10 mL 5 04/29/2011 01/23/2017 pramlintide (SYMLINPEN 60) 1,500 mcg/1.5 mL injection Inject 60 mcg subcutaneously 3 times daily (before meals). 5.4 mL 3 04/29/2011 05/31/2013 lisinopril (PRINIVIL;ZESTRIL) 20 mg tablet Take 0.5 tablets by mouth daily. 04/29/2011 12/08/2013 melatonin 3 mg Tab Take 9 mg by mouth nightly. 03/06/2017 ESCITALOPRAM OXALATE (LEXAPRO ORAL) Take 40 mg by mouth daily. 10/25/2013 insulin lispro (HUMALOG) 100 unit/mL injection Inject subcutaneously. 5-16 units 3 times daily and as needed 11/14/2013 documented as of this encounter Plan of Treatment Upcoming Encounters Date Type Department Care Team (Late st Contact Info) Description 05/17/2024 2:30 PM EST Office [place] [address] Alcides Bonilla MD [facility] [place] [address] 04/06/2049 9:00 AM EST Hospital [place] [address] Harry Guerrero MD [facility] DR [place] [address] documented as of this encounter Procedures Procedure Name Priority Date/Time Associated Diagnosis Comments XR KNEE AP AND LAT BILAT Routine 02/23/2013 4:59 PM EST Knee pain, bilateral Knee instability documented in this encounter Results * XR knee bilateral 1 or 2 view (02/23/2013 4:59 PM EST) Anatomical Region Laterality Modality Knee Bilateral Radiographic Michelle ging 02/23/2013 4:59 PM EST Narrative 02/23/2013 5:04 PM EST Examination KNEE BILATERAL 1 OR 2 VIEWS Clinical History bilateral knee pain, right knee giving way, please provide standing view Comparison 03/05/2011. Technique AP standing view of both knees, as well as a lateral view of each knee. Findings Medial compartment joint space narrowing similar to prior, with mild productive changes in the tunnel, along the tibial spines, that may be slightly increased. ?? Mild productive changes along the dorsal aspect of the left patella greater than the right patella, unchanged. No change in bilateral patella tawnya. No joint effusion is seen. ?? Impression Question slight increased productive changes along tibial spines/in the tunnels. No other interval findings. Procedure Note Leanne Glover MD - 02/23/2013 Examination KNEE BILATERAL 1 OR 2 VIEWS Clinical History bilateral knee pain, right knee giving way, please provide standing view Comparison 03/05/2011. Technique AP standing view of both knees, as well as a lateral view of each knee. Findings Medial compartment joint space narrowing similar to prior, with mildproductive changes in the tunnel, along the tibial spines, that may be slightlyincreased. Mild productive changes along the dorsal aspect of the left patellagreater than the right patella, unchanged. No change in bilateral patella tawnya. No joint effusion is seen. Impression Question slight increased productive changes along tibial spines/in the tunnels. No other interval findings. Darryl Burgos MD IMG DX ORDERABLES documented in this encounter Visit Diagnoses Diagnosis Knee pain, bilateral Pain in joint, lower leg Knee instability Other joint derangement, not elsewhere classified, lower leg documented in this encounter Care Teams Project Management Relationship Specialty Start Date End Date Nayla Miramontes MD [address] [facility] [address] [place] [address] PCP - General 05/21/11 05/10/21 documented as of this encounter
--- OUTSIDE RECORDS SUMMARY | 2024-03-07 19:03 | XMS_ITS | Encounter Summary ---
Author Organization [facility] [place] [address] Care Team Providers Care Natural Foods Clerk Name Role Phone Nayla Miramontes MD Primary Care Provider [phone] Reason for Visit * Reason Comments Post Op s/p PPV OS on 4 Encounter Details Date Type Department Care Team (Late st Contact Info) Description 05/25/2013 8:45 AM EST Office [place] [address] Dany Young MD [facility] [place] [address] Proliferative diabetic retinopathy of both eyes, type 1, without macular edema; Psoriatic arthritis.currently on Hydroxychloroquine. No signs of hydroxychloroquine retinopathy. Recommend close followup.; Vitreous hemorrhage of left eye Discharge Disposition: Home Social History Tobacco [...] as of this encounter Progress Notes * Dnay Young MD - 06/01/2013 6:33 PM EST 1. Proliferative diabetic retinopathy of both eyes, type 1, without macular edema 2. Psoriatic arthritis.currently on Hydroxychloroquine. No signs of hydroxychloroquine retinopathy.Recommend close followup. 3. Vitreous hemorrhage of left eye Improving s/p vit 2 weeks Ointment only documented in this encounter Plan of Treatment Upcoming Encounters Date Type Department Care Team (Late st Contact Info) Description 05/17/2024 2:30 PM EST Office Visit [place] [phone] Alcides Bonilla MD [facility] [place] [address] 04/06/2049 9:00 AM EST Hospital Encounter [place] [phone] Harry Guerrero MD [facility] [place] [address] documented as of this encounter Visit Diagnoses Diagnosis Proliferative diabetic retinopathy of both eyes, type 1, without macular edema Psoriatic arthritis.currently on Hydroxychloroquine. No signs of hydroxychloroquine retinopathy. Recommend close followup. Psoriatic arthropathy Vitreous hemorrhage of left eye Vitreous hemorrhage documented in this encounter Care Teams Natural Foods Clerk Relationship Specialty Start Date End Date Nayla Miramontes MD [facility] [address] [place] [address] PCP - General 05/21/11 05/10/21 documented as of this encounter
--- OUTSIDE RECORDS SUMMARY | 2024-03-07 19:03 | XMS_ITS | Encounter Summary ---
Author Organization [facility] [place] [address] Care Team Providers Care Plodder Operator Name Role Phone Nayla Miramontes MD Primary Care Provider [phone] Reason for Referral * Psychiatric (Routine) - Closed by system - Referral Specialty Diagnoses / Procedures Referred By Contac t Referred To Contact Psychiatry Diagnoses Memory deficit Procedures PUBLIC RELATIONS ACCOUNT SUPERVISOR Testing Darryl Burgos MD [facility] [place] [address] [facility] [address] [place] [address] Referral ID Status Reason Start Date Expiration Date Visits Requested Visits Authorized [id number] Closed by system - Referral Consult, Test & Treat 05/31/2013 11/27/2013 1 1 Reason for Visit * Reason Comments Follow-up Encounter Details Date Type Department Care Team (Late st Contact Info) Description 05/31/2013 12:20 PM EST [place] [address] Darryl Burgos MD [facility] [place] [address] Memory deficit (Primary Dx) Discharge Disposition: Home Social History [...] Sign Reading Time Taken Comments Blood Pressure 118/70 05/31/2013 1:04 PM EST Pulse 90 05/31/2013 1:04 PM EST Temperature 37.1 ??C (98.8 ??F) 05/31/2013 1:04 PM ES T Respiratory Rate - - Oxygen Saturation 98% 05/31/2013 1:04 PM EST Inhaled Oxygen Concentration - - Weight 88.9 kg (196 lb) 05/31/2013 1:04 PM EST Height 167.6 cm (5' 6) 05/31/2013 1:04 PM EST Body Mass Index 31.64 05/31/2013 1:04 PM EST documented in this encounter Patient Instructions * Patient Instructions* Laura Lovelace CMA - 05/31/2013 1:46 PM EST 1) Continue Celebrex, 100 mg twice a day. 2) Increase bedtime Flexeril dose to 10 mg. 3) Continue bedtime neurontin. 4) Refer to Neuropsychology. 5) Return to follow up in three months. documented in this encounter Progress Notes * Darryl Burgos MD - 05/31/2013 1:32 PM EST REASON FOR VISIT: Follow up for psoriatic arthritis and psoriasis. INTERVAL HISTORY: The pt was a 57-year-old female, who returned for a follow up of psoriatic arthritis and psoriasis. The pt noted that since her last visit on Feb 23, 2013, she continued to be on Celebrex for pain control. She felt that her overall joint pain was under borderline control while on Celebrex. Overall, the pain was worst in her knees. She also complained of intermittent bilateral knee buckling, resulting in mechanical falls. Otherwise, she had no fever, chest pain, dyspnea, nausea, dysuria, headache, easy bruising, rash, or polydipsia. She did complain of worsening poor memory. MRI studies of the right knee obtained after her last visit showed osteoarthritis of all three compartments w ith multiple structural defects. PAST MEDICAL HISTORY: Psoriatic arthritis Psoriasis Diabetes mellitus I, on insulin pump, poorly controlled (Hba1c = 8.5) Diabetic ketoacidosis Hypothyroidism GERD Hypertension Hyperlipidemia Asthma Severe iron deficiency Microcytic anemia Vitamin [...] with her family. 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 She was currently applying for disability. FAMILY HISTORY: ?Mother - Hypertension, hyperlipidemia, hypothyroidism; of cardiac aneurysm at the age of 48. Father - Stroke x two; of a brain tumor at the age of 82. ? PHYSICAL EXAMINATION: Vitals 05/31/2013 BP 118/70 Pulse 90 Temp 98.8 Temp src Oral Height to cm. 167.6 cm Height in inches 5' 6 Weight (Bulgarian) 196 lbs Weight (Metric) 88.9 kg BMI (Calculated) 31.7 BSA (Calculated - sq m) 2.03 SpO2 98 General - Alert, co-operative, no apparent distress, oriented x 3. HEENT - PERRL, EOMI bilaterally, conjunctiva pink, no sclerae icterus or malar rash. Back - Erect, FROM; + diffuse lumbosacral spinal tenderness; no paraspinal tenderness on palpation. Extremities - Upper extremities: FROM of all joints, + right fifth finger in permanent flexion position; + joint tenderness of both shoulders at the acromioclavicular areas on palpation and range of motion; no signs of synovitis or joint effusion; + soft tissue swelling of [...] Psoriatic arthritis and 2) psoriasis in a 57-year-old female. The pt's psoriatic arthritis and psoriasis was under borderline control while on Celebrex alone. The pt elected to continue current regimen for now. 3) Right knee osteoarthritis and instability. The pt's right knee pain and instability is related to osteoarthritis and multiple structural defects. She will be considered for a orthopedic consult. 4) Severe leftward lumbar scoliosis at L2-L3 (26 degrees). The pt's severe back pain is related to both severe leftward lumbar scoliosis at L2-L3 (26 degrees) and inflammatory back disease. She will focus on symptomatic control for now. She will likely need biologic agent for immunosuppression. Meanwhile, she will continue bedtime Flexeril for symptomatic control. 5) Memory deficit. The pt will be referred to Neuropsychology for a consultation of her memory deficit. RECOMMENDATIONS: 1) Continue Celebrex, 100 mg twice a day. 2) Increase bedtime Flexeril dose to 10 mg. 3) Continue bedtime neurontin. 4) Refer to Neuropsychology. 5) Return to follow up in three months. ? Darryl Burgos MD, PhD documented in this encounter Plan of Treatment Upcoming Encounters Date Type Department Care Team (Late st Contact Info) Description 05/17/2024 2:30 PM EST Office [place] [address] Alcides Bonilla MD [facility] [place] [address] 04/06/2049 9:00 AM EST Hospital Encounter [place] [address] Harry Guerrero MD [facility] [place] [address] Scheduled Referrals Name Type Priority Associated Diagnoses Order Schedule Referral to Neuropsychology Outpatient Referral Routine Memory deficit Ordered: 05/31/2013 documented as of this encounter Visit Diagnoses Diagnosis Memory deficit- Primary Memory loss documented in this encounter Care Teams Plodder Operator Relationship Specialty Start Date End Date Nayla Miramontes MD [address] [place] [address] [facility] [address] [place] [address] PCP - General 05/21/11 05/10/21 documented as of this encounter
--- OUTSIDE RECORDS SUMMARY | 2024-03-07 19:03 | XMS_ITS | Encounter Summary ---
[place] [address] Care Team Providers Care Accounting Officer Name Role Phone Nayla Miramontes MD Primary Care Provider [phone] Reason for Visit * Reason Onset Date Comments Prior Authorization 07/25/2013 amitiza Encounter Details Date Type Department Care Team (Late st Contact Info) Description 07/25/2013 Telephone [place] [phone] Sita Keane, cognos (amitiza) Social History Tobacco Use Types Packs/Day Years [...] encounter Miscellaneous Notes * Telephone Encounter - Stia Keane RMA - 07/25/2013 4:05 PM EDT Medication: Amitiza Dosage: 8 mcg Frequency & Route: 1 po bid Insurance & Phone #: [place] medicaid [id number] ID #: [id number] Trialed (dosage, frequency): miralax Notes: [place] approved for 3 months (10/23/13) documented in this encounter Plan of Treatment Upcoming Encounters Date Type Department Care Team (Late st Contact Info) Description 05/17/2024 2:30 PM EST Office [place] [address] Alcides Bonilla MD [facility] [place] [address] 04/06/2049 9:00 AM EST Hospital En[place] [phone] Harry Guerrero MD [facility] [place] [address] documented as of this encounter Visit Diagnoses Not on filedocumented in this encounter Care Teams Accounting Officer Relationship Specialty Start Date End Date Nayla Miramontes MD [facility] [address] [place] [address] PCP - General 05/21/11 05/10/21 documented as of this encounter
--- OUTSIDE RECORDS SUMMARY | 2024-03-07 19:03 | XMS_ITS | Encounter Summary ---
Author Organization [facility] Address [facility] [place] [address] Care Team Providers Care Application Development Team Lead Name Role Phone Nayla Miramontes MD Primary Care Provider [phone] Reason for Visit * Reason Comments Cognitive Decline neuropsychological e sorin Encounter Details Date Type Department Care Team (Late st Contact Info) Description 07/13/2013 8:30 AM EDT Office Visit Psychiatry [place] [address] Jann Givens, PhD [facility] [place] [address] Cognitive disorder (Primary Dx); Depression Social History Tobacco Use Types Packs/Day Years [...] Progress Notes * Jann Givens, PhD - 07/25/2013 3:52 PM EDT CONFIDENTIAL NEUROPSYCHOLOGICAL EVALUATION Patient's Name: Roxann Jimenez#: [id number] Date of Evaluation: 07/13/2013 Sex: Female Date of : 1955 Age: 57 years Education: 16+ years Occupation: Not Currently Employed Lateral Dominance: Right-handed Referral Source: Darryl Burgos M.D. REASON FOR REFERRAL AND BACKGROUND: [place] Roxann Ceja???[place] [facility] [place]. She was referred in the context of subjective cognitive complaints. As her history is well known to you, it will only be briefly reviewed for our files. Please refer to her medical records for additional information. Background information was obtained from Mrs. Ceja, who appeared to be a reliable historian, as well as from a review of the available medical records. Mrs. Ceja reported problems with short-term memory, such as difficulty recalling details of recent conversations and newly read information. She also noted that she sometimes stops speakingmidsentence because she forgets what she intends to say. In addition to memory complaints, she reported reduced processing speed, distractibility, word finding difficulty, and executive dysfunction (e.g., poor organization skills). By her report, her cognitive problems largely began after an episode of diabetic ketoacidosis that resulted in a five day coma in April 2011. Her cognitive complaints have remained relatively stable since that time. Functionally, difficulties with basic activities of daily living were denied. However, she relies heavily on assistance from her to manage her instrumental activities of daily living. She drives infrequently due to visual impairment and the possibility of developing severe hypoglycemia. Mrs. Ceja has a history of type I diabetes mellitus with accompanying retinopathy, neuropathy, possible gastroparesis, and hypoglycemia unawareness. Her diabetes has been poorly controlled and is currently managed with an insulin pump and diet. She has experienced several episodes of hypoglycemia that have required medical assistance (interventional radiology tech visits). In addition, she experienced a vitreous hemorrhage in her left eye as a result of a flare in her diabetic retinopathy that resulted in almost complete visual loss. She has since undergone laser surgery and reported substantial improvement in her vision. Medical history is also notable for balance difficulty, osteoarthritis, psoriati c arthritis, hypothyroidism, hypertension, hyperlipidemia, gastroesophageal reflux disease, Giron???s esophagus, reflux esophagitis, asthma, anemia, vitamin D deficiency, gastric ulcer with perforation, large hiatus hernia, and lumbar scoliosis with accompanying low back pain. A history of traumatic brain injuries, CVA/TIAs, seizures, cancer, myocardial infarction, obstructive sleep apnea, and exposure to known neurotoxic substances was denied. No neuroimaging studies were available for review. Current review of systems revealed difficulty with sleep onset and daytime fatigue. Family history is notable for cancer, hypothyroidism, hypertension, hyperlipidemia, cardiac disease, myocardial in farction, and stroke. Psychiatric history is remarkable for depression that is more severe during the winter months and anxiety. She additionally described multiple life stressors within the past several years (e.g., family losses). She reported one psychiatric hospitalization in 1980 for severe depression with psychotic features (isolated to this incident). Outpatient treatment has included pharmacotherapy and psychotherapy. She currently utilizes an antidepressant medication and reported it to be somewhat helpful in ???leveling?? her mood. Current alcohol, tobacco, and illicit substance use were denied, as was a history of alcohol and illicit substance abuse. She reported a history of variable tobacco use fortwelve years prior to quitting in 1984. To her knowledge, her gestation, , and criminal defense lawyer physical development were normal. She denied a history of learning disabilities, ADHD, grade failures, or remedial education. Academically,she performed well in school, although she identified math as an area of relative weakness. She graduated from high school and obtained a bachelor???s degree in political science from [employer]. She subsequently completed a one year program in legal studies at [employer]. 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. She left that position in 2008 because of family and health issues. She has not worked since that time and is in the process of re-applying for disability after having been denied twice before. She resides with her and their teenage granddaughter. Per Mrs. Ceja, her current medications include: Humalog Insulin, Insulin pump, Synthroid (150 mcg), Lexapro (40 mg), Lisinopril (10 mg), Oxybutynin (10 mg), Nexium (40 mg), Ferrous Sulfate (325 mg), Vitamin D (1,000 mg), Atorvastatin (40 mg), and Flexeril (20 mg). BEHAVIORAL OBSERVATIONS: Mrs. Ceja was tested as an outpatient at [place] [facility] [place]. She was accompanied by her . She was casually dressed and appropriately groomed. She was alert and oriented. She wore glasses, and eye contact with the examiner was appropriate. Motor activity was somewhat slow. No abnormal movements were apparent upon informal observation. Spontaneous speech was fluent, grammatical, and normal in rate, volume, and prosody. There was no evidence of excessive paraphasic errors or word finding difficulties. Thoughts were somewhat tangential but of normal content. Moodwas described as ???pretty good?? and affect was generally congruent with mood. She was cooperative with the testing. However, her performance was variable on validity measures. Therefore, the current findings may underestimate her maximal level of cognitive functioning. PROCEDURES ADMINISTERED: Clinical Interview; Lateral Dominance Examination; Giovanny Adult Intelligence Scale - 4th edition (WAIS-IV); Giovanny Memory Scale - 4th edition (WMS-IV, selected subtests); [place] Verbal Learning Test, Second Edition (CVLT-II); Brief Visuospatial Memory Test - Revised (BVMT-R); Bette??? Continuous Performance Test (CPT-II); Aleksandra-Lenz Executive Function System (D-KEFS, selected subtests);Wisconsin Card Sorting Test (WCST); Paced Auditory Serial Addition Test (PASAT, Bishop version); Comprehension of Complex Ideational Material (from BDAE; Ponsford Diagnostic Aphasia Examination); Ponsford Naming Test (BNT); Advanced Clinical Solutions (ACS, selected subtests); Grooved Pegboard Test; Finger Tapping Test; DCT; Paez Depression Inventory-II (BDI-II); Paez Anxiety inventory (NORRIS); Behavior Rating Inventory of Executive Function - Adult version (BRIEF-A). TEST RESULTS: Note: Descriptors are based on appropriate normative data and the chart below, and are adjusted based on clinical judgment. DESCRIPTOR Percentile Rank DESCRIPTOR Percentile Rank Very Superior 98 and above Extremely Low 1.9 and below Superior 91 to 97 Mildly Impaired 0.38 to 1.9 High Average 75 to 90 Moderately Impaired 0.13 to 0.37 Average 25 to 74 Severely Impaired 0.12 and below Low Average 9 to 24 Borderline 2 to 8 General Intellectual Functioning: Descriptor RANGE WAIS-IV: Age-Scaled Scores Full Scale IQ 95 Average General Ability Index 107 Average Verbal Comprehension Index: 114 High Average Similarities 10 Average Vocabulary 13 High Average Information 15 Superior Perceptual Reasoning Index: 100 Average Block Design 10 Average Matrix Reasoning 11 Average Visual Puzzles 9 Average Working Memory Index: 80 Low Average Digit Span 3 Mildly Impaired Arithmetic 10 Average Processing Speed Index: 79 Borderline Symbol Search 7 Low Average Coding 5 Borderline Memory: Giovanny Memory Scale-IV: Raw Score (scaled score) Logical Memory I 23/50 (9) Average Logical Memory II 14/50 (7) Low Average Logical Memory Recognition 25/30 Average California Verbal Learning Test-II: Raw Score Total Trials 1-5 (4-3-2-3-4) Severely Impaired Short-Delay Free Recall 07/20 Mildly Impaired Short-Delay Cued Recall 6/ Mildly Impaired Long Delayed Free Recall / Moderately Impaired Long Delayed Cued Recall 10/19 Borderline Recognition 11/19 Severely Impaired False Positive Errors 3 Average Discriminability 1.3 Borderline Forced Choice Recognition -- BVMT-R: Raw Score Trial 1 07/16 Low Average Trial 2 08/15 Borderline Trial 3 07/16 Moderately Impaired Total Recall (Trials 1-3) Borderline Delayed Recall 05/18 Severely Impaired Recognition Hits 2/6 Impaired False Positive Errors 0/6 Within Normal Limits Recognition Discriminability 2 Impaired Copy 03/17 -- Attention/Executive Functioning: WAIS-IV Digit Span: Scaled Score Digit Span Forward 2 (max span = 4) Mildly Impaired Digit Span Backward 5 (max span = 2) Borderline Digit Span Sequence 5 (max span = 3) Borderline Continuous Performance Test-II: Raw Score Omission Errors 9 Elevated Commission Errors 26 Elevated Hit Reaction Time 442.33 Average Hit Reaction Standard Error 7.83 Elevated Variability 10.36 Elevated Detectability .40 Elevated Response Style .39 Elevated Perseverations 1 Elevated Hit Reaction Time Block Change -.04 High Average Hit Standard Error Block Change -.13 High Average Hit Reaction Time BRIDGETTE Change .01 Average Hit Standard Error BRIDGETTE Change -.14 High Average D-KEFS Ludlow Making Test: Raw Score (scaled score) Visual Scanning 60 Secs., 5 errors (1) Moderately to Severely Impaired Number Sequencing 60 Secs., 0 errors (6) Low Average Letter Sequencing 90 Secs., 1 error (1) Moderately to Severely Impaired Number-Letter Switching 185 Secs., 1 error (3) Mildly Impaired Motor Speed 84 Secs., 0 errors (3) Mildly Impaired Wisconsin Card Sorting Test: Raw Score Categories Completed (Trials) 6 (128) Low Average Perseverative Errors 13 Average Failure to Maintain Set 5 Impaired PASAT: Raw Score 3?? Trials 31/60 Borderline 2?? Trials Not Administered -- Language: Raw Score Sentence Comprehension 02/15 Average Confrontation Naming 59/60 High Average Test of Premorbid Functioning JB=807 Average D-KEFS Verbal Fluency Test: Raw Score (scaled score) Letter Fluency Total 38 (10) Average Category Fluency Total 39 (10) Average Category Switching Total 15 (12) High Average Category Switching Accuracy 14 (12) High Average Sensory-Motor Functioning: Grooved Pegboard Test: Right Hand (Dominant) Left Hand Raw Score 120?? , 1 drop 132?? , 1 drop Severely Impaired Severely Impaired Finger Tapping Test: Mean Score Right Hand 16.4 Severely Impaired Left Hand 14.6 Severely Impaired Mood Screening: Raw Score Paez Depression Inventory - II 31 Severe Symptoms Paez Anxiety Inventory 24 Moderate Symptoms SELF-REPORT MEASURES On self-report measures of emotional functioning, Mrs. Ceja???s pattern of responses indicated severe symptoms of depression and moderate anxiety. She endorsed suicidal ideation without a plan or intent. On the BRIEF-A, a questionnaire measure of executive functions in everyday life over the past month, Mrs. Ceja???s pattern of responses indicated a valid profile and revealed that she has observed significant problems with her ability to think flexibly, monitor the effects of her behaviorin social settings, independently initiate activities, inhibit impulsive responses, regulate her emotions, actively retain and manipulate information in her mind (working memory), plan and organize, monitor her performance on tasks for accuracy, and organize materials in her environment. REVIEW OF TEST RESULTS: Intellectual Functioning: Overall intellectual functioning, based on the WAIS- IV, was estimated to fall within the average range, with a significant (14 point) difference between high average range verbal and average range perceptual skills. Working memory was in the low average range as a result of difficulty on a task involving basic auditory attention and working memory. Processing speed was within the borderline range. Baseline abilities were estimated to fall in the average range based on a word reading test and demographic characteristics. These findings suggest that she is currently functioning at a level commensurate with her baseline abilities with respect to her core verbal and perceptual skills. Memory: Immediate recall and delayed recall for contextual verbal information (i.e., short stories)were in the average and low average ranges, respectively, with intact recognition. Learning for noncontextual verbal information (i.e., a word list) was in the severely impaired range and she did notbenefit from repeated learning trials. Short delay and long delay free recall were in the mildly and moderately impaired ranges, respectively. Cues mildly assisted performance, particularly followingthe long delay. Recognition discriminability was in the borderline range due to difficulty identifying the target words. However, she identified as many words as she recalled during learning and recall trials. Total visual learning was in the borderline range and her performance did not improve with repeated exposure. Delayed visual recall was in the severely impaired range and recognition discriminability was also impaired due to trouble identifying the target figures. Overall, she demonstrated difficulty encoding and retrieving unstructured verbal and visual material. Attention and Executive Functions: Basic auditory attention, visual scanning, and letter sequencingwere impaired. Her performance was notable for five omission errors on the scanning task and one set loss error on the letter sequencing task. Number sequencing was in the low average range and psychomotor processing speed was in the borderline to low average range. Her performance on a sustained visual attention task was notable for an elevated number of omission and commission errors as well asfor mild variability with respect to her response speed. Executive functions were intact for abstract reasoning and speeded verbal mental flexibility. Nonverbal speeded mental flexibility was in the mildly impaired range with one set loss error. Auditory working memory was generally within the borderline range, although her performance was intact on a task involving mental arithmetic. On a novel problem solving procedure, identified four of six categories and failed to maintain cognitive set onfive occasions. Overall, she demonstrated a number of difficulties related to attention and executive function. Language Skills: Receptive language was in the average range. Expressive language skills were in the average to high average range for word reading, verbal fluency, expressive vocabulary, and object naming. Motor Skills: Fine motor coordination and simple motor speed were in the severely impaired range bilaterally. Visuospatial and Visuoconstruction Skills: Design construction using blocks and mental manipulationof [id number] relationships to form a design were in the average range. SUMMARY AND RECOMMENDATIONS: On the present evaluation, Mrs. Ceja???s performance was impaired for aspects of attention, including basic auditory attention, visuomotor scanning and sequencing, and sustained visual attention. Encoding and recall for unstructured verbal and visual material were also impaired, as were her fine motor skills bilaterally. She endorsed significant executive dysfunction in her daily life and performance-based measures revealed difficulty on some tasks involving mental flexibility, novel problem solving, auditory working memory, and inhibitory control. These findings were observed in the context of estimated high average range verbal and average range perceptual intellectual skills, mo derate to severe levels of affective distress, and variability on performance validity measures. Overall, the current results revealed difficulty with memory, attention, executive function, and motor skills, suggestive of frontotemporal and subcortical systems dysfunction. Mrs. Ceja noted that her cognitive problems largely began following an episode of diabetic ketoacidosis which res ulted in a five day coma in April 2011. Thus, her current difficulties likely reflect ongoing residual symptoms related to this event. However, she has a number of vascular-related health conditions, in addition to diabetes, which may be impacting her cognitive functioning as well. Furthermore, she endorsed elevated levels of affective distress, sleep difficulty, and daytime fatigue, all of which can adversely impact cognition. Therefore, the cognitive problems that she is reporting and demonstrating likely reflect a combination of the variables described above. If not already completed, a neuroimaging study is recommended to further inform differential diagnosis. Continued monitoring and management of her medical conditions, sleep, and fatigue are encouraged. She may wish to consider seeing a counselor who is knowledgeable in behavioral medicine (such as [place] [facility] to address coping strategies for managing her chronic health conditions and physical complaints (e.g., pain). She might also, consider consulting with a sleep specialist to assist with her sleep difficulties. Given her fatigue, she should save priorities and mentallydemanding tasks for when she is feeling most rested and capable. Finally, working with someone who specializes in cognitive rehabilitation may help her more effectively manage the cognitive difficulties that interfere with her day to day functioning. Anxiety and depression can lead to some of the cognitive problems that she is reporting and demonstrating. As such, ongoing mental health treatment is recommended and she is encouraged to participatein psychotherapy in addition to pharmacotherapy. In her daily life, she may benefit from removing distracters from her immediate environment so thatshe can focus on one task at a time, which may improve difficulties with attention/concentration. Simple behavioral strategies include working in a quiet and distraction-free environment, taking frequent short breaks, and avoiding complex tasks in highly stimulating situations. Additionally, she may be better able to maintain her attention on a task or activity if it is well-organized beforehand.Specifically, breaking lengthy and complex tasks into simpler steps can facilitate the development of an organized and well-planned approach. If she has difficulty keeping track of more than one stepat a time, providing a written checklist of steps required to complete a task can serve as an external memory support and alleviate some of the burden on working memory. Mrs. Ceja is encouraged to utilize multiple strategies when learning new information, such as repeating it, writing it down, and putting it into her own words to promote encoding through multi-modal learning. Her verbal memory was better when information was presented within an inherentlyorganized context. Therefore, making information more meaningful may improve encoding and retention. Providing cues may also assist memory retrieval. To improve executive functions, she may benefit from establishing a set routine or schedule and focusing on one task at a time to facilitate better problem solving. Obtaining help ???brainstorming?? alternate approaches to address complex and/or novel problems may also be helpful. To assist with reported planning and organizational difficulties, she should routinely use an organizer, strategic planner, calendar, or similar device to help her better manage daily tasks. Additionally, keeping her space clutter-free by initiating the use of an organizational system can help with organization (e.g., clearly labeled file folders and cabinets). Mrs. Ceja complained of difficulties with task initiation. She may find that setting smaller and more structured goals that appear less daunting may improve her ability to initiate activities. It may also be helpful for her to allow herself more time to complete tasks than she initially expects them to take, which could reduce the likelihood of failing to meet self-imposed deadlines. Scheduling specific times to prioritize, plan, and organize tasks to be accomplished may also help. 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 Repeat testing in twelve months or later may be helpful if further cognitive and/or functional declines are reported. Thank you for referring Mrs. Ceja for evaluation. Please contact us at [phone] if we canbe of further assistance. Lucia Ponce, Ph.D. Jann Givens, Ph.D. Neuropsychology Postdoctoral Fellow Clinical Neuropsychologist [employer]erman[employer] strategy & account This report was prepared by Lucia Ponce, Ph.D., Postdoctoral Fellow in Neuropsychology, under the supervision of Jann Givens, Ph.D. documented in this encounter Plan of Treatment Upcoming Encounters Date Type Department Care Team (Late st Contact Info) Description 05/17/2024 2:30 PM EST Office [place] [phone] Alcides Bonilla MD [facility] [place] [address] 04/06/2049 9:00 AM EST Hospital [place] [id number] Harry Guerrero MD [facility] [place] [address] documented as of this encounter Visit Diagnoses Diagnosis Cognitive disorder- Primary Unspecified persistent mental disorders due to conditions classified elsewhere Depression Depressive disorder, not elsewhere classified documented in this encounter Care Teams Application Development Team Lead Relationship Specialty Start Date End Date Nayla Miramontes MD [facility] [address] [place] [address] PCP - General 05/21/11 05/10/21 documented as of this encounter
--- OUTSIDE RECORDS SUMMARY | 2024-03-07 19:03 | XMS_ITS | Encounter Summary ---
Author Organization [facility] [place] [address] Care Team Providers Care Mixing Place Supervisor Name Role Phone Nayla Miramontes MD Primary Care Provider [phone] Reason for Visit * Reason Comments Post Op s/p 1 day VITRECTOMY , PARS PLANA, LASER OS Encounter Details Date Type Department Care Team (Late st Contact Info) Description 05/17/2013 10:45 AM EST Office [place] [address] Dany Young MD [facility] [address] [place] [address] Diabetic retinopathy associated with type 1 diabetes mellitus, without macular edema, with proliferative retinopathy (Primary Dx) Discharge Disposition: Home Social History [...] as of this encounter Progress Notes * Dany Young MD - 05/16/2013 10:12 PM EST 1. Diabetic retinopathy associated with type 1 diabetes mellitus, without macular edema, with proliferative retinopathy Stable POD1 Vit/EL 1 week or blake prn POD1 Vitrectomy,EL for VH/PDR Vigamox and Pred Forte qid documented in this encounter Plan of Treatment Upcoming Encounters Date Type Department Care Team (Late st Contact Info) Description 05/17/2024 2:30 PM EST Office [place] [address] Alcides Bonilla MD [facility] [place] [address] 04/06/2049 9:00 AM EST Hospital Encounter [place] [phone] Harry Guerrero MD [facility] DR [place]STRO[place] [address] documented as of this encounter Visit Diagnoses Diagnosis Diabetic retinopathy associated with type 1 diabetes mellitus, without macular edema, with proliferative retinopathy- Primary documented in this encounter Care Teams Mixing Place Supervisor Relationship Specialty Start Date End Date Nayla Miramontes MD [facility] [address] L[address]PEZ [facility] [address] [place] [address] PCP - General 05/21/11 05/10/21 documented as of this encounter
--- OUTSIDE RECORDS SUMMARY | 2024-03-07 19:03 | XMS_ITS | Encounter Summary ---
Author Organization [facility] Address [facility] [place] [address] Care Team Providers Care Ranch Helper Name Role Phone Nayla Miramontes MD Primary Care Provider [phone] Reason for Visit * Reason Comments Back Pain Encounter Details Date Type Department Care Team ([facility] st Contact Info) Description 02/23/2013 3:15 PM EST [place] [address] Darryl Burgos MD [facility] [place] [address] Knee pain, bilateral; Knee instability Discharge Disposition: Home Social History Tobacco Use [...] Sign Reading Time Taken Comments Blood Pressure 113/95 02/23/2013 3:44 PM EST Pulse 90 02/23/2013 3:44 PM EST Temperature 36.8 ??C (98.2 ??F) 02/23/2013 3:44 PM ES T Respiratory Rate - - Oxygen Saturation 98% 02/23/2013 3:44 PM EST Inhaled Oxygen Concentration - - Weight 88.7 kg (195 lb 9.6 oz) 02/23/2013 3:44 P M EST Height 167.6 cm (5' 6) 02/23/2013 3:44 PM EST Body Mass Index 31.57 02/23/2013 3:44 PM EST documented in this encounter Patient Instructions * Patient Instructions* Darryl Burgos MD - 02/23/2013 4:20 PM EST 1) Continue Celebrex, 100 mg twice a day. 2) Increase bedtime Flexeril dose to 10 mg. 4) Get X-ray of the knees today. 5) Get MRI of the right knee. 6) Return to follow up in three months. documented in this encounter Progress Notes * Darryl Burgos MD - 02/23/2013 3:10 PM EST REASON FOR VISIT: Follow up for psoriatic arthritis and psoriasis. INTERVAL HISTORY: The pt was a 57-year-old female, who returned for a follow up of psoriatic arthritis and psoriasis. The pt noted that since her last visit on July 20, 2012, she was no longer on methotrexate for immunosuppression of her psoriasis and psoriatic arthritis. She ran out of a script for her methotrexate, and decided not to continue methotrexate. She was currently using Celebrex for pain control. She felt that her overall joint pain was under borderline control while on Celebrex. [facility] [place] pain on August 13, 2012. It was thought that her backpain was likely a result of inflammatory back disease rather than her scoliosis. Treatment was to focus on pain control. She suffered a mechanical fall when her right knee gave way, and she subsequently fractured her right 5th finger. Otherwise, she had no fever, chest pain, dyspnea, nausea, dysuria, headache, easy bruising, or polydipsia. Laboratory studies obtained after her last visit were normal for chemistry, LFT, ESR, CRP, CBC with differential, and 25-hydroxyvitamin D. Her urinalysis showed marked glycosuria. PAST MEDICAL HISTORY: Psoriatic arthritis Psoriasis Diabetes [...] with her family. 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 She was currently applying for disability. FAMILY HISTORY: ?Mother - Hypertension, hyperlipidemia, hypothyroidism; of cardiac aneurysm at the age of 48. Father - Stroke x two; of a brain tumor at the age of 82. ? PHYSICAL EXAMINATION: Vitals 02/23/2013 SYSTOLIC 113 DIASTOLIC 95 PULSE 90 TEMPERATURE 98.2 Height (Nigerian) 5' 6 Height (Metric) 167.6 cm Weight (Nigerian) 195 lbs 10 oz Weight (Metric) 88.724 kg BODY MASS INDEX 31.59 kg/m2 Pulse Oximetry 98 General - Alert, [...] under borderline control while on Celebrex alone. She will continue current regimen for now until further workup is completed (see below). 3) Right knee instability. The pt will need to undergo radiographic and MRI studies of the right knee to evaluate for structural defects that resulted in her right knee instability and subsequent mechanical fall. 4) Severe leftward lumbar scoliosis at L2-L3 (26 degrees). The pt's severe back pain is related to both severe leftward lumbar scoliosis at L2-L3 (26 degrees) and inflammatory back disease. She will focus on symptomatic control for now. She will likely need biologic agent for immunosuppression. Meanwhile, she will increase bedtime Flexeril to twice daily dosing. RECOMMENDATIONS: 1) Continue Celebrex, 100 mg twice a day. 2) Increase bedtime Flexeril dose to 10 mg. 4) Get X-ray of the knees today. 5) Get MRI of the right knee. 6) Return to follow up in three months. ? Darryl Burgos MD, PhD documented in this encounter Plan of Treatment Upcoming Encounters Date Type Department Care Team (Late st Contact Info) Description 05/17/2024 2:30 PM EST Office [place] [address] Alcides Bonilla MD [facility] [place] [address] 04/06/2049 9:00 AM EST Hospital Encounter [place] [address] Harry Guerrero MD [facility] DR [place] [address] documented as of this encounter Results * XR knee bilateral [...] joint derangement, not elsewhere classified, lower leg Knee pain, bilateral Pain in joint, lower leg Knee instability Other joint derangement, not elsewhere classified, lower leg documented in this encounter Care Teams Ranch Helper Relationship Specialty Start Date End Date Nayla Miramontes MD [facility] [address] [place] [address] PCP - General 05/21/11 05/10/21 documented as of this encounter
--- OUTSIDE RECORDS SUMMARY | 2024-03-07 19:03 | XMS_ITS | Encounter Summary ---
Author Organization [facility] [place] [address] Care Team Providers Care Environmental Health Nurse Name Role Phone Nayla Miramontes MD Primary Care Provider Reason for Visit * Reason Comments Procedure PRP, OD with block Encounter Details Date Type Department Care Team (Late Contact Info) Description 04/11/2013 1:30 PM EST [place] [address] Sosa Hewitt MD PDR (proliferative diabetic retinopathy) (Primary Dx) Discharge Disposition: Home Social History [...] as of this encounter Miscellaneous Notes * Miscellaneous - Provider, Scanning - 04/18/2013 9:01 AM EST documented in this encounter Plan of Treatment Upcoming Encounters Date Type Department Care Team (Late Contact Info) Description 05/17/2024 2:30 PM EST Office [place] [address] Alcides Bonilla MD [facility] [place] [address] 04/06/2049 9:00 AM EST Hospital [place] [address] Harry Guerrero MD [facility] [place] [address] documented as of this encounter Procedures Procedure Name Priority Date/Time Associated Diagnosis Comments DESTRUCTION PROG RETINOPATHY PHOTOCOAG:SUB SESSION - OD - RIGHT EYE Routine 04/11/2013 2:48 PM EST PDR (proliferative diabetic retinopathy) documented in this encounter Results * Panretinal Photocoagulation Subsqu. Session - OD - Right Eye (04/11/2013 2:48 PM EST) Laser Applications 243 Laser [employer] Energy Anatomical Region Laterality Modality Other Sosa Hewitt MD OPHTHALMOLOGY SERV ICES ORDERABLES documented in this encounter Visit Diagnoses Diagnosis PDR (proliferative diabetic retinopathy)- Primary Type II or unspecified type diabetes mellitus with ophthalmic manifestations, not stated as uncontrolled documented in this encounter Care Teams Environmental Health Nurse Relationship Specialty Start Date End Date Nayla Miramontes MD [address] [place] [address] PCP - General 05/21/11 05/10/21 documented as of this encounter
--- OUTSIDE RECORDS SUMMARY | 2024-03-07 19:03 | XMS_ITS | Encounter Summary ---
Author Organization [facility] [place] [address] Care Team Providers Care Bindery Production Manager Name Role Phone Nayla Miramontes MD Primary Care Provider [phone] Reason for Visit * Reason Onset Date Comments Medication Refill 05/03/2013 Encounter Details Date Type Department Care Team (Late st Contact Info) Description 05/03/2013 [place] [address] Roseanne Kay APRN [facility] [place] [address] Type I (juvenile type) diabetes mellitus without [...] encounter Miscellaneous Notes * Telephone Encounter - Rae Long LPN - 05/03/2013 1:38 PM EST Faxed pump and supply order to [employer] at [phone]. Dx Code: 250.01 documented in this encounter Plan of Treatment Upcoming Encounters Date Type Department Care Team (Late st Contact Info) Description 05/17/2024 2:30 PM EST Office [place] [address] Alcides Bonilla MD [facility] [place] [address] 04/06/2049 9:00 AM EST Hospital En[place] [phone] Harry Guerrero MD [facility] [place] [address] documented as of this encounter Visit Diagnoses Diagnosis Type I (juvenile type) diabetes mellitus without mention of complication, not stated as uncontrolled- Primary documented in this encounter Care Teams Bindery Production Manager Relationship Specialty Start Date End Date Nayla Miramontes MD [facility] [address] [place] [address] PCP - General 05/21/11 05/10/21 documented as of this encounter
--- OUTSIDE RECORDS SUMMARY | 2024-03-07 19:03 | XMS_ITS | Encounter Summary ---
Author Organization [facility] [facility] [place] [address] Care Team Providers Care Service And Repair Supervisor Name Role Phone Nayla Miramontes MD Primary Care Provider [phone] Reason for Visit * Reason Comments PDR 11 months f/u PDR OU post PRP OU Decreased Visual Acuity Decrease VA OU x 1 month Encounter Details Date Type Department Care Team (Late st Contact Info) Description 03/24/2013 1:30 PM EST [place] [phone] Sosa Hewitt MD Vitreous hemorrhage of both eyes (Primary Dx) Discharge Disposition: Home Social History [...] Progress Notes * Sosa Hewitt MD - 03/24/2013 3:43 PM EST OU: PDR post PRP with recurrent vitreous hemorrhage OU. OD has moderate vit heme, and I will attempt to add laser over next 2-3 weeks. OS has large, nonclearing vit heme, present for over 2 months. Will refer to Dr Young for consideration of vitrectomy. documented in this encounter Plan of Treatment Upcoming Encounters Date Type Department Care Team (Late st Contact Info) Description 05/17/2024 2:30 PM EST Office [place] [phone] Alcides Bonilla MD [facility] [place] [address] 04/06/2049 9:00 AM EST Hospital En[place] [phone] Harry Guerrero MD [facility] [place] [address] documented as of this encounter Visit Diagnoses Diagnosis Vitreous hemorrhage of both eyes- Primary Vitreous hemorrhage documented in this encounter Care Teams Service And Repair Supervisor Relationship Specialty Start Date End Date Nayla Miramontes MD [facility] ANABELLA LÓPEZ [facility] [address] [place] [address] PCP - General 05/21/11 05/10/21 documented as of this encounter
--- OUTSIDE RECORDS SUMMARY | 2024-03-07 19:03 | XMS_ITS | Encounter Summary ---
Author Organization [facility] [place] [address] Care Team Providers Care Bad Credit Collector Name Role Phone Nayla Miramontes MD Primary Care Provider [phone] Reason for Referral * Consultation (Routine) - Closed Specialty Diagnoses / Procedures Referred By Franklin laird Referred To Contact Gastroenterology Diagnoses Early satiety Epigastric abdominal pain Abdominal bloating Tamanna Nguyen, [facility] [place] [address] [facility] [address] [place] [address] Referral ID Status Reason Start Date Expiration Date V isits Requested Visits Authorized [id number] Closed Consult, Test & Treat 07/25/2013 01/21/2014 1 1 Reason for Visit * Reason Comments GI Problem Encounter Details Date Type Department Care Team (Late st Contact Info) Description 07/25/2013 11:00 AM EDT Office [place] [phone] Tamanna Nguyen [facility] [place] [address] Early satiety; N&V (nausea and vomiting); Epigastric abdominal pain; Abdominal bloating; Constipation; Giron's esophagus; Esophageal reflux; Dysphagia Discharge Disposition: Home Social History Tobacco [...] Sign Reading Time Taken Comments Blood Pressure 119/58 07/25/2013 10:54 AM EDT Pulse 90 07/25/2013 10:54 AM EDT Temperature - - Respiratory Rate 18 07/25/2013 10:54 AM EDT Oxygen Saturation - - Inhaled Oxygen Concentration - - Weight 88 kg (194 lb) 07/25/2013 10:54 AM EDT Height 167.6 cm (5' 6) 07/25/2013 10:54 AM EDT Body Mass Index 31.31 07/25/2013 10:54 AM EDT documented in this encounter Patient Instructions * Patient Instructions* Tamanna Nguyen APRN - 07/25/2013 11:44 AM EDT 1. Gastric emptying scan to evaluate for gastroparesis 2. Small bowel follow through to evaluate the function of your small bowel 3. Esophageal manometry to evaluate the function of esophagus 4. Nexium 40 mg on an empty stomach 30 minutes before breakfast 5. Gastroparesis diet and copy provided 6. Recommend eating smaller more frequent 6-8 low fat meals; consider having a liquid dinner 7. Nausea: Zofran unde the tongue every 8 hours as needed 8. Nausea: Tigan 300 mg every 8 hours as needed; can alternate with Zofran, it is safe 9. Nutrition consult 10. MiraLax 1 cap full (178 grams) before bedtime 11. Amitiza 8 mcg twice a day with food 12. Will contact you with the results of your tests 13. Email or call with an update in 4-6 weeks 14. Follow up 3 months documented in this encounter Progress Notes * Tamanna Nguyen APRN - 07/25/2013 11:00 AM EDT Subjective: Patient ID: Roxann Ceja is a 57 y.o. Woman who presents for further evaluation of her gastrointestinal symptoms at the request of Roseanne Kay APRN. HPI Comments: Mrs Ceja is a pleasant 57 year [...] incisors, there was a possible island of Giron's esophagus; a 5 cm hiatus [...] allergies or intolerances. Remainder of ROS unremarkable. Recent tests: EGD 04/27/2012:The Z-line was variable and was [...] positive for Giron's esophagus but no dysplasia. Review of Systems Constitutional: Positive for appetite change (See HPI). Negative for fever, chills, diaphoresis, activity change, fatigue and unexpected weight change. HENT: Positive for trouble swallowing (See HPI). Negative for hearing loss, ear pain, nosebleeds, congestion, sore throat, facial swelling, rhinorrhea, sneezing, drooling, mouth sores, neck pain, neck stiffness, dental problem, voice change, postnasal drip, sinus pressure, tinnitus and ear discharge. Eyes: H/o diabetic neuropathy. Respiratory: Negative. H/o asthma. Cardiovascular: Negative. H/o HTN and HLD. Gastrointestinal: See HPI Musculoskeletal: Positive for arthralgias (H/o psoriasis arthritis. ). Skin: Negative. Neurological: Negative. Hematological: Negative. Psychiatric/Behavioral: Positive for dysphoric mood (H/o depression that is controlled on medication. ). Negative for suicidal ideas, hallucinations, behavioral problems, confusion, sleep disturbance, self-injury, decreased concentration and agitation. The patient is not nervous/anxious and is not h yperactive. Allergies Allergen Reactions ??? Codeine Phosphate ??? Propoxyphene N-Acetaminophen Current Outpatient Prescriptions on File Prior to Visit Medication Sig Dispense Refill ??? cyclobenzaprine (FLEXERIL) 5 mg tablet Take 2 tablets by mouth nightly. 180 tablet 4 ??? Diabetic Supplies, [facility]isc[employer]an. [facility] Faxed pump and supply order to [employer] at [phone]. DxCode: 250.01 100 each 12 ??? esomeprazole (NEXIUM) 20 mg capsule Take 20 mg by mouth every morning (before breakfast). ??? celecoxib (CELEBREX) 100 mg capsule Take 1 capsule by mouth 2 times daily. 120 capsule 3 ??? levothyroxine (SYNTHROID) 150 mcg tablet Take 150 mcg by mouth. 2 times a week ??? levothyroxine (SYNTHROID) 75 mcg tablet Take 75 mcg by mouth. 5 x's a week ??? tolterodine (DETROL) 2 mg tablet Take 2 mg by mouth 2 times daily. ??? gabapentin (NEURONTIN) 400 mg capsule Take 1 capsule by mouth nightly. 60 capsule 3 ??? ferrous sulfate 324 mg (65 mg iron) TbEC Take 324 mg by mouth daily. ??? Diabetic Supplies, Miscellan. Misc 1 each by Misc.(Non-Drug; Combo Route) route 6 times daily. Diagnosis: 250.91 Change infusion sets every 3 days Manually fax to [employer] Diabetes 600 each 3 ??? insulin glargine [...] ringers infusion Continuous PRN Roxann Rolon CRNA Past Medical History Diagnosis Date ??? Diabetes mellitus ??? Thyroid disease ??? Skin disease ??? GERD (gastroesophageal reflux disease) ??? Hyperlipidemia ??? Hypertension ??? Anxiety ??? Asthma ??? Cortical cataract 05/05/2011 ??? PDR (proliferative diabetic retinopathy) 05/25/2011 Past Surgical History Procedure Date ??? Upper gi endoscopy, exam 04/25/2011 UPPER GI ENDOSCOPY performed by MARIA DEL CARMEN BOB at [facility] ENDOSCOPY ??? Upper gi endoscopy, biopsy 04/27/2012 UPPER GASTROINTESTINAL ENDOSCOPY,WITH BIOPSY SINGLE OR MULTIPLE performed by Luis Bucio MD [facility] ENDOSCOPY ??? Retinal laser surgery ??? Vitrectomy,focal laser rx retina 05/16/2013 OS VITRECTOMY, PARS PLANA, LASER performed by Dany Young MD at [facility] MAIN OR ??? Finger surgery History Social History ??? Marital Status: Spouse [...] History Narrative ??? No narrative on file FMHx: no h/o esophageal cancer; IBD; celiac disease; liver or pancreatic disease. Maternal GF: colon cancer dx at age 50's Vital Signs: BP 119/58; P 90; Wt 194 lbs; Ht 5'6 Objective: Physical Exam Vitals reviewed. Constitutional: She is oriented to person, place, and time. She appears well- developed and well-nourished. No distress. HENT: Head: Normocephalic and atraumatic. Mouth/Throat: Oropharynx is clear and moist. No oropharyngeal exudate. Eyes: Conjunctivae normal and EOM are normal. Pupils are equal, round, and reactive to light. Righteye exhibits no discharge. Left eye exhibits no discharge. No scleral icterus. Neck: Normal range of motion. Neck supple. No JVD present. No tracheal deviation present. No thyromegaly present. Cardiovascular: Normal rate, regular rhythm, normal heart sounds and intact distal pulses. Exam reveals no gallop and no friction rub. No murmur heard. Pulmonary/Chest: Effort normal and breath sounds normal. No stridor. No respiratory distress. She has no wheezes. She has no rales. She exhibits no tenderness. Abdominal: Soft. Bowel sounds are normal. She exhibits no distension and no mass. There is no tenderness. There is no rebound and no guarding. No hepatosplenomegaly. No succussion splash. Genitourinary: Rectal exam deferred. Lymphadenopathy: She has no cervical adenopathy. Neurological: She is alert and oriented to person, place, and time. No cranial nerve deficit. Skin: Skin is warm and dry. No rash noted. She is not diaphoretic. No erythema. No pallor. Psychiatric: She has a normal mood and affect. Her behavior is normal. Judgment and thought contentnormal. Assessment and Plan: Mrs Ceja is a pleasant 57 year old woman with a history significant for DM I with complications of retinopathy and neuropathy and hypothyroidism who presents for consultation of gastroparesis symptoms. Her constellation of symptoms are suggestive of gastroparesis. We discussed the etiology, pathophysiology, diagnostic tests and treatment of gastroparesis. recommend proceeding with GES and SBFT. Recommend GI nutrition consult. Will have her follow the gastroparesis diet and continue toeat smaller frequent 6-8 low fat meals. Will await results for further management. Consider Domperidone or Erythromycin. #GERD/Giron's esophagus: symptoms are not well controlled. Question role of moderate-lg hiatal hernia. Recommend increasing Nexium 40 mg qd. Consider Briones ph study on Nexium to ensure that symptoms are well controlled. Consider barium swallow to evaluate type/size of hiatal hernia. #Dysphagia: question esophageal dysmotility. We discussed the etiology, pathophysiology and treatment of esophageal dysmotility. Recommend proceeding with esophageal manometry. Await results for further management. #Gas/bloating: question gastroparesis and SIBO. The majority of the visit was spent on her most bothersome symptoms. Consider FODMAP diet and HBT to r/o SIBO. Will re-evaluate at follow up visit. #Constipation: slow colon transit. Discussed the etiology, pathophysiology and treatment of constipation. Will have her start Amitiza 8 mcg BID with food and MiraLax 17 grams before bedtime. Considercolonoscopy. I did my best to answer all of her questions. The following plan was formulated. Plan: 1. Gastric emptying scan to evaluate for gastroparesis 2. SBFT 3. Esophageal manometry to r/o esophageal dysmotility 4. Increase Nexium to 40 mg on an empty stomach 30 minutes before breakfast 5. Gastroparesis diet and copy provided 6. Recommend eating smaller more frequent 6-8 low fat meals; consider having a liquid dinner 7. Zofran 4 mg ODT TID prn 8. Tigan 300 mg TID prn 9. GI Nutrition consult and order placed 10. MiraLax 17 grams qhs 11. Amitiza 8 mcg BID with food 12. Will contact patient with results of tests 13. Instructed patient to email or call with an update in 4-6 weeks 14. Follow up 3 months Patient understands and is agreeable to the above plan. Written instructions provided. I spent a total of 58 minutes face to face with this patient; 30 minutes were spent counseling the patient in the medical problems described above. Thank you for the referral, Tamanna Nguyen APRN Section of Gastroenterology [place] [address] documented in this encounter Miscellaneous Notes * Miscellaneous - Provider, Joel - 08/14/2013 6:49 PM EDT documented in this encounter Plan of Treatment Upcoming Encounters Date Type Department Care Team (Late st Contact Info) Description 05/17/2024 2:30 PM EST Office [place] [address] Alcides Bonilla MD [facility] [place] [address] 04/06/2049 9:00 AM EST Hospital [place] [address] Harry Guerrero MD [facility] DR [place] [address] Scheduled Referrals Name Type Priority Associated Diagnoses Order Schedule Referral to Gastroenterology Outpatient Referral Routine Early satiety Epigastric abdominal pain Abdominal bloating Ordered: 07/25/2013 documented as of this encounter Results * IgA (08/25/2013 9:20 AM EDT) IgA 229 70 - 400 mg/dL [facility] Blood specimen (specimen) 08/25/2013 9:20 AM EDT 08/25/2013 9:34 AM EDT Narrative Resulting Agency Comment Spec In Lab Harry Guerrero MD CHEMISTRY ORDERABLES Performing Organization Address [facility] de Phone Number [facility] * Tissue transglutaminase, IgA (08/25/2013 9:20 AM EDT) TTG IgA Ab <4.0 <=3.9 u/ml [facility] Comment: Result Interpretation: Negative: ?<4 U/mL Weak Positive: ??4-10 U/mL Positive: ?>10 U/mL Blood specimen (specimen) 08/25/2013 9:20 AM EDT 08/25/2013 12:03 PM EDT Narrative Resulting Agency Comment Spec In Lab Harry Guerrero MD IMMUNOLOGY ORDERABLE S Performing Organization Address [facility] de Phone Number [facility] * XR Fluoro small bowel only (08/03/2013 9:52 AM EDT) Anatomical Region Laterality Modality Abdomen N/A Radiographic Michelle ging 08/03/2013 9:52 AM EDT Addenda Addendum on 08/03/2013 10:12 AM EDT Addendum Begins The below findings would be compatible with a esophageal achalasia. ?? Addendum Ends Addendum on 08/03/2013 10:12 AM EDT Addendum Begins The below findings would be compatible with a esophageal achalasia. ?? Addendum Ends Narrative 08/03/2013 10:08 AM EDT Examination SMALL BOWEL ONLY Clinical History Early satiety, post prandial fullness, N/V. r/o strictures, narrowing, ?delay transit time Comparison None Technique The patient was asked to swallow thick barium in the usual small bowel follow-through manner. Findings Preliminary energy control officer film: : ??Normal bowel gas pattern. A large hiatal hernia is noted with extensive esophageal dilatation, esophageal dysmotility, and non emptying of the esophagus. ??Mild esophageal tertiary contractions were noted. ??These findings likely account for the patient's symptoms. The stomach was grossly unremarkable, aside from the large hiatal hernia. ??No significant delay in gastric emptying. ??The duodenum is normal. ??The proximal jejunum is unremarkable. Impression Severe esophageal dilatation with non emptying of the esophagus, esophageal dysmotility with large hiatal hernia. ??These findings likely account for the patient's symptoms. Procedure Note Alcides Lechuga MD - 08/03/2013 Examination SMALL BOWEL ONLY Clinical History Early satiety, post prandial fullness, N/V. r/o strictures, narrowing,?delay transit time Comparison None Technique The patient was asked to swallow thick barium in the usual small bowel follow-through manner. Findings Preliminary energy control officer film: : Normal bowel gas pattern. A large hiatal hernia is noted with extensive esophageal dilatation,esophageal dysmotility, and non emptying of the esophagus. Mild esophageal tertiary contractions were noted. These findings likely account for the patient's symptoms. The stomach was grossly unremarkable, aside from the large hiatal hernia.No significant delay in gastric emptying. The duodenum is normal. Theproximal jejunum is unremarkable. Impression Severe esophageal dilatation with non emptying of the esophagus,esophageal dysmotility with large hiatal hernia. These findings likely account forthe patient's symptoms. Harry Guerrero MD IMG FLUORO ORDERABLE S documented in this encounter Visit Diagnoses Diagnosis Early satiety N&V (nausea and vomiting) Nausea with vomiting Epigastric abdominal pain Abdominal pain, epigastric Abdominal bloating Flatulence, eructation, and gas pain Constipation Unspecified constipation Giron's esophagus Esophageal reflux Dysphagia Dysphagia, unspecified Early satiety N&V (nausea and vomiting) Nausea with vomiting Epigastric abdominal pain Abdominal pain, epigastric Abdominal bloating Flatulence, eructation, and gas pain documented in this encounter Care Teams Bad Credit Collector Relationship Specialty Start Date End Date Nayla Miramontes MD [facility] [address] [place] [address] PCP - General 05/21/11 05/10/21 documented as of this encounter
--- OUTSIDE RECORDS SUMMARY | 2024-03-07 19:03 | XMS_ITS | Encounter Summary ---
Author Organization [facility] Address [facility] [place] [address] Care Team Providers Care Car Supervisor Name Role Phone Nayla Miramontes MD Primary Care Provider [phone] Encounter Details Date Type Department Care Team (Latest Contact Info) Description 03/07/2013 4:19 PM EST - 03/07/2013 11:59 PM [facility] [place] [address] CLINIC, Darryl Camejo MD [facility] [place] [address] Knee pain, bilateral; Knee instability Discharge Disposition: [...] mg by mouth daily. 08/25/2013 Diabetic Supplies, [employer]. MiscIndications:Jaleesa betes mellitus 1 each by Misc.(Non-Drug; Combo Route) route 6 times daily. Diagnosis: 250.91 Change infusion sets every 3 days Manually fax to [employer] Diabetes 600 each 3 05/30/2011 07/03/2014 insulin [...] needed 11/14/2013 documented as of this encounter Progress Notes * Vik Henriquez RN - 03/01/2013 1:48 PM EST VIR MRI PRE-SEDATION ASSESSMENT NOTE NAME: Roxann Ceja AGE: 57 y.o. : 1955 Female [phone] (home) No relevant phone numbers on file. PCP MULE PACKER MD Kulwinder CURRAN, Nayla Lemos MD Allergies Allergen Reactions ??? Codeine Phosphate ??? Propoxyphene N-Acetaminophen Date/Time of call: March 01, 2013/1:48 PM/ PREVIOUS MRI SCAN? No prior w/us HEIGHT: 66 in WEIGHT: 190 lb SCHEDULED SCAN: MRI knee SUBJECTIVE: If I go in feet first I may not need the sedation med. ASSESSMENT: Appropriate for oral sedation. PLAN: Lorazepam-1 mg PO or SL per protocol PRIOR SCAN DATE/S SEDATION TYPE SUCCESSFUL 03-07-13 MRI knee Ativan 1mg. PO x2 Yes PT WILL ARRIVE 1 HR. BEFORE SCHEDULED SCAN AND HAVE A ELECTRONIC SCIENCE TEACHER AVAILABLE. PT STATED TO BANDING MACHINE OPERATOR THAT THE SEDATION WAS EFFECTIVE FOR SCAN: Y N COMMENTS: This patient has been informed that they require a bobcat driver/labor to drive them home after this procedure. In the absence of a bobcat driver/labor, IR will not be able to perform this procedure and will need to reschedule. Pt verbalized understanding of these instructions during the pre-procedure education via phone. documented in this encounter Miscellaneous Notes * Miscellaneous - Provider, Scanning - 03/18/2013 1:50 PM EST * Miscellaneous - Provider, Scanning - 03/16/2013 12:44 PM EST documented in this encounter Plan of Treatment Upcoming Encounters Date Type Department Care Team (Late st Contact Info) Description 05/17/2024 2:30 PM EST Office [place] [phone] Alcides Bonilla MD [facility] [place] [address] 04/06/2049 9:00 AM EST Hospital [place] [address] Harry Guerrero MD [facility] [place] [address] documented as of this encounter Procedures Procedure Name Priority Date/Time Associated Diagnosis Comments MRI KNEE WO CONTRAST Routine 03/07/2013 6:20 PM EST Pain in joint, lower leg Other joint derangement, not elsewhere classified, lower leg documented in this encounter Results * MRI knee WO contrast (03/07/2013 6:20 PM EST) Anatomical Region Laterality Modality Knee Magnetic Resonan ce 03/07/2013 6:20 PM EST Narrative 03/08/2013 9:45 AM EST Examination MR Knee Without Terrell/RIGHT Clinical History Right knee instability with fall ? meniscal tear Comparison Radiographs from February 2013 Technique Routine MRI imaging of the right knee was performed. ?? Findings Knee joint: Trace fluid in knee joint. Subchondral cysts are present in the medial tibial plateau, series 8 image 12 and in the patella. ?? Cartilage- Diffuse cartilage loss in all 3 compartments most pronounced in the patella where the inferior rim patellar articular cartilage is denuded series 5 image 9, accompanied by multiple subchondral cysts in the lateral patellar facet. Menisci- 1. Medial meniscus- vertical peripheral tear of the posterior horn of medial meniscus. This tear can be seen on 3 sagittal images. ??The anterior horn is intact. 2. Lateral meniscus- no tear. Cruciate ligaments : 1. PCL - increased T2 signal in the mid PCL series 5 image 12 represents ligament sprain or partial tear. 2. ACL- intact Collateral ligaments : 1. MCL- distended MCL bursa series 8 image 14 is at least 3 mm in depth and 28 mm long 2. Lateral complex- intact Tendons: ? 1. Patella - slightly thickened patellar tendon suggest tendinopathy. ? 2. Rest of tendons- not interrupted. Fluid collections: Trace fluid in the popliteal cyst. Osseous structures & marrow : High-riding patella with chondromalacia, described earlier. Normal patellofemoral alignment Soft tissues: ?? Minimal prepatellar soft tissue edema ?? Impression ? 1. Patella tawnya and patellar cartilage injury in the ? 2. Osteoarthropathy with cartilage injury in all 3 compartments most pronounced in the patella lumbar min. ? 3. Vertical peripheral tear of the posterior horn of medial meniscus ? 4. PCL sprain or partial tear ? 5. Distended medial collateral ligament bursa, of uncertain importance. Procedure Note Shandra Alvarez MD - 03/08/2013 Examination MR Knee Without Terrell/RIGHT Clinical History Right knee instability with fall ? meniscal tear Comparison Radiographs from February 2013 Technique Routine MRI imaging of the right knee was performed. Findings Knee joint: Trace fluid in knee joint. Subchondral cysts are present in the medialtibial plateau, series 8 image 12 and in the patella. Cartilage- Diffuse cartilage loss in all 3 compartments most pronounced in thepatella where the inferior rim patellar articular cartilage is denuded series 5image 9, accompanied by multiple subchondral cysts in the lateral patellarfacet. Menisci- 1. Medial meniscus- vertical peripheral tear of the posterior horn ofmedial meniscus. This tear can be seen on 3 sagittal images. The anterior hornis intact. 2. Lateral meniscus- no tear. Cruciate ligaments : 1. PCL - increased T2 signal in the mid PCL series 5 image 12 represents ligament sprain or partial tear. 2. ACL- intact Collateral ligaments : 1. MCL- distended MCL bursa series 8 image 14 is at least 3 mm in depthand 28 mm long 2. Lateral complex- intact Tendons: 1. Patella - slightly thickened patellar tendon suggesttendinopathy. 2. Rest of tendons- not interrupted. Fluid collections: Trace fluid in the popliteal cyst. Osseous structures & marrow : High-riding patella with chondromalacia, described earlier. Normal patellofemoral alignment Soft tissues: Minimal prepatellar soft tissue edema Impression 1. Patella tawnya and patellar cartilage injury in the 2. Osteoarthropathy with cartilage injury in all 3 compartments most pronounced in the patella lumbar min. 3. Vertical peripheral tear of the posterior horn of medialmeniscus 4. PCL sprain or partial tear 5. Distended medial collateral ligament bursa, of uncertainimportance. Darryl Burgos MD IMG MRI ORDERABLES documented in this encounter Visit Diagnoses Diagnosis Knee pain, bilateral Pain in joint, lower leg Knee instability Other joint derangement, not elsewhere classified, lower leg documented in this encounter Administered Medications Inactive Administered Medications - up to 3 most recent administrations Medication Order MAR Action Action Date Dose Rate Site LORazepam (ATIVAN) tablet 1 mg 1 mg, Oral, EVERY 30 MIN PRN, 2 doses, Starting on Thu03/07/13 at 0000, Until Thu03/08/13 at 0223, Anxiety, Angio/IR (Day of Procedure), Routine Given 03/07/2013 5:05 PM EST 2 mg documented in this encounter Care Teams Car Supervisor Relationship Specialty Start Date End Date Nayla Miramontes MD [facility] [address] [place] [address] PCP - General 05/21/11 05/10/21 documented as of this encounter
--- OUTSIDE RECORDS SUMMARY | 2024-03-07 19:03 | XMS_ITS | Encounter Summary ---
Author Organization [facility] Address [facility] [place] [address] Care Team Providers Care Manager Fund Name Role Phone Nayla Miramontes MD Primary Care Provider [phone] Reason for Visit * Reason Comments Vitreous Hemorrhage Dr. Hewitt sent pat ient to Dr. Young for evaluation of vitrectomy, OS Encounter Details Date Type Department Care Team (Late st Contact Info) Description 05/10/2013 3:00 PM EST [place] [address] Dany Young MD [facility] [place] [address] Proliferative diabetic retinopathy of both eyes, type 1, without macular edema; Nuclear sclerosis, unspecified laterality; Psoriatic arthritis.currently on Hydroxychloroquine. No signs of hydroxychloroquine retinopathy. Recommend close followup. Discharge Disposition: Home Social History Tobacco Use [...] Progress Notes * Dany Young MD - 05/09/2013 12:17 PM EST 1. Proliferative diabetic retinopathy of both eyes, type 1, without macular edema 2. Nuclear sclerosis, unspecified laterality 3. Psoriatic arthritis.currently on Hydroxychloroquine. No signs of hydroxychloroquine retinopathy.Recommend close followup. Hemorrhage worse OS and nonclearing B Scan . No RD Vitrectomy endolaser OS Consent signed CBC Dany Garcia MD Physician 03/09/2012 10:54 AM Signed Patient presents for followup evaluation of her proliferative diabetic retinopathy and vitreous hemorrhage in the left eye. She now presents with an acute hemorrhage in the right eye and the left eyeis now clearing. Examination reveals a mild to moderate vitreous hemorrhage in the right eye with a preretinal hemorrhage but no traction organization or macular edema is ascertained. An excellent pattern of scatter laser photocoagulation is noted. The left eye reveals only a mild vitreous hemorrhage and there are no signs of traction macular edema and hemorrhage appears to be clearing nicely. No signs of hydroxychloroquine retinopathy I recommended observation the patient will return in 4 weeks. I reviewed the indications for surgery including bilateral involvement with impairment, macular edema which needs to be treated in a timely manner, tractional detachment or multiple recurrences with functional impairment. At this point, the benefits of observation far outweigh the risks of surgery. Patient will return in about 4-5 weeks' time. Elevate head of bed. Safety issues addressed. Call if severe bilateral involvement documented in this encounter Plan of Treatment Upcoming Encounters Date Type Department Care Team (Late st Contact Info) Description 05/17/2024 2:30 PM EST Office [place] [address] Alcides Bonilla MD [facility] [place] [address] 04/06/2049 9:00 AM EST Hospital Encounter [place] [address] Harry Guerrero MD [facility] [place] [address] documented as of this encounter Procedures Procedure Name Priority Date/Time Associated Diagnosis Comments VITRECTOMY, PARS PLANA, LASER Routine 05/10/2013 4:21 PM EST Proliferative Diabetic Retinopathy Of Both Eyes, Type 1, Without Macular Edema Nuclear sclerosis, unspecified laterality Psoriatic arthritis.currently on Hydroxychloroquine. No signs of hydroxychloroquine retinopathy. Recommend close followup. documented in this encounter Visit Diagnoses Diagnosis Proliferative diabetic retinopathy of both eyes, type 1, without macular edema Nuclear sclerosis, unspecified laterality Psoriatic arthritis.currently on Hydroxychloroquine. No signs of hydroxychloroquine retinopathy. Recommend close followup. Psoriatic arthropathy documented in this encounter Care Teams Manager Fund Relationship Specialty Start Date End Date Nayla Miramontes MD [address] [place] [address] PCP - General 05/21/11 05/10/21 documented as of this encounter
--- OUTSIDE RECORDS SUMMARY | 2024-03-07 19:03 | XMS_ITS | Encounter Summary ---
Author Organization [facility] Address [facility] [place] [address] Care Team Providers Care Assistant Women'S Rowing Coach Name Role Phone Nayla Miramontes MD Primary Care Provider [phone] Encounter Details Date Type Department Care Team (Latest Contact Info) Description 08/03/2013 9:02 AM EDT - 08/03/2013 11:59 PM EDT Hospital Encounter XRay at [address] [place] [address] CLINIC, Harry Chua MD [facility] [place] [address] Early satiety; N&V (nausea and vomiting); Epigastric abdominal pain; Abdominal bloating Discharge Disposition: Home Social History Tobacco Use [...] CELECOXIB (CELEBREX ORAL) Take by mouth. 05/14/2016 POLYETHYLENE GLYCOL 3350 (MIRALAX ORAL) Take by mouth. 2013 esomeprazole (NEXIUM) 40 mg capsuleIndications:Ba rrett's esophagus,Esophageal reflux Take 1 capsule by mouth every morning. 30 capsule 6 07/25/2013 08/25/2013 ondansetron (ZOFRAN-ODT) 4 mg oral disintegrating tabletIndications:N&V (nausea and vomiting) Take 1 tablet by mouth every 8 hours as needed for Nausea. 20 tablet 6 07/25/2013 10/25/2013 trimethobenzamide (TIGAN) 300 mg capsuleIndications:N& V (nausea and vomiting) Take 1 capsule by mouth 3 times daily as needed. 90 capsule 6 07/25/2013 10/25/2013 lubiprostone (AMITIZA) 8 mcg capsuleIndications:Co nstipation Take 1 capsule by mouth 2 times daily (with meals). 60 capsule 6 07/25/2013 08/15/2013 cyclobenzaprine (FLEXERIL) 5 mg tablet Take 5 mg in the morning and 10 mg at bedtime. 270 tablet 4 07/25/2013 07/25/2015 gabapentin (NEURONTIN) 300 mg capsule Take 2 capsules by mouth nightly. 180 capsule 3 07/25/2013 10/25/2013 adalimumab (HUMIRA) 40 mg/0.8 mL injection Inject 0.8 mLs subcutaneously every 14 days. 3.2 mL 4 07/25/2013 06/19/2014 Diabetic Supplies, Miscellan. MiscIndications:Type I (juvenile type) diabetes mellitus without mention of complication, not stated as uncontrolled Faxed pump and supply order to [employer] at [phone]. Dx Code: 250.01 100 each 12 05/03/2013 08/08/2013 celecoxib (CELEBREX) 100 mg capsule Take 1 capsule by mouth 2 times daily. 120 capsule 3 02/23/2013 04/30/2015 levothyroxine (SYNTHROID) 150 mcg tablet Take 150 mcg by mouth. 5 times a week. 11/08/2015 levothyroxine (SYNTHROID) 75 mcg tablet Take 75 mcg by mouth. 2 x's a week 06/19/2014 tolterodine (DETROL) 2 mg tablet Take 2 mg by mouth 2 times daily. 05/16/2015 ferrous sulfate 324 mg (65 mg iron) TbEC Take 324 mg by mouth daily. 08/25/2013 Diabetic Supplies, Miscellan. MiscIndications:Diabe daniel mellitus 1 each by Misc.(Non-Drug; Combo Route) route 6 times daily. Diagnosis: 250.91 Change infusion sets every 3 days Manually fax to [employer] [facility] 600 each 3 05/30/2011 07/03/2014 insulin glargine (LANTUS) 100 unit/mL vial injectionIndications: type 1 diabetes mellitus Inject 18 Units subcutaneously daily. 1 vial = 10ml = 1,000 units Indications: Type 1 Diabetes Mellitus 10 mL 5 04/29/2011 01/23/2017 lisinopril (PRINIVIL;ZESTRIL) 20 mg tablet Take 0.5 [...] 2:30 PM EST Office Visit [place] [address] Alcides Bonilla MD [facility] [place] [address] 04/06/2049 9:00 AM EST Hospital Encounter G[place] [address] Harry Guerrero MD [facility] [place] [address] documented as of this encounter Procedures Procedure Name Priority Date/Time Associated Diagnosis Comments XR FLUORO SMALL BOWEL ONLY Routine 08/03/2013 9:52 AM EDT Early satiety N&V (nausea and vomiting) Epigastric abdominal pain Abdominal bloating documented in this encounter Results * XR Fluoro small bowel only (08/03/2013 [...] usual small bowel follow-through manner. Findings Preliminary director of ancillary services film: : ??Normal bowel gas pattern. A [...] usual small bowel follow-through manner. Findings Preliminary director of ancillary services film: : Normal bowel gas pattern. A [...] pain documented in this encounter Care Teams Assistant Women'S Rowing Coach Relationship Specialty Start Date End Date Nayla Miramontes MD [facility] [address] [facility] [address] [place] [address] PCP - General 05/21/11 05/10/21 documented as of this encounter
--- OUTSIDE RECORDS SUMMARY | 2024-03-07 19:03 | XMS_ITS | Encounter Summary ---
Author Organization [facility] [place] [address] Care Team Providers Care Oracle Scm Consultant Name Role Phone Nayla Miramontes MD Primary Care Provider [phone] Reason for Visit * Reason Comments Follow-up Encounter Details Date Type Department Care Team ([facility] st Contact Info) Description 07/25/2013 2:20 PM EDT [place] [address] Darryl Burgos MD [facility] [place] [address] Psoriatic arthritis (Primary Dx); Memory deficit; Cognitive deficits Discharge Disposition: Home [...] Sign Reading Time Taken Comments Blood Pressure 123/65 07/25/2013 2:30 PM EDT Pulse 98 07/25/2013 2:30 PM EDT Temperature 36.5 ??C (97.7 ??F) 07/25/2013 2:30 PM ED T Respiratory Rate - - Oxygen Saturation 100% 07/25/2013 2:30 PM EDT Inhaled Oxygen Concentration - - Weight 88 kg (194 lb) 07/25/2013 2:30 PM EDT Height 167.6 cm (5' 6) 07/25/2013 2:30 PM EDT Body Mass Index 31.31 07/25/2013 2:30 PM EDT documented in this encounter Patient Instructions * Patient Instructions* Darryl Burgos MD - 07/25/2013 2:59 PM EDT 1) Start every other week Humira, 40 mg. 2) Increase Flexeril dose to 5 mg in the morning and 10 mg at bedtime. 3) Increase bedtime neurontin dose to 600 mg. 4) Get MRI of the brain. 5) Return to follow up in two months. documented in this encounter Progress Notes * Darryl Burgos MD - 07/25/2013 2:36 PM EDT REASON FOR VISIT: Follow up for psoriatic arthritis and psoriasis. INTERVAL HISTORY: The pt was a 57-year-old female, who returned for a follow up of psoriatic arthritis and psoriasis. The pt noted that since her last visit on May 31, 2013, she continued to be on Celebrex for pain control. She felt that her overall joint pain was under borderline control while on Celebrex. Overall, the pain was worst in her knees. She also complained of intermittent bilateral knee buckling, resulting in mechanical falls. She was currently on bedtime Flexeril, 10 mg for symptomatic control of her muscle spasms. She wished to increase the dose of Flexeril to daytime dosing as well. She was also on bedtime Neurontin, 400 mg for symptomatic pain control. She felt that neurontin provided some pain relief. Otherwise, she had no fever, chest pain, dyspnea, dysuria, headache, easy bruising, rash, or polydipsia. She did complain of persistent nausea and worsening poor memory. Neuropsychological studies performed on July 13, 2013 showed deficits in her memory, attention, executive function, and motor skills, suggestive of frontotemporal and subcortical systems dysfunction. PAST MEDICAL HISTORY: Psoriatic arthritis Psoriasis Diabetes mellitus I, on insulin pump, poorly controlled (Hba1c = 8.5) Diabetic ketoacidosis Diabetic gastroparesis Proliferative diabetic retinopathy Vitreous hemorrhage of both eyes Hypothyroidism GERD Hypertension Hyperlipidemia Asthma Severe iron [...] her family. 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 She was currently applying for disability. FAMILY HISTORY: ?Mother - Hypertension, hyperlipidemia, hypothyroidism; of cardiac aneurysm at the age of 48. Father - Stroke x two; of a brain tumor at the age of 82. ? PHYSICAL EXAMINATION: Vitals 07/25/2013 SYSTOLIC 119 DIASTOLIC 58 PULSE 90 RESPIRATIONS 18 Height (Croatian) 5' 6 Height (Metric) 167.6 cm Weight (Croatian) 194 lbs Weight (Metric) 87.998 kg BODY MASS INDEX 31.33 kg/m2 Pulse Oximetry 100 General - Alert, co-operative, no apparent distress, [...] control while on Celebrex alone. The pt will start every other week [...] need adalimumab for immunosuppression. Meanwhile, shewill continue increase the dose of Flexeril for additional symptomatic control. 5) Frontotemporal and subcortical systems dysfunction. The pt was noted to have severe deficits in her memory, attention, executive function, and motor skills, suggestive of frontotemporal and subcortical systems dysfunction. The pt was recommended to undergo imaging studies of the brain for further evaluation. She will also be considered for a Neurology consult pending on the imaging studies of the brain. RECOMMENDATIONS: 1) Start every other week Humira, 40 mg. 2) Increase Flexeril dose to 5 mg in the morning and 10 mg at bedtime. 3) Increase bedtime neurontin dose to 600 mg. 4) Get MRI of the brain. 5) Return to follow up in two months. ? Darryl Burgos MD, PhD documented in this encounter Plan of Treatment Upcoming Encounters Date Type Department Care Team (Late st Contact Info) Description 05/17/2024 2:30 PM EST Office [place] [address] Alcides Bonilla MD [facility] [place] [address] 04/06/2049 9:00 AM EST Hospital En[place] [address] Harry Guerrero MD [facility] [place] [address] documented as of this encounter Visit Diagnoses Diagnosis Psoriatic arthritis- Primary Psoriatic arthropathy Memory deficit Memory loss Cognitive deficits Unspecified persistent mental disorders due to conditions classified elsewhere documented in this encounter Care Teams Oracle Scm Consultant Relationship Specialty Start Date End Date Nayla Miramontes MD [address] [place] [address] PCP - General 05/21/11 05/10/21 documented as of this encounter
--- OUTSIDE RECORDS SUMMARY | 2024-03-07 19:03 | XMS_ITS | Encounter Summary ---
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 [address] [place] [address] [facility] [address] [address] [place] [address] Referral ID Status Reason Start Date Expiration Date V isits Requested Visits Authorized [id number] Closed Consult, Test & Treat 06/20/2013 12/17/2013 1 1 Encounter Details Date Type Department Care Team (Late st Contact Info) Description 06/20/2013 [place] [address] Roseanne Kay [facility] 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
--- OUTSIDE RECORDS SUMMARY | 2024-03-07 19:03 | XMS_ITS | Encounter Summary ---
Author Organization Formerly [facility] [place] [address] Care Team Providers Care Smoke Jumper Name Role Phone Nayla Miramontes MD Primary Care Provider [phone] Encounter Details Date Type Department Care Team (Late st Contact Info) Description 05/16/2013 8:08 AM EST - 05/16/2013 12:48 PM EST Hospital [place] [address] Orion Nina MD [facility] [place] [address] Discharge Disposition: Home Social History Tobacco Use [...] Sign Reading Time Taken Comments Blood Pressure 130/55 05/16/2013 11:58 AM EST Pulse 77 05/16/2013 11:58 AM EST Temperature 36.4 ??C (97.5 ??F) 05/16/2013 10:[address] Respiratory Rate 16 05/16/2013 11:58 AM EST Oxygen Saturation 95% 05/16/2013 12:04 PM EST Inhaled Oxygen Concentration - - Weight 88.5 kg (195 lb) 05/16/2013 8:44 AM EST Height 167.6 cm (5' 6) 05/16/2013 8:44 AM EST Body Mass Index 31.47 05/16/2013 8:44 AM EST documented in this encounter Discharge Instructions * Discharge Instructions* Harika García RN - 05/16/2013 11:00 AM EST POST ANESTHESIA INSTRUCTIONS Go home, rest, use caution on stairs. Change positions slowly. Do not smoke if you are alone. Diet light to regular as tolerated today. If nausea occurs start with clear liquids and progress slowly. No driving, operating machinery, alcoholic beverages and no important decisions for 24 hours. Monitor IV site for signs and symptoms of infection: increasing redness, swelling, foul drainage, if occurs contact M.D. Patients who have had endotrachial tubes (this tube, used by anesthesia department, is passed down your throat after you are asleep, to ensure safe air passage during your operation). A sore throat is normal due to the tube. Cold liquids or soothing lozenges will help ease the discomfort. The generalized muscle aches are due to the medication given to you just before the tube is inserted. As the medication wears off, you may develop muscle soreness, which usually goes away in 12-24 hours. * Patient Instructions* Yesica Person PA - 05/16/2013 10:36 AM EST Please keep patch and shield on operated eye until follow up appointment tomorrow. Ice packs over patch and shield as needed for pain. Tylenol 500 mg every four hours as needed for pain. Please bring eye kit and all eye drops to tomorrow's appointment. Call [phone] for all questions concerns. documented in this encounter Medications at Time of Discharge Medication Sig Dispensed Refills Start Date End Date MULTI-VITAMIN ORAL Take 1 tablet by mouth daily. Reported on 05/26/2016 CELECOXIB (CELEBREX ORAL) Take by mouth. 05/14/2016 Diabetic Supplies, [employer]. MiscIndications:Type I (juvenile type) diabetes mellitus without mention of complication, not stated as uncontrolled Faxed pump and supply order to [employer] at [phone]. Dx Code: 250.01 100 each 12 05/03/2013 08/08/2013 esomeprazole (NEXIUM) 20 mg capsule Take 20 [...] mg by mouth daily. 08/25/2013 Diabetic Supplies, [employer]. MiscIndications:Diab etes mellitus 1 each by Misc.(Non-Drug; Combo Route) route 6 times daily. Diagnosis: 250.91 Change infusion sets every 3 days Manually fax to [employer] [facility] 600 each 3 05/30/2011 07/03/2014 insulin glargine (LANTUS) 100 unit/mL vial injectionIndications [...] needed 11/14/2013 documented as of this encounter H&P Notes * Yesica Person PA - 05/16/2013 8:50 AM EST No change from previous H+P. Source Note - Yesica Person PA - 05/16/2013 8:49 AM EST Patient Name: Roxann Ceja Patient Age: 57 y.o. Birthdate: 1955 Admit date: 05/16/2013 Attending Physician: Orion Nina, * No current facility-administered medications on file prior to encounter. Current Outpatient Prescriptions on File Prior to Encounter Medication Sig Dispense Refill ??? [place] [facility] [facility] [place] to [employer] at [phone]. DxCode: 250.01 100 each 12 ??? esomeprazole (NEXIUM) 20 mg capsule Take 20 mg by mouth every morning (before breakfast). ??? celecoxib (CELEBREX) 100 mg capsule Take 1 capsule by mouth 2 times daily. 120 capsule 3 ??? cyclobenzaprine (FLEXERIL) 5 mg tablet Take 2 tablets by mouth nightly. 180 tablet 4 ??? levothyroxine (SYNTHROID) 150 mcg [...] sets every 3 days Manually fax to [employer] [facility] 600 each 3 ??? insulin glargine (LANTUS) 100 unit/mL vial injection Inject 18 Units subcutaneously daily. 1 vial = 10ml = 1,000 units Indications: Type 1 Diabetes Mellitus 10 mL 5 ??? pramlintide (SYMLINPEN 60) 1,500 mcg/1.5 mL injection Inject 60 mcg subcutaneously 3 times daily (before meals). 5.4 mL 3 ??? lisinopril (PRINIVIL;ZESTRIL) 20 mg tablet Take [...] daily. Allergies Allergen Reactions ??? Codeine Phosphate ??? Propoxyphene N-Acetaminophen Past Medical History Diagnosis Date ??? Diabetes mellitus ??? Thyroid disease ??? Skin disease ??? GERD (gastroesophageal reflux disease) ??? Hyperlipidemia ??? Hypertension ??? Anxiety ??? Asthma ??? Cortical cataract 05/05/2011 ??? PDR (proliferative diabetic retinopathy) 05/25/2011 Past Surgical History Procedure Date ??? Upper gi endoscopy, exam 04/25/2011 UPPER GI ENDOSCOPY performed by MARIA DEL CARMEN BOB at [facility] ENDOSCOPY ??? Upper gi endoscopy, biopsy 04/27/2012 UPPER GASTROINTESTINAL ENDOSCOPY,WITH BIOPSY SINGLE OR MULTIPLE performed by Luis Bucio MD [facility] ENDOSCOPY ??? Retinal laser surgery Review of Systems Constitutional: Negative for fever and chills. HENT: Negative for congestion. Eyes: Positive for visual disturbance. Negative for pain and discharge. Respiratory: Negative for shortness of breath and wheezing. Cardiovascular: Negative for chest pain and palpitations. Gastrointestinal: Negative for abdominal pain, diarrhea and constipation. Musculoskeletal: Negative for myalgias and joint swelling. Skin: Negative for rash. Neurological: Negative for dizziness and headaches. Hematological: Negative for adenopathy. Physical Exam Constitutional: She is oriented to person, place, and time. She appears well- developed and well-nourished. Eyes: EOM are normal. Pupils are equal, round, and reactive to light. Neck: Normal range of motion. Neck supple. Cardiovascular: Normal rate, regular rhythm and normal heart sounds. Exam reveals no gallop and no friction rub. No murmur heard. Pulmonary/Chest: Breath sounds normal. She has no wheezes. She has no rales. Abdominal: Soft. Bowel sounds are normal. She exhibits no mass. No tenderness. Musculoskeletal: Normal range of motion. Lymphadenopathy: She has no cervical adenopathy. Neurological: She is alert and oriented to person, place, and time. No cranial nerve deficit. Skin: Skin is warm and dry. No rash noted. Psychiatric: She has a normal mood and affect. Her behavior is normal. Judgment and thought contentnormal. 57 year old with multiple medical problems stable for surgery. * Yesica Person PA - 05/16/2013 8:49 AM EST Patient Name: Roxann Ceja Patient Age: 57 y.o. Birthdate: 1955 Admit date: 05/16/2013 Attending Physician: Orion Nina, * No current facility-administered medications on file prior to encounter. Current Outpatient Prescriptions on File Prior to Encounter Medication Sig Dispense Refill ??? Di[place] Supplies, [facility] [facility] [place] supply order to [employer] at [phone]. DxCode: 250.01 100 each 12 ??? esomeprazole (NEXIUM) 20 mg capsule Take 20 mg by mouth every morning (before breakfast). ??? celecoxib (CELEBREX) 100 mg capsule Take 1 capsule by mouth 2 times daily. 120 capsule 3 ??? cyclobenzaprine (FLEXERIL) 5 mg tablet Take 2 tablets by mouth nightly. 180 tablet 4 ??? levothyroxine (SYNTHROID) 150 mcg [...] sets every 3 days Manually fax to [employer] [facility] 600 each 3 ??? insulin glargine (LANTUS) 100 unit/mL vial injection Inject 18 Units subcutaneously daily. 1 vial = 10ml = 1,000 units Indications: Type 1 Diabetes Mellitus 10 mL 5 ??? pramlintide (SYMLINPEN 60) 1,500 mcg/1.5 mL injection Inject 60 mcg subcutaneously 3 times daily (before meals). 5.4 mL 3 ??? lisinopril (PRINIVIL;ZESTRIL) 20 mg tablet Take [...] daily. Allergies Allergen Reactions ??? Codeine Phosphate ??? Propoxyphene N-Acetaminophen Past Medical History Diagnosis Date ??? Diabetes mellitus ??? Thyroid disease ??? Skin disease ??? GERD (gastroesophageal reflux disease) ??? Hyperlipidemia ??? Hypertension ??? Anxiety ??? Asthma ??? Cortical cataract 05/05/2011 ??? PDR (proliferative diabetic retinopathy) 05/25/2011 Past Surgical History Procedure Date ??? Upper gi endoscopy, exam 04/25/2011 UPPER GI ENDOSCOPY performed by MARIA DEL CARMEN BOB at [facility] ENDOSCOPY ??? Upper gi endoscopy, biopsy 04/27/2012 UPPER GASTROINTESTINAL ENDOSCOPY,WITH BIOPSY SINGLE OR MULTIPLE performed by Luis Bucio MD [facility] ENDOSCOPY ??? Retinal laser surgery Review of Systems Constitutional: Negative for fever and chills. HENT: Negative for congestion. Eyes: Positive for visual disturbance. Negative for pain and discharge. Respiratory: Negative for shortness of breath and wheezing. Cardiovascular: Negative for chest pain and palpitations. Gastrointestinal: Negative for abdominal pain, diarrhea and constipation. Musculoskeletal: Negative for myalgias and joint swelling. Skin: Negative for rash. Neurological: Negative for dizziness and headaches. Hematological: Negative for adenopathy. Physical Exam Constitutional: She is oriented to person, place, and time. She appears well- developed and well-nourished. Eyes: EOM are normal. Pupils are equal, round, and reactive to light. Neck: Normal range of motion. Neck supple. Cardiovascular: Normal rate, regular rhythm and normal heart sounds. Exam reveals no gallop and no friction rub. No murmur heard. Pulmonary/Chest: Breath sounds normal. She has no wheezes. She has no rales. Abdominal: Soft. Bowel sounds are normal. She exhibits no mass. No tenderness. Musculoskeletal: Normal range of motion. Lymphadenopathy: She has no cervical adenopathy. Neurological: She is alert and oriented to person, place, and time. No cranial nerve deficit. Skin: Skin is warm and dry. No rash noted. Psychiatric: She has a normal mood and affect. Her behavior is normal. Judgment and thought contentnormal. 57 year old with multiple medical problems stable for surgery. documented in this encounter Miscellaneous Notes * Miscellaneous - Provider, Scanning - 05/16/2013 5:27 PM EST * Miscellaneous - Provider, Scanning - 05/16/2013 2:13 PM EST * Op Note - Orion Nina MD - 05/16/2013 10:36 AM EST [facility] [place] Operative Note Patient Name: Roxann Ceja : [id number] MR#: [id number] Case Date: 05/16/2013 Surgeon: Surgeon(s) and Role: * Orion Nina MD - Primary * Yesica Person PA - Resident-Yarn Dumper Preoperative diagnosis: diabetic vitreous hemorrhage left Postoperative diagnosis: diabetic vitreous hemorrhage left Procedure(s): VITRECTOMY, PARS PLANA, LASER PREOPERATIVE DIAGNOSIS: Diabetic nonclearing vitreous hemorrhage, left eye. POSTOPERATIVE DIAGNOSIS: Diabetic a nonclearing vitreous hemorrhage, left eye. SURGEON: Orion Nina MD. ANESTHESIA: General. COMPLICATIONS: None. OPERATIONS PERFORMED: 1. Pars plana vitrectomy. 2. Endo and indirect laser photocoagulation, left eye. OPERATIVE INDICATIONS: The patient I believe has undergone extensive panretinal laser photocoagulation in the past, but manifested severe vitreous hemorrhage, which is nonclearing. After a careful review of all the risks, benefits, precautions, alternatives, indications, she has given informed consent for surgery understanding the risks of detachment, endophthalmitis, loss of the eye, morbidity, mortality, glaucoma, and any and all rare and unforeseen complications. She has given informed consent both in the clinic setting as well as preoperatively here today. OPERATIVE TECHNIQUE: The patient was ushered into the operating room. General anesthesia was safely established. A time-out was performed collectively by the Surgical and Anesthesia teams. The left eye was addressed, and a divided three-port pars plana vitrectomy setup was accomplished after the patient was prepped and draped in the usual sterile manner including Betadine solution in a sterile field technique. A time-out was performed collectively by the Surgical and Anesthesia teams for side verification of the left eye. The divided three-port pars plana vitrectomy allowed for complete removal of the blood and vitreous, scleral indentation allowed for removal of peripheral vitreous and blood, but no tractional membranes were seen. Two principal centers of neovascularization along the inferotemporal arcade and superotemporal arcade were dissected free of any vitreous. The macular architecture looked fairly good. No obvious cyst or edema were identified. The endolaser was then used to treat the small areas of neovascularization, which were the principal cause of bleeding. Endolaser was applied from the arcades to areas not previously having been treated. The indirect laser was then applied to the anterior periphery and to the ora deisy where possible. No dialysis, tears, or complicating pathology was ascertained. The eye was then closed with interrupted 7-0 Vicryl suture and the pressure titrated between 8 and 10 mm. Conjunctiva and Tenon's were reapposed. The supplemental sub-Tenon's anesthetic as was delivered, followed by subconjunctival injections of Ancef and dexamethasone. Cosopt was placed, followed by Maxitrol ointment, and placement of sterile eye patch and shield. The patient was now being extubated and being discharged to the recovery room. She is to return here postoperative day #1. She is to call immediately with any decrease in vision, pain, or other related symptoms. She is to call for any nausea, vomiting, or other concerns. Airway safety and venous thrombosis preventive measures will be reviewed again. Total operating time exactly, incision to incision, 35 minutes. General Estimated Blood Loss: 0 Drains: 0 Disposition: awakened from anesthesia, extubated and taken to the recovery room in a stable condition, having suffered no apparent untoward event. Condition: doing well without problems (Please see the Surgical Encounter Summary for any Implant and Specimen details pertinent to this patient.) * Brief Op Note - Orion Nina MD - 05/16/2013 10:36 AM EST Brief Operative Note Patient Name: Roxann Ceja : [id number] MR#: [id number] Case Date: 05/16/2013 Surgeon: Surgeon(s) and Role: * Orion Nina MD - Primary * Yesica Person PA - Resident-Yarn Dumper Preoperative diagnosis: diabetic vitreous hemorrhage left Postoperative diagnosis: diabetic vitreous hemorrhage left Procedure(s): VITRECTOMY, PARS PLANA, LASER Anesthesia: General Findings: VH Complications: 0 Fluids: LR Estimated Blood Loss: 0 Drains: 0 Disposition: awakened from anesthesia, extubated and taken to the recovery room in a stable condition, having suffered no apparent untoward event. Condition: doing well without problems (Please see the Surgical Encounter Summary for any Implant and Specimen details pertinent to this patient.) * OR Attestation - Orion Nina MD - 05/16/2013 10:35 AM EST Attestation: Case Date: 05/16/2013 I performed this procedure without the involvement of a resident. ORION NINA MD 05/16/2013 documented in this encounter Plan of Treatment Upcoming Encounters Date Type Department Care Team (Late st Contact Info) Description 05/17/2024 2:30 PM EST Office [place] [phone] Alcides Bonilla MD [facility] [place] [address] 04/06/2049 9:00 AM EST Hospital Encounter [place] [phone] Harry Guerrero MD [facility] DR [place]STROENTER[place] [address] documented as of this encounter Procedures Procedure Name Priority Date/Time Associated Diagnosis Comments POCT GLUCOSE Routine 05/16/2013 10:52 AM EST POCT GLUCOSE Routine 05/16/2013 10:15 AM EST POCT GLUCOSE Routine 05/16/2013 9:53 AM EST VITRECTOMY, PARS PLANA, LASER (WRVU 13.2) Yes 05/16/2013 9:20 AM EST Psoriatic arthritis Nuclear sclerosis, unspecified laterality Proliferative diabetic retinopathy of both eyes, type 1, without macular edema POCT GLUCOSE Routine 05/16/2013 8:45 AM EST CREATININE Routine 05/16/2013 8:30 AM EST BUN Routine 05/16/2013 8:30 AM EST documented in this encounter Results * POCT Glucose (05/16/2013 10:52 AM EST) Glucose, POC 150 60 - 199 mg/dL [facility] Comment: Supplemental ranges: <110 mg/dL before meals <200 mg/dL all other times of the day Blood specimen (specimen) 05/16/2013 10:52 AM EST 05/16/2013 10:52 AM EST Orion Nina MD POINT OF CARE T EST ORDERABLES Performing Organization Address [facility] Number [facility] * POCT Glucose (05/16/2013 10:15 AM EST) Glucose, POC 142 60 - 199 mg/dL [facility] Comment: Supplemental ranges: <110 mg/dL before meals <200 mg/dL all other times of the day Blood specimen (specimen) 05/16/2013 10:15 AM EST 05/16/2013 10:15 AM EST Orion Nina MD POINT OF CARE T EST ORDERABLES Performing Organization Address [facility] Number [facility] * POCT Glucose (05/16/2013 9:53 AM EST) Glucose, POC 119 60 - 199 mg/dL [facility] Comment: Supplemental ranges: <110 mg/dL before meals <200 mg/dL all other times of the day Blood specimen (specimen) 05/16/2013 9:53 AM EST 05/16/2013 9:53 AM EST Orion Nina MD POINT OF CARE T EST ORDERABLES Performing Organization Address [facility] Number [facility] * POCT Glucose (05/16/2013 8:45 AM EST) Glucose, POC 97 60 - 199 mg/dL [facility] Comment: Supplemental ranges: <110 mg/dL before meals <200 mg/dL all other times of the day Blood specimen (specimen) 05/16/2013 8:45 AM EST 05/16/2013 8:45 AM EST Orion Nina MD POINT OF CARE T EST ORDERABLES Performing Organization Address [facility] Phone Number JOHN DE LEON * (ABNORMAL) Creatinine (05/16/2013 8:30 AM EST) Creatinine 0.97 0.70 - 1.20 mg/dL [facility] Comment: Please note that the pediatric reference intervals supplied above were not validated at [facility]. Results from pediatric patients should be interpreted in conjunction to the patient's age, height and muscle mass. Est Glomerular Filtration Rate 59(L) >=60 [facility] Comment: This estimated GFR (eGFR) value was [...] internet browser. http://www.nkdep.nih.gov/lab-evaluation.shtml http://www.kidney.org/professionals/ Blood specimen (specimen) 05/16/2013 8:30 AM EST 05/16/2013 8:57 AM EST Narrative Resulting Agency Comment Spec In Lab Roxann Borja MD CHEMISTRY ORDERABLES Performing Organization Address [facility] Phone Number JOHN DE LEON * BUN (05/16/2013 8:30 AM EST) Blood Urea Nitrogen 17 8 - 18 mg/dL [facility] Blood specimen (specimen) 05/16/2013 8:30 AM EST 05/16/2013 8:57 AM EST Narrative Resulting Agency Comment Spec In Lab Roxann Borja MD CHEMISTRY ORDERABLES Performing Organization Address [facility] Phone Number JOHN DE LEON documented in this encounter Visit Diagnoses Not on filedocumented in this encounter Administered Medications Inactive Administered Medications - up to 3 most recent administrations Medication Order MAR Action Action Date Dose Rate Site acetaminophen (TYLENOL) tablet 650 mg 650 mg, Oral, EVERY 4 HOURS PRN, Starting on Thu05/16/13 at 1036, Until Thu05/16/13 at 1511, Pain, for MILD pain, Do not exceed 4,000 mg in 24 hours, Routine Given 05/16/2013 11:50 AM EST 650 mg atropine 1 % ophthalmic solution 1 drop 1 drop, Left Eye, EVERY 5 MIN, 3 doses, First dose on Thu05/16/13 at 0915, Last dose on Thu05/16/13 at 0925, Day of Surgery (Day of Procedure), Routine Given 05/16/2013 9:14 AM EST 1 drop Given 05/16/2013 9:08 AM EST 1 drop Given 05/16/2013 8:59 AM EST 1 drop fentaNYL 50mcg/mL injection 25-50 mcg, Intravenous, EVERY 5 MIN PRN, Starting on Thu05/16/13 at 1114, Until Thu05/16/13 at 1247, Pain, for breakthrough pain, Hold for respiratory rate less than 10 per minute. Maximum dose: 250 mcg over one hour., PACU Recovery, Routine Given 05/16/2013 11:18 AM EST 25 mcg lactated ringers infusion 1,000 mL 1,000 mL, at 100 mL/hr, Intravenous, CONTINUOUS, Starting on Thu05/16/13 at 0915, Until Thu05/16/13 at 1247, Day of Surgery (Day of Procedure) New Bag 05/16/2013 9:14 AM EST 1,000 mLs 100 mL/hr moxifloxacin (VIGAMOX) 0.5 % ophthalmic solution 1 drop 1 drop, Left Eye, EVERY 5 MIN, 3 doses, First dose on Thu05/16/13 at 0915, Last dose on Thu05/16/13 at 0925, Day of Surgery (Day of Procedure), Routine Given 05/16/2013 9:14 AM EST 1 drop Given 05/16/2013 9:08 AM EST 1 drop Given 05/16/2013 8:59 AM EST 1 drop PHENYLephrine (MYDFRIN) 2.5 % ophthalmic solution 1 drop 1 drop, Left Eye, EVERY 5 MIN, 3 doses, First dose on Thu05/16/13 at 0915, Last dose on Thu05/16/13 at 0925, Day of Surgery (Day of Procedure), Routine Given 05/16/2013 9:14 AM EST 1 drop Given 05/16/2013 9:08 AM EST 1 drop Given 05/16/2013 8:58 AM EST 1 drop prednisoLONE acetate (PRED FORTE) 1 % ophthalmic suspension 1 drop 1 drop, Left Eye, ONCE, 1 dose, On Thu05/16/13 at 0915, Day of Surgery (Day of Procedure), Routine Given 05/16/2013 8:58 AM EST 1 drop documented in this encounter Active and Recently Administered Medications Times are shown in EST. Scheduled Medication Order 05/14/2013 05/15/2013 05/16/2013 atropine 1 % ophthalmic solution 1 drop (COMPLETED) 1 drop, Left Eye, EVERY 5 MIN, 3 doses, First dose on Thu05/16/13 at 0915, Last dose on Thu05/16/13 at 0925, Day of Surgery (Day of Procedure), Routine 0859 (Given - Provid er: Ivana Mitchell RN)0908 (Given - Provider: Ivana Mitchell RN)0914 (Given - Provider: Ivana Mitchell RN)0925 (Due) moxifloxacin (VIGAMOX) 0.5 % ophthalmic solution 1 drop (COMPLETED) 1 drop, Left Eye, EVERY 5 MIN, 3 doses, First dose on Thu05/16/13 at 0915, Last dose on Thu05/16/13 at 0925, Day of Surgery (Day of Procedure), Routine 0859 (Given - Provid er: Ivana Mitchell RN)0908 (Given - Provider: Ivana Mitchell RN)0914 (Given - Provider: Ivana Mitchell RN) PHENYLephrine (MYDFRIN) 2.5 % ophthalmic solution 1 drop (COMPLETED) 1 drop, Left Eye, EVERY 5 MIN, 3 doses, First dose on Thu05/16/13 at 0915, Last dose on Thu05/16/13 at 0925, Day of Surgery (Day of Procedure), Routine 0858 (Given - Provid er: Ivana Mitchell RN)0908 (Given - Provider: Ivana Mitchell RN)0914 (Given - Provider: Ivana Mitchell RN) prednisoLONE acetate (PRED FORTE) 1 % ophthalmic suspension 1 drop (COMPLETED) 1 drop, Left Eye, ONCE, 1 dose, On Thu05/16/13 at 0915, Day of Surgery (Day of Procedure), Routine 0858 (Given - Provid er: Ivana Mitchell RN)0915 (Due) Continuous Medication Order 05/14/2013 05/15/2013 05/16/2013 lactated ringers infusion 1,000 mL (CANCELED) 1,000 mL, at 100 mL/hr, Intravenous, CONTINUOUS, Starting on Thu05/16/13 at 0915, Until Thu05/16/13 at 1247, Day of Surgery (Day of Procedure) 0914 (New Bag - Prov ider: Ivana Mitchell RN) PRN Medication Order 05/14/2013 05/15/2013 05/16/2013 acetaminophen (TYLENOL) tablet 650 mg (CANCELED) 650 mg, Oral, EVERY 4 HOURS PRN, Starting on Thu05/16/13 at 1036, Until Thu05/16/13 at 1511, Pain, for MILD pain, Do not exceed 4,000 mg in 24 hours, Routine 1150 (Given - Provid er: Harika García RN) balanced salt (BSS PLUS) irrigation solution (CANCELED) ONCE PRN, Starting on Thu05/16/13 at 1031, Until Thu05/16/13 at 1247, Intra-Operative (Intra-Procedure), Routine 1031 (Given - Provid er: Orion Nina MD) balanced salt (BSS) irrigation solution (CANCELED) ONCE PRN, Starting on Thu05/16/13 at 1031, Until Thu05/16/13 at 1247, Intra-Operative (Intra-Procedure), Routine 1031 (Given - Provid er: Orion Nina MD) balanced salt (BSS) irrigation solution (CANCELED) ONCE PRN, Starting on Thu05/16/13 at 1032, Until Thu05/16/13 at 1247, Intra-Operative (Intra-Procedure), Routine 1032 (Given - Provid er: Orion Nina MD) BUpivacaine (PF) (MARCAINE) 0.75 % (7.5 mg/mL) injection (CANCELED) ONCE PRN, Starting on Thu05/16/13 at 1032, Until Thu05/16/13 at 1247, Intra-Operative (Intra-Procedure), Routine 1032 (Given - Provid er: Orion Nina MD - Comment: retrobulbar block) ceFAZolin (ANCEF) injection (CANCELED) ONCE PRN, Starting on Thu05/16/13 at 1033, Until Thu05/16/13 at 1247, Intra-Operative (Intra-Procedure), Routine 1033 (Given - Provid er: Orion Nina MD - Comment: subconjunctival injection) dexamethasone (DECADRON) injection (CANCELED) ONCE PRN, Starting on Thu05/16/13 at 1033, Until Thu05/16/13 at 1247, Intra-Operative (Intra-Procedure), Routine 103 (Given - Provid er: Orion Nina MD - Comment: post op subconjunctival injection) dextrose 50% injection (CANCELED) ONCE PRN, Starting on Thu05/16/13 at 1046, Until Thu05/16/13 at 1247, Low blood sugar, Intra-Operative (Intra-Procedure), Routine 1046 (Given - Provid er: Orion Nina MD - Comment: added to BSS Plus 500ml) dorzolamide-timolol (COSOPT) 2-0.5 % ophthalmic solution (CANCELED) ONCE PRN, Starting on Thu05/16/13 at 1033, Until Thu05/16/13 at 1247, Intra-Operative (Intra-Procedure), Routine 1033 (Given - Provid er: Orion Nina MD) fentaNYL 50mcg/mL injection (CANCELED) 25-50 mcg, Intravenous, EVERY 5 MIN PRN, Starting on Thu05/16/13 at 1114, Until Thu05/16/13 at 1247, Pain, for breakthrough pain, Hold for respiratory rate less than 10 per minute. Maximum dose: 250 mcg over one hour., PACU Recovery, Routine 1118 (Given - Provid er: Harika García RN) Lidocaine (PF) 20 mg/mL (2 %) (CANCELED) ONCE PRN, Starting on Thu05/16/13 at 1033, Until Thu05/16/13 at 1247, Intra-Operative (Intra-Procedure), Routine 103 (Given - Provid er: Orion Nina MD - Comment: retrobulbar block mixed with bupivacaine 3ml beginning, 3ml end of procedure) ayssbgbo-hyasifarg-ixzuujzjihf ne (DEXACINE) 3.5-10,000-0.1 mg-unit/g-% ophthalmic ointment (CANCELED) ONCE PRN, Starting on Thu05/16/13 at 1035, Until Thu05/16/13 at 1247, Intra-Operative (Intra-Procedure), Routine 1035 (Given - Provid er: Orion Nina MD - Comment: post op) povidone-iodine 5 % ophthalmic solution (CANCELED) ONCE PRN, Starting on Thu05/16/13 at 0952, Until Thu05/16/13 at 1247, Irritation, Intra-Operative (Intra-Procedure), Routine 0952 (Given - Provid er: Orion Nina MD - Comment: prep) sterile water injection (CANCELED) ONCE PRN, Starting on Thu05/16/13 at 1049, Until Thu05/16/13 at 1247, Intra-Operative (Intra-Procedure), Routine 1049 (Given - Provid er: Orion Nina MD - Comment: mixed with cefazolin) documented in this encounter Care Teams Smoke Jumper Relationship Specialty Start Date End Date Nayla Miramontes MD [address] [facility] [address] [place] [address] PCP - General 05/21/11 05/10/21 documented as of this encounter
--- OUTSIDE RECORDS SUMMARY | 2024-03-07 19:03 | XMS_ITS | Encounter Summary ---
Author Organization [facility] Address [facility] [place] [address] Care Team Providers Care Pathology Laboratory Director Name Role Phone Nayla Miramontes MD Primary Care Provider [phone] Reason for Visit * Reason Comments Diabetes 1-mon f/u for PDR-OU ,s/p PPV-OU Encounter Details Date Type Department Care Team (Late st Contact Info) Description 06/28/2013 3:45 PM EDT Office [place] [address] Dany Young MD [facility] [place] [address] Psoriatic arthritis.currently on Hydroxychloroquine. No signs of hydroxychloroquine retinopathy. Recommend close followup.; Vitreous hemorrhage of left eye; Proliferative diabetic retinopathy of both eyes, type 1, without macular edema; PDR (proliferative diabetic retinopathy), type 1, without macular edema Discharge Disposition: Home Social [...] Progress Notes * Dany Young MD - 06/28/2013 9:41 PM EDT 1. Psoriatic arthritis.currently on Hydroxychloroquine. No signs of hydroxychloroquine retinopathy.Recommend close followup. 2. Vitreous hemorrhage of left eye 3. Proliferative diabetic retinopathy of both eyes, type 1, without macular edema 4. PDR (proliferative diabetic retinopathy), type 1, without macular edema Patient is 6 weeks s/p vitrectomy PRP for PDR/VH Stable OD without hemorrhage or active NV [address] Kash AVALOS MD documented in this encounter Plan of Treatment Upcoming Encounters Date Type Department Care Team (Late st Contact Info) Description 05/17/2024 2:30 PM EST Office Visit [place] [phone] Alcides Bonilla MD [facility] [place] [address] 04/06/2049 9:00 AM EST Hospital Encounter [place] [phone] Harry Guerrero MD [facility] [place] [address] documented as of this encounter Visit Diagnoses Diagnosis Psoriatic arthritis.currently on Hydroxychloroquine. No signs of hydroxychloroquine retinopathy. Recommend close followup. Psoriatic arthropathy Vitreous hemorrhage of left eye Vitreous hemorrhage Proliferative diabetic retinopathy of both eyes, type 1, without macular edema PDR (proliferative diabetic retinopathy), type 1, without macular edema documented in this encounter Care Teams Pathology Laboratory Director Relationship Specialty Start Date End Date Nayla Miramontes MD [facility] [address] [place] [address] PCP - General 05/21/11 05/10/21 documented as of this encounter
--- OUTSIDE RECORDS SUMMARY | 2024-03-07 19:03 | XMS_ITS | Encounter Summary ---
Author Organization [facility] [place] [address] Care Team Providers Care Sales Program Manager Name Role Phone Nayla Miramontes MD Primary Care Provider [phone] Encounter Details Date Type Department Care Team (Late st Contact Info) Description 04/25/2013 Notes Only [place] [address] Lico Lopez MD [facility] [place] [address] Social History Tobacco Use Types Packs/Day Years [...] as of this encounter Progress Notes * Lico Lopez MD - 04/25/2013 2:24 PM EST At the request of her community marketing coordinator, I have evaluated Roxann Ceja with respect to her desire to apply for Social Security disability insurance. In my initial consultation note I reviewed the problems of her problem list could contribute to functional deficits. Patient Active Problem List Diagnosis Code ??? [...] ??? Chronic low back pain 724.2, 338.29 At the conclusion of my visit I made a decision to proceed with ordering a functional residual capacity evaluation do to her persistent chronic low back pain and psoriatic arthritis to assess more objectively its impact on her physical functioning. I also ordered a cognitive functional capacity evaluation because of her recurrent episodes of severe hypoglycemia and the potential impact it had on her cognitive functioning a full copy of these reports are available in the electronic record by abstract the metcalf points below: Summary Functional Capacity Findings: Sitting tolerance: 30 minutes Comments: Difficulty standing up Dynamic standing tolerance: 25 minutes Comments: leaned against wall at times for support Maximum cookie padder force: right 19 lbs left 16 lbs Comments: Fine motor coordination: unable to finish [employer] Test. 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 Missing threaded holes at [...] box Cognition: She scored 14/30 on the [place] Cognitive Assessment (MOCA) with below 26 considered [...] current abilities for the areas tested today. With respect to her SSDI appeal I bring attention to the following significant musculoskeletal impairments considered disabiling in the Social Security Blue Book Listing of Impairments - Adult Listings (Part A) 1.02 Major dysfunction of a joint(s) (due to any cause): Characterized by gross anatomical deformity (e.g., subluxation, contracture, bony or fibrous ankylosis, instability) and chronic joint pain and stiffness with signs of limitation of motion or other abnormal motion of the affected joint(s), and findings on appropriate medically acceptable imaging of joint space narrowing, bony destruction, or ankylosis of the affected joint(s). With: A. Involvement of one major peripheral weight-bearing joint (i.e., hip, knee, or ankle), resulting in inability to ambulate effectively, as defined in 1.00B2b; OR B. Involvement of one major peripheral joint in each upper extremity (i.e., shoulder, elbow, or wrist-hand), resulting in inability to perform fine and gross movements effectively, as defined in 1.00B2c. With respect to her psoriatic arthritis, the residual functional capacity evaluation shows that sheclearly has an inability to perform fine and gross movements effectively as defined in 1.00B2c 1.04 Disorders of the spine She has findings of significant scoliosis( leftward lumbar curvature approximately 26 degrees centered at L2-3) On appropriate medically acceptable imaging, manifested by chronic nonradicular pain and weakness, and resulting in inability to ambulate effectively, as defined in 1.00B2b and demonstrated on her Residual Functional Capacity Exam. 12.02 Organic mental disorders: Psychological or behavioral abnormalities associated with a dysfunction of the brain. History and physical examination or laboratory tests demonstrate the presence of a specific organic factor judged to be etiologically related to the abnormal mental state and loss of previously acquired functional abilities. Her cognitive functional capacity evaluation revealed significant debilitating cognitive deficits most probably due to her repeated severe episodes of hypoglycemia that in my view meet the criteria listed in this section. Her objectively documented deficits as outlined above add to her very long list of other medical problems which together further decrease her ability to obtain gainful employment in a competitive work place In that the Social Security Administration assigns its greatest weight to the attending physician, I suggest you use these findings in combination with my initial consultation note in writing a letter on her behalf to the Social Security Administration. Sincerely, LICO LOPEZ MD Section of Occupational Medicine [place] [address] Dept: [phone] Cc: Roxann Ceja documented in this encounter Plan of Treatment Upcoming Encounters Date Type Department Care Team (Late st Contact Info) Description 05/17/2024 2:30 PM EST Office Visit Gastroenterology at [place] [phone] Alcides Bonilla MD [facility] [place] [address] 04/06/2049 9:00 AM EST Hospital Encounter Gastroenterology at [place] [phone] Harry Guerrero MD [facility] [place] [address] documented as of this encounter Visit Diagnoses Not on filedocumented in this encounter Care Teams Sales Program Manager Relationship Specialty Start Date End Date Nayla Miramontes MD [facility] [address] [facility] [address] [place] [address] PCP - General 05/21/11 05/10/21 documented as of this encounter
--- OUTSIDE RECORDS SUMMARY | 2024-03-07 19:03 | XMS_ITS | Encounter Summary ---
Author Organization [facility] [place] [address] Care Team Providers Care Forensic Social Worker Name Role Phone Nayla Miramontes MD Primary Care Provider [phone] Reason for Visit * Reason Onset Date Comments Eye Problem 02/15/2013 Encounter Details Date Type Department Care Team (Late st Contact Info) Description 02/15/2013 [place] [address] Gloria Kinney MD [facility] DR OPHTHALMOLOGY [place] [address] Eye Problem Social History Tobacco Use Types Packs/Day [...] Miscellaneous Notes * Telephone Encounter - Gloria Delatorre COT - 02/15/2013 4:[address] Hewitt review: 1. Schedule EPF for week of March [address] Hewitt. 2. Does not need to be seen sooner given s/p PRP OU maximum therapy. Patient advised and given to advertising sales agent to schedule * Telephone Encounter - Gloria Delatorre COT - 02/15/2013 4:21 PM EST Patient called to report sudden, new bleed in the left eye on Thursday, 02/11 and in the right eye on 02/12, which has remained about the same, not improving usually when this happens it clears. Difficulty seeing to read. Reports adequate control BSL, about 130 this AM, higher later PM Dany Young MD Physician 04/13/2012 9:34 AM Signed The patient demonstrates significant clearing of her vitreous hemorrhages in each eye. No traction is ascertained. Neovascularization is assumed. The patient indicates that she is functional with activities of daily living and there are no safety issues. Precautions reviewed Recommend probable panretinal laser photocoagulation each eye to anterior retina. There is a good pattern of laser in the mid periphery in each eye. No signs of hydroxychloroquine retinopathy or ascertained Return 2-4 weeks for follow up and possible laser treatment Scheduled with Dr. Hewitt for follow up 05/05/2012 - patient cancelled/no reschedule * Telephone Encounter - Nahed Whitaker - 02/15/2013 4:14 PM EST OU Bleed,low vision and blurry having a hard time reading. OS started last week and OD started on Thursday documented in this encounter Plan of Treatment Upcoming Encounters Date Type Department Care Team (Late st Contact Info) Description 05/17/2024 2:30 PM EST Office [place] [phone] Alcides Bonilla MD [facility] [place] [address] 04/06/2049 9:00 AM EST Hospital [place] [phone] Harry Guerrero MD [facility] DR GASTROENTEROLOGY [place] [address] documented as of this encounter Visit Diagnoses Not on filedocumented in this encounter Care Teams Forensic Social Worker Relationship Specialty Start Date End Date Nayla Miramontes MD [address] [place] [address] [facility] [address] [place] [address] PCP - General 05/21/11 05/10/21 documented as of this encounter
--- OUTSIDE RECORDS SUMMARY | 2024-03-07 19:03 | XMS_ITS | Encounter Summary ---
[place] [address] Care Team Providers Care Music Librarian Name Role Phone Nayla Miramontes MD Primary Care Provider [phone] Reason for Referral * Physical Therapy (Routine) - Closed Specialty Diagnoses / Procedures Referred By Franklin t Referred To Contact Physical Therapy Diagnoses Type 1 diabetes mellitus Chronic low back pain Psoriatic arthritis Jann Lopez MD [facility] [place] [address] [facility] [place] [address] Referral ID Status Reason Start Date Expiration Date V isits Requested Visits Authorized [id number] Closed Consult Only 03/07/2013 2013 1 1 * Physical Therapy (Routine) - Duplicate Referral Specialty Diagnoses / Procedures Referred By Franklin laird Referred To Contact Physical Therapy Diagnoses Type 1 diabetes mellitus Chronic low back pain Psoriatic arthritis Jann Lopez MD [facility] [place] [address] [facility] [place] [address] Referral ID Status Reason Start Date Expiration Date Visits Requested Visits Authorized [id number] Duplicate Referral Consult Only 03/07/2013 2013 1 1 Reason for Visit * Reason Comments Advice Only Encounter Details Date Type Department Care Team (Latest Contact Info) Description 03/07/2013 3:00 PM EST Initial consult Occupational Medicine at [facility] [place] [address] Jann Lopez MD [facility] [address] [place] [address] Diabetes mellitus; Depression; Psoriasis; Diabetic retinopathy associated with type 1 diabetes mellitus; Cortical cataract; PSC (posterior subcapsular cataract), bilateral; Type 1 diabetes mellitus; Chronic low back pain; Psoriatic arthritis.currently on Hydroxychloroquine. No signs of [...] Sign Reading Time Taken Comments Blood Pressure 124/80 03/07/2013 2:52 PM EST Pulse 89 03/07/2013 2:52 PM EST Temperature - - Respiratory Rate 18 03/07/2013 2:52 PM EST Oxygen Saturation - - Inhaled Oxygen Concentration - - Weight - - Height - - Body Mass Index - - documented in this encounter Progress Notes * Jann Lopez MD - 03/07/2013 2:58 PM EST CC: Help with disability assessment and management History I am seeing this 57 y.o. woman in consultation at the request of her try out person for a disability evaluation. Current work status: out of work since December 2007 to home school a grand daughter and due to problems with her night vision and trouble keeping up with pace of her work. Occupational History: 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 Functional History ADLs: Stair climbing is very slow. Uses railing. Has lost depth perception. Able to 10 -20 mins at a slower pace than friends. Can walk a city block without stopping. Can sit 45 mins without moving and stand just 10-15 mins. IADLs: Intermittently cannot drive due to visual deficit (5-6 episodes lasting 3 days to 7 months).She minimizes errands because she rarely goes out on her own due to intermittent visual problems. She feels as though her medical issues, age, and lack of employment opportunities impact her job prospects. She feels as though her main debilitating medical problem is her eye sight. Functional Questionnaires: PDQ: 98/150; functional status score 59/90; psychosocial status 39/60 hire score equals high her level of disability Oswestry Disability Index: 58% (severe disability) PHQ9: 24 consistent with severe depression AAOS Lower Extremity: Normalized score of 10. Mean of the healthy population is 50., The lowest score possible equals 15.67. Lower score equals worse function Disability Insurance Status: Short Term Disability:none Mcc Disability:none Other:none Social Security Disability: Has applied twice and been denied twice and has appealed twice with representation by a law firm ([employer]) because the trimmer and reinforcer felt she could work at a part-time job. She feels as though her medical file was incomplete. She plans to apply again but does not have legal representation. Patient Active Problem List Diagnosis Code ??? [...] ??? Chronic low back pain 724.2, 338.29 Potentially Disabling Medical Problem Status: Type 1 Diabetes Managed with insulin pump and diet HgbA1c in 8% range over the last year; 8.5% on 01/13/13 Episodes of hypoglycemia, She has episodes of severe hypoglycemia requiring assistance 10-12 times per year. Not hospitalized this last year, but was last year in ICU for several days due to extremely high blood sugar. Complications Proliferative diabetic retinopathy s/p laser treatment (last apt in opth 04/13/12) Diabetic neuropathy: minimal pain or numbness managed with gabapentin She reports cognitive deficits (poor memory). No renal, vascular problems Hypothyroidism Euthyroid with medication Psoriasis and psoriatic arthritis Has intermittent skin plaques in small areas managed Without medications Arthritis affects most of her small and large joints. Managed with medications, currently celebrex only Severe psoriatic pain is intermittent ( twice a year) , but osteoarthritic knee pain is constant and affects gait. Note she has recently fractured her right 5th finger requiring surgical reduction and pinning but is left with a deformity. Scoliosis Chronic low back pain from middle back to her buttocks which she grades at 8/10 at its worst which is triggered by standing over 10-15 Minutes. It radiates down right lateral thigh. She reports intermittent numbness of entire right arm and leg. She reports global decreased Strength Depression/Anxiety Was evaluated by a psychologist about 2 years ago by her attorneys. She is currently cared for by anew counselor and a new psychiatrist as of next week. Currently, she feels fairly stable. No suicidal ideation currently though this does recur Intermittently typically triggered by psychosocial triggers like deaths in the family. Decades ago made a suicide attempt and was hospitalized at age 24. Has had anxiety attacks typically triggered by crowds. Over the last year, she minimizes social interaction with friends and crowds for this Reason Asthma No hospitalizations or ED visits. Manages with a rescue inhaler, needed only with a respiratory infection Past Medical History Past Medical History Diagnosis Date ??? Diabetes mellitus ??? Thyroid disease ??? Skin disease ??? GERD (gastroesophageal reflux disease) ??? Hyperlipidemia ??? Hypertension ??? Anxiety ??? Asthma ??? Cortical cataract 05/05/2011 ??? PDR (proliferative diabetic retinopathy) 05/25/2011 Current Outpatient Prescriptions Medication Sig Dispense Refill ??? esomeprazole (NEXIUM) 20 mg capsule Take [...] sets every 3 days Manually fax to [facility] 600 each 3 ??? insulin glargine [...] No current facility-administered medications for this visit. Facility-Administered Medications Ordered in Other Visits Medication Dose Route Frequency Provider Last Rate Last Dose ??? LORazepam (ATIVAN) tablet 1 mg 1 mg Oral Q30 Min PRN Wilian Hopkins MD History Social History ??? Marital Status: Spouse Name: N/A Number of Children: N/A ??? Years of Education: N/A Occupational History ??? Not on file. Social History Main Topics ??? Smoking status: Former Smoker Quit date: 05/06/1984 ??? Smokeless tobacco: Never Used ??? Alcohol Use: No ??? Drug Use: ??? Sexually Active: Other Topics Concern ??? Not on file Social History Narrative ??? No narrative on file Tobacco: No use of alcohol or recreational drugs Review of Systems - negative for constitutional symptoms except for chronic fatigue. No cardiovascular symptoms. Does have GERD symptoms. No urinary symptoms. Physical examination BP 124/80 Pulse 89 Resp 18 Skin: Psoriatic plaque over the right breast and right index finger. She is not fully disrobed but was asked to point out her plaques. She has pitting of her fingernails. Her skin is xerotic. Eyes: Pupils are equal round reactive to light and accommodation. She has full extraocular motions.She has a dense cataract in her left eye and a modest cataract in the right eye. Visual acuity lasttested in ophthalmology with a full exam in April of 2012. Musculoskeletal Scan She has a deformity of the right fifth finger with an extension lag at the PIP and DIP joints. She has decreased range of motion of both knees with decreased flexion on the right about 100?? butwith relatively full flexion on the left and full extension. She has decreased range of motion of her shoulders with abduction reduced to about 100?? and with internal rotation is able to get a her thumbs only to about her buttock level and with patient and get her thumbs to her occiput. She has decreased radial deviation of both hands. there are no signs of synovitis, soft tissue swelling, or joint effusion; no clubbing, cyanosis, or edema; proximal and distal strength = 5/5 bilaterally with the exception of grasp which is 4/5 + bilaterally. Also thumb index pinch is 4/5 on the left. Spine Observations: in no distress. Posture: able to stand erect Gait: slowed and wide based Palpation: diffuse Tenderness from T12 to S1 without ncreased tone or spasm. Range of motion: decreased to 40 degrees flexion and 10 degrees extension and bilateral bending Sensory: normal sensation to sharp touch througout the lower extremities. Deep tendon reflexes: 2+ and symmetric at knees and ankles Babinski: toes downgoing bilaterally Straight Leg raise: negative to > 70 degrees bilaterally Ledy's test: negative bilaterally Assessment The examinee he has multiple medical problems as outlined in her problem list. Potentially disabling problems with reference to her social security disability include: 1. Vision deficit: she does not meet the definition of statutory blindness at least with respect toher ophthalmologic evaluation in April of 2012. This should be updated and should include peripheral marin assessment. 2. Complications of diabetes Her episodes of hypo-and hyperglycemia impacting her mental status and potentially resulting in cognitive deficits are potentially disabling. Documentation of these episodes and of her cognitive deficits could be helpful in her application. She did not appear to have the other complication of diabetes that could potentially be disabling. 3. Chronic musculoskeletal pain associated with psoriatic arthritis and back pain These conditions could be potentially disabling if they limit her fine motor capabilities and her ability to ambulate effectively as defined by Social Security Administration 4. Depression/anxiety These mental health problems could potentially be disabling but would require additional psychiatric evaluation. Plan 1. I explained the rationale for proceeding with a functional residual capacity and cognitive functional capacity evaluation to support her application. I also explained that it would be best if her primary care provider write her letter incorporating the results of these additional assessments as well as my note in a letter signed ideally by the primary care provider in her application for SSDI in that the Social Security administration providers just greater weight to the primary physicians than the consulting physician. 2. I have ordered a functional residual capacity and cognitive functional capacity evaluation. I will see her afterwards to incorporate these findings into the final consultation note. documented in this encounter Miscellaneous Notes * Miscellaneous - Provider, Scanning - 03/18/2013 1:50 PM EST * Miscellaneous - Provider, Scanning - 03/18/2013 1:50 PM EST * Miscellaneous - Provider, Scanning - 03/18/2013 1:50 PM EST documented in this encounter Plan of Treatment Upcoming Encounters Date Type Department Care Team (Late st Contact Info) Description 05/17/2024 2:30 PM EST Office [place] [address] Alcides Bonilla MD [facility] [place] [address] 04/06/2049 9:00 AM EST Hospital [place] [address] Harry Guerrero MD [facility] DR GASTROENTER[place] [address] Scheduled Referrals Name Type Priority Associated Diagnoses Orde r Schedule Referral to Physical Therapy Outpatient Referral Routine Type 1 diabetes mellitus Chronic low back pain Psoriatic arthritis.currently on Hydroxychloroquine. No signs of hydroxychloroquine retinopathy. Recommend close followup. Ordered: 03/07/2013 Referral to Physical Therapy Outpatient Referral Routine Type 1 diabetes mellitus Chronic low back pain Psoriatic arthritis.currently on Hydroxychloroquine. No signs of hydroxychloroquine retinopathy. Recommend close followup. Ordered: 03/07/2013 documented as of this encounter Visit Diagnoses Diagnosis Diabetes mellitus Type II or unspecified type diabetes mellitus without mention of complication, not stated as uncontrolled Depression Depressive disorder, not elsewhere classified Psoriasis Other psoriasis Diabetic retinopathy associated with type 1 diabetes mellitus Type I (juvenile type) diabetes mellitus with ophthalmic manifestations, not stated as uncontrolled Cortical cataract Other cataract PSC (posterior subcapsular cataract), bilateral Unspecified cataract Type 1 diabetes mellitus Type I (juvenile type) diabetes mellitus without mention of complication, not stated as uncontrolled Chronic low back pain Lumbago Psoriatic arthritis.currently on Hydroxychloroquine. No signs of hydroxychloroquine retinopathy. Recommend close followup. Psoriatic arthropathy documented in this encounter Care Teams Music Librarian Relationship Specialty Start Date End Date Nayla Miramontes MD [address] [place] [address] PCP - General 05/21/11 05/10/21 documented as of this encounter
--- OUTSIDE RECORDS SUMMARY | 2024-03-07 19:03 | XMS_ITS | Encounter Summary ---
Author Organization [facility] Address [facility] [place] [address] Care Team Providers Care Director Of Cath Lab Name Role Phone Nayla Miramontes MD Primary Care Provider [phone] Encounter Details Date Type Department Care Team (Late st Contact Info) Description 05/16/2013 9:26 AM EST Anesthesia Event [place] [address] Roxann Borja MD [facility] [address] [place] [address] Anesthesia Record Procedure Summary Procedure Name Responsible Anesthesiologist Anesthesia Start Time Anesthesia Stop Time VITRECTOMY, PARS PLANA, LASER (WRVU 13.2) (Left: Eye) Roxann Borja MD 05/16/13 0926 05/16/13 1058 Events Date Time Event Comment 05/16/2013 0926 Start 0930 0932 AN Verify 0932 An Start Data 0939 An Induction 0940 An Intubation 0940 Quick Note Poor view with MAC 3, switch to glidescope. Airway clear. Grade 1 view with glide. 0944 Anesthesia Ready 0954 Procedure Start 1033 Procedure Stop 1040 Quick Note Bronchospasm. I V lidocaine and Albuterol given. Sats briefly down to 70's, back up to 100%. 1047 Extubation/LMA Out 1047 an stop data 1058 Stop Meds Name Total fentaNYL 100 mcg lidocaine IV 80 mg propofol 150 mg PHENYLephrine 480 mcg ePHEDrine 20 mg Ondansetron 4 mg dextrose 50 % 10 mL succinylcholine 100 mg Midazolam 2 mg PHENYLephrine (Marlo-Synephrin e) (80 mcg/mL) in sodium chloride 0.9% 250 mL infusion 620 mcg albuterol inhaler 6 puff lactated ringers 500 mL * Agents Name O2 Air Sevoflurane (et) Desflurane (et) * Blood No blood administrations on file. Lines, Drains, and Airways Type Details Placement Removal Incision 05/16/13; eye; still in system from 2013; 05/15/16; 225205/16/13 0000 by Roxann Ridley RN 05/15/16 2253 by Gonsalo Yanez RN (RETIRED) Peripheral IV Line - Single Lumen 05/16/13; 0910; 05/16/13; 1245 05/16/13 0910 by Ivana Mitchell RN 05/16/13 1245 by Harika García RN (RETIRED) Non-Surgical Airway ETT Type: Cuffed, Oral, ESTELLA; ETT Size: 7 mm; Removal Date: 05/16/13; Removal Time: 1047 05/16/13 0939 by Roxann Rolon CRNA 05/16/13 1047 by Roxann Rolon CRNA documented in this encounter Social History [...] OR Notes * Anesthesia Postprocedure Evaluation - Roxann Borja MD - 05/16/2013 11:21 AM EST Patient: Roxann Ceja Procedure(s) Performed: Procedure(s): VITRECTOMY, PARS PLANA, LASER Actual Anesthetic: general Patient location: PACU Post-op pain: Adequate analgesia although pt is just starting to c/o mild burning left eye. Post-op nausea: no nausea or vomiting Last Vitals: Filed Vitals: 05/16/13 1113 BP: 137/59 Pulse: 82 Temp: Resp: 16 Post-op cardiovascular and respiratory status: is stable Level of consciousness: awake, alert and oriented Complications: no apparent complications and tolerated the procedure well Fluid Status: normal * Anesthesia Preprocedure Evaluation - Gonzales AshleyJOHNNY Nuñez - 05/15/2013 3:03 PM EST Pre-Anesthesia Evaluation for: Roxann Ramirez Marcial a 57 y.o. female. Procedure(s): VITRECTOMY, PARS PLANA, LASER Patient Active Problem List Diagnosis ??? Scoliosis ??? Chronic low back pain [...] [id number] Past Medical History Diagnosis Date ??? Diabetes mellitus ??? Thyroid disease ??? Skin disease ??? GERD (gastroesophageal reflux disease) ??? Hyperlipidemia ??? Hypertension ??? Anxiety ??? Asthma ??? Cortical cataract 05/05/2011 ??? PDR (proliferative diabetic retinopathy) 05/25/2011 Past Surgical History Procedure Date ??? Upper gi endoscopy, exam 04/25/2011 UPPER GI ENDOSCOPY performed by MARIA DEL CARMEN BOB at [facility] END[facility]COPY ??? Upper gi endoscopy, biopsy 04/27/2012 UPPER GASTROINTESTINAL ENDOSCOPY,WITH BIOPSY SINGLE OR MULTIPLE performed by Luis Bucio MD [facility] ENDOSCOPY ??? Retinal laser surgery History Substance Use Topics ??? Smoking status: Former Smoker Quit date: 05/06/1984 ??? Smokeless tobacco: Never Used ??? Alcohol Use: No History Drug Use Allergies Allergen Reactions ??? Codeine Phosphate ??? Propoxyphene N-Acetaminophen Medications: MAR and/or home medications have been reviewed. Physical Exam: There were no vitals filed for this visit. There is no height or weight on file to calculate BMI. Airway Assessment: Mallampati: II TM distance: >3 FB Neck ROM: full Cardiovascular Assessment: Rhythm: regular Pulmonary Assessment: pulmonary exam normal Dental Assessment: Comment: Partial upper denture. Otherwise none loose. [facility] Assessment: IV access: Peripheral line Anesthesia Plan: ASA 4 general, with a(n) intravenous induction 57 y/o female with insulin-dependent DM1 (POC glucose 97 this AM), HTN, HLD, asthma (+ post-infectious reactive airway disease - no problems recently), GERD on nexium but not well-controlled because of gastroparesis, presents with vitreous hemorrhage for vitrectomy. Regarding her DM, pt turned off her insulin pump in SDA. She states that she has had difficulties with her blood sugar recently with swings between 500 and 30. Pt also states that she has developed gastroparesis which she will be seeing her PCP for. She sleeps on 3-4 pillows at night but still feels fullness after meals and usually wakes up vomiting undigested food at 1AM. This occurred early this AM. Pt states that she currently does not feel fullness and has been NPO over 8 hours. Denies problems with anesthesia in the past, self or family. Plan GETA/RSI. Dextrose 50 supplementation and glucose monitoring. Region - Other Informed Consent: Anesthetic plan and risks discussed with patient and spouse. Plan discussed with JOHNNY. [facility]. Assessment: documented in this encounter Miscellaneous Notes * Addendum Note - Roxann Rolon CRNA - 05/16/2013 12:50 PM EST Addendum created 05/16/13 1250 by Roxann Rolon CRNA Modules edited:Anesthesia Medication Administration documented in this encounter Plan of Treatment Upcoming Encounters Date Type Department Care Team (Late st Contact Info) Description 05/17/2024 2:30 PM EST Office [place] [phone] Alcides Bonilla MD [facility] [place] [address] 04/06/2049 9:00 AM EST Hospital Encounter [place] [address] Harry Guerrero MD [facility] DR [place] [address] documented as of this encounter Visit Diagnoses Not on filedocumented in this encounter Administered Medications Inactive Administered Medications - up to 3 most recent administrations Medication Order MAR Action Action Date Dose Rate Site albuterol (PROVENTIL HFA;VENTOLIN HFA) 90 mcg/actuation inhaler PRN, Starting on Thu05/16/13 at 1040, Until Thu05/16/13 at 1121, Wheezing, Anesthesia Intra-op, Routine Given 05/16/2013 10:40 AM EST 6 puffs dextrose 50% injection PRN, Starting on Thu05/16/13 at 0938, Until Thu05/16/13 at 1058, Low blood sugar, Anesthesia Intra-op, Routine Given 05/16/2013 9:38 AM EST 10 mLs ePHEDrine Sulfate in sodium chloride 0.9% (PF) 50 mg/10 mL (5 mg/mL) injection Syrg PRN, Starting on Thu05/16/13 at 0952, Until Thu05/16/13 at 1058, Anesthesia Intra-op Given 05/16/2013 10:06 AM EST 5 mg Given 05/16/2013 9:54 AM EST 5 mg Given 05/16/2013 9:52 AM EST 10 mg fentaNYL 50mcg/mL injection PRN, Starting on Thu05/16/13 at 0938, Until Thu05/16/13 at 1058, Pain, Anesthesia Intra-op, Routine Given 05/16/2013 9:59 AM EST 50 mcg Given 05/16/2013 9:38 AM EST 50 mcg lactated ringers infusion CONTINUOUS PRN, Starting on Thu05/16/13 at 0926, Until Cristina 12/08/13 at 1348, Anesthesia Intra-op New Bag 05/16/2013 9:26 AM EST mL lidocaine (PF) (XYLOCAINE) 100 mg/5 mL (2 %) injection PRN, Starting on Thu05/16/13 at 0938, Until Thu05/16/13 at 1058, Anesthesia Intra-op, Routine Given 05/16/2013 10:40 AM EST 40 mg Given 05/16/2013 9:38 AM EST 40 mg midazolam (PF) (VERSED) 1 mg/mL injection PRN, Starting on Thu05/16/13 at 0926, Until Thu05/16/13 at 1058, Sleep, Anesthesia Intra-op, Routine Given 05/16/2013 9:26 AM EST 2 mg ondansetron (ZOFRAN) injection PRN, Starting on Thu05/16/13 at 1004, Until Thu05/16/13 at 1058, Nausea, Anesthesia Intra-op, Routine Given 05/16/2013 10:04 AM EST 4 mg PHENYLephrine (MARLO-SYNEPHRINE) 20 mg in sodium chloride 250 mL infusion CONTINUOUS PRN, Starting on Thu05/16/13 at 1010, Until Thu05/16/13 at 1058, Anesthesia Intra-op, Routine Rate/Dose Change 05/16/2013 10:32 AM EST 10 mcg/min 7.5 mL/hr Rate/Dose Change 05/16/2013 10:17 AM EST 30 mcg/min 22.5 m L/hr New Bag 05/16/2013 10:10 AM EST 20 mcg/min 15 mL/hr PHENYLephrine HCl in NS (PF) (MARLO-SYNEPHRINE) 0.8 mg/10 mL (80 mcg/mL) injection Syrg PRN, Starting on Thu05/16/13 at 0952, Until Thu05/16/13 at 1058, Anesthesia Intra-op, Routine Given 05/16/2013 10:06 AM EST 160 mcg Given 05/16/2013 9:54 AM EST 160 mcg Given 05/16/2013 9:52 AM EST 160 mcg propofol (DIPRIVAN) 10 mg/mL bolus injection (Anesthesia) PRN, Starting on Thu05/16/13 at 0939, Until Thu05/16/13 at 1058, Anesthesia Intra-op Given 05/16/2013 9:39 AM EST 150 mg succinylcholine (ANECTINE) injection PRN, Starting on Thu05/16/13 at 0939, Until Thu05/16/13 at 1058, Anesthesia Intra-op, Routine Given 05/16/2013 9:39 AM EST 100 mg documented in this encounter Care Teams Director Of Cath Lab Relationship Specialty Start Date End Date Nayla Miramontes MD [address] [facility] [address] [place] [address] PCP - General 05/21/11 05/10/21 documented as of this encounter
--- OUTSIDE RECORDS SUMMARY | 2024-03-07 19:03 | XMS_ITS | Encounter Summary ---
[place] [address] Care Team Providers Care Beverage Steward Name Role Phone Nayla Miramontes MD Primary Care Provider [phone] Reason for Visit * Reason Onset Date Comments Other 07/27/2013 Humira Encounter Details Date Type Department Care Team (Late st Contact Info) Description 07/27/2013 [place] [phone] Carmela Hyde RN Other (Humira) Social History Tobacco Use Types Packs/Day Years [...] Telephone Encounter - Lyubov Hutton RN - 07/28/2013 9:05 AM EDT I have called [facility] and confirmed that the Rx for Humira is not a starter kit. * Telephone Encounter - Carmela Hyde RN - 07/27/2013 1:24 PM EDT Liz from [facility] is calling because they received a Humira rx from [facility]. They need to know if dosing should be for a starter kit with loading dose of if this is a maintenance dose. Liz says patient told them it is a starter kit, but she needs to be sure. documented in this encounter Plan of Treatment Upcoming Encounters Date Type Department Care Team (Late st Contact Info) Description 05/17/2024 2:30 PM EST Office [place] [phone] Alcides Bonilla MD [facility] [place] [address] 04/06/2049 9:00 AM EST Hospital Encounter Gastroenterology at [place] [phone] Harry Guerrero MD [facility] [place] [address] documented as of this encounter Visit Diagnoses Not on filedocumented in this encounter Care Teams Beverage Steward Relationship Specialty Start Date End Date Nayla Miramontes MD [facility] [address] [place] [address] PCP - General 05/21/11 05/10/21 documented as of this encounter
--- OUTSIDE RECORDS SUMMARY | 2024-03-07 19:03 | XMS_ITS | Encounter Summary ---
[place] [address] Care Team Providers Care Wheel Press Operator Name Role Phone Nayla Fatima MD Primary Care Provider [phone] Encounter Details Date Type Department Care Team (Latest Contact Info) Description 08/02/2013 9:00 AM EDT Procedure [place] [address] CLINIC, Gloria Victoria RN Esophageal reflux (Primary Dx) Discharge Disposition: Home Social History [...] Progress Notes * Harry Guerrero MD - 08/20/2013 9:17 AM EDT ESOPHAGEAL MANOMETRY Roxann Ceja Female, 57 yrs, 1955 PCP: NAYLA FATIMA MATERIALS ANALYST: NAYLA FATIMA STUDY DATE: 08/02/13 PROVIDER: Harry Guerrero, [place] ([id number]) INDICATION Dysphagia. METHODS Stationary esophageal manometry was performed with the Right Relevance esophageal motility system utilizing the Lvmae software with a 4-channel solid-state motility probe. [...] has been ruled out by upper endoscopy. Harry Guerrero, PhD, MD agency sales director, [facility] [employer] Section of Gastroenterology and Hepatology [facility] [place] [address] V: [phone] F: [phone] FLEX/meenakshi CC/EC: PCP - staff msg copy 08/05/13 Enclosure: Tracing Tamanna Nguyen APRN - staff msg copy 08/05/13 Enclosure: Tracing * Gloria Haley RN - 08/02/2013 9:26 AM EDT Esophageal manometry performed without difficulty and was well tolerated. documented in this encounter Plan of Treatment Upcoming Encounters Date Type Department Care Team (Late st Contact Info) Description 05/17/2024 2:30 PM EST Office [place] [address] Alcides Bonilla MD [facility] [place] [address] 04/06/2049 9:00 AM EST Hospital [place] [phone] Harry Guerrero MD [facility] [place] [address] documented as of this encounter Visit Diagnoses Diagnosis Esophageal reflux- Primary documented in this encounter Care Teams Wheel Press Operator Relationship Specialty Start Date End Date Nayla Fatima MD [facility] [address] [place] [address] PCP - General 05/21/11 05/10/21 documented as of this encounter
--- OUTSIDE RECORDS SUMMARY | 2024-03-07 19:03 | XMS_ITS | Encounter Summary ---
Author Organization [facility] Address [facility] [place] [address] Care Team Providers Care Employment Manager Name Role Phone Nayla Miramontes MD Primary Care Provider [phone] Encounter Details Date Type Department Care Team (Late st Contact Info) Description 05/16/2013 9:31 AM EST - 05/16/2013 10:59 AM EST Surgery [place] [address] Orion Nina MD [facility] [place] [address] VITRECTOMY, PARS PLANA, LASER (WRVU 13.2) Social History Tobacco Use Types Packs/Day Years [...] Sign Reading Time Taken Comments Blood Pressure 141/51 05/16/2013 10:52 AM EST Pulse 81 05/16/2013 10:52 AM EST Temperature 36.4 ??C (97.5 ??F) 05/16/2013 10:[address] Respiratory Rate 16 05/16/2013 10:52 AM EST Oxygen Saturation 100% 05/16/2013 10:52 AM EST Inhaled Oxygen Concentration - - [...] all eye drops to tomorrow's appointment. Call [phone] for all questions concerns. documented in this encounter Medications at Time of Discharge Medication Sig Dispensed Refills Start Date End Date MULTI-VITAMIN ORAL Take 1 tablet by mouth daily. Reported on 05/26/2016 CELECOXIB (CELEBREX ORAL) Take by mouth. 05/14/2016 Diabetic Supplies, [employer]. MiscIndications:Type I (juvenile type) diabetes mellitus without mention of complication, not stated as uncontrolled Faxed pump and supply order to [employer] at [phone]. Dx Code: 250.01 100 each 12 05/03/2013 [...] mg by mouth daily. 08/25/2013 Diabetic Supplies, [employer]. MiscIndications:Diab etes mellitus 1 each by Misc.(Non-Drug; Combo Route) route 6 times daily. Diagnosis: 250.91 Change infusion sets every 3 days Manually fax to [employer] Diabetes 600 each 3 05/30/2011 07/03/2014 insulin [...] Sig Dispense Refill ??? Diabetic Supplies, [facility] Faxed pump and supply order to [employer] at [phone]. DxCode: 250.01 100 each 12 ??? esomeprazole [...] Diabetic Supplies, [employer]. Misc 1 each by [facility].(Non-Drug; Combo Route) route 6 times daily. Diagnosis: 250.91 Change infusion sets every 3 days Manually fax to [employer] Diabetes 600 each 3 ??? insulin glargine [...] at [facility] ENDOSCOPY ??? Upper gi endoscopy, biopsy 04/27/2012 UPPER GASTROINTESTINAL ENDOSCOPY,WITH BIOPSY SINGLE OR MULTIPLE performed by Luis Bucio MD [facility] ENDOSCOPY ??? Retinal laser surgery Review of [...] Sig Dispense Refill ??? Diabetic Supplies, [facility]. [facility] Faxed pump and supply order to [employer] at [phone]. DxCode: 250.01 100 each 12 ??? esomeprazole [...] sets every 3 days Manually fax to [employer] Diabetes 600 each 3 ??? insulin glargine [...] at [facility] ENDOSCOPY ??? Upper gi endoscopy, biopsy 04/27/2012 UPPER GASTROINTESTINAL ENDOSCOPY,WITH BIOPSY SINGLE OR MULTIPLE performed by Luis Bucio MD [facility] ENDOSCOPY ??? Retinal laser surgery Review of [...] Nina MD - 05/16/2013 10:36 AM EST [facility] Operative Note Patient Name: Roxann Ceja : [id number] MR#: [id number] Case Date: 05/16/2013 Surgeon: Surgeon(s) and Role: * Orion Nina MD - Primary * Yesica Person PA - Resident-Social Service Assistant Preoperative diagnosis: diabetic vitreous hemorrhage left Postoperative [...] Operative Note Patient Name: Roxann Ceja : [id number] MR#: [id number] Case Date: 05/16/2013 Surgeon: Surgeon(s) and Role: * Orion Nina MD - Primary * Yesica Person PA - Resident-Social Service Assistant Preoperative diagnosis: diabetic vitreous hemorrhage left Postoperative [...] 2:30 PM EST Office [place] [phone] Alcides Bonilla MD [facility] [place] [address] 04/06/2049 9:00 AM EST Hospital En[place] [phone] Harry Guerrero MD [facility] [place] [address] documented as of this encounter Procedures Procedure [...] * POCT Glucose (05/16/2013 10:52 AM EST) [facility] Signature Glucose, POC 150 60 - 199 mg/dL [facility] Comment: Supplemental ranges: <110 mg/dL before meals <200 mg/dL all other times of the day Blood specimen (specimen) 05/16/2013 10:52 AM EST 05/16/2013 10:52 AM EST Orion Nnia MD POINT OF CARE T EST ORDERABLES Performing Organization Address [facility] Phone Number [facility] * POCT Glucose (05/16/2013 10:15 AM EST) Glucose, POC 142 60 - 199 mg/dL [facility] Comment: Supplemental ranges: <110 mg/dL before meals <200 mg/dL all other times of the day Blood specimen (specimen) 05/16/2013 10:15 AM EST 05/16/2013 10:15 AM EST Orion Nina MD POINT OF CARE T EST ORDERABLES Performing Organization Address [facility] Phone Number [facility] * POCT Glucose (05/16/2013 9:53 AM EST) Glucose, POC 119 60 - 199 mg/dL [facility] Comment: Supplemental ranges: <110 mg/dL before meals <200 mg/dL all other times of the day Blood specimen (specimen) 05/16/2013 9:53 AM EST 05/16/2013 9:53 AM EST Orion Nina MD POINT OF CARE T EST ORDERABLES Performing Organization Address [facility] Phone Number [facility] * POCT Glucose (05/16/2013 8:45 AM EST) Glucose, POC 97 60 - 199 mg/dL [facility] Comment: Supplemental ranges: <110 mg/dL before meals <200 mg/dL all other times of the day Blood specimen (specimen) 05/16/2013 8:45 AM EST 05/16/2013 8:45 AM EST Orion Nina MD POINT OF CARE T EST ORDERABLES Performing Organization Address [facility] de Phone Number [facility] [employer] * (ABNORMAL) Creatinine (05/16/2013 8:30 AM EST) Creatinine 0.97 0.70 - 1.20 mg/dL [facility] Comment: Please note that the pediatric reference intervals supplied above were not validated at [facility]. Results from pediatric patients should be interpreted in conjunction to the patient's age, height and muscle mass. Est Glomerular Filtration Rate 59(L) >=60 [facility] Comment: This estimated GFR (eGFR) value [...] Borja MD CHEMISTRY ORDERABLES Performing Organization Address [facility] de Phone Number [facility] [employer] * BUN (05/16/2013 8:30 AM EST) Blood Urea Nitrogen 17 8 - 18 mg/dL [facility] [employer] Blood specimen (specimen) 05/16/2013 8:30 AM EST 05/16/2013 8:57 AM EST Narrative Resulting Agency Comment Spec In Lab Roxann Borja MD CHEMISTRY ORDERABLES Performing Organization Address [facility] Co de Phone Number [facility] [employer] documented in this encounter Visit Diagnoses Diagnosis Psoriatic arthritis Psoriatic arthropathy Nuclear sclerosis, unspecified laterality Proliferative diabetic retinopathy of both eyes, type 1, without macular edema documented in [...] Given 05/16/2013 8:59 AM EST 1 drop balanced salt (BSS PLUS) irrigation solution ONCE PRN, Starting on Thu05/16/13 at 1031, Until Thu05/16/13 at 1247, Intra-Operative (Intra-Procedure), Routine Given 05/16/2013 10:31 AM EST 500 mLs Left Eye balanced salt (BSS) irrigation solution ONCE PRN, Starting on Thu05/16/13 at 1031, Until Thu05/16/13 at 1247, Intra-Operative (Intra-Procedure), Routine Given 05/16/2013 10:31 AM EST 45 mLs Left Eye balanced salt (BSS) irrigation solution ONCE PRN, Starting on Thu05/16/13 at 1032, Until Thu05/16/13 at 1247, Intra-Operative (Intra-Procedure), Routine Given 05/16/2013 10:32 AM EST 500 mLs Left Eye BUpivacaine (PF) (MARCAINE) 0.75 % (7.5 mg/mL) injection ONCE PRN, Starting on Thu05/16/13 at 1032, Until Thu05/16/13 at 1247, Intra-Operative (Intra-Procedure), Routine Given 05/16/2013 10:32 AM EST 3 mLs Left Eye ceFAZolin (ANCEF) injection ONCE PRN, Starting on Thu05/16/13 at 1033, Until Thu05/16/13 at 1247, Intra-Operative (Intra-Procedure), Routine Given 05/16/2013 10:33 AM EST 100 mg dexamethasone (DECADRON) injection ONCE PRN, Starting on Thu05/16/13 at 1033, Until Thu05/16/13 at 1247, Intra-Operative (Intra-Procedure), Routine Given 05/16/2013 10:33 AM EST 2 mg Left Gluteal dextrose 50% injection ONCE PRN, Starting on Thu05/16/13 at 1046, Until Thu05/16/13 at 1247, Low blood sugar, Intra-Operative (Intra-Procedure), Routine Given 05/16/2013 10:46 AM EST 3 mLs dorzolamide-timolol (COSOPT) 2-0.5 % ophthalmic solution ONCE PRN, Starting on Thu05/16/13 at 1033, Until Thu05/16/13 at 1247, Intra-Operative (Intra-Procedure), Routine Given 05/16/2013 10:33 AM EST 1 drop fentaNYL 50mcg/mL injection [...] 9:14 AM EST 1,000 mLs 100 mL/hr Lidocaine (PF) 20 mg/mL (2 %) ONCE PRN, Starting on Thu05/16/13 at 1033, Until Thu05/16/13 at 1247, Intra-Operative (Intra-Procedure), Routine Given 05/16/2013 10:33 AM EST 60 mg Left Eye moxifloxacin (VIGAMOX) 0.5 % ophthalmic solution 1 drop 1 drop, Left Eye, EVERY 5 MIN, 3 doses, First dose on Thu05/16/13 at 0915, Last dose on Thu05/16/13 at 0925, Day of Surgery (Day of Procedure), Routine Given 05/16/2013 9:14 AM EST 1 drop Given 05/16/2013 9:08 AM EST 1 drop Given 05/16/2013 8:59 AM EST 1 drop kdkuglln-usgnxznax-jrhcpbknkxphf (DEXACINE) 3.5-10,000-0.1 mg-unit/g-% ophthalmic ointment ONCE PRN, Starting on Thu05/16/13 at 1035, Until Thu05/16/13 at 1247, Intra-Operative (Intra-Procedure), Routine Given 05/16/2013 10:35 AM EST 1 Tube Left Eye PHENYLephrine (MYDFRIN) 2.5 % ophthalmic solution 1 drop 1 drop, Left Eye, EVERY 5 MIN, 3 doses, First dose on Thu05/16/13 at 0915, Last dose on Thu05/16/13 at 0925, Day of Surgery (Day of Procedure), Routine Given 05/16/2013 9:14 AM EST 1 drop Given 05/16/2013 9:08 AM EST 1 drop Given 05/16/2013 8:58 AM EST 1 drop povidone-iodine 5 % ophthalmic solution ONCE PRN, Starting on Thu05/16/13 at 0952, Until Thu05/16/13 at 1247, Irritation, Intra-Operative (Intra-Procedure), Routine Given 05/16/2013 9:52 AM EST 30 mLs prednisoLONE acetate (PRED FORTE) 1 % ophthalmic suspension 1 drop 1 drop, Left Eye, ONCE, 1 dose, On Thu05/16/13 at 0915, Day of Surgery (Day of Procedure), Routine Given 05/16/2013 8:58 AM EST 1 drop sterile water injection ONCE PRN, Starting on Thu05/16/13 at 1049, Until Thu05/16/13 at 1247, Intra-Operative (Intra-Procedure), Routine Given 05/16/2013 10:49 AM EST 2.5 mLs Left Eye documented in this encounter Active and Recently [...] Ivana Mitchell RN)0914 (Given - Provider: Ivana Mitchell, ELSA)0925 (Due) moxifloxacin (VIGAMOX) 0.5 % ophthalmic solution [...] Ivana Mitchell RN)0908 (Given - Provider: Ivana Mitchell, ELSA)0914 (Given - Provider: Ivana Mitchell RN) prednisoLONE [...] 1247, Day of Surgery (Day of Procedure) 09 ([facility] ider: Ivana Mitchell RN) PRN Medication Order [...] 103 (Given - Provid er: Orion Nina MD) balanced salt (BSS) irrigation solution (CANCELED) ONCE PRN, Starting on Thu05/16/13 at 1031, Until Thu05/16/13 at 1247, Intra-Operative (Intra-Procedure), Routine 103 (Given - Provid er: Orion Nina MD) balanced salt (BSS) irrigation solution (CANCELED) ONCE PRN, Starting on Thu05/16/13 at 1032, Until Thu05/16/13 at 1247, Intra-Operative (Intra-Procedure), Routine 103 (Given - Provid er: Orion Nina MD) [...] bupivacaine 3ml beginning, 3ml end of procedure) zzfseqmw-ksjibttfm-gvdhsdsmlbi ne (DEXACINE) 3.5-10,000-0.1 mg-unit/g-% ophthalmic ointment (CANCELED) ONCE PRN, Starting on Thu05/16/13 at 1035, Until Thu05/16/13 at 1247, Intra-Operative (Intra-Procedure), Routine 1035 (Given - Provid er: Orion Nina MD - Comment: post op) povidone-iodine 5 % ophthalmic solution (CANCELED) ONCE PRN, Starting on Thu05/16/13 at 0952, Until Thu05/16/13 at 1247, Irritation, Intra-Operative (Intra-Procedure), Routine 09 (Given - Provid er: Orion Nina MD - Comment: prep) sterile water injection (CANCELED) ONCE PRN, Starting on Thu05/16/13 at 1049, Until Thu05/16/13 at 1247, Intra-Operative (Intra-Procedure), Routine 1049 (Given - Provid er: Orion Nina MD - Comment: mixed with cefazolin) documented in this encounter Care Teams Employment Manager Relationship Specialty Start Date End Date Nayla Miramontes MD [address] [facility] [address] [place] [address] PCP - General 05/21/11 05/10/21 documented as of this encounter
--- OUTSIDE RECORDS SUMMARY | 2024-03-07 19:03 | XMS_ITS | Encounter Summary ---
[place] [address] Care Team Providers Care Software Licensing Specialist Name Role Phone Nayla Miramontes MD Primary Care Provider [phone] Reason for Visit * Reason Onset Date Comments Other 07/27/2013 Follow Up Encounter Details Date Type Department Care Team (Late st Contact Info) Description 07/27/2013 [place] [phone] Tyler Mejia, RN Other (Follow Up) Social History Tobacco [...] Miscellaneous Notes * Telephone Encounter - Tyler Mejia RN - 07/27/2013 10:03 AM EDT I spoke with Eyal (Spouse) today and he will talk with Roxann and await for MRI to call to schedule. * Telephone Encounter - Tyler Mejia RN - 07/27/2013 10:02 AM EDT Message copied by TYLER MEJIA on ThuJul 27, 2013 10:02 AM ------ Message from: JOSE ALBERTO WEST Created: Julio Cesar Jul 26, 2013 9:42 PM Hi Mo, Could you please call this pt and let her know that her neuropsych testing showed memory and cognitive deficit? They recommended MRI of the brain for further evaluation. I ordered an MRI of the brainfor her. Thanks Jose Alberto documented in this encounter Plan of Treatment Upcoming Encounters Date Type Department Care Team (Late st Contact Info) Description 05/17/2024 2:30 PM EST Office Visit Gastroenterology at [place] [phone] Alcides Bonilla MD [facility] [place] [address] 04/06/2049 9:00 AM EST Hospital Encounter Gastroenterology at [place] [phone] Harry Guerrero MD [facility] [place] [address] documented as of this encounter Visit Diagnoses Not on filedocumented in this encounter Care Teams Software Licensing Specialist Relationship Specialty Start Date End Date Nayla Miramontes MD [facility] [address] [place] [address] PCP - General 05/21/11 05/10/21 documented as of this encounter
--- OUTSIDE RECORDS SUMMARY | 2024-03-07 19:04 | XMS_ITS | Encounter Summary ---
Author Organization [facility] Address [facility] [place] [address] Care Team Providers Care Broomcorn Scraper Name Role Phone Nayla Miramontes MD Primary Care Provider [phone] Reason for Visit * Reason Comments Eye Problem The patient presents with a chief complaint of reduced vision with new hemorrhage in the right eye and left eye resolving. ROBBIE Edgar Encounter Details Date Type Department Care Team (Late st Contact Info) Description 03/09/2012 9:30 AM EST [place] [address] Dany Young MD [facility] DR [place] [address] PDR (proliferative diabetic retinopathy). Mild vitreous hemorrhage left eye clearing. Recurrent mild to moderate vitreous hemorrhage right eye.; Type 1 diabetes mellitus; PSC (posterior subcapsular cataract), bilateral; Psoriasis with arthritis. No signs of hydroxychloroquine retinopathy Discharge Disposition: Home Social History Tobacco Use [...] Progress Notes * Dany Young MD - 03/09/2012 10:45 AM EST Patient presents for followup evaluation of her [...] issues addressed. Call if severe bilateral involvement Dany Young M.D. documented in this encounter Plan of Treatment Upcoming Encounters Date Type Department Care Team (Late st Contact Info) Description 05/17/2024 2:30 PM EST Office [place] [address] Alcides Bonilla MD [facility] [place] [address] 04/06/2049 9:00 AM EST Hospital Encounter [place] [address] Harry Guerrero MD [facility] DR [place]STRO[place] [address] documented as of this encounter Visit Diagnoses Diagnosis PDR (proliferative diabetic retinopathy). Mild vitreous hemorrhage left eye clearing. Recurrent mild to moderate vitreous hemorrhage right eye. 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 No signs of hydroxychloroquine retinopathy Other psoriasis documented in this encounter Care Teams Broomcorn Scraper Relationship Specialty Start Date End Date Nayla Miramontes MD [address] [place] [address] PCP - General 05/21/11 05/10/21 documented as of this encounter
--- OUTSIDE RECORDS SUMMARY | 2024-03-07 19:04 | XMS_ITS | Encounter Summary ---
Author Organization Formerly [facility] [place] [place] [address] Care Team Providers Care Digital Controls Technical Officer Name Role Phone Nayla Miramontes MD Primary Care Provider [phone] Reason for Referral * Consultation (Routine) - Complete-Ref Provider Notified Specialty Diagnoses / Procedures Referred By Franklin laird Referred To Contact Ophthalmology Diagnoses Type I (juvenile type) diabetes mellitus without mention of complication, uncontrolled Roseanne Kay [facility] [place] [address] [facility] [address] [place] [phone] Referral ID Status Reason Start Date Expiration Date Visits Requested Visits Authorized [id number] Complete-Ref Provider Notified Consult, Test & Treat 01/12/2013 07/11/2013 1 1 * Occupational Medicine (Routine) - Closed Specialty Diagnoses / Procedures Referred By Franklin laird Referred To Contact Occupational Medicine Diagnoses Type I (juvenile type) diabetes mellitus without mention of complication, uncontrolled Roseanne Kay [facility] [place] [address] [facility] Occ Medicine [address] [place] [phone] Referral ID Status Reason Start Date Expiration Date V isits Requested Visits Authorized [id number] Closed Consult, Test & Treat 01/12/2013 07/11/2013 1 1 Reason for Visit * Reason Comments Diabetes Encounter Details Date Type Department Care Team (Late st Contact Info) Description 01/12/2013 3:00 PM EDT Office Visit [place] [address] Roseanne Kay APRN [facility] [place] [address] Type I (juvenile type) diabetes mellitus without mention of complication, uncontrolled (Primary Dx) Discharge Disposition: Home Social History [...] Sign Reading Time Taken Comments Blood Pressure 135/68 01/12/2013 3:22 PM EDT Pulse 78 01/12/2013 3:22 PM EDT Temperature - - Respiratory Rate - - Oxygen Saturation - - Inhaled Oxygen Concentration - - Weight 88.8 kg (195 lb 12.8 oz) 01/12/2013 3:22 PM EDT Height - - Body Mass Index 32.58 07/20/2012 9:18 AM EDT documented in this encounter Patient Instructions * Patient Instructions* Roseanne Kay APRN - 01/12/2013 3:59 PM EDT Annual dentist appointment Referral done for occupational medicine to do disability evaluation Referral done for Dr Hector Norris advanced directives . 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 Also, follow up hypothyroidism, depression, obesity. BRIEF HISTORY: States she has not felt well since labor day, was seen by PCP and advised she had a viral infection. DATE OF DIAGNOSIS OF DIABETES: At age 16. DIABETES REGIMEN: MiniMed insulin pump. Basal rates; 12 a.m. 0.6, 4 a.m. 0.8, 8 a.m. 0.9, 4 p.m. 0.7, 7 p.m. 0.8; total basal 18.9. Total daily doses range from 25.9 to 44.6. Insulin to carb 1:12 at midnight, 1:10 at noon. Correction factor 1:25. Target glucose 95 to 130. 24-HOUR MEAL PLAN: Desires weight loss, has tried Weight Watchers in the past. Breakfast varies, either oatmeal or cereal or toast. Morning snack is crackers. Lunch was soup. Afternoon snack, hummus. Dinner was homemade chicken noodle soup with whole grain bread and a salad. Evening snack varies. 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 REVIEW OF SYSTEMS: Depression and Mood: States her medication for depression is not working recently, still feels depressed, has applied for disability, but was denied. At home is her supportive , and they are raising her 13-year-old granddaughter. She has two grown sons. Eyes: She is due for a follow-up appointment with coater hand, has had extensive laser treatments for diabetic retinopathy. GI Symptoms: Takes medication for GERD, states she thinks she needs a higher dose, she still has symptoms of reflux. Sleep Pattern: States she is tired all the time. She does not think she has sleep apnea. Extremities: Has low back pain, was seen at the spine center in 2012. PHYSICAL EXAMINATION: Appearance: She is overweight with a larger central girth. Weight 195 pounds, she has gained 8 pounds in the past year; blood pressure is at goal. Eyes: Scars noted by green light exam on left, none noted on right. Neck: No thyromegaly or lymphadenopathy. Heart: Regular rate and rhythm. No murmurs. Lungs: Clear to auscultation. Feet: Bunion on left, pulses are normal. Neurologic: Normal sensation to 10 g of pressure. LABORATORY DATA: Several labs were done today, results not available during office visit. Hemoglobin A1c has been in the 8% range for the past year. SBGM: Six times a day. Reason fo rhigher frequency testing is to avoid severe hypoglycemia and severe hyperglycemia. She has widely fluctuating glucose levels DX CODE: 250.53 Hypoglycemia in the past, but not recently, was using the sensor, but did not feel that it was accurate and has stopped using it. IMPRESSION AND PLAN: Diabetes mellitus type 1 with complications. Also, chronic pain from psoriatic arthritis, and back pain. Referral done to schedule follow-up eye exam. Advised annual dentist appointment. Weight gain, advised to resume Weight Watchers meal plan, which she has tried in the past. Unfortunately, she is not able to be physically active related to chronic back pain and joint pain. Encouraged the patient to have evaluation by occupational medicine for disability, referral was done. Chronic fatigue since , plans to follow up with primary care physician. Advised appointment with NIRAV HUNTER . She prefers six-month followups, but she is going to contact [facility] to see if she qualifies for an updated pump that senses low glucose levels. The patient discusses her hospitalization approximately two years ago when she almost , and she wants to avoid another situation like that in the future. Discussed advanced directives, and she plans to have her's scanned into her medical record. This was a 48-minute office visit with 47 minutes spent counseling face to face with the patient in the management of glucose levels, prevention and treatment of hypoglycemia, advised her to bring meter to all appointments. Blood pressure is at goal, follow up after lab results. Return to office in May. Will check hemoglobin A1c, TSH, microalbumin. Schedule appointment with NIRAV HUNTER same day. Recent Results (from the past 72 hour(s)) HEMOGLOBIN A1C Component Value Range Hemoglobin A1C 8.5 (*) 4.3 - 6.1 % Est Avg Gluc 197 TSH Component Value Range TSH 1.08 0.27 - 4.20 mcIU/mL HDL/CHOL PROFILE Component Value Range Chol, Total 167 <=199 mg/dL HDL 70 >=40 mg/dL Chol/HDL Ratio 2.4 LDL CHOLESTEROL, DIRECT Component Value Range LDL Chol Direct 86 <=99 mg/dL MICROALBUMIN, URINE, RANDOM Component Value Range U Creatinine 75 U Ran Malb Conc <3.0 U Ran Malb Calc <4 documented in this encounter Plan of Treatment Upcoming Encounters Date Type Department Care Team (Late st Contact Info) Description 05/17/2024 2:30 PM EST Office Visit [place] [address] Alcides Bonilla MD [facility] [place] [address] 04/06/2049 9:00 AM EST Hospital Encounter [place] [address] Harry Guerrero MD [facility] [place] [address] Scheduled Referrals Name Type Priority Associated Diagnoses Orde r Schedule Referral to Occupational and Environmental Medicine Outpatient Referral Routine Type I (juvenile type) diabetes mellitus without mention of complication, uncontrolled Ordered: 01/12/2013 Referral to Ophthalmology Outpatient Referral Routine Type I (juvenile type) diabetes mellitus without mention of complication, uncontrolled Ordered: 01/12/2013 documented as of this encounter Procedures Procedure Name Priority Date/Time Associated Diagnosis Comments U ALBUMIN/CRE RATIO Routine 01/12/2013 3 :27 PM EDT Type I (juvenile type) diabetes mellitus without mention of complication, uncontrolled TSH Routine 01/12/2013 3:03 PM EDT Type I (juvenile type) diabetes mellitus without mention of complication, uncontrolled LDL CHOLESTEROL, DIRECT Routine 01/12/2013 3:03 PM EDT Type I (juvenile type) diabetes mellitus without mention of complication, uncontrolled HDL/CHOL PROFILE Routine 01/12/2013 3:03 PM EDT Type I (juvenile type) diabetes mellitus without mention of complication, uncontrolled HEMOGLOBIN A1C Routine 01/12/2013 3:03 PM EDT Type I (juvenile type) diabetes mellitus without mention of complication, uncontrolled documented in this encounter Results * Microalbumin, urine, random (05/31/2013 2:35 PM EST) Creatinine, Urine 83 mg/dL CE RNER MILLENNIUM Albumin, Urine 19.5 mg/L CERNE R MILLENNIUM Albumin / Creatinin Ratio, Urine 23 mcg/mg Cr CERNER MILLENNIUM Comment: Reference Range* Random collection (mcg/mg creatinine) Normal ?<30 Microalbuminuria ?? 30 - 300 Clinical Albuminuria ?? >300 *[place] Diabetes Association. Diabetic Nephropathy. Diabetes Care 1997;(Suppl 1):S24-S27 Exercise within 24 hour, infection, fever, CHF, marked hyperglycemia, and marked hypertension may elevate urinary albumin excretion over baseline values. Urine specimen (specimen) 05/31/2013 2:35 PM EST 05/31/2013 2:44 PM EST Narrative Resulting Agency Comment Spec In Lab Darryl Barrera MD URINE ORDERABLES JOHN DE LEON * CBC (with Diff) [...] of variation 13.0 10.9 - 14.4 % CERMAGDALENA EVANSIUM Mean Platelet Volume 9.4 9.0 - 12.0 fL JOHN WALLERENNIUM Blood specimen (specimen) 05/31/2013 2:26 PM EST 05/31/2013 2:43 PM EST Narrative Resulting Agency Comment Spec In Lab Darryl Barrera MD HEMATOLOGY ORDERABLE S Performing Organization Address [facility] Co de Phone Number JOHN DE LEON * LDL Cholesterol, Direct (05/31/2013 2:26 PM EST) LDL Cholesterol, Direct 83 <=99 mg/dL [facility] Comment: The National Cholesterol Education Program (NCEP) has set the following guidelines for LDL Cholesterol: Reference range: ?? Optimal: ?<100 mg/dL ?? Near Optimal/Above Optimal: ?? 100-129 mg/dL ?? Borderline high: ?130-159 mg/dL ?? High: ? 160-189 mg/dL ?? Very high: ?>hw=736 mg/dL MARIANA 2001: 285(19):2013-2443 Blood specimen (specimen) 05/31/2013 2:26 PM EST 05/31/2013 2:43 PM EST Narrative Resulting Agency Comment Spec In Lab Darryl Barrera MD CHEMISTRY ORDERABLES Performing Organization Address [facility] de Phone Number JOHN DE LEON * HDL/Cholesterol Profile (05/31/2013 2:26 PM EST) Cholesterol, Total 163 <=199 mg/dL [facility] Comment: Recommendations of the NCEP Adult Treatment Panel for the following risk cutoff thresholds for the [place] population: Desirable: <200 mg/dL Borderline High: 200-239 mg/dL High: > or = 240 mg/dL HDL Cholesterol 67 >=40 mg/dL [facility] Comment: Reference range: ??Low HDL: ?? < 40 mg/dL ??Normal: ?40-60 mg/dL ??Desirable: > 60 mg/dL MARIANA 2001; 285(19):5552-4496 Cholesterol/HDL Ratio 2.[address] [facility] Comment: A Cholesterol to HDL ratio below 4:1 is desirable. ??Studies suggest that increased CAD risk occurs at ratios above 5 for females and above 6 for men. ? [place] Heart Association ??(http://www.americanheart.org) ? Uma Int Med, 1994; 121:641 ? AM J Med, 1998; 105(1A):48S Blood specimen (specimen) 05/31/2013 2:26 PM EST 05/31/2013 2:43 PM EST Narrative Resulting Agency Comment Spec In Lab Darryl Barrera MD CHEMISTRY ORDERABLES [facility] * VIT D Total Evaluation (05/31/2013 2:26 PM EST) Vitamin D Total 25 OH 30 30 - 100 ng/mL [facility] Comment: Deficient <10 ng/mL Insufficient [...] Barrera MD CHEMISTRY ORDERABLES Performing Organization Address [facility] Co de Phone Number JOHN DE LEON * (ABNORMAL) TSH (05/31/2013 2:26 PM EST) Thyroid Stimulating Hormone 0.17(L) 0.27 - 4.20 mcIU/mL [facility] Blood specimen (specimen) 05/31/2013 2:26 PM EST 05/31/2013 2:43 PM EST Narrative Resulting Agency Comment Spec In Lab Darryl Barrera MD CHEMISTRY ORDERABLES Performing Organization Address [facility] de Phone Number JOHN DE LEON * (ABNORMAL) Hemoglobin A1c (05/31/2013 2:26 PM EST) Hemoglobin A1c 8.7(H) <=5.6 % [facility] Comment: As of 2013 the methodology for [...] 36: Suppl. 1, S67-74 Estimated Average Glucose 203 mg/dL [facility] Comment: eAG equivalents for HbA1c [...] into estimated average glucose values. ??Diabetes Care 2008:31(8):0067-9516. Blood specimen (specimen) 05/31/2013 2:26 PM EST 05/31/2013 2:43 PM EST Narrative Resulting Agency Comment Spec In Lab Darryl Barrera MD CHEMISTRY ORDERABLES [facility] * Comprehensive metabolic panel (non-fasting) (05/31/2013 2:26 PM EST) [facility] Glucose 152 60 - 199 mg/dL CERNER MILLENNIUM Comment:Diabetes: >=200 mg/d L plus symptoms Blood Urea Nitrogen 9 8 - 18 mg/dL CERNER MILLENNIUM Creatinine 0.92 0.70 - 1.20 mg/dL CERNER MILLENNIUM Comment: Please note that the pediatric reference intervals supplied above were not validated at [facility]. Results from pediatric patients should be interpreted [...] Barrera MD CHEMISTRY ORDERABLES CERNER MILLENNIUM * Microalbumin, urine, random (01/12/2013 3:27 PM EDT) Creatinine, Urine 75 mg/dL CE RNER MILLENNIUM Albumin, Urine <3.0 mg/L CERNE R MILLENNIUM Comment:result rechecked-NM Albumin / Creatinin Ratio, Urine <4 mcg/mg Cr CERNER MILLENNIUM Comment: Reference Range* Random collection (mcg/mg creatinine) Normal ?<30 Microalbuminuria ?? 30 - 300 Clinical Albuminuria ?? >300 *[place] Diabetes Association. Diabetic Nephropathy. Diabetes Care 1997;(Suppl 1):S24-S27 Exercise within 24 hour, infection, fever, CHF, marked hyperglycemia, and marked hypertension may elevate urinary albumin excretion over baseline values. Urine specimen (specimen) 01/12/2013 3:27 PM EDT 01/12/2013 3:42 PM EDT Narrative Resulting Agency Comment Spec In Lab Darryl Barrera MD URINE ORDERABLES Performing Organization Address [facility] de Phone Number [facility] * LDL Cholesterol, Direct (01/12/2013 3:03 PM EDT) LDL Cholesterol, Direct 86 <=99 mg/dL [facility] Comment: The National Cholesterol Education Program (NCEP) has set the following guidelines for LDL Cholesterol: Reference range: ?? Optimal: ?<100 mg/dL ?? Near Optimal/Above Optimal: ?? 100-129 mg/dL ?? Borderline high: ?130-159 mg/dL ?? High: ? 160-189 mg/dL ?? Very high: ?>gb=586 mg/dL MARIANA 2001: 285(19):7793-0672 Blood specimen (specimen) 01/12/2013 3:03 PM EDT 01/12/2013 3:11 PM EDT Narrative Resulting Agency Comment Spec In Lab Darryl Barrera MD CHEMISTRY ORDERABLES Performing Organization Address [facility] de Phone Number [facility] * HDL/Cholesterol Profile (01/12/2013 3:03 PM EDT) Cholesterol, Total 167 <=199 mg/dL [facility] Comment: Recommendations of the NCEP Adult Treatment Panel for the following risk cutoff thresholds for the [place] population: Desirable: <200 mg/dL Borderline High: 200-239 mg/dL High: > or = 240 mg/dL HDL Cholesterol 70 >=40 mg/dL [facility] Comment: Reference range: ??Low HDL: ?? < 40 mg/dL ??Normal: ?40-60 mg/dL ??Desirable: > 60 mg/dL MARIANA 2001; 285(19):1866-1922 Cholesterol/HDL Ratio 2.4 ratio [facility] Comment: A Cholesterol to HDL ratio below 4:1 is desirable. ??Studies suggest that increased CAD risk occurs at ratios above 5 for females and above 6 for men. ? [place] Heart Association ??(http://www.americanheart.org) ? Uma Int Med, 1994; 121:641 ? AM J Med, 1998; 105(1A):48S Blood specimen (specimen) 01/12/2013 3:03 PM EDT 01/12/2013 3:11 PM EDT Narrative Resulting Agency Comment Spec In Lab Darryl Barrera MD CHEMISTRY ORDERABLES Performing Organization Address [facility] Co de Phone Number [facility] * TSH (01/12/2013 3:03 PM EDT) Thyroid Stimulating Hormone 1.08 0.27 - 4.20 mcIU/mL [facility] Blood specimen (specimen) 01/12/2013 3:03 PM EDT 01/12/2013 3:11 PM EDT Narrative Resulting Agency Comment Spec In Lab Darryl Barrera MD CHEMISTRY ORDERABLES Performing Organization Address [facility] Co de Phone Number [facility] * (ABNORMAL) Hemoglobin A1c (01/12/2013 3:03 PM EDT) Hemoglobin A1c 8.5(H) 4.3 - 6.1 % [facility] Comment: The [place] Diabetes Association (ADA) has stated that HbA1c [...] 2013:36;suppl 1:S11-S66. Estimated Average Glucose 197 mg/dL [facility] Comment: eAG equivalents for HbA1c [...] into estimated average glucose values. ??Diabetes Care 2008:31(8):4447-5995. Blood specimen (specimen) 01/12/2013 3:03 PM EDT 01/12/2013 3:11 PM EDT Narrative Resulting Agency Comment Spec In Lab Darryl Barrera MD CHEMISTRY ORDERABLES [facility] documented in this encounter Visit Diagnoses Diagnosis Type I (juvenile type) diabetes mellitus without mention of complication, uncontrolled- Primary documented in this encounter Care Teams Digital Controls Technical Officer Relationship Specialty Start Date End Date Nayla Miramontes MD [address] [place] [address] PCP - General 05/21/11 05/10/21 documented as of this encounter
--- OUTSIDE RECORDS SUMMARY | 2024-03-07 19:04 | XMS_ITS | Encounter Summary ---
Author Organization [facility] Address [facility] [place] [address] Care Team Providers Care Forest Fire Fighters Dispatcher Name Role Phone Nayla Miramontes MD Primary Care Provider [phone] Reason for Visit * Reason Comments Eye Problem The patient presents for consideration of vitrectomy surgery in the left eye. CBC in Diabetes sent by dr. orourke for ?vitrectomy Encounter Details Date Type Department Care Team (Late st Contact Info) Description 01/13/2012 9:45 AM EDT Office [place] [address] Dany Young MD [facility] [address] Cortical cataract; Diabetic retinopathy associated with type 1 diabetes mellitus; Retinal neovascularization of right eye; Vitreous hemorrhage of left eye Discharge Disposition: [...] Progress Notes * Dany Young MD - 02/01/2012 10:32 PM EDT Patient demonstrates a nonclearing vitreous hemorrhage but no tractional detachment is ascertained.Strong consideration should be given to vitrectomy surgery or close observation with ultrasonography documented in this encounter Nursing Notes * 01/13/2012 9:45 AM EDT >> MD Latosha MARQUEZ Feb 01, 2012 10:33 PM The patient is status post laser photocoagulation manifests a persistent vitreous hemorrhage in theleft eye which has been present for at least several months. Patient denies any appreciable improvement. She denies any pain or other associated or other modifying factors at this time. Her vision inthe left eye might be slightly better with respect to peripheral vision only. She is also currentlyon an insulin pump CBC MD >> AURE Corado Jan 13, 2012 10:20 AM Pt states she can see a little bit better with OS. No changes in vision with OD [id number] this AM. Pt is on a pump. Last A1C was 8.3 about 2 months ago. Pt thinks she coming down with something. documented in this encounter Plan of Treatment Upcoming Encounters Date Type Department Care Team (Late st Contact Info) Description 05/17/2024 2:30 PM EST Office [place] [address] Alcides Bonilla MD [facility] [place] [place] [address] 04/06/2049 9:00 AM EST Hospital Encounter [place] [address] Harry Guerrero MD [facility] [place] [address] documented as of this encounter Visit Diagnoses Diagnosis Cortical cataract Other cataract Diabetic retinopathy associated with type 1 diabetes mellitus Type I (juvenile type) diabetes mellitus with ophthalmic manifestations, not stated as uncontrolled Retinal neovascularization of right eye Retinal neovascularization NOS Vitreous hemorrhage of left eye Vitreous hemorrhage documented in this encounter Care Teams [employer] Dispatcher Relationship Specialty Start Date End Date Nayla Miramontes MD [facility] [address] [place] [address] PCP - General 05/21/11 05/10/21 documented as of this encounter
--- OUTSIDE RECORDS SUMMARY | 2024-03-07 19:04 | XMS_ITS | Encounter Summary ---
Author Organization [facility] [address] Care Team Providers Care Landing Worker Name Role Phone Nayla Miramontes MD Primary Care Provider [phone] Encounter Details Date Type Department Care Team (Late Contact Info) Description 10/14/2012 Telephone [place] [address] Lyubov Hutton RN Social History Tobacco Use Types Packs/Day [...] Telephone Encounter - Lyubov Hutton RN - 10/14/2012 3:29 PM EDT Faxed letter and form for SSDI process to [facility]. documented in this encounter Plan of Treatment Upcoming Encounters Date Type Department Care Team (Late Contact Info) Description 05/17/2024 2:30 PM EST Office [place] [address] Alcides Bonilla MD [facility] [place] [address] 04/06/2049 9:00 AM EST Hospital En[place] [address] Harry Guerrero MD [facility] [place] [address] documented as of this encounter Visit Diagnoses Not on filedocumented in this encounter Care Teams Landing Worker Relationship Specialty Start Date End Date Nayla Miramontes MD [facility] ANABELLA LÓPEZ [facility] [address] [place] [address] PCP - General 05/21/11 05/10/21 documented as of this encounter
--- OUTSIDE RECORDS SUMMARY | 2024-03-07 19:04 | XMS_ITS | Encounter Summary ---
Author Organization Formerly [facility] [place] [address] Care Team Providers Care Digital Account Supervisor Name Role Phone Nayla Miramontes MD Primary Care Provider [phone] Reason for Visit * Reason Onset Date Comments Other 07/07/2011 Encounter Details Date Type Department Care Team (Late st Contact Info) Description 07/07/2011 [place] [address] Melisa Sales [facility] [place] [address] Other Social History Tobacco Use Types Packs/Day Years [...] encounter Miscellaneous Notes * Telephone Encounter - Melisa Sales RN - 07/07/2011 8:43 AM EDT [employer] called and they said that they faxed scripts for Dr. Feng or Dr. Wing on 06/15 and 06/19 for the pump and sensor and they didn't receive them back signed. Have you seen this? documented in this encounter Plan of Treatment Upcoming Encounters Date Type Department Care Team (Late st Contact Info) Description 05/17/2024 2:30 PM EST Office [place] [address] Alcides Bonilla MD [facility] [place] [address] 04/06/2049 9:00 AM EST Hospital [place] [phone] Harry Guerrero MD [facility] [place] [address] documented as of this encounter Visit Diagnoses Not on filedocumented in this encounter Care Teams Digital Account Supervisor Relationship Specialty Start Date End Date Nayal Miramontes MD [facility] ANABELLA LÓPEZ [facility] [address] [place] [address] PCP - General 05/21/11 05/10/21 documented as of this encounter
--- OUTSIDE RECORDS SUMMARY | 2024-03-07 19:04 | XMS_ITS | Encounter Summary ---
Author Organization [facility] [place] [address] Care Team Providers Care Engineering Specialist Technician Name Role Phone Nayla Miramontes MD Primary Care Provider [phone] Reason for Visit * Reason Onset Date Comments Other 06/26/2011 Encounter Details Date Type Department Care Team (Late st Contact Info) Description 06/26/2011 Tele[place] [address] Melisa Sales [facility] [place] [address] Other Social History Tobacco Use Types Packs/Day [...] Telephone Encounter - Melisa Sales RN - 06/26/2011 11:38 AM EDT [employer] has faxed 2 forms (scripts) for you to sign for the real time system (sensor) and pump. Would you sign one of these and fax it to them? Questions, call ext [phone] documented in this encounter Plan of Treatment Upcoming Encounters Date Type Department Care Team (Late st Contact Info) Description 05/17/2024 2:30 PM EST Office [place] [address] Alcides Bonilla MD [facility] [place] [address] 04/06/2049 9:00 AM EST Hospital En[place] [phone] Harry Guerrero MD [facility] [place] [address] documented as of this encounter Visit Diagnoses Not on filedocumented in this encounter Care Teams Engineering Specialist Technician Relationship Specialty Start Date End Date Nayla Miramontes MD [facility] ANABELLA LÓPEZ [facility] [address] [place] [address] PCP - General 05/21/11 05/10/21 documented as of this encounter
--- OUTSIDE RECORDS SUMMARY | 2024-03-07 19:04 | XMS_ITS | Encounter Summary ---
Author Organization [facility]ly [facility] [place] [address] Care Team Providers Care Charge Histotechnologist Name Role Phone Nayla Miramontes MD Primary Care Provider [phone] Reason for Visit * Reason Onset Date Comments Labs Only 12/19/2011 Encounter Details Date Type Department Care Team (Late Contact Info) Description 12/19/2011 Telephone [place] [phone] Iron Wing MD [facility] DR [place] [address] Labs Only Social History Tobacco Use Types Packs/Day [...] 2:30 PM EST Office Visit [place] [phone] Alcides Bonilla MD [facility] [place] [address] 04/06/2049 9:00 AM EST Hospital Encounter [place] [address] Harry Guerrero MD [facility] DR [place] [address] documented as of this encounter Visit Diagnoses Diagnosis Type 1 diabetes mellitus Type I (juvenile type) diabetes mellitus without mention of complication, not stated as uncontrolled PDR (proliferative diabetic retinopathy) Type II or unspecified type diabetes mellitus with ophthalmic manifestations, not stated as uncontrolled documented in this encounter Care Teams Charge Histotechnologist Relationship Specialty Start Date End Date Nayla Miramontes MD [address] [place] [address] [facility] [address] [place] [address] PCP - General 05/21/11 05/10/21 documented as of this encounter
--- OUTSIDE RECORDS SUMMARY | 2024-03-07 19:04 | XMS_ITS | Encounter Summary ---
Author Organization [facility] [place] [address] Care Team Providers Care Employee Relations Specialist Name Role Phone Nayla Miramontes MD Primary Care Provider [phone] Reason for Visit * Reason Onset Date Comments Medication Refill 07/19/2012 Encounter Details Date Type Department Care Team (Late Contact Info) Description 07/19/2012 [place] [address] Darryl Burgos MD [facility] DR RHEUMATOLOGY [place] [address] Social History Tobacco Use Types Packs/Day Years [...] 2:30 PM EST Office [place] [phone] Alcides Bonilla MD [facility] [place] [address] 04/06/2049 9:00 AM EST Hospital Encounter [place] [address] Harry Guerrero MD [facility] DR GASTROENTEROLOGY [place] [address] documented as of this encounter Visit Diagnoses Not on filedocumented in this encounter Care Teams Employee Relations Specialist Relationship Specialty Start Date End Date Nayla Miramontes MD [facility] ANABELLA LÓPEZ [facility] [address] [place] [address] PCP - General 05/21/11 05/10/21 documented as of this encounter
--- OUTSIDE RECORDS SUMMARY | 2024-03-07 19:04 | XMS_ITS | Encounter Summary ---
Author Organization Replaced By [facility] Address [facility] [place] [address] Care Team Providers Care Optical Glass Etcher Name Role Phone Nayla Miramontes MD Primary Care Provider [phone] Encounter Details Date Type Department Care Team (Late st Contact Info) Description 04/27/2012 3:00 PM EST - 04/27/2012 3:30 PM EST [place] [address] Lay Bucio MD [facility] DR [place] [address] UPPER GASTROINTESTINAL ENDOSCOPY,WITH BIOPSY SINGLE OR MULTIPLE (WRVU 2.39) Social History Tobacco Use Types [...] Sign Reading Time Taken Comments Blood Pressure 132/69 04/27/2012 3:30 PM EST Pulse 59 04/27/2012 3:30 PM EST Temperature - - Respiratory Rate 9 04/27/2012 3:30 PM EST Oxygen Saturation 95% 04/27/2012 3:30 PM EST Inhaled Oxygen Concentration - - Weight - - Height - - Body Mass Index - - documented in this encounter Discharge Instructions * Discharge Instructions* Clara Bond RN - 04/27/2012 4:02 PM EST You may have received medication before and/or during your procedure, which affects judgement and reaction time. Do not drive, operate machinery, drink alcoholic beverages, or make important decisions for 24 hours. Be careful on stairs, as you may be unsteady on your feet. You may eat a regular diet as tolerated. Do not smoke if you are alone. IV site -- slight redness, or tenderness is normal, you can use a warm compress. If tenderness and redness increases or foul drainage occurs, please contact your M. D. Please call [phone], before 5pm with problems, questions or concerns, after 5pm call the Hospital at [phone] and ask to speak to the Manager Business Intelligence sterilization tech and the bulk station operator will contactthat person for you. Discharge instructions reviewed with patient who expresses understanding. * Attachments The following attachments cannot be sent through Care Everywhere. * UPPER GI ENDOSCOPY: WHAT TO EXPECT AT HOME (VIET[place]ESE) documented in this encounter Medications at Time of Discharge Medication Sig Dispensed Refills Start Date End Date MULTI-VITAMIN ORAL Take 1 tablet by mouth daily. Reported on 05/26/2016 gabapentin (NEURONTIN) 400 mg capsule Take 1 capsule by mouth nightly. 60 capsule 3 12/15/2011 05/10/2012 hydroxychloroquine (PLAQUENIL) 200 mg tablet Take 1 tablet by mouth 2 times daily. 120 tablet 2 12/15/2011 05/10/2012 ferrous sulfate 324 mg (65 mg iron) TbE Take 324 mg by mouth daily. 08/25/2013 methotrexate 2.5 mg tablet Take 8 tablets by mouth once a week. 32 tablet 2 10/13/2011 05/10/2012 Diabetic Supplies, Miscellan. MiscIndications:Jaleesa betes mellitus 1 each by Misc.(Non-Drug; Combo Route) route 6 times daily. Diagnosis: 250.91 Change infusion sets every 3 days Manually fax to [facility] 600 each 3 05/30/2011 07/03/2014 insulin [...] 0.5 tablets by mouth daily. 04/29/2011 12/08/2013 lansoprazole (PREVACID) 30 mg capsule Take 1 capsule by mouth 2 times daily (before meals). Take 30 minutes before breakfast and dinner. 120 capsule 0 04/29/2011 02/23/2013 melatonin 3 mg Tab Take 9 mg by mouth nightly. 03/06/2017 ESCITALOPRAM OXALATE (LEXAPRO ORAL) Take 40 mg by mouth daily. 10/25/2013 insulin lispro (HUMALOG) 100 unit/mL injection Inject subcutaneously. 5-16 units 3 times daily and as needed 11/14/2013 [facility] - Insulin Pump Supplies Infusion Sets, Reservoirs, etc, Misc, q 3 days 06/17/2010 07/20/2012 [facility] - BD Logic teststrips as directed, Misc, eight times daily 06/17/2010 07/20/2012 [facility] - BD Logic lancets as directed, Top, eight times daily 06/17/2010 07/20/2012 levothyroxine (SYNTHROID) 75 mcg tablet 150 MCG = 1 Tablet(s), PO, Once daily 06/17/2010 01/12/2013 folic acid (FOLVITE) 1 mg tablet 1 MG = 1 Tablet(s), PO, Once daily 06/17/2010 02/23/2013 documented as of this encounter H&P Notes * Lay Bucio MD - 04/27/2012 3:27 PM EST Gastroenterology & Hepatology Pre-Procedure History and Physical Procedure:EGD Indication: GERD, BE History of Present Illness: Pleasant 56F with GERD, BE. Taking Prevacid daily without chest pain, dysphagia PMH: Patient Active Problem List Diagnoses Code ??? Diabetes mellitus 250.00 ??? Hypertension 401.9 ??? Hyperlipidemia 272.4 ??? Hypothyroidism 244.9 ??? Psoriasis 696.1 ??? Depression 311 ??? Iron deficiency 275.09 ??? Asthma 493.90 ??? Microcytic anemia 280.9 ??? GERD (gastroesophageal reflux disease) 530.81 ??? Giron's esophagus 530.85 ??? Diabetic retinopathy associated with type 1 diabetes mellitus 250.51 ??? DKA (diabetic ketoacidoses) 250.10 ??? Reflux esophagitis 530.11 ??? Gastritis 535.50 ??? Anasarca 782.3 ??? Cortical cataract 366.8 ??? 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 Vitreous hemorrhage of left eye 379.23 ??? PSC (posterior subcapsular cataract), bilateral 366.9 ??? Type 1 diabetes mellitus 250.01 ??? PDR (proliferative diabetic retinopathy) 250.50 ??? Nuclear sclerosis 366.16 ??? Proliferative diabetic retinopathy of both eyes.-mild resolving bilateral vitreous hemorrhages.No traction. Good PRP. 250.50 ??? Psoriatic arthritis.currently on Hydroxychloroquine. No signs of hydroxychloroquine retinopathy. Recommend close followup. 696.0 Medications: No current facility-administered medications on file prior to encounter. Current Outpatient Prescriptions on File Prior to Encounter Medication Sig Dispense Refill ??? gabapentin (NEURONTIN) 400 mg capsule Take 1 capsule by mouth nightly. 60 capsule 3 ??? hydroxychloroquine (PLAQUENIL) 200 mg tablet Take 1 tablet by mouth 2 times daily. 120 tablet 2 ??? ferrous sulfate 324 mg (65 mg iron) TbEC Take 324 mg by mouth daily. ??? methotrexate 2.5 mg tablet Take 8 tablets by mouth once a week. 32 tablet 2 ??? insulin glargine (LANTUS) 100 unit/mL vial injection Inject 18 Units subcutaneously daily. 1 vial = 10ml = 1,000 units Indications: Type 1 Diabetes Mellitus 10 mL 5 ??? lisinopril (PRINIVIL;ZESTRIL) 20 mg tablet Take 0.5 tablets by mouth daily. ??? lansoprazole (PREVACID) 30 mg capsule Take 1 capsule by mouth 2 times daily (before meals). Take 30 minutes before breakfast and dinner. 120 capsule 0 ??? ESCITALOPRAM OXALATE (LEXAPRO ORAL) Take 40 mg by mouth daily. ??? insulin lispro (HUMALOG) 100 unit/mL injection Inject subcutaneously. 5-16 units 3 times daily and as needed ??? MULTI-VITAMIN ORAL Take 1 tablet by mouth daily. ??? levothyroxine (SYNTHROID) 75 mcg tablet 150 MCG = 1 Tablet(s), PO, Once daily ??? folic acid (FOLVITE) 1 mg tablet 1 MG = 1 Tablet(s), PO, Once daily ??? Diabetic Supplies, Miscellan. Misc 1 each by Misc.(Non-Drug; Combo Route) route 6 times daily. Diagnosis: 250.91 Change infusion sets every 3 days Manually fax to [facility] 600 each 3 ??? pramlintide (SYMLINPEN 60) 1,500 mcg/1.5 mL injection Inject 60 mcg subcutaneously 3 times daily (before meals). 5.4 mL 3 ??? melatonin 3 mg Tab Take 3 mg by mouth nightly. ??? [facility] Free Text Med - Insulin Pump Supplies Infusion Sets, Reservoirs, etc, Misc, q 3 days ??? [facility] Free [facility] Med - BD Logic teststrips as directed, Misc, eight times daily ??? [facility] Free [facility] Med - BD Logic lancets as directed, Top, eight times daily Allergies: Allergies Allergen Reactions ??? Codeine Phosphate ??? Propoxyphene N-Acetaminophen Exam: Patient Vitals for the past 24 hrs: BP Pulse Resp SpO2 04/27/12 1526 - 71 - - 04/27/12 1509 121/64 mmHg 66 16 96 % Airway examined Chest- clear Heart- RRR, nl s1, s2 Abdomen- normal bowel sounds, soft, non tender Assessment and Plan: Pleasant 56F here for EGD. Conscious sedation. Risks and benefits of the procedure were discussed with the patient. Consent has been signed. documented in this encounter Miscellaneous Notes * Miscellaneous - Provider, Scanning - 04/28/2012 11:05 AM EST * Op Note - Lay Bucio MD - 04/28/2012 10:31 AM EST Full procedure note is documented under the Procedure section of eD. * Miscellaneous - Provider, Scanning - 04/27/2012 9:35 PM EST documented in this encounter Plan of Treatment Upcoming Encounters Date Type Department Care Team (Late st Contact Info) Description 05/17/2024 2:30 PM EST Office [place] [address] Alcides Bonilla MD [facility] [place] [address] 04/06/2049 9:00 AM EST Hospital En[place] [address] Harry Guerrero MD [facility] DR [place]STR[place]ENTER[place] [address] documented as of this encounter Procedures Procedure Name Priority Date/Time Associated Diagnosis Comments SURGICAL PATHOLOGY REPORT Routine 04/27/2012 4:27 PM EST POCT GLUCOSE Routine 04/27/2012 3:59 PM EST SPECIMEN TO PATHOLOGY Routine 04/27/2012 3:48 PM EST SPECIMEN TO PATHOLOGY Routine 04/27/2012 3:48 PM EST UPPER GASTROINTESTINAL ENDOSCOPY,WITH BIOPSY SINGLE OR MULTIPLE (WRVU 2.39) 04/27/2012 3:24 PM EST BARRETTS FOLLOW UP POCT GLUCOSE Routine 04/27/2012 3:08 PM EST UPPER GI ENDOSCOPY Routine 04/27/2012 3: 05 PM EST documented in this encounter Results * Surgical Pathology Report (04/27/2012 4:27 PM EST) Surgical Pathology Report ? [facility] ? Provider: ?? LAY BUCIO ?Pt. Name: ?? BETTIE SANDOVALROXANN GEORGES ? Acc #: ?[id number] ?Pt. ? Col Date: ?? 04/27/2012 ? /Sex: ?1955,(56 years),Female ? Rec Date: ?? 04/27/2012 ? LOC: ?4T ? SURGICAL PATHOLOGY ? ---Pathologic Diagnosis--- ? Endoscopic biopsies - ? A. Gastric fundic gland polyps. ? B. Squamous esophageal and cardiac mucosa with metaplastic goblet cells, ? consistent with Giron metaplasia if supported by corresponding endoscopic ? findings. No dysplasia is seen. ? CR-0 ? 04/29/12 ? AAS ? 04/29/12 Verified by: ? Delbert Faye MD ? Pathologist ? (Electronic Signature) ? The attending pathologist whose signature appears on this report has ? reviewed all diagnostic slides and has edited the gross and/or ? microscopic portion of the report in rendering the final pathologic ? diagnosis. ? ---Microscopic Description--- ? Slides reviewed, microscopic description not recorded. ? ---Gross Description--- ? A - Labeled/Fixative: Gastric polyps, formalin. ? Qty/Size/Weight: ?Two, 0.3 cm and 0.4 cm in ? greatest dimension. ? Tissue Description: ?? Soft, brandon tissues. ? Sections/Processi ng: ??(T1) ? B - Labeled/Fixative: Distal esophagus ? islands of Giron's, ? formalin. ? Qty/Size/Weight: ?Multiple, ranging from 0.2 cm to 0.4 cm in ? greatest dimension. ? Tissue Description: ?? Soft, brandon tissues. ? Sections/Processi ng: ??(T2) ??vms/EJR ? ---Clinical Information--- ? Specimen Submitted: ? A - Gastric polyps ? B - Distal esophagus, ? islands of Giron's ? [facility] ? Provider: ?? LAY BUCIO ?Pt. Name: ?? ROXANN LANE ? Acc #: ?[id number] ?Pt. ? Col Date: ?? 04/27/2012 ? /Sex: ?1955,(56 years),Female ? Rec Date: ?? 04/27/2012 ? LOC: ?4T ? SURGICAL PATHOLOGY ? Clinical History/Diagnosis : ? [facility] 04/27/2012 4:27 PM EST Lay Bucio MD PATHOLOGY/CYTOLOGY O RDERABLES Performing Organization Address [facility]/ZIP Co de Phone Number [facility] * POCT Glucose (04/27/2012 3:59 PM EST) Glucose, POC 123 60 - 199 mg/dL [facility] Comment: Supplemental ranges: <110 mg/dL before meals <200 mg/dL all other times of the day Blood specimen (specimen) 04/27/2012 3:59 PM EST 04/27/2012 3:59 PM EST Darryl Gomes MD POINT OF CARE TE ST ORDERABLES Performing Organization Address [facility] Co de Phone Number [facility] * Specimen to Pathology (surgical or derm) (04/27/2012 3:48 PM EST) AP Specimen 04/27/2012 3:48 PM EST 04/27/2012 3:48 PM EST Narrative [facility] - 04/27/2012 3:48 PM EST Specimen requisition ordered. ??Separate Pathology report to follow Lay Bucio MD PATHOLOGY/CYTOLOGY O RDERARADHA Performing Organization Address [facility] Co de Phone Number [facility] * Specimen to Pathology (surgical or derm) (04/27/2012 3:48 PM EST) AP Specimen 04/27/2012 3:48 PM EST 04/27/2012 3:48 PM EST Narrative [facility] - 04/27/2012 3:48 PM EST Specimen requisition ordered. ??Separate Pathology report to follow Lay Bucio MD PATHOLOGY/CYTOLOGY O RDERARADHA Performing Organization Address [facility] Co de Phone Number [facility] * POCT Glucose (04/27/2012 3:08 PM EST) Glucose, POC 93 60 - 199 mg/dL [facility] Comment: Supplemental ranges: <110 mg/dL before meals <200 mg/dL all other times of the day Blood specimen (specimen) 04/27/2012 3:08 PM EST 04/27/2012 3:08 PM EST Darryl Gomes MD POINT OF CARE TE ST ORDERABLES Performing Organization Address City/State/ZIP Co ny Phone Number [facility] * UPPER GI ENDOSCOPY (04/27/2012 3:05 PM EST) Pathologist [facility] UPPER GI ENDOSCOPY [facility] Patient Name: Roxann Garner ? Procedure Date: 04/27/2012 3:05 PM ? N: [id number] ? Date of : 1955 ? Age: 56 ? Order #: [id number] ? Procedure: ? Upper GI endoscopy Indications: ? Follow-up of Giron's esophagus Providers: ? Ann Ordaz, ELSA, Hortencia ? Nati, Workday Senior Associate, Lay Cross ? MD Rupinder Referring MD: ?Nayla Miramontes MD Medicines: ? Midazolam 3 mg IV, Fentanyl 150 ? micrograms IV [...] proposed procedure were verified by ? the physician and the nurse in the ? procedure room. Mental Status ? Examination: alert and oriented. ? Airway Examination: normal ? oropharyngeal airway and neck ? mobility. Respiratory Examination: ? clear to auscultation. CV ? Examination: normal. Prophylactic ? Antibiotics: The patient does not ? require prophylactic antibiotics. ? Prior Anticoagulants: The patient has ? taken no previous anticoagulant or ? antiplatelet agents. ASA Grade ? Assessment: III - A patient with ? severe systemic disease. After ? reviewing the risks and benefits, the ? patient was deemed in satisfactory ? condition to undergo the procedure. ? The anesthesia plan was to use ? moderate sedation / analgesia ? (conscious sedation). Immediately ? prior to administration of ? medications, the patient was ? re-assessed for [...] the ? mouth, and advanced to the second ? part of duodenum. The patient ? tolerated the procedure well. The ? upper GI endoscopy was accomplished ? without difficulty. ? Findings: ? The Z-line was variable and was found 33 cm from the ? incisors, there was a possible island of Giron's ? esophagus. Biopsies were taken with a cold forceps ? for histology. A 5 cm hiatus hernia was present. ? Multiple pedunculated and sessile polyps with no ? stigmata of recent bleeding were found in the gastric ? body. Biopsies were taken with a cold forceps for ? histology. The examined duodenum was normal. Food ? (residue) was found in the gastric body. ? Impression: ?- Z-line variable, 33 cm from the ? incisors. Possible islands of ? Giron's, this was biopsied. ? - Hiatus hernia. ? - Multiple gastric polyps. This was ? biopsied. ? - Food in the stomach likely due to ? diabetic gastroparesis ? - Normal examined duodenum. Recommendation: ?- Await pathology results. ? - Continue present medications. ? - Continue tight glucose control. ? _ Lay Bucio MD 04/27/2012 4:07 PM Number of Addenda: 0 Note Initiated On: 04/27/2012 3:05 PM PROVATION 04/27/2012 3:05 PM EST Nayla Miramontes MD GENERAL SURGICAL ORD ERABLES PROVATION documented in this encounter Visit Diagnoses Not on filedocumented in this encounter Administered Medications Inactive Administered Medications - up to 3 most recent administrations Medication Order MAR Action Action Date Dose Rate Site dextrose 5% and sodium chloride 0.45% infusion CONTINUOUS PRN, Starting on Thu04/27/12 at 1525, Until Thu04/27/12 at 1900, Intra-Operative (Intra-Procedure) New Bag 04/27/2012 3:27 PM EST 50 mL/hr 50 mL/hr fentaNYL 50mcg/mL injection ONCE PRN, Starting on Thu04/27/12 at 1527, Until Thu04/27/12 at 1900, Pain, Intra-Operative (Intra-Procedure), Routine Given 04/27/2012 3:38 PM EST 50 mcg Given 04/27/2012 3:27 PM EST 100 mcg midazolam (VERSED) injection ONCE PRN, Starting on Thu04/27/12 at 1527, Until Thu04/27/12 at 1900, Sleep, Intra-Operative (Intra-Procedure), Routine Given 04/27/2012 3:38 PM EST 1 mg Given 04/27/2012 3:27 PM EST 2 mg documented in this encounter Active and Recently Administered Medications Times are shown in EST. PRN Medication Order 04/25/2012 04/26/2012 04/27/2012 dextrose 5% and sodium chloride 0.45% infusion (CANCELED) CONTINUOUS PRN, Starting on Thu04/27/12 at 1525, Until Thu04/27/12 at 1900, Intra-Operative (Intra-Procedure) 1527 (New Bag - Prov ider: Ann Ordaz RN - Comment: finger stick glucose 93) fentaNYL 50mcg/mL injection (CANCELED) ONCE PRN, Starting on Thu04/27/12 at 1527, Until Thu04/27/12 at 1900, Pain, Intra-Operative (Intra-Procedure), Routine 1527 (Given - Provid er: Ann Ordaz RN)1538 (Given - Provider: Ann Ordaz RN) midazolam (VERSED) injection (CANCELED) ONCE PRN, Starting on Thu04/27/12 at 1527, Until Thu04/27/12 at 1900, Sleep, Intra-Operative (Intra-Procedure), Routine 1527 (Given - Provid er: Ann Ordaz RN)1538 (Given - Provider: Ann Ordaz RN) documented in this encounter Care Teams Optical Glass Etcher Relationship Specialty Start Date End Date Nayla Miramontes MD [facility] [address] [place] [address] PCP - General 05/21/11 2 documented as of this encounter
--- OUTSIDE RECORDS SUMMARY | 2024-03-07 19:04 | XMS_ITS | Encounter Summary ---
[place] [address] Care Team Providers Care Critical Care Technician Name Role Phone Nayla Miramontes MD Primary Care Provider Reason for Visit * Reason Onset Date Comments Other 07/13/2012 ? Flare Encounter Details Date Type Department Care Team (Late st Contact Info) Description 07/13/2012 Telephone [place] [phone] Lyubov Hutton RN Other (? Flare) Social History Tobacco Use Types Packs/Day Years [...] Telephone Encounter - Lyubov Hutton RN - 07/19/2012 12:59 PM EDT Rx for Flexeril jah and Roxann is aware. * Telephone Encounter - Lyubov Hutton RN - 07/13/2012 3:51 PM EDT Complaining of low back pain, MARVIN that she is aware of. She has taken 400 mg of Neurontin at bedtime, with minimal relief on several occasions. She feels tightening on her Left side that seems intermittent. Sounds like she may be having spasms in her back. NKDA that she is aware of. May benefit from Cyclobenzaprine. Will check with Dr. Burgos. * Telephone Encounter - Lyubov Hutton RN - 07/13/2012 8:57 AM EDT Message left for Roxann to call back. documented in this encounter Plan of Treatment Upcoming Encounters Date Type Department Care Team (Late st Contact Info) Description 05/17/2024 2:30 PM EST Office Visit [place] [address] Alcides Bonilla MD [facility] [place] [address] 04/06/2049 9:00 AM EST Hospital Encounter [place] [address] Harry Guerrero MD [facility] [address] [place] [address] documented as of this encounter Visit Diagnoses Not on filedocumented in this encounter Care Teams Critical Care Technician Relationship Specialty Start Date End Date Nayla Miramontes MD [address] [place] [address] PCP - General 05/21/11 05/10/21 documented as of this encounter
--- OUTSIDE RECORDS SUMMARY | 2024-03-07 19:04 | XMS_ITS | Encounter Summary ---
Author Organization [facility] Address [facility] [facility] [place] [address] Care Team Providers Care Rn Case Manager Hospice Name Role Phone Nayla Miramontes MD Primary Care Provider [phone] Reason for Visit * Reason Comments Diabetes Last Ha1c 8.1 (), FBS 200+ today, Hx PDR, Hx laser ou, Pt returns for poss. procedure OS, but new [facility] changes OD Spots and/or Floaters Pt reports new jordan aters in OD, started last night @6pm Encounter Details Date Type Department Care Team (Late st Contact Info) Description 07/10/2011 8:15 AM EDT [place] [address] Sosa Hewitt MD PDR (proliferative diabetic retinopathy) [...] Progress Notes * Sosa Hewitt MD - 07/10/2011 9:20 AM EDT OU: early cataracts OU: PDR OU: vit heme OU: post PRP Imp: OS has baseline poor vision, even with Or without vit heme. Therefore only observation for OS. OD has involutional PDR, with tractional bleed. Patient is functional, so we will observe for 4 to 6 weeks. If non-clearing, may consider vitrectomy. documented in this encounter Nursing Notes * 07/10/2011 8:15 AM EDT >> SOSA HEWITT MD [facility] Jul 10, 2011 9:21 AM PDR OU, post prp OU. New recurrent vit heme OD. OS has had poor vision for years. ANISHA >> AURE YAN Cristina Jul 10, 2011 8:30 AM Description:Patient presents with: Diabetes - Last Ha1c 8.1 (05/19/11), FBS 200+ today, Hx PDR, Hx laser ou, Pt returns for poss. procedure OS, but new [place] changes OD Spots and/or Floaters - Pt reports new floaters in OD, started last night @6pm Location: right eye Duration: 1 days Rapidity of Onset:sudden Severity: 4 Condition:Worsening Pain:none Modifying Factors: Associated Symptoms: tearing more lately documented in this encounter Plan of Treatment Upcoming Encounters Date Type Department Care Team (Late st Contact Info) Description 05/17/2024 2:30 PM EST Office [place] [address] Alcides Bonilla MD [facility] [place] [address] 04/06/2049 9:00 AM EST Hospital En[place] [phone] Harry Guerrero MD [facility] [place] [address] documented as of this encounter Visit Diagnoses Diagnosis PDR (proliferative diabetic retinopathy)- Primary Type II or unspecified type diabetes mellitus with ophthalmic manifestations, not stated as uncontrolled documented in this encounter Care Teams Rn Case Manager Hospice Relationship Specialty Start Date End Date Nayla Miramontes MD [address] [place] [address] PCP - General 05/21/11 05/10/21 documented as of this encounter
--- OUTSIDE RECORDS SUMMARY | 2024-03-07 19:04 | XMS_ITS | Encounter Summary ---
Author Organization [facility] [address] Care Team Providers Care Legal Advisor Name Role Phone Nayla Miramontes MD Primary Care Provider [phone] Reason for Visit * Reason Onset Date Comments Labs Only 07/02/2012 Encounter Details Date Type Department Care Team (Late Contact Info) Description 07/02/2012 [place] [phone] Iron Wing MD [facility] [place] [address] Labs Only Social History Tobacco Use Types [...] 2:30 PM EST Office [place] [phone] Alcides Bonilla MD [facility] [place] [address] 04/06/2049 9:00 AM EST Hospital [place] [address] Harry Guerrero MD [facility] 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
--- OUTSIDE RECORDS SUMMARY | 2024-03-07 19:04 | XMS_ITS | Encounter Summary ---
[place] [address] Care Team Providers Care Predatory Game Hunter Name Role Phone Nayla Miramontes MD Primary Care Provider Reason for Referral * Occupational Medicine (Routine) - Declined by Patient Specialty Diagnoses / Procedures Referred By Contac t Referred To Contact Occupational Medicine Diagnoses Scoliosis Back pain Darryl Burgos MD [facility] [address] [place] [address] [facility] Medicine [address] [address] Referral ID Status Reason Start Date Expiration Date Visits Requested Visits Authorized [id number] Declined by Patient Consult, Test & Treat 07/20/2012 01/16/2013 1 1 * Surgical (Routine) - Closed Specialty Diagnoses / Procedures Referred By Contac t Referred To Contact Orthopaedics Diagnoses Scoliosis Back pain Darryl Burgos MD [facility] [address] [place] [address] [facility] [place] [address] [address] Referral ID Status Reason Start Date Expiration Date V isits Requested Visits Authorized [id number] Closed Consult, Test & Treat 07/20/2012 01/16/2013 1 1 Reason for Visit * Reason Comments Psoriatic Arthropathy Encounter Details Date Type Department Care Team (Late st Contact Info) Description 07/20/2012 9:15 AM EDT [place] [address] Darryl Burgos MD [facility] [address] [place] [address] Scoliosis (Primary Dx); Back pain; Psoriatic arthritis Discharge Disposition: Home Social History Tobacco Use [...] Sign Reading Time Taken Comments Blood Pressure 130/115 07/20/2012 9:18 AM EDT Pulse 73 07/20/2012 9:18 AM EDT Temperature 36.4 ??C (97.6 ??F) 07/20/2012 9:18 AM ED T Respiratory Rate - - Oxygen Saturation 97% 07/20/2012 9:18 AM EDT Inhaled Oxygen Concentration - - Weight 85.3 kg (188 lb) 07/20/2012 9:18 AM EDT Height 165.1 cm (5' 5) 07/20/2012 9:18 AM EDT Body Mass Index 31.28 07/20/2012 9:18 AM EDT documented in this encounter Patient Instructions * Patient Instructions* Laura Lovelace, KATYA - 07/20/2012 9:21 AM EDT Welcome to [facility], your secure online access to your electronic medical record at [facility]. Using [facility]wing you will be able to send messages to your providers, view your test results, renew prescriptions, schedule appointments, and much more. Follow these instructions to enter your personal Picwing account for the first time: 1. Start your internet browser and type [email or web address] into the address bar. 2. In the New User box on the right-hand side of the Welcome page click the link that states, ???I have an activation code.?? 3. On the Identification page, follow these steps: a) Enter your myD-H activation code: [email or web address] b) Expires: 2012 9:21 AM IMPORTANT: This Activation Code will on the above mentioned date. If you do not sign up for myD-H by this date, you will need to request another activation code. c) Enter your date of , using the calendar tool provided. d) Enter your Zip code. e) Select ???submit?? to go to the next page. 4. On the Create Account page, follow these steps: a) Create a myD-H username. This can???t be changed, so choose one you won???t forget. b) Create a password that???s at least six characters long, and that contains at least two numbers.Your password can be changed at any time. Confirm your password by entering it once more. c) Enter your email address. This will be used to alert you to new information. Confirm your email address by entering it once more. d) Enter your security question. This will be used if you forget your password. e) Enter your security answer. Confirm your security answer by entering it once more. f) Select ???submit?? to view your electronic medical record. If you have any questions about myD-H or your Access Code, please call for [place], for [place] or for [place]. If you need technical support, please e-mail . Remember, myD-H is NOT for urgent needs! Always dial 911 for medical emergencies. 1) Continue hydroxychloroquine and methotrexate. 2) Continue daily folic acid while on methotrexate. 3) Increase bedtime Flexeril dose to 10 mg. 4) Check labs today. 5) Refer to the Spine Center. 6) Refer to the Occupational Medicine. 7) Return to follow up in three months. documented in this encounter Progress Notes * Darryl Burgos MD - 07/20/2012 9:27 AM EDT REASON FOR VISIT: Follow up for psoriatic arthritis and psoriasis. INTERVAL HISTORY: The pt was a 56-year-old female, who returned for a follow up of psoriatic arthritis and psoriasis. The pt noted that since her last visit on May 10, 2012, she had worsening back pain. She did not feel that methotrexate and hydroxychloroquine provided any pain relief. As a result of her worsening and persistent back pain, she was unable to work and perform daily function. Otherwise, her joint pain due to psoriatic arthritis was under adequate control. She was on bedtime neurontin, 400 mg for diabetic neuropathy. She tolerated methotrexate well without any fever, chest pain, dyspnea, nausea, dysuria, headache, easy bruising, or polydipsia. Radiographic studies of the lumbar spine obtained after her last visit showed significant leftward lumbar scoliotic curvature measured between T11 and L4 and approximately 26 degrees centered at L2-3, the SI joints were intact, anterior posterior spinal alignment is maintained as well as the spinal laminal line, intervertebral disc space heights were relatively well preserved on the lateral view. PAST MEDICAL HISTORY: Psoriatic arthritis Psoriasis Diabetes mellitus I, on insulin pump, poorly controlled Diabetic ketoacidosis Hypothyroidism GERD Hypertension Hyperlipidemia Asthma [...] with her family. 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 She was currently applying for disability. FAMILY HISTORY: ?Mother - Hypertension, hyperlipidemia, hypothyroidism; of cardiac aneurysm at the age of 48. Father - Stroke x two; of a brain tumor at the age of 82. ? PHYSICAL EXAMINATION: Vitals 07/20/2012 BP 130/115 Pulse 73 Temp 97.6 Temp src Oral Height to cm. 165.1 cm Height in inches 5' 5 Weight (Qatari) 188 lbs Weight (Metric) 85.3 kg BMI (Calculated) 31.4 BSA (Calculated - sq m) 1.98 SpO2 97 General - Alert, co-operative, no apparent distress, oriented x 3. HEENT - PERRL, EOMI bilaterally, conjunctiva pink, no sclerae icterus or malar rash. Neck - Supple, FROM, no spinal tenderness on palpation. Heart - Regular rate and rhythm, normal S1 and S2; no murmurs, rubs, or gallops. Lungs - Symmetric, no respiratory distress, clear to auscultation bilaterally. Abdomen - Soft, non-tender, non-distended, bowel sound present, no hepatosplenomegaly; + insulin pump in place. Back - Erect, FROM; + diffuse lumbosacral spinal tenderness; no paraspinal tenderness on palpation. Extremities - Upper extremities: FROM of all joints, + right fifth finger in permanent flexion position; + joint tenderness of both shoulders at the acromioclavicular areas on palpation and range of motion; no signs of synovitis, soft tissue swelling, or joint effusion; no clubbing, cyanosis, or edema; proximal and distal strength = 5/5 bilaterally. Skin - Smooth and intact, + dysmorphic toe nails improved, + minimal psoriatic lesions on both forearms; no telangiectasia on skin or at all nail margins, sclerodactyly, rash, or bruises. Neuro - + Left eye blind; no motor function deficit. IMPRESSION : 1) Psoriatic arthritis in a 56-year-old female. The pt's psoriatic arthritis was stable while on weekly oral methotrexate, 20 mg in conjunction with twice daily hydroxychloroquine, 200 mg. She will undergo surveillance studies today. She will continue current regimen. 2) Psoriasis. The pt will continue weekly oral methotrexate for her psoriasis, which is stable withcurrent regimen. She will be considered for topical corticosteroid should it progress. 3) Severe leftward lumbar scoliosis at L2-L3 (26 degrees). The pt's severe back pain is related to severe leftward lumbar scoliosis at L2-L3 (26 degrees). She will be referred to the Spine Center forfurther evaluation and Occupational Medicine for functional assessment. 4) Hypertension. The pt's blood pressure was under poor control and not at goal for diabetes mellitus II. She will need to increase her anti-hypertensive therapy should her blood pressure remain poorly controlled. RECOMMENDATIONS: 1) Continue hydroxychloroquine and methotrexate. 2) Continue daily folic acid while on methotrexate. 3) Increase bedtime Flexeril dose to 10 mg. 4) Check labs today. 5) Refer to the Spine Center. 6) Refer to the Occupational Medicine. 7) Return to follow up in three months. ? Darryl Burgos MD, PhD documented in this encounter Plan of Treatment Upcoming Encounters Date Type Department Care Team (Late st Contact Info) Description 05/17/2024 2:30 PM EST Office [place] [address] Alcides Bonilla MD [facility] [place] [address] 04/06/2049 9:00 AM EST Hospital [place] [address] Harry Guerrero MD [facility] [address] [place] [address] Scheduled Referrals Name Type Priority Associated Diagnoses Order Schedule Referral to Spine Center Outpatient Referral Routine Scoliosis Back pain Ordered: 07/20/2012 Referral to Occupational and Environmental Medicine Outpatient Referral Routine Scoliosis Back pain Ordered: 07/20/2012 documented as of this encounter Procedures Procedure Name Priority Date/Time Associated Diagnosis Comments URINALYSIS DIPSTICK Routine 07/20/2012 1 0:27 AM EDT Psoriatic arthritis INTERLEUKIN-6 Routine 07/20/2012 10:22 AM EDT Psoriatic arthritis TUMOR NECROSIS FACTOR-ALPHA Routine 07/20/2012 10:22 AM EDT Psoriatic arthritis DIFFERENTIAL, AUTOMATED Routine 07/20/2012 10:22 AM EDT VITAMIN D, 25-HYDROXY Routine 07/20/2012 10:22 AM EDT Psoriatic arthritis SEDIMENTATION RATE Routine 07/20/2012 10 :22 AM EDT Psoriatic arthritis CBC (WITH DIFF) Routine 07/20/2012 10:22 AM EDT Psoriatic arthritis CRP, CARDIAC RISK (HS CRP) Routine 07/20/2012 10:22 AM EDT Psoriatic arthritis HEPATIC FUNCTION PANEL Routine 3 10:22 AM EDT Psoriatic arthritis BASIC METABOLIC PANEL Routine 07/20/2012 10:22 AM EDT Psoriatic arthritis documented in this encounter Results * (ABNORMAL) Urinalysis without microscopic (07/20/2012 10:27 AM EDT) Glucose, Urine Dipstick >1000(Critic al) Negative mg/dL [facility] Comment: Urinalysis result NOT critical without a combination of Glucose greater than 1000mg/dl AND Ketones greater than 80mg/dl. Protein, Urine Dipstick Trace(A) Neg mg/dL [facility] Bilirubin, Urine Dipstick Negative Negative mg/dL [facility] Urobilinogen, Urine Dipstick Normal mg/dL [facility] pH, Urn (dipstick) 6.5 5.0 - 8.0 [facility] Blood, Urine Dipstick Negative mg/dL [facility] Ketone, Urine Dipstick Negative mg/dL [facility] Nitrite, Urine Dipstick Negative [facility] Leukocytes, Urine Dipstick Large(A) Neg [facility] Appearance, Urine Dipstick Clear Clear [facility] Specific [place] Urine Automated 1.019 1.002 - 1.030 [facility] Color, Urine Dipstick Yellow Yellow [facility] Urine specimen (specimen) 07/20/2012 10:27 AM EDT 07/20/2012 10:35 AM EDT Narrative Resulting Agency Comment Spec In Lab Darryl Burgos MD URINE ORDERABLES [facility] * Differential, Automated (07/20/2012 10:22 AM EDT) Neutrophil % 59.9 34.0 - 71.0 % [facility] Neutrophil Absolute 3.84 1.50 - 6.30 x10(3)/mcL [facility] Lymph % 32.6 19.0 - 53.0 % [facility] Lymphocytes Abs 2.1 1.0 - 3.6 x10(3)/mcL [facility] Monocyte % 5.0 4.0 - 13.0 % [facility] Monocyte Abs 0.3 0.2 - 1.0 x10(3)/mcL [facility] Eos % 1.7 0.0 - 7.0 % [facility] Eosinophils Abs 0.1 0.0 - 0.5 x10(3)/mcL [facility] Basophil % 0.8 0.0 - 2.0 % [facility] Baso [...] 0.05 x10(3)/mcL [facility] Blood specimen (specimen) 07/20/2012 10:22 AM EDT 07/20/2012 10:26 AM EDT Darryl Burgos MD HEMATOLOGY ORDERABLE S Performing Organization Address [facility]/ZIP Co de Phone Number [facility] * Interleukin-6 (07/20/2012 10:22 AM EDT) Pathologist [facility] Interleukin-6 (QST) 2.14 0.31 - 5.00 pg/mL [facility] Comment: This test was performed using a kit that has not been approved or cleared by the FDA. The analytical performance characteristics of this test have been [facility] by [facility]. This test should not be used for diagnosis without confirmation by other medically established means. Test performed by [facility], [address] [place] [id number] Blood specimen (specimen) 07/20/2012 10:22 AM EDT 07/20/2012 11:21 AM EDT Narrative Resulting Agency Comment Spec In Lab Darryl Burgos MD LAB SEND OUT ORDERAB LES Performing Organization Address [facility]/ZIP Co de Phone Number [facility] * (ABNORMAL) Tumor Necrosis Factor-Alpha (07/20/2012 10:22 AM EDT) [facility] Tumor Necrosis Factor <1.0(L) 1.2 - 15.3 pg/mL [facility] Comment: A = Out of range TNF-alpha is not to be used as a diagnostic procedure without confirmation of the diagnosis by another established product or procedure. The reference range is intended to be used for blood samples only. Reference ranges for body fluids other than blood have not been established. This test was performed using a kit that has not been approved or cleared by the FDA. The analytical performance characteristics of this test have been determined by [facility]. This test should not be used for diagnosis without confirmation by other medically established means. Test Performed by: [facility] [address] [place] [id number] REVISED RESULTS TNF-alpha is not to be used as a diagnostic procedure without confirmation of the diagnosis by another established product or procedure. The reference range is intended to be used for blood samples only. Reference ranges for body fluids other than blood have not been established. This test was performed using a kit that has not been approved or cleared by the FDA. The analytical performance characteristics of this test have been determined by [facility]. This test should not be used for diagnosis without confirmation by other medically established means. REVISED REPORT, Previously reported as: <1.0 A L (Reported 07/28/2012 15:01) REVISED REPORT, Previously reported as: A = Out of range (Reported 07/28/2012 15:01) Test Performed by: [facility] [address] [place] [address] Corrected from <1.0 A pg/mL [LOW] on 07/29/12 10:05:48 EDT by [employer] [place]. Blood specimen (specimen) 07/20/2012 10:22 AM EDT 07/20/2012 11:34 AM EDT Narrative Resulting Agency Comment Spec In Lab Darryl Burgos MD LAB SEND OUT ORDERAB LES [facility] * High Sensitivity CRP (07/20/2012 10:22 AM EDT) [facility] C-Reactive Protein High Sensitivity 5.5 mg/L [facility] Comment: Interpretations: 1) For cardiac risk assessment, two values (fasting or nonfasting sample acceptable) taken at least 2 weeks apart, should be averaged to provide a more reliable estimate of marker level. ??This laboratory uses the recommendations from the AHA/CDC Scientific Statement for interpretations of future risks of cardiovascular events: ? <1.0 mg/L: low risk 1.0 - 3.0 mg/L: moderate risk >3.0 mg/L: high risk groups for future cardiovascular events 2) The general reference range of apparently healthy individuals using this test is <5.0 mg/L (derived from the test package insert) A few words of caution: For cardiac assessment, when a value >10 mg/L is encountered, there should be a search for an acute inflammatory condition or infection (in patients with acute inflammation, the concentration can increase to >500 mg/L). ??The >10 mg/L should be discarded if such a situation exists, since the risk for coronary heart disease cannot be provided, and a repeat specimen, taken at least two weeks after resolution of the acute inflammatory condition, may allow for appraisal of coronary risk information. Please note that significantly decreased CRP values may be obtained from samples taken from patients who have been treated with carboxypenicillins. References: 1. Shiva CHEEMA et. al. ??AHA/CDC Scientific Statement: Markers of Inflammation and Cardiovascular Disease. ??Circulation 2003; 107:499-511 [place] PM. ??Clinical applications of C-reactive protein for cardiovascular disease detection and prevention. ??Circulation 2003; 107:363-369 Blood specimen (specimen) 07/20/2012 10:22 AM EDT 07/20/2012 10:26 AM EDT Narrative Resulting Agency Comment Spec In Lab Darryl Burgos MD CHEMISTRY ORDERABLES Performing Organization Address [facility] Co de Phone Number [employer] * VIT D Total Evaluation (07/20/2012 10:22 AM EDT) Pathologist [facility] Vitamin D Total 25 OH 44 30 - 100 ng/mL [facility] Comment: Deficient <10 ng/mL Insufficient 10 to [...] D concentration is reported. Blood specimen (specimen) 07/20/2012 10:22 AM EDT 07/20/2012 10:26 AM EDT Narrative Resulting Agency Comment Spec In Lab Darryl Burgos MD CHEMISTRY ORDERABLES Performing Organization Address [facility] Co de Phone Number [facility] * CBC (with Diff) (07/20/2012 10:22 AM EDT) White Blood Cell 6.4 4.0 - 10.0 x10(3)/mcL [facility] Red Blood Cell 4.47 3.93 - 5.22 x10(6)/mcL [facility] MILL[facility]UM Hemoglobin 13.7 11.2 - 15.7 gm/dL [facility] MILLENNIUM Hematocrit 40.4 34.0 - 45.0 % [facility] Mean Cell Volume 90.4 79.0 - 94.0 fL [facility] Mean Cell Hemoglobin 30.6 26.6 - 32.2 pg [facility] Mean Cell Hemoglobin Concentration 33.9 32.0 - 36.5 gm/dL [facility] MILLEN[facility]UM Platelet 277 145 - 370 x10(3)/mcL [facility] MILLENNIUM RDW Standard Deviation 43.7 35.0 - 46.0 fL [facility] RDW coefficient of variation 13.3 10.9 - 14.4 % [facility] Mean Platelet Volume 9.8 9.0 - 12.0 fL [facility] Blood specimen (specimen) 07/20/2012 10:22 AM EDT 07/20/2012 10:26 AM EDT Narrative Resulting Agency Comment Spec In Lab Darryl Burgos MD HEMATOLOGY ORDERABLE S Performing Organization Address [facility] de Phone Number [facility] * Sedimentation rate (07/20/2012 10:22 AM EDT) Sedimentation Rate Automated 9 0 - 20 mm/hr [facility] Blood specimen (specimen) 07/20/2012 10:22 AM EDT 07/20/2012 10:26 AM EDT Narrative Resulting Agency Comment Spec In Lab Darryl Burgos MD HEMATOLOGY ORDERABLE S [facility] * Hepatic Function Panel (07/20/2012 10:22 AM EDT) Protein, Total 7.0 6.4 - 8.3 gm/dL [facility] Albumin 4.3 3.2 - 5.2 gm/dL [facility] Aspartate Aminotransferase 14 0 - 30 unit/L [facility] Alanine Aminotransferase 12 0 - 30 unit/L [facility] Alkaline Phosphatase 52 40 - 104 unit/L [facility] Bilirubin, Total 0.6 0.2 - 1.3 mg/dL [facility] Bilirubin, Direct 0.1 0.0 - 0.3 mg/dL [facility] Blood specimen (specimen) 07/20/2012 10:22 AM EDT 07/20/2012 10:26 AM EDT Narrative Resulting Agency Comment Spec In Lab Darryl Burgos MD CHEMISTRY ORDERABLES [facility] * (ABNORMAL) Basic Metabolic Panel (non-fasting) (07/20/2012 10:22 AM EDT) Glucose 201(H) 60 - 199 mg/dL [facility] Comment:Diabetes: >=200 mg/d L plus symptoms Blood Urea Nitrogen 20(H) 8 - 18 mg/dL [facility] Creatinine 0.88 0.70 - 1.20 mg/dL [facility] Comment: Please note that the pediatric reference intervals supplied above were not validated at [facility]. Results from pediatric patients should be interpreted in conjunction to the patient's age, height and muscle mass. Sodium 138 135 - 145 mmol/L [facility] Potassium 4.4 3.5 - 5.0 mmol/L [facility] Comment: Please note: ??Patients with WBC >100,000 may have falsely elevated Potassium levels. ??For accurate Potassium quantification in these patients send serum separator tube (gold top) for subsequent determinations. ??Contact the Clinical Chemistry Laboratory if there are any questions. Chloride 100 98 - 107 mmol/L [facility] Carbon Dioxide 26 22 - 31 mmol/L [facility] Anion Gap 12 5 - 15 mmol/L [facility] Calcium 8.9 8.5 - 10.5 mg/dL [facility] Est Glomerular Filtration Rate >60 >=60 [facility] Comment: The National Kidney Disease Education Program (NKDEP) has recommended all laboratories report estimated GFR (eGFR) along with plasma creatinine measurements to assist you with recognition of early kidney disease. Caveats: ??Plasma creatinine should be at steady-state (unchanged within the past week). For patients multiply eGFR by 1.2. The MDRD equation was developed using patients between the ages of 18 and 70 years. ?? The MDRD equation has not been validated for patients < 18 years of age and should not be used to assess renal function in the pediatric population. ??The MDRD eGFR equation will also overestimate the true GFR of patients above the age of 70. ??This overestimation is variable but increases with age. At present, NKDEP does NOT recommend using the MDRD equation for drug dosing purposes and pharmacists should continue to use their current dosing methods. In addition, numerical eGFR values greater than 60 ml/min/1.73 square meters should be treated as > 60, and not an exact number due to greater inaccuracies at these higher values. Per NKDEP, they classify normal renal function as any GFR >60ml/min/1.73 square meters; chronic kidney disease when GFR <60, and renal failure when GFR <15. ??This calculation may not be valid for patients with atypical muscle mass (very lean or obese), acute renal failure, and in patients with diabetic kidney disease. References: http://nkdep.nih.gov/resources/NKDEP_Suggestn4Labs_0606_508.pdf http://www.kidney.org/professionals/kls/pdf/faq_gfr.pdf Kait K, Carissa NA, Eriberto AK, Steven TS, Patricia AD, Tawanda STACEY. Relative performance of the MDRD and CKD-EPI equations for estimating glomerular filtration rate among patients with varied clinical presentations. Clin J Am Soc Nephrol;6:1963-72. Blood specimen (specimen) 07/20/2012 10:22 AM EDT 07/20/2012 10:26 AM EDT Narrative Resulting Agency Comment Spec In Lab Darryl Burgos MD CHEMISTRY ORDERABLES Performing Organization Address City/State/ZIP Co dc Phone Number [facility] documented in this encounter Visit Diagnoses Diagnosis Scoliosis- Primary Scoliosis (and kyphoscoliosis), idiopathic Back pain Backache, unspecified Psoriatic arthritis Psoriatic arthropathy documented in this encounter Care Teams Predatory Game Hunter Relationship Specialty Start Date End Date Nayla Miramontes MD [facility] [address] [place] [address] PCP - General 05/21/11 05/10/21 documented as of this encounter
--- OUTSIDE RECORDS SUMMARY | 2024-03-07 19:04 | XMS_ITS | Encounter Summary ---
[place] [address] Care Team Providers Care Cyber Security Engineer Name Role Phone Nayla Miramontes MD Primary Care Provider [phone] Reason for Visit * Reason Comments Skin Check Encounter Details Date Type Department Care Team (Late st Contact Info) Description 05/03/2012 8:30 AM EST Office Visit Dermatology [address] [facility] [address] [place] [address] Francisco Schmidt MD [address], [place] [address] Seborrheic keratosis (Primary Dx); Solar lentigo; Xerosis cutis; Pruritus Social History Tobacco Use Types Packs/Day Years [...] as of this encounter Progress Notes * Francisco Schmidt MD - 05/03/2012 8:53 AM EST Problem is skin lesions of concern. Roxann is a 56-year-old woman who was referred today by Dr. Miramontes for evaluation of some pigmented macules and patches of bilateral cheeks. She had a fair amount of sun exposure over the years and used to brandon extensively she states. She is not aware of any personal or family history of skin cancer or melanoma. She has a lot of itching on her back. She has a history of psoriasis in 1992 of her scalp, but that has been quiescent for many years. Physical examination reveals a pleasant 56-year-old woman who has solar lentigos present most prominently on the right lateral lower cheek but also several on the left lateral cheek. She has a number of seborrheic keratoses on her back and diffuse xerosis of the back and arms and forearms. Otherwise, careful examination of the head and the neck, chest, back, hands, hands, and forearms is benign. Assessment and Plan: 1. Solar lentigos. a. The patient has been using a L'Oreal bleaching product for the last two weeks. b. Discussed the importance of sun avoidance precautions, use of sunscreen in the summer months. The patient states that her year-round use emollients contain sunscreen. c. After obtaining informed consent, sites were treated with LN2 times one lightly, then would recommend resuming the L'Oreal. Discussed the option of prescription tretinoin cream plus/minus 4% hydroquinone. 2. Seborrheic keratoses/xerosis. a. Explained that xerosis is the most common cause of itching of the skin. b. Recommended CeraVe cream as an excellent emollient. c. As seborrheic keratoses can act as trigger points for pruritus, these were treated with LN2 times one today. Recommend return to clinic p.r.n. Copy: Nayla Miramontes M.D. documented in this encounter Plan of Treatment Upcoming Encounters Date Type Department Care Team (Late st Contact Info) Description 05/17/2024 2:30 PM EST Office Visit [place] [phone] Alcides Bonilla MD [facility] [place] [address] 04/06/2049 9:00 AM EST Hospital Encounter [place] [phone] Harry Guerrero MD [facility] DR GASTROENTEROLOGY [place] [address] documented as of this encounter Visit Diagnoses Diagnosis Seborrheic keratosis- Primary Other seborrheic keratosis Solar lentigo Other dyschromia Xerosis cutis Other specified disease of sebaceous glands Pruritus Unspecified pruritic disorder documented in this encounter Care Teams Cyber Security Engineer Relationship Specialty Start Date End Date Nayla Miramontes MD [address] [place] [address] [facility] [address] [place] [address] PCP - General 05/21/11 05/10/21 documented as of this encounter
--- OUTSIDE RECORDS SUMMARY | 2024-03-07 19:04 | XMS_ITS | Encounter Summary ---
[place] [address] Care Team Providers Care Rail Car Repairman Name Role Phone Nayla Miramontes MD Primary Care Provider [phone] Reason for Visit * Reason Comments PDR 4 m f/u Encounter Details Date Type Department Care Team (Late st Contact Info) Description 11/06/2011 3:30 PM EDT [place] [address] Sosa Hewitt MD PDR (proliferative diabetic retinopathy) [...] Progress Notes * Sosa Hewitt MD - 11/11/2011 10:16 AM EDT OU: early cataracts OU: PDR OU: vit heme OU: post PRP Imp: OS has baseline poor vision, even with Or without vit heme. Therefore only observation for OS. OD has involutional PDR, with tractional bleed. Patient is functional, so we will observe for now. If non-clearing, may consider vitrectomy RTC 2 months. documented in this encounter Nursing Notes * 11/06/2011 3:30 PM EDT >> MD Julio Cesar FERRARO Nov 11, 2011 10:18 AM Known PDR post PRP ou, with recurrent small tractional bleeds OU. >> AURE SYED Cristina Nov 06, 2011 4:08 PM Description:Patient presents with: PDR - 4 m f/u Location: both eye Duration: 4 months f/u Condition:No Change Pain:none Modifying Factors: PDR ou s/p PRP ou Associated Symptoms: pt states vit heme cleared up but va is the same. Pt was unable to come back sooner for f/u appt due to father's illness and . HA1C 8.5 at home in august 2011. documented in this encounter Plan of Treatment Upcoming Encounters Date Type Department Care Team (Late st Contact Info) Description 05/17/2024 2:30 PM EST Office Visit Gastroenterology at [place] [phone] Alcides Bonilla MD [facility] [place] [address] 04/06/2049 9:00 AM EST Hospital Encounter Gastroenterology at [place] [phone] Harry Guerrero MD [facility] [place] [address] documented as of this encounter Visit Diagnoses Diagnosis PDR (proliferative diabetic retinopathy)- Primary Type II or unspecified type diabetes mellitus with ophthalmic manifestations, not stated as uncontrolled documented in this encounter Care Teams Rail Car Repairman Relationship Specialty Start Date End Date Nayla Miramontes MD [facility] [address] [place] [address] PCP - General 05/21/11 05/10/21 documented as of this encounter
--- OUTSIDE RECORDS SUMMARY | 2024-03-07 19:04 | XMS_ITS | Encounter Summary ---
Author Organization [facility] [place] [address] Care Team Providers Care Pamphlet Distributor Name Role Phone Nayla Miramontes MD Primary Care Provider [phone] Reason for Visit * Reason Onset Date Comments Medication Refill 11/03/2012 Encounter Details Date Type Department Care Team (Late Contact Info) Description 11/03/2012 Refill [place] [address] Darryl Burgos MD [facility] [place] [address] Social History Tobacco Use Types Packs/Day Years [...] 2:30 PM EST Office [place] [phone] Alcides Bonilla MD [facility] [address] 04/06/2049 9:00 AM EST Hospital Encounter [place] [address] Harry Guerrero MD [facility] [address] [place] [address] documented as of this encounter Visit Diagnoses Not on filedocumented in this encounter Care Teams Pamphlet Distributor Relationship Specialty Start Date End Date Nayla Miramontes MD [facility] [address] [facility] [address] [place] [address] PCP - General 05/21/11 05/10/21 documented as of this encounter
--- OUTSIDE RECORDS SUMMARY | 2024-03-07 19:04 | XMS_ITS | Encounter Summary ---
Author Organization [facility] [place] [address] Care Team Providers Care Automatic Lathe Setter Name Role Phone Nayla Miramontes MD Primary Care Provider [phone] Reason for Visit * Reason Comments Diabetes Encounter Details Date Type Department Care Team ([facility] st Contact Info) Description 09/16/2011 11:00 AM EDT Office Visit [place] [address] [facility] [place] [address] Diabetes mellitus (Primary Dx) Discharge Disposition: Home [...] Sign Reading Time Taken Comments Blood Pressure 136/59 09/16/2011 11:02 AM EDT Pulse 76 09/16/2011 11:02 AM EDT Temperature - - Respiratory Rate - - Oxygen Saturation - - Inhaled Oxygen Concentration - - Weight 81.6 kg (179 lb 12.8 oz) 012 11:02 AM EDT Height 167.6 cm (5' 6) 09/16/2011 11:0 2 AM EDT Body Mass Index 29.02 09/16/2011 11:02 AM EDT documented in this encounter Patient Instructions * Patient Instructions* Melisa Sales RN - 09/18/2011 4:26 PM EDT This patient will follow directions to wear her new pump and sensor. documented in this encounter Progress Notes * Melisa Sales RN - 09/17/2011 10:29 AM EDT [employer]tronic REVEL 523 INSULIN PUMP UPGRADE Subjective: Patient ID: Roxann Baxter is a 56 y.o. female. HPI Review of Systems Objective: Physical Exam Assessment and Plan: Basal rate: Mn= 0.6 4= 0.8 8= 0.9 4= 0.5 7= 0.8 Based on previous basal insulin or 1/2 TDD minus 20% over 24 hours. Insulin:CHO Ratio: mn= 12:1 8= 12:1 7:30= 12:1 Based on previous carbohydrate ratio Correction Factor: 25 Based on pervious correction factor Target: 90-140 Changed to 95-130 Education: Call system including contact numbers Basal and Bolus checks and calculations. Hyper and Hypoglycemia treatment including glucose and glucagon, ketone testing and set change guidelines. Plan: Check blood glucose at meals, 2 hours post prandially, bedtime, 12 midnight and 3 am. Treat hypoglycemia with glucose tabs or juice. Correct at meals, snacks and bedtime, correct middle of the night if BG >250mg/dl. Daily telephone/fax/[facility] for review. Follow up visit. HERE for sensor instructions (her own sensor) Roxann Baxter [id number] Roxann Baxter is a 56 y.o. old female. she is here for her sensor insertion according to [employer] CGMS protocol. Sensor material reviewed including: Understanding glucose sensing. Programming sensor information. Starting new sensor. Use of product (calibrating, reading CGMS data, therapy management systems). Basic care. Troubleshooting site and alarms. Roxann was trained on the use of the CGM system following the [employer] operation and safety checklist. Questions were answered during training and patient and family expressed understanding. Sensor catheter was inserted with patient in the usual manner. Skin was prepped with alcohol and there was no problem with site or insertion. Catheter was placed. She will call daily for review of blood glucose results and [employer] for any questions or concernsabout the device itself. Roxann demonstrates an understanding of the Sensor/Monitor use. She is to wear the Sensor for up to 72 hours, enter at least 4 blood glucoses a day. Emergency phone numbers and resources phone numbers given. Total visit time was 110 minutes documented in this encounter Plan of Treatment Upcoming Encounters Date Type Department Care Team (Late st Contact Info) Description 05/17/2024 2:30 PM EST Office Visit [place] [phone] Alcides Bonilla MD [facility] [place] [address] 04/06/2049 9:00 AM EST Hospital Encounter [place] [address] Harry Guerrero MD [facility] DR [place] [address] documented as of this encounter Visit Diagnoses Diagnosis Diabetes mellitus- Primary Type II or unspecified type diabetes mellitus without mention of complication, not stated as uncontrolled documented in this encounter Care Teams Automatic Lathe Setter Relationship Specialty Start Date End Date Nayla Miramontes MD [facility] [address] [place] [address] PCP - General 05/21/11 05/10/21 documented as of this encounter
--- OUTSIDE RECORDS SUMMARY | 2024-03-07 19:04 | XMS_ITS | Encounter Summary ---
[place] [address] Care Team Providers Care Trademark Attorney Name Role Phone Nayla Miramontes MD Primary Care Provider [phone] Reason for Referral * Consultation (Routine) - Closed Specialty Diagnoses / Procedures Referred By Franklin laird Referred To Contact Pain Management Diagnoses Scoliosis Chronic low back pain [facility] [address] [place] [phone] [facility] [address] [place] [phone] Referral ID Status Reason Start Date Expiration Date V isits Requested Visits Authorized [id number] Closed Assume Subset of Care 08/13/2012 02/09/2013 1 1 * Physical Therapy (Routine) - Closed Specialty Diagnoses / Procedures Referred By Franklin laird Referred To Contact Physical Therapy Diagnoses Scoliosis Chronic low back pain [facility] [address] [place] [phone] [facility] [place] [address] Referral ID Status Reason Start Date Expiration Date V isits Requested Visits Authorized [id number] Closed Evaluate and Treat 08/13/2012 02/09/2013 12 12 Reason for Visit * Reason Comments Back Pain Encounter Details Date Type Department Care Team (Late st Contact Info) Description 08/13/2012 9:35 AM EDT Office [place] [address] Jacobo Sullivan PA [facility] [place] [address] Chronic low back pain (Primary Dx); Scoliosis Discharge Disposition: Home Social History Tobacco Use [...] as of this encounter Progress Notes * Jacobo Sullivan PA - 08/13/2012 12:51 PM EDT Chief Complaint: Chief Complaint Patient presents with ??? Back Pain HPI: This patient is a 56 y.o. female that presents to the spine center for A rather complicated history of pain that started at multiple joints about 2 years ago. She relates it to a very stressful time in her life after her granddaughter . She was evaluated and treated in rheumatology, and referred here because of some back pain and apparent scoliosis. The patient is aware that she had an adolescent idiopathic scoliosis without any problems related to it over the years. The patient does report pain pretty much throughout the entire spine but primarily up in the upper back around the scapular area and down her low back as well. She does describe some pain out towards both shoulders anyupper arms down to the elbow but does not describe any radicular symptoms down her legs. Her pain is located primarily in the lower lumbar spine but does radiate towards both hips. She does indicate some numbness and tingling in her hands. She rates her pain currently in the rim as a 5/10 with painranging between a 5-8. Her low back pain is usually worse with standing for more than 10 minutes, walking a few blocks, and gardening or sitting on hard surfaces and usually feels better sitting on soft chairs. Her upper back pain is usually worse with bending and reaching. She does not describe any bowel or bladder incontinence. Her prior treatments have included a knee injection, prednisone andrheumatologic medications. She has not had any prior spine surgeries and is no history of cancer. ROS: Positive for some constipation but negative for any or constitutional symptoms. Medications & Allergies: Are updated on the system. Problem List: Patient Active Problem List Diagnoses Code ??? [...] ??? Xerosis cutis 706.8 ??? Pruritus 698.9 PMH: Past Medical History Diagnosis Date ??? Diabetes mellitus ??? Thyroid disease ??? Skin disease ??? GERD (gastroesophageal reflux disease) ??? Hyperlipidemia ??? Hypertension ??? Anxiety ??? Asthma ??? Cortical cataract 05/05/2011 ??? PDR (proliferative diabetic retinopathy) 05/25/2011 PSH: Past Surgical History Procedure Date ??? Upper gi endoscopy, exam 04/25/2011 UPPER GI ENDOSCOPY performed by MARIA DEL CARMEN BOB at [facility] ??? Retinal laser surgery ??? Upper gi endoscopy, biopsy 04/27/2012 UPPER GASTROINTESTINAL ENDOSCOPY,WITH BIOPSY SINGLE OR MULTIPLE performed by Luis Bucio MD [facility] END[facility]COPY Social Hx: History Social History ??? Marital Status: Spouse [...] History Narrative ??? No narrative on file Physical Exam: This patient is a heavyset 56 or old female who is alert oriented x3. She does move about the room in obvious discomfort. She indicates with a very stiff and waddling gait but was able to toe and heel walk. She did have some difficulty with tandem walking. She has tenderness pretty much through theentire spine but primarily in the lower lumbar spine at L5-S1. She is very limited with lumbar range of motion, flexing with her fingers going to her knees causing increased low back pain and shoulder pain, and she extends about 15 degrees with low back pain. Her cervical range of motion was about 50 degrees of extension neck pain, 60 degrees of flexion with mild neck pain, 60 degrees of right rotation with neck pain and 80 degrees of left rotation without significant pain. She does have limited shoulder range of motion with pain. Her sensation was decreased in the right lateral calf and delcid. Her reflexes were 2+ and symmetrical in all extremities. Her motor exam revealed fairly diffuse muscle weakness in all extremities. Her Spurling's test was negative causing some neck pain that radiat ed toward the left upper trapezius. Her straight leg raising cross straight leg raise are both negative with some low back pain. There is no clonus and negative Babinski and Moreno's. Distal pulses are intact. Imaging: The patient does have plain films of the lumbar spine which reveals there is a red a scoliosis convex to the Left measuring about 26. Otherwise the disc space height is fairly well maintained and there is no spondylolisthesis identified. There may be some mild lower lumbar spine facet hypertrophy. I reviewed the images with the patient. Assessment: Chronic diffuse pain symptoms at multiple joints in the setting with the patient has some low back pain symptoms Plan: I have reviewed with the patient that I not convinced that all of her symptoms are associatedwith the lumbar spine, and I think the diving board assembler agrees that her pain symptoms are likely mostly autoimmune in nature. I am uncertain as to whether I have any treatment I will provide significant relief I do not think her scoliosis is likely what is causing her pain. We did briefly discuss theoption of physical therapy here the spine center along with possibility of facet injections. I alsomentioned functional nondenominational program. I did also briefly discussed the book to consider readingeat to live as a possible dietary changes and may provide some benefits for her wish of weight loss and pain reduction. She expresses interest in both injections and physical therapy. After our discussion and answering the patients questions, we have come to an aggreement in the below stated plan: 1) I have referred the patient to physical therapy in the Spine Center, to be treated with a mechanical, Joy based approach. 2) I have referred the patient to the pain center to attempt facet injections for the lower lumbar spine, giving the provider x-ray time to assess appropriate levels. I will see the patient back about 2-3 weeks after the injections. This dictation was performed using [employer] voice recognition dictation. documented in this encounter Plan of Treatment Upcoming Encounters Date Type Department Care Team (Late st Contact Info) Description 05/17/2024 2:30 PM EST Office [place] [address] Alcides Bonilla MD [facility] [place] [address] 04/06/2049 9:00 AM EST Hospital Encounter [place] [phone] Harry Guerrero MD [facility] [place] [address] Scheduled Referrals Name Type Priority Associated Diagnoses Orde r Schedule Referral to Physical Therapy Outpatient Referral Routine Scoliosis Chronic low back pain Ordered: 08/13/2012 Referral to Pain Clinic Outpatient Referral Routine Scoliosis Chronic low back pain Ordered: 08/13/2012 documented as of this encounter Visit Diagnoses Diagnosis Chronic low back pain- Primary Lumbago Scoliosis Scoliosis (and kyphoscoliosis), idiopathic documented in this encounter Care Teams Trademark Attorney Relationship Specialty Start Date End Date Nayla Miramontes MD [address] [place] [address] PCP - General 05/21/11 05/10/21 documented as of this encounter
--- OUTSIDE RECORDS SUMMARY | 2024-03-07 19:04 | XMS_ITS | Encounter Summary ---
Author Organization [place] [address] Care Team Providers Care Independent Trader Name Role Phone Nayla Miramontes MD Primary Care Provider [phone] Reason for Visit * Reason Comments Follow-up Encounter Details Date Type Department Care Team ([facility] st Contact Info) Description 10/13/2011 2:45 PM EDT Follow-[place] [address] Darryl Burgos MD [facility] [address] Psoriatic arthritis (Primary Dx) Discharge Disposition: Home Social History [...] Sign Reading Time Taken Comments Blood Pressure 116/58 10/13/2011 3:10 PM EDT Pulse 76 10/13/2011 3:10 PM EDT Temperature 36.9 ??C (98.5 ??F) 10/13/2011 3:10 PM ED T Respiratory Rate 18 10/13/2011 3:10 PM EDT Oxygen Saturation - - Inhaled Oxygen Concentration - - Weight 81.6 kg (180 lb) 10/13/2011 3:10 PM EDT Height 167.6 cm (5' 6) 10/13/2011 3:10 PM EDT Body Mass Index 29.05 10/13/2011 3:10 PM EDT documented in this encounter Patient Instructions * Patient Instructions* Darryl Burgos MD - 10/13/2011 3:37 PM EDT 1) Continue hydroxychloroquine and methotrexate. 2) Continue daily folic acid while on methotrexate. 3) Start a trial of neurontin. 4) Check labs today. 5) Return to follow up in two months. documented in this encounter Progress Notes * Darryl Burgos MD - 10/13/2011 3:25 PM EDT REASON FOR VISIT: Follow up for psoriatic arthritis and psoriasis. INTERVAL HISTORY: The pt was a 56-year-old female, who returned for a follow up of psoriatic arthritis and psoriasis. The pt noted that since her last visit May 19, 2011, she continued to be on weekly oral methotrexate, 20 mg and twice daily hydroxychloroquine, 200 mg for her psoriatic arthritis. She felt that her overall joint pain was under borderline control. She also felt that her pain mainly came from diabetic neuropathy in her arms and lower legs. She denied any joint swelling, but she did complain of morning stiffness of multiple joints for about 30 minutes. Otherwise, she tolerated methotrexate well without any fever, chest pain, dyspnea, nausea, dysuria, headache, rash, easy bruising, and p olydipsia. Laboratory studies obtained after her last visit were normal for chemistry, CBC with differential, LFT, TSH, ESR, CRP, and 25-hydroxyvitamin D level. Her diabetes remained poorly controlled with Hba1c level of 8.1. 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 ALLERGIES: Codeine (vomiting) Propoxyphene N-acetaminophen (ulcer) SOCIAL HISTORY: Cigarettes: 2 ppd x 12 years (quit in 1984). Alcohol: Rare alcohol use. Pt denied any use of illicit drugs. She was , with two children. Her granddaughter of leukemia in June 2010. She was living with her family. 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 She was currently applying for disability. FAMILY HISTORY: ??Mother - Hypertension, hyperlipidemia, hypothyroidism; of cardiac aneurysm at the age of 48. Father - Stroke, alive and healthy at the age of 81. ?? PHYSICAL EXAMINATION: Vitals 10/13/2011 SYSTOLIC 116 DIASTOLIC 58 PULSE 76 TEMPERATURE 98.5 RESPIRATIONS 18 HEIGHT 66 in WEIGHT 180 lbs BODY MASS INDEX 29.07 kg/m2 General - Alert, co-operative, no apparent distress, oriented x 3. HEENT - PERRL, EOMI b/l, conjunctiva pink, no sclerae icterus or malar rash. Neck - Supple, FROM, no spinal tenderness on palpation. Heart - Regular rate and rhythm, normal S1 and S2; no murmurs, rubs, or gallops. Lungs - Symmetric, no respiratory distress, clear to auscultation b/l. Abdomen - Soft, non-tender, non-distended, bowel sound present, no hepatosplenomegaly; + insulin pump in place. Back - Erect, FROM; no lumbosacral spinal or paraspinal tenderness on palpation. Extremities - Upper extremities: FROM of all joints, + right fifth finger in permanent flexion position; + joint tenderness of both shoulders at the acromioclavicular areas on palpation and range of motion; + residual bilateral PIP joint synovitis; no soft tissue swelling or joint effusion; no clubbing, cyanosis, or edema; proximal and distal strength = 5/5 b/l. Lower extremities: FROM of all joints; + mild crepitations of both knees on flexion and extension of both knees; + bilateral knee joint tenderness on palpation; no clubbing, cyanosis, or edema; proximal and distal muscle strength = 5/5 b/l, 2+ peripheral pulses b/l. Skin - Smooth and intact, + dysmorphic toe nails improved, no signs of psoriasis, telangiectasia onskin or at all nail margins, sclerodactyly, rash, oral ulcers, or bruises. Neuro - + Left eye blind; no motor function deficit, DTR = +1/4 b/l and throughout. IMPRESSION: 1) Psoriatic arthritis in a 56-year-old female. The pt's psoriatic arthritis was stable since she resumed weekly oral methotrexate, 20 mg in conjunction with twice daily hydroxychloroquine,200 mg. She will undergo surveillance studies today. She will continue current regimen. 2) Psoriasis. The pt will continue weekly oral methotrexate for her psoriasis, which was manifestedas dysmorphic toe nails bilaterally. 3) Diabetic neuropathy. The pt will start a trial of gabapentin for her diabetic neuropathy. RECOMMENDATIONS: 1) Continue hydroxychloroquine and methotrexate. 2) Continue daily folic acid while on methotrexate. 3) Start a trial of neurontin. 4) Check labs today. 5) Return to follow up in two months. ? Darryl Burgos MD, PhD * Darryl Burgos MD - 10/13/2011 3:25 PM EDT Subjective: Patient ID: Roxann Baxter is a 56 y.o. female. HPI Review of Systems Objective: Physical Exam Assessment and Plan: No problem-specific visit notes found for this encounter. documented in this encounter Plan of Treatment Upcoming Encounters Date Type Department Care Team (Late st Contact Info) Description 05/17/2024 2:30 PM EST Office Visit [place] [address] Alcides Bonilla MD [facility] [address] 04/06/2049 9:00 AM EST Hospital Encounter [place] [address] Harry Guerrero MD [facility] [place] [id number] documented as of this encounter Procedures Procedure Name Priority Date/Time Associated Diagnosis Comments INTERLEUKIN-6 Routine 10/13/2011 4:01 PM EDT Psoriatic arthritis TUMOR NECROSIS FACTOR-ALPHA Routine 10/13/2011 4:01 PM EDT Psoriatic arthritis DIFFERENTIAL, AUTOMATED Routine 10/13/2011 4:01 PM EDT VITAMIN D, 25-HYDROXY Routine 10/13/2011 4:01 PM EDT Psoriatic arthritis SEDIMENTATION RATE Routine 10/13/2011 4: 01 PM EDT Psoriatic arthritis CBC (WITH DIFF) Routine 10/13/2011 4:01 PM EDT Psoriatic arthritis CRP, CARDIAC RISK (HS CRP) Routine 10/13/2011 4:01 PM EDT Psoriatic arthritis TSH Routine 10/13/2011 4:01 PM EDT Psoriatic arthritis PROTEIN ELECTROPHORESIS, SERUM Routine 10/13/2011 4:01 PM EDT Psoriatic arthritis HEPATIC FUNCTION PANEL Routine 2 4:01 PM EDT Psoriatic arthritis BASIC METABOLIC PANEL Routine 10/13/2011 4:01 PM EDT Psoriatic arthritis documented in this encounter Results * DIFFERENTIAL, AUTOMATED (10/13/2011 4:01 PM EDT) Neutrophil % 50.2 34.0 - 71.0 % CERNER MILLENNIUM Neutrophil Absolute 3.07 1.50 - 6.30 x10(3)/mcL CERNER MILLENNIUM Lymph % 40.9 19.0 - 53.0 % CERNER MILLENNIUM Lymphocytes Abs 2.5 1.0 - 3.6 x10(3)/mcL CERNER MILLENNIUM Monocyte % 6.1 4.0 - 13.0 % CERNER MILLENNIUM Monocyte Abs 0.4 0.2 - 1.0 x10(3)/mcL CERNER MILLENNIUM Eos % 2.1 0.0 - 7.0 % CERNER MILLENNIUM Eosinophils Abs 0.1 0.0 - 0.5 x10(3)/[facility] CERNER MILLENNIUM Basophil % 0.7 0.0 - 2.0 % CERNER MILLENNIUM Baso Absolute 0.0 0.0 - 0.2 x10(3)/[facility] CERNER MILLENNIUM Immature Gran % 0.00 0.00 - 0.66 % CERNER SRIDHARENNIUM Comment: Immature granulocytes(IG's)percentage and absolute count will include metamyelocytes, myelocytes, and promyelocytes. Blood smears from CBCs yielding IG's will be scanned manually for concordance. If this scan disagrees with the automated IG or if promyelocytes are noted, a manual differential will be performed. Immature Gran Absolute 0.00 0.00 - 0.05 x10(3)/[facility] JOHN WALLERENNIUM Blood specimen (specimen) 10/13/2011 4:01 PM EDT 10/13/2011 4:08 PM EDT Darryl Burgos MD HEMATOLOGY ORDERABLE S JOHN DE LEON * Interleukin-6 (10/13/2011 4:01 PM EDT) Interleukin-6 (QST) 1.37 0.31 - 5.00 pg/mL JOHN DE LEON Comment: This test was performed using a kit that has not been approved or cleared by the FDA. The analytical performance characteristics of this test have been determined by [facility]. This test should not be used for diagnosis without confirmation by other medically established means. Test performed by [facility], [id number] [place] [address] Blood specimen (specimen) 10/13/2011 4:01 PM EDT 10/14/2011 9:08 AM EDT Narrative Resulting Agency Comment Spec In Lab Darryl Burgos MD LAB SEND OUT ORDERAB LES Performing Organization Address [facility] Co de Phone Number JOHN DE LEON * Tumor Necrosis Factor-Alpha (10/13/2011 4:01 PM EDT) Pathologist [facility] Tumor Necrosis Factor 3.0 1.2 - 15.3 pg/mL [facility] Comment: TNF-alpha is not to be used as [...] of this test have been determined by [facility]. This test should not be used for diagnosis without confirmation by other medically established means. Test Performed by: [employer] [address] [place] [address] Blood specimen (specimen) 10/13/2011 4:01 PM EDT 10/14/2011 9:06 AM EDT Narrative Resulting Agency Comment Spec In Lab Darryl Burgos MD LAB SEND OUT ORDERAB LES Performing Organization Address [facility] Co de Phone Number JOHN DE LEON * High Sensitivity CRP (10/13/2011 4:01 PM EDT) Pathologist [facility] C-Reactive Protein High Sensitivity 1.5 mg/L [facility] Comment: Interpretations: 1) For cardiac risk [...] prevention. ??Circulation 2003; [phone] Blood specimen (specimen) 10/13/2011 4:01 PM EDT 10/13/2011 4:08 PM EDT Narrative Resulting Agency Comment Spec In Lab Darryl Burgos MD CHEMISTRY ORDERABLES [facility] [employer] * (ABNORMAL) CBC (with Diff) (10/13/2011 4:01 PM EDT) White Blood Cell 6.1 4.0 - 10.0 x10(3)/mc L CERNER MILLENNIUM Red Blood Cell 4.62 3.93 - 5.22 x10(6)/mc L CERNER MILLENNIUM Hemoglobin 12.5 11.2 - 15.7 gm/dL CERNER MILLENNIUM Hematocrit 38.5 34.0 - 45.0 % CERNER MILLENNIUM Mean Cell Volume 83.3 79.0 - 94.0 fL CERNER MILLENNIUM Mean Cell Hemoglobin 27.1 26.6 - 32.2 pg CERNER MILLENNIUM Mean Cell Hemoglobin Concentration 32.5 32.0 - 36.5 gm/dL CERNER MILLENNIUM Platelet 353 145 - 370 x10(3)/mc L CERNER MILLENNIUM RDW Standard Deviation 48.1(H) 35.0 - 46.0 fL CERNER MILLENNIUM RDW coefficient of variation 16.2(H) 10.9 - 14.4 % [facility] Mean Platelet Volume 9.0 9.0 - 12.0 fL [facility] NATHANIUM Blood specimen (specimen) 10/13/2011 4:01 PM EDT 10/13/2011 4:08 PM EDT Narrative Resulting Agency Comment Spec In Lab Darryl Burgos MD HEMATOLOGY ORDERABLE S Performing Organization Address [facility] Co de Phone Number [facility] * TSH (10/13/2011 4:01 PM EDT) Thyroid Stimulating Hormone 1.07 0.27 - 4.20 mcIU/mL [facility] Blood specimen (specimen) 10/13/2011 4:01 PM EDT 10/13/2011 4:08 PM EDT Narrative Resulting Agency Comment Spec In Lab Darryl Burgos MD CHEMISTRY ORDERABLES Performing Organization Address [facility] Co de Phone Number [facility] * VIT D Total Evaluation (10/13/2011 4:01 PM EDT) Vitamin D Total 25 OH 39 30 - 100 ng/mL [facility] Comment: Deficient <10 ng/mL Insufficient 10 to [...] a total Vitamin D concentration is reported. Please note, the performing location for this test has changed. ??As of 05/13/2011 the Vitamin D Total, 25 Hydroxy assays are being analyzed by the [facility] Chemistry Laboratory. ??There is NO CHANGE in units. ??Please contact the chemistry laboratory at [phone] with questions. Blood specimen (specimen) 10/13/2011 4:01 PM EDT 10/13/2011 4:08 PM EDT Narrative Resulting Agency Comment Spec In Lab Darryl Burgos MD CHEMISTRY ORDERABLES Performing Organization Address [facility] Co de Phone Number [employer] * (ABNORMAL) Protein Electrophoresis, serum (10/13/2011 4:01 PM EDT) Total Prot Electrophoresis 7.1 6.1 - 8.0 gm/dL CERNER MILLENNIUM Albumin Electrophoresis 4.35 3.60 - 6.00 gm/dL CERNER MILLENNIUM Alpha 1 Globulin 0.21 0.10 - 0.30 gm/dL CERNER MILLENNIUM Alpha 2 Globulin 0.96(H) 0.40 - 0.90 gm/dL CERNER MILLENNIUM Beta Globulin 0.65 0.50 - 1.00 gm/dL CERNER MILLENNIUM Gamma Globulin 0.93 0.50 - 1.30 gm/dL CERNER MILLENNIUM M1 Band None Detected None Detected gm/dL CERNER MILLENNIUM Scan See Note CERNER MILLENNIUM Comment:Please see scanned r eport in Chart Review under the [facility] Laboratory Heading. Blood specimen (specimen) 10/13/2011 4:01 PM EDT 10/13/2011 4:08 PM EDT Narrative Resulting Agency Comment Spec In Lab Darryl Burgos MD CHEMISTRY ORDERABLES Performing Organization Address [facility] Co de Phone Number CERMAGDALENA MILLENNIUM * Sedimentation rate (10/13/2011 4:01 PM EDT) Sedimentation Rate Automated 11 0 - 20 mm/hr CERNER MILLENNIUM Blood specimen (specimen) 10/13/2011 4:01 PM EDT 10/13/2011 4:08 PM EDT Narrative Resulting Agency Comment Spec In Lab Darryl Burgos MD HEMATOLOGY ORDERABLE S CERMAGDALENA WALLERENNIUM * Hepatic Function Panel (10/13/2011 4:01 PM EDT) Protein, Total 7.3 6.4 - 8.3 gm/dL CERNER MILLENNIUM Albumin 4.4 3.2 - 5.2 gm/dL CERNER MILLENNIUM Aspartate Aminotransferase 22 0 - 30 unit/L CERNER MILLENNIUM Alanine Aminotransferase 17 0 - 30 unit/L CERNER MILLENNIUM Alkaline Phosphatase 59 40 - 104 unit/L CERNER MILLENNIUM Bilirubin, Total 0.4 0.2 - 1.3 mg/dL CERNER MILLENNIUM Bilirubin, Direct 0.1 0.0 - 0.3 mg/dL CERNER MILLENNIUM Blood specimen (specimen) 10/13/2011 4:01 PM EDT 10/13/2011 4:08 PM EDT Narrative Resulting Agency Comment Spec In Lab Darryl Burgos MD CHEMISTRY ORDERABLES JOHN EVANSIUM * Basic Metabolic Panel (non-fasting) (10/13/2011 4:01 PM EDT) Pathologist [facility] Glucose 123 60 - 199 mg/dL CERNER MILLENNIUM Comment:Diabetes: >=200 mg/d L plus symptoms Blood Urea Nitrogen 17 8 - 18 mg/dL CERNER MILLENNIUM Creatinine 0.77 0.70 - 1.20 mg/dL CERNER MILLENNIUM Comment: Please note that the pediatric reference intervals supplied above were not validated at [facility]. Results from pediatric patients should be interpreted [...] - 107 mmol/L CERNER MILLENNIUM Carbon Dioxide 31 22 - 31 mmol/L CERNER MILLENNIUM Anion Gap 9 5 - 15 mmol/L CERNER MILLENNIUM Calcium 9.1 8.5 - 10.5 mg/dL CERNER MILLENNIUM Est [...] J Am Soc Nephrol;6:1963-72. Blood specimen (specimen) 10/13/2011 4:01 PM EDT 10/13/2011 4:08 PM EDT Narrative Resulting Agency Comment Spec In Lab Darryl Burgos MD CHEMISTRY ORDERABLES [facility] documented in this encounter Visit Diagnoses Diagnosis Psoriatic arthritis- Primary Psoriatic arthropathy documented in this encounter Care Teams Independent Trader Relationship Specialty Start Date End Date Nayla Miramontes MD [address] [place] [address] [address] [place] [address] PCP - General 05/21/11 05/10/21 documented as of this encounter
--- OUTSIDE RECORDS SUMMARY | 2024-03-07 19:04 | XMS_ITS | Encounter Summary ---
Author Organization [facility] [place] [address] Care Team Providers Care Trick Rodeo Rider Name Role Phone Nayla Miramontes MD Primary Care Provider [phone] Encounter Details Date Type Department Care Team (Late st Contact Info) Description 08/12/2012 [facility] [place] [address] Danuta Johnston, SENIOR ACCOUNT MANAGER Social History Tobacco Use Types Packs/Day Years [...] 2:30 PM EST Office Visit [place] [address] Alcides Bonilla MD [facility] [place] [address] 04/06/2049 9:00 AM EST Hospital Encounter [place] [id number] Harry Guerrero MD [facility] [place] [address] documented as of this encounter Visit Diagnoses Not on filedocumented in this encounter Care Teams Trick Rodeo Rider Relationship Specialty Start Date End Date Nayla Miramontes MD [address] [place] [address] PCP - General 05/21/11 05/10/21 documented as of this encounter
--- OUTSIDE RECORDS SUMMARY | 2024-03-07 19:04 | XMS_ITS | Encounter Summary ---
Author Organization [facility] [place] [address] Care Team Providers Care Jockey Room Custodian Name Role Phone Nayla Miramontes MD Primary Care Provider [phone] Reason for Visit * Reason Comments Back Pain Encounter Details Date Type Department Care Team (Late st Contact Info) Description 08/17/2012 9:00 AM EDT Office [place] [address] CLINIC, Jacobo Hancock, [place] [facility] [place] [place] [address] Darryl Burgos MD [facility] [place] [address] Jojo Patton, PT [facility] CENTER Chronic low back pain (Primary Dx) Discharge Disposition: Home Social History [...] as of this encounter Progress Notes * Jojo Patton, PT - 08/17/2012 8:54 AM EDT Roxann Ceja was referred to [facility] for a physical therapy consult at the request of ADALID Scruggs. She was seen with the expectations to see if there is anything that can be done from an exercise perspective to ease the pain and improve her ability to function. History of Present Illness: Ms. Ceja reports spine stiffness, inability to bend to don/doff socks and shoes, difficulty negotiating stairs, Ms. Ceja currently complains of lumbar spine stiffness, difficulty moving the first hour of the day. She reports no radiation of symptoms into lower extremity. Ms. Ceja's functional self care goal includes: better with: walk, stand, sit, negotiate stairs, bend (shoes/socks and daily routine), exercise routine. Past Medical History: diabetes mellitus, insulin pump, thyroid disease, skin disease, GERD (gastroesophageal reflux disease), hyperlipidemia, hypertension, depression anxiety, asthma, cortical cataract 05/05/2011, PDR (proliferative diabetic retinopathy) 05/25/2011, spinal scoliosis. Past Surgical History: retinal laser surgery; GI endoscopy/biopsy Social History: Ms. 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 Physical Exam: Ms. Ceja is a pleasant 56 y.o. female who moves about in the exam room with slow steady pace, no reciprocal arm or pelvis/trunk motion, no assistive device Seated posture: mild forward head, protracted/elevated scapulae, increased thoracic kyphosis, decreased lumbar lordosis (unsupported in exam room chair, right hip abducted more so than left hip Seated with Joy Superoll: improved seated posture with minimal deviation Standing posture: spinal scoliosis thoracic, lumbar structural rotoscoliosis, left convex primarily; right hip abducted and externally rotated more so than left. Heel and toe walk, able with UE support Squat and return to stand: mild challenge partial squat (lumbar, bilateral hip and knee pain are limiting per patient) Lumbar AROM: flexion 40 degrees, extension 5 degrees Reflexes: patella 2, Achilles 1 bilaterally Physical Therapy Assessment: Ms. Ceja has limited spine flexion and extension range of motion combined with decreased bilateral knee and hip motion, decreased general conditioning over the past few years. She has spinal scoliosis, psoriatic arthritis, knee and spine osteoarthritis and hasceased completing a consistent exercise program. The cessation of consistent gentle range of motionand conditioning for spine and lower extremity joints is perhaps the most detrimental, yet also themost easily remedied (by Beginning an independent, consistent exercise program). I believe that these deficits can improve with physical therapy treatments directed to the confucianism of spine and lower extremity joint range of motion and conditioning. Ms. Ceja has a good rehabilitation potential, if she is willing to be consistent with independent exercise. She may not be able to travel from [place] for regular appointments and independent exercise will likely be the most therapeutic. Treatment Plan: The natural history of spine and joint stiffness and decreased mobility and rational for exercise based treatment was reviewed. Ms. Angus Garner was given a home exercise program consisting of confucianism of spine motion and general conditioning: morning and evening: prone sustained or propped in prone 5-10 minutes, 10-20 press-ups; every 2 hours daily: 10-20: standing extensions; evening seated, standing or supine lumbar flexion 10-20 reps; standing at countertop, (hands on counter for support) :balance each leg 60 seconds, 3 reps, 10-20 reps hip abduction and mini squats; gym program: daily knee range of motion stationary biking, 10-15 minutes, gentle pace and gentle resistance, light resistive back extensions and Nautilus type circuit, yoga 3 days per week; progress to walking treadmill or community 10-30 minutes daily. Along with the prescribed exercises, we discussed the principles of symptom self monitoring and posture correction (prefers Joy Powers).Reviewed safety concepts from Cristhian Hamilton's Treat Your Own Back, knows to discontinue any movementor activity that causes true worsening or peripheralization of symptoms. She will call with any questions, concerns, or if the pain worsens. Ms. Angus Garner will return to [facility] for a follow up appointment in 2-3 weeks, if able to travel from [facility]. [place]); then she may be ready to progress her home exercise program. Physical Therapy Goals in 4-6 weeks: 1) Able to demonstrate/discuss home exercise program 2) Able to demonstrate/discuss postural correction 55 minutes were spent interviewing, assessing, and instructing Roxann Garner in a home exercise program. documented in this encounter Plan of Treatment Upcoming Encounters Date Type Department Care Team (Late st Contact Info) Description 05/17/2024 2:30 PM EST Office Visit [place] [address] Alcides Bonilla MD [facility] [place] [address] 04/06/2049 9:00 AM EST Hospital Encounter [place] [phone] Harry Guerrero MD [facility] [place] [address] documented as of this encounter Visit Diagnoses Diagnosis Chronic low back pain- Primary Lumbago documented in this encounter Care Teams Jockey Room Custodian Relationship Specialty Start Date End Date Nayla Miramontes MD [facility] [address] [facility] [address] [place] [address] PCP - General 05/21/11 05/10/21 documented as of this encounter
--- OUTSIDE RECORDS SUMMARY | 2024-03-07 19:04 | XMS_ITS | Encounter Summary ---
Author Organization Formerly [facility] Address [facility] [place] [address] Care Team Providers Care Structural Test Engineer Name Role Phone Nayla Miramontes MD Primary Care Provider [phone] Encounter Details Date Type Department Care Team (Late st Contact Info) Description 05/10/2012 4:44 PM EST - 05/10/2012 11:59 PM [facility] Hospital Encounter XRay at [address] [place] [address] Social History Tobacco Use Types Packs/Day Years [...] CELECOXIB (CELEBREX ORAL) Take by mouth. 05/14/2016 tolterodine (DETROL) 2 mg tablet Take 2 mg by mouth 2 times daily. 05/16/2015 methotrexate 2.5 mg tablet Take 8 tablets by mouth once a week. 32 tablet 2 05/10/2012 07/20/2012 gabapentin (NEURONTIN) 400 mg capsule Take 1 capsule by mouth nightly. 60 capsule 3 05/10/2012 07/25/2013 hydroxychloroquine (PLAQUENIL) 200 mg tablet Take 1 tablet by mouth 2 times daily. 120 tablet 2 05/10/2012 01/12/2013 ferrous sulfate 324 mg (65 mg iron) TbEC Take 324 mg by mouth daily. 08/25/2013 Diabetic Supplies, Miscellan. MiscIndications:Jaleesa peres mellitus 1 each by Misc.(Non-Drug; Combo Route) route 6 times daily. Diagnosis: 250.91 Change infusion sets every 3 days Manually fax to [employer] Diabetes 600 each 3 05/30/2011 07/03/2014 insulin [...] 06/17/2010 02/23/2013 documented as of this encounter Plan of Treatment Upcoming Encounters Date Type Department Care Team (Late st Contact Info) Description 05/17/2024 2:30 PM EST Office [place] [address] Alcides Bonilla MD [facility] [place] [address] 04/06/2049 9:00 AM EST Hospital En[place] [phone] Harry Guerrero MD [facility] [place] [address] documented as of this encounter Visit Diagnoses Not on filedocumented in this encounter Care Teams Structural Test Engineer Relationship Specialty Start Date End Date Nayla Miramontes MD [facility] [address] [place] [address] PCP - General 05/21/11 05/10/21 documented as of this encounter
--- OUTSIDE RECORDS SUMMARY | 2024-03-07 19:04 | XMS_ITS | Encounter Summary ---
Author Organization [facility] [place] [address] Care Team Providers Care Auto Servicer Name Role Phone Nayla Miramontes MD Primary Care Provider [phone] Encounter Details Date Type Department Care Team (Late st Contact Info) Description 07/01/2012 7:30 AM EDT Office [place] [address] Iron Wing MD [facility] [place] [address] Type 1 diabetes mellitus (Primary Dx) Discharge Disposition: Home Social [...] Sign Reading Time Taken Comments Blood Pressure 112/69 07/01/2012 8:25 AM EDT Pulse 75 07/01/2012 8:25 AM EDT Temperature - - Respiratory Rate - - Oxygen Saturation - - Inhaled Oxygen Concentration - - Weight 86 kg (189 lb 9.6 oz) 07/01/2012 8:25 AM EDT Height - - Body Mass Index 30.84 05/10/2012 4:14 PM EST documented in this encounter Progress Notes * Iron Wing MD - 07/01/2012 7:54 PM EDT Component Latest Ref Rng 07/01/2012 Glucose Lvl 60 - 199 mg/dL 138 BUN 8 - 18 mg/dL 20 (H) Creatinine 0.70 - 1.20 mg/dL 0.80 Sodium 135 - 145 mmol/L 140 Potassium 3.5 - 5.0 mmol/L 4.3 Chloride 98 - 107 mmol/L 102 CO2 22 - 31 mmol/L 31 Anion Gap 5 - 15 mmol/L 7 Calcium 8.5 - 10.5 mg/dL 9.4 Estimated GFR >=60 >60 Hemoglobin A1C 4.3 - 6.1 % 8.2 (H) Est Avg Gluc 189 TSH 0.27 - 4.20 mcIU/mL 2.84 Roxann presents for followup of her type 1 diabetes of 40 years duration. She has had laser to both eyes starting in 1995 and has had multiple treatments since that time. He had a small preretinal hemorrhage on the left eye just one week ago, while this appears to be clearing quickly. She is followed by the retinal community health agent as well. Roxann continues using her Medtronic insulin pump with Humalog insulin. She is doing better with this. Her current basal rates are midnight to 4 a.m. 0.6 units per hour, 4 a.m. to 8 a.m. 0.8 units per hour, 8 a.m. to 4 p.m. 0.9 units per hour, 4 p.m. to 7 p.m. 0.7 units per hour, and 7 p.m. to midnight 0.8 units per hour. She uses a carb ratio of 12 at breakfast, 10 at lunch and supper. She also uses a sensitivity of 25. She carb counts and is currently on Weight Watchers with some modest weight loss. She has been dealing with depression over a long period of time and is currently taking Lexapro 40 mg per day. In addition to this, she suffers from arthritis which is quite painful in the shoulders and knees, apparently this is a psoriatic arthritis for which she takes a combination of Plaquenil and methotrexate and is followed by Dr. Burgos. Her hemoglobin A1c today was fair at 8.2%. Her TSH was normal as was her basic metabolic profile. Her calcium levels were also normal at 9.4. Her last urinary albumin in 12/2011 was normal at 14 mg/g of creatinine. Her current thyroxine dose is 50 mcg per day on Mondays and Fridays and 75 mcg on other days. She will call to confirm that dose, but I will make no change at this point based on her normal TSH. All in all, Roxann is doing reasonably well. I was particularly encouraged since she seems to deal with temporary elevations of her glucose by taking appropriate corrections. She is trying to prevent a repeat of her severe episode of hyperosmolar coma associated with ketoacidosis, which was nearly fatal to her several years ago. I encouraged her to get a psychiatric consult and she has no one following her at this point and she will call [facility] to do this. documented in this encounter Plan of Treatment Upcoming Encounters Date Type Department Care Team (Late st Contact Info) Description 05/17/2024 2:30 PM EST Office [place] [address] Alcides Bonilla MD [facility] [place] [address] 04/06/2049 9:00 AM EST Hospital En[place] [address] Harry Guerrero MD [facility] [place] [address] documented as of this encounter Procedures Procedure Name Priority Date/Time Associated Diagnosis Comments TSH Routine 07/01/2012 7:36 AM EDT Type 1 diabetes mellitus HEMOGLOBIN A1C Routine 07/01/2012 7:36 AM EDT Type 1 diabetes mellitus BASIC METABOLIC PANEL Routine 07/01/2012 7:36 AM EDT Type 1 diabetes mellitus documented in this encounter Results * (ABNORMAL) Basic Metabolic Panel (non-fasting) (07/01/2012 7:36 AM EDT) [facility] Glucose 138 60 - 199 mg/dL CERNER MILLENNIUM Comment:Diabetes: >=200 mg/d L plus symptoms Blood Urea Nitrogen 20(H) 8 - 18 mg/dL CERNER MILLENNIUM Creatinine 0.80 0.70 - 1.20 mg/dL CERNER MILLENNIUM Comment: Please note that the pediatric reference intervals supplied above were not validated at [facility]. Results from pediatric patients should be interpreted [...] - 31 mmol/L CERNER MILLENNIUM Anion Gap 7 5 - 15 mmol/L CERNER MILLENNIUM Calcium 9.4 8.5 - 10.5 mg/dL CERNER MILLENNIUM Est [...] with diabetic kidney disease. References: http://nkdep.nih.gov/resources/NKDEP_Suggestn4Labs_0606_508.pdf http://www.kidney.org/professionals/kls/pdf/faq_gfr.pdf Kati K, Carissa NA, Eriberto AK, Steven TS, Patricia AD, Tawanda STACEY. Relative performance of the MDRD and CKD-EPI equations for estimating glomerular filtration rate among patients with varied clinical presentations. Clin J Am Soc Nephrol;6:1963-72. Blood specimen (specimen) 07/01/2012 7:36 AM EDT 07/01/2012 7:44 AM EDT Narrative Resulting Agency Comment Spec In Lab Iron Wing MD CHEMISTRY ORDERABL ES [facility] * (ABNORMAL) Hemoglobin A1c (07/01/2012 7:36 AM EDT) Hemoglobin A1c 8.2(H) 4.3 - 6.1 % [facility] Comment: The [place] Diabetes Association (ADA) has stated that HbA1c [...] Diabetes Care 2013:36;suppl 1:S11-S66. Estimated Average Glucose 189 mg/dL [facility] Comment: eAG equivalents for HbA1c percentages: HbA1c(%) [...] into estimated average glucose values. ??Diabetes Care 2008:31(8):1934-2890. Blood specimen (specimen) 07/01/2012 7:36 AM EDT 07/01/2012 7:44 AM EDT Narrative Resulting Agency Comment Spec In Lab Iron Wing MD CHEMISTRY ORDERABL ES Performing Organization Address City/State/[facility] Co de Phone Number [facility] DE LEON * TSH (07/01/2012 7:36 AM EDT) Thyroid Stimulating Hormone 2.84 0.27 - 4.20 mcIU/mL [facility] Blood specimen (specimen) 07/01/2012 7:36 AM EDT 07/01/2012 7:44 AM EDT Narrative Resulting Agency Comment Spec In Lab Iron Wing MD CHEMISTRY ORDERABL ES [facility] documented in this encounter Visit Diagnoses Diagnosis Type 1 diabetes mellitus- Primary Type I (juvenile type) diabetes mellitus without mention of complication, not stated as uncontrolled documented in this encounter Care Teams Auto Servicer Relationship Specialty Start Date End Date Nayla Miramontes MD [address] [place] [address] PCP - General 05/21/11 05/10/21 documented as of this encounter
--- OUTSIDE RECORDS SUMMARY | 2024-03-07 19:04 | XMS_ITS | Encounter Summary ---
Author Organization [facility] [place] [address] Care Team Providers Care Net Software Engineer Name Role Phone Nayla Miramontes MD Primary Care Provider [phone] Reason for Visit * Reason Onset Date Comments Labs Only 12/19/2011 Encounter Details Date Type Department Care Team (Late Contact Info) Description 12/19/2011 Telephone [place] [phone] Iron Wing MD [facility] [place] [address] Labs Only Social History Tobacco Use Types [...] 2:30 PM EST Office Visit [place] [phone] Alcides Bonilla MD [facility] [place] [address] 04/06/2049 9:00 AM EST Hospital Encounter Gastroenterology at [facility] [place] [place] [address] Harry Guerrero MD [facility] DR [place] [address] documented as of this encounter Results * (ABNORMAL) Basic Metabolic Panel (non-fasting) (07/01/2012 7:36 AM EDT) [facility] Signature Glucose 138 60 - 199 mg/dL CERNER [...] Lab Iron Wing MD CHEMISTRY ORDERABL ES [facility] * (ABNORMAL) Hemoglobin A1c (07/01/2012 7:36 AM EDT) Hemoglobin A1c 8.2(H) 4.3 - 6.1 % [facility] Comment: The [place] Diabetes Association (ADA) has stated that HbA1c [...] 2013:36;suppl 1:S11-S66. Estimated Average Glucose 189 mg/dL [facility] Comment: eAG equivalents for HbA1c percentages: [...] into estimated average glucose values. ??Diabetes Care 2008:31(8):4267-9858. Blood specimen (specimen) 07/01/2012 7:36 AM EDT 07/01/2012 7:44 AM EDT Narrative Resulting Agency Comment Spec In Lab Iron Wing MD CHEMISTRY ORDERABL ES [facility] * TSH (07/01/2012 7:36 AM EDT) Thyroid Stimulating Hormone 2.84 0.27 - 4.20 mcIU/mL BISHOPMAGDALENA DE LEON Blood specimen (specimen) 07/01/2012 7:36 AM EDT 07/01/2012 7:44 AM EDT Narrative Resulting Agency Comment Spec In Lab Iron Wing MD CHEMISTRY ORDERABL ES [facility] documented in this encounter Visit Diagnoses Diagnosis Type 1 diabetes mellitus- Primary Type I (juvenile type) diabetes mellitus without mention of complication, not stated as uncontrolled documented in this encounter Care Teams Net Software Engineer Relationship Specialty Start Date End Date Nayla Miramontes MD [address] [place] [address] PCP - General 05/21/11 05/10/21 documented as of this encounter
--- OUTSIDE RECORDS SUMMARY | 2024-03-07 19:04 | XMS_ITS | Encounter Summary ---
Author Organization [facility] [place] [address] Care Team Providers Care Lead Assembler Name Role Phone Nayla Miramontes MD Primary Care Provider [phone] Reason for Visit * Reason Onset Date Comments Medication Refill 05/30/2011 Encounter Details Date Type Department Care Team (Late st Contact Info) Description 05/30/2011 Refill [place] [address] Yulisa Feng MD [facility] [address] [place] [address] Diabetes mellitus (Primary Dx) Social History Tobacco Use Types [...] 2:30 PM EST Office [place] [phone] Alcides Bonilla MD [facility] [place] [address] 04/06/2049 9:00 AM EST Hospital Encounter [place] [address] Harry Guerrero MD [facility] DR [place] [address] documented as of this encounter Visit Diagnoses Diagnosis Diabetes mellitus- Primary Type II or unspecified type diabetes mellitus without mention of complication, not stated as uncontrolled documented in this encounter Care Teams Lead Assembler Relationship Specialty Start Date End Date Nayla Miramontes MD [address] [place] [address] PCP - General 05/21/11 05/10/21 documented as of this encounter
--- OUTSIDE RECORDS SUMMARY | 2024-03-07 19:04 | XMS_ITS | Encounter Summary ---
Author Organization Formerly [facility] [address] Care Team Providers Care Buttermilk Drier Operator Name Role Phone Nayla Miramontes MD Primary Care Provider [phone] Encounter Details Date Type Department Care Team (Late Contact Info) Description 01/04/2013 [place] [phone] Nadiya Montalvo LPN Social History Tobacco Use [...] Telephone Encounter - Nadiya Montalvo LPN - 01/04/2013 2:46 PM EDT Received call from [employer] asking to fax a form to us to change patient's name as this patient has had a name change. Called patient who verifies name change to Marcial. Patient was also told of need to schedule follow up appointment as she was last seen 07/01/[address] Wing who retired. Patient agreeswith plan of care. Call transferred to paralegal legal secretary. documented in this encounter Plan of Treatment Upcoming Encounters Date Type Department Care Team (Late st Contact Info) Description 05/17/2024 2:30 PM EST Office [place] [address] Alcides Bonilla MD [facility] [place] [address] 04/06/2049 9:00 AM EST Hospital En[place] [address] Harry Guerrero MD [facility] DR [place] [address] documented as of this encounter Visit Diagnoses Not on filedocumented in this encounter Care Teams Buttermilk Drier Operator Relationship Specialty Start Date End Date Nayla Miramontes MD [facility] [address] [facility] [address] [place] [address] PCP - General 05/21/11 05/10/21 documented as of this encounter
--- OUTSIDE RECORDS SUMMARY | 2024-03-07 19:04 | XMS_ITS | Encounter Summary ---
Author Organization [facility] [place] [address] Care Team Providers Care Catheter Finisher And Inspector Name Role Phone Nayla Miramontes MD Primary Care Provider [phone] Reason for Visit * Reason Comments Follow-up Encounter Details Date Type Department Care Team (Late st Contact Info) Description 12/19/2011 12:30 PM EDT Office Visit [place] [address] Iron Wing MD [facility] DR [place]OCRIN[place] [address] Type 1 diabetes mellitus (Primary Dx) Discharge [...] Sign Reading Time Taken Comments Blood Pressure 116/59 12/19/2011 1:36 PM EDT Pulse 74 12/19/2011 1:36 PM EDT Temperature - - Respiratory Rate - - Oxygen Saturation - - Inhaled Oxygen Concentration - - Weight 85.1 kg (187 lb 9.6 oz) 12/19/2011 1:36 P M EDT Height 165.1 cm (5' 5) 12/19/2011 1:36 PM EDT Body Mass Index 31.22 12/19/2011 1:36 PM EDT documented in this encounter Progress Notes * Iron Wing MD - 12/19/2011 2:34 PM EDT Component Latest Ref Rng 12/19/2011 U Creatinine mg/dL 22 U Ran Malb Conc mg/L <3.0 U Ran Malb Calc mcg/mg Cr <14 Hemoglobin A1C 4.3 - 6.1 % 8.9 (H) Est Avg Gluc mg/dL 209 Creatinine 0.70 - 1.20 mg/dL 0.86 Estimated GFR >=60 >60 Roxann presents for followup of her type 1 diabetes of many years duration. She continues using her insulin pump with Humalog insulin and had no recurrence of the severe control issue that she dealt with in April, when she was admitted for hyperosmolarcoma, combined with diabetic ketoacidosis. She currently is using her insulin pump, although she is not using the continuous glucose sensor that was obtained because she hates it. She claims that it does not gave accurate representation of her blood sugars and she has chosen to do five fingersticks per day rather than using a sensor. On reviewing her insulin pump settings, she is using 0.6 units an hour from midnight to 4 a.m., 0.8 units an hour from 4 a.m. to 8 a.m., 0.9 units an hour from 8 a.m. to 4 p.m., and 0.5 units per hour from 4 p.m. to midnight. She has been using a carb ratio of 12 and a sensitivity of 25. She claims to be quite skilled at carb counting, although her life has been completely chaotic with the of her father requiring travel back and forth to [place]. She also lost a granddaughter a year and half ago from acute leukemia and she continues to be concerned with a number of family affairs. In addition to this, she has a major depression for which she takes Cymbalta and Lexapro and is followed by a psychiatrist near her home. She is frustrated by her continued depression and anxiety and will be meeting with her psychiatrist next week. Her A1c today is not at goal at 8.9%. I discussed this with her and pointed out the importance of improving her glycemic control. It sounds that her blood sugars rise in the afternoon and continue in to the evening. Because of this, I changed the pump settings with her increasing her 4 p.m. to midnight basal from 0.5 to 0.7 units per hour. I also changed her carb ratio at lunch and supper from 12 to 10. She will carefully count her carbs and see if she can improve her blood sugars later in the day, thus improving her A1c. I will see her back for followup in four months. documented in this encounter Plan of Treatment Upcoming Encounters Date Type Department Care Team (Late st Contact Info) Description 05/17/2024 2:30 PM EST Office Visit [place] [address] Alcides Bonilla MD [facility] [place] [address] 04/06/2049 9:00 AM EST Hospital Encounter [place] [address] Harry Guerrero MD [facility] DR [place]STROENTEROLOG[place] [address] documented as of this encounter Procedures Procedure Name Priority Date/Time Associated Diagnosis Comments U ALBUMIN/CRE RATIO Routine 12/19/2011 1 2:41 PM EDT CREATININE Routine 12/19/2011 12:22 PM EDT HEMOGLOBIN A1C Routine 12/19/2011 12:22 PM EDT documented in this encounter Results * MICROALBUMIN, URINE, RANDOM (12/19/2011 12:41 PM EDT) Creatinine, Urine 22 mg/dL CE RNER MILLENNIUM Albumin, Urine <3.0 mg/L CERNE R MILLENNIUM Albumin / Creatinin Ratio, Urine <14 mcg/mg Cr BISHOPNER MILLENNIUM Comment: Reference Range* Random collection (mcg/mg creatinine) Normal ?<30 Microalbuminuria ?? 30 - 300 Clinical Albuminuria ?? >300 *[place] [employer]. Diabetic Nephropathy. Diabetes Care 1997;(Suppl 1):S24-S27 Exercise within 24 hour, infection, fever, CHF, marked hyperglycemia, and marked hypertension may elevate urinary albumin excretion over baseline values. Urine specimen (specimen) 12/19/2011 12:41 PM EDT 12/19/2011 12:55 PM EDT Narrative Resulting Agency Comment Spec In Lab Iron Wing MD URINE ORDERABLES [facility] * CREATININE, SERUM (12/19/2011 12:22 PM EDT) Creatinine 0.86 0.70 - 1.20 mg/dL [facility] Comment: Please note that the pediatric reference intervals supplied above were not validated at [facility]. Results from pediatric patients should be interpreted in conjunction to the patient's age, height and muscle mass. Est Glomerular Filtration Rate >60 >=60 [facility] Comment: The National Kidney Disease Education Program [...] J Am Soc Nephrol;6:1963-72. Blood specimen (specimen) 12/19/2011 12:22 PM EDT 12/19/2011 12:41 PM EDT Narrative Resulting Agency Comment Spec In Lab Iron Wing MD CHEMISTRY ORDERABL ES [facility] * (ABNORMAL) HEMOGLOBIN A1C (12/19/2011 12:22 PM EDT) Hemoglobin A1c 8.9(H) 4.3 - 6.1 % [facility] Estimated Average Glucose 209 mg/dL [facility] Comment: eAG equivalents for HbA1c percentages: HbA1c(%) ?eAG(mg/dL) 6.0 ?126 6.5 ?140 7.0 ?154 7.5 ?169 8.0 ?183 8.5 ?197 9.0 ?212 9.5 ?226 10.0 ? 240 Limitations: The eAG calculation has not been validated on women, individuals below 18 years old and above 70 years old, and individuals with hemoglobinopathies. Additional resources are available on the ADA website: ??http://professional.diabetes.org/glucosecalculator.aspx Reference: Rich MCDANIEL, Brenda J, Wallace R, et al. ??Translating the A1C assay into estimated average glucose values. ??Diabetes Care 2008:31(8):7268-5015. Blood specimen (specimen) 12/19/2011 12:22 PM EDT 12/19/2011 12:41 PM EDT Narrative Resulting Agency Comment Spec In Lab Iron Wing MD CHEMISTRY ORDERABL ES Performing Organization Address City/State/[facility] [place] Phone Number [facility] documented in this encounter Visit Diagnoses Diagnosis Type 1 diabetes mellitus- Primary Type I (juvenile type) diabetes mellitus without mention of complication, not stated as uncontrolled documented in this encounter Care Teams Catheter Finisher And Inspector Relationship Specialty Start Date End Date Nayla Miramontes MD [address] [place] [address] PCP - General 05/21/11 05/10/21 documented as of this encounter
--- OUTSIDE RECORDS SUMMARY | 2024-03-07 19:04 | XMS_ITS | Encounter Summary ---
Author Organization [facility] [place] [address] Care Team Providers Care Environmental Specialist Name Role Phone Nayla Miramontes MD Primary Care Provider [phone] Reason for Visit * Reason Comments Other follow up Encounter Details Date Type Department Care Team (Late st Contact Info) Description 12/15/2011 8:15 AM EDT Follow-[place] [address] Darryl Burgos MD [facility] [place] [address] Psoriatic arthritis (Primary Dx); Psoriasis; Diabetic neuropathy Discharge Disposition: Home Social History Tobacco Use [...] Sign Reading Time Taken Comments Blood Pressure 130/70 12/15/2011 8:39 AM EDT Pulse 68 12/15/2011 8:39 AM EDT Temperature - - Respiratory Rate - - Oxygen Saturation - - Inhaled Oxygen Concentration - - Weight 85.3 kg (188 lb) 12/15/2011 8:39 AM EDT Height 165.1 cm (5' 5) 12/15/2011 8:39 AM EDT Body Mass Index 31.28 12/15/2011 8:39 AM EDT documented in this encounter Patient Instructions * Patient Instructions* Darryl Burgos MD - 12/15/2011 9:13 AM EDT 1) Continue hydroxychloroquine and methotrexate. 2) Continue daily folic acid while on methotrexate. 3) Increase bedtime neurontin to 400 mg. 4) Check labs today. 5) Return to follow up in three months. documented in this encounter Progress Notes * Darryl Burgos MD - 12/15/2011 9:00 AM EDT REASON FOR VISIT: Follow up for psoriatic arthritis and psoriasis. INTERVAL HISTORY: The pt was a 56-year-old female, who returned for a follow up of psoriatic arthritis and psoriasis. The pt noted that since her last visit on October 13, 2011, she had a very stressful summer due to her father's passing from a brain tumor. Otherwise, she continued to do well with her psoriatic arthritis. However, she did complain of worsening bilateral knee pain, particularly on climbing stairs. The left knee was worse than the right knee. She also complained of jaw pain due to recent tooth extraction for an infection. She continued to be on weekly oral methotrexate, 20 mg in conjunction with twice daily hydroxychloroquine, 200 mg for immunosuppression. She had some outbreak of psoriasis on her skin during the summer when she was under stress; otherwise, she felt that her psoriasis was stable. She was on bedtime neurontin, 300 mg for diabetic neuropathy. She was not able to increase her bedtime neurontin from 300 mg to 600 mg as her insurance company refused to cover a higher dose of neurontin. She tolerated methotrexate well without any fever, chest pain, dyspnea, nausea, dysuria, headache, easy bruising, and polydipsia. PAST MEDICAL HISTORY: Psoriatic arthritis Psoriasis Diabetes [...] her family. 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 She was currently applying for disability. FAMILY HISTORY: ??Mother - Hypertension, hyperlipidemia, hypothyroidism; of cardiac aneurysm at the age of 48. Father - Stroke x two; of a brain tumor at the age of 82. ? PHYSICAL EXAMINATION: Vitals 12/15/2011 SYSTOLIC 130 DIASTOLIC 70 PULSE 68 HEIGHT 65 in WEIGHT 188 lbs BODY MASS INDEX 31.28 kg/m2 General - Alert, co-operative, no apparent [...] deficit, DTR = +1/4 b/l and throughout. IMPRESSION : 1) Psoriatic arthritis in a [...] for topical corticosteroid should it progress. 3) Diabetic neuropathy. The pt will increase bedtime dose of gabapentin to 400 mg for her diabetic neuropathy. 4) Osteoarthritis of both knees. The pt's bilateral knee pain is related to moderate osteoarthritisof the knees. I had a discussion with the pt regarding treatment options. The pt decline surgical consultation at this point, and will focus on pain management for now. RECOMMENDATIONS: 1) Continue hydroxychloroquine and methotrexate. 2) Continue daily folic acid while on methotrexate. 3) Increase bedtime neurontin to 400 mg. 4) Check labs today. 5) Return to follow up in three months. ? Darryl Burgos MD, PhD documented in this encounter Plan of Treatment Upcoming Encounters Date Type Department Care Team (Late st Contact Info) Description 05/17/2024 2:30 PM EST Office [place] [address] Alcides Bonilla MD [facility] [place] [address] 04/06/2049 9:00 AM EST Hospital Encounter [place] [address] Harry Guerrero MD [facility] [place] [address] documented as of this encounter Visit Diagnoses Diagnosis Psoriatic arthritis- Primary Psoriatic arthropathy Psoriasis Other psoriasis Diabetic neuropathy Type II or unspecified type diabetes mellitus with neurological manifestations, not stated as uncontrolled documented in this encounter Care Teams Environmental Specialist Relationship Specialty Start Date End Date Nayla Miramontes MD [address] [place] [address] [facility] [address] [place] [address] PCP - General 05/21/11 05/10/21 documented as of this encounter
--- OUTSIDE RECORDS SUMMARY | 2024-03-07 19:04 | XMS_ITS | Encounter Summary ---
Author Organization [facility] [place] [address] Care Team Providers Care Plastic Tile Layer Name Role Phone Nayla Miramontes MD Primary Care Provider [phone] Reason for Referral * Consultation (Routine) - Closed Specialty Diagnoses / Procedures Referred By Franklin laird Referred To Contact Endocrinology Diagnoses Type 1 diabetes mellitus Yulisa Feng MD [facility] [place] [address] Melisa Sales CDE [facility] [place] [address] Referral ID Status Reason Start Date Expiration Date V isits Requested Visits Authorized [id number] Closed Test Only 09/12/2011 03/10/2012 1 1 Encounter Details Date Type Department Care Team (Late st Contact Info) Description 09/12/2011 [place] [address] Yulisa Feng MD [facility] [place] [address] Type 1 diabetes mellitus (Primary Dx) Social History Tobacco Use [...] 2:30 PM EST Office [place] [phone] Alcides Bonilla MD [facility] [place] [address] 04/06/2049 9:00 AM EST Hospital Encounter Gastroenterology at [place] [phone] Harry Guerrero MD [facility] [place] [address] Scheduled Referrals Name Type Priority Associated Diagnoses Orde r Schedule REFERRAL TO DIABETIC EDUCATION Outpatient Referral Routine Type 1 diabetes mellitus Ordered: 09/12/2011 documented as of this encounter Visit Diagnoses Diagnosis Type 1 diabetes mellitus- Primary Type I (juvenile type) diabetes mellitus without mention of complication, not stated as uncontrolled documented in this encounter Care Teams Plastic Tile Layer Relationship Specialty Start Date End Date Nayla Miramontes MD [address] [place] [address] PCP - General 05/21/11 05/10/21 documented as of this encounter
--- OUTSIDE RECORDS SUMMARY | 2024-03-07 19:04 | XMS_ITS | Encounter Summary ---
Author Organization [facility] [place] [address] Care Team Providers Care Paperboard Box Maker Name Role Phone Nayla Miramontes MD Primary Care Provider [phone] Reason for Visit * Reason Comments Psoriatic Arthropathy Encounter Details Date Type Department Care Team (Late st Contact Info) Description 05/10/2012 4:15 PM EST [place] [address] Darryl Burgos MD [facility] [place] [address] Low back pain (Primary Dx); Psoriatic arthritis Discharge Disposition: Home Social History [...] Sign Reading Time Taken Comments Blood Pressure 116/63 05/10/2012 4:14 PM EST Pulse 71 05/10/2012 4:14 PM EST Temperature 36.7 ??C (98.1 ??F) 05/10/2012 4:14 PM ES T Respiratory Rate - - Oxygen Saturation 95% 05/10/2012 4:14 PM EST Inhaled Oxygen Concentration - - Weight 86.2 kg (190 lb) 05/10/2012 4:14 PM EST Height 167 cm (5' 5.75) 05/10/2012 4:14 PM EST Body Mass Index 30.9 05/10/2012 4:14 PM EST documented in this encounter Patient Instructions * Patient Instructions* Darryl Burgos MD - 05/10/2012 4:25 PM EST 1) Continue hydroxychloroquine and methotrexate. 2) Continue daily folic acid while on methotrexate. 3) Check labs today. 4) Get X-ray of the lumbar spine today. 5) Return to follow up in three months. ? documented in this encounter Progress Notes * Darryl Burgos MD - 05/10/2012 4:18 PM EST REASON FOR VISIT: Follow up for psoriatic arthritis and psoriasis. INTERVAL HISTORY: The pt was a 56-year-old female, who returned for a follow up of psoriatic arthritis and psoriasis. The pt noted that since her last visit on Dec 15, 2011, she was hospitalized at [facility] on Apr 19, 2012 - Apr 29, 2012 for non-responsiveness due to diabetic ketoacidosis. Otherwise, she continued to do well with her psoriatic arthritis. However, she did complain of worsening low back pain,which was diffuse and persistent, but not radiating to the legs. She continued to be on weekly oralmethotrexate, 20 mg in conjunction with twice daily hydroxychloroquine, 200 mg for immunosuppression. While on such regimen, her psoriasis also remained stable. She was on bedtime neurontin, 400 mg [...] her family. 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 She was currently applying for disability. FAMILY HISTORY: ?Mother - Hypertension, hyperlipidemia, hypothyroidism; of cardiac aneurysm at the age of 48. Father - Stroke x two; of a brain tumor at the age of 82. ? PHYSICAL EXAMINATION: Vitals 05/10/2012 SYSTOLIC 116 DIASTOLIC 63 PULSE 71 TEMPERATURE 98.1 HEIGHT 66 in WEIGHT 190 lbs BODY MASS INDEX 30.9 kg/m2 Pulse Oximetry 95 General - Alert, co-operative, no apparent distress, [...] proximal and distal strength = 5/5 bilaterally. Lower extremities: FROM of all joints; + mild crepitations of both knees on flexion and extension of both knees; + bilateral knee joint tenderness on palpation; no clubbing, cyanosis, or edema; proximal and distal muscle strength = 5/5 bilaterally, 2+ peripheral pulses bilaterally. Skin - Smooth and intact, + dysmorphic toe nails improved, + minimal psoriatic lesions on both forearms; no telangiectasia on skin or at all nail margins, sclerodactyly, rash, or bruises. Neuro - + Left eye blind; no motor function deficit, DTR = +1/4 bilaterally and throughout. IMPRESSION : 1) Psoriatic arthritis [...] for topical corticosteroid should it progress. 3) Low back pain. The etiology of the pt's low back pain is unclear, disc disease vs psoriatic arthritis. She will undergo radiographic studies for further evaluation. RECOMMENDATIONS: 1) Continue hydroxychloroquine and methotrexate. 2) Continue daily folic acid while on methotrexate. 3) Check labs today. 4) Get X-ray of the lumbar spine today. 5) Return to follow up in three months. ? Darryl Burgos MD, PhD documented in this encounter Plan of Treatment Upcoming Encounters Date Type Department Care Team (Late st Contact Info) Description 05/17/2024 2:30 PM EST Office [place] [address] Alcides Bonilla MD [facility] [place] [address] 04/06/2049 9:00 AM EST Hospital [place] [address] Harry Guerrero MD [facility] DR [place] [address] documented as of this encounter Procedures Procedure Name Priority Date/Time Associated Diagnosis Comments DIFFERENTIAL, AUTOMATED Routine 05/10/2012 5:02 PM EST VITAMIN D, 25-HYDROXY Routine 05/10/2012 5:02 PM EST Psoriatic arthritis SEDIMENTATION RATE Routine 05/10/2012 5: 02 PM EST Psoriatic arthritis CBC (WITH DIFF) Routine 05/10/2012 5:02 PM EST Psoriatic arthritis CRP, CARDIAC RISK (HS CRP) Routine 05/10/2012 5:02 PM EST Psoriatic arthritis TSH Routine 05/10/2012 5:02 PM EST Psoriatic arthritis CK Routine 05/10/2012 5:02 PM EST Psoriatic arthritis HEPATIC FUNCTION PANEL Routine 3 5:02 PM EST Psoriatic arthritis BASIC METABOLIC PANEL Routine 05/10/2012 5:02 PM EST Psoriatic arthritis URINALYSIS DIPSTICK Routine 05/10/2012 4 :59 PM EST Psoriatic arthritis XR LUMBAR SPINE 2 OR 3 VIEWS Routine 05/10/2012 4:50 PM EST Low back pain documented in this encounter Results * Differential, Automated (05/10/2012 5:02 PM EST) Neutrophil % 48.4 34.0 - 71.0 % CERNER MILLENNIUM Neutrophil Absolute 3.29 1.50 - 6.30 x10(3)/mcL CERNER MILLENNIUM Lymph % 40.7 19.0 - 53.0 % CERNER MILLENNIUM Lymphocytes Abs 2.8 1.0 - 3.6 x10(3)/mcL CERNER MILLENNIUM Monocyte % 6.8 4.0 - 13.0 % CERNER MILLENNIUM Monocyte Abs 0.5 0.2 - 1.0 x10(3)/mcL CERNER MILLENNIUM Eos % 3.1 0.0 - 7.0 % CERNER MILLENNIUM Eosinophils [...] 0.05 x10(3)/mcL CERNER MILLENNIUM Blood specimen (specimen) 05/10/2012 5:02 PM EST 05/10/2012 5:10 PM EST Darryl Burgos MD [facility]ATOLOGY ORDERABLE S [facility] * High Sensitivity CRP (05/10/2012 5:02 PM EST) C-Reactive Protein High Sensitivity 1.4 mg/L CERNER MILLENNIUM Comment: Interpretations: 1) For cardiac risk assessment, [...] prevention. ??Circulation 2003; 107:363-369 Blood specimen (specimen) 05/10/2012 5:02 PM EST 05/10/2012 5:10 PM EST Narrative Resulting Agency Comment Spec In Lab Darryl Burgos MD CHEMISTRY ORDERABLES Performing Organization Address [facility] Co de Phone Number [employer] * VIT D Total Evaluation (05/10/2012 5:02 PM EST) Vitamin D Total 25 OH 38 30 - 100 ng/mL [facility] [employer] Comment: Deficient <10 ng/mL Insufficient 10 to [...] D concentration is reported. Blood specimen (specimen) 05/10/2012 5:02 PM EST 05/10/2012 5:10 PM EST Narrative Resulting Agency Comment Spec In Lab Darryl Burgos MD CHEMISTRY ORDERABLES Performing Organization Address [facility] Co de Phone Number [employer] * (ABNORMAL) TSH (05/10/2012 5:02 PM EST) Thyroid Stimulating Hormone 5.88(H) 0.27 - 4.20 mcIU/mL CERNER MILLENNIUM Blood specimen (specimen) 05/10/2012 5:02 PM EST 05/10/2012 5:10 PM EST Narrative Resulting Agency Comment Spec In Lab Darryl Burgos MD CHEMISTRY ORDERABLES JOHN EVANSIUM * (ABNORMAL) CBC (with Diff) (05/10/2012 5:02 PM EST) White Blood Cell 6.8 4.0 - 10.0 x10(3)/mc L CERNER MILLENNIUM Red Blood Cell 4.98 3.93 - 5.22 x10(6)/mc L CERNER MILLENNIUM Hemoglobin 15.0 11.2 - 15.7 gm/dL CERNER MILLENNIUM Hematocrit 45.1(H) 34.0 - 45.0 % CERNER MILLENNIUM Mean Cell Volume 90.6 79.0 - 94.0 fL CERNER MILLENNIUM Mean Cell Hemoglobin 30.1 26.6 - 32.2 pg CERNER MILLENNIUM Mean Cell Hemoglobin Concentration 33.3 32.0 - 36.5 gm/dL CERNER MILLENNIUM Platelet 318 145 - 370 x10(3)/mc L CERNER MILLENNIUM RDW Standard Deviation 43.7 35.0 - 46.0 fL CERNER MILLENNIUM RDW coefficient of variation 13.4 10.9 - 14.4 % CERNER MILLENNIUM Mean Platelet Volume 9.9 9.0 - 12.0 fL CERNER MILLENNIUM Blood specimen (specimen) 05/10/2012 5:02 PM EST 05/10/2012 5:10 PM EST Narrative Resulting Agency Comment Spec In Lab Darryl Burgos MD HEMATOLOGY ORDERABLE S JOHN EVANSIUM * CK (05/10/2012 5:02 PM EST) Creatine Kinase 77 0 - 160 unit/L CERNER MILLENNIUM Blood specimen (specimen) 05/10/2012 5:02 PM EST 05/10/2012 5:10 PM EST Narrative Resulting Agency Comment Spec In Lab Darryl Burgos MD CHEMISTRY ORDERABLES Performing Organization Address [facility] Co de Phone Number CERNER MILLENNIUM * Sedimentation rate (05/10/2012 5:02 PM EST) Sedimentation Rate Automated 9 0 - 20 mm/hr CERNER MILLENNIUM Blood specimen (specimen) 05/10/2012 5:02 PM EST 05/10/2012 5:10 PM EST Narrative Resulting Agency Comment Spec In Lab Darryl Burgos MD HEMATOLOGY ORDERABLE S Performing Organization Address [facility] de Phone Number CERNER MILLENNIUM * Hepatic Function Panel (05/10/2012 5:02 PM EST) Protein, Total 7.5 6.4 - 8.3 gm/dL CERNER MILLENNIUM Albumin 4.5 3.2 - 5.2 gm/dL CERNER MILLENNIUM Aspartate Aminotransferase 21 0 - 30 unit/L CERNER MILLENNIUM Alanine Aminotransferase 17 0 - 30 unit/L CERNER MILLENNIUM Alkaline Phosphatase 55 40 - 104 unit/L CERNER MILLENNIUM Bilirubin, Total 0.5 0.2 - 1.3 mg/dL CERNER MILLENNIUM Bilirubin, Direct 0.1 0.0 - 0.3 mg/dL CERNER MILLENNIUM Blood specimen (specimen) 05/10/2012 5:02 PM EST 05/10/2012 5:10 PM EST Narrative Resulting Agency Comment Spec In Lab Darryl Burgos MD CHEMISTRY ORDERABLES Performing Organization Address [facility] Co de Phone Number CERNER MILLENNIUM * (ABNORMAL) Basic Metabolic Panel (non-fasting) (05/10/2012 5:02 PM EST) Glucose 228(H) 60 - 199 mg/dL CERNER MILLENNIUM Comment:Diabetes: >=200 mg/d L plus symptoms Blood Urea Nitrogen 24(H) 8 - 18 mg/dL CERNER MILLENNIUM Creatinine 1.19 0.70 - 1.20 mg/dL CERNER MILLENNIUM Comment: Please note that the pediatric reference intervals supplied above were not validated at [facility]. Results from pediatric patients should be interpreted in conjunction to the patient's age, height and muscle mass. Sodium 143 135 - 145 mmol/L CERNER MILLENNIUM Potassium 4.4 3.5 - 5.0 mmol/L CERNER MILLENNIUM Comment: Please note: ??Patients with WBC >100,000 may have falsely elevated Potassium levels. ??For accurate Potassium quantification in these patients send serum separator tube (gold top) for subsequent determinations. ??Contact the Clinical Chemistry Laboratory if there are any questions. Chloride 99 98 - 107 mmol/L CERNER MILLENNIUM Carbon Dioxide 33(H) 22 - 31 mmol/L CERNER MILLENNIUM Anion Gap 11 5 - 15 mmol/L CERNER MILLENNIUM Calcium 10.2 8.5 - 10.5 mg/dL CERNER MILLENNIUM Est Glomerular Filtration Rate 47(L) >=60 CERNER MILLENNIUM Comment: The National Kidney [...] J Am Soc Nephrol;6:1963-72. Blood specimen (specimen) 05/10/2012 5:02 PM EST 05/10/2012 5:10 PM EST Narrative Resulting Agency Comment Spec In Lab Darryl Burgos MD CHEMISTRY ORDERABLES Performing Organization Address City/[facility]/ZIP Co de Phone Number CERMAGDALENA MILLENNIUM * (ABNORMAL) Urinalysis without microscopic (05/10/2012 4:59 PM EST) Glucose, Urine Dipstick 150(A) Negative mg/dL CERNER MILLENNIUM Protein, Urine Dipstick Trace(A) Neg mg/dL CERNER MILLENNIUM Bilirubin, Urine Dipstick Negative Negative mg/dL CERNER MILLENNIUM Urobilinogen, Urine Dipstick Normal mg/dL CERNER MILLENNIUM pH, Urn (dipstick) 8.5(H) 5.0 - 8.0 CERNER MILLENNIUM Blood, Urine Dipstick Negative mg/dL CERNER MILLENNIUM Ketone, Urine Dipstick Negative mg/dL CERNER MILLENNIUM Nitrite, Urine Dipstick Negative CERNER MILLENNIUM Leukocytes, Urine Dipstick Large(A) Neg CERNER MILLENNIUM Appearance, Urine Dipstick Clear Clear CERNER MILLENNIUM Specific [place] Urine Automated 1.019 1.002 - 1.030 CERNER MILLENNIUM Color, Urine Dipstick Yellow Yellow CERNER MILLENNIUM Urine specimen (specimen) 05/10/2012 4:59 PM EST 05/10/2012 5:11 PM EST Narrative Resulting Agency Comment Spec In Lab Darryl Burgos MD URINE ORDERABLES Performing Organization Address City/[facility]/ZIP Co de Phone Number CERMAGDALENA [employer] * XR lumbar spine 2 or 3 views (05/10/2012 4:50 PM EST) Anatomical Region Laterality Modality L-spine N/A Radiographic Michelle ging 05/10/2012 4:50 PM EST Impressions 05/10/2012 5:42 PM EST Impression: significant leftward lumbar curvature approximately 26 degrees centered at L2-3. Narrative 05/10/2012 5:42 PM EST Examination LSPINE 2 OR 3 VIEWS Clinical History 56-year-old female with a worsening low back pain Comparison None Technique Findings Findings: Standing views of the lumbar spine frontal and lateral. There is a significant leftward lumbar scoliotic curvature measured between T11 and L4 and approximately 26 degrees centered at L2-3. The SI joints are intact. ??Anterior posterior spinal alignment is maintained as well as the spinal laminal line. ?? Intervertebral disc space heights are relatively well preserved on the lateral view. ??The sacrum and coccygeal elements are normally formed. Procedure Note Ileana Herring MD - 05/10/2012 Examination LSPINE 2 OR 3 VIEWS Clinical History 56-year-old female with a worsening low back pain Comparison None Technique Findings Findings: Standing views of the lumbar spine frontal and lateral. There dean significant leftward lumbar scoliotic curvature measured between T11 andL4 and approximately 26 degrees centered at L2-3. The SI joints are intact.Anterior posterior spinal alignment is maintained as well as the spinal laminalline. Intervertebral disc space heights are relatively well preserved on thelateral view. The sacrum and coccygeal elements are normally formed. IMPRESSION Impression: significant leftward lumbar curvature approximately 26 degrees centered at L2-3. Darryl Burgos MD IMG DX ORDERABLES documented in this encounter Visit Diagnoses Diagnosis Low back pain- Primary Lumbago Psoriatic arthritis Psoriatic arthropathy documented in this encounter Care Teams Paperboard Box Maker Relationship Specialty Start Date End Date Nayla Miramontes MD [address] [place] [address] PCP - General 05/21/11 05/10/21 documented as of this encounter
--- OUTSIDE RECORDS SUMMARY | 2024-03-07 19:04 | XMS_ITS | Encounter Summary ---
Author Organization [facility] [place] [address] Care Team Providers Care Belt Loop Cutter Name Role Phone Nayla Miramontes MD Primary Care Provider [phone] Reason for Visit * Reason Onset Date Comments Other 07/14/2012 Encounter Details Date Type Department Care Team (Late Contact Info) Description 07/14/2012 Telephone [place] [address] Melisa Sales [facility] DR [place] [address] Other Social History Tobacco Use Types Packs/Day [...] Telephone Encounter - Melisa Sales RN - 07/14/2012 4:19 PM EDT Message delivered to MD documented in this encounter Plan of Treatment Upcoming Encounters Date Type Department Care Team (Late Contact Info) Description 05/17/2024 2:30 PM EST Office [place] [address] Alcides Bonilla MD [facility] [place] [address] 04/06/2049 9:00 AM EST Hospital Encounter [place] [address] Harry Guerrero MD [facility] DR GASTROENTER[place] [address] documented as of this encounter Visit Diagnoses Not on filedocumented in this encounter Care Teams Belt Loop Cutter Relationship Specialty Start Date End Date Nayla Miramontes MD [facility] [address] [place] [address] PCP - General 05/21/11 05/10/21 documented as of this encounter
--- OUTSIDE RECORDS SUMMARY | 2024-03-07 19:04 | XMS_ITS | Encounter Summary ---
Author Organization [facility] Address [facility] [place] [address] Care Team Providers Care Professor Of Genetics Name Role Phone Nayla Miramontes MD Primary Care Provider [phone] Reason for Visit * Reason Comments PDR the patient presents for followup regarding her vitreous hemorrhage and proliferative diabetic retinopathy. ROBBIE Edgar Encounter Details Date Type Department Care Team (Late st Contact Info) Description 04/13/2012 8:15 AM EST [place] [address] Dany Young MD [facility] [place] [address] Proliferative diabetic retinopathy of both eyes.-mild resolving bilateral vitreous hemorrhages.No traction. Good PRP.; Diabetic retinopathy associated with type 1 diabetes mellitus; Nuclear sclerosis; Psoriatic arthritis.currently on Hydroxychloroquine. No signs of [...] Progress Notes * Dany Young MD - 04/13/2012 9:32 AM EST The patient demonstrates significant clearing of her [...] for follow up and possible laser treatment documented in this encounter Plan of Treatment Upcoming Encounters Date Type Department Care Team (Late st Contact Info) Description 05/17/2024 2:30 PM EST Office [place] [phone] Alcides Bonilla MD [facility] [place] [address] 04/06/2049 9:00 AM EST Hospital En[place] [address] Harry Guerrero MD [facility] [place] [address] documented as of this encounter Visit Diagnoses Diagnosis Proliferative diabetic retinopathy of both eyes.-mild resolving bilateral vitreous hemorrhages.No traction. Good PRP. 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 No signs of hydroxychloroquine retinopathy. Recommend close followup. Psoriatic arthropathy documented in this encounter Care Teams Professor Of Genetics Relationship Specialty Start Date End Date Nayla Miramontes MD [address] [place] [address] PCP - General 05/21/11 05/10/21 documented as of this encounter
--- OUTSIDE RECORDS SUMMARY | 2024-03-07 19:04 | XMS_ITS | Encounter Summary ---
Author Organization [facility] [place] [address] Care Team Providers Care Company Pilot Name Role Phone Nayla Miramontes MD Primary Care Provider [phone] Encounter Details Date Type Department Care Team (Latest Contact Info) Description 04/27/2012 1:52 PM EST - 04/27/2012 4:40 PM EST Hospital En[place] [address] [facility] DR GASTROENTER[place] [address] Discharge Disposition: Home Social History Tobacco Use [...] Sign Reading Time Taken Comments Blood Pressure 112/60 04/27/2012 4:30 PM EST Pulse 63 04/27/2012 4:30 PM EST Temperature - - Respiratory Rate 15 04/27/2012 4:30 PM EST Oxygen Saturation 97% 04/27/2012 4:30 PM EST Inhaled Oxygen Concentration - - [...] please contact your M. D. Please call [phone], before 5pm with problems, questions or concerns, after 5pm call the Hospital at [phone] and ask to speak to the Tugboat Captain anger control counselor and the rock crusher operator will contactthat person for you. Discharge instructions reviewed with patient who expresses understanding. * Attachments The following attachments cannot be sent through Care Everywhere. * UPPER GI ENDOSCOPY: WHAT TO EXPECT AT HOME (TELUGU) documented in this encounter Medications at Time [...] sets every 3 days Manually fax to [employer] Diabetes 600 each 3 05/30/2011 07/03/2014 insulin [...] sets every 3 days Manually fax to [employer] Diabetes 600 each 3 ??? pramlintide (SYMLINPEN [...] 2:30 PM EST Office [place] [address] [facility] [address] GASTROENTER[place] [address] 04/06/2049 9:00 AM EST Hospital Encounter [place] [phone] [facility] DR GASTROENTEROLOGY [place] [address] documented as of this encounter Procedures Procedure [...] 4:27 PM EST) Surgical Pathology Report ? [facility] ? Provider: ?? LAY BUCIO ?Pt. Name: ?? BETTIE SANDOVALROXANN GEORGES ? Acc #: ?[id number] ?Pt. ? Col Date: ?? 04/27/2012 ? [...] Distal esophagus, ? islands of Giron's ? [facility] ? Provider: ?? LAY BUCIO ?Pt. Name: ?? ROXANN LANE ? Acc #: ?[id number] ?Pt. ? Col Date: ?? 04/27/2012 ? /Sex: ?1955,(56 years),Female ? Rec Date: ?? 04/27/2012 ? LOC: ?4T ? SURGICAL PATHOLOGY ? Clinical History/Diagnosis : ? GERD JOHN DE LEON 04/27/2012 4:27 PM EST Lay Bucio MD PATHOLOGY/CYTOLOGY O JESSICA JOHN DE LEON * POCT Glucose (04/27/2012 3:59 PM EST) Glucose, POC 123 60 - 199 mg/dL [facility] Comment: Supplemental ranges: <110 mg/dL before meals <200 mg/dL all other times of the day Blood specimen (specimen) 04/27/2012 3:59 PM EST 04/27/2012 3:59 PM EST Darryl Gomes MD POINT OF CARE TE ST ORDERABLES Performing Organization Address [facility] de Phone Number [facility] * Specimen to Pathology (surgical or derm) (04/27/2012 3:48 PM EST) AP Specimen 04/27/2012 3:48 PM EST 04/27/2012 3:48 PM EST Narrative [facility] - 04/27/2012 3:48 PM EST Specimen requisition ordered. ??Separate Pathology report to follow Lay Bucio MD PATHOLOGY/CYTOLOGY O RDERARADHA Performing Organization Address [facility] de Phone Number [facility] * Specimen to Pathology (surgical or derm) (04/27/2012 3:48 PM EST) AP Specimen 04/27/2012 3:48 PM EST 04/27/2012 3:48 PM EST Narrative [facility] - 04/27/2012 3:48 PM EST Specimen requisition ordered. ??Separate Pathology report to follow Lay Bucio MD PATHOLOGY/CYTOLOGY O RDERARADHA Performing Organization Address [facility] de Phone Number [facility] * POCT Glucose (04/27/2012 3:08 PM EST) Glucose, POC 93 60 - 199 mg/dL [facility] Comment: Supplemental ranges: <110 mg/dL before meals <200 mg/dL all other times of the day Blood specimen (specimen) 04/27/2012 3:08 PM EST 04/27/2012 3:08 PM EST Darryl Gomes MD POINT OF CARE TE ST ORDERABLES JOHN DE LEON * UPPER GI ENDOSCOPY (04/27/2012 3:05 PM EST) Pathologist [facility] UPPER GI ENDOSCOPY [facility] Endoscopy Patient Name: Roxann Garner ? Procedure Date: 04/27/2012 3:05 PM ? Date of : 1955 ? Age: 56 ? Order #: [id number] ? Procedure: ? Upper GI endoscopy Indications: ? Follow-up of Giron's esophagus Providers: ? Ann Ordaz, [place], Hortencia ? Nati, Cruise Coordinator, Lay Cross ? MD Rupinder Referring MD: [...] RN) documented in this encounter Care Teams Company Pilot Relationship Specialty Start Date End Date Nayla Miramontes MD [facility] [address] [place] [address] PCP - General 05/21/11 05/10/21 documented as of this encounter
--- OUTSIDE RECORDS SUMMARY | 2024-03-07 19:05 | XMS_ITS | Encounter Summary ---
Author Organization [facility] [place] [id number] Care Team Providers Care Debrander Name Role Phone Nayla Miramontes MD Primary Care Provider [phone] Reason for Visit * Reason Comments PDR Patient referred by Dr. Fleming for evaluation of PDR with past history of multiple laser treatments in both eyes. Patient is not aware of any vision changes, seems stable. Uses OTC readers. Encounter Details Date Type Department Care Team (Late st Contact Info) Description 05/22/2011 1:00 PM EST [place] [phone] Sosa Hewitt MD PDR (proliferative diabetic retinopathy) [...] Progress Notes * Sosa Hewitt MD - 05/25/2011 2:33 PM EST PDR OU, post PRP. Good regression response. RTC 1 year. documented in this encounter Nursing Notes * 05/22/2011 1:00 PM EST >> MD Latosha FERRARO May 25, 2011 2:33 PM Referred for evaluation fo PDR. Post prp OU. ANISHA GUO >> ARCHIEBRIAN PIZARRO May 22, 2011 1:22 PM Description:Patient presents with: PDR - Patient referred by Dr. Fleming for evaluation of PDR with past history of multiple laser treatments in both eyes. Patient is not aware of any vision changes, seems stable. Uses OTC readers. Location: left eye Duration: many years Rapidity of Onset:unknown Severity: 10 Condition:Worsening since recent hospitalization 04/19/11 - 04/29/11 Pain:none Modifying Factors: BSL excellent control now. 202 about 11:30AM today Associated Symptoms: history of poor vision/peripheral vision in the left eye for many years. Patient feels there has been a new bleed since hospital/flu, with lots of vomiting. documented in this encounter Plan of Treatment Upcoming Encounters Date Type Department Care Team (Late st Contact Info) Description 05/17/2024 2:30 PM EST Office Visit Gastroenterology at [place] [phone] Alcides Bonilla MD [facility] [place] [address] 04/06/2049 9:00 AM EST Hospital En[place] [address] Harry Guerrero MD [facility] [place] [address] documented as of this encounter Visit Diagnoses Diagnosis PDR (proliferative diabetic retinopathy)- Primary Type II or unspecified type diabetes mellitus with ophthalmic manifestations, not stated as uncontrolled documented in this encounter Care Teams Debrander Relationship Specialty Start Date End Date Nayla Miramontes MD [address] [place] [address] PCP - General 05/21/11 05/10/21 documented as of this encounter
--- OUTSIDE RECORDS SUMMARY | 2024-03-07 19:05 | XMS_ITS | Encounter Summary ---
Author Organization [facility] [place] [address] Care Team Providers Care Faith Healer Name Role Phone Nayla Miramontes MD Primary Care Provider [phone] Reason for Visit * Reason Onset Date Comments Labs Only 05/08/2011 Encounter Details Date Type Department Care Team (Late Contact Info) Description 05/08/2011 Telephone [place] [phone] Iron Wing MD [facility] [place] [address] Labs Only Social History Tobacco Use Types [...] 2:30 PM EST Office [place] [phone] Alcides Bonilla MD [facility] [place] [address] 04/06/2049 9:00 AM EST Hospital Encounter [place] [address] Harry Guerrero MD [facility] [place] [address] documented as of this encounter Visit Diagnoses Diagnosis Type 1 diabetes mellitus- Primary Type I (juvenile type) diabetes mellitus without mention of complication, not stated as uncontrolled documented in this encounter Care Teams Faith Healer Relationship Specialty Start Date End Date Nayla Miramontes MD [facility] [address] [place] [address] PCP - General 05/21/11 05/10/21 documented as of this encounter
--- OUTSIDE RECORDS SUMMARY | 2024-03-07 19:05 | XMS_ITS | Encounter Summary ---
Author Organization [facility] [place] [address] Care Team Providers Care Bleacher [employer] Name Role Phone Dee London APRN Primary Care Provider [phone] Reason for Visit * Reason Comments Diabetes Mellitus Encounter Details Date Type Department Care Team (Late st Contact Info) Description 05/06/2011 11:00 AM EST Office [place] [address] Melisa Sales [facility] [place] [address] Type 1 diabetes mellitus (Primary Dx) Discharge [...] Sign Reading Time Taken Comments Blood Pressure 114/54 05/06/2011 11:04 AM EST Pulse 69 05/06/2011 11:04 AM EST Temperature - - Respiratory Rate - - Oxygen Saturation - - Inhaled Oxygen Concentration - - Weight 80.7 kg (178 lb) 05/06/2011 11:04 AM EST Height 167.6 cm (5' 6) 05/06/2011 11:04 AM EST Body Mass Index 28.73 05/06/2011 11:04 AM EST documented in this encounter Patient Instructions * Patient Instructions* Melisa Sales RN - 05/06/2011 1:58 PM EST Patient to follow sick day management rules when bg>250 several times in a row with unknown cause. documented in this encounter Progress Notes * Melisa Sales RN - 05/06/2011 1:57 PM EST Diabetes Self-Management Education Program Follow- up Visit Referring Provider: DEE LONDON APRN Type of diabetes: Diabetes mellitus Type I, under poor control. [address]= 0.6 4= 0.8 8= 0.9 4= 0.5 7= 0.8 Total basal = 18.3 units TDD= 37.78 units M= 12:1 CF= 25 90-140 target Reassessment Ratings: 1=needs instruction 2=needs review 3=comprehends metcalf points 4=demonstrates competency N/A= not assessed Topic Reassessment Rating Comment/Re-education Knowledge of diabetes disease process 3 Nutrition Management 2 Down 10+ lbs due to recent DKA episode needing admission at [facility] Breakfast: cheerios, 1/2 cup skim, sugar free cocoa Lunch: pork, cabbage, sweet potato Snack: glucerna Dinner: whole grain bread and spread No snacks in pm Encouraged pt to eat ~40 carbs / meal and a few snacks. Understanding of Physical Activity 2 Patient walks with a walker as her intensive care admission of10 days left her week. She has PT 2x/week. Benefits of exercise reviewed. Effects on her blood sugars discussed. Medication Use 3 Pump downloaded to [employer] download program. Patient is averaging bgs of ~200. Urged pt to be more active as able to lower blood sugars. Monitoring and using results 3 smbg 4-5 x day bgs range from 141-273 Targets reviewed. Preventing Acute Complications 3 + lows during night occasionally and 9:30-10 am in the am. She awakens at 7:30 and eats. Counseled to bolus at all meals. Sick day rules reviewed at length. She was taught how to check for ketones (and why and when) and to supplelment for ketones. Handout- reviewed. Pt has ketone strips. Counseled where to call for assistance when bg> 250 2x/in a row of unknownreason. Preventing Chronic Complications, Risk Reduction 3 + left eye hemorrhage, minimal vision in that eye. Psychosocial Adjustment 3 Behavior Change Strategies 3 Behavior goals reviewed. Last behavior goal: Patient to have eye exam Goal Achievement: 100% New Goal: Patient to follow sick day management when bgs >250 In a row and if unknown cause Follow-up/DSMS Plan: Patient to follow up with her PCP Time Spent Diabetes Education:30 minutes documented in this encounter Plan of Treatment Upcoming Encounters Date Type Department Care Team (Late st Contact Info) Description 05/17/2024 2:30 PM EST Office [place] [address] Alcides Bonilla MD [facility] [place] [address] 04/06/2049 9:00 AM EST Hospital Encounter [place] [address] Harry Guerrero MD [facility] [place] [address] documented as of this encounter Visit Diagnoses Diagnosis Type 1 diabetes mellitus- Primary Type I (juvenile type) diabetes mellitus without mention of complication, not stated as uncontrolled documented in this encounter Care Teams Bleacher [employer] Relationship Specialty Start Date End Date Dee London APRN PCP - General 02/26/10 05/20/11 documented as of this encounter
--- OUTSIDE RECORDS SUMMARY | 2024-03-07 19:05 | XMS_ITS | Encounter Summary ---
Author Organization [facility] [place] [address] Care Team Providers Care Brick Maker Name Role Phone Dee Slade APRN Primary Care Provider [phone] Reason for Visit * Reason Comments Diabetes Encounter Details Date Type Department Care Team (Late st Contact Info) Description 05/07/2011 3:30 PM EST Office [place] [address] Iron Wing MD [facility] [place] [address] Type 1 diabetes mellitus (Primary Dx) Discharge [...] Reading Time Taken Comments Blood Pressure 114/54 05/07/2011 3:26 PM EST Pulse 69 05/07/2011 3:26 PM EST Temperature - - Respiratory Rate - - Oxygen Saturation - - Inhaled Oxygen Concentration - - Weight 80.7 kg (178 lb) 05/07/2011 3:26 PM EST Height 167.6 cm (5' 6) 05/07/2011 3:26 PM EST Body Mass Index 28.73 05/07/2011 3:26 PM EST documented in this encounter Progress Notes * Iron Wing MD - 05/07/2011 5:25 PM EST Roxann presents for followup of her type 1 diabetes. She has not kept a visit with me for the past year and a half and she attributes this to multiple life stressors including the of her granddaughter with leukemia, the of her [id number], and her depression. It has been a very difficult time for her, but it culminated two weeks ago in admission to the hospital for severe diabetic ketoacidosis associated with severe dehydration and a hyperosmolar state with her blood sugar exceeding 1000 mg/dL. She was in a coma for five days following this treatment and now is slowly recovering. The symptoms started with acute upper gastrointestinal symptoms of nausea and vomiting, but rapidly progressed to diabetic ketoacidosis through the night. She does not feel it was secondary to pump malfunction and she took some subcutaneous injections of insulin in the early stages. Her blood sugars when she started vomiting were only 200, so it is likely that the ketoacidosis developed rapidly after that. She continues using Greetztronic insulin pump with Humalog insulin. I reviewed her current pump settings which she has been using since her recent hospital discharge and they show a carb ratio of 12 and a correction factor of 25. Her basal rates show 0.6 units per hour from midnight to 4 a.m., 0.8 units per hour from 4 to 8 a.m., 0.9 units per hour from 8 a.m. to 4 p.m. and 0.5 units per hour from 4 p.m. to 9 p.m. followed by 0.8 units per hour from 7 p.m. until midnight. It is a total of 18.3 units per 24 hours. Her appetite is slowly improving from the severe hemorrhagic gastritis that she had at the time of her admission. She is now eating several toasts for breakfast, a Glucerna shake in mid morning, a lunch consisting of a sandwich or a wrap, and a warm mixed supper. Her blood sugars today on her insulin regimen have been good, showing a value of 112 fasting, 80 prior to lunch, and 210 while she is in the office, which is two hours after her lunch in the cafeteria. In reviewing that with her, I think she underestimated her carbohydrate consumed at lunch. She has also been partially disabled by multiple joint symptoms compatible with rheumatoid arthritis, although also called psoriatic arthritis. She is taking methotrexate for that and she formerly used prednisone for a month. She is taking Lexapro for her depression since Abilify produced hyperglycemia. Her A1c when she was admitted for DKA was 9%. She also has had a flare in her diabetic retinopathy with hemorrhage in the left eye and almost complete visual loss in that eye. She first had laser treatment in 1995 and had been stable up to this point. She also had albuminuria in the hospital (greater than 300 mg/g of creatinine) and is currently taking lisinopril. It appears as if her current pump settings are adequate to control her blood sugars if used correctly. I discussed the importance of accurate carbohydrate intake and appropriate responses if her blood sugars become elevated rapidly or if she develops any nausea and vomiting. She appears to be able to go into diabetic ketoacidosis very rapidly and I pointed out the importance of seeking medical care early if nausea and vomiting plus hyperglycemia particularly with ketones occurs. She does appear to be slowly recovering and I believe she understands the gravity of the situation. I will see her for a followup in the spring. documented in this encounter Plan of Treatment Upcoming Encounters Date Type Department Care Team (Late st Contact Info) Description 05/17/2024 2:30 PM EST Office [place] [address] Alcides Bonilla MD [facility] [place] [address] 04/06/2049 9:00 AM EST Hospital Encounter [place] [address] Harry Guerrero MD [facility] [place] [address] documented as of this encounter Visit Diagnoses Diagnosis Type 1 diabetes mellitus- Primary Type I (juvenile type) diabetes mellitus without mention of complication, not stated as uncontrolled documented in this encounter Care Teams Brick Maker Relationship Specialty Start Date End Date Dee Slade APRN PCP - General 02/26/10 05/20/11 documented as of this encounter
--- OUTSIDE RECORDS SUMMARY | 2024-03-07 19:05 | XMS_ITS | Encounter Summary ---
Author Organization [facility] [place] [address] Care Team Providers Care Dump Truck Driver Off Highway Name Role Phone Dee Slade APRN Primary Care Provider [phone] Reason for Visit * Reason Comments Arthritis Encounter Details Date Type Department Care Team ([facility] st Contact Info) Description 05/19/2011 3:15 PM EST [place] [address] Darryl Burgos MD [facility] [place] [address] Psoriatic arthritis (Primary Dx) Discharge Disposition: Home [...] Sign Reading Time Taken Comments Blood Pressure 124/59 05/19/2011 4:20 PM EST Pulse 79 05/19/2011 4:20 PM EST Temperature - - Respiratory Rate - - Oxygen Saturation - - Inhaled Oxygen Concentration - - Weight 78.9 kg (174 lb) 05/19/2011 4:20 PM EST Height 167.6 cm (5' 6) 05/19/2011 4:20 PM EST Body Mass Index 28.08 05/19/2011 4:20 PM EST documented in this encounter Patient Instructions * Patient Instructions* Darryl Burgos MD - 05/19/2011 4:14 PM EST 1) Continue weekly oral methotrexate, 20 mg. 2) Continue daily folic acid, 1 mg. 3) Start twice daily Plaquenil, 200 mg. 4) Check labs today. 5) Return to follow up in two months. documented in this encounter Progress Notes * Darryl Burgos MD - 05/19/2011 4:05 PM EST Reason for visit: Follow up for psoriatic arthritis and psoriasis. Interval History: The pt was a 55-year-old female, who returned for a follow up of psoriatic arthritis and psoriasis. The pt noted that since her last visit in Feb 2011, she was hospitalized at [facility] for diabetic coma on Apr 19, 2011 - Apr 29, 2011. During her hospitalization, her oral methotrexate was discontinued. She had since resumed weekly oral methotrexate, 20 mg after her discharge from [facility]. However, she complained of persistent joint pain and stiffness, particularly in bilateral shoulders even though she had resumed methotrexate. She denied any joint swelling, but she did complain of morning stiffness of multiple joints for about 45 minutes. The radiographic studies of the knees obtained after her last visit showed moderate osteoarthritis of the medial compartment bilaterally. She tolerated methotrexate well without any fever, chest pain, dyspnea, nausea, dysuria, headache, rash, easy bruising, and polydipsia. 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 Allergies: Codeine (vomiting) Propoxyphene N-acetaminophen (ulcer) Social History: Cigarettes: 2 ppd x 12 years (quit in 1984). Alcohol: Rare alcohol use. Pt denied any use of illicit drugs. She was , with two children. Her granddaughter of leukemia in June 2010. She was living with her family. 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 She was currently applying for disability. Family History: ??Mother - Hypertension, hyperlipidemia, hypothyroidism; of cardiac aneurysm at the age of 48. Father - Stroke, alive and healthy at the age of 81. ?? Physical Examination: Vitals 05/19/2011 SYSTOLIC 124 DIASTOLIC 59 PULSE 79 HEIGHT 66 in WEIGHT 174 lbs BODY MASS INDEX 28.10 kg/m2 General - Alert, co-operative, no apparent [...] Soft, non-tender, non-distended, bowel sound present, no hepatosplenomegaly. Back - Erect, FROM; no lumbosacral spinal or paraspinal tenderness on palpation. Extremities - Upper extremities: FROM of all joints, + joint tenderness of both shoulders at the acromioclavicular areas on palpation and range of motion; + bilateral wrist joint tenderness on palpation; + bilateral PIP joint synovitis; no soft tissue swelling or joint effusion; no clubbing, cyanosis, or edema; proximal and distal strength = 5/5 b/l. Lower extremities: FROM of all joints; + bilateral knee joint tenderness on palpation; no clubbing,cyanosis, or edema; proximal and distal muscle strength = 5/5 b/l, 2+ peripheral pulses b/l. Skin - Smooth and intact, + dysmorphic toe nails improved, good capillary refill in all digits, no signs of psoriasis, telangiectasia on skin or at all nail margins, sclerodactyly, rash, oral ulcers,or bruises. Neuro - + Left eye blind; no motor function deficit, DTR = +1/4 b/l and throughout. Impression: 1) Psoriatic arthritis in a 55-year-old female. The pt's psoriatic arthritis was under poor control since she resumed weekly oral methotrexate, 20 mg. She will be added twice daily hydroxychloroquine, 200 mg for additional immunosuppression. Hydroxychloroquine has also been reported to have hypoglycemic effects. She will undergo surveillance studies today. 2) Psoriasis. The pt will continue weekly oral methotrexate for her psoriasis, which was manifestedas dysmorphic toe nails bilaterally. Recommendations: 1) Continue weekly oral methotrexate, 20 mg. 2) Continue daily folic acid, 1 mg. 3) Start twice daily Plaquenil, 200 mg. 4) Check labs today. 5) Return to follow up in two months. ? Darryl Burgos MD, PhD documented in this encounter Plan of Treatment Upcoming Encounters Date Type Department Care Team (Late st Contact Info) Description 05/17/2024 2:30 PM EST Office [place] [address] Alcides Bonilla MD [facility] [place] [address] 04/06/2049 9:00 AM EST Hospital Encounter [place] [address] Harry Guerrero MD [facility] [place] [address] documented as of this encounter Procedures Procedure Name Priority Date/Time Associated Diagnosis Comments DIFFERENTIAL, AUTOMATED Routine 05/19/2011 4:43 PM EST VITAMIN D, 25-HYDROXY Routine 05/19/2011 4:43 PM EST Psoriatic arthritis SEDIMENTATION RATE Routine 05/19/2011 4: 43 PM EST Psoriatic arthritis CBC (WITH DIFF) Routine 05/19/2011 4:43 PM EST Psoriatic arthritis CRP, CARDIAC RISK (HS CRP) Routine 05/19/2011 4:43 PM EST Psoriatic arthritis TSH Routine 05/19/2011 4:43 PM EST Psoriatic arthritis HEMOGLOBIN A1C Routine 05/19/2011 4:43 PM EST Psoriatic arthritis HEPATIC FUNCTION PANEL Routine 2 4:43 PM EST Psoriatic arthritis BASIC METABOLIC PANEL Routine 05/19/2011 4:43 PM EST Psoriatic arthritis documented in this encounter Results * DIFFERENTIAL, AUTOMATED (05/19/2011 4:43 PM EST) Neutrophil % 41.1 34.0 - 71.0 % [facility] Neutrophil Absolute 2.80 1.50 - 6.30 x10(3)/mcL [facility] Lymph % 50.7 19.0 - 53.0 % [facility] Lymphocytes Abs 3.4 1.0 - 3.6 x10(3)/mcL [facility] Monocyte % 4.6 4.0 - 13.0 % [facility] Monocyte Abs 0.3 0.2 - 1.0 x10(3)/mcL [facility] Eos % 3.1 0.0 - 7.0 % [facility] Eosinophils Abs 0.2 0.0 - 0.5 x10(3)/mcL [facility] Basophil % 0.4 0.0 - 2.0 % [facility] Baso [...] 0.05 x10(3)/mcL [facility] Blood specimen (specimen) 05/19/2011 4:43 PM EST 05/19/2011 4:49 PM EST Darryl Burgos MD HEMATOLOGY ORDERABLE S [facility] * (ABNORMAL) Hemoglobin A1c (05/19/2011 4:43 PM EST) Hemoglobin A1c 8.1(H) 4.3 - 6.1 % [facility] Estimated Average Glucose 186 mg/dL [facility] Comment: eAG equivalents for HbA1c percentages: HbA1c(%) [...] into estimated average glucose values. ??Diabetes Care 2008:31(8):5562-2916. Blood specimen (specimen) 05/19/2011 4:43 PM EST 05/19/2011 4:49 PM EST Darryl Burgos MD CHEMISTRY ORDERABLES [facility] * TSH (05/19/2011 4:43 PM EST) Thyroid Stimulating Hormone 0.41 0.27 - 4.20 mcIU/mL [facility] Blood specimen (specimen) 05/19/2011 4:43 PM EST 05/19/2011 4:49 PM EST Darryl Burgos MD CHEMISTRY ORDERABLES Performing Organization Address [facility] de Phone Number [facility] * VIT D Total 25 Hydroxy (05/19/2011 4:43 PM EST) Vitamin D Total 25 OH 35 30 - 100 ng/mL [facility] Comment: Deficient <10 ng/mL Insufficient 10 to [...] Hydroxy assays are being analyzed by the [facility] Chemistry Laboratory. ??There is NO CHANGE in units. ??Please contact the chemistry laboratory at [phone] with questions. Blood specimen (specimen) 05/19/2011 4:43 PM EST 05/19/2011 4:49 PM EST Darryl Burgos MD CHEMISTRY ORDERABLES Performing Organization Address [facility] Co de Phone Number [facility] * High Sensitivity CRP (05/19/2011 4:43 PM EST) C-Reactive Protein High Sensitivity 0.7 mg/L [facility] Comment: Interpretations: 1) For [...] and Cardiovascular Disease. ??Circulation 2003; 107:499-511 2. Kyleker PM. ??Clinical applications of C-reactive protein for cardiovascular disease detection and prevention. ??Circulation 2003; 107:363-369 Blood specimen (specimen) 05/19/2011 4:43 PM EST 05/19/2011 4:49 PM EST Darryl Burgos MD CHEMISTRY ORDERABLES [facility] * (ABNORMAL) CBC (with Diff) (05/19/2011 4:43 PM EST) White Blood Cell 6.8 4.0 - 10.0 x10(3)/mc L [facility] Red Blood Cell 4.47 3.93 - 5.22 x10(6)/mc L [facility] Hemoglobin 11.3 11.2 - 15.7 gm/dL [facility] Hematocrit 35.7 34.0 - 45.0 % [facility] Mean Cell Volume 79.9 79.0 - 94.0 fL [facility] Mean Cell Hemoglobin 25.3(L) 26.6 - 32.2 pg [facility] Mean Cell Hemoglobin Concentration 31.7(L) 32.0 - 36.5 gm/dL [facility] Platelet 269 145 - 370 x10(3)/mc L [facility] RDW Standard Deviation 48.2(H) 35.0 - 46.0 fL [facility] RDW coefficient of variation 16.8(H) 10.9 - 14.4 % [facility] Mean Platelet Volume 9.2 9.0 - 12.0 fL [facility] Blood specimen (specimen) 05/19/2011 4:43 PM EST 05/19/2011 4:49 PM EST Darryl Burgos MD HEMATOLOGY ORDERABLE S Performing Organization Address [facility] de Phone Number [facility] * Sedimentation rate (05/19/2011 4:43 PM EST) Sedimentation Rate Automated 18 0 - 20 mm/hr [facility] Blood specimen (specimen) 05/19/2011 4:43 PM EST 05/19/2011 4:49 PM EST Darryl Burgos MD HEMATOLOGY ORDERABLE S Performing Organization Address [facility] de Phone Number [facility] * Hepatic Function Panel (05/19/2011 4:43 PM EST) Protein, Total 7.1 6.4 - 8.3 gm/dL [facility] Albumin 4.2 3.2 - 5.2 gm/dL [facility] Aspartate Aminotransferase 21 0 - 30 unit/L [facility] Alanine Aminotransferase 17 0 - 30 unit/L [facility] Alkaline Phosphatase 59 40 - 104 unit/L [facility] Bilirubin, Total 0.6 0.2 - 1.3 mg/dL [facility] Bilirubin, Direct 0.1 0.0 - 0.3 mg/dL [facility] Blood specimen (specimen) 05/19/2011 4:43 PM EST 05/19/2011 4:49 PM EST Darryl Burgos MD CHEMISTRY ORDERABLES [facility] * (ABNORMAL) Basic Metabolic Panel (non-fasting) (05/19/2011 4:43 PM EST) Glucose 154 60 - 199 mg/dL [facility] Comment:Diabetes: >=200 mg/d L plus symptoms Blood Urea Nitrogen 23(H) 8 - 18 mg/dL [facility] Creatinine 0.89 0.70 - 1.20 mg/dL [facility] Sodium 140 135 - 145 mmol/L [facility] Potassium 4.2 3.5 - 5.0 mmol/L [facility] Comment: Please note: ??Patients with WBC >100,000 may have falsely elevated Potassium levels. ??For accurate Potassium quantification in these patients send serum separator tube (gold top) for subsequent determinations. ??Contact the Clinical Chemistry Laboratory if there are any questions. Chloride 101 98 - 107 mmol/L [facility] Carbon Dioxide 31 22 - 31 mmol/L [facility] Anion Gap 8 5 - 15 mmol/L [facility] Calcium 9.7 8.5 - 10.5 mg/dL [facility] Est [...] multiply eGFR by 1.2. The MDRD equation has not been validated for pediatric patients and is only valid for patients with age >= 18 years. At present, NKDEP does NOT recommend using [...] with diabetic kidney disease. References: http://nkdep.nih.gov/resources/NKDEP_Suggestn4Labs_0606_508.pdf http://www.kidney.org/professionals/kls/pdf/faq_gfr.pdf Blood specimen (specimen) 05/19/2011 4:43 PM EST 05/19/2011 4:49 PM EST Darryl Burgos MD CHEMISTRY ORDERABLES Performing Organization Address City/State/[facility] Phone Number [facility] documented in this encounter Visit Diagnoses Diagnosis Psoriatic arthritis- Primary Psoriatic arthropathy documented in this encounter Care Teams Dump Truck Driver Off Highway Relationship Specialty Start Date End Date Dee Slade APRN PCP - General 02/26/10 05/20/11 documented as of this encounter
--- OUTSIDE RECORDS SUMMARY | 2024-03-07 19:05 | XMS_ITS | Encounter Summary ---
Author Organization [facility] [place] [address] Care Team Providers Care Email Campaign Specialist Name Role Phone Dee Slade APRN Primary Care Provider [phone] Reason for Visit * Reason Comments Diabetes Last Ha1c 9.3 (), Pt recently was in [facility] for DKA, in coma for 3-4 days, released 04/29/11, Pt reports FBS 184 today @7:30 am, VA blurry Encounter Details Date Type Department Care Team (Latest Contact Info) Description 05/05/2011 10:05 AM EST Office [place] [address] Carmelo Wood, OD [facility] [place] [address] Vitreous hemorrhage of left eye (Primary Dx); Retinal neovascularization of right eye; Cortical cataract; PSC (posterior subcapsular cataract), bilateral; Type 1 diabetes mellitus Discharge Disposition: Home Social History Tobacco Use Types Packs/Day Years Used Date Smoking Tobacco: Former Smokeless Tobacco: Never Alcohol Use Standard Drinks/Week Comments No 0 (1 standard drink = 0.6 oz pur e alcohol) Sex and Gender Information Value Date Recorded Sex Assigned at Not on file Gender Identity Not on file Sexual Orientation Not on file documented as of this encounter Progress Notes * Carmelo Wood, OD - 05/05/2011 1:31 PM EST Roxann Baxter is a 55 y.o. female who had a chief complaint of Diabetes. Recently very ill. Had badflu symptoms and then hospitalized and coma with ketoacidoses. VA OS got worse with severe vomiting. Apparent vitreal hemorrhage OS. NVD OD. Has not had eyes examined since 04/2006. Assessment: Encounter Diagnoses Code Name Primary? 379.23AB Vitreous hemorrhage of left eye Yes ??? 362.16Y Retinal neovascularization of right eye ??? 366.8Z Cortical cataract ??? 366.9AX PSC (posterior subcapsular cataract), bilateral ??? 250.01AQ Type 1 diabetes mellitus Plan: 1)RTC to see Dr. Hewitt ~ 1 week. 2)pt ed to call STAT if any dramatic changes before then Follow up: ~ 1 week ANISHA [employer] Sphere Cylinder [place] Dist Right +0.50 +0.50 045 20/25-1 Left [place] +1.00 090 20/400 documented in this encounter Nursing Notes * 05/05/2011 10:05 AM EST >> CARMELO WOOD OD ThuMay 05, 2011 11:40 AM MARCY 04/12. H/o PRP OU. Recently in [facility] for 10 days for DKA. Very high A1C 9.3 04/21/11. VA blurry x years OS > OD and has gotten worse since sick with flu and vomiting. No ocular discomfort. Type 1DM since age 16. >> AURE YAN ThuMay 05, 2011 10:34 AM Description:Patient presents with: Diabetes - Last Ha1c 9.3 (04/21/11), Pt recently was in [facility] for DKA, in coma for 3-4 days, released04/29/11, Pt reports FBS 184 today @7:30 am, VA blurry Location: both eye Duration: 38 years (diabetic) Rapidity of Onset:gradual Severity: NA Condition:Worsening Pain:none Modifying Factors: Associated Symptoms: no gtts documented in this encounter Plan of Treatment Upcoming Encounters Date Type Department Care Team (Late st Contact Info) Description 05/17/2024 2:30 PM EST Office [place] [address] Alcides Bonilla MD [facility] [place] [address] 04/06/2049 9:00 AM EST Hospital En[place] [address] Harry Guerrero MD [facility] [place] [address] documented as of this encounter Visit Diagnoses Diagnosis Vitreous hemorrhage of left eye- Primary Vitreous hemorrhage Retinal neovascularization of right eye Retinal neovascularization NOS Cortical cataract Other cataract PSC (posterior subcapsular cataract), bilateral Unspecified cataract Type 1 diabetes mellitus Type I (juvenile type) diabetes mellitus without mention of complication, not stated as uncontrolled documented in this encounter Care Teams Email Campaign Specialist Relationship Specialty Start Date End Date Dee Slade APRN PCP - General 02/26/10 05/20/11 documented as of this encounter
--- OUTSIDE RECORDS SUMMARY | 2024-03-07 19:06 | XMS_ITS | Encounter Summary ---
Author Organization [facility] [place] [address] Care Team Providers Care Heat Treat Supervisor Name Role Phone Elly London APRN Primary Care Provider [phone] Encounter Details Date Type Department Care Team (Latest Contact Info) Description 04/19/2011 6:39 PM EST - 04/29/2011 2:50 PM [facility] Hospital Encounter [address] [place] [address] Lexi Read MD [facility] [place] [address] Siria Fuller MD [facility] [place] [address] Felix Guzman MD [address] [place] [id number] Haseeb Virk MD [facility] [place] [address] Shock; Diabetes mellitus; DKA (diabetic ketoacidoses) Discharge Disposition: Home with VNA Social History Tobacco Use Types Packs/Day Years Used Date Smoking Tobacco: Former Sex and Gender Information Value Date Recorded Sex Assigned at Not on file Gender Identity Not on file Sexual Orientation Not on file documented as of this encounter Last Filed Vital Signs Vital Sign Reading Time Taken Comments Blood Pressure 122/48 04/29/2011 12:50 PM EST Pulse 71 04/29/2011 12:50 PM EST Temperature 36.5 ??C (97.7 ??F) 04/29/2011 12:[address] Respiratory Rate 20 04/29/2011 12:50 PM EST Oxygen Saturation 97% 04/29/2011 12:50 PM EST Inhaled Oxygen Concentration - - Weight 84.1 kg (185 lb 6.5 oz) 04/29/2011 12:24 AM EST Height 167.6 cm (5' 6) 04/22/2011 12:00 PM EST Body Mass Index 29.93 04/22/2011 12:00 PM EST documented in this encounter Discharge Instructions * Discharge Instructions* Odalis Ford, CHIEF TELEPHONE OPERATOR - 04/29/2011 10:20 AM EST Roxann Baxter [id number] 1955 Diabetes Care Instructions Follow up with: Melisa Sales on 05/06/2011 at 11AM Assistant Golf Professional area [address]C Dr. Wing on May 07 at 3:30PM Assistant Golf Professional area 5C Subcutaneous Insulin Pump Instructions Basal (total daily 18.3 units of basal) Midnight 0.6 units 4 AM 0.8 units 8 AM 0.9 units 4 PM 0.5 units 7 PM 0.8 units Bolus Correction 1 unit for 25 points greater than 100-125 mg/dL Meal associated bolus 1 unit per 12 grams CHO If insulin pump is discontinued for any reason, Then... Take Lantus 18 units (this should be given every 24 hours until your pump is restarted) Humalog 1 unit per 12 grams Carbohydrate Humalog for correction per scale at meals and bedtime Blood Sugar NOVOLOG DOSE 140-160 ADD 1 unit 161-200 ADD 2 units 201-240 ADD 4 units >240 ADD 8 units Sick Days When you are sick it can be very challenging to control your blood sugars. This includes having a cold, the flu, a fever, stomach bug, or other infection. To help manage your blood sugars and stay well here are some tips: 1. Increase (non-caffeine) fluids drink at least 8 ounces an hour 1. Try to eat a normal meal plan (if not able to see foods below) If you have high Blood sugars (consistently >240 mg/dL): 1. Check for ketones 1. If positive call your primary care doctor If you can not eat your meals while you are sick it is still important that you get about 50grams of carbohydrates every 4 hours. Foods that can be helpful and that you should have in hand include the following: ?? Sports drinks ?? Regular gelatin ?? Canned soup ?? Juice ?? Regular soft drinks ?? Crackers ?? Instant cooked cereals ?? Applesauce ?? Instant pudding Treatment of Low Blood Sugar (Hypoglycemia) If your BG is lower than 80, you are likely to feel shaky, sweaty and lightheaded. This is a signalthat your body needs more sugar. Quickly eat or drink a small serving of something sweet, such as: ?? 4 ounces fruit juice or regular (not diet) soda ?? 6 lifesavers ?? 4-8 glucose tablets (~15-30 gm of glucose) ?? If your BG is very low <50, you can double the amount above or take 30 gm of glucose gel/tablets. ?? Sit and rest and you should feel better within a few minutes. Once you are feeling better, try to determine why your BG was so low. Common causes of hypoglycemia include skipping a meal, lots of exercise, too much insulin or any combination of these things. Understanding the cause my help you toavoid another low BG in the future. Call your doctor for blood sugars under 80 or over 300 twice in one day. Odalis Ford [facility] Section of Endocrinology Diabetes Management * Patient Instructions* Haseeb Virk MD - 04/29/2011 1:51 PM EST Instruction after leaving the hospital Why you were hospitalized: Diabetic Ketoacidosis (DKA). Call your doctor or seek medical attention if you develop the following: uncontrolled blood sugars,fever, chest pain, shortness of breath, black or bloody stools, or any other concerns. Activity level: gradually increase activity back to usual under the guidance of home Physical Therapy. Diet: diabetic diet as previously instructed. Driving: not recommended at least until you are evaluated in follow up. Shower/Bath: no new restrictions Wound Care: n/a Home Oxygen therapy: n/a Follow-Up Appointments Please contact your primary care provider to arrange follow up within 2 weeks. Also see Future Appointments under Your To Do List for Endocrinology and Rheumatology appointments. documented in this encounter Medications at Time of Discharge Medication Sig Dispensed Refills Start Date End Date MULTI-VITAMIN ORAL Take 1 tablet by mouth daily. Reported on 05/26/2016 insulin glargine (LANTUS) 100 unit/mL vial injectionIndication [...] 0.5 tablets by mouth daily. 04/29/2011 12/08/2013 methotrexate 2.5 mg tablet Take 6 tablets by mouth once a week. 04/29/2011 05/19/2011 lansoprazole (PREVACID) 30 mg capsule Take 1 [...] 3 times daily and as needed 11/14/2013 methylphenidate (RITALIN) 5 mg tablet Take 15 mg by mouth daily. 15 mg = 3 tabs 05/19/2011 [facility] Free Text Med - Insulin Pump [...] 1 Tablet(s), PO, Once daily 06/17/2010 01/12/2013 Flaxseed Oil 1,000 mg Cap 06/17/2010 05/19/2011 folic acid (FOLVITE) 1 mg tablet 1 MG = 1 Tablet(s), PO, Once daily 06/17/2010 02/23/2013 documented as of this encounter Progress Notes * Kat Mcfarlane RN - 04/29/2011 4:05 PM EST Office of Care Management Day of Discharge Pt ready for d/c per Dr. Virk: Pt in agreement. Pt d/c with services arranged: Pt in agreement. [facility]. PHONE: [phone] FAX: [phone] Services ordered: RN, PT, OT Referral made via eDischarge Transportation: 04/29/11 family Kat Sun. Denys PATE, RN, PSYCHIATRIC pager [phone] * Haseeb Virk MD - 04/29/2011 2:23 PM EST Hospital Medicine - Attending Day of Discharge Documentation Discharge diagnosis Active Hospital Problems Diagnoses ??? DKA (diabetic ketoacidoses) ??? Reflux esophagitis ??? Gastritis ??? Anasarca Resolved Hospital Problems Diagnoses Date Resolved ??? Shock 04/25/2011 Secondary Issues Active Non-Hospital Problems Diagnoses ??? Hypertension ??? Hyperlipidemia ??? Hypothyroidism ??? Psoriasis ??? Depression ??? Iron deficiency ??? Asthma ??? Microcytic anemia ??? GERD (gastroesophageal reflux disease) ??? Giron's esophagus ??? Diabetic retinopathy associated with type 1 diabetes mellitus ??? Diabetes mellitus I have personally seen and examined the patient and they are ready for discharge. I spent >30 minutes (Day of Discharge Code 66027) involved in the final examination of the patient, discussion of the hospital stay, instructions for continuing care to all relevant caregivers, and preparation of discharge records, prescriptions and referral forms. Plans Discharge to home Follow-up scheduled with endocrine and rheum Pt to schedule f/u with PCP Please see the Discharge Summary for complete details of any medication changes and additional plans. HASEEB VIRK MD 04/29/2011 * Kat Mcfarlane RN - 04/29/2011 1:16 PM EST Office of Care Management Progress Note CRC visited pt at bedside. Per PT, pt will be requiring PT/OT at home and will not need to attend a rehab at this point. Pt's has a flexible work schedule and will available to be at home with pt. VNA orders written and pended. [facility]. PHONE: [phone] FAX: [phone] Services ordered: RN, PT, OT including diabetes education. Referral made via eDischarge. Kat PATE, RN, CRC pager [phone] * Wilber Ocampo, PARESH - 04/29/2011 12:10 PM EST Physical Therapy Progress Note Patient profile: Patient is a 55 y.o. female of Haseeb Garcia MD, admitted on 04/19/2011 for DKA and shock, GIB and presented to the OSH obtunded and not responsive, requiring intubation for2 days. Interval History: Pt able to tolerate additional ambulation activity outside of room with nursing yesterday following PT. Precautions/Special Considerations: at risk to fall. Subjective: I'm going home today at least that's what they told me this morning. Objective: Consulted with RN, Pt cleared to participate in PT. Pt c/o fatigue and lightheadedness with functional activities. Notified RN and Dr Virk of Pt status following PT. Total time spent with patient: 15 minutes Total timed interventions: 12 minutes therapeutic functional Pain: Pt reported arthritis knee discomfort. Vitals: WNL Bed Mobility: N/A. Pt states that she is independent. Confirm by EMERGENCY DEPARTMENT NURSE. Transfers: sit<>stand from the cardiac chair to FWW, independent. Gait: Pt ambulated 160 ft with FWW, independent. Gait pattern: Reciprocal. Assistive device: FWW. Stair Training: Pt ascended/descended 13 steps with one hand rail, supervision assist of 1, VC for technique. Pt reviewed and demonstrated how to safely sit down on a stair tread if she found herself fatigue or light headed and not safely able to continue up or down the stairs. Education: Pt educated on the benefits of continued home skilled therapeutic interventions to maximize her level of functional independence. Patient status, treatment, and mobility recommendations discussed with nursing. Assessment: Pt was pleasant and willing to participate in PT this afternoon. Pt continues to made good progress with functional mobility, transfer's, gait and stair training activities. Pt was successful at stair mobility training with supervision assist this morning. Pt does continue to express feeling fatigue when ascending a flight of stairs, therefore it is important that she has at least supervision assist at home until she regains her strength. Pt is pleasant and motivated and would benefit from continued skilled home therapeutic interventions to maximize her level of functional independence. Status of Goals: To be achieved by 04/28/11 . 1. Pt. to demonstrate understanding of appropriate exercises. N/A 2. Pt. to perform bed mobility independently . N/A 3. Pt. to perform sit to stand transfers independently utilizing a rolling walker . Supervision assist. 4. Pt. to ambulate 150 feet; with a rolling walker , and independent with assistive device . Independent. 5. Pt. to ambulate up/down flight of step/stairs with supervision , using one railing . Supervisionassist. 6. Family or caregiver to demonstrate understanding of therapeutic interventions to support the care of the patient. N/A. Plan: Home with 27/10 supervision assist and VNA/PT home services when medically ready for d/c. Discharge Recommendations: Pt would benefit from 27/10 family supervision assist and VNA/PT home services. Level of family supervision assist to be determine by home PT Pager: [phone] WILBER OCAMPO PTA, 04/29/2011 Physical Therapy Rehabilitation Department * Odalis Ford, CHIEF TELEPHONE OPERATOR - 04/29/2011 10:09 AM EST Roxann Baxter 1955 [id number] ELLY LONDON APRN Follow Up Diabetes Consult Patient Interview Mrs. Baxter is anticipating discharge today. Assessment this morning she was sitting in her bedsidechair had just finished breakfast and was looking forward to restarting her home insulin pump. Denied any nausea or vomiting, appetite is good. Given new pump settings and Mrs. Baxter initiated her home insulin pump at about 8:30AM. At about 10:30AM reviewed pump settings with Mrs. Baxter, and discharge recommendations. Temp: [36.7 ??C (98.1 ??F)-37.9 ??C (100.2 ??F)] Heart Rate: [66-73] Resp: [20] BP: (116-134)/(45-77) SpO2: [96 %-98 %] Current Regimen Yesterday Lantus:15 units at 10AM Novolog 1 unit per 12 grams CHO Novolog for correction at custom sensitive scale Q 4 hours Recent Glucose Levels Recent Labs Basename 04/29/11 1151 04/29/11 0956 04/29/11 0741 04/29/11 0426 04/29/11 0213 04/29/11 0008 04/28/11 6082004/28/11 1605 04/28/11 1355 04/28/11 1113 04/28/11 0935 04/28/11 0733 ??? POCGLU 182 261* 258* 159 166 259* 168 228* 346* 354* 315* 136 ASSESSMENT ?? Mrs. Baxter required an additional 18 units of Novolog correction yesterday for the above elevated trend ?? Home insulin pump basal settings increased by 0.1 unit/hour on previous basal rates for total 18units QD ?? Continue with 1 unit per 12 grams CHO ?? Correction factor 25 points for every 1 unit of insulin with goal of 100-125 mg/dL. Follow up appointments made with Dr. Wing on May 07 and Melisa Sales on May 06 Given and reviewed discharge recommendations for Mrs. Jennings outpatient diabetes care plan. Encouraged to call with any problems at home with insulin use. PLAN Home insulin pump with the following settings, orders written to start home insulin pump here. Please call the diabetes team with any questions or concerns regarding her insulin pump. Inpatient Subcutaneous Insulin Pump Instructions Patient may use pump at the following settings. Basal (total daily 18.3 units of basal) Midnight 0.6 units 4 AM 0.8 units 8 AM 0.9 units 4 PM 0.5 units 7 PM 0.8 units Bolus Correction unit for 25 points greater than 100-125 mg/dL Meal associated bolus 1 unit per 12 grams CHO Mrs. Baxter will be provided with a vial of novolog for use as an inpatient. Nursing to check BG QID, and q2h if BG>240 (as per orders); insulin pump should be d/c'd if BG is >240 on two consecutive BG checks. Mrs. Baxter may also request a BG check at any time. If insulin pump is discontinued for any reason including but not limited to: BG>240 for 2 BG checks in a row BG <70 for 2 readings in a row Insulin pump failure Patient's mental status declines and patient cannot reliably run pump Then... Insulin pump should be d/c'd (removed from patient) Novolog should be given to patient by nursing via injection (based on the sensitive correction scale for BG >160 mg/dL) Lantus 18 units should be given immediately Orders should be re-written for SC insulin by either myself pager [phone] (if during day) or by household coordinator Lantus 18 units daily (at whatever time the patient receives the first dose) Novolog 1-7 units with meals (1 unit per 12 grams CHO) Novolog for correction per sensitive correction scale at meals and bedtime Pt. agrees with this plan and has stated back to me that if BGs are over 240 for 2 tests in a row that they will discontinue using their pump for a few days and allow for nursing to use Lantus and Novolog. Odalis Ford APRN [facility] Endocrin[facility] Diabetes Management [phone] Pager [phone] This case was discussed with Dr. Shreyas Pollack. 35 minutes time spent directly with patient, assessment, counseling, seeing patient, restarting insulin pump and discussion with Mrs. Baxter regarding home insulin pump use and reviewing with Mrs. Baxter her insulin pump settings, discharge plan for her diabetes care. An additional 20 minutes spentwith adjusting orders, preparing discharge diabetes care plan and communicating with PCP and primary medicine team and coordinating outpatient appointments. * Wilian Guzmán - 04/29/2011 7:04 AM EST Mrs Baxter was to undergo colonoscopy today to further evaluate her profound iron def anemia. She refused as an inpatient. Please set this up as an outpatient in the next 2-3 weeks. * Roseanne Webber - 04/28/2011 7:00 PM EST Child And Adolescent Psychologist Encounter Note Patient Name: Roxann Baxter : [id number] MR#: [id number] Admit Date: 04/19/2011 6:39 PM Hospital Day 9 days Narrative: I had an initial visit with Ms. Baxter this afternoon, and found her awake, alert and quite responsive to manager grocery. She acknowledged the severity of illness that brought her here, and also her strong desire to return home to family and her dog. Meanwhile she is grateful for the strong support of her cheondoism, which is supplying meals to help her and daughter. Her sales order administrator has also been in to see her. Ms. Baxter spoke of finding meaning and comfort in cheondoism, in contrast to the discomfort she had developed with the tradition in which she had been raised. Assessment: Pt is coping well with this illness, though was deciding to defer another test which she felt wouldfurther debilitate her just as she is beginning to feel better and gain strength. Alivia and cheondoism are very significant sources of support. Intervention and Outcome: Pastoral presence and supportive conversation to build relationship. Follow-up: I will visit again tomorrow to follow up. Time in Direct Care: 25 minutes. ROSEANNE WEBBER 04/28/2011 * Kat Mcfarlane RN - 04/28/2011 5:04 PM EST Office of Care Management Progress Note CRC furnished pt with information regarding diabetes education sessions at [facility] in [place], [place]. Pt very receptive. Kat PATE RN, CRC pager [phone] * Kat Mcfarlane RN - 04/28/2011 4:16 PM EST Office of Care Management Progress Note CRC visited pt at bedside. S: pt states that she is doing better with PT. Pt is concerned with the stairs at home and would like tips on how to do things more easily at homeconsidering her arthritis. Pt is interested in a attending a diabetes clinic or classes in [facility] where she lives. Plan: referrals in to three SNF/Swing facilities placed 04/25/11. Pt will continue to work with PT to determine pt's disposition at time of d/c. Kat Sun. Denys PATE RN, CRC pager [phone] * Wilber Ocampo PTA - 04/28/2011 2:55 PM EST Physical Therapy Progress Note Patient profile: Patient is a 55 y.o. female of Haseeb Garcia MD, admitted on 04/19/2011 for DKA and shock, GIB and presented to the OSH obtunded and not responsive, requiring intubation for2 days. Interval History: Pt is able to verbalize that she is decondition. Precautions/Special Considerations: at risk to fall, Subjective: I'm feeling a lot better than I did when I worked with [employer] last time. I didn't realize how much that my illness brought me down, I fatigue very quickly. I wonder if I'm ready to be at home alone. I've been going back and forth to the bathroom by myself today! Objective: Consulted with RN, Pt cleared to participate in PT. Pt c/o fatigue and lightheadedness with functional activities. Pt request to talk to her CRC and or bilingual social worker. RN notified of Pt status following PT. Total time spent with patient: 20 minutes Total timed interventions: 15 minutes therapeutic functional Pain: Pt reported arthritis discomfort. Vitals: HR: Mid 70's with activity. Sp02%: 97% on RA with activity. Bed Mobility: N/A Transfers: sit<>stand from the cardiac chair to FWW, supervision assist of 1, VC for safe techniques. Gait: Pt ambulated 250 ft with 1 sitting break at 150 ft, FWW and gait belt, supervision assist of 1, VC for technique Gait pattern: Reciprocal. Assistive device: FWW. Stair Training: Pt ascended/descended 13 steps with one hand rail, gait belt contact guard assist of 1, VC for technique. Pt c/o fatigue and lightheadedness at step # 10 but was able to complete following a standing break. Education: Pt educated on the benefits of continued rehab to maximize her functional Patient status, treatment, and mobility recommendations discussed with nursing. Assessment: Pt was pleasant and willing to participate in PT this afternoon. Pt has made good progress with functional mobility, transfer's, gait and stair training activities, however she continues to fatigue quickly and requires intermittent rest breaks to recover. Pt feels good about her progress however realizes that she is decondition and may not be ready to function at home independently with no assist. Pt is pleasant and motivated and would benefit from continued skilled therapeutic interventions to maximize her level of functional independence. Status of Goals: To be achieved by 04/28/11 . 1. Pt. to demonstrate understanding of appropriate exercises. N/A 2. Pt. to perform bed mobility independently . N/A 3. Pt. to perform sit to stand transfers independently utilizing a rolling walker . Supervision assist. 4. Pt. to ambulate 150 feet; with a rolling walker , and independent with assistive device . Supervision assist. 5. Pt. to ambulate up/down flight of step/stairs with supervision , using one railing . Contact guard assist. 6. Family or caregiver to demonstrate understanding of therapeutic interventions to support the care of the patient. N/A. Plan: Pt to be seen 3-5 times per week for therapy including Bed mobility, Transfers, Stairs, Exercise, Gait , Balance and Discharge planning . Patient agrees with plan as stated above. Equipment needs: defer until closer to DC Discharge Recommendations: Patient requires ongoing 24/7 supervision. Patient would benefit from skilled therapy interventionsto promote functional independence and safety while improving activity tolerance. Occupational Therapy consult recommended Pager: [phone] WILBER OCAMPO PTA, 04/28/2011 Physical Therapy Rehabilitation Department * Odalis Ford, CHIEF TELEPHONE OPERATOR - 04/28/2011 1:47 PM EST Roxann Baxter 1955 [id number] ELLY LONDON APRN Follow Up Diabetes Consult Patient Interview Mrs. Baxter stated that she was feeling well this morning. Her appetite has improved and she is eating most of her meals. For breakfast had about 37 grams CHO however only asked for 2 units despite 1unit per 12 gram ratio. Also, lantus had been reduced from 18 unit to 15 units QAM. Remains on Q 4 hour Bg checks and correction insulin. She stated that she had the onset of low BG when 76 mg/dL on Thursday and 83 mg/dL on Thursday however recovered without any problems with a snack. Temp: [36.8 ??C (98.2 ??F)-37.3 ??C (99.1 ??F)] Heart Rate: [66-73] Resp: [16-20] BP: (125-151)/(54-70) SpO2: [94 %-100 %] Current Regimen Lantus:15 units at QAM - changed this morning Novolog 1 unit per 12 grams CHO Novolog for correction at custom sensitive Recent Glucose Levels Recent Labs Basename 04/28/11 1113 04/28/11 0935 04/28/11 0733 04/28/11 0429 04/27/11 2345 04/27/11201004/27/11 72607 1137 04/27/11 0748 04/27/11 0347 04/26/11 2353 04/26/112001 ??? POCGLU 354* 315* 136 120 138 114 203* 201* 269* 76 114 228* ASSESSMENT ?? Basal insulin reduced from 18 to 15 units QAM, there were BG values over the weekend that were low however these were after stacking of correction Novolog doses (14-15 units total within about 8-10 hr period), and BG levels 70-80's. ?? Recommend continuing with basal insulin dose of 18 units. ?? Mrs. Baxter would like to go on her home insulin pump ?? With her BG currently >250 mg/dL this morning however and at lunch will no start home insulinpump until <200 mg/dL. ?? We discussed in hospital use of home insulin pumps and once this is appropriate will transition to her home insulin pump, already calculated rates as well. PLAN Continue with current insulin regimen - will increase Lantus back to 18 units QAM, if restarted on insulin pump later today or tomorrow morning will use the following settings: Inpatient Subcutaneous Insulin Pump Instructions Patient may use pump at the following settings. Basal (total daily 18.3 units of basal) Midnight 0.6 units 4 AM 0.8 units 8 AM 0.9 units 4 PM 0.5 units 7 PM 0.8 units Bolus Correction 1 unit for 25 points greater than 100-125 mg/dL Meal associated bolus 1 unit per 12 grams CHO Mrs. Baxter will be provided with a vial of novolog for use as an inpatient. Nursing to check BG QID, and q2h if BG>240 (as per orders); insulin pump should be d/c'd if BG is >240 on two consecutive BG checks. Mrs. Baxter may also request a BG check at any time. If insulin pump is discontinued for any reason including but not limited to: BG>240 for 2 BG checks in a row BG <70 for 2 readings in a row Insulin pump failure Patient's mental status declines and patient cannot reliably run pump Then... Insulin pump should be d/c'd (removed from patient) Novolog should be given to patient by nursing via injection (based on the sensitive correction scale for BG >160 mg/dL) Lantus 18 units should be given immediately Orders should be re-written for SC insulin by either myself pager [phone] (if during day) or by household coordinator Lantus 18 units daily (at whatever time he receives his first dose) Novolog 1-7 units with meals (1 unit per 12 grams CHO) Novolog for correction per sensitive correction scale at meals and bedtime Pt. agrees with this plan and has stated back to me that if BGs are over 240 for 2 tests in a row that they will discontinue using their pump for a few days and allow for nursing to use Lantus and Novolog. Odalis Ford APRN [facility] End[facility]in[facility] Diabetes Management [phone] Pager [phone] This case was discussed with Dr. Shreyas Pollack. 25 min time spent in patient care with 25 counseling, seeing patient, changing orders and discussion with the patient and the primary team as well as nursing. * Haseeb Virk MD - 04/28/2011 9:07 AM EST Inpatient Hospital Medicine - Progress Note Admit Date: 04/19/2011 Hospital Day 9 days Problem List: Active Hospital Problems Diagnoses ??? DKA (diabetic ketoacidoses) ??? Reflux esophagitis ??? Gastritis ??? Anasarca Resolved Hospital Problems Diagnoses Date Resolved ??? Shock 04/25/2011 Active Non-Hospital Problems Diagnoses ??? Hypertension ??? Hyperlipidemia ??? Hypothyroidism ??? Psoriasis ??? Depression ??? Iron deficiency ??? Asthma ??? Microcytic anemia ??? GERD (gastroesophageal reflux disease) ??? Giron's esophagus ??? Diabetic retinopathy associated with type 1 diabetes mellitus ??? Diabetes mellitus 24 Hour Events / Subjective: Diuresed 4+ L yesterday. More insight today, realizes that she is very weak, just taking a shower sitting down was taxing. Had some very dark stool x 1. No other new complaints. Physical Exam: Last Set of Vitals and range of vitals over past 24 hours: Last value Range last 24 hrs Temperature Temp: 37.1 ??C (98.8 ??F) Temp: [36.8 ??C (98.2 ??F)-37.3 ??C (99.1 ??F)] Heart Rate Heart Rate: 71 Heart Rate: [66-72] Blood Pressure BP: 130/54 mmHg BP: (125-151)/(54-70) Respiratory Rate Resp: 20 Resp: [16-20] SpO2 SpO2: 95 % SpO2: [94 %-100 %] Intake/Output Summary (Last 24 hours) at 04/28/11 0908 Last data filed at 04/28/11 0742 Gross per 24 hour Intake 180 ml Output 5125 ml Net -4945 ml Patient Weight in the past 168 hrs: Weight 04/23/11 0438 101 kg (222 lb 10.6 oz) Physical Exam Constitutional: She is oriented to person, place, and time. She appears well-developed. HENT: Mouth/Throat: Oropharynx is clear and moist. Cardiovascular: Normal rate and regular rhythm. Murmur heard. 2/6 systolic murmur at base. Pulmonary/Chest: Effort normal and breath sounds normal. Diminished BS at bases. Abdominal: Soft. Bowel sounds are normal. She exhibits no distension. No tenderness. Musculoskeletal: She exhibits edema. Edema in hands resolved now. 2+ L>R lower ext edema to above ankles. Neurological: She is alert and oriented to person, place, and time. Skin: Skin is warm. Laboratory (Last 24 Hours): Recent Results (from the past 24 hour(s)) POCT GLUCOSE LAB USE ONLY Component Value Range ??? POC Glucose 201 (*) 60 - 199 (mg/dL) POCT GLUCOSE LAB USE ONLY Component Value Range ??? POC Glucose 203 (*) 60 - 199 (mg/dL) POCT GLUCOSE LAB USE ONLY Component Value Range ??? POC Glucose 114 60 - 199 (mg/dL) POCT GLUCOSE LAB USE ONLY Component Value Range ??? POC Glucose 138 60 - 199 (mg/dL) POCT GLUCOSE LAB USE ONLY Component Value Range ??? POC Glucose 120 60 - 199 (mg/dL) POCT GLUCOSE LAB USE ONLY Component Value Range ??? POC Glucose 136 60 - 199 (mg/dL) Echocardiogram 04/20/11 1. Left ventricular chamber size, wall thickness, global and segmental systolic function are withinnormal limits. Ejection fraction is estimated to be 70%.Doppler assessment is consistent with normal left sided filling pressure. Right ventricular chamber size, wall thickness, and systolic functionare within normal limits.The estimated pulmonary artery systolic pressure is at least 30 mmHg. 2. The aortic valve is tricuspid.The non coronary cusp of the aortic valve is focally thickened. There is no evidence of aortic valve stenosis.Mild (1+/4+) aortic valve regurgitation is present.A vegetation cannot be ruled out on the aortic valve. 3. The mitral valve appears normal in structure and function.There is trace mitral regurgitation present. 4. See remainder of report for additional findings. EGD 04/25/11 Impression: - Hiatal hernia from 32-39. - Widely patent Schatzki ring. - LA Grade C reflux esophagitis. - Multiple gastric polyps consistent with fundic gland polyps - Mild gastritis with linear erosions consistent with NG trauma. - Normal examined duodenum. Recommendation: - Return patient to hospital cyr for ongoing care. - BID PPI x 8 weeks then daily - The attending physician listed above was present for the entire procedure. CXR 04/25/11 IMPRESSION: Resolved pulmonary airspace opacity, [id number] bilateral effusion seen posteriorly. 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 She was transferred to the [facility] ICU in shock requiring mutliple pressors (dopamine, norepinephrine, and vasopressin). In the ICU an NG was placed that drained black coffee ground emesis. Her ICU course with significant troponin elevation and cardiology was consulted. Echocardiogram with preserved EF and no WMA. Eventually weaned off pressors and ventilator. Transferred to hospitalist service 04/22/11 with mainactive problems at time of transfer was confusional state and massive edema in all extremities. MS improved but lacks insight. Anasarca improving but has a ways to go. Plan: 1)AMS-Metabolic Encephalopathy/ICU delirium -resolved. 2)Respiratory -Stable on RA with CXR showing resolution of airspace opacity -Bilateral Effusion. No suspicion for infectious etiology, will continue diuresis with PO lasix -continue lasix for another day or so, expect her to be close to euvolemic at that point 3)GI -Prior coffee ground emesis, but no active GIB -EGD with esophagitis and mil gastritis -PO PPI bid x 8 weeks then daily as recommended by GI -stop asa and proph lovenox due to dark stool, can consider resuming asa as outpt 4)CV -No active chest pain. Troponins trended down and havent been checked prior to transfer to hospitalist service -Prior cardiology evaluation felt it was consistent with demand ischemia in the setting of shock -Will consider JOYCELYN to evaluate questionable aortic valve vegetation if febrile or suspicion for active infection, at this point afebrile with normal WBC count -Consider repeating echo as outpatient 5)ID -Received 3 days of broad spectrum antibiotics in the ICU (vanc/zosyn) but were stopped before transfer. Sputum culture with staph but no clinical evidence of staph pna and CXR 04/25 with resolution of opacity. 6) DM -Resolved DKA -Followed by DM, On SC lantus and meal associated aspart. Not using own insulin pump per DM recs 7)Psoriasis -got iv stress dose steroids, now off (has been off prednisone since the fall) -Currently not on home MTX - resume Q MTX this week 8)Prophylaxis -no pharmacologic VTE proph due to recent GIB and dark stool now. Ambulate, SCD's -Continue PPI bid 9)Dispo -Pending progress with PT, d/c home vs SNF in the next 24-48 hrs HASEEB VIRK MD 04/28/2011 * Haseeb Virk MD - 04/27/2011 11:51 AM EST Inpatient Hospital Medicine - Progress Note Admit Date: 04/19/2011 Hospital Day 8 days Problem List: Active Hospital Problems Diagnoses ??? DKA (diabetic ketoacidoses) ??? Reflux esophagitis ??? Gastritis ??? Anasarca Resolved Hospital Problems Diagnoses Date Resolved ??? Shock 04/25/2011 Active Non-Hospital Problems Diagnoses ??? Hypertension ??? Hyperlipidemia ??? Hypothyroidism ??? Psoriasis ??? Depression ??? Iron deficiency ??? Asthma ??? Microcytic anemia ??? GERD (gastroesophageal reflux disease) ??? Giron's esophagus ??? Diabetic retinopathy associated with type 1 diabetes mellitus ??? Diabetes mellitus 24 Hour Events / Subjective: Diuresed 1 L yesterday. Still weak but ambulating with walker now. No new complaints. Physical Exam: Last Set of Vitals and range of vitals over past 24 hours: Last value Range last 24 hrs Temperature Temp: 37.2 ??C (99 ??F) Temp: [36.9 ??C (98.4 ??F)-37.3 ??C (99.1 ??F)] Heart Rate Heart Rate: 73 Heart Rate: [70-74] Blood Pressure BP: 157/60 mmHg BP: (134-157)/(60-65) Respiratory Rate Resp: 20 Resp: [20] SpO2 SpO2: 97 % SpO2: [96 %-99 %] Intake/Output Summary (Last 24 hours) at 04/27/11 1151 Last data filed at 04/27/11 0400 Gross per 24 hour Intake 480 ml Output 1500 ml Net -1020 ml Patient Weight in the past 168 hrs: Weight 04/23/11 0438 101 kg (222 lb 10.6 oz) 04/21/11 0402 99.2 kg (218 lb 11.1 oz) Physical Exam Constitutional: She is oriented to person, place, and time. She appears well-developed. HENT: Mouth/Throat: Oropharynx is clear and moist. Cardiovascular: Normal rate and regular rhythm. Murmur heard. 2/6 systolic murmur at base. Pulmonary/Chest: Effort normal and breath sounds normal. Diminished BS at bases. Abdominal: Soft. Bowel sounds are normal. No tenderness. Musculoskeletal: She exhibits edema. All extremities with 3 + edema Neurological: She is alert and oriented to person, place, and time. Skin: Skin is warm. Laboratory (Last 24 Hours): Recent Results (from the past 24 hour(s)) POCT GLUCOSE LAB USE ONLY Component Value Range ??? POC Glucose 205 (*) 60 - 199 (mg/dL) POCT GLUCOSE LAB USE ONLY Component Value Range ??? POC Glucose 228 (*) 60 - 199 (mg/dL) POCT GLUCOSE LAB USE ONLY Component Value Range ??? POC Glucose 114 60 - 199 (mg/dL) POCT GLUCOSE LAB USE ONLY Component Value Range ??? POC Glucose 76 60 - 199 (mg/dL) POCT GLUCOSE LAB USE ONLY Component Value Range ??? POC Glucose 269 (*) 60 - 199 (mg/dL) BMP W/FASTING GLUCOSE Component Value Range ??? Glucose Fasting 277 (*) 65 - 99 (mg/dL) ??? BUN 7 (*) 8 - 18 (mg/dL) ??? Creatinine 0.75 0.70 - 1.20 (mg/dL) ??? Sodium 136 135 - 145 (mmol/L) ??? Potassium 3.7 3.5 - 5.0 (mmol/L) ??? Chloride 99 98 - 107 (mmol/L) ??? CO2 30 22 - 31 (mmol/L) ??? Anion Gap 7 5 - 15 (mmol/L) ??? Calcium 8.2 (*) 8.5 - 10.5 (mg/dL) ? ? Estimated GFR >60 >=60 CBC (WITH DIFF) Component Value Range ??? WBC 6.8 4.0 - 10.0 (x10(3)/mcL) ??? RBC 3.94 3.93 - 5.22 (x10(6)/mcL) ??? Hemoglobin 9.6 (*) 11.2 - 15.7 (gm/dL) ??? Hematocrit 30.5 (*) 34.0 - 45.0 (%) ??? MCV 77.4 (*) 79.0 - 94.0 (fL) ??? MCH 24.4 (*) 26.6 - 32.2 (pg) ??? MCHC 31.5 (*) 32.0 - 36.5 (gm/dL) ??? Platelets 245 145 - 370 (x10(3)/mcL) ??? RDWSD 47.9 (*) 35.0 - 46.0 (fL) ??? RDWCV 17.9 (*) 10.9 - 14.4 (%) ??? MPV 10.7 9.0 - 12.0 (fL) DIFFERENTIAL, AUTOMATED Component Value Range ??? Neutrophils % 49.1 34.0 - 71.0 (%) ??? Neutr Abs (ANC) 3.35 1.50 - 6.30 (x10(3)/mcL) ??? Lymphocytes % 35.4 19.0 - 53.0 (%) ??? Lymphocytes Abs 2.4 1.0 - 3.6 (x10(3)/mcL) ??? Monocytes % 10.4 4.0 - 13.0 (%) ??? Monocyte Abs 0.7 0.2 - 1.0 (x10(3)/mcL) ??? Eosinophils % 4.4 0.0 - 7.0 (%) ??? Eosinophils Abs 0.3 0.0 - 0.5 (x10(3)/mcL) ??? Basophils % 0.1 0.0 - 2.0 (%) ??? Basophils Abs 0.0 0.0 - 0.2 (x10(3)/mcL) ??? Immature Gran % 0.60 0.00 - 0.66 (%) ??? Ros Gran Abs 0.04 0.00 - 0.05 (x10(3)/mcL) Echocardiogram 04/20/11 1. Left ventricular chamber size, wall thickness, global and segmental systolic function are withinnormal limits. Ejection fraction is estimated to be 70%.Doppler assessment is consistent with normal left sided filling pressure. Right ventricular chamber size, wall thickness, and systolic functionare within normal limits.The estimated pulmonary artery systolic pressure is at least 30 mmHg. 2. The aortic valve is tricuspid.The non coronary cusp of the aortic valve is focally thickened. There is no evidence of aortic valve stenosis.Mild (1+/4+) aortic valve regurgitation is present.A vegetation cannot be ruled out on the aortic valve. 3. The mitral valve appears normal in structure and function.There is trace mitral regurgitation present. 4. See remainder of report for additional findings. EGD 04/25/11 Impression: - Hiatal hernia from 32-39. - Widely patent Schatzki ring. - LA Grade C reflux esophagitis. - Multiple gastric polyps consistent with fundic gland polyps - Mild gastritis with linear erosions consistent with NG trauma. - Normal examined duodenum. Recommendation: - Return patient to hospital cyr for ongoing care. - BID PPI x 8 weeks then daily - The attending physician listed above was present for the entire procedure. CXR 04/25/11 IMPRESSION: Resolved pulmonary airspace opacity, [id number] bilateral effusion seen posteriorly. 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 She was transferred to the [facility] ICU in shock requiring mutliple pressors (dopamine, norepinephrine, and vasopressin). In the ICU an NG was placed that drained black coffee ground emesis. Her ICU course with significant troponin elevation and cardiology was consulted. Echocardiogram with preserved EF and no WMA. Eventually weaned off pressors and ventilator. Transferred to hospitalist service 04/22/11 with mainactive problems at time of transfer was confusional state and massive edema in all extremities. MS improved but lacks insight. Anasarca improving but has a ways to go. Plan: 1)AMS-Metabolic Encephalopathy/ICU delirium -Largely resolved. Oriented x 3 but still lacks insight. 2)Respiratory -Stable on RA with CXR showing resolution of airspace opacity -Bilateral Effusion. No suspicion for infectious etiology, will continue diuresis with PO lasix -increase lasix to 80 mg for goal of 1.5-2 L negative per day 3)GI -Prior coffee ground emesis, but no active GIB -EGD with esophagitis and mil gastritis -PO PPI bid x 8 weeks then daily as recommended by GI 4)CV -No active chest pain. Troponins trended down and havent been checked prior to transfer to hospitalist service -Prior cardiology evaluation felt it was consistent with demand ischemia in the setting of shock -Will consider JOYCELYN to evaluate questionable aortic valve vegetation if febrile or suspicion for active infection, at this point afebrile with normal WBC count -Consider repeating echo as outpatient 5)ID -Received 3 days of broad spectrum antibiotics in the ICU (vanc/zosyn) but were stopped before transfer. Sputum culture with staph but no clinical evidence of staph pna and CXR 04/25 with resolution of opacity. 6) DM -Resolved DKA -Followed by DM, On SC lantus and meal associated aspart. Not using own insulin pump per DM recs 7)Psoriasis -got iv stress dose steroids, now off (has been off prednisone since the fall) -Currently not on home MTX - resume Q MTX this week 8)Prophylaxis -Pharmacologic VTE proph held due to concerns of GIB. Will start LMWH since not high risk for bleeding. -Continue PPI bid 9)Dispo -Pending progress with PT, likely d/c home early this week HASEEB VIRK MD 04/27/2011 * Haseeb Virk MD - 04/26/2011 12:01 PM EST Inpatient Hospital Medicine - Progress Note Admit Date: 04/19/2011 Hospital Day 7 days Problem List: Active Hospital Problems Diagnoses ??? DKA (diabetic ketoacidoses) ??? Reflux esophagitis ??? Gastritis ??? Anasarca Resolved Hospital Problems Diagnoses Date Resolved ??? Shock 04/25/2011 Active Non-Hospital Problems Diagnoses ??? Hypertension ??? Hyperlipidemia ??? Hypothyroidism ??? Psoriasis ??? Depression ??? Iron deficiency ??? Asthma ??? Microcytic anemia ??? GERD (gastroesophageal reflux disease) ??? Giron's esophagus ??? Diabetic retinopathy associated with type 1 diabetes mellitus ??? Diabetes mellitus 24 Hour Events / Subjective: Continued excellent diuresis. Getting OOB to bathroom now. Feels better but still very weak. Mild stomach discomfort. Physical Exam: Last Set of Vitals and range of vitals over past 24 hours: Last value Range last 24 hrs Temperature Temp: 37.1 ??C (98.8 ??F) Temp: [37 ??C (98.6 ??F)-37.1 ??C (98.8 ??F)] Heart Rate Heart Rate: 73 Heart Rate: [73-76] Blood Pressure BP: 148/57 mmHg BP: (142-148)/(57-70) Respiratory Rate Resp: 20 Resp: [16-20] SpO2 SpO2: 98 % SpO2: [97 %-98 %] Intake/Output Summary (Last 24 hours) at 04/26/11 1201 Last data filed at 04/26/11 0834 Gross per 24 hour Intake 240 ml Output 4375 ml Net -4135 ml Patient Weight in the past 168 hrs: Weight 04/23/11 0438 101 kg (222 lb 10.6 oz) 04/21/11 0402 99.2 kg (218 lb 11.1 oz) 04/19/11 2200 83.3 kg (183 lb 10.3 oz) Physical Exam Constitutional: She is oriented to person, place, and time. She appears well-developed. HENT: Mouth/Throat: Oropharynx is clear and moist. Cardiovascular: Normal rate and regular rhythm. Murmur heard. 2/6 systolic murmur at base. Pulmonary/Chest: Effort normal and breath sounds normal. Diminished BS at bases. Abdominal: Soft. Bowel sounds are normal. No tenderness. Musculoskeletal: She exhibits edema. All extremities with 3 + edema Neurological: She is alert and oriented to person, place, and time. Skin: Skin is warm. Laboratory (Last 24 Hours): Results for orders placed during the hospital encounter of 04/19/11 (from the past 24 hour(s)) POCT GLUCOSE LAB USE ONLY Component Value Range ??? POC Glucose 176 60 - 199 (mg/dL) POCT GLUCOSE LAB USE ONLY Component Value Range ??? POC Glucose 184 60 - 199 (mg/dL) POCT GLUCOSE LAB USE ONLY Component Value Range ??? POC Glucose 222 (*) 60 - 199 (mg/dL) POCT GLUCOSE LAB USE ONLY Component Value Range ??? POC Glucose 138 60 - 199 (mg/dL) POCT GLUCOSE LAB USE ONLY Component Value Range ??? POC Glucose 94 60 - 199 (mg/dL) POCT GLUCOSE LAB USE ONLY Component Value Range ??? POC Glucose 83 60 - 199 (mg/dL) POCT GLUCOSE LAB USE ONLY Component Value Range ??? POC Glucose 179 60 - 199 (mg/dL) BMP W/FASTING GLUCOSE Component Value Range ??? Glucose Fasting 196 (*) 65 - 99 (mg/dL) ??? BUN 7 (*) 8 - 18 (mg/dL) ??? Creatinine 0.76 0.70 - 1.20 (mg/dL) ??? Sodium 136 135 - 145 (mmol/L) ??? Potassium 3.9 3.5 - 5.0 (mmol/L) ??? Chloride 102 98 - 107 (mmol/L) ??? CO2 30 22 - 31 (mmol/L) ??? Anion Gap 4 (*) 5 - 15 (mmol/L) ??? Calcium 8.0 (*) 8.5 - 10.5 (mg/dL) ? ? Estimated GFR >60 >=60 CBC (WITH DIFF) Component Value Range ??? WBC 7.1 4.0 - 10.0 (x10(3)/mcL) ??? RBC 3.94 3.93 - 5.22 (x10(6)/mcL) ??? Hemoglobin 9.8 (*) 11.2 - 15.7 (gm/dL) ??? Hematocrit 30.2 (*) 34.0 - 45.0 (%) ??? MCV 76.6 (*) 79.0 - 94.0 (fL) ??? MCH 24.9 (*) 26.6 - 32.2 (pg) ??? MCHC 32.5 32.0 - 36.5 (gm/dL) ??? Platelets 204 145 - 370 (x10(3)/mcL) ??? RDWSD 47.3 (*) 35.0 - 46.0 (fL) ??? RDWCV 17.8 (*) 10.9 - 14.4 (%) ??? MPV 10.9 9.0 - 12.0 (fL) CK Component Value Range ??? CK, Total 263 (*) 0 - 160 (unit/L) DIFFERENTIAL, AUTOMATED Component Value Range ??? Neutrophils % 52.5 34.0 - 71.0 (%) ??? Neutr Abs (ANC) 3.71 1.50 - 6.30 (x10(3)/mcL) ??? Lymphocytes % 32.2 19.0 - 53.0 (%) ??? Lymphocytes Abs 2.3 1.0 - 3.6 (x10(3)/mcL) ??? Monocytes % 10.3 4.0 - 13.0 (%) ??? Monocyte Abs 0.7 0.2 - 1.0 (x10(3)/mcL) ??? Eosinophils % 4.4 0.0 - 7.0 (%) ??? Eosinophils Abs 0.3 0.0 - 0.5 (x10(3)/mcL) ??? Basophils % 0.0 0.0 - 2.0 (%) ??? Basophils Abs 0.0 0.0 - 0.2 (x10(3)/mcL) ??? Immature Gran % 0.60 0.00 - 0.66 (%) ??? Ros Gran Abs 0.04 0.00 - 0.05 (x10(3)/mcL) Echocardiogram 04/20/11 1. Left ventricular chamber size, wall thickness, global and segmental systolic function are withinnormal limits. Ejection fraction is estimated to be 70%.Doppler assessment is consistent with normal left sided filling pressure. Right ventricular chamber size, wall thickness, and systolic functionare within normal limits.The estimated pulmonary artery systolic pressure is at least 30 mmHg. 2. The aortic valve is tricuspid.The non coronary cusp of the aortic valve is focally thickened. There is no evidence of aortic valve stenosis.Mild (1+/4+) aortic valve regurgitation is present.A vegetation cannot be ruled out on the aortic valve. 3. The mitral valve appears normal in structure and function.There is trace mitral regurgitation present. 4. See remainder of report for additional findings. EGD 04/25/11 Impression: - Hiatal hernia from 32-39. - Widely patent Schatzki ring. - LA Grade C reflux esophagitis. - Multiple gastric polyps consistent with fundic gland polyps - Mild gastritis with linear erosions consistent with NG trauma. - Normal examined duodenum. Recommendation: - Return patient to hospital cyr for ongoing care. - BID PPI x 8 weeks then daily - The attending physician listed above was present for the entire procedure. CXR 04/25/11 IMPRESSION: Resolved pulmonary airspace opacity, [id number] bilateral effusion seen posteriorly. 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 female with nursing home DM1, poorly controlled with last HbA1C of 9% who presented to [place] on 04/20/2011 obtunded and not responsive and diagnosed with DKA. She was transferred to the [facility] ICU in shock requiring mutliple pressors (dopamine, norepinephrine, and vasopressin). In the ICU an NG was placed that drained black coffee ground emesis. Her ICU course with significant troponin elevation and cardiology was consulted. Echocardiogram with preserved EF and no WMA. Eventually weaned off pressors and ventilator. Transferred to hospitalist service 04/22/11 with mainactive problems at time of transfer was confusional state and massive edema in all extremities Plan: 1)AMS-Metabolic Encephalopathy/ICU delirium -Resolved. Oriented x 3 2)Respiratory -Stable on RA with CXR showing resolution of airspace opacity -Bilateral Effusion. No suspicion for infectious etiology, will continue diuresis with PO lasix 3)GI -Prior coffee ground emesis, but no active GIB -EGD with esophagitis and mil gastritis -Switched to PO PPI bid as recommended by GI 4)CV -No active chest pain. Troponins trended down and havent been checked prior to transfer to hospitalist service -Prior cardiology evaluation felt it was consistent with demand ischemia in the setting of shock -Will consider JOYCELYN to evaluate questionable aortic valve vegetation if febrile or suspicion for active infection, at this point afebrile with normal WBC count -Consider repeating echo as outpatient 5)ID -Received 3 days of broad spectrum antibiotics in the ICU (vanc/zosyn) but were stopped before transfer. Sputum culture with staph but no clinical evidence of staph pna and CXR 04/25 with resolution of opacity. 6) DM -Resolved DKA -Followed by DM, On SC lantus and meal associated aspart. Not using own insulin pump per DM recs 7)Psoriasis -Switch to home dose prednisone (from hydrocortisone IV 50 q8h) -Currently not on home MTX 8)Prophylaxis -Pharmacologic VTE proph held due to concerns of GIB. Will start LMWH since not high risk for bleeding. -Continue PPI bid 9)Misc -Followed by PT -Patient 83 kg (04/19) on admission and 101 (04/23) with tense edema. Excellent diuresis. Monitor weight and renal function 10)Dispo -Pending progress with PT HASEEB VIRK MD 04/26/2011 * GuzmanFelix martinez Romel - 04/25/2011 7:21 PM EST Inpatient Hospital Medicine - Progress Note Admit Date: 04/19/2011 Hospital Day 6 days Problem List: Active Hospital Problems Diagnoses ??? DKA (diabetic ketoacidoses) Resolved Hospital Problems Diagnoses Date Resolved ??? Shock 04/25/2011 Active Non-Hospital Problems Diagnoses ??? Hypertension ??? Hyperlipidemia ??? Hypothyroidism ??? Psoriasis ??? Depression ??? Iron deficiency ??? Asthma ??? Microcytic anemia ??? GERD (gastroesophageal reflux disease) ??? Giron's esophagus ??? Diabetic retinopathy associated with type 1 diabetes mellitus ??? Diabetes mellitus 24 Hour Events: CVC removed On lasix IV with excellent diuresis Participating with PT EGD done today Resolved confusional state Subjective: Feels less exhausted Physical Exam: Last Set of Vitals and range of vitals over past 24 hours: Last value Range last 24 hrs Temperature Temp: 37 ??C (98.6 ??F) Temp: [36.5 ??C (97.7 ??F)-37 ??C (98.6 ??F)] Heart Rate Heart Rate: 76 Heart Rate: [70-102] Blood Pressure BP: 148/70 mmHg BP: (121-154)/(40-80) Respiratory Rate Resp: 16 Resp: [13-20] SpO2 SpO2: 98 % SpO2: [94 %-99 %] Intake/Output Summary (Last 24 hours) at 04/25/11 1921 Last data filed at 04/25/11 1800 Gross per 24 hour Intake 1180 ml Output 4725 ml Net -3545 ml Patient Weight in the past 168 hrs: Weight 04/23/11 0438 101 kg (222 lb 10.6 oz) 04/21/11 0402 99.2 kg (218 lb 11.1 oz) 04/19/11 2200 83.3 kg (183 lb 10.3 oz) Physical Exam Constitutional: She appears well-developed. HENT: Head: Normocephalic and atraumatic. Eyes: EOM are normal. Pupils are equal, round, and reactive to light. Neck: Normal range of motion. Cardiovascular: Normal rate and regular rhythm. Pulmonary/Chest: Effort normal and breath sounds normal. Abdominal: Soft. Bowel sounds are normal. Musculoskeletal: She exhibits edema. All extremities with 3 + edema Skin: Skin is warm. Laboratory (Last 24 Hours): Recent Results (from the past 24 hour(s)) POCT GLUCOSE LAB USE ONLY Component Value Range ??? POC Glucose 212 (*) 60 - 199 (mg/dL) POCT GLUCOSE LAB USE ONLY Component Value Range ??? POC Glucose 103 60 - 199 (mg/dL) POCT GLUCOSE LAB USE ONLY Component Value Range ??? POC Glucose 75 60 - 199 (mg/dL) BMP W/FASTING GLUCOSE Component Value Range ??? Glucose Fasting 151 (*) 65 - 99 (mg/dL) ??? BUN 8 8 - 18 (mg/dL) ??? Creatinine 0.58 (*) 0.70 - 1.20 (mg/dL) ??? Sodium 143 135 - 145 (mmol/L) ??? Potassium 3.8 3.5 - 5.0 (mmol/L) ??? Chloride 108 (*) 98 - 107 (mmol/L) ??? CO2 29 22 - 31 (mmol/L) ??? Anion Gap 6 5 - 15 (mmol/L) ??? Calcium 7.5 (*) 8.5 - 10.5 (mg/dL) ? ? Estimated GFR >60 >=60 CBC (WITH DIFF) Component Value Range ??? WBC 8.0 4.0 - 10.0 (x10(3)/mcL) ??? RBC 3.78 (*) 3.93 - 5.22 (x10(6)/mcL) ??? Hemoglobin 9.4 (*) 11.2 - 15.7 (gm/dL) ??? Hematocrit 28.9 (*) 34.0 - 45.0 (%) ??? MCV 76.5 (*) 79.0 - 94.0 (fL) ??? MCH 24.9 (*) 26.6 - 32.2 (pg) ??? MCHC 32.5 32.0 - 36.5 (gm/dL) ??? Platelets 161 145 - 370 (x10(3)/mcL) ??? RDWSD 47.1 (*) 35.0 - 46.0 (fL) ??? RDWCV 17.2 (*) 10.9 - 14.4 (%) ??? MPV 10.1 9.0 - 12.0 (fL) CK Component Value Range ??? CK, Total 374 (*) 0 - 160 (unit/L) DIFFERENTIAL, AUTOMATED Component Value Range ??? Neutrophils % 63.6 34.0 - 71.0 (%) ??? Neutr Abs (ANC) 5.06 1.50 - 6.30 (x10(3)/mcL) ??? Lymphocytes % 24.1 19.0 - 53.0 (%) ??? Lymphocytes Abs 1.9 1.0 - 3.6 (x10(3)/mcL) ??? Monocytes % 9.8 4.0 - 13.0 (%) ??? Monocyte Abs 0.8 0.2 - 1.0 (x10(3)/mcL) ??? Eosinophils % 2.0 0.0 - 7.0 (%) ??? Eosinophils Abs 0.2 0.0 - 0.5 (x10(3)/mcL) ??? Basophils % 0.0 0.0 - 2.0 (%) ??? Basophils Abs 0.0 0.0 - 0.2 (x10(3)/mcL) ??? Immature Gran % 0.50 0.00 - 0.66 (%) ??? Ros Gran Abs 0.04 0.00 - 0.05 (x10(3)/mcL) POCT GLUCOSE LAB USE ONLY Component Value Range ??? POC Glucose 163 60 - 199 (mg/dL) POCT GLUCOSE LAB USE ONLY Component Value Range ??? POC Glucose 152 60 - 199 (mg/dL) POCT GLUCOSE LAB USE ONLY Component Value Range ??? POC Glucose 176 60 - 199 (mg/dL) POCT GLUCOSE LAB USE ONLY Component Value Range ??? POC Glucose 184 60 - 199 (mg/dL) Echocardiogram 04/20/11 1. Left ventricular chamber size, wall thickness, global and segmental systolic function are within normal limits. Ejection fraction is estimated to be 70%.Doppler assessment is consistent with normal left sided filling pressure. Right ventricular chamber size, wall thickness, and systolic function are within normal limits.The estimated pulmonary artery systolic pressure is at least 30 mmHg. 2. The aortic valve is tricuspid.The non coronary cusp of the aortic valve is focally thickened. There is no evidence of aortic valve stenosis.Mild (1+/4+) aortic valve regurgitation is present.A vegetation cannot be ruled out on the aortic valve. 3. The mitral valve appears normal in structure and function.There is trace mitral regurgitation present. 4. See remainder of report for additional findings. EGD 04/25/11 Impression: - Hiatal hernia from 32-39. - Widely patent Schatzki ring. - LA Grade C reflux esophagitis. - Multiple gastric polyps consistent with fundic gland polyps - Mild gastritis with linear erosions consistent with NG trauma. - Normal examined duodenum. Recommendation: - Return patient to hospital cyr for ongoing care. - BID PPI x 8 weeks then daily - The attending physician listed above was present for the entire procedure. CXR 04/25/11 IMPRESSION: Resolved pulmonary airspace opacity, [id number] bilateral effusion seen posteriorly. 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 female with nursing home DM1, poorly controlled with last HbA1C of 9% who presented to [place] on 04/20/2011 obtunded and not responsive and diagnosed with DKA. She was transferred to the [facility] ICU in shock requiring mutliple pressors (dopamine, norepinephrine, and vasopressin). In the ICU an NG was placed that drained black coffee ground emesis. Her ICU course with significant troponin elevation and cardiology was consulted. Echocardiogram with preserved EF and no WMA. Eventually weaned off pressors and ventilator. Transferred to hospitalist service 04/22/11 with mainactive problems at time of transfer was confusional state and massive edema in all extremities Plan: 1)AMS-Metabolic Encephalopathy/ICU delirium -Resolved. Oriented x 3 2)Respiratory -Stable on RA with CXR showing resolution of airspace opacity -Bilateral Effusion. No suspicion for infectious etiology, will continue diuresis with PO lasix 3)GI -Prior coffee ground emesis, but no active GIB -EGD with esophagitis and mil gastritis -Switched to PO PPI bid as recommended by GI 4)CV -No active chest pain. Troponins trended down and havent been checked prior to transfer to hospitalist service -Prior cardiology evaluation felt it was consistent with demand ischemia in the setting of shock -Will consider JOYCELYN to evaluate questionable aortic valve vegetation if febrile or suspicion for active infection, at this point afebrile with normal WBC count -Consider repeatingt echo as outpatient 5)ID -Received 3 days of broad spectrum antibiotics in the ICU (vanc/zosyn) but were stopped before transfer. Sputum culture with staph but no clinical evidence of staph pna and CXR today with resolution of opacity. 6) DM -Resolved DKA -Followed by DM, On SC lantus 18 and meal associated aspart. Not using own insulin pump per DM recs 7)Psoriasis -Switch to home dose prednisone (from hydrocortisone IV 50 q8h) -Currently not on home MTX 8)Prophylaxis -Pharmacologic VTE prophylaxis held due to concerns of GIB. Will start since not high risk for bleeding. -Continue PPI bid 9)Misc -Followed by PT -Patient 83 kg (04/19) on admission and 101 (04/23) with tense edema. Excellent diuresis. Monitor weight and renal function 10)Dispo -Pending progress with PT FELIX GUZMAN MD 04/25/2011 * Odalis Ford, CHIEF TELEPHONE OPERATOR - 04/25/2011 5:41 PM EST Roxann Baxter 1955 [id number] Follow Up Diabetes Consult Patient Interview Mrs. Baxter had EGD completed today. Low BG in early AM to 75 mg/dL, BG improved with some juice. Mrs. Baxter's brought in her insulin pump from home however no reservoir available. We discussed again her comfort with using her insulin pump at this point and she stated that she would like to do injections until she sees Dr. Wing and perhaps follow up with Melisa Sales. We reviewed her current diabetes recommendations. Temp: [36.5 ??C (97.7 ??F)-36.9 ??C (98.4 ??F)] Heart Rate: [70-102] Resp: [13-20] BP: (121-154)/(40-80) SpO2: [94 %-99 %] Current Regimen Lantus:18 units at QAM at 10AM Novolog 1 unit per 12 grams CHO for meals Novolog for correction at moderate correction scale Recent Glucose Levels Recent Labs Basename 04/25/11 1648 04/25/11 1221 04/25/11 1016 04/25/11 0800 04/25/11 0429 04/24/11 2331 04/24/11 [id number] 1705 04/24/11 1445 04/24/11 1133 04/24/11 0735 04/24/11 0403 ??? POCGLU 184 176 152 163 75 103 212* 121 145 161 113 177 ASSESSMENT ?? Reviewed discharge recommendations as noted below specifically highlighted sick day rules ?? Over the weekend for further assistance with BG management or if BG <60 or >300 mg/dL please contact the caul puller water pollution control technician. Dr. Barrera and Dr. Moore, who will be in touch with the primary team if adjustments to her insulin regimen need to be made. ?? For discharge will need lantus rx, novolog or humalog pens, and needles. New Rx's entered and pending for d/c PLAN Lantus:18 units at QAM at 10AM Novolog 1 unit per 12 grams CHO for meals Novolog for correction at moderate correction scale Roxann Baxter [id number] 1955 Diabetes Care Instructions Instructions for Lantus Insulin (LONG ACTING) 1. Inject LANTUS insulin at 9 AM each morning. Start at 18 units tomorrow morning. 2. Check blood glucose (BG) before breakfast 3. If the blood glucose before breakfast is over 150 for two days in a row, add ONE unit of insulinto the next LANTUS dose. This increased dose becomes your new dose, continue to increase as needed. 4. If the blood glucose before breakfast under 90 for two days in a row, subtract TWO units of insulin from the next LANTUS dose. This lower dose becomes your new dose, continue to decrease as needed. 5. If you should forget to take your Lantus, take your usual dose as soon as you realize it was missed. Gradually work back to taking it at 9 AM, moving it by 2 - 3 hours each day. Instructions for mealtime Novolog insulin (RAPID ACTING) 1. Check blood glucose before each meal. 2. Inject 1 unit per 12 grams Carbohydrate ADD the following dose if your blood glucose is over 140 at meal time Blood Sugar NOVOLOG DOSE 140-160 ADD 1 unit 161-200 ADD 2 units 201-240 ADD 3 units >240 ADD 6 units 3. If eating out or eating more than usual, increase the dose by 2 units for that meal. 4. If eating less than usual or if blood sugar is < 90, decrease the dose by 2 units for that meal. 5. Three times per week, check your blood glucose 1-2 hours after the injection - it should be under 180. If the BG is higher than 180, do not take an extra dose at that time. The dose of insulin for that meal should be increased by 1 unit the next time you are eating that meal 6. If you should forget to take your Novolog... If it is less than an hour since you ate your meal, take the usual dose If more than an hour has passed since you ate, omit that dose. Try to get some extra exercise and drink a lot of water to help with the high blood sugar. Treatment of Low Blood Sugar (Hypoglycemia) If your BG is lower than 80, you are likely to feel shaky, sweaty and lightheaded. This is a signalthat your body needs more sugar. Quickly eat or drink a small serving of something sweet, such as: ?? 4 ounces fruit juice or regular (not diet) soda ?? 6 lifesavers ?? 4-8 glucose tablets (~15-30 gm of glucose) ?? If your BG is very low <50, you can double the amount above or take 30 gm of glucose gel/tablets. ?? Sit and rest and you should feel better within a few minutes. Once you are feeling better, try to determine why your BG was so low. Common causes of hypoglycemia include skipping a meal, lots of exercise, too much insulin or any combination of these things. Understanding the cause my help you toavoid another low BG in the future. Sick Days When you are sick it can be very challenging to control your blood sugars. This includes having a cold, the flu, a fever, stomach bug, or other infection. To help manage your blood sugars and stay well here are some tips: 5. Increase (non-caffeine) fluids drink at least 8 ounces an hour 5. Try to eat a normal meal plan (if not able to see foods below) If you have high Blood sugars (consistently >240 mg/dL): 5. Check for ketones 6. If positive call your primary care doctor If you can not eat your meals while you are sick it is still important that you get about 50grams of carbohydrates every 4 hours. Foods that can be helpful and that you should have in hand include the following: ?? Sports drinks ?? Regular gelatin ?? Canned soup ?? Juice ?? Regular soft drinks ?? Crackers ?? Instant cooked cereals ?? Applesauce ?? Instant pudding Call your doctor for blood sugars under 80 or over 300 twice in one day. Odalis JIMENEZ [facility] Section of Endocrinology Diabetes Management Odalis Ford APRN [facility] Endocrinology Diabetes Management [phone] Pager [phone] This case was discussed with Dr. Shreyas Pollack. 25 min time spent in patient care with 20 counseling, seeing patient, changing orders and discussion with the patient and the primary team as well as nursing. * Purvi Ortiz, PT - 04/25/2011 3:18 PM EST Physical Therapy Progress Note Patient profile: Patient is a 55 y.o. female of Felix Lee MD, admitted on 04/19/2011 for DKA and shock, GIB and presented to the OSH obtunded and not responsive, requiring intubation for 2 days. Interval History: had EGD completed today Precautions/Special Considerations: at risk to fall, nicholson cath Subjective: Yes. pt stated when asked if it was hard to focus on what this PT was asking her to do at times. Objective: Total time spent with patient: 25 minutes Total timed interventions: 23 minutes therapeutic functional Continued slowed cognition with functional tasks. Pain: Pt reported increased lumbar pain with activity today, reporting she has baseline spine arthritis. Bed Mobility: supine>sitting EOB with min-mod assist x1, vc for techniques Transfers: sit<>stand from the cardiac chair with moderate assist x1 with frequent vc and manual cues for safe hand placement. Pt required assist x2 to sit>stand from a lower surface from the black chair. Gait: Pt ambulated 75 feet with FWW and min assist x1 with chair following. Pt required a sitting rest of ~1 minute and ambulated another 75 feet for a total of 150 feet. Pt needing frequent cues to keep the walker from bumping into objects to the side of her. Education: Pt educated on the benefits of continued rehab to maximize her functional Patient status, treatment, and mobility recommendations discussed with nursing. Assessment: Pt does not seem to recognize her functional limitations at the time and what she needs to be able to do to live at home, with a working , and care for her daughter. She is progressing her ambulation with the walker though fatigues quickly and needs continues to need cues to keep the walker from bumping into objects along the hallway. She required assist x2 to come to stand when seated on lower surfaces. Pt would benefit from an Occupational Therapy consult please. Status of Goals: To be achieved by 04/28/11 . 1. Pt. to demonstrate understanding of appropriate exercises. 2. Pt. to perform bed mobility independently . 3. Pt. to perform sit to stand transfers independently utilizing a rolling walker . 4. Pt. to ambulate 150 feet; with a rolling walker , and independent with assistive device . 5. Pt. to ambulate up/down flight of step/stairs with supervision , using one railing . 6. Family or caregiver to demonstrate understanding of therapeutic interventions to support the care of the patient. Plan: Pt to be seen 3-5 times per week for therapy including Bed mobility, Transfers, Stairs, Exercise, Gait , Balance and Discharge planning . Patient agrees with plan as stated above. Equipment needs: defer until closer to DC Discharge Recommendations: Patient requires ongoing 24/7 supervision. Patient would benefit from skilled therapy interventionsto promote functional independence and safety while improving activity tolerance. Occupational Therapy consult recommended Pager: [phone] PURVI ORTIZ, PT, 04/25/2011 Physical Therapy Rehabilitation Department * Purvi Ortiz, PT - 04/24/2011 7:25 PM EST Physical Therapy Progress Note Patient profile: Patient is a 55 y.o. female of Felix Lee MD, admitted on 04/19/2011 for DKA. Interval History: off insulin drip. No acute events. Precautions/Special Considerations: at risk to fall Subjective: I feel so weak. Objective: Total time spent with patient: 25 minutes Total timed interventions: 23 minutes therapeutic functional Pt initially refusing to get out of bed reporting feeling nauseous and dizzy. RN had just provided pt with IV Zofran and checked her Blood zvtnt=[id number]. RN strongly encouraged pt to get up and out of bed and participate with PT and pt then agreed. Pain: Pt did not report any pain during the session Bed Mobility: supine>sitting EOB with min-mod assist x1, vc for techniques Transfers: sit<>stand from elevated EOB with min assist x1 initially, sit<>stand from cardiac chair with mod-max assist x1, pt needing cues for safe hand placement when using the walker. Sit<>stand from EOB with min-CGA after ambulating. Gait: Pt ambulated ~60 feet with FWW and mod assist x1 with chair following and required a sitting rest of 1-2 minutes. Pt ambulated another 60 feet with mod assist x1. Pt needing constant vc and manual cues to manage the walker as she tends to veer into objects with the walker ? Lack of attention.Pt initially demonstrated a very slow toan with a step to gait pattern. When provided verbal cues (right foot, left foot) she increase her speed and step length. Balance: Requires 2 hands on FWW for standing balance. Pt able to sit statically EOB with out loss of balance. Education: Pt educated on the importance of early mobility and progressing toward her goals of returning to functional independence. Patient status, treatment, and mobility recommendations discussed with nursing. Assessment: Pt's cognitive status continues to improve though overall slowed processing and poor attention. Pt slowly progressing her ambulation distances with a walker and assist x1. Pt will benefit from continued daily interventions as found in a rehab setting to maximize her safe functional independence. Pt would benefit from an Occupational Therapy consult. Status of Goals: To be achieved by 04/28/11 . 1. Pt. to demonstrate understanding of appropriate exercises. 2. Pt. to perform bed mobility independently . 3. Pt. to perform sit to stand transfers independently utilizing a rolling walker . 4. Pt. to ambulate 150 feet; with a rolling walker , and independent with assistive device . 5. Pt. to ambulate up/down flight of step/stairs with supervision , using one railing . 6. Family or caregiver to demonstrate understanding of therapeutic interventions to support the care of the patient. Plan: Pt to be seen 3-5 times per week for therapy including Bed mobility, Transfers, Stairs, Exercise, Gait , Balance and Discharge planning . Patient agrees with plan as stated above. Equipment needs: defer until closer to DC Discharge Recommendations: Patient requires ongoing 24/7 supervision. Patient would benefit from skilled therapy interventionsto promote functional independence and safety while improving activity tolerance. Occupational Therapy consult recommended Pager: [phone] PURVI ORTIZ, PT, 04/24/2011 Physical Therapy Rehabilitation Department * Felix Guzman - 04/24/2011 12:23 PM EST Inpatient Hospital Medicine - Progress Note Admit Date: 04/19/2011 Hospital Day 5 days Problem List: No resolved problems to display. Active Hospital Problems Diagnoses ??? DKA (diabetic ketoacidoses) ??? Shock Resolved Hospital Problems Diagnoses Date Resolved Active Non-Hospital Problems Diagnoses ??? Hypertension ??? Hyperlipidemia ??? Hypothyroidism ??? Psoriasis ??? Depression ??? Iron deficiency ??? Asthma ??? Microcytic anemia ??? GERD (gastroesophageal reflux disease) ??? Giron's esophagus ??? Diabetic retinopathy associated with type 1 diabetes mellitus ??? Diabetes mellitus 24 Hour Events: Off insulin drip Off IVF Diuresis started Improved mentation Subjective: Feels exhausted, no CP or SOB Physical Exam: Last Set of Vitals and range of vitals over past 24 hours: Last value Range last 24 hrs Temperature Temp: 37 ??C (98.6 ??F) Temp: [37 ??C (98.6 ??F)-37.2 ??C (99 ??F)] Heart Rate Heart Rate: 68 Heart Rate: [67-80] Blood Pressure BP: 130/63 mmHg BP: (130-161)/(52-63) Respiratory Rate Resp: 20 Resp: [20-22] SpO2 SpO2: 97 % SpO2: [96 %-97 %] Intake/Output Summary (Last 24 hours) at 04/24/11 1223 Last data filed at 04/24/11 1101 Gross per 24 hour Intake 920 ml Output 4900 ml Net -3980 ml Physical Exam Constitutional: She appears well-developed. HENT: Head: Normocephalic and atraumatic. Eyes: EOM are normal. Pupils are equal, round, and reactive to light. Neck: Normal range of motion. Cardiovascular: Normal rate and regular rhythm. Pulmonary/Chest: Effort normal and breath sounds normal. Abdominal: Soft. Bowel sounds are normal. Musculoskeletal: She exhibits edema. All extremities with 3 + edema Skin: Skin is warm. Laboratory (Last 24 Hours): Recent Results (from the past 24 hour(s)) POCT GLUCOSE LAB USE ONLY Component Value Range ??? POC Glucose 169 60 - 199 (mg/dL) POCT GLUCOSE LAB USE ONLY Component Value Range ??? POC Glucose 177 60 - 199 (mg/dL) POCT GLUCOSE LAB USE ONLY Component Value Range ??? POC Glucose 200 (*) 60 - 199 (mg/dL) GREEN TUBE HOLD Component Value Range ??? Green Hold Sample in lab. LAVENDER TUBE HOLD Component Value Range ??? Lavender Hold Sample in lab. POCT GLUCOSE LAB USE ONLY Component Value Range ??? POC Glucose 146 60 - 199 (mg/dL) POCT GLUCOSE LAB USE ONLY Component Value Range ??? POC Glucose 94 60 - 199 (mg/dL) POCT GLUCOSE LAB USE ONLY Component Value Range ??? POC Glucose 177 60 - 199 (mg/dL) BMP W/FASTING GLUCOSE Component Value Range ??? Glucose Fasting 126 (*) 65 - 99 (mg/dL) ??? BUN 13 8 - 18 (mg/dL) ??? Creatinine 0.72 0.70 - 1.20 (mg/dL) ??? Sodium 145 135 - 145 (mmol/L) ??? Potassium 2.7 (*) 3.5 - 5.0 (mmol/L) ??? Chloride 111 (*) 98 - 107 (mmol/L) ??? CO2 28 22 - 31 (mmol/L) ??? Anion Gap 6 5 - 15 (mmol/L) ??? Calcium 7.7 (*) 8.5 - 10.5 (mg/dL) ? ? Estimated GFR >60 >=60 CBC (WITH DIFF) Component Value Range ??? WBC 9.8 4.0 - 10.0 (x10(3)/mcL) ??? RBC 3.60 (*) 3.93 - 5.22 (x10(6)/mcL) ??? Hemoglobin 8.9 (*) 11.2 - 15.7 (gm/dL) ??? Hematocrit 27.2 (*) 34.0 - 45.0 (%) ??? MCV 75.6 (*) 79.0 - 94.0 (fL) ??? MCH 24.7 (*) 26.6 - 32.2 (pg) ??? MCHC 32.7 32.0 - 36.5 (gm/dL) ??? Platelets 145 145 - 370 (x10(3)/mcL) ??? RDWSD 47.4 (*) 35.0 - 46.0 (fL) ??? RDWCV 17.3 (*) 10.9 - 14.4 (%) ??? MPV 9.9 9.0 - 12.0 (fL) CK Component Value Range ??? CK, Total 656 (*) 0 - 160 (unit/L) DIFFERENTIAL, AUTOMATED Component Value Range ??? Neutrophils % 62.3 34.0 - 71.0 (%) ??? Neutr Abs (ANC) 6.12 1.50 - 6.30 (x10(3)/mcL) ??? Lymphocytes % 29.4 19.0 - 53.0 (%) ??? Lymphocytes Abs 2.9 1.0 - 3.6 (x10(3)/mcL) ??? Monocytes % 7.7 4.0 - 13.0 (%) ??? Monocyte Abs 0.8 0.2 - 1.0 (x10(3)/mcL) ??? Eosinophils % 0.3 0.0 - 7.0 (%) ??? Eosinophils Abs 0.0 0.0 - 0.5 (x10(3)/mcL) ??? Basophils % 0.0 0.0 - 2.0 (%) ??? Basophils Abs 0.0 0.0 - 0.2 (x10(3)/mcL) ??? Immature Gran % 0.30 0.00 - 0.66 (%) ??? Ros Gran Abs 0.03 0.00 - 0.05 (x10(3)/mcL) POCT GLUCOSE LAB USE ONLY Component Value Range ??? POC Glucose 113 60 - 199 (mg/dL) POCT GLUCOSE LAB USE ONLY Component Value Range ??? POC Glucose 161 60 - 199 (mg/dL) Echocardiogram 04/20/11 1. Left ventricular chamber size, wall thickness, global and segmental systolic function are within normal limits. Ejection fraction is estimated to be 70%.Doppler assessment is consistent with normal left sided filling pressure. Right ventricular chamber size, wall thickness, and systolic function are within normal limits.The estimated pulmonary artery systolic pressure is at least 30 mmHg. 2. The aortic valve is tricuspid.The non coronary cusp of the aortic valve is focally thickened. There is no evidence of aortic valve stenosis.Mild (1+/4+) aortic valve regurgitation is present.A vegetation cannot be ruled out on the aortic valve. 3. The mitral valve appears normal in structure and function.There is trace mitral regurgitation present. 4. See remainder of report for additional findings. 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 female with nursing home DM1, poorly controlled with last HbA1C of 9% who presented to [place] on 04/20/2011 obtunded and not responsive and diagnosed with DKA. [facility] [facility] requiring mutliple pressors (dopamine, norepinephrine, and vasopressin). In the ICU an NG was placed that drained black coffee ground emesis. Her ICU course with significant troponin elevation and cardiology was consulted. Echocardiogram with preserved EF and no WMA. Eventually weaned off pressors and ventilator. Transferred to hospitalist service 04/22/11 with mainactive problems being confusional state. Plan: 1)AMS-Metabolic Encephalopathy/ICU delirium -Resolved. Oriented x 3 2)Respiratory -Stable on RA 3)GI -Prior coffee ground emesis, but no active GIB -Consider EGD before discharge 4)CV -No active chest pain. Troponins trending down -Prior cardiology evaluation felt it was consistent with demand ischemia in the setting of shock -Will consider JOYCELYN to evaluate questionable aortic valve vegetation, but no evidence of active infection 5)ID -Received 3 days of broad spectrum antibiotics in the ICU (vanc/zosyn) but were stopped before transfer. Sputum culture with staph but no clinical evidence of staph pna. 6) DM -Resolved DKA -Followed by DM, On SC lantus 18 and meal associated aspart. Not using own insulin pump per DM recs 7)Psoriasis -Switch to home dose prednisone (from hydrocortisone IV 50 q8h) -Currently not on home MTX 8)Prophylaxis -Pharmacologic VTE prophylaxis held due to concerns of GIB -Continue PPI 9)Misc -Followed by PT -Patient 83 kg on admission and currently 101 with tense edema, will start diuresing while monitoring renal function -Replace K, check Mg 10)Dispo -Pending progress with PT FELIX GUZMAN MD 04/24/2011 * Roseanne Webber - 04/24/2011 11:37 AM EST Child And Adolescent Psychologist Encounter Note Patient Name: Roxann Baxter : [id number] MR#: [id number] Admit Date: 04/19/2011 6:39 PM Hospital Day 5 days Narrative: I have tried several times to visit this week; pt has been sleeping. Assessment: n/a Intervention and Outcome: n/a Follow-up: I will try again in four days. Time in Direct Care: 0 minutes. ROSEANNE WEBBER 04/24/2011 * Odalis Ford APRN - 04/24/2011 8:59 AM EST Roxann Baxter 1955 [id number] Dr. Miramontes PCP Follow Up Diabetes Consult Patient Interview Mrs. Baxter was awake alert and oriented this morning. She has been eating small amounts of her meals, stated that her appetite is not very good, however stated that she was looking forward to her grilled cheese with lunch. Mrs. Baxter also noted that her vision is still not very good, continues tohaving edema peripheral extremities. Notified Dr. Monsivais that Mrs. Baxter was admitted and set up an outpatient appointment with at the patients request. Pending if she is started back on her home insulin pump, requested that her bring the insulin pump in tomorrow if available to review previous rates/ settings. Temp: [37 ??C (98.6 ??F)-37.2 ??C (99 ??F)] Heart Rate: [67-80] Resp: [20-22] BP: (131-161)/(52-60) SpO2: [96 %] Current Regimen Lantus:16 units at QAM at 10AM Novolog 1 unit per 12 grams CHO for meals Novolog for correction at moderate correction scale Recent Glucose Levels Recent Labs Basename 04/24/11 0735 04/24/11 0403 04/24/11 0011 04/23/11 2007 04/23/11 1636 04/23/11 1500 04/23/11 46671 1223 04/23/11 1124 04/23/11 1022 04/23/11 0917 04/23/11 0818 ??? POCGLU 113 177 94 146 200* 177 169 144 149 146 153 161 ASSESSMENT ?? Required an additional 10 units of NL correction yesterday into this morning. ?? Increased basal insulin from 16 to 18 units due at 10AM this morning ?? Continue to follow glycemic trend and adjust insulin as needed ?? Suspect that she may need a higher CHO:insulin ratio - for now continue with 1 unit per 12 gramsCHO Outpatient endocrinology Appointment scheduled with Dr. Wing on May 07, 2011 at 3:30PM. If placed back on the insulin pump then will schedule an appointment with Melisa Sales as well Will continue to follow and adjust insulin as needed. PLAN Lantus:18 units at QAM at 10AM Novolog 1 unit per 12 grams CHO for meals Novolog for correction at moderate correction scale Odalis Ford APRN [facility] Endocrinology Diabetes Management [phone] Pager [phone] This case was discussed with Dr. Shreyas Pollack. 20 min time spent in patient care with 15 counseling, seeing patient, changing orders and discussion with the patient and the primary team as well as nursing. * Felix Guzman - 04/23/2011 4:47 PM EST Inpatient Hospital Medicine - Progress Note Admit Date: 04/19/2011 Hospital Day 4 days Problem List: No resolved problems to display. Active Hospital Problems Diagnoses ??? DKA (diabetic ketoacidoses) ??? Shock Resolved Hospital Problems Diagnoses Date Resolved Active Non-Hospital Problems Diagnoses ??? Hypertension ??? Hyperlipidemia ??? Hypothyroidism ??? Psoriasis ??? Depression ??? Iron deficiency ??? Asthma ??? Microcytic anemia ??? GERD (gastroesophageal reflux disease) ??? Giron's esophagus ??? Diabetic retinopathy associated with type 1 diabetes mellitus ??? Diabetes mellitus 24 Hour Events: Transferred to Hospitalist Service Precedex stopped yesterday On insulin drip until this morning Subjective: Feels exhausted, no CP or SOB Physical Exam: Last Set of Vitals and range of vitals over past 24 hours: Last value Range last 24 hrs Temperature Temp: 37 ??C (98.6 ??F) Temp: [37 ??C (98.6 ??F)-37.4 ??C (99.3 ??F)] Heart Rate Heart Rate: 80 Heart Rate: [77-93] Blood Pressure BP: 161/60 mmHg BP: (109-161)/(44-69) Respiratory Rate Resp: 22 Resp: [14-22] SpO2 SpO2: 96 % SpO2: [92 %-97 %] Intake/Output Summary (Last 24 hours) at 04/23/11 1734 Last data filed at 04/23/11 0438 Gross per 24 hour Intake 383 ml Output 450 ml Net -67 ml Physical Exam Constitutional: She appears well-developed. HENT: Head: Normocephalic and atraumatic. Eyes: EOM are normal. Pupils are equal, round, and reactive to light. Neck: Normal range of motion. Cardiovascular: Normal rate and regular rhythm. Pulmonary/Chest: Effort normal and breath sounds normal. Abdominal: Soft. Bowel sounds are normal. Musculoskeletal: She exhibits edema. All extremities with 3 + edema Skin: Skin is warm. Laboratory (Last 24 Hours): Recent Results (from the past 24 hour(s)) POCT GLUCOSE LAB USE ONLY Component Value Range ??? POC Glucose 156 60 - 199 (mg/dL) POCT GLUCOSE LAB USE ONLY Component Value Range ??? POC Glucose 148 60 - 199 (mg/dL) POCT GLUCOSE LAB USE ONLY Component Value Range ??? POC Glucose 137 60 - 199 (mg/dL) POCT GLUCOSE LAB USE ONLY Component Value Range ??? POC Glucose 139 60 - 199 (mg/dL) POCT GLUCOSE LAB USE ONLY Component Value Range ??? POC Glucose 242 (*) 60 - 199 (mg/dL) POCT GLUCOSE LAB USE ONLY Component Value Range ??? POC Glucose 197 60 - 199 (mg/dL) POCT GLUCOSE LAB USE ONLY Component Value Range ??? POC Glucose 150 60 - 199 (mg/dL) POCT GLUCOSE LAB USE ONLY Component Value Range ??? POC Glucose 121 60 - 199 (mg/dL) POCT GLUCOSE LAB USE ONLY Component Value Range ??? POC Glucose 95 60 - 199 (mg/dL) POCT GLUCOSE LAB USE ONLY Component Value Range ??? POC Glucose 117 60 - 199 (mg/dL) POCT GLUCOSE LAB USE ONLY Component Value Range ??? POC Glucose 159 60 - 199 (mg/dL) POCT GLUCOSE LAB USE ONLY Component Value Range ??? POC Glucose 198 60 - 199 (mg/dL) POCT GLUCOSE LAB USE ONLY Component Value Range ??? POC Glucose 186 60 - 199 (mg/dL) POCT GLUCOSE LAB USE ONLY Component Value Range ??? POC Glucose 180 60 - 199 (mg/dL) POCT GLUCOSE LAB USE ONLY Component Value Range ??? POC Glucose 167 60 - 199 (mg/dL) POCT GLUCOSE LAB USE ONLY Component Value Range ??? POC Glucose 161 60 - 199 (mg/dL) POCT GLUCOSE LAB USE ONLY Component Value Range ??? POC Glucose 153 60 - 199 (mg/dL) POCT GLUCOSE LAB USE ONLY Component Value Range ??? POC Glucose 146 60 - 199 (mg/dL) POCT GLUCOSE LAB USE ONLY Component Value Range ??? POC Glucose 149 60 - 199 (mg/dL) POCT GLUCOSE LAB USE ONLY Component Value Range ??? POC Glucose 144 60 - 199 (mg/dL) POCT GLUCOSE LAB USE ONLY Component Value Range ??? POC Glucose 169 60 - 199 (mg/dL) POCT GLUCOSE LAB USE ONLY Component Value Range ??? POC Glucose 177 60 - 199 (mg/dL) Echocardiogram 04/20/11 1. Left ventricular chamber size, wall thickness, global and segmental systolic function are within normal limits. Ejection fraction is estimated to be 70%.Doppler assessment is consistent with normal left sided filling pressure. Right ventricular chamber size, wall thickness, and systolic function are within normal limits.The estimated pulmonary artery systolic pressure is at least 30 mmHg. 2. The aortic valve is tricuspid.The non coronary cusp of the aortic valve is focally thickened. There is no evidence of aortic valve stenosis.Mild (1+/4+) aortic valve regurgitation is present.A vegetation cannot be ruled out on the aortic valve. 3. The mitral valve appears normal in structure and function.There is trace mitral regurgitation present. 4. See remainder of report for additional findings. 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 female with nursing home DM1, poorly controlled with last HbA1C of 9% who presented to [place] on 04/20/2011 obtunded and not responsive and diagnosed with DKA. She was transferred to the [facility] ICU in shock requiring mutliple pressors (dopamine, norepinephrine, and vasopressin). In the ICU an NG was placed that drained black coffee ground emesis. Her ICU course with significant troponin elevation and cardiology was consulted. Echocardiogram with preserved EF and no WMA. Eventually weaned off pressors and ventilator. Transferred to hospitalist service 04/22/11 with mainactive problems being confusional state. Plan: 1)AMS-Metabolic Encephalopathy/ICU delirium -Mulifactorial, but overall improvimg. Today oriented to person, place and time 2)Respiratory -Stable on RA 3)GI -Prior coffee ground emesis, but no active GIB -Consider EGD before 4)CV -No active chest pain. Troponins trending down -Prior cardiology evaluation felt it was consistent with demand ischemia in the setting of shock -Will consider JOYCELYN to evaluate questionable aortic valve vegetation, but no evidence of active infection 5)ID -Received 3 days of broad spectrum antibiotics in the ICU (vanc/zosyn) but were stopped before transfer. Sputum culture with staph but no clinical evidence of staph pna. 6) DM -Resolved DKA -Followed by DM, transitioning to SC lantus and meal associated aspart. Not using own insulin pump per DM recs 7)Psoriasis -Switch to home dose prednisone (from hydrocortisone IV 50 q8h) 8)Prophylaxis -Pharmacologic VTE prophylaxis held due to concerns of GIB -Continue PPI 9)Misc -Followed by PT -DC IVF -Advance diet to DM diet -Patient 83 kg on admission and currently 101 with tense edema, will start diuresing while monitoring renal function 10)Dispo -Anticipate 3-5 days of hospitalization FELIX GUZMAN MD 04/23/2011 * Kat Mcfarlane RN - 04/23/2011 3:57 PM EST Clinical Gas Worker Transfer Note: Interviewed 04/25/11 S:states that she is feeling better Met with patient & Eyal Garner to introduce role of CRC on Medicine unit. 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 Kat PATE, RN, CRC pager [phone] * Coleman Hernandez, PT - 04/23/2011 1:46 PM EST Physical Therapy Progress Note Patient profile: Pt. is a 55 y.o. y.o. female admitted on 04/19/2011 by Felix Lee MD for DKA. PMH: Psoriatic arthritis Psoriasis Diabetes mellitus I, on insulin pump, poorly controlled Hypothyroidism GERD Hypertension Hyperlipidemia Asthma Severe iron deficiency Social History: Patient lives with their spouse in [place], [place]. Has an 11 year old daughter and 3 grown children. Stairs: patient stated she has couple flights of stairs to enter Baseline Mobility: independent Equipment at home: none per patient Precautions/Special Considerations: fall risk Subjective: ???I have had such diarrhea. I am so tired and weak. I was unconscious for a while.?? Objective: Pt seen for functional mobility training Pain: none reported. Vital Signs: Sp02: 93% on room air HR: 80's Mental Status:Flat affect. Stated she needed to have a bowel movement when she had just came off the bed pulido. Skin: edematous throughout Musculoskeletal: NE Bed Mobility: Supine to Sit: moderate assist Sit to Supine: NE Transfers: Sit to Stand: mod assist Stand to Sit: minimal assist to control descent Gait: Distance: ~60 feet Device used: rolling walker Level of assist: minimal assist to mod assist Gait pattern: short step length, decreased heel to toe progression with shuffle steps, feet gettingoutside of walker, PT had to prevent walker from sliding away from her. Pt. to utilize rolling walker and moderate assist for ambulation with nursing. Balance: Sitting: contact guard to minimal assist on edge of bed Standing: minimal to moderate assist with retropulsive tendency Informed Consent: The patient agrees to and understands the PT treatment plan and goals. Education: patient has been educated on the progression with PT. Pt left sitting in a recliner. Patient status, treatment, and mobility recommendations discussed with nursing. Assessment: Pt with DKA which has resolved presents with impaired cognition, strength, functional mobility, gait and balance. She is at risk to fall given these deficits. Pt now transferred out of ICU to . She is still with a flat affect and not stable on her feet without moderate assist of at least one person. Goals: To be achieved by 04/28/11. 1. Pt. to demonstrate understanding of appropriate exercises. 2. Pt. to perform bed mobility independently. 3. Pt. to perform sit to stand transfers independently utilizing a rolling walker. 4. Pt. to ambulate 150 feet; with a rolling walker, and independent with assistive device. 5. Pt. to ambulate up/down flight of step/stairs with supervision, using one railing. 6. Family or caregiver to demonstrate understanding of therapeutic interventions to support the care of the patient. Plan: Pt to be seen 3-5 times per week for therapy including Bed mobility, Transfers, Stairs, Exercise, Gait , Balance and Discharge planning. Patient agrees with plan as stated above. Equipment needs: defer until closer to DC Discharge Recommendations: Home with services versus short term rehab Occupational Therapy consult Total time spent with patient: 26 minutes functional mobility training. Total timed interventions: 26 minutes COLEMAN HERNANDEZ, PT 04/23/2011 Pager: [phone] Physical Therapy Rehabilitation Department * Odalis Ford, CHIEF TELEPHONE OPERATOR - 04/23/2011 1:40 PM EST Roxann Baxter 1955 [id number] Dr. Nayla Miramontes Follow Up Diabetes Consult Patient Interview Mrs. Baxter was more awake this morning on assessment interactive and answered majority of questions appropriately. She is aware of some confusion this morning and occasionally would respond that shecouldn't remember to detail oriented questions regarding her home insulin pump. She confirmed that she was diagnosed with diabetes in 1972 at the age of 16, presented in diabetic coma. Family history only family member with diabetes granddaughter T1DM, this is also her granddaughter who in July 2010. Mrs. Baxter confirmed that her rates and bolus insulin doses from her pump were essentially unchanged from her last visit with Melisa Sales in 06/2009. She denied any problems with the function of her insulin pump. Confirmed as well that at home she checks her BG levels 3 times a day and usually in the 300's, rarely problems with lows BG levels. She also stated that he always boluses with her pump for meals and is familiar with CHO counting. With her confusion she is not in a stated to restart her insulin pump at this time. Agreed to use SC insulin regimen for the time being and continue to reassess her ability to restart her insulin pump, OR have her follow up again outpatient to restart her pump. She is very interested in following up again with outpatient endocrinology upon discharge. Temp: [37 ??C (98.6 ??F)-37.4 ??C (99.3 ??F)] Heart Rate: [77-93] Resp: [14-20] BP: (109-138)/(42-69) SpO2: [92 %-97 %] Current Regimen Insulin gtt as per T1DM protocol Recent Glucose Levels Recent Labs Basename 04/23/11 1328 04/23/11 1223 04/23/11 1124 04/23/11 1022 04/23/11 0917 04/23/11 0818 04/23/11 24494 0609 04/23/11 0509 04/23/11 0405 04/23/11 0248 04/23/11 0147 ??? POCGLU 169 144 149 146 153 161 167 180 186 198 159 117 ASSESSMENT ?? Stable BG control on insulin gtt ?? Between 2-4AM gtt down to 0.5 - 1 unit/hour ?? Scheduled to start 16 units lantus this morning, 2 hours to titrate off insulin gtt is BG is at goal. ?? Suspect that we will need to increase lantus, will use Q 4 hour correction/coverage to assist with dose finding ?? Started on meal associated NL 1 unit per 12 grams CHO ?? Once off insulin gtt start on moderate correction scale Q4 hours ?? Will continue to monitor BG trend and adjust insulin orders as needed PLAN Lantus:16 units at QAM at 10AM Novolog 1 unit per 12 grams CHO for meals Novolog for correction at moderate correction scale Odalis Ford APRN [facility] Endocrinology Diabetes Management [phone] Pager [phone] This case was discussed with Dr. Shreyas Pollack. 25 min time spent in patient care with 20 counseling, seeing patient, changing orders and discussion with the patient and the primary team as well as nursing. * Sierra Mtz LD - 04/23/2011 12:39 PM EST Nutrition Services - Initial Note Roxann Baxter : 1955 AGE: 55 y.o. Reason for Nutrition Intervention: DKA: HA1C of 9.3 S: Per pt: I know how to carb-count Appetite: poor O: Dx: DKA PMH: Poorly controlled type-1 DM, Giron's esophagus, severe iron deficiency, hyperlipidemia, asthma, hypothyroid, GERD, HTN Diet: Carbohydrate level 2, thickened liquids Height: 167.6 cm Admit Weight: 83.3 kg BMI: 29.7 Current Weight: 101 kg Weight Change: +6.7kg since admit Labs: Results for ROXANN BAXTER ( ) as of 04/23/2011 12:42 Ref. Range 04/22/2011 04:45 Sodium Latest Range: 135-145 mmol/L 141 Potassium Latest Range: 3.5-5.0 mmol/L 4.0 BUN Latest Range: 8-18 mg/dL 19 (H) Creatinine Latest Range: 0.70-1.20 mg/dL 0.75 Estimated GFR Latest Range: >=60 >60 Glucose Lvl Latest Range: 60-199 mg/dL 146 Calcium Latest Range: 8.5-10.5 mg/dL 7.2 (L) Medications: insulin A: Patient reports she is on the insulin pump and has had prior diet education of carbohydrate counting. She reported eating foods such as breads and pasta occasionally, and understands her npegtyorewxg-[id number] ratio. Patient denied need for diet education on foods containing carbohydrates and carbohydrate counting; she reported being a diabetic for a significant amount of time. Patient has a history of high blood sugar, HA1C of 9.3. Patient would like to reconnect with Dionna Polanco as an outpatient to discuss insulin regimen. P: Patient request outpatient with Dionna Polanco to discuss insulin regimen. Patient denies further need for carbohydrate education. Nutrition services to follow weekly thru hospital course unless consulted in the interim. Arline Robles sourcing internship * Trice Spivey, PT - 04/22/2011 8:51 PM EST Physical Therapy Evaluation Patient profile: Pt. is a 55 y.o. y.o. female admitted on 04/19/2011 by Felix Lee MD for DKA. PMH: Psoriatic arthritis Psoriasis Diabetes mellitus I, on insulin pump, poorly controlled Hypothyroidism GERD Hypertension Hyperlipidemia Asthma Severe iron deficiency Social History: Patient lives with their spouse in [place], [place] Stairs: patient stated she has couple flights of stairs to enter Baseline Mobility: independent Equipment at home: none per patient Precautions/Special Considerations: fall risk Subjective: ???I'm so tired. I don't know if I can do anything.?? Objective: Pt seen for evaluation today. Pain: mild on buttocks Vital Signs: Sp02: 91% on room air HR: 80's Mental Status: awake, following commands but a bit confused and with decreased attention; repetitively stating OK during ambulation and help me when sitting edge of bed Skin: edematous throughout Musculoskeletal: ROM: Impaired shoulder flexion to ~100 bilaterally; general limitations from edema throughout but functional Strength: Impaired with general weakness, but functional for mobilization Sensation: appreciates light touch in bilateral feet and hands Bed Mobility: Supine to Sit: moderate assist Sit to Supine: moderate assist Transfers: Sit to Stand: minimal assist to walker support from elevated bed Stand to Sit: minimal assist to control descent Gait: Distance: 60 feet Device used: rolling walker Level of assist: minimal assist Gait pattern: short step length, decreased heel to toe progression with shuffle steps Pt. to utilize rolling walker and minimal assist for ambulation with nursing. Balance: Sitting: contact guard to minimal assist on edge of bed Standing: minimal assist with retropulsive tendency Informed Consent: The patient agrees to and understands the PT treatment plan and goals. Education: patient has been educated on Breathing exercises and Role of therapy and needs reinforcement. Patient status, treatment, and mobility recommendations discussed with nursing. Assessment: Pt with DKA which has resolved presents with impaired cognition, strength, functional mobility, gait and balance. She is at risk to fall given these deficits. Anticipate she will progresswell as delerium clears and medical status stabilizes. The pt would benefit from skilled therapy services to maximize functional independence while in the hospital and to address limitations as notedabove. Goals: To be achieved by 04/28/11. 1. Pt. to demonstrate understanding of appropriate exercises. 2. Pt. to perform bed mobility independently. 3. Pt. to perform sit to stand transfers independently utilizing a rolling walker. 4. Pt. to ambulate 150 feet; with a rolling walker, and independent with assistive device. 5. Pt. to ambulate up/down flight of step/stairs with supervision, using one railing. 6. Family or caregiver to demonstrate understanding of therapeutic interventions to support the care of the patient. Plan: Pt to be seen 3-5 times per week for therapy including Bed mobility, Transfers, Stairs, Exercise, Gait , Balance and Discharge planning. Patient agrees with plan as stated above. Equipment needs: defer until closer to DC Discharge Recommendations: Home with services versus short term rehab Occupational Therapy consult Total time spent with patient: 35 minutes evaluation Total timed interventions: 0 minutes TRICE SPIVEY, PT 04/22/2011 Pager: [phone] Physical Therapy Rehabilitation Department * Winifred Bey, RN - 04/22/2011 7:48 PM EST Accepted patient from ICU. Noted patient on insulin drip at 2.5 units hour, IV 1/2 NS at 75 ml hourthrough 3 L left neck IJ line. Patient asleep but arouses to voice. Blood glucose at 1900 trended down to 138, insulin drip decreased to 2 units hour. VSS, nicholson in situ draining clear yellow urine. Dinner tray ordered, report given to incoming RN, nursing continues to monitor and respond to patient 's needs and condition. * Gayle Coon - 04/22/2011 6:30 PM EST Nursing Note Report called to 1 east. Patient to transfer to room 141-a. Patient transported in bed with all belongings and medications with this RN and two transportation personnel. Current blood sugar and insulin infusion rate relayed to accepting RNTamanna. Patient given call light and bed locked. Informed staff that patient had arrived. * Odalis Ford APRN - 04/22/2011 12:51 PM EST Roxann Baxter 1955 [id number] PCP Dr. Nayla Miramontes Follow Up Diabetes Consult Patient Interview Mrs. Baxter this morning remains in the ICU off precedex, steroids continued Q8 hours of solu-cortef 50mg. Assessment, eyes remained closed through most of interviewed opened only briefly. Responded to nameand answered a few very basic questions, yes that she was on an insulin pump, recognized Melisa Sales's name and Dr. Wing, however would start responding okay only to other questions. At her bedside was a mira from her [place] who was helpful in calming her and noted that she had only been waking up intermittently and as observed answered a few questions, but most of the time sleeping. This morning noted reviewed from last PCP visit and will place in bedside chart. Temp: [36.4 ??C (97.5 ??F)-37.2 ??C (99 ??F)] Heart Rate: [55-86] Resp: [9-24] BP: (84-134)/(48-64) SpO2: [93 %-100 %] Current Regimen Insulin gtt as per protocol Recent Glucose Levels Recent Labs Basename 04/22/11 1153 04/22/11 1027 04/22/11 0849 04/22/11 0743 04/22/11 0615 04/22/11 0506 04/22/11 [id number] 0311 04/22/11 0202 04/22/11 0103 04/21/11 2339 04/21/11 2124 ??? POCGLU 179 205* 188 213* 180 145 130 123 138 153 164 295* ASSESSMENT ?? Continue insulin gtt at this time ?? Basal insulin rate now greater than most recently reported (06/2009- no records from PCP on basalinsulin pump rate) ?? Will reassess this evening to see if she had become more interactive and assess PO intake ?? At that time will determine whether to start low dose basal insulin for titration off insulin gtt the next morning ?? Uncertain how much of a role steroids are playing in her insulin need at this time, she was previous on prednisone 15 mg QD (unknown duration from EDH/CIS appears that she has been on this for herpsoriatic arthritis since June 2010?) ?? Hydrocortisone 50 mg, the prednisone equivalent = 12.5 mg, at home on 15 mg of prednisone ?? If continued on steroids then will likely need her insulin to CHO ratio increased from known home ratio ?? Would like to review her insulin pump settings if/when available. PLAN Insulin gtt as per protocol Odalis Ford APRN [facility] Endocrinology Diabetes Management [phone] Pager [phone] This case was discussed with Dr. Shreyas Pollack. 20 min time spent in patient care with 15 counseling, seeing patient, changing orders and discussion with the patient and the primary team as well as nursing. * Purvi Lucero RN - 04/22/2011 10:45 AM EST Office of Care Management (OCM) / Clinical Gas Worker (CRC) Initial Assessment Reviewed record in eDH. Rounded on patient in CCS rounds this morning. Unable to obtain information for this assessment from the patient due to confusion. I have tried totelephone her Eyal without success. REASON for HOSPITALIZATION: DKA (diabetic ketoacidoses) (Per H&P) HPI Pt is a 55 yo female with a PMHx of DM-1 poorly controlled (last A1c was 9% in January), Giron's esophagus, and gastric ulcer with perforation who presented to OSH obtunded and not responsive. Her states that she has had problems with DKA in the past requiring hospitalization, and this usually follows a flu bug. 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 She had a black emesis that the thought was from drinking coffee. The said that she normally will stay in bed for a couple days and she will eventually get better. When he returned from work the next day the granddaughter said she wasn't acting like herself. He saidthat she wasn't responding to questions appropriately, so he took her to the local ED. PMH/PSH: Psoriatic arthritis Psoriasis Diabetes mellitus I, on insulin pump, poorly controlled Hypothyroidism GERD Hypertension Hyperlipidemia Asthma Severe iron deficiency CURRENT STATUS: Extubated, DKA now cleared, insulin gtt. Delirium likely multifactorial from metabolics and or meds. BASELINE FUNCTIONAL STATUS/ SOCIAL AND FAMILY SUPPORTS: Unknown ADVANCE DIRECTIVES: None on file INSURANCE COVERAGE / FINANCIAL ISSUES: THIERRY Colin CURRENT HOME/COMMUNITY SERVICES/EQUIPMENT: Unknown CRYSTAL FINISHER REFERRAL: CRYSTAL FINISHER assistance available if needs arise. PRIMARY CARE PHYSICIAN: ELLY LONDON APRN @ PCPaddr2@ [phone] POTENTIAL DISCHARGE NEEDS: Anticipate pt will go home with services at discharge. REHAB TEAM CONSULTS: Will need rehab med consults for strength assessment, progression of activity,assistance with ADL's and discharge planning. PLAN: Will continue to monitor progress, follow for continuity of care and assist with discharge planning while on CCS/ISCU status. Purvi Lucero RN OCN Clinical Gas Worker Office of Care Management pager [phone] * Mau Aviles PA - 04/22/2011 9:49 AM EST CCS Daily Progress Note ICU Day #: 3 Team: Danilo beeper # [id number] Patient Description: 55 yo poorly controled Type I DM on insulin pump at home transferred from [facility] with severe DKA on 3 pressors requiring 7 crystalloid with MAPs in the 50's on 04/19/11. 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 Upon arrival here CVC and art line placed, weaned off of one pressor and continued fluid resuscitation with 8 crystalloid (total 15+). Coffee ground emesis from NG noted upon arrival, GI consulted and will scope, but no urgent need due to stability of Hgb. On day 2 patient had persistent pressor requirement with CV gas 54, cardiac enzymes elevated so 1U rbc transfusedand ECHO/cards consult with no WMA and normal EF. Cardiology felt that although MS is known precipitant of DKA in this patient enzyme leak could be accounted for by pressor/demands and no further intervention recommended. Patient was started on stress dose steroids as the patient was on 2 pressors and history of prednisone use for psoriatic arthritis, along with methotrexate. Pressor requirement decreased and patient was off pressors. Overnight day 2 patient sedation being weaned and patient bit through fighter pilot balloon requiring exchange over cook catheter and then briefly back on pressors for sedation. Patient since with closed anion gap, resolved acidosis, off pressors and extubated. Delirium persists and QTc prolonged so precedex continued. Today QTc improved and will start haldol for delirium. Recent Active Issues: Patient Active Problem List Diagnoses Code ??? Diabetes mellitus 250.00A ??? Hypertension 401.9AJ ??? Hyperlipidemia 272.4S ??? Hypothyroidism 244.9AP ??? Psoriasis 696.1U ??? Depression 311L ??? Iron deficiency 275.09B ??? Asthma 493.90AE ??? Microcytic anemia 280.9AB ??? GERD (gastroesophageal reflux disease) 530.81S ??? Giron's esophagus 530.85 ??? Diabetic retinopathy associated with type 1 diabetes mellitus 250.51AG ??? Shock 785.50G ??? 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 escitalopram 40 mg Oral Daily ??? esomeprazole 40 mg Intravenous Q12H NAYANA ??? levothyroxine 75 mcg Intravenous QAM ??? bolus IV fluid Intravenous Once ??? DISCONTD: vancomycin 1.5 g Intravenous Q12H ??? DISCONTD: levothyroxine 35 mcg Intravenous QAM ??? chlorhexidine 15 mL Oral BID ??? hydrocortisone 80 mg Intravenous Q8H NAYANA ??? aspirin 81 mg Oral Daily ??? atorvastatin 20 mg Oral QPM ??? DISCONTD: insulin aspart 3-6 Units Subcutaneous TID WC ??? DISCONTD: levothyroxine 65 mcg Intravenous QAM ??? DISCONTD: piperacillin-tazobactam 3.375 g Intravenous Q6H NAYANA Continuous Infusions: ??? insulin regular drip 1.5 Units/hr (04/22/11 0849) ??? dexmedetomidine (PRECEDEX) infusion Stopped (04/22/11 0833) ??? DISCONTD: dexmedetomidine (PRECEDEX) infusion 0.2 mcg/kg/hr (04/21/11 1800) ??? sodium chloride 0.9% 10 mL/hr (04/20/112027) ??? dextrose 5% and sodium chloride 0.45% 75 mL/hr (04/22/118) ??? DISCONTD: insulin regular drip 2.5 Units/hr (04/21/11 1246) ??? sodium chloride 0.9% Stopped (04/21/11 1249) ??? sodium chloride 0.9% Stopped (04/21/11 1514) ??? DISCONTD: vasopressin (PITRESSIN) infusion (septic shock) Stopped (04/21/11 1100) ??? DISCONTD: fentaNYL Stopped (04/21/11 1000) PRN Meds:.haloperidol lactate, dextrose 50%, insulin regular human, potassium chloride, potassium chloride, potassium chloride, DISCONTD: albuterol, DISCONTD: dextrose 50%, DISCONTD: insulin regular human, DISCONTD: fentaNYL (PF) Review of Systems: patient unable to participate in ROS Vital Signs: Last value Range last 24 hrs Temperature Temp: 36.6 ??C (97.9 ??F) Temp: [36.4 ??C (97.5 ??F)-37.2 ??C (99 ??F)] Heart Rate Heart Rate: 61 Heart Rate: [55-86] Blood Pressure BP: 120/64 mmHg BP: (84-120)/(48-64) Respiratory Rate Resp: 11 Resp: [9-25] SpO2 SpO2: 95 % SpO2: [92 %-100 %] Vent settings: ABG (Arterial Blood Gas) Lab Results Component Value Date pH Art 7.44 04/21/2011 pO2 Art 97 04/21/2011 pCO2 Art 26* 04/21/2011 Physical Exam Gen: sleeping, intermittently shouts out for help HEENT: edematous eyelids, NCAT Lungs: Clear, moving adequate air, CV: rrr, no m/r/g, no JVD/heave Abd: firm, non-tender : deferred, nicholson in place Skin: Pale, no rash or breakdown noted/reported Ext: edematous 2+, pulses present and cap refill <2 Neuro: Awakens to voice, intermittently agitated although does respond, seems to be clearer than yesterday Tubes/lines/drains: RIJ (placed 04/19/11), nicholson Labs: Lab Results Component Value Date/Time WBC 8.4 04/22/11 06:32 AM HGB 9.1* 04/22/11 06:32 AM PLATELET 112* 04/22/11 06:32 AM NA 141 04/22/11 04:45 AM K 4.0 04/22/11 04:45 AM CL 115* 04/22/11 04:45 AM CO2 21* 04/22/11 04:45 AM BUN 19* 04/22/11 04:45 AM CREATININE 0.75 04/22/11 04:45 AM INR 1.5* 04/19/11 08:11 PM PTT 29 04/19/11 08:11 PM ALBUMIN 2.7* 04/20/11 09:01 AM ] Glucose Lab Results Component Value Date Glucose Lvl 146 04/22/2011 LFT's No results found for this basename: alkphos, ast, albumin, bilidir, bilitot, alt, prot Cultures: Sputum- staph aureus Radiology: None new. Assessment: 55 yo poorly controlled diabetic in profound DKA now cleared and extubated with delirium likely multifactorial from metabolics and or meds. Concern for aspiration at OSH and Velma Silvestre tear from retching, patient will need further GI workup prior to discharge. Plan: Neuro: Haldol prn now that QTc narrowed, d/c precedex, room with window familiar voices around, patient is reported to have diabetic retinopathy and blind in right eye, per report by RN patient is easily re-directed today Pulmo: IS q 1 h while awake, NC, Cardio: TTE normal on 04/20/11 with exception of thickening on aortic valve without veg, consider JOYCELYN at some point, was defeered now due to concern over possible Velma Silvestre tear, GI: GI will endoscope prior to discharge for evaluation of previous coffee ground hematemesis, thishad cleared prior to removal of NG tube, PPI bid /Renal: ARIC resolved, monitor e-lytes and continue MIVF until taking PO Endo: appreciate endocrinology recs, will continue IV insulin gtt, Endo following and will need f/uas outpatient, wean steroids, continue levothyroxine IV until transition to po Heme: subq heparin held due to previous concern for UGI bleed, will ambulate, Hgb stable since transfusion ID: d/c abx, was covered broadly for 3 days on vanc/zosyn, grew out staph from sputum but oxygenation not an issue, follow for s/s DISPO: ready for transfer out of ICU to floor Prophylaxis: DVT: held, GI: PPI bid Assessment discussed with Dr. Fuller on CCS rounds who agrees with plan as outlined above. iSria Klein MD - 04/22/2011 7:35 AM EST CCS STAFF PROGRESS/ADMISSION NOTE Critical Care Medicine Author: SIRIA FULLER MD Patient seen and examined on critical care rounds. Roxann Baxter is a 55 y.o. 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 Her states that she has had problems with DKA in the past requiring hospitalization and her labs at [facility] were consistent with DKA. She was transferred to the [facility] ICU (on dopamine, norepinephrine, and vasopressin) for resuscitation. In the ICU an NG was placed that drained black coffee ground emesis. Since she is without further GIB and her Hb is stable at 9.6 g/dl. We will stop her Precedex today. Her labs have normalized. Her I/O's are quite positive so this is likely appropriate for her DKA. We are limited for antipsychotics because of her QTc of 540. There is a question of an aortic vegetation on her TTE but she is not febrile and her WBC is 17K. We are unable to perform a JOYCELYN at this time because of the (remote) possibility of an esophageal tear. We will dc her vancomycin and Zosyn today. Her DKA is resolved. We will transfer her to medicine today. EXAM: Last value Range last 12 hrs Temperature Temp: 36.4 ??C (97.5 ??F) Temp: [36.4 ??C (97.5 ??F)] Heart Rate Heart Rate: 63 Heart Rate: [59-86] Blood Pressure BP: 99/50 mmHg Respiratory Rate Resp: 12 Resp: [11-23] SpO2 SpO2: 97 % SpO2: [93 %-97 %] General Intubated, sedated Heart RRR, no m/g/r Lungs Coarse breath sounds b/l Abdomen Soft, nontender. +/- bowel sounds. Skin No skin lesions noted Extremities Warm, No edema, 2+ peripheral pulses I/O last 3 completed shifts: In: 5872 [I.V.:5769; IV Piggyback:103] Out: 2255 [Urine:2255] Lab Results Component Value Date WBC 8.4 04/22/2011 HGB 9.1* 04/22/2011 HCT 26.8* 04/22/2011 MCV 74.7* 04/22/2011 Lab Results Component Value Date CREATININE 0.75 04/22/2011 BUN 19* 04/22/2011 NA 141 04/22/2011 K 4.0 04/22/2011 CL 115* 04/22/2011 CO2 21* 04/22/2011 Lab Results Component Value Date pH Art 7.44 04/21/2011 pO2 Art 97 04/21/2011 pCO2 Art 26* 04/21/2011 CURRENT MEDS: ??? vancomycin 1.5 g Intravenous Q12H ??? esomeprazole 40 mg Intravenous Q12H NAYANA ??? levothyroxine 75 mcg Intravenous QAM ??? bolus IV fluid Intravenous Once ??? DISCONTD: levothyroxine 35 mcg Intravenous QAM ??? chlorhexidine 15 mL Oral BID ??? hydrocortisone 80 mg Intravenous Q8H NAYANA ??? aspirin 81 mg Oral Daily ??? atorvastatin 20 mg Oral QPM ??? piperacillin-tazobactam 3.375 g Intravenous Q6H NAYANA ??? DISCONTD: insulin aspart 3-6 Units Subcutaneous TID WC ??? DISCONTD: levothyroxine 65 mcg Intravenous QAM IS PATIENT CRITICALLY ILL ? Is there a high potential of sudden, clinically significant, or life threatening deterioration? No Is there a need for direct personal assessment and management to treat/prevent multiple vital organfailure/deterioration? No PATIENT IS CRITICALLY ILL WITH THESE DIAGNOSES BEING MANAGED BY CCS TEAM: Metabolic Acidosis Stupor NA TIME spent on the unit excluding procedures: AMISH FULLER MD 04/22/2011 * Joellen Kingston, PT - 04/21/2011 12:58 PM EST PT referral received. Thank you. Pt nsg, pt is awaiting extubation and now is not a good time for PT. Will check in either later today or tomorrow. Joellen Kingston, PT Pager [phone] * Siria Fuller MD - 04/21/2011 7:36 AM EST CCS STAFF PROGRESS/ADMISSION NOTE Critical Care Medicine Author: SIRIA FULLER MD Patient seen and examined on critical care rounds. Roxann Baxter is a 55 y.o. 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 Her states that she has had problems with DKA in the past requiring hospitalization and her labs at [facility] were consistent with DKA. She was transferred to the [facility] ICU (on dopamine, norepinephrine, and vasopressin) for resuscitation. In the ICU an NG was placed that drained black coffee ground emesis. Since that time she remains intubated without further GIB and her Hb is stable at 9.6 g/dl. She remains on vasopressin for BP support. She is sedated on Precedex and fentanyl today. She becomes agitated off sedation. There is a question of an aortic vegetation on her TTE but she is not febrile and her WBC is 17K. We will extubate her today and stop her sedatives. Her DKA is resolved. EXAM: Last value Range last 12 hrs Temperature Temp: 37.5 ??C (99.5 ??F) Temp: [37.4 ??C (99.3 ??F)-37.5 ??C (99.5 ??F)] Heart Rate Heart Rate: 61 Heart Rate: [61-75] Blood Pressure BP: 110/60 mmHg Respiratory Rate Resp: 12 Resp: [7-20] SpO2 SpO2: 96 % SpO2: [87 %-100 %] General Intubated, sedated Heart RRR, no m/g/r Lungs Coarse breath sounds b/l Abdomen Soft, nontender. +/- bowel sounds. Skin No skin lesions noted Extremities Warm, No edema, 2+ peripheral pulses I/O last 3 completed shifts: In: 60792 [P.O.:10; I.V.:40245; Blood:350; NG/GT:40; IV Piggyback:377] Out: 4405 [Urine:4105; Emesis/NG output:300] Lab Results Component Value Date WBC 16.2* 04/21/2011 HGB 9.6* 04/21/2011 HCT 28.1* 04/21/2011 MCV 74.7* 04/21/2011 Lab Results Component Value Date CREATININE 1.16 04/21/2011 BUN 27* 04/21/2011 NA 138 04/21/2011 K 4.0 04/21/2011 CL 115* 04/21/2011 CO2 18* 04/21/2011 Lab Results Component Value Date pH Art 7.27* 04/20/2011 pO2 Art 106* 04/20/2011 pCO2 Art 29* 04/20/2011 CURRENT MEDS: ??? etomidate 30 mg Intravenous Once ??? succinylcholine 140 mg Intravenous Once ??? chlorhexidine 15 mL Oral BID ??? magnesium sulfate 1 g Intravenous Once ??? potassium chloride 20 mEq Intravenous Q2H ??? hydrocortisone 80 mg Intravenous Q8H NAYANA ??? bolus IV fluid Intravenous Once ??? bolus IV fluid Intravenous Once ??? magnesium sulfate 2 g Intravenous Once ??? aspirin 81 mg Oral Daily ??? atorvastatin 20 mg Oral QPM ??? vancomycin 1,250 mg Intravenous Once ??? potassium phosphate 15 mmol Intravenous Once ??? DISCONTD: hydrocortisone 50 mg Intravenous Q6H NAYANA ??? insulin aspart 3-6 Units Subcutaneous TID WC ??? levothyroxine 65 mcg Intravenous QAM ??? piperacillin-tazobactam 3.375 g Intravenous Q6H NAYANA ??? midazolam IS PATIENT CRITICALLY ILL ? Is there a high potential of sudden, clinically significant, or life threatening deterioration? Yes Is there a need for direct personal assessment and management to treat/prevent multiple vital organfailure/deterioration? Yes PATIENT IS CRITICALLY ILL WITH THESE DIAGNOSES BEING MANAGED BY CCS TEAM: Metabolic Acidosis Stupor TIME spent on the unit excluding procedures: 30 minutes SIRIA FULLER MD 04/21/2011 * Devin Bob MD - 04/21/2011 5:24 AM EST Active Problems: Coffee ground emesis Fe Def anemia - s/p PUD sugery, type u/k (? B-II) - ferritin <10, MCV <70 DKA Respiratory failure PMH: DM1 Gastric ulcer s/p perf and surgical repair - type u/k Barrette's Psoriatic arthritis HTN HL GERD Interval history: No evidence of active GI blood loss Hgb Stable w/ appropriate 1g bump form 1u PRBCs No hematemesis ROS: No fevers, chills, rigors, SOB, CP ??? bolus IV fluid Intravenous Once ??? bolus IV fluid Intravenous Once ??? chlorhexidine 15 mL Oral BID ??? magnesium sulfate 1 g Intravenous Once ??? potassium chloride 20 mEq Intravenous Q2H ??? hydrocortisone 80 mg Intravenous Q8H NAYANA ??? bolus IV fluid Intravenous Once ??? bolus IV fluid Intravenous Once ??? DISCONTD: hydrocortisone 50 mg Intravenous Q6H NAYANA ??? esomeprazole 80 mg Intravenous Once ??? insulin aspart 3-6 Units Subcutaneous TID WC ??? bolus IV fluid Intravenous Once ??? levothyroxine 65 mcg Intravenous QAM ??? piperacillin-tazobactam 3.375 g Intravenous Q6H NAYANA ??? vancomycin 2 g Intravenous Once ??? bolus IV fluid Intravenous Once ??? bolus IV fluid Intravenous Once ??? midazolam 2 mg Intravenous Once ??? midazolam ??? DISCONTD: Pharmacist-Managed Order As Instructed Daily ??? DISCONTD: bolus IV fluid Intravenous Once Temp: [36.5 ??C (97.7 ??F)-37 ??C (98.6 ??F)] Heart Rate: [75-110] Resp: [14-22] BP: (78-111)/(44-60) SpO2: [37 %-100 %] Not seen Recent Labs Basename 04/20/11 0555 04/20/11 0002 04/19/112010 ??? WBC 26.9* 28.8* 35.7* ??? HGB 8.4* 8.9* 9.4* ??? MCV 74.4* 76.8* 79.0 ??? PLATELET 338 395* 515* Recent Labs Basename 04/20/11 0901 ??? ALKPHOS 47 ??? BILIDIR 0.1 ??? BILITOT 0.3 ??? AST 54* ??? ALT 24 ??? PROT 4.8* ??? ALBUMIN 2.7* Recent Labs Basename 04/20/11 0555 04/20/11 0002 04/19/112010 ??? BUN 48* 59* 66* ??? CREATININE 1.86* 2.36* 3.10* Roxann Baxter is a 55 year old female with history of insulin dependent Diabetes Mellitus, currently admitted to the ICU for management of DKA, with note of coffee ground material suctioned from OG tube. Historically Ms. Baxter has a history of prior PUD with perforation (post-surgical anatomy unknown) and documented iron deficiency anemia. Clinically Ms. Baxter does not appear to be experiencing any rapid GI bleeding. In current context of vomiting and acute illness, coffee ground material most likely related to erosive esophagitis, suction trauma, gastritis, and possibly PUD. - EGD prior to discharge - BID PPI IV or PO - If negative, outpt colonoscopy - Please call us after she has transferred to the floor and is preparing for discharge for EGD, or if there is active evidence of ongoing bleeding (hematemesis, new onset melena, persistent decrimentin Hgb, etc) Wilian Guzmán MD Fellow, GI and Hepatology I have reviewed this patient with Dr. Guzmán. I have reviewed the fellow's history during the encounter and I agree with the details as written above. The assessment and plan were formulated in discussion with me at the time of the encounter and I agree with them as documented. Devin Bob MD, MS Crew Leadfloor coverings salesperson Section of Gastroenterology and Hepatology * Tania Almendarez, TOOL ANALYST - 04/21/2011 5:17 AM EST Respiratory Care End of Shift Summary Note Patient received on SIMV/PS RR 14, VT 500ml, PEEP 5cmH20, PS 10 cmH20, Fio2 40%, sedation off, awake not following commands. Fentanyl weaned patient transition to PSV 10 cmH20, PEEP 5cmH20, Fio2 40%,followed by multiple subsequent weans, see table below. Approximately 01:45am analgesic weaned again patient awake, agitated, restless, and consequently bit through her ETT fighter pilot line. Attempted to repair fighter pilot line but the tear was too deep in the patients mouth to repair so the ETT was subsequently replaced without incident, #7.5ETT, 23 cm @ teeth. Patient sedated and placed on full vent support. Left on SIMV/PS RR 12, VT 500ml, PEEP 5cmH20, PS 6 cmH20, Fio2 50%. ETT pulled back 1cm to 22cm @teeth per CXR. We will continue to monitor. 04/20/11 19304/20/11201304/20/11 2030 Ventilator Settings Ventilator Mode SIMV Vol + PS PS (pt awake, switch to psv as ordered) -- Resp. Rate Set 14 -- -- Tidal Volume Set 500 -- -- Set FiO2 40 % -- -- Set PEEP (cm H2O) 5 5 -- PS Above PEEP (cm H2O) 10 10 8 (vt over 900ml, weaned ps) Ventilator Measurements Resp 14 -- -- Tidal Volume Measured Insp. 505 mL -- -- Tidal Volume Measured Exp. 514 -- -- Peak Inspiratory Pressure 35 -- -- Minute Ventilation Total Exhaled (L/min) 7.1 8.6 -- SpO2 98 % 100 % 95 % ETCO2 (mmHg) 21 mmHg 23 mmHg 27 mmHg 04/20/11 2156 04/21/11 0212 04/21/11 0402 Ventilator Settings Ventilator Mode -- SIMV Vol + PS SIMV Vol + PS Resp. Rate Set -- 12 12 Tidal Volume Set -- 500 500 Set FiO2 -- 100 % 50 % Set PEEP (cm H2O) -- 5 5 PS Above PEEP (cm H2O) 6 (decreased per wean) 6 6 Ventilator Measurements Resp -- 12 12 Tidal Volume Measured Insp. -- 505 mL 508 mL Tidal Volume Measured Exp. -- 515 505 Peak Inspiratory Pressure -- -- 34 Minute Ventilation Total Exhaled (L/min) 5.4 6.2 6.1 SpO2 96 % -- 98 % ETCO2 (mmHg) 27 mmHg 25 mmHg 24 mmHg * Delaney Gomes RCP - 04/21/2011 2:18 AM EST Pt bit through fighter pilot balloon on ET tube. Unable the fix, ET tube change same size 7.5 23 at teeth. Pt placed on SIMV/PS 500 X 12 Peep 5 PS 6. 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 Intervention and Outcome: Supportive dialogue and prayers Follow-up: Continue follow up for support Time in Direct Care: 25 minutes Maura Salazar 04/20/2011 * Marry Wilder RCP - 04/20/2011 6:10 PM EST 04/20/11 1600 Ventilator Settings Ventilator Mode SIMV Vol + PS (Pt too sedated for PSV.) Resp. Rate Set 14 Tidal Volume Set 500 Set FiO2 40 % Set PEEP (cm H2O) 5 PS Above PEEP (cm H2O) 10 Flow Rate (L/min) 38.7 Inspiratory Time 0.8 Sec(s) Inspiratory Cycle: Off (%) 10 Rise Time (sec) 0.05 Trigger Flow (numeric) 5 Ventilator Measurements Resp 14 Tidal Volume Measured Insp. 505 mL Tidal Volume Measured Exp. 517 Peak Inspiratory Pressure 36 Mean Airway Pressure (cm H2O) 10 Plateau Pressure (cm H2O) 22 Minute Ventilation Total Exhaled (L/min) 67.1 SpO2 98 % ETCO2 (mmHg) 24 mmHg Tried to change pt to PSV this afternoon, but pt not awake enough. Pt remains on above settings. * Cris Montejo RN - 04/20/2011 5:37 PM EST Patient was very sedated and unarousable . Versed stopped and in several hours she was responsive to pain and eventually responding to commands. Remains on Levophed and vasopressin BP stable levophedweaned to 8 mcg. Insulin drip titrated per protocol. 1 unit blood given no reaction no reaction. Remains on vent suctioning every 3 hours brandon secretions. ER * Lexi Read MD - 04/20/2011 11:17 AM EST [facility] ATTENDING DAILY PROGRESS NOTE Author: LEXI READ MD Date: 04/20/2011 Patient seen and examined on critical care rounds. Active Problems: Diabetic ketoacidosis Acute renal failure - nonoliguric Hypotension requiring pressors and fluids NSTEMI Ventilator dependent respiratory failure - probable aspiration due to vomiting and altered mental status Possible upper GI bleed - question Velma-Silvestre tear due to vomiting Historic Problems: Tobacco abuse - 2 packs per day x12 years (quit in 1984) Psoriatic arthritis - treated with methotrexate 20 mg weekly, followed by [facility] rheumatology Type 1 diabetes mellitus - on insulin pump, poorly controlled, retinopathy (blind OS) Hypothyroidism GERD History of gastric ulcer with perforation History of Giron's esophagus Microcytic anemia - history of iron deficiency Hypertension Hyperlipidemia Asthma Status post section Depression - her 14-year-old granddaughter of leukemia in 2010. Vitamin D deficiency Events/Subjective: Fluid resuscitated overnight with crystalloid and supplemental potassium. Insulin infusion continued. Anion gap closed by this morning. Continued requirement for vasopressin and norepinephrine infusions. Serum lactate remained normal, cardiac troponin elevated to 0.48 with an elev ated CPK to 1576. Ancillary history obtained that the patient either receives frequent corticosteroids or daily corticosteroids for her psoriatic arthritis Physical Examination: Last value Range last 24 hrs Temperature Temp: 36.5 ??C (97.7 ??F) Temp: [36.5 ??C (97.7 ??F)-37 ??C (98.6 ??F)] Heart Rate Heart Rate: 75 Heart Rate: [75-110] Blood Pressure BP: 110/60 mmHg BP: (78-111)/(44-60) Respiratory Rate Resp: 14 Resp: [14-22] SpO2 SpO2: 37 % SpO2: [37 %-100 %] Admit Weight 83.30 kg Intake/Output Trend: She is up 6.8 L since admission. She made 3.4 L of urine yesterday and 280 cc since midnight. The NG tube output was 500 cc yesterday. GEN: Comatose female, endotracheally intubated and mechanically ventilated HEENT: There is some black, bilious material still in the nasogastric tube. No justin blood. CHEST: Clear anteriorly HEART: Regular rate and rhythm, no murmur ABD: soft, nondistended, active bowel sounds EXT: no visible skin lesions, no edema, pulses stronger. Ventilatory Parameters: Mode: SIMV with pressure support of 10 cm; 500 cc x14 per minute FiO2 (%): 100% PEEP (cm H2O): 5 cm ABG (if available): 7.33/36/129 on 40% FiO2 Medications: Sedation: midazolam 3 mg per hour and fentanyl at 100 mcg per hour Vasoactive Infusions: norepinephrine at 15 mcg per minute; vasopressin at 0.04 units per minute Antibiotics: none Steroids: none Anticoagulation: none Relevant Diagnostic Tests: Liver function tests show only a modestly elevated AST of 54 Vancomycin trough was 20 Positive troponin T of 0.48, total CPK is 1576 Urinalysis shows a few granular casts, pyuria, proteinuria, but no ketonuria. Serum glucose readings are now in the 250-300 range on insulin drip. Her anion gap was 13, serum bicarbonate was 17, and her beta hydroxybutyrate was still somewhat elevated at 0.57. Borderline hypokalemia being actively repleted. Serum creatinine was much improved to 1.86; blood urea nitrogen was elevated at 48 Hypophosphatemic (1.5) Serum lactate was 1.6 Central venous oxyhemoglobin saturation (ScvO2) was 54% today (low). Hemoglobin was down only slightly to the mid 8 range from 9.4 on admission. Admission chest radiograph shows good positioning of a left internal jugular catheter and endotracheal tube. There is no pneumothorax or infiltrate. ASSESSMENT, MANAGEMENT, and DECISION MAKING: Ms. Baxter is a 55-year-old woman with type 1 diabetes admitted with renal failure and diabetic ketoacidosis. Endocrine: Given her hypotension and recent steroid use I think that empiric stress dose steroids are warranted. Continue insulin infusion and potassium- containing intravenous fluids. It is still early to transition to Lantus. Gastrointestinal: I have discussed the coffee-ground material in the NG tube with GI attending Dr. Felipe. His opinion is that this could be a Velma-Silvestre tear or some degree of gastritis. He recommends the proton pump infusion. He feels that EGD should be performed at some point, although this does not need to happen urgently unless more significant bleeding is apparent. Renal/metabolic: DKA appears to be coming under control. She is nonoliguric and responding to fluids. I see no urgent reason for renal replacement therapy. We will need to replace the potassium, magnesium, phosphate aggressively. Pulmonary: Mechanical ventilator support. Cardiovascular: She has biochemical evidence of non-ST elevation MS. Anticoagulation with heparin in the context of a recent GI bleed (albeit modest) is not without some risk. We will ask the cardiology service for an echocardiogram and further assistance in management. I would transfuse the patient with one unit of red blood cells to enhance oxygen delivery. Infectious disease: No clear source of infection. Given her tenuous status, I would continue broad-spectrum antibiotics until cultures from admission are negative. Neurologic: Continue sedation as tolerated for ventilator synchrony. Dr. Fuller will be assuming [facility] attending responsibilities tomorrow. IS PATIENT CRITICALLY ILL? Is there a high potential of sudden, clinically significant, or life threatening deterioration? Yes Is there a need for direct personal assessment and management to treat/prevent multiple vital organfailure/deterioration? Yes PATIENT IS CRITICALLY ILL WITH THESE DIAGNOSES BEING MANAGED BY [facility] TEAM: Metabolic Acidosis Hypotension Req Pressors Coma TIME spent on the unit excluding procedures: 45 minutes, including 10 minutes in discussion with consultants * Tania Almendarez, TOOL ANALYST - 04/20/2011 4:18 AM EST Respiratory Care End of Shift Summary Note Patient arrived from OSH orally intubated, unresponsive to verbal commands, placed on SIMV/PS RR 14, VT 500ml, PEEP 5 cmH20, PS 10, Fio2 100%, bilateral breath sounds equal and clear, ETT in good position per CXR, suctioning for scant amount coffee gound/brandon secretions, initial ABG 7.08/01/304/-23.Fio2 weaned t/o the night down to 40%, Spo2 97%, no other vent changes made this shift. Patient progressively more awake, purposeful and following commands, now requiring increasing sedation to maintain vent synchrony. Plan to continue current vent settings. We will continue to monitor. 04/19/11 2046 04/20/11 0327 Ventilator Settings Ventilator Mode -- SIMV Vol + PS Resp. Rate Set -- 14 Tidal Volume Set -- 500 Set FiO2 -- 50 % Set PEEP (cm H2O) -- 5 PS Above PEEP (cm H2O) -- 10 Flow Rate (L/min) -- 40 Ventilator Measurements Resp -- 18 Tidal Volume Measured Insp. -- 502 mL Tidal Volume Measured Exp. -- 555 Peak Inspiratory Pressure -- 35 Tidal Volume Spontaneous (mL) -- 497 Mean Airway Pressure (cm H2O) -- 7 Minute Ventilation Total Exhaled (L/min) -- 8.4 SpO2 -- 96 % ETCO2 (mmHg) -- 27 mmHg Non-Surgical Airway ETT- Cuffed 7.5 mm Placement Date: 04/19/11 Placed By: In place on arrival to facility Airway Device: ETT- Cuffed Size(mm): 7.5 mm Placement Verified By:: Auscultation;Capnometry Secured at (cm) 23 cm -- Measured From Teeth -- * Jorgito Felipe MD - 04/20/2011 12:00 AM EST Gastroenterology and Hepatology Consultation Note Reason for consultation: Coffee Ground Emesis History of Present Illness: Roxann Baxter is a 55 year old female with history of poorly controlledDiabetes Mellitus s/p insulin pump, history of PUD and known iron deficiency anemia who is currently admitted to the ICU for management of DKA, acute renal failure, hypotension requiring pressors andfluids, respiratory failure requiring mechanical ventilation with suspicion for aspiration related t o recurrent vomiting. Coffee ground material has been noted to be aspirated from OG tube, GI is nowconsulted for consideration of endoscopic examination. I am unable to obtain primary history from Ms. Baxter as she is currently intubated and sedated. Per review of prior Rheum notes she has known iron deficiency anemia, not documented what workup has been done for this to date. She does also have a history of perforated gastric ulcer, no mention of what type of surgical repair was performed, specifically whether she has had a B-II which would predispose her to malabsorption of iron. Since admission overnight Ms. Baxter OG is draining mixed bilious/coffee ground material. Her Hgb decreased from 9.4 to 8.4 in context of aggressive fluid resuscitation (+ 4L), she is not passing melena, currently maintained on a PPI gtt. Past Medical History: #. Diabetes mellitus I, on insulin pump, poorly controlled - c/b retinopathy #. Iron deficiency Anemia - ferritin < 10 - MCV < 70 #. History of gastric ulcer with perforation #. Giron's Esophagus #. Psoriatic arthritis #. Psoriasis #. Hypothyroidism #. GERD #. Hypertension #. Hyperlipidemia #. Asthma #. Depression #. S/p Medications: Scheduled Meds: ??? bolus IV fluid Intravenous Once ??? bolus IV fluid Intravenous Once ??? chlorhexidine 15 mL Oral BID ??? magnesium sulfate 1 g Intravenous Once ??? potassium chloride 20 mEq Intravenous Q2H ??? hydrocortisone 80 mg Intravenous Q8H NAYANA ??? DISCONTD: hydrocortisone 50 mg Intravenous Q6H NAYANA ??? esomeprazole 80 mg Intravenous Once ??? insulin aspart 3-6 Units Subcutaneous TID WC ??? bolus IV fluid Intravenous Once ??? levothyroxine 65 mcg Intravenous QAM ??? piperacillin-tazobactam 3.375 g Intravenous Q6H NAYANA ??? vancomycin 2 g Intravenous Once ??? bolus IV fluid Intravenous Once ??? bolus IV fluid Intravenous Once ??? midazolam 2 mg Intravenous Once ??? midazolam ??? DISCONTD: Pharmacist-Managed Order As Instructed Daily ??? DISCONTD: bolus IV fluid Intravenous Once Continuous Infusions: ??? NORepinephrine 15 mcg/min (04/20/11617) ??? lactated ringers Stopped (04/20/11 0502) ??? dextrose 5% and sodium chloride 0.45% with potassium chloride 20 mEq 150 mL/hr (04/20/11644) ??? esomeprazole (NEXIUM) infusion 8 mg/hr (04/20/11 0600) ??? vasopressin (PITRESSIN) infusion (septic shock) 0.04 Units/min (04/20/11617) ??? fentaNYL 100 mcg/hr (04/20/11617) ??? insulin regular drip 10 Units/hr (04/20/11617) ??? sodium chloride 0.9% 10 mL/hr (04/19/11 2200) ??? sodium chloride 0.9% 10 mL/hr (04/19/11 1930) ??? NORepinephrine 20 mcg/min (04/19/11 2100) ??? midazolam 3 mg/hr (04/20/11617) ??? DISCONTD: sodium chloride 0.9% Stopped (04/20/1145) ??? DISCONTD: NORepinephrine 30 mcg/min (04/20/11 0224) PRN Meds:.albuterol, dextrose 50%, insulin regular human, midazolam, fentaNYL (PF) Allergies: Allergies Allergen Reactions ??? Codeine Phos ??? Propoxyphene N-acetaminophen Social History: Per prior notes: Ms. Baxter is . 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 [employer] Tobacco: Quit, 25 pack-year ETOH: Rare social use Illicit: None reported Physical Examination: Vitals: Filed Vitals: 04/20/11 0816 BP: Pulse: Temp: Resp: 14 General: Acutely ill appearing, intubated, sedated HEENT: NCAT, Left IJ Chest: Mechanical breath sounds, no rhonchi Cor: Regular, no murmurs Abd: Protuberant, bowel sounds absent, soft, no wincing or guarding with exam Ext: No edema Labs: Reviewed in EMR Assessment/Recommendation: Roxann Baxter is a 55 year old female with history of insulin dependent Diabetes Mellitus, currently admitted to the ICU for management of DKA, with note of coffee ground material suctioned from OG tube. Historically Ms. Baxter has a history of prior PUD with perforation (post- surgical anatomy unknown) and documented iron deficiency anemia. Clinically Ms. Baxter does not appear to be experiencing any rapid GI bleeding. In current context of vomiting and acute illness, coffee ground material most likely related to erosive esophagitis, suction trauma, gastritis, and possibly PUD. Given findings and history of iron deficiency anemia it would be reasonable to perform anupper endoscopy before discharge although there is no clinical urgency for endoscopy right now and it would be preferable to perform this once other metabolic and hemodynamic derangements are improved. If EGD in unrevealing for a source of iron deficiency anemia, Ms. Baxter would be advised to undergo colonoscopy as well although this could be deferred to the outpatient setting. I have seen and evaluated the patient with Dr Huynh . I have reviewed the resident/fellow's history during the encounter and I agree with the details as written above. My physical examination confirms the above findings. The assessment and plan were formulated in discussion with me at the time of the encounter and I agree with them as documented. No evidence of active bleeding currently with bilious output from NGT and mild drop in hgb without melena in context of aggressive volume rescusitation. Would treat with PPI and will consider elective EGD electively or if she manifests evidence of active bleeding * Lexi Read MD - 04/19/2011 8:28 PM EST [facility] ([facility] ATTENDING DAILY PROGRESS NOTE Author: LEXI READ MD Date: 04/19/2011 Patient seen and examined on critical care rounds. Active Problems: Diabetic ketoacidosis Acute renal failure Hypotension requiring pressors and fluids Ventilator dependent respiratory failure - probable aspiration due to vomiting and altered mental status Possible upper GI bleed - question Velma-Silvestre tear due to vomiting Historic Problems: Tobacco abuse - 2 packs per day x12 years (quit in 1984) Psoriatic arthritis - treated with methotrexate 20 mg weekly, followed by [facility] rheumatology Type 1 diabetes mellitus - on insulin pump, poorly controlled, retinopathy (blind OS) Hypothyroidism GERD History of gastric ulcer with perforation History of Giron's esophagus Microcytic anemia - history of iron deficiency Hypertension Hyperlipidemia Asthma Status post section Depression - her 14-year-old granddaughter of leukemia in 2010. Vitamin D deficiency Events/Subjective: Ms. Baxter is a 55-year-old woman with a history of brittle type 1 diabetes on an insulin pump who presented to [facility] emergency department with a flulike illness. She experienced nausea, vomiting, and diarrhea. 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 She was found to be profoundly hypotensive, minimally responsive, and vomiting. She likely aspirated dueto the finding of vomitus in the nonrebreather mask. She was intubated. She received approximately 7 L of crystalloid resuscitation and was started on an insulin infusion. Her insulin pump was removed. The workup showed acute renal failure with a BUN of 79, a serum creatinine of 4.3, and hyperkalemi a to 6.6. She had a profound metabolic acidosis with a serum bicarbonate of 7. An isolated arterialblood gas prior to intubation showed a pH of 7.01 and a PCO2 of 23. On arrival to our intensive care unit, she was receiving vasopressin and norepinephrine infusions with a borderline MAP. She was comatose off sedatives, although she received a long-acting neuromuscular ron. She had central and arterial lines placed. She was receiving crystalloid and insulin. Review of her medications showed that she was on methotrexate. Physical Examination: Last value Range last 24 hrs Temperature Temp: 37 ??C (98.6 ??F) Temp: [37 ??C (98.6 ??F)] Heart Rate Heart Rate: 108 Heart Rate: [103-108] Blood Pressure BP: 110/60 mmHg BP: (78-111)/(44-60) Respiratory Rate Resp: 16 Resp: [14-19] SpO2 SpO2: 100 % SpO2: [97 %-100 %] Admit Weight Intake/Output Trend: Her urine output was starting to mushroom picker upon arrival. GEN: Comatose female, endotracheally intubated and mechanically ventilated HEENT: Pupils are symmetrically reactive. Conjunctiva are normal. Sclerae are anicteric. She has coffee-ground material coming from the nasogastric tube. CHEST: Clear anteriorly HEART: Regular rate and rhythm, no murmur ABD: soft, nondistended, active bowel sounds EXT: no visible skin lesions, no edema, weak radial pulses. Ventilatory Parameters: Mode: SIMV with pressure support 10 cm FiO2 (%): 100% PEEP (cm H2O): 5 cm ABG (if available): ABG prior to intubation - .04/28/79 on 100% nonrebreather Medications: Sedation: midazolam and fentanyl Vasoactive Infusions: norepinephrine at 25 mcg per minute; vasopressin at 0.04 units per minute Antibiotics: none Steroids: none Anticoagulation: none Relevant Diagnostic Tests: Repeat laboratory studies pending. Hemoglobin was 9.7 at the referring hospital. White blood cell count was 27,000. Stool is guaiac negative. Initial blood glucose was 1119 at the referring hospital. Admission chest radiograph shows good positioning of a left internal jugular catheter and endotracheal tube. There is no pneumothorax or infiltrate. ASSESSMENT, MANAGEMENT, and DECISION MAKING: Ms. Baxter is a 55-year-old woman with type 1 diabetes admitted with renal failure and diabetic ketoacidosis. Endocrine: Aggressive intravenous fluid support. Intravenous insulin infusion. We will be mindful of potassium shifts as her acidosis improves. Endocrinology consult in the morning. I have no historyof recent corticosteroid therapy, so would avoid stress dose steroids at this point. Gastrointestinal: The coffee-ground findings in the nasogastric tube could represent a Velma-Silvestre tear. She does have a use of nonsteroidal anti- inflammatory medications and a history of ulcer with perforation. I think that GI should evaluate her with upper endoscopy. We will start a proton pump inhibitor infusion. Check liver function tests with use of methotrexate. Renal/metabolic: Check serum osmolarity to calculate osmolality gap. I think that we are primarily dealing with diabetic ketoacidosis, but if osmolal gap is found, may need workup for volatile alcohol ingestion. I think that her acidosis will improve with conservative management. I do not think that renal replacement therapy is necessary now. Pulmonary: Mechanical ventilator support. Cardiovascular: Wean pressors as resuscitation continues. I do not think that she is septic. Cycle serum lactate and central venous oxyhemoglobin saturation. Infectious disease: There is no clear evidence of infection, but I would cover with broad-spectrum antibiotics given aspiration. She may be at risk for infection given use of methotrexate. Neurologic: She presently has primitive reflexes, although she remains comatose. I would have a lowthreshold for a head CT scan for any loss of reflexes or seizure activity. Minimized long-acting sedatives. Would use propofol for sedation if hemodynamically permissive. IS PATIENT CRITICALLY ILL? Is there a high potential of sudden, clinically significant, or life threatening deterioration? Yes Is there a need for direct personal assessment and management to treat/prevent multiple vital organfailure/deterioration? Yes PATIENT IS CRITICALLY ILL WITH THESE DIAGNOSES BEING MANAGED BY [facility] TEAM: Metabolic Acidosis Hypotension Req Pressors Coma TIME spent on the unit excluding procedures: 60 minutes documented in this encounter H&P Notes * Jason Lau MD - 04/19/2011 8:55 PM EST Critical Care - Admission Note No resolved problems to display. Active Hospital Problems Diagnoses ??? Shock Resolved Hospital Problems Diagnoses Date Resolved ID: [id number] y.o. Female presents to [facility] with un-responsive and hypotensive concerning for DKA and shock. History of Present Illness: HPI Pt is a 55 yo female with a PMHx of DM-1 poorly controlled (last A1c was 9% in January), Giron's esophagus, and gastric ulcer with perforation who presented to OSH obtunded and not responsive. Her states that she has had problems with DKA in the past requiring hospitalization, and this usually follows a flu bug. 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 She had a black emesis that the thought was from drinking coffee. The said that she normally will stay in bed for a couple days and she will eventually get better. When he returned from work the next day the granddaughter said she wasn't acting like herself. He saidthat she wasn't responding to questions appropriately, so he took her to the local ED. Per report in the ED she was non-responsive, and in the ED she had an emesis while wearing a non-rebreather. She was hypotensive, and her labs were consistent with DKA. She was transferred to the [facility] ICU (on dopamine, levophed, and vasopressin) for resuscitation. In the ICU an NG was placed that drained black coffee ground emesis. Of note, pt had a gastric ulcer with perforation in the past. Her says that this occurred many years ago and that she has been taking the prevacid regularly. 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 Prior To Admission Medications: Prescriptions prior to admission Medication Sig Dispense Refill ??? melatonin 3 mg Tab Take 3 mg by mouth nightly. ??? methotrexate 2.5 mg tablet Take 8 tablets by mouth once a week. 32 tablet 2 ??? ESCITALOPRAM OXALATE (LEXAPRO ORAL) Take 40 mg by mouth daily. ??? insulin lispro (HUMALOG) 100 unit/mL injection Inject subcutaneously. 5-16 units 3 times daily and as needed ??? insulin glargine (LANTUS) 100 unit/mL vial injection Inject 25 Units subcutaneously. Every morning as needed/pump failure ??? methylphenidate (RITALIN) 5 mg tablet Take 15 mg by mouth daily. 15 mg = 3 tabs ??? MULTI-VITAMIN ORAL Take 1 tablet by mouth daily. ??? CIS Free Text Med - Insulin Pump Supplies Infusion Sets, Reservoirs, etc, Misc, q 3 days ??? CIS Free Text Med - BD Logic teststrips as directed, Misc, eight times daily ??? CIS Free Text Med - BD Logic lancets as directed, Top, eight times daily ??? levothyroxine (SYNTHROID) 75 mcg tablet 150 MCG = 1 Tablet(s), PO, Once daily ??? lansoprazole (PREVACID) 30 mg capsule 30mg, PO, QD ??? Flaxseed Oil 1,000 mg Cap ??? Pramlintide (SYMLINPEN 60) 1,500 mcg/1.5 mL injection 60 micrograms, SQ, Three times daily ??? predniSONE (DELTASONE) 5 mg tablet 15 MG = 3 Tablet(s) PO Once daily ??? lisinopril (PRINIVIL;ZESTRIL) 20 mg tablet 20 MG = 1 Tablet(s), PO, Once daily ??? folic acid (FOLVITE) 1 mg tablet 1 MG = 1 Tablet(s), PO, Once daily Current Medications: Current facility-administered medications:NORepinephrine (LEVOPHED) 4 mg/250 mL infusion, , , , , Last Rate: 112.5 mL/hr (04/19/111929), Last Dose: 30 mcg/min at 04/19/111929; esomeprazole (NEXIUM)80 mg in sodium chloride 0.9% 160 mL infusion, 8 mg/hr, Intravenous, Continuous, Jason Lau MD; esomeprazole (NEXIUM) injection 80 mg, 80 mg, Intravenous, Once, Jason Lau MD, Last Dose: 80 mg at 04/19/11 2030 vasopressin (PITRESSIN) 50 Units in sodium chloride 0.9% 100 mL infusion, 0.04 Units/min, Intravenous, Continuous, Jason Lau MD, Last Rate: 4.8 mL/hr (04/19/111899), Last Dose: 0.04 Units/min at 04/19/111899; sodium chloride 0.9% infusion , 150 mL/hr, Intravenous, Continuous, Jason Lau MD, Last Rate: 150 mL/hr (04/19/111929), Last Dose: 150 mL/hr at 04/19/111929 albuterol (PROVENTIL HFA;VENTOLIN HFA) 90 mcg/Actuation inhaler 6 puff, 6 puff, Inhalation, Q2H PRN, Jason Lau MD; fentaNYL 2500mcg/50mL infusion , 0- 250 mcg/hr, Intravenous, Continuous, Jason Lau MD; dextrose 50% solution 25-50 mL, 12.5-25 g, Intravenous, Per Insulin Protocol, Jason Lau MD; insulin aspart (NOVOLOG) PEN injection 3-6 Units, 3-6 Units, Subcutaneous, TID WC,Jason Lau MD insulin regular human (HUMULIN;NOVOLIN) 150 Units in sodium chloride 0.9% 150 mL infusion, 0.5-8 Units/hr, Intravenous, Change bag every evening, Jason Lau MD, Last Rate: 6.5 mL/hr (04/19/112029), Last Dose: 6.5 Units/hr at 04/19/112029; insulin regular human (humuLIN;novoLIN) 150 Units in sodium chloride 0.9%150 mL BOLUS 0-8 Units, 0-8 Units, Intravenous, Per Insulin Protocol, Minna Lau MD, Last Dose: 8 Units at 04/19/112043 sodium chloride 0.9% 1,000 mL IV bolus, , Intravenous, Once, Jason Lau MD; levothyroxine (SYNTHROID) injection 65 mcg, 65 mcg, Intravenous, QAM, Jason Lau MD; sodium chloride 0.9% infusion , 10 mL/hr, Intravenous, Continuous, Jason Lau MD; sodium chloride 0.9% infusion , 10 mL/hr, Intravenous, Continuous, Jason Lau MD, Last Rate: 10 mL/hr (04/19/111929), Last Dose: 10 mL/hr at 04/19/111929 Allergies: Allergies Allergen Reactions ??? Codeine Phos ??? Propoxyphene N-acetaminophen Family History: No family history on file. Social History and Habits: History Social History ??? Marital Status: Spouse Name: N/A Number of Children: N/A ??? Years of Education: N/A Occupational History ??? Not on file. Social History Main Topics ??? Smoking status: Former Smoker ??? Smokeless tobacco: Not on file ??? Alcohol Use: Not on file ??? Drug Use: Not on file ??? Sexually Active: Not on file Other Topics Concern ??? Not on file Social History Narrative ??? No narrative on file Immunizations: Immunization History Administered Date(s) Administered ??? Influenza Whole 02/17/2009 Physical Exam: Last Set of Vitals and range of vitals over past 24 hours: Last value Range last 24 hrs Temperature Temp: 37 ??C (98.6 ??F) Temp: [37 ??C (98.6 ??F)] Heart Rate Heart Rate: 103 Heart Rate: [103-108] Blood Pressure BP: 110/60 mmHg BP: (78-111)/(44-60) Respiratory Rate Resp: 16 Resp: [14-19] SpO2 SpO2: 100 % SpO2: [97 %-100 %] Physical Exam Gen: Intubated and not responding to commands. HEENT: Sclera non-icteric, PERRL CV: RRR, no m/r/g RESP: CTAB, no wheezing ABD: Soft, normoactive bowel sounds EXT: Cool extremities, pulses palpable Laboratory (Last 24 Hours): Recent Results (from the past 24 hour(s)) LACTIC ACID, PLASMA Component Value Range ??? Lactate 0.8 0.5 - 2.2 (mmol/L) PROTHROMBIN TIME Component Value Range ??? PT 18.5 (*) 12.3 - 14.7 (sec) ??? INR 1.5 (*) 0.9 - 1.1 APTT Component Value Range ??? PTT 29 25 - 35 (sec) Assessment: 55 yo female with a history of poorly controlled DM-1 and gastric ulcers, who is transferred to theICU with hypotension and coffee ground emesis. The likely etiology of her presentation is DKA, and the coffee ground emesis is likely 2/2 hx of ulcers. Plan: Neuro: Stable, non responsive to commands on no sedation. This is possibly due to her highly acidotic state, but if after correction she does not become more alert, we will consider getting a head CT. - Fentanyl as needed for sedation - Midazolam prn as needed for agitation CV: hypotensive shock, transported on three pressors (levophed, Dopa and JOURNEY[employer]LECT[employer]ICIANS). We have been able to wean off Dopa. - Levophed gtt - J[employer] gtt - Wean as tolerated - Aggressive fluid resuscitation Pulm: Ventilated on SIMV/500/14/5 on 100%, currently stable, will wean as tolerated FEN/GI: Acute respiratory failure: MIVF NS 150 cc per hour, with Frequent LR boluses. We will transition to D5 1/2 with 20 k once her sugars get below 250. - Spoke with GI, they will come by tomorrow and examine her. If she has more coffee ground emesis or justin blood from NGT, will need urgent scope. Will monitor for now. - Nexium gtt (with 80 mg bolus) - q6hr lytes, lactate : Nicholson placed Endo: Blood sugars >600. - Insulin gtt ID: Vanc and zosyn started for possible aspiration pneumonia Heme: Hgb 9.9 at OSH, anticipate drop given large volume resuscitation. Does not appear to be actively bleeding. - Q6h CBC Access: PIVs, place central and arterial line Admit to ICU Red JASON LAU MD 04/19/2011 documented in this encounter Procedure Notes * Provider, Scanning - 04/30/2011 2:15 PM ESTAssociated Order(s): SCAN DOC: LAB * Provider, Scanning - 04/30/2011 2:15 PM ESTAssociated Order(s): SCAN DOC: COMPUTER LAB ASSISTANT * Cristy Plaza MD - 04/21/2011 2:32 AM ESTAssociated Order(s): INTUBATION Intubation Procedure Note Reason for Intubation: ?? 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 Location of Procedure: ICU [facility]. Risks and Benefits: The risks and benefits of this procedure were not reviewed and informed consent was not obtained obtained. Time Out: Prior to the start of the procedure, the patient's identity, intended procedure, site/side, correct patient positioning and presence of the site martina was confirmed as applicable. The medical history and chart were reviewed to rule out potential contraindications to the planned procedure. This was an emergent procedure. Intubation Assessment: ?? Comments: endotracheal tube exchange only. Additional Intubation Assessment: Preoxygenation was administered. Laryngoscope Blade and Size: N/A The endotracheal tube size was 7.5 mm. The tube was cuffed. Common Adjuvant Equipment: A stylet was not used. An oral airway was not used. A nasal airway was not used. Additional Adjuvant Equipment: Type scope: none [place] Intubation Catheter: no Combitube:no Intubating Laryngeal Mask Airway:none Laryngeal Mask Airway: none Other: Cook catheter Intubation Method: other: endotracheal tube exchange IV Medications: ?? 30 mg Etomidate ?? 140 mg Succinycholine Other Medications: ?? Other: None Insertion Attempts: There was 1 attempt. Visualization of Vocal Cords: A N/A view of the vocal cords was observed. Confirmation of Tube Placement: ?? Chest X-ray ordered ?? end tidal CO2 ?? bilateral breath sounds Status Post Intubation: ?? The patient was hemodynamically stable. ?? The procedure was uncomplicated and atraumatic. Tube secured (at lip or nares): 23 cm Other post intubation status comments: N/A BREANN TRAMMELL MD 04/21/2011 I was the attending physician supervising the resident in the above care and I was not present for the metcalf components of the procedure. * Lexi Read MD - 04/19/2011 7:51 PM ESTProcedure(s): INSERT ARTERIAL LINE Pre-Procedure Diagnose(s): DKA (diabetic ketoacidoses); Shock circulatory Arterial Line Placement Procedure Note Indication for Procedure: Arterial line was placed for invasive blood pressure monitoring, arterialblood gases, access and blood sampling for laboratory test. Location of Procedure: Critical Care. Risks and Benefits: The risks and benefits of this procedure were not reviewed and informed consentwas obtained due to emergent nature of the procedure. Time Out: Prior to the start of the procedure, the patient's identity, intended procedure, site/side, correct patient positioning and presence of the site martina was confirmed as applicable. The medical history and chart were reviewed to rule out potential contraindications to the planned procedure. Hand Hygiene: The mainspring strip inspector did perform hand hygiene prior to arterial line insertion. Procedure Prep: Sterile draping was applied. Skin was prepped with chlorhexidine. 2 ml of 1% Lidocaine was used for local anesthesia. Full barrier precautions were used. Procedure Details: A 20 gauge, 12 cm catheter was placed in the right femoral artery and secured with suture. Tegaderm was applied. Ultrasound was used for guidance. Guide wire was used in this procedure. The guide wire had a diameter of .018 inches. There were 2 attempts. Findings: There were no procedure complications. Blood was drawn with ease. Good wave form. Procedure Comments: Pulmonary/CCM Attending For purposes of billing, I was present for the entirety of this uncomplicated procedure. * Mau vAiles PA - 04/19/2011 7:35 PM ESTAssociated Order(s): CENTRAL LINE Procedure(s): CENTRAL LINE Pre-Procedure Diagnose(s): Shock Post-Procedure Diagnose(s): Shock Central Line Placement Procedure Note Indication for Central Line Insertion: New Catheter: volume replacement, access, monitoring, medication administration and sepsis This insertion was not to replace a malfunctioning central line. This insertion was not due to a suspected central line associated infection. [facility] of [facility] Risks and Benefits: The risks and benefits of this procedure were not reviewed and informed consent was not obtained. Time Out: Prior to the start of the procedure, the patient's identity, intended procedure, site/side, correctpatient positioning and presence of the site martina was confirmed as applicable. The medical history and chart were reviewed to rule out potential contraindications to the planned procedure. Hand Hygiene: The mainspring strip inspector did perform hand hygiene prior to central line insertion. Procedure Technique: Skin was prepped with chlorhexidine . Skin preparation agent was completely dry at the time of first skin puncture. The following barrier precautions were used:large sterile drape, mask/eye shield, large sterile gown, sterile gloves and cap. 5 ml of 1% Lidocaine was used for skin wheal. Ultrasound was used for guidance. Procedure Details: A 22 gauge finder needle was used to identify the vein. An 18 Ga. X 2.5 inch Catheter needle was placed in vein after blood return identified. Guided by a 0.018 inch diameter guide wire, a 12 Fr., 3 lumen, 20 cm catheter was inserted using the Seldinger Technique. Additional Catheter Details: Catheter type: antimicrobial coated. Catheter was a non tunneled. Insertion site was left, jugular (internal). There was 2 attempt(s). The catheter was sutured to the skin at 19 cm. The central line was placed over a guidewire. Sterile Dressing: Tegaderm Findings: Patient tolerated procedure well., Blood returned appropriately. Complications: No Complications. Post Procedure: Chest x-ray ordered. Procedure Comments: documented in this encounter Miscellaneous Notes * Miscellaneous - Provider, Joel - 04/30/2011 2:15 PM EST * Miscellaneous - Provider, Joel - 04/30/2011 2:15 PM EST * Discharge Summary - Haseeb Virk MD - 04/29/2011 1:19 PM EST Inpatient Hospital Medicine - Discharge Summary Patient Name: Roxann Baxter Patient Age: 55 y.o. Birthdate: 1955 Admit date: 04/19/2011 Discharge date and time: 04/29/2011 Attending Physician: Haseeb Virk MD Follow-up Recommendations for Providers: -Follow up to ensure continued improvement in terms of deconditioning. -Follow up blood glucose control. Endocrinology will also follow up diabetes management. -Lisinopril was decreased from 20 to 10 mg upon discharge. Please check blood pressure and basic metabolic panel at follow up, and adjust lisinopril if indicated. -GI to arrange colonoscopy. -Continue twice daily PPI for 8 weeks, then once daily thereafter. Discharge Diagnoses (Hospital Problems) and Secondary Diagnoses (Chronic Problems): Active Hospital Problems Diagnoses ??? DKA (diabetic ketoacidoses) ??? Reflux esophagitis ??? Gastritis ??? Anasarca Resolved Hospital Problems Diagnoses Date Resolved ??? Shock 04/25/2011 Active Non-Hospital Problems Diagnoses ??? Hypertension ??? Hyperlipidemia ??? Hypothyroidism ??? Psoriasis ??? Depression ??? Iron deficiency ??? Asthma ??? Microcytic anemia ??? GERD (gastroesophageal reflux disease) ??? Giron's esophagus ??? Diabetic retinopathy associated with type 1 diabetes mellitus ??? Diabetes mellitus Dx replacement utility run on deactivated IMO Dx [id number] Operations/Major Procedures: Operations: UPPER GI ENDOSCOPY History of Presentation: Pt is a 55 yo female with a PMHx of DM-1 poorly controlled (last A1c was 9% in January), Giron's esophagus, and gastric ulcer with perforation who presented to OSH obtunded and not responsive. Her states that she has had problems with DKA in the past requiring hospitalization, and this usually follows a flu bug. He says that yesterday she came home from watching the neighbor's kids (wh o had been suffering from a stomach bug) and she states that she felt like she was coming down with something. She had a black emesis that the thought was from drinking coffee. The said that she normally will stay in bed for a couple days and she will eventually get better. When he returned from work the next day the granddaughter said she wasn't acting like herself. He said that she wasn't responding to questions appropriately, so he took her to the local ED. Per report in the ED she was non-responsive, and in the ED she had an emesis while wearing a non-rebreather. She was hypotensive, and her labs were consistent with DKA. She was transferred to the [facility] ICU (on dopamine, levophed, and vasopressin) for resuscitation. In the ICU an NG was placed that drained black coffee ground emesis. Of note, pt had a gastric ulcer with perforation in the past. Her says that this occurred many years ago and that she has been taking the prevacid regularly. Hospital Course: (from [facility]) Initially admitted to the ICU from [facility] with severe DKA on 3 pressors requiring 7 L crystalloid with MAPs in the 50's on 04/19/11. Upon arrival to the ICU an art line placed, weaned off of one pressorand continued fluid resuscitation with 8 L crystalloid (total 15+). Coffee ground emesis from NG noted upon arrival, GI deferred EGD for later during her hospital stay. Patient received empiric treatm ent for 3 days during her ICU stay. Her hospital course complicated with persistent pressor requirements and elevated cardiac enzymes. Cardiology was consulted and echo with no WMA and normal EF. Cardiology felt it was secondary to demand ischemia and no further intervention was recommended. Stressdose steroid were also given due to her history of chronic steroid use. Eventually vasopressor requirements decreased and patient was weaned off them. She was transferred to the hospitalist service with resolved DKA and respiratory failure but in confusional state. Diabetes team followed her and initially recommended using long acting insulin (lantus) and associated meal coverage with aspart instead of her home pump, but she ws eventually transitioned back to her pump. Confusional state resolved which was felt secondary to acute illness and ICU stay. Due to her fluid overload state (anasarca)from massive resuscitation, IV furosemide was given with excellent diuresis and resolution of edema. EGD was done and showed mild gastritis with severe esophagitis and GI recommended PPI bid for 8 weeks and daily thereafter. Aspirin was discontinued. GI also recommended that she have colonoscopy for completeness (given her iron deficiency anemia). She refused inpatient colonoscopy and it will be arranged on an outpatient basis by GI. PT was consulted for deconditioning. She ambulated well with a walker and was able to go up a flight of stairs. She will have VNA and home PT. Patient is being discharged in good condition with Endocrinology follow-up. Important Studies and Lab Data: Labs: Lab Results Component Value Date WBC 8.5 04/29/2011 HGB 9.8* 04/29/2011 HCT 30.7* 04/29/2011 PLATELET 315 04/29/2011 ALT 24 04/20/2011 AST 54* 04/20/2011 NA 137 04/29/2011 K 4.1 04/29/2011 CL 98 04/29/2011 CREATININE 0.86 04/29/2011 BUN 12 04/29/2011 CO2 34* 04/29/2011 TSH 0.28 02/27/2010 INR 1.5* 04/19/2011 GLUCFASTING 180* 04/29/2011 HA1C 9.3* 04/21/2011 MICROALBUR 392.0 04/21/2011 Studies: Echocardiogram 04/20/11 1. Left ventricular chamber size, wall thickness, global and segmental systolic function are within normal limits. Ejection fraction is estimated to be 70%.Doppler assessment is consistent with normal left sided filling pressure. Right ventricular chamber size, wall thickness, and systolic function are within normal limits.The estimated pulmonary artery systolic pressure is at least 30 mmHg. 2. The aortic valve is tricuspid.The non coronary cusp of the aortic valve is focally thickened. There is no evidence of aortic valve stenosis.Mild (1+/4+) aortic valve regurgitation is present.A vegetation cannot be ruled out on the aortic valve. 3. The mitral valve appears normal in structure and function.There is trace mitral regurgitation present. 4. See remainder of report for additional findings. EGD 04/25/11 Impression: - Hiatal hernia from 32-39. - Widely patent Schatzki ring. - LA Grade C reflux esophagitis. - Multiple gastric polyps consistent with fundic gland polyps - Mild gastritis with linear erosions consistent with NG trauma. - Normal examined duodenum. Recommendation: - Return patient to hospital cyr for ongoing care. - BID PPI x 8 weeks then daily. CXR 04/25/11 Resolved pulmonary airspace opacity, [id number] bilateral effusion seen posteriorly. Pending Studies and Lab Data: No current labs Discharge Conditions/Prognosis: Remains fairly deconditioned but improving steadily. Otherwise in good condition. Discharge to: Home. Discharge Medications: Current Discharge Medication List Continued medications with revised dosing Details insulin glargine (LANTUS) 18 Units Inject 18 Units subcutaneously daily. 1 vial = 10ml = 1,000 units Qty: 10 mL Refills: 5 pramlintide (SYMLIN) 60 mcg Inject 60 mcg subcutaneously 3 times daily (before meals). Qty: 5.4 mL Refills: 3 lansoprazole (PREVACID) 30 mg Take 30 mg by mouth 2 times daily (before meals). Take 30 minutes before breakfast and dinner. Qty: 120 capsule Refills: 0 lisinopril (PRINIVIL;ZESTRIL) 10 mg Take 10 mg by mouth daily. Qty: Refills: methotrexate 15 mg Take 15 mg by mouth once a week. Qty: Refills: Continued medications, unchanged Details melatonin 3 mg Take 3 mg by mouth nightly. Qty: Refills: ESCITALOPRAM OXALATE (LEXAPRO ORAL) 40 mg Take 40 mg by mouth daily. Qty: Refills: insulin lispro (HUMALOG) 100 unit/mL injection Inject subcutaneously. 5-16 units 3 times daily and as needed Qty: Refills: methylphenidate (RITALIN) 15 mg Take 15 mg by mouth daily. 15 mg = 3 tabs Qty: Refills: MULTI-VITAMIN ORAL 1 tablet Take 1 tablet by mouth daily. Qty: Refills: !! CIS Free Text Med - Insulin Pump Supplies Infusion Sets, Reservoirs, etc, Misc, q 3 days Qty: Refills: Comments: per visit 08/22/03 !! CIS Free Text Med - BD Logic teststrips as directed, [facility], eight times daily Qty: Refills: Comments: Approved for 1 yr by maribell-until 01/08/07 !! CIS Free Text Med - BD Logic lancets as directed, [facility], eight times daily Qty: Refills: levothyroxine (SYNTHROID) 75 mcg tablet 150 MCG = 1 Tablet(s), PO, Once daily Qty: Refills: Flaxseed Oil 1,000 mg Cap Qty: Refills: folic acid (FOLVITE) 1 mg tablet 1 MG = 1 Tablet(s), PO, Once daily Qty: Refills: !! - Potential duplicate medications found. Please discuss with provider. Medications STOPPED predniSONE (DELTASONE) 5 mg tablet Updated Allergies/ADRs: Allergies Allergen Reactions ??? Codeine Phos ??? Propoxyphene N-acetaminophen Instructions Given to Patient at Discharge: Provider Instructions Instruction after leaving the hospital Why you were hospitalized: Diabetic Ketoacidosis (DKA). Call your doctor or seek medical attention if you develop the following: uncontrolled blood sugars,fever, chest pain, shortness of breath, black or bloody stools, or any other concerns. Activity level: gradually increase activity back to usual under the guidance of home Physical Therapy. Diet: diabetic diet as previously instructed. Driving: not recommended at least until you are evaluated in follow up. Shower/Bath: no new restrictions Wound Care: n/a Home Oxygen therapy: n/a Follow-Up Appointments Please contact your primary care provider to arrange follow up within 2 weeks. Also see Future Appointments under Your To Do List for Endocrinology and Rheumatology appointments. General Instructions Roxann Baxter [id number] 1955 Diabetes Care Instructions Follow up with: Melisa Sales on 05/06/2011 at 11AM Assistant Golf Professional area [address]C Dr. Wing on May 07 at 3:30PM Assistant Golf Professional area 5C Subcutaneous Insulin Pump Instructions Basal (total daily 18.3 units of basal) Midnight 0.6 units 4 AM 0.8 units 8 AM 0.9 units 4 PM 0.5 units 7 PM 0.8 units Bolus Correction 1 unit for 25 points greater than 100-125 mg/dL Meal associated bolus 1 unit per 12 grams CHO If insulin pump is discontinued for any reason, Then... Take Lantus 18 units (this should be given every 24 hours until your pump is restarted) Humalog 1 unit per 12 grams Carbohydrate Humalog for correction per scale at meals and bedtime Blood Sugar NOVOLOG DOSE 140-160 ADD 1 unit 161-200 ADD 2 units 201-240 ADD 4 units >240 ADD 8 units Sick Days When you are sick it can be very challenging to control your blood sugars. This includes having a cold, the flu, a fever, stomach bug, or other infection. To help manage your blood sugars and stay well here are some tips: Increase (non-caffeine) fluids drink at least 8 ounces an hour Try to eat a normal meal plan (if not able to see foods below) If you have high Blood sugars (consistently >240 mg/dL): Check for ketones If positive call your primary care doctor If you can not eat your meals while you are sick it is still important that you get about 50grams of carbohydrates every 4 hours. Foods that can be helpful and that you should have in hand include the following: ?? Sports drinks ?? Regular gelatin ?? Canned soup ?? Juice ?? Regular soft drinks ?? Crackers ?? Instant cooked cereals ?? Applesauce ?? Instant pudding Treatment of Low Blood Sugar (Hypoglycemia) If your BG is lower than 80, you are likely to feel shaky, sweaty and lightheaded. This is a signalthat your body needs more sugar. Quickly eat or drink a small serving of something sweet, such as: ?? 4 ounces fruit juice or regular (not diet) soda ?? 6 lifesavers ?? 4-8 glucose tablets (~15-30 gm of glucose) ?? If your BG is very low <50, you can double the amount above or take 30 gm of glucose gel/tablets. ?? Sit and rest and you should feel better within a few minutes. Once you are feeling better, try to determine why your BG was so low. Common causes of hypoglycemia include skipping a meal, lots of exercise, too much insulin or any combination of these things. Understanding the cause my help you toavoid another low BG in the future. Call your doctor for blood sugars under 80 or over 300 twice in one day. Odalis Ford [facility] Section of Endocrinology Diabetes Management Future Appointments and Orders Future Appointments: Provider: Department: Dept Phone: Center: 05/05/2011 10:05 AM Ann Fleming OD [facility] [phone] [facility] Joint Appt Tech One Ophthalmology [facility] [phone] [facility] 05/06/2011 11:00 AM Melisa Sales RN [facility] [phone] [facility] 05/07/2011 3:30 PM Iron Wing MD [facility] [phone] [facility] 05/19/2011 3:15 PM Darryl Burgos MD [facility]umat[facility] [phone] [facility] Joint Appt Rheumatology Nurse Res [facility] [phone] [facility] Future Orders Please Complete By Expires Referral to Home Health [[id number] CPT(R)] Process Instructions: Scheduling Instructions: Comments: DOCUMENTATION FOR VNA SERVICES (INCLUDING THOSE PATIENTS WITH MEDICARE COVERAGE REQUIRING HOME VNA SERVICES AND/OR HOSPICE SERVICES) PATIENT'S LOCATION: Roxann Baxter [address] [place] [phone] (home) Election Watcher's Name: self & In discussion with the attending physician, it is certified that this patient is under their care and that they, or a nurse practitioner, clinical nurse specialist or physician's computer lab assistant who is working directly with them, had a face to face encounter that meets the physician face to face encounter requirements with this patient on 04/29/2011 The encounter with the patient was in whole, or in part, for the following medical condition, whichis the primary reason for home health care services: DKA, fluid overload In discussion with the provider, it is certified that, based on their findings, the following services are medically necessary for home health services. To provide the following care/treatments with the clinical findings supporting the need for services as follows: HOME CARE ORDERS: Nursing( x) PT(x ) OT (x ) MARGARINE MAKER ( ) FILLING SEPARATOR ( ) CRYSTAL FINISHER ( ) Hospice ( ) Specific orders: RN: Please assess cardiopulmonary status, medicationeffectiveness and management, nutrition and elimination. Check pulse oximetry every visit. Assess respiratory status and ensure patient on appropriate oxygen at home. Please assess and educate for diabetes education. PT: Continue rehab for balance, gait, endurance and functional mobility. Home safety evaluation andeducation. OT: Continued assessment of functional status and mobility, endurance and energy conservation. Please assess and provide for any other further needs. All A agencies which cover the area of patient's residence have been reviewed, either verbally constantine writing, and patient/family have chosen the home health care agency as follows for home services: HOME HEALTH CARE AGENCY: [facility] [employer]. PHONE: [phone] FAX: [phone] Please note that any additional orders needs or changes will need to be obtained from this patient's PCP: ELLY LONDON APRN Questions: Responses: Agency name and contact information [facility] Patient location post discharge home What services are requested Registered Nurse Physical Therapy Occupational Therapy Start date 04/29/2011 Responsible MD post discharge contact info PCP Provider Contact Information: Haseeb Virk MD [phone] For questions regarding this document or issues relating to this hospitalization on the Medical Service, please contact your inpatient physician through the [facility] Health Insurance Sales Agent . Issues afterhours and on weekends will be handled by the Hospitalist staff on-call. Signed: HASEEB VIRK MD 04/29/2011 * Plan of Care - Ang Thakkar RN - 04/29/2011 3:54 AM EST Problem: Diabetes, Type 1 (Adult, Obstetric) Goal: Prevent/Manage Potential Problems Based on my scope of practice, I assessed for signs and symptoms of potential problems that could be present as documented. Pt FSBS checked Q4 hours. Pt hyperglycemic this night, Insulin given per scale. * Plan of Care - Lucero Freeman RN - 04/28/2011 11:12 AM EST Problem: Trauma/Injury Risk (Adult, Obstetric) Intervention: Trauma/Injury Risk: Related Risk Factors Pt alert and oriented times three. Standby assist to bathroom, showered with shower chair. Pt denied any discomfort. Dressing on left neck continues to be clean,dry,intact. Swelling noted at this site, will continue to monitor. * Plan of Care - Chase Arias RN - 04/28/2011 3:48 AM EST Problem: Diabetes, Type 1 (Adult, Obstetric) Intervention: Hyperglycemia Management See MAR and flow sheets for Glucose management. Pt had her insulin pump and supplies delivered from home. Confusion appears to have resolved. P: Continue to monitor and provide a safe environment * Plan of Care - Arline Palencia RN - 04/26/2011 3:22 AM EST Problem: Diabetes, Type 1 (Adult, Obstetric) Goal: Prevent/Manage Potential Problems Based on my scope of practice, I assessed for signs and symptoms of potential problems that could be present as documented. Outcome: Present (see interventions, notes) Pt A&O resting in bed without complaint. Pt appears more lively tonight, interacting with staff, reporting that she is feeling much better overall. Pt had IJ and nicholson d/c'd on previous shift andable to shower tonight. Pt displaying increased mobility in bed. Edema still present. Intermittent h yperglycemia treated with sliding insulin scale. Ambien administered for sleep with good effect. Will continue to monitor. * OR Attestation - Devin Bob MD - 04/25/2011 10:12 PM EST Attestation: Case Date: 04/25/2011 As the attending physician, I was personally present for the entire procedure. DEVIN BOB MD 04/25/2011 * Op Note - Devin Bob MD - 04/25/2011 10:11 PM EST [facility] Operative Note Patient Name: Roxann Baxter : [id number] MR#: [id number] Case Date: 04/25/2011 Surgeon: Surgeon(s) and Role: * DEVIN BOB MD - Primary Preoperative diagnosis: coffee ground Postoperative diagnosis: * No post-op diagnosis entered * Procedure(s): UPPER GI ENDOSCOPY Full procedure note is documented under the Procedure section of eD. * Plan of Care Arline Patel RN - 04/25/2011 6:00 AM EST Problem: Pressure Ulcer Risk (Using Uche Scale) (Adult, Obstetric) Goal: Pressure Ulcer Risk (using Uche Scale): Tissue Integrity Outcome: Absent and monitoring Pt A&O x 3 resting in bed with c/o weakness & fatigue. Pt requires encouragement to move inthe bed, often refusing to be repositioned. Skin remains intact but vulva appears slightly excoriated. 3+ generalized edema noted. Pt c/o urethral irritation/burning sensation r/t nicholson. Left IJ dressing reinforced with tape (per RN report IJ may be d/c'd today). Ambien administered for sleep with good effect. Pt reports feeling well rested this a.m. Pt NPO as of now per GI for possible EGD. Will continue to monitor. * Plan of Arline Cordova RN - 04/24/2011 5:20 AM EST Problem: Diabetes, Type 1 (Adult, Obstetric) Goal: Prevent/Manage Potential Problems Based on my scope of practice, I assessed for signs and symptoms of potential problems that could be present as documented. Outcome: Present (see interventions, notes) Pt A&O this shift with no evidence of confusion, although pt did fall asleep early in the nightand appeared to remain sleeping except when woken for VS & BG checks. BG checked q 4hrs. BG this shift 94-177. Pt treated per sliding scale as ordered. No complaints this shift. Generalized edemanoted. Skin is intact. Nicholson catheter patent, draining CYU. VSS. Will continue to monitor. * Plan of Care - Gloria Orozco RN - 04/23/2011 8:42 AM EST Problem: Diabetes, Type 1 (Adult, Obstetric) Intervention: Hyperglycemia Management Pt continues on an insulin drip. Pt's blood sugar range for the noc shift was from 242 to 95. Pt's drip is set at 1 unit/hour. Pt not eating much. Ate a little toast last evening, as well as, some peaches. Fluid Balance - fluid volume excess Pt's urine output for overnight was only 350 ml via nicholson. Urine is clear yellow. Pt continues to receive 1/2 NS at 75 ml/hr. Pt with generalized tense edema (hands, fingers, legs, sacrum, abdomen). Pt's weight up to 101 kg today from 99.2 kg on 04/21. Pt with a dry non-productive cough. Taught pt the use of incentive spirometer, pt getting to 800 onthe scale. Pt had a low grade axillary temp overnight of 37.3. Pt's oxygen sats on room air were 95- 97%. Pt with some diminished breath sounds and scattered coarse breath sounds. No acute respiratory distress noted. * Consult Note - Elenita Uribe, PharmD - 04/22/2011 1:20 PM EST Clinical Pharmacist Note-Vanc Roxann Baxter [id number] 1955 Roxann Baxter is a 55 y.o. female who began antibiotic therapy which includes intravenous vancomycin. Today is day 3 of treatment. Based on a review of the patient???s chart and/or conversation with the patient???s providers vancomycin is being used for empiric coverage of sepsis with a targeted goal of 15 - 20 mcg/mL. Vancomycin has been discontinued. The pharmacist-managed vancomycin consult service will sign-off and vancomycin therapy, if it is to be restarted, must be ordered by the responsible prescriber. Should specific assistance be needed regarding re-initation or continuation of vancomycin therapy, please page the care area pharmacist with any questions you may have. Alternately, during off-hours you may call [phone] to contact a pharmacist. ELENITA URIBE PHARMD Pager [phone] * Plan of Care - Gayle Coon - 04/22/2011 11:26 AM EST Problem: Pressure Ulcer Risk (Using Uche Scale) (Adult, Obstetric) Goal: Pressure Ulcer Risk (using Uche Scale): Tissue Integrity Outcome: Absent and monitoring No pressure ulcers or breakdown noted. Preventative mepilex sacral dressing intact. Problem: Trauma/Injury Risk (Adult, Obstetric) Goal: Trauma/Injury Risk: Absence of Trauma/Injury/Falls Outcome: Absent and monitoring Close observation, bed alarm monitor on, siderails x 3 up, room lighting adjusted, tubing and central line secured and out of line of vision. Elopement precautions maintained. Problem: Pain, Acute (Adult, Obstetric) Goal: Acute Pain: Acceptable Pain Control/Comfort Level - Pain, Acute (Adult, Obstetric) Outcome: Absent and monitoring Nonverbal pain scale utilized as patient is unable to state pain goal or use numeric or faces scale. Problem: Diabetes, Type 1 (Adult, Obstetric) Goal: Prevent/Manage Potential Problems Based on my scope of practice, I assessed for signs and symptoms of potential problems that could be present as documented. Outcome: Therapy, goal partially met Per nursing scope of practice and MD orders, insulin infusion and protocol maintained. * Plan of Care - Bronson Bey RN - 04/22/2011 5:44 AM EST 0500. Patient awaken screaming for help because she cannot see. Her eyes are closed and she is agitated and restless. Encouraged patient to open her eyes which are still swollen and she does but states still that cannot see. Pt sitting up in bed pulling off oxygen. staff physician 2:1 to maintain safety. R epositioned patient. Pt sleeping at 5:20. * Plan of Care - Bronson Bey RN - 04/22/2011 1:46 AM EST Problem: Trauma/Injury Risk (Adult, Obstetric) Goal: Trauma/Injury Risk: Absence of Trauma/Injury/Falls Outcome: Present (see interventions, notes) Pt making multiple attempts to get out of bed. Assist of 2 to edge of bed, pt reports feeling dizzyand weak. No change in hemodynamic status. Encouraged patient to return to bed. Is not able to comply with safety precautions at this time secondary to altered mental status. Jacket restraint appliedper md order to prevent fall to floor. Pt agrees she will continue to attempt out of bed despite knowledge of harming herself. Will continue close monitoring and assistance as needed. * Plan of Care - Alivia Bueno RN - 04/21/2011 6:20 PM EST Problem: Pressure Ulcer Risk (Using Uche Scale) (Adult, Obstetric) Goal: Pressure Ulcer Risk (using Uche Scale): Tissue Integrity Outcome: Absent and monitoring Skin on back and butt intact. Mepilex border placed on sacrum. Pt on TCS bed. Problem: Trauma/Injury Risk (Adult, Obstetric) Goal: Trauma/Injury Risk: Absence of Trauma/Injury/Falls Outcome: Absent and monitoring All usual safety measures in effect. Patient without injury to date. Close observation continues Problem: Pain, Acute (Adult, Obstetric) Goal: Acute Pain: Acceptable Pain Control/Comfort Level - Pain, Acute (Adult, Obstetric) Outcome: Absent and monitoring Pt with no pain at present. Positioned as possible for comfort. Ice chips and mouth swabs given forthroat comfort after extubation. Will continue to assess for signs if discomfort. Problem: Diabetes, Type 1 (Adult, Obstetric) Goal: Prevent/Manage Potential Problems Based on my scope of practice, I assessed for signs and symptoms of potential problems that could be present as documented. Outcome: Therapy, goal partially met Glucoses monitored Q hour as per insulin drip protocol. Continue close monitioing * Consult Note - Odalis Ford, CHIEF TELEPHONE OPERATOR - 04/21/2011 3:48 PM EST Roxann Baxter 1955 [id number] Inpatient Endocrinology Glucose Management Consult Date of Consultation: 04/21/2011 Place of Consultation: ICU Consult Requested by: Dr. Fuller, Critical Care Reason for Consultation: Roxann Baxter is a 55 y.o. female who was admitted on 04/19/2011 for the diagnosis of DKA and shock. We are asked to see her to assist with diabetes management and to provide a review of his nursing home diabetes plan. Diabetes History: Roxann Baxter is a Type 1 Diabetic followed from 1304-2308 by outpatient endocrinology at [facility] ( & Melisa Sales PINKING MACHINE OPERATOR, CDE). Presented to outside hospital on 04/20/2011 unresponsive andobtunded, hyperglycemic, hypotensive and required fluid boluses (reported +10 liters) vasopressors ( dopamine, norepinephrine, and vasopressin) and intubation. On arrival to [facility] her Anion gap = 29, BOHB >8. Started on insulin gtt which at time of assessment was still infusing. Her anion gap is now 5, and BOHB <0.10. She was extubated around noon today and off vasopressors. ED 04/19/2011 labs on presentation. BG = 1,119 mg/dL Urine Drug screen negative K = 6.6 Cr = 4.3 Acetone 640 Mrs. Granados was having nausea, vomiting and diarrhea. Had been incontinent if stool as per ED note, progressively worsened unable to keep any fluids down, brought into local emergency room, she had been not acting like herself and was not answering questions appropriately. As per last outpatient endocrinology appointment note with Melisa Sales June of 2009, Mrs. Baxter was on Medtronic 722 insulin pump with total basal dose of 17.85 units per day. Total daily dose (basal and bolus) = 42.92 unit 40% basal, 60% bolus. Correction factor of 35 points for target BG = 85-125 mg/dL, and 1 unit per 20 grams CHO. She was also started on symlin at that visit. Reported at the last visit that her BG levels were checked 3-4 times per day and ranged usually in the 200's. Attempted to call her PCP, as noted in [facility] ELLY LONDON, CHIEF TELEPHONE OPERATOR [phone], however out on maternity leave and referred to covering providers at [facility], , left message with nurse. Yany's office returned voicemail and stated that they do not have any records for Mrs. Baxter. Inactive at Dr. Daysi Qureshi's office, changed to [facility] 03/04/2010 ([phone]) Dr. Nayla Miramontes has been following Mrs. Baxter since about 03/2010. Information provided from Dr. Miramontes: Feb 03, 2011 was last appointment with PCP, as per chart review from nurse & physician multiplemissed appointments cancelled 5 appointments this fall. For her depression had a psychiatrist who lost his license however she has not been able to get back to a psychiatrist (despite encouragement from PCP) currently on Lexapro, was tried on abilify but her BG control was very elevated. As per PCP notes, her depression worsened after her granddaughter July 2010 (cancer). A1C,10/29/10 10.3% 01/31/11 = 8.9% Urine micro alb14.8 in 2010 TSH on 10/2010= 112 (HAD NOT BEEN TAKING MEDS), in January 2011 0.04, Free T4 1.2, now on 150 mcg synthroid. 11/11/2010 Humalog vial insulin pump - pump calculates doses Symlin pen 120 TID 3 times a day with meals start with 15 and titrate to 60 mcg with meals FAX [phone] Miramontes's office Current outpatient diabetes regimen: Medications: Humalog via insulin pump - not available to confirm current rate Symlin 120 mcg TID with meals Monitoring: unknown Most recent HA1c was done on 04/21/2011 and was 9.3 %, suggesting an average glucose of 220 mg/dL for the past 6 weeks. 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 Codeine Phos ??? 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 etomidate 30 mg Intravenous Once ??? succinylcholine 140 mg Intravenous Once ??? vancomycin 1.5 g Intravenous Q12H ??? esomeprazole 40 mg Intravenous Q12H NAYANA ??? levothyroxine 75 mcg Intravenous QAM ??? bolus IV fluid Intravenous Once ??? DISCONTD: levothyroxine 35 mcg Intravenous QAM ??? chlorhexidine 15 mL Oral BID ??? hydrocortisone 80 mg Intravenous Q8H NAYANA ??? aspirin 81 mg Oral Daily ??? atorvastatin 20 mg Oral QPM ??? potassium phosphate 15 mmol Intravenous Once ??? piperacillin-tazobactam 3.375 g Intravenous Q6H NAYANA ??? DISCONTD: insulin aspart 3-6 Units Subcutaneous TID WC ??? DISCONTD: levothyroxine 65 mcg Intravenous QAM Social History: History Social History ??? Marital Status: Spouse Name: N/A Number of Children: N/A ??? Years of Education: N/A Occupational History ??? Not on file. Social History Main Topics ??? Smoking status: Former Smoker ??? Smokeless tobacco: Not on file ??? Alcohol Use: Not on file ??? Drug Use: Not on file ??? Sexually Active: Not on file Other Topics Concern ??? Not on file Social History Narrative ??? No narrative on file ROS: Review of Systems Unable to perform ROS Physical Exam: Last set of Vitals: BP 110/60 Pulse 55 Temp(Src) 37.1 ??C (98.8 ??F) (Oral) Resp 9 Wt 99.2 kg (218 lb 11.1 oz) SpO2 100% Physical Exam Constitutional: She appears lethargic. She is uncooperative. Cardiovascular: Normal rate and regular rhythm. Pulmonary/Chest: Effort normal. Abdominal: Bowel sounds are normal. Neurological: She appears lethargic. Labs (Last 24 Hours) : Recent Results (from the past 24 hour(s)) BASIC METABOLIC PANEL (NON-FASTING) Component Value Range ??? Glucose Lvl 129 60 - 199 (mg/dL) ??? BUN 37 (*) 8 - 18 (mg/dL) ??? Creatinine 1.37 (*) 0.70 - 1.20 (mg/dL) ??? Sodium 139 135 - 145 (mmol/L) ??? Potassium 4.3 3.5 - 5.0 (mmol/L) ??? Chloride 114 (*) 98 - 107 (mmol/L) ??? CO2 18 (*) 22 - 31 (mmol/L) ??? Anion Gap 7 5 - 15 (mmol/L) ??? Calcium 6.9 (*) 8.5 - 10.5 (mg/dL) ? ? Estimated GFR 40 (*) >=60 MAGNESIUM Component Value Range ??? Magnesium 0.80 0.69 - 1.07 (mmol/L) PHOSPHORUS Component Value Range ??? Phosphorus 1.2 (*) 2.5 - 4.5 (mg/dL) POCT GLUCOSE LAB USE ONLY Component Value Range ??? POC Glucose 110 60 - 199 (mg/dL) POCT GLUCOSE LAB USE ONLY Component Value Range ??? POC Glucose 228 (*) 60 - 199 (mg/dL) BLOOD GAS 2 VENOUS Component Value Range ??? pH Chip 7.26 (*) ??? pCO2 Chip 44 (mmHg) ??? pO2 Chip 30 (mmHg) ??? HCO3 Chip 19.5 (mmol/L) ??? BE Chip -7.6 (mmol/L) ??? Hgb Blood Gas 10.1 (*) (gm/dL) ??? O2HB Chip 58.7 (%) ??? COHB Chip 1.4 (%) ??? METHB Chip 0.8 (%) ??? Na Whole Blood 139 (mmol/L) ??? K Whole Blood 4.5 (mmol/L) ??? ICa Whole Blood 1.10 (*) (mmol/L) ??? CL Whole Blood 113 (*) (mmol/L) ??? Gluc Whole Bld 109 (mg/dL) ??? FIO2 Chip 40 (%) ??? BGas Source Venous BETA HYDROXYBUTYRATE Component Value Range ??? BOHB 0.10 0.00 - 0.30 (mmol/L) CBC (WITH DIFF) Component Value Range ??? WBC 20.2 (*) 4.0 - 10.0 (x10(3)/mcL) ??? RBC 3.96 3.93 - 5.22 (x10(6)/mcL) ??? Hemoglobin 9.8 (*) 11.2 - 15.7 (gm/dL) ??? Hematocrit 29.5 (*) 34.0 - 45.0 (%) ??? MCV 74.5 (*) 79.0 - 94.0 (fL) ??? MCH 24.7 (*) 26.6 - 32.2 (pg) ??? MCHC 33.2 32.0 - 36.5 (gm/dL) ??? Platelets 227 145 - 370 (x10(3)/mcL) ??? RDWSD 44.3 35.0 - 46.0 (fL) ??? RDWCV 16.2 (*) 10.9 - 14.4 (%) ??? MPV 8.5 (*) 9.0 - 12.0 (fL) LACTIC ACID, PLASMA Component Value Range ??? Lactate 0.9 0.5 - 2.2 (mmol/L) DIFFERENTIAL, AUTOMATED Component Value Range ??? Neutrophils % 89.8 (*) 34.0 - 71.0 (%) ??? Neutr Abs (ANC) 18.10 (*) 1.50 - 6.30 (x10(3)/mcL) ??? Lymphocytes % 4.7 (*) 19.0 - 53.0 (%) ??? Lymphocytes Abs 1.0 1.0 - 3.6 (x10(3)/mcL) ??? Monocytes % 5.2 4.0 - 13.0 (%) ??? Monocyte Abs 1.0 0.2 - 1.0 (x10(3)/mcL) ??? Eosinophils % 0.0 0.0 - 7.0 (%) ??? Eosinophils Abs 0.0 0.0 - 0.5 (x10(3)/mcL) ??? Basophils % 0.0 0.0 - 2.0 (%) ??? Basophils Abs 0.0 0.0 - 0.2 (x10(3)/mcL) ??? Immature Gran % 0.30 0.00 - 0.66 (%) ??? Ros Gran Abs 0.06 (*) 0.00 - 0.05 (x10(3)/mcL) CARDIAC ENZYMES Component Value Range ? ? Troponin-T 0.35 (*) <=0.03 (ng/mL) ??? CK, Total 2218 (*) 0 - 160 (unit/L) POCT GLUCOSE LAB USE ONLY Component Value Range ??? POC Glucose 105 60 - 199 (mg/dL) POCT GLUCOSE LAB USE ONLY Component Value Range ??? POC Glucose 112 60 - 199 (mg/dL) POCT GLUCOSE LAB USE ONLY Component Value Range ??? POC Glucose 125 60 - 199 (mg/dL) BASIC METABOLIC PANEL (NON-FASTING) Component Value Range ??? Glucose Lvl 120 60 - 199 (mg/dL) ??? BUN 33 (*) 8 - 18 (mg/dL) ??? Creatinine 1.32 (*) 0.70 - 1.20 (mg/dL) ??? Sodium 138 135 - 145 (mmol/L) ??? Potassium 4.5 3.5 - 5.0 (mmol/L) ??? Chloride 115 (*) 98 - 107 (mmol/L) ??? CO2 17 (*) 22 - 31 (mmol/L) ??? Anion Gap 6 5 - 15 (mmol/L) ??? Calcium 6.5 (*) 8.5 - 10.5 (mg/dL) ? ? Estimated GFR 42 (*) >=60 MAGNESIUM Component Value Range ??? Magnesium 0.78 0.69 - 1.07 (mmol/L) PHOSPHORUS Component Value Range ??? Phosphorus 1.5 (*) 2.5 - 4.5 (mg/dL) POCT GLUCOSE LAB USE ONLY Component Value Range ??? POC Glucose 125 60 - 199 (mg/dL) BLOOD GAS 2 ARTERIAL Component Value Range ??? pH Art 7.27 (*) ??? pCO2 Art 29 (*) (mmHg) ??? pO2 Art 106 (*) (mmHg) ??? HCO3 Art 12.8 (*) (mmol/L) ??? BE Art -14.1 (*) (mmol/L) ??? Hgb Blood Gas 8.7 (*) (gm/dL) ??? O2HB Art 95.3 (%) ??? COHB Art 1.5 (%) ??? METHB Art 0.6 (%) ??? Na Whole Blood 138 (mmol/L) ??? K Whole Blood 4.0 (mmol/L) ??? ICa Whole Blood 1.01 (*) (mmol/L) ??? CL Whole Blood 117 (*) (mmol/L) ??? Gluc Whole Bld 113 (mg/dL) ??? FIO2 Art 40 (%) ??? PF Ratio Art 265 POCT GLUCOSE LAB USE ONLY Component Value Range ??? POC Glucose 129 60 - 199 (mg/dL) POCT GLUCOSE LAB USE ONLY Component Value Range ??? POC Glucose 129 60 - 199 (mg/dL) POCT GLUCOSE LAB USE ONLY Component Value Range ??? POC Glucose 164 60 - 199 (mg/dL) LACTIC ACID, PLASMA Component Value Range ??? Lactate 0.7 0.5 - 2.2 (mmol/L) CBC (WITH DIFF) Component Value Range ??? WBC 16.2 (*) 4.0 - 10.0 (x10(3)/mcL) ??? RBC 3.76 (*) 3.93 - 5.22 (x10(6)/mcL) ??? Hemoglobin 9.6 (*) 11.2 - 15.7 (gm/dL) ??? Hematocrit 28.1 (*) 34.0 - 45.0 (%) ??? MCV 74.7 (*) 79.0 - 94.0 (fL) ??? MCH 25.5 (*) 26.6 - 32.2 (pg) ??? MCHC 34.2 32.0 - 36.5 (gm/dL) ??? Platelets 193 145 - 370 (x10(3)/mcL) ??? RDWSD 44.8 35.0 - 46.0 (fL) ??? RDWCV 16.6 (*) 10.9 - 14.4 (%) ??? MPV 9.0 9.0 - 12.0 (fL) BETA HYDROXYBUTYRATE Component Value Range ??? BOHB 0.11 0.00 - 0.30 (mmol/L) BASIC METABOLIC PANEL (NON-FASTING) Component Value Range ??? Glucose Lvl 153 60 - 199 (mg/dL) ??? BUN 29 (*) 8 - 18 (mg/dL) ??? Creatinine 1.24 (*) 0.70 - 1.20 (mg/dL) ??? Sodium 139 135 - 145 (mmol/L) ??? Potassium 4.1 3.5 - 5.0 (mmol/L) ??? Chloride 115 (*) 98 - 107 (mmol/L) ??? CO2 18 (*) 22 - 31 (mmol/L) ??? Anion Gap 6 5 - 15 (mmol/L) ??? Calcium 6.6 (*) 8.5 - 10.5 (mg/dL) ? ? Estimated GFR 45 (*) >=60 MAGNESIUM Component Value Range ??? Magnesium 0.77 0.69 - 1.07 (mmol/L) PHOSPHORUS Component Value Range ??? Phosphorus 2.2 (*) 2.5 - 4.5 (mg/dL) DIFFERENTIAL, AUTOMATED Component Value Range ??? Neutrophils % 87.9 (*) 34.0 - 71.0 (%) ??? Neutr Abs (ANC) 14.22 (*) 1.50 - 6.30 (x10(3)/mcL) ??? Lymphocytes % 6.3 (*) 19.0 - 53.0 (%) ??? Lymphocytes Abs 1.0 1.0 - 3.6 (x10(3)/mcL) ??? Monocytes % 5.5 4.0 - 13.0 (%) ??? Monocyte Abs 0.9 0.2 - 1.0 (x10(3)/mcL) ??? Eosinophils % 0.0 0.0 - 7.0 (%) ??? Eosinophils Abs 0.0 0.0 - 0.5 (x10(3)/mcL) ??? Basophils % 0.0 0.0 - 2.0 (%) ??? Basophils Abs 0.0 0.0 - 0.2 (x10(3)/mcL) ??? Immature Gran % 0.30 0.00 - 0.66 (%) ??? Ros Gran Abs 0.05 0.00 - 0.05 (x10(3)/mcL) HEMOGLOBIN A1C Component Value Range ??? Hemoglobin A1C 9.3 (*) 4.3 - 6.1 (%) ??? Est Avg Gluc 220 (mg/dL) POCT GLUCOSE LAB USE ONLY Component Value Range ??? POC Glucose 165 60 - 199 (mg/dL) CARDIAC ENZYMES Component Value Range ? ? Troponin-T 0.20 (*) <=0.03 (ng/mL) ??? CK, Total 3108 (*) 0 - 160 (unit/L) POCT GLUCOSE LAB USE ONLY Component Value Range ??? POC Glucose 144 60 - 199 (mg/dL) POCT GLUCOSE LAB USE ONLY Component Value Range ??? POC Glucose 128 60 - 199 (mg/dL) VANCOMYCIN, TROUGH Component Value Range ??? Vanc Trough 16.0 (mg/L) BASIC METABOLIC PANEL (NON-FASTING) Component Value Range ??? Glucose Lvl 175 60 - 199 (mg/dL) ??? BUN 27 (*) 8 - 18 (mg/dL) ??? Creatinine 1.16 0.70 - 1.20 (mg/dL) ??? Sodium 138 135 - 145 (mmol/L) ??? Potassium 4.0 3.5 - 5.0 (mmol/L) ??? Chloride 115 (*) 98 - 107 (mmol/L) ??? CO2 18 (*) 22 - 31 (mmol/L) ??? Anion Gap 5 5 - 15 (mmol/L) ??? Calcium 6.7 (*) 8.5 - 10.5 (mg/dL) ? ? Estimated GFR 48 (*) >=60 MAGNESIUM Component Value Range ??? Magnesium 0.75 0.69 - 1.07 (mmol/L) PHOSPHORUS Component Value Range ??? Phosphorus 1.6 (*) 2.5 - 4.5 (mg/dL) POCT GLUCOSE LAB USE ONLY Component Value Range ??? POC Glucose 126 60 - 199 (mg/dL) POCT GLUCOSE LAB USE ONLY Component Value Range ??? POC Glucose 190 60 - 199 (mg/dL) POCT GLUCOSE LAB USE ONLY Component Value Range ??? POC Glucose 208 (*) 60 - 199 (mg/dL) POCT GLUCOSE LAB USE ONLY Component Value Range ??? POC Glucose 222 (*) 60 - 199 (mg/dL) POCT GLUCOSE LAB USE ONLY Component Value Range ??? POC Glucose 169 60 - 199 (mg/dL) POCT GLUCOSE LAB USE ONLY Component Value Range ??? POC Glucose 173 60 - 199 (mg/dL) POCT GLUCOSE LAB USE ONLY Component Value Range ??? POC Glucose 174 60 - 199 (mg/dL) MICROALBUMIN, URINE, RANDOM Component Value Range ??? U Creatinine 151 (mg/dL) ??? U Ran Malb Conc 392.0 (mg/L) ??? U Ran Malb Calc 260 (mcg/mg Cr) Recent Labs Basename 04/21/11 1555 04/21/11 1457 04/21/11 1246 04/21/11 1155 04/21/11 1113 04/21/11 0938 04/21/11 07039 0645 04/21/11 0448 04/21/11 0342 04/21/11 0220 04/21/11 0113 ??? POCGLU 141 150 174 173 169 222* 208* 190 126 128 144 165 Assessment: Mrs. Baxter is a 55 y/o Type 2 Diabetic, on insulin pump at home with symlin poor glycemic control.Recently extubated and on assessment today unable to get necessary information regarding monitoringand insulin pump use at home. As per her PCP she has been struggling with depression and even more so now that her previous psychiatrist is no longer practicing and she has no followed (despite encouragement from PCP) with another psychiatric provider. Her overall glycemic control has fluctuated but not ideal within the last few years. Given her admission DKA, elevated A1C suggesting chronically elevated BG levels despite insulin home pump use, severe dehydration, and recent extubation recommend continuing insulin gtt at this time.Will need to be able to speak to mrs. Baxter and gather information from her regarding her BG control and management at home prior to starting on SC home insulin pump, however if no able to do so then will use SC regimen with basal/ bolus inslin. Will follow up again tomorrow morning to assess if appropriate to transition off insulin gtt at that time. Please feel free to contact the diabetes management team with any questions or concerns regarding these recommendations. Plan: In hospital - Continue with insulin gtt at this time as per T1DM protocol detention management: Will need to follow up with outpatient endocrinology within the 2-3 weeks post discharge. ?? Discussed goal of HbA1C <7% ?? Recommend 30 minutes of exercise daily ?? Patient encouraged to eat 3 balanced meals with moderate portions of carbohydrates with each meal ?? Goal LDL <70. Goal HDL >40 ?? Yearly dilated eye exam ?? Yearly urine micro albumin ?? Nightly foot inspection ?? Biannual dental exams This case was discussed with Dr. Shreyas Pollack. Odalis Ford APRN [facility] [place] [facility] Diabetes Management [phone] Pager [phone] min time spent in patient care with 30 counseling, seeing patient, changing orders and discussion with the patient and the primary team as well as nursing. * Consult Note - Elenita Uribe, PharmD - 04/21/2011 9:40 AM EST Clinical Pharmacist Note-Vanc Roxann Baxter [id number] 1955 Roxann Baxter is a 55 y.o. female who began antibiotic therapy which includes intravenous vancomycin. Today is day 2 of treatment. Based on a review of the patient???s chart and/or conversation with the patient???s providers vancomycin is being used for empiric coverage of sepsis infection with a targeted goal of 15 - 20 mcg/mL. The following Pharmacokinetic data has been evaluated: Wt Readings from Last 1 Encounters: 04/21/11 99.2 kg (218 lb 11.1 oz) Ht Readings from Last 1 Encounters: 03/05/11 167.6 cm (5' 6) Vanc Trough (mg/L) Date Value 04/21/2011 16.0 Creatinine (mg/dL) Date Value 04/21/2011 1.16 The GFR is unknown because both a height and weight (above a minimum accepted value) are required for this calculation. (Cockcroft & Gault calculation) After a review of this information the following pharmacokinetic parameters have been estimated: Volume of distribution (Vd) = 69 Liters Dosing recommendations: The level reflects 12 hours since last dose of 1.25 gm IV x1. Due to improving renal function and positive fluid status, a standing dose of 1500 mg IV every 12 hours, to start now should achieve an estimated trough level of 15 - 20 mcg/mL. Monitoring recommendations: A new steady state level should be achieved after 4 half-lives. The pharmacist consult service willfollow-up with the team regarding plan for vancomycin therapy and, if continuing, will check a trough level to assure within target range. We will also closely monitor to assure continued improvementin renal function and will check a vancomycin level if renal function declines. We will continue to monitor the patient as long as she remains on vancomycin therapy. Please watch SCr, BUN and fluid status closely. Please page the care area pharmacist with any questions you may have. Alternately, during off-hours you may call [phone] to contact a pharmacist. ELENITA URIBE PHARMD Pager [phone] * Plan of Care - Bronson Bey RN - 04/21/2011 6:09 AM EST Problem: Pain, Acute (Adult, Obstetric) Goal: Acute Pain: Acceptable Pain Control/Comfort Level - Pain, Acute (Adult, Obstetric) Outcome: Present (see interventions, notes) Nonverbal scoring for pain assessment secondary to patient intubated and inability to communicate at this time * Plan of Care - Bronson Bey RN - 04/21/2011 6:08 AM EST Problem: Trauma/Injury Risk (Adult, Obstetric) Goal: Trauma/Injury Risk: Absence of Trauma/Injury/Falls Outcome: Present (see interventions, notes) Pt intubated and sedated with bilateral wrist restraints in place. Intermittent restlessness and attempts to pull at femoral arterial line and ett. Close nursing supervision 1;1 required when patientis aroused. * Consult Note - Rosi Martin, PharmD - 04/20/2011 3:31 PM EST Clinical Pharmacist Note-Vanc Roxann Baxter [id number] 1955 Roxann Baxter is a 55 y.o. female who began antibiotic therapy which includes intravenous vancomycin. Today is day 1 of treatment. Based on a review of the patient???s chart and/or conversation with the patient???s providers a loading dose of vancomycin 2000 mg once was initially used for empiric coverage of sepsis infection with a targeted goal of 15 - 20 mcg/mL. The following Pharmacokinetic data has been evaluated: Wt Readings from Last 1 Encounters: 04/19/11 83.3 kg (183 lb 10.3 oz) Ht Readings from Last 1 Encounters: 03/05/11 167.6 cm (5' 6) Vanc Trough (mg/L) Date Value 04/20/2011 17.1 Creatinine (mg/dL) Date Value 04/20/2011 1.64* The GFR is unknown because both a height and weight (above a minimum accepted value) are required for this calculation. (Cockcroft & Gault calculation) After a review of this information the following pharmacokinetic parameters have been estimated: Half-Life (T1/2) = 17 hours Elimination rate (Ke) = 0.04 hr-1 Dosing recommendations: Based on this information a dose of 1250 mg x 1 dose, to start at 17:00 (time) on 04/20/2011 should achieve an estimated trough level of 15 - 20 mcg/mL. Monitoring recommendations: I suggest rechecking a vancomycin trough level at 05:00 (time) on 04/21/2011 to re-evaluate. We will continue to monitor the patient as long as he/she remains on vancomycin therapy. Please watch SCr, BUN and fluid status closely. Please page the care area pharmacist with any questions you may have. Alternately, during off-hours you may call [phone] to contact a pharmacist. Pharmacists??? therapeutic drug monitoring will continue for patients receiving vancomycin. Should specific assistance be needed regarding re-initation or continuation of vancomycin therapy, please page the care area pharmacist with any questions you may have. Alternately, during off-hours you may call [phone] to contact a pharmacist. ROSI MARTIN, JAKE * Plan of Care - Cris Montejo RN - 04/20/2011 3:06 PM EST Problem: Diabetes, Type 1 (Adult, Obstetric) Intervention: Pressure Reduction Devices Patient admitted with diabetic ketoacidosis, she is currently on insulin drip and glucoses are improving. Potassium is 4.2 and creatinine has improved to 1.6. She remains on Levophed and vasopressin with a stable BP. Ph remains 7.27 at present. * Plan of Care - Roseanne Cardenas RN - 04/20/2011 2:06 AM EST Problem: Pressure Ulcer Risk (Using Uche Scale) (Adult, Obstetric) Goal: Pressure Ulcer Risk (using Uche Scale): Tissue Integrity Outcome: Absent and monitoring Skin intact on admission, Mepilex placed on sacrum for prevention. Perfusion issues present/patientvasopressor dependent at present. Continue to monitor. Problem: Trauma/Injury Risk (Adult, Obstetric) Goal: Trauma/Injury Risk: Absence of Trauma/Injury/Falls Outcome: Absent and monitoring Risk to fall bracelet placed on patient. Close assessments/provide for patient's needs. Problem: Pain, Acute (Adult, Obstetric) Goal: Acute Pain: Acceptable Pain Control/Comfort Level - Pain, Acute (Adult, Obstetric) Outcome: Present (see interventions, notes) Non-verbal cues of pain versus agitation noted. Fentanyl gtt and versed gtts. * Consult Note - Jennifer Morales PharmD - 04/19/2011 9:18 PM EST Clinical Pharmacist Note-VancFD Roxann Baxter [id number] 1955 Roxann Baxter is a 55 y.o. femalewho is starting antibiotic therapy which includes intravenous vancomycin. Based on a review of the patient???s chart and/or conversation with the patient???s providers vancomycin is being used for empiric coverage of sepsis with a targeted goal of 15 - 20 mcg/mL. The following Pharmacokinetic data has been evaluated: Wt Readings from Last 1 Encounters: 03/05/11 82.555 kg (182 lb) Ht Readings from Last 1 Encounters: 03/05/11 167.6 cm (5' 6) Creatinine (mg/dL) Date Value 04/19/2011 3.10* The GFR is unknown because both a height and weight (above a minimum accepted value) are required for this calculation. (Cockcroft & Gault calculation) Dosing recommendations: Based on this information, vancomycin therapy will be initiated with a one-time dose of 2000 mg to be given now A full dosing regimen will be ordered upon complete pharmacist consultation to follow. We will continue to monitor the patient as long as he/she remains on vancomycin therapy. Thank you for this consult and please page the care area pharmacist with any questions you may have. Alternately, during off-hours (9p-7a) you may call [phone] to contact a pharmacist. JENNIFER MORALES PHARMD * Miscellaneous - Provider, Scanning - 04/19/2011 7:16 PM EST documented in this encounter Plan of Treatment Upcoming Encounters Date Type Department Care Team (Late st Contact Info) Description 05/17/2024 2:30 PM EST Office [place] [address] Alcides Bonilla MD [facility] [place] [address] 04/06/2049 9:00 AM EST Hospital [place] [address] Harry Guerrero MD [facility] [place] [address] Pending Results Name Type Priority Associated Diagnoses Date /Time Transfuse RBC Blood Bank STAT 04/20/2011 12:43 PM EST documented as of this encounter Procedures Procedure Name Priority Date/Time Associated Diagnosis Comments LAB SCAN 04/30/2011 2:15 PM EST COMPUTER LAB ASSISTANT SCAN 04/30/2011 2:15 PM EST POCT GLUCOSE Routine 04/29/2011 11:51 AM EST POCT GLUCOSE Routine 04/29/2011 9:56 AM EST POCT GLUCOSE Routine 04/29/2011 7:41 AM EST BMP W/FASTING GLUCOSE Routine 04/29/2011 5:50 AM EST DIFFERENTIAL, AUTOMATED Routine 04/29/19 12 5:50 AM EST CBC (WITH DIFF) Routine 04/29/2011 5:50 AM EST POCT GLUCOSE Routine 04/29/2011 4:26 AM EST POCT GLUCOSE Routine 04/29/2011 2:13 AM EST POCT GLUCOSE Routine 04/29/2011 12:08 AM EST POCT GLUCOSE Routine 04/28/2011 8:20 PM EST POCT GLUCOSE Routine 04/28/2011 4:05 PM EST POCT GLUCOSE Routine 04/28/2011 1:55 PM EST BMP W/FASTING GLUCOSE Routine 04/28/2011 11:22 AM EST DIFFERENTIAL, AUTOMATED Routine 04/28/19 12 11:22 AM EST CBC (WITH DIFF) Routine 04/28/2011 11:22 AM EST POCT GLUCOSE Routine 04/28/2011 11:13 AM EST POCT GLUCOSE Routine 04/28/2011 9:35 AM EST POCT GLUCOSE Routine 04/28/2011 7:33 AM EST POCT GLUCOSE Routine 04/28/2011 4:29 AM EST POCT GLUCOSE Routine 04/27/2011 11:45 PM EST POCT GLUCOSE Routine 04/27/2011 8:11 PM EST POCT GLUCOSE Routine 04/27/2011 4:36 PM EST POCT GLUCOSE Routine 04/27/2011 11:37 AM EST BMP W/FASTING GLUCOSE Routine 04/27/2011 8:30 AM EST DIFFERENTIAL, AUTOMATED Routine 04/27/19 12 8:30 AM EST CBC (WITH DIFF) Routine 04/27/2011 8:30 AM EST POCT GLUCOSE Routine 04/27/2011 7:48 AM EST POCT GLUCOSE Routine 04/27/2011 3:47 AM EST POCT GLUCOSE Routine 04/26/2011 11:53 PM EST POCT GLUCOSE Routine 04/26/2011 8:02 PM EST POCT GLUCOSE Routine 04/26/2011 4:02 PM EST POCT GLUCOSE Routine 04/26/2011 11:46 AM EST BMP W/FASTING GLUCOSE Routine 04/26/2011 10:30 AM EST DIFFERENTIAL, AUTOMATED Routine 04/26/19 12 10:30 AM EST CBC (WITH DIFF) Routine 04/26/2011 10:30 AM EST CK Routine 04/26/2011 10:30 AM EST POCT GLUCOSE Routine 04/26/2011 7:48 AM EST POCT GLUCOSE Routine 04/26/2011 5:53 AM EST POCT GLUCOSE Routine 04/26/2011 3:42 AM EST POCT GLUCOSE Routine 04/26/2011 12:06 AM EST POCT GLUCOSE Routine 04/25/2011 8:32 PM EST POCT GLUCOSE Routine 04/25/2011 4:48 PM EST XR CHEST PA AND LATERAL Routine 04/25/19 12 3:45 PM EST POCT GLUCOSE Routine 04/25/2011 12:21 PM EST UPPER GI ENDOSCOPY 04/25/2011 10 :58 AM EST coffee ground UPPER GI ENDOSCOPY Routine 04/25/2011 10 :23 AM EST POCT GLUCOSE Routine 04/25/2011 10:16 AM EST POCT GLUCOSE Routine 04/25/2011 8:00 AM EST BMP W/FASTING GLUCOSE Routine 04/25/2011 7:00 AM EST DIFFERENTIAL, AUTOMATED Routine 04/25/19 12 7:00 AM EST CBC (WITH DIFF) Routine 04/25/2011 7:00 AM EST CK Routine 04/25/2011 7:00 AM EST UPPER GI ENDOSCOPY Routine 04/25/2011 6: 46 AM EST POCT GLUCOSE Routine 04/25/2011 4:29 AM EST POCT GLUCOSE Routine 04/24/2011 11:31 PM EST POCT GLUCOSE Routine 04/24/2011 7:44 PM EST POCT GLUCOSE Routine 04/24/2011 5:05 PM EST POCT GLUCOSE Routine 04/24/2011 2:45 PM EST POCT GLUCOSE Routine 04/24/2011 11:33 AM EST POCT GLUCOSE Routine 04/24/2011 7:35 AM EST BMP W/FASTING GLUCOSE Routine 04/24/2011 6:10 AM EST DIFFERENTIAL, AUTOMATED Routine 04/24/19 12 6:10 AM EST CBC (WITH DIFF) Routine 04/24/2011 6:10 AM EST MAGNESIUM Routine 04/24/2011 6:10 AM EST CK Routine 04/24/2011 6:10 AM EST POCT GLUCOSE Routine 04/24/2011 4:03 AM EST POCT GLUCOSE Routine 04/24/2011 12:11 AM EST POCT GLUCOSE Routine 04/23/2011 8:07 PM EST GREEN TUBE HOLD Routine 04/23/2011 5:40 PM EST LAVENDER TUBE HOLD Routine 04/23/2011 5: 40 PM EST POCT GLUCOSE Routine 04/23/2011 4:36 PM EST POCT GLUCOSE Routine 04/23/2011 3:00 PM EST POCT GLUCOSE Routine 04/23/2011 1:28 PM EST POCT GLUCOSE Routine 04/23/2011 12:23 PM EST POCT GLUCOSE Routine 04/23/2011 11:24 AM EST POCT GLUCOSE Routine 04/23/2011 10:22 AM EST POCT GLUCOSE Routine 04/23/2011 9:17 AM EST POCT GLUCOSE Routine 04/23/2011 8:18 AM EST INTUBATION Routine 04/23/2011 8:10 AM EST POCT GLUCOSE Routine 04/23/2011 7:15 AM EST POCT GLUCOSE Routine 04/23/2011 6:09 AM EST POCT GLUCOSE Routine 04/23/2011 5:09 AM EST POCT GLUCOSE Routine 04/23/2011 4:05 AM EST POCT GLUCOSE Routine 04/23/2011 2:48 AM EST POCT GLUCOSE Routine 04/23/2011 1:47 AM EST POCT GLUCOSE Routine 04/23/2011 1:05 AM EST POCT GLUCOSE Routine 04/23/2011 12:19 AM EST POCT GLUCOSE Routine 04/22/2011 11:28 PM EST POCT GLUCOSE Routine 04/22/2011 10:10 PM EST POCT GLUCOSE Routine 04/22/2011 8:46 PM EST POCT GLUCOSE Routine 04/22/2011 7:25 PM EST POCT GLUCOSE Routine 04/22/2011 7:01 PM EST POCT GLUCOSE Routine 04/22/2011 6:10 PM EST POCT GLUCOSE Routine 04/22/2011 5:17 PM EST POCT GLUCOSE Routine 04/22/2011 3:46 PM EST POCT GLUCOSE Routine 04/22/2011 2:23 PM EST POCT GLUCOSE Routine 04/22/2011 1:00 PM EST POTASSIUM Routine 04/22/2011 1:00 PM EST POCT GLUCOSE Routine 04/22/2011 11:53 AM EST POCT GLUCOSE Routine 04/22/2011 10:27 AM EST POCT GLUCOSE Routine 04/22/2011 8:49 AM EST EKG 12-LEAD Routine 04/22/2011 8:12 AM EST Shock POCT GLUCOSE Routine 04/22/2011 7:43 AM EST DIFFERENTIAL, AUTOMATED STAT 04/22/19 12 6:32 AM EST CBC (WITH DIFF) STAT 04/22/2011 6:32 AM EST POCT GLUCOSE Routine 04/22/2011 6:15 AM EST POCT GLUCOSE Routine 04/22/2011 5:06 AM EST CARDIAC ENZYMES (MC/CGP) STAT 04/22/2011 4:45 AM EST BASIC METABOLIC PANEL STAT 04/22/2011 4:45 AM EST POCT GLUCOSE Routine 04/22/2011 3:59 AM EST POCT GLUCOSE Routine 04/22/2011 3:11 AM EST POCT GLUCOSE Routine 04/22/2011 2:02 AM EST POCT GLUCOSE Routine 04/22/2011 1:03 AM EST POCT GLUCOSE Routine 04/21/2011 11:39 PM EST BLOOD GAS ARTERIAL POC Routine 2 11:38 PM EST POCT GLUCOSE Routine 04/21/2011 9:24 PM EST POCT GLUCOSE Routine 04/21/2011 8:41 PM EST POCT GLUCOSE Routine 04/21/2011 7:05 PM EST CARDIAC ENZYMES (DHMC/CGP) Routine 04/21/2011 6:45 PM EST POTASSIUM Routine 04/21/2011 6:45 PM EST POCT GLUCOSE Routine 04/21/2011 6:05 PM EST POCT GLUCOSE Routine 04/21/2011 5:05 PM EST POCT GLUCOSE Routine 04/21/2011 3:55 PM EST POCT GLUCOSE Routine 04/21/2011 2:57 PM EST U ALBUMIN/CRE RATIO Routine 04/21/2011 1 :06 PM EST POCT GLUCOSE Routine 04/21/2011 12:46 PM EST EXTUBATE Routine 04/21/2011 12:17 PM EST POCT GLUCOSE Routine 04/21/2011 11:55 AM EST POCT GLUCOSE Routine 04/21/2011 11:13 AM EST POCT GLUCOSE Routine 04/21/2011 9:38 AM EST POCT GLUCOSE Routine 04/21/2011 8:34 AM EST POCT GLUCOSE Routine 04/21/2011 6:45 AM EST POCT GLUCOSE Routine 04/21/2011 4:48 AM EST PHOSPHORUS Routine 04/21/2011 4:45 AM EST MAGNESIUM Routine 04/21/2011 4:45 AM EST VANCOMYCIN, TROUGH Timed 04/21/2011 4: 45 AM EST BASIC METABOLIC PANEL Routine 04/21/2011 4:45 AM EST ENDOTRACHEAL TUBE POSITION CHANGE Routine 04/21/2011 3:50 AM EST POCT GLUCOSE Routine 04/21/2011 3:42 AM EST XR CHEST ONE VIEW Routine 04/21/2011 2:3 7 AM EST POCT GLUCOSE Routine 04/21/2011 2:20 AM EST CARDIAC ENZYMES (DHMC/CGP) STAT 04/21/2011 2:15 AM EST POCT GLUCOSE Routine 04/21/2011 1:13 AM EST DIFFERENTIAL, AUTOMATED Routine 04/21/19 12 1:00 AM EST BETA HYDROXYBUTYRATE Routine 04/21/2011 1:00 AM EST CBC (WITH DIFF) Routine 04/21/2011 1:00 AM EST PHOSPHORUS Routine 04/21/2011 1:00 AM EST MAGNESIUM Routine 04/21/2011 1:00 AM EST HEMOGLOBIN A1C Routine 04/21/2011 1:00 AM EST BASIC METABOLIC PANEL Routine 04/21/2011 1:00 AM EST LACTATE, PLASMA Routine 04/21/2011 12:28 AM EST POCT GLUCOSE Routine 04/21/2011 12:23 AM EST POCT GLUCOSE Routine 04/20/2011 11:16 PM EST POCT GLUCOSE Routine 04/20/2011 10:11 PM EST BLOOD GAS ARTERIAL POC Routine 2 8:54 PM EST POCT GLUCOSE Routine 04/20/2011 8:52 PM EST PHOSPHORUS Routine 04/20/2011 7:45 PM EST MAGNESIUM Routine 04/20/2011 7:45 PM EST BASIC METABOLIC PANEL Routine 04/20/2011 7:45 PM EST POCT GLUCOSE Routine 04/20/2011 7:44 PM EST POCT GLUCOSE Routine 04/20/2011 6:43 PM EST POCT GLUCOSE Routine 04/20/2011 5:50 PM EST DIFFERENTIAL, AUTOMATED Routine 04/20/19 12 5:45 PM EST CARDIAC ENZYMES ([facility]/CGP) Routine 04/20/2011 5:45 PM EST BETA HYDROXYBUTYRATE Routine 04/20/2011 5:45 PM EST CBC (WITH DIFF) Routine 04/20/2011 5:45 PM EST LACTATE, PLASMA Routine 04/20/2011 5:45 PM EST BLOOD GAS VENOUS POC Routine 04/20/2011 4:39 PM EST POCT GLUCOSE Routine 04/20/2011 4:38 PM EST POCT GLUCOSE Routine 04/20/2011 4:05 PM EST PHOSPHORUS Routine 04/20/2011 4:00 PM EST MAGNESIUM Routine 04/20/2011 4:00 PM EST BASIC METABOLIC PANEL Routine 04/20/2011 4:00 PM EST BLOOD GAS ARTERIAL POC Routine 2 1:53 PM EST POCT GLUCOSE Routine 04/20/2011 1:48 PM EST VANCOMYCIN, TROUGH Timed 04/20/2011 1: 40 PM EST ECHOCARDIOGRAM TRANSTHORACIC STAT 04/20/2011 1:23 PM EST Shock POCT GLUCOSE Routine 04/20/2011 1:15 PM EST EKG 12-LEAD STAT 04/20/2011 12:25 PM EST Shock POCT GLUCOSE Routine 04/20/2011 12:21 PM EST DIFFERENTIAL, AUTOMATED Routine 04/20/19 12 12:06 PM EST CBC (WITH DIFF) Routine 04/20/2011 12:06 PM EST LACTATE, PLASMA Routine 04/20/2011 12:06 PM EST BETA HYDROXYBUTYRATE Routine 04/20/2011 12:00 PM EST PHOSPHORUS Routine 04/20/2011 12:00 PM EST MAGNESIUM Routine 04/20/2011 12:00 PM EST LIPASE Routine 04/20/2011 12:00 PM EST AMYLASE Routine 04/20/2011 12:00 PM EST BASIC METABOLIC PANEL Routine 04/20/2011 12:00 PM EST PREPARE RBC STAT 04/20/2011 11:45 AM EST POCT GLUCOSE Routine 04/20/2011 11:17 AM EST BLOOD CULTURE Routine 04/20/2011 11:00 AM EST POCT GLUCOSE Routine 04/20/2011 10:11 AM EST CARDIAC ENZYMES (MC/CGP) STAT 04/20/2011 10:00 AM EST BLOOD CULTURE Routine 04/20/2011 10:00 AM EST VANCOMYCIN, TROUGH Timed 04/20/2011 10 :00 AM EST URINE CULTURE Routine 04/20/2011 9:25 AM EST RESP VIRUS AG PANEL Routine 04/20/2011 9 :24 AM EST URINALYSIS WITH REFLEX CULTURE Routine 04/20/2011 9:24 AM EST LOWER RESPIRATORY CULTURE Routine 04/20/2011 9:24 AM EST BLOOD GAS VENOUS POC Routine 04/20/2011 9:18 AM EST POCT GLUCOSE Routine 04/20/2011 9:10 AM EST HEPATIC FUNCTION PANEL Routine 2 9:01 AM EST LOWER RESPIRATORY CULTURE Routine 04/20/2011 8:53 AM EST BLOOD GAS VENOUS POC Routine 04/20/2011 7:55 AM EST POCT GLUCOSE Routine 04/20/2011 7:52 AM EST POCT GLUCOSE Routine 04/20/2011 6:53 AM EST BLOOD GAS ARTERIAL POC Routine 2 5:57 AM EST POCT GLUCOSE Routine 04/20/2011 5:56 AM EST DIFFERENTIAL, AUTOMATED Routine 04/20/19 12 5:55 AM EST BETA HYDROXYBUTYRATE Routine 04/20/2011 5:55 AM EST CBC (WITH DIFF) Routine 04/20/2011 5:55 AM EST PHOSPHORUS Routine 04/20/2011 5:55 AM EST MAGNESIUM Routine 04/20/2011 5:55 AM EST LACTATE, PLASMA Routine 04/20/2011 5:55 AM EST BASIC METABOLIC PANEL Routine 04/20/2011 5:55 AM EST POCT GLUCOSE Routine 04/20/2011 5:02 AM EST POCT GLUCOSE Routine 04/20/2011 4:00 AM EST POCT GLUCOSE Routine 04/20/2011 3:03 AM EST POCT GLUCOSE Routine 04/20/2011 1:58 AM EST POCT GLUCOSE Routine 04/20/2011 1:05 AM EST BLOOD GAS ARTERIAL POC Routine 2 12:11 AM EST DIFFERENTIAL, AUTOMATED Routine 04/20/19 12 12:02 AM EST BETA HYDROXYBUTYRATE Routine 04/20/2011 12:02 AM EST CBC (WITH DIFF) Routine 04/20/2011 12:02 AM EST PHOSPHORUS Routine 04/20/2011 12:02 AM EST MAGNESIUM Routine 04/20/2011 12:02 AM EST LACTATE, PLASMA Routine 04/20/2011 12:02 AM EST BASIC METABOLIC PANEL Routine 04/20/2011 12:02 AM EST GLUCOSE STAT 04/19/2011 10:05 PM EST BLOOD GAS VENOUS POC Routine 04/19/2011 8:53 PM EST EKG 12-LEAD Routine 04/19/2011 8:47 PM EST Diabetes mellitus XR CHEST ONE VIEW Routine 04/19/2011 8:3 5 PM EST XR ABDOMEN 1 VIEW Routine 04/19/2011 8:3 5 PM EST BLOOD GAS ARTERIAL POC Routine 2 8:25 PM EST SCAN, PERIPHERAL BLOOD Routine 2 8:11 PM EST DIFFERENTIAL, AUTOMATED Routine 04/19/19 12 8:11 PM EST BETA HYDROXYBUTYRATE Routine 04/19/2011 8:11 PM EST ABO/RH TYPING Routine 04/19/2011 8:11 PM EST APTT Routine 04/19/2011 8:11 PM EST PROTHROMBIN TIME Routine 04/19/2011 8:11 PM EST CBC (WITH DIFF) Routine 04/19/2011 8:11 PM EST ANTIBODY SCREEN Routine 04/19/2011 8:11 PM EST TYPE AND SCREEN (MC/CGP/NILTON) Routine 04/19/2011 8:11 PM EST PHOSPHORUS Routine 04/19/2011 8:11 PM EST OSMOLALITY Routine 04/19/2011 8:11 PM EST MAGNESIUM Routine 04/19/2011 8:11 PM EST LACTATE, PLASMA Routine 04/19/2011 8:11 PM EST BASIC METABOLIC PANEL Routine 04/19/2011 8:11 PM EST CENTRAL LINE Routine 04/19/2011 7:38 PM EST documented in this encounter Results * SCAN DOC: LAB (04/30/2011 2:15 PM EST) Narrative 04/30/2011 2:15 PM EST Procedure Note Provider, Scanning - 04/30/2011 2:15 PM EST Scanning Provider MEDIA MGR SCAN EXT O RDR/RSLT * SCAN DOC: COMPUTER LAB ASSISTANT (04/30/2011 2:15 PM EST) Anatomical Region Laterality Modality Other Narrative 05/04/2011 8:21 PM EST Procedure Note Provider, Scanning - 04/30/2011 2:15 PM EST Scanning Provider MEDIA MGR SCAN EXT O RDR/RSLT * POCT GLUCOSE LAB USE ONLY (04/29/2011 11:51 AM EST) Glucose, POC 182 60 - 199 mg/dL [facility] LE[facility] Comment: Supplemental ranges: <110 mg/dL before meals <200 mg/dL all other times of the day Blood specimen (specimen) 04/29/2011 11:51 AM EST 04/29/2011 11:51 AM EST Lexi Read MD POINT OF CARE TEST O RDERABLES JOHN EVANSIUM * (ABNORMAL) POCT GLUCOSE LAB USE ONLY (04/29/2011 9:56 AM EST) Glucose, POC 261(H) 60 - 199 mg/dL [facility] Comment: Supplemental ranges: <110 mg/dL before meals <200 mg/dL all other times of the day Blood specimen (specimen) 04/29/2011 9:56 AM EST 04/29/2011 9:56 AM EST Lexi Read MD POINT OF CARE TEST O RDERABLES Performing Organization Address [facility] Co de Phone Number [facility] * (ABNORMAL) POCT GLUCOSE LAB USE ONLY (04/29/2011 7:41 AM EST) Glucose, POC 258(H) 60 - 199 mg/dL [facility] Comment: Supplemental ranges: <110 mg/dL before meals <200 mg/dL all other times of the day Blood specimen (specimen) 04/29/2011 7:41 AM EST 04/29/2011 7:41 AM EST Lexi Read MD POINT OF CARE TEST O RDERABLES Performing Organization Address [facility] Co de Phone Number [facility] * DIFFERENTIAL, AUTOMATED (04/29/2011 5:50 AM EST) Neutrophil % 54.2 34.0 - 71.0 % CERNER MILLENNIUM Neutrophil Absolute 4.63 1.50 - 6.30 x10(3)/mcL CERNER MILLENNIUM Lymph % 32.7 19.0 - 53.0 % CERNER MILLENNIUM Lymphocytes Abs 2.8 1.0 - 3.6 x10(3)/mcL CERNER MILLENNIUM Monocyte % 10.6 4.0 - 13.0 % CERNER MILLENNIUM Monocyte Abs 0.9 0.2 - 1.0 x10(3)/mcL CERNER MILLENNIUM Eos % 2.0 0.0 - 7.0 % CERNER MILLENNIUM Eosinophils Abs 0.2 0.0 - 0.5 x10(3)/mcL CERNER MILLENNIUM Basophil % 0.1 0.0 - 2.0 % CERNER MILLENNIUM Baso Absolute 0.0 0.0 - 0.2 x10(3)/mcL CERNER MILLENNIUM Immature Gran % 0.40 0.00 - 0.66 % CERNER MILLENNIUM Comment: Immature granulocytes(IG's)percentage and absolute count will include metamyelocytes, myelocytes, and promyelocytes. Blood smears from CBCs yielding IG's will be scanned manually for concordance. If this scan disagrees with the automated IG or if promyelocytes are noted, a manual differential will be performed. Immature Gran Absolute 0.03 0.00 - 0.05 x10(3)/mcL CERNER MILLENNIUM Blood specimen (specimen) 04/29/2011 5:50 AM EST 04/29/2011 6:23 AM EST Felix Guzman MD HEMATOLOGY ORDERABLE S CERNER MILLENNIUM * (ABNORMAL) CBC (with Diff) (04/29/2011 5:50 AM EST) White Blood Cell 8.5 4.0 - 10.0 x10(3)/mc L CERNER MILLENNIUM Red Blood Cell 3.92(L) 3.93 - 5.22 x10(6)/mc L CERNER MILLENNIUM Hemoglobin 9.8(L) 11.2 - 15.7 gm/dL CERNER MILLENNIUM Hematocrit 30.7(L) 34.0 - 45.0 % CERNER MILLENNIUM Mean Cell Volume 78.3(L) 79.0 - 94.0 fL CERNER MILLENNIUM Mean Cell Hemoglobin 25.0(L) 26.6 - 32.2 pg CERNER MILLENNIUM Mean Cell Hemoglobin Concentration 31.9(L) 32.0 - 36.5 gm/dL CERNER MILLENNIUM Platelet 315 145 - 370 x10(3)/mc L CERNER MILLENNIUM RDW Standard Deviation 50.9(H) 35.0 - 46.0 fL CERNER MILLENNIUM RDW coefficient of variation 18.6(H) 10.9 - 14.4 % CERNER MILLENNIUM Mean Platelet Volume 10.4 9.0 - 12.0 fL CERNER MILLENNIUM Blood specimen (specimen) 04/29/2011 5:50 AM EST 04/29/2011 6:23 AM EST Felix Guzman MD HEMATOLOGY ORDERABLE S CERNER MILLENNIUM * (ABNORMAL) BMP w/fasting Glucose (04/29/2011 5:50 AM EST) Glucose Fasting 180(H) 65 - 99 mg/dL CERNER MILLENNIUM Comment: ?Fasting* Glucose Interpretive Criteria Normal ?65-99 [...] of Diabetes Mellitus, Position Statement from the [place] [employer]. ??Diabetes Care, Volume 33, Supplement 1, Apr 2009 Blood Urea Nitrogen 12 8 - 18 mg/dL CERNER MILLENNIUM Creatinine 0.86 0.70 - 1.20 mg/dL CERNER MILLENNIUM Sodium 137 135 - 145 mmol/L CERNER MILLENNIUM Potassium 4.1 3.5 - 5.0 mmol/L CERNER MILLENNIUM Comment: Please note: ??Patients with WBC >100,000 may have falsely elevated Potassium levels. ??For accurate Potassium quantification in these patients send serum separator tube (gold top) for subsequent determinations. ??Contact the Clinical Chemistry Laboratory if there are any questions. Chloride 98 98 - 107 mmol/L CERNER MILLENNIUM Carbon Dioxide 34(H) 22 - 31 mmol/L CERNER MILLENNIUM Anion Gap 5 5 - 15 mmol/L CERNER MILLENNIUM Calcium 8.4(L) 8.5 - 10.5 mg/dL CERNER MILLENNIUM Est Glomerular Filtration Rate >60 >=60 [facility] Comment: The National Kidney Disease Education Program [...] disease. References: http://nkdep.nih.gov/resources/NKDEP_Suggestn4Labs_0606_508.pdf http://www.kidney.org/professionals/kls/pdf/faq_gfr.pdf Blood specimen (specimen) 04/29/2011 5:50 AM EST 04/29/2011 6:23 AM EST Felix Guzman MD CHEMISTRY ORDERABLES [facility] * POCT GLUCOSE LAB USE ONLY (04/29/2011 4:26 AM EST) [facility] Signature Glucose, POC 159 60 - 199 mg/dL [facility] Comment: Supplemental ranges: <110 mg/dL before meals <200 mg/dL all other times of the day Blood specimen (specimen) 04/29/2011 4:26 AM EST 04/29/2011 4:26 AM EST Lexi Read MD POINT OF CARE TEST O RDERABLES Performing Organization Address [facility] Co de Phone Number [facility] * POCT GLUCOSE LAB USE ONLY (04/29/2011 2:13 AM EST) Glucose, POC 166 60 - 199 mg/dL [facility] Comment: Supplemental ranges: <110 mg/dL before meals <200 mg/dL all other times of the day Blood specimen (specimen) 04/29/2011 2:13 AM EST 04/29/2011 2:13 AM EST Lexi Read MD POINT OF CARE TEST O RDERARADHA Performing Organization Address [facility] de Phone Number [facility] * (ABNORMAL) POCT GLUCOSE LAB USE ONLY (04/29/2011 12:08 AM EST) Glucose, POC 259(H) 60 - 199 mg/dL [facility] Comment: Supplemental ranges: <110 mg/dL before meals <200 mg/dL all other times of the day Blood specimen (specimen) 04/29/2011 12:08 AM EST 04/29/2011 12:08 AM EST Lexi Read MD POINT OF CARE TEST O JESSICA Performing Organization Address [facility] de Phone Number [facility] * POCT GLUCOSE LAB USE ONLY (04/28/2011 8:20 PM EST) Glucose, POC 168 60 - 199 mg/dL [facility] Comment: Supplemental ranges: <110 mg/dL before meals <200 mg/dL all other times of the day Blood specimen (specimen) 04/28/2011 8:20 PM EST 04/28/2011 8:20 PM EST Lexi Read MD POINT OF CARE TEST O RDERABLES Performing Organization Address [facility] Co de Phone Number [facility] * (ABNORMAL) POCT GLUCOSE LAB USE ONLY (04/28/2011 4:05 PM EST) Glucose, POC 228(H) 60 - 199 mg/dL CERNER MILLENNIUM Comment: Supplemental ranges: <110 mg/dL before meals <200 mg/dL all other times of the day Blood specimen (specimen) 04/28/2011 4:05 PM EST 04/28/2011 4:05 PM EST Lexi Read MD POINT OF CARE TEST O RDERABLES Performing Organization Address City/[facility]/ZIP Co de Phone Number CERNER MILLENNIUM * (ABNORMAL) POCT GLUCOSE LAB USE ONLY (04/28/2011 1:55 PM EST) Glucose, POC 346(H) 60 - 199 mg/dL CERNER MILLENNIUM Comment: Supplemental ranges: <110 mg/dL before meals <200 mg/dL all other times of the day Blood specimen (specimen) 04/28/2011 1:55 PM EST 04/28/2011 1:55 PM EST Lexi Read MD POINT OF CARE TEST O JESSICA Performing Organization Address [facility]/ZIP Co de Phone Number CERNER MILLENNIUM * DIFFERENTIAL, AUTOMATED (04/28/2011 11:22 AM EST) Neutrophil % 62.2 34.0 - 71.0 % CERNER MILLENNIUM Neutrophil Absolute 5.08 1.50 - 6.30 x10(3)/mcL CERNER MILLENNIUM Lymph % 25.0 19.0 - 53.0 % CERNER MILLENNIUM Lymphocytes Abs 2.0 1.0 - 3.6 x10(3)/mcL CERNER MILLENNIUM Monocyte % 10.2 4.0 - 13.0 % CERNER MILLENNIUM Monocyte Abs 0.8 0.2 - 1.0 x10(3)/mcL CERNER MILLENNIUM Eos % 2.1 0.0 - 7.0 % CERNER MILLENNIUM Eosinophils Abs 0.2 0.0 - 0.5 x10(3)/mcL CERNER MILLENNIUM Basophil % 0.1 0.0 - 2.0 % CERNER MILLENNIUM Baso Absolute 0.0 0.0 - 0.2 x10(3)/mcL CERNER MILLENNIUM Immature Gran % 0.40 0.00 - 0.66 % CERNER MILLENNIUM Comment: Immature granulocytes(IG's)percentage and absolute count will include metamyelocytes, myelocytes, and promyelocytes. Blood smears from CBCs yielding IG's will be scanned manually for concordance. If this scan disagrees with the automated IG or if promyelocytes are noted, a manual differential will be performed. Immature Gran Absolute 0.03 0.00 - 0.05 x10(3)/mcL CERNER MILLENNIUM Blood specimen (specimen) 04/28/2011 11:22 AM EST 04/28/2011 11:30 AM EST Felix Guzman MD HEMATOLOGY ORDERABLE S CERNER MILLENNIUM * (ABNORMAL) CBC (with Diff) (04/28/2011 11:22 AM EST) White Blood Cell 8.2 4.0 - 10.0 x10(3)/mc L CERNER MILLENNIUM Red Blood Cell 4.21 3.93 - 5.22 x10(6)/mc L CERNER MILLENNIUM Hemoglobin 10.4(L) 11.2 - 15.7 gm/dL CERNER MILLENNIUM Hematocrit 32.9(L) 34.0 - 45.0 % CERNER MILLENNIUM Mean Cell Volume 78.1(L) 79.0 - 94.0 fL CERNER MILLENNIUM Mean Cell Hemoglobin 24.7(L) 26.6 - 32.2 pg CERNER MILLENNIUM Mean Cell Hemoglobin Concentration 31.6(L) 32.0 - 36.5 gm/dL CERNER MILLENNIUM Platelet 311 145 - 370 x10(3)/mc L CERNER MILLENNIUM RDW Standard Deviation 49.8(H) 35.0 - 46.0 fL CERNER MILLENNIUM RDW coefficient of variation 18.3(H) 10.9 - 14.4 % CERNER MILLENNIUM Mean Platelet Volume 10.2 9.0 - 12.0 fL CERNER MILLENNIUM Blood specimen (specimen) 04/28/2011 11:22 AM EST 04/28/2011 11:30 AM EST Felix Guzman MD HEMATOLOGY ORDERABLE S CERNER MILLENNIUM * (ABNORMAL) BMP w/fasting Glucose (04/28/2011 11:22 AM EST) Glucose Fasting 346(H) 65 - 99 mg/dL CERNER MILLENNIUM Comment: ?Fasting* Glucose Interpretive Criteria Normal ?65-99 [...] of Diabetes Mellitus, Position Statement from the [place] [employer]. ??Diabetes Care, Volume 33, Supplement 1, Apr 2009 Blood Urea Nitrogen 8 8 - 18 mg/dL CERNER MILLENNIUM Creatinine 0.86 0.70 - 1.20 mg/dL CERNER MILLENNIUM Sodium 133(L) 135 - 145 mmol/L CERNER MILLENNIUM Potassium 4.3 3.5 - 5.0 mmol/L CERNER MILLENNIUM Comment: Please note: ??Patients with WBC >100,000 may have falsely elevated Potassium levels. ??For accurate Potassium quantification in these patients send serum separator tube (gold top) for subsequent determinations. ??Contact the Clinical Chemistry Laboratory if there are any questions. Chloride 93(L) 98 - 107 mmol/L CERNER MILLENNIUM Carbon [...] disease. References: http://nkdep.nih.gov/resources/NKDEP_Suggestn4Labs_0606_508.pdf http://www.kidney.org/professionals/kls/pdf/faq_gfr.pdf Blood specimen (specimen) 04/28/2011 11:22 AM EST 04/28/2011 11:30 AM EST Felix Guzman MD CHEMISTRY ORDERABLES Performing Organization Address [facility] de Phone Number [facility] [employer] * (ABNORMAL) POCT GLUCOSE LAB USE ONLY (04/28/2011 11:13 AM EST) [facility] Signature Glucose, POC 354(H) 60 - 199 mg/dL [facility] Comment: Supplemental ranges: <110 mg/dL before meals <200 mg/dL all other times of the day Blood specimen (specimen) 04/28/2011 11:13 AM EST 04/28/2011 11:13 AM EST Lexi Read MD POINT OF CARE TEST O RDERABLES Performing Organization Address [facility] Co de Phone Number [facility] 23pressSUMMIT HEALTH[facility] REGIONAL MEDICAL [email or web address] * (ABNORMAL) POCT GLUCOSE LAB USE ONLY (04/28/2011 9:35 AM EST) Glucose, POC 315(H) 60 - 199 mg/dL [facility] Comment: Supplemental ranges: <110 mg/dL before meals <200 mg/dL all other times of the day Blood specimen (specimen) 04/28/2011 9:35 AM EST 04/28/2011 9:35 AM EST Lexi Read MD POINT OF CARE TEST O JESSICA Performing Organization Address [facility] de Phone Number [facility] * POCT GLUCOSE LAB USE ONLY (04/28/2011 7:33 AM EST) Glucose, POC 136 60 - 199 mg/dL [facility] Comment: Supplemental ranges: <110 mg/dL before meals <200 mg/dL all other times of the day Blood specimen (specimen) 04/28/2011 7:33 AM EST 04/28/2011 7:33 AM EST Narrative Authorizing Provider Result Flavia Read MD POINT OF CARE TEST O JESSICA Performing Organization Address [facility] de Phone Number [facility] * POCT GLUCOSE LAB USE ONLY (04/28/2011 4:29 AM EST) Glucose, POC 120 60 - 199 mg/dL [facility] Comment: Supplemental ranges: <110 mg/dL before meals <200 mg/dL all other times of the day Blood specimen (specimen) 04/28/2011 4:29 AM EST 04/28/2011 4:29 AM EST Narrative Authorizing Provider Result Flavia Read MD POINT OF CARE TEST O JESSICA Performing Organization Address [facility] de Phone Number [facility] * POCT GLUCOSE LAB USE ONLY (04/27/2011 11:45 PM EST) Glucose, POC 138 60 - 199 mg/dL [facility] Comment: Supplemental ranges: <110 mg/dL before meals <200 mg/dL all other times of the day Blood specimen (specimen) 04/27/2011 11:45 PM EST 04/27/2011 11:45 PM EST Lexi Read MD POINT OF CARE TEST O RDERABLES Performing Organization Address [facility] de Phone Number [facility] * POCT GLUCOSE LAB USE ONLY (04/27/2011 8:11 PM EST) Glucose, POC 114 60 - 199 mg/dL [facility] Comment: Supplemental ranges: <110 mg/dL before meals <200 mg/dL all other times of the day Blood specimen (specimen) 04/27/2011 8:11 PM EST 04/27/2011 8:11 PM EST Lexi Read MD POINT OF CARE TEST O RDERARADHA Performing Organization Address [facility] de Phone Number [facility] SRIDHARSUMMIT [facility]ENTERIUM * (ABNORMAL) POCT GLUCOSE LAB USE ONLY (04/27/2011 4:36 PM EST) Glucose, POC 203(H) 60 - 199 mg/dL [facility] MILLENNIUM Comment: Supplemental ranges: <110 mg/dL before meals <200 mg/dL all other times of the day Blood specimen (specimen) 04/27/2011 4:36 PM EST 04/27/2011 4:36 PM EST Lexi Read MD POINT OF CARE TEST O RDERARADHA Performing Organization Address [facility] de Phone Number [facility] SRIDHARSUMMIT [facility]ENTERIUM * (ABNORMAL) POCT GLUCOSE LAB USE ONLY (04/27/2011 11:37 AM EST) Glucose, POC 201(H) 60 - 199 mg/dL [facility] 23pressENNIUM Comment: Supplemental ranges: <110 mg/dL before meals <200 mg/dL all other times of the day Blood specimen (specimen) 04/27/2011 11:37 AM EST 04/27/2011 11:37 AM EST Lexi Read MD POINT OF CARE TEST O RDERABLES CERMAGDALENA EVANSIUM * DIFFERENTIAL, AUTOMATED (04/27/2011 8:30 AM EST) Neutrophil % 49.1 34.0 - 71.0 % CERNER MILLENNIUM Neutrophil Absolute 3.35 1.50 - 6.30 x10(3)/mcL CERNER MILLENNIUM Lymph % 35.4 19.0 - 53.0 % CERNER MILLENNIUM Lymphocytes Abs 2.4 1.0 - 3.6 x10(3)/mcL CERNER MILLENNIUM Monocyte % 10.4 4.0 - 13.0 % CERNER MILLENNIUM Monocyte Abs 0.7 0.2 - 1.0 x10(3)/mcL CERNER MILLENNIUM Eos % 4.4 0.0 - 7.0 % CERNER MILLENNIUM Eosinophils Abs 0.3 0.0 - 0.5 x10(3)/mcL CERNER MILLENNIUM Basophil % 0.1 0.0 - 2.0 % CERNER MILLENNIUM Baso Absolute 0.0 0.0 - 0.2 x10(3)/mcL CERNER MILLENNIUM Immature Gran % 0.60 0.00 - 0.66 % CERNER MILLENNIUM Comment: Immature granulocytes(IG's)percentage and absolute count will include metamyelocytes, myelocytes, and promyelocytes. Blood smears from CBCs yielding IG's will be scanned manually for concordance. If this scan disagrees with the automated IG or if promyelocytes are noted, a manual differential will be performed. Immature Gran Absolute 0.04 0.00 - 0.05 x10(3)/mcL CERNER MILLENNIUM Blood specimen (specimen) 04/27/2011 8:30 AM EST 04/27/2011 8:38 AM EST Felix Guzman MD HEMATOLOGY ORDERABLE S [facility]ERMAG[facility]ALENA EVANSI[facility] * (ABNORMAL) CBC (with Diff) (04/27/2011 8:30 AM EST) White Blood Cell 6.8 4.0 - 10.0 x10(3)/mc L CERNER MILLENNIUM Red Blood Cell 3.94 3.93 - 5.22 x10(6)/mc L CERNER MILLENNIUM Hemoglobin 9.6(L) 11.2 - 15.7 gm/dL CERNER MILLENNIUM Hematocrit 30.5(L) 34.0 - 45.0 % CERNER MILLENNIUM Mean Cell Volume 77.4(L) 79.0 - 94.0 fL CERNER MILLENNIUM Mean Cell Hemoglobin 24.4(L) 26.6 - 32.2 pg CERNER MILLENNIUM Mean Cell Hemoglobin Concentration 31.5(L) 32.0 - 36.5 gm/dL CERNER MILLENNIUM Platelet 245 145 - 370 x10(3)/mc L CERNER MILLENNIUM RDW Standard Deviation 47.9(H) 35.0 - 46.0 fL CERNER MILLENNIUM RDW coefficient of variation 17.9(H) 10.9 - 14.4 % CERNER MILLENNIUM Mean Platelet Volume 10.7 9.0 - 12.0 fL CERNER MILLENNIUM Blood specimen (specimen) 04/27/2011 8:30 AM EST 04/27/2011 8:38 AM EST Felix Guzman MD HEMATOLOGY ORDERABLE S [facility] * (ABNORMAL) BMP w/fasting Glucose (04/27/2011 8:30 AM EST) Glucose Fasting 277(H) 65 - 99 mg/dL CERNER MILLENNIUM Comment: ?Fasting* Glucose Interpretive Criteria Normal ?65-99 [...] of Diabetes Mellitus, Position Statement from the [place] [employer]. ??Diabetes Care, Volume 33, Supplement 1, Apr 2009 Blood Urea Nitrogen 7(L) 8 - 18 mg/dL CERNER MILLENNIUM Creatinine 0.75 0.70 - 1.20 mg/dL CERNER MILLENNIUM Sodium 136 135 - 145 mmol/L CERNER MILLENNIUM Potassium 3.7 3.5 - 5.0 mmol/L CERNER MILLENNIUM Comment: [...] 5 - 15 mmol/L CERNER MILLENNIUM Calcium 8.2(L) 8.5 - 10.5 mg/dL CERNER MILLENNIUM Est [...] disease. References: http://nkdep.nih.gov/resources/NKDEP_Suggestn4Labs_0606_508.pdf http://www.kidney.org/professionals/kls/pdf/faq_gfr.pdf Blood specimen (specimen) 04/27/2011 8:30 AM EST 04/27/2011 8:38 AM EST Felix Guzman MD CHEMISTRY ORDERABLES Performing Organization Address [facility] Phone Number [facility] * (ABNORMAL) POCT GLUCOSE LAB USE ONLY (04/27/2011 7:48 AM EST) Glucose, POC 269(H) 60 - 199 mg/dL [facility] Comment: Supplemental ranges: <110 mg/dL before meals <200 mg/dL all other times of the day Blood specimen (specimen) 04/27/2011 7:48 AM EST 04/27/2011 7:48 AM EST Lexi Read MD POINT OF CARE TEST O RDERABLES Performing Organization Address [facility] Phone Number [facility] * POCT GLUCOSE LAB USE ONLY (04/27/2011 3:47 AM EST) Glucose, POC 76 60 - 199 mg/dL [facility] Comment: Supplemental ranges: <110 mg/dL before meals <200 mg/dL all other times of the day Blood specimen (specimen) 04/27/2011 3:47 AM EST 04/27/2011 3:47 AM EST Lexi Read MD POINT OF CARE TEST O JESSICA Performing Organization Address [facility] Phone Number [facility] * POCT GLUCOSE LAB USE ONLY (04/26/2011 11:53 PM EST) Glucose, POC 114 60 - 199 mg/dL [facility] Comment: Supplemental ranges: <110 mg/dL before meals <200 mg/dL all other times of the day Blood specimen (specimen) 04/26/2011 11:53 PM EST 04/26/2011 11:53 PM EST Lexi Read MD POINT OF CARE TEST O RDERABLES Performing Organization Address City/[facility]/ZIP Co de Phone Number [facility] * (ABNORMAL) POCT GLUCOSE LAB USE ONLY (04/26/2011 8:02 PM EST) Glucose, POC 228(H) 60 - 199 mg/dL [facility] MILLENNIUM Comment: Supplemental ranges: <110 mg/dL before meals <200 mg/dL all other times of the day Blood specimen (specimen) 04/26/2011 8:02 PM EST 04/26/2011 8:02 PM EST Lexi Read MD POINT OF CARE TEST O RDERABLES Performing Organization Address [facility] de Phone Number [facility]ERMAGDALENA WALLERENNIUM * (ABNORMAL) POCT GLUCOSE LAB USE ONLY (04/26/2011 4:02 PM EST) Glucose, POC 205(H) 60 - 199 mg/dL [facility] Comment: Supplemental ranges: <110 mg/dL before meals <200 mg/dL all other times of the day Blood specimen (specimen) 04/26/2011 4:02 PM EST 04/26/2011 4:02 PM EST Lexi Read MD POINT OF CARE TEST O RDERARADHA Performing Organization Address [facility] Co de Phone Number [facility] * POCT GLUCOSE LAB USE ONLY (04/26/2011 11:46 AM EST) Glucose, POC 197 60 - 199 mg/dL [facility] Comment: Supplemental ranges: <110 mg/dL before meals <200 mg/dL all other times of the day Blood specimen (specimen) 04/26/2011 11:46 AM EST 04/26/2011 11:46 AM EST Lexi Read MD POINT OF CARE TEST O RDERABLES Performing Organization Address City/[facility]/ZIP Co de Phone Number [facility] * DIFFERENTIAL, AUTOMATED (04/26/2011 10:30 AM EST) Neutrophil % 52.5 34.0 - 71.0 % CERNER MILLENNIUM Neutrophil Absolute 3.71 1.50 - 6.30 x10(3)/mcL CERNER MILLENNIUM Lymph % 32.2 19.0 - 53.0 % CERNER MILLENNIUM Lymphocytes Abs 2.3 1.0 - 3.6 x10(3)/mcL CERNER MILLENNIUM Monocyte % 10.3 4.0 - 13.0 % CERNER MILLENNIUM Monocyte Abs 0.7 0.2 - 1.0 x10(3)/mcL CERNER MILLENNIUM Eos % 4.4 0.0 - 7.0 % CERNER MILLENNIUM Eosinophils Abs 0.3 0.0 - 0.5 x10(3)/mcL CERNER MILLENNIUM Basophil % 0.0 0.0 - 2.0 % CERNER MILLENNIUM Baso Absolute 0.0 0.0 - 0.2 x10(3)/mcL CERNER MILLENNIUM Immature Gran % 0.60 0.00 - 0.66 % CERNER MILLENNIUM Comment: Immature granulocytes(IG's)percentage and absolute count will include metamyelocytes, myelocytes, and promyelocytes. Blood smears from CBCs yielding IG's will be scanned manually for concordance. If this scan disagrees with the automated IG or if promyelocytes are noted, a manual differential will be performed. Immature Gran Absolute 0.04 0.00 - 0.05 x10(3)/mcL CERNER MILLENNIUM Blood specimen (specimen) 04/26/2011 10:30 AM EST 04/26/2011 11:05 AM EST Felix Guzman MD HEMATOLOGY ORDERABLE S CERMAGDALENA WALLERENNIUM * (ABNORMAL) CBC (with Diff) (04/26/2011 10:30 AM EST) White Blood Cell 7.1 4.0 - 10.0 x10(3)/mc L CERNER MILLENNIUM Red Blood Cell 3.94 3.93 - 5.22 x10(6)/mc L CERNER MILLENNIUM Hemoglobin 9.8(L) 11.2 - 15.7 gm/dL CERNER MILLENNIUM Hematocrit 30.2(L) 34.0 - 45.0 % CERNER MILLENNIUM Mean Cell Volume 76.6(L) 79.0 - 94.0 fL CERNER MILLENNIUM Mean Cell Hemoglobin 24.9(L) 26.6 - 32.2 pg CERNER MILLENNIUM Mean Cell Hemoglobin Concentration 32.5 32.0 - 36.5 gm/dL CERNER MILLENNIUM Platelet 204 145 - 370 x10(3)/mc L CERNER MILLENNIUM RDW Standard Deviation 47.3(H) 35.0 - 46.0 fL CERNER MILLENNIUM RDW coefficient of variation 17.8(H) 10.9 - 14.4 % CERNER MILLENNIUM Mean Platelet Volume 10.9 9.0 - 12.0 fL CERNER MILLENNIUM Blood specimen (specimen) 04/26/2011 10:30 AM EST 04/26/2011 11:05 AM EST Felix Guzman MD HEMATOLOGY ORDERABLE S JOHN WALLERENNIUM * (ABNORMAL) BMP w/fasting Glucose (04/26/2011 10:30 AM EST) Glucose Fasting 196(H) 65 - 99 mg/dL CERNER MILLENNIUM Comment: ?Fasting* Glucose Interpretive Criteria Normal ?65-99 [...] of Diabetes Mellitus, Position Statement from the [place] [employer]. ??Diabetes Care, Volume 33, Supplement 1, Apr 2009 Blood Urea Nitrogen 7(L) 8 - 18 mg/dL CERNER MILLENNIUM Creatinine 0.76 0.70 - 1.20 mg/dL CERNER MILLENNIUM Sodium 136 135 - 145 mmol/L CERNER MILLENNIUM Potassium 3.9 3.5 - 5.0 mmol/L CERNER MILLENNIUM Comment: [...] - 31 mmol/L CERNER MILLENNIUM Anion Gap 4(L) 5 - 15 mmol/L CERNER MILLENNIUM Calcium 8.0(L) 8.5 - 10.5 mg/dL CERNER MILLENNIUM Est [...] disease. References: http://nkdep.nih.gov/resources/NKDEP_Suggestn4Labs_0606_508.pdf http://www.kidney.org/professionals/kls/pdf/faq_gfr.pdf Blood specimen (specimen) 04/26/2011 10:30 AM EST 04/26/2011 11:05 AM EST Felix Guzman MD CHEMISTRY ORDERABLES Performing Organization Address [facility] Phone Number [facility] * (ABNORMAL) CK (04/26/2011 10:30 AM EST) Creatine Kinase 263(H) 0 - 160 unit/L [facility] Blood specimen (specimen) 04/26/2011 10:30 AM EST 04/26/2011 11:05 AM EST Felix Guzman MD CHEMISTRY ORDERABLES Performing Organization Address [facility] Phone Number [facility] * POCT GLUCOSE LAB USE ONLY (04/26/2011 7:48 AM EST) Glucose, POC 179 60 - 199 mg/dL [facility] Comment: Supplemental ranges: <110 mg/dL before meals <200 mg/dL all other times of the day Blood specimen (specimen) 04/26/2011 7:48 AM EST 04/26/2011 7:48 AM EST Lexi Read MD POINT OF CARE TEST O RDERABLES Performing Organization Address [facility] Phone Number [facility] * POCT GLUCOSE LAB USE ONLY (04/26/2011 5:53 AM EST) Glucose, POC 83 60 - 199 mg/dL [facility] Comment: Supplemental ranges: <110 mg/dL before meals <200 mg/dL all other times of the day Blood specimen (specimen) 04/26/2011 5:53 AM EST 04/26/2011 5:53 AM EST Lexi Read MD POINT OF CARE TEST O RDERABLES Performing Organization Address [facility] Co ut Phone Number [facility] * POCT GLUCOSE LAB USE ONLY (04/26/2011 3:42 AM EST) Glucose, POC 94 60 - 199 mg/dL CERNER MILLENNIUM Comment: Supplemental ranges: <110 mg/dL before meals <200 mg/dL all other times of the day Blood specimen (specimen) 04/26/2011 3:42 AM EST 04/26/2011 3:42 AM EST Narrative Authorizing Provider Result Flavia Read MD POINT OF CARE TEST O RDERABLES Performing Organization Address [facility] de Phone Number [facility] * POCT GLUCOSE LAB USE ONLY (04/26/2011 12:06 AM EST) Glucose, POC 138 60 - 199 mg/dL [facility] Comment: Supplemental ranges: <110 mg/dL before meals <200 mg/dL all other times of the day Blood specimen (specimen) 04/26/2011 12:06 AM EST 04/26/2011 12:06 AM EST Narrative Authorizing Provider Result Flavia Read MD POINT OF CARE TEST O RDERARADHA Performing Organization Address [facility] de Phone Number [facility] 23pressSUMMIT [facility]ALTH[facility] CENTERIUM * (ABNORMAL) POCT GLUCOSE LAB USE ONLY (04/25/2011 8:32 PM EST) Glucose, POC 222(H) 60 - 199 mg/dL [facility] Comment: Supplemental ranges: <110 mg/dL before meals <200 mg/dL all other times of the day Blood specimen (specimen) 04/25/2011 8:32 PM EST 04/25/2011 8:32 PM EST Narrative Authorizing Provider Result Flavia Read MD POINT OF CARE TEST O RDERARADHA Performing Organization Address [facility] de Phone Number [facility] 23pressSUMMIT HEALTH[facility]ENTERIUM * POCT GLUCOSE LAB USE ONLY (04/25/2011 4:48 PM EST) Glucose, POC 184 60 - 199 mg/dL [facility] Comment: Supplemental ranges: <110 mg/dL before meals <200 mg/dL all other times of the day Blood specimen (specimen) 04/25/2011 4:48 PM EST 04/25/2011 4:48 PM EST Lexi Read MD POINT OF CARE TEST O RDERABLES [facility] * XR CHEST ROUTINE PA & LATERAL (04/25/2011 3:45 PM EST) Anatomical Region Laterality Modality Chest N/A Radiographic Michelle ging 04/25/2011 3:45 PM EST Impressions 04/28/2011 8:24 AM EST IMPRESSION: ?? Resolved pulmonary airspace opacity, iuzux-[id number]-[id number] bilateral effusion seen posteriorly. Narrative 04/28/2011 8:24 AM EST TWO-VIEW CHEST: INDICATION: ??Pulmonary infiltrates. ?? TECHNIQUE: ??AP and lateral semiupright views on a stretcher are compared to 04/21/11 portable chest radiograph. ?? FINDINGS: ??With the exception of a left IJ line, other equipment has been removed. The previously seen upper lung and perihilar airspace opacities have resolved. No new airspace opacities are seen. However, there are bilateral lcptj-vu-nyqgxatr posteriorly layering pleural effusions, best seen on the lateral radiograph. ?? Procedure Note Leanne Glover MD - 04/28/2011 TWO-VIEW CHEST: INDICATION: Pulmonary infiltrates. TECHNIQUE: AP and lateral semiupright views on a stretcher are comparedto 04/21/11 portable chest radiograph. FINDINGS: With the exception of a left IJ line, other equipment has been removed. The previously seen upper lung and perihilar airspace opacitieshave resolved. No new airspace opacities are seen. However, there are bilateral tlgyr-gr-lddzpouh posteriorly layering pleural effusions, best seen on the lateral radiograph. IMPRESSION IMPRESSION: Resolved pulmonary airspace opacity, xbihq-hg-ovycnsdh bilateral effusionseen posteriorly. Felix Guzman MD IMG DX ORDERABLES * POCT GLUCOSE LAB USE ONLY (04/25/2011 12:21 PM EST) Glucose, POC 176 60 - 199 mg/dL [facility] Comment: Supplemental ranges: <110 mg/dL before meals <200 mg/dL all other times of the day Blood specimen (specimen) 04/25/2011 12:21 PM EST 04/25/2011 12:21 PM EST Lexi Read MD POINT OF CARE TEST O JESSICA [facility] * UPPER GI ENDOSCOPY (04/25/2011 10:23 AM EST) Pathologist [facility] UPPER GI ENDOSCOPY [facility] Endoscopy ___ Patient Name: Roxann Baxter ? Procedure Date: 04/25/2011 10:23 AM ? Date of : 1955 ? Age: 55 ? Order #: [id number] ? ___ Procedure: ? Upper GI endoscopy Indications: ? Diagnostic procedure, Previous coffee ? grounds per NG tube while intuabted Providers: ? Devin Bob MD, Nathaniel Nicole, ? RN, Boy Ford RN, Wilian Thompson ? MD Ramirez Referring : ?Harman Davis MD Medicines: ? Fentanyl 100 micrograms IV, Midazolam ? 3 mg IV Complications: ? No immediate complications. ___ Procedure: ? Pre-Anesthesia Assessment: ? - Prior to the procedure, a History ? and Physical was performed, and ? patient medications, allergies and ? sensitivities have been reviewed. The ? patient's tolerance of previous ? anesthesia has been reviewed. ? - The risks and benefits of the ? procedure and the sedation options ? and risks were discussed with the ? patient. All questions were answered ? and informed consent was obtained. ? - Mental Status Examination: alert ? and oriented. Airway Examination: ? normal oropharyngeal airway and neck ? mobility. Respiratory Examination: ? clear to auscultation. CV ? Examination: normal. ? - ASA Grade Assessment: III - A ? patient with severe systemic disease. ? - The anesthesia plan was to [...] ? procedure fairly well. ? Findings: ? A large hiatus hernia was found. The proximal extent ? of the gastric folds (end of tubular esophagus) was ? 32 to 39 cm from the incisors. The hiatal narrowing ? was 39 cm from the incisors. The Z-line was 32 cm ? from the incisors. A widely patent Schatzki ring ? (acquired) was found at the gastroesophageal ? junction. LA Grade C (one or more mucosal breaks ? continuous between tops of 2 or more mucosal folds, ? less than 75% circumference) esophagitis with no ? bleeding was found in the lower third of the ? esophagus. Multiple 5 mm polyps were found in the ? gastric fundus and in the gastric body consitent with ? fundic gland polyps. there was some mild oozing from ? some. ? Mild linear gastritis from previous NG tube. The exam ? of the stomach was otherwise normal. The examined ? duodenum was normal. ? Impression: ?- Hiatal hernia from 32-39. ? - Widely patent Schatzki ring. ? - LA Grade C reflux esophagitis. ? - Multiple gastric polyps consistent ? with fundic gland polyps ? - Mild gastritis with linear erosions ? consistent with NG trauma. ? - Normal examined duodenum. Recommendation: ?- Return patient to hospital ycr for ? ongoing care. ? - BID PPI x 8 weeks then daily ? - The attending physician listed ? above was present for the entire ? procedure. ? Devin Bob MD 04/25/2011 11:24 AM Number of Addenda: 0 Note Initiated On: 04/25/2011 10:23 AM [employer] 04/25/2011 10:2 3 AM EST Felix Guzman MD GENERAL SURGICAL ORD ERABLES [employer] * POCT GLUCOSE LAB USE ONLY (04/25/2011 10:16 AM EST) Glucose, POC 152 60 - 199 mg/dL [facility] Comment: Supplemental ranges: <110 mg/dL before meals <200 mg/dL all other times of the day Blood specimen (specimen) 04/25/2011 10:16 AM EST 04/25/2011 10:16 AM EST Lexi Read MD POINT OF CARE TEST O RDKATHY Performing Organization Address [facility] de Phone Number [facility] * POCT GLUCOSE LAB USE ONLY (04/25/2011 8:00 AM EST) Glucose, POC 163 60 - 199 mg/dL [facility] Comment: Supplemental ranges: <110 mg/dL before meals <200 mg/dL all other times of the day Blood specimen (specimen) 04/25/2011 8:00 AM EST 04/25/2011 8:00 AM EST Lexi Read MD POINT OF CARE TEST O RDERARADHA Performing Organization Address [facility] de Phone Number [facility] * DIFFERENTIAL, AUTOMATED (04/25/2011 7:00 AM EST) Neutrophil % 63.6 34.0 - 71.0 % [facility] Neutrophil Absolute 5.06 1.50 - 6.30 x10(3)/mcL CERNER MILLENNIUM Lymph % 24.1 19.0 - 53.0 % CERNER MILLENNIUM Lymphocytes Abs 1.9 1.0 - 3.6 x10(3)/mcL CERNER MILLENNIUM Monocyte % 9.8 4.0 - 13.0 % CERNER MILLENNIUM Monocyte Abs 0.8 0.2 - 1.0 x10(3)/mcL CERNER MILLENNIUM Eos % 2.0 0.0 - 7.0 % CERNER MILLENNIUM Eosinophils Abs 0.2 0.0 - 0.5 x10(3)/mcL CERNER MILLENNIUM Basophil % 0.0 0.0 - 2.0 % CERNER MILLENNIUM Baso Absolute 0.0 0.0 - 0.2 x10(3)/mcL CERNER MILLENNIUM Immature Gran % 0.50 0.00 - 0.66 % CERNER MILLENNIUM Comment: Immature granulocytes(IG's)percentage and absolute count will include metamyelocytes, myelocytes, and promyelocytes. Blood smears from CBCs yielding IG's will be scanned manually for concordance. If this scan disagrees with the automated IG or if promyelocytes are noted, a manual differential will be performed. Immature Gran Absolute 0.04 0.00 - 0.05 x10(3)/mcL CERNER MILLENNIUM Blood specimen (specimen) 04/25/2011 7:00 AM EST 04/25/2011 7:10 AM EST Felix Guzman MD HEMATOLOGY ORDERABLE S CERNER MILLENNIUM * (ABNORMAL) CBC (with Diff) (04/25/2011 7:00 AM EST) White Blood Cell 8.0 4.0 - 10.0 x10(3)/mc L CERNER MILLENNIUM Red Blood Cell 3.78(L) 3.93 - 5.22 x10(6)/mc L CERNER MILLENNIUM Hemoglobin 9.4(L) 11.2 - 15.7 gm/dL CERNER MILLENNIUM Hematocrit 28.9(L) 34.0 - 45.0 % CERNER MILLENNIUM Mean Cell Volume 76.5(L) 79.0 - 94.0 fL CERNER MILLENNIUM Mean Cell Hemoglobin 24.9(L) 26.6 - 32.2 pg CERNER MILLENNIUM Mean Cell Hemoglobin Concentration 32.5 32.0 - 36.5 gm/dL CERNER MILLENNIUM Platelet 161 145 - 370 x10(3)/mc L CERNER MILLENNIUM RDW Standard Deviation 47.1(H) 35.0 - 46.0 fL CERNER MILLENNIUM RDW coefficient of variation 17.2(H) 10.9 - 14.4 % CERNER MILLENNIUM Mean Platelet Volume 10.1 9.0 - 12.0 fL CERNER MILLENNIUM Blood specimen (specimen) 04/25/2011 7:00 AM EST 04/25/2011 7:10 AM EST Felix Guzman MD HEMATOLOGY ORDERABLE S [facility]ERN[facility] MILLENNIUM * (ABNORMAL) BMP w/fasting Glucose (04/25/2011 7:00 AM EST) Glucose Fasting 151(H) 65 - 99 mg/dL CERNER MILLENNIUM Comment: ?Fasting* Glucose Interpretive Criteria Normal ?65-99 [...] of Diabetes Mellitus, Position Statement from the [place] [employer]. ??Diabetes Care, Volume 33, Supplement 1, Apr 2009 Blood Urea Nitrogen 8 8 - 18 mg/dL CERNER MILLENNIUM Creatinine 0.58(L) 0.70 - 1.20 mg/dL CERNER MILLENNIUM Sodium 143 135 - 145 mmol/L CERNER MILLENNIUM Potassium 3.8 3.5 - 5.0 mmol/L CERNER MILLENNIUM Comment: delta result rechecked-eds Please note: ??Patients with WBC >100,000 may have falsely elevated Potassium levels. ??For accurate Potassium quantification in these patients send serum separator tube (gold top) for subsequent determinations. ??Contact the Clinical Chemistry Laboratory if there are any questions. Chloride 108(H) 98 - 107 mmol/L CERNER MILLENNIUM Carbon Dioxide 29 22 - 31 mmol/L CERNER MILLENNIUM Anion Gap 6 5 - 15 mmol/L CERNER MILLENNIUM Calcium 7.5(L) 8.5 - 10.5 mg/dL CERNER MILLENNIUM Est [...] disease. References: http://nkdep.nih.gov/resources/NKDEP_Suggestn4Labs_0606_508.pdf http://www.kidney.org/professionals/kls/pdf/faq_gfr.pdf Blood specimen (specimen) 04/25/2011 7:00 AM EST 04/25/2011 7:10 AM EST Felix Guzman MD CHEMISTRY ORDERABLES [facility] * (ABNORMAL) CK (04/25/2011 7:00 AM EST) Creatine Kinase 374(H) 0 - 160 unit/L [facility] Blood specimen (specimen) 04/25/2011 7:00 AM EST 04/25/2011 7:10 AM EST Felix Guzman MD CHEMISTRY ORDERABLES Performing Organization Address [facility] de Phone Number [facility] * POCT GLUCOSE LAB USE ONLY (04/25/2011 4:29 AM EST) Glucose, POC 75 60 - 199 mg/dL [facility] Comment: Supplemental ranges: <110 mg/dL before meals <200 mg/dL all other times of the day Blood specimen (specimen) 04/25/2011 4:29 AM EST 04/25/2011 4:29 AM EST Lexi Read MD POINT OF CARE TEST O RDERABLES Performing Organization Address [facility] de Phone Number [facility] * POCT GLUCOSE LAB USE ONLY (04/24/2011 11:31 PM EST) Glucose, POC 103 60 - 199 mg/dL [facility] Comment: Supplemental ranges: <110 mg/dL before meals <200 mg/dL all other times of the day Blood specimen (specimen) 04/24/2011 11:31 PM EST 04/24/2011 11:31 PM EST Lexi Read MD POINT OF CARE TEST O RDERABLES Performing Organization Address [facility] de Phone Number [facility] * (ABNORMAL) POCT GLUCOSE LAB USE ONLY (04/24/2011 7:44 PM EST) Glucose, POC 212(H) 60 - 199 mg/dL [facility] Comment: Supplemental ranges: <110 mg/dL before meals <200 mg/dL all other times of the day Blood specimen (specimen) 04/24/2011 7:44 PM EST 04/24/2011 7:44 PM EST Lexi Read MD POINT OF CARE TEST O RDERABLES Performing Organization Address [facility] de Phone Number [facility] [employer] * POCT GLUCOSE LAB USE ONLY (04/24/2011 5:05 PM EST) Glucose, POC 121 60 - 199 mg/dL [facility] Comment: Supplemental ranges: <110 mg/dL before meals <200 mg/dL all other times of the day Blood specimen (specimen) 04/24/2011 5:05 PM EST 04/24/2011 5:05 PM EST Lexi Read MD POINT OF CARE TEST O RDERARADHA Performing Organization Address [facility] de Phone Number [facility] 23pressENNIUM * POCT GLUCOSE LAB USE ONLY (04/24/2011 2:45 PM EST) Glucose, POC 145 60 - 199 mg/dL [facility] Comment: Supplemental ranges: <110 mg/dL before meals <200 mg/dL all other times of the day Blood specimen (specimen) 04/24/2011 2:45 PM EST 04/24/2011 2:45 PM EST Lexi Read MD POINT OF CARE TEST O RDERARADHA Performing Organization Address [facility] de Phone Number [facility] 23pressENNIUM * POCT GLUCOSE LAB USE ONLY (04/24/2011 11:33 AM EST) Glucose, POC 161 60 - 199 mg/dL [facility]ERN[facility] MILLENNIUM Comment: Supplemental ranges: <110 mg/dL before meals <200 mg/dL all other times of the day Blood specimen (specimen) 04/24/2011 11:33 AM EST 04/24/2011 11:33 AM EST Lexi Read MD POINT OF CARE TEST O RDERABLES Performing Organization Address [facility] de Phone Number [facility] * POCT GLUCOSE LAB USE ONLY (04/24/2011 7:35 AM EST) [facility] Glucose, POC 113 60 - 199 mg/dL [facility] SRIDHARSUMMIT [facility]ALTH[facility] CENTERIUM Comment: Supplemental ranges: <110 mg/dL before meals <200 mg/dL all other times of the day Blood specimen (specimen) 04/24/2011 7:35 AM EST 04/24/2011 7:35 AM EST Lexi Read MD POINT OF CARE TEST O RDERABLES Performing Organization Address [facility] Co de Phone Number [facility] SRIDHARJACOBS [facility] * MAGNESIUM (04/24/2011 6:10 AM EST) [facility] Magnesium 0.71 0.69 - 1.07 mmol/L [facility] Blood specimen (specimen) 04/24/2011 6:10 AM EST 04/24/2011 6:30 AM EST Felix Guzman MD CHEMISTRY ORDERABLES Performing Organization Address [facility] Co de Phone Number [facility] SRIDHARSUMMIT [facility] MED[facility] CENTERKP * DIFFERENTIAL, AUTOMATED (04/24/2011 6:10 AM EST) [facility] Neutrophil % 62.3 34.0 - 71.0 % CERNER MILLENNIUM Neutrophil Absolute 6.12 1.50 - 6.30 x10(3)/mcL CERNER MILLENNIUM Lymph % 29.4 19.0 - 53.0 % CERNER MILLENNIUM Lymphocytes Abs 2.9 1.0 - 3.6 x10(3)/mcL CERNER MILLENNIUM Monocyte % 7.7 4.0 - 13.0 % CERNER MILLENNIUM Monocyte Abs 0.8 0.2 - 1.0 x10(3)/mcL CERNER MILLENNIUM Eos % 0.3 0.0 - 7.0 % CERNER MILLENNIUM Eosinophils Abs 0.0 0.0 - 0.5 x10(3)/mcL CERNER MILLENNIUM Basophil % 0.0 0.0 - 2.0 % CERNER MILLENNIUM Baso Absolute 0.0 0.0 - 0.2 x10(3)/mcL CERNER MILLENNIUM Immature Gran % 0.30 0.00 - 0.66 % CERNER MILLENNIUM Comment: Immature granulocytes(IG's)percentage and absolute count will include metamyelocytes, myelocytes, and promyelocytes. Blood smears from CBCs yielding IG's will be scanned manually for concordance. If this scan disagrees with the automated IG or if promyelocytes are noted, a manual differential will be performed. Immature Gran Absolute 0.03 0.00 - 0.05 x10(3)/mcL CERNER MILLENNIUM Blood specimen (specimen) 04/24/2011 6:10 AM EST 04/24/2011 6:27 AM EST Felix Guzman MD HEMATOLOGY ORDERABLE S [facility] * (ABNORMAL) CBC (with Diff) (04/24/2011 6:10 AM EST) White Blood Cell 9.8 4.0 - 10.0 x10(3)/mc L CERNER MILLENNIUM Red Blood Cell 3.60(L) 3.93 - 5.22 x10(6)/mc L CERN[facility] MILLENNIUM Hemoglobin 8.9(L) 11.2 - 15.7 gm/dL CERNER MILLENNIUM Hematocrit 27.2(L) 34.0 - 45.0 % CERNER MILLENNIUM Mean Cell Volume 75.6(L) 79.0 - 94.0 fL CERNER MILLENNIUM Mean Cell Hemoglobin 24.7(L) 26.6 - 32.2 pg CERNER MILLENNIUM Mean Cell Hemoglobin Concentration 32.7 32.0 - 36.5 gm/dL CERNER MILLENNIUM Platelet 145 145 - 370 x10(3)/mc L CERNER MILLENNIUM RDW Standard Deviation 47.4(H) 35.0 - 46.0 fL CERNER MILLENNIUM RDW coefficient of variation 17.3(H) 10.9 - 14.4 % CERNER MILLENNIUM Mean Platelet Volume 9.9 9.0 - 12.0 fL [facility] Blood specimen (specimen) 04/24/2011 6:10 AM EST 04/24/2011 6:27 AM EST Felix Guzman MD HEMATOLOGY ORDERABLE S [facility]ENTERMAGDALENA WALLERENNIUM * (ABNORMAL) BMP w/fasting Glucose (04/24/2011 6:10 AM EST) Glucose Fasting 126(H) 65 - 99 mg/dL [facility] Comment: ?Fasting* Glucose Interpretive Criteria Normal ?65-99 [...] of Diabetes Mellitus, Position Statement from the [place] [employer]. ??Diabetes Care, Volume 33, Supplement 1, Apr 2009 Blood Urea Nitrogen 13 8 - 18 mg/dL [facility] Creatinine 0.72 0.70 - 1.20 mg/dL [facility] MILLENNI[facility] Sodium 145 135 - 145 mmol/L [facility]ILL[facility]NI[facility] Potassium 2.7(Criti sang) 3.5 - 5.0 mmol/L [facility]ILL[facility] Comment: Results rechecked-[facility] Called by: mani, Read back by: ra palencia, Date/Time:04/24/11 07:23. Please note: ??Patients with WBC >100,000 may have falsely elevated Potassium levels. ??For accurate Potassium quantification in these patients send serum separator tube (gold top) for subsequent determinations. ??Contact the Clinical Chemistry Laboratory if there are any questions. Chloride 111(H) 98 - 107 mmol/L [facility] Carbon Dioxide 28 22 - 31 mmol/L [facility]ERN[facility] MILLENNI[facility] Anion Gap 6 5 - 15 mmol/L [facility]ERN[facility] MILLENNIUM Calcium 7.7(L) 8.5 - 10.5 mg/dL CERNER MILLENNIUM Est Glomerular Filtration Rate >60 >=60 [facility] 23pressJACOBS MEDICAL [facility] Comment: The National Kidney Disease Education Program [...] disease. References: http://nkdep.nih.gov/resources/NKDEP_Suggestn4Labs_0606_508.pdf http://www.kidney.org/professionals/kls/pdf/faq_gfr.pdf Blood specimen (specimen) 04/24/2011 6:10 AM EST 04/24/2011 6:27 AM EST Felix Guzman MD CHEMISTRY ORDERABLES Performing Organization Address [facility] de Phone Number [facility] [employer] * (ABNORMAL) CK (04/24/2011 6:10 AM EST) Creatine Kinase 656(H) 0 - 160 unit/L [facility] 23pressLEANNELIFECARE [facility] Blood specimen (specimen) 04/24/2011 6:10 AM EST 04/24/2011 6:27 AM EST Felix Guzman MD CHEMISTRY ORDERABLES Performing Organization Address [facility] Co de Phone Number [facility] 23pressJACOBS [facility] * POCT GLUCOSE LAB USE ONLY (04/24/2011 4:03 AM EST) Glucose, POC 177 60 - 199 mg/dL [facility] Comment: Supplemental ranges: <110 mg/dL before meals <200 mg/dL all other times of the day Blood specimen (specimen) 04/24/2011 4:03 AM EST 04/24/2011 4:03 AM EST Lexi Read MD POINT OF CARE TEST O JESSICA Performing Organization Address [facility] Co de Phone Number [facility] * POCT GLUCOSE LAB USE ONLY (04/24/2011 12:11 AM EST) Glucose, POC 94 60 - 199 mg/dL [facility] Comment: Supplemental ranges: <110 mg/dL before meals <200 mg/dL all other times of the day Blood specimen (specimen) 04/24/2011 12:11 AM EST 04/24/2011 12:11 AM EST Lexi Read MD POINT OF CARE TEST O JESSICA Performing Organization Address [facility] Co de Phone Number [facility]HARJ[facility] * POCT GLUCOSE LAB USE ONLY (04/23/2011 8:07 PM EST) Glucose, POC 146 60 - 199 mg/dL [facility] Comment: Supplemental ranges: <110 mg/dL before meals <200 mg/dL all other times of the day Blood specimen (specimen) 04/23/2011 8:07 PM EST 04/23/2011 8:07 PM EST Lexi Read MD POINT OF CARE TEST O RDERARADHA Performing Organization Address [facility] Co de Phone Number [facility]ENTERMAGDALENA WALLERJACO[facility] * LAVENDER TUBE HOLD (04/23/2011 5:40 PM EST) Lavender Hold Sample in lab. [facility] Blood specimen (specimen) 04/23/2011 5:40 PM EST 04/23/2011 6:17 PM EST Felix Guzman MD HEMATOLOGY ORDERABLE S Performing Organization Address [facility] [facility] Co de Phone Number [facility] * GREEN TUBE HOLD (04/23/2011 5:40 PM EST) Green Hold Sample in lab. [facility] Blood specimen (specimen) 04/23/2011 5:40 PM EST 04/23/2011 6:18 PM EST Felix Guzman MD CHEMISTRY ORDERABLES Performing Organization Address [facility] de Phone Number [facility] * (ABNORMAL) POCT GLUCOSE LAB USE ONLY (04/23/2011 4:36 PM EST) Glucose, POC 200(H) 60 - 199 mg/dL [facility] Comment: Supplemental ranges: <110 mg/dL before meals <200 mg/dL all other times of the day Blood specimen (specimen) 04/23/2011 4:36 PM EST 04/23/2011 4:36 PM EST Lexi Read MD POINT OF CARE TEST O RDERABLES Performing Organization Address [facility] de Phone Number [facility] * POCT GLUCOSE LAB USE ONLY (04/23/2011 3:00 PM EST) Glucose, POC 177 60 - 199 mg/dL [facility] Comment: Supplemental ranges: <110 mg/dL before meals <200 mg/dL all other times of the day Blood specimen (specimen) 04/23/2011 3:00 PM EST 04/23/2011 3:00 PM EST Lexi Read MD POINT OF CARE TEST O RDERABLES Performing Organization Address [facility] Co de Phone Number [facility] * POCT GLUCOSE LAB USE ONLY (04/23/2011 1:28 PM EST) Glucose, POC 169 60 - 199 mg/dL [facility] Comment: Supplemental ranges: <110 mg/dL before meals <200 mg/dL all other times of the day Blood specimen (specimen) 04/23/2011 1:28 PM EST 04/23/2011 1:28 PM EST Narrative Authorizing Provider Result Flavia Read MD POINT OF CARE TEST O RDERARADHA Performing Organization Address [facility] de Phone Number [facility] * POCT GLUCOSE LAB USE ONLY (04/23/2011 12:23 PM EST) Glucose, POC 144 60 - 199 mg/dL [facility] 23pressENNIUM Comment: Supplemental ranges: <110 mg/dL before meals <200 mg/dL all other times of the day Blood specimen (specimen) 04/23/2011 12:23 PM EST 04/23/2011 12:23 PM EST Narrative Authorizing Provider Result Flavia Read MD POINT OF CARE TEST O JESSICA Performing Organization Address [facility] de Phone Number [facility] * POCT GLUCOSE LAB USE ONLY (04/23/2011 11:24 AM EST) Glucose, POC 149 60 - 199 mg/dL [facility] Comment: Supplemental ranges: <110 mg/dL before meals <200 mg/dL all other times of the day Blood specimen (specimen) 04/23/2011 11:24 AM EST 04/23/2011 11:24 AM EST Narrative Authorizing Provider Result Flavia Read MD POINT OF CARE TEST O RDERARADHA Performing Organization Address [facility] de Phone Number [facility] * POCT GLUCOSE LAB USE ONLY (04/23/2011 10:22 AM EST) Glucose, POC 146 60 - 199 mg/dL [facility] Comment: Supplemental ranges: <110 mg/dL before meals <200 mg/dL all other times of the day Blood specimen (specimen) 04/23/2011 10:22 AM EST 04/23/2011 10:22 AM EST Lexi Read MD POINT OF CARE TEST O RDERABLES Performing Organization Address [facility] de Phone Number [facility] * POCT GLUCOSE LAB USE ONLY (04/23/2011 9:17 AM EST) Glucose, POC 153 60 - 199 mg/dL [facility] Comment: Supplemental ranges: <110 mg/dL before meals <200 mg/dL all other times of the day Blood specimen (specimen) 04/23/2011 9:17 AM EST 04/23/2011 9:17 AM EST Lexi Read MD POINT OF CARE TEST O RDERABLES Performing Organization Address [facility] de Phone Number [facility] * POCT GLUCOSE LAB USE ONLY (04/23/2011 8:18 AM EST) Glucose, POC 161 60 - 199 mg/dL [facility] Comment: Supplemental ranges: <110 mg/dL before meals <200 mg/dL all other times of the day Blood specimen (specimen) 04/23/2011 8:18 AM EST 04/23/2011 8:18 AM EST Lexi Read MD POINT OF CARE TEST O RDERABLES Performing Organization Address [facility] de Phone Number [facility] * INTUBATION (04/23/2011 8:10 AM EST) Narrative 04/23/2011 8:10 AM EST Intubation Procedure Note Reason for Intubation: ?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 Location of Procedure: ICU [facility]. Risks and Benefits: The risks and benefits of this procedure were not reviewed and informed consent was not obtained obtained. Time Out: Prior to the start of the procedure, the patient's identity, intended procedure, site/side, correct patient positioning and presence of the site martina was confirmed as applicable. The medical history and chart were reviewed to rule out potential contraindications to the planned procedure. ?? This was an emergent procedure. Intubation Assessment: ?? Comments: endotracheal tube exchange only. Additional Intubation Assessment: Preoxygenation was administered. Laryngoscope Blade and Size: N/A The endotracheal tube size was 7.5 mm. The tube was cuffed. Common Adjuvant Equipment: A stylet was not used. An oral airway was not used. ?? A nasal airway was not used. ?? Additional Adjuvant Equipment: Type scope: none [place]ree Intubation Catheter: no Combitube:no Intubating Laryngeal Mask Airway:none Laryngeal Mask Airway: none Other: Cook catheter Intubation Method: other: endotracheal tube exchange IV Medications: ?? 30 mg Etomidate ?? 140 mg Succinycholine Other Medications: ?? Other: None Insertion Attempts: There was 1 attempt. Visualization of Vocal Cords: A N/A view of the vocal cords was observed. Confirmation of Tube Placement: ?Chest X-ray ordered ?? end tidal CO2 ?? bilateral breath sounds Status Post Intubation: ?? The patient was hemodynamically stable. ?? The procedure was uncomplicated and atraumatic. Tube secured (at lip or nares): 23 cm Other post intubation status comments: N/A BREANN TRAMMELL MD 04/21/2011 I was the attending physician supervising the resident in the above care and I was not present for the metcalf components of the ?? procedure. Procedure Note Cristy Plaza MD - 04/21/2011 2:32 AM EST Intubation Procedure Note Reason for Intubation: ?? 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 Location of Procedure: ICU [facility]. Risks and Benefits: The risks and benefits of this procedure were not reviewed and informedconsent was not obtained obtained. Time Out: Prior to the start of the procedure, the patient's identity,intended procedure, site/side, correct patient positioning and presence ofthe site martina was confirmed as applicable. The medical history and chartwere reviewed to rule out potential contraindications to the plannedprocedure. This was an emergent procedure. Intubation Assessment: ?? Comments: endotracheal tube exchange only. Additional Intubation Assessment: Preoxygenation was administered. Laryngoscope Blade and Size: N/A The endotracheal tube size was 7.5 mm. The tube was cuffed. Common Adjuvant Equipment: A stylet was not used. An oral airway was not used. A nasal airway was not used. Additional Adjuvant Equipment: Type scope: none Aintree Intubation Catheter: no Combitube:no Intubating Laryngeal Mask Airway:none Laryngeal Mask Airway: none Other: Cook catheter Intubation Method: other: endotracheal tube exchange IV Medications: ?? 30 mg Etomidate ?? 140 mg Succinycholine Other Medications: ?? Other: None Insertion Attempts: There was 1 attempt. Visualization of Vocal Cords: A N/A view of the vocal cords was observed. Confirmation of Tube Placement: ?? Chest X-ray ordered ?? end tidal CO2 ?? bilateral breath sounds Status Post Intubation: ?? The patient was hemodynamically stable. ?? The procedure was uncomplicated and atraumatic. Tube secured (at lip or nares): 23 cm Other post intubation status comments: N/A BREANN TRAMMELL MD 04/21/2011 I was the attending physician supervising the resident in the above careand I was not present for the metcalf components of the procedure. Lexi Read MD PROCEDURE/MINOR SURG ICAL ORDERABLES * POCT GLUCOSE LAB USE ONLY (04/23/2011 7:15 AM EST) Glucose, POC 167 60 - 199 mg/dL [facility] Comment: Supplemental ranges: <110 mg/dL before meals <200 mg/dL all other times of the day Blood specimen (specimen) 04/23/2011 7:15 AM EST 04/23/2011 7:15 AM EST Lexi Read MD POINT OF CARE TEST O JESSICA Performing Organization Address [facility] de Phone Number [facility] * POCT GLUCOSE LAB USE ONLY (04/23/2011 6:09 AM EST) Glucose, POC 180 60 - 199 mg/dL [facility] Comment: Supplemental ranges: <110 mg/dL before meals <200 mg/dL all other times of the day Blood specimen (specimen) 04/23/2011 6:09 AM EST 04/23/2011 6:09 AM EST Lexi Read MD POINT OF CARE TEST O LUPISERARADHA Performing Organization Address [facility] de Phone Number [facility] * POCT GLUCOSE LAB USE ONLY (04/23/2011 5:09 AM EST) Glucose, POC 186 60 - 199 mg/dL [facility] Comment: Supplemental ranges: <110 mg/dL before meals <200 mg/dL all other times of the day Blood specimen (specimen) 04/23/2011 5:09 AM EST 04/23/2011 5:09 AM EST Lexi Read MD POINT OF CARE TEST O JESSICA Performing Organization Address [facility] de Phone Number [facility] * POCT GLUCOSE LAB USE ONLY (04/23/2011 4:05 AM EST) Glucose, POC 198 60 - 199 mg/dL [facility] Comment: Supplemental ranges: <110 mg/dL before meals <200 mg/dL all other times of the day Blood specimen (specimen) 04/23/2011 4:05 AM EST 04/23/2011 4:05 AM EST Lexi Read MD POINT OF CARE TEST O JESSICA Performing Organization Address [facility] de Phone Number [facility] * POCT GLUCOSE LAB USE ONLY (04/23/2011 2:48 AM EST) Glucose, POC 159 60 - 199 mg/dL [facility] Comment: Supplemental ranges: <110 mg/dL before meals <200 mg/dL all other times of the day Blood specimen (specimen) 04/23/2011 2:48 AM EST 04/23/2011 2:48 AM EST Lexi Read MD POINT OF CARE TEST O JESSICA Performing Organization Address [facility] de Phone Number [facility] * POCT GLUCOSE LAB USE ONLY (04/23/2011 1:47 AM EST) Glucose, POC 117 60 - 199 mg/dL [facility] Comment: Supplemental ranges: <110 mg/dL before meals <200 mg/dL all other times of the day Blood specimen (specimen) 04/23/2011 1:47 AM EST 04/23/2011 1:47 AM EST Lexi Read MD POINT OF CARE TEST O RDERARADHA Performing Organization Address [facility] de Phone Number [facility] Fik StoresLIFEC[facility] * POCT GLUCOSE LAB USE ONLY (04/23/2011 1:05 AM EST) Glucose, POC 95 60 - 199 mg/dL [facility] Comment: Supplemental ranges: <110 mg/dL before meals <200 mg/dL all other times of the day Blood specimen (specimen) 04/23/2011 1:05 AM EST 04/23/2011 1:05 AM EST Lexi Read MD POINT OF CARE TEST O LUPISERARADHA Performing Organization Address [facility] de Phone Number [facility] 23pressSUM[facility] * POCT GLUCOSE LAB USE ONLY (04/23/2011 12:19 AM EST) Glucose, POC 121 60 - 199 mg/dL [facility] Comment: Supplemental ranges: <110 mg/dL before meals <200 mg/dL all other times of the day Blood specimen (specimen) 04/23/2011 12:19 AM EST 04/23/2011 12:19 AM EST Lexi Read MD POINT OF CARE TEST O LUPISERARADHA Performing Organization Address [facility] de Phone Number [facility] 23pressSUMMIT [facility] * POCT GLUCOSE LAB USE ONLY (04/22/2011 11:28 PM EST) Glucose, POC 150 60 - 199 mg/dL [facility] Comment: Supplemental ranges: <110 mg/dL before meals <200 mg/dL all other times of the day Blood specimen (specimen) 04/22/2011 11:28 PM EST 04/22/2011 11:28 PM EST Lexi Read MD POINT OF CARE TEST O RDERARADHA Performing Organization Address [facility] de Phone Number [facility] * POCT GLUCOSE LAB USE ONLY (04/22/2011 10:10 PM EST) Glucose, POC 197 60 - 199 mg/dL [facility] Comment: Supplemental ranges: <110 mg/dL before meals <200 mg/dL all other times of the day Blood specimen (specimen) 04/22/2011 10:10 PM EST 04/22/2011 10:10 PM EST Lexi Read MD POINT OF CARE TEST O RDERARADHA Performing Organization Address [facility] de Phone Number [facility] * (ABNORMAL) POCT GLUCOSE LAB USE ONLY (04/22/2011 8:46 PM EST) Glucose, POC 242(H) 60 - 199 mg/dL [facility] Comment: Supplemental ranges: <110 mg/dL before meals <200 mg/dL all other times of the day Blood specimen (specimen) 04/22/2011 8:46 PM EST 04/22/2011 8:46 PM EST Lexi Read MD POINT OF CARE TEST O RDERARADHA Performing Organization Address [facility] de Phone Number [facility] * POCT GLUCOSE LAB USE ONLY (04/22/2011 7:25 PM EST) Glucose, POC 139 60 - 199 mg/dL [facility] Comment: Supplemental ranges: <110 mg/dL before meals <200 mg/dL all other times of the day Blood specimen (specimen) 04/22/2011 7:25 PM EST 04/22/2011 7:25 PM EST Lexi Read MD POINT OF CARE TEST O RDERARADHA Performing Organization Address [facility] Co de Phone Number [facility] * POCT GLUCOSE LAB USE ONLY (04/22/2011 7:01 PM EST) Glucose, POC 137 60 - 199 mg/dL [facility] Comment: Supplemental ranges: <110 mg/dL before meals <200 mg/dL all other times of the day Blood specimen (specimen) 04/22/2011 7:01 PM EST 04/22/2011 7:01 PM EST Lexi Read MD POINT OF CARE TEST O RDERARADHA Performing Organization Address [facility] de Phone Number [facility] * POCT GLUCOSE LAB USE ONLY (04/22/2011 6:10 PM EST) Glucose, POC 148 60 - 199 mg/dL [facility] Comment: Supplemental ranges: <110 mg/dL before meals <200 mg/dL all other times of the day Blood specimen (specimen) 04/22/2011 6:10 PM EST 04/22/2011 6:10 PM EST Lexi Read MD POINT OF CARE TEST O JESSICA Performing Organization Address [facility] de Phone Number [facility] 23pressSUM[facility] * POCT GLUCOSE LAB USE ONLY (04/22/2011 5:17 PM EST) Glucose, POC 156 60 - 199 mg/dL [facility] 23pressSUM[facility] Comment: Supplemental ranges: <110 mg/dL before meals <200 mg/dL all other times of the day Blood specimen (specimen) 04/22/2011 5:17 PM EST 04/22/2011 5:17 PM EST Narrative Authorizing Provider Result Flavia Read MD POINT OF CARE TEST O JESSICA Performing Organization Address [facility] de Phone Number [facility] * POCT GLUCOSE LAB USE ONLY (04/22/2011 3:46 PM EST) Glucose, POC 174 60 - 199 mg/dL [facility] Comment: Supplemental ranges: <110 mg/dL before meals <200 mg/dL all other times of the day Blood specimen (specimen) 04/22/2011 3:46 PM EST 04/22/2011 3:46 PM EST Lexi Read MD POINT OF CARE TEST O RDERABLES Performing Organization Address [facility] de Phone Number [facility] * POCT GLUCOSE LAB USE ONLY (04/22/2011 2:23 PM EST) Glucose, POC 180 60 - 199 mg/dL [facility] Comment: Supplemental ranges: <110 mg/dL before meals <200 mg/dL all other times of the day Blood specimen (specimen) 04/22/2011 2:23 PM EST 04/22/2011 2:23 PM EST Lexi Read MD POINT OF CARE TEST O RDERABLES Performing Organization Address [facility] de Phone Number [facility] * POCT GLUCOSE LAB USE ONLY (04/22/2011 1:00 PM EST) Glucose, POC 181 60 - 199 mg/dL [facility] Comment: Supplemental ranges: <110 mg/dL before meals <200 mg/dL all other times of the day Blood specimen (specimen) 04/22/2011 1:00 PM EST 04/22/2011 1:00 PM EST Lexi Read MD POINT OF CARE TEST O RDERABLES Performing Organization Address [facility] Phone Number [facility] * Potassium (04/22/2011 1:00 PM EST) Potassium 4.0 3.5 - 5.0 mmol/L [facility] Comment: Please note: ??Patients with WBC >100,000 may have falsely elevated Potassium levels. ??For accurate Potassium quantification in these patients send serum separator tube (gold top) for subsequent determinations. ??Contact the Clinical Chemistry Laboratory if there are any questions. Blood specimen (specimen) 04/22/2011 1:00 PM EST 04/22/2011 1:09 PM EST Lexi Read MD CHEMISTRY ORDERABLES Performing Organization Address [facility] de Phone Number [facility] * POCT GLUCOSE LAB USE ONLY (04/22/2011 11:53 AM EST) Glucose, POC 179 60 - 199 mg/dL [facility] Comment: Supplemental ranges: <110 mg/dL before meals <200 mg/dL all other times of the day Blood specimen (specimen) 04/22/2011 11:53 AM EST 04/22/2011 11:53 AM EST Lexi Read MD POINT OF CARE TEST O RDERARADHA Performing Organization Address [facility] Phone Number [facility] * (ABNORMAL) POCT GLUCOSE LAB USE ONLY (04/22/2011 10:27 AM EST) Glucose, POC 205(H) 60 - 199 mg/dL [facility] Comment: Supplemental ranges: <110 mg/dL before meals <200 mg/dL all other times of the day Blood specimen (specimen) 04/22/2011 10:27 AM EST 04/22/2011 10:27 AM EST Lexi Read MD POINT OF CARE TEST O RDKATHY Performing Organization Address [facility] de Phone Number [facility] * POCT GLUCOSE LAB USE ONLY (04/22/2011 8:49 AM EST) Glucose, POC 188 60 - 199 mg/dL [facility] Comment: Supplemental ranges: <110 mg/dL before meals <200 mg/dL all other times of the day Blood specimen (specimen) 04/22/2011 8:49 AM EST 04/22/2011 8:49 AM EST Lexi Read MD POINT OF CARE TEST O RDERARADHA Performing Organization Address [facility] de Phone Number [facility] * EKG 12 Lead (04/22/2011 8:12 AM EST) Ventricular rate 65 BPM MUSE SYSTEM Atrial Rate 65 BPM MUSE SYSTEM P-R Interval 148 ms MUSE SYSTEM QRS Duration 56 ms MUSE SYSTEM Q-T Interval 416 ms MUSE SYSTEM QTC Calculated (Bezet) 432 ms MUSE SYSTEM Calculated P [place] 56 degrees MUSE SYSTEM Calculated R [place] 32 degrees MUSE SYSTEM Calculated T [place] 28 degrees MUSE SYSTEM INTERPRETATION Normal sinus rhythm Low voltage QRS Borderline ECG When compared with ECG of 20-APR-2011 12:25, QT has shortened Confirmed by MD Bob, Tunde ([id number]) on 04/22/2011 4:23:45 PM MUSE SYSTEM 04/22/2011 8:12 AM EST 04/22/2011 4:23 PM EST Siria Fuller MD ECG ORDERABLES MUSE SYSTEM * (ABNORMAL) POCT GLUCOSE LAB USE ONLY (04/22/2011 7:43 AM EST) Pathologist [facility] Glucose, POC 213(H) 60 - 199 mg/dL [facility] Comment: Supplemental ranges: <110 mg/dL before meals <200 mg/dL all other times of the day Blood specimen (specimen) 04/22/2011 7:43 AM EST 04/22/2011 7:43 AM EST Lexi Read MD POINT OF CARE TEST O RDERABLES Performing Organization Address City/[facility]/ZIP Co de Phone Number [facility] * (ABNORMAL) DIFFERENTIAL, AUTOMATED (04/22/2011 6:32 AM EST) Neutrophil % 87.0(H) 34.0 - 71.0 % [facility] Neutrophil Absolute 7.33(H) 1.50 - 6.30 x10(3)/mc L [facility] Lymph % 8.4(L) 19.0 - 53.0 % [facility] Lymphocytes Abs 0.7(L) 1.0 - 3.6 x10(3)/mc L [facility] Monocyte % 4.4 4.0 - 13.0 % [facility] Monocyte Abs 0.4 0.2 - 1.0 x10(3)/mc L [facility] Eos % 0.0 0.0 - 7.0 % [facility] Eosinophils Abs 0.0 0.0 - 0.5 x10(3)/mc L [facility] Basophil % 0.0 0.0 - 2.0 % [facility] Baso Absolute 0.0 0.0 - 0.2 x10(3)/mc L [facility] Immature Gran % 0.20 0.00 - 0.66 % [facility] Comment: Immature granulocytes(IG's)percentage and absolute count will include metamyelocytes, myelocytes, and promyelocytes. Blood smears from CBCs yielding IG's will be scanned manually for concordance. If this scan disagrees with the automated IG or if promyelocytes are noted, a manual differential will be performed. Immature Gran Absolute 0.02 0.00 - 0.05 x10(3)/mc L [facility] Blood specimen (specimen) 04/22/2011 6:32 AM EST 04/22/2011 6:32 AM EST Siria Fuller MD HEMATOLOGY ORDERABLE S [facility] * (ABNORMAL) CBC (with Diff) (04/22/2011 6:32 AM EST) White Blood Cell 8.4 4.0 - 10.0 x10(3)/mc L [facility] Red Blood Cell 3.59(L) 3.93 - 5.22 x10(6)/mc L [facility] Hemoglobin 9.1(L) 11.2 - 15.7 gm/dL [facility] Hematocrit 26.8(L) 34.0 - 45.0 % [facility] Mean Cell Volume 74.7(L) 79.0 - 94.0 fL [facility] Mean Cell Hemoglobin 25.3(L) 26.6 - 32.2 pg [facility] Mean Cell Hemoglobin Concentration 34.0 32.0 - 36.5 gm/dL [facility] Platelet 112(L) 145 - 370 x10(3)/mc L [facility] RDW Standard Deviation 46.7(H) 35.0 - 46.0 fL [facility] RDW coefficient of variation 17.1(H) 10.9 - 14.4 % [facility] Mean Platelet Volume 8.6(L) 9.0 - 12.0 fL [facility] Blood specimen (specimen) 04/22/2011 6:32 AM EST 04/22/2011 6:32 AM EST Siria Fuller MD HEMATOLOGY ORDERABLE S Performing Organization Address [facility] Co de Phone Number [facility] * POCT GLUCOSE LAB USE ONLY (04/22/2011 6:15 AM EST) Glucose, POC 180 60 - 199 mg/dL [facility] Comment: Supplemental ranges: <110 mg/dL before meals <200 mg/dL all other times of the day Blood specimen (specimen) 04/22/2011 6:15 AM EST 04/22/2011 6:15 AM EST Lexi Read MD POINT OF CARE TEST O JESSICA Performing Organization Address [facility] Co de Phone Number [facility] * POCT GLUCOSE LAB USE ONLY (04/22/2011 5:06 AM EST) Glucose, POC 145 60 - 199 mg/dL [facility] Comment: Supplemental ranges: <110 mg/dL before meals <200 mg/dL all other times of the day Blood specimen (specimen) 04/22/2011 5:06 AM EST 04/22/2011 5:06 AM EST Lexi Read MD POINT OF CARE TEST O JESSICA Performing Organization Address [facility] Co de Phone Number [facility] * (ABNORMAL) CARDIAC ENZYMES (04/22/2011 4:45 AM EST) Troponin-T 0.10(H) <=0.03 ng/mL [facility] Comment: 0.03 ng/mL: Represents the 99th percentile upper reference limit for normals. >0.03 ng/mL: Elevated cardiac troponin T level indicative of myocardial damage. Diagnosis of acute, evolving or recent MS requires a typical rise and gradual fall of cTnT with at least ONE of the following: a) Ischemic symptoms b) Development of pathologic Q waves on the ECG c) ECG changes indicative of eschemia (S-T segment elevation/depression) d) Coronary artery intervention Serial bloods should be obtained for testing on admission, at 6 to 9 hrs and again at 12 to 24 hrs if earlier samples are negative and the clinical index of suspicion is high. Reference: [Myocardial infarction redefined a consensus document of the Joint Society of Cardiology/[place] [employer] Committee for the redefinition of myocardial infarction. Journal of the [place] [employer] 2000; 36: 959-969] Creatine Kinase 2128(H) 0 - 160 unit/L CERN[facility] MILLENNIUM Comment:rechecked - llu Blood specimen (specimen) 04/22/2011 4:45 AM EST 04/22/2011 5:11 AM EST Siria Fuller MD CHEMISTRY ORDERABLES [facility]ILLENNIUM * (ABNORMAL) Basic Metabolic Panel (non-fasting) (04/22/2011 4:45 AM EST) Pathologist [facility] Glucose 146 60 - 199 mg/dL [facility]ERN[facility] MILLENNIUM Comment:Diabetes: >=200 mg/d L plus symptoms Blood Urea Nitrogen 19(H) 8 - 18 mg/dL [facility]ERN[facility] MILLENNIUM Creatinine 0.75 0.70 - 1.20 mg/dL [facility] MILLENNIUM Sodium 141 135 - 145 mmol/L [facility]ERN[facility] MILLENNIUM Potassium 4.0 3.5 - 5.0 mmol/L [facility] MILLENNIUM Comment: Please note: ??Patients with WBC >100,000 may have falsely elevated Potassium levels. ??For accurate Potassium quantification in these patients send serum separator tube (gold top) for subsequent determinations. ??Contact the Clinical Chemistry Laboratory if there are any questions. Chloride 115(H) 98 - 107 mmol/L CERN[facility] MILLENNIUM Carbon Dioxide 21(L) 22 - 31 mmol/L CERN[facility] MILLENNIUM Anion Gap 5 5 - 15 mmol/L CERNER MILLENNIUM Calcium 7.2(L) 8.5 - 10.5 mg/dL CERNER MILLENNIUM Est Glomerular Filtration Rate >60 >=60 [facility] Comment: The National Kidney Disease Education Program [...] disease. References: http://nkdep.nih.gov/resources/NKDEP_Suggestn4Labs_0606_508.pdf http://www.kidney.org/professionals/kls/pdf/faq_gfr.pdf Blood specimen (specimen) 04/22/2011 4:45 AM EST 04/22/2011 5:11 AM EST Siria Fulelr MD CHEMISTRY ORDERABLES [facility] * POCT GLUCOSE LAB USE ONLY (04/22/2011 3:59 AM EST) Glucose, POC 130 60 - 199 mg/dL [facility] Comment: Supplemental ranges: <110 mg/dL before meals <200 mg/dL all other times of the day Blood specimen (specimen) 04/22/2011 3:59 AM EST 04/22/2011 3:59 AM EST Lexi Read MD POINT OF CARE TEST O RDERABLES Performing Organization Address [facility] Co de Phone Number [facility] * POCT GLUCOSE LAB USE ONLY (04/22/2011 3:11 AM EST) Glucose, POC 123 60 - 199 mg/dL [facility] Comment: Supplemental ranges: <110 mg/dL before meals <200 mg/dL all other times of the day Blood specimen (specimen) 04/22/2011 3:11 AM EST 04/22/2011 3:11 AM EST Lexi Read MD POINT OF CARE TEST O RDERARADHA Performing Organization Address [facility] Phone Number [facility] * POCT GLUCOSE LAB USE ONLY (04/22/2011 2:02 AM EST) Glucose, POC 138 60 - 199 mg/dL [facility] Comment: Supplemental ranges: <110 mg/dL before meals <200 mg/dL all other times of the day Blood specimen (specimen) 04/22/2011 2:02 AM EST 04/22/2011 2:02 AM EST Lexi Read MD POINT OF CARE TEST O RDERABLES Performing Organization Address [facility] de Phone Number [facility] * POCT GLUCOSE LAB USE ONLY (04/22/2011 1:03 AM EST) Glucose, POC 153 60 - 199 mg/dL [facility] Comment: Supplemental ranges: <110 mg/dL before meals <200 mg/dL all other times of the day Blood specimen (specimen) 04/22/2011 1:03 AM EST 04/22/2011 1:03 AM EST Lexi Read MD POINT OF CARE TEST O RDERABLES Performing Organization Address [facility] Co de Phone Number [facility] * POCT GLUCOSE LAB USE ONLY (04/21/2011 11:39 PM EST) Glucose, POC 164 60 - 199 mg/dL [facility]ERN[facility] MILLENNI[facility] Comment: Supplemental ranges: <110 mg/dL before meals <200 mg/dL all other times of the day Blood specimen (specimen) 04/21/2011 11:39 PM EST 04/21/2011 11:39 PM EST Lexi Read MD POINT OF CARE TEST O RDERABLES [facility]NI[facility] * (ABNORMAL) BLOOD GAS 2 ARTERIAL (04/21/2011 11:38 PM EST) pH, Arterial 7.44 CERNER MILLENNIUM PCO2, Arterial 26(L) mmHg CERNE R MILLENNIUM PO2, Arterial 97 mmHg CERNER MILLENNIUM Bicarbonate, Arterial 16.9(L) mmol/L CERNER MILLENNIUM Base Excess, Arterial -7.2(L) mmol/L CERNER MILLENNIUM Hgb Blood Gas 8.9(L) gm/dL [facility]ERN[facility] MILLENNIUM Comment: Total Hemoglobin (in gm/dL) ?Based on [facility] Hematology ranges: ?Age ?Reference Range Less than 3 days ?14.5 to 22.5 3 days to 2 weeks ? 12.5 to 20.5 2 weeks to 1 month ?10.0 to 18.0 1 to 6 months ?9.4 to 14.0 6 months to 2 years ? 10.5 to 13.5 2 to 6 years ?11.5 to 13.5 6 to 12 years ? 11.5 to 15.5 12 to 18 years (female) 12.0 to 16.0 ? (male) ?? 13.0 to 16.0 > 18 years ? (female) 11.2 to 15.7 ? (male) ?? 13.7 to 17.5 Oxyhemoglobin, Arterial 96.0 % CERNER MILLENNIUM Carboxyhemoglob in, Arterial 1.1 % CERNER MILLENNIUM Comment: Nonsmokers: 0.5-1.5% COHB Smokers: Variable, but usually less than 10% Toxic: 20-30% COHB Lethal: Greater than 60% COHB Methemoglobin, Arterial 0.4 % CERNER MILLENNIUM Na Whole Blood 136 mmol/L CERNE R MILLENNIUM K Whole Blood 4.3 mmol/L CERNER MILLENNIUM Comment: Please note: Patients with WBC >100,000 may have falsely elevated Potassium levels. Contact the Clinical Chemistry Laboratory if there are any questions. ICa Whole Blood 1.18 mmol/L CERN ER MILLENNIUM Comment: Reference Ranges: ?? < 19 yrs: 1.22 - 1.37 mmol/L ? Adults: 1.15 - 1.33 mmol/L Note: ??Total bilirubin higher than 20 mg/dL may lead to falsely low ionized calcium. CL Whole Blood 113(H) mmol/L CERNE R MILLENNIUM Gluc Whole Bld 157 mg/dL [facility]ERNE R MILLENNIUM Comment:Diabetes: >=200 mg/d L plus symptoms. Flow Art 2.0 LPM CERNER MILLENNIUM Blood specimen (specimen) 04/21/2011 11:38 PM EST 04/21/2011 11:38 PM EST Lexi Read MD POINT OF CARE TEST O JESSICA Performing Organization Address [facility] Co de Phone Number CERMAGDALENA [employer] * (ABNORMAL) POCT GLUCOSE LAB USE ONLY (04/21/2011 9:24 PM EST) Glucose, POC 295(H) 60 - 199 mg/dL CERNER MILLENNIUM Comment: Supplemental ranges: <110 mg/dL before meals <200 mg/dL all other times of the day Blood specimen (specimen) 04/21/2011 9:24 PM EST 04/21/2011 9:24 PM EST Lexi Read MD POINT OF CARE TEST O JESSICA CERNER MILLENNIUM * POCT GLUCOSE LAB USE ONLY (04/21/2011 8:41 PM EST) Glucose, POC 192 60 - 199 mg/dL [facility] Comment: Supplemental ranges: <110 mg/dL before meals <200 mg/dL all other times of the day Blood specimen (specimen) 04/21/2011 8:41 PM EST 04/21/2011 8:41 PM EST Lexi Read MD POINT OF CARE TEST O JESSICA Performing Organization Address [facility] de Phone Number [facility] * POCT GLUCOSE LAB USE ONLY (04/21/2011 7:05 PM EST) Glucose, POC 131 60 - 199 mg/dL [facility] Comment: Supplemental ranges: <110 mg/dL before meals <200 mg/dL all other times of the day Blood specimen (specimen) 04/21/2011 7:05 PM EST 04/21/2011 7:05 PM EST Lexi Read MD POINT OF CARE TEST O JESSICA Performing Organization Address [facility] Phone Number [facility] * (ABNORMAL) CARDIAC ENZYMES (04/21/2011 6:45 PM EST) Troponin-T 0.13(H) <=0.03 ng/mL [facility] Comment: result rechecked, blr 0.03 ng/mL: Represents the 99th percentile upper reference limit for normals. >0.03 ng/mL: Elevated cardiac troponin T level indicative of myocardial damage. Diagnosis of acute, evolving or recent MS requires a typical rise and gradual fall of cTnT with at least ONE of the following: a) Ischemic symptoms b) Development of pathologic Q waves on the ECG c) ECG changes indicative of eschemia (S-T segment elevation/depression) d) Coronary artery intervention Serial bloods should be obtained for testing on admission, at 6 to 9 hrs and again at 12 to 24 hrs if earlier samples are negative and the clinical index of suspicion is high. Reference: [Myocardial infarction redefined a consensus document of the Joint Society of Cardiology/[place] [employer] Committee for the redefinition of myocardial infarction. Journal of the [place] [employer]iology 2000; 36: 959-969] Creatine Kinase 2622(H) 0 - 160 unit/L [facility] Comment:result rechecked, bl r Blood specimen (specimen) 04/21/2011 6:45 PM EST 04/21/2011 7:06 PM EST Lexi Read MD CHEMISTRY ORDERABLES Performing Organization Address [facility] de Phone Number [facility] * Potassium (04/21/2011 6:45 PM EST) Potassium 4.6 3.5 - 5.0 mmol/L [facility] Comment: Please note: ??Patients with WBC >100,000 may have falsely elevated Potassium levels. ??For accurate Potassium quantification in these patients send serum separator tube (gold top) for subsequent determinations. ??Contact the Clinical Chemistry Laboratory if there are any questions. Blood specimen (specimen) 04/21/2011 6:45 PM EST 04/21/2011 7:06 PM EST Lexi Read MD CHEMISTRY ORDERABLES Performing Organization Address [facility] Phone Number [facility] * POCT GLUCOSE LAB USE ONLY (04/21/2011 6:05 PM EST) Glucose, POC 113 60 - 199 mg/dL [facility] Comment: Supplemental ranges: <110 mg/dL before meals <200 mg/dL all other times of the day Blood specimen (specimen) 04/21/2011 6:05 PM EST 04/21/2011 6:05 PM EST Lexi Read MD POINT OF CARE TEST O RDERABLES Performing Organization Address [facility] de Phone Number [facility] * POCT GLUCOSE LAB USE ONLY (04/21/2011 5:05 PM EST) Glucose, POC 117 60 - 199 mg/dL [facility] Comment: Supplemental ranges: <110 mg/dL before meals <200 mg/dL all other times of the day Blood specimen (specimen) 04/21/2011 5:05 PM EST 04/21/2011 5:05 PM EST Lexi Read MD POINT OF CARE TEST O RDERABLES Performing Organization Address [facility] de Phone Number [facility] SR[facility]HARSUM[facility] * POCT GLUCOSE LAB USE ONLY (04/21/2011 3:55 PM EST) Glucose, POC 141 60 - 199 mg/dL [facility] Comment: Supplemental ranges: <110 mg/dL before meals <200 mg/dL all other times of the day Blood specimen (specimen) 04/21/2011 3:55 PM EST 04/21/2011 3:55 PM EST Lexi Read MD POINT OF CARE TEST O RDERARADHA Performing Organization Address [facility] de Phone Number [facility] SR[facility]HARSUM[facility] * POCT GLUCOSE LAB USE ONLY (04/21/2011 2:57 PM EST) Glucose, POC 150 60 - 199 mg/dL [facility] Comment: Supplemental ranges: <110 mg/dL before meals <200 mg/dL all other times of the day Blood specimen (specimen) 04/21/2011 2:57 PM EST 04/21/2011 2:57 PM EST Lexi Read MD POINT OF CARE TEST O RDERABLES Performing Organization Address [facility] de Phone Number [facility] * Microalbumin, urine, random (04/21/2011 1:06 PM EST) Creatinine, Urine 151 mg/dL [facility] Albumin, Urine 392.0 mg/L CERNE R MILLENNIUM Albumin / Creatinin Ratio, Urine 260 mcg/mg Cr JOHN MILLENNIUM Comment: Reference Range* Random collection (mcg/mg creatinine) Normal ?<30 Microalbuminuria ?? 30 - 300 Clinical Albuminuria ?? >300 *[place] [employer]. Diabetic Nephropathy. Diabetes Care 1997;(Suppl 1):S24-S27 Exercise within 24 hour, infection, fever, CHF, marked hyperglycemia, and marked hypertension may elevate urinary albumin excretion over baseline values. Urine specimen (specimen) 04/21/2011 1:06 PM EST 04/21/2011 2:31 PM EST Siria Fuller MD URINE ORDERABLES Performing Organization Address [facility] de Phone Number [employer] * POCT GLUCOSE LAB USE ONLY (04/21/2011 12:46 PM EST) Glucose, POC 174 60 - 199 mg/dL [facility] Comment: Supplemental ranges: <110 mg/dL before meals <200 mg/dL all other times of the day Blood specimen (specimen) 04/21/2011 12:46 PM EST 04/21/2011 12:46 PM EST Lexi Read MD POINT OF CARE TEST O RDKATHY Performing Organization Address [facility] Phone Number [employer] * POCT GLUCOSE LAB USE ONLY (04/21/2011 11:55 AM EST) Glucose, POC 173 60 - 199 mg/dL [facility] [employer] Comment: Supplemental ranges: <110 mg/dL before meals <200 mg/dL all other times of the day Blood specimen (specimen) 04/21/2011 11:55 AM EST 04/21/2011 11:55 AM EST Lexi Read MD POINT OF CARE TEST O RDERARADHA Performing Organization Address [facility] de Phone Number [employer] * POCT GLUCOSE LAB USE ONLY (04/21/2011 11:13 AM EST) Glucose, POC 169 60 - 199 mg/dL [facility] [employer] Comment: Supplemental ranges: <110 mg/dL before meals <200 mg/dL all other times of the day Blood specimen (specimen) 04/21/2011 11:13 AM EST 04/21/2011 11:13 AM EST Lexi Read MD POINT OF CARE TEST O RDERABLES Performing Organization Address [facility] de Phone Number [facility] * (ABNORMAL) POCT GLUCOSE LAB USE ONLY (04/21/2011 9:38 AM EST) Glucose, POC 222(H) 60 - 199 mg/dL [facility] Comment: Supplemental ranges: <110 mg/dL before meals <200 mg/dL all other times of the day Blood specimen (specimen) 04/21/2011 9:38 AM EST 04/21/2011 9:38 AM EST Narrative Authorizing Provider Result Flavia Read MD POINT OF CARE TEST O RDERARADHA Performing Organization Address [facility] Phone Number [facility] * (ABNORMAL) POCT GLUCOSE LAB USE ONLY (04/21/2011 8:34 AM EST) Glucose, POC 208(H) 60 - 199 mg/dL [facility] Comment: Supplemental ranges: <110 mg/dL before meals <200 mg/dL all other times of the day Blood specimen (specimen) 04/21/2011 8:34 AM EST 04/21/2011 8:34 AM EST Narrative Authorizing Provider Result Flavia Read MD POINT OF CARE TEST O RDERARADHA Performing Organization Address [facility] de Phone Number [facility] * POCT GLUCOSE LAB USE ONLY (04/21/2011 6:45 AM EST) Glucose, POC 190 60 - 199 mg/dL [facility] Comment: Supplemental ranges: <110 mg/dL before meals <200 mg/dL all other times of the day Blood specimen (specimen) 04/21/2011 6:45 AM EST 04/21/2011 6:45 AM EST Lexi Read MD POINT OF CARE TEST O RDERABLES Performing Organization Address [facility] de Phone Number [facility] * POCT GLUCOSE LAB USE ONLY (04/21/2011 4:48 AM EST) Glucose, POC 126 60 - 199 mg/dL [facility] Comment: Supplemental ranges: <110 mg/dL before meals <200 mg/dL all other times of the day Blood specimen (specimen) 04/21/2011 4:48 AM EST 04/21/2011 4:48 AM EST Lexi Read MD POINT OF CARE TEST O RDERABLES Performing Organization Address [facility] Phone Number [facility] * (ABNORMAL) PHOSPHORUS (04/21/2011 4:45 AM EST) Phosphorus 1.6(L) 2.5 - 4.5 mg/dL [facility] Blood specimen (specimen) 04/21/2011 4:45 AM EST 04/21/2011 5:04 AM EST Lexi Read MD CHEMISTRY ORDERABLES Performing Organization Address [facility] Phone Number [facility] * MAGNESIUM (04/21/2011 4:45 AM EST) Magnesium 0.75 0.69 - 1.07 mmol/L [facility] Blood specimen (specimen) 04/21/2011 4:45 AM EST 04/21/2011 5:04 AM EST Lexi Read MD CHEMISTRY ORDERABLES Performing Organization Address [facility] de Phone Number [facility] * (ABNORMAL) BASIC METABOLIC PANEL (NON-FASTING) (04/21/2011 4:45 AM EST) Glucose 175 60 - 199 mg/dL [facility] Comment:Diabetes: >=200 mg/d L plus symptoms Blood Urea Nitrogen 27(H) 8 - 18 mg/dL [facility] Creatinine 1.16 0.70 - 1.20 mg/dL [facility]ERN[facility] MILLENNIUM Sodium 138 135 - 145 mmol/L CERNER MILLENNIUM Potassium 4.0 3.5 - 5.0 mmol/L [facility] MILLENNIUM Comment: Please note: ??Patients with WBC >100,000 may have falsely elevated Potassium levels. ??For accurate Potassium quantification in these patients send serum separator tube (gold top) for subsequent determinations. ??Contact the Clinical Chemistry Laboratory if there are any questions. Chloride 115(H) 98 - 107 mmol/L CERNER MILLENNIUM Carbon Dioxide 18(L) 22 - 31 mmol/L CERNER MILLENNIUM Anion Gap 5 5 - 15 mmol/L CERNER MILLENNIUM Calcium 6.7(Criti sang) 8.5 - 10.5 mg/dL [facility] Comment:Called by: leanne, Read back by: Almaz Monahan, Date/Time:04/21/11 05:41. Est Glomerular Filtration Rate 48(L) >=60 [facility]ERNER MILLENNIUM Comment: The National Kidney [...] disease. References: http://nkdep.nih.gov/resources/NKDEP_Suggestn4Labs_0606_508.pdf http://www.kidney.org/professionals/kls/pdf/faq_gfr.pdf Blood specimen (specimen) 04/21/2011 4:45 AM EST 04/21/2011 5:04 AM EST Lexi Read MD CHEMISTRY ORDERABLES Performing Organization Address [facility] Phone Number [facility] * Vancomycin, trough (04/21/2011 4:45 AM EST) Vancomycin, Trough 16.0 mg/L [facility] Comment: Therapeutic range for complicated infections such as bacteremia, endocarditis, osteomyelitis, meningitis, and hospital-acquired pneumonia caused by S. aureus: 15-20 mg/L Therapeutic range for other indications: 10-15 mg/L Toxic: >25mg/L Reference: Vancomycin Therapeutic Monitoring: Review and Recommendations from the ASHP, IDSA and SIDP Task Force. ??Am J Health-Syst Pharm. 2009; 66:82-98 Blood specimen (specimen) 04/21/2011 4:45 AM EST 04/21/2011 4:57 AM EST Lexi Read MD CHEMISTRY ORDERABLES Performing Organization Address [facility] Phone Number [facility] * POCT GLUCOSE LAB USE ONLY (04/21/2011 3:42 AM EST) Glucose, POC 128 60 - 199 mg/dL [facility] Comment: Supplemental ranges: <110 mg/dL before meals <200 mg/dL all other times of the day Blood specimen (specimen) 04/21/2011 3:42 AM EST 04/21/2011 3:42 AM EST Lexi Read MD POINT OF CARE TEST O RDERABLES Performing Organization Address [facility] de Phone Number [facility] * XR CHEST PA OR AP- 1 VIEW (04/21/2011 2:37 AM EST) Anatomical Region Laterality Modality Chest N/A Radiographic Michelle ging 04/21/2011 2:37 AM EST Impressions 04/21/2011 2:10 PM EST IMPRESSION: ?? 1. ??Endotracheal tube at the nic. ??It should be pulled back. ?? 2. ??Right upper lobe and left lower lobe pulmonary opacities, which could represent atelectasis or pneumonia. ?? Film and interpretation reviewed by the attending Narrative 04/21/2011 2:10 PM EST AP CHEST, APRIL 21, 2011: HISTORY: ??Intubated, massive crystalized resus, question edema and atelectasis. ?? COMPARISON: ??AP chest, April 19, 2011. ?? FINDINGS: ??There is an airspace opacity involving the right upper lobe in addition to the left lower lobe with air bronchograms seen within the left lower lobe. ??No pneumothorax is present. ??The left internal jugular central venous catheter is unchanged with the tip overlying the right atrium. ??The endotracheal tube terminates at the level of the nic. ??Neurogastric tube is present which extends off the field of view. ?? Procedure Note Dusty Gilbert MD - 04/21/2011 AP CHEST, APRIL 21, 2011: HISTORY: Intubated, massive crystalized resus, question edema andatelectasis. COMPARISON: AP chest, April 19, 2011. FINDINGS: There is an airspace opacity involving the right upper lobe in addition to the left lower lobe with air bronchograms seen within the left lower lobe. No pneumothorax is present. The left internal jugularcentral venous catheter is unchanged with the tip overlying the right atrium. The endotracheal tube terminates at the level of the nic. Neurogastrictube is present which extends off the field of view. IMPRESSION IMPRESSION: 1. Endotracheal tube at the nic. It should be pulled back. 2. Right upper lobe and left lower lobe pulmonary opacities, which could represent atelectasis or pneumonia. Film and interpretation reviewed by the attending Mau CORDOBA IMSusana DX ORDERABL ES * POCT GLUCOSE LAB USE ONLY (04/21/2011 2:20 AM EST) [facility] Glucose, POC 144 60 - 199 mg/dL [facility] Comment: Supplemental ranges: <110 mg/dL before meals <200 mg/dL all other times of the day Blood specimen (specimen) 04/21/2011 2:20 AM EST 04/21/2011 2:20 AM EST Lexi Read MD POINT OF CARE TEST O RDERABLES Performing Organization Address [facility] Co de Phone Number [facility] WALLERRocketmilesLIFEC[facility] * (ABNORMAL) Cardiac Enzymes (04/21/2011 2:15 AM EST) Troponin-T 0.20(H) <=0.03 ng/mL [facility] Comment: 0.03 ng/mL: Represents the 99th percentile upper reference limit for normals. >0.03 ng/mL: Elevated cardiac troponin T level indicative of myocardial damage. Diagnosis of acute, evolving or recent MS requires a typical rise and gradual fall of cTnT with at least ONE of the following: a) Ischemic symptoms b) Development of pathologic Q waves on the ECG c) ECG changes indicative of eschemia (S-T segment elevation/depression) d) Coronary artery intervention Serial bloods should be obtained for testing on admission, at 6 to 9 hrs and again at 12 to 24 hrs if earlier samples are negative and the clinical index of suspicion is high. Reference: [Myocardial infarction redefined a consensus document of the Joint Society of Cardiology/[place] [employer] Committee for the redefinition of myocardial infarction. Journal of the [place] [employer] 2000; 36: 959-969] Creatine Kinase 3108(H) 0 - 160 unit/L [facility] Comment:rechecked - llu Blood specimen (specimen) 04/21/2011 2:15 AM EST 04/21/2011 2:53 AM EST Lexi Read MD CHEMISTRY ORDERABLES Performing Organization Address [facility] Co de Phone Number [facility] WALLERRocketmilesLIFEC[facility] * POCT GLUCOSE LAB USE ONLY (04/21/2011 1:13 AM EST) Glucose, POC 165 60 - 199 mg/dL [facility] Comment: Supplemental ranges: <110 mg/dL before meals <200 mg/dL all other times of the day Blood specimen (specimen) 04/21/2011 1:13 AM EST 04/21/2011 1:13 AM EST Lexi Read MD POINT OF CARE TEST O RDERABLES Performing Organization Address [facility] Co de Phone Number [facility] * (ABNORMAL) HEMOGLOBIN A1C (04/21/2011 1:00 AM EST) Hemoglobin A1c 9.3(H) 4.3 - 6.1 % [facility] Estimated Average Glucose 220 mg/dL [facility] Comment: eAG equivalents for HbA1c percentages: [...] into estimated average glucose values. ??Diabetes Care 2008:31(8):0699-2900. Blood specimen (specimen) 04/21/2011 1:00 AM EST 04/21/2011 9:17 AM EST Siria Fuller MD CHEMISTRY ORDERABLES Performing Organization Address [facility]/State/ZIP Co de Phone Number [facility] * (ABNORMAL) DIFFERENTIAL, AUTOMATED (04/21/2011 1:00 AM EST) Neutrophil % 87.9(H) 34.0 - 71.0 % CERNER MILLENNIUM Neutrophil Absolute 14.22(H) 1.50 - 6.30 x10(3)/mc L [facility]ERNER MILLENNIUM Lymph % 6.3(L) 19.0 - 53.0 % CERNER MILLENNIUM Lymphocytes Abs 1.0 1.0 - 3.6 x10(3)/mc L CERNER MILLENNIUM Monocyte % 5.5 4.0 - 13.0 % CERNER MILLENNIUM Monocyte Abs 0.9 0.2 - 1.0 x10(3)/mc L CERNER MILLENNIUM Eos % 0.0 0.0 - 7.0 % CERNER MILLENNIUM Eosinophils Abs 0.0 0.0 - 0.5 x10(3)/mc L CERNER MILLENNIUM Basophil % 0.0 0.0 - 2.0 % CERNER MILLENNIUM Baso Absolute 0.0 0.0 - 0.2 x10(3)/mc L CERNER MILLENNIUM Immature Gran % 0.30 0.00 - 0.66 % CERNER MILLENNIUM Comment: Immature granulocytes(IG's)percentage and absolute count will include metamyelocytes, myelocytes, and promyelocytes. Blood smears from CBCs yielding IG's will be scanned manually for concordance. If this scan disagrees with the automated IG or if promyelocytes are noted, a manual differential will be performed. Immature Gran Absolute 0.05 0.00 - 0.05 x10(3)/mc L CERNER MILLENNIUM Blood specimen (specimen) 04/21/2011 1:00 AM EST 04/21/2011 1:10 AM EST Siria Fuller MD HEMATOLOGY ORDERABLE S [facility] * (ABNORMAL) Phosphorus (04/21/2011 1:00 AM EST) Phosphorus 2.2(L) 2.5 - 4.5 mg/dL CERNER MILLENNIUM Blood specimen (specimen) 04/21/2011 1:00 AM EST 04/21/2011 1:10 AM EST Siria Fuller MD CHEMISTRY ORDERABLES Performing Organization Address [facility] de Phone Number CERMAGDALENA WALLERENNIUM * Magnesium (04/21/2011 1:00 AM EST) Magnesium 0.77 0.69 - 1.07 mmol/L CERNER MILLENNIUM Blood specimen (specimen) 04/21/2011 1:00 AM EST 04/21/2011 1:10 AM EST Siria Fuller MD CHEMISTRY ORDERABLES Performing Organization Address [facility] de Phone Number CERMAGDALENA WALLERENNIUM * (ABNORMAL) Basic Metabolic Panel (non-fasting) (04/21/2011 1:00 AM EST) Glucose 153 60 - 199 mg/dL CERNER MILLENNIUM Comment:Diabetes: >=200 mg/d L plus symptoms Blood Urea Nitrogen 29(H) 8 - 18 mg/dL CERNER MILLENNIUM Creatinine 1.24(H) 0.70 - 1.20 mg/dL CERNER MILLENNIUM Sodium 139 135 - 145 mmol/L CERNER MILLENNIUM Potassium 4.1 3.5 - 5.0 mmol/L CERNER MILLENNIUM Comment: Please note: ??Patients with WBC >100,000 may have falsely elevated Potassium levels. ??For accurate Potassium quantification in these patients send serum separator tube (gold top) for subsequent determinations. ??Contact the Clinical Chemistry Laboratory if there are any questions. Chloride 115(H) 98 - 107 mmol/L CERNER MILLENNIUM Carbon Dioxide 18(L) 22 - 31 mmol/L CERNER MILLENNIUM Anion Gap 6 5 - 15 mmol/L CERNER MILLENNIUM Calcium 6.6(Criti sang) 8.5 - 10.5 mg/dL CERNER MILLENNIUM Comment:Called by: leanne, Read back by: Clara Monroe, Date/Time:04/21/11 01:52. Est Glomerular Filtration Rate 45(L) >=60 CERNER MILLENNIUM Comment: The National Kidney [...] disease. References: http://nkdep.nih.gov/resources/NKDEP_Suggestn4Labs_0606_508.pdf http://www.kidney.org/professionals/kls/pdf/faq_gfr.pdf Blood specimen (specimen) 04/21/2011 1:00 AM EST 04/21/2011 1:10 AM EST Siria Fuller MD CHEMISTRY ORDERABLES [facility] * Beta Hydroxybutyrate (04/21/2011 1:00 AM EST) Beta-hydroxybu turate 0.11 0.00 - 0.30 mmol/L JOHN DE LEON Comment: Reference range: ??0.00-0.30 mmo1/L, based on an overnight fast. ??Children may be higher. Blood specimen (specimen) 04/21/2011 1:00 AM EST 04/21/2011 1:10 AM EST Siria Fuller MD CHEMISTRY ORDERABLES Performing Organization Address [facility] de Phone Number CERNER MILLENNIUM * (ABNORMAL) CBC (with Diff) (04/21/2011 1:00 AM EST) White Blood Cell 16.2(H) 4.0 - 10.0 x10(3)/mc L CERNER MILLENNIUM Red Blood Cell 3.76(L) 3.93 - 5.22 x10(6)/mc L CERNER MILLENNIUM Hemoglobin 9.6(L) 11.2 - 15.7 gm/dL CERNER MILLENNIUM Hematocrit 28.1(L) 34.0 - 45.0 % CERNER MILLENNIUM Mean Cell Volume 74.7(L) 79.0 - 94.0 fL CERNER MILLENNIUM Mean Cell Hemoglobin 25.5(L) 26.6 - 32.2 pg CERNER MILLENNIUM Mean Cell Hemoglobin Concentration 34.2 32.0 - 36.5 gm/dL CERNER MILLENNIUM Platelet 193 145 - 370 x10(3)/mc L CERNER MILLENNIUM RDW Standard Deviation 44.8 35.0 - 46.0 fL CERNER MILLENNIUM RDW coefficient of variation 16.6(H) 10.9 - 14.4 % CERNER MILLENNIUM Mean Platelet Volume 9.0 9.0 - 12.0 fL CERNER MILLENNIUM Blood specimen (specimen) 04/21/2011 1:00 AM EST 04/21/2011 1:10 AM EST Siria Fuller MD HEMATOLOGY ORDERABLE S Performing Organization Address [facility] Phone Number CERMAGDALENA MILLENNIUM * Lactic acid, plasma (04/21/2011 12:28 AM EST) Lactic Acid 0.7 0.5 - 2.2 mmol/L CERNER MILLENNIUM Blood specimen (specimen) 04/21/2011 12:28 AM EST 04/21/2011 12:32 AM EST Lexi Read MD CHEMISTRY ORDERABLES Performing Organization Address [facility] Co de Phone Number CERNER MILLENNIUM * POCT GLUCOSE LAB USE ONLY (04/21/2011 12:23 AM EST) Glucose, POC 164 60 - 199 mg/dL [facility] Comment: Supplemental ranges: <110 mg/dL before meals <200 mg/dL all other times of the day Blood specimen (specimen) 04/21/2011 12:23 AM EST 04/21/2011 12:23 AM EST Lexi Read MD POINT OF CARE TEST O RDERARADHA Performing Organization Address [facility] de Phone Number [facility] * POCT GLUCOSE LAB USE ONLY (04/20/2011 11:16 PM EST) Glucose, POC 129 60 - 199 mg/dL [facility] Comment: Supplemental ranges: <110 mg/dL before meals <200 mg/dL all other times of the day Blood specimen (specimen) 04/20/2011 11:16 PM EST 04/20/2011 11:16 PM EST Lexi Read MD POINT OF CARE TEST O JESSICA Performing Organization Address [facility] Phone Number [facility] * POCT GLUCOSE LAB USE ONLY (04/20/2011 10:11 PM EST) Glucose, POC 129 60 - 199 mg/dL [facility] Comment: Supplemental ranges: <110 mg/dL before meals <200 mg/dL all other times of the day Blood specimen (specimen) 04/20/2011 10:11 PM EST 04/20/2011 10:11 PM EST Lexi Read MD POINT OF CARE TEST O RDERARADHA Performing Organization Address [facility] de Phone Number [facility] * (ABNORMAL) BLOOD GAS 2 ARTERIAL (04/20/2011 8:54 PM EST) pH, Arterial 7.27(Criti sang) [facility] 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 PCO2, Arterial 29(L) mmHg CERNE R MILLENNIUM PO2, Arterial 106(H) mmHg CERNER MILLENNIUM Bicarbonate, Arterial 12.8(L) mmol/L CERNER MILLENNIUM Base Excess, Arterial -14.1(L) mmol/L CERNER MILLENNIUM Hgb Blood Gas 8.7(L) gm/dL CERNER MILLENNIUM Comment: Total Hemoglobin (in gm/dL) ?Based on [facility] Hematology ranges: ?Age ?Reference Range Less than 3 days ?14.5 to 22.5 3 days to 2 weeks ? 12.5 to 20.5 2 weeks to 1 month ?10.0 to 18.0 1 to 6 months ?9.4 to 14.0 6 months to 2 years ? 10.5 to 13.5 2 to 6 years ?11.5 to 13.5 6 to 12 years ? 11.5 to 15.5 12 to 18 years (female) 12.0 to 16.0 ? (male) ?? 13.0 to 16.0 > 18 years ? (female) 11.2 to 15.7 ? (male) ?? 13.7 to 17.5 Oxyhemoglobin, Arterial 95.3 % CERNER MILLENNIUM Carboxyhemoglob in, Arterial 1.5 % CERNER MILLENNIUM Comment: Nonsmokers: 0.5-1.5% COHB Smokers: Variable, but usually less than 10% Toxic: 20-30% COHB Lethal: Greater than 60% COHB Methemoglobin, Arterial 0.6 % CERNER MILLENNIUM Na Whole Blood 138 mmol/L CERNE R MILLENNIUM K Whole Blood 4.0 mmol/L CERNER MILLENNIUM Comment: Please note: Patients with WBC >100,000 may have falsely elevated Potassium levels. Contact the Clinical Chemistry Laboratory if there are any questions. ICa Whole Blood 1.01(L) mmol/L CERN ER MILLENNIUM Comment: Reference Ranges: ?? < 19 yrs: 1.22 - 1.37 mmol/L ? Adults: 1.15 - 1.33 mmol/L Note: ??Total bilirubin higher than 20 mg/dL may lead to falsely low ionized calcium. CL Whole Blood 117(H) mmol/L CERNE R MILLENNIUM Gluc Whole Bld 113 mg/dL CERNE R MILLENNIUM Comment:Diabetes: >=200 mg/d L plus symptoms. FIO2 Art 40 % CERNER MILLENNIUM PF Ratio Art 265 CERNER MILLENNIUM Blood specimen (specimen) 04/20/2011 8:54 PM EST 04/20/2011 8:54 PM EST Lexi Read MD POINT OF CARE TEST O RDERABLES Performing Organization Address [facility] de Phone Number [facility] * POCT GLUCOSE LAB USE ONLY (04/20/2011 8:52 PM EST) Glucose, POC 125 60 - 199 mg/dL [facility] Comment: Supplemental ranges: <110 mg/dL before meals <200 mg/dL all other times of the day Blood specimen (specimen) 04/20/2011 8:52 PM EST 04/20/2011 8:52 PM EST Lexi Read MD POINT OF CARE TEST O RDERABLES Performing Organization Address [facility] de Phone Number [facility] * (ABNORMAL) Phosphorus (04/20/2011 7:45 PM EST) Phosphorus 1.5(L) 2.5 - 4.5 mg/dL [facility] Blood specimen (specimen) 04/20/2011 7:45 PM EST 04/20/2011 7:55 PM EST Lexi Read MD CHEMISTRY ORDERABLES Performing Organization Address [facility] Phone Number [facility] * Magnesium (04/20/2011 7:45 PM EST) Magnesium 0.78 0.69 - 1.07 mmol/L CERNER MILLENNIUM Blood specimen (specimen) 04/20/2011 7:45 PM EST 04/20/2011 7:55 PM EST Lexi Read MD CHEMISTRY ORDERABLES [facility] SRIDHARENNI[facility] * (ABNORMAL) Basic Metabolic Panel (non-fasting) (04/20/2011 7:45 PM EST) Glucose 120 60 - 199 mg/dL CERNER MILLENNIUM Comment:Diabetes: >=200 mg/d L plus symptoms Blood Urea Nitrogen 33(H) 8 - 18 mg/dL CERNER MILLENNIUM Creatinine 1.32(H) 0.70 - 1.20 mg/dL CERNER MILLENNIUM Sodium 138 135 - 145 mmol/L CERNER MILLENNIUM Potassium 4.5 3.5 - 5.0 mmol/L CERNER MILLENNIUM Comment: Please note: ??Patients with WBC >100,000 may have falsely elevated Potassium levels. ??For accurate Potassium quantification in these patients send serum separator tube (gold top) for subsequent determinations. ??Contact the Clinical Chemistry Laboratory if there are any questions. Chloride 115(H) 98 - 107 mmol/L CERNER MILLENNIUM Carbon Dioxide 17(L) 22 - 31 mmol/L CERNER MILLENNIUM Anion Gap 6 5 - 15 mmol/L CERNER MILLENNIUM Calcium 6.5(Criti sang) 8.5 - 10.5 mg/dL CERNER MILLENNIUM Comment: Result rechecked. Called by: CINTHYA , Read back by: Blane Bey, Date/Time:04/20/11 20:37. Est Glomerular Filtration Rate 42(L) >=60 CERNER MILLENNIUM Comment: The National Kidney [...] disease. References: http://nkdep.nih.gov/resources/NKDEP_Suggestn4Labs_0606_508.pdf http://www.kidney.org/professionals/kls/pdf/faq_gfr.pdf Blood specimen (specimen) 04/20/2011 7:45 PM EST 04/20/2011 7:55 PM EST Lexi Read MD CHEMISTRY ORDERABLES Performing Organization Address [facility] de Phone Number [facility] [employer] * POCT GLUCOSE LAB USE ONLY (04/20/2011 7:44 PM EST) Glucose, POC 125 60 - 199 mg/dL [facility] Comment: Supplemental ranges: <110 mg/dL before meals <200 mg/dL all other times of the day Blood specimen (specimen) 04/20/2011 7:44 PM EST 04/20/2011 7:44 PM EST Lexi Read MD POINT OF CARE TEST O RDERABLES Performing Organization Address [facility] Co de Phone Number [facility] [employer] * POCT GLUCOSE LAB USE ONLY (04/20/2011 6:43 PM EST) Glucose, POC 112 60 - 199 mg/dL [facility] Comment: Supplemental ranges: <110 mg/dL before meals <200 mg/dL all other times of the day Blood specimen (specimen) 04/20/2011 6:43 PM EST 04/20/2011 6:43 PM EST Lexi Read MD POINT OF CARE TEST O JESSICA Performing Organization Address City/[facility]/ZIP Co de Phone Number [facility] [employer] * POCT GLUCOSE LAB USE ONLY (04/20/2011 5:50 PM EST) Glucose, POC 105 60 - 199 mg/dL JOHN [employer] Comment: Supplemental ranges: <110 mg/dL before meals <200 mg/dL all other times of the day Blood specimen (specimen) 04/20/2011 5:50 PM EST 04/20/2011 5:50 PM EST Lexi Read MD POINT OF CARE TEST O JESSICA Performing Organization Address [facility] de Phone Number [facility] [employer] * (ABNORMAL) CARDIAC ENZYMES (04/20/2011 5:45 PM EST) Troponin-T 0.35(H) <=0.03 ng/mL [facility] [employer] Comment: 0.03 ng/mL: Represents the 99th percentile upper reference limit for normals. >0.03 ng/mL: Elevated cardiac troponin T level indicative of myocardial damage. Diagnosis of acute, evolving or recent MS requires a typical rise and gradual fall of cTnT with at least ONE of the following: a) Ischemic symptoms b) Development of pathologic Q waves on the ECG c) ECG changes indicative of eschemia (S-T segment elevation/depression) d) Coronary artery intervention Serial bloods should be obtained for testing on admission, at 6 to 9 hrs and again at 12 to 24 hrs if earlier samples are negative and the clinical index of suspicion is high. Reference: [Myocardial infarction redefined a consensus document of the Joint Society of Cardiology/[place] [employer] Committee for the redefinition of myocardial infarction. Journal of the [place] College [employer] 2000; 36: 959-969] Creatine Kinase 2218(H) 0 - 160 unit/L JOHN [employer] Comment:result rechecked NM Blood specimen (specimen) 04/20/2011 5:45 PM EST 04/20/2011 6:05 PM EST Lexi Read MD CHEMISTRY ORDERABLES CERMAGDALENA MILLENNIUM * (ABNORMAL) DIFFERENTIAL, AUTOMATED (04/20/2011 5:45 PM EST) Neutrophil % 89.8(H) 34.0 - 71.0 % CERNER MILLENNIUM Neutrophil Absolute 18.10(H) 1.50 - 6.30 x10(3)/mc L CERNER MILLENNIUM Lymph % 4.7(L) 19.0 - 53.0 % CERNER MILLENNIUM Lymphocytes Abs 1.0 1.0 - 3.6 x10(3)/mc L CERNER MILLENNIUM Monocyte % 5.2 4.0 - 13.0 % CERNER MILLENNIUM Monocyte Abs 1.0 0.2 - 1.0 x10(3)/mc L CERNER MILLENNIUM Eos % 0.0 0.0 - 7.0 % CERNER MILLENNIUM Eosinophils Abs 0.0 0.0 - 0.5 x10(3)/mc L CERNER MILLENNIUM Basophil % 0.0 0.0 - 2.0 % CERNER MILLENNIUM Baso Absolute 0.0 0.0 - 0.2 x10(3)/mc L CERNER MILLENNIUM Immature Gran % 0.30 0.00 - 0.66 % CERNER MILLENNIUM Comment: Immature granulocytes(IG's)percentage and absolute count will include metamyelocytes, myelocytes, and promyelocytes. Blood smears from CBCs yielding IG's will be scanned manually for concordance. If this scan disagrees with the automated IG or if promyelocytes are noted, a manual differential will be performed. Immature Gran Absolute 0.06(H) 0.00 - 0.05 x10(3)/mc L CERNER MILLENNIUM Blood specimen (specimen) 04/20/2011 5:45 PM EST 04/20/2011 6:00 PM EST Lexi Read MD HEMATOLOGY ORDERABLE S JOHN EVANSIUM * Lactic acid, plasma (04/20/2011 5:45 PM EST) Lactic Acid 0.9 0.5 - 2.2 mmol/L CERNER MILLENNIUM Blood specimen (specimen) 04/20/2011 5:45 PM EST 04/20/2011 6:01 PM EST Lexi Read MD CHEMISTRY ORDERABLES [facility] MILLENNIUM * (ABNORMAL) CBC (with Diff) (04/20/2011 5:45 PM EST) White Blood Cell 20.2(H) 4.0 - 10.0 x10(3)/mc L CERNER MILLENNIUM Red Blood Cell 3.96 3.93 - 5.22 x10(6)/mc L CERNER MILLENNIUM Hemoglobin 9.8(L) 11.2 - 15.7 gm/dL CERNER MILLENNIUM Hematocrit 29.5(L) 34.0 - 45.0 % CERNER MILLENNIUM Mean Cell Volume 74.5(L) 79.0 - 94.0 fL CERNER MILLENNIUM Mean Cell Hemoglobin 24.7(L) 26.6 - 32.2 pg CERNER MILLENNIUM Mean Cell Hemoglobin Concentration 33.2 32.0 - 36.5 gm/dL CERNER MILLENNIUM Platelet 227 145 - 370 x10(3)/mc L CERNER MILLENNIUM RDW Standard Deviation 44.3 35.0 - 46.0 fL CERNER MILLENNIUM RDW coefficient of variation 16.2(H) 10.9 - 14.4 % CERNER MILLENNIUM Mean Platelet Volume 8.5(L) 9.0 - 12.0 fL CERNER MILLENNIUM Blood specimen (specimen) 04/20/2011 5:45 PM EST 04/20/2011 6:00 PM EST Lexi Read MD HEMATOLOGY ORDERABLE S [facility] * Beta Hydroxybutyrate (04/20/2011 5:45 PM EST) Beta-hydroxybu turate 0.10 0.00 - 0.30 mmol/L CERNER MILLENNIUM Comment: Reference range: ??0.00-0.30 mmo1/L, based on an overnight fast. ??Children may be higher. Blood specimen (specimen) 04/20/2011 5:45 PM EST 04/20/2011 6:00 PM EST Lexi Read MD CHEMISTRY ORDERABLES CERNER MILLENNIUM * (ABNORMAL) BLOOD GAS 2 VENOUS (04/20/2011 4:39 PM EST) pH, Venous 7.26(Criti sang) CERNER MILLENNIUM PCO2, Venous 44 mmHg CERNER MILLENNIUM PO2, Venous 30 mmHg CERNER MILLENNIUM Bicarbonate, Venous 19.5 mmol/L CERNER MILLENNIUM Base Excess, Venous -7.6 mmol/L CERNER MILLENNIUM Hgb Blood Gas 10.1(L) gm/dL CERNER MILLENNIUM Comment: Total Hemoglobin (in gm/dL) ?Based on [facility] Hematology ranges: ?Age ?Reference Range Less than 3 days ?14.5 to 22.5 3 days to 2 weeks ? 12.5 to 20.5 2 weeks to 1 month ?10.0 to 18.0 1 to 6 months ?9.4 to 14.0 6 months to 2 years ? 10.5 to 13.5 2 to 6 years ?11.5 to 13.5 6 to 12 years ? 11.5 to 15.5 12 to 18 years (female) 12.0 to 16.0 ? (male) ?? 13.0 to 16.0 > 18 years ? (female) 11.2 to 15.7 ? (male) ?? 13.7 to 17.5 Oxyhemoglobin, Venous 58.7 % CERNER MILLENNIUM Carboxyhemoglob in, Venous 1.4 % CERNER MILLENNIUM Comment: Nonsmokers: 0.5-1.5% COHB Smokers: Variable, but usually less than 10% Toxic: 20-30% COHB Lethal: Greater than 60% COHB Methemoglobin, Venous 0.8 % CERNER MILLENNIUM Na Whole Blood 139 mmol/L CERNE R MILLENNIUM K Whole Blood 4.5 mmol/L CERNER MILLENNIUM Comment: Please note: Patients with WBC >100,000 may have falsely elevated Potassium levels. Contact the Clinical Chemistry Laboratory if there are any questions. ICa Whole Blood 1.10(L) mmol/L CERN ER MILLENNIUM Comment: Reference Ranges: ?? < 19 yrs: 1.22 - 1.37 mmol/L ? Adults: 1.15 - 1.33 mmol/L Note: ??Total bilirubin higher than 20 mg/dL may lead to falsely low ionized calcium. CL Whole Blood 113(H) mmol/L CERNE R MILLENNIUM Gluc Whole Bld 109 mg/dL CERNE R MILLENNIUM Comment:Diabetes: >=200 mg/d L plus symptoms Fraction of Inspired Oxygen, Venous 40 % CERNER MILLENNIUM Blood Gas Source Venous CERNER MILLENNIUM Blood specimen (specimen) 04/20/2011 4:39 PM EST 04/20/2011 4:39 PM EST Lexi Read MD POINT OF CARE TEST O RDERARADHA Performing Organization Address [facility] de Phone Number CERMAGDALENA [facility] * (ABNORMAL) POCT GLUCOSE LAB USE ONLY (04/20/2011 4:38 PM EST) Glucose, POC 228(H) 60 - 199 mg/dL CERNER MILLENNIUM Comment: Supplemental ranges: <110 mg/dL before meals <200 mg/dL all other times of the day Blood specimen (specimen) 04/20/2011 4:38 PM EST 04/20/2011 4:38 PM EST Lexi Read MD POINT OF CARE TEST O RDERARADHA Performing Organization Address [facility]/ZIP Co de Phone Number CERMAGDALENA 23pressENNIUM * POCT GLUCOSE LAB USE ONLY (04/20/2011 4:05 PM EST) Glucose, POC 110 60 - 199 mg/dL [facility] Comment: Supplemental ranges: <110 mg/dL before meals <200 mg/dL all other times of the day Blood specimen (specimen) 04/20/2011 4:05 PM EST 04/20/2011 4:05 PM EST Lexi Read MD POINT OF CARE TEST O RDERABLES Performing Organization Address [facility] Phone Number [facility] * (ABNORMAL) Phosphorus (04/20/2011 4:00 PM EST) Phosphorus 1.2(Critic al) 2.5 - 4.5 mg/dL [facility] Comment: Result rechecked. Called by: CINTHYA, Read back by:Cris Montejo, Date/Time:04/20/11 17:01. Blood specimen (specimen) 04/20/2011 4:00 PM EST 04/20/2011 4:15 PM EST Lexi Read MD CHEMISTRY ORDERABLES Performing Organization Address [facility] Number [facility] * Magnesium (04/20/2011 4:00 PM EST) Pathologist [facility] Magnesium 0.80 0.69 - 1.07 mmol/L [facility] Blood specimen (specimen) 04/20/2011 4:00 PM EST 04/20/2011 4:15 PM EST Lexi Read MD CHEMISTRY ORDERABLES Performing Organization Address [facility] Phone Number [facility] * (ABNORMAL) Basic Metabolic Panel (non-fasting) (04/20/2011 4:00 PM EST) Glucose 129 60 - 199 mg/dL [facility] Comment:Diabetes: >=200 mg/d L plus symptoms Blood Urea Nitrogen 37(H) 8 - 18 mg/dL CERNER MILLENNIUM Creatinine 1.37(H) 0.70 - 1.20 mg/dL CERNER MILLENNIUM Sodium 139 135 - 145 mmol/L CERNER MILLENNIUM Potassium 4.3 3.5 - 5.0 mmol/L [facility]ERN[facility] MILLENNIUM Comment: Please note: ??Patients with WBC >100,000 may have falsely elevated Potassium levels. ??For accurate Potassium quantification in these patients send serum separator tube (gold top) for subsequent determinations. ??Contact the Clinical Chemistry Laboratory if there are any questions. Chloride 114(H) 98 - 107 mmol/L CERNER MILLENNIUM Carbon Dioxide 18(L) 22 - 31 mmol/L CERNER MILLENNIUM Anion Gap 7 5 - 15 mmol/L CERNER MILLENNIUM Calcium 6.9(Criti sang) 8.5 - 10.5 mg/dL [facility]ILL[facility]NI[facility] Comment: Result rechecked. Called by: CINTHYA, Read back by:Cris Montejo, Date/Time:04/20/11 17:01. Est Glomerular Filtration Rate 40(L) >=60 CERNER MILLENNIUM Comment: The National Kidney [...] disease. References: http://nkdep.nih.gov/resources/NKDEP_Suggestn4Labs_0606_508.pdf http://www.kidney.org/professionals/kls/pdf/faq_gfr.pdf Blood specimen (specimen) 04/20/2011 4:00 PM EST 04/20/2011 4:15 PM EST Lexi Read MD CHEMISTRY ORDERABLES [facility]NI[facility] * (ABNORMAL) BLOOD GAS 2 ARTERIAL (04/20/2011 1:53 PM EST) pH, Arterial 7.28(Criti sang) CERNER MILLENNIUM PCO2, Arterial 39 mmHg CERNE R MILLENNIUM PO2, Arterial 108(H) mmHg CERNER MILLENNIUM Bicarbonate, Arterial 18.0(L) mmol/L CERNER MILLENNIUM Base Excess, Arterial -8.8(L) mmol/L CERNER MILLENNIUM Hgb Blood Gas 10.2(L) gm/dL [facility]ERNER MILLENNIUM Comment: Total Hemoglobin (in gm/dL) ?Based on [facility] Hematology ranges: ?Age ?Reference Range Less than 3 days ?14.5 to 22.5 3 days to 2 weeks ? 12.5 to 20.5 2 weeks to 1 month ?10.0 to 18.0 1 to 6 months ?9.4 to 14.0 6 months to 2 years ? 10.5 to 13.5 2 to 6 years ?11.5 to 13.5 6 to 12 years ? 11.5 to 15.5 12 to 18 years (female) 12.0 to 16.0 ? (male) ?? 13.0 to 16.0 > 18 years ? (female) 11.2 to 15.7 ? (male) ?? 13.7 to 17.5 Oxyhemoglobin, Arterial 96.8 % CERNER MILLENNIUM Carboxyhemoglob in, Arterial 0.8 % CERNER MILLENNIUM Comment: Nonsmokers: 0.5-1.5% COHB Smokers: Variable, but usually less than 10% Toxic: 20-30% COHB Lethal: Greater than 60% COHB Methemoglobin, Arterial 0.3 % CERNER MILLENNIUM Na Whole Blood 138 mmol/L CERNE R MILLENNIUM K Whole Blood 4.5 mmol/L CERNER MILLENNIUM Comment: Please note: Patients with WBC >100,000 may have falsely elevated Potassium levels. Contact the Clinical Chemistry Laboratory if there are any questions. ICa Whole Blood 1.05(L) mmol/L CERN ER MILLENNIUM Comment: Reference Ranges: ?? < 19 yrs: 1.22 - 1.37 mmol/L ? Adults: 1.15 - 1.33 mmol/L Note: ??Total bilirubin higher than 20 mg/dL may lead to falsely low ionized calcium. CL Whole Blood 115(H) mmol/L CERNE R MILLENNIUM Gluc Whole Bld 163 mg/dL CERNE R MILLENNIUM Comment:Diabetes: >=200 mg/d L plus symptoms. FIO2 Art 40 % CERNER MILLENNIUM PF Ratio Art 270 CERNER MILLENNIUM Blood specimen (specimen) 04/20/2011 1:53 PM EST 04/20/2011 1:53 PM EST Lexi Read MD POINT OF CARE TEST O JESSICA Performing Organization Address [facility] Co de Phone Number CERNER MILLENNIUM * POCT GLUCOSE LAB USE ONLY (04/20/2011 1:48 PM EST) Glucose, POC 179 60 - 199 mg/dL CERNER MILLENNIUM Comment: Supplemental ranges: <110 mg/dL before meals <200 mg/dL all other times of the day Blood specimen (specimen) 04/20/2011 1:48 PM EST 04/20/2011 1:48 PM EST Lexi Read MD POINT OF CARE TEST O RDERARADHA Performing Organization Address [place]/[facility] Co de Phone Number CERNER MILLENNIUM * Vancomycin, trough (04/20/2011 1:40 PM EST) Vancomycin, Trough 17.1 mg/L Aminta DE LEON Comment: Therapeutic range for complicated infections such as bacteremia, endocarditis, osteomyelitis, meningitis, and hospital-acquired pneumonia caused by S. aureus: 15-20 mg/L Therapeutic range for other indications: 10-15 mg/L Toxic: >25mg/L Reference: Vancomycin Therapeutic Monitoring: Review and Recommendations from the ASHP, IDSA and SIDP Task Force. ??Am J Health-Syst Pharm. 2009; 66:82-98 Blood specimen (specimen) 04/20/2011 1:40 PM EST 04/20/2011 1:52 PM EST Lexi Read MD CHEMISTRY ORDERABLES [facility] * Echo Transthoracic (Complete) (04/20/2011 1:23 PM EST) EF 70 HEARTLAB SYSTEM Anatomical Region Laterality Modality Other 04/20/2011 Narrative 04/20/2011 2:13 PM EST Procedure: ? Transthoracic Echocardiogram Patient: ? BETTIE ROXANN Ramirez ?(Age): 1955(55) Med Rec#: ?[id number] ? Sex: ?F ? [place] Loc[place] [place] Ht / Wt: ??(cm)/82(kg) ? Pt. Loc: ?BSA: ? Study Date: ?04/20/2011 ? Pt. Type: Inpatient Tape: ? Referring: Santy King Musa ([id number]) Electrical Contractor: Ruiz Casper [facility] Interpreting Fellow: Santy King ([id number]) Diagnosis: ??Shock/hypotension (785.5) CPT Code(s): ??Echo Full (64726), ??Spectral Doppler (39516), ??Color Doppler (65451), Indication(s): ??LV ejection fraction Rhythm: HR ?BP ?132/64 ?? SUMMARY: 1. Left ventricular chamber size, wall thickness, global and segmental systolic function are within normal limits. Ejection fraction is estimated to be 70%.Doppler assessment is consistent with normal left sided filling pressure. Right ventricular chamber size, wall thickness, and systolic function are within normal limits.The estimated pulmonary artery systolic pressure is at least 30 mmHg. 2. The aortic valve is tricuspid.The non coronary cusp of the aortic valve is focally thickened. There is no evidence of aortic valve stenosis.Mild (1+/4+) aortic valve regurgitation is present.A vegetation cannot be ruled out on the aortic valve. 3. The mitral valve appears normal in structure and function.There is trace mitral regurgitation present. 4. See remainder of report for additional findings. FINDINGS: Left Ventricle ?Left ventricular chamber size, wall thickness, global and segmental systolic function are within normal limits. Ejection fraction is estimated to be 70%. ?Doppler assessment is consistent with normal left sided filling pressure. Left Atrium ?The left atrium is normal in size. Right Ventricle ?Right ventricular chamber size, wall thickness, and systolic function are within normal limits. ?The estimated pulmonary artery systolic pressure is 37 mmHg. Right Atrium ?The right atrium is normal in size. Aortic Valve ?The aortic valve is tricuspid. ?The non coronary cusp of the aortic valve is thickened. ?There is no evidence of aortic valve stenosis. ?Mild (1+/4+) aortic valve regurgitation is present. ?A vegetation cannot be ruled out on the aortic valve. Mitral Valve ?The mitral valve appears normal in structure and function. ?There is trace mitral regurgitation present. Tricuspid Valve ?The tricuspid valve appears normal in structure and function. ?There is mild (1+/4+) tricuspid regurgitation present. Pulmonic Valve ?The pulmonic valve appears normal in structure and function. Pericardium ?The pericardium appears normal and there is no evidence of a pericardial effusion. Pulmonary Artery ?The main pulmonary artery appears normal. Venous ?The inferior vena cava is poorly visualized. Misc ?See remainder of report for additional findings. ?I personally reviewed the images and edited the resident's/fellow's interpretation. ?Two-dimensional echo, spectral Doppler and color Doppler performed. Wall Motion: Segment Name ?Rest ? Base-Anteroseptal ?? Normal ? Base-Anterior ? Normal ? Base-Anterolateral ??Normal ? Base-Posterolateral Normal ? Base-Inferior ? Normal ? Base-Inferoseptal ?? Normal ? Mid-Anteroseptal ?Normal ? Mid-Anterior ?Normal ? Mid-Anterolateral ?? Normal ? Mid-Posterolateral ??Normal ? Mid-Inferior ?Normal ? Mid-Inferoseptal ?Normal ? Demotte-Septal ? Normal ? Demotte-Anterior ? Normal ? Demotte-Lateral ?Normal ? Demotte-Inferior ? Normal ? Demotte-Tip ?Normal ? Chambers ?Value ?Units (Range) ? LV EF Est ? 70 ? % (55 to 80) ? LVIDd 2D ?4.1 ?cm ? Ao root ? 2.7 ?cm (2.1 to 3.6) ? Mitral Valve ?Value ?Units (Range) ? E peak ?1 ?m/sec ? E/A ratio ? 1.3 ?ratio ? MVDT ?159 ?msec ? E1 ?0.14 ? m/sec ? E/E1 ?7 ?ratio ? Tricuspid/Pulmonic Valves ?Value ?Units (Range) ? TR peak brenton ? 2.9 ?m/sec ? RAP ? 3 ?mmHg ? RVSP/PASP ? 37 ? mmHg ? This report has been electronically signed by: Jann Vigil. MD Olivia ? 04/20/2011 14:11:39 Images reviewed and interpretation verified [facility] Cardiac Ultrasound Laboratory Resulting Agency Comment [id number] Procedure Note Jann Baker MD - 04/20/2011 Procedure: Transthoracic Echocardiogram Patient: BETTIE WEBSTER(Age): 1955(55) Med Rec#: [id number] Sex: F [place] [facility] [place] Ht / Wt: (cm)/82(kg) Pt. Loc: BSA: Study Date: 04/20/2011 Pt. Type: Inpatient Tape: Referring: Santy King ([id number]) Electrical Contractor: Ruiz Casper RDCS Interpreting Fellow: Fernando Santy Vigil ([id number]) Diagnosis: Shock/hypotension (785.5) CPT Code(s): Echo Full (22983), Spectral Doppler (59131), Color Doppler (82252), Indication(s): LV ejection fraction Rhythm: HR BP 132/64 SUMMARY: 1. Left ventricular chamber size, wall thickness, global and segmental systolic function are within normal limits. Ejection fraction is estimated to be 70%.Doppler assessment is consistent with normal left sided filling pressure. Right ventricular chamber size, wall thickness, and systolic function are within normal limits.The estimated pulmonary artery systolic pressure is at least 30 mmHg. 2. The aortic valve is tricuspid.The non coronary cusp of the aortic valve is focally thickened. There is no evidence of aortic valve stenosis.Mild (1+/4+) aortic valve regurgitation is present.A vegetation cannot be ruled out on the aortic valve. 3. The mitral valve appears normal in structure and function.There is trace mitral regurgitation present. 4. See remainder of report for additional findings. FINDINGS: Left Ventricle Left ventricular chamber size, wall thickness, global and segmental systolic function are within normal limits. Ejection fraction is estimated to be 70%. Doppler assessment is consistent with normal left sided filling pressure. Left Atrium The left atrium is normal in size. Right Ventricle Right ventricular chamber size, wall thickness, and systolic function are within normal limits. The estimated pulmonary artery systolic pressure is 37 mmHg. Right Atrium The right atrium is normal in size. Aortic Valve The aortic valve is tricuspid. The non coronary cusp of the aortic valve is thickened. There is no evidence of aortic valve stenosis. Mild (1+/4+) aortic valve regurgitation is present. A vegetation cannot be ruled out on the aortic valve. Mitral Valve The mitral valve appears normal in structure and function. There is trace mitral regurgitation present. Tricuspid Valve The tricuspid valve appears normal in structure and function. There is mild (1+/4+) tricuspid regurgitation present. Pulmonic Valve The pulmonic valve appears normal in structure and function. Pericardium The pericardium appears normal and there is no evidence of a pericardial effusion. Pulmonary Artery The main pulmonary artery appears normal. Venous The inferior vena cava is poorly visualized. Misc See remainder of report for additional findings. I personally reviewed the images and edited the resident's/fellow's interpretation. Two-dimensional echo, spectral Doppler and color Doppler performed. Wall Motion: Segment Name Rest Base-Anteroseptal Normal Base-Anterior Normal Base-Anterolateral Normal Base-Posterolateral Normal Base-Inferior Normal Base-Inferoseptal Normal Mid-Anteroseptal Normal Mid-Anterior Normal Mid-Anterolateral Normal Mid-Posterolateral Normal Mid-Inferior Normal Mid-Inferoseptal Normal Demotte-Septal Normal Demotte-Anterior Normal Demotte-Lateral Normal Demotte-Inferior Normal Demotte-Tip Normal Chambers Value Units (Range) LV EF Est 70 % (55 to 80) LVIDd 2D 4.1 cm Ao root 2.7 cm (2.1 to 3.6) Mitral Valve Value Units (Range) E peak 1 m/sec E/A ratio 1.3 ratio MVDT 159 msec E1 0.14 m/sec E/E1 7 ratio Tricuspid/Pulmonic Valves Value Units (Range) TR peak brenton 2.9 m/sec RAP 3 mmHg RVSP/PASP 37 mmHg This report has been electronically signed by: Jann Baker MD 04/20/2011 14:11:39 Images reviewed and interpretation verified [facility] Cardiac Ultrasound Laboratory Lexi Read MD ECHO ORDERABLES * POCT GLUCOSE LAB USE ONLY (04/20/2011 1:15 PM EST) [facility] Signature Glucose, POC 180 60 - 199 mg/dL JOHN 23pressCONNOR Comment: Supplemental ranges: <110 mg/dL before meals <200 mg/dL all other times of the day Blood specimen (specimen) 04/20/2011 1:15 PM EST 04/20/2011 1:15 PM EST Lexi Read MD POINT OF CARE TEST O RDERABLES [facility] [place] * EKG 12 Lead (04/20/2011 12:25 PM EST) Pathologist [facility] Ventricular rate 77 BPM MUSE SYSTEM Atrial Rate 77 BPM MUSE SYSTEM P-R Interval 144 ms MUSE SYSTEM QRS Duration 86 ms MUSE SYSTEM Q-T Interval 512 ms MUSE SYSTEM QTC Calculated (Bezet) 579 ms MUSE SYSTEM Calculated P [place] 55 degrees MUSE SYSTEM Calculated R [place] 30 degrees MUSE SYSTEM Calculated T [place] 44 degrees MUSE SYSTEM INTERPRETATION Normal sinus rhythm Low voltage QRS Prolonged QT Abnormal ECG When compared with ECG of 19-APR-2011 20:47, (unconfirmed) QT has lengthened Confirmed by MD ALEAH, MARTINA ([id number]) on 04/20/2011 4:22:31 PM MUSE SYSTEM 04/20/2011 12:2 5 PM EST 04/20/2011 4:22 PM EST Lexi Read MD ECG ORDERABLES Performing Organization Address City/[facility]/ZIP Co de Phone Number MUSE SYSTEM * POCT GLUCOSE LAB USE ONLY (04/20/2011 12:21 PM EST) Pathologist [facility] Glucose, POC 181 60 - 199 mg/dL CERNER MILLENNIUM Comment: Supplemental ranges: <110 mg/dL before meals <200 mg/dL all other times of the day Blood specimen (specimen) 04/20/2011 12:21 PM EST 04/20/2011 12:21 PM EST Lexi Read MD POINT OF CARE TEST O RDERABLES Performing Organization Address City/[facility]/ZIP Co de Phone Number CERNER MILLENNIUM * (ABNORMAL) DIFFERENTIAL, AUTOMATED (04/20/2011 12:06 PM EST) Pathologist [facility] Neutrophil % 84.1(H) 34.0 - 71.0 % CERNER MILLENNIUM Neutrophil Absolute 17.58(H) 1.50 - 6.30 x10(3)/mc L CERNER MILLENNIUM Lymph % 8.4(L) 19.0 - 53.0 % CERNER MILLENNIUM Lymphocytes Abs 1.8 1.0 - 3.6 x10(3)/mc L CERNER MILLENNIUM Monocyte % 7.1 4.0 - 13.0 % CERNER MILLENNIUM Monocyte Abs 1.5(H) 0.2 - 1.0 x10(3)/mc L CERNER MILLENNIUM Eos % 0.0 0.0 - 7.0 % CERNER MILLENNIUM Eosinophils Abs 0.0 0.0 - 0.5 x10(3)/mc L CERNER MILLENNIUM Basophil % 0.0 0.0 - 2.0 % CERNER MILLENNIUM Baso Absolute 0.0 0.0 - 0.2 x10(3)/mc L CERNER MILLENNIUM Immature Gran % 0.40 0.00 - 0.66 % CERNER MILLENNIUM Comment: Immature granulocytes(IG's)percentage and absolute count will include metamyelocytes, myelocytes, and promyelocytes. Blood smears from CBCs yielding IG's will be scanned manually for concordance. If this scan disagrees with the automated IG or if promyelocytes are noted, a manual differential will be performed. Immature Gran Absolute 0.09(H) 0.00 - 0.05 x10(3)/mc L CERNER MILLENNIUM Blood specimen (specimen) 04/20/2011 12:06 PM EST 04/20/2011 12:27 PM EST Lexi Read MD HEMATOLOGY ORDERABLE S Performing Organization Address [facility] Co de Phone Number JOHN EVANSIUM * Lactic acid, plasma (04/20/2011 12:06 PM EST) Lactic Acid 1.5 0.5 - 2.2 mmol/L CERNER MILLENNIUM Blood specimen (specimen) 04/20/2011 12:06 PM EST 04/20/2011 12:27 PM EST Lexi Read MD CHEMISTRY ORDERABLES CERMAGDALENA WALLERENNIUM * (ABNORMAL) CBC (with Diff) (04/20/2011 12:06 PM EST) White Blood Cell 20.9(H) 4.0 - 10.0 x10(3)/mc L CERNER MILLENNIUM Red Blood Cell 3.44(L) 3.93 - 5.22 x10(6)/mc L CERNER MILLENNIUM Hemoglobin 8.6(L) 11.2 - 15.7 gm/dL CERNER MILLENNIUM Hematocrit 25.6(L) 34.0 - 45.0 % CERNER MILLENNIUM Mean Cell Volume 74.4(L) 79.0 - 94.0 fL CERNER MILLENNIUM Mean Cell Hemoglobin 25.0(L) 26.6 - 32.2 pg CERNER MILLENNIUM Mean Cell Hemoglobin Concentration 33.6 32.0 - 36.5 gm/dL CERNER MILLENNIUM Platelet 266 145 - 370 x10(3)/mc L CERNER MILLENNIUM RDW Standard Deviation 46.2(H) 35.0 - 46.0 fL CERNER MILLENNIUM RDW coefficient of variation 16.8(H) 10.9 - 14.4 % CERNER MILLENNIUM Mean Platelet Volume 8.3(L) 9.0 - 12.0 fL CERNER MILLENNIUM Blood specimen (specimen) 04/20/2011 12:06 PM EST 04/20/2011 12:27 PM EST Lexi Read MD HEMATOLOGY ORDERABLE S CERMAGDALENA WALLERENNIUM * LIPASE (04/20/2011 12:00 PM EST) Lipase 12 0 - 60 unit/L CERNER MILLENNIUM Blood specimen (specimen) 04/20/2011 12:00 PM EST 04/20/2011 12:29 PM EST Lexi Read MD CHEMISTRY ORDERABLES CERMAGDALENA WALLERENNIUM * (ABNORMAL) AMYLASE (04/20/2011 12:00 PM EST) Amylase 245(H) 28 - 100 unit/L CERNER MILLENNIUM Blood specimen (specimen) 04/20/2011 12:00 PM EST 04/20/2011 12:29 PM EST Lexi Read MD CHEMISTRY ORDERABLES [facility] * BETA HYDROXYBUTYRATE (04/20/2011 12:00 PM EST) Beta-hydroxybu turate <0.10 0.00 - 0.30 mmol/L [facility] Comment: Reference range: ??0.00-0.30 mmo1/L, based on an overnight fast. ??Children may be higher. Blood specimen (specimen) 04/20/2011 12:00 PM EST 04/20/2011 12:27 PM EST Lexi Read MD CHEMISTRY ORDERABLES Performing Organization Address [facility] Phone Number [facility] * (ABNORMAL) Phosphorus (04/20/2011 12:00 PM EST) Phosphorus 1.3(Critic al) 2.5 - 4.5 mg/dL [facility] Comment: Result rechecked. Called by: MARION, Read back by: Lili Clemons, Date/Time:04/20/11 13:13. Blood specimen (specimen) 04/20/2011 12:00 PM EST 04/20/2011 12:27 PM EST Lexi Read MD CHEMISTRY ORDERABLES Performing Organization Address [facility] Phone Number [facility] * (ABNORMAL) Magnesium (04/20/2011 12:00 PM EST) Magnesium 0.68(L) 0.69 - 1.07 mmol/L [facility] Blood specimen (specimen) 04/20/2011 12:00 PM EST 04/20/2011 12:27 PM EST Lexi Read MD CHEMISTRY ORDERABLES Performing Organization Address [facility] Phone Number [facility] * (ABNORMAL) Basic Metabolic Panel (non-fasting) (04/20/2011 12:00 PM EST) Glucose 197 60 - 199 mg/dL CERNER MILLENNIUM Comment:Diabetes: >=200 mg/d L plus symptoms Blood Urea Nitrogen 40(H) 8 - 18 mg/dL CERNER MILLENNIUM Creatinine 1.64(H) 0.70 - 1.20 mg/dL CERNER MILLENNIUM Sodium 139 135 - 145 mmol/L CERNER MILLENNIUM Potassium 4.2 3.5 - 5.0 mmol/L CERNER MILLENNIUM Comment: Please note: ??Patients with WBC >100,000 may have falsely elevated Potassium levels. ??For accurate Potassium quantification in these patients send serum separator tube (gold top) for subsequent determinations. ??Contact the Clinical Chemistry Laboratory if there are any questions. Chloride 114(H) 98 - 107 mmol/L CERNER MILLENNIUM Carbon Dioxide 18(L) 22 - 31 mmol/L CERNER MILLENNIUM Anion Gap 7 5 - 15 mmol/L CERNER MILLENNIUM Calcium 6.7(Criti sang) 8.5 - 10.5 mg/dL CERNER MILLENNIUM Comment: Result rechecked. Called by: MARION, Read back by: Lili Clemons, Date/Time:04/20/11 13:12. Est Glomerular Filtration Rate 33(L) >=60 CERNER MILLENNIUM Comment: The National Kidney [...] disease. References: http://nkdep.nih.gov/resources/NKDEP_Suggestn4Labs_0606_508.pdf http://www.kidney.org/professionals/kls/pdf/faq_gfr.pdf Blood specimen (specimen) 04/20/2011 12:00 PM EST 04/20/2011 12:27 PM EST Lexi Read MD CHEMISTRY ORDERABLES Performing Organization Address [facility] de Phone Number [facility] * Prepare RBC (04/20/2011 11:45 AM EST) Dispensed? Yes [facility] Blood specimen (specimen) 04/20/2011 11:45 AM EST 04/20/2011 11:44 AM EST Lexi Read MD BLOOD BANK PRODUCT O RDERABLES Performing Organization Address [facility] de Phone Number [facility] * (ABNORMAL) POCT GLUCOSE LAB USE ONLY (04/20/2011 11:17 AM EST) Glucose, POC 204(H) 60 - 199 mg/dL [facility] Comment: Supplemental ranges: <110 mg/dL before meals <200 mg/dL all other times of the day Blood specimen (specimen) 04/20/2011 11:17 AM EST 04/20/2011 11:17 AM EST Lexi Read MD POINT OF CARE TEST O RDERABLES Performing Organization Address [facility] de Phone Number [facility] * Blood culture (04/20/2011 11:00 AM EST) Blood Culture ? Patient Name: ROXANN BAXTER ? Ordered By: LEXI READ ? MR#: [id number] ?LOC: ??1EST ? /Sex: ??1955 (55 years), ? Female ? PROCEDURE: Blood Culture ?SOURCE: Blood ? COLLECTED: 04/20/2011 11:00 ? BODY SITE: Arterial Line ? STARTED: 04/20/2011 11:29 ? FINAL REPORT ? Final Report ? Verified:2011 15:06 ? No growth at 5 days. ? PRELIMINARY REPORT ? Preliminary Report ? Verified:2011 15:07 ? No growth at 4 days. ? JOHN DE LEON Blood specimen (specimen) ARTERIAL LINE / Unknown 04/20/2011 11:00 AM EST 04/20/2011 11:29 AM EST Lexi Read MD MICROBIOLOGY - BLOOD ORDERABLES [facility] * (ABNORMAL) POCT GLUCOSE LAB USE ONLY (04/20/2011 10:11 AM EST) Glucose, POC 250(H) 60 - 199 mg/dL JOHN DE LEON Comment: Supplemental ranges: <110 mg/dL before meals <200 mg/dL all other times of the day Blood specimen (specimen) 04/20/2011 10:11 AM EST 04/20/2011 10:11 AM EST Lexi Read MD POINT OF CARE TEST O RDERABLES Performing Organization Address [facility] de Phone Number JOHN DE LEON * (ABNORMAL) Cardiac Enzymes (04/20/2011 10:00 AM EST) Troponin-T 0.48(H) <=0.03 ng/mL JOHN DE LEON Comment: 0.03 ng/mL: Represents the 99th percentile upper reference limit for normals. >0.03 ng/mL: Elevated cardiac troponin T level indicative of myocardial damage. Diagnosis of acute, evolving or recent MS requires a typical rise and gradual fall of cTnT with at least ONE of the following: a) Ischemic symptoms b) Development of pathologic Q waves on the ECG c) ECG changes indicative of eschemia (S-T segment elevation/depression) d) Coronary artery intervention Serial bloods should be obtained for testing on admission, at 6 to 9 hrs and again at 12 to 24 hrs if earlier samples are negative and the clinical index of suspicion is high. Reference: [Myocardial infarction redefined a consensus document of the Joint Society of Cardiology/[place] College of [employer] Committee for the redefinition of myocardial infarction. Journal of the [place] College [employer] 2000; 36: 959-969] Creatine Kinase 1576(H) 0 - 160 unit/L [email or web address] Blood specimen (specimen) 04/20/2011 10:00 AM EST 04/20/2011 10:34 AM EST Lexi Read MD CHEMISTRY ORDERABLES Performing Organization Address [facility] de Phone Number JOHN DE LEON * Blood culture (04/20/2011 10:00 AM EST) Blood Culture ? Patient Name: ROXANN BAXTER ? Ordered By: LEXI READ ? MR#: [id number] ?LOC: ??1EST ? /Sex: ??1955 (55 years), ? Female ? PROCEDURE: Blood Culture ?SOURCE: Blood ? COLLECTED: 04/20/2011 10:00 ? BODY SITE: Arterial Line ? STARTED: 04/20/2011 11:21 ? FINAL REPORT ? Final Report ? Verified:2011 15:06 ? No growth at 5 days. ? PRELIMINARY REPORT ? Preliminary Report ? Verified:2011 15:07 ? No growth at 4 days. ? JOHN SRIDHARCONNOR Blood specimen (specimen) ARTERIAL LINE / Unknown 04/20/2011 10:00 AM EST 04/20/2011 11:20 AM EST Lexi Read MD MICROBIOLOGY - BLOOD ORDERABLES JOHN DE LEON * Vancomycin, trough (04/20/2011 10:00 AM EST) [facility] Vancomycin, Trough 20.0 mg/L Aminta EVANSIUM Comment: Therapeutic range for complicated infections such as bacteremia, endocarditis, osteomyelitis, meningitis, and hospital-acquired pneumonia caused by S. aureus: 15-20 mg/L Therapeutic range for other indications: 10-15 mg/L Toxic: >25mg/L Reference: Vancomycin Therapeutic Monitoring: Review and Recommendations from the ASHP, IDSA and SIDP Task Force. ??Am J Health-Syst Pharm. 2009; 66:82-98 Blood specimen (specimen) 04/20/2011 10:00 AM EST 04/20/2011 10:18 AM EST Lexi Read MD CHEMISTRY ORDERABLES Performing Organization Address [facility] Co de Phone Number JOHN DE LEON * Urine culture Indwelling Catheter Urine (04/20/2011 9:25 AM EST) Urine Culture ? Patient Name: ROXANN BAXTER ? Ordered By: LEXI READ ? MR#: [id number] ?LOC: ??ICUS ? /Sex: ?? 6 (55 years), ? Female ? PROCEDURE: Urine Culture ?SOURCE: [facility] ? COLLECTED: 04/20/2011 09:25 ? STARTED: 04/20/2011 09:41 ? FINAL REPORT ? Final Report ? Verified: 08:59 ? No growth (Less than 1,000 cfu/ml). ? ____ [facility] Urine specimen obtained via indwelling urinary catheter (specimen) 04/20/2011 9:25 AM EST 04/20/2011 9:41 AM EST Lexi Read MD MICROBIOLOGY - GENER AL ORDERABLES Performing Organization Address [facility] Co de Phone Number JOHN DE LEON * Rapid Respiratory Virus Antigen Panel Tracheal Aspirate (04/20/2011 9:24 AM EST) Pathologist [facility] Respiratory Virus Rapid ? Patient Name: ROXANN BAXTER ? Ordered By: LEXI READ ? MR#: [id number] ?LOC: ??ICUS ? /Sex: ??1955 (55 years), ? Female ? PROCEDURE: Respiratory Virus Rapid ?SOURCE: Trach Asp ? COLLECTED: 04/20/2011 09:24 ? STARTED: 04/20/2011 11:46 ? STAINS / PREPARATIONS ? Rapid Virus Report ? Verified:2011 14:04 ? Insufficient cell numbers present for definitive result. ? Submission of another specimen is suggested. ? CERNER MILLENNIUM Specimen from trachea obtained by aspiration (specimen) 04/20/2011 9:24 AM EST 04/20/2011 11:46 AM EST Lexi Read MD MICROBIOLOGY - GENER AL ORDERABLES JOHN DE LEON * (ABNORMAL) Urinalysis with microscopic (04/20/2011 9:24 AM EST) Pathologist [facility] Glucose, Urine Dipstick 300(A) Negative mg/dL CERNER MILLENNIUM Protein, Urine Dipstick 30(A) Neg mg/dL CERNER MILLENNIUM Bilirubin, Urine Dipstick Negative Negative mg/dL CERNER MILLENNIUM Urobilinogen, Urine Dipstick Normal mg/dL CERNER MILLENNIUM pH, Urn (dipstick) 6.0 5.0 - 8.0 CERNER MILLENNIUM Blood, Urine Dipstick Moderate mg/dL CERNER MILLENNIUM Ketone, Urine Dipstick Negative mg/dL CERNER MILLENNIUM Nitrite, Urine Dipstick Negative CERNER MILLENNIUM Leukocytes, Urine Dipstick Negative mcL CERNER MILLENNIUM Appearance, Urine Dipstick Cloudy(A) Clear CERNER MILLENNIUM Specific [place]man Urine Automated 1.017 1.002 - 1.030 CERNER MILLENNIUM Color, Urine Dipstick Yellow Yellow CERNER MILLENNIUM RBC, Urine 7(H) 0 - 4 /HPF CERNER MILLENNIUM WBC, Urine 32(H) 0 - 5 /HPF CERNER MILLENNIUM Bacteria, Urine Few /HPF CERNER MILLENNIUM Granular Casts, Urine 27(H) <=0 /LPF CERNER MILLENNIUM Amorphous Crystals, Urine Moderate /HPF CERNER MILLENNIUM Urine specimen (specimen) 04/20/2011 9:24 AM EST 04/20/2011 9:35 AM EST Lexi Read MD URINE ORDERABLES CERNER MILLENNIUM * Lower Respiratory Culture Tracheal Aspirate (04/20/2011 9:24 AM EST) Lower Respiratory Culture ? Patient Name: ROXANN BAXTER ? Ordered By: LEXI READ ? MR#: [id number] ?LOC: ??ICUS ? /Sex: ??1955 (55 years), ? Female ? PROCEDURE: Lower Respiratory Culture ?SOURCE: Trach Asp ? COLLECTED: 04/20/2011 09:24 ? STARTED: 04/20/2011 11:46 ? STAINS / PREPARATIONS ? Gram Stain Report ? Verified:04/20/2011 14:38 ? Many White Blood Cells seen ? Few squamous epithelial cells seen ? Few Gram Positive Cocci seen ? Rare Gram Negative Rods seen ? FINAL REPORT ? Final Report ? Verified:04/22/2011 11:28 ? Few Staphylococcus aureus Susceptibilities previously reported ? Rare mixed bacterial morphotypes suggestive of normal upper respiratory ? vania ? PRELIMINARY REPORT ? Preliminary Report ? Verified:04/21/2011 11:50 ? Few Staphylococcus aureus ? Rare mixed bacterial morphotypes suggestive of normal upper respiratory ? vania ? CERNER MILLENNIUM Specimen from trachea obtained by aspiration (specimen) 04/20/2011 9:24 AM EST 04/20/2011 11:46 AM EST Lexi Read MD MICROBIOLOGY - GENER AL ORDERABLES JOHN DE LEON * (ABNORMAL) BLOOD GAS 2 VENOUS (04/20/2011 9:18 AM EST) pH, Venous 7.28(Critic al) 7.32 - 7.42 CERNER MILLENNIUM 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 PCO2, Venous 40(L) 41 - 51 mmHg CERNER MILLENNIUM PO2, Venous 32 25 - 40 mmHg CERNER MILLENNIUM Bicarbonate, Venous 18.3 mmol/L CERNER MILLENNIUM Base Excess, Venous -8.5 mmol/L CERNER MILLENNIUM Hgb Blood Gas 8.3(L) 11.2 - 15.7 gm/dL CERNER MILLENNIUM Comment: Total Hemoglobin (in gm/dL) ?Based on [facility] Hematology ranges: ?Age ?Reference Range Less than 3 days ?14.5 to 22.5 3 days to 2 weeks ? 12.5 to 20.5 2 weeks to 1 month ?10.0 to 18.0 1 to 6 months ?9.4 to 14.0 6 months to 2 years ? 10.5 to 13.5 2 to 6 years ?11.5 to 13.5 6 to 12 years ? 11.5 to 15.5 12 to 18 years (female) 12.0 to 16.0 ? (male) ?? 13.0 to 16.0 > 18 years ? (female) 11.2 to 15.7 ? (male) ?? 13.7 to 17.5 Oxyhemoglobin, Venous 54.6 % CERNER MILLENNIUM Carboxyhemoglo bin, Venous 1.4 % CERNER MILLENNIUM Comment: Nonsmokers: 0.5-1.5% COHB Smokers: Variable, but usually less than 10% Toxic: 20-30% COHB Lethal: Greater than 60% COHB Methemoglobin, Venous 1.0 <=1.5 % CERNER MILLENNIUM Na Whole Blood 140 135 - 145 mmol/L CERNER MILLENNIUM K Whole Blood 3.5 3.5 - 5.0 mmol/L CERNER MILLENNIUM Comment: Please note: Patients with WBC >100,000 may have falsely elevated Potassium levels. Contact the Clinical Chemistry Laboratory if there are any questions. ICa Whole Blood 1.04(L) 1.15 - 1.33 mmol/L CERNER MILLENNIUM Comment: Reference Ranges: ?? < 19 yrs: 1.22 - 1.37 mmol/L ? Adults: 1.15 - 1.33 mmol/L Note: ??Total bilirubin higher than 20 mg/dL may lead to falsely low ionized calcium. CL Whole Blood 113(H) 98 - 107 mmol/L CERNER MILLENNIUM Gluc Whole Bld 278(H) 60 - 199 mg/dL CERNER MILLENNIUM Comment:Diabetes: >=200 mg/d L plus symptoms Fraction of Inspired Oxygen, Venous 40 % CERNER MILLENNIUM Blood Gas Source Central Venous CERNER MILLENNIUM Blood specimen (specimen) 04/20/2011 9:18 AM EST 04/20/2011 9:18 AM EST Lexi Read MD POINT OF CARE TEST O RDERABLES Performing Organization Address City/[facility]/ZIP Co de Phone Number [facility] MILLENNIUM * (ABNORMAL) POCT GLUCOSE LAB USE ONLY (04/20/2011 9:10 AM EST) Glucose, POC 205(H) 60 - 199 mg/dL CERNER MILLENNIUM Comment: Supplemental ranges: <110 mg/dL before meals <200 mg/dL all other times of the day Blood specimen (specimen) 04/20/2011 9:10 AM EST 04/20/2011 9:10 AM EST Lexi Read MD POINT OF CARE TEST O RDERABLES Performing Organization Address [facility] Co de Phone Number [facility] MILLENNIUM * (ABNORMAL) Hepatic Function Panel (04/20/2011 9:01 AM EST) Protein, Total 4.8(L) 6.4 - 8.3 gm/dL CERNER MILLENNIUM Albumin 2.7(L) 3.2 - 5.2 gm/dL CERNER MILLENNIUM Aspartate Aminotransferase 54(H) 0 - 30 unit/L CERNER MILLENNIUM Alanine Aminotransferase 24 0 - 30 unit/L CERNER MILLENNIUM Alkaline Phosphatase 47 40 - 104 unit/L CERNER MILLENNIUM Bilirubin, Total 0.3 0.2 - 1.3 mg/dL CERNER MILLENNIUM Bilirubin, Direct 0.1 0.0 - 0.3 mg/dL CERNER MILLENNIUM Blood specimen (specimen) 04/20/2011 9:01 AM EST 04/20/2011 9:20 AM EST Lexi Read MD CHEMISTRY ORDERABLES Performing Organization Address City/State/ZIP Co ut Phone Number JOHN DE LEON * Lower Respiratory Culture Tracheal Aspirate (04/20/2011 8:53 AM EST) Lower Respiratory Culture ? Patient Name: ROXANN BAXTER ? Ordered By: LEXI READ ? MR#: [id number] ?LOC: ??ICUS ? /Sex: ??1955 (55 years), ? Female ? PROCEDURE: Lower Respiratory Culture ?SOURCE: Trach Asp ? COLLECTED: 04/20/2011 08:53 ? STARTED: 04/20/2011 09:17 ? STAINS / PREPARATIONS ? Gram Stain Report ? Verified:04/20/19 12 11:56 ? Many White Blood Cells seen ? Few squamous epithelial cells seen ? Moderate Gram Positive Cocci ? FINAL REPORT ? Final Report ? Verified:04/22/19 12 11:28 ? Few Staphylococcus aureus ? Rare mixed bacterial morphotypes suggestive of normal upper respiratory ? vania ? PRELIMINARY REPORT ? Preliminary Report ? Verified:04/21/19 12 11:45 ? Few Staphylococcus aureus ? Rare mixed bacterial morphotypes suggestive of normal upper respiratory ? vania ? Patient: ROXANN BAXTER ? MR#: [id number] ? SUSCEPTIBILITY RESULTS ? Staphylococcus aureus ? ____ ? SHIRA Interp ? Cefazolin ? S ? Ceftriaxone ? S ? Ciprofloxacin ? S ? Clindamycin ? S ? Erythromycin ?S ? Gentamicin ?S ? Meropenem ? S ? Moxifloxacin ?S ? Oxacillin ? S ? Penicillin(1) ? S ? Trimethoprim/Sulf a ?S ? Tetracycline ?S ? Vancomycin ?S ? FOOTNOTES ? (1) ? Penicillin susceptible Staphylococci are also susceptible to other ? Penicillins, Cephems, and Carbapenems. ? CERNER MILLENNIUM Specimen from trachea obtained by aspiration (specimen) 04/20/2011 8:53 AM EST 04/20/2011 9:17 AM EST Lexi Read MD MICROBIOLOGY - GENER AL ORDERABLES CERNER MILLENNIUM * (ABNORMAL) BLOOD GAS 2 VENOUS (04/20/2011 7:55 AM EST) pH, Venous 7.33 CERNER MILLENNIUM PCO2, Venous 36(L) mmHg CERNER MILLENNIUM PO2, Venous 129(H) mmHg CERNER MILLENNIUM Bicarbonate, Venous 18.7 mmol/L CERNER MILLENNIUM Base Excess, Venous -7.2 mmol/L CERNER MILLENNIUM Hgb Blood Gas 9.0(L) gm/dL CERNER MILLENNIUM Comment: Total Hemoglobin (in gm/dL) ?Based on [facility] Hematology ranges: ?Age ?Reference Range Less than 3 days ?14.5 to 22.5 3 days to 2 weeks ? 12.5 to 20.5 2 weeks to 1 month ?10.0 to 18.0 1 to 6 months ?9.4 to 14.0 6 months to 2 years ? 10.5 to 13.5 2 to 6 years ?11.5 to 13.5 6 to 12 years ? 11.5 to 15.5 12 to 18 years (female) 12.0 to 16.0 ? (male) ?? 13.0 to 16.0 > 18 years ? (female) 11.2 to 15.7 ? (male) ?? 13.7 to 17.5 Oxyhemoglobin, Venous 97.1 % CERNER MILLENNIUM Carboxyhemoglo bin, Venous 0.7 % CERNER MILLENNIUM Comment: Nonsmokers: 0.5-1.5% COHB Smokers: Variable, but usually less than 10% Toxic: 20-30% COHB Lethal: Greater than 60% COHB Methemoglobin, Venous 0.4 % CERNER MILLENNIUM Na Whole Blood 139 mmol/L CERNE R MILLENNIUM K Whole Blood 3.6 mmol/L CERNER MILLENNIUM Comment: Please note: Patients with WBC >100,000 may have falsely elevated Potassium levels. Contact the Clinical Chemistry Laboratory if there are any questions. ICa Whole Blood 1.05(L) mmol/L CERNER MILLENNIUM Comment: Reference Ranges: ?? < 19 yrs: 1.22 - 1.37 mmol/L ? Adults: 1.15 - 1.33 mmol/L Note: ??Total bilirubin higher than 20 mg/dL may lead to falsely low ionized calcium. CL Whole Blood 113(H) mmol/L CERNE R MILLENNIUM Gluc Whole Bld 274(H) mg/dL CERNE R MILLENNIUM Comment:Diabetes: >=200 mg/d L plus symptoms Fraction of Inspired Oxygen, Venous 40 % CERNER MILLENNIUM Blood Gas Source Central Venous CERNER MILLENNIUM Blood specimen (specimen) 04/20/2011 7:55 AM EST 04/20/2011 7:55 AM EST Lexi Read MD POINT OF CARE TEST O JESSICA Performing Organization Address [facility] de Phone Number [facility] * (ABNORMAL) POCT GLUCOSE LAB USE ONLY (04/20/2011 7:52 AM EST) Glucose, POC 266(H) 60 - 199 mg/dL [facility] Comment: Supplemental ranges: <110 mg/dL before meals <200 mg/dL all other times of the day Blood specimen (specimen) 04/20/2011 7:52 AM EST 04/20/2011 7:52 AM EST Lexi Read MD POINT OF CARE TEST O RDKATHY Performing Organization Address [facility] de Phone Number [facility] * (ABNORMAL) POCT GLUCOSE LAB USE ONLY (04/20/2011 6:53 AM EST) Glucose, POC 300(H) 60 - 199 mg/dL CERNER MILLENNIUM Comment: Supplemental ranges: <110 mg/dL before meals <200 mg/dL all other times of the day Blood specimen (specimen) 04/20/2011 6:53 AM EST 04/20/2011 6:53 AM EST Lexi Read MD POINT OF CARE TEST O RDERABLES CERNER MILLENNIUM * (ABNORMAL) BLOOD GAS 2 ARTERIAL (04/20/2011 5:57 AM EST) pH, Arterial 7.32(L) CERNER MILLENNIUM PCO2, Arterial 33(L) mmHg CERNE R MILLENNIUM PO2, Arterial 135(H) mmHg CERNER MILLENNIUM Bicarbonate, Arterial 16.6(L) mmol/L CERNER MILLENNIUM Base Excess, Arterial -9.5(L) mmol/L CERNER MILLENNIUM Hgb Blood Gas 8.9(L) gm/dL CERNER MILLENNIUM Comment: Total Hemoglobin (in gm/dL) ?Based on [facility] Hematology ranges: ?Age ?Reference Range Less than 3 days ?14.5 to 22.5 3 days to 2 weeks ? 12.5 to 20.5 2 weeks to 1 month ?10.0 to 18.0 1 to 6 months ?9.4 to 14.0 6 months to 2 years ? 10.5 to 13.5 2 to 6 years ?11.5 to 13.5 6 to 12 years ? 11.5 to 15.5 12 to 18 years (female) 12.0 to 16.0 ? (male) ?? 13.0 to 16.0 > 18 years ? (female) 11.2 to 15.7 ? (male) ?? 13.7 to 17.5 Oxyhemoglobin, Arterial 97.2(H) % CERNER MILLENNIUM Carboxyhemoglob in, Arterial 0.9 % CERNER MILLENNIUM Comment: Nonsmokers: 0.5-1.5% COHB Smokers: Variable, but usually less than 10% Toxic: 20-30% COHB Lethal: Greater than 60% COHB Methemoglobin, Arterial 0.5 % CERNER MILLENNIUM Na Whole Blood 139 mmol/L CERNE R MILLENNIUM K Whole Blood 3.7 mmol/L CERNER MILLENNIUM Comment: Please note: Patients with WBC >100,000 may have falsely elevated Potassium levels. Contact the Clinical Chemistry Laboratory if there are any questions. ICa Whole Blood 1.06(L) mmol/L CERN ER MILLENNIUM Comment: Reference Ranges: ?? < 19 yrs: 1.22 - 1.37 mmol/L ? Adults: 1.15 - 1.33 mmol/L Note: ??Total bilirubin higher than 20 mg/dL may lead to falsely low ionized calcium. CL Whole Blood 112(H) mmol/L CERNE R MILLENNIUM Gluc Whole Bld 295(H) mg/dL CERNE R MILLENNIUM Comment:Diabetes: >=200 mg/d L plus symptoms. FIO2 Art 50 % CERNER MILLENNIUM PF Ratio Art 270 CERNER MILLENNIUM Blood specimen (specimen) 04/20/2011 5:57 AM EST 04/20/2011 5:57 AM EST Lexi Read MD POINT OF CARE TEST O JESSICA Performing Organization Address City/[facility] Co de Phone Number CERNER MILLENNIUM * (ABNORMAL) POCT GLUCOSE LAB USE ONLY (04/20/2011 5:56 AM EST) Glucose, POC 304(H) 60 - 199 mg/dL CERNER MILLENNIUM Comment: Supplemental ranges: <110 mg/dL before meals <200 mg/dL all other times of the day Blood specimen (specimen) 04/20/2011 5:56 AM EST 04/20/2011 5:56 AM EST Lexi Read MD POINT OF CARE TEST O RDERABLES [facility] * (ABNORMAL) DIFFERENTIAL, AUTOMATED (04/20/2011 5:55 AM EST) Neutrophil % 78.7(H) 34.0 - 71.0 % CERNER MILLENNIUM Neutrophil Absolute 21.14(H) 1.50 - 6.30 x10(3)/mc L CERNER MILLENNIUM Lymph % 12.2(L) 19.0 - 53.0 % CERNER MILLENNIUM Lymphocytes Abs 3.3 1.0 - 3.6 x10(3)/mc L CERNER MILLENNIUM Monocyte % 8.4 4.0 - 13.0 % CERNER MILLENNIUM Monocyte Abs 2.3(H) 0.2 - 1.0 x10(3)/mc L CERNER MILLENNIUM Eos % 0.0 0.0 - 7.0 % CERNER MILLENNIUM Eosinophils Abs 0.0 0.0 - 0.5 x10(3)/mc L CERNER MILLENNIUM Basophil % 0.1 0.0 - 2.0 % CERNER MILLENNIUM Baso Absolute 0.0 0.0 - 0.2 x10(3)/mc L CERNER MILLENNIUM Immature Gran % 0.60 0.00 - 0.66 % CERNER MILLENNIUM Comment: Immature granulocytes(IG's)percentage and absolute count will include metamyelocytes, myelocytes, and promyelocytes. Blood smears from CBCs yielding IG's will be scanned manually for concordance. If this scan disagrees with the automated IG or if promyelocytes are noted, a manual differential will be performed. Immature Gran Absolute 0.17(H) 0.00 - 0.05 x10(3)/mc L CERNER MILLENNIUM Blood specimen (specimen) 04/20/2011 5:55 AM EST 04/20/2011 6:04 AM EST Lexi Read MD HEMATOLOGY ORDERABLE S [facility] * Lactic acid, plasma (04/20/2011 5:55 AM EST) Lactic Acid 1.6 0.5 - 2.2 mmol/L CERNER MILLENNIUM Blood specimen (specimen) 04/20/2011 5:55 AM EST 04/20/2011 6:04 AM EST Lexi Read MD CHEMISTRY ORDERABLES Performing Organization Address [facility]/ZIP Co de Phone Number CERNER MILLENNIUM * (ABNORMAL) Phosphorus (04/20/2011 5:55 AM EST) Phosphorus 1.5(L) 2.5 - 4.5 mg/dL CERNER MILLENNIUM Blood specimen (specimen) 04/20/2011 5:55 AM EST 04/20/2011 6:04 AM EST Lexi Read MD CHEMISTRY ORDERABLES Performing Organization Address [facility] de Phone Number [facility] MILLENNIUM * (ABNORMAL) Magnesium (04/20/2011 5:55 AM EST) Magnesium 0.60(L) 0.69 - 1.07 mmol/L CERNER MILLENNIUM Blood specimen (specimen) 04/20/2011 5:55 AM EST 04/20/2011 6:04 AM EST Lexi Read MD CHEMISTRY ORDERABLES Performing Organization Address [facility] de Phone Number [facility] MILLENNIUM * (ABNORMAL) Basic Metabolic Panel (non-fasting) (04/20/2011 5:55 AM EST) Glucose 342(H) 60 - 199 mg/dL CERNER MILLENNIUM Comment:Diabetes: >=200 mg/d L plus symptoms Blood Urea Nitrogen 48(H) 8 - 18 mg/dL CERNER MILLENNIUM Creatinine 1.86(H) 0.70 - 1.20 mg/dL CERNER MILLENNIUM Sodium 142 135 - 145 mmol/L CERNER MILLENNIUM Comment:rechecked - llu Potassium 3.6 3.5 - 5.0 mmol/L CERNER MILLENNIUM Comment: rechecked - llu Please note: ??Patients with WBC >100,000 may have falsely elevated Potassium levels. ??For accurate Potassium quantification in these patients send serum separator tube (gold top) for subsequent determinations. ??Contact the Clinical Chemistry Laboratory if there are any questions. Chloride 112(H) 98 - 107 mmol/L CERNER MILLENNIUM Comment:rechecked - llu Carbon Dioxide 17(L) 22 - 31 mmol/L CERNER MILLENNIUM Comment:rechecked - llu Anion Gap 13 5 - 15 mmol/L CERNER MILLENNIUM Calcium 6.9(Criti sang) 8.5 - 10.5 mg/dL CERNER MILLENNIUM Comment:Called by: leanne, Read back by: Roseanne Cardenas, Date/Time:04/20/11 06:54. Est Glomerular Filtration Rate 28(L) >=60 CERNER MILLENNIUM Comment: The National Kidney [...] disease. References: http://nkdep.nih.gov/resources/NKDEP_Suggestn4Labs_0606_508.pdf http://www.kidney.org/professionals/kls/pdf/faq_gfr.pdf Blood specimen (specimen) 04/20/2011 5:55 AM EST 04/20/2011 6:04 AM EST Lexi Read MD CHEMISTRY ORDERABLES Performing Organization Address [facility] Co de Phone Number [facility]UMMIT [facility] CENTERIUM * (ABNORMAL) CBC (with Diff) (04/20/2011 5:55 AM EST) White Blood Cell 26.9(H) 4.0 - 10.0 x10(3)/mc L CERNER MILLENNIUM Red Blood Cell 3.47(L) 3.93 - 5.22 x10(6)/mc L CERNER MILLENNIUM Hemoglobin 8.4(L) 11.2 - 15.7 gm/dL CERNER MILLENNIUM Hematocrit 25.8(L) 34.0 - 45.0 % CERNER MILLENNIUM Mean Cell Volume 74.4(L) 79.0 - 94.0 fL CERNER MILLENNIUM Mean Cell Hemoglobin 24.2(L) 26.6 - 32.2 pg CERNER MILLENNIUM Mean Cell Hemoglobin Concentration 32.6 32.0 - 36.5 gm/dL CERNER MILLENNIUM Platelet 338 145 - 370 x10(3)/mc L CERNER MILLENNIUM RDW Standard Deviation 45.8 35.0 - 46.0 fL CERNER MILLENNIUM RDW coefficient of variation 16.8(H) 10.9 - 14.4 % CERNER MILLENNIUM Mean Platelet Volume 8.6(L) 9.0 - 12.0 fL CERNER MILLENNIUM Blood specimen (specimen) 04/20/2011 5:55 AM EST 04/20/2011 6:04 AM EST Lexi Read MD HEMATOLOGY ORDERABLE S [facility] * (ABNORMAL) Beta Hydroxybutyrate (04/20/2011 5:55 AM EST) Beta-hydroxybu turate 0.57(H) 0.00 - 0.30 mmol/L CERNER MILLENNIUM Comment: Reference range: ??0.00-0.30 mmo1/L, based on an overnight fast. ??Children may be higher. Blood specimen (specimen) 04/20/2011 5:55 AM EST 04/20/2011 6:04 AM EST Lexi Read MD CHEMISTRY ORDERABLES Performing Organization Address [facility] Phone Number [facility] * (ABNORMAL) POCT GLUCOSE LAB USE ONLY (04/20/2011 5:02 AM EST) Glucose, POC 389(H) 60 - 199 mg/dL [facility] Comment: Supplemental ranges: <110 mg/dL before meals <200 mg/dL all other times of the day Blood specimen (specimen) 04/20/2011 5:02 AM EST 04/20/2011 5:02 AM EST Lexi Read MD POINT OF CARE TEST O RDERABLES Performing Organization Address [facility] Phone Number [facility] * (ABNORMAL) POCT GLUCOSE LAB USE ONLY (04/20/2011 4:00 AM EST) Glucose, POC 437(H) 60 - 199 mg/dL [facility] Comment: Supplemental ranges: <110 mg/dL before meals <200 mg/dL all other times of the day Blood specimen (specimen) 04/20/2011 4:00 AM EST 04/20/2011 4:00 AM EST Lexi Read MD POINT OF CARE TEST O RDERABLES Performing Organization Address [facility] Phone Number [facility] * (ABNORMAL) POCT GLUCOSE LAB USE ONLY (04/20/2011 3:03 AM EST) Glucose, POC 479(H) 60 - 199 mg/dL [facility] Comment: Supplemental ranges: <110 mg/dL before meals <200 mg/dL all other times of the day Blood specimen (specimen) 04/20/2011 3:03 AM EST 04/20/2011 3:03 AM EST Lexi Read MD POINT OF CARE TEST O RDERABLES Performing Organization Address [facility]/ZIP Co de Phone Number [facility]ENTERMAGDALENA WALLERENNIUM * (ABNORMAL) POCT GLUCOSE LAB USE ONLY (04/20/2011 1:58 AM EST) Glucose, POC 487(H) 60 - 199 mg/dL CERNER MILLENNIUM Comment: Supplemental ranges: <110 mg/dL before meals <200 mg/dL all other times of the day Blood specimen (specimen) 04/20/2011 1:58 AM EST 04/20/2011 1:58 AM EST Lexi Read MD POINT OF CARE TEST O RDERARADHA Performing Organization Address [facility] de Phone Number [facility] SR[facility]HARSUM[facility]ENTERIUM * (ABNORMAL) POCT GLUCOSE LAB USE ONLY (04/20/2011 1:05 AM EST) Glucose, POC 587(Critic al) 60 - 199 mg/dL [facility] MILLENNIUM Comment: Supplemental ranges: <110 mg/dL before meals <200 mg/dL all other times of the day Blood specimen (specimen) 04/20/2011 1:05 AM EST 04/20/2011 1:05 AM EST Lexi Read MD POINT OF CARE TEST O LUPISERARADHA Performing Organization Address [facility] Phone Number [facility] HALEY * (ABNORMAL) BLOOD GAS 2 ARTERIAL (04/20/2011 12:11 AM EST) pH, Arterial 7.21(Criti sang) 7.35 - 7.45 CERNER MILLENNIUM 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 JHB PCO2, Arterial 29(L) 35 - 45 mmHg CERNER MILLENNIUM PO2, Arterial 145(H) 85 - 104 mmHg CERNER MILLENNIUM Bicarbonate, Arterial 11.2(L) 20.0 - 26.0 mmol/L CERNER MILLENNIUM Base Excess, Arterial -16.7(L) -3.0 - 3.0 mmol/L CERNER MILLENNIUM Hgb Blood Gas 9.5(L) 11.2 - 15.7 gm/dL CERNER MILLENNIUM Comment: Total Hemoglobin (in gm/dL) ?Based on [facility] Hematology ranges: ?Age ?Reference Range Less than 3 days ?14.5 to 22.5 3 days to 2 weeks ? 12.5 to 20.5 2 weeks to 1 month ?10.0 to 18.0 1 to 6 months ?9.4 to 14.0 6 months to 2 years ? 10.5 to 13.5 2 to 6 years ?11.5 to 13.5 6 to 12 years ? 11.5 to 15.5 12 to 18 years (female) 12.0 to 16.0 ? (male) ?? 13.0 to 16.0 > 18 years ? (female) 11.2 to 15.7 ? (male) ?? 13.7 to 17.5 Oxyhemoglobin, Arterial 97.5(H) 94.0 - 97.0 % CERNER MILLENNIUM Carboxyhemoglob in, Arterial 0.5 % CERNER MILLENNIUM Comment: Nonsmokers: 0.5-1.5% COHB Smokers: Variable, but usually less than 10% Toxic: 20-30% COHB Lethal: Greater than 60% COHB Methemoglobin, Arterial 0.6 <=1.5 % CERNER MILLENNIUM Na Whole Blood 141 135 - 145 mmol/L CERNER MILLENNIUM K Whole Blood 4.6 3.5 - 5.0 mmol/L CERNER MILLENNIUM Comment: Please note: Patients with WBC >100,000 may have falsely elevated Potassium levels. Contact the Clinical Chemistry Laboratory if there are any questions. ICa Whole Blood 1.08(L) 1.15 - 1.33 mmol/L CERNER MILLENNIUM Comment: Reference Ranges: ?? < 19 yrs: 1.22 - 1.37 mmol/L ? Adults: 1.15 - 1.33 mmol/L Note: ??Total bilirubin higher than 20 mg/dL may lead to falsely low ionized calcium. CL Whole Blood 110(H) 98 - 107 mmol/L CERNER MILLENNIUM Gluc Whole Bld 554(Critic al) 60 - 199 mg/dL CERNER MILLENNIUM Comment: Noted by borematic machine operator. ?? JHB Diabetes: >=200 mg/dL plus symptoms. FIO2 Art 60 % CERNER MILLENNIUM PF Ratio Art 242 CERNER MILLENNIUM Blood specimen (specimen) 04/20/2011 12:11 AM EST 04/20/2011 4:46 AM EST Lexi Read MD POINT OF CARE TEST O RDERABLES CERNER MILLENNIUM * (ABNORMAL) DIFFERENTIAL, AUTOMATED (04/20/2011 12:02 AM EST) Neutrophil % 76.9(H) 34.0 - 71.0 % CERNER MILLENNIUM Neutrophil Absolute 22.17(H) 1.50 - 6.30 x10(3)/mc L CERNER MILLENNIUM Lymph % 17.6(L) 19.0 - 53.0 % CERNER MILLENNIUM Lymphocytes Abs 5.1(H) 1.0 - 3.6 x10(3)/mc L CERNER MILLENNIUM Monocyte % 4.6 4.0 - 13.0 % CERNER MILLENNIUM Monocyte Abs 1.3(H) 0.2 - 1.0 x10(3)/mc L CERNER MILLENNIUM Eos % 0.0 0.0 - 7.0 % CERNER MILLENNIUM Eosinophils Abs 0.0 0.0 - 0.5 x10(3)/mc L CERNER MILLENNIUM Basophil % 0.1 0.0 - 2.0 % CERNER MILLENNIUM Baso Absolute 0.0 0.0 - 0.2 x10(3)/mc L CERNER MILLENNIUM Immature Gran % 0.80(H) 0.00 - 0.66 % CERNER MILLENNIUM Comment: Immature granulocytes(IG's)percentage and absolute count will include metamyelocytes, myelocytes, and promyelocytes. Blood smears from CBCs yielding IG's will be scanned manually for concordance. If this scan disagrees with the automated IG or if promyelocytes are noted, a manual differential will be performed. Immature Gran Absolute 0.22(H) 0.00 - 0.05 x10(3)/mc L CERNER MILLENNIUM Blood specimen (specimen) 04/20/2011 12:02 AM EST 04/20/2011 12:10 AM EST Lexi Read MD HEMATOLOGY ORDERABLE S Performing Organization Address [facility] Phone Number [facility] NATHANIUM * Lactic acid, plasma (04/20/2011 12:02 AM EST) Lactic Acid 1.1 0.5 - 2.2 mmol/L [facility] SRIDHARENNIUM Blood specimen (specimen) 04/20/2011 12:02 AM EST 04/20/2011 12:10 AM EST Lexi Read MD CHEMISTRY ORDERABLES Performing Organization Address [facility] Phone Number [facility] SRIDHARSUMMIT [facility] CENTERIUM * Phosphorus (04/20/2011 12:02 AM EST) Phosphorus 3.3 2.5 - 4.5 mg/dL [facility] SRIDHARENNIUM Blood specimen (specimen) 04/20/2011 12:02 AM EST 04/20/2011 12:10 AM EST Lexi Read MD CHEMISTRY ORDERABLES Performing Organization Address [facility] Phone Number JOHN EVANSIUM * Magnesium (04/20/2011 12:02 AM EST) Magnesium 0.73 0.69 - 1.07 mmol/L [facility] MILLENNIUM Blood specimen (specimen) 04/20/2011 12:02 AM EST 04/20/2011 12:10 AM EST Lexi Read MD CHEMISTRY ORDERABLES Performing Organization Address [facility] Phone Number [facility] SRIDHARSUM[facility] CENTERIUM * (ABNORMAL) Basic Metabolic Panel (non-fasting) (04/20/2011 12:02 AM EST) Glucose 621(Criti sang) 60 - 199 mg/dL CERNER MILLENNIUM Comment: Called by: leanne, Read back by: Roseanne Cardenas, Date/Time:04/20/11 00:52. Diabetes: >=200 mg/dL plus symptoms Blood Urea Nitrogen 59(H) 8 - 18 mg/dL CERNER MILLENNIUM Creatinine 2.36(H) 0.70 - 1.20 mg/dL CERNER MILLENNIUM Sodium 142 135 - 145 mmol/L CERNER MILLENNIUM Comment:rechecked - llu Potassium 4.6 3.5 - 5.0 mmol/L CERNER MILLENNIUM Comment: result rechecked-llu Please note: ??Patients with WBC >100,000 may have falsely elevated Potassium levels. ??For accurate Potassium quantification in these patients send serum separator tube (gold top) for subsequent determinations. ??Contact the Clinical Chemistry Laboratory if there are any questions. Chloride 110(H) 98 - 107 mmol/L CERNER MILLENNIUM Comment:result rechecked-llu Carbon Dioxide 12(L) 22 - 31 mmol/L CERNER MILLENNIUM Anion Gap 20(H) 5 - 15 mmol/L CERNER MILLENNIUM Calcium 6.9(Criti snag) 8.5 - 10.5 mg/dL CERNER MILLENNIUM Comment:Called by: leanne, Read back by: Roseanne Cardenas, Date/Time:04/20/11 00:52. Est Glomerular Filtration Rate 21(L) >=60 CERNER MILLENNIUM Comment: The National Kid[employer] [...] disease. References: http://nkdep.nih.gov/resources/NKDEP_Suggestn4Labs_0606_508.pdf http://www.kidney.org/professionals/kls/pdf/faq_gfr.pdf Blood specimen (specimen) 04/20/2011 12:02 AM EST 04/20/2011 12:10 AM EST Lexi Read MD CHEMISTRY ORDERABLES CERNER MILLENNIUM * (ABNORMAL) CBC (with Diff) (04/20/2011 12:02 AM EST) White Blood Cell 28.8(H) 4.0 - 10.0 x10(3)/mc L CERNER MILLENNIUM Red Blood Cell 3.58(L) 3.93 - 5.22 x10(6)/mc L CERNER MILLENNIUM Hemoglobin 8.9(L) 11.2 - 15.7 gm/dL CERNER MILLENNIUM Hematocrit 27.5(L) 34.0 - 45.0 % CERNER MILLENNIUM Mean Cell Volume 76.8(L) 79.0 - 94.0 fL CERNER MILLENNIUM Mean Cell Hemoglobin 24.9(L) 26.6 - 32.2 pg CERNER MILLENNIUM Mean Cell Hemoglobin Concentration 32.4 32.0 - 36.5 gm/dL CERNER MILLENNIUM Platelet 395(H) 145 - 370 x10(3)/mc L CERNER MILLENNIUM RDW Standard Deviation 47.5(H) 35.0 - 46.0 fL CERNER MILLENNIUM RDW coefficient of variation 16.9(H) 10.9 - 14.4 % CERNER MILLENNIUM Mean Platelet Volume 8.9(L) 9.0 - 12.0 fL CERNER MILLENNIUM Blood specimen (specimen) 04/20/2011 12:02 AM EST 04/20/2011 12:10 AM EST Lexi Read MD HEMATOLOGY ORDERABLE S Performing Organization Address [facility] de Phone Number [facility] * (ABNORMAL) Beta Hydroxybutyrate (04/20/2011 12:02 AM EST) Beta-hydroxybu turate 5.85(H) 0.00 - 0.30 mmol/L CERNER MILLENNIUM Comment: Reference range: ??0.00-0.30 mmo1/L, based on an overnight fast. ??Children may be higher. Blood specimen (specimen) 04/20/2011 12:02 AM EST 04/20/2011 12:10 AM EST Lexi Read MD CHEMISTRY ORDERABLES Performing Organization Address [facility] de Phone Number JOHN EVANSIUM * (ABNORMAL) Glucose, random (04/19/2011 10:05 PM EST) Glucose 693(Critic al) 60 - 199 mg/dL [facility] MILLENNIUM Comment: Called by: ryan, Read back by: Ning Gurrola, Date/Time:04/19/11 23:18. Diabetes: >=200 mg/dL plus symptoms Blood specimen (specimen) 04/19/2011 10:05 PM EST 04/19/2011 10:25 PM EST Lexi Read MD CHEMISTRY ORDERABLES Performing Organization Address [facility] de Phone Number JOHN DE LEON * (ABNORMAL) BLOOD GAS 2 VENOUS (04/19/2011 8:53 PM EST) pH, Venous 7.00(Criti sang) CERNER MILLENNIUM PCO2, Venous 37(L) mmHg CERNER MILLENNIUM PO2, Venous 68(H) mmHg CERNER MILLENNIUM Bicarbonate, Venous 8.9 mmol/L CERNER MILLENNIUM Base Excess, Venous -22.3 mmol/L CERNER MILLENNIUM Hgb Blood Gas 9.3(L) gm/dL CERNER MILLENNIUM Comment: Total Hemoglobin (in gm/dL) ?Based on [facility] Hematology ranges: ?Age ?Reference Range Less than 3 days ?14.5 to 22.5 3 days to 2 weeks ? 12.5 to 20.5 2 weeks to 1 month ?10.0 to 18.0 1 to 6 months ?9.4 to 14.0 6 months to 2 years ? 10.5 to 13.5 2 to 6 years ?11.5 to 13.5 6 to 12 years ? 11.5 to 15.5 12 to 18 years (female) 12.0 to 16.0 ? (male) ?? 13.0 to 16.0 > 18 years ? (female) 11.2 to 15.7 ? (male) ?? 13.7 to 17.5 Oxyhemoglobin, Venous 83.8 % CERNER MILLENNIUM Carboxyhemoglob in, Venous 1.1 % CERNER MILLENNIUM Comment: Nonsmokers: 0.5-1.5% COHB Smokers: Variable, but usually less than 10% Toxic: 20-30% COHB Lethal: Greater than 60% COHB Methemoglobin, Venous 0.7 % CERNER MILLENNIUM Na Whole Blood 139 mmol/L CERNE R MILLENNIUM K Whole Blood 5.0 mmol/L CERNER MILLENNIUM Comment: Please note: Patients with WBC >100,000 may have falsely elevated Potassium levels. Contact the Clinical Chemistry Laboratory if there are any questions. ICa Whole Blood 1.08(L) mmol/L CERN ER MILLENNIUM Comment: Reference Ranges: ?? < 19 yrs: 1.22 - 1.37 mmol/L ? Adults: 1.15 - 1.33 mmol/L Note: ??Total bilirubin higher than 20 mg/dL may lead to falsely low ionized calcium. CL Whole Blood 108(H) mmol/L CERNE R MILLENNIUM Gluc Whole Bld 696(Critic al) mg/dL CERNER MILLENNIUM Comment:Diabetes: >=200 mg/d L plus symptoms Fraction of Inspired Oxygen, Venous 60 % CERNER MILLENNIUM Blood Gas Source Venous CERNER MILLENNIUM Blood specimen (specimen) 04/19/2011 8:53 PM EST 04/19/2011 8:53 PM EST Lexi Read MD POINT OF CARE TEST O RDERABLES Performing Organization Address [facility] Co de Phone Number CERNER MILLENNIUM * EKG 12 Lead (04/19/2011 8:47 PM EST) Ventricular rate 103 BPM MUSE SYSTEM Atrial Rate 103 BPM MUSE SYSTEM P-R Interval 152 ms MUSE SYSTEM QRS Duration 84 ms MUSE SYSTEM Q-T Interval 386 ms MUSE SYSTEM QTC Calculated (Bezet) 505 ms MUSE SYSTEM Calculated P [place] 72 degrees MUSE SYSTEM Calculated R [place] 34 degrees MUSE SYSTEM Calculated T [place] 42 degrees MUSE SYSTEM INTERPRETATION Sinus tachycardia Low voltage QRS Nonspecific ST abnormality Abnormal ECG No previous ECGs available Confirmed by MD ALEAH, MARTINA ([id number]) on 04/20/2011 2:54:34 PM MUSE SYSTEM 04/19/2011 8:47 PM EST 04/20/2011 2:54 PM EST Lexi Read MD ECG ORDERABLES Performing Organization Address [facility] de Phone Number MUSE SYSTEM * XR ABDOMEN 1 VIEW (04/19/2011 8:35 PM EST) Anatomical Region Laterality Modality Abdomen N/A Radiographic Michelle ging 04/19/2011 8:35 PM EST Narrative 04/20/2011 11:33 AM EST ABDOMEN, SINGLE VIEW, 04/19/11: ?? HISTORY: ??NG tube placement. ?? TECHNIQUE: ??Single view of the abdomen. ?? FINDINGS: ??There is an NG tube with the proximal port below the hemidiaphragm, distal tip in the region of antrum. ??There is rotoscoliosis. ??There is a paucity of bowel gas. ??A small amount of gas is seen in the descending colon only. ??Obstruction cannot be excluded. Procedure Note Rae Riddle MD - 04/20/2011 ABDOMEN, SINGLE VIEW, 04/19/11: HISTORY: NG tube placement. TECHNIQUE: Single view of the abdomen. FINDINGS: There is an NG tube with the proximal port below thehemidiaphragm, distal tip in the region of antrum. There is rotoscoliosis. There is a paucity of bowel gas. A small amount of gas is seen in the descendingcolon only. Obstruction cannot be excluded. Jason Lau MD IMG DX ORDERABLES * XR chest PA or AP- 1 view (04/19/2011 8:35 PM EST) Anatomical Region Laterality Modality Chest N/A Radiographic Michelle ging 04/19/2011 8:35 PM EST Narrative 04/20/2011 11:33 AM EST CHEST PORTABLE, 04/19/11: ?? INDICATION: ??Evaluate central line placement. ?? TECHNIQUE: ??Single view of the chest. ?? COMPARISON: ??No priors made for comparison. ?? FINDINGS: ??There is an endotracheal tube in position in the trachea. ??NG tube with the proximal port not seen. ??There is a central line with distal tip in the region of RA. ??Cardiac silhouette is within normal limits. ??There is no evidence of pneumothorax. ??The lungs are clear. Procedure Note Rae Riddle MD - 04/20/2011 CHEST PORTABLE, 04/19/11: INDICATION: Evaluate central line placement. TECHNIQUE: Single view of the chest. COMPARISON: No priors made for comparison. FINDINGS: There is an endotracheal tube in position in the trachea. NGtube with the proximal port not seen. There is a central line with distal tipin the region of RA. Cardiac silhouette is within normal limits. There isno evidence of pneumothorax. The lungs are clear. Lexi Read MD IMG DX ORDERABLES * (ABNORMAL) BLOOD GAS 2 ARTERIAL (04/19/2011 8:25 PM EST) pH, Arterial 7.04(Criti sang) CERNER MILLENNIUM PCO2, Arterial 28(L) mmHg CERNE R MILLENNIUM PO2, Arterial 304(H) mmHg CERNER MILLENNIUM Bicarbonate, Arterial 7.3(L) mmol/L CERNER MILLENNIUM Base Excess, Arterial -23.3(L) mmol/L CERNER MILLENNIUM Hgb Blood Gas 8.8(L) gm/dL CERNER MILLENNIUM Comment: Total Hemoglobin (in gm/dL) ?Based on [facility] Hematology ranges: ?Age ?Reference Range Less than 3 days ?14.5 to 22.5 3 days to 2 weeks ? 12.5 to 20.5 2 weeks to 1 month ?10.0 to 18.0 1 to 6 months ?9.4 to 14.0 6 months to 2 years ? 10.5 to 13.5 2 to 6 years ?11.5 to 13.5 6 to 12 years ? 11.5 to 15.5 12 to 18 years (female) 12.0 to 16.0 ? (male) ?? 13.0 to 16.0 > 18 years ? (female) 11.2 to 15.7 ? (male) ?? 13.7 to 17.5 Oxyhemoglobin, Arterial 98.0(H) % CERNER MILLENNIUM Carboxyhemoglob in, Arterial 0.8 % CERNER MILLENNIUM Comment: Nonsmokers: 0.5-1.5% COHB Smokers: Variable, but usually less than 10% Toxic: 20-30% COHB Lethal: Greater than 60% COHB Methemoglobin, Arterial 0.8 % CERNER MILLENNIUM Na Whole Blood 140 mmol/L CERNE R MILLENNIUM K Whole Blood 4.7 mmol/L CERNER MILLENNIUM Comment: Please note: Patients with WBC >100,000 may have falsely elevated Potassium levels. Contact the Clinical Chemistry Laboratory if there are any questions. ICa Whole Blood 0.96(L) mmol/L CERN ER MILLENNIUM Comment: Reference Ranges: ?? < 19 yrs: 1.22 - 1.37 mmol/L ? Adults: 1.15 - 1.33 mmol/L Note: ??Total bilirubin higher than 20 mg/dL may lead to falsely low ionized calcium. CL Whole Blood 112(H) mmol/L CERNE R MILLENNIUM Gluc Whole Bld 658(Critic al) mg/dL CERNER MILLENNIUM Comment:Diabetes: >=200 mg/d L plus symptoms. FIO2 Art 100 % CERNER MILLENNIUM PF Ratio Art 304 CERNER MILLENNIUM Blood specimen (specimen) 04/19/2011 8:25 PM EST 04/19/2011 8:25 PM EST Lexi Read MD POINT OF CARE TEST O RDERABLES CERNER MILLENNIUM * SCAN, PERIPHERAL BLOOD (04/19/2011 8:11 PM EST) Plat estimate Increased CERNER MILLENNIUM RBC Morphology Abnormal CERNE R MILLENNIUM Javier Cells 1-5 /HPF CERNER MILLENNIUM Blood specimen (specimen) 04/19/2011 8:11 PM EST 04/19/2011 8:24 PM EST Lexi Read MD HEMATOLOGY ORDERABLE S CERNER MILLENNIUM * (ABNORMAL) DIFFERENTIAL, AUTOMATED (04/19/2011 8:11 PM EST) Neutrophil % 68.5 34.0 - 71.0 % CERNER MILLENNIUM Neutrophil Absolute 24.48(H) 1.50 - 6.30 x10(3)/mc L CERNER MILLENNIUM Lymph % 15.4(L) 19.0 - 53.0 % CERNER MILLENNIUM Lymphocytes Abs 5.5(H) 1.0 - 3.6 x10(3)/mc L CERNER MILLENNIUM Monocyte % 15.2(H) 4.0 - 13.0 % CERNER MILLENNIUM Monocyte Abs 5.4(H) 0.2 - 1.0 x10(3)/mc L CERNER MILLENNIUM Eos % 0.0 0.0 - 7.0 % CERNER MILLENNIUM Eosinophils Abs 0.0 0.0 - 0.5 x10(3)/mc L CERNER MILLENNIUM Basophil % 0.1 0.0 - 2.0 % CERNER MILLENNIUM Baso Absolute 0.0 0.0 - 0.2 x10(3)/mc L CERNER MILLENNIUM Immature Gran % 0.80(H) 0.00 - 0.66 % CERNER MILLENNIUM Comment: Immature granulocytes(IG's)percentage and absolute count will include metamyelocytes, myelocytes, and promyelocytes. Blood smears from CBCs yielding IG's will be scanned manually for concordance. If this scan disagrees with the automated IG or if promyelocytes are noted, a manual differential will be performed. Immature Gran Absolute 0.27(H) 0.00 - 0.05 x10(3)/mc L CERNER MILLENNIUM Blood specimen (specimen) 04/19/2011 8:11 PM EST 04/19/2011 8:24 PM EST Lexi Read MD HEMATOLOGY ORDERABLE S Performing Organization Address [facility] Co de Phone Number [facility] * BETA HYDROXYBUTYRATE (04/19/2011 8:11 PM EST) Beta-hydroxybu turate >8.00 0.00 - 0.30 mmol/L [facility] Comment: Result rechecked. Reference range: ??0.00-0.30 mmo1/L, based on an overnight fast. ??Children may be higher. Blood specimen (specimen) 04/19/2011 8:11 PM EST 04/19/2011 8:24 PM EST Lexi Read MD CHEMISTRY ORDERABLES Performing Organization Address [facility]/ZIP Co de Phone Number [facility] * ANTIBODY SCREEN (04/19/2011 8:11 PM EST) Ab Screen Interp Negative CERNER MILLENNIUM Expires at [id number] on: [id number] CERNER MILLENNIUM Blood specimen (specimen) 04/19/2011 8:11 PM EST 04/19/2011 8:24 PM EST Lexi Read MD BLOOD BANK LAB ORDER DAKSHA [facility] * ABO/RH TYPING (04/19/2011 8:11 PM EST) ABORH Type A Pos CERNER MILLENNIUM Blood specimen (specimen) 04/19/2011 8:11 PM EST 04/19/2011 8:24 PM EST Lexi Read MD BLOOD BANK LAB ORDER DAKSHA Performing Organization Address [facility] Co de Phone Number [facility] * (ABNORMAL) Phosphorus (04/19/2011 8:11 PM EST) Phosphorus 5.8(H) 2.5 - 4.5 mg/dL [facility] MILLENNIUM Blood specimen (specimen) 04/19/2011 8:11 PM EST 04/19/2011 8:24 PM EST Lexi Read MD CHEMISTRY ORDERABLES Performing Organization Address [facility] Co de Phone Number [facility] * Magnesium (04/19/2011 8:11 PM EST) Magnesium 0.94 0.69 - 1.07 mmol/L [facility] MILL[facility] Blood specimen (specimen) 04/19/2011 8:11 PM EST 04/19/2011 8:24 PM EST Lexi Read MD CHEMISTRY ORDERABLES [facility] * (ABNORMAL) Basic Metabolic Panel (non-fasting) (04/19/2011 8:11 PM EST) Glucose 820(Criti sang) 60 - 199 mg/dL [facility] MILLENNIUM Comment: Result rechecked. Called by: CINTHYA, Read back by:Roseanne Cardenas, Date/Time:04/19/11 21:16. Diabetes: >=200 mg/dL plus symptoms Blood Urea Nitrogen 66(H) 8 - 18 mg/dL CERNER MILLENNIUM Creatinine 3.10(H) 0.70 - 1.20 mg/dL CERNER MILLENNIUM Sodium 138 135 - 145 mmol/L CERNER MILLENNIUM Potassium 5.8(H) 3.5 - 5.0 mmol/L CERNER MILLENNIUM Comment: Please note: ??Patients with WBC >100,000 may have falsely elevated Potassium levels. ??For accurate Potassium quantification in these patients send serum separator tube (gold top) for subsequent determinations. ??Contact the Clinical Chemistry Laboratory if there are any questions. Chloride 101 98 - 107 mmol/L CERNER MILLENNIUM Carbon Dioxide 8(Critica l) 22 - 31 mmol/L CERNER MILLENNIUM Comment: Result rechecked. Called by: CINTHYA, Read back by: Roseanne Cardenas, Date/Time:04/19/11 21:16. Anion Gap 29(H) 5 - 15 mmol/L CERNER MILLENNIUM Calcium 7.2(L) 8.5 - 10.5 mg/dL CERNER MILLENNIUM Est Glomerular Filtration Rate 16(L) >=60 CERNER MILLENNIUM Comment: The National Kidney [...] disease. References: http://nkdep.nih.gov/resources/NKDEP_Suggestn4Labs_0606_508.pdf http://www.kidney.org/professionals/kls/pdf/faq_gfr.pdf Blood specimen (specimen) 04/19/2011 8:11 PM EST 04/19/2011 8:24 PM EST Lexi Read MD CHEMISTRY ORDERABLES CERNER MILLENNIUM * (ABNORMAL) CBC (with Diff) (04/19/2011 8:11 PM EST) White Blood Cell 35.7(Crit ical) 4.0 - 10.0 x10(3)/mc L CERNER MILLENNIUM Comment: This result has been called to JOSE MONROE by DEACON HUA on; 04.19.11 at 21:12, and has been read back (). Red Blood Cell 3.81(L) 3.93 - 5.22 x10(6)/mc L CERNER MILLENNIUM Hemoglobin 9.4(L) 11.2 - 15.7 gm/dL CERNER MILLENNIUM Hematocrit 30.1(L) 34.0 - 45.0 % CERNER MILLENNIUM Mean Cell Volume 79.0 79.0 - 94.0 fL CERNER MILLENNIUM Mean Cell Hemoglobin 24.7(L) 26.6 - 32.2 pg CERNER MILLENNIUM Mean Cell Hemoglobin Concentration 31.2(L) 32.0 - 36.5 gm/dL CERNER MILLENNIUM Platelet 515(H) 145 - 370 x10(3)/mc L CERNER MILLENNIUM RDW Standard Deviation 49.6(H) 35.0 - 46.0 fL CERNER MILLENNIUM RDW coefficient of variation 17.3(H) 10.9 - 14.4 % CERNER MILLENNIUM Mean Platelet Volume 9.1 9.0 - 12.0 fL CERNER MILLENNIUM Blood specimen (specimen) 04/19/2011 8:11 PM EST 04/19/2011 8:24 PM EST Lexi Read MD HEMATOLOGY ORDERABLE S Performing Organization Address [facility] Phone Number [facility] * APTT (04/19/2011 8:11 PM EST) Partial Thromboplastin Time 29 25 - 35 sec [facility] Comment: Recommended therapeutic PTT range for full dose unfractionated heparin is 80-114 seconds. Blood specimen (specimen) 04/19/2011 8:11 PM EST 04/19/2011 8:24 PM EST Lexi Read MD HEMATOLOGY ORDERABLE S Performing Organization Address [facility] Phone Number [facility] * (ABNORMAL) Prothrombin Time (04/19/2011 8:11 PM EST) Prothrombin Time 18.5(H) 12.3 - 14.7 sec [facility] Comment: [facility] Transfusion Committee Guidelines: INR less than 2.0, PTT less than OR equal to 43.5 seconds, or Fibrinogen greater than or equal to 100 mg/dl indicate adequate procoagulant activity for hemostasis in patients without underlying bleeding disorders. International Normalization Ratio 1.5(H) 0.9 - 1.1 [facility] Blood specimen (specimen) 04/19/2011 8:11 PM EST 04/19/2011 8:24 PM EST Lexi Read MD HEMATOLOGY ORDERABLE S Performing Organization Address [facility] Phone Number [facility] * Lactic acid, plasma (04/19/2011 8:11 PM EST) Lactic Acid 0.8 0.5 - 2.2 mmol/L [facility] Blood specimen (specimen) 04/19/2011 8:11 PM EST 04/19/2011 8:24 PM EST Lexi Read MD CHEMISTRY ORDERABLES Performing Organization Address [facility] Co de Phone Number [facility] * (ABNORMAL) Osmolality (04/19/2011 8:11 PM EST) Osmolality 316(H) 275 - 295 mOsm/kg [facility] Blood specimen (specimen) 04/19/2011 8:11 PM EST 04/19/2011 8:24 PM EST Lexi Read MD CHEMISTRY ORDERABLES Performing Organization Address [facility] Co de Phone Number [facility] * CENTRAL LINE (04/19/2011 7:38 PM EST) Narrative 04/19/2011 7:38 PM EST Central Line Placement Procedure Note Indication for Central Line Insertion: New Catheter: ??volume replacement, access, monitoring, medication administration and sepsis This insertion was not to replace a malfunctioning central line. This insertion was not due to a suspected central line associated infection. Location of Procedure: [facility] Risks and Benefits: The risks and benefits of this procedure were not reviewed and informed consent was not obtained. Time Out: Prior to the start of the procedure, the patient's identity, intended procedure, site/side, correct patient positioning and presence of the site martina was confirmed as applicable. The medical history and chart were reviewed to rule out potential contraindications to the planned procedure. Hand Hygiene: The mainspring strip inspector did perform hand hygiene prior to central line insertion. Procedure Technique: Skin was prepped with chlorhexidine . Skin preparation agent was completely dry at the time of first skin puncture. The following barrier precautions were used:large sterile drape, mask/eye shield, large sterile gown, sterile gloves and cap. 5 ml of 1% Lidocaine was used for skin wheal. Ultrasound was used for guidance. Procedure Details: A 22 gauge finder needle was used to identify the vein. An 18 Ga. X 2.5 inch Catheter needle was placed in vein after blood return identified. Guided by a 0.018 inch diameter guide wire, a 12 Fr., 3 lumen, 20 cm catheter was inserted using the Seldinger Technique. Additional Catheter Details: Catheter type: antimicrobial coated. Catheter was a non tunneled. Insertion site was left, jugular (internal). There was 2 attempt(s). The catheter was sutured to the skin at 19 cm. The central line was placed over a guidewire. Sterile Dressing: Tegaderm Findings: Patient tolerated procedure well., Blood returned appropriately. Complications: No Complications. Post Procedure: Chest x-ray ordered. Procedure Comments: Procedure Note Mau Aviles PA - 04/19/2011 7:35 PM EST Central Line Placement Procedure Note Indication for Central Line Insertion: New Catheter: volume replacement, access, monitoring, medicationadministration and sepsis This insertion was not to replace a malfunctioning central line. This insertion was not due to a suspected central line associatedinfection. Location of Procedure: [facility] Risks and Benefits: The risks and benefits of this procedure were not reviewed and informedconsent was not obtained. Time Out: Prior to the start of the procedure, the patient's identity, intendedprocedure, site/side, correct patient positioning and presence of the sitemark was confirmed as applicable. The medical history and chart werereviewed to rule out potential contraindications to the planned procedure. Hand Hygiene: The mainspring strip inspector did perform hand hygiene prior to central line insertion. Procedure Technique: Skin was prepped with chlorhexidine . Skin preparation agent was completely dry at the time of first skinpuncture. The following barrier precautions were used:large sterile drape, mask/eyeshield, large sterile gown, sterile gloves and cap. 5 ml of 1% Lidocaine was used for skin wheal. Ultrasound was used forguidance. Procedure Details: A 22 gauge finder needle was used to identify the vein. An 18 Ga. X 2.5inch Catheter needle was placed in vein after blood return identified.Guided by a 0.018 inch diameter guide wire, a 12 Fr., 3 lumen, 20 cmcatheter was inserted using the Seldinger Technique. Additional Catheter Details: Catheter type: antimicrobial coated. Catheter was a non tunneled. Insertion site was left, jugular (internal). There was 2 attempt(s). The catheter was sutured to the skin at 19 cm. The central line was placed over a guidewire. Sterile Dressing: Tegaderm Findings: Patient tolerated procedure well., Blood returned appropriately. Complications: No Complications. Post Procedure: Chest x-ray ordered. Procedure Comments: Lexi Read MD PROCEDURE/MINOR SURG ICAL ORDERABLES documented in this encounter Visit Diagnoses Diagnosis DKA (diabetic ketoacidoses)- Primary Type II or unspecified type diabetes mellitus with ketoacidosis, not stated as uncontrolled Shock Shock, unspecified Diabetes mellitus Type II or unspecified type diabetes mellitus without mention of complication, not stated as uncontrolled Reflux esophagitis Gastritis Unspecified gastritis and gastroduodenitis without mention of hemorrhage Anasarca Edema documented in this encounter Administered Medications Inactive Administered Medications - up to 3 most recent administrations Medication Order MAR Action Action Date Dose Rate Site aspirin chewable tablet 81 mg 81 mg, Oral, DAILY, First dose on 04/20/11 at 1500, Until Discontinued, Routine Given 04/28/2011 8:25 AM EST 81 mg Given 04/27/2011 8:00 AM EST 81 mg Given 04/26/2011 8:24 AM EST 81 mg atorvastatin (LIPITOR) tablet 20 mg 20 mg, Oral, EVERY EVENING, First dose on 04/20/11 at 1700, Until Discontinued, Routine Given 04/28/2011 4:24 PM EST 20 mg Given 04/27/2011 4:23 PM EST 20 mg Given 04/26/2011 5:16 PM EST 20 mg chlorhexidine (PERIDEX) 0.12 % oral solution 15 mL 15 mL, Oral, 2 TIMES DAILY, First dose on 04/20/11 at 0900, Until Discontinued, Routine Given 04/24/2011 8:05 PM EST 15 mLs Given 04/24/2011 9:00 AM EST 15 mLs Given 04/23/2011 8:33 PM EST 15 mLs dexmedetomidine (PRECEDEX) 400 mcg in sodium chloride 0.9% 100 mL infusion 0-0.7 mcg/kg/hr ? 83.3 kg (rounded to 0-14.6 mL/hr), Intravenous, CONTINUOUS, Starting on Thu04/21/11 at 0330, Until Thu04/21/11 at 1821 Rate/Dose Change 04/21/2011 6:00 PM EST 0.2 mcg/kg/hr 4.2 mL/hr New Bag 04/21/2011 4:55 PM EST 0.3 mcg/kg/hr 6.2 mL/hr Rate/Dose Change 04/21/2011 3:48 PM EST 0.3 mcg/kg/hr 6.2 mL/hr dexmedetomidine (PRECEDEX) 400 mcg in sodium chloride 0.9% 100 mL infusion 0-0.5 mcg/kg/hr ? 83.3 kg (rounded to 0-10.4 mL/hr), Intravenous, CONTINUOUS, Starting on Thu04/21/11 at 1830, Until Thu04/22/11 at 1848 Rate/Dose Change 04/22/2011 7:45 AM EST 0.4 mcg/kg/hr 8.3 mL/hr 04/22/2011 2:00 AM EST 0.5 mcg/kg/hr 10.4 mL/hr Rate/Dose Change 04/21/2011 10:00 PM EST 0.05 mcg/kg/hr 1 mL/hr dextrose 5% and sodium chloride 0.45% infusion 75 mL/hr, Intravenous, CONTINUOUS, Starting on Thu04/20/11 at 2215, Until Thu04/22/11 at 1848 04/22/2011 4:48 AM EST 75 mL/hr 75 mL /hr New 04/21/2011 12:49 PM EST 75 mL/hr 75 mL/hr Rate/Dose Change 04/21/2011 8:52 AM EST 75 mL/hr 75 mL/h r dextrose 5% and sodium chloride 0.45% with potassium chloride 20 mEq infusion 150 mL/hr, Intravenous, CONTINUOUS, Starting on Thu04/20/11 at 0645, Until Thu04/20/11 at 2153 04/20/2011 8:22 PM EST 150 mL/hr 150 mL/hr 04/20/2011 1:30 PM EST 150 mL/hr 150 mL/hr 04/20/2011 6:45 AM EST 150 mL/hr 150 mL/hr enoxaparin (LOVENOX) injection 40 mg 40 mg, Subcutaneous, EVERY 24 HOURS SCHEDULED (Daily), First dose on 04/26/11 at 1300, Until Discontinued, Routine Given 04/28/2011 8:26 AM EST 40 mg Given 04/27/2011 8:00 AM EST 40 mg Le ft Lower Quadrant escitalopram (LEXAPRO) tablet 40 mg 40 mg, Oral, DAILY, First dose on Thu04/22/11 at 1000, Until Discontinued, Routine Given 04/29/2011 9:00 AM EST 40 mg Given 04/28/2011 8:26 AM EST 40 mg Given 04/27/2011 8:00 AM EST 40 mg esomeprazole (NEXIUM) 80 mg in sodium chloride 0.9% 160 mL infusion 8 mg/hr (rounded to 16 mL/hr), Intravenous, CONTINUOUS, Starting on 04/19/11 at 2000, Until Thu04/21/11 at 0852 Rate/Dose Verify 04/20/2011 8:24 PM EST 8 mg/hr 16 mL/hr New Bag 04/20/2011 5:12 PM EST 8 mg/hr 16 mL/hr New Bag 04/20/2011 6:00 AM EST 8 mg/hr 16 mL/hr esomeprazole (NEXIUM) capsule 40 mg 40 mg, Oral, 2 TIMES DAILY BEFORE MEALS, First dose (after last modification) on 04/26/11 at 0845, Until Discontinued, Routine Given 04/29/2011 6:48 AM EST 40 mg Given 04/28/2011 4:24 PM EST 40 mg Given 04/28/2011 7:31 AM EST 40 mg esomeprazole (NEXIUM) injection 40 mg 40 mg, Intravenous, EVERY 12 HOURS SCHEDULED (2 times per day), First dose on Thu04/21/11 at 1000, Until Discontinued Given 04/25/2011 12:45 PM EST 40 mg Given 04/24/2011 8:05 PM EST 40 mg Given 04/24/2011 9:00 AM EST 40 mg esomeprazole (NEXIUM) injection 80 mg 80 mg, Intravenous, ONCE, 1 dose, On 04/19/11 at 1945 Given 04/19/2011 8:30 PM EST 80 mg etomidate (AMIDATE) injection 30 mg 30 mg, Intravenous, ONCE, 1 dose, On Thu04/21/11 at 0300, Routine Given by Other 04/21/2011 2:00 AM EST 30 mg fentaNYL 2500mcg/50mL infusion 0-250 mcg/hr (rounded to 0-5 mL/hr), Intravenous, CONTINUOUS, Starting on 04/19/11 at 2030, Until Thu04/21/11 at 1319, Initial bolus dose: 25 mcg; IV once now followed by continuous infusion Continuous Infusion rate:25 mcg/hour; Reassess in 15 minutes If pain scale is greater than goal- Re-bolus dose: 25 mcg. Subsequent re-bolus doses 50% hourly rate (IV mcg) Followed by increase continuous infusion by 25%, reassess in 30 minutes. If pain scale is greater than ordered goal: Re-bolus with 50% of new hourly rate AND increase infusion by 25% Rate/Dose Change 04/21/2011 5:35 AM EST 25 mcg/hr 0.5 mL/hr Rate/Dose Change 04/21/2011 12:50 AM EST 50 mcg/hr 1 mL/h r Rate/Dose Change 04/20/2011 10:00 PM EST 25 mcg/hr 0.5 mL /hr fentaNYL 50mcg/mL injection 50 mcg, Intravenous, EVERY 1 HOUR PRN, Starting on 04/19/11 at 2344, Until Thu04/21/11 at 1319, Pain, PRN pain scale greater than goal or pre-procedure, Routine Given 04/21/2011 12:30 AM EST 25 mcg Given 04/20/2011 6:00 PM EST 50 mcg Given 04/20/2011 3:25 AM EST 50 mcg folic acid (FOLVITE) tablet 1,000 mcg 1,000 mcg (1 mg), Oral, DAILY, First dose on 04/27/11 at 1400, Until Discontinued, Routine Given 04/29/2011 9:00 AM EST 1,000 mcg Given 04/28/2011 8:26 AM EST 1,000 mcg Given 04/27/2011 4:22 PM EST 1,000 mcg furosemide (LASIX) injection 20 mg 20 mg, Intravenous, DAILY, First dose on Thu04/23/11 at 1745, Until Discontinued Given 04/25/2011 12:45 PM EST 20 mg Given 04/24/2011 9:00 AM EST 20 mg Given 04/23/2011 5:45 PM EST 20 mg furosemide (LASIX) tablet 40 mg 40 mg, Oral, DAILY, First dose on 04/26/11 at 0900, Until Discontinued, Routine Given 04/27/2011 8:00 AM EST 40 mg Given 04/26/2011 8:24 AM EST 40 mg furosemide (LASIX) tablet 40 mg 40 mg, Oral, ONCE, 1 dose, On 04/27/11 at 1030, For total of 80 mg today., Routine Given 04/27/2011 12:13 PM EST 40 mg furosemide (LASIX) tablet 80 mg 80 mg, Oral, DAILY, First dose (after last modification) on 04/28/11 at 0900, Until Discontinued, Routine Given 04/28/2011 8:26 AM EST 80 mg hydrocortisone sodium succinate (SOLU-CORTEF) injection 50 mg 50 mg, Intravenous, EVERY 8 HOURS SCHEDULED, First dose (after last modification) on Thu04/22/11 at 1400, Until Discontinued Given 04/23/2011 3:00 PM EST 50 mg Given 04/23/2011 6:42 AM EST 50 mg Given 04/22/2011 10:17 PM EST 50 mg hydrocortisone sodium succinate (SOLU-CORTEF) injection 80 mg 80 mg, Intravenous, EVERY 8 HOURS SCHEDULED, First dose (after last modification) on Thu04/20/11 at 1400, Until Discontinued Given 04/22/2011 6:00 AM EST 80 mg Given 04/21/2011 10:00 PM EST 80 mg Given 04/21/2011 2:00 PM EST 80 mg insulin aspart (NOVOLOG) PEN injection 1-6 Units 1-6 Units, Subcutaneous, EVERY 4 HOURS, First dose (after last modification) on Thu04/25/11 at 1200, Until Discontinued, CORRECTION BOLUS Custom doses BG 140 - 160 Give 1 units BG 161 - 200 Give 2 units BG 201 - 240 Give 4 units BG greater than 240, give 6 units every 2 hours until BG less than 240 (no more than three times) & call for new basal insulin orders , Routine Given 04/29/2011 8:00 AM EST 6 Units Given 04/29/2011 5:09 AM EST 1 Units Given 04/29/2011 12:09 AM EST 6 Units insulin aspart (NOVOLOG) PEN injection 1-7 Units 1-7 Units, Subcutaneous, 3 TIMES DAILY WITH MEALS, First dose on Thu04/23/11 at 1200, Until Discontinued, [employer] Give 1 unit for every 12 grams carbohydrate. Hold if not eating, Routine Given 04/29/2011 8:00 AM EST 7 Units Given 04/28/2011 5:41 PM EST 5 Units Given 04/28/2011 12:43 PM EST 6 Units insulin aspart (NOVOLOG) PEN injection 2-8 Units 2-8 Units, Subcutaneous, EVERY 4 HOURS, First dose (after last modification) on Thu04/23/11 at 1600, Until Discontinued, CORRECTION BOLUS Moderate BG 140 - 160 Give 2 units BG 161 - 200 Give 4 units BG 201 - 240 Give 6 units BG greater than 240, give 8 units every 2 hours until BG less than 240 (no more than three times) & call for new basal insulin orders , Routine Given 04/24/2011 8:06 PM EST 6 Uni ts Given 04/24/2011 12:00 PM EST 4 Units Given 04/24/2011 4:09 AM EST 4 Units insulin aspart (NOVOLOG) VIAL injection 20-40 Units 20-40 Units, Subcutaneous, DAILY, First dose on Thu04/29/11 at 0900, Until Discontinued, Patient to administer per own pump. Before discontinuing the pump, obtain an order for an administer subcutaneous basal insulin. New Syringe/Cartridge 04/29/2011 9:00 AM EST 40 Units insulin glargine (LANTUS) VIAL injection 15 Units 15 Units, Subcutaneous, DAILY, First dose (after last modification) on 04/28/11 at 1000, Until Discontinued, Routine Given 04/28/2011 9:33 AM EST 15 Units insulin glargine (LANTUS) VIAL injection 16 Units 16 Units, Subcutaneous, DAILY, First dose on Thu04/23/11 at 1100, Until Discontinued, STAT Given 04/23/2011 11:25 AM EST 16 Units insulin glargine (LANTUS) VIAL injection 18 Units 18 Units, Subcutaneous, DAILY, First dose (after last modification) on Thu04/24/11 at 1000, Until Discontinued, Routine Given 04/27/2011 11:30 AM EST 18 Units Given 04/26/2011 10:47 AM EST 18 Units Given 04/25/2011 12:45 PM EST 18 Units insulin regular human (HUMULIN;NOVOLIN) 150 Units in sodium chloride 0.9% 150 mL infusion 0.5-8 Units/hr (rounded to 0.5-8 mL/hr), Intravenous, CHANGE BAG EVERY EVENING, First dose on 04/19/11 at 2030, Until Discontinued, Type 1 diabetes. Current blood glucose 360 or greater. Titration- aim for target range of 140 - 180 mg/dL. Check BG every hour unless otherwise indicated. [[ Initial bolus of 8 unit, then begin continuous infusion at 6.5 units/hour. ]] Current BG less than 80 - Stop insulin, give juice or D50 per protocol. Re-check BG in 30 minutes and as soon as BG is greater than 80, restart with rate 50% of previous rate. If previous rate had been 0.5 units/hour, restart at 0.5 units/hour when BG greater than 100. Current BG 80 - 139 - If BG dropped 10 mg/dL or more since last test, decrease rate by 50% and re-check in 30 minutes. Otherwise, decrease rate by 0.5 units/hour. Current BG 140 - 180 - If BG dropped 50 mg/dL or more since last test, decrease rate by 1 unit/hour. Otherwise, maintain same rate. Current BG 181 - 220 - If BG is lower than last test, maintain same rate. Otherwise, increase rate by 0.5 units/hour. Current BG 221 - 250 - If BG dropped 30 mg/dL or more since last test, maintain same rate. Otherwise, increase rate by 1 unit/hour. Current BG greater than 250 - Increase rate by 1 unit/hour AND bolus with Regular insulin IV as per IV Bolus Scale. Re-check BG in 30 minutes. Rate/Dose Change 04/20/2011 10:19 AM EST 12 Units/hr 12 mL/hr Rate/Dose Change 04/20/2011 8:40 AM EST 11 Units/hr 11 mL/ hr New Bag 04/20/2011 8:38 AM EST 10 Units/hr 10 mL/hr insulin regular human (HUMULIN;NOVOLIN) 150 Units in sodium chloride 0.9% 150 mL infusion 0.5-12 Units/hr (rounded to 0.5-12 mL/hr), Intravenous, CHANGE BAG EVERY EVENING, First dose (after last modification) on 04/20/11 at 1615, Until Discontinued, Type 1 diabetes. Current blood glucose 360 or greater. Titration- aim for target range of 140 - 180 mg/dL. Check BG every hour unless otherwise indicated. [[ Initial bolus of 8 unit, then begin continuous infusion at 6.5 units/hour. ]] Current BG less than 80 - Stop insulin, give juice or D50 per protocol. Re-check BG in 30 minutes and as soon as BG is greater than 80, restart with rate 50% of previous rate. If previous rate had been 0.5 units/hour, restart at 0.5 units/hour when BG greater than 100. Current BG 80 - 139 - If BG dropped 10 mg/dL or more since last test, decrease rate by 50% and re-check in 30 minutes. Otherwise, decrease rate by 0.5 units/hour. Current BG 140 - 180 - If BG dropped 50 mg/dL or more since last test, decrease rate by 1 unit/hour. Otherwise, maintain same rate. Current BG 181 - 220 - If BG is lower than last test, maintain same rate. Otherwise, increase rate by 0.5 units/hour. Current BG 221 - 250 - If BG dropped 30 mg/dL or more since last test, maintain same rate. Otherwise, increase rate by 1 unit/hour. Current BG greater than 250 - Increase rate by 1 unit/hour AND bolus with Regular insulin IV as per IV Bolus Scale. Re-check BG in 30 minutes. Rate/Dose Verify 04/21/2011 12:46 PM EST 2.5 Units/hr 2.5 mL/hr Rate/Dose Verify 04/21/2011 12:00 PM EST 2.5 Units/hr 2.5 mL/hr Rate/Dose Change 04/21/2011 11:14 AM EST 2.5 Units/hr 2.5 mL/hr insulin regular human (HUMULIN;NOVOLIN) 150 Units in sodium chloride 0.9% 150 mL infusion 0.5-8 Units/hr (rounded to 0.5-8 mL/hr), Intravenous, CHANGE BAG EVERY EVENING, First dose on 04/21/11 at 1445, Until Discontinued, Type 1 diabetes. Current blood glucose 140 - 179 Titration- aim for target range of 140 - 180 mg/dL. Check BG every hour unless otherwise indicated. [[ No initial bolus. Begin continuous infusion at 1 units/hour. ]] Current BG less than 80 - Stop insulin, give juice or D50 per protocol. Re-check BG in 30 minutes and as soon as BG is greater than 80, restart with rate 50% of previous rate. If previous rate had been 0.5 units/hour, restart at 0.5 units/hour when BG greater than 100. Current BG 80 - 139 - If BG dropped 10 mg/dL or more since last test, decrease rate by 50% and re-check in 30 minutes. Otherwise, decrease rate by 0.5 units/hour. Current BG 140 - 180 - If BG dropped 50 mg/dL or more since last test, decrease rate by 1 unit/hour. Otherwise, maintain same rate. Current BG 181 - 220 - If BG is lower than last test, maintain same rate. Otherwise, increase rate by 0.5 units/hour. Current BG 221 - 250 - If BG dropped 30 mg/dL or more since last test, maintain same rate. Otherwise, increase rate by 1 unit/hour. Current BG greater than 250 - Increase rate by 1 unit/hour AND bolus with Regular insulin IV as per IV Bolus Scale. Re-check BG in 30 minutes. Rate/Dose Change 04/22/2011 9:07 PM EST 3 Units/hr 3 mL/hr Rate/Dose Change 04/22/2011 7:43 PM EST 2 Units/hr 2 mL/hr Rate/Dose Verify 04/22/2011 6:25 PM EST 2.5 Units/hr 2.5 m L/hr insulin regular human (HUMULIN;NOVOLIN) 150 Units in sodium chloride 0.9% 150 mL infusion 0.5-8 Units/hr (rounded to 0.5-8 mL/hr), Intravenous, CHANGE BAG EVERY EVENING, First dose on Thu04/22/11 at 2245, Until Discontinued, Type 1 diabetes. Current blood glucose 180 - 239 Titration- aim for target range of 140 - 180 mg/dL. Check BG every hour unless otherwise indicated. [[ Initial bolus of 2 units, then begin continuous infusion at 2 units/hour. ]] Current BG less than 80 - Stop insulin, give juice or D50 per protocol. Re-check BG in 30 minutes and as soon as BG is greater than 80, restart with rate 50% of previous rate. If previous rate had been 0.5 units/hour, restart at 0.5 units/hour when BG greater than 100. Current BG 80 - 139 - If BG dropped 10 mg/dL or more since last test, decrease rate by 50% and re-check in 30 minutes. Otherwise, decrease rate by 0.5 units/hour. Current BG 140 - 180 - If BG dropped 50 mg/dL or more since last test, decrease rate by 1 unit/hour. Otherwise, maintain same rate. Current BG 181 - 220 - If BG is lower than last test, maintain same rate. Otherwise, increase rate by 0.5 units/hour. Current BG 221 - 250 - If BG dropped 30 mg/dL or more since last test, maintain same rate. Otherwise, increase rate by 1 unit/hour. Current BG greater than 250 - Increase rate by 1 unit/hour AND bolus with Regular insulin IV as per IV Bolus Scale. Re-check BG in 30 minutes. Rate/Dose Verify 04/23/2011 11:28 AM EST 1 Units/hr 1 mL/hr Rate/Dose Change 04/23/2011 10:34 AM EST 1 Units/hr 1 mL/h r Rate/Dose Verify 04/23/2011 9:25 AM EST 1 Units/hr 1 mL/hr insulin regular human (humuLIN;novoLIN) 150 Units in sodium chloride 0.9%150 mL BOLUS 0-8 Units 0-8 Units, Intravenous, PER INSULIN PROTOCOL, Starting on 04/19/11 at 2000, Until Thu04/21/11 at 1319, Per Protocol, BOLUS order. Type 1 Initial bolus 8 Units. Adjustment bolus per insulin infusion protocol: IV insulin Bolus scale: For BG in mg/dL (250-299 = 4 units, 300-359 = 6 units, greater than 360 = 8 units) , Routine Bolus from Bag 04/20/2011 10:20 AM EST 4 Units Bolus from Bag 04/20/2011 8:44 AM EST 4 Units Bolus from Bag 04/20/2011 7:00 AM EST 6 Units insulin regular human (humuLIN;novoLIN) 150 Units in sodium chloride 0.9%150 mL BOLUS 0-8 Units 0-8 Units, Intravenous, PER INSULIN PROTOCOL, Starting on Thu04/21/11 at 1434, Until Thu04/22/11 at 2011, Per Protocol, BOLUS order. Type 1 No initial bolus. Adjustment bolus per insulin infusion protocol: IV insulin Bolus scale: For BG in mg/dL (250-299 = 4 units, 300-359 = 6 units, greater than 360 = 8 units) , Routine Bolus from Bag 04/21/2011 9:28 PM EST 4 Units lactated ringers 1,000 mL IV bolus Intravenous, ONCE, 1 dose, On 04/19/11 at 2200 Given 04/19/2011 9:40 PM EST lactated ringers 1,000 mL IV bolus Intravenous, ONCE, 1 dose, On 04/20/11 at 0100 Given 04/20/2011 12:46 AM EST lactated ringers 500 mL IV bolus Intravenous, ONCE, 1 dose, On 04/19/11 at 2200 Given 04/19/2011 10:00 PM EST lactated ringers 500 mL IV bolus Intravenous, ONCE, 1 dose, On 04/20/11 at 0030 Given 04/20/2011 12:30 AM EST lactated ringers infusion 999 mL/hr, Intravenous, CONTINUOUS, Starting on 04/20/11 at 0330, Until 04/20/11 at 1135 New Bag 04/20/2011 3:30 AM EST 999 mL/hr 999 mL/hr levothyroxine (SYNTHROID) injection 65 mcg 65 mcg, Intravenous, EVERY MORNING, First dose on Thu04/20/11 at 0600, Until Discontinued, Administer over 1 Minutes Given 04/21/2011 6:00 AM EST 65 mcg 195 mL/hr Given 04/20/2011 6:00 AM EST 65 mcg 195 mL/hr levothyroxine (SYNTHROID) injection 75 mcg 75 mcg, Intravenous, EVERY MORNING, First dose (after last modification) on Thu04/22/11 at 0600, Until Discontinued, Administer over 1 Minutes Given 04/27/2011 6:36 AM EST 75 mcg 225 mL/hr Given 04/26/2011 6:21 AM EST 75 mcg 225 mL/hr Given 04/25/2011 5:18 AM EST 75 mcg 225 mL/hr levothyroxine (SYNTHROID) tablet 150 mcg 150 mcg, Oral, EVERY MORNING, First dose on Thu04/28/11 at 0600, Until Discontinued, Routine Given 04/29/2011 5:40 AM EST 150 mcg Given 04/28/2011 7:53 AM EST 150 mcg magnesium sulfate 1g in dextrose 5% 100mL 1 g, Intravenous, ONCE, 1 dose, On 04/20/11 at 0830, Administer over 60 Minutes Given 04/20/2011 8:30 AM EST 1 g 100 mL/hr magnesium sulfate 2 g/50 mL IV 2 g, Intravenous, ONCE, 1 dose, On 04/20/11 at 1400, Administer over 120 Minutes Given 04/20/2011 2:00 PM EST 2 g 25 mL/hr midazolam (VERSED) injection 1 mg 1 mg, Intravenous, EVERY 4 HOURS PRN, Starting on 04/19/11 at 2258, Until Thu04/20/11 at 1347, Anxiety, For sedation breakthrough when RASS +1 or +2., Routine Given 04/20/2011 12:20 AM EST 1 mg midazolam (VERSED) injection 2 mg 2 mg, Intravenous, ONCE, 1 dose, On 04/19/11 at 2315, Routine Given 04/19/2011 11:00 PM EST 2 mg midazolam 1 mg/mL (standard ADULT & Dante greater than 20kg) infusion 0-5 mg/hr (rounded to 0-5 mL/hr), Intravenous, CONTINUOUS, Starting on 04/19/11 at 2315, Until 04/20/11 at 1344, detention for ventilator synchrony/Acute respiratory distress syndrome (ARDS) or greater than 72 hours patient. Titrate to ventilator synchrony. Doses greater than 10 mg/hr require critical care attending approval., Routine New Bag 04/21/2011 2:45 AM EST 1 mg/hr 1 mL/hr Rate/Dose Verify 04/20/2011 6:18 AM EST 3 mg/hr 3 mL/hr Rate/Dose Change 04/20/2011 3:25 AM EST 3 mg/hr 3 mL/hr midazolam in normal saline (VERSED) 1 mg/mL infusion 1 dose, Starting on 04/21/11 at 0235, Until 04/21/11 at 0245, BRONSON BEY: Cabinet Override NORepinephrine (LEVOPHED) 4 mg/250 mL infusion 1 dose, Starting on 04/19/11 at 1930, Until 04/19/11 at 1930, ROSEANNE CARDENAS: Cabinet Override NORepinephrine (LEVOPHED) 4 mg/250 mL infusion 1 dose, Starting on 04/19/11 at 2059, Until 04/19/11 at 2100, ETHAN CARTWRIGHT: Cabinet Override New Bag 04/19/2011 9:00 PM EST 20 mcg/min 75 mL/ hr NORepinephrine 16 mcg/mL (standard ADULT & Dante greater than 20kg) infusion 0.5-30 mcg/min (rounded to 1.9-112.5 mL/hr), Intravenous, CONTINUOUS, Starting on 04/19/11 at 2130, Until 04/20/11 at 0241, Routine New Bag 04/20/2011 2:24 AM EST 30 mcg/min 112.5 mL/hr Rate/Dose Verify 04/20/2011 2:01 AM EST 30 mcg/min 112.5 m L/hr Rate/Dose Change 04/20/2011 12:20 AM EST 30 mcg/min 112.5 mL/hr NORepinephrine(LEVOPHED) 16 mg in dextrose 5% 1000 mL infusion 0.5-30 mcg/min (rounded to 1.9-112.5 mL/hr), Intravenous, CONTINUOUS, Starting on Thu04/20/11 at 0300, Until Thu04/21/11 at 0852, For MAP >/= 65mmHg Rate/Dose Change 04/21/2011 5:37 AM EST 3 mcg/min 11.3 mL/hr Rate/Dose Change 04/21/2011 4:45 AM EST 4 mcg/min 15 mL/h r Restarted 04/21/2011 2:00 AM EST 5 mcg/min 18.8 mL/hr ondansetron (ZOFRAN) injection 4 mg 4 mg, Intravenous, EVERY 8 HOURS PRN, Starting on Thu04/24/11 at 1325, Until Thu04/29/11 at 1651, Nausea, Routine Given 04/26/2011 10:49 AM EST 4 mg Given 04/24/2011 2:00 PM EST 4 mg piperacillin-tazobactam (ZOSYN) 3.375 g in dextrose 5% 50 mL 3.375 g, Intravenous, EVERY 6 HOURS SCHEDULED, First dose on Thu04/20/11 at 0000, Until Discontinued, Administer over 30 Minutes Given 04/22/2011 6:00 AM EST 3.375 g 100 mL/hr Given 04/22/2011 12:00 AM EST 3.375 g 100 mL/hr Given 04/21/2011 6:00 PM EST 3.375 g 100 mL/hr potassium chloride (K-DUR) tablet 40 mEq 40 mEq, Oral, ONCE, 1 dose, On Thu04/24/11 at 0745, STAT Given 04/24/2011 7:45 AM EST 40 mEq potassium chloride (K-DUR) tablet 40 mEq 40 mEq, Oral, 2 TIMES DAILY, 4 doses, First dose on Thu04/24/11 at 1200, Last dose on Thu04/25/11 at 2100, Routine Given 04/25/2011 9:00 PM EST 40 mEq Given 04/25/2011 12:45 PM EST 40 mEq Given 04/24/2011 8:05 PM EST 40 mEq potassium chloride 10 mEq with lidocaine (1%) 1 mL in sodium chloride 0.9% 100 mL IV 10 mEq, Intravenous, EVERY 2 HOURS, 4 doses, First dose (after last modification) on [place] 04/24/11 at 0800, Last dose on [facility] 04/24/11 at 1400, Administer over 60 Minutes Given 04/24/2011 1:09 PM EST 10 mEq Given 04/24/2011 12:00 PM EST 10 mEq Given 04/24/2011 10:00 AM EST 10 mEq potassium chloride 20 mEq in 100 mL 20 mEq, Intravenous, EVERY 1 HOUR PRN, Starting on Thu04/20/11 at 0829, Until Thu04/22/11 at 2008, Administer over 60 Minutes, hypokalemia, Administer for a serum potassium (mMol/L) of 3.9 - 4 New Bag 04/22/2011 4:25 PM EST 20 mEq 100 mL/hr potassium chloride 20 mEq in 100 mL 20 mEq, Intravenous, EVERY 2 HOURS, 2 doses, First dose on Thu04/20/11 at 0830, Last dose on [place] 04/20/11 at 1000 Given 04/20/2011 10:30 AM EST 20 mEq Given 04/20/2011 9:30 AM EST 20 mEq potassium chloride SA (K-DUR;KLOR-CON) tablet 40 mEq 40 mEq, Oral, ONCE, 1 dose, On [place] 04/27/11 at 1030, 20 mEq tablet may be dissolved in water for administration, Routine Given 04/27/2011 12:18 PM EST 40 mEq potassium phosphate 15 mMol in sodium chloride 0.9% 250 mL 15 mmol, Intravenous, ONCE, 1 dose, On [place] 04/20/11 at 1745, Administer over 4 Hours, Administer over 4-6 hours Given 04/20/2011 6:50 PM EST 15 mmol 62.5 mL/hr sodium chloride 0.45% infusion 75 mL/hr, Intravenous, CONTINUOUS, Starting on Thu04/22/11 at 1615, Until Thu04/23/11 at 1731 New Bag 04/23/2011 6:34 AM EST 75 mL/hr 75 mL/hr New Bag 04/22/2011 4:06 PM EST 75 mL/hr 75 mL/hr sodium chloride 0.9% 1,000 mL IV bolus Intravenous, ONCE, 1 dose, On [facility] 04/19/11 at 2030 Given 04/19/2011 8:30 PM EST sodium chloride 0.9% 1,000 mL IV bolus Intravenous, ONCE, 1 dose, On Thu04/20/11 at 0900 Given 04/20/2011 9:00 AM EST sodium chloride 0.9% 1,000 mL IV bolus Intravenous, ONCE, 1 dose, On Thu04/20/11 at 1030 Given 04/20/2011 10:30 AM EST sodium chloride 0.9% 500 mL IV bolus Intravenous, ONCE, 1 dose, On Thu04/21/11 at 1630 Given 04/21/2011 4:30 PM EST sodium chloride 0.9% infusion 150 mL/hr, Intravenous, CONTINUOUS, Starting on Thu04/19/11 at 2030, Until Thu04/20/11 at 0630 Rate/Dose Verify 04/19/2011 10:45 PM EST 150 mL/hr 150 mL/hr New Bag 04/19/2011 7:30 PM EST 150 mL/hr 150 mL/hr sodium chloride 0.9% infusion 10 mL/hr, Intravenous, CONTINUOUS, Starting on Thu04/19/11 at 2100, Until Thu04/22/11 at 1848 New Bag 04/19/2011 10:00 PM EST 10 mL/hr 10 mL/hr sodium chloride 0.9% infusion 10 mL/hr, Intravenous, CONTINUOUS, Starting on Thu04/19/11 at 2100, Until Thu04/22/11 at 1848 New Bag 04/19/2011 7:30 PM EST 10 mL/hr 10 mL/hr sodium chloride 0.9% infusion 10 mL/hr, Intravenous, CONTINUOUS, Starting on Thu04/20/11 at 1830, Until Thu04/22/11 at 1848 Rate/Dose Verify 04/20/2011 8:28 PM EST 10 mL/hr 10 mL/hr New Bag 04/20/2011 6:30 PM EST 10 mL/hr 10 mL/hr sodium chloride 0.9% infusion 50 mL/hr, Intravenous, CONTINUOUS, Starting on Thu04/25/11 at 1030, Until Thu04/25/11 at 1934, Endoscopy (Day of Procedure) New Bag 04/25/2011 10:30 AM EST 50 mL/hr 50 mL/hr succinylcholine (ANECTINE) injection 140 mg 140 mg, Intravenous, ONCE, 1 dose, On Thu04/21/11 at 0300, Routine Given by Other 04/21/2011 2:00 AM EST 140 mg vancomycin 1.25 g sodium in chloride 0.9% 250 mL 1,250 mg, Intravenous, at 125 mL/hr, ONCE, 1 dose, On 04/20/11 at 1700, This medication may have an associated drug lab level. Please check for lab orders, Routine Given 04/20/2011 5:00 PM EST 1,250 mg 125 mL/hr vancomycin 1.5 g in sodium chloride 0.9% 250 mL 1,500 mg (1.5 g), Intravenous, EVERY 12 HOURS, First dose on 04/21/11 at 0900, Until Discontinued, This medication may have an associated drug lab level. Please check for lab orders, STAT Given 04/22/2011 8:07 AM EST 1,500 mg Given 04/21/2011 9:00 PM EST 1,500 mg Given 04/21/2011 9:00 AM EST 1,500 mg vancomycin 2 g in sodium chloride 0.9% 500 mL 2,000 mg (2 g), Intravenous, ONCE, 1 dose, On 04/19/11 at 2145, This medication may have an associated drug lab level. Please check for lab orders, Routine Given 04/19/2011 11:54 PM EST 2,000 mg vasopressin (PITRESSIN) 50 Units in sodium chloride 0.9% 100 mL infusion 0.04 Units/min (rounded to 4.8 mL/hr), Intravenous, CONTINUOUS, Starting on 04/19/11 at 2030, Until Thu04/21/11 at 1147, For MAP >/= 65mmHg Rate/Dose Verify 04/20/2011 8:32 PM EST 0.04 Units/min 4.8 mL/hr New Bag 04/20/2011 4:15 PM EST 0.04 Units/min 4.8 mL/hr Rate/Dose Verify 04/20/2011 6:18 AM EST 0.04 Units/min 4.8 mL/hr zolpidem (AMBIEN) tablet 5-10 mg 5-10 mg, Oral, NIGHTLY PRN, Starting on [place] 04/24/11 at 2313, Until Thu04/29/11 at 1651, Sleep, Routine Given 04/28/2011 8:25 PM EST 10 mg Given 04/27/2011 8:35 PM EST 10 mg Given 04/26/2011 8:12 PM EST 5 mg documented in this encounter Active and Recently Administered Medications Times are shown in EST. Scheduled Medication Order 04/27/2011 04/28/2011 04/29/2011 aspirin chewable tablet 81 mg (CANCELED) 81 mg, Oral, DAILY, First dose on 04/20/11 at 1500, Until Discontinued, Routine 0800 (Given - Provider: Sarika Garcia RN) 0825 (Given - Provider: Lucero Freeman RN) atorvastatin (LIPITOR) tablet 20 mg (CANCELED) 20 mg, Oral, EVERY EVENING, First dose on 04/20/11 at 1700, Until Discontinued, Routine 1623 (Given - Provider: Sarika Garcia RN) 1624 (Given - Provider: Lucero Freeman RN) enoxaparin (LOVENOX) injection 40 mg (CANCELED) 40 mg, Subcutaneous, EVERY 24 HOURS SCHEDULED (Daily), First dose on 04/26/11 at 1300, Until Discontinued, Routine 0800 (Given - Provider: Sarika Garcia RN) 0826 (Given - Provider: Lucero Freeman RN) escitalopram (LEXAPRO) tablet 40 mg (CANCELED) 40 mg, Oral, DAILY, First dose on Tu04/22/11 at 1000, Until Discontinued, Routine 0800 (Given - Provider: Sarika Garcia RN) 0826 (Given - Provider: Lucero Freeman RN) 0900 (Given - Provider: Dionna Lowe RN) esomeprazole (NEXIUM) capsule 40 mg (CANCELED) 40 mg, Oral, 2 TIMES DAILY BEFORE MEALS, First dose (after last modification) on 04/26/11 at 0845, Until Discontinued, Routine 0634 (Given - Provider: Uma Healy RN)1623 (Given - Provider: Sarika Garcia RN) 0731 (Given - Provider: Lucero Freeman, ELSA)1624 (Given - Provider: Lucero Freeman, ELSA) 0648 (Given - Provider: Ang Thakkar RN) folic acid (FOLVITE) tablet 1,000 mcg (CANCELED) 1,000 mcg (1 mg), Oral, DAILY, First dose on 04/27/11 at 1400, Until Discontinued, Routine 1622 (Given - Provider: Sarika Garcia RN - Comment: med just arrived from pharmacy) 0826 (Given - Provider: Lucero Freeman RN) 0900 (Given - Provider: Dionna Lowe RN) furosemide (LASIX) tablet 40 mg (CANCELED) 40 mg, Oral, DAILY, First dose on Thu04/26/11 at 0900, Until Discontinued, Routine 0800 (Given - Provider: Sarika Garcia RN) furosemide (LASIX) tablet 40 mg (COMPLETED) 40 mg, Oral, ONCE, 1 dose, On Thu04/27/11 at 1030, For total of 80 mg today., Routine 1213 (Given - Provider: Sarika Garcia RN) furosemide (LASIX) tablet 80 mg (CANCELED) 80 mg, Oral, DAILY, First dose (after last modification) on Thu04/28/11 at 0900, Until Discontinued, Routine 0826 (Given - Provider: Lucero Freeman RN) insulin aspart (NOVOLOG) PEN injection 1-6 Units (CANCELED) 1-6 Units, Subcutaneous, EVERY 4 HOURS, First dose (after last modification) on Thu04/25/11 at 1200, Until Discontinued, CORRECTION BOLUS Custom doses BG 140 - 160 Give 1 units BG 161 - 200 Give 2 units BG 201 - 240 Give 4 units BG greater than 240, give 6 units every 2 hours until BG less than 240 (no more than three times) & call for new basal insulin orders , Routine 0000 (Not Given - Provider: Uma Healy RN - Reason: Order parameters not met)0400 (Not Given - Provider: Uma Healy RN - Reason: Order parameters not met)0751 (Given - Provider: Sarika Garcia RN)1219 (Given - Provider: Sarika Garcia RN)1744 (Given - Provider: Sarika Garcia RN)2000 (Not Given - Provider: Chase Arias RN - Reason: Order parameters not met - Comment: glucose 114) 0000 (Not Given - Provider: Chase Arias RN - Reason: Order parameters not met)0445 (Not Given - Provider: Clara Nails RN - Reason: Order parameters not met)0800 (Not Given - Provider: Lucero Freeman RN - Reason: Contraindicated)1117 (Given - Provider: Lucero Freeman RN)1359 (Given - Provider: Lucero Freeman RN)1624 (Given - Provider: Lucero Freeman RN)2023 (Given - Provider: Ang Thakkar RN) 0009 (Given - Provider: Ang Thakkar RN)0509 (Given - Provider: Ang Thakkar RN)0800 (Given - Provider: Dionna Lowe RN) insulin aspart (NOVOLOG) PEN injection 1-7 Units (CANCELED) 1-7 Units, Subcutaneous, 3 TIMES DAILY WITH MEALS, First dose on Thu04/23/11 at 1200, Until Discontinued, MEAL ASSOCIATED Give 1 unit for every 12 grams carbohydrate. Hold if not eating, Routine 0751 (Given - Provider: Sarika Garcia RN)1219 (Given - Provider: Sarika Garcia, ELSA)1745 (Given - Provider: Sarika Garcia RN) 0754 (Given - Provider: Lucero Freeman RN - Comment: Per patient request)1243 (Given - Provider: Lucero Freeman RN)1741 (Given - Provider: Lucero Freeman RN) 0800 (Given - Provider: Dionna Lowe RN) insulin aspart (NOVOLOG) VIAL injection 20-40 Units (CANCELED) 20-40 Units, Subcutaneous, DAILY, First dose on Thu04/29/11 at 0900, Until Discontinued, Patient to administer per own pump. Before discontinuing the pump, obtain an order for an administer subcutaneous basal insulin. 0900 (New Syringe/Cartridge - Provider: Dionna Lowe RN - Comment: by patient: Bolus 2.4 units) insulin glargine (LANTUS) VIAL injection 15 Units (CANCELED) 15 Units, Subcutaneous, DAILY, First dose (after last modification) on Thu04/28/11 at 1000, Until Discontinued, Routine 0933 (Given - Provider: Lucero Freeman RN) insulin glargine (LANTUS) VIAL injection 18 Units (CANCELED) 18 Units, Subcutaneous, DAILY, First dose (after last modification) on Thu04/24/11 at 1000, Until Discontinued, Routine 1130 (Given - Provider: Sarika Garcia RN) levothyroxine (SYNTHROID) injection 75 mcg (CANCELED) 75 mcg, Intravenous, EVERY MORNING, First dose (after last modification) on Thu04/22/11 at 0600, Until Discontinued, Administer over 1 Minutes 0636 (Given - Provider: Uma Healy, ELSA) levothyroxine (SYNTHROID) tablet 150 mcg (CANCELED) 150 mcg, Oral, EVERY MORNING, First dose on Thu04/28/11 at 0600, Until Discontinued, Routine 0600 (Not Given - Provider: Chase Arias RN - Reason: Medication not available)0753 (Given - Provider: Lucero Freeman RN - Comment: medication became available at this time) 0540 (Given - Provider: Ang Thakkar RN) potassium chloride SA (K-DUR;KLOR-CON) tablet 40 mEq (COMPLETED) 40 mEq, Oral, ONCE, 1 dose, On 04/27/11 at 1030, 20 mEq tablet may be dissolved in water for administration, Routine 1218 (Given - Provider: Sarika Garcia RN - Comment: given with meal) PRN Medication Order 04/27/2011 04/28/2011 04/29/2011 zolpidem (AMBIEN) tablet 5-10 mg (CANCELED) 5-10 mg, Oral, NIGHTLY PRN, Starting on Cristina 04/24/11 at 2313, Until Thu04/29/11 at 1651, Sleep, Routine 2034 (Given - Provider: Chase Arias RN) 2024 (Given - Provider: Ang Thakkar RN) documented in this encounter Care Teams Heat Treat Supervisor Relationship Specialty Start Date End Date Elly London APRN PCP - General 02/26/10 05/20/11 documented as of this encounter
--- OUTSIDE RECORDS SUMMARY | 2024-03-07 19:07 | XMS_ITS | Encounter Summary ---
Author Organization [facility] Address [address] [facility] [address] Care Team Providers Care District Traffic Chief Name Role Phone Dee Slade RONNIE Primary Care Provider [phone] Encounter Details Date Type Department Care Team (Latest Contact Info) Description 03/05/2011 1:48 PM EST - 03/05/2011 11:59 PM [facility] Hospital Encounter XRay at [address] [place] [address] Psoriatic arthritis Social History Tobacco Use Types [...] tablet by mouth daily. Reported on 05/26/2016 melatonin 3 mg Tab Take 9 mg by mouth nightly. 03/06/2017 methotrexate 2.5 mg tablet Take 8 tablets by mouth once a week. 32 tablet 2 03/05/2011 04/29/2011 ESCITALOPRAM OXALATE (LEXAPRO ORAL) Take 40 mg by mouth daily. 10/25/2013 insulin lispro (HUMALOG) 100 unit/mL injection Inject subcutaneously. 5-16 units 3 times daily and as needed 11/14/2013 insulin glargine (LANTUS) 100 unit/mL vial injection Inject 25 Units subcutaneously. Every morning as needed/pump failure 04/29/2011 methylphenidate (RITALIN) 5 mg tablet Take 15 [...] 1 Tablet(s), PO, Once daily 06/17/2010 01/12/2013 lansoprazole (PREVACID) 30 mg capsule 30mg, PO, QD 06/17/2010 04/29/2011 Flaxseed Oil 1,000 mg Cap 06/17/2010 05/19/2011 Pramlintide (SYMLINPEN 60) 1,500 mcg/1.5 mL injection 60 micrograms, SQ, Three times daily 06/17/2010 04/29/2011 predniSONE (DELTASONE) 5 mg tablet 15 MG = 3 Tablet(s) PO Once daily 06/17/2010 04/29/2011 lisinopril (PRINIVIL;ZESTRIL) 20 mg tablet 20 MG = 1 Tablet(s), PO, Once daily 06/17/2010 04/29/2011 folic acid (FOLVITE) 1 mg tablet 1 MG = 1 Tablet(s), PO, Once daily 06/17/2010 02/23/2013 documented as of this encounter Plan of Treatment Upcoming Encounters Date Type Department Care Team (Late st Contact Info) Description 05/17/2024 2:30 PM EST Office [place] [phone] [facility] [place] [address] 04/06/2049 9:00 AM EST Hospital [place] [phone] [facility] [place] [address] documented as of this encounter Procedures Procedure Name Priority Date/Time Associated Diagnosis Comments XR KNEE AP AND LAT BILAT Routine 03/05/2011 2:06 PM EST Psoriatic arthritis documented in this encounter Results * XR knee bilateral1 or 2 view (03/05/2011 2:06 PM EST) Anatomical Region Laterality Modality Knee Bilateral Radiographic Michelle ging 03/05/2011 2:06 PM EST Impressions 03/05/2011 4:04 PM EST IMPRESSION: ?? Osteoarthritis of both knees with narrowed medial joint spaces. ?? Bilateral patella tawnya. Narrative 03/05/2011 4:04 PM EST STANDING AP AND LATERAL VIEWS OF BOTH KNEES: ?? HISTORY: ??Bilateral knee pain. ?? COMPARISON STUDY: ??None. ?? FINDINGS: ??Narrowed medial joint space bilaterally with small osteophyte formation representing osteoarthritis. ??Both patellae are high riding. ??No knee effusion. ?? Procedure Note Shandra Alvarez MD - 03/05/2011 STANDING AP AND LATERAL VIEWS OF BOTH KNEES: HISTORY: Bilateral knee pain. COMPARISON STUDY: None. FINDINGS: Narrowed medial joint space bilaterally with small osteophyte formation representing osteoarthritis. Both patellae are high riding. Noknee effusion. IMPRESSION IMPRESSION: Osteoarthritis of both knees with narrowed medial joint spaces. Bilateral patella tawnya. Darryl Burgos MD IMG DX ORDERABLES documented in this encounter Visit Diagnoses Diagnosis Psoriatic arthritis Psoriatic arthropathy documented in this encounter Care Teams District Traffic Chief Relationship Specialty Start Date End Date Dee Slade APRN PCP - General 02/26/10 05/20/11 documented as of this encounter
--- OUTSIDE RECORDS SUMMARY | 2024-03-07 19:07 | XMS_ITS | Encounter Summary ---
Author Organization [facility] [place] [address] Care Team Providers Care Ceramic Restorer Name Role Phone Dee Slade APRN Primary Care Provider [phone] Encounter Details Date Type Department Care Team (Late st Contact Info) Description 12/10/2010 Abstract [place] [phone] Shirley Hernandez, RN Social History Tobacco Use Types Packs/Day Years Used Date Smoking Tobacco: Never Assessed Sex and Gender Information Value Date Recorded Sex Assigned at Not on file Gender Identity Not on file Sexual Orientation Not on file documented as of this encounter Plan of Treatment Upcoming Encounters Date Type Department Care Team (Late st Contact Info) Description 05/17/2024 2:30 PM EST Office [place] [phone] Alcides Bonilla MD [facility] [place] [address] 04/06/2049 9:00 AM EST Hospital Encounter [place] [phone] Harry Guerrero MD [facility] [place] [address] documented as of this encounter Visit Diagnoses Not on filedocumented in this encounter Care Teams Ceramic Restorer Relationship Specialty Start Date End Date Dee Slade APRN PCP - General 02/26/10 05/20/11 documented as of this encounter
--- OUTSIDE RECORDS SUMMARY | 2024-03-07 19:07 | XMS_ITS | Encounter Summary ---
Author Organization [facility] [place] [address] Care Team Providers Care Hardware Assembler Name Role Phone Elly London APRN Primary Care Provider [phone] Encounter Details Date Type Department Care Team (Late st Contact Info) Description 04/25/2011 10:30 AM EST - 04/25/2011 11:00 AM EST [place] [address] Devin Bob MD [facility] [place] [address] UPPER GI ENDOSCOPY Social History Tobacco Use Types Packs/Day Years [...] Discharge Instructions * Discharge Instructions* Odalis Ford, FRAUD ANALYST - 04/29/2011 10:20 AM EST Roxann Baxter [id number] 1955 Diabetes Care Instructions Follow up with: Melisa Sales on 05/06/2011 at 11AM Shipping Point Inspector area 5C Dr. Wing on May 07 at 3:30PM Shipping Point Inspector area 5C Subcutaneous Insulin Pump Instructions Basal [...] 300 twice in one day. Odalis Ford [facility] Section of Endocrinology Diabetes Management * [...] d/c with services arranged: Pt in agreement. [facility]. PHONE: [phone] FAX: [phone] Services ordered: RN, PT, OT Referral made via eDischarge Transportation: 04/29/11 family Kat PATE, RN, CRC pager [phone] * Haseeb Virk MD - 04/29/2011 2:23 [...] spent >30 minutes (Day of Discharge Code 25893) involved in the final examination of the [...] with pt. VNA orders written and pended. [facility]. PHONE: [phone] FAX: [phone] Services ordered: RN, PT, OT including diabetes education. Referral made via eDischarge. Kat Sun. Denys PATE, RN, CRC pager [phone] * Wilber Ocampo Ashley, YIELD LOSS INSPECTOR - 04/29/2011 12:10 PM EST Physical Therapy Progress Note Patient profile: Patient is a 55 y[address] of Dr[address] Virk,Haseeb Chung MD, admitted on 04/19/2011 for DKA and [...] states that she is independent. Confirm by BUS GIRL. Transfers: sit<>stand from the cardiac chair to [...] to be determine by home PT Pager: [phone] WILBER OCAMPO PTA, 04/29/2011 Physical Therapy Rehabilitation Department * Odalis Ford APRN - 04/29/2011 10:09 AM EST Roxann Baxter 1955 [id number] ELLY LONDON APRN Follow Up Diabetes Consult [...] 04/29/11 0426 04/29/11 0213 04/29/11 0008 04/28/11 0788504/28/11 1605 04/28/11 1355 04/28/11 1113 04/28/11 0935 [...] for SC insulin by either myself pager [phone] (if during day) or by laborer hide house Lantus 18 units daily (at whatever time [...] use Lantus and Novolog. Odalis Ford APRN [facility] Endocrinology Diabetes Management [phone] Pager [phone] This case was discussed with Dr. Shreyas [...] Roseanne Webber - 04/28/2011 7:00 PM EST Hr Leader Encounter Note Patient Name: Roxann Baxter : [id number] MR#: [id number] Admit Date: 04/19/2011 6:39 PM Hospital Day 9 days Narrative: I had an initial visit with Ms. 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 She acknowledged the severity of illness that brought her here, and also her strong desire to return home to family and her dog. Meanwhile she is grateful for the strong support of her pentecostal, which is supplying meals to help her and daughter. Her resource management specialist has also been in to see her. Ms. Baxter spoke of finding meaning and comfort in pentecostal, in contrast to the discomfort she had developed with the tradition in which she had been raised. Assessment: Pt is coping well with this illness, though was deciding to defer another test which she felt wouldfurther debilitate her just as she is beginning to feel better and gain strength. Alivia and pentecostal are very significant sources of support. Intervention and Outcome: Pastoral presence and supportive conversation to build relationship. Follow-up: I will visit again tomorrow to follow up. Time in Direct Care: 25 minutes. ROSEANNE WEBBER 04/28/2011 * Kat Mcfarlane RN - 04/28/2011 5:04 PM EST Office of Care Management Progress Note CRC furnished pt with information regarding diabetes education sessions at [facility] in [place], [place]. Pt very receptive. Kat PATE, RN, CRC pager [phone] ER * Kat Mcfarlane RN - 04/28/2011 4:16 [...] attending a diabetes clinic or classes in [facility] where she lives. Plan: referrals in to three SNF/Swing facilities placed 04/25/11. Pt will continue to work with PT to determine pt's disposition at time of d/c. Kat Sun. Denys PATE, RN, CRC pager [phone] * Wilber Ocampo, YIELD LOSS INSPECTOR - 04/28/2011 2:55 PM EST Physical Therapy [...] to talk to her CRC and or long term care social worker. RN notified of Pt status [...] activity tolerance. Occupational Therapy consult recommended Pager: [phone] WILBER OCAMPO PTA, 04/28/2011 Physical Therapy Rehabilitation Department * Odalis Ford APRN - 04/28/2011 1:47 PM EST Roxann Baxter 1955 [id number] ELLY LONDON APRN Follow Up Diabetes Consult [...] 04/28/11 0733 04/28/11 0429 04/27/11 2345 04/27/11201004/27/11 66263 1137 04/27/11 0748 04/27/11 0347 04/26/11 2353 [...] for SC insulin by either myself pager [phone] (if during day) or by laborer hide house Lantus 18 units daily (at whatever time [...] nursing to use Lantus and Novolog. Odalis Frod APRN [facility] Endocrinology Diabetes Management [phone] Pager [phone] This case was discussed with Dr. Shreyas [...] CXR 04/25/11 IMPRESSION: Resolved pulmonary airspace opacity, riwbe-ow-islthbqo bilateral effusion seen posteriorly. 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 She was transferred to the [facility] ICU in shock requiring mutliple pressors (dopamine, [...] CXR 04/25/11 IMPRESSION: Resolved pulmonary airspace opacity, zurdm-wj-khueqqfr bilateral effusion seen posteriorly. 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 female with long-term DM1, poorly controlled with last HbA1C of 9% who presented to [facility] on 04/20/2011 obtunded and not responsive and diagnosed with DKA. She was transferred to the [facility] ICU in shock requiring mutliple pressors (dopamine, [...] CXR 04/25/11 IMPRESSION: Resolved pulmonary airspace opacity, cuuph-tl-qjgcwzms bilateral effusion seen posteriorly. 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 female with long-term DM1, poorly controlled with last HbA1C of 9% who presented to [facility] on 04/20/2011 obtunded and not responsive and diagnosed with DKA. She was transferred to the [facility] ICU in shock requiring mutliple pressors (dopamine, [...] with PT HASEEB VIRK MD 04/26/2011 * Felix Guzman - 04/25/2011 7:21 PM EST Inpatient Hospital [...] CXR 04/25/11 IMPRESSION: Resolved pulmonary airspace opacity, hfajc-zm-twqqrvwi bilateral effusion seen posteriorly. 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 female with long-term DM1, poorly controlled with last HbA1C of 9% who presented to [facility] on 04/20/2011 obtunded and not responsive and diagnosed with DKA. She was transferred to the [facility] ICU in shock requiring mutliple pressors (dopamine, [...] PT FELIX GUZMAN MD 04/25/2011 * Odalis Ford APRN - 04/25/2011 5:41 PM EST Roxann Baxter 1955 [id number] Follow Up Diabetes Consult Patient Interview Mrs. [...] 04/25/11 0800 04/25/11 0429 04/24/11 2331 04/24/11 25468 1705 04/24/11 1445 04/24/11 1133 04/24/11 0735 04/24/11 0403 ??? POCGLU 184 176 152 163 75 103 212* 121 145 161 113 177 ASSESSMENT ?? Reviewed discharge recommendations as noted below specifically highlighted sick day rules ?? Over the weekend for further assistance with BG management or if BG <60 or >300 mg/dL please contact the batch plant supervisor enterprise application analyst. Dr. Barrera and Dr. Moore, who will [...] correction at moderate correction scale Roxann Baxter [id number] 1955 Diabetes Care Instructions Instructions for Lantus [...] 300 twice in one day. Odalis JIMENEZ [facility] Section of Endocrinology Diabetes Management Odalis Ford APRN [facility] Endocrinology Diabetes Management [phone] Pager [phone] This case was discussed with Dr. Shreyas [...] activity tolerance. Occupational Therapy consult recommended Pager: [phone] PURVI ORTIZ, PT, 04/25/2011 Physical Therapy Rehabilitation [...] with IV Zofran and checked her Blood kuupy=141. RN strongly encouraged pt to get up [...] activity tolerance. Occupational Therapy consult recommended Pager: [phone] PURVI ORTIZ, PT, 04/24/2011 Physical Therapy Rehabilitation Department * Felix Guzman D - 04/24/2011 12:23 PM EST Inpatient Hospital [...] Baxter is a 55 y.o. female with long-term DM1, poorly controlled with last HbA1C of 9% who presented to [facility] on 04/20/2011 obtunded and not responsive and diagnosed with DKA. She was transferred to the [facility] ICU in shock requiring mutliple pressors (dopamine, [...] Roseanne Webber - 04/24/2011 11:37 AM EST Hr Leader Encounter Note Patient Name: Roxann Baxter : [id number] MR#: [id number] Admit Date: 04/19/2011 6:39 PM Hospital Day 5 days Narrative: I have tried several times to visit this week; pt has been sleeping. Assessment: n/a Intervention and Outcome: n/a Follow-up: I will try again in four days. Time in Direct Care: 0 minutes. ROSEANNE WEBBER 04/24/2011 * Odalis Ford APRN - 04/24/2011 8:59 AM EST Roxann Baxter [id number] Miraomntes PCP Follow Up Diabetes Consult Patient Interview [...] 04/23/11 2007 04/23/11 1636 04/23/11 1500 04/23/11 55860 1223 04/23/11 1124 04/23/11 1022 04/23/11 0917 [...] at moderate correction scale Odalis Ford APRN [facility] Endocrinology Diabetes Management [phone] Pager [phone] This case was discussed with Dr. Shreyas [...] Baxter is a 55 y.o. female with long-term DM1, poorly controlled with last HbA1C of 9% who presented to [facility] on 04/20/2011 obtunded and not responsive and diagnosed with DKA. She was transferred to the [facility] ICU in shock requiring mutliple pressors (dopamine, [...] RN - 04/23/2011 3:57 PM EST Clinical Smash Hand Transfer Note: Interviewed 04/25/11 S:states that she is feeling better Met with patient & Eyal Garner to introduce role of CRC on Medicine unit. 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 Kat PATE, RN, CRC pager [phone] * Coleman Hernandez, PT - 04/23/2011 1:46 PM EST Physical Therapy Progress Note Patient profile: Pt. is a 55 y.o. y.o. female admitted on 04/19/2011 by Felix Lee MD for DKA. PMH: Psoriatic arthritis Psoriasis Diabetes mellitus I, on insulin pump, poorly controlled Hypothyroidism GERD Hypertension Hyperlipidemia Asthma Severe iron deficiency Social History: Patient lives with their spouse in [place], [place]. Has an 11 year old daughter [...] training. Total timed interventions: 26 minutes COLEMAN HERNANDEZ PT 04/23/2011 Pager: [phone] Physical Therapy Rehabilitation Department * Odalis Ford APRN - 04/23/2011 1:40 PM EST Roxann Baxter [address] [id number] Nayla Miramontes Follow Up Diabetes Consult Patient Interview Mrs. Strole was more awake this morning on assessment [...] 04/23/11 1022 04/23/11 0917 04/23/11 0818 04/23/11 39206 0609 04/23/11 0509 04/23/11 0405 04/23/11 0248 [...] at moderate correction scale Odalis Ford APRN [facility] Endocrinology Diabetes Management [phone] Pager [phone] This case was discussed with Dr. Shreyas [...] breads and pasta occasionally, and understands her ynzufjrghxvn-yi-caqzcmk ratio. Patient denied need for diet education [...] unless consulted in the interim. Arline Robles recruitment internship * Trice Spivey, PT - 04/22/2011 8:51 PM EST Physical Therapy Evaluation Patient profile: Pt. is a 55 y.o. y.o. female admitted on 04/19/2011 by Felix Lee MD for DKA. PMH: Psoriatic arthritis Psoriasis Diabetes mellitus I, on insulin pump, poorly controlled Hypothyroidism GERD Hypertension Hyperlipidemia Asthma Severe iron deficiency Social History: Patient lives with their spouse in [place], [place] Stairs: patient stated she has couple [...] 0 minutes TRICE SPIVEY, PT 04/22/2011 Pager: [phone] Physical Therapy Rehabilitation Department * Winifred Bey RN - 04/22/2011 7:48 PM EST Accepted [...] and insulin infusion rate relayed to accepting RN, Tamanna. Patient given call light and bed locked. Informed staff that patient had arrived. * Odalis Ford APRN - 04/22/2011 12:51 PM EST Roxann Baxter [address] [id number] Nayla Miramontes Follow Up Diabetes [...] her bedside was a mira from her parish who was helpful in calming her and [...] protocol Recent Glucose Levels Recent Labs Basename 1/17/12 1153 04/22/11 1027 04/22/11 0849 04/22/11 0743 04/22/11 0615 04/22/11 0506 04/22/11 29130 0311 04/22/11 0202 04/22/11 0103 04/21/11 2339 [...] gtt as per protocol Odalis Ford APRN [facility] Endocrinology Diabetes Management [phone] Pager [phone] This case was discussed with Dr. Shreyas Pollack. 20 min time spent in patient care with 15 counseling, seeing patient, changing orders and discussion with the patient and the primary team as well as nursing. * Purvi Lucero RN - 04/22/2011 10:45 AM EST Office of Care Management (OCM) / Clinical Smash Hand (CRC) Initial Assessment Reviewed record in eDH. [...] ISSUES: THIERRY Colin CURRENT HOME/COMMUNITY SERVICES/EQUIPMENT: Unknown [facility] REFERRAL: [facility] assistance available if needs arise. PRIMARY CARE PHYSICIAN: ELLY LONDON APRN @ PCPaddr2@ [phone] POTENTIAL DISCHARGE NEEDS: Anticipate pt will go home with services at discharge. REHAB TEAM CONSULTS: Will need rehab med consults for strength assessment, progression of activity,assistance with ADL's and discharge planning. PLAN: Will continue to monitor progress, follow for continuity of care and assist with discharge planning while on CCS/ISCU status. Purvi Lucero RN OCN Clinical Smash Hand Office of Care Management pager [phone] * Mau Aviles PA - 04/22/2011 9:49 AM EST CCS Daily Progress Note ICU Day #: 3 Team: Danilo, beeper # [id number] Patient Description: 55 yo poorly controled Type I DM on insulin pump at home transferred from [facility] with severe DKA on 3 pressors requiring [...] sedation being weaned and patient bit through pilot supervisor balloon requiring exchange over cook catheter and [...] 1800) ??? sodium chloride 0.9% 10 mL/hr (04/20/11 202) ??? dextrose 5% and sodium chloride 0.45% 75 mL/hr (04/22/11 0448) ??? DISCONTD: insulin regular drip 2.5 Units/hr [...] seems to be clearer than yesterday Tubes/lines/drains: ANA (placed 04/19/11), nicholson Labs: Lab Results Component [...] who agrees with plan as outlined above. Siria Klein MD - 04/22/2011 7:35 AM EST [...] 55 yo female with a PMHx of long-term DM-1 poorly controlled (last A1c was 9% in January), Giron's esophagus, and gastric ulcer with perforation who presented to [facility] on 04/20/2011 obtunded and not responsive. Her states that she has had problems with DKA in the past requiring hospitalization and her labs at [facility] were consistent with DKA. She was transferred to the [facility] ICU (on dopamine, norepinephrine, and vasopressin) for [...] spent on the unit excluding procedures: AMISH FULLRE MD 04/22/2011 * Joellen Kingston PT - 04/21/2011 12:58 PM EST PT referral received. Thank you. Pt nsg, pt is awaiting extubation and now is not a good time for PT. Will check in either later today or tomorrow. 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 Her states that she has had problems with DKA in the past requiring hospitalization and her labs at [facility] were consistent with DKA. She was transferred to the [facility] ICU (on dopamine, norepinephrine, and vasopressin) for [...] pulses I/O last 3 completed shifts: In: 72733 [P.O.:10; I.V.:65242; Blood:350; NG/GT:40; IV Piggyback:377] Out: 4405 [Urine:4105; [...] them as documented. Devin Bob MD, MS Page Technicianhole digger operator Section of Gastroenterology and Hepatology * Tania Almendarez, ROOM SERVICE ASSOCIATE - 04/21/2011 5:17 AM EST Respiratory Care [...] restless, and consequently bit through her ETT pilot supervisor line. Attempted to repair pilot supervisor line but the tear was too deep in the patients mouth to repair so the ETT was subsequently replaced without incident, #7.5ETT, 23 cm @ teeth. Patient sedated and placed on full vent support. Left on SIMV/PS RR 12, VT 500ml, PEEP 5cmH20, PS 6 cmH20, Fio2 50%. ETT pulled back 1cm to 22cm @teeth per CXR. We will continue to monitor. 04/20/11193104/20/11201304/20/112029 Ventilator Settings Ventilator Mode SIMV Vol + [...] 04/21/2011 2:18 AM EST Pt bit through pilot supervisor balloon on ET tube. Unable the fix, ET tube change same size 7.5 23 at teeth. Pt placed on SIMV/PS 500 X 12 Peep 5 PS 6. * Maura Salazar - 04/20/2011 7:02 PM EST Jacques Encounter Note Patient Name: Roxann Baxter : [id number] MR#: [id number] Admit Date: 04/19/2011 6:39 PM Hospital Day 1 day Narrative: Visited patient and family at the request of the patient's local beam dyer operator Assessment: Patient asleep and family coping [...] vent suctioning every 3 hours brandon secretions. * Lexi Read MD - 04/20/2011 11:17 AM EST [facility] CRITICAL CARE SERVICE (CCS) ATTENDING DAILY PROGRESS [...] with methotrexate 20 mg weekly, followed by [facility] rheumatology Type 1 diabetes mellitus - on [...] in discussion with consultants * Tania Almendarez, ROOM SERVICE ASSOCIATE - 04/20/2011 4:18 AM EST Respiratory Care [...] vent settings. We will continue to monitor. 04/19/11204504/20/11 0327 Ventilator Settings Ventilator Mode -- SIMV [...] Once Continuous Infusions: ??? NORepinephrine 15 mcg/min (04/20/11 0618) ??? lactated ringers Stopped (04/20/11 0502) ??? dextrose 5% and sodium chloride 0.45% with potassium chloride 20 mEq 150 mL/hr (01644) ??? esomeprazole (NEXIUM) infusion 8 mg/hr (04/20/11 0600) ??? vasopressin (PITRESSIN) infusion (septic shock) 0.04 Units/min (04/20/11617) ??? fentaNYL 100 mcg/hr (04/20/11617) ??? insulin regular drip 10 Units/hr (04/20/11617) ??? sodium chloride 0.9% 10 mL/hr (04/19/110) ??? sodium chloride 0.9% 10 mL/hr (04/19/11 193) ??? NORepinephrine 20 mcg/min (04/19/112099) ??? midazolam 3 mg/hr (04/20/11617) ??? DISCONTD: sodium chloride 0.9% Stopped (04/20/11644) ??? DISCONTD: NORepinephrine 30 mcg/min (04/20/11 022) PRN Meds:.albuterol, dextrose 50%, insulin regular human, midazolam, fentaNYL (PF) Allergies: Allergies Allergen Reactions ??? Codeine Phos ??? Propoxyphene N-acetaminophen Social History: Per prior notes: Ms. Baxter is . 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 [...] Trend: Her urine output was starting to pick up man upon arrival. GEN: Comatose female, endotracheally intubated [...] Resolved ID: 55 y.o. Female presents to [facility] with un-responsive and hypotensive concerning for DKA [...] with DKA. She was transferred to the [facility] ICU (on dopamine, levophed, and vasopressin) for [...] , , , Last Rate: 112.5 mL/hr (04/19/110), Last Dose: 30 mcg/min at 04/19/111929; esomeprazole (NEXIUM)80 mg in sodium chloride 0.9% 160 mL infusion, 8 mg/hr, Intravenous, Continuous, Jason Lau MD; esomeprazole (NEXIUM) injection 80 mg, 80 mg, Intravenous, Once, Jason Lau MD, Last Dose: 80 mg at 04/19/112029 vasopressin (PITRESSIN) 50 Units in sodium chloride [...] transported on three pressors (levophed, Dopa and SCREW DOWN). We have been able to wean off Dopa. - Levophed gtt - SCREW DOWN gtt - Wean as tolerated - Aggressive [...] central and arterial line Admit to ICU Vish LAU MD 04/19/2011 documented in this encounter Procedure Notes * Provider, Scanning - 04/30/2011 2:15 PM ESTAssociated Order(s): SCAN DOC: LAB * Joel Morocho - 04/30/2011 2:15 PM ESTAssociated Order(s): SCAN DOC: RADIOLOGIC TECHNOLOGIST CHIEF * Cristy Plaza MD - 04/21/2011 2:32 AM ESTAssociated Order(s): INTUBATION Intubation Procedure Note Reason for Intubation: ?? Replace endotracheal tube: pilot supervisor balloon damage by teeth, 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 Location of Procedure: ICU South. Risks and Benefits: The risks and benefits [...] to the planned procedure. Hand Hygiene: The gunnery/ordnance officer did perform hand hygiene prior to arterial [...] entirety of this uncomplicated procedure. * Mau Aviles PA - 04/19/2011 7:35 PM ESTAssociated Order(s): CENTRAL LINE Procedure(s): CENTRAL LINE Pre-Procedure Diagnose(s): Shock Post-Procedure Diagnose(s): Shock Central Line Placement Procedure Note Indication for Central Line Insertion: New Catheter: volume replacement, access, monitoring, medication administration and sepsis This insertion was not to replace a malfunctioning central line. This insertion was not due to a suspected central line associated infection. Location of Procedure: ICU South Risks and Benefits: The risks and benefits [...] to the planned procedure. Hand Hygiene: The gunnery/ordnance officer did perform hand hygiene prior to central [...] Notes * Miscellaneous - Provider, Scanning - 04/30/2011 2:15 PM EST * Miscellaneous - Provider, Scanning - 04/30/2011 2:15 PM EST * Discharge [...] with DKA. She was transferred to the [facility] ICU (on dopamine, levophed, and vasopressin) for resuscitation. In the ICU an NG was placed that drained black coffee ground emesis. Of note, pt had a gastric ulcer with perforation in the past. Her says that this occurred many years ago and that she has been taking the prevacid regularly. Hospital Course: (from [facility]) Initially admitted to the ICU from [facility] with severe DKA on 3 pressors requiring [...] daily. CXR 04/25/11 Resolved pulmonary airspace opacity, yjpde-hh-zzzbotax bilateral effusion seen posteriorly. Pending Studies and [...] Med - BD Logic teststrips as directed, Mis, eight times daily Qty: Refills: Comments: Approved for 1 yr by maribell-mercy 01/08/07 !! [facility] Free Text Med - BD Logic lancets as directed, [facility], eight times daily Qty: Refills: levothyroxine (SYNTHROID) [...] and Rheumatology appointments. General Instructions Roxann Baxter [id number] 1955 Diabetes Care Instructions Follow up with: Melisa Sales on 05/06/2011 at 11AM Shipping Point Inspector area 5C Dr. Wing on May 07 at 3:30PM Shipping Point Inspector area 5C Subcutaneous Insulin Pump Instructions Basal [...] 300 twice in one day. Odalis Ford [facility] Section of Endocrinology Diabetes Management Future Appointments and Orders Future Appointments: Provider: Department: Dept Phone: Center: 05/05/2011 10:05 AM Ann Fleming OD [facility] Ophthalmology [phone] N[facility] Joint Appt Tech One Ophthalmology [facility] [phone] N[facility] 05/06/2011 11:00 AM Melisa Sales RN [facility] Endocrinology [phone] N[facility] 05/07/2011 3:30 PM Iron Wing MD [facility] Endocrinology [phone] N[facility] CL[facility] 05/19/2011 3:15 PM Darryl Burgos MD [facility] [phone] N[facility] Joint Appt Rheumatology Nurse Res [facility] [phone] N[facility]RO CLIN Future Orders Please Complete By Expires Referral to Home Health [[id number] CPT(R)] Process Instructions: Scheduling Instructions: Comments: DOCUMENTATION FOR VNA SERVICES (INCLUDING THOSE PATIENTS WITH MEDICARE COVERAGE REQUIRING HOME VNA SERVICES AND/OR HOSPICE SERVICES) PATIENT'S LOCATION: Roxann Baxter [address] [place] [address] [phone] (home) Chef De Froid's Name: self & In discussion with the attending physician, it is certified that this patient is under their care and that they, or a nurse practitioner, clinical nurse specialist or physician's orthopedic assistant who is working directly with them, [...] Nursing( x) PT(x ) OT (x ) YOUTH CAREER SPECIALIST ( ) FIRE POT OPERATOR ( ) APPARATUS LINEMAN ( ) Hospice ( ) Specific orders: [...] provide for any other further needs. All VNA agencies which cover the area of patient's residence have been reviewed, either verbally constantine writing, and patient/family have chosen the home health care agency as follows for home services: HOME HEALTH CARE AGENCY: [facility]. PHONE: [phone] FAX: [phone] Please note that any additional orders needs or changes will need to be obtained from this patient's PCP: ELLY LONDON APRN Questions: Responses: Agency name and contact information Vladimir COLLIER Patient location post discharge home What services are requested Registered Nurse Physical Therapy Occupational Therapy Start date 04/29/2011 Responsible MD post discharge contact info PCP Provider Contact Information: Haseeb Virk MD [phone] For questions regarding this document or issues relating to this hospitalization on the Medical Service, please contact your inpatient physician through the [facility] Cordwainer . Issues afterhours and on weekends will [...] Bob MD - 04/25/2011 10:11 PM EST [facility] Operative Note Patient Name: Roxann Baxter : [id number] MR#: [id number] Case Date: 04/25/2011 Surgeon: Surgeon(s) and Role: * DEVIN BOB MD - Primary Preoperative diagnosis: coffee ground Postoperative diagnosis: * No post-op diagnosis entered * Procedure(s): UPPER GI ENDOSCOPY Full procedure note is documented under the Procedure section of [facility]. * Plan of Care - Arline Palencia RN - 04/25/2011 6:00 AM EST Problem: [...] to monitor. * Plan of Care - Arline Palencia RN - 04/24/2011 5:20 AM EST Problem: [...] distress noted. * Consult Note - Elenita Uribe PharmD - 04/22/2011 1:20 PM EST Clinical Pharmacist Note-Vanc Roxann Baxter [id number] 1955 Roxann Baxter is a 55 y.o. [...] have. Alternately, during off-hours you may call [phone] to contact a pharmacist. ELENITA URIBE PHARMD Pager [phone] * Plan of Care - Gayle Coon [...] protocol maintained. * Plan of Care - Nitza Bey RN - 04/22/2011 5:44 AM EST 0500. Patient awaken screaming for help because she cannot see. Her eyes are closed and she is agitated and restless. Encouraged patient to open her eyes which are still swollen and she does but states still that cannot see. Pt sitting up in bed pulling off oxygen. staff writer 2:1 to maintain safety. R epositioned patient. Pt sleeping at 5:20. * Plan of Care - Nitza Bey RN - 04/22/2011 1:46 AM EST [...] close monitioing * Consult Note - Odalis Ford APRN - 04/21/2011 3:48 PM EST Roxann Baxter 1955 [id number] Inpatient Endocrinology Glucose Management Consult Date of Consultation: 04/21/2011 Place of Consultation: ICU Consult Requested by: Dr. Fuller, Critical Care Reason for Consultation: Roxann Baxter is a 55 y.o. female who was admitted on 04/19/2011 for the diagnosis of DKA and shock. 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 Diabetes History: Roxann Baxter is a Type 1 Diabetic followed from [phone] by outpatient endocrinology at [facility] ( & Melisa Sales NETWORK INTELLIGENCE ANALYST, CDE). Presented to outside hospital on 04/20/2011 unresponsive andobtunded, hyperglycemic, hypotensive and required fluid boluses (reported +10 liters) vasopressors ( dopamine, norepinephrine, and vasopressin) and intubation. On arrival to [facility] her Anion gap = 29, BOHB >8. [...] PCP, as noted in EDH ELLY LONDON, FRAUD ANALYST [phone], however out on maternity leave and referred to covering providers at [facility], , left message with nurse. London's office returned voicemail and stated that they do not have any records for Mrs. Batxer. Inactive at Dr. Daysi Qureshi's office, changed to [facility] 03/04/2010 ([phone]) Dr. Nayla Miramontes has been following Mrs. [...] titrate to 60 mcg with meals FAX [phone] Miramontes's office Current outpatient diabetes regimen: Medications: Humalog via insulin pump - not available to confirm current rate Symlin 120 mcg TID with meals Monitoring: unknown Most recent HA1c was done on 04/21/2011 and was 9.3 %, suggesting an average glucose of 220 mg/dL for the past 6 weeks. 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 Shreyas Pollack. Odalis Ford APRN [facility] Endocrinology Diabetes Management [phone] Pager [phone] min time spent in patient care with 30 counseling, seeing patient, changing orders and discussion with the patient and the primary team as well as nursing. * Consult Note - Elenita Uribe, PharmD - 04/21/2011 9:40 AM EST Clinical Pharmacist Note-Vanc Roxann Baxter [id number] 1955 Roxann Baxter is a 55 y.o. [...] have. Alternately, during off-hours you may call [phone] to contact a pharmacist. ELENITA URIBE PHARMD Pager [phone] * Plan of Care - Nitza Bey RN - 04/21/2011 6:09 AM EST Problem: Pain, Acute (Adult, Obstetric) Goal: Acute Pain: Acceptable Pain Control/Comfort Level - Pain, Acute (Adult, Obstetric) Outcome: Present (see interventions, notes) Nonverbal scoring for pain assessment secondary to patient intubated and inability to communicate at this time * Plan of Care - Nitza Bey RN - 04/21/2011 6:08 AM EST Problem: Trauma/Injury Risk (Adult, Obstetric) Goal: Trauma/Injury Risk: Absence of Trauma/Injury/Falls Outcome: Present (see interventions, notes) Pt intubated and sedated with bilateral wrist restraints in place. Intermittent restlessness and attempts to pull at femoral arterial line and ett. Close nursing supervision 1;1 required when patientis aroused. * Consult Note - Rosi Martin PharmD - 04/20/2011 3:31 PM EST Clinical Pharmacist Note-Vanc Roxann Baxter [id number] 1955 Roxann Baxter is a 55 y.o. [...] have. Alternately, during off-hours you may call [phone] to contact a pharmacist. Pharmacists??? therapeutic drug monitoring will continue for patients receiving vancomycin. Should specific assistance be needed regarding re-initation or continuation of vancomycin therapy, please page the care area pharmacist with any questions you may have. Alternately, during off-hours you may call [phone] to contact a pharmacist. ROSI MARTIN, PHARMD * Plan of Care - Cris Montejo [...] present. * Plan of Care - Roseanne Wang RN - 04/20/2011 2:06 AM EST Problem: [...] - 04/19/2011 9:18 PM EST Clinical Pharmacist Note-Rupesh Roxann Baxter [id number] 1955 Roxann Baxter is a 55 y.o. [...] Alternately, during off-hours (9p-7a) you may call [phone] to contact a pharmacist. JENNIFER MORALES PHARMD * Miscellaneous - Provider, Scanning - 04/19/2011 7:16 PM EST documented in this encounter Plan of Treatment Upcoming Encounters Date Type Department Care Team (Late st Contact Info) Description 05/17/2024 2:30 PM EST Office [place] [phone] Alcides Bonilla MD [facility] [place] [address] 04/06/2049 9:00 AM EST Hospital Encounter [place] [address] Harry Guerrero MD [facility] [place] [address] Pending Results Name Type Priority Associated Diagnoses Date /Time Transfuse RBC Blood Bank STAT 04/20/2011 12:43 PM EST documented as of this encounter Procedures Procedure Name Priority Date/Time Associated Diagnosis Comments LAB SCAN 04/30/2011 2:15 PM EST RADIOLOGIC TECHNOLOGIST CHIEF SCAN 04/30/2011 2:15 PM EST POCT GLUCOSE [...] XR CHEST PA AND LATERAL Routine 04/25/19 3:45 PM EST POCT GLUCOSE Routine 04/25/2011 12:21 PM EST UPPER GI ENDOSCOPY 04/25/2011 10 :58 AM EST coffee ground UPPER GI ENDOSCOPY Routine 04/25/2011 10 :23 AM EST POCT GLUCOSE Routine 04/25/2011 10:16 AM EST POCT GLUCOSE Routine 04/25/2011 8:00 AM EST BMP W/FASTING GLUCOSE Routine 04/25/2011 7:00 AM EST DIFFERENTIAL, AUTOMATED Routine 04/25/19 7:00 AM EST CBC (WITH DIFF) Routine [...] Routine 04/22/2011 5:06 AM EST CARDIAC ENZYMES ([facility]) STAT 04/22/2011 4:45 AM EST BASIC METABOLIC [...] Routine 04/21/2011 2:20 AM EST CARDIAC ENZYMES ([facility]) STAT 04/21/2011 2:15 AM EST POCT GLUCOSE [...] Routine 04/20/2011 10:11 AM EST CARDIAC ENZYMES ([facility]) STAT 04/20/2011 10:00 AM EST BLOOD CULTURE [...] 04/19/2011 8:11 PM EST TYPE AND SCREEN ([facility]) Routine 04/19/2011 8:11 PM EST PHOSPHORUS Routine [...] SCAN EXT O RDR/RSLT * SCAN DOC: RADIOLOGIC TECHNOLOGIST CHIEF (04/30/2011 2:15 PM EST) Anatomical Region Laterality Modality Other Narrative 05/04/2011 8:21 PM EST Procedure Note Provider, Scanning - 04/30/2011 2:15 PM EST Scanning Provider MEDIA MGR SCAN EXT O RDR/RSLT * POCT GLUCOSE LAB USE ONLY (04/29/2011 11:51 AM EST) Glucose, POC 182 60 - 199 mg/dL [facility] Comment: Supplemental ranges: <110 mg/dL before meals <200 mg/dL all other times of the day Blood specimen (specimen) 04/29/2011 11:51 AM EST 04/29/2011 11:51 AM EST Lexi Read MD POINT OF CARE TEST O JESSICA Performing Organization Address [facility] Co de Phone Number [facility] [employer] [place] [facility] * (ABNORMAL) POCT GLUCOSE LAB USE ONLY (04/29/2011 9:56 AM EST) Glucose, POC 261(H) 60 - 199 mg/dL [facility] Comment: Supplemental ranges: <110 mg/dL before meals <200 mg/dL all other times of the day Blood specimen (specimen) 04/29/2011 9:56 AM EST 04/29/2011 9:56 AM EST Lexi Read MD POINT OF CARE TEST O RDERABLES [facility] * (ABNORMAL) POCT GLUCOSE LAB USE ONLY (04/29/2011 7:41 AM EST) Glucose, POC 258(H) 60 - 199 mg/dL [facility] Comment: Supplemental ranges: <110 mg/dL before meals <200 mg/dL all other times of the day Blood specimen (specimen) 04/29/2011 7:41 AM EST 04/29/2011 7:41 AM EST Lexi Read MD POINT OF CARE TEST O RDERABLES Performing Organization Address [facility] Co de Phone Number JOHN DE LEON * DIFFERENTIAL, AUTOMATED (04/29/2011 5:50 AM EST) Pathologist [facility] Neutrophil % 54.2 34.0 - 71.0 % [...] of Diabetes Mellitus, Position Statement from the [place] [employer]. ??Diabetes Care, Volume 33, Supplement [...] Guzman MD CHEMISTRY ORDERABLES Performing Organization Address [facility] Phone Number [facility] [employer] * POCT GLUCOSE LAB USE ONLY (04/29/2011 4:26 AM EST) Glucose, POC 159 60 - 199 mg/dL [facility] [employer] [facility] Comment: Supplemental ranges: <110 mg/dL before meals <200 mg/dL all other times of the day Blood specimen (specimen) 04/29/2011 4:26 AM EST 04/29/2011 4:26 AM EST Lexi Read MD POINT OF CARE TEST O RDERABLES Performing Organization Address [facility] Phone Number [facility] [employer] * POCT GLUCOSE LAB USE ONLY (04/29/2011 2:13 AM EST) Glucose, POC 166 60 - 199 mg/dL [facility] [employer] [place] [facility] Comment: Supplemental ranges: <110 mg/dL before meals <200 mg/dL all other times of the day Blood specimen (specimen) 04/29/2011 2:13 AM EST 04/29/2011 2:13 AM EST Lexi Read MD POINT OF CARE TEST O RDERABLES Performing Organization Address [facility] de Phone Number [facility] * (ABNORMAL) POCT GLUCOSE LAB USE ONLY (04/29/2011 12:08 AM EST) Glucose, POC 259(H) 60 - 199 mg/dL [facility] Comment: Supplemental ranges: <110 mg/dL before meals <200 mg/dL all other times of the day Blood specimen (specimen) 04/29/2011 12:08 AM EST 04/29/2011 12:08 AM EST Lexi Read MD POINT OF CARE TEST O RDERARADHA Performing Organization Address [facility] de Phone Number [facility] * POCT GLUCOSE LAB USE ONLY (04/28/2011 8:20 PM EST) Glucose, POC 168 60 - 199 mg/dL [facility] Comment: Supplemental ranges: <110 mg/dL before meals <200 mg/dL all other times of the day Blood specimen (specimen) 04/28/2011 8:20 PM EST 04/28/2011 8:20 PM EST Lexi Read MD POINT OF CARE TEST O RDERABLES Performing Organization Address [facility] de Phone Number [facility] * (ABNORMAL) POCT GLUCOSE LAB USE ONLY (04/28/2011 4:05 PM EST) Glucose, POC 228(H) 60 - 199 mg/dL [facility] Comment: Supplemental ranges: <110 mg/dL before meals <200 mg/dL all other times of the day Blood specimen (specimen) 04/28/2011 4:05 PM EST 04/28/2011 4:05 PM EST Lexi Read MD POINT OF CARE TEST O RDERABLES Performing Organization Address [facility] Co de Phone Number [facility] * (ABNORMAL) POCT GLUCOSE LAB USE ONLY (04/28/2011 1:55 PM EST) Glucose, POC 346(H) 60 - 199 mg/dL [facility] Comment: Supplemental ranges: <110 mg/dL before meals <200 mg/dL all other times of the day Blood specimen (specimen) 04/28/2011 1:55 PM EST 04/28/2011 1:55 PM EST Lexi Read MD POINT OF CARE TEST O RDERABLES [facility] * DIFFERENTIAL, AUTOMATED (04/28/2011 11:22 [...] Felix Guzman MD HEMATOLOGY ORDERABLE S CERMAGDALENA MILLENNIUM * (ABNORMAL) BMP w/fasting Glucose (04/28/2011 [...] of Diabetes Mellitus, Position Statement from the [place] [employer]. ??Diabetes Care, Volume 33, Supplement [...] Guzman MD CHEMISTRY ORDERABLES Performing Organization Address [facility] Phone Number [facility] * (ABNORMAL) POCT GLUCOSE LAB USE ONLY (04/28/2011 11:13 AM EST) Glucose, POC 354(H) 60 - 199 mg/dL [facility] Comment: Supplemental ranges: <110 mg/dL before meals <200 mg/dL all other times of the day Blood specimen (specimen) 04/28/2011 11:13 AM EST 04/28/2011 11:13 AM EST Lexi Read MD POINT OF CARE TEST O RDERARADHA Performing Organization Address [facility] Phone Number [facility] [employer] [place] [facility] * (ABNORMAL) POCT GLUCOSE LAB USE ONLY (04/28/2011 9:35 AM EST) Glucose, POC 315(H) 60 - 199 mg/dL [facility] Comment: Supplemental ranges: <110 mg/dL before meals <200 mg/dL all other times of the day Blood specimen (specimen) 04/28/2011 9:35 AM EST 04/28/2011 9:35 AM EST Lexi Read MD POINT OF CARE TEST O RDERARADHA Performing Organization Address [facility] Phone Number [facility] [employer] IT[facility]NIUM * POCT GLUCOSE LAB USE ONLY (04/28/2011 7:33 AM EST) Glucose, POC 136 60 - 199 mg/dL [facility] Comment: Supplemental ranges: <110 mg/dL before meals <200 mg/dL all other times of the day Blood specimen (specimen) 04/28/2011 7:33 AM EST 04/28/2011 7:33 AM EST Lexi Read MD POINT OF CARE TEST O JESSICA Performing Organization Address [facility] Co de Phone Number [facility] * POCT GLUCOSE LAB USE ONLY (04/28/2011 4:29 AM EST) Glucose, POC 120 60 - 199 mg/dL [facility] Comment: Supplemental ranges: <110 mg/dL before meals <200 mg/dL all other times of the day Blood specimen (specimen) 04/28/2011 4:29 AM EST 04/28/2011 4:29 AM EST Lexi Read MD POINT OF CARE TEST O JESSICA Performing Organization Address [facility] Co de Phone Number [facility] SRIDHARBANNERIUM * POCT GLUCOSE LAB USE ONLY (04/27/2011 11:45 PM EST) Glucose, POC 138 60 - 199 mg/dL [facility] Comment: Supplemental ranges: <110 mg/dL before meals <200 mg/dL all other times of the day Blood specimen (specimen) 04/27/2011 11:45 PM EST 04/27/2011 11:45 PM EST Lexi Read MD POINT OF CARE TEST O JESSICA Performing Organization Address [facility] Co de Phone Number [facility] SRIDHARBANNERIUM * POCT GLUCOSE LAB USE ONLY (04/27/2011 8:11 PM EST) Glucose, POC 114 60 - 199 mg/dL [facility] Comment: Supplemental ranges: <110 mg/dL before meals <200 mg/dL all other times of the day Blood specimen (specimen) 04/27/2011 8:11 PM EST 04/27/2011 8:11 PM EST Lexi Read MD POINT OF CARE TEST O RDERARADHA Performing Organization Address [facility] de Phone Number [facility]SI[facility] * (ABNORMAL) POCT GLUCOSE LAB USE ONLY (04/27/2011 4:36 PM EST) Glucose, POC 203(H) 60 - 199 mg/dL [facility] Comment: Supplemental ranges: <110 mg/dL before meals <200 mg/dL all other times of the day Blood specimen (specimen) 04/27/2011 4:36 PM EST 04/27/2011 4:36 PM EST Lexi Read MD POINT OF CARE TEST O LUPISERARADHA Performing Organization Address [facility] de Phone Number [facility] * (ABNORMAL) POCT GLUCOSE LAB USE ONLY (04/27/2011 11:37 AM EST) Glucose, POC 201(H) 60 - 199 mg/dL [facility] Comment: Supplemental ranges: <110 mg/dL before meals <200 mg/dL all other times of the day Blood specimen (specimen) 04/27/2011 11:37 AM EST 04/27/2011 11:37 AM EST Lexi Read MD POINT OF CARE TEST O RDERARADHA Performing Organization Address [facility] de Phone Number JOHN EVANSI[facility] * DIFFERENTIAL, AUTOMATED (04/27/2011 8:30 AM EST) Neutrophil % 49.1 34.0 - 71.0 % [facility] MILLENNIUM Neutrophil Absolute 3.35 1.50 - 6.30 [...] Felix Guzman MD HEMATOLOGY ORDERABLE S [facility] SRIDHARENNIUM * (ABNORMAL) CBC (with Diff) (04/27/2011 8:30 [...] Felix Guzman MD HEMATOLOGY ORDERABLE S CERMAGDALENA MILLENNIUM * (ABNORMAL) BMP w/fasting Glucose (04/27/2011 8:30 [...] of Diabetes Mellitus, Position Statement from the [place] [employer]. ??Diabetes Care, Volume 33, Supplement [...] AM EST Felix Guzman MD CHEMISTRY ORDERABLES [facility] * (ABNORMAL) POCT GLUCOSE LAB USE ONLY (04/27/2011 7:48 AM EST) Glucose, POC 269(H) 60 - 199 mg/dL [facility] Comment: Supplemental ranges: <110 mg/dL before meals <200 mg/dL all other times of the day Blood specimen (specimen) 04/27/2011 7:48 AM EST 04/27/2011 7:48 AM EST Lexi Read MD POINT OF CARE TEST O JESSICA Performing Organization Address [facility] de Phone Number [facility] * POCT GLUCOSE LAB USE ONLY (04/27/2011 3:47 AM EST) Glucose, POC 76 60 - 199 mg/dL [facility] Comment: Supplemental ranges: <110 mg/dL before meals <200 mg/dL all other times of the day Blood specimen (specimen) 04/27/2011 3:47 AM EST 04/27/2011 3:47 AM EST Lexi Read MD POINT OF CARE TEST O JESSICA Performing Organization Address [facility] de Phone Number [facility] * POCT GLUCOSE LAB USE ONLY (04/26/2011 11:53 PM EST) Glucose, POC 114 60 - 199 mg/dL [facility] Comment: Supplemental ranges: <110 mg/dL before meals <200 mg/dL all other times of the day Blood specimen (specimen) 04/26/2011 11:53 PM EST 04/26/2011 11:53 PM EST Lexi Read MD POINT OF CARE TEST O JESSICA Performing Organization Address [facility] Co de Phone Number [facility] * (ABNORMAL) POCT GLUCOSE LAB USE ONLY (04/26/2011 8:02 PM EST) Glucose, POC 228(H) 60 - 199 mg/dL [facility] Comment: Supplemental ranges: <110 mg/dL before meals <200 mg/dL all other times of the day Blood specimen (specimen) 04/26/2011 8:02 PM EST 04/26/2011 8:02 PM EST Lexi Read MD POINT OF CARE TEST O RDERABLES Performing Organization Address [facility] Co de Phone Number JOHN EVANSIUM * (ABNORMAL) POCT GLUCOSE LAB USE ONLY (04/26/2011 4:02 PM EST) Glucose, POC 205(H) 60 - 199 mg/dL [facility] SRIDHAR[facility] Comment: Supplemental ranges: <110 mg/dL before meals <200 mg/dL all other times of the day Blood specimen (specimen) 04/26/2011 4:02 PM EST 04/26/2011 4:02 PM EST Lexi Read MD POINT OF CARE TEST O RDERABLES Performing Organization Address [facility] de Phone Number [facility] EV[facility]SI[facility] * POCT GLUCOSE LAB USE ONLY (04/26/2011 11:46 AM EST) Glucose, POC 197 60 - 199 mg/dL [facility] SRIDHARBANNERIUM Comment: Supplemental ranges: <110 mg/dL before meals <200 mg/dL all other times of the day Blood specimen (specimen) 04/26/2011 11:46 AM EST 04/26/2011 11:46 AM EST Lexi Read MD POINT OF CARE TEST O RDERABLES Performing Organization Address [facility] de Phone Number [facility] * DIFFERENTIAL, AUTOMATED (04/26/2011 10:30 AM EST) [...] EST Felix Guzman MD HEMATOLOGY ORDERABLE S [facility] M[facility] * (ABNORMAL) CBC (with Diff) (04/26/2011 10:30 [...] Felix Guzman MD HEMATOLOGY ORDERABLE S CERMAGDALENA MILLENNIUM * (ABNORMAL) BMP w/fasting Glucose (04/26/2011 10:30 [...] of Diabetes Mellitus, Position Statement from the [place] [employer]. ??Diabetes Care, Volume 33, Supplement [...] EST Felix Guzman MD CHEMISTRY ORDERABLES [facility] WALLERENNIUM * (ABNORMAL) CK (04/26/2011 10:30 AM EST) Creatine Kinase 263(H) 0 - 160 unit/L [facility] MILLENNIUM Blood specimen (specimen) 04/26/2011 10:30 AM EST 04/26/2011 11:05 AM EST Felix Guzman MD CHEMISTRY ORDERABLES Performing Organization Address [facility] de Phone Number [facility] * POCT GLUCOSE LAB USE ONLY (04/26/2011 7:48 AM EST) Glucose, POC 179 60 - 199 mg/dL [facility] Comment: Supplemental ranges: <110 mg/dL before meals <200 mg/dL all other times of the day Blood specimen (specimen) 04/26/2011 7:48 AM EST 04/26/2011 7:48 AM EST Lexi Read MD POINT OF CARE TEST O RDERABLES Performing Organization Address [facility] Phone Number [facility] * POCT GLUCOSE LAB USE ONLY (04/26/2011 5:53 AM EST) Glucose, POC 83 60 - 199 mg/dL [facility] Comment: Supplemental ranges: <110 mg/dL before meals <200 mg/dL all other times of the day Blood specimen (specimen) 04/26/2011 5:53 AM EST 04/26/2011 5:53 AM EST Lexi Read MD POINT OF CARE TEST O RDERABLES Performing Organization Address [facility] Phone Number [facility] * POCT GLUCOSE LAB USE ONLY (04/26/2011 3:42 AM EST) Glucose, POC 94 60 - 199 mg/dL [facility] Comment: Supplemental ranges: <110 mg/dL before meals <200 mg/dL all other times of the day Blood specimen (specimen) 04/26/2011 3:42 AM EST 04/26/2011 3:42 AM EST Lexi Read MD POINT OF CARE TEST O RDERABLES Performing Organization Address [facility] de Phone Number [facility] * POCT GLUCOSE LAB USE ONLY (04/26/2011 12:06 AM EST) Glucose, POC 138 60 - 199 mg/dL [facility] Comment: Supplemental ranges: <110 mg/dL before meals <200 mg/dL all other times of the day Blood specimen (specimen) 04/26/2011 12:06 AM EST 04/26/2011 12:06 AM EST Lexi Read MD POINT OF CARE TEST O RDERABLES Performing Organization Address [facility] de Phone Number [facility] [employer] * (ABNORMAL) POCT GLUCOSE LAB USE ONLY (04/25/2011 8:32 PM EST) Glucose, POC 222(H) 60 - 199 mg/dL [facility] [employer] [facility] Comment: Supplemental ranges: <110 mg/dL before meals <200 mg/dL all other times of the day Blood specimen (specimen) 04/25/2011 8:32 PM EST 04/25/2011 8:32 PM EST Lexi Read MD POINT OF CARE TEST O RDERARADHA Performing Organization Address [facility] de Phone Number [facility] [employer] [employer] * POCT GLUCOSE LAB USE ONLY (04/25/2011 4:48 PM EST) Glucose, POC 184 60 - 199 mg/dL [facility] [employer] Comment: Supplemental ranges: <110 mg/dL before meals <200 mg/dL all other times of the day Blood specimen (specimen) 04/25/2011 4:48 PM EST 04/25/2011 4:48 PM EST Lexi Read MD POINT OF CARE TEST O RDERARADHA Performing Organization Address [facility] de Phone Number JOHN [employer] [employer] * XR CHEST ROUTINE PA & LATERAL (04/25/2011 3:45 PM EST) Anatomical Region Laterality Modality Chest N/A Radiographic Michelle ging 04/25/2011 3:45 PM EST Impressions 04/28/2011 8:24 AM EST IMPRESSION: ?? Resolved pulmonary airspace opacity, [id number] bilateral effusion seen posteriorly. Narrative 04/28/2011 8:24 [...] opacities are seen. However, there are bilateral unltr-pn-gcqiyzuk posteriorly layering pleural effusions, best seen on [...] opacities are seen. However, there are bilateral fsnau-sl-wggjroho posteriorly layering pleural effusions, best seen on the lateral radiograph. IMPRESSION IMPRESSION: Resolved pulmonary airspace opacity, yfoxp-nb-nblrqoap bilateral effusionseen posteriorly. Felix Guzman MD IMG DX ORDERABLES * POCT GLUCOSE LAB USE ONLY (04/25/2011 12:21 PM EST) [facility] Glucose, POC 176 60 - 199 mg/dL [facility] Comment: Supplemental ranges: <110 mg/dL before meals <200 mg/dL all other times of the day Blood specimen (specimen) 04/25/2011 12:21 PM EST 04/25/2011 12:21 PM EST Lexi Read MD POINT OF CARE TEST O JESSICA [facility] * UPPER GI ENDOSCOPY (04/25/2011 10:23 AM EST) UPPER GI ENDOSCOPY [facility] Endoscopy ___ Patient Name: Roxann Baxter ? Procedure Date: 04/25/2011 10:23 AM ? Date of : 1955 ? Age: 55 ? Order #: [id number] ? ___ Procedure: ? Upper GI endoscopy Indications: ? Diagnostic procedure, Previous coffee ? grounds per NG tube while intuabted Providers: ? Devin Bob MD, Nathainel Nicole, ? RN, Boy Ford RN, Wilian Thompson ? MD Ramirez Referring MD: ?Harman Davis MD Medicines: ? Fentanyl 100 [...] duodenum. Recommendation: ?- Return patient to hospital cyr for ? ongoing care. ? - BID [...] Glucose, POC 152 60 - 199 mg/dL [facility] Comment: Supplemental ranges: <110 mg/dL before meals <200 mg/dL all other times of the day Blood specimen (specimen) 04/25/2011 10:16 AM EST 04/25/2011 10:16 AM EST Lexi Read MD POINT OF CARE TEST O RDERABLES Performing Organization Address [facility] Co de Phone Number [facility] * POCT GLUCOSE LAB USE ONLY (04/25/2011 8:00 AM EST) Glucose, POC 163 60 - 199 mg/dL [facility] Comment: Supplemental ranges: <110 mg/dL before meals <200 mg/dL all other times of the day Blood specimen (specimen) 04/25/2011 8:00 AM EST 04/25/2011 8:00 AM EST Lexi Read MD POINT OF CARE TEST O RDERARADHA Performing Organization Address [facility] de Phone Number [facility] SRIDHARENNI[facility] * DIFFERENTIAL, AUTOMATED (04/25/2011 7:00 AM EST) Neutrophil % 63.6 34.0 - 71.0 % [facility] Neutrophil Absolute 5.06 1.50 - 6.30 x10(3)/mcL [...] of Diabetes Mellitus, Position Statement from the [place] [employer]. ??Diabetes Care, Volume 33, Supplement [...] Guzman MD CHEMISTRY ORDERABLES Performing Organization Address City/[facility] Co de Phone Number [facility] * (ABNORMAL) CK (04/25/2011 7:00 AM EST) Creatine Kinase 374(H) 0 - 160 unit/L JOHN DE LEON Blood specimen (specimen) 04/25/2011 7:00 AM EST 04/25/2011 7:10 AM EST Felix Guzman MD CHEMISTRY ORDERABLES Performing Organization Address City/[facility] Co de Phone Number [facility] * POCT GLUCOSE LAB USE ONLY (04/25/2011 4:29 AM EST) Glucose, POC 75 60 - 199 mg/dL [facility] MILLEN[facility] Comment: Supplemental ranges: <110 mg/dL before meals <200 mg/dL all other times of the day Blood specimen (specimen) 04/25/2011 4:29 AM EST 04/25/2011 4:29 AM EST Narrative Authorizing Provider Result Flavia Read MD POINT OF CARE TEST O RDERARADHA Performing Organization Address [facility] de Phone Number [facility] [employer] * POCT GLUCOSE LAB USE ONLY (04/24/2011 11:31 PM EST) Glucose, POC 103 60 - 199 mg/dL [facility] [employer] Comment: Supplemental ranges: <110 mg/dL before meals <200 mg/dL all other times of the day Blood specimen (specimen) 04/24/2011 11:31 PM EST 04/24/2011 11:31 PM EST Lexi Read MD POINT OF CARE TEST O LUPISERARADHA Performing Organization Address [facility] de Phone Number [facility] [employer] * (ABNORMAL) POCT GLUCOSE LAB USE ONLY (04/24/2011 7:44 PM EST) Glucose, POC 212(H) 60 - 199 mg/dL [facility] MILLENNI[facility] Comment: Supplemental ranges: <110 mg/dL before meals <200 mg/dL all other times of the day Blood specimen (specimen) 04/24/2011 7:44 PM EST 04/24/2011 7:44 PM EST Lexi Read MD POINT OF CARE TEST O RDERARADHA Performing Organization Address [facility] de Phone Number [facility] [employer] * POCT GLUCOSE LAB USE ONLY (04/24/2011 5:05 PM EST) Glucose, POC 121 60 - 199 mg/dL [facility] [employer] Comment: Supplemental ranges: <110 mg/dL before meals <200 mg/dL all other times of the day Blood specimen (specimen) 04/24/2011 5:05 PM EST 04/24/2011 5:05 PM EST Lexi Read MD POINT OF CARE TEST O RDERARADHA Performing Organization Address [facility] de Phone Number [facility] * POCT GLUCOSE LAB USE ONLY (04/24/2011 2:45 PM EST) Glucose, POC 145 60 - 199 mg/dL [facility]ENNI[facility] Comment: Supplemental ranges: <110 mg/dL before meals <200 mg/dL all other times of the day Blood specimen (specimen) 04/24/2011 2:45 PM EST 04/24/2011 2:45 PM EST Narrative Authorizing Provider Result Flavia Read MD POINT OF CARE TEST O RDERARADHA Performing Organization Address [facility] Phone Number [facility] SRIDHARBANNERIUM * POCT GLUCOSE LAB USE ONLY (04/24/2011 11:33 AM EST) Glucose, POC 161 60 - 199 mg/dL [facility] Comment: Supplemental ranges: <110 mg/dL before meals <200 mg/dL all other times of the day Blood specimen (specimen) 04/24/2011 11:33 AM EST 04/24/2011 11:33 AM EST Narrative Authorizing Provider Result Flavia Read MD POINT OF CARE TEST O RDERARADHA Performing Organization Address [facility] de Phone Number [facility] SRIDHARBANNERIUM * POCT GLUCOSE LAB USE ONLY (04/24/2011 7:35 AM EST) Glucose, POC 113 60 - 199 mg/dL [facility] MILLENNIUM Comment: Supplemental ranges: <110 mg/dL before meals <200 mg/dL all other times of the day Blood specimen (specimen) 04/24/2011 7:35 AM EST 04/24/2011 7:35 AM EST Narrative Authorizing Provider Result Flavia Read MD POINT OF CARE TEST O RDERABLES [facility] * MAGNESIUM (04/24/2011 6:10 AM EST) Magnesium 0.71 0.69 - 1.07 mmol/L [facility] Blood specimen (specimen) 04/24/2011 6:10 AM EST 04/24/2011 6:30 AM EST Felix Guzman MD CHEMISTRY ORDERABLES Performing Organization Address City/State/[facility] Co de Phone Number [facility] SRIDHARENNI[facility] * DIFFERENTIAL, AUTOMATED (04/24/2011 6:10 AM EST) Neutrophil % 62.3 34.0 - 71.0 % [...] Felix Guzman MD HEMATOLOGY ORDERABLE S [facility] * (ABNORMAL) BMP w/fasting Glucose (04/24/2011 6:10 [...] of Diabetes Mellitus, Position Statement from the [place] [employer]. ??Diabetes Care, Volume 33, Supplement 1, Apr 2009 Blood Urea Nitrogen 13 8 - 18 mg/dL [facility] Creatinine 0.72 0.70 - 1.20 mg/dL [facility] Sodium 145 135 - 145 mmol/L [facility] Potassium 2.7(Criti sang) 3.5 - 5.0 mmol/L [facility] Comment: Results rechecked-[facility] Called by: mani, Read back by: ar palencia, Date/Time:04/24/11 07:23. Please note: ??Patients with [...] Guzman MD CHEMISTRY ORDERABLES Performing Organization Address [facility] Phone Number [facility] [employer] [facility] * (ABNORMAL) CK (04/24/2011 6:10 AM EST) Creatine Kinase 656(H) 0 - 160 unit/L [facility] Blood specimen (specimen) 04/24/2011 6:10 AM EST 04/24/2011 6:27 AM EST Felix Guzman MD CHEMISTRY ORDERABLES Performing Organization Address [facility] Phone Number [facility] [employer] [facility] * POCT GLUCOSE LAB USE ONLY (04/24/2011 4:03 AM EST) Glucose, POC 177 60 - 199 mg/dL [facility] Comment: Supplemental ranges: <110 mg/dL before meals <200 mg/dL all other times of the day Blood specimen (specimen) 04/24/2011 4:03 AM EST 04/24/2011 4:03 AM EST Lexi Read MD POINT OF CARE TEST O RDERABLES Performing Organization Address [facility] Phone Number [facility] * POCT GLUCOSE LAB USE ONLY (04/24/2011 12:11 AM EST) Glucose, POC 94 60 - 199 mg/dL [facility] Comment: Supplemental ranges: <110 mg/dL before meals <200 mg/dL all other times of the day Blood specimen (specimen) 04/24/2011 12:11 AM EST 04/24/2011 12:11 AM EST Lexi Read MD POINT OF CARE TEST O RDERABLES Performing Organization Address [facility] Co de Phone Number [facility] * POCT GLUCOSE LAB USE ONLY (04/23/2011 8:07 PM EST) Glucose, POC 146 60 - 199 mg/dL [facility] Comment: Supplemental ranges: <110 mg/dL before meals <200 mg/dL all other times of the day Blood specimen (specimen) 04/23/2011 8:07 PM EST 04/23/2011 8:07 PM EST Lexi Read MD POINT OF CARE TEST O RDERABLES Performing Organization Address [facility] Phone Number [facility] * LAVENDER TUBE HOLD (04/23/2011 5:40 PM EST) Lavender Hold Sample in lab. [facility] Blood specimen (specimen) 04/23/2011 5:40 PM EST 04/23/2011 6:17 PM EST Felix Guzman MD HEMATOLOGY ORDERABLE S Performing Organization Address [facility] Co de Phone Number [facility] * GREEN TUBE HOLD (04/23/2011 5:40 PM EST) Green Hold Sample in lab. [facility] Blood specimen (specimen) 04/23/2011 5:40 PM EST 04/23/2011 6:18 PM EST Felix Guzman MD CHEMISTRY ORDERABLES Performing Organization Address [facility] Phone Number [facility] * (ABNORMAL) POCT GLUCOSE LAB USE ONLY (04/23/2011 4:36 PM EST) Glucose, POC 200(H) 60 - 199 mg/dL [facility] Comment: Supplemental ranges: <110 mg/dL before meals <200 mg/dL all other times of the day Blood specimen (specimen) 04/23/2011 4:36 PM EST 04/23/2011 4:36 PM EST Lexi Read MD POINT OF CARE TEST O RDERABLES Performing Organization Address [facility] Phone Number [facility] * POCT GLUCOSE LAB USE ONLY (04/23/2011 3:00 PM EST) Glucose, POC 177 60 - 199 mg/dL [facility] Comment: Supplemental ranges: <110 mg/dL before meals <200 mg/dL all other times of the day Blood specimen (specimen) 04/23/2011 3:00 PM EST 04/23/2011 3:00 PM EST Lexi Read MD POINT OF CARE TEST O RDERARADHA Performing Organization Address [facility] Phone Number [facility] * POCT GLUCOSE LAB USE ONLY (04/23/2011 1:28 PM EST) Glucose, POC 169 60 - 199 mg/dL [facility] Comment: Supplemental ranges: <110 mg/dL before meals <200 mg/dL all other times of the day Blood specimen (specimen) 04/23/2011 1:28 PM EST 04/23/2011 1:28 PM EST Lexi Read MD POINT OF CARE TEST O RDERARADHA Performing Organization Address [facility] de Phone Number [facility] * POCT GLUCOSE LAB USE ONLY (04/23/2011 12:23 PM EST) Glucose, POC 144 60 - 199 mg/dL [facility] MILLENNIUM Comment: Supplemental ranges: <110 mg/dL before meals <200 mg/dL all other times of the day Blood specimen (specimen) 04/23/2011 12:23 PM EST 04/23/2011 12:23 PM EST Narrative Authorizing Provider Result Flavia Read MD POINT OF CARE TEST O RDERABLES Performing Organization Address [facility] de Phone Number [facility] [employer] * POCT GLUCOSE LAB USE ONLY (04/23/2011 11:24 AM EST) Glucose, POC 149 60 - 199 mg/dL [facility] [employer] Comment: Supplemental ranges: <110 mg/dL before meals <200 mg/dL all other times of the day Blood specimen (specimen) 04/23/2011 11:24 AM EST 04/23/2011 11:24 AM EST Narrative Authorizing Provider Result Flavia Read MD POINT OF CARE TEST O LUPISERARADHA Performing Organization Address [facility] de Phone Number [facility] [employer] * POCT GLUCOSE LAB USE ONLY (04/23/2011 10:22 AM EST) Glucose, POC 146 60 - 199 mg/dL [facility] [employer] Comment: Supplemental ranges: <110 mg/dL before meals <200 mg/dL all other times of the day Blood specimen (specimen) 04/23/2011 10:22 AM EST 04/23/2011 10:22 AM EST Narrative Authorizing Provider Result Flavia Read MD POINT OF CARE TEST O RDERARADHA Performing Organization Address [facility] de Phone Number [facility] [employer] * POCT GLUCOSE LAB USE ONLY (04/23/2011 9:17 AM EST) Glucose, POC 153 60 - 199 mg/dL [facility] MILLENNIUM Comment: Supplemental ranges: <110 mg/dL before meals <200 mg/dL all other times of the day Blood specimen (specimen) 04/23/2011 9:17 AM EST 04/23/2011 9:17 AM EST Lexi Read MD POINT OF CARE TEST O RDERABLES Performing Organization Address [facility] Co de Phone Number JOHN DE LEON * POCT GLUCOSE LAB USE ONLY (04/23/2011 8:18 AM EST) Glucose, POC 161 60 - 199 mg/dL [facility] Comment: Supplemental ranges: <110 mg/dL before meals <200 mg/dL all other times of the day Blood specimen (specimen) 04/23/2011 8:18 AM EST 04/23/2011 8:18 AM EST Lexi Read MD POINT OF CARE TEST O LUPISERARADHA Performing Organization Address [facility] Phone Number [facility] DE LEON * INTUBATION (04/23/2011 8:10 AM EST) Narrative 04/23/2011 8:10 AM EST Intubation Procedure Note 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 Location of Procedure: ICU [facility]. Risks and Benefits: The risks and [...] Reason for Intubation: ?? 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 Location of Procedure: ICU [facility]. Risks and Benefits: The risks and [...] Glucose, POC 167 60 - 199 mg/dL [facility]ILL[facility] Comment: Supplemental ranges: <110 mg/dL before meals <200 mg/dL all other times of the day Blood specimen (specimen) 04/23/2011 7:15 AM EST 04/23/2011 7:15 AM EST Lexi Read MD POINT OF CARE TEST O RDERARADHA Performing Organization Address [facility] Phone Number [facility] [employer] [facility] * POCT GLUCOSE LAB USE ONLY (04/23/2011 6:09 AM EST) Glucose, POC 180 60 - 199 mg/dL [facility] Comment: Supplemental ranges: <110 mg/dL before meals <200 mg/dL all other times of the day Blood specimen (specimen) 04/23/2011 6:09 AM EST 04/23/2011 6:09 AM EST Lexi Read MD POINT OF CARE TEST O RDERABLES Performing Organization Address [facility] de Phone Number [facility] * POCT GLUCOSE LAB USE ONLY (04/23/2011 5:09 AM EST) Glucose, POC 186 60 - 199 mg/dL [facility] Comment: Supplemental ranges: <110 mg/dL before meals <200 mg/dL all other times of the day Blood specimen (specimen) 04/23/2011 5:09 AM EST 04/23/2011 5:09 AM EST Lexi Read MD POINT OF CARE TEST O RDERABLES Performing Organization Address [facility] Co de Phone Number [facility] [employer] * POCT GLUCOSE LAB USE ONLY (04/23/2011 4:05 AM EST) Glucose, POC 198 60 - 199 mg/dL [facility] Comment: Supplemental ranges: <110 mg/dL before meals <200 mg/dL all other times of the day Blood specimen (specimen) 04/23/2011 4:05 AM EST 04/23/2011 4:05 AM EST Lexi Read MD POINT OF CARE TEST O JESSICA Performing Organization Address [facility] Co de Phone Number [facility] [employer] [facility] * POCT GLUCOSE LAB USE ONLY (04/23/2011 2:48 AM EST) Glucose, POC 159 60 - 199 mg/dL [facility] Comment: Supplemental ranges: <110 mg/dL before meals <200 mg/dL all other times of the day Blood specimen (specimen) 04/23/2011 2:48 AM EST 04/23/2011 2:48 AM EST Leix Read MD POINT OF CARE TEST O JESSICA Performing Organization Address [facility] Co de Phone Number [facility] [employer] [facility] * POCT GLUCOSE LAB USE ONLY (04/23/2011 1:47 AM EST) Glucose, POC 117 60 - 199 mg/dL [facility] [employer] [facility] Comment: Supplemental ranges: <110 mg/dL before meals <200 mg/dL all other times of the day Blood specimen (specimen) 04/23/2011 1:47 AM EST 04/23/2011 1:47 AM EST Lexi Read MD POINT OF CARE TEST O JESSICA Performing Organization Address [facility] de Phone Number [facility] [employer] * POCT GLUCOSE LAB USE ONLY (04/23/2011 1:05 AM EST) Glucose, POC 95 60 - 199 mg/dL [facility] Comment: Supplemental ranges: <110 mg/dL before meals <200 mg/dL all other times of the day Blood specimen (specimen) 04/23/2011 1:05 AM EST 04/23/2011 1:05 AM EST Lexi Read MD POINT OF CARE TEST O RDERARADHA Performing Organization Address [facility] de Phone Number [facility] [employer] [facility] * POCT GLUCOSE LAB USE ONLY (04/23/2011 12:19 AM EST) Glucose, POC 121 60 - 199 mg/dL [facility] MILLEN[facility] Comment: Supplemental ranges: <110 mg/dL before meals <200 mg/dL all other times of the day Blood specimen (specimen) 04/23/2011 12:19 AM EST 04/23/2011 12:19 AM EST Lexi Read MD POINT OF CARE TEST O LUPISERARADHA Performing Organization Address [facility] Co de Phone Number [facility] * POCT GLUCOSE LAB USE ONLY (04/22/2011 11:28 PM EST) Glucose, POC 150 60 - 199 mg/dL [facility] MILLENNIUM Comment: Supplemental ranges: <110 mg/dL before meals <200 mg/dL all other times of the day Blood specimen (specimen) 04/22/2011 11:28 PM EST 04/22/2011 11:28 PM EST Lexi Read MD POINT OF CARE TEST O JESSICA Performing Organization Address [facility] Co de Phone Number [facility] * POCT GLUCOSE LAB USE ONLY (04/22/2011 10:10 PM EST) Glucose, POC 197 60 - 199 mg/dL [facility] MILL[facility]UM Comment: Supplemental ranges: <110 mg/dL before meals <200 mg/dL all other times of the day Blood specimen (specimen) 04/22/2011 10:10 PM EST 04/22/2011 10:10 PM EST Lexi Read MD POINT OF CARE TEST O RDERABLES Performing Organization Address [facility]/State/[facility] de Phone Number [facility] * (ABNORMAL) POCT GLUCOSE LAB USE ONLY (04/22/2011 8:46 PM EST) Glucose, POC 242(H) 60 - 199 mg/dL [facility] Comment: Supplemental ranges: <110 mg/dL before meals <200 mg/dL all other times of the day Blood specimen (specimen) 04/22/2011 8:46 PM EST 04/22/2011 8:46 PM EST Lexi Read MD POINT OF CARE TEST O RDERARADHA Performing Organization Address [facility] de Phone Number [facility] * POCT GLUCOSE LAB USE ONLY (04/22/2011 7:25 PM EST) Glucose, POC 139 60 - 199 mg/dL [facility] Comment: Supplemental ranges: <110 mg/dL before meals <200 mg/dL all other times of the day Blood specimen (specimen) 04/22/2011 7:25 PM EST 04/22/2011 7:25 PM EST Lexi Read MD POINT OF CARE TEST O RDERARADHA Performing Organization Address [facility] de Phone Number [facility] * POCT GLUCOSE LAB USE ONLY (04/22/2011 7:01 PM EST) Glucose, POC 137 60 - 199 mg/dL [facility] Comment: Supplemental ranges: <110 mg/dL before meals <200 mg/dL all other times of the day Blood specimen (specimen) 04/22/2011 7:01 PM EST 04/22/2011 7:01 PM EST Lexi Raed MD POINT OF CARE TEST O RDERARADHA Performing Organization Address [facility] Co de Phone Number [facility] * POCT GLUCOSE LAB USE ONLY (04/22/2011 6:10 PM EST) Glucose, POC 148 60 - 199 mg/dL [facility]ERNER MILLENNIUM Comment: Supplemental ranges: <110 mg/dL before meals <200 mg/dL all other times of the day Blood specimen (specimen) 04/22/2011 6:10 PM EST 04/22/2011 6:10 PM EST Lexi Read MD POINT OF CARE TEST O RDERARADHA Performing Organization Address [facility] de Phone Number [facility] [employer] [place] [facility] * POCT GLUCOSE LAB USE ONLY (04/22/2011 5:17 PM EST) Glucose, POC 156 60 - 199 mg/dL [facility] Comment: Supplemental ranges: <110 mg/dL before meals <200 mg/dL all other times of the day Blood specimen (specimen) 04/22/2011 5:17 PM EST 04/22/2011 5:17 PM EST Narrative Authorizing Provider Result Flavia Read MD POINT OF CARE TEST O LUPISERARADHA Performing Organization Address [facility] de Phone Number [facility] [employer] [place] [facility] * POCT GLUCOSE LAB USE ONLY (04/22/2011 3:46 PM EST) Glucose, POC 174 60 - 199 mg/dL [facility] [employer] Comment: Supplemental ranges: <110 mg/dL before meals <200 mg/dL all other times of the day Blood specimen (specimen) 04/22/2011 3:46 PM EST 04/22/2011 3:46 PM EST Narrative Authorizing Provider Result Flavia Read MD POINT OF CARE TEST O LUPISERARADHA Performing Organization Address [facility] de Phone Number [facility] [employer] [place] [employer] * POCT GLUCOSE LAB USE ONLY (04/22/2011 2:23 PM EST) Glucose, POC 180 60 - 199 mg/dL [facility] MILLENNIUM Comment: Supplemental ranges: <110 mg/dL before meals <200 mg/dL all other times of the day Blood specimen (specimen) 04/22/2011 2:23 PM EST 04/22/2011 2:23 PM EST Lexi Read MD POINT OF CARE TEST O RDERABLES Performing Organization Address [facility] Phone Number [facility] [employer] [place] [facility] * POCT GLUCOSE LAB USE ONLY (04/22/2011 1:00 PM EST) Glucose, POC 181 60 - 199 mg/dL [facility] Comment: Supplemental ranges: <110 mg/dL before meals <200 mg/dL all other times of the day Blood specimen (specimen) 04/22/2011 1:00 PM EST 04/22/2011 1:00 PM EST Lexi Read MD POINT OF CARE TEST O RDERABLES Performing Organization Address [facility] Phone Number [facility] * Potassium (04/22/2011 1:00 PM EST) Potassium 4.0 3.5 - 5.0 mmol/L [facility] Comment: Please note: ??Patients with WBC >100,000 may have falsely elevated Potassium levels. ??For accurate Potassium quantification in these patients send serum separator tube (gold top) for subsequent determinations. ??Contact the Clinical Chemistry Laboratory if there are any questions. Blood specimen (specimen) 04/22/2011 1:00 PM EST 04/22/2011 1:09 PM EST Lexi Read MD CHEMISTRY ORDERABLES Performing Organization Address [facility] Phone Number [facility] [employer] [place] [facility] * POCT GLUCOSE LAB USE ONLY (04/22/2011 11:53 AM EST) Glucose, POC 179 60 - 199 mg/dL [facility] Comment: Supplemental ranges: <110 mg/dL before meals <200 mg/dL all other times of the day Blood specimen (specimen) 04/22/2011 11:53 AM EST 04/22/2011 11:53 AM EST Lexi Read MD POINT OF CARE TEST O RDERABLES Performing Organization Address [facility] de Phone Number [facility] * (ABNORMAL) POCT GLUCOSE LAB USE ONLY (04/22/2011 10:27 AM EST) Glucose, POC 205(H) 60 - 199 mg/dL [facility] Comment: Supplemental ranges: <110 mg/dL before meals <200 mg/dL all other times of the day Blood specimen (specimen) 04/22/2011 10:27 AM EST 04/22/2011 10:27 AM EST Lexi Read MD POINT OF CARE TEST O RDKATHY Performing Organization Address [facility] Phone Number [facility] * POCT GLUCOSE LAB USE ONLY (04/22/2011 8:49 AM EST) Glucose, POC 188 60 - 199 mg/dL [facility] Comment: Supplemental ranges: <110 mg/dL before meals <200 mg/dL all other times of the day Blood specimen (specimen) 04/22/2011 8:49 AM EST 04/22/2011 8:49 AM EST Lexi Read MD POINT OF CARE TEST O JESSICA Performing Organization Address [facility] Number [facility] * EKG 12 Lead (04/22/2011 8:12 AM EST) Ventricular rate 65 BPM MUSE SYSTEM Atrial Rate 65 BPM MUSE SYSTEM P-R Interval 148 ms MUSE SYSTEM QRS Duration 56 ms MUSE SYSTEM Q-T Interval 416 ms MUSE SYSTEM QTC Calculated (Bezet) 432 ms MUSE SYSTEM Calculated P Harriet 56 degrees MUSE SYSTEM Calculated R Harriet 32 degrees MUSE SYSTEM Calculated T Harriet 28 degrees MUSE SYSTEM INTERPRETATION Normal sinus rhythm Low voltage QRS Borderline ECG When compared with ECG of 20-APR-2011 12:25, QT has shortened Confirmed by MD Bob, Tunde ([id number]) on 04/22/2011 4:23:45 PM MUSE SYSTEM 04/22/2011 8:12 AM EST 04/22/2011 4:23 PM EST Siria Fuller MD ECG ORDERABLES [facility] * (ABNORMAL) POCT GLUCOSE LAB USE ONLY (04/22/2011 7:43 AM EST) Glucose, POC 213(H) 60 - 199 mg/dL [facility] Comment: Supplemental ranges: <110 mg/dL before meals <200 mg/dL all other times of the day Blood specimen (specimen) 04/22/2011 7:43 AM EST 04/22/2011 7:43 AM EST Lexi Read MD POINT OF CARE TEST O RDERABLES Performing Organization Address City/[facility]/ZIP Co de Phone Number [facility] * (ABNORMAL) DIFFERENTIAL, AUTOMATED (04/22/2011 6:32 AM EST) Pathologist [facility] Neutrophil % 87.0(H) 34.0 - 71.0 % [...] EST Siria Fuller MD HEMATOLOGY ORDERABLE S [facility]DAL[facility] WALL[facility]EN[facility] * (ABNORMAL) CBC (with Diff) (04/22/2011 6:32 [...] of variation 17.1(H) 10.9 - 14.4 % [facility]ERNER MILLENNIUM Mean Platelet Volume 8.6(L) 9.0 - 12.0 fL [facility] MILLENNIUM Blood specimen (specimen) 04/22/2011 6:32 AM EST 04/22/2011 6:32 AM EST Siria Fuller MD HEMATOLOGY ORDERABLE S Performing Organization Address City/[facility]/ZIP Co de Phone Number JOHN EVANSI[facility] * POCT GLUCOSE LAB USE ONLY (04/22/2011 6:15 AM EST) Glucose, POC 180 60 - 199 mg/dL [facility] Comment: Supplemental ranges: <110 mg/dL before meals <200 mg/dL all other times of the day Blood specimen (specimen) 04/22/2011 6:15 AM EST 04/22/2011 6:15 AM EST Lexi Read MD POINT OF CARE TEST O JESSICA Performing Organization Address [facility] Co de Phone Number [facility] * POCT GLUCOSE LAB USE ONLY (04/22/2011 5:06 AM EST) Glucose, POC 145 60 - 199 mg/dL [facility] Comment: Supplemental ranges: <110 mg/dL before meals <200 mg/dL all other times of the day Blood specimen (specimen) 04/22/2011 5:06 AM EST 04/22/2011 5:06 AM EST Lexi Read MD POINT OF CARE TEST O JESSICA Performing Organization Address [facility] de Phone Number [facility] * (ABNORMAL) CARDIAC ENZYMES (04/22/2011 4:45 AM EST) [facility] Troponin-T 0.10(H) <=0.03 ng/mL [facility] Comment: 0.03 ng/mL: Represents the 99th percentile [...] consensus document of the Joint Society of Cardiology/[place] College [employer] Committee for the redefinition of myocardial infarction. Journal of the [place] College [employer]iology 2000; 36: 959-969] Creatine Kinase 2128(H) 0 - 160 unit/L [facility] MILLENNIUM Comment:rechecked - llu Blood specimen (specimen) 04/22/2011 4:45 AM EST 04/22/2011 5:11 AM EST Siria Fuller MD CHEMISTRY ORDERABLES [facility] * (ABNORMAL) Basic Metabolic Panel (non-fasting) (04/22/2011 4:45 AM EST) Glucose 146 60 - 199 mg/dL CERNER [...] Fuller MD CHEMISTRY ORDERABLES Performing Organization Address [facility] de Phone Number [facility] [employer] [place] [facility] * POCT GLUCOSE LAB USE ONLY (04/22/2011 3:59 AM EST) Glucose, POC 130 60 - 199 mg/dL [facility] Comment: Supplemental ranges: <110 mg/dL before meals <200 mg/dL all other times of the day Blood specimen (specimen) 04/22/2011 3:59 AM EST 04/22/2011 3:59 AM EST Lexi Read MD POINT OF CARE TEST O RDERABLES Performing Organization Address [facility] de Phone Number [facility] [employer] [place] [facility] * POCT GLUCOSE LAB USE ONLY (04/22/2011 3:11 AM EST) Glucose, POC 123 60 - 199 mg/dL [facility] Comment: Supplemental ranges: <110 mg/dL before meals <200 mg/dL all other times of the day Blood specimen (specimen) 04/22/2011 3:11 AM EST 04/22/2011 3:11 AM EST Lexi Read MD POINT OF CARE TEST O RDERABLES Performing Organization Address [facility] Co de Phone Number [facility] * POCT GLUCOSE LAB USE ONLY (04/22/2011 2:02 AM EST) Glucose, POC 138 60 - 199 mg/dL [facility] Comment: Supplemental ranges: <110 mg/dL before meals <200 mg/dL all other times of the day Blood specimen (specimen) 04/22/2011 2:02 AM EST 04/22/2011 2:02 AM EST Lexi Read MD POINT OF CARE TEST O RDERARADHA Performing Organization Address [facility] de Phone Number [facility] * POCT GLUCOSE LAB USE ONLY (04/22/2011 1:03 AM EST) Glucose, POC 153 60 - 199 mg/dL [facility] Comment: Supplemental ranges: <110 mg/dL before meals <200 mg/dL all other times of the day Blood specimen (specimen) 04/22/2011 1:03 AM EST 04/22/2011 1:03 AM EST Lexi Read MD POINT OF CARE TEST O RDERABLES Performing Organization Address [facility] de Phone Number [facility] * POCT GLUCOSE LAB USE ONLY (04/21/2011 11:39 PM EST) Glucose, POC 164 60 - 199 mg/dL [facility] Comment: Supplemental ranges: <110 mg/dL before meals <200 mg/dL all other times of the day Blood specimen (specimen) 04/21/2011 11:39 PM EST 04/21/2011 11:39 PM EST Lexi Read MD POINT OF CARE TEST O RDERABLES Performing Organization Address [facility] Co de Phone Number [facility] * (ABNORMAL) BLOOD GAS 2 ARTERIAL (04/21/2011 11:38 PM EST) pH, Arterial 7.44 CERNER MILLENNIUM PCO2, Arterial 26(L) mmHg CERNE R MILLENNIUM PO2, Arterial 97 mmHg CERNER MILLENNIUM Bicarbonate, Arterial 16.9(L) mmol/L CERNER MILLENNIUM Base Excess, Arterial -7.2(L) mmol/L CERNER MILLENNIUM Hgb Blood Gas 8.9(L) gm/dL CERNER MILLENNIUM Comment: Total Hemoglobin (in gm/dL) ?Based on [facility] Hematology ranges: ?Age ?Reference Range Less than [...] CARE TEST O RDERABLES Performing Organization Address [facility] de Phone Number [facility] [employer] * (ABNORMAL) POCT GLUCOSE LAB USE ONLY (04/21/2011 9:24 PM EST) Glucose, POC 295(H) 60 - 199 mg/dL [facility] [employer] Comment: Supplemental ranges: <110 mg/dL before meals <200 mg/dL all other times of the day Blood specimen (specimen) 04/21/2011 9:24 PM EST 04/21/2011 9:24 PM EST Lexi Read MD POINT OF CARE TEST O RDERARADHA Performing Organization Address [facility] de Phone Number [facility] [employer] * POCT GLUCOSE LAB USE ONLY (04/21/2011 8:41 PM EST) Glucose, POC 192 60 - 199 mg/dL [facility] [employer] Comment: Supplemental ranges: <110 mg/dL before meals <200 mg/dL all other times of the day Blood specimen (specimen) 04/21/2011 8:41 PM EST 04/21/2011 8:41 PM EST Lexi Read MD POINT OF CARE TEST O RDERARADHA Performing Organization Address [facility] de Phone Number JOHN DE LEON * POCT GLUCOSE LAB USE ONLY (04/21/2011 7:05 PM EST) Pathologist [facility] Glucose, POC 131 60 - 199 mg/dL JOHN SRIDHARCONNOR Comment: Supplemental ranges: <110 mg/dL before meals <200 mg/dL all other times of the day Blood specimen (specimen) 04/21/2011 7:05 PM EST 04/21/2011 7:05 PM EST Lexi Read MD POINT OF CARE TEST O RDERABLES Performing Organization Address [facility] Phone Number JOHN DE LEON * (ABNORMAL) CARDIAC ENZYMES (04/21/2011 6:45 PM EST) [facility] Troponin-T 0.13(H) <=0.03 ng/mL [facility] Comment: result rechecked, blr 0.03 ng/mL: [...] consensus document of the Joint Society of Cardiology/[place] College of Cardiology Committee for the redefinition of myocardial infarction. Journal of the [place] College of Cardiology 2000; 36: 959-969] Creatine Kinase 2622(H) 0 - 160 unit/L [facility] [employer] Comment:result rechecked, bl r Blood specimen (specimen) 04/21/2011 6:45 PM EST 04/21/2011 7:06 PM EST Lexi Read MD CHEMISTRY ORDERABLES Performing Organization Address [facility] de Phone Number [facility] * Potassium (04/21/2011 6:45 PM EST) Potassium 4.6 3.5 - 5.0 mmol/L [facility] Comment: Please note: ??Patients with WBC >100,000 may have falsely elevated Potassium levels. ??For accurate Potassium quantification in these patients send serum separator tube (gold top) for subsequent determinations. ??Contact the Clinical Chemistry Laboratory if there are any questions. Blood specimen (specimen) 04/21/2011 6:45 PM EST 04/21/2011 7:06 PM EST Lexi Read MD CHEMISTRY ORDERABLES Performing Organization Address [facility] Phone Number [facility] * POCT GLUCOSE LAB USE ONLY (04/21/2011 6:05 PM EST) Glucose, POC 113 60 - 199 mg/dL [facility] Comment: Supplemental ranges: <110 mg/dL before meals <200 mg/dL all other times of the day Blood specimen (specimen) 04/21/2011 6:05 PM EST 04/21/2011 6:05 PM EST Lexi Read MD POINT OF CARE TEST O RDERABLES Performing Organization Address [facility] Phone Number [facility] * POCT GLUCOSE LAB USE ONLY (04/21/2011 5:05 PM EST) Glucose, POC 117 60 - 199 mg/dL [facility] Comment: Supplemental ranges: <110 mg/dL before meals <200 mg/dL all other times of the day Blood specimen (specimen) 04/21/2011 5:05 PM EST 04/21/2011 5:05 PM EST Lexi Read MD POINT OF CARE TEST O RDERABLES Performing Organization Address [facility] Phone Number [facility] * POCT GLUCOSE LAB USE ONLY (04/21/2011 3:55 PM EST) Glucose, POC 141 60 - 199 mg/dL [facility] MILLENNIUM Comment: Supplemental ranges: <110 mg/dL before meals <200 mg/dL all other times of the day Blood specimen (specimen) 04/21/2011 3:55 PM EST 04/21/2011 3:55 PM EST Lexi Read MD POINT OF CARE TEST O RDKATHY Performing Organization Address [facility] Phone Number [facility] MILLENNIUM * POCT GLUCOSE LAB USE ONLY (04/21/2011 2:57 PM EST) Glucose, POC 150 60 - 199 mg/dL [facility] MILLBANNERIUM Comment: Supplemental ranges: <110 mg/dL before meals <200 mg/dL all other times of the day Blood specimen (specimen) 04/21/2011 2:57 PM EST 04/21/2011 2:57 PM EST Lexi Read MD POINT OF CARE TEST O JESSICA Performing Organization Address [facility] Phone Number [facility] MILLENNIUM * Microalbumin, urine, random (04/21/2011 1:06 PM EST) Creatinine, Urine 151 mg/dL CE RNER MILLENNIUM Albumin, Urine 392.0 mg/L CERNE R MILLENNIUM Albumin / Creatinin Ratio, Urine 260 mcg/mg Cr [facility] MILLENNIUM Comment: Reference Range* Random collection (mcg/mg creatinine) Normal ?<30 Microalbuminuria ?? 30 - 300 Clinical Albuminuria ?? >300 *[place] [employer]. Diabetic Nephropathy. Diabetes Care 1997;(Suppl 1):S24-S27 Exercise within 24 hour, infection, fever, CHF, marked hyperglycemia, and marked hypertension may elevate urinary albumin excretion over baseline values. Urine specimen (specimen) 04/21/2011 1:06 PM EST 04/21/2011 2:31 PM EST Siria Fuller MD URINE ORDERABLES Performing Organization Address [facility] Phone Number [facility] SRIDHARENNIUM * POCT GLUCOSE LAB USE ONLY (04/21/2011 12:46 PM EST) Glucose, POC 174 60 - 199 mg/dL [facility] Comment: Supplemental ranges: <110 mg/dL before meals <200 mg/dL all other times of the day Blood specimen (specimen) 04/21/2011 12:46 PM EST 04/21/2011 12:46 PM EST Lexi Read MD POINT OF CARE TEST O JESSICA Performing Organization Address [facility] de Phone Number [facility] * POCT GLUCOSE LAB USE ONLY (04/21/2011 11:55 AM EST) Glucose, POC 173 60 - 199 mg/dL [facility] Comment: Supplemental ranges: <110 mg/dL before meals <200 mg/dL all other times of the day Blood specimen (specimen) 04/21/2011 11:55 AM EST 04/21/2011 11:55 AM EST Lexi Read MD POINT OF CARE TEST O JESSICA Performing Organization Address [facility] de Phone Number [facility] [employer] [place] [facility] * POCT GLUCOSE LAB USE ONLY (04/21/2011 11:13 AM EST) Glucose, POC 169 60 - 199 mg/dL [facility] Comment: Supplemental ranges: <110 mg/dL before meals <200 mg/dL all other times of the day Blood specimen (specimen) 04/21/2011 11:13 AM EST 04/21/2011 11:13 AM EST Lexi Read MD POINT OF CARE TEST O JESSICA Performing Organization Address [facility] de Phone Number [facility] * (ABNORMAL) POCT GLUCOSE LAB USE ONLY (04/21/2011 9:38 AM EST) Glucose, POC 222(H) 60 - 199 mg/dL [facility] Comment: Supplemental ranges: <110 mg/dL before meals <200 mg/dL all other times of the day Blood specimen (specimen) 04/21/2011 9:38 AM EST 04/21/2011 9:38 AM EST Lexi Read MD POINT OF CARE TEST O RDERABLES Performing Organization Address [facility] de Phone Number [facility] * (ABNORMAL) POCT GLUCOSE LAB USE ONLY (04/21/2011 8:34 AM EST) Glucose, POC 208(H) 60 - 199 mg/dL [facility] Comment: Supplemental ranges: <110 mg/dL before meals <200 mg/dL all other times of the day Blood specimen (specimen) 04/21/2011 8:34 AM EST 04/21/2011 8:34 AM EST Narrative Authorizing Provider Result Flavia Read MD POINT OF CARE TEST O RDERARADHA Performing Organization Address [facility] Phone Number [facility] * POCT GLUCOSE LAB USE ONLY (04/21/2011 6:45 AM EST) Glucose, POC 190 60 - 199 mg/dL [facility] Comment: Supplemental ranges: <110 mg/dL before meals <200 mg/dL all other times of the day Blood specimen (specimen) 04/21/2011 6:45 AM EST 04/21/2011 6:45 AM EST Narrative Authorizing Provider Result Flavia Read MD POINT OF CARE TEST O RDERARADHA Performing Organization Address [facility] de Phone Number [facility] * POCT GLUCOSE LAB USE ONLY (04/21/2011 4:48 AM EST) Glucose, POC 126 60 - 199 mg/dL [facility] Comment: Supplemental ranges: <110 mg/dL before meals <200 mg/dL all other times of the day Blood specimen (specimen) 04/21/2011 4:48 AM EST 04/21/2011 4:48 AM EST Lexi Read MD POINT OF CARE TEST O RDERABLES Performing Organization Address [facility] de Phone Number [facility]ERMAGDALENA WALLERENNIUM * (ABNORMAL) PHOSPHORUS (04/21/2011 4:45 AM EST) Phosphorus 1.6(L) 2.5 - 4.5 mg/dL CERNER MILLENNIUM Blood specimen (specimen) 04/21/2011 4:45 AM EST 04/21/2011 5:04 AM EST Lexi Read MD CHEMISTRY ORDERABLES Performing Organization Address [facility] de Phone Number CERMAGDALENA WALLERENNIUM * MAGNESIUM (04/21/2011 4:45 AM EST) Magnesium 0.75 0.69 - 1.07 mmol/L CERNER MILLENNIUM Blood specimen (specimen) 04/21/2011 4:45 AM EST 04/21/2011 5:04 AM EST Lexi Read MD CHEMISTRY ORDERABLES Performing Organization Address [facility] de Phone Number [facility]ER[facility]DALENA WALLERENNIUM * (ABNORMAL) BASIC METABOLIC PANEL (NON-FASTING) (04/21/2011 4:45 AM EST) Glucose 175 60 - 199 mg/dL CERNER MILLENNIUM Comment:Diabetes: >=200 mg/d L plus symptoms Blood Urea Nitrogen 27(H) 8 - 18 mg/dL CERNER MILLENNIUM Creatinine 1.16 0.70 - 1.20 mg/dL CERNER [...] AM EST Lexi Read MD CHEMISTRY ORDERABLES JOHN WALLERLEANNEIUM * Vancomycin, trough (04/21/2011 4:45 AM EST) Vancomycin, Trough 16.0 mg/L Aminta DE LEON Comment: Therapeutic range [...] Read MD CHEMISTRY ORDERABLES Performing Organization Address [facility] de Phone Number [employer] * POCT GLUCOSE LAB USE ONLY (04/21/2011 3:42 AM EST) [facility] Glucose, POC 128 60 - 199 mg/dL JOHN [employer] Comment: Supplemental ranges: <110 mg/dL before meals <200 mg/dL all other times of the day Blood specimen (specimen) 04/21/2011 3:42 AM EST 04/21/2011 3:42 AM EST Lexi Read MD POINT OF CARE TEST O RDERABLES Performing Organization Address [facility] Phone Number [employer] * XR CHEST PA OR AP- 1 [...] interpretation reviewed by the attending Mau CORDOBA IMG DX ORDERABL ES * POCT GLUCOSE LAB USE ONLY (04/21/2011 2:20 AM EST) [facility] Glucose, POC 144 60 - 199 mg/dL [facility] Comment: Supplemental ranges: <110 mg/dL before meals <200 mg/dL all other times of the day Blood specimen (specimen) 04/21/2011 2:20 AM EST 04/21/2011 2:20 AM EST Lexi Read MD POINT OF CARE TEST O RDERABLES [facility] * (ABNORMAL) Cardiac Enzymes (04/21/2011 2:15 AM EST) [facility] Troponin-T 0.20(H) <=0.03 ng/mL [facility] Comment: 0.03 ng/mL: Represents the 99th percentile [...] consensus document of the Joint Society of Cardiology/[place] [employer]iology Committee for the redefinition of myocardial infarction. Journal of the [place] College [employer]iology 2000; 36: 959-969] Creatine Kinase 3108(H) 0 - 160 unit/L [facility] Comment:rechecked - llu Blood specimen (specimen) 04/21/2011 2:15 AM EST 04/21/2011 2:53 AM EST Lexi Read MD CHEMISTRY ORDERABLES Performing Organization Address [facility]/ZIP Co de Phone Number [facility] Quickoffice * POCT GLUCOSE LAB USE ONLY (04/21/2011 1:13 AM EST) Glucose, POC 165 60 - 199 mg/dL [facility] Comment: Supplemental ranges: <110 mg/dL before meals <200 mg/dL all other times of the day Blood specimen (specimen) 04/21/2011 1:13 AM EST 04/21/2011 1:13 AM EST Lexi Read MD POINT OF CARE TEST O RDERABLES Performing Organization Address [facility] Co de Phone Number [facility] [employer]office * (ABNORMAL) HEMOGLOBIN A1C (04/21/2011 1:00 AM EST) Hemoglobin A1c 9.3(H) 4.3 - 6.1 % [facility] [employer] [facility] Estimated Average Glucose 220 mg/dL [facility] [employer] [facility] Comment: eAG equivalents for HbA1c percentages: [...] into estimated average glucose values. ??Diabetes Care 2008:31(8):6940-3331. Blood specimen (specimen) 04/21/2011 1:00 AM EST 04/21/2011 9:17 AM EST Siria Fuller MD CHEMISTRY ORDERABLES JOHN EVANSIUM * (ABNORMAL) DIFFERENTIAL, AUTOMATED (04/21/2011 1:00 AM [...] 0.05 0.00 - 0.05 x10(3)/mc L CERNER SRIDHARENNIUM Blood specimen (specimen) 04/21/2011 1:00 AM EST 04/21/2011 1:10 AM EST Siria Fuller MD HEMATOLOGY ORDERABLE S Performing Organization Address [facility] Co de Phone Number JOHN DE LEON * (ABNORMAL) Phosphorus (04/21/2011 1:00 AM EST) Phosphorus 2.2(L) 2.5 - 4.5 mg/dL JOHN EVANSIUM Blood specimen (specimen) 04/21/2011 1:00 AM EST 04/21/2011 1:10 AM EST Siria Fuller MD CHEMISTRY ORDERABLES Performing Organization Address [facility] Co de Phone Number JOHN EVANSIUM * Magnesium (04/21/2011 1:00 AM EST) Magnesium 0.77 0.69 - 1.07 mmol/L JOHN WALLERENNIUM Blood specimen (specimen) 04/21/2011 1:00 AM EST 04/21/2011 1:10 AM EST Siria Fuller MD CHEMISTRY ORDERABLES CERMAGDALENA EVANSIUM * (ABNORMAL) Basic Metabolic Panel (non-fasting) (04/21/2011 [...] Fuller MD CHEMISTRY ORDERABLES Performing Organization Address [facility] Co de Phone Number [facility] EVANSI[facility] * Beta Hydroxybutyrate (04/21/2011 1:00 AM EST) Beta-hydroxybu turate 0.11 0.00 - 0.30 mmol/L CERNER MILLENNIUM Comment: Reference range: ??0.00-0.30 mmo1/L, based on an overnight fast. ??Children may be higher. Blood specimen (specimen) 04/21/2011 1:00 AM EST 04/21/2011 1:10 AM EST Siria Fuller MD CHEMISTRY ORDERABLES Performing Organization Address [facility] Co de Phone Number [facility] EVANSI[facility] * (ABNORMAL) CBC (with Diff) (04/21/2011 1:00 [...] Platelet Volume 9.0 9.0 - 12.0 fL [facility] MILLENNIUM Blood specimen (specimen) 04/21/2011 1:00 AM EST 04/21/2011 1:10 AM EST Siria Fuller MD HEMATOLOGY ORDERABLE S Performing Organization Address [facility] Phone Number [facility] * Lactic acid, plasma (04/21/2011 12:28 AM EST) Lactic Acid 0.7 0.5 - 2.2 mmol/L [facility] Blood specimen (specimen) 04/21/2011 12:28 AM EST 04/21/2011 12:32 AM EST Lexi Read MD CHEMISTRY ORDERABLES Performing Organization Address [facility] Phone Number [facility] * POCT GLUCOSE LAB USE ONLY (04/21/2011 12:23 AM EST) Glucose, POC 164 60 - 199 mg/dL [facility] Comment: Supplemental ranges: <110 mg/dL before meals <200 mg/dL all other times of the day Blood specimen (specimen) 04/21/2011 12:23 AM EST 04/21/2011 12:23 AM EST Lexi Read MD POINT OF CARE TEST O RDERABLES Performing Organization Address [facility] Phone Number CERNER MILLENNIUM * POCT GLUCOSE LAB USE ONLY (04/20/2011 11:16 PM EST) Glucose, POC 129 60 - 199 mg/dL CERNER MILLENNIUM Comment: Supplemental ranges: <110 mg/dL before meals <200 mg/dL all other times of the day Blood specimen (specimen) 04/20/2011 11:16 PM EST 04/20/2011 11:16 PM EST Lexi Read MD POINT OF CARE TEST O RDKATHY Performing Organization Address [facility] Co de Phone Number [facility] WALLERENNIUM * POCT GLUCOSE LAB USE ONLY (04/20/2011 10:11 PM EST) Glucose, POC 129 60 - 199 mg/dL CERNER MILLENNIUM Comment: Supplemental ranges: <110 mg/dL before meals <200 mg/dL all other times of the day Blood specimen (specimen) 04/20/2011 10:11 PM EST 04/20/2011 10:11 PM EST Lexi Read MD POINT OF CARE TEST O JESSICA Performing Organization Address [facility] de Phone Number CERNER MILLENNIUM * (ABNORMAL) BLOOD GAS 2 ARTERIAL (04/20/2011 8:54 PM EST) pH, Arterial 7.27(Criti sang) CERNER MILLENNIUM Comment:Noted by instrument shop supervisor. PCO2, Arterial 29(L) mmHg CERNE R MILLENNIUM PO2, Arterial 106(H) mmHg CERNER MILLENNIUM Bicarbonate, Arterial 12.8(L) mmol/L CERNER MILLENNIUM Base Excess, Arterial -14.1(L) mmol/L CERNER MILLENNIUM Hgb Blood Gas 8.7(L) gm/dL CERNER MILLENNIUM Comment: Total Hemoglobin (in gm/dL) ?Based on [facility] Hematology ranges: ?Age ?Reference Range Less than [...] CARE TEST O RDERABLES Performing Organization Address [facility] Phone Number [facility] * POCT GLUCOSE LAB USE ONLY (04/20/2011 8:52 PM EST) Glucose, POC 125 60 - 199 mg/dL [facility] Comment: Supplemental ranges: <110 mg/dL before meals <200 mg/dL all other times of the day Blood specimen (specimen) 04/20/2011 8:52 PM EST 04/20/2011 8:52 PM EST Lexi Read MD POINT OF CARE TEST O RDERABLES Performing Organization Address [facility] Phone Number [facility] * (ABNORMAL) Phosphorus (04/20/2011 7:45 PM EST) Phosphorus 1.5(L) 2.5 - 4.5 mg/dL [facility] Blood specimen (specimen) 04/20/2011 7:45 PM EST 04/20/2011 7:55 PM EST Lexi Read MD CHEMISTRY ORDERABLES Performing Organization Address [facility] Phone Number [facility] * Magnesium (04/20/2011 7:45 PM EST) Magnesium 0.78 0.69 - 1.07 mmol/L [facility] Blood specimen (specimen) 04/20/2011 7:45 PM EST 04/20/2011 7:55 PM EST Lexi Read MD CHEMISTRY ORDERABLES Performing Organization Address [facility] Phone Number [facility] * (ABNORMAL) Basic Metabolic Panel (non-fasting) (04/20/2011 7:45 PM EST) Glucose 120 60 - 199 mg/dL [facility] Comment:Diabetes: >=200 mg/d L plus symptoms Blood [...] Read MD CHEMISTRY ORDERABLES Performing Organization Address [facility] Phone Number [facility] * POCT GLUCOSE LAB USE ONLY (04/20/2011 7:44 PM EST) Glucose, POC 125 60 - 199 mg/dL [facility] Comment: Supplemental ranges: <110 mg/dL before meals <200 mg/dL all other times of the day Blood specimen (specimen) 04/20/2011 7:44 PM EST 04/20/2011 7:44 PM EST Lexi Read MD POINT OF CARE TEST O RDERABLES Performing Organization Address [facility] Phone Number [facility] * POCT GLUCOSE LAB USE ONLY (04/20/2011 6:43 PM EST) Glucose, POC 112 60 - 199 mg/dL [facility] Comment: Supplemental ranges: <110 mg/dL before meals <200 mg/dL all other times of the day Blood specimen (specimen) 04/20/2011 6:43 PM EST 04/20/2011 6:43 PM EST Lexi Read MD POINT OF CARE TEST O RDERARADHA Performing Organization Address [facility] de Phone Number [facility] * POCT GLUCOSE LAB USE ONLY (04/20/2011 5:50 PM EST) Glucose, POC 105 60 - 199 mg/dL [facility] Comment: Supplemental ranges: <110 mg/dL before meals <200 mg/dL all other times of the day Blood specimen (specimen) 04/20/2011 5:50 PM EST 04/20/2011 5:50 PM EST Lexi Read MD POINT OF CARE TEST O RDERABLES Performing Organization Address [facility] de Phone Number JOHN DE LEON * (ABNORMAL) CARDIAC ENZYMES (04/20/2011 5:45 PM EST) Pathologist [facility] Troponin-T 0.35(H) <=0.03 ng/mL JOHN SRIDHARLEANNEIUM Comment: 0.03 ng/mL: Represents the 99th percentile [...] consensus document of the Joint Society of Cardiology/[place] College [employer] Committee for the redefinition of myocardial infarction. Journal of the [place] College [employer] 2000; 36: 959-969] Creatine Kinase 2218(H) 0 - 160 unit/L JOHN SRIDHARLEANNEIUM Comment:result rechecked NM Blood specimen (specimen) 04/20/2011 5:45 PM EST 04/20/2011 6:05 PM EST Lexi Read MD CHEMISTRY ORDERABLES Performing Organization Address [facility] de Phone Number JOHN DE LEON * (ABNORMAL) DIFFERENTIAL, AUTOMATED (04/20/2011 5:45 PM EST) Neutrophil % 89.8(H) 34.0 - 71.0 % [facility] MILLENNIUM Neutrophil Absolute 18.10(H) 1.50 - 6.30 [...] MD HEMATOLOGY ORDERABLE S Performing Organization Address City/[facility]/ZIP Co de Phone Number JOHN EVANSIUM * Lactic acid, plasma (04/20/2011 5:45 PM EST) Lactic Acid 0.9 0.5 - 2.2 mmol/L CERNER MILLENNIUM Blood specimen (specimen) 04/20/2011 5:45 PM EST 04/20/2011 6:01 PM EST Lexi Reda MD CHEMISTRY ORDERABLES CERMAGDALENA WALLERENNIUM * (ABNORMAL) CBC (with Diff) (04/20/2011 5:45 [...] MD HEMATOLOGY ORDERABLE S Performing Organization Address City/[facility] Co de Phone Number [facility] * Beta Hydroxybutyrate (04/20/2011 5:45 PM EST) Beta-hydroxybu turate 0.10 0.00 - 0.30 mmol/L [facility] MILLENNIUM Comment: Reference range: ??0.00-0.30 mmo1/L, based on an overnight fast. ??Children may be higher. Blood specimen (specimen) 04/20/2011 5:45 PM EST 04/20/2011 6:00 PM EST Lexi Read MD CHEMISTRY ORDERABLES Performing Organization Address [facility]/State/[facility] Co de Phone Number [facility] * (ABNORMAL) BLOOD GAS 2 VENOUS (04/20/2011 4:39 PM EST) pH, Venous 7.26(Criti sang) CERNER MILLENNIUM PCO2, Venous 44 mmHg CERNER MILLENNIUM PO2, Venous 30 mmHg CERNER MILLENNIUM Bicarbonate, Venous 19.5 mmol/L CERNER MILLENNIUM Base Excess, Venous -7.6 mmol/L CERNER MILLENNIUM Hgb Blood Gas 10.1(L) gm/dL CERNER MILLENNIUM Comment: Total Hemoglobin (in gm/dL) ?Based on [facility] Hematology ranges: ?Age ?Reference Range Less than [...] CARE TEST O RDERABLES Performing Organization Address [facility] de Phone Number [facility] [employer] [place] [facility] * (ABNORMAL) POCT GLUCOSE LAB USE ONLY (04/20/2011 4:38 PM EST) Glucose, POC 228(H) 60 - 199 mg/dL [facility] MILLBANNERIUM Comment: Supplemental ranges: <110 mg/dL before meals <200 mg/dL all other times of the day Blood specimen (specimen) 04/20/2011 4:38 PM EST 04/20/2011 4:38 PM EST Lexi Read MD POINT OF CARE TEST O RDERARADHA Performing Organization Address [facility] de Phone Number [facility] [employer] [place] [facility] * POCT GLUCOSE LAB USE ONLY (04/20/2011 4:05 PM EST) Glucose, POC 110 60 - 199 mg/dL [facility] MILLENNIUM Comment: Supplemental ranges: <110 mg/dL before meals <200 mg/dL all other times of the day Blood specimen (specimen) 04/20/2011 4:05 PM EST 04/20/2011 4:05 PM EST Lexi Read MD POINT OF CARE TEST O RDERABLES JOHN EVANSIUM * (ABNORMAL) Phosphorus (04/20/2011 4:00 PM EST) Phosphorus 1.2(Critic al) 2.5 - 4.5 mg/dL [facility]ERN[facility] MILLENNIUM Comment: Result rechecked. Called by: CINTHYA, Read back by:Cris Montejo, Date/Time:04/20/11 17:01. Blood specimen (specimen) 04/20/2011 4:00 PM EST 04/20/2011 4:15 PM EST Lexi Read MD CHEMISTRY ORDERABLES Performing Organization Address [facility] Co de Phone Number JOHN DE LEON * Magnesium (04/20/2011 4:00 PM EST) Magnesium 0.80 0.69 - 1.07 mmol/L CERNER MILLENNIUM Blood specimen (specimen) 04/20/2011 4:00 PM EST 04/20/2011 4:15 PM EST Lexi Read MD CHEMISTRY ORDERABLES Performing Organization Address [facility] Co de Phone Number [facility] DE LEON * (ABNORMAL) Basic Metabolic Panel (non-fasting) (04/20/2011 4:00 PM EST) Glucose 129 60 - 199 mg/dL CERNER MILLENNIUM Comment:Diabetes: [...] EST Lexi Read MD CHEMISTRY ORDERABLES JOHN DE LEON * (ABNORMAL) BLOOD GAS 2 ARTERIAL (04/20/2011 1:53 PM EST) pH, Arterial 7.28(Criti sang) CERNER MILLENNIUM PCO2, Arterial 39 mmHg CERNE R MILLENNIUM PO2, Arterial 108(H) mmHg CERNER MILLENNIUM Bicarbonate, Arterial 18.0(L) mmol/L CERNER MILLENNIUM Base Excess, Arterial -8.8(L) mmol/L CERNER MILLENNIUM Hgb Blood Gas 10.2(L) gm/dL CERNER MILLENNIUM Comment: Total Hemoglobin (in gm/dL) ?Based on [facility] Hematology ranges: ?Age ?Reference Range Less than [...] CARE TEST O RDERABLES Performing Organization Address [facility] de Phone Number [facility] SRIDHARENNIUM * POCT GLUCOSE LAB USE ONLY (04/20/2011 1:48 PM EST) Glucose, POC 179 60 - 199 mg/dL [facility] MILLENNIUM Comment: Supplemental ranges: <110 mg/dL before meals <200 mg/dL all other times of the day Blood specimen (specimen) 04/20/2011 1:48 PM EST 04/20/2011 1:48 PM EST Lexi Read MD POINT OF CARE TEST O RDERABLES Performing Organization Address [facility] de Phone Number [facility] SRIDHARBANNERIUM * Vancomycin, trough (04/20/2011 1:40 PM EST) Vancomycin, Trough 17.1 mg/L C ERNER MILLENNIUM Comment: Therapeutic range for complicated infections such [...] EST Lexi Read MD CHEMISTRY ORDERABLES JOHN DE LEON * Echo Transthoracic (Complete) (04/20/2011 1:23 PM EST) EF 70 [facility] Anatomical Region Laterality Modality Other 04/20/2011 Narrative 04/20/2011 2:13 PM EST Procedure: ? Transthoracic Echocardiogram Patient: ? BETTIE Ramirez ?(Age): 1955(55) Med Rec#: ?[id number] ? Sex: ?F ? Site Loc: ?[facility] ? Ht / Wt: ??(cm)/82(kg) ? Pt. Loc: ?BSA: ? Study Date: ?04/20/2011 ? Pt. Type: Inpatient Tape: ? Referring: Santy King ([id number]) Bar Pilot: Ruiz Casper JOHN Interpreting Fellow: Santy King ([id number]) Diagnosis: ??Shock/hypotension (785.5) CPT Code(s): ??Echo Full (25330), ??Spectral Doppler (13694), ??Color Doppler (65666), Indication(s): ??LV ejection fraction Rhythm: HR ?BP [...] ? Mid-Inferior ?Normal ? Mid-Inferoseptal ?Normal ? Chestnut-Septal ? Normal ? Chestnut-Anterior ? Normal ? Chestnut-Lateral ?Normal ? Chestnut-Inferior ? Normal ? Chestnut-Tip ?Normal ? Chambers ?Value ?Units (Range) ? [...] been electronically signed by: Jann Baker MD ? 04/20/2011 14:11:39 Images reviewed and interpretation verified [facility] Cardiac Ultrasound Laboratory Resulting Agency Comment 1X Procedure Note Jann Baker MD - 04/20/2011 Procedure: Transthoracic Echocardiogram Patient: BETTIE WEBSTER(Age): 1955(55) Med Rec#: [id number] Sex: F Site Loc: [facility] Ht / Wt: (cm)/82(kg) Pt. Loc: BSA: Study Date: 04/20/2011 Pt. Type: Inpatient Tape: Referring: Santy King ([id number]) Bar Pilot: Ruiz Casper [facility] Interpreting Fellow: Santy King ([id number]) Diagnosis: Shock/hypotension (785.5) CPT Code(s): Echo Full (91834), Spectral Doppler (29991), Color Doppler (83013), Indication(s): LV ejection fraction Rhythm: HR BP [...] Normal Mid-Posterolateral Normal Mid-Inferior Normal Mid-Inferoseptal Normal Chestnut-Septal Normal Chestnut-Anterior Normal Chestnut-Lateral Normal Chestnut-Inferior Normal Chestnut-Tip Normal Chambers Value Units (Range) LV EF [...] 04/20/2011 14:11:39 Images reviewed and interpretation verified [facility] Cardiac Ultrasound Laboratory Lexi Read MD ECHO ORDERABLES * POCT GLUCOSE LAB USE ONLY (04/20/2011 1:15 PM EST) [facility] Glucose, POC 180 60 - 199 mg/dL [facility] Comment: Supplemental ranges: <110 mg/dL before meals <200 mg/dL all other times of the day Blood specimen (specimen) 04/20/2011 1:15 PM EST 04/20/2011 1:15 PM EST Lexi Read MD POINT OF CARE TEST O RDERABLES Performing Organization Address City/State/[facility] Co de Phone Number [facility] * EKG 12 Lead (04/20/2011 12:25 PM EST) [facility] Ventricular rate 77 BPM MUSE SYSTEM Atrial Rate 77 BPM MUSE SYSTEM P-R Interval 144 ms MUSE SYSTEM QRS Duration 86 ms MUSE SYSTEM Q-T Interval 512 ms MUSE SYSTEM QTC Calculated (Bezet) 579 ms MUSE SYSTEM Calculated P Harriet 55 degrees MUSE SYSTEM Calculated R Harriet 30 degrees MUSE SYSTEM Calculated T Harriet 44 degrees MUSE SYSTEM INTERPRETATION Normal sinus rhythm Low voltage QRS Prolonged QT Abnormal ECG When compared with ECG of 19-APR-2011 20:47, (unconfirmed) QT has lengthened Confirmed by MD ALEAH, MARTINA ([id number]) on 04/20/2011 4:22:31 PM MUSE SYSTEM 04/20/2011 12:2 5 PM EST 04/20/2011 4:22 PM EST Lexi Read MD ECG ORDERABLES [facility] * POCT GLUCOSE LAB USE ONLY (04/20/2011 12:21 PM EST) Glucose, POC 181 60 - 199 mg/dL CERNER MILLENNIUM Comment: Supplemental ranges: <110 mg/dL before meals <200 mg/dL all other times of the day Blood specimen (specimen) 04/20/2011 12:21 PM EST 04/20/2011 12:21 PM EST Lexi Read MD POINT OF CARE TEST O RDERABLES Performing Organization Address City/[facility]/ZIP Co de Phone Number CERNER MILLENNIUM * (ABNORMAL) DIFFERENTIAL, AUTOMATED (04/20/2011 12:06 PM EST) Neutrophil % 84.1(H) 34.0 - 71.0 % [...] MD HEMATOLOGY ORDERABLE S CERMAGDALENA WALLERENNIUM * Lactic acid, plasma (04/20/2011 12:06 PM [...] Standard Deviation 46.2(H) 35.0 - 46.0 fL [facility] MILLBANNERIUM RDW coefficient of variation 16.8(H) 10.9 - 14.4 % [facility] MILLBANNERIUM Mean Platelet Volume 8.3(L) 9.0 - 12.0 fL [facility] MILLENNIUM Blood specimen (specimen) 04/20/2011 12:06 PM EST 04/20/2011 12:27 PM EST Lexi Read MD HEMATOLOGY ORDERABLE S Performing Organization Address [facility] de Phone Number [facility] * LIPASE (04/20/2011 12:00 PM EST) Lipase 12 0 - 60 unit/L [facility] Blood specimen (specimen) 04/20/2011 12:00 PM EST 04/20/2011 12:29 PM EST Lexi Read MD CHEMISTRY ORDERABLES Performing Organization Address [facility] de Phone Number [facility] * (ABNORMAL) AMYLASE (04/20/2011 12:00 PM EST) Amylase 245(H) 28 - 100 unit/L [facility] Blood specimen (specimen) 04/20/2011 12:00 PM EST 04/20/2011 12:29 PM EST Lexi Read MD CHEMISTRY ORDERABLES Performing Organization Address [facility] de Phone Number [facility] * BETA HYDROXYBUTYRATE (04/20/2011 12:00 PM EST) Beta-hydroxybu turate <0.10 0.00 - 0.30 mmol/L [facility] Comment: Reference range: ??0.00-0.30 mmo1/L, based on an overnight fast. ??Children may be higher. Blood specimen (specimen) 04/20/2011 12:00 PM EST 04/20/2011 12:27 PM EST Lexi Read MD CHEMISTRY ORDERABLES Performing Organization Address [facility] de Phone Number JOHN EVANSIUM * (ABNORMAL) Phosphorus (04/20/2011 12:00 PM EST) Phosphorus 1.3(Critic al) 2.5 - 4.5 mg/dL CERNER MILLENNIUM Comment: Result rechecked. Called by: MARION, Read back by: Lili Clemons, Date/Time:04/20/11 13:13. Blood specimen (specimen) 04/20/2011 12:00 PM EST 04/20/2011 12:27 PM EST Lexi Read MD CHEMISTRY ORDERABLES Performing Organization Address [facility] de Phone Number JOHN ED LEON * (ABNORMAL) Magnesium (04/20/2011 12:00 PM EST) Magnesium 0.68(L) 0.69 - 1.07 mmol/L CERNER MILLENNIUM Blood specimen (specimen) 04/20/2011 12:00 PM EST 04/20/2011 12:27 PM EST Lexi Read MD CHEMISTRY ORDERABLES Performing Organization Address [facility] de Phone Number JOHN DE LEON * (ABNORMAL) Basic Metabolic Panel (non-fasting) (04/20/2011 [...] EST Lexi Read MD CHEMISTRY ORDERABLES JOHN DE LEON * Prepare RBC (04/20/2011 11:45 AM EST) Dispensed? Yes [facility] Blood specimen (specimen) 04/20/2011 11:45 AM EST 04/20/2011 11:44 AM EST Lexi Read MD BLOOD BANK PRODUCT O RDERABLES [facility] * (ABNORMAL) POCT GLUCOSE LAB USE ONLY (04/20/2011 11:17 AM EST) Glucose, POC 204(H) 60 - 199 mg/dL [facility] Comment: Supplemental ranges: <110 mg/dL before meals <200 mg/dL all other times of the day Blood specimen (specimen) 04/20/2011 11:17 AM EST 04/20/2011 11:17 AM EST Lexi Read MD POINT OF CARE TEST O RDERARADHA Performing Organization Address [facility] Co de Phone Number [facility] * Blood culture (04/20/2011 11:00 AM EST) Pathologist [facility] Blood Culture ? Patient Name: ROXANN BAXTER ? Ordered By: LEXI READ ? MR#: [id number] ?LOC: ??1EST ? /Sex: ??1955 (55 years), ? Female ? PROCEDURE: Blood Culture ?SOURCE: Blood ? COLLECTED: 04/20/2011 11:00 ? BODY SITE: Arterial Line ? STARTED: 04/20/2011 11:29 ? FINAL REPORT ? Final Report ? Verified:2011 15:06 ? No growth at 5 days. ? PRELIMINARY REPORT ? Preliminary Report ? Verified:2011 15:07 ? No growth at 4 days. ? [facility] Blood specimen (specimen) ARTERIAL LINE / Unknown 04/20/2011 11:00 AM EST 04/20/2011 11:29 AM EST Lexi Read MD MICROBIOLOGY - BLOOD ORDERABLES Performing Organization Address [facility] Phone Number [facility] * (ABNORMAL) POCT GLUCOSE LAB USE ONLY (04/20/2011 10:11 AM EST) Pathologist [facility] Glucose, POC 250(H) 60 - 199 mg/dL [facility] Comment: Supplemental ranges: <110 mg/dL before meals <200 mg/dL all other times of the day Blood specimen (specimen) 04/20/2011 10:11 AM EST 04/20/2011 10:11 AM EST Lexi Read MD POINT OF CARE TEST O RDERABLES Performing Organization Address [facility] Phone Number [facility] * (ABNORMAL) Cardiac Enzymes (04/20/2011 10:00 AM EST) Troponin-T 0.48(H) <=0.03 ng/mL [facility] Comment: 0.03 ng/mL: Represents the 99th percentile [...] consensus document of the Joint Society of Cardiology/[place] [employer] Committee for the redefinition of myocardial infarction. Journal of the [place] [employer] 2000; 36: 959-969] Creatine Kinase 1576(H) 0 - 160 unit/L JOHN EVANSIUM Blood specimen (specimen) 04/20/2011 10:00 AM EST 04/20/2011 10:34 AM EST Lexi Read MD CHEMISTRY ORDERABLES [facility] NATHANIUM * Blood culture (04/20/2011 10:00 AM EST) Blood Culture ? Patient Name: ROXANN BAXTER ? Ordered By: LEXI READ ? MR#: [id number] ?LOC: ??1EST ? /Sex: ??1955 (55 years), ? Female ? PROCEDURE: Blood Culture ?SOURCE: Blood ? COLLECTED: 04/20/2011 10:00 ? BODY SITE: Arterial Line ? STARTED: 04/20/2011 11:21 ? FINAL REPORT ? Final Report ? Verified:2011 15:06 ? No growth at 5 days. ? PRELIMINARY REPORT ? Preliminary Report ? Verified:2011 15:07 ? No growth at 4 days. ? [facility] Blood specimen (specimen) ARTERIAL LINE / Unknown 04/20/2011 10:00 AM EST 04/20/2011 11:20 AM EST Lexi Read MD MICROBIOLOGY - BLOOD ORDERABLES Performing Organization Address [facility] de Phone Number [facility] * Vancomycin, trough (04/20/2011 10:00 AM EST) Vancomycin, Trough 20.0 mg/L C NERY SRIDHARLEANNEIUM Comment: Therapeutic range for complicated infections such [...] Read MD CHEMISTRY ORDERABLES Performing Organization Address [facility] de Phone Number [facility] * Urine culture Indwelling Catheter Urine (04/20/2011 9:25 AM EST) Urine Culture ? Patient Name: ROXANN BAXTER ? Ordered By: LEXI READ ? MR#: [id number] ?LOC: ??ICUS ? /Sex: ?? (55 years), ? Female ? PROCEDURE: Urine Culture ?SOURCE: U ICath ? COLLECTED: 04/20/2011 09:25 ? STARTED: 04/20/2011 09:41 ? FINAL REPORT ? Final Report ? Verified: 08:59 ? No growth (Less than 1,000 cfu/ml). ? ____ [facility] Urine specimen obtained via indwelling urinary catheter (specimen) 04/20/2011 9:25 AM EST 04/20/2011 9:41 AM EST Lexi Read MD MICROBIOLOGY - GENER AL ORDERABLES [facility] * Rapid Respiratory Virus Antigen Panel Tracheal Aspirate (04/20/2011 9:24 AM EST) Respiratory Virus Rapid ? Patient Name: ROXANN BAXTER ? Ordered By: LEXI READ ? MR#: [id number] ?LOC: ??ICUS ? /Sex: ??1955 (55 years), [...] GENER AL ORDERABLES CERNER MILLENNIUM * (ABNORMAL) Urinalysis with microscopic (04/20/2011 9:24 AM EST) Glucose, Urine Dipstick 300(A) Negative mg/dL CERNER [...] Urine Dipstick Cloudy(A) Clear CERNER MILLENNIUM Specific [place] Urine Automated 1.017 1.002 - 1.030 CERNER [...] ? Ordered By: LEXI READ ? MR#: [id number] ?LOC: ??ICUS ? /Sex: ??1955 (55 years), [...] 7.32 - 7.42 CERNER MILLENNIUM Comment:Noted by instrument shop supervisor. PCO2, Venous 40(L) 41 - 51 mmHg CERNER MILLENNIUM PO2, Venous 32 25 - 40 mmHg CERNER MILLENNIUM Bicarbonate, Venous 18.3 mmol/L CERNER MILLENNIUM Base Excess, Venous -8.5 mmol/L CERNER MILLENNIUM Hgb Blood Gas 8.3(L) 11.2 - 15.7 gm/dL CERNER MILLENNIUM Comment: Total Hemoglobin (in gm/dL) ?Based on [facility] Hematology ranges: ?Age ?Reference Range Less than [...] CARE TEST O RDERARADHA Performing Organization Address [facility] de Phone Number JOHN EVANSIUM * (ABNORMAL) POCT GLUCOSE LAB USE ONLY (04/20/2011 9:10 AM EST) Glucose, POC 205(H) 60 - 199 mg/dL CERNER MILLENNIUM Comment: Supplemental ranges: <110 mg/dL before meals <200 mg/dL all other times of the day Blood specimen (specimen) 04/20/2011 9:10 AM EST 04/20/2011 9:10 AM EST Lexi Read MD POINT OF CARE TEST O RDERARADHA Performing Organization Address [facility] de Phone Number JOHN EVANSIUM * (ABNORMAL) Hepatic Function Panel (04/20/2011 9:01 AM EST) Pathologist [facility] Protein, Total 4.8(L) 6.4 - 8.3 gm/dL [...] Read MD CHEMISTRY ORDERABLES Performing Organization Address [facility] de Phone Number JOHN DE LEON * Lower Respiratory Culture Tracheal Aspirate (04/20/2011 8:53 AM EST) Lower Respiratory Culture ? Patient Name: ROXANN BAXTER ? Ordered By: LEXI READ ? MR#: [id number] ?LOC: ??ICUS ? /Sex: ??1955 (55 years), [...] vania ? Patient: ROXANN BAXTER ? MR#: [id number] ? SUSCEPTIBILITY RESULTS ? Staphylococcus aureus ? [...] Comment: Total Hemoglobin (in gm/dL) ?Based on [facility] Hematology ranges: ?Age ?Reference Range Less than [...] Fraction of Inspired Oxygen, Venous 40 % [facility] Blood Gas Source Central Venous [facility] Blood specimen (specimen) 04/20/2011 7:55 AM EST 04/20/2011 7:55 AM EST Lexi Read MD POINT OF CARE TEST O RDERARADHA Performing Organization Address [facility] Co de Phone Number [facility] * (ABNORMAL) POCT GLUCOSE LAB USE ONLY (04/20/2011 7:52 AM EST) Glucose, POC 266(H) 60 - 199 mg/dL [facility] Comment: Supplemental ranges: <110 mg/dL before meals <200 mg/dL all other times of the day Blood specimen (specimen) 04/20/2011 7:52 AM EST 04/20/2011 7:52 AM EST Lexi Read MD POINT OF CARE TEST O RDERARADHA Performing Organization Address [facility] Co de Phone Number [facility] * (ABNORMAL) POCT GLUCOSE LAB USE ONLY (04/20/2011 6:53 AM EST) Glucose, POC 300(H) 60 - 199 mg/dL [facility] Comment: Supplemental ranges: <110 mg/dL before meals <200 mg/dL all other times of the day Blood specimen (specimen) 04/20/2011 6:53 AM EST 04/20/2011 6:53 AM EST Lexi Read MD POINT OF CARE TEST O RDERARADHA Performing Organization Address [facility] Co de Phone Number [facility] * (ABNORMAL) BLOOD GAS 2 ARTERIAL (04/20/2011 5:57 AM EST) pH, Arterial 7.32(L) CERNER MILLENNIUM PCO2, Arterial 33(L) mmHg CERNE R MILLENNIUM PO2, Arterial 135(H) mmHg CERNER MILLENNIUM Bicarbonate, Arterial 16.6(L) mmol/L CERNER MILLENNIUM Base Excess, Arterial -9.5(L) mmol/L CERNER MILLENNIUM Hgb Blood Gas 8.9(L) gm/dL CERNER MILLENNIUM Comment: Total Hemoglobin (in gm/dL) ?Based on [facility] Hematology ranges: ?Age ?Reference Range Less than [...] CARE TEST O RDKATHY Performing Organization Address [facility] de Phone Number CERNER MILLENNIUM * [...] CARE TEST O JESSICA Performing Organization Address [facility]/ZIP Co de Phone Number CERNER MILLENNIUM * (ABNORMAL) DIFFERENTIAL, AUTOMATED (04/20/2011 5:55 AM [...] MD HEMATOLOGY ORDERABLE S Performing Organization Address City/[facility] Co de Phone Number JOHN DE LEON * Lactic acid, plasma (04/20/2011 5:55 AM EST) Lactic Acid 1.6 0.5 - 2.2 mmol/L CERMAGDALENA WALLERENNIUM Blood specimen (specimen) 04/20/2011 5:55 AM EST 04/20/2011 6:04 AM EST Lexi Reda MD CHEMISTRY ORDERABLES JOHN EVANSIUM * (ABNORMAL) Phosphorus (04/20/2011 5:55 AM EST) Phosphorus 1.5(L) 2.5 - 4.5 mg/dL CERNER SRIDHARENNIUM Blood specimen (specimen) 04/20/2011 5:55 AM EST 04/20/2011 6:04 AM EST Lexi Read MD CHEMISTRY ORDERABLES CERNER MILLENNIUM * (ABNORMAL) Magnesium (04/20/2011 5:55 AM EST) Magnesium 0.60(L) 0.69 - 1.07 mmol/L CERNER MILLENNIUM Blood specimen (specimen) 04/20/2011 5:55 AM EST 04/20/2011 6:04 AM EST Lexi Read MD CHEMISTRY ORDERABLES Performing Organization Address [facility] Co de Phone Number CERNER [...] - 10.5 mg/dL CERNER MILLENNIUM Comment:Called by: llu, Read back by: Roseanne Wang, Date/Time:04/20/11 06:54. Est Glomerular Filtration Rate 28(L) [...] AM EST Lexi Read MD CHEMISTRY ORDERABLES JOHN SRIDHARLEANNEIUM * (ABNORMAL) CBC (with Diff) (04/20/2011 5:55 AM EST) White Blood Cell 26.9(H) 4.0 - 10.0 x10(3)/mc L CERNER MILLENNIUM Red Blood Cell 3.47(L) 3.93 - 5.22 x10(6)/mc L CERNER MILLENNIUM Hemoglobin 8.4(L) 11.2 - 15.7 gm/dL JOHN MILLENNIUM Hematocrit 25.8(L) 34.0 - 45.0 % [facility] Mean Cell Volume 74.4(L) 79.0 - 94.0 fL [facility] MILL[facility]UM Mean Cell Hemoglobin 24.2(L) 26.6 - 32.2 pg [facility] Mean Cell Hemoglobin Concentration 32.6 32.0 - 36.5 gm/dL [facility] MILL[facility]UM Platelet 338 145 - 370 x10(3)/mc L [facility] MILLENNIUM RDW Standard Deviation 45.8 35.0 - 46.0 fL CERNER MILLENNIUM RDW coefficient of variation 16.8(H) 10.9 - 14.4 % [facility] MILL[facility] Mean Platelet Volume 8.6(L) 9.0 - 12.0 fL [facility] Blood specimen (specimen) 04/20/2011 5:55 AM EST 04/20/2011 6:04 AM EST Lexi Read MD HEMATOLOGY ORDERABLE S Performing Organization Address [facility] Co de Phone Number [facility] * (ABNORMAL) Beta Hydroxybutyrate (04/20/2011 5:55 AM EST) Pathologist [facility] Beta-hydroxybu turate 0.57(H) 0.00 - 0.30 mmol/L [facility] Comment: Reference range: ??0.00-0.30 mmo1/L, based on an overnight fast. ??Children may be higher. Blood specimen (specimen) 04/20/2011 5:55 AM EST 04/20/2011 6:04 AM EST Lexi Read MD CHEMISTRY ORDERABLES Performing Organization Address [facility] Co de Phone Number [facility] * (ABNORMAL) POCT GLUCOSE LAB USE ONLY (04/20/2011 5:02 AM EST) Pathologist [facility] Glucose, POC 389(H) 60 - 199 mg/dL [facility] Comment: Supplemental ranges: <110 mg/dL before meals <200 mg/dL all other times of the day Blood specimen (specimen) 04/20/2011 5:02 AM EST 04/20/2011 5:02 AM EST Lexi Read MD POINT OF CARE TEST O JESSICA Performing Organization Address [facility] de Phone Number [facility] * (ABNORMAL) POCT GLUCOSE LAB USE ONLY (04/20/2011 4:00 AM EST) Glucose, POC 437(H) 60 - 199 mg/dL [facility] Comment: Supplemental ranges: <110 mg/dL before meals <200 mg/dL all other times of the day Blood specimen (specimen) 04/20/2011 4:00 AM EST 04/20/2011 4:00 AM EST Narrative Authorizing Provider Result Flavia Read MD POINT OF CARE TEST O JESSICA Performing Organization Address [facility] de Phone Number [facility] * (ABNORMAL) POCT GLUCOSE LAB USE ONLY (04/20/2011 3:03 AM EST) Glucose, POC 479(H) 60 - 199 mg/dL [facility] Comment: Supplemental ranges: <110 mg/dL before meals <200 mg/dL all other times of the day Blood specimen (specimen) 04/20/2011 3:03 AM EST 04/20/2011 3:03 AM EST Narrative Authorizing Provider Result Flavia Read MD POINT OF CARE TEST O JESSICA Performing Organization Address [facility] de Phone Number [facility] * (ABNORMAL) POCT GLUCOSE LAB USE ONLY (04/20/2011 1:58 AM EST) Glucose, POC 487(H) 60 - 199 mg/dL [facility] Comment: Supplemental ranges: <110 mg/dL before meals <200 mg/dL all other times of the day Blood specimen (specimen) 04/20/2011 1:58 AM EST 04/20/2011 1:58 AM EST Lexi Read MD POINT OF CARE TEST O RDERABLES Performing Organization Address [facility] Co de Phone Number [facility] * (ABNORMAL) POCT GLUCOSE LAB USE ONLY (04/20/2011 1:05 AM EST) Glucose, POC 587(Critic al) 60 - 199 mg/dL [facility] Comment: Supplemental ranges: <110 mg/dL before meals <200 mg/dL all other times of the day Blood specimen (specimen) 04/20/2011 1:05 AM EST 04/20/2011 1:05 AM EST Lexi Read MD POINT OF CARE TEST O RDERABLES Performing Organization Address [facility] de Phone Number [facility] * (ABNORMAL) BLOOD GAS 2 ARTERIAL (04/20/2011 12:11 AM EST) pH, Arterial 7.21(Criti sang) 7.35 - 7.45 [facility] MILLENNIUM Comment:Noted by instrument shop supervisor. JHB PCO2, Arterial 29(L) 35 - 45 mmHg CERNER MILLENNIUM PO2, Arterial 145(H) 85 - 104 mmHg CERNER MILLENNIUM Bicarbonate, Arterial 11.2(L) 20.0 - 26.0 mmol/L CERNER MILLENNIUM Base Excess, Arterial -16.7(L) -3.0 - 3.0 mmol/L CERNER MILLENNIUM Hgb Blood Gas 9.5(L) 11.2 - 15.7 gm/dL CERNER MILLENNIUM Comment: Total Hemoglobin (in gm/dL) ?Based on [facility] Hematology ranges: ?Age ?Reference Range Less than [...] 199 mg/dL CERNER MILLENNIUM Comment: Noted by instrument shop supervisor. ?? JHB Diabetes: >=200 mg/dL plus symptoms. FIO2 Art 60 % CERNER MILLENNIUM PF Ratio Art 242 CERNER MILLENNIUM Blood specimen (specimen) 04/20/2011 12:11 AM EST 04/20/2011 4:46 AM EST Lexi Read MD POINT OF CARE TEST O RDERABLES JOHN WALLERENNIUM * (ABNORMAL) DIFFERENTIAL, AUTOMATED (04/20/2011 12:02 AM [...] DE LEON * Lactic acid, plasma (04/20/2011 12:02 AM EST) Lactic Acid 1.1 0.5 - 2.2 mmol/L CERNER MILLENNIUM Blood specimen (specimen) 04/20/2011 12:02 AM EST 04/20/2011 12:10 AM EST Lexi Read MD CHEMISTRY ORDERABLES Performing Organization Address [facility] Co il Phone Number [facility] M[facility] * Phosphorus (04/20/2011 12:02 AM EST) Phosphorus 3.3 2.5 - 4.5 mg/dL CERNER MILLENNIUM Blood specimen (specimen) 04/20/2011 12:02 AM EST 04/20/2011 12:10 AM EST Lexi Read MD CHEMISTRY ORDERABLES Performing Organization Address [facility] Phone Number [facility] M[facility] * Magnesium (04/20/2011 12:02 AM EST) Magnesium 0.73 0.69 - 1.07 mmol/L CERNER MILLENNIUM Blood specimen (specimen) 04/20/2011 12:02 AM EST 04/20/2011 12:10 AM EST Lexi Read MD CHEMISTRY ORDERABLES Performing Organization Address [facility] Phone Number [facility] * (ABNORMAL) Basic Metabolic Panel (non-fasting) (04/20/2011 12:02 AM EST) Glucose 621(Criti sang) 60 - 199 mg/dL CERNER MILLENNIUM Comment: Called by: leanne, Read back by: Roseanne Wang, Date/Time:04/20/11 00:52. Diabetes: >=200 mg/dL plus symptoms [...] Comment:Called by: leanne, Read back by: Roseanne Wang, Date/Time:04/20/11 00:52. Est Glomerular Filtration Rate 21(L) [...] Read MD CHEMISTRY ORDERABLES Performing Organization Address [facility] Co de Phone Number JOHN WALLERENNIUM * (ABNORMAL) CBC (with Diff) (04/20/2011 12:02 [...] MD HEMATOLOGY ORDERABLE S Performing Organization Address [facility]/ZIP Co de Phone Number JOHN DE LEON * (ABNORMAL) Beta Hydroxybutyrate (04/20/2011 12:02 AM EST) Beta-hydroxybu turate 5.85(H) 0.00 - 0.30 mmol/L CERNER MILLENNIUM Comment: Reference range: ??0.00-0.30 mmo1/L, based on an overnight fast. ??Children may be higher. Blood specimen (specimen) 04/20/2011 12:02 AM EST 04/20/2011 12:10 AM EST Lexi Read MD CHEMISTRY ORDERABLES CERMAGDALENA MILLENNIUM * (ABNORMAL) Glucose, random (04/19/2011 10:05 PM EST) Glucose 693(Critic al) 60 - 199 mg/dL CERNER MILLENNIUM Comment: Called by: ryan, Read back by: Ning Gurrola, Date/Time:04/19/11 23:18. Diabetes: >=200 mg/dL plus symptoms Blood specimen (specimen) 04/19/2011 10:05 PM EST 04/19/2011 10:25 PM EST Lexi Read MD CHEMISTRY ORDERABLES CERMAGDALENA MILLENNIUM * (ABNORMAL) BLOOD GAS 2 VENOUS (04/19/2011 8:53 PM EST) pH, Venous 7.00(Criti sang) CERNER MILLENNIUM PCO2, Venous 37(L) mmHg CERNER MILLENNIUM PO2, Venous 68(H) mmHg CERNER MILLENNIUM Bicarbonate, Venous 8.9 mmol/L CERNER MILLENNIUM Base Excess, Venous -22.3 mmol/L CERNER MILLENNIUM Hgb Blood Gas 9.3(L) gm/dL CERNER MILLENNIUM Comment: Total Hemoglobin (in gm/dL) ?Based on [facility] Hematology ranges: ?Age ?Reference Range Less than [...] CARE TEST O RDERABLES CERNER MILLENNIUM * EKG 12 Lead (04/19/2011 8:47 PM EST) Ventricular rate 103 BPM MUSE SYSTEM Atrial Rate 103 BPM MUSE SYSTEM P-R Interval 152 ms MUSE SYSTEM QRS Duration 84 ms MUSE SYSTEM Q-T Interval 386 ms MUSE SYSTEM QTC Calculated (Bezet) 505 ms MUSE SYSTEM Calculated P Harriet 72 degrees MUSE SYSTEM Calculated R Harriet 34 degrees MUSE SYSTEM Calculated T Harriet 42 degrees MUSE SYSTEM INTERPRETATION Sinus tachycardia Low voltage QRS Nonspecific ST abnormality Abnormal ECG No previous ECGs available Confirmed by MD ALEAH, MARTINA ([id number]) on 04/20/2011 2:54:34 PM MUSE SYSTEM 04/19/2011 8:47 PM EST 04/20/2011 2:54 PM EST Lexi Read MD ECG ORDERABLES MUSE SYSTEM * XR ABDOMEN 1 VIEW [...] Comment: Total Hemoglobin (in gm/dL) ?Based on [facility] Hematology ranges: ?Age ?Reference Range Less than [...] MD HEMATOLOGY ORDERABLE S Performing Organization Address City/[facility]/ZIP Co de Phone Number CERNER MILLENNIUM * (ABNORMAL) DIFFERENTIAL, AUTOMATED (04/19/2011 [...] Absolute 0.27(H) 0.00 - 0.05 x10(3)/mc L [facility] Blood specimen (specimen) 04/19/2011 8:11 PM EST 04/19/2011 8:24 PM EST Lexi Read MD HEMATOLOGY ORDERABLE S Performing Organization Address [facility]/ZIP Co de Phone Number [facility] * BETA HYDROXYBUTYRATE (04/19/2011 8:11 PM EST) Pathologist [facility] Beta-hydroxybu turate >8.00 0.00 - 0.30 mmol/L [facility] Comment: Result rechecked. Reference range: ??0.00-0.30 mmo1/L, based on an overnight fast. ??Children may be higher. Blood specimen (specimen) 04/19/2011 8:11 PM EST 04/19/2011 8:24 PM EST Lexi Read MD CHEMISTRY ORDERABLES Performing Organization Address [facility] de Phone Number [facility] * ANTIBODY SCREEN (04/19/2011 8:11 PM EST) Pathologist [facility] Ab Screen Interp Negative [facility] SRID[facility] Expires at [id number] on: [id number] [facility] Blood specimen (specimen) 04/19/2011 8:11 PM EST 04/19/2011 8:24 PM EST Lexi Read MD BLOOD BANK LAB ORDER DAKSHA Performing Organization Address [facility] Co de Phone Number [facility] * ABO/RH TYPING (04/19/2011 8:11 PM EST) Pathologist [facility] ABORH Type A Pos [facility] SRID[facility]UM Blood specimen (specimen) 04/19/2011 8:11 PM EST 04/19/2011 8:24 PM EST Lexi Read MD BLOOD BANK LAB ORDER DAKSHA Performing Organization Address [facility] Phone Number [facility] * (ABNORMAL) Phosphorus (04/19/2011 8:11 PM EST) Phosphorus 5.8(H) 2.5 - 4.5 mg/dL CERNER MILLENNIUM Blood specimen (specimen) 04/19/2011 8:11 PM EST 04/19/2011 8:24 PM EST Lexi Read MD CHEMISTRY ORDERABLES Performing Organization Address [facility] Phone Number [facility] * Magnesium (04/19/2011 8:11 PM EST) Magnesium 0.94 0.69 - 1.07 mmol/L CERNER MILLENNIUM Blood specimen (specimen) 04/19/2011 8:11 PM EST 04/19/2011 8:24 PM EST Lexi Read MD CHEMISTRY ORDERABLES Performing Organization Address [facility] Phone Number [facility] * (ABNORMAL) Basic Metabolic Panel (non-fasting) (04/19/2011 8:11 PM EST) Glucose 820(Criti sang) 60 - 199 mg/dL CERNER MILLENNIUM Comment: Result rechecked. Called by: CINTHYA, Read back by:Roseanne Wang, Date/Time:04/19/11 21:16. Diabetes: >=200 mg/dL plus symptoms [...] Called by: CINTHYA, Read back by: Roseanne Wang, Date/Time:04/19/11 21:16. Anion Gap 29(H) 5 - [...] CERMAGDALENA WALLERENNIUM * (ABNORMAL) CBC (with Diff) (04/19/2011 8:11 [...] MD HEMATOLOGY ORDERABLE S JOHN EVANSIUM * APTT (04/19/2011 8:11 PM EST) Partial Thromboplastin Time 29 25 - 35 sec CERNER MILLENNIUM Comment: Recommended therapeutic PTT range for full dose unfractionated heparin is 80-114 seconds. Blood specimen (specimen) 04/19/2011 8:11 PM EST 04/19/2011 8:24 PM EST Lexi Read MD HEMATOLOGY ORDERABLE S Performing Organization Address [facility] Phone Number [facility] * (ABNORMAL) Prothrombin Time (04/19/2011 8:11 PM EST) Prothrombin Time 18.5(H) 12.3 - 14.7 sec CERNER MILLENNIUM Comment: [facility] Transfusion Committee Guidelines: INR less than 2.0, PTT less than OR equal to 43.5 seconds, or Fibrinogen greater than or equal to 100 mg/dl indicate adequate procoagulant activity for hemostasis in patients without underlying bleeding disorders. International Normalization Ratio 1.5(H) 0.9 - 1.1 CERNER MILLENNIUM Blood specimen (specimen) 04/19/2011 8:11 PM EST 04/19/2011 8:24 PM EST Lexi Read MD HEMATOLOGY ORDERABLE S Performing Organization Address [facility] Phone Number [facility] SRIDHARENNIUM * Lactic acid, plasma (04/19/2011 8:11 PM EST) Lactic Acid 0.8 0.5 - 2.2 mmol/L CERNER MILLENNIUM Blood specimen (specimen) 04/19/2011 8:11 PM EST 04/19/2011 8:24 PM EST Lexi Read MD CHEMISTRY ORDERABLES Performing Organization Address [facility] Phone Number [facility] SRID[facility] * (ABNORMAL) Osmolality (04/19/2011 8:11 PM EST) Osmolality 316(H) 275 - 295 mOsm/kg CERNER MILLENNIUM Blood specimen (specimen) 04/19/2011 8:11 PM EST 04/19/2011 8:24 PM EST Lexi Read MD CHEMISTRY ORDERABLES Performing Organization Address [facility] Phone Number [facility] * CENTRAL LINE (04/19/2011 7:38 PM EST) Narrative 04/19/2011 7:38 PM EST Central Line Placement Procedure Note Indication for Central Line Insertion: New Catheter: ??volume replacement, access, monitoring, medication administration and sepsis This insertion was not to replace a malfunctioning central line. This insertion was not due to a suspected central line associated infection. Location of Procedure: [facility] Risks and Benefits: The risks and [...] to the planned procedure. Hand Hygiene: The gunnery/ordnance officer did perform hand hygiene prior to central [...] suspected central line associatedinfection. Location of Procedure: [facility] Risks and Benefits: The risks and benefits of this procedure were not reviewed and informedconsent was not obtained. Time Out: Prior to the start of the procedure, the patient's identity, intendedprocedure, site/side, correct patient positioning and presence of the sitemark was confirmed as applicable. The medical history and chart werereviewed to rule out potential contraindications to the planned procedure. Hand Hygiene: The gunnery/ordnance officer did perform hand hygiene prior to central [...] ORDERABLES documented in this encounter Visit Diagnoses Not on filedocumented in this encounter Administered Medications Inactive Administered Medications - up to 3 most recent administrations Medication Order MAR Action Action Date Dose Rate Site fentaNYL 50mcg/mL injection ONCE PRN, Starting on Thu04/25/11 at 1106, Until Thu04/25/11 at 1934, Pain, Intra-Operative (Intra-Procedure), Routine Given 04/25/2011 11:06 AM EST 100 mcg midazolam (VERSED) injection ONCE PRN, Starting on Thu04/25/11 at 1106, Until Thu04/25/11 at 1934, Sleep, Intra-Operative (Intra-Procedure), Routine Given 04/25/2011 11:10 AM EST 1 mg Given 04/25/2011 11:06 AM EST 2 mg documented in this encounter [...] on Thu04/22/11 at 1000, Until Discontinued, Routine 0800 (Given [...] Garcia RN) 0731 (Given - Provider: Lucero Freeman RN)1624 (Given - Provider: Lucero Freeman, ELSA) 0648 [...] Garcia RN)1219 (Given - Provider: Sarika Garcia RN)1745 (Given - Provider: Sarika Garcia RN) 0754 [...] DAILY, First dose (after last modification) on Cristina 04/24/11 at 1000, Until Discontinued, Routine 1130 (Given - Provider: Sarika Garcia, ELSA) levothyroxine (SYNTHROID) injection 75 mcg (CANCELED) 75 mcg, Intravenous, EVERY MORNING, First dose (after last modification) on Thu04/22/11 at 0600, Until Discontinued, Administer over 1 Minutes 0636 (Given - Provider: Uma Healy RN) levothyroxine (SYNTHROID) tablet 150 mcg (CANCELED) 150 mcg, Oral, EVERY MORNING, First dose on Thu04/28/11 at 0600, Until Discontinued, Routine 0600 (Not Given - Provider: Chase Arias RN - Reason: Medication not available)0753 (Given - Provider: Lucero Freeman RN - Comment: medication became available at this time) 0540 (Given - Provider: Ang Thakkar, RN) potassium chloride SA (K-DUR;KLOR-CON) tablet 40 mEq (COMPLETED) 40 mEq, Oral, ONCE, 1 dose, On 04/27/11 at 1030, 20 mEq tablet may be dissolved in water for administration, Routine 1218 (Given - Provider: Sarika Garcia RN - Comment: given with meal) PRN Medication Order 04/27/2011 04/28/2011 04/29/2011 zolpidem (AMBIEN) tablet 5-10 mg (CANCELED) 5-10 mg, Oral, NIGHTLY PRN, Starting on Thu04/24/11 at 2313, Until Thu04/29/11 at 1651, Sleep, Routine 2034 (Given - Provider: Chase Arias RN) 2024 (Given - Provider: Ang Thakkar, ELSA) documented in this encounter Care Teams Hardware Assembler Relationship Specialty Start Date End Date Elly London APRN PCP - General 02/26/10 05/20/11 documented as of this encounter
--- OUTSIDE RECORDS SUMMARY | 2024-03-07 19:07 | XMS_ITS | Encounter Summary ---
Author Organization [facility] [place] [address] Care Team Providers Care Stationary Engineer Supervisor Name Role Phone Dee Slade APRN Primary Care Provider [phone] Encounter Details Date Type Department Care Team (Late st Contact Info) Description 03/27/2010 2:15 PM EST Follow-[place] [phone] Darryl Burgos MD [facility] [place] [address] Discharge Disposition: Home Social History Tobacco Use [...] 2:30 PM EST Office [place] [phone] Alcides Bonilla MD [facility] [place] [address] 04/06/2049 9:00 AM EST Hospital Encounter [place] [phone] Harry Guerrero MD [facility] [place] [address] documented as of this encounter Visit Diagnoses Not on filedocumented in this encounter Care Teams Stationary Engineer Supervisor Relationship Specialty Start Date End Date Dee Slade APRN PCP - General 02/26/10 05/20/11 documented as of this encounter
--- OUTSIDE RECORDS SUMMARY | 2024-03-07 19:07 | XMS_ITS | Encounter Summary ---
Author Organization [facility] [place] [address] Care Team Providers Care Solid Waste Facility Operator Name Role Phone Dee Slade APRN Primary Care Provider [phone] Reason for Visit * Reason Comments Follow-up Encounter Details Date Type Department Care Team ([facility] st Contact Info) Description 03/05/2011 1:15 PM EST [place] [address] Darryl Burgos MD [facility] [place] [address] Psoriatic arthritis (Primary Dx); Psoriasis Discharge Disposition: Home Social History Tobacco Use Types Packs/Day Years Used Date Smoking Tobacco: Former Sex and Gender Information Value Date Recorded Sex Assigned at Not on file Gender Identity Not on file Sexual Orientation Not on file documented as of this encounter Last Filed Vital Signs Vital Sign Reading Time Taken Comments Blood Pressure 106/56 03/05/2011 1:04 PM EST Pulse 79 03/05/2011 1:04 PM EST Temperature 37.2 ??C (98.9 ??F) 03/05/2011 1:04 PM ES T Respiratory Rate - - Oxygen Saturation 95% 03/05/2011 1:04 PM EST Inhaled Oxygen Concentration - - Weight 82.6 kg (182 lb) 03/05/2011 1:04 PM EST Height 167.6 cm (5' 6) 03/05/2011 1:04 PM EST Body Mass Index 29.38 03/05/2011 1:04 PM EST documented in this encounter Patient Instructions * Patient Instructions* Darryl Burgos MD - 03/05/2011 1:24 PM EST 1) Increase weekly oral methotrexate to 20 mg. 2) Continue daily folic acid, 1 mg. 3) Get X-ray of the knees today. 4) Return to follow up in two months. documented in this encounter Progress Notes * Darryl Burgos MD - 03/05/2011 1:20 PM EST Reason for visit: Follow up for psoriatic arthritis and psoriasis. History of Present Illness: The pt was a 55-year-old female, who returned for a follow up of psoriatic arthritis. Thept noted that since her last visit in June 2010, her 14-year-old granddaughter had of leukemia. She had since been severely depressed, and she was currently taking care of another granddaughter. She had also discontinued prednisone, and was only taking weekly oral methotrexate, 15 mg for symptomatic control of her psoriatic arthritis. While on such dose, she experienced persistent pain and stiffness in her low back, knees, hands, and wrists. She also complained of join swelling in her wrists and hands, as well as morning stiffness of the whole body for about an hour. Overall, she felt that pain and stiffness was worst in her low back, followed by the knees, hands, and then wrists. Otherwise, she tolerated methotrexate well without any [...] family. 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 She was currently applying for disability. Family History: ??Mother - Hypertension, hyperlipidemia, hypothyroidism; of cardiac aneurysm at the age of 48. Father - Stroke, alive and healthy at the age of 81. ?? Physical Examination: Vitals - T = 98.9 BP = 106/56 P = 79 WT = 182 lbs HT = 5'6 O2 sat = 95% on room air General - Alert, co-operative, no apparent distress, [...] arthritis was under poor control since she discontinued prednisone on her own. She was currently on weekly oral methotrexate, 15 mg, which provided inadequate immunosuppression with residual synovitis and multiple joint pian. She will need to increase methotrexate dose to 20 mg. The pt noted that she had recent surveillance studies at her primary care physician's office and would defer any surveillance studies today. Iwill obtain laboratory studies from her primary care physician's office. 2) Psoriasis. The pt will continue weekly oral methotrexate for her psoriasis, which was manifestedas dysmorphic toe nails bilaterally. 3) Bilateral knee pain. The etiology of the pt's bilateral knee pain is unclear, i.e. psoriatic arthritis vs osteoarthritis. She will undergo radiographic studies today. 4) Severe iron deficiency and microcytic anemia. It remains unclear if the pt had any follow up workup or therapeutic intervention for her severe iron deficiency and microcytic anemia. I will obtain laboratory studies from her primary care physician's office prior to instituting any plans. Recommendations: 1) Increase weekly oral methotrexate to 20 mg. 2) Continue daily folic acid, 1 mg. 3) Get standing views of the knees today. 4) Obtain recent laboratory studies from pt's PCP. 5) Return to follow up in two months. ? Darryl Burgos MD, PhD documented in this encounter Plan of Treatment Upcoming Encounters Date Type Department Care Team (Late st Contact Info) Description 05/17/2024 2:30 PM EST Office [place] [phone] Alcides Bonilla MD [facility] [place] [address] 04/06/2049 9:00 AM EST Hospital En[place] [phone] Harry Guerrero MD [facility] [place] [address] documented as of this encounter Results * XR knee bilateral1 [...] arthritis- Primary Psoriatic arthropathy Psoriasis Other psoriasis Psoriatic arthritis Psoriatic arthropathy documented in this encounter Care Teams Solid Waste Facility Operator Relationship Specialty Start Date End Date Dee Slade APRN PCP - General 02/26/10 05/20/11 documented as of this encounter
--- OUTSIDE RECORDS SUMMARY | 2024-03-07 19:07 | XMS_ITS | Encounter Summary ---
Author Organization [facility] [place] [address] Care Team Providers Care Towel Hemmer Name Role Phone Dee Slade APRN Primary Care Provider [phone] Encounter Details Date Type Department Care Team (Late st Contact Info) Description 04/19/2011 Orders Only Rheumatology at [place] [phone] Darryl Burgos MD [facility] [place] [address] Social History Tobacco Use Types Packs/Day Years [...] PM EST Office Visit [place] [phone] Alcides Bonilla MD [facility] [place] [address] 04/06/2049 9:00 AM EST Hospital Encounter [place] [phone] Harry Guerrero MD [facility] [place] [address] documented as of this encounter Procedures Procedure Name Priority Date/Time Associated Diagnosis Comments FILM LIBRARY STORAGE ONLY DX CHEST Routine 04/19/2011 9:23 AM EST documented in this encounter Results * FILM LIBRARY- STORAGE ONLY DX CHEST (04/19/2011 9:23 AM EST) 04/19/2011 9:23 AM EST Narrative RAD - 08/30/2013 1:43 PM EDT This is a non-reportable exam. Procedure Note Tavo Cano - 08/30/2013 This is a non-reportable exam. Darryl Burgos MD IM FILM LIBRARY ORD ERABLES [facility] [address] [facility] [place] [address] documented in this encounter Visit Diagnoses Not on filedocumented in this encounter Care Teams Towel Hemmer Relationship Specialty Start Date End Date Dee Slade APRN PCP - General 02/26/10 05/20/11 documented as of this encounter
--- OUTSIDE RECORDS SUMMARY | 2024-03-07 19:07 | XMS_ITS | Encounter Summary ---
Author Organization [facility] [place] [address] Care Team Providers Care Retort Or Condenser Press Operator Name Role Phone Dee Slade APRN Primary Care Provider Encounter Details Date Type Department Care Team (Late st Contact Info) Description 06/12/2010 3:45 PM EST [place] [phone] Darryl Burgos MD [facility] [place] [address] Discharge Disposition: Home Social History Tobacco Use Types Packs/Day Years Used Date Smoking Tobacco: Never Assessed Sex and Gender Information Value Date Recorded Sex Assigned at Not on file Gender Identity Not on file Sexual Orientation Not on file documented as of this encounter Miscellaneous Notes * Miscellaneous - González Silverio - 08/05/2010 8:23 AM EDT documented in this encounter Plan of Treatment Upcoming Encounters Date Type Department Care Team (Late st Contact Info) Description 05/17/2024 2:30 PM EST Office [place] [phone] Alcides Bonilla MD [facility] [place] [address] 04/06/2049 9:00 AM EST Hospital En[place] [address] Harry Guerrero MD [facility] [place] [address] documented as of this encounter Procedures Procedure Name Priority Date/Time Associated Diagnosis Comments VITAMIN D, 25-HYDROXY Routine 06/12/2010 3:02 PM EST SEDIMENTATION RATE Routine 06/12/2010 3: 02 PM EST CRP, CARDIAC RISK (HS CRP) Routine 06/12/2010 3:02 PM EST COMPREHENSIVE METABOLIC PANEL Routine 06/12/2010 3:02 PM EST documented in this encounter Results * VITAMIN D 25 HYDROXY (06/12/2010 3:02 PM EST) 25-Hydroxy D2 <4.0 ng/mL [facility] Comment: Test Performed by: [place] [address] Financial Analysis Manager: Gale Alcazar, Ph.D. 25-Hydroxy D3 36 ng/mL [facility] Comment: Test Performed by: [place] [address] Financial Analysis Manager: Gale Alcazar, Ph.D. Vitamin D Total 25 OH 36 ng/mL [facility] Comment: -- REFERENCE VALUE -- 25-HYDROXY D TOTAL (D2+D3) Optimum levels in the normal population are 25-80 Test Performed by: [place] [address] Financial Analysis Manager: Gale Alcazar, Ph.D. Blood specimen (specimen) 06/12/2010 3:02 PM EST 06/12/2010 4:09 PM EST Darryl Burgos MD CHEMISTRY ORDERABLES [facility] DE LEON * SEDIMENTATION RATE, AUTOMATED (06/12/2010 3:02 PM EST) Sedimentation Rate Automated 20 0 - 20 mm/hr JOHN DE LEON Blood specimen (specimen) 06/12/2010 3:02 PM EST 06/12/2010 3:19 PM EST Darryl Burgos MD HEMATOLOGY ORDERABLE S JOHN DE LEON * HIGH SENSITIVITY CRP (06/12/2010 3:02 PM EST) C-Reactive Protein High Sensitivity 6.8 mg/L [facility] Comment: Interpretations: 1) For cardiac risk assessment, [...] allow for appraisal of coronary risk information. References: 1. Shiva CHEEMA et. al. ??AHA/CDC Scientific Statement: Markers of Inflammation and Cardiovascular Disease. ??Circulation 2003; 107:499-511 2. Leif PM. ??Clinical applications of C-reactive protein for cardiovascular disease detection and prevention. ??Circulation 2003; 107:363-369 Blood specimen (specimen) 06/12/2010 3:02 PM EST 06/12/2010 3:19 PM EST Darryl Burgos MD CHEMISTRY ORDERABLES CERNER SRIDHARENNIUM * (ABNORMAL) COMPREHENSIVE METABOLIC PANEL (NON-FASTING) (06/12/2010 3:02 PM EST) Glucose 46(L) 60 - 199 mg/dL [facility] MILLENNIUM Comment:Diabetes: >=200 mg/d L plus symptoms Blood Urea Nitrogen 17 8 - 18 mg/dL CERNER MILLENNIUM Creatinine 0.77 0.70 - 1.20 mg/dL CERNER MILLENNIUM Sodium [...] questions. Chloride 104 98 - 107 mmol/L CERNER MILLENNIUM Carbon Dioxide 32(H) 22 - 31 mmol/L CERNER MILLENNIUM Anion Gap 7 5 - 15 mmol/L CERNER MILLENNIUM Calcium 9.5 8.5 - 10.5 mg/dL CERNER MILLENNIUM Protein, Total 7.6 6.4 - 8.3 gm/dL CERNER MILLENNIUM Albumin 4.6 3.2 - 5.2 gm/dL CERNER MILLENNIUM Aspartate Aminotransferase 21 0 - 30 unit/L CERNER MILLENNIUM Alanine Aminotransferase 21 0 - 30 unit/L CERNER MILLENNIUM Alkaline Phosphatase 65 40 - 104 unit/L CERNER MILLENNIUM Bilirubin, [...] at steady-state (unchanged within the past week). ??Patient age > = 18 years, and for Americans multiply eGFR by 1.2. At present, NKDEP does NOT recommend using [...] disease. References: http://nkdep.nih.gov/resources/NKDEP_Suggestn4Labs_0606_508.pdf http://www.kidney.org/professionals/kls/pdf/faq_gfr.pdf Blood specimen (specimen) 06/12/2010 3:02 PM EST 06/12/2010 3:19 PM EST Darryl Burgos MD CHEMISTRY ORDERABLES Performing Organization Address City/State/ZIP Co al Phone Number [facility] documented in this encounter Visit Diagnoses Not on filedocumented in this encounter Care Teams Retort Or Condenser Press Operator Relationship Specialty Start Date End Date Dee Slade APRN PCP - General 02/26/10 05/20/11 documented as of this encounter
--- OUTSIDE RECORDS SUMMARY | 2024-03-07 19:08 | XMS_ITS | Encounter Summary ---
Author Organization [facility] Address [address] [place] [address] Care Team Providers Care Attraction Worker Name Role Phone Unknown, Provider Primary Care Provider Unava ilable Encounter Details Date Type Department Care Team (Late st Contact Info) Description 02/07/2021 Lab Requisition [facility] Pathology & Laboratory Medicine - [facility] [address] [place] [address] Outr Resulting Lab, Provider Social History Tobacco Use Types Packs/Day Years Used Date Smoking Tobacco: Never Assessed Comments Unknown Sex and Gender Information Value Date Recorded Sex Assigned at Not on file Legal Sex Female 18:13 EST Gender Identity Not on file Sexual Orientation Not on file documented as of this encounter Plan of Treatment Not on file documented as of this encounter Procedures Procedure Name Priority Date/Time Associated Diagnosis Comments ZZCOVID-19 TEST [facility] PCR Today 02/06/2021 15:17 EDT COVID-19 TESTING Routine 02/06/2021 15:1 7 EDT documented in this encounter Results * COVID-19 TEST [facility] PCR (02/06/2021 15:17 EDT) Swab ENTIRE NASOPHARYNX / Unknown 02/06/2021 15:17 EDT 02/07/2021 16:09 EDT us Provider Outr Resulting Lab MICROBIOLOGY - GENER AL ORDERABLES Final Result [facility] [address] [place] [address] * COVID-19 TESTING (02/06/2021 15:17 EDT) COVID-19 rt-PCR Result Negative Negative 02/08/2021 14:[address] [facility] Comment: This test has not been FDA cleared or approved. This test has been authorized by FDA under an EUA for use by authorized laboratories. This test has been authorized only for detection of nucleic acid from 2019-nCoV, not for any other viruses or pathogens. This test is only authorized for the duration of the declaration that circumstances exist justifying the authorization of emergency use of in vitro diagnostic tests for detection and/or diagnosis of 2019-nCoV under section 564(b)(1) of Act, 21 U.S.C ?? 360bbb-3(b) (1), unless the authorization is terminated or revoked sooner. Negative results do not preclude 2019-nCoV infection and should not be used as the sole basis for treatment or other patient management decisions. Negative results must be combined with clinical observations, patient history, and epidemiological information. This test was developed and its performance characteristics determined by [facility]. It has not been cleared or approved by the US Food and Drug Administration. FDA does not require this test to go through premarket FDA review. This test is used for clinical purposes. It should not be regarded as investigational or for research. This laboratory is certified under the Clinical Laboratory Improvement Amendments (CLIA) as qualified to perform high complexity clinical laboratory testing. This test is based on the CDC COVID-19 Emergency Use Authorization (EUA) assay, with minor modification as defined by the FDA Performed on the Time Wardeno 7 Pro RT-PCR System. Performing Lab [facility] 02/08/2021 14:[address] [facility] Swab 02/06/2021 15:1 7 EDT 02/07/2021 16:09 EDT us Provider Outr Resulting Lab MICROBIOLOGY - GENER AL ORDERABLES Final Result [facility] [address] [place] [address] documented in this encounter Visit Diagnoses Not on filedocumented in this encounter Care Teams Attraction Worker Relationship Specialty Start Date End Date Unknown, Provider, PCP - General 11/26/09 documented as of this encounter
--- OUTSIDE RECORDS SUMMARY | 2024-03-07 19:08 | XMS_ITS | Encounter Summary ---
Author Organization [facility] Address [address] [place] [address] Care Team Providers Care Fountain Attendant Name Role Phone Unknown, Provider Primary Care Provider Unava ilable Encounter Details Date Type Department Care Team (Late st Contact Info) Description 03/15/2020 Lab Requisition [facility] Pathology & Laboratory Medicine - [facility] [address] [place] [address] Outr Resulting Lab, Provider Social History Tobacco [...] Procedure Name Priority Date/Time Associated Diagnosis Comments DO NOT ORDER STANDALONE - [facility] COVID TEST Today 03/14/2020 14:30 EST COVID-19 TESTING Routine 03/14/2020 14:3 0 EST documented in this encounter Results * DO NOT ORDER STANDALONE - [facility]OAD COVID TEST (03/14/2020 14:30 EST) COVID-19 rt-PCR Result NEGATIVE Negative 03/17/2020 8:37 EST [facility] Comment: 2019-novel Coronavirus (2019-nCoV) not detected by the qRT-PCR assay. Consider testing for other respiratory viruses or re-collecting for 2019-nCoV testing. Note: Optimum timing for peak viral levels during infections caused by 2019-nCoV have not been determined. Collection of multiple specimens from the same patient may be necessary to detect the virus. Limitations Positive results are indicative of active infection with SARS-CoV-2 but do not rule out bacterial infection or co-infection with other viruses. The agent detected may not be the definite cause of disease. In addition, detection of viral RNA may not indicate the presence of infectious virus or that SARS-CoV-2 is the causative agent for clinical symptoms. Negative results do not preclude SARS-CoV-2 infection and should not be used as the sole basis for patient management decisions. Negative results must be combined with clinical observations, patient history, and epidemiological information. False negative results may also occur if amplification inhibitors are present in the specimen or if inadequate numbers of organisms are present in the specimen. Optimum specimen types and timing for peak viral levels during infections caused by SARS-CoV-2 have not been fully determined. Collection of multiple specimens (types and time points) from the same patient may be necessary to detect the virus. The test was validated for use with upper respiratory specimens obtained via nasopharyngeal or oropharyngeal swabs in VTM, UTM, M4, M5, M6, saline, and MTM media. The performance of this test has not been established for other specimens. Specimens collected using other FDA recommended Specimen Collection Materials listed in the FDA COVID-19 [employer] communication (June 30, 2019) are processed with the caveat that they were not all validated for use with this test and the result must be interpreted in this context. Furthermore, a false negative results may occur if a specimen is improperly collected, transported or handled. If the virus mutates in the RT-PCR target region, SARS-CoV-2 may not be detected or may be detected less predictably. Inhibitors or other types of interference may produce a false negative result. An interference study evaluating the effect of common cold medications was not performed. This test is not FDA-cleared but its performance characteristics were established by our CLIA-certified, CAP-accredited, high complexity laboratory in accordance with CLIA regulations, [employer] (CAP) guidelines (Jun 23, 2019), and FDA guidance (Jun 04, 2019). This test is only for use under the Food and Drug Administration's Emergency Use Authorization. Swab ENTIRE NASOPHARYNX / Unknown 03/14/2020 14:30 EST 03/15/2020 15:58 EST us Provider Outr Resulting Lab MICROBIOLOGY - GENER AL ORDERABLES Final Result [place] * COVID-19 TESTING (03/14/2020 14:30 EST) [facility] COVID-19 rt-PCR Result NEGATIVE Negative 03/17/2020 9:55 EST [facility] Comment: 2019-novel Coronavirus (2019-nCoV) not detected by the qRT-PCR assay. Consider testing for other respiratory viruses or re-collecting for 2019-nCoV testing. Note: Optimum timing for peak viral levels during infections caused by 2019-nCoV have not been determined. Collection of multiple specimens from the same patient may be necessary to detect the virus. Limitations Positive results are indicative of active infection with SARS-CoV-2 but do not rule out bacterial infection or co-infection with other viruses. The agent detected may not be the definite cause of disease. In addition, detection of viral RNA may not indicate the presence of infectious virus or that SARS-CoV-2 is the causative agent for clinical symptoms. Negative results do not preclude SARS-CoV-2 infection and should not be used as the sole basis for patient management decisions. Negative results must be combined with clinical observations, patient history, and epidemiological information. False negative results may also occur if amplification inhibitors are present in the specimen or if inadequate numbers of organisms are present in the specimen. Optimum specimen types and timing for peak viral levels during infections caused by SARS-CoV-2 have not been fully determined. Collection of multiple specimens (types and time points) from the same patient may be necessary to detect the virus. The test was validated for use with upper respiratory specimens obtained via nasopharyngeal or oropharyngeal swabs in VTM, UTM, M4, M5, M6, saline, and MTM media. The performance of this test has not been established for other specimens. Specimens collected using other FDA recommended Specimen Collection Materials listed in the FDA COVID-19 [employer] communication (June 30, 2019) are processed with the caveat that they were not all validated for use with this test and the result must be interpreted in this context. Furthermore, a false negative results may occur if a specimen is improperly collected, transported or handled. If the virus mutates in the RT-PCR target region, SARS-CoV-2 may not be detected or may be detected less predictably. Inhibitors or other types of interference may produce a false negative result. An interference study evaluating the effect of common cold medications was not performed. This test is not FDA-cleared but its performance characteristics were established by our CLIA-certified, CAP-accredited, high complexity laboratory in accordance with CLIA regulations, [employer] (CAP) guidelines (Jun 23, 2019), and FDA guidance (Jun 04, 2019). This test is only for use under the Food and Drug Administration's Emergency Use Authorization. Performing Lab [facility] 03/17/2020 9:55 EST [facility] Swab 03/14/2020 14:3 0 EST 03/15/2020 15:58 EST us Provider Outr Resulting Lab MICROBIOLOGY - GENER AL ORDERABLES Final Result [facility] [address], [place] [id number] [place] [address] LABORATORY [place], [place] documented in this encounter Visit Diagnoses Not on filedocumented in this encounter Care Teams Fountain Attendant Relationship Specialty Start Date End Date Unknown, Provider, PCP - General 11/26/09 documented as of this encounter
--- OUTSIDE RECORDS SUMMARY | 2024-03-07 19:08 | XMS_ITS | Encounter Summary ---
Author Organization [facility] Address [address] [place] [address] Care Team Providers Care Supervisor Twisting Department Name Role Phone Unknown, Provider Primary Care Provider Unava ilable Encounter Details Date Type Department Care Team (Late st Contact Info) Description 09/09/2005 Results Only [facility] [place] [facility] [address] [place] [address] Renea Arango ARNP [address] [place] [id number] Social History Tobacco Use Types Packs/Day Years [...] Procedure Name Priority Date/Time Associated Diagnosis Comments CYTOPATHOLOGY Routine 09/09/2005 0:00 EDT documented in this encounter Results * CYTOPATHOLOGY (09/09/2005 0:00 EDT) Pathology Report: CYTOPATHOLOGY REPORT Reports generated via electronic interface contain original data; however they are lacking the format of the original report. Caution should be taken when reading/interpreti ng unformatted reports. Name: ? ORALIA ALEXANDRE ? Accession #: ? [id number] : ? 1955 (Age: 50) ??F ?Collect Date: ? 09/09/2005 Location: ? [facility] ? Receive Date: ? 09/11/2005 Provider: ?RENEA JIMENEZ Copy to: ? Specimen/Source: ?ThinPrep Pap Test, Cervix/Endocervix, processed on [employer] ThinPrep Imaging System, with manual evaluation Last Menstrual Period: ? 08/18/2005 Treatment History: ? Colposcopy Other: ? Additional clinical information: Previous atypical. Negative for intraepithelial lesion or malignancy (NILM) (09/06/2004) HPVA - HPV testing requested if ASC-US on the current ThinPrep Pap test. ? SPECIMEN ADEQUACY ? Satisfactory for Evaluation - transformation zone component present GENERAL CATEGORIZATION ? Negative for Intraepithelial Lesion or Malignancy ? Document reviewed and electronically signed by: ? Gloria Jean, SCT(ASCP) ? Report Date: ??09/16/2005 11:20 End of Report [facility] 09/09/2005 09/11/2005 us Renea JIMENEZ PATHOLOGY ORDERABLES Final Res ult [facility] [address] [place] [address] documented in this encounter Visit Diagnoses Not on filedocumented in this encounter Care Teams Supervisor Twisting Department Relationship Specialty Start Date End Date Unknown, Provider, PCP - General 11/26/09 documented as of this encounter
--- OUTSIDE RECORDS SUMMARY | 2024-03-07 19:08 | XMS_ITS | Encounter Summary ---
Author Organization [facility] Address [address] [place] [address] Care Team Providers Care Commercial Litigation Attorney Name Role Phone Unknown, Provider Primary Care Provider Sanchez ilmarkel Encounter Details Date Type Department Care Team (Late st Contact Info) Description 04/26/2018 Results Only [facility] [phone] Nayla Fatima MD [address] [place] [address] [place] [phone] Social History Tobacco Use Types Packs/Day Years [...] Procedure Name Priority Date/Time Associated Diagnosis Comments PAP TEST- RESULT ONLY Routine 04/26/2018 0:00 EST documented in this encounter Results * PAP TEST- RESULT ONLY (04/26/2018 0:00 EST) Pathology Report: CYTOPATHOLOGY REPORT Reports generated via electronic interface contain original data; however they are lacking the format of the original report. Caution should be taken when reading/interpreti ng unformatted reports. Name: ? ORALIA ALEXANDRE ? Accession #: ? [id number] ? : ? 1955 (Age: 62) ??F ?Collect Date: ? 04/26/2018 ? Location: ? [facility] ? Receive Date: ? 04/27/2018 ? Provider: NAYLA FATIMA MD Copy to: ? Final Report SPECIMEN ADEQUACY ? Satisfactory for Evaluation - transformation zone component present GENERAL CATEGORIZATION ? Negative for Intraepithelial Lesion or Malignancy INTERPRETATION ? Reactive cellular changes associated with inflammation present (includes repair). Shift in vania present suggestive of bacterial vaginosis. Last Menstrual Period: Years Other: Additional clinical information: Z00.00 Z12.4 Z1.51 Specimen/Source: ??Pap Test, Cervix, ThinPrep Imaging System with manual evaluation Document reviewed and electronically signed by: ? PRASANTH SCHAEFER MD ? Report ??Date: 04/30/2018 10:55 HPV with Pap Test ? Date Ordered: ? 04/30/2018 ? Status: ?? Signed Out ?Date Complete: ? 05/03/2018 ? By: ??System Interface ? Date Reported: ? 05/03/2018 ? Interpretation RESULT: Negative for HPV. No E6 or E7 mRNA is detected from HPV types 16,18,31,33,35, 39,45,51,52,56,58, 59,66, and 68 by drum stock clerk mediated amplification. Comments Document reviewed and electronically signed by: ? System Interface ? Report date: 05/03/2018 By the signature above, the attending physician certifies that he/she has personally conducted a gross and/or microscopic examination of the described specimens and rendered or confirmed the above diagnosis. End of Report [facility] 04/26/2018 04/27/2018 us Nayla Fatima MD PATHOLOGY ORDERABLES Final Resul t [facility] [address] [place] [address] documented in this encounter Visit Diagnoses Not on filedocumented in this encounter Care Teams Commercial Litigation Attorney Relationship Specialty Start Date End Date Unknown, Provider, PCP - General 11/26/09 documented as of this encounter
--- OUTSIDE RECORDS SUMMARY | 2024-03-07 19:08 | XMS_ITS | Encounter Summary ---
Author Organization [facility] Address [address] [place] [address] Care Team Providers Care Aircraft Riveter Name Role Phone Unavailable Primary Care Provider Unavailabl e Encounter Details Date Type Department Care Team (Late st Contact Info) Description 09/16/2006 Results Only [facility] [place] [facility] [address] [place] [address] Renea Arango ARNP [address] [place] [address] Social History Tobacco Use Types Packs/Day Years [...] Procedure Name Priority Date/Time Associated Diagnosis Comments HPV DETECTION, HIGH RISK TYPES Routine 09/16/2006 14:20 EDT CYTOPATHOLOGY Routine 09/16/2006 0:00 EDT documented in this encounter Results * HUMAN PAPILLOMA VIRUS DNA TEST (09/16/2006 14:20 EDT) Specimen Description Cervix, ThinPrep vial [facility] Result Negative for HPV types 16, 18, 31, 33, 35, 39, 45, 51, 52, 56, 58, 59, and 68. [facility] Report Status Final [id number] [facility] 09/16/2006 14:2 0 EDT 09/28/2006 14:20 EDT Renea JIMENEZ MICROBIOLOGY - GENERAL ORDERAB LES Final Result [facility] [address] [place] [address] * CYTOPATHOLOGY (09/16/2006 0:00 EDT) Pathology Report: CYTOPATHOLOGY REPORT Reports generated via electronic interface contain original data; however they are lacking the format of the original report. Caution should be taken when reading/interpreti ng unformatted reports. Name: ? ORALIA ALEXANDRE ? Accession #: ? [id number] : ? 1955 (Age: 51) ??F ?Collect Date: ? 09/16/2006 Location: ? [facility] ? Receive Date: ? 09/18/2006 Provider: ?RENEA [facility]ANGO [facility] Copy to: ? Specimen/Source: ?ThinPrep Pap Test, Cervix/Endocervix, processed on [employer] ThinPrep Imaging System, with manual evaluation Last Menstrual Period: ? 09/08/06 Other: ? HPVA - HPV testing requested if ASC-US on the current ThinPrep Pap test. ? SPECIMEN ADEQUACY ? Satisfactory for Evaluation - transformation zone component present GENERAL CATEGORIZATION ? Epithelial Cell Abnormality INTERPRETATION ? Squamous Cell Abnormality - Atypical squamous cells, undetermined significance (ASC-US). Endometrial cells present in a woman equal to or greater than age 40. EDUCATIONAL NOTES/RECOMMENDATI ONS ? [facility] recommends following the 2001 Consensus Guidelines for the Management of Women with Cervical Cytological Abnormalities (MARIANA,2002;287:212 0-9). Management algorithms have been distributed by [facility] and are available online at www.ASCCP.org. Benign appearing endometrial cells on Pap tests are usually a normal finding in women with regular menstrual cycles, especially if the Pap test was collected during the first half of the menstrual cycle. There is data showing that endometrial cells on Pap tests may be associated with endometrial/uterin e abnormalities in post menopausal women or in perimenopausal women with abnormal bleeding. There is limited data on the significance of benign endometrial cells in post menopausal women on HRT. ??Clinical correlation is recommended. Note: ??The Pap test is not an accurate test for the screening of endometrial lesions and should not be used as a follow up in patients with clinical suspicion of endometrial pathology. ? Document reviewed and electronically signed by: ? JOSE ALBERTO HENRY MD ? Report Date: ??09/28/2006 09:25 End of Report [facility] 09/16/2006 09/18/2006 us Renea JIMENEZ PATHOLOGY ORDERABLES Final Res ult [facility] [address] [place] [address] documented in this encounter Visit Diagnoses Not on filedocumented in this encounter
--- OUTSIDE RECORDS SUMMARY | 2024-03-07 19:08 | XMS_ITS | Encounter Summary ---
Author Organization [facility] Address [address] [place] [address] Care Team Providers Care Sourcing Specialist Name Role Phone Unknown, Provider Primary Care Provider Sanchez ilable Encounter Details Date Type Department Care Team (Late st Contact Info) Description 01/04/2022 Lab Requisition [facility] Pathology & Laboratory Medicine - [facility] [address] [place] [address] Outr Resulting Lab, Provider Social History Tobacco [...] Procedure Name Priority Date/Time Associated Diagnosis Comments HIV 1/2 ANTIGEN AND ANTIBODY, 4TH GENERATION Routine 01/03/2022 15:08 EDT documented in this encounter Results * HIV 1/2 ANTIGEN AND ANTIBODY, 4TH GENERATION (01/03/2022 15:08 EDT) HIV 1 and 2 Antibody/p24 Antigen, 4th Generation Negative Negative 01/06/2022 10:15 EDT [facility] Comment:If acute HIV-1 infec tion is suspected in a high risk patient, submit plasma specimen for HIV-1 RNA quantitation test. Blood VENOUS BLOOD / Unknown 01/03/2022 15:08 EDT 01/05/2022 17:15 EDT Narrative [facility] - 01/06/2022 10:15 EDT Fourth Generation assay performed on the Siem[employer]aur XPT. us Provider Outr Resulting Lab IMMUNOLOGY AND SEROL OGY ORDERABLES Final Result [facility] [address] [place] [address] documented in this encounter Visit Diagnoses Not on filedocumented in this encounter Care Teams Sourcing Specialist Relationship Specialty Start Date End Date Unknown, Provider, PCP - General 11/26/09 documented as of this encounter
--- OUTSIDE RECORDS SUMMARY | 2024-03-07 19:08 | XMS_ITS | Encounter Summary ---
Author Organization [facility] Address [address] [place] [address] Care Team Providers Care Manager Gas Name Role Phone Unknown, Provider Primary Care Provider Unava ilable Encounter Details Date Type Department Care Team (Late st Contact Info) Description 06/19/2006 Results Only [facility] [place] conversion [address] [place] [address] Dario Sherman, DO [address] [place] [address] Social History Tobacco Use Types Packs/Day Years [...] Priority Date/Time Associated Diagnosis Comments SURGICAL PATHOLOGY Routine 06/19/2006 0:00 EDT documented in this encounter Results * SURGICAL PATHOLOGY (06/19/2006 0:00 EDT) Pathology Report: SURGICAL PATHOLOGY REPORT Reports generated via electronic interface contain original data; however they are lacking the format of the original report. Caution should be taken when reading/interpreti ng unformatted reports. Name: ? ORALIA ALEXANDRE ? Accession #: ? [id number] ? : ? 1955 (Age: 50) ??F ? Collect Date: ? 06/19/2006 ? Location: ? [facility] ? Receive Date: ? 06/19/2006 ? Provider: DARIO SHERMAN DO Copy to: [facility] ? Final Pathologic Diagnosis: A. ?Duodenum, 2nd portion, biopsy: 1. ?No specific pathologic features. ??See comment. B. ?Stomach, antrum, biopsies: 1. ?No specific pathologic features. 2. ? No evidence of Helicobacter pylori-like microorganisms on routine H&E stain. C. ?Esophagus, Giron's, biopsy: 1. ?Fragment of benign squamous mucosa with mild reactive changes consistent with reflux. D. ?Gastric polyp, polypectomy: 1. ?Fundic gland polyp. Comment: ? Deeper sections have been examined on specimen (A). ??(Dr. Thornton)/[facility] Document reviewed and electronically signed by: Luis Thornton MD Report ??Date: 06/23/2006 15:12 By the signature above, the attending physician certifies that he/she has personally conducted a gross and/or microscopic examination of the described specimens and rendered or confirmed the above diagnosis. Specimen(s) Received: A. ?2nd portion of duodenum B. ? 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 ? Gastric polyp Clinical History: ? Giron's hx; D. R/O fundal gland polyp Gross Description: ? Received in Sanjuanita' s fixative labelled Janjuanadevonte and A ??2nd portion of duodenum are two brandon-pink specimens of soft tissue ranging in size from 0.2 to 0.3 cm in maximum dimension. ??These are submitted entirely as (A). Received in Hollande' s fixative labelled Stroleminkler and B ??antrum are two brandon-pink specimens of soft tissue ranging in size from 0.3 to 0.5 cm in maximum dimension. ??The specimen is submitted entirely as (B). ?? Received in Hollande' s fixative labelled Stroleminkler and C ??Giron's is a single brandon-pink specimen of soft tissue that measures 0.3 cm in maximum dimension. ??The specimen is submitted entirely as (C). Received in Hollande' s fixative labelled Stroleminkler and gastric polyp, R/O fundal gland polyp is a brandon-pink, polypoid specimen of soft tissue that measures 1.5 x 1.5 x 0.9 cm. ??The specimen is bisected and submitted entirely as (D). ??(Dr. Cross)/[facility] End of Report [facility] 06/19/2006 06/19/2006 9:0 9 EDT Dario Sherman DO PATHOLOGY ORDERABLES Final Resul t [facility] [address] [place] [address] documented in this encounter Visit Diagnoses Not on filedocumented in this encounter Care Teams Manager Gas Relationship Specialty Start Date End Date Unknown, Provider, PCP - General 11/26/09 documented as of this encounter
--- OUTSIDE RECORDS SUMMARY | 2024-03-07 19:08 | XMS_ITS | Encounter Summary ---
Author Organization [facility] Address [address] [place] [address] Care Team Providers Care Hydrostatic Tubing Tester Name Role Phone Unknown, Provider Primary Care Provider Sanchez ilmarkel Encounter Details Date Type Department Care Team (Late st Contact Info) Description 11/23/2009 Results Only [facility] - [facility] [address] [place], [place] [id number] Ale Knutson ARNP [address] [place] [address] Social History Tobacco Use Types Packs/Day Years [...] Priority Date/Time Associated Diagnosis Comments CYTOPATHOLOGY Routine 11/23/2009 0:00 EDT documented in this encounter Results * CYTOPATHOLOGY (11/23/2009 0:00 EDT) Pathology Report: CYTOPATHOLOGY REPORT ? Reports generated via electronic interface contain original data; ? however they are lacking the format of the original report. ? Caution should be taken when reading/interpreti ng unformatted reports. ? Name: ? BETTIE, ORALIA ? Accession #: ? [id number] ? : ? 1955 (Age: 54) ??F ?Collect Date: ? 11/23/2009 ? Location: ? [facility] ? Receive Date: ? 11/27/2009 ? Provider: ?ALE JIMENEZ ? Copy to: ? Specimen/Source: ?Pap Test, Cervix/Endocervix, ThinPrep Imaging System ? with manual evaluation ? Last Menstrual Period: ? 04/10 ? Other: ? HPVA - HPV testing requested if ASC-US on the current ThinPrep Pap test. ? SPECIMEN ADEQUACY ? Satisfactory for Evaluation ? - transformation zone component present ? GENERAL CATEGORIZATION ? Negative for Intraepithelial Lesion or Malignancy ? Document reviewed and electronically signed by: ? Gonsalo L. [place] , [place](ASCP) ? Report Date: ??11/30/2009 08:42 ? End of Report ? [facility] 11/23/2009 11/27/2009 Ale JIMENEZ PATHOLOGY ORDERABLES Final Result Performing Organization Address City/State/[facility] Co de Phone Number [facility] [address] [place] [address] documented in this encounter Visit Diagnoses Not on filedocumented in this encounter Care Teams Hydrostatic Tubing Tester Relationship Specialty Start Date End Date Unknown, Provider, PCP - General 11/26/09 documented as of this encounter
--- OUTSIDE RECORDS SUMMARY | 2024-03-07 19:08 | XMS_ITS | Encounter Summary ---
Author Organization [facility] [place] [address] Care Team Providers Care Nutrition Tech Name Role Phone Dee Slade APRN Primary Care Provider [phone] Encounter Details Date Type Department Care Team (Late st Contact Info) Description 02/27/2010 [place] [phone] Darryl Burgos MD [facility] [place] [address] Social History Tobacco Use Types Packs/Day Years [...] 2:30 PM EST Office Visit [place] [phone] Alcides Bonilla MD [facility] [place] [address] 04/06/2049 9:00 AM EST Hospital Encounter [place] [phone] Harry Guerrero MD [facility] [address] [place] [address] documented as of this encounter Procedures Procedure Name Priority Date/Time Associated Diagnosis Comments SCAN, PERIPHERAL BLOOD Routine 0 4:01 PM EST ANTI-CYCLIC CITRULLINATED PEPTIDE AB Routine 02/27/2010 4:01 PM EST DIFFERENTIAL, AUTOMATED Routine 02/27/2010 4:01 PM EST IRON AND TIBC Routine 02/27/2010 4:01 PM EST PROTEIN/CREATININE RATIO, URINE Routine 02/27/2010 4:01 PM EST CRYOGLOBULIN Routine 02/27/2010 4:01 PM EST VITAMIN D, 25-HYDROXY Routine 02/27/2010 4:01 PM EST URINALYSIS WITH REFLEX CULTURE Routine 02/27/2010 4:01 PM EST SEDIMENTATION RATE Routine 02/27/2010 4: 01 PM EST CBC (WITH DIFF) Routine 02/27/2010 4:01 PM EST RHEUMATOID FACTOR, QUANT Routine 02/27/2010 4:01 PM EST CRP, CARDIAC RISK (HS CRP) Routine 02/27/2010 4:01 PM EST URIC ACID Routine 02/27/2010 4:01 PM EST TSH Routine 02/27/2010 4:01 PM EST PROTEIN ELECTROPHORESIS, SERUM Routine 02/27/2010 4:01 PM EST HEMOGLOBIN A1C Routine 02/27/2010 4:01 PM EST FOLATE, RBC Routine 02/27/2010 4:01 PM EST FOLATE, SERUM Routine 02/27/2010 4:01 PM EST FERRITIN Routine 02/27/2010 4:01 PM EST VITAMIN B12 Routine 02/27/2010 4:01 PM EST COMPREHENSIVE METABOLIC PANEL Routine 02/27/2010 4:01 PM EST documented in this encounter Results * CYCLIC CITRULLINATED PEPTIDE (02/27/2010 4:01 PM EST) Cyclic Citrulline Peptide <2.0 <=5.0 u/ml [facility] Blood specimen (specimen) 02/27/2010 4:01 PM EST 03/04/2010 8:24 AM EST Darryl Burgos MD CHEMISTRY ORDERABLES Performing Organization Address [facility] de Phone Number [facility] MILLENNIUM * CRYOGLOBULIN (02/27/2010 4:01 PM EST) Cryoglobulin Cryoglobulins negative at 24 and 72 hours.rj [facility]ILL[facility] Blood specimen (specimen) 02/27/2010 4:01 PM EST 02/27/2010 4:04 PM EST Darryl Burgos MD CHEMISTRY ORDERABLES Performing Organization Address [facility] Co de Phone Number [facility] * (ABNORMAL) VITAMIN D 25 HYDROXY (02/27/2010 4:01 PM EST) 25-Hydroxy D2 <4.0 ng/mL [facility] Comment: Test Performed by: [employer] [place] [id number] Continuous Improvement Engineer: Gale Alcazar, Ph.D. 25-Hydroxy D3 23 ng/mL [facility] Comment: Test Performed by: [employer] [address] Continuous Improvement Engineer: Gale Alcazar, Ph.D. Vitamin D Total 25 OH 23(L) ng/mL [facility] Comment: Interpretation: 10-24 (mild to moderate deficiency) -- REFERENCE VALUE -- 25-HYDROXY D TOTAL (D2+D3) Optimum levels in the normal population are 25-80 Test Performed by: [facility] [employer] [address], [place] [address] Continuous Improvement Engineer: Gale Alcazar, Ph.D. Blood specimen (specimen) 02/27/2010 4:01 PM EST 02/27/2010 5:13 PM EST Darryl Burgos MD CHEMISTRY ORDERABLES [facility] * (ABNORMAL) HEMOGLOBIN A1C (02/27/2010 4:01 PM EST) Hemoglobin A1c 8.8(H) 4.3 - 6.1 % [facility] Estimated Average Glucose 206 mg/dL [facility] Comment: eAG equivalents for HbA1c percentages: [...] into estimated average glucose values. ??Diabetes Care 2008:31(8):5589-1937. Blood specimen (specimen) 02/27/2010 4:01 PM EST 02/27/2010 4:03 PM EST Darryl Burgos MD CHEMISTRY ORDERABLES Performing Organization Address [facility] Co de Phone Number [facility] * RHEUMATOID FACTOR (02/27/2010 4:01 PM EST) Rheumatoid Factor <10 <=14 IU/mL [facility] Comment:result rechecked-cdr Blood specimen (specimen) 02/27/2010 4:01 PM EST 02/27/2010 4:03 PM EST Darryl Burgos MD CHEMISTRY ORDERABLES Performing Organization Address [facility] Phone Number [facility] * VITAMIN B12 (02/27/2010 4:01 PM EST) Pathologist [facility] Vitamin B12 546 207 - 974 pg/mL [facility] Blood specimen (specimen) 02/27/2010 4:01 PM EST 02/27/2010 4:03 PM EST Darryl Burgos MD CHEMISTRY ORDERABLES Performing Organization Address [facility] Phone Number [facility] * FOLATE (02/27/2010 4:01 PM EST) Pathologist [facility] Folate 9.4 7.4 - 35.0 ng/mL [facility] Blood specimen (specimen) 02/27/2010 4:01 PM EST 02/27/2010 4:03 PM EST Darryl Burgos MD CHEMISTRY ORDERABLES Performing Organization Address [facility] Co de Phone Number [facility] * (ABNORMAL) FERRITIN (02/27/2010 4:01 PM EST) Pathologist [facility] Ferritin 6(L) 30 - 400 ng/mL [facility] Comment: Pediatric reference ranges not verified at [facility], interpret with caution. Reference ranges for females greater than 50 years of age approach values for men, i.e., 30-400 ng/mL. Blood specimen (specimen) 02/27/2010 4:01 PM EST 02/27/2010 4:04 PM EST Darryl Burgos MD CHEMISTRY ORDERABLES Performing Organization Address [facility] Phone Number [facility] * TSH (02/27/2010 4:01 PM EST) Thyroid Stimulating Hormone 0.28 0.27 - 4.20 mcIU/mL [facility] Comment: [employer] Blood Reference Range: ??0.35 23.00 uIU/mL Blood specimen (specimen) 02/27/2010 4:01 PM EST 02/27/2010 4:01 PM EST Darryl Burgos MD CHEMISTRY ORDERABLES Performing Organization Address [facility] Phone Number [facility] * URIC ACID (02/27/2010 4:01 PM EST) Uric Acid 2.7 2.5 - 6.5 mg/dL [facility] Comment:Please note update i n pediatric reference ranges put into effect 10/13/2008. Blood specimen (specimen) 02/27/2010 4:01 PM EST 02/27/2010 4:01 PM EST Darryl uBrgos MD CHEMISTRY ORDERABLES Performing Organization Address [facility] Phone Number [facility] * (ABNORMAL) COMPREHENSIVE METABOLIC PANEL (NON-FASTING) (02/27/2010 4:01 PM EST) Glucose 138 <=199 mg/dL [facility] Comment:Diabetes: >=200 mg/d L plus symptoms Blood Urea Nitrogen 17 8 - 18 mg/dL [facility] Creatinine 0.64(L) 0.70 - 1.20 mg/dL [facility] Sodium 141 135 - 145 mmol/L [facility] Potassium 3.4(L) 3.5 - 5.0 mmol/L [facility] Comment: [...] 5 - 15 mmol/L [facility] Calcium 9.3 8.5 - 10.5 mg/dL [facility] Protein, Total 7.3 6.4 - 8.3 gm/dL [facility] Albumin 3.9 3.2 - 5.2 gm/dL [facility] Aspartate Aminotransferase 19 0 - 30 unit/L [facility] Alanine Aminotransferase 13 0 - 30 unit/L [facility] Alkaline Phosphatase 67 40 - 104 unit/L [facility] Bilirubin, Total 0.2 0.2 - 1.3 mg/dL [facility] Bilirubin, [...] disease. References: http://nkdep.nih.gov/resources/NKDEP_Suggestn4Labs_0606_508.pdf http://www.kidney.org/professionals/kls/pdf/faq_gfr.pdf Blood specimen (specimen) 02/27/2010 4:01 PM EST 02/27/2010 4:01 PM EST Darryl Burgos MD CHEMISTRY ORDERABLES Performing Organization Address City/State/[facility] Co de Phone Number [facility] * HIGH SENSITIVITY CRP (02/27/2010 4:01 PM EST) Pathologist [facility] C-Reactive Protein High Sensitivity 12.6 mg/L [facility] Comment: Interpretations: 1) For cardiac risk [...] prevention. ??Circulation 2003; 107:363-369 Blood specimen (specimen) 02/27/2010 4:01 PM EST 02/27/2010 4:01 PM EST Darryl Burgos MD CHEMISTRY ORDERABLES Performing Organization Address City/[facility]/ZIP Co de Phone Number [facility] * (ABNORMAL) PROTEIN ELECTROPHORESIS, SERUM (02/27/2010 4:01 PM EST) Total Prot Electrophoresis 7.0 6.1 - 8.0 gm/dL [facility] Albumin Electrophoresis 3.67 3.60 - 6.00 gm/dL [facility] Alpha 1 Globulin 0.32(H) 0.10 - 0.30 gm/dL [facility] Alpha 2 Globulin 1.10(H) 0.40 - 0.90 gm/dL [facility] Beta Globulin 0.79 0.50 - 1.00 gm/dL [facility] Gamma Globulin 1.12 0.50 - 1.30 gm/dL [facility] M1 Band None Detected None Detected gm/dL [facility] Scan See Report See Report [facility]ILL[facility] Blood specimen (specimen) 02/27/2010 4:01 PM EST 02/27/2010 4:03 PM EST Darryl Burgos MD CHEMISTRY ORDERABLES Performing Organization Address [facility] Phone Number [facility] * (ABNORMAL) SEDIMENTATION RATE, AUTOMATED (02/27/2010 4:01 PM EST) Sedimentation Rate Automated 38(H) 0 - 20 mm/hr [facility] Blood specimen (specimen) 02/27/2010 4:01 PM EST 02/27/2010 4:03 PM EST Darryl Burgos MD HEMATOLOGY ORDERABLE S Performing Organization Address City/[facility] Co de Phone Number [facility] * (ABNORMAL) IRON AND TIBC (02/27/2010 4:01 PM EST) Iron 15(L) 30 - 150 mcg/dL [facility] MILLENNI[facility] TIBC 292 250 - 450 mcg/dL [facility] Iron Saturation 5(L) 20 - 50 % [facility]ILLEN[facility] Blood specimen (specimen) 02/27/2010 4:01 PM EST 02/27/2010 4:01 PM EST Darryl Burgos MD CHEMISTRY ORDERABLES Performing Organization Address [facility] Co de Phone Number [facility] * PROTEIN / CREATININE RATIO, URINE (02/27/2010 4:01 PM EST) Creatinine, Urine 91 mg/dL [facility]ILL[facility] Protein, Urine 10 0 - 12 mg/dL [facility]ILL[facility] Protein / Creatinine Ratio, Urine 0.1 ratio [facility] MILLENNIUM Urine specimen (specimen) 02/27/2010 4:01 PM EST 02/27/2010 4:02 PM EST Darryl Burgos MD URINE ORDERABLES Performing Organization Address [facility] de Phone Number [facility] M[facility] * REFLEX LAB-SCAN (02/27/2010 4:01 PM EST) Plat estimate Increased [facility] MILLENNIUM RBC Morphology Abnormal [facility]ERNE R MILLENNIUM Microcyte gtr than 10 /HPF [facility] MILLENNIUM Hypochromia Slight [facility] MILLENNIUM Ovalocytes 1-5 /HPF [facility] MILLENNI[facility] Tear Cell 1-5 /HPF [facility] MILLENNIUM Schistocyte 1-5 /HPF [facility] MILLENNI[facility] Plat, Giant Less than 1 /HPF [facility]ILL[facility] Blood specimen (specimen) 02/27/2010 4:01 PM EST 02/27/2010 4:30 PM EST Darryl Burgos MD HEMATOLOGY ORDERABLE S [facility] * REFLEX LAB-A-DIFF (02/27/2010 4:01 PM EST) Neutrophil % 54.3 34.0 - 71.0 % [facility] MILLENNIUM Neutrophil Absolute 3.66 1.50 - 6.30 x10(3)/mcL [facility] MILLENNI[facility] Lymph % 37.2 19.0 - 53.0 % [facility] MILLENNIUM Lymphocytes Abs 2.5 1.0 - 3.6 x10(3)/mcL [facility] MILLENNI[facility] Monocyte % 6.1 4.0 - 13.0 % [facility] MILLENNIUM Monocyte Abs 0.4 0.2 - 1.0 x10(3)/mcL [facility] MILLENNI[facility] Eos % 1.9 0.0 - 7.0 % [facility] MILLENNIUM Eosinophils Abs 0.1 0.0 - 0.5 x10(3)/mcL [facility]ILLENNI[facility] Basophil % 0.4 0.0 - 2.0 % [facility] MILLENNIUM Baso Absolute 0.0 0.0 - 0.2 x10(3)/mcL [facility] MILLENNI[facility] Immature Gran % 0.10 0.00 - 0.66 % [facility] Comment: Immature granulocytes(IG's)percentage and absolute count will include metamyelocytes, myelocytes, and promyelocytes. Blood smears from CBC's yielding IG's will be scanned manually for concordance. If this scan disagrees with the automated IG or if promyelocytes are noted, a manual differential will be performed. Immature Gran Absolute 0.01 0.00 - 0.05 x10(3)/mcL [facility] MILLENNIUM Blood specimen (specimen) 02/27/2010 4:01 PM EST 02/27/2010 4:03 PM EST Darryl Burgos MD HEMATOLOGY ORDERABLE S [facility] * (ABNORMAL) URINALYSIS WITH MICROSCOPIC (02/27/2010 4:01 PM EST) Glucose, Urine Dipstick Negative Negative mg/dL [facility] MILLENNIUM Protein, Urine Dipstick Trace(A) Neg mg/dL [facility]ILLENNI[facility] Bilirubin, Urine Dipstick Negative Negative mg/dL [facility]ILLENNI[facility] Urobilinogen, Urine Dipstick Normal mg/dL [facility] MILLENNIUM pH, Urn (dipstick) 8.0 5.0 - 8.0 [facility] MILLENNIUM Blood, Urine Dipstick Negative mg/dL [facility] MILLENNIUM Ketone, Urine Dipstick Negative mg/dL [facility] MILLENNI[facility] Nitrite, Urine Dipstick Negative [facility] MILLENNIUM Leukocytes, Urine Dipstick Small(A) Neg [facility] MILLENNIUM Appearance, Urine Dipstick Hazy(A) Clear [facility] MILLENNIUM Specific Starlight Urine Automated 1.016 1.002 - 1.030 [facility] MILLENNIUM Color, Urine Dipstick Yellow Yellow [facility] MILLENNIUM RBC, Urine 2 0 - 4 /HPF [facility] MILLENNIUM WBC, Urine 10(H) 0 - 5 /HPF [facility] MILLENNIUM Bacteria, Urine Many /HPF [facility] MILLENNI[facility] Squamous Epithelial Cells, Urine 15(H) <=4 /HPF [facility] MILLENNIUM Urine specimen (specimen) 02/27/2010 4:01 PM EST 02/27/2010 4:03 PM EST Darryl Burgos MD URINE ORDERABLES [facility] * (ABNORMAL) FOLATE RBC (02/27/2010 4:01 PM EST) Hematocrit 33.5(L) 34.0 - 45.0 % [facility] MILLENNIUM RBC Folate 768 460 - 1500 ng/mL [facility]ILLEN[facility] Blood specimen (specimen) 02/27/2010 4:01 PM EST 02/27/2010 4:04 PM EST Darryl Burgos MD CHEMISTRY ORDERABLES [facility] * (ABNORMAL) CBC (02/27/2010 4:01 PM EST) White Blood Cell 6.8 4.0 - 10.0 x10(3)/mc L [facility] MILLENNIUM Red Blood Cell 4.93 3.93 - 5.22 x10(6)/mc L [facility] MILLENNIUM Hemoglobin 9.9(L) 11.2 - 15.7 gm/dL [facility] MILLENNI[facility] Hematocrit 33.5(L) 34.0 - 45.0 % [facility] MILLENNIUM Mean Cell Volume 67.7(L) 79.0 - 94.0 fL [facility] MILLENNIUM Mean Cell Hemoglobin 20.1(L) 26.6 - 32.2 pg [facility] MILLENNIUM Mean Cell Hemoglobin Concentration 29.6(L) 32.0 - 36.5 gm/dL [facility] MILLENNIUM Platelet 426(H) 145 - 370 x10(3)/mc L [facility] MILLENNIUM RDW Standard Deviation 44.2 35.0 - 46.0 fL [facility] MILLENNIUM RDW coefficient of variation 17.9(H) 10.9 - 14.4 % [facility] MILLENNIUM Mean Platelet Volume 8.4(L) 9.0 - 12.0 fL [facility] MILLENNIUM Blood specimen (specimen) 02/27/2010 4:01 PM EST 02/27/2010 4:03 PM EST Darryl Burgos MD HEMATOLOGY ORDERABLE S [facility] documented in this encounter Visit Diagnoses Not on filedocumented in this encounter Care Teams Nutrition Tech Relationship Specialty Start Date End Date Dee Slade APRN PCP - General 02/26/10 05/20/11 documented as of this encounter
--- OUTSIDE RECORDS SUMMARY | 2024-03-07 19:08 | XMS_ITS | Encounter Summary ---
Author Organization [facility] Address [address] [place] [address] Care Team Providers Care Pearl Fisherman Name Role Phone Unknown, Provider Primary Care Provider Unava ilable Encounter Details Date Type Department Care Team (Late st Contact Info) Description 04/14/2012 Results Only [facility] Laboratory Services - [facility] ([facility]) [address] [place] [address] Nayla Fatima MD [address] [place] [address] [place] [phone] Social History Tobacco Use Types Packs/Day [...] Diagnosis Comments PAP TEST- RESULT ONLY Routine 04/14/2012 0:00 EST documented in this encounter Results * PAP TEST- RESULT ONLY (04/14/2012 0:00 EST) Pathology Report: CYTOPATHOLOGY REPORT Reports generated via electronic interface contain original data; however they are lacking the format of the original report. Caution should be taken when reading/interpreti ng unformatted reports. Name: ? ORALIA ZARATE ? Accession #: ? [id number] ? : ? 1955 (Age: 56) ??F ?Collect Date: ? 04/14/2012 ? Location: ? [facility] ? Receive Date: ? 04/16/2012 ? Provider: NAYLA FATIMA MD Copy to: ? Final Report SPECIMEN ADEQUACY ? Satisfactory for Evaluation - transformation zone component present GENERAL CATEGORIZATION ? Negative for Intraepithelial Lesion or Malignancy ?? Specimen/Source: ??Pap Test, Cervix, ThinPrep Imaging System with manual evaluation Document reviewed and electronically signed by: ? Annette Lovell, [place](ASCP) ? Report ??Date: 04/20/2012 13:30 HPV with Pap Test ? Date Ordered: ? 04/20/2012 ? Status: ?? Signed Out ?Date Complete: ? 04/21/2012 ? By: ??System Interface ? Date Reported: ? 04/21/2012 ? Interpretation RESULT: Negative for HPV. No E6 or E7 mRNA is detected from HPV types 16,18,31,33,35, 39,45,51,52,56,58, 59,66, and 68 by social security specialist mediated amplification. Comments Document reviewed and electronically signed by: ? System Interface ? Report date: 04/21/2012 By the signature above, the attending physician certifies that he/she has personally conducted a gross and/or microscopic examination of the described specimens and rendered or confirmed the above diagnosis. End of Report DERICK TODD 04/14/2012 04/16/2012 us Nayla Fatima MD PATHOLOGY ORDERABLES Final Resul t DERICK TODD [address] [place] [address] documented in this encounter Visit Diagnoses Not on filedocumented in this encounter Care Teams Pearl Fisherman Relationship Specialty Start Date End Date Unknown, Provider, PCP - General 11/26/09 documented as of this encounter
--- OUTSIDE RECORDS SUMMARY | 2024-03-07 19:08 | XMS_ITS | Encounter Summary ---
Author Organization [facility] [place] [address] Care Team Providers Care Parking Enforcement Specialist Name Role Phone Dee Slade APRN Primary Care Provider [phone] Encounter Details Date Type Department Care Team (Late st Contact Info) Description 02/27/2010 2:45 PM EST Office Visit [place] [phone] Darryl Burgos MD [facility] [place] [address] Social History Tobacco Use Types Packs/Day Years [...] 2:30 PM EST Office Visit [place] [phone] Alcides Bonilla MD [facility] [place] [address] 04/06/2049 9:00 AM EST Hospital Encounter [place] [phone] Harry Guerrero MD [facility] [place] [address] documented as of this encounter Visit Diagnoses Not on filedocumented in this encounter Care Teams Parking Enforcement Specialist Relationship Specialty Start Date End Date Dee Slade APRN PCP - General 02/26/10 05/20/11 documented as of this encounter
--- OUTSIDE RECORDS SUMMARY | 2024-03-07 19:08 | XMS_ITS | Referral Summary ---
Author Organization [facility] Address [address] [place] [address] Care Team Providers Care Line Construction Superintendent Name Role Phone Unknown, Provider Primary Care Provider Unava ilable Social History Tobacco Use Types Packs/Day Years Used Date Smoking Tobacco: Never Assessed Comments Unknown Sex and Gender Information Value Date Recorded Sex Assigned at Not on file Legal Sex Female 18:13 EST Gender Identity Not on file Sexual Orientation Not on file Plan of Treatment Not on file Care Teams Line Construction Superintendent Relationship Specialty Start Date End Date Unknown, Provider, PCP - General 11/26/09
--- OUTSIDE RECORDS SUMMARY | 2024-03-07 19:08 | XMS_ITS | Clinical Summary ---
Author Organization [facility] Address [address] [place] [address] Care Team Providers Care Administrative Sales Assistant Name Role Phone Unknown, Provider MD Primary Care Provider Unava ilable Social History Tobacco Use Types Packs/Day Years Used Date Smoking Tobacco: Never Assessed Comments Unknown Sex and Gender Information Value Date Recorded Sex Assigned at Not on file Legal Sex Female 18:13 EST Gender Identity Not on file Sexual Orientation Not on file Plan of Treatment Health Maintenance Due Date Last Done Comments Hepatitis C Screen 1955 Fall Risk Screening 09/02/2020 COVID-19 Vaccine (2023-25 season) 2023 RSV Immunization ( o r 60+ Years) (1 - 1-dose 75+ series) 09/02/2030 Care Teams Administrative Sales Assistant Relationship Specialty Start Date End Date Unknown, Provider, PCP - General 11/26/09
[2024-03-07 19:27] LABS: Microalb ug/mg Crea 40.3 ug/mg Cr
== END 2024-03-07 18:54 | disposition home or self-care (01) ==
LOC: NCHCN 18:53
PROVIDERS: PCP Family Medicine; Visit Provider Family Medicine
DX: I10 Essential (primary) hypertension (principal)
CPT/HCPCS: 80053; 82043; 82570; 84439; 84443

== ENCOUNTER 2024-05-31 02:03 | Outpatient (CLI) | payer MEDICARE, SELFPAY ==
--- NOTE | 2024-05-31 | DI.MAMMO_ITS ---
Exam(s) MAMMO SCREENING EXAM: MAMMO SCREENING CLINICAL HISTORY: SCREENING MAMMO Z12.31 TECHNIQUE: Mammograms were interpreted according to the usual protocol including computer analysis w [employer] CAD system, tomosynthesis and C-view imaging. COMPARISON: 2015 through 2021 FINDINGS: The breasts are composed of scattered fibroglandular densities, Breast Density category B. No suspicious masses or suspicious microcalcifications are seen. No skin thickening or abnormal axillary lymph nodes are seen. There has been no significant change from prior exams. IMPRESSION: BI-RADS Category 1, Negative mammogram Yearly screening mammography is recommended. Breast Density - Category B, scattered fibroglandular densities. A negative radiographic report should not delay biopsy if a dominant or clinically suspicious mass is present. Up to ten percent of cancers are not identified on mammography. A negative report may reinforce clinical impression. Adenosis and dense breasts may obscure an underlying neoplasm. False positive reports average 6 to 10%. Patient will receive a letter notifying them of these results.
== END 2024-05-31 02:23 ==
LOC: DI 02:03
PROVIDERS: PCP Family Medicine; Visit Provider Family Medicine
DX: Z12.31 Encounter for screening mammogram for malignant neoplasm of breast (principal); R92.323 Mammographic fibroglandular density, bilateral breasts
CPT/HCPCS: 77063; 77067

== ENCOUNTER 2024-12-14 15:15 | Outpatient (REF) | payer MEDICARE, SELFPAY ==
[2024-12-14 16:24] LABS: TSH (W/Ref FT4) 1.74 uIU/mL (0.36-3.74)
== END 2024-12-14 15:16 | disposition home or self-care (01) ==
LOC: NCHCN 15:15
PROVIDERS: PCP Family Medicine; Visit Provider Family Medicine
DX: E03.9 Hypothyroidism, unspecified (principal)
CPT/HCPCS: 84443

== ENCOUNTER 2025-01-21 16:03 | Emergency (ER) | payer MEDICARE, SELFPAY ==
[2025-01-21 16:13] VITALS: BP 124/75; PULSE 79; RESP 16; TEMP 36.3; O2SAT 96
== END 2025-01-21 18:19 ==
LOC: ER 18:04
PROVIDERS: PCP Family Medicine
DX: Z53.21 Procedure and treatment not carried out due to patient leaving prior to being seen by health care provider (principal)

== ENCOUNTER 2025-03-13 15:55 | Outpatient (REF) | payer MEDICARE, SELFPAY ==
[2025-03-13 21:48] LABS: HCT 39.8 % (36.0-46.0); HGB 13.0 g/dL (11.2-15.7); MCH 28.8 pg (27.0-33.0); MCHC 32.7 % (32.0-36.0); MCV 88 fL (80-95); MPV 10.1 fL (8.0-11.0); Platelet Count 294 10^3/uL (130-400); RBC 4.52 10^6/uL (3.93-5.22); RDW 12.6 % (11.7-14.6); RDW-SD 40.6 fL; WBC 5.17 10^3/uL (4.4-10.8)
[2025-03-13 22:08] LABS: Anion Gap 8.1 mmol/L (3-11); BUN 17 mg/dL (9-23); CO2 29.9 mmol/L (20.0-31.0); Calcium 9.5 mg/dL (8.3-10.6); Chloride 106 mmol/L (98-107); Glucose 85 mg/dL (74-106); Potassium 4.2 mmol/L (3.5-5.1); Sodium 144 mmol/L (136-145)
[2025-03-13 22:09] LABS: Folate 11.2 ng/mL (>5.38); Vitamin B12 576 pg/mL (211-911)
[2025-03-13 22:10] LABS: TSH (W/Ref FT4) 0.35 uIU/mL (0.55-4.78)
[2025-03-13 22:44] LABS: Microalb ug/mg Crea 6.2 ug/mg Cr
== END 2025-03-13 15:56 | disposition home or self-care (01) ==
LOC: NCHCN 15:55
PROVIDERS: PCP Family Medicine; Visit Provider Family Medicine
DX: E10.65 Type 1 diabetes mellitus with hyperglycemia (principal); R27.0 Ataxia, unspecified; E03.9 Hypothyroidism, unspecified; R29.6 Repeated falls
CPT/HCPCS: 80048; 85027; 82043; 82570; 82607; 82746; 84439; 84443